=== PATIENT | male | born 1985 | race Caucasian/White ===

== ENCOUNTER 2019-09-28 15:25 | Emergency (ER) | payer OTHER ==
[~2019-09-28] VITALS: Ht 175.3 cm; Wt 70.4 kg
--- OUTSIDE RECORDS SUMMARY | ~2019-09-28 | XMS | Encounter Summary ---
Demographics + + + | Address | [address] | | | [place] [address] | + + + | Home Phone | | + + + | Preferred Language | Unknown | + + + | Marital Status | Single | + + + | Rastafari Affiliation | [id number] | + + + | Race | Unknown | + + + | Ethnic Group | Unknown | + + + Author + + + | Author | [facility] | | | and [place] | + + + | Organization | [facility] | | | and [place] | + + + | Address | Unknown | + + + | Phone | Unavailable | + + + Support + + +---------+ + | Name | Relationship | Address | Phone | + + +---------+ + | Mayelin Burden | ECON | Unknown | | + + +---------+ + Care Team Providers + +------+ + | Care Material Analyst Name | Role | Phone | + +------+ + PCP | Unavailable | + +------+ + Encounter Details +--------+ + + + + | Date | Type | Department | Care Team | Description | +--------+ + + + + | 06/24/ | Imaging | [facility] | Provider, | | | 2019 | Exam | [facility] | [facility] [address] | | | | | IMAG[facility] [address] | [address] | | | | | [place] | [place] [address] | | | | | [place] [address] | | | | | | [phone] | | | +--------+ + + + + Social History + +-------+ +--------+------+ | Tobacco Use | Types | Packs/Day | Years | Date | | | | | Used | | + +-------+ +--------+------+ | Never Assessed | | | | | + +-------+ +--------+------+ + + + | Sex Assigned at | Date Recorded | | | | + + + | Not on file | | + + + documented as of this encounter Plan of Treatment Not on filedocumented as of this encounter Procedures + +--------+ + + + | Procedure Name | Priori | Date/Time | Associated Diagnosis | Comments | | | ty | | | | + +--------+ + + + | ECHO COMPLETE | Routin | 04/11/2016 | | Results for this | | | e | 12:00 AM | | procedure are in the | | | | PST | | results section. | + +--------+ + + + documented in this encounter Results ECHO Complete (04/11/2016 12:00 AM PST) + + | Specimen | + + | | + + + + + | Narrative | Performed At | + + + | External films for comparison only | [facility] | | | | | No results will be in the chart. | | + + + + +---------+ + + | Performing | Address | City/State/Zipcode | Phone Number | | Organization | | | | + +---------+ + + | [facility] | | | | + +---------+ + + documented in this encounter Visit Diagnoses Not on filedocumented in this encounter"
--- OUTSIDE RECORDS SUMMARY | ~2019-09-28 | XMS | Encounter Summary ---
Demographics + + + | Address | [address] | | | [place] [address] | + + + | Home Phone | | + + + | Preferred Language | Unknown | + + + | Marital Status | Single | + + + | Anabaptism Affiliation | 1013 | + + + | Race | Unknown | + + + | Ethnic Group | Unknown | + + + Author + + + | Author | [facility] | | | and [place] | + + + | Organization | [facility] | | | and [...] Team Providers + +------+ + | Care Hide And Skin Processing Worker Name | Role | Phone | + +------+ + PCP | Unavailable | + +------+ + Encounter Details +--------+ + + + + | Date | Type | Department | Care Team | Description | +--------+ + + + + | 04/11/ | Orders Only | [facility] | Tomas White, | | | 2016 | | CONVERSION [address] | MD [address] | | | | | [place] | [place] | | | | | [place] | [address] | | | | | [id number] | | | | | | [phone] | | | +--------+ + + + [...] + +--------+ + + + | ECHO INTERPRETATION | Routin | 04/11/2016 | | Results for this | | OF OUTSIDE FILMS | e | 1:23 PM | | procedure are in the | | | | PST | | results section. | + +--------+ + + + documented in this encounter Results ECHO Interpretation of Outside Films (04/11/2016 1:23 PM PST) + + | Specimen | + + | | + + + + + | Impressions | Performed At | + + + | 1. The left ventricle is normal in size, wall thickness and systolic | | | function EF 60--65%. 2. The right ventricle is moderately enlarged | | | with normal systolic function. 3. Small highly mobile echodense | | | oscilating mass attached to the septal leaflet of the tricuspid valve | | | consistent with vegetation. Severe eccentric tricuspid regurgitation | | | with mild pulmonary hypertension. 4. There is a trivial pericardial | | | effusion present. Patient has history of Tricuspid vegetation on | | | October of 2015, this appears to be smaller however clinical | | | correlation with blood cultures and repeat echo after appropriate | | | course of treatment is recommended. | | + + + + + + | Narrative | Performed At | + + + | Patient Name: YANG BURDEN Date of : 1985 | | | Performing Physician: Wei Combs | | | | | | ------REPORT ADDENDED------ INDICATIONS Bacteremia, | | | murmur CONCLUSIONS 1. The left ventricle is normal | | | in size, wall thickness and systolic function EF 60--65%. 2. The | | | right ventricle is moderately enlarged with normal systolic function. | | | 3. Small highly mobile echodense oscilating mass attached to the | | | septal leaflet of the tricuspid valve consistent with vegetation. | | | Severe eccentric tricuspid regurgitation with mild pulmonary | | | hypertension. 4. There is a trivial pericardial effusion present. 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 FINDINGS -------- ECG rhythm: Sinus rhythm. Study: | | | A 2-dimensional transthoracic echocardiogram with m-mode, spectral | | | and color flow Doppler was perfomed. Study: This was a technically | | | adequate study. Left Ventricle: Overall left ventricular systolic | | | function is normal with, an EF between 60 - 65 %. Left Ventricle: The | | | left ventricle cavity size is normal. Left Ventricle: Left | | | ventricular wall thickness is normal. Left Ventricle: No regional | | | wall motion abnormalities. Right Ventricle: The right ventricle is | | | moderately enlarged. Right Ventricle: The right ventricular systolic | | | function is normal. Left Atrium: The left atrial size is normal. | | | Right Atrium: The right atrium is mildly enlarged. Aortic Valve: The | | | aortic valve is trileaflet and appears structurally normal. Aortic | | | Valve: There is no evidence of aortic regurgitation. Aortic Valve: | | | There is no evidence of aortic stenosis. Mitral Valve: The mitral | | | valve is normal. Mitral Valve: There is trace mitral regurgitation. | | | Tricuspid Valve: Severe tricuspid regurgitation present. Tricuspid | | | Valve: There is mild pulmonary hypertension. Tricuspid Valve: The | | | right ventricular systolic pressure (pulmonary artery systolic | | | pressure), as measured by Doppler, is 45.93mmHg. Tricuspid Valve: | | | Small highly mobile echodense oscilating mass attached to the septal | | | leaflet of the tricuspid valve consistent with vegetation. Pulmonic | | | Valve: The pulmonic valve is normal. Pulmonic Valve: Trace pulmonic | | | regurgitation. Pericardium: There is a trivial pericardial effusion | | | present. Pericardium: No pleural effusion seen. IVC/Hepatic Veins: | | | The IVC is normal size (1.5-2.5cm) and collapses >50% with sniff, | | | consistent with central venous pressures of 5-10mmHg. Aorta: The | | | aortic root and ascending aorta are within normal limits. | | | MEASUREMENTS Ao asc: 3.05 cm Ao Diam: 3.26 cm | | | Ao sinus: 3.[address] junct: 2.55 cm IVC: 2.13 cm LA | | | Diam: 3.30 cm LA Major: 4.50 cm EDV(Teich): 115.58 ml | | | IVSd: 0.54 cm LVIDd: 4.95 cm LVPWd: 0.72 cm LVOT Area: | | | 3.72 cm2 LVOT Diam: 2.17 cm %FS: 33.94 % EF(Teich): 62.64 | | | % ESV(Teich): 43.17 ml LVIDs: 3.27 cm SV(Teich): 72.40 ml | | | RA Major: 5.38 cm RV Major: 8.18 cm RV Minor: 4.34 cm | | | RVIDd: 3.92 cm LVEF MOD A2C: 66.27 % SV MOD A2C: 69.71 ml | | | LVEF MOD A4C: 58.01 % SV MOD A4C: 57.63 ml EF Biplane: | | | 62.53 % LVEDV MOD BP: 102.49 ml LVESV MOD BP: 38.39 ml LVEDV | | | MOD A2C: 105.18 ml LVLd A2C: 8.45 cm LVEDV MOD A4C: 99.35 | | | ml LVLd A4C: 8.39 cm LVESV MOD A2C: 35.47 ml LVLs A2C: | | | 6.90 cm LVESV MOD A4C: 41.71 ml LVLs A4C: 6.89 cm LAESV(A-L): | | | 33.72 ml LAESV Index (A-L): 18.73 ml/m2 LAAs A2C: 12.96 | | | cm2 LAESV A-L A2C: 33.43 ml LALs A2C: 4.26 cm LAAs A4C: | | | 13.07 cm2 LAESV A-L A4C: 30.72 ml LALs A4C: 4.72 cm RAAs: | | | 20.26 cm2 RAESV A-L: 64.77 ml RAESV MOD: 60.16 ml RALs: | | | 5.38 cm TAPSE: 2.60 cm AV maxP.44 mmHg AV meanP.97 | | | mmHg AV Vmax: 1.16 m/s AV Vmean: 0.81 m/s AV VTI: 20.70 | | | cm MAGUI Vmax: 3.17 cm2 MAGUI (VTI): 3.19 cm2 AVAI Vmax: 0.00 | | | cm2/m2 AVAI (VTI): 0.00 cm2/m2 LVOT maxP.93 mmHg LVOT | | | meanP.02 mmHg LVSI Dopp: 36.76 ml/m2 LVSV Dopp: 66.18 | | | ml LVOT Vmax: 0.99 m/s LVOT Vmean: 0.65 m/s LVOT VTI: | | | 17.74 cm MV A Reid: 0.48 m/s MV DecT: 177.04 ms MV E Reid: | | | 0.81 m/s MV E/A Ratio: 1.69 MV PHT: 51.34 ms MVA By PHT: | | | 4.28 cm2 Septal e': 0.12 m/s Septal E/e': 6.30 Lateral e': | | | 0.19 m/s Lateral E/e': 4.14 RAP: 5 mmHg RVSP: 45.92 mmHg | | | TR maxP.92 mmHg TR Vmax: 3.19 m/s Journeyman Pipefitter: JOLIE | | | Authenticated by: [facility] Report Date/Time: 04-11-2016 | | | 20:44:47 | | + + + + + | Procedure Note | + + | Elmer, Rad Conversion - 11/08/2018 7:43 PM PDT Patient Name: Kim BURDEN of | | : 1985 Performing Physician: Wei | | [place] ------REPORT | | ADDENDED------INDICATIONS Bacteremia, murmur CONCLUSIONS 1. The left | | ventricle is normal in size, wall thickness and systolic function EF 60--65%.2. The | | right ventricle is moderately enlarged with normal systolic function.3. Small highly | | mobile echodense oscilating mass attached to the septal leaflet of the tricuspid valve | | consistent with vegetation. Severe eccentric tricuspid regurgitation with mild pulmonary | | hypertension.4. There is a trivial pericardial effusion present. Patient has history | | of Tricuspid vegetation on October of 2015, this appears to be smaller however clinical | | correlation with blood cultures and repeat echo after appropriate course of treatment is | | recommended. FINDINGS--------ECG rhythm: Sinus rhythm.Study: A 2-dimensional | | transthoracic echocardiogram with m-mode, spectral and color flow Doppler was | | perfomed.Study: This was a technically adequate study.Left Ventricle: Overall left | | ventricular systolic function is normal with, an EF between 60 - 65 %.Left Ventricle: | | The left ventricle cavity size is normal.Left Ventricle: Left ventricular wall thickness | | is normal.Left Ventricle: No regional wall motion abnormalities.Right Ventricle: The | | right ventricle is moderately enlarged.Right Ventricle: The right ventricular systolic | | function is normal.Left Atrium: The left atrial size is normal.Right Atrium: The right | | atrium is mildly enlarged.Aortic Valve: The aortic valve is trileaflet and appears | | structurally normal.Aortic Valve: There is no evidence of aortic regurgitation.Aortic | | Valve: There is no evidence of aortic stenosis.Mitral Valve: The mitral valve is | | normal.Mitral Valve: There is trace mitral regurgitation.Tricuspid Valve: Severe | | tricuspid regurgitation present.Tricuspid Valve: There is mild pulmonary | | hypertension.Tricuspid Valve: The right ventricular systolic pressure (pulmonary artery | | systolic pressure), as measured by Doppler, is 45.93mmHg.Tricuspid Valve: Small highly | | mobile echodense oscilating mass attached to the septal leaflet of the tricuspid valve | | consistent with vegetation.Pulmonic Valve: The pulmonic valve is normal.Pulmonic Valve: | | Trace pulmonic regurgitation.Pericardium: There is a trivial pericardial effusion | | present.Pericardium: No pleural effusion seen.IVC/Hepatic Veins: The IVC is normal size | | (1.5-2.5cm) and collapses >50% with sniff, consistent with central venous pressures of | | 5-10mmHg.Aorta: The aortic root and ascending aorta are within normal limits. | | MEASUREMENTS Ao asc: 3.05 cmAo Diam: 3.26 cmAo sinus: 3.[address] | | junct: 2.55 cmIVC: 2.13 cmLA Diam: 3.30 cmLA Major: 4.50 cmEDV(Teich): 115.58 | | mlIVSd: 0.54 cmLVIDd: 4.95 cmLVPWd: 0.72 cmLVOT Area: 3.72 [id number] Diam: 2.17 | | cm%FS: 33.94 %EF(Teich): 62.64 %ESV(Teich): 43.17 mlLVIDs: 3.27 cmSV(Teich): | | 72.40 mlRA Major: 5.38 cmRV Major: 8.18 cmRV Minor: 4.34 cmRVIDd: 3.92 cmLVEF | | MOD A2C: 66.27 %SV MOD A2C: 69.71 mlLVEF MOD A4C: 58.01 %SV MOD A4C: 57.63 mlEF | | Biplane: 62.53 %LVEDV MOD BP: 102.49 mlLVESV MOD BP: 38.39 mlLVEDV MOD A2C: | | 105.18 mlLVLd A2C: 8.45 cmLVEDV MOD A4C: 99.35 mlLVLd A4C: 8.39 cmLVESV MOD A2C: | | 35.47 mlLVLs A2C: 6.90 cmLVESV MOD A4C: 41.71 mlLVLs A4C: 6.89 cmLAESV(A-L): | | 33.72 mlLAESV Index (A-L): 18.73 ml/m2LAAs A2C: 12.96 [id number] A-L A2C: 33.43 | | mlLALs A2C: 4.26 cmLAAs A4C: 13.07 [id number] A-L A4C: 30.72 mlLALs A4C: 4.72 | | cmRAAs: 20.26 [id number] A-L: 64.77 mlRAESV MOD: 60.16 mlRALs: 5.38 cmTAPSE: | | 2.60 cmAV maxP.44 mmHgAV meanP.97 mmHgAV Vmax: 1.16 m/Sofiya Vmean: 0.81 | | m/Sofiya VTI: 20.70 cmAVA Vmax: 3.17 cm2AVA (VTI): 3.19 [id number] Vmax: 0.00 | | cm2/m2AVAI (VTI): 0.00 cm2/m2LVOT maxP.93 mmHgLVOT meanP.02 mmHgLVSI Dopp: | | 36.76 ml/m2LVSV Dopp: 66.18 mlLVOT Vmax: 0.99 m/sLVOT Vmean: 0.65 m/sLVOT VTI: | | 17.74 cmMV A Reid: 0.48 m/sMV DecT: 177.04 msMV E Reid: 0.81 m/sMV E/A Ratio: | | 1.69MV PHT: 51.34 msMVA By PHT: 4.28 [id number] e': 0.12 m/sSeptal E/e': | | 6.30Lateral e': 0.19 m/sLateral E/e': 4.14RAP: 5 mmHgRVSP: 45.92 mmHgTR maxPG: | | 40.92 mmHgTR Vmax: 3.19 m/s Journeyman Pipefitter: Miloted by: Wei Graham | | Date/Time: 04-11-2016 20:44:47 IMPRESSION: 1. The left ventricle is normal in size, wall | | thickness and systolic function EF 60--65%.2. The right ventricle is moderately | | enlarged with normal systolic function.3. Small highly mobile echodense oscilating mass | | attached to the septal leaflet of the tricuspid valve consistent with vegetation. Severe | | eccentric tricuspid regurgitation with mild pulmonary hypertension.4. There is a | | trivial pericardial effusion present. Patient has history of Tricuspid vegetation on | | October of 2015, this appears to be smaller however clinical correlation with blood | | cultures and repeat echo after appropriate course of treatment is recommended. | |EDV(Teich): 115.58 ml | |IVSd: 0.54 cm | |LVIDd: 4.95 cm | |LVPWd: 0.72 cm | |LVOT Area: 3.72 cm2 | |LVOT Diam: 2.17 cm | |%FS: 33.94 % | |EF(Teich): 62.64 % | |ESV(Teich): 43.17 ml | |LVIDs: 3.27 cm | |SV(Teich): 72.40 ml | |RA Major: 5.38 cm | |RV Major: 8.18 cm | |RV Minor: 4.34 cm | |RVIDd: 3.92 cm | |LVEF MOD A2C: 66.27 % | |SV MOD A2C: 69.71 ml | |LVEF MOD A4C: 58.01 % | |SV MOD A4C: 57.63 ml | |EF Biplane: 62.53 % | |LVEDV MOD BP: 102.49 ml | |LVESV MOD BP: 38.39 ml | |LVEDV MOD A2C: 105.18 ml | |LVLd A2C: 8.45 cm | |LVEDV MOD A4C: 99.35 ml | |LVLd A4C: 8.39 cm | |LVESV MOD A2C: 35.47 ml | |LVLs A2C: 6.90 cm | |LVESV MOD A4C: 41.71 ml | |LVLs A4C: 6.89 cm | |LAESV(A-L): 33.72 ml | |LAESV Index (A-L): 18.73 ml/m2 | |LAAs A2C: 12.96 cm2 | |LAESV A-L A2C: 33.43 ml | |LALs A2C: 4.26 cm | |LAAs A4C: 13.07 cm2 | |LAESV A-L A4C: 30.72 ml | |LALs A4C: 4.72 cm | |RAAs: 20.26 cm2 | |RAESV A-L: 64.77 ml | |RAESV MOD: 60.16 ml | |RALs: 5.38 cm | |TAPSE: 2.60 cm | |AV maxP.44 mmHg | |AV meanP.97 mmHg | |AV Vmax: 1.16 m/s | |AV Vmean: 0.81 m/s | |AV VTI: 20.70 cm | |MAGUI Vmax: 3.17 cm2 | |MAGUI (VTI): 3.19 cm2 | |AVAI Vmax: 0.00 cm2/m2 | |AVAI (VTI): 0.00 cm2/m2 | |LVOT maxP.93 mmHg | |LVOT meanP.02 mmHg | |LVSI Dopp: 36.76 ml/m2 | |LVSV Dopp: 66.18 ml | |LVOT Vmax: 0.99 m/s | |LVOT Vmean: 0.65 m/s | |LVOT VTI: 17.74 cm | |MV A Reid: 0.48 m/s | |MV DecT: 177.04 ms | |MV E Erid: 0.81 m/s | |MV E/A Ratio: 1.69 | |MV PHT: 51.34 ms | |MVA By PHT: 4.28 cm2 | |Septal e': 0.12 m/s | |Septal E/e': 6.30 | |Lateral e': 0.19 m/s | |Lateral E/e': 4.14 | |RAP: 5 mmHg | |RVSP: 45.92 mmHg | |TR maxP.92 mmHg | |TR Vmax: 3.19 m/s | | | |Journeyman Pipefitter: JOLIE | |Authenticated by: Wei Combs | |Report Date/Time: 04-11-2016 20:44:47 | | | |IMPRESSION: | |1. The left ventricle is normal in size, wall thickness and systolic function EF 60--65%. | |2. The right ventricle is moderately enlarged with normal systolic function. | |3. Small highly mobile echodense oscilating mass attached to the septal leaflet of the tric uspid valve consistent with vegetation. Severe eccentric tricuspid regurgitation with mild p ulmonary hypertension. | |4. There is a trivial pericardial effusion present. Patient has history of Tricuspid veget ation on October of 2015, this appears to be smaller however clinical correlation with blood cultures and repeat echo after appropriate course of treatment is | |recommended. | + + documented in this encounter Visit Diagnoses Not on filedocumented in this encounter"
--- OUTSIDE RECORDS SUMMARY | ~2019-09-28 | XMS | Encounter Summary ---
Demographics + + + | Address | [address] | | | [place] [address] | + + + | Home Phone | | + + + | Preferred Language | Unknown | + + + | Marital Status | Single | + + + | Hindu Affiliation | 1013 | + + + | Race | Unknown | + + + | Ethnic Group | Unknown | + + + Author + + + | Author | [facility] | | | and [place] | + + + | Organization | [facility] | | | and [place] | + + + | Address | Unknown | + + + | Phone | Unavailable | + + + Support + + +---------+ + | Name | Relationship | Address | Phone | + + +---------+ + | Mayelin Ridley | ECON | Unknown | | + + +---------+ + Care Team Providers + +------+ + | Care Animal Bounty Hunter Name | Role | Phone | + +------+ + PCP | Unavailable | + +------+ + Encounter Details +--------+ + + + + | Date | Type | Department | Care Team | Description | +--------+ + + + + | 09/30/ | Hospital | [facility] | Ivan Munoz | Unknown cause of | | 2016 - | Encounter | [facility] | MD Laura [address] | injury; Acute septic | | | | CLINICAL DECISION | [address] [place], [place] | pulmonary embolism | | 11/12/ | | [address] [facility] | [id number] | without acute cor | | 2016 | | [place] | | pulmonale ([facility]); | | | | [phone] | | Heroin abuse; | | | | [phone] | | Hyposmolality and/or | | | | | | hyponatremia; | | | | | | Methamphetamine | | | | | | abuse; Moderate | | | | | | protein-calorie | | | | | | malnutrition ([facility]); | | | | | | Thrombocytopenia | | | | | | ([facility]); Tobacco | | | | | | abuse; Toxic | | | | | | metabolic | | | | | | encephalopathy; | | | | | | Acute septic | | | | | | pulmonary embolism | | | | | | with acute cor | | | | | | pulmonale ([facility]); | | | | | | Leukocytosis, | | | | | | unspecified type; | | | | | | Sepsis, due to | | | | | | unspecified organism | | | | | | ([facility]); | | | | | | Hallucination, | | | | | | visual; Pain; | | | | | | Pleural effusion, | | | | | | right; Sepsis due to | | | | | | Methicillin | | | | | | susceptible | | | | | | Staphylococcus | | | | | | aureus ([facility]); MARCEL | | | | | | (acute kidney | | | | | | injury) ([facility]); | | | | | | Pleural effusion on | | | | | | left; Acute | | | | | | respiratory failure | | | | | | with hypoxia ([facility]); | | | | | | Acute bacterial | | | | | | endocarditis | +--------+ + + + + Social [...] + + documented as of this encounter Last Filed Vital Signs + + + + + | Vital Sign | Reading | Time Taken | Comments | + + + + + | Blood Pressure | 142/98 | 11/13/2015 7:56 AM | | | | | PDT | | + + + + + | Pulse | 112 | 11/13/2015 7:56 AM | | | | | PDT | | + + + + + | Temperature | 36.4 C (97.5 F) | 11/13/2015 7:56 AM | | | | | PDT | | + + + + + | Respiratory Rate | 18 | 11/13/2015 7:56 AM | | | | | PDT | | + + + + + | Oxygen Saturation | - | - | | + + + + + | Inhaled Oxygen | - | - | | | Concentration | | | | + + + + + | Weight | 59 kg (130 lb 1.1 | 11/13/2015 7:56 AM | | | | oz) | PDT | | + + + + + | Height | 170.2 cm (5' 7") | 11/13/2015 7:56 AM | | | | | PDT | | + + + + + | Body Mass Index | 20.37 | 11/13/2015 7:56 AM | | | | | PDT | | + + + + + documented in this encounter Discharge Summaries Balta Li MD - 11/13/2015 9:10 AM PDTFormatting of this note might be different from th e yuriy. Discharge Summaries by Balta Li MD at 11/13/15909 Author: Balta Li MD Service: (none) Author Type: Physician Filed: 11/13/15947 Date of Service: 11/13/15909 Status: Signed Bisque Brusher: Balta Li MD (Physician) [facility] Service: Hospitalist Physician Discharge Summary Patient ID: Yang Ridley [id number] 30 y.o. 1985 Admit date: 10/01/2015 Discharge date and time: 11/13/2015 Admitting Physician: Carly Thomas DO Discharge Physician: Balta Li MD Consultants: Treatment Team: Consulting Physician: Gonzalez Bhardwaj MD Consulting Physician: Femi Vaughan MD Consulting Physician: Rodolfo Salguero MD Consulting Physician: Gill Way MD Admitting Provider: Carly Thomas DO Discharge Diagnoses: Principal Problem: Sepsis (HCC) Active Problems: Hyposmolality and/or hyponatremia MARCEL (acute kidney injury) (HCC) Leucocytosis Thrombocytopenia (HCC) Toxic metabolic encephalopathy Acute respiratory failure with hypoxia (HCC) Heroin abuse Methamphetamine abuse Tobacco abuse Acute septic pulmonary embolism (HCC) Acute infective endocarditis Moderate protein-calorie malnutrition (HCC) Hallucination, visual Severe protein-calorie malnutrition (HCC) Hoarseness The first problem in the assessment and plan below is a primary discharge diagnosis unless specifically stated otherwise. 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 Status post intubation. Initially needing pressors also had presentation with sev ere hyponatremia and worsening renal failure. Later on transferred to the medical floor but had more decompensation and had to be transferred back to ICU with need of dialysis and rein tubation. He finally stabilized and returned to hospitalists. He finished his course with IV methicillin for 42 days. Repeat echo shows stable vegetation mobile on the tricuspid valve. Patient was followed by ID throughout the hospital course. He also had significant agitation and suicidal ideation/hallucinations and was treated with IV Haldol, Seroquel, high doses. Also was treated with fentanyl and morphine for his withdr awal. He was seen by psychiatric. Patient improved in terms of his agitation. Denies any mor e suicidal thoughts. Psychiatry has cleared patient for discharge. Currently is on Seroquel and by mouth twice a day and will be so slowly tapering off in the next 2 weeks. He will be going to his sister's house and plans for outpatient physical therapy and drug rehabilitatio n. Does not need anymore clonazepam oral opiates. He has been counseled extensively about dr dread abrams and appears very motivated. Also , patient had hoarseness of voice after intubation, but he was everted by ENT that is negative for cord paralysis and patient improved significantly from that. He was seen by cardiothoracic surgery, Dr. Arias, the recommendation for medical manageme nt. Currently, patient will follow up with him in the clinic in a few weeks. I also discusse d the case with Dr. Darling from cardiology, who has graciously agreed to follow the patient in the clinic. Currently, patient is on metoprolol 200 mg by mouth twice a day with some tachy cardia of 100-105. Will continue with same and patient has been informed about returning theresa k to ER if any signs of congestive heart failure with shortness of breath, leg swelling, or fevers with cough. Patient will also follow with Dr. Way from [place]. Condition at discharge: stable as dictated above Primary discharge diagnosis: infective endocarditis of the tricuspid valve Disposition: * home Follow up: Gill Way MD [address] [facility] [id number] Schedule an appointment as soon as possible for a visit Quentin Darling MD [address] [facility] [address] Schedule an appointment as soon as possible for a visit Blanca Arias MD [address] [facility] [address] Schedule an appointment as soon as possible for a visit in 2 weeks Dictation and program proposals coordinator or software, Social Media Simplified, used which may contain error for similar s ounding words even after review. Personal communication requested for any clarification. Discharge Vitals: Filed Vitals: 11/12/15 1911 11/12/15 2349 11/13/15 0357 11/13/15 0754 BP: 127/82 113/74 130/92 142/98 Pulse: 119 103 93 112 Temp: 98.7 F (37.1 C) 98.2 F (36.8 C) 97.5 F (36.4 C) TempSrc: Oral Oral Oral Oral Resp: 18 18 Height: Weight: 59 kg (130 lb 1.1 oz) SpO2: 99% 99% 97% 100% Discharge Exam: GeneraPoorly nourishedhed. Psych: Alert and oriented x 3. Calm, cooperative. Cardiovascular: Regular rate and rhythm, systolic murmurs, no thrills. Normal PMI. Respiratory: Clear to auscultation, no wheezing or crackles, breathing non labored. Gastrointestinal: Soft, non-tender, non-distended, positive bowel sounds. No HSM. Musculoskeletal: left PICC line No edema in bilateral lower extremities. No joint swelling . Skin: Warm and dry, no rashes. Neck: No JVD, Trachea midline. Neurological: Non focal. Motor grossly intact. Secondary Discharge Diagnoses AND Other Medical History: Past Medical History Diagnosis Date Illicit drug use, continuous Past Surgical History Procedure Laterality Date Gum surgery A CHILD Significant Diagnostic Studies: Echo Cardiac Adult Limited 11/11/2015 Patient Name: YANG RIDLEY Date of : 1985 Performing Physician: Kitty Leger MD INDICATIONS f/u endocarditis CONCLUSIONS 1. Resti ng tachycardia (HR>100bpm). 2. A limited 2-dimensional transthoracic echocardiogram with mendez ited spectral and color flow Doppler was performed. 3. This was a technically adequate derrek dy. 4. Overall left ventricular systolic function is normal with, an EF between 65 - 70 %. 5 . The left ventricle cavity size is normal. 6. There is mild concentric left ventricular hyp ertrophy. 7. The right ventricle is normal in size. 8. The aortic valve is trileaflet, and a ppears anatomically normal. No aortic stenosis or regurgitation. 9. Normal appearing mitral valve. 10. There is trace mitral regurgitation. 11. Severe tricuspid regurgitation present. 12. Large, mobile vegetation attached to the septal tricuspid valve leaflet. 13. Pulmonic v alve appears structurally normal. 14. There is no pericardial effusion. 15. The IVC was not well visualized. FINDINGS -------- ECG rhythm: Resting tachycardia (HR>100bpm). Study: A li mited 2-dimensional transthoracic echocardiogram with limited spectral and color flow Dopple r was performed. Study: This was a technically adequate study. Left Ventricle: Overall le ft ventricular systolic function is normal with, an EF between 65 - 70 %. Left Ventricle: T he left ventricle cavity size is normal. Left Ventricle: There is mild concentric left vent ricular hypertrophy. Right Ventricle: The right ventricle is normal in size. Aortic Valve: T he aortic valve is trileaflet, and appears anatomically normal. No aortic stenosis or regurg itation. Mitral Valve: Normal appearing mitral valve. Mitral Valve: There is trace mitral regurgitation. Tricuspid Valve: Severe tricuspid regurgitation present. Tricuspid Valve: La rge, mobile vegetation attached to the septal tricuspid valve leaflet. Pulmonic Valve: Pulmo sherif valve appears structurally normal. Pericardium: There is no pericardial effusion. IVC/He patic Veins: The IVC was not well visualized. MEASUREMENTS EDV(Teich): 104. 70 ml IVSd: 1.10 cm LVIDd: 4.74 cm LVPWd: 1.11 cm %FS: 31.17 % EF(Teich): 58.88 % ESV(Teich): 43.05 ml IVSs: 1.27 cm LVIDs: 3.26 cm LVPWs: 1.64 cm SV(Teich): 61.65 ml TR maxP.68 mmHg TR Vmax: 3.22 m/s Under Trimmer: RAFAEL Authenticated by: Jarred carter MD Report Date/Time: 11-11-2015 17:42:18 11/11/2015 1. Resting tachycardia (HR>100bpm). 2. A limited 2-dimensional transthoracic ec hocardiogram with limited spectral and color flow Doppler was performed. 3. This was a alpa hnically adequate study. 4. Overall left ventricular systolic function is normal with, an EF between 65 - 70 %. 5. The left ventricle cavity size is normal. 6. There is mild concentric left ventricular hypertrophy. 7. The right ventricle is normal in size. 8. The aortic valve is trileaflet, and appears anatomically normal. No aortic stenosis or regurgitation. 9. Nor mal appearing mitral valve. 10. There is trace mitral regurgitation. 11. Severe tricuspid r egurgitation present. 12. Large, mobile vegetation attached to the septal tricuspid valve le aflet. 13. Pulmonic valve appears structurally normal. 14. There is no pericardial effusion. 15. The IVC was not well visualized. LABS: CBC: Lab Results Component Value Date WBC 13.43* 11/09/2015 RBC 2.63* 11/09/2015 HGB 7.5* 11/09/2015 HCT 23.4* 11/09/2015 MCV 89.0 11/09/2015 MCH 28.7 11/09/2015 MCHC 32.2 11/09/2015 RDW 55.6* 11/09/2015 PLT 460* 11/09/2015 MPV 7.0 11/09/2015 DIFFTYPE AUTOMATED 11/09/2015 CMP: Lab Results Component Value Date NA 140 11/09/2015 K 4.1 11/09/2015 CL 105 11/09/2015 CO2 27 11/09/2015 ANIONGAP 12 11/09/2015 GLUF 91 11/09/2015 BUN 7* 11/09/2015 CREATININE 0.7 11/09/2015 BCR 10 11/09/2015 CA 8.8 11/09/2015 PROT 6.7 10/31/2015 ALB 1.5* 10/31/2015 GLOB 5.2* 10/31/2015 BILITOT 0.9 10/31/2015 ALP 71 10/31/2015 AST 15 10/31/2015 ALT 20 10/31/2015 EGFR >60 11/09/2015 Albumin: Lab Results Component Value Date ALB 1.5* 10/31/2015 Magnesium: Lab Results Component Value Date MG 1.8 11/02/2015 Phosphorus: Lab Results Component Value Date PHOS 4.7 11/02/2015 PT/INR: Lab Results Component Value Date PROTIME DUPLICATE ORDER 10/19/2015 INR 1.1 10/19/2015 Troponin: Lab Results Component Value Date TROPONINI 0.064 10/19/2015 Last 3 Troponin: Lab Results Component Value Date TROPONINI 0.064 10/19/2015 TSH: Lab Results Component Value Date TSH 0.75 10/03/2015 Patient Instructions: Medication List START taking these medications clonazePAM 0.5 MG tablet QTY: 20 tablet Refills: 0 Commonly known as: KlonoPIN Take 1 tablet by mouth 2 (two) times daily as needed. metoprolol 100 MG tablet QTY: 120 tablet Refills: 0 Commonly known as: LOPRESSOR Take 2 tablets by mouth 2 (two) times daily. QUEtiapine 25 MG tablet QTY: 60 tablet Refills: 0 Commonly known as: SEROquel Take 4 tablets by mouth 2 (two) times daily. Take 100 mg twice a day for the next 4 days, t hen decrease to 50 mg twice a day for next 5 days, then decrease to 25 mg twice a day for ne xt 5 days and then can be stopped if doing well with agitation and anxiety. Where to Get Your Medications These are the prescriptions that you need to grape picker. You may get the following medications from any pharmacy - clonazePAM 0.5 MG tablet - metoprolol 100 MG tablet - QUEtiapine 25 MG tablet Activity: activity as tolerated Diet: Cardiac Diet Discharge took more than 35 minutes, to include final examination, discussion of admission, and preparation of prescriptions, instructions for ongoing care, follow up and dictation of summary. There are no Patient Instructions on file for this visit. Follow-up with PMD and other physicians as directed. Signed: Balta Li 11/13/2015 9:10 AM documented in this encou nter Progress Notes Conversion Transaction, Provider Unknown - 11/13/2015 9:57 AM PDTFormatting of this note m ight be different from the original. Nurse Progress Note by Mayelin Mendez RN at 11/13/15956 Author: Mayelin Mendez RN Service: (none) Author Type: Registered Nurse Filed: 11/13/1558 Date of Service: 11/13/15956 Status: Signed Bisque Brusher: Mayelin Mendez RN (Registered Nurse) Discharge instructions explained to patient and all questions answered. Pt prefers to take his own prescriptions to the pharmacy, originals sent with pt. Awaiting transportation with sister via personal vehicle. Mayelin Mendez RN onver patti Transaction, Provider Unknown - 11/13/2015 9:54 AM PDT Nurse Progress Note by Kaylee Holloway RN at 11/13/15953 Author: Kaylee Holloway RN Service: (none) Author Type: Registered Nurse Filed: 11/13/1555 Date of Service: 11/13/15953 Status: Signed Bisque Brusher: Kaylee Holloway RN (Registered Nurse) Pt discharged home with sister. Discharge instructions and prescriptions given. PICC line r emoved. Kaylee Holloway RN Gill Lowe MD - 11/13/2015 7:35 AM PDTFormatting of this note might be different from the or iginal. Progress Notes by Gill Way MD at 11/13/15734 Author: Gill Way MD Service: Infectious Disease Author Type: Physician Filed: 11/13/15817 Date of Service: 11/13/15734 Status: Signed Bisque Brusher: Gill Way MD (Physician) [facility] Service: Infectious Disease Progress Note Hospital Day: LOS: 43 days Post-Op Day: * No surgery found * SUBJECTIVE Reason for consult: Endocarditis Patient Summary: CC: Fever, chest pain and altered mental status From [facility] [employer] admission note on 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 male with significant history of tobacco and drug abuse using daily heroin and methamphetamine, also on Suboxone. He initially presented to [facility] for progressive weakness, lethargy, and ge neralized pain (mostly his chest, neck, back, knees, ankles and toes) for the past 7 days. H e noticed that his ankles and right knee were swollen but not warm or erythematous. Accordin g to his girlfriend, he has been feeling sick and febrile for the past week with poor PO int elisha. Yesterday, she noticed that he seemed like he was hallucinating and talking to himself. He was very weak today that she had to assist him to get into the car to go the the ED. Exam at OSH was significant for point tenderness at the area of the cervical spine and posi tive Kernig's sign. LP was performed to rule out meningitis. IV antibiotics started, ceftria xone 2 gm and vancomycin [address] head and C-spine x-ray performed, MRI attempted but patient decompensated and was intubated for respiratory failure and airway protection. Significant labs: Na 114 (1435 hrs), BUN 81, Crea 2.48, WBC 19.9, Hb 11.6, Plt 51, Tbili 3. 6, AST 188, ALT 155, LA 1.7. CSF: clear, colorless, WBC 0, RBC 3. Protein 31. Glucose 50. Culture no growth Blood cultures are reported to be growing GPCs at [facility] Transferred to [facility] for further care. MRI of brain and spine carried out with limited findi ngs due to non-contrast study. Evaluated by Nephrology, acute renal failure attributed to hemodynamics. Evaluated by Dr. Bhardwaj from orthopedics: Does not think patient has ankle septic joint and does not recomme nd surgical intervention. Echocardiogram showed moderate size mobile vegetation attached to the septal tricuspid valv e leaflet, moderate tricuspid regurgitation, moderate pulmonary hypertension with mildly enl arged right ventricle. Evaluated by CTS, surgery not recommended On 10/01, extubated On 10/02, he was transferred out of the ICU. On 10/04, patient had worsening mental status and also became tachypneic. He became more hy ponatremic with worsening renal function. Bilateral moderate sized pleural effusions were n oted on chest CT scan. Bedside ultrasound with bilateral pleural effusion, R>L. Left minimal and without echogenic ity suggestive of infectious pleural effusion. Left effusion is moderate with fibrin strands concerning for complicated/infectious pleural effusion. Right pig tail chest tube placed wi th purulent drainage. Head CT scan negative On 10/05, started on hemodialysis On October 08, left chest tube was placed. Reintubated on October 11. On 10/16-, patient was febrile to 101.4F. Blood cultures were sent. On 10/18, echocardiogram showed possible mobile vegetation at the posterior mitral valve leaf let along with known tricuspid valve vegetation. Right IJ hemodialysis catheter was placed. PICC was discontinued. He complained of abdominal pain and tenderness; CT scan was done salomon t showed mid to distal ileum and right colitis. On 10/19, transesophageal echocardiogram reported as showing no mitral vegetation with large, mobile vegetation at the tricuspid valve and severe tricuspid regurgitation. CT surgery ree valuated the patient; proceeding with medical management. Kidney biopsy done, c/w ATN, impro pina on continued nafcillin. Completed 6 weeks Nafcillin (11/11), baseline TTE shows persiste nt large tricuspid mobile echodensity and severe tricuspid regurge as last TTE. CTS aware, discussed with patient (Dr. Way) and need for f/u for future need of possible replacement. INTERVAL: Afebrile, VSS Finished IV nafcillin last night Slept well, excited to go home/sisters today Starting outpt drug rehab [place] Denies f/c/ns No soa, fong, orthopnea or edema No diarrhea No rash No issues with LUE PICC Scheduled Medications lidocaine Topical Daily metoprolol 200 mg Oral BID nafcillin 2 g Intravenous Q4H oxymetazoline 1 spray Each Nare Daily QUEtiapine 100 mg Oral BID sodium chloride 10 mL Intravenous 2 times per day Continuous Infusions PRN Medications acetaminophen, albuterol, aluminum-magnesium hydroxide-simethicone, benztropine mesylate, c lonazePAM, nvsnhqdoofDNAZU-ffetsr-rtlkausaj oral solution, haloperidol lactate, lip moisturi zer, LORazepam, morphine, morphine OR morphine OR morphine, ondansetron OR ondan setron, promethazine, simethicone, sodium chloride, sodium chloride, sodium chloride OBJECTIVE Vital Signs: BP 130/92 mmHg | Pulse 93 | Temp(Src) 98.2 F (36.8 C) (Oral) | Resp 18 | Ht 1.702 m (5' 7") | Wt 59 kg (130 lb 1.1 oz) | BMI 20.37 kg/m2 | SpO2 97% Temp: [97.5 F (36.4 C)-98.7 F (37.1 C)] 98.2 F (36.8 C) (11/12 356) BP: (113-134)/(74-94) 130/92 mmHg (11/12 356) Heart Rate: [93-119] 93 (11/12 356) Resp: [18-19] 18 (11/12 356) SpO2: [97 %-100 %] 97 % (11/12 356) Weight: [59 kg (130 lb 1.1 oz)] 59 kg (130 lb 1.1 oz) (11/12 356) Physical Exam Vitals reviewed. General: A&O, pleasant male, cooperative and in NAD H&N: no thrush ; conj not injected Lungs: CTAB CV: Normal rate, regular; apical systolic murmur present Abdomen: ND, NTTP Back: no spinous process pain cervical through lumbar Skin: No active rash; prior extensive rash at upper and lower extremities resolved/healing , livedo reticularis-type changes of both feet - no stigmata endocarditis MS: No synovitis/effusions of LE's or UE's Neurologic: Oriented x 3; generalized weakness noted Lines: LUE PICC - no adjacent erythema, induration, pain DATA CBC: Lab Results Component Value Date WBC 13.43* 11/09/2015 RBC 2.63* 11/09/2015 HGB 7.5* 11/09/2015 HCT 23.4* 11/09/2015 MCV 89.0 11/09/2015 MCH 28.7 11/09/2015 MCHC 32.2 11/09/2015 RDW 55.6* 11/09/2015 PLT 460* 11/09/2015 MPV 7.0 11/09/2015 DIFFTYPE AUTOMATED 11/09/2015 WBC: Lab Results Component Value Date WBC 13.43* 11/09/2015 NEUTABSMAN 8.12* 11/05/2015 NEUTROABS 10.89* 11/09/2015 NEUTROMAN 69 11/05/2015 LYMPHOABS 1.76 11/05/2015 LYMPHOMAN 15 11/05/2015 LYMPHSABS 1.19 11/09/2015 LYMPHOPCT 8.87 11/09/2015 MONOABSMAN 0.47 11/05/2015 MONOMAN 4 11/05/2015 MONOPCT 6.02 11/09/2015 EOSINOABS 1.06* 11/05/2015 EOSINOMAN 9 11/05/2015 EOSABS 0.41 11/09/2015 EOSPCT 3.06 11/09/2015 BASOSABS 0.13* 11/09/2015 BASOPCT 0.97 11/09/2015 PLTEST INCREASED 11/05/2015 BANDSPCT 3 11/05/2015 METAABS 0.26* 10/13/2015 METAPCT 1 10/13/2015 MYELOABS 0.17* 10/09/2015 MYELOPCT 1 10/09/2015 COMDIFF SLIDE SCANNED, AGREES WITH AUTOMATED RESULTS. 10/18/2015 CMP: Lab Results Component Value Date NA 140 11/09/2015 K 4.1 11/09/2015 CL 105 11/09/2015 CO2 27 11/09/2015 ANIONGAP 12 11/09/2015 GLUF 91 11/09/2015 BUN 7* 11/09/2015 CREATININE 0.7 11/09/2015 BCR 10 11/09/2015 CA 8.8 11/09/2015 PROT 6.7 10/31/2015 ALB 1.5* 10/31/2015 GLOB 5.2* 10/31/2015 BILITOT 0.9 10/31/2015 ALP 71 10/31/2015 AST 15 10/31/2015 ALT 20 10/31/2015 EGFR >60 11/09/2015 Lab Results Component Value Date CRP 1.9* 11/09/2015 Lab Results Component Value Date ESR 79* 11/09/2015 Microbiology data: 10/29 blood cultures with no growth 10/29 catheter tip culture with no growth 10/29 urine culture with less than 10,000 CFU per mL of gram-negative rods Radiology data: 10/01 TTE 1. LV size, wall thickness and systolic function are normal, with an EF of 60%. 2. The diastolic filling pattern indicates impaired relaxation consistent with mild dysfunc tion (Grade I). 3. The right ventricle is mildly enlarged, but right ventricular systolic function is dorothy l. 4. Moderate tricuspid regurgitation present. 5. There is moderate pulmonary hypertension. The right ventricular systolic pressure (p ulmonary artery systolic pressure), as measured by Doppler, is 50.27mmHg. 6. Moderate sized, mobile vegetation attached to the septal tricuspid valve leaflet. 11/10 TTE 1. Resting tachycardia (HR>100bpm). 2. A limited 2-dimensional transthoracic echocardiogram with limited spectral and color rayna w Doppler was performed. 3. This was a technically adequate study. 4. Overall left ventricular systolic function is normal with, an EF between 65 - 70 %. 5. The left ventricle cavity size is normal. 6. There is mild concentric left ventricular hypertrophy. 7. The right ventricle is normal in size. 8. The aortic valve is trileaflet, and appears anatomically normal. No aortic stenosis or r egurgitation. 9. Normal appearing mitral valve. 10. There is trace mitral regurgitation. 11. Severe tricuspid regurgitation present. 12. Large, mobile vegetation attached to the septal tricuspid valve leaflet. 13. Pulmonic valve appears structurally normal. 14. There is no pericardial effusion. 15. The IVC was not well visualized. 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 - 10/08 CT chest - continued pleural effusion on the left, chest tube placed and d/c'd. cx NG - 10/17, he was febrile so blood cultures repeated on 10/17 with no growth - 10/17 TTE - tricuspid valve vegetation, severe TR and a new mitral valve vegetation. ANITA showed no MV vegetation; Dr. Arias, CTS recommends to continue medical management. - 10/18 RUE PICC d/c'd on 10/18, catheter tip culture NG. Right IJ hemodialysis catheter remove d at this time. New PICC placed on 10/20 -When he became febrile, tachycardic and tachypneic on 10/29, antibiotics had been broadene d to IV vancomycin/Zosyn. No new blood culture growth. CXR shows stable findings. Mental st atus back to baseline. No new focus of infection. Transitioned back to IV nafcillin - 11/10 baseline TTE post-tx: persistent large mobile TV vegetation with severe TR, unchange d from last TTE 10/16 - CTS with recommendation for continued medical management - Make sure has f/u with CTS in few months given severe tricuspid regurge, instructed pt sh ould sx develop (FONG, PND, cough, edema) may be related to TR and also discussed need for ur gent reporting should systemic sx of infection arise, which he voiced understanding to -Finished 6 week course of IV nafcillin on 11/11 - Will see him back in ID clinic ~ 2 weeks - Provided contract information and instructed to call ID immediately should he develop any symptoms of recurrent IE or CHF - including fevers, chills, night sweats, dyspnea, orthopn ea, edema, back pain - which he voiced understanding to Acute hypoxemic respiratory failure - resolved Hallucinations - evaluated by psych, unrelated to nafcillin - resolved. MARCEL - / renal bx c/w ATN - resolved. Abnormal LFTs - resolved. Petechial/purpuric rash - probable ecthyma - resolved. IV drug use. Not candidate for outpatient IV abx. HIV, HCV and HBV serologies neg. Going to outpatient rehab following dc. Code Status: Full Code Gill Way MD 11/13/2015 onversio n Transaction, Provider Unknown - 11/13/2015 6:54 AM PDTFormatting of this note might be di fferent from the original. Nurse Progress Note by Apolonia Lamar RN at 11/13/15653 Author: Apolonia Lamar RN Service: (none) Author Type: Registered Nurse Filed: 11/13/15654 Date of Service: 11/13/15653 Status: Signed Bisque Brusher: Apolonia Lamar RN (Registered Nurse) Pt slept through the night. No barriers to discharge noticed. Continuing to monitor. Debo Lamar RN onver patti Transaction, Provider Unknown - 11/12/2015 6:42 PM PDT Nurse Progress Note by Kaylee Holloway RN at 11/12/151841 Author: Kaylee Holloway RN Service: (none) Author Type: Registered Nurse Filed: 11/12/151844 Date of Service: 11/12/151841 Status: Signed Bisque Brusher: Kaylee Holloway RN (Registered Nurse) Pt resting in bed quietly. Pt up walking around periodically throughout the day. No complai nts of pain. Pt hr is tachy but other VS stable. Pending dc tomorrow. Will continue to monit or. Kaylee Holloway RN Balta Mark MD - 11/12/2015 11:31 AM PDTFormatting of this note might be different from the origi nal. Progress Notes by Balta Li MD at 11/12/151130 Author: Balta Li MD Service: (none) Author Type: Physician Filed: 11/12/151133 Date of Service: 11/12/151130 Status: Signed Bisque Brusher: Balta Li MD (Physician) [facility] Service: Hospitalist Progress Note Hospital Day: LOS: 42 days Consultants: Treatment Team: Consulting Physician: Gonzalez Bhardwaj MD Consulting Physician: Femi Vaughan MD Consulting Physician: Rodolfo Salguero MD Consulting Physician: Gill Way MD Admitting Provider: Carly Thomas DO The first problem in assessment is the principal problem. Per Dr. Butterfield: 30-year-old male with past medical history of IV drug use including heroin, methamphetamine , who presented with weakness, was found to have infective endocarditis involving the tricus pid valve. Status post intubation. Initially needing pressors also had presentation with sev ere hyponatremia and worsening renal failure. Later on transferred to the medical floor but had more decompensation and had to be transferred back to ICU with need of dialysis and rein tubation. He finally stabilized and returned to hospitalists. He is continuing IV nafcillin for IE. He is not a candidate for PICC and couldn't be placed elsewhere. Now he is almost fi nished with abx, day 39 of . He has had sinus tachy, on metoprolol, otherwise hemodynamica lly stable. He has expressed suicidal ideation, hallucinations, anxiety. Psych has seen him. There is a plan to check into a rehab once he DC's home to sister's house. 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 CVT surgery eval'd and rec med management. Da . Dis cussed with ID about repeat echo. Will finish antibiotic course and monitor symptoms. From t hereon. Also will need CT surgery. Follow-up Sinus tachycardia Improved on metoprolol, 200 BID. Hallucinations, IVDA, anxiety, withdrawals Improved on Seroquel, Klonopin. Patient wants to try to taper medications as tolerated. On Klonopin to twice a day when necessary and Seroquel 100 twice a day. Currently patient denies any hallucinations, suicidal ideations or thoughts. Patient was se en by psychiatric. No more need of sitter or crisis evaluation. Toxic metabolic encephalopathy, sepsis, acute resp failure with hypoxia, ARF All sequelae of above and all improving at this point. Hoarseness & dysphagia Continue speech therapy. Was seen by ENT. No vocal cord paralysis Disposition: Home pending above. Code Status: Full Code Dictation and program proposals coordinator or software, Social Media Simplified, used which may contain error for similar s ounding words even after review. Personal communication requested for any clarification. SUBJECTIVE Events Overnight: *Overall stable He is very excited to go home. Denies any nausea, vomiti ng, shortness of breath. Did not need any Klonopin yesterday OBJECTIVE General: Well nourished. Psych: Alert and oriented x 3. Calm, cooperative. Cardiovascular: Regular rate and rhythm, no murmurs, no thrills. Normal PMI. Respiratory: Clear to auscultation, no wheezing or crackles, breathing non labored. Gastrointestinal: Soft, non-tender, non-distended, positive bowel sounds. No HSM. Musculoskeletal: No edema in bilateral lower extremities. No joint swelling. Neck: No JVD, Trachea midline. Neurological: Non focal. Motor grossly intact. PROBLEM LIST Principal Problem: Sepsis (HCC) Active Problems: Hyposmolality and/or hyponatremia MARCEL (acute kidney injury) (HCC) Leucocytosis Thrombocytopenia (HCC) Toxic metabolic encephalopathy Acute respiratory failure with hypoxia (HCC) Heroin abuse Methamphetamine abuse Tobacco abuse Acute septic pulmonary embolism (HCC) Acute infective endocarditis Moderate protein-calorie malnutrition (HCC) Hallucination, visual Severe protein-calorie malnutrition (HCC) Hoarseness PMH Past Medical History Diagnosis Date Illicit drug use, continuous HOME MEDICATIONS Prior to Admission medications Not on File DATA Vital Signs: BP 131/91 mmHg | Pulse 103 | Temp(Src) 97.5 F (36.4 C) (Oral) | Resp 18 | Ht 1.702 m (5 ' 7") | Wt 59.2 kg (130 lb 8.2 oz) | BMI 20.44 kg/m2 | SpO2 98% Filed Vitals: 11/11/15 2259 11/12/15 0321 11/12/15 0719 11/12/15 1121 BP: 115/77 137/95 134/93 131/91 Pulse: 98 97 109 103 Temp: 97.7 F (36.5 C) 97.8 F (36.6 C) 97.6 F (36.4 C) 97.5 F (36.4 C) TempSrc: Oral Oral Oral Oral Resp: 18 18 18 Height: Weight: 59.2 kg (130 lb 8.2 oz) SpO2: 99% 99% 99% 98% Intake/Output Summary (Last 24 hours) at 11/12/15 1131 Last data filed at 11/12/15 0719 Gross per 24 hour Intake 1080 ml Output 1250 ml Net -170 ml CBC: Lab Results Component Value Date WBC 13.43* 11/09/2015 RBC 2.63* 11/09/2015 HGB 7.5* 11/09/2015 HCT 23.4* 11/09/2015 MCV 89.0 11/09/2015 MCH 28.7 11/09/2015 MCHC 32.2 11/09/2015 RDW 55.6* 11/09/2015 PLT 460* 11/09/2015 MPV 7.0 11/09/2015 DIFFTYPE AUTOMATED 11/09/2015 CMP: Lab Results Component Value Date NA 140 11/09/2015 K 4.1 11/09/2015 CL 105 11/09/2015 CO2 27 11/09/2015 ANIONGAP 12 11/09/2015 GLUF 91 11/09/2015 BUN 7* 11/09/2015 CREATININE 0.7 11/09/2015 BCR 10 11/09/2015 CA 8.8 11/09/2015 PROT 6.7 10/31/2015 ALB 1.5* 10/31/2015 GLOB 5.2* 10/31/2015 BILITOT 0.9 10/31/2015 ALP 71 10/31/2015 AST 15 10/31/2015 ALT 20 10/31/2015 EGFR >60 11/09/2015 Magnesium: Lab Results Component Value Date MG 1.8 11/02/2015 Phosphorus: Lab Results Component Value Date PHOS 4.7 11/02/2015 PT/INR: Lab Results Component Value Date PROTIME DUPLICATE ORDER 10/19/2015 INR 1.1 10/19/2015 PTT: Lab Results Component Value Date APTT 27 10/19/2015 [APTT Imaging @IMAGES@ Scheduled Medications lidocaine Topical Daily metoprolol 200 mg Oral BID nafcillin 2 g Intravenous Q4H oxymetazoline 1 spray Each Nare Daily QUEtiapine 100 mg Oral BID sodium chloride 10 mL Intravenous 2 times per day Continuous Infusions PRN Medications acetaminophen, albuterol, aluminum-magnesium hydroxide-simethicone, benztropine mesylate, c lonazePAM, xciksmguzbFTYIR-dopxed-kohizquab oral solution, haloperidol lactate, lip moisturi zer, LORazepam, morphine, morphine OR morphine OR morphine, ondansetron OR ondan setron, promethazine, simethicone, sodium chloride, sodium chloride, sodium chloride Balta Li MD 11/12/201511:31 AM WarkGill MD - 7:44 AM PDT Progress Notes by Gill Way MD at 11/12/15 0744 Author: Gill Way MD Service: Infectious Disease Author Type: Physician Filed: 11/12/15 0953 Date of Service: 11/12/15 0744 Status: Signed Bisque Brusher: Gill Way MD (Physician) [facility] Service: Infectious Disease Progress Note Hospital Day: LOS: 42 days Post-Op Day: * No surgery found * SUBJECTIVE Reason for consult: Endocarditis Patient Summary: CC: Fever, chest pain and altered mental status From [facility] admission note on 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 male with significant history of tobacco and drug abuse using daily heroin and methamphetamine, also on Suboxone. He initially presented to [facility] for progressive weakness, lethargy, and ge neralized pain (mostly his chest, neck, back, knees, ankles and toes) for the past 7 days. H e noticed that his ankles and right knee were swollen but not warm or erythematous. Nessa g to his girlfriend, he has been feeling sick and febrile for the past week with poor PO int elisha. Yesterday, she noticed that he seemed like he was hallucinating and talking to himself. He was very weak today that she had to assist him to get into the car to go the the ED. Exam at OSH was significant for point tenderness at the area of the cervical spine and posi tive Kernig's sign. LP was performed to rule out meningitis. IV antibiotics started, ceftria xone 2 gm and vancomycin [address] head and C-spine x-ray performed, MRI attempted but patient decompensated and was intubated for respiratory failure and airway protection. Significant labs: Na 114 (1435 hrs), BUN 81, Crea 2.48, WBC 19.9, Hb 11.6, Plt 51, Tbili 3. 6, AST 188, ALT 155, LA 1.7. CSF: clear, colorless, WBC 0, RBC 3. Protein 31. Glucose 50. Culture no growth Blood cultures are reported to be growing GPCs at [facility] Transferred to [facility] for further care. MRI of brain and spine carried out with limited findi ngs due to non-contrast study. Evaluated by Nephrology, acute renal failure attributed to hemodynamics. Evaluated by Dr. Bhardwaj from orthopedics: Does not think patient has ankle septic joint and does not recomme nd surgical intervention. Echocardiogram showed moderate size mobile vegetation attached to the septal tricuspid valv e leaflet, moderate tricuspid regurgitation, moderate pulmonary hypertension with mildly enl arged right ventricle. Evaluated by CTS, surgery not recommended On 10/01, extubated On 10/02, he was transferred out of the ICU. On 10/04, patient had worsening mental status and also became tachypneic. He became more hy ponatremic with worsening renal function. Bilateral moderate sized pleural effusions were n oted on chest CT scan. Bedside ultrasound with bilateral pleural effusion, R>L. Left minimal and without echogenic ity suggestive of infectious pleural effusion. Left effusion is moderate with fibrin strands concerning for complicated/infectious pleural effusion. Right pig tail chest tube placed wi th purulent drainage. Head CT scan negative On 10/05, started on hemodialysis On October 08, left chest tube was placed. Reintubated on October 11. On 10/16-, patient was febrile to 101.4F. Blood cultures were sent. On 10/18, echocardiogram showed possible mobile vegetation at the posterior mitral valve leaf let along with known tricuspid valve vegetation. Right IJ hemodialysis catheter was placed. PICC was discontinued. He complained of abdominal pain and tenderness; CT scan was done salomon t showed mid to distal ileum and right colitis. On 10/19, transesophageal echocardiogram reported as showing no mitral vegetation with large, mobile vegetation at the tricuspid valve and severe tricuspid regurgitation. CT surgery ree valuated the patient; proceeding with medical management. Kidney biopsy done, c/w ATN, impro pina on continued nafcillin. Completed 6 weeks Nafcillin (11/11), baseline TTE shows persiste nt large tricuspid mobile echodensity and severe tricuspid regurge as last TTE. CTS aware, discussed with patient (Dr. Way) and need for f/u for future need of possible replacement. INTERVAL: Afebrile, VSS Completes IV abx today Plans are for rehab after dc No f/c/ns No SOA, FONG, orthopnea or PND No abd pain, no diarrhea No rash PICC line w/o pain or swelling Scheduled Medications lidocaine Topical Daily metoprolol 200 mg Oral BID nafcillin 2 g Intravenous Q4H oxymetazoline 1 spray Each Nare Daily QUEtiapine 100 mg Oral BID sodium chloride 10 mL Intravenous 2 times per day Continuous Infusions PRN Medications acetaminophen, albuterol, aluminum-magnesium hydroxide-simethicone, benztropine mesylate, c lonazePAM, uqpcteptamMUFCS-ldbyta-atyyzaprv oral solution, haloperidol lactate, lip moisturi zer, LORazepam, morphine, morphine OR morphine OR morphine, ondansetron OR ondan setron, promethazine, simethicone, sodium chloride, sodium chloride, sodium chloride OBJECTIVE Vital Signs: BP 134/93 mmHg | Pulse 109 | Temp(Src) 97.6 F (36.4 C) (Oral) | Resp 18 | Ht 1.702 m (5 ' 7") | Wt 59.2 kg (130 lb 8.2 oz) | BMI 20.44 kg/m2 | SpO2 99% Temp: [97.6 F (36.4 C)-98.2 F (36.8 C)] 97.6 F (36.4 C) (11/11 718) BP: (115-137)/(77-96) 134/93 mmHg (11/11 718) Heart Rate: [97-115] 109 (11/11 718) Resp: [18-20] 18 (11/11 718) SpO2: [99 %-100 %] 99 % (11/11 718) Weight: [59.2 kg (130 lb 8.2 oz)] 59.2 kg (130 lb 8.2 oz) (11/11 032) Physical Exam Vitals reviewed. General: A&O, pleasant male, cooperative and in NAD H&N: no thrush Lungs: CTAB CV: Normal rate, regular; apical systolic murmur present Abdomen: ND, NTTP Back: no spinous process pain cervical through lumbar Skin: No active rash; prior extensive rash at upper and lower extremities resolved/healing , livedo reticularis-type changes of both feet - no stigmata endocarditis MS: No synovitis/effusions of LE's or UE's Neurologic: Oriented x 3; generalized weakness noted Lines: LUE PICC - no adjacent erythema, induration, pain DATA CBC: Lab Results Component Value Date WBC 13.43* 11/09/2015 RBC 2.63* 11/09/2015 HGB 7.5* 11/09/2015 HCT 23.4* 11/09/2015 MCV 89.0 11/09/2015 MCH 28.7 11/09/2015 MCHC 32.2 11/09/2015 RDW 55.6* 11/09/2015 PLT 460* 11/09/2015 MPV 7.0 11/09/2015 DIFFTYPE AUTOMATED 11/09/2015 WBC: Lab Results Component Value Date WBC 13.43* 11/09/2015 NEUTABSMAN 8.12* 11/05/2015 NEUTROABS 10.89* 11/09/2015 NEUTROMAN 69 11/05/2015 LYMPHOABS 1.76 11/05/2015 LYMPHOMAN 15 11/05/2015 LYMPHSABS 1.19 11/09/2015 LYMPHOPCT 8.87 11/09/2015 MONOABSMAN 0.47 11/05/2015 MONOMAN 4 11/05/2015 MONOPCT 6.02 11/09/2015 EOSINOABS 1.06* 11/05/2015 EOSINOMAN 9 11/05/2015 EOSABS 0.41 11/09/2015 EOSPCT 3.06 11/09/2015 BASOSABS 0.13* 11/09/2015 BASOPCT 0.97 11/09/2015 PLTEST INCREASED 11/05/2015 BANDSPCT 3 11/05/2015 METAABS 0.26* 10/13/2015 METAPCT 1 10/13/2015 MYELOABS 0.17* 10/09/2015 MYELOPCT 1 10/09/2015 COMDIFF SLIDE SCANNED, AGREES WITH AUTOMATED RESULTS. 10/18/2015 CMP: Lab Results Component Value Date NA 140 11/09/2015 K 4.1 11/09/2015 CL 105 11/09/2015 CO2 27 11/09/2015 ANIONGAP 12 11/09/2015 GLUF 91 11/09/2015 BUN 7* 11/09/2015 CREATININE 0.7 11/09/2015 BCR 10 11/09/2015 CA 8.8 11/09/2015 PROT 6.7 10/31/2015 ALB 1.5* 10/31/2015 GLOB 5.2* 10/31/2015 BILITOT 0.9 10/31/2015 ALP 71 10/31/2015 AST 15 10/31/2015 ALT 20 10/31/2015 EGFR >60 11/09/2015 Lab Results Component Value Date CRP 1.9* 11/09/2015 Lab Results Component Value Date ESR 79* 11/09/2015 Microbiology data: 10/29 blood cultures with no growth 10/29 catheter tip culture with no growth 10/29 urine culture with less than 10,000 CFU per mL of gram-negative rods Radiology data: 10/01 TTE 1. LV size, wall thickness and systolic function are normal, with an EF of 60%. 2. The diastolic filling pattern indicates impaired relaxation consistent with mild dysfunc tion (Grade I). 3. The right ventricle is mildly enlarged, but right ventricular systolic function is dorothy l. 4. Moderate tricuspid regurgitation present. 5. There is moderate pulmonary hypertension. The right ventricular systolic pressure (p ulmonary artery systolic pressure), as measured by Doppler, is 50.27mmHg. 6. Moderate sized, mobile vegetation attached to the septal tricuspid valve leaflet. 11/10 TTE 1. Resting tachycardia (HR>100bpm). 2. A limited 2-dimensional transthoracic echocardiogram with limited spectral and color rayna w Doppler was performed. 3. This was a technically adequate study. 4. Overall left ventricular systolic function is normal with, an EF between 65 - 70 %. 5. The left ventricle cavity size is normal. 6. There is mild concentric left ventricular hypertrophy. 7. The right ventricle is normal in size. 8. The aortic valve is trileaflet, and appears anatomically normal. No aortic stenosis or r egurgitation. 9. Normal appearing mitral valve. 10. There is trace mitral regurgitation. 11. Severe tricuspid regurgitation present. 12. Large, mobile vegetation attached to the septal tricuspid valve leaflet. 13. Pulmonic valve appears structurally normal. 14. There is no pericardial effusion. 15. The IVC was not well visualized. PROBLEM LIST Principal Problem: Sepsis (HCC) Active Problems: Hyposmolality and/or hyponatremia MARCEL (acute kidney injury) (HCC) Leucocytosis Thrombocytopenia (HCC) Toxic metabolic encephalopathy Acute respiratory failure with hypoxia (HCC) Heroin abuse Methamphetamine abuse Tobacco abuse Acute septic pulmonary embolism (HCC) Acute infective endocarditis Moderate protein-calorie malnutrition ([facility]) Hallucination, visual Severe protein-calorie malnutrition ([facility]) Hoarseness ASSESSMENT & PLAN MSSA septicemia, tricuspid valve endocarditis - MSSA bacteremia ([facility]), tricuspid valve endocarditis with septic pulmonary embol i related to IV drug use - 10/01 MRI brain and cervical to lumbar spine: no evidence of infection -> neck/back pain resolved - No evidence of septic arthritis; evaluated by orthopedics - Blood cultures on admission here have no growth. - 10/08 CT chest - continued pleural effusion on the left, chest tube placed and d/c'd. cx NG - 10/17, he was febrile so blood cultures repeated on 10/17 with no growth - 10/17 TTE - tricuspid valve vegetation, severe TR and a new mitral valve vegetation. ANITA showed no MV vegetation; Dr. Arias, CTS recommends to continue medical management. - 10/18 RUE PICC d/c'd on 10/18, catheter tip culture NG. Right IJ hemodialysis catheter remove d at this time. New PICC placed on 10/20 -When he became febrile, tachycardic and tachypneic on 10/29, antibiotics had been broadene d to IV vancomycin/Zosyn. No new blood culture growth. CXR shows stable findings. Mental st atus back to baseline. No new focus of infection. Transitioned back to IV nafcillin - 11/10 baseline TTE post-tx: persistent large mobile TV vegetation with severe TR, unchange d from last TTE 10/16 - CTS with recommendation for continued medical management - Make sure has f/u with CTS in few months given severe tricuspid regurge, instructed pt sh ould sx develop (FONG, PND, cough, edema) may be related to TR and also discussed need for ur gent reporting should systemic sx of infection arise, which he voiced understanding to -Finishes IV nafcillin, day 42 of 42 (completes 11/11) - Will see him back in ID clinic ~ 2 weeks Acute hypoxemic respiratory failure - resolved Hallucinations - evaluated by psych, unrelated to nafcillin - resolved. MARCEL - 10/19 renal bx c/w ATN - resolved. Abnormal LFTs - resolved. Petechial/purpuric rash - probable ecthyma - resolved. IV drug use. Not candidate for outpatient IV abx. HIV, HCV and HBV serologies neg. Going to outpatient rehab following dc. Pt d/w Dr. Li Code Status: Full Code Gill Way MD 11/12/2015 onversio n Transaction, Provider Unknown - 11/11/2015 7:22 PM PDTFormatting of this note might be di fferent from the original. Progress Notes by Travis Santillan at 11/11/151921 Author: Travis Santillan Service: (none) Author Type: Filed: 11/11/151924 Date of Service: 11/11/151921 Status: Signed Bisque Brusher: Travis Santillan () Pt appears to be in good spirits and has shown improvement to the point that he will be goi ng to be discharged to his sisters home in the next two days. Pt says that he is going into rehab for his drug use when he gets home and that he has to make amends with people in his life. Prayed with pt. Microbiological Lab Technician was present at meeting with pt. Chaplain Kevin Balta Mark MD - 11/11/2015 2:14 PM PDTFormatting of this note might be different from the origi nal. Progress Notes by Balta Li MD at 11/11/15 4234 Author: Balta Li MD Service: (none) Author Type: Physician Filed: 11/11/15 1416 Date of Service: 11/11/151413 Status: Signed Bisque Brusher: Balta Li MD (Physician) [facility] Service: Hospitalist Progress Note Hospital Day: LOS: 41 days Consultants: Treatment Team: Consulting Physician: Gonzalez Bhardwaj MD Consulting Physician: Femi Vaughan MD Consulting Physician: Rodolfo Salguero MD Consulting Physician: Gill Way MD Admitting Provider: Carly Thomas DO The first problem in assessment is the principal problem. Per Dr. Butterfield: 30-year-old male with past medical history of IV drug use including heroin, methamphetamine , who presented with weakness, was found to have infective endocarditis involving the tricus pid valve. Status post intubation. Initially needing pressors also had presentation with sev ere hyponatremia and worsening renal failure. Later on transferred to the medical floor but had more decompensation and had to be transferred back to ICU with need of dialysis and rein tubation. He finally stabilized and returned to hospitalists. He is continuing IV nafcillin for IE. He is not a candidate for PICC and couldn't be placed elsewhere. Now he is almost fi nished with abx, day 39 of . He has had sinus tachy, on metoprolol, otherwise hemodynamica lly stable. He has expressed suicidal ideation, hallucinations, anxiety. Psych has seen him. There is a plan to check into a rehab once he DC's home to sister's house. 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 CVT surgery eval'd and rec med management. Da . Dis cussed with ID ordered for repeat echo. Sinus tachycardia Improved on metoprolol, 200 BID. Hallucinations, IVDA, anxiety, withdrawals Improved on Seroquel, Klonopin. Patient wants to try to taper medications as tolerated. We' ll decrease Klonopin to twice a day when necessary and Seroquel 100 twice a day. Currently patient denies any hallucinations, suicidal ideations or thoughts. Patient was se en by psychiatric. No more need of sitter or crisis evaluation. Toxic metabolic encephalopathy, sepsis, acute resp failure with hypoxia, ARF All sequelae of above and all improving at this point. Hoarseness & dysphagia Continue speech therapy. Was seen by ENT. No vocal cord paralysis Disposition: Home pending above. Code Status: Full Code Dictation and program proposals coordinator or software, Social Media Simplified, used which may contain error for similar s ounding words even after review. Personal communication requested for any clarification. SUBJECTIVE Events Overnight: *Overall stable needed 1 dose of lorazepam when necessary for anxiety. O therwise, no hallucinations or symptoms. OBJECTIVE General: Well nourished. Psych: Alert and oriented x 3. Calm, cooperative. Cardiovascular: Regular rate and rhythm, no murmurs, no thrills. Normal PMI. Respiratory: Clear to auscultation, no wheezing or crackles, breathing non labored. Gastrointestinal: Soft, non-tender, non-distended, positive bowel sounds. No HSM. Musculoskeletal: No edema in bilateral lower extremities. No joint swelling. Neck: No JVD, Trachea midline. Neurological: Non focal. Motor grossly intact. PROBLEM LIST Principal Problem: Sepsis (HCC) Active Problems: Hyposmolality and/or hyponatremia MARCEL (acute kidney injury) (HCC) Leucocytosis Thrombocytopenia (HCC) Toxic metabolic encephalopathy Acute respiratory failure with hypoxia (HCC) Heroin abuse Methamphetamine abuse Tobacco abuse Acute septic pulmonary embolism (HCC) Acute infective endocarditis Moderate protein-calorie malnutrition (HCC) Hallucination, visual Severe protein-calorie malnutrition (HCC) Hoarseness PMH Past Medical History Diagnosis Date Illicit drug use, continuous HOME MEDICATIONS Prior to Admission medications Not on File DATA Vital Signs: BP 124/89 mmHg | Pulse 111 | Temp(Src) 98.2 F (36.8 C) (Oral) | Resp 20 | Ht 1.702 m (5 ' 7") | Wt 59.775 kg (131 lb 12.5 oz) | BMI 20.63 kg/m2 | SpO2 99% Filed Vitals: 11/10/15 2331 11/11/15 0345 11/11/15 0735 11/11/15 1128 BP: 121/86 124/86 122/81 124/89 Pulse: 105 105 111 Temp: 98 F (36.7 C) 98.4 F (36.9 C) 98.4 F (36.9 C) 98.2 F (36.8 C) TempSrc: Oral Oral Oral Oral Resp: 18 20 20 20 Height: Weight: 59.775 kg (131 lb 12.5 oz) SpO2: 99% 99% 98% 99% Intake/Output Summary (Last 24 hours) at 11/11/15 1414 Last data filed at 11/11/15 0800 Gross per 24 hour Intake 2998 ml Output 1350 ml Net 1648 ml CBC: Lab Results Component Value Date WBC 13.43* 11/09/2015 RBC 2.63* 11/09/2015 HGB 7.5* 11/09/2015 HCT 23.4* 11/09/2015 MCV 89.0 11/09/2015 MCH 28.7 11/09/2015 MCHC 32.2 11/09/2015 RDW 55.6* 11/09/2015 PLT 460* 11/09/2015 MPV 7.0 11/09/2015 DIFFTYPE AUTOMATED 11/09/2015 CMP: Lab Results Component Value Date NA 140 11/09/2015 K 4.1 11/09/2015 CL 105 11/09/2015 CO2 27 11/09/2015 ANIONGAP 12 11/09/2015 GLUF 91 11/09/2015 BUN 7* 11/09/2015 CREATININE 0.7 11/09/2015 BCR 10 11/09/2015 CA 8.8 11/09/2015 PROT 6.7 10/31/2015 ALB 1.5* 10/31/2015 GLOB 5.2* 10/31/2015 BILITOT 0.9 10/31/2015 ALP 71 10/31/2015 AST 15 10/31/2015 ALT 20 10/31/2015 EGFR >60 11/09/2015 Magnesium: Lab Results Component Value Date MG 1.8 11/02/2015 Phosphorus: Lab Results Component Value Date PHOS 4.7 11/02/2015 PT/INR: Lab Results Component Value Date PROTIME DUPLICATE ORDER 10/19/2015 INR 1.1 10/19/2015 PTT: Lab Results Component Value Date APTT 27 10/19/2015 [APTT Imaging @IMAGES@ Scheduled Medications lidocaine Topical Daily metoprolol 200 mg Oral BID nafcillin 2 g Intravenous Q4H oxymetazoline 1 spray Each Nare Daily QUEtiapine 100 mg Oral BID sodium chloride 10 mL Intravenous 2 times per day Continuous Infusions PRN Medications acetaminophen, albuterol, aluminum-magnesium hydroxide-simethicone, benztropine mesylate, c lonazePAM, rljvojdkejJCSJG-njujqf-vpdlevovg oral solution, haloperidol lactate, lip moisturi zer, LORazepam, morphine, morphine OR morphine OR morphine, ondansetron OR ondan setron, promethazine, simethicone, sodium chloride, sodium chloride, sodium chloride Balta Li MD 11/11/20152:14 PM onversion Transaction, Provider Unknown - 11/11/2015 8:54 AM PDTFormatting of this note might be different from th e original. Therapy Progress Note by GISELA Lazaro at 11/11/15 0854 Author: GISELA Lazaro Service: (none) Author Type: Occupational Therapist Filed: 11/11/15 1011 Date of Service: 11/11/15 0854 Status: Addendum Bisque Brusher: GISELA Lazaro (Occupational Therapist) Related Notes: Original Note by GISELA Lazaro (Occupational Therapist) filed at 10/19 07/03 1006 11/11/15 0854 OT Last Visit OT Received On 11/11/15 Reason for Treatment Deconditioning Requires OT Follow Up Yes Assistance Required 1 person Skip Operator Needed No Family/Caregiver Present No Requires OT Follow Up Yes Precautions Other Precautions fall precautions Other Comments Comments Pt supine in bed upon OT arrival; pleasant and agreeable to OT tx. Performed cog a ssessment per request from intial evaluation. Pt scored 28/30 indicating cognition within no rmal limits. Grooming Grooming Comments performed prior to OT arrival standing at sink with no assistance or diff iculty. UE Bathing UE Bathing Comments Reported bathing just prior to OT arrival, standing with no assist othe r than supervision in step in shower. LE Bathing LE Bathing Comments Pt reported no difficulty UE Dressing UE Dressing Level of Assistance Independent UE Dressing Where Assessed (standing in room ) UE Dressing Comments Pt able to retrieve clothing from closet without loss of balance and d onn shirt independently LE Dressing LE Dressing Yes Pants Level of Assistance Independent Sock Level of Assistance Independent Shoe Level of Assistance Independent LE Dressing Where Assessed Other (Comment);Edge of bed (pants donned in shower room per report ) LE Dressing Comments donning/doffing shoes observed seated EOB Toileting Toileting Comments Pt indicates no assistance needed Tub Transfers Tub Transfer From (ambulating ) Tub Transfer Type To and From Tub Transfer to Standing Tub Transfer Technique Ambulating Tub Transfers Independent Tub Transfers Comments pt performed simulated tub/shower t/f with no assist or use of grab bars needed. Anticipate no difficulty with actual tub/shower t/f when bathing. Exercise Tools Exercise Tools Yes Theraputty Instructed on use of green theraputty for inc strength/manual dexterity. Pt repo rts his hands feel weaker than usual and were noted to be slightly shaky during pen/paper po rtion of cog assessment. Instructed pt to perform tputty exercises for 10 minutes 3x's throu ghout the day. Pt stated understanding and would benefit from handout of exercises for visua l reminder. Additional Activities Additional Activities Comments See Below for results of cognitve Assessment.Pt able to ambu late around hospital floor with no AD. Pt had minor LOB which he was able to self correct w ith distractions. Discussed observations and recommended limiting distractions while walking for dec fall risk. Pt stated understanding of education provided. Based on ADL and cognitiv e status OT anticipates pt to be safe to d/c from a functional performance standpoint to his sisters home with the plan of seeking substance abuse treatment in [place]. Pt requested continued OT during hospital stay to focus on UE strengthening and FMC. Activity Tolerance Activity Tolerance Patient tolerated treatment well Safety Devices Safety Devices in Place Yes Type of Devices 1:1 sitter Plan Treatment Interventions (Per OT POC ) Progress Progressing toward goals;Improving as expected Recommendation Recommendation (Sisters home; then substance abuse treatment program ) Equipment Recommended (none ) OT Ready for Discharge Yes BRENDEN COGNITIVE ASSESSMENT / [facility] - BLIND Version 7.1 Original Patient: Yang Ridley Date of Administration: 11/11/2015 Patient State: alert pleasant and cooperative Visuo-spatial/executive: Trailmakin/1 3D cube: 03/20 Clock: 05/20 Memory: No points are added to final score on memory subtest. First Trial: 07/22 Second Trial: 07/22 Attention: Digits: 04/21 Letters: 03/20 Serial 7: 03/22 Language: Repeat: 04/21 Fluency: 03/20 Abstraction: Similarity: 04/21 Delayed Recall: 4/ 5 Completed without ceing Orientation: 08/23 Total Score: 28/ 30 Classification: Normal Greater than or equal to 26/30 Assessment Comments: Formal assessment indicating cognition within normal limits appears co nsistent with observations throughout treatment session and during functional activities. Ex tra point given for less than [employer] level of education completed. The results of this assessment were reviewed with the patient Susannah Esquivel, OTR/L 11/11/2015 Focus of next session: UE strengthening/HEP and FMC/operator control room strength Gill Lowe MD - 11/11/2015 7:49 AM PDTFormatting of this note might be different from the or iginal. Progress Notes by Gill Way MD at 11/11/15 0749 Author: Gill Way MD Service: Infectious Disease Author Type: Physician Filed: 11/11/15 1002 Date of Service: 11/11/15 0749 Status: Signed Bisque Brusher: Gill Way MD (Physician) [facility] Service: Infectious Disease Progress Note Hospital Day: LOS: 41 days Post-Op Day: * No surgery found * SUBJECTIVE Reason for consult: Endocarditis Patient Summary: CC: Fever, chest pain and altered mental status From [employer] admission note on 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 male with significant history of tobacco and drug abuse using daily heroin and methamphetamine, also on Suboxone. He initially presented to [facility] for progressive weakness, lethargy, and ge neralized pain (mostly his chest, neck, back, knees, ankles and toes) for the past 7 days. H e noticed that his ankles and right knee were swollen but not warm or erythematous. Nessa g to his girlfriend, he has been feeling sick and febrile for the past week with poor PO int elisha. Yesterday, she noticed that he seemed like he was hallucinating and talking to himself. He was very weak today that she had to assist him to get into the car to go the the ED. Exam at OSH was significant for point tenderness at the area of the cervical spine and posi tive Kernig's sign. LP was performed to rule out meningitis. IV antibiotics started, ceftria xone 2 gm and vancomycin [address] head and C-spine x-ray performed, MRI attempted but patient decompensated and was intubated for respiratory failure and airway protection. Significant labs: Na 114 (1435 hrs), BUN 81, Crea 2.48, WBC 19.9, Hb 11.6, Plt 51, Tbili 3. 6, AST 188, ALT 155, LA 1.7. CSF: clear, colorless, WBC 0, RBC 3. Protein 31. Glucose 50. Culture no growth Blood cultures are reported to be growing GPCs at [facility] Transferred to [facility] for further care. MRI of brain and spine carried out with limited findi ngs due to non-contrast study. Evaluated by Nephrology, acute renal failure attributed to hemodynamics. Evaluated by Dr. Bhardwaj from orthopedics: Does not think patient has ankle septic joint and does not recomme nd surgical intervention. Echocardiogram showed moderate size mobile vegetation attached to the septal tricuspid valv e leaflet, moderate tricuspid regurgitation, moderate pulmonary hypertension with mildly enl arged right ventricle. Evaluated by CTS, surgery not recommended On 10/01, extubated On 10/02, he was transferred out of the ICU. On 10/04, patient had worsening mental status and also became tachypneic. He became more hy ponatremic with worsening renal function. Bilateral moderate sized pleural effusions were n oted on chest CT scan. Bedside ultrasound with bilateral pleural effusion, R>L. Left minimal and without echogenic ity suggestive of infectious pleural effusion. Left effusion is moderate with fibrin strands concerning for complicated/infectious pleural effusion. Right pig tail chest tube placed wi th purulent drainage. Head CT scan negative On 10/05, started on hemodialysis On October 08, left chest tube was placed. Reintubated on October 11. On 10/16-, patient was febrile to 101.4F. Blood cultures were sent. On 10/18, echocardiogram showed possible mobile vegetation at the posterior mitral valve leaf let along with known tricuspid valve vegetation. Right IJ hemodialysis catheter was placed. PICC was discontinued. He complained of abdominal pain and tenderness; CT scan was done salomon t showed mid to distal ileum and right colitis. On 10/19, transesophageal echocardiogram reported as showing no mitral vegetation with large, mobile vegetation at the tricuspid valve and severe tricuspid regurgitation. CT surgery ree valuated the patient; proceeding with medical management. Kidney biopsy done. INTERVAL: Afebrile, VSS Feeling well, no complaints No f/c/ns No back pain No soa, orthopnea or edema No abd pain or diarrhea No rash Scheduled Medications lidocaine Topical Daily metoprolol 200 mg Oral BID nafcillin 2 g Intravenous Q4H oxymetazoline 1 spray Each Nare Daily QUEtiapine 100 mg Oral BID sodium chloride 10 mL Intravenous 2 times per day Continuous Infusions PRN Medications acetaminophen, albuterol, aluminum-magnesium hydroxide-simethicone, benztropine mesylate, c lonazePAM, nlpqvrnpkvAVXFR-gqnbym-sryryufdb oral solution, haloperidol lactate, lip moisturi zer, LORazepam, morphine, morphine OR morphine OR morphine, ondansetron OR ondan setron, promethazine, simethicone, sodium chloride, sodium chloride, sodium chloride OBJECTIVE Vital Signs: BP 124/86 mmHg | Pulse 105 | Temp(Src) 98.4 F (36.9 C) (Oral) | Resp 20 | Ht 1.702 m (5 ' 7") | Wt 59.775 kg (131 lb 12.5 oz) | BMI 20.63 kg/m2 | SpO2 99% Temp: [97.5 F (36.4 C)-98.4 F (36.9 C)] 98.4 F (36.9 C) (11/10 344) BP: (121-126)/(82-93) 124/86 mmHg (11/10 344) Heart Rate: [101-120] 105 (11/10 344) Resp: [18-20] 20 (11/10 344) SpO2: [97 %-100 %] 99 % (11/10 344) Weight: [59.775 kg (131 lb 12.5 oz)] 59.775 kg (131 lb 12.5 oz) (11/10 344) Physical Exam Vitals reviewed. General: A&O, pleasant male, cooperative and in NAD H&N: no thrush Lungs: CTAB CV: Normal rate, regular; no murmur appreciated Abdomen: ND, NTTP Back: no spinous process pain cervical through lumbar Skin: No active rash; prior extensive rash at upper and lower extremities resolved/healing MS: No synovitis/effusions of LE's or UE's Neurologic: Oriented x 3; generalized weakness noted Lines: LUE PICC - no adjacent erythema, induration, pain DATA CBC: Lab Results Component Value Date WBC 13.43* 11/09/2015 RBC 2.63* 11/09/2015 HGB 7.5* 11/09/2015 HCT 23.4* 11/09/2015 MCV 89.0 11/09/2015 MCH 28.7 11/09/2015 MCHC 32.2 11/09/2015 RDW 55.6* 11/09/2015 PLT 460* 11/09/2015 MPV 7.0 11/09/2015 DIFFTYPE AUTOMATED 11/09/2015 WBC: Lab Results Component Value Date WBC 13.43* 11/09/2015 NEUTABSMAN 8.12* 11/05/2015 NEUTROABS 10.89* 11/09/2015 NEUTROMAN 69 11/05/2015 LYMPHOABS 1.76 11/05/2015 LYMPHOMAN 15 11/05/2015 LYMPHSABS 1.19 11/09/2015 LYMPHOPCT 8.87 11/09/2015 MONOABSMAN 0.47 11/05/2015 MONOMAN 4 11/05/2015 MONOPCT 6.02 11/09/2015 EOSINOABS 1.06* 11/05/2015 EOSINOMAN 9 11/05/2015 EOSABS 0.41 11/09/2015 EOSPCT 3.06 11/09/2015 BASOSABS 0.13* 11/09/2015 BASOPCT 0.97 11/09/2015 PLTEST INCREASED 11/05/2015 BANDSPCT 3 11/05/2015 METAABS 0.26* 10/13/2015 METAPCT 1 10/13/2015 MYELOABS 0.17* 10/09/2015 MYELOPCT 1 10/09/2015 COMDIFF SLIDE SCANNED, AGREES WITH AUTOMATED RESULTS. 10/18/2015 CMP: Lab Results Component Value Date NA 140 11/09/2015 K 4.1 11/09/2015 CL 105 11/09/2015 CO2 27 11/09/2015 ANIONGAP 12 11/09/2015 GLUF 91 11/09/2015 BUN 7* 11/09/2015 CREATININE 0.7 11/09/2015 BCR 10 11/09/2015 CA 8.8 11/09/2015 PROT 6.7 10/31/2015 ALB 1.5* 10/31/2015 GLOB 5.2* 10/31/2015 BILITOT 0.9 10/31/2015 ALP 71 10/31/2015 AST 15 10/31/2015 ALT 20 10/31/2015 EGFR >60 11/09/2015 Lab Results Component Value Date CRP 1.9* 11/09/2015 Lab Results Component Value Date ESR 79* 11/09/2015 Microbiology data: 10/29 blood cultures with no growth 10/29 catheter tip culture with no growth 10/29 urine culture with less than 10,000 CFU per mL of gram-negative rods Radiology data: Impression Left PICC tip in expected position. Bilateral nodularity consistent with septic emboli and multifocal infection. CHEST 1 VIEW [[id number]] PROBLEM LIST Principal Problem: Sepsis (HCC) Active Problems: Hyposmolality and/or hyponatremia MARCEL (acute kidney injury) (HCC) Leucocytosis Thrombocytopenia (HCC) Toxic metabolic encephalopathy Acute respiratory failure with hypoxia (HCC) Heroin abuse Methamphetamine abuse Tobacco abuse Acute septic pulmonary embolism (HCC) Acute infective endocarditis Moderate protein-calorie malnutrition (HCC) Hallucination, visual Severe protein-calorie malnutrition (HCC) Hoarseness ASSESSMENT & PLAN MSSA sepsis, tricuspid valve endocarditis -Patient has MSSA bacteremia, tricuspid valve endocarditis with septic pulmonary emboli re lated to IV drug use -Neck pain and back pain improved; noncontrast MRI of spine and brain on presentation show s no evidence of infection -No evidence of septic arthritis; evaluated by orthopedics -Blood cultures on admission here have no growth. -CT scan performed on October 08 confirmed continued pleural effusion on the left, chest tube placed and d/c'd. -On 10/17, he was febrile so blood cultures repeated on 10/17 with no growth. TTE showed tr icuspid valve vegetation and a new mitral valve vegetation. Transesophageal echocardiogram s howed no MV vegetation; Dr. Arias, CTS recommends to continue medical management. Right u pper extremity PICC d/c'd on 10/18, catheter tip culture with no growth. Right IJ hemodialysis catheter removed at this time. New PICC placed on 10/20 -When he became febrile, tachycardic and tachypneic on 10/29, antibiotics had been broadene d to IV vancomycin/Zosyn. No new blood culture growth. CXR shows stable findings. Mental st atus back to baseline. No new focus of infection. Transitioned back to IV nafcillin -continue IV nafcillin, day 41 of 42 - would repeat TTE so we have new baseline following tx Acute hypoxemic respiratory failure - resolved Hallucinations - resolved MARCEL - 8/2 renal bx c/w ATN - resolved. Abnormal LFTs - resolved Petechial/purpuric rash - probable ecthyma - resolved. IV drug use. Not candidate for outpatient IV abx. HIV negative. Code Status: Full Code Gill Way MD 11/11/2015 onversio n Transaction, Provider Unknown - 11/11/2015 4:49 AM PDTFormatting of this note might be di fferent from the original. Nurse Progress Note by Diana Maddox RN at 11/11/15448 Author: Diana Maddox RN Service: (none) Author Type: Registered Nurse Filed: 11/11/15 0451 Date of Service: 11/11/15448 Status: Signed Bisque Brusher: Diana Maddox RN (Registered Nurse) No c/o pain or discomfort during shift. HR still slightly tachy. Other VSS. Will continu e to monitor. DIANA MADDOX RN onver patti Transaction, Provider Unknown - 11/10/2015 2:06 PM PDT Case Management by Katharina Sparks RN at 11/10/15 9823 Author: Katharina Sparks RN Service: (none) Author Type: Registered Nurse Filed: 11/10/15 9075 Date of Service: 11/10/151405 Status: Signed Bisque Brusher: Katharina Sparks RN (Registered Nurse) RAFAEL العراقي with Susannah at [facility] [phone] regarding pt's d/c plan. Katharina Sparks RN Peri Eller, OTR/L - 11/10/2015 11:35 AM PDTFormatting of this note might be different from t he original. Therapy Progress Note by GISELA Tam at 11/10/15 3550 Author: GISELA Tam Service: (none) Author Type: Occupational Therapist Filed: 11/10/15 6866 Date of Service: 11/10/151134 Status: Signed Bisque Brusher: GISELA Tam (Occupational Therapist) 11/10/15 1138 OT Last Visit OT Received On 11/10/15 Reason for Treatment Deconditioning Requires OT Follow Up Yes Assistance Required 1 person Skip Operator Needed No Family/Caregiver Present No (sitter present for entire session) Requires OT Follow Up Yes Precautions Other Precautions fall precautions Other Comments Comments Pt supine in bed with sitter upon arrival and willing to participate in session th is AM. Pt moved to seated EOB with mod indep use of elevated HOB. Grooming Grooming Comments Pt. reported that he is able to complete grooming standing at the sink. Exercise Tools Exercise Tools Yes Theraband With orange tband pt. completed shoulder ab/adduction, elbow flexion/extension, s houlder er/ir for 10 reps and the 5 additional repts. Pt. completed finger squeezes with bal l. pt. tolerated exercises well however noted fatigue after first set. Pt. encouraged to com plete exercises thorughout the day 5-10 reps. Pt. noted understanding. Additional Activities Additional Activities Comments Pt transferred from seated EOB to seated in chair with super vision. Pt assisted to position table for lunch. Pt. left seated in chair with sitter presen t. Activity Tolerance Activity Tolerance Patient tolerated treatment well Safety Devices Safety Devices in Place Yes Type of Devices 1:1 sitter Plan Treatment Interventions (Per OT POC) Progress Progressing toward goals Recommendation Recommendation (Discharge to safe family home to complete IOP treatment) Equipment Recommended (defer at this time) OT Ready for Discharge Yes Education Completed: Education Topic: UE therapeutic exercise Completed with: Patient Completed by: Verbal Education, Demonstration Response to Education: Stated Understanding, Returned Demonstration, Reinforcement John butts for Education Understanding Occupational Therapy Plan: Continue OT treatment per POC The following recommendations are made for d/c planning at this time: (Discharge to safe family home to complete IOP treatment) Barriers to d/c at this time include: Home environment Equipment needs- continue to address pending progress Physical deficits impacting functional independence Balta Mark MD - 11/10/2015 10:42 AM PDT Progress Notes by Balta Li MD at 11/10/15 104 Author: Balta Li MD Service: (none) Author Type: Physician Filed: 11/10/15 1045 Date of Service: 11/10/151041 Status: Signed Bisque Brusher: Balta Li MD (Physician) [facility] Service: Hospitalist Progress Note Hospital Day: LOS: 40 days Consultants: Treatment Team: Consulting Physician: Gonzalez Bhardwaj MD Consulting Physician: Femi Vaughan MD Consulting Physician: Rodolfo Salguero MD Consulting Physician: Gill Way MD Admitting Provider: Carly Thomas DO The first problem in assessment is the principal problem. Per Dr. Butterfield: 30-year-old male with past medical history of IV drug use including heroin, methamphetamine , who presented with weakness, was found to have infective endocarditis involving the tricus pid valve. Status post intubation. Initially needing pressors also had presentation with sev ere hyponatremia and worsening renal failure. Later on transferred to the medical floor but had more decompensation and had to be transferred back to ICU with need of dialysis and rein tubation. He finally stabilized and returned to hospitalists. He is continuing IV nafcillin for IE. He is not a candidate for PICC and couldn't be placed elsewhere. Now he is almost fi nished with abx, day 39 . He has had sinus tachy, on metoprolol, otherwise hemodynamica lly stable. He has expressed suicidal ideation, hallucinations, anxiety. Psych has seen him. There is a plan to check into a rehab once he DC's home to sister's house. 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 CVT surgery eval'd and rec med management. Da . Sinus tachycardia Improved on metoprolol, monitor. Increase to 200 BID. Hallucinations, IVDA, anxiety, withdrawals Improved on Seroquel, Klonopin. Patient wants to try to taper medications as tolerated. We' ll decrease Klonopin to twice a day when necessary and Seroquel 200 twice a day. Currently patient denies any hallucinations, suicidal ideations or thoughts. Patient was se en by psychiatric the past with recommendation of possible consideration of rehabilitation v ersus inpatient psych. Currently, patient is undergoing home with his sister and following u p with detox facility. He also has a sitter at bedside. With order for repeat psychiatric evaluation for evaluation of need of sitter/suicidal thou ghts and other accommodations about discharge planning. Toxic metabolic encephalopathy, sepsis, acute resp failure with hypoxia, ARF All sequelae of above and all improving at this point. Hoarseness & dysphagia Continue speech therapy. Was seen by ENT. No vocal cord paralysis Disposition: Home pending above. Code Status: Full Code Dictation and program proposals coordinator or software, Social Media Simplified, used which may contain error for similar s ounding words even after review. Personal communication requested for any clarification. SUBJECTIVE Events Overnight: *Patient reports improves. Denies any nausea, vomiting, chest pain, shor tness of breath. No anxiety or hallucinations OBJECTIVE General: Well nourished. Psych: Alert and oriented x 3. Calm, cooperative. Cardiovascular: Regular rate and rhythm, no murmurs, no thrills. Normal PMI. Respiratory: Clear to auscultation, no wheezing or crackles, breathing non labored. Gastrointestinal: Soft, non-tender, non-distended, positive bowel sounds. No HSM. Musculoskeletal: No edema in bilateral lower extremities. No joint swelling. Neck: No JVD, Trachea midline. Neurological: Non focal. Motor grossly intact. PROBLEM LIST Principal Problem: Sepsis (HCC) Active Problems: Hyposmolality and/or hyponatremia MARCEL (acute kidney injury) (HCC) Leucocytosis Thrombocytopenia (HCC) Toxic metabolic encephalopathy Acute respiratory failure with hypoxia (HCC) Heroin abuse Methamphetamine abuse Tobacco abuse Acute septic pulmonary embolism (HCC) Acute infective endocarditis Moderate protein-calorie malnutrition (HCC) Hallucination, visual Severe protein-calorie malnutrition (HCC) Hoarseness PMH Past Medical History Diagnosis Date Illicit drug use, continuous HOME MEDICATIONS Prior to Admission medications Not on File DATA Vital Signs: BP 126/93 mmHg | Pulse 116 | Temp(Src) 97.5 F (36.4 C) (Oral) | Resp 20 | Ht 1.702 m (5 ' 7") | Wt 58.5 kg (128 lb 15.5 oz) | BMI 20.19 kg/m2 | SpO2 97% Filed Vitals: 11/09/15 2310 11/10/15 0251 11/10/15 0534 11/10/15 0806 BP: 127/94 122/87 126/93 Pulse: 104 101 116 Temp: 98 F (36.7 C) 97.8 F (36.6 C) 97.5 F (36.4 C) TempSrc: Oral Oral Oral Resp: 20 20 20 Height: Weight: 58.5 kg (128 lb 15.5 oz) SpO2: 99% 98% 97% Intake/Output Summary (Last 24 hours) at 11/10/15 1042 Last data filed at 11/10/15 0953 Gross per 24 hour Intake 1472 ml Output 1600 ml Net -128 ml CBC: Lab Results Component Value Date WBC 13.43* 11/09/2015 RBC 2.63* 11/09/2015 HGB 7.5* 11/09/2015 HCT 23.4* 11/09/2015 MCV 89.0 11/09/2015 MCH 28.7 11/09/2015 MCHC 32.2 11/09/2015 RDW 55.6* 11/09/2015 PLT 460* 11/09/2015 MPV 7.0 11/09/2015 DIFFTYPE AUTOMATED 11/09/2015 CMP: Lab Results Component Value Date NA 140 11/09/2015 K 4.1 11/09/2015 CL 105 11/09/2015 CO2 27 11/09/2015 ANIONGAP 12 11/09/2015 GLUF 91 11/09/2015 BUN 7* 11/09/2015 CREATININE 0.7 11/09/2015 BCR 10 11/09/2015 CA 8.8 11/09/2015 PROT 6.7 10/31/2015 ALB 1.5* 10/31/2015 GLOB 5.2* 10/31/2015 BILITOT 0.9 10/31/2015 ALP 71 10/31/2015 AST 15 10/31/2015 ALT 20 10/31/2015 EGFR >60 11/09/2015 Magnesium: Lab Results Component Value Date MG 1.8 11/02/2015 Phosphorus: Lab Results Component Value Date PHOS 4.7 11/02/2015 PT/INR: Lab Results Component Value Date PROTIME DUPLICATE ORDER 10/19/2015 INR 1.1 10/19/2015 PTT: Lab Results Component Value Date APTT 27 10/19/2015 [APTT Imaging @IMAGES@ Scheduled Medications lidocaine Topical Daily metoprolol 200 mg Oral BID nafcillin 2 g Intravenous Q4H oxymetazoline 1 spray Each Nare Daily QUEtiapine 100 mg Oral BID sodium chloride 10 mL Intravenous 2 times per day Continuous Infusions PRN Medications acetaminophen, albuterol, aluminum-magnesium hydroxide-simethicone, benztropine mesylate, c lonazePAM, asarvwkapfULMPO-rxtatx-ujooqiduy oral solution, haloperidol lactate, lip moisturi zer, LORazepam, morphine, morphine OR morphine OR morphine, ondansetron OR ondan setron, promethazine, simethicone, sodium chloride, sodium chloride, sodium chloride Balta Li MD 11/10/201510:42 AM onversion Transaction, Provider Unknown - 11/10/2015 4:45 AM PDTFormatting of this note might be different from th e original. Nurse Progress Note by Esteban Gotti RN at 11/10/15 7593 Author: Esteban Gotti RN Service: (none) Author Type: Registered Nurse Filed: 11/10/15 4206 Date of Service: 11/10/15444 Status: Addendum Bisque Brusher: Esteban Gotti RN (Registered Nurse) Related Notes: Original Note by Esteban Gotti RN (Registered Nurse) filed at 11/10/15 044 6 Patient is alert and oriented x4. Vital signs have been stable, no reports of pain or nause a. Patient has been cooperative and reports that he is anxious about going home. Sitter is a t bedside. No acute changes. Esteban Gotti RN onver patti Transaction, Provider Unknown - 11/09/2015 5:06 PM PDT Nurse Progress Note by Courtney Mosquera RN at [id number] Author: Courtney Mosquera RN Service: (none) Author Type: Registered Nurse Filed: 11/09/151707 Date of Service: 11/09/151705 Status: Signed Bisque Brusher: Courtney Mosquera RN (Registered Nurse) Pt alert and oriented. Sitter at bedside. Pt up with PT this shift. No complaints of pain. No acute changes from previous assessment. COURTNEY MOSQUERA RN rown, Prashanth Orozco DO - 11/09/2015 3:43 PM PDTFormatting of this note might be different from the [facility] ginal. Progress Notes by Prashanth Butterfield DO at 11/09/15 462 Author: Prashanth Butterfield DO Service: Hospitalist Author Type: Physician Filed: 11/09/151545 Date of Service: 11/09/151542 Status: Signed Bisque Brusher: Prashanth Butterfield DO (Physician) PROGRESS NOTE 11/09/2015 for Yang Ridley on the hospitalist service. 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 Status post intubation. Initially needing pressors also had presentation with sev ere hyponatremia and worsening renal failure. Later on transferred to the medical floor but had more decompensation and had to be transferred back to ICU with need of dialysis and rein tubation. He finally stabilized and returned to hospitalists. He is continuing IV nafcillin for IE. He is not a candidate for PICC and couldn't be placed elsewhere. Now he is almost fi nished with abx, day 39 of 42. He has had sinus tachy, on metoprolol, otherwise hemodynamica lly stable. He has expressed suicidal ideation, hallucinations, anxiety. Psych has seen him. There is a plan to check into a rehab once he DC's home to sister's house. 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 CVT surgery eval'd and rec med management. Sinus tachycardia Improved on metoprolol, monitor. Hallucinations, IVDA, anxiety, withdrawals Improved on Seroquel, Klonopin. Now patient c/o foggy mind and would like to decrease doses if possible. Will decrease Klonopin from tid to bid, and decrease Seroquel from 200 mg bid to 150 mg bid. Toxic metabolic encephalopathy, sepsis, acute resp failure with hypoxia, ARF All sequelae of above and all improving at this point. Hoarseness & dysphagia Continue speech therapy. Problem list: Principal Problem: Sepsis (HCC) Active Problems: Hyposmolality and/or hyponatremia MARCEL (acute kidney injury) (HCC) Leucocytosis Thrombocytopenia (HCC) Toxic metabolic encephalopathy Acute respiratory failure with hypoxia (HCC) Heroin abuse Methamphetamine abuse Tobacco abuse Acute septic pulmonary embolism (HCC) Acute infective endocarditis Moderate protein-calorie malnutrition (HCC) Hallucination, visual Severe protein-calorie malnutrition (HCC) Hoarseness Length of stay: 39 days DVT prophylaxis: SCD's Code status: full code Disposition: inpatient SUBJECTIVE Patient seen/examined sitting in bed, feeling better, went to gym, trying to get more activ e. OBJECTIVE Temp: [97.4 F (36.3 C)-98 F (36.7 C)] 97.9 F (36.6 C) (11/08 1153) BP: (125-139)/(85-99) 137/98 mmHg (11/08 115) Heart Rate: [107-121] 111 (11/08 115) Resp: [18-22] 20 (11/08 115) SpO2: [97 %-100 %] 97 % (11/08 1153) Physical exam: NAD AOx3 HENT - MMM, conjunctivae normal Heart - RRR no murmur, no JVD, normal radial / DP pulses B/L Lungs - CTAB/L no WRR, good effort Abd - SNTND +BSx4 Ext - no tenderness or edema Skin - normal no lesion CBC: Lab Results Component Value Date WBC 13.43* 11/09/2015 RBC 2.63* 11/09/2015 HGB 7.5* 11/09/2015 HCT 23.4* 11/09/2015 MCV 89.0 11/09/2015 MCH 28.7 11/09/2015 MCHC 32.2 11/09/2015 RDW 55.6* 11/09/2015 PLT 460* 11/09/2015 MPV 7.0 11/09/2015 DIFFTYPE AUTOMATED 11/09/2015 CMP: Lab Results Component Value Date NA 140 11/09/2015 K 4.1 11/09/2015 CL 105 11/09/2015 CO2 27 11/09/2015 ANIONGAP 12 11/09/2015 GLUF 91 11/09/2015 BUN 7* 11/09/2015 CREATININE 0.7 11/09/2015 BCR 10 11/09/2015 CA 8.8 11/09/2015 PROT 6.7 10/31/2015 ALB 1.5* 10/31/2015 GLOB 5.2* 10/31/2015 BILITOT 0.9 10/31/2015 ALP 71 10/31/2015 AST 15 10/31/2015 ALT 20 10/31/2015 EGFR >60 11/09/2015 MEDICATIONS clonazePAM 0.5 mg Oral BID lidocaine Topical Daily Magnesium 500 mg Oral BID metoprolol 150 mg Oral BID nafcillin 2 g Intravenous Q4H oxymetazoline 1 spray Each Nare Daily QUEtiapine 150 mg Oral BID sodium chloride 2 spray Each Nare 4x Daily sodium chloride 10 mL Intravenous 2 times per day PRN: acetaminophen, albuterol, aluminum-magnesium hydroxide-simethicone, benztropine mesylate, d ndtdrteinRRJBN-ovgtfg-cmdqxfmqa oral solution, haloperidol lactate, lip moisturizer, LORazep am, morphine, morphine OR morphine OR morphine, ondansetron OR ondansetron, prom ethazine, simethicone, sodium chloride, sodium chloride Signature: Prashanth Butterfield DO 11/09/2015 3:43 PM onversion Transaction , Provider Unknown - 11/09/2015 3:19 PM PDT Case Management by Katharina Sparks RN at 11/09/15 151 Author: Katharina Sparks RN Service: (none) Author Type: Registered Nurse Filed: 11/09/151518 Date of Service: 11/09/151518 Status: Signed Bisque Brusher: Katharina Sparks RN (Registered Nurse) No new CM needs per rounding. Katharina Sparks RN onver patti Transaction, Provider Unknown - 11/09/2015 10:12 AM PDT Therapy Progress Note by Elisa Morel PT at 11/09/15 1012 Author: Elisa Morel PT Service: (none) Author Type: Physical Therapist Filed: 11/09/15 1052 Date of Service: 11/09/15 1012 Status: Signed Bisque Brusher: Elisa Morel PT (Physical Therapist) 11/09/15 1012 PT Last Visit PT Received On 11/09/15 Reason for Treatment Deconditioning Requires PT Follow Up PT tech PT Eval/Reassessment Date 11/09/15 Precautions Other Precautions fall precautions Other Comments Comments Pt in bed, eager and agreeable to PT. Pt connected to IV and unable to complete s tair training. However independent in mobility, supervision only d/t precautions and IV man agement. Pt tolerated increase in resistance and increased time on Nustep. May continue mo bility w/RN/aide and may continue Nustep w/PT tech. May benefit from outpt PT for return to activity. Cognition Overall Cognitive Status WFL Orientation Level Oriented Bed Mobility Supine to Sit Independent Sit to Supine Independent Transfers Sit to/from Stand Independent Mobility Ambulation Assistance Independent;Supervision Maximal Ambulation Distance (feet) 400x2 Total Ambulation Distance (feet) 800 Distance limited by? Therapist/staff discretion Pattern WFL Assistive Device None Balance Balance Yes Dynamic Sitting Balance Dynamic Sitting-Balance Support No upper extremity support Dynamic Sitting-Balance Reaching for objects;Forward lean (able to don shoes independently) Sitting Dynamic Level of Assist Independent Equipment Use Equipment Used Nu Step Nu Step L3-4 BUE/LE x10min for global strength/conditioning to improve activity tolerance and promote functional mobility Modalities Modalities Other therapy Other Therapy ed on mobility techniques, activity pacing and progression, poc. Activity Tolerance Activity Tolerance Patient tolerated treatment without report of fatigue Nurse Made Aware ZOLTAN Valdez notified of pt mobility status and recommendations Safety Devices Safety Devices in Place Yes Type of Devices 1:1 sitter maintained Plan Treatment/Interventions Amb with mobility aide Recommendation Recommendations OP PT (substance abuse program) PT Ready for Discharge Yes Recommendation Comments Pt independent in mobility. May benefit from outpt PT to return to activity prn. onver patti Transaction, Provider Unknown - 11/09/2015 9:34 AM PDT Progress Notes by Milton Henderson RD at 11/09/15933 Author: Milton Henderson RD Service: (none) Author Type: Registered Dietitian Filed: 11/09/1534 Date of Service: 11/09/15933 Status: Signed Bisque Brusher: Milton Henderson RD (Registered Dietitian) 11/09/1528 Subjective Timepoint Follow up Pt c/o M risk follow up. Pt resting in bed, on room air, has sitter at bedside. Pt reports that his appetite continues to do well and he feels he is eating adequately, and tolerating po without any issues. Reported by Patient Fluid / Beverage Intake Oral Fluids Amount Pt drinking fluids ad radha. Liquid Meal Replacement or Supplement Pt reports that his is eating adequately and feels he does not need supplements, also states he isn't drinking the boost or eating boost pudding because he does not like the taste. Cancelled supplement orders per pt request. Food Intake Amount of Food Pt reports that he is eating 100% of his meals, is ordering 3 x a day, also ordering snacks at times. Charting confirms that pt has been eating 100% of his meals for at least the past 4 days. Today for breakfast pt reports eating 100%, had bagel with cream ch eese, fruit, 2 rasin bran cereal, and 2 milks. Type of Food / Meals General diet. Meal / Snack Pattern Pt ordering for himself. Anthropometrics Weight change No wt available to assess today. According to I/O's pt is + 9.8 L of fluid, r ecommend daily wt's. Biochemical data, medical tests, and procedures reviewed Biochemical data, medical tests, and procedures reviewed BUN 7 L. Recommendations Recommended energy needs Continue general diet as ordered. Encouraged continuation of 3 wel l balanced meals plus snacks daily. Will continue to monitor po intake for adequacy, further nutrition recs to follow as indicated. Nutritional Risk Nutritional risk Low Follow up date 11/16/[address] Gill Lowe MD - 11/09/2015 8:52 AM PDTFormatting of this note might be different from the or iginal. Progress Notes by Gill Way MD at 11/09/1552 Author: Gill Way MD Service: Infectious Disease Author Type: Physician Filed: 11/09/15 1248 Date of Service: 11/09/15851 Status: Signed Bisque Brusher: Gill Way MD (Physician) [facility] Service: Infectious Disease Progress Note Hospital Day: LOS: 39 days Post-Op Day: * No surgery found * SUBJECTIVE Reason for consult: Endocarditis Patient Summary: CC: Fever, chest pain and altered mental status From [employer] admission note on 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 male with significant history of tobacco and drug abuse using daily heroin and methamphetamine, also on Suboxone. He initially presented to [facility] for progressive weakness, lethargy, and ge neralized pain (mostly his chest, neck, back, knees, ankles and toes) for the past 7 days. H e noticed that his ankles and right knee were swollen but not warm or erythematous. Accordbetzy g to his girlfriend, he has been feeling sick and febrile for the past week with poor PO int elisha. Yesterday, she noticed that he seemed like he was hallucinating and talking to himself. He was very weak today that she had to assist him to get into the car to go the the ED. Exam at OSH was significant for point tenderness at the area of the cervical spine and posi tive Kernig's sign. LP was performed to rule out meningitis. IV antibiotics started, ceftria xone 2 gm and vancomycin [address] head and C-spine x-ray performed, MRI attempted but patient decompensated and was intubated for respiratory failure and airway protection. Significant labs: Na 114 (1435 hrs), BUN 81, Crea 2.48, WBC 19.9, Hb 11.6, Plt 51, Tbili 3. 6, AST 188, ALT 155, LA 1.7. CSF: clear, colorless, WBC 0, RBC 3. Protein 31. Glucose 50. Culture with no growth to d ate Blood cultures are reported to be growing GPCs at [facility] Transferred to [facility] for further care. MRI of brain and spine carried out with limited findi ngs due to non-contrast study. Evaluated by Nephrology, acute renal failure attributed to hemodynamics. Evaluated by Dr. Bhardwaj from orthopedics: Does not think patient has ankle septic joint and does not recomme nd surgical intervention. Echocardiogram showed moderate size mobile vegetation attached to the septal tricuspid valv e leaflet, moderate tricuspid regurgitation, moderate pulmonary hypertension with mildly enl arged right ventricle. Evaluated by CTS, surgery not recommended On 10/01, extubated On 10/02, he was transferred out of the ICU. On 10/04, patient had worsening mental status and also became tachypneic. He became more hy ponatremic with worsening renal function. Bilateral moderate sized pleural effusions were n oted on chest CT scan. Bedside ultrasound with bilateral pleural effusion, R>L. Left minimal and without echogenic ity suggestive of infectious pleural effusion. Left effusion is moderate with fibrin strands concerning for complicated/infectious pleural effusion. Right pig tail chest tube placed wi th purulent drainage. Head CT scan negative On 10/05, started on hemodialysis On October 08, left chest tube was placed. Reintubated on October 11. On 10/16-, patient was febrile to 101.4F. Blood cultures were sent. On 10/18, echocardiogram showed possible mobile vegetation at the posterior mitral valve leaf let along with known tricuspid valve vegetation. Right IJ hemodialysis catheter was placed. PICC was discontinued. He complained of abdominal pain and tenderness; CT scan was done salomon t showed mid to distal ileum and right colitis. On 10/19, transesophageal echocardiogram reported as showing no mitral vegetation with large, mobile vegetation at the tricuspid valve and severe tricuspid regurgitation. CT surgery ree valuated the patient; proceeding with medical management. Kidney biopsy done. INTERVAL: Afebrile, VSS, WBC up slightly (13.4) No events over weekend Feeling well Heart racing earlier today, denies anxiety or chest pain, palps No f/c/ns No soa or cough No diarrhea No rash Scheduled Medications clonazePAM 1 mg Oral BID lidocaine Topical Daily Magnesium 500 mg Oral BID metoprolol 150 mg Oral BID nafcillin 2 g Intravenous Q4H oxymetazoline 1 spray Each Nare Daily QUEtiapine 150 mg Oral BID sodium chloride 2 spray Each Nare 4x Daily sodium chloride 10 mL Intravenous 2 times per day Continuous Infusions PRN Medications acetaminophen, albuterol, aluminum-magnesium hydroxide-simethicone, benztropine mesylate, d zrdnybipfSPMEL-lriwzm-uqrjdnzwm oral solution, haloperidol lactate, lip moisturizer, LORazep am, morphine, morphine OR morphine OR morphine, ondansetron OR ondansetron, prom ethazine, simethicone, sodium chloride, sodium chloride OBJECTIVE Vital Signs: BP 125/85 mmHg | Pulse 121 | Temp(Src) 98 F (36.7 C) (Oral) | Resp 22 | Ht 1.702 m (5' 7") | Wt 60.601 kg (133 lb 9.6 oz) | BMI 20.92 kg/m2 | SpO2 98% Temp: [97.3 F (36.3 C)-98 F (36.7 C)] 98 F (36.7 C) (11/09 747) BP: (125-139)/(85-99) 125/85 mmHg (11/09 747) Heart Rate: [105-124] 121 (11/09 747) Resp: [18-22] 22 (11/09 747) SpO2: [98 %-100 %] 98 % (11/09 747) Physical Exam Vitals reviewed. General: A&O, pleasant male, cooperative and in NAD HEENT: Normocephalic, anicteric sclerae, conjunctival pallor. No oral thrush. Supple nec k. Lungs: No rales, wheezes or rhonchi CV: Normal rate, regular; systolic murmur Abdomen: ND, NTTP Skin: No active rash; prior extensive rash at upper and lower extremities improved with re sidual healing PICC site is unremarkable MS: No synovitis/effusions of LE's or UE's Neurologic: Oriented x 3; generalized weakness noted Lines: LUE PICC - no adjacent erythema, induration, pain DATA CBC: Lab Results Component Value Date WBC 13.43* 11/09/2015 RBC 2.63* 11/09/2015 HGB 7.5* 11/09/2015 HCT 23.4* 11/09/2015 MCV 89.0 11/09/2015 MCH 28.7 11/09/2015 MCHC 32.2 11/09/2015 RDW 55.6* 11/09/2015 PLT 460* 11/09/2015 MPV 7.0 11/09/2015 DIFFTYPE AUTOMATED 11/09/2015 WBC: Lab Results Component Value Date WBC 13.43* 11/09/2015 NEUTABSMAN 8.12* 11/05/2015 NEUTROABS 10.89* 11/09/2015 NEUTROMAN 69 11/05/2015 LYMPHOABS 1.76 11/05/2015 LYMPHOMAN 15 11/05/2015 LYMPHSABS 1.19 11/09/2015 LYMPHOPCT 8.87 11/09/2015 MONOABSMAN 0.47 11/05/2015 MONOMAN 4 11/05/2015 MONOPCT 6.02 11/09/2015 EOSINOABS 1.06* 11/05/2015 EOSINOMAN 9 11/05/2015 EOSABS 0.41 11/09/2015 EOSPCT 3.06 11/09/2015 BASOSABS 0.13* 11/09/2015 BASOPCT 0.97 11/09/2015 PLTEST INCREASED 11/05/2015 BANDSPCT 3 11/05/2015 METAABS 0.26* 10/13/2015 METAPCT 1 10/13/2015 MYELOABS 0.17* 10/09/2015 MYELOPCT 1 10/09/2015 COMDIFF SLIDE SCANNED, AGREES WITH AUTOMATED RESULTS. 10/18/2015 CMP: Lab Results Component Value Date NA 140 11/09/2015 K 4.1 11/09/2015 CL 105 11/09/2015 CO2 27 11/09/2015 ANIONGAP 12 11/09/2015 GLUF 91 11/09/2015 BUN 7* 11/09/2015 CREATININE 0.7 11/09/2015 BCR 10 11/09/2015 CA 8.8 11/09/2015 PROT 6.7 10/31/2015 ALB 1.5* 10/31/2015 GLOB 5.2* 10/31/2015 BILITOT 0.9 10/31/2015 ALP 71 10/31/2015 AST 15 10/31/2015 ALT 20 10/31/2015 EGFR >60 11/09/2015 Lab Results Component Value Date CRP 1.9* 11/09/2015 Lab Results Component Value Date ESR 79* 11/09/2015 Microbiology data: 10/29 blood cultures with no growth 10/29 catheter tip culture with no growth 10/29 urine culture with less than 10,000 CFU per mL of gram-negative rods Radiology data: Impression Left PICC tip in expected position. Bilateral nodularity consistent with septic emboli and multifocal infection. CHEST 1 VIEW [[id number]] PROBLEM LIST Principal Problem: Sepsis (HCC) Active Problems: Hyposmolality and/or hyponatremia MARCEL (acute kidney injury) (HCC) Leucocytosis Thrombocytopenia (HCC) Toxic metabolic encephalopathy Acute respiratory failure with hypoxia (HCC) Heroin abuse Methamphetamine abuse Tobacco abuse Acute septic pulmonary embolism (HCC) Acute infective endocarditis Moderate protein-calorie malnutrition (HCC) Hallucination, visual Severe protein-calorie malnutrition (HCC) Hoarseness ASSESSMENT & PLAN MSSA sepsis, tricuspid valve endocarditis -Patient has MSSA bacteremia, tricuspid valve endocarditis with septic pulmonary emboli re lated to IV drug use -Neck pain and back pain improved; noncontrast MRI of spine and brain on presentation show s no evidence of infection -No evidence of septic arthritis; evaluated by orthopedics -Blood cultures on admission here have no growth. -CT scan performed on October 08 confirmed continued pleural effusion on the left, chest tube placed and d/c'd. -On 10/17, he was febrile so blood cultures repeated on 10/17 with no growth. TTE showed tr icuspid valve vegetation and a new mitral valve vegetation. Transesophageal echocardiogram s howed no MV vegetation; Dr. Arias, CTS recommends to continue medical management. Right u pper extremity PICC d/c'd on 10/18, catheter tip culture with no growth. Right IJ hemodialysis catheter removed at this time. New PICC placed on 10/20 -When he became febrile, tachycardic and tachypneic on 10/29, antibiotics had been broadene d to IV vancomycin/Zosyn. No new blood culture growth. CXR shows stable findings. Mental st atus back to baseline. No new focus of infection. Transitioned back to IV nafcillin -continue IV nafcillin, day 39 of 42 Acute hypoxemic respiratory failure - resolved Hallucinations - Not likely to be secondary to nafcillin, despite maximal dosing. - Fluctuates, will continue to monitor. Psych evaluated previously MARCEL - resolved. - Renal biopsy done on 10/19, results show acute tubular injury. Abnormal LFTs - resolved Petechial/purpuric rash -Suspected ecthyma. Better. Skin care. IV drug use -Not a candidate for outpatient IV antibiotics. HIV negative. Will need drug rehab Code Status: Full Code Gill Way MD 11/09/2015 onversio n Transaction, Provider Unknown - 11/09/2015 5:34 AM PDTFormatting of this note might be di fferent from the original. Nurse Progress Note by Jewell Gerard RN at 11/09/1534 Author: Jewell Gerard RN Service: (none) Author Type: Registered Nurse Filed: 11/09/15 0539 Date of Service: 11/09/15533 Status: Signed Bisque Brusher: Jewell Gerard RN (Registered Nurse) A/Ox4, high diastolic bp, Afebrile. Reports head ache, PRN pain medication provide. Patient currently sleeping comfortably. Sitter at bedside. No acte changes noted. Call light within reach will continue to monitor. onver patti Transaction, Provider Unknown - 11/08/2015 6:43 PM PDT Nurse Progress Note by Kaylee Holloway RN at 11/08/151842 Author: Kaylee Holloway RN Service: (none) Author Type: Registered Nurse Filed: 11/08/15 217 Date of Service: 11/08/151842 Status: Addendum Bisque Brusher: Kaylee Holloway RN (Registered Nurse) Related Notes: Original Note by Kaylee Holloway RN (Registered Nurse) filed at 11/08/151845 Pt resting in bed watching tv. Walked around hallway with sitter. No changes in earlier ass essment, gave tylenol x1 for headache. Will continue to monitor. Kaylee Holloway RN onver patti Transaction, Provider Unknown - 11/08/2015 4:48 PM PDT Therapy Progress Note by Omid Menjivar PT at 11/08/15 7906 Author: Omid Menjivar PT Service: (none) Author Type: Physical Therapist Filed: 11/08/15 1732 Date of Service: 11/08/15 1648 Status: Signed Bisque Brusher: Omid Menjivar PT (Physical Therapist) 11/08/15 1648 PT Last Visit PT Received On 11/08/15 Reason for Treatment Deconditioning Requires PT Follow Up Yes Follow up PT Only? No Assistance Required 1 person Precautions Other Precautions fall risk Other Comments Comments pt. sitting in chair when therapist arrived and agreeable to Pt, pt ambulated 300' then completed the Nustep on lvl 2 x 10 minutes, pt then completed 2 flight of stairs with breaks approx every 10 stairs, pt. deconditioned but doing better then previously when this therapist saw him. pt. then ambulated back to his room 200' with no AD independently. pt. sitting on EOB when session was completed. Cognition Overall Cognitive Status WFL Orientation Level Oriented Transfers Sit to/from Stand Independent Mobility Ambulation Assistance Independent Maximal Ambulation Distance (feet) 300 Total Ambulation Distance (feet) 500 Distance limited by? Therapist/staff discretion Pattern WFL Assistive Device None Stairs Assistance Standby assist Number of Stairs 2 flights Number of stairs limited by? Therapist/staff discretion Stair Management Technique [id number] Equipment Use Equipment Used Nu Step Nu Step x 10 minutes on lvl 3 Activity Tolerance Activity Tolerance Patient tolerated treatment without report of fatigue Nurse Made Aware yes Safety Devices Safety Devices in Place Yes Type of Devices 1:1 sitter maintained Restraints Initially in Place No Plan Treatment/Interventions Continue per Primary PT POC Progress Progressing toward goals Recommendation Recommendations Other (comment) (IP/OP drug rehab program after finished IV antibiotics ) Prashanth Baltazar DO - 11/08/2015 11:13 AM PDTFormatting of this note might be different from the gregory mer. Progress Notes by Prashanth Butterfield DO at 11/08/15 1113 Author: Prashanth Butterfield DO Service: Hospitalist Author Type: Physician Filed: 11/08/15 1131 Date of Service: 11/08/15 1113 Status: Signed Bisque Brusher: Prashanth Butterfield DO (Physician) PROGRESS NOTE 11/08/2015 for Yang Ridley on the hospitalist service. 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 CVT surgery eval'd and rec med management. Sinus tachycardia Improved on metoprolol, monitor. Hallucinations, IVDA, anxiety, withdrawals Improved on Seroquel, Klonopin. Now patient c/o foggy mind and would like to decrease doses if possible. Will decrease Klonopin from tid to bid, and decrease Seroquel from 200 mg bid to 150 mg bid. Will need detox/rehab/inpt psych at [place], plan to discuss further with psych when close to [place] . Toxic metabolic encephalopathy, sepsis, acute resp failure with hypoxia, ARF All sequelae of above and all improving at this point. Hoarseness & dysphagia Continue speech therapy. Problem list: Principal Problem: Sepsis (HCC) Active Problems: Hyposmolality and/or hyponatremia MARCEL (acute kidney injury) (HCC) Leucocytosis Thrombocytopenia (HCC) Toxic metabolic encephalopathy Acute respiratory failure with hypoxia (HCC) Heroin abuse Methamphetamine abuse Tobacco abuse Acute septic pulmonary embolism (HCC) Acute infective endocarditis Moderate protein-calorie malnutrition (HCC) Hallucination, visual Severe protein-calorie malnutrition (HCC) Hoarseness Length of stay: 38 days DVT prophylaxis: SCD's Code status: full code Disposition: inpatient SUBJECTIVE Patient seen/examined sitting in bed, watching [place]hat Gump again, c/o foggy mind. OBJECTIVE Temp: [97.4 F (36.3 C)-98.6 F (37 C)] 97.4 F (36.3 C) (11/07 900) BP: (115-141)/(81-98) 133/93 mmHg (11/07 900) Heart Rate: [104-124] 124 (11/07 900) Resp: [18-20] 20 (11/07 900) SpO2: [98 %-100 %] 98 % (11/07 900) Weight: [60.601 kg (133 lb 9.6 oz)] 60.601 kg (133 lb 9.6 oz) (11/07 320) Physical exam: NAD Alert HENT - MMM, conjunctivae normal Heart - RRR no murmur, no JVD, normal radial / DP pulses B/L Lungs - CTAB/L no WRR, good effort Abd - SNTND +BSx4 Ext - no tenderness or edema Skin - normal no lesion CBC: Lab Results Component Value Date WBC 11.76* 11/05/2015 RBC 2.68* 11/05/2015 HGB 7.6* 11/05/2015 HCT 23.6* 11/05/2015 MCV 87.9 11/05/2015 MCH 28.5 11/05/2015 MCHC 32.4 11/05/2015 RDW 51.6 11/05/2015 PLT 521* 11/05/2015 MPV 6.8 11/05/2015 DIFFTYPE MANUAL 11/05/2015 CMP: Lab Results Component Value Date NA 141 11/05/2015 K 4.3 11/05/2015 CL 106 11/05/2015 CO2 29 11/05/2015 ANIONGAP 10 11/05/2015 GLUF 82 11/05/2015 BUN 11 11/05/2015 CREATININE 0.7 11/05/2015 BCR 16 11/05/2015 CA 8.7 11/05/2015 PROT 6.7 10/31/2015 ALB 1.5* 10/31/2015 GLOB 5.2* 10/31/2015 BILITOT 0.9 10/31/2015 ALP 71 10/31/2015 AST 15 10/31/2015 ALT 20 10/31/2015 EGFR >60 11/05/2015 MEDICATIONS clonazePAM 1 mg Oral BID lidocaine Topical Daily Magnesium 500 mg Oral BID metoprolol 150 mg Oral BID nafcillin 2 g Intravenous Q4H oxymetazoline 1 spray Each Nare Daily QUEtiapine 150 mg Oral BID sodium chloride 2 spray Each Nare 4x Daily sodium chloride 10 mL Intravenous 2 times per day PRN: acetaminophen, albuterol, aluminum-magnesium hydroxide-simethicone, benztropine mesylate, d kkkilsvkzKITLK-ktfehs-hpjmetsnn oral solution, haloperidol lactate, lip moisturizer, LORazep am, morphine, morphine OR morphine OR morphine, ondansetron OR ondansetron, prom ethazine, simethicone, sodium chloride, sodium chloride Signature: Prashanth Butterfield DO 11/08/2015 11:13 AM onversion Transaction , Provider Unknown - 11/07/2015 4:57 PM PDT Nurse Progress Note by Polina Schilling RN at 11/07/151656 Author: Polina Schilling RN Service: (none) Author Type: Registered Nurse Filed: 11/07/151657 Date of Service: 11/07/151656 Status: Signed Bisque Brusher: Polina Schilling RN (Registered Nurse) Pt sitting in chair, looking out window and resting comfortably. Sitter at bedside. No tilley ges since earlier assessment. POLINA SCHILLING Prashanth Baltazar DO - 11/07/2015 2:16 PM PDTFormatting of this note might be different from the gregory ginal. Progress Notes by Prashanth Butterfield DO at 11/07/151415 Author: Prashanth Butterfield DO Service: Hospitalist Author Type: Physician Filed: 11/07/151415 Date of Service: 11/07/151415 Status: Signed Bisque Brusher: Prashanth Butterfield DO (Physician) PROGRESS NOTE 11/07/2015 for Yang Ridley on the hospitalist service. 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 CVT surgery eval'd and rec med management. Sinus tachycardia Improved on metoprolol, monitor. Hallucinations, IVDA, anxiety, withdrawals Improved on Seroquel, Klonopin. Will need detox/rehab/inpt psych at [place], plan to discuss fur ther with psych when close to [place]. Toxic metabolic encephalopathy, sepsis, acute resp failure with hypoxia, ARF All sequelae of above and all improving at this point. Hoarseness & dysphagia Eval'd by ENT, continue speech therapy. Problem list: Principal Problem: Sepsis (HCC) Active Problems: Hyposmolality and/or hyponatremia MARECL (acute kidney injury) (HCC) Leucocytosis Thrombocytopenia (HCC) Toxic metabolic encephalopathy Acute respiratory failure with hypoxia (HCC) Heroin abuse Methamphetamine abuse Tobacco abuse Acute septic pulmonary embolism (HCC) Acute infective endocarditis Moderate protein-calorie malnutrition (HCC) Hallucination, visual Severe protein-calorie malnutrition (HCC) Hoarseness Length of stay: 37 days DVT prophylaxis: SCD's Code status: full code Disposition: inpatient SUBJECTIVE Patient seen/examined sitting in chair looking out window, it's a olga lidia day, sitter present , no complaints or concerns at this time. OBJECTIVE Temp: [97.3 F (36.3 C)-98.6 F (37 C)] 98.6 F (37 C) (11/06 1230) BP: (118-140)/(84-98) 118/84 mmHg (11/06 1230) Heart Rate: [98-121] 117 (11/06 1230) Resp: [18-22] 18 (11/06 1230) SpO2: [98 %-100 %] 98 % (11/06 1230) Weight: [58.968 kg (130 lb)] 58.968 kg (130 lb) (11/06 0356) Physical exam: NAD Alert HENT - MMM, conjunctivae normal Heart - RRR no murmur, no JVD, normal radial / DP pulses B/L Lungs - CTAB/L no WRR, good effort Abd - SNTND +BSx4 Ext - no tenderness or edema Skin - normal no lesion CBC: Lab Results Component Value Date WBC 11.76* 11/05/2015 RBC 2.68* 11/05/2015 HGB 7.6* 11/05/2015 HCT 23.6* 11/05/2015 MCV 87.9 11/05/2015 MCH 28.5 11/05/2015 MCHC 32.4 11/05/2015 RDW 51.6 11/05/2015 PLT 521* 11/05/2015 MPV 6.8 11/05/2015 DIFFTYPE MANUAL 11/05/2015 CMP: Lab Results Component Value Date NA 141 11/05/2015 K 4.3 11/05/2015 CL 106 11/05/2015 CO2 29 11/05/2015 ANIONGAP 10 11/05/2015 GLUF 82 11/05/2015 BUN 11 11/05/2015 CREATININE 0.7 11/05/2015 BCR 16 11/05/2015 CA 8.7 11/05/2015 PROT 6.7 10/31/2015 ALB 1.5* 10/31/2015 GLOB 5.2* 10/31/2015 BILITOT 0.9 10/31/2015 ALP 71 10/31/2015 AST 15 10/31/2015 ALT 20 10/31/2015 EGFR >60 11/05/2015 MEDICATIONS clonazePAM 1 mg Oral TID lidocaine Topical Daily Magnesium 500 mg Oral BID metoprolol 150 mg Oral BID nafcillin 2 g Intravenous Q4H oxymetazoline 1 spray Each Nare Daily QUEtiapine 200 mg Oral BID sodium chloride 2 spray Each Nare 4x Daily sodium chloride 10 mL Intravenous 2 times per day PRN: acetaminophen, albuterol, aluminum-magnesium hydroxide-simethicone, benztropine mesylate, d llwifaxfxVEKDR-eumgnd-clpwoolam oral solution, haloperidol lactate, lip moisturizer, LORazep am, morphine, morphine OR morphine OR morphine, ondansetron OR ondansetron, prom ethazine, simethicone, sodium chloride, sodium chloride Signature: Prashanth Butterfield DO 11/07/2015 2:16 PM onversion Transaction , Provider Unknown - 11/07/2015 5:12 AM PDT Nurse Progress Note by Baylee Dominguez RN at 11/07/15511 Author: Baylee Dominguez RN Service: (none) Author Type: Registered Nurse Filed: 11/07/15518 Date of Service: 11/07/15511 Status: Signed Bisque Brusher: Baylee Dominguez RN (Registered Nurse) No acute changes since previous assessment. Pt continues to have ST. Pt appeared to have sl ept well through the night. Sitter in the room. Will continue with IV abx, will continue to monitor. Baylee Dominguez RN onver patti Transaction, Provider Unknown - 11/06/2015 6:15 PM PDT Nurse Progress Note by Antonina Mueller RN at 11/06/151814 Author: Antonina Mueller RN Service: (none) Author Type: Registered Nurse Filed: 11/06/151815 Date of Service: 11/06/151814 Status: Signed Bisque Brusher: Antonina Mueller RN (Registered Nurse) No acute changes throughout shift, pt continues to have ST heart rate. Pt exhibited mild a nxiety with restless leg, expressed desire to get out of bed, pt ambulated halls with sitter this afternoon. Assessment complete, visualized hourly, call light within reach, sitter in room, needs addr essed, will continue to monitor. onver patti Transaction, Provider Unknown - 11/06/2015 3:40 PM PDT Therapy Progress Note by GISELA Serrano at 11/06/15 1549 Author: GISELA Serrano Service: (none) Author Type: Occupational Therapist Filed: 11/06/15 7497 Date of Service: 11/06/151539 Status: Signed Bisque Brusher: GISELA Serrano (Occupational Therapist) 11/06/15 142 Precautions Other Precautions Fall risk Home Environment Type of Home Home one story Home Exterior Layout 4-6 steps Home Interior Layout Lives on main level with bedroom/bathroom Bathroom Shower/Tub Tub/shower unit Bathroom Toilet Standard Bathroom Equipment Other (Comment) (none) Bathroom Accessibility Accessible via walker Home Equipment None Additional Comments previous reports differ from current, unsure how accurate home environe mtn information is at this time Prior Function Level of [place] Independent with functional mobility;Independent with ADLs;Independe nt with IADLs;Driving in community (Pt reports not driving ) Lives With Significant other Receives Help From Family;Friend(s) ADL Assistance Independent Home ADL's Independent Employment Unemployed Leisure Hobbies-yes (Comment) (skateboarding, playing the guitar) ADL Additional Comments Pt was sittin gup in bed watching movies with the sitter present when O T arrived for evaluation. Reviewed status with pt and plan for his discharge to his sister' s home to complete some intensive outpatient drug rehab. Pt is Mod I for ADL's at this time . He is requiring some assist to manage the IV pole. Completed UE exercises with pt as he has not been doing them up until this point. Vision-Basic Assessment Current Vision No visual deficits (Pt reports no current issues w/ vision) Cognition Overall Cognitive Status WFL Orientation Level Oriented Sensation Light Touch No apparent deficits RUE Assessment RUE Assessment (weakness) LUE Assessment LUE Assessment (weakness) Hand Function Gross Grasp Functional Assessment Assessment Decreased UE strength;Decreased cognition;Decreased endurance Prognosis Good Goal Formulation Patient Arm Goals Pt Will Complete Theraband Exer B UE;2 sets;5 reps;Level 1 Theraband;Handouts Plan Treatment Interventions UE strengthening;Therapeutic exercises;Endurance training Progress (Initiate OT POC) OT Frequency 2-4 x/wk Care Duration (Days) 7 Days Requires OT Follow Up Awaiting tx order Recommendation Recommendation (Discharge to safe family home to complete IOP treatment) Equipment Recommended Other (comment) (Defer at this time) OT Ready for Discharge Yes 11/06/15 1420 OT Last Visit OT Received On 11/06/15 Reason for Treatment Other (comment) (Sepsis) Requires OT Follow Up Awaiting tx order OT Eval/Reassessment Date 11/06/15 Assistance Required 1 person Skip Operator Needed No Family/Caregiver Present No Requires OT Follow Up Awaiting tx order Precautions Other Precautions Fall risk Other Comments Comments Pt is a 30 yo male who was admitted back in September for Sepsis and respiratory failur e. He continues to require IV abx at this time and has a discharge plan to return to his [facility] to stay while he completes an Intensive Outpatient Drug Abuse treatment program. Upon OT arrival to his room, pt demo'd a weakened cough, did not produce any secretions. H is chart was reviewed and the work he has been doing with PT up until this point. He states he is performing all of his ADL's with Mod Ind. for assist with the IV pole only. He repor ts he has received UE handouts along with therbanad but has not up until this point used the m at all. A new handout was provided and the exercises were reviewed with him along with ca s sitter to ensure they get reviewed with him again this day. Will keep on the caseload to check in regharding his follow through with UE exercises as PT noted Pt has just started to follow through with their exercises as well. Therapeutic Exercise - Strength Strength Yes (yellow theraband) Exercise Tools Exercise Tools Yes Theraband yellow Activity Tolerance Activity Tolerance Patient tolerated treatment well (Pt fatigues easily) Safety Devices Safety Devices in Place Yes Type of Devices Call lite in place;1:1 sitter Plan Treatment Interventions UE strengthening;Therapeutic exercises;Endurance training Progress (Initiate OT POC) OT Frequency 2-4 x/wk Care Duration (Days) 7 Days Recommendation Recommendation (Discharge to safe family home to complete IOP treatment) Equipment Recommended Other (comment) (Defer at this time) OT Ready for Discharge Yes Education Completed: Education Topic: OT role, UE exercises Completed with: Patient Completed by: Verbal Education, Written Material, Demonstration Response to Education: Stated Understanding, Returned Demonstration Occupational Therapy Plan: Initiate OT POC The following recommendations are made for d/c planning at this time: Return to home w/ family support Barriers to d/c at this time include: Home environment Physical deficits impacting functional independence AnawPrashanth cavanaugh DO - 11/06/2015 1:47 PM PDTFormatting of this note might be different from the [facility] ginal. Progress Notes by Prashanth Butterfield DO at 11/06/15 7132 Author: Prashanth Butterfield DO Service: Hospitalist Author Type: Physician Filed: 11/06/15 4086 Date of Service: 11/06/151346 Status: Signed Bisque Brusher: Prashanth Butterfield DO (Physician) PROGRESS NOTE 11/06/2015 for Yang Ridley on the hospitalist service. 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 CVT surgery eval'd and rec med management. Sinus tachycardia Improved on metoprolol, monitor. Hallucinations, IVDA, anxiety, withdrawals Improved on Seroquel, Klonopin. Will need detox/rehab/inpt psych at [place], plan to discuss fur ther with psych when close to [place]. Toxic metabolic encephalopathy, sepsis, acute resp failure with hypoxia, ARF All sequelae of above and all improving at this point. Hoarseness & dysphagia Eval'd by ENT, continue speech therapy. Problem list: Principal Problem: Sepsis (HCC) Active Problems: Hyposmolality and/or hyponatremia MARCEL (acute kidney injury) (HCC) Leucocytosis Thrombocytopenia (HCC) Toxic metabolic encephalopathy Acute respiratory failure with hypoxia (HCC) Heroin abuse Methamphetamine abuse Tobacco abuse Acute septic pulmonary embolism (HCC) Acute infective endocarditis Moderate protein-calorie malnutrition (HCC) Hallucination, visual Severe protein-calorie malnutrition (HCC) Hoarseness Length of stay: 36 days DVT prophylaxis: SCD's Code status: full code Disposition: inpatient SUBJECTIVE Patient seen/examined lying in bed, watching Batman vs Superman, sitter present, no complai nts or concerns at this time. OBJECTIVE Temp: [97.4 F (36.3 C)-98.4 F (36.9 C)] 97.8 F (36.6 C) (11/05 1142) BP: (121-127)/(85-92) 121/85 mmHg (11/05 1142) Heart Rate: [99-122] 101 (11/05 1142) Resp: [18-21] 18 (11/05 1142) SpO2: [98 %-99 %] 99 % (11/05 1142) Weight: [58.968 kg (130 lb)] 58.968 kg (130 lb) (11/05 0300) Physical exam: NAD Alert HENT - MMM, conjunctivae normal Heart - RRR no murmur, no JVD, normal radial / DP pulses B/L Lungs - CTAB/L no WRR, good effort Abd - SNTND +BSx4 Ext - no tenderness or edema Skin - normal no lesion CBC: Lab Results Component Value Date WBC 11.76* 11/05/2015 RBC 2.68* 11/05/2015 HGB 7.6* 11/05/2015 HCT 23.6* 11/05/2015 MCV 87.9 11/05/2015 MCH 28.5 11/05/2015 MCHC 32.4 11/05/2015 RDW 51.6 11/05/2015 PLT 521* 11/05/2015 MPV 6.8 11/05/2015 DIFFTYPE MANUAL 11/05/2015 CMP: Lab Results Component Value Date NA 141 11/05/2015 K 4.3 11/05/2015 CL 106 11/05/2015 CO2 29 11/05/2015 ANIONGAP 10 11/05/2015 GLUF 82 11/05/2015 BUN 11 11/05/2015 CREATININE 0.7 11/05/2015 BCR 16 11/05/2015 CA 8.7 11/05/2015 PROT 6.7 10/31/2015 ALB 1.5* 10/31/2015 GLOB 5.2* 10/31/2015 BILITOT 0.9 10/31/2015 ALP 71 10/31/2015 AST 15 10/31/2015 ALT 20 10/31/2015 EGFR >60 11/05/2015 MEDICATIONS clonazePAM 1 mg Oral TID lidocaine Topical Daily Magnesium 500 mg Oral BID metoprolol 150 mg Oral BID nafcillin 2 g Intravenous Q4H oxymetazoline 1 spray Each Nare Daily QUEtiapine 200 mg Oral BID sodium chloride 2 spray Each Nare 4x Daily sodium chloride 10 mL Intravenous 2 times per day PRN: acetaminophen, albuterol, aluminum-magnesium hydroxide-simethicone, benztropine mesylate, d iczgezahvRELVD-bgodgp-hpanzmqlr oral solution, haloperidol lactate, lip moisturizer, LORazep am, morphine, morphine OR morphine OR morphine, ondansetron OR ondansetron, prom ethazine, simethicone, sodium chloride, sodium chloride Signature: Prashanth Butterfield DO 11/06/2015 1:47 PM onversion Transaction , Provider Unknown - 11/06/2015 1:17 PM PDT Therapy Progress Note by CYNDI Victor at 11/06/151316 Author: CYNDI Victor Service: (none) Author Type: Massage Therapist Filed: 11/06/151316 Date of Service: 11/06/151316 Status: Signed Bisque Brusher: CYNDI Victor (Massage Therapist) 11/06/151316 Massage Therapy Interventions Locations Back;Neck;Shoulder Massage Therapy Technique Effleurage;Petrissage;[place]akut massage Response to treatment Decreased muscle tension onver patti Transaction, Provider Unknown - 11/06/2015 9:00 AM PDT Therapy Progress Note by Omid Menjivar, PT at 11/06/15899 Author: Omid Menjivar, FANNIE Service: (none) Author Type: Physical Therapist Filed: 11/06/15933 Date of Service: 11/06/15899 Status: Signed Bisque Brusher: Omid Menjivar, PT (Physical Therapist) 08/19/16 0900 PT Last Visit PT Received On 11/06/15 Reason for Treatment Deconditioning Requires PT Follow Up Yes Follow up PT Only? No Assistance Required 1 person Skip Operator Needed No Precautions Other Precautions fall risk Other Comments Comments pt. supine in bed and agreeable to PT, pt. ambulated 350' with no AD and SBA, pt. completed stairs x 10 with R handrail when ascedning with SBA (pt. looked more stable today with stairs then previous trial), pt Supervision for all transfers. pt. has some lateral sw ay when he starts to fatigue. pt. supine in bed at end of session with call light in reach, sitter in room. Cognition Overall Cognitive Status WFL Orientation Level Oriented Bed Mobility Supine to Sit Supervision Sit to Supine Supervision Transfers Sit to/from Stand Supervision Mobility Ambulation Assistance Standby assist Maximal Ambulation Distance (feet) 300 Total Ambulation Distance (feet) 300 Distance limited by? Therapist/staff discretion Pattern Alternating;Decreased jaylin Assistive Device None Stairs Assistance Standby assist Number of Stairs 10 Number of stairs limited by? Therapist/staff discretion Stair Management Technique [id number] Activity Tolerance Activity Tolerance Patient tolerated treatment without report of fatigue Nurse Made Aware yes Safety Devices Safety Devices in Place Yes Type of Devices 1:1 sitter maintained Restraints Initially in Place No Plan Treatment/Interventions Continue per Primary PT POC Progress Progressing toward goals Recommendation Recommendations Other (comment) (IP/OP drug rehab program after finished IV antibiotics ) onver patti Transaction, Provider Unknown - 11/06/2015 5:31 AM PDT Nurse Progress Note by Baylee Dominguez RN at 11/06/15530 Author: Baylee Dominguez RN Service: (none) Author Type: Registered Nurse Filed: 11/06/15 0534 Date of Service: 11/06/15530 Status: Signed Bisque Brusher: Baylee Dominguez RN (Registered Nurse) Pt slept well through the night. No acute change since previous assessment. Vitals stable t hrough the shift. Sitter at bedside. Will continue with IV abx. Baylee Dominguez RN onver patti Transaction, Provider Unknown - 11/05/2015 5:26 PM PDT Progress Notes by Katie Salvador RN at 11/05/15 172 Author: Katie Salvador RN Service: (none) Author Type: Registered Nurse Filed: 11/05/15 1729 Date of Service: 11/05/151725 Status: Signed Bisque Brusher: Katie Salvador RN (Registered Nurse) No acute change in Pt condition since shift assessment. Pt continues to do well with ambula tion and is eager to stay active. Vital signs remain stable. Call light within reach. Sitter at bedside. Will continue to monitor. Katie Salvador RN onver patti Transaction, Provider Unknown - 11/05/2015 2:25 PM PDT Therapy Progress Note by Omid Menjivar PT at 11/05/15 1425 Author: Omid Menjivar PT Service: (none) Author Type: Physical Therapist Filed: 11/05/15 1501 Date of Service: 11/05/151424 Status: Signed Bisque Brusher: Omid Menjivar PT (Physical Therapist) 11/05/15 1425 PT Last Visit PT Received On 11/05/15 Reason for Treatment Deconditioning Requires PT Follow Up Yes Follow up PT Only? No Assistance Required 1 person Skip Operator Needed No Precautions Other Precautions fall risk Other Comments Comments pt. supine in bed and agreeable to PT, pt ambulated 250' with no AD with SBA, pt. then completed the Nustep on lvl 2 for 8' and lvl 3 for 2 minutes for a total of 10 minutes, pt. then completed 3 stairs with R handrail ascending with SBA. pt. then ambulated 250' wi th SBA with no AD. pt. supine in bed with call light in reach, sitter in room. Cognition Overall Cognitive Status WFL Orientation Level Oriented Bed Mobility Supine to Sit Supervision Sit to Supine Supervision Transfers Sit to/from Stand Standby assist Mobility Ambulation Assistance Standby assist Maximal Ambulation Distance (feet) 250 Total Ambulation Distance (feet) 500 Distance limited by? Therapist/staff discretion Pattern Alternating;Decreased jaylin Assistive Device None Stairs Assistance Standby assist Number of Stairs 3 Number of stairs limited by? Therapist/staff discretion Stair Management Technique [id number];Rail on right ascending Equipment Use Equipment Used Nu Step Nu Step x 10 minutes 8 on lvl 2 2 on level 3 Activity Tolerance Activity Tolerance Patient limited by fatigue Nurse Made Aware yes Safety Devices Safety Devices in Place Yes Type of Devices 1:1 sitter maintained Restraints Initially in Place No Plan Treatment/Interventions Continue per Primary PT POC Progress Progressing toward goals Recommendation Recommendations Other (comment) (IP/OP drug rehab program after finished IV antibiotics ) onver ptati Transaction, Provider Unknown - 11/05/2015 1:37 PM PDT Therapy Progress Note by ZEINAB RiversSOFTWARE CONSULTANT at 11/05/15 1337 Author: HENRIETTA Rivers Service: (none) Author Type: Speech and Manager Medical Device ologist Filed: 11/05/15 1341 Date of Service: 11/05/15 1337 Status: Addendum Bisque Brusher: ZEINAB RiversSOFTWARE CONSULTANT (Speech and Language Pathologist) Related Notes: Original Note by ZEINAB RiversSOFTWARE CONSULTANT (Speech and Language Pathologis t) filed at 11/05/15 1338 11/05/15 1325 SOFTWARE CONSULTANT Last Visit SOFTWARE CONSULTANT Received On 11/05/15 Requires SOFTWARE CONSULTANT Follow Up No Swallowing Assessment Eval Swallowing Treatment Yes Initial Swallow Assessment Temperature Spikes Noted No Respiratory Status Room air Behavior/Cognition Alert;Cooperative Dentition Adequate Vision Functional for self-feeding Patient Positioning Upright in chair Baseline Vocal Quality Weak;Breathy Volitional Cough Weak Volitional Swallow WFL Thin Presentation Cup;Self Fed Oral Phase Thin WFL Pharyngeal Phase No overt signs or symptoms of aspiration;Delayed swallow initiated;Decreas ed laryngeal elevation upon palpation;Other (Comment) (x 1 across 7 ounces, reported too large of sip) Regular Presentation Self Fed Oral Phase WFL Pharyngeal Phase No overt signs or symptoms of aspiration Recommendations Liquids Consistency Recommendations Thin Diet Consistency Recommendation Regular Recommendations 1:1 supervision;Set up with meals Risk for Aspiration Mild Compensatory Swallowing Strategies Upright as possible for all oral intake;Remain upright f or 30 minutes after meals;Slow rate presentation;Small bites/sips;Eat/feed slowly;Alternate solids and liquids Recommended Form of Meds Meds with recommended liquid Summary Pt agreeable to dysphagia treatment, seen for diet tolerance. Pt demo'd cough x 1 a cross seven ounces. Pt reports he took "too large of sip." Rec pt remain on regular diet and thin liquids, with continued 1:1 supervision d/t anxiety. ST to d/c at this time d/t pt und erstnading re safe swallow strategies and diet tolerance. Staff Notified RN Plan of Care Treatment Plan Discharge from ST at this time AVS Documentation Yes Diet Regular: no restrictions Liquids Thin liquids: regular consistency SOFTWARE CONSULTANT Ready for Discharge Yes Dysphagia Goals Cotton Weigher Goals Safe/efficient oral intake Pt will have safe/efficient oral intake Thin liquids;Regular diet;Goal met;With min cues onver patti Barnes, Provider Unknown - 11/05/2015 10:38 AM PDT Therapy Progress Note by Omid Menjivar PT at 11/05/15 1038 Author: Omid Menjivar PT Service: (none) Author Type: Physical Therapist Filed: 11/05/15 1136 Date of Service: 11/05/15 1038 Status: Signed Bisque Brusher: Omid Menjivar PT (Physical Therapist) 11/05/15 1038 PT Last Visit PT Received On 11/05/15 Reason for Treatment Deconditioning Requires PT Follow Up Yes Follow up PT Only? No Assistance Required 1 person Skip Operator Needed No Precautions Other Precautions fall risk Other Comments Comments pt. standing up in room when PT entered and agreeable to PT. pt. ambulated 310' w ith no AD with no lateral sway and no LOB. pt. then completed 10 stairs with handrail on with SBA, pt. needed a couple of minutes of recovery before coming back down the stairs with SBA. pt. sitting EOB at the end of the therapy session with sitter in room, call light in reach Cognition Overall Cognitive Status WFL Orientation Level Oriented Transfers Sit to/from Stand Standby assist Mobility Ambulation Assistance Standby assist Maximal Ambulation Distance (feet) 300 Total Ambulation Distance (feet) 300 Distance limited by? Patient's ability Pattern Alternating;Decreased jaylin Assistive Device None Stairs Assistance Standby assist Number of Stairs 10 Number of stairs limited by? Patient's ability Stair Management Technique [id number] Modalities Modalities Other therapy Other Therapy ed. on safe mobility with stairs Activity Tolerance Activity Tolerance Patient limited by fatigue Nurse Made Aware yes Safety Devices Safety Devices in Place Yes Type of Devices 1:1 sitter maintained Restraints Initially in Place No Plan Treatment/Interventions Continue per Primary PT POC Progress Progressing toward goals Recommendation Recommendations Other (comment) (IP/OP drug rehab program after finished IV antibiotics ) Prashanth Baltazar DO - 11/05/2015 10:22 AM PDTFormatting of this note might be different from the gregory ginal. Progress Notes by Prashnath Butterfield DO at 11/05/15 1022 Author: Prashanth Butterfield DO Service: Hospitalist Author Type: Physician Filed: 11/05/15 1032 Date of Service: 11/05/15 1022 Status: Signed Bisque Brusher: Prashanth Butterfield DO (Physician) PROGRESS NOTE 11/05/2015 for Yang Ridley on the hospitalist service. 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 CVT surgery eval'd and rec med management. Sinus tachycardia Improved on metoprolol, monitor. Hallucinations, IVDA, anxiety, withdrawals Improved on Seroquel, Klonopin. Will need detox/rehab/inpt psych at [place], plan to discuss fur ther with psych when close to [place]. Toxic metabolic encephalopathy, sepsis, acute resp failure with hypoxia, ARF All sequelae of above and all improving at this point. Hoarseness & dysphagia Eval'd by ENT, continue speech therapy. Problem list: Principal Problem: Sepsis (HCC) Active Problems: Hyposmolality and/or hyponatremia MARCEL (acute kidney injury) (HCC) Leucocytosis Thrombocytopenia (HCC) Toxic metabolic encephalopathy Acute respiratory failure with hypoxia (HCC) Heroin abuse Methamphetamine abuse Tobacco abuse Acute septic pulmonary embolism (HCC) Acute infective endocarditis Moderate protein-calorie malnutrition (HCC) Hallucination, visual Severe protein-calorie malnutrition (HCC) Hoarseness Length of stay: 35 days DVT prophylaxis: SCD's Code status: full code Disposition: inpatient SUBJECTIVE Patient seen/examined lying in bed, watching [place] G[place], sitter present, no complaints or concerns at this time. OBJECTIVE Temp: [97.5 F (36.4 C)-97.8 F (36.6 C)] 97.8 F (36.6 C) (11/04 801) BP: (113-129)/(82-88) 120/84 mmHg (11/04 801) Heart Rate: [98-118] 118 (11/04 801) Resp: [16-22] 22 (11/04 801) SpO2: [98 %-99 %] 98 % (11/04 801) Weight: [61.19 kg (134 lb 14.4 oz)] 61.19 kg (134 lb 14.4 oz) (11/05 255) Physical exam: NAD Alert HENT - MMM, conjunctivae normal Heart - RRR no murmur, no JVD, normal radial / DP pulses B/L Lungs - CTAB/L no WRR, good effort Abd - SNTND +BSx4 Ext - no tenderness or edema Skin - normal no lesion CBC: Lab Results Component Value Date WBC 11.76* 11/05/2015 RBC 2.68* 11/05/2015 HGB 7.6* 11/05/2015 HCT 23.6* 11/05/2015 MCV 87.9 11/05/2015 MCH 28.5 11/05/2015 MCHC 32.4 11/05/2015 RDW 51.6 11/05/2015 PLT 521* 11/05/2015 MPV 6.8 11/05/2015 DIFFTYPE MANUAL 11/05/2015 CMP: Lab Results Component Value Date NA 141 11/05/2015 K 4.3 11/05/2015 CL 106 11/05/2015 CO2 29 11/05/2015 ANIONGAP 10 11/05/2015 GLUF 82 11/05/2015 BUN 11 11/05/2015 CREATININE 0.7 11/05/2015 BCR 16 11/05/2015 CA 8.7 11/05/2015 PROT 6.7 10/31/2015 ALB 1.5* 10/31/2015 GLOB 5.2* 10/31/2015 BILITOT 0.9 10/31/2015 ALP 71 10/31/2015 AST 15 10/31/2015 ALT 20 10/31/2015 EGFR >60 11/05/2015 MEDICATIONS clonazePAM 1 mg Oral TID lidocaine Topical Daily Magnesium 500 mg Oral BID metoprolol 150 mg Oral BID nafcillin 2 g Intravenous Q4H oxymetazoline 1 spray Each Nare Daily QUEtiapine 200 mg Oral BID sodium chloride 2 spray Each Nare 4x Daily sodium chloride 10 mL Intravenous 2 times per day PRN: acetaminophen, albuterol, aluminum-magnesium hydroxide-simethicone, benztropine mesylate, d tdqidevuaYCLUG-wvmsmu-ocvwssmgh oral solution, haloperidol lactate, lip moisturizer, LORazep am, morphine, morphine OR morphine OR morphine, ondansetron OR ondansetron, prom ethazine, simethicone, sodium chloride, sodium chloride Signature: Prashanth Butterfield DO 11/05/2015 10:22 AM onversion Transaction , Provider Unknown - 11/05/2015 10:21 AM PDT Case Management by Katharina Sparks RN at 11/05/15 1021 Author: Katharina Sparks RN Service: (none) Author Type: Registered Nurse Filed: 11/05/15 1023 Date of Service: 11/05/15 1021 Status: Signed Bisque Brusher: Katharina Sparks RN (Registered Nurse) CM spoke with pt,CM wanted to speak with pt's sister Mayelin regarding placement. Pt did n ot have her number, and it is not in pt's chart. CM will re-visit once sister arrives today to discuss d/c plan. Pt had mentioned yesterday 11/04/15 that sister said pt could live with there once medically stable for discharge. Katharina Sparks RN Usman Blount MD - 11/05/2015 7:29 AM PDT Progress Notes by Usman Villatoro MD at 11/05/15 1329 Author: Usman Villatoro MD Service: Infectious Disease Author Type: Physician Filed: 11/05/15 1101 Date of Service: 11/05/15 0729 Status: Signed Bisque Brusher: Usman Villatoro MD (Physician) [facility] Service: Infectious Disease Progress Note Hospital Day: LOS: 35 days Post-Op Day: * No surgery found * SUBJECTIVE Patient Summary: CC: Fever, chest pain and altered mental status From [employer]er's admission note on 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 male with significant history of tobacco and drug abuse using daily heroin and methamphetamine, also on Suboxone. He initially presented to [facility] for progressive weakness, lethargy, and ge neralized pain (mostly his chest, neck, back, knees, ankles and toes) for the past 7 days. Imer e noticed that his ankles and right knee were swollen but not warm or erythematous. Accordin g to his girlfriend, he has been feeling sick and febrile for the past week with poor PO int elisha. Yesterday, she noticed that he seemed like he was hallucinating and talking to himself. He was very weak today that she had to assist him to get into the car to go the the ED. Exam at OSH was significant for point tenderness at the area of the cervical spine and posi tive Kernig's sign. LP was performed to rule out meningitis. IV antibiotics started, ceftria xone 2 gm and vancomycin [address] head and C-spine x-ray performed, MRI attempted but patient decompensated and was intubated for respiratory failure and airway protection. Significant labs: Na 114 (1435 hrs), BUN 81, Crea 2.48, WBC 19.9, Hb 11.6, Plt 51, Tbili 3. 6, AST 188, ALT 155, LA 1.7. CSF: clear, colorless, WBC 0, RBC 3. Protein 31. Glucose 50. Culture with no growth to d ate Blood cultures are reported to be growing GPCs at [facility] Transferred to [facility] for further care. MRI of brain and spine carried out with limited findi ngs due to non-contrast study. Evaluated by Nephrology, acute renal failure attributed to hemodynamics. Evaluated by Dr. Bhardwaj from orthopedics: Does not think patient has ankle septic joint and does not recomme nd surgical intervention. Echocardiogram showed moderate size mobile vegetation attached to the septal tricuspid valv e leaflet, moderate tricuspid regurgitation, moderate pulmonary hypertension with mildly enl arged right ventricle. Evaluated by CTS, surgery not recommended On 10/01, extubated On 10/02, he was transferred out of the ICU. On 10/04, patient had worsening mental status and also became tachypneic. He became more hy ponatremic with worsening renal function. Bilateral moderate sized pleural effusions were n oted on chest CT scan. Bedside ultrasound with bilateral pleural effusion, R>L. Left minimal and without echogenic ity suggestive of infectious pleural effusion. Left effusion is moderate with fibrin strands concerning for complicated/infectious pleural effusion. Right pig tail chest tube placed wi th purulent drainage. Head CT scan negative On 10/05, started on hemodialysis On October 08, left chest tube was placed. Reintubated on October 11. On 10/16-, patient was febrile to 101.4F. Blood cultures were sent. On 10/18, echocardiogram showed possible mobile vegetation at the posterior mitral valve leaf let along with known tricuspid valve vegetation. Right IJ hemodialysis catheter was placed. PICC was discontinued. He complained of abdominal pain and tenderness; CT scan was done salomon t showed mid to distal ileum and right colitis. On 10/19, transesophageal echocardiogram reported as showing no mitral vegetation with large, mobile vegetation at the tricuspid valve and severe tricuspid regurgitation. CT surgery ree valuated the patient; proceeding with medical management. Kidney biopsy done. CC: Endocarditis Chart reviewed Events Overnight: Afebrile. No new issues. Scheduled Medications clonazePAM 1 mg Oral TID lidocaine Topical Daily Magnesium 500 mg Oral BID metoprolol 150 mg Oral BID nafcillin 2 g Intravenous Q4H oxymetazoline 1 spray Each Nare Daily QUEtiapine 200 mg Oral BID sodium chloride 2 spray Each Nare 4x Daily sodium chloride 10 mL Intravenous 2 times per day Continuous Infusions PRN Medications acetaminophen, albuterol, aluminum-magnesium hydroxide-simethicone, benztropine mesylate, d gmwhttqtuUNEGZ-ukzepf-qetydyeth oral solution, haloperidol lactate, lip moisturizer, LORazep am, morphine, morphine OR morphine OR morphine, ondansetron OR ondansetron, prom ethazine, simethicone, sodium chloride, sodium chloride OBJECTIVE Vital Signs: BP 120/85 mmHg | Pulse 101 | Temp(Src) 97.8 F (36.6 C) (Axillary) | Resp 18 | Ht 1.702 m (5' 7") | Wt 61.19 kg (134 lb 14.4 oz) | BMI 21.12 kg/m2 | SpO2 99% Temp: [97.5 F (36.4 C)-97.8 F (36.6 C)] 97.8 F (36.6 C) (11/05 255) BP: (113-129)/(82-88) 120/85 mmHg (11/05 255) Heart Rate: [98-117] 101 (11/05 255) Resp: [16-20] 18 (11/05 255) SpO2: [98 %-99 %] 99 % (11/05 255) Weight: [61.19 kg (134 lb 14.4 oz)] 61.19 kg (134 lb 14.4 oz) (11/05 255) Physical Exam Vitals reviewed. General: Cachectic, awake, conversant HEENT: Normocephalic, anicteric sclerae, conjunctival pallor. No oral thrush. Supple nec k. Lungs: No rales, wheezes or rhonchi CV: Normal rate, regular; systolic murmur Abdomen: NO distention, positive bowel sounds, soft, no tenderness or masses Skin: NO new rash; prior extensive rash at upper and lower extremities improved with resid ual crusting PICC site is unremarkable MS: NO inflamed looking joints Neurologic: Oriented x 3; generalized weakness noted DATA CBC: Lab Results Component Value Date WBC 11.76* 11/05/2015 RBC 2.68* 11/05/2015 HGB 7.6* 11/05/2015 HCT 23.6* 11/05/2015 MCV 87.9 11/05/2015 MCH 28.5 11/05/2015 MCHC 32.4 11/05/2015 RDW 51.6 11/05/2015 PLT 521* 11/05/2015 MPV 6.8 11/05/2015 DIFFTYPE PENDING 11/05/2015 WBC: Lab Results Component Value Date WBC 11.76* 11/05/2015 NEUTABSMAN 8.95* 10/29/2015 NEUTROABS 7.39 11/04/2015 NEUTROMAN 82 10/29/2015 LYMPHOABS 0.65* 10/29/2015 LYMPHOMAN 6 10/29/2015 LYMPHSABS 1.29 11/04/2015 LYMPHOPCT 12.03 11/04/2015 MONOABSMAN 0.76 10/29/2015 MONOMAN 7 10/29/2015 MONOPCT 8.87 11/04/2015 EOSINOABS 0.55* 10/29/2015 EOSINOMAN 5 10/29/2015 EOSABS 0.93* 11/04/2015 EOSPCT 8.63 11/04/2015 BASOSABS 0.17* 11/04/2015 BASOPCT 1.57 11/04/2015 PLTEST ADEQUATE 10/18/2015 BANDSPCT 2 10/17/2015 METAABS 0.26* 10/13/2015 METAPCT 1 10/13/2015 MYELOABS 0.17* 10/09/2015 MYELOPCT 1 10/09/2015 COMDIFF SLIDE SCANNED, AGREES WITH AUTOMATED RESULTS. 10/18/2015 CMP: Lab Results Component Value Date NA 141 11/05/2015 K 4.3 11/05/2015 CL 106 11/05/2015 CO2 29 11/05/2015 ANIONGAP 10 11/05/2015 GLUF 82 11/05/2015 BUN 11 11/05/2015 CREATININE 0.7 11/05/2015 BCR 16 11/05/2015 CA 8.7 11/05/2015 PROT 6.7 10/31/2015 ALB 1.5* 10/31/2015 GLOB 5.2* 10/31/2015 BILITOT 0.9 10/31/2015 ALP 71 10/31/2015 AST 15 10/31/2015 ALT 20 10/31/2015 EGFR >60 11/05/2015 Lab Results Component Value Date CRP 7.2* 11/02/2015 Lab Results Component Value Date ESR 38* 11/02/2015 Microbiology data: 10/29 blood cultures with no growth 10/29 catheter tip culture with no growth 10/29 urine culture with less than 10,000 CFU per mL of gram-negative rods Radiology data: Impression Left PICC tip in expected position. Bilateral nodularity consistent with septic emboli and multifocal infection. CHEST 1 VIEW [[id number]] PROBLEM LIST Principal Problem: Sepsis (HCC) Active Problems: Hyposmolality and/or hyponatremia MARCEL (acute kidney injury) (HCC) Leucocytosis Thrombocytopenia (HCC) Toxic metabolic encephalopathy Acute respiratory failure with hypoxia (HCC) Heroin abuse Methamphetamine abuse Tobacco abuse Acute septic pulmonary embolism (HCC) Acute infective endocarditis Moderate protein-calorie malnutrition (HCC) Hallucination, visual Severe protein-calorie malnutrition (HCC) Hoarseness ASSESSMENT & PLAN MSSA sepsis, tricuspid valve endocarditis -Patient has MSSA bacteremia, tricuspid valve endocarditis with septic pulmonary emboli re lated to IV drug use -Neck pain and back pain improved; noncontrast MRI of spine and brain on presentation show s no evidence of infection -No evidence of septic arthritis; evaluated by orthopedics -Blood cultures on admission here have no growth. -CT scan performed on October 08 confirmed continued pleural effusion on the left, chest tube placed and d/c'd. -On 10/17, he was febrile so blood cultures repeated on 10/17 with no growth. TTE showed tr icuspid valve vegetation and a new mitral valve vegetation. Transesophageal echocardiogram s howed no MV vegetation; Dr. Arias, [facility] recommends to continue medical management. Right u pper extremity PICC d/c'd on 10/18, catheter tip culture with no growth. Right IJ hemodialysis catheter removed at this time. New PICC placed on 10/20 -When he became febrile, tachycardic and tachypneic on 10/29, antibiotics had been broadene d to IV vancomycin/Zosyn. No new blood culture growth. CXR shows stable findings. Mental st atus better. No new focus of infection. Transitioned back to IV nafcillin -continue IV nafcillin, day 35 of 42 of overall antibiotic Rx -CBC, CMP, ESR, CRP requested for Monday Acute hypoxemic respiratory failure -improved Hallucinations Not likely to be secondary to nafcillin, despite maximal dosing. Appears to be better tod ay, will monitor. He had been seen by Psych. MARCEL -Better. No adjustment needed for nafcillin. Renal biopsy done on 10/19, results show acute tubular injury. Abnormal LFTs -Resolved. Petechial/purpuric rash -Suspected ecthyma. Better. Skin care. IV drug use -Not a candidate for outpatient IV antibiotics. HIV negative. Will need drug rehab Case discussed with Dr. Scout Way is on ID call on 11/05-; Dr. Swann is interventional radiology technologist on 11/08. Will plan to reevaluate salbador sanchez next week, on Monday or Monday. Please call for questions in the interim Code Status: Full Code USMAN VILLATORO MD 11/05/2015 onversion Moses saction, Provider Unknown - 11/04/2015 5:45 PM PDTFormatting of this note might be differen t from the original. Progress Notes by Fabián Sosa RN at 11/04/15 1745 Author: Fabián Sosa RN Service: (none) Author Type: Registered Nurse Filed: 11/04/15 182 Date of Service: 11/04/151744 Status: Addendum Bisque Brusher: Fabián Sosa RN (Registered Nurse) Related Notes: Original Note by Katie Salvador RN (Registered Nurse) filed at 11/03 1750 No acute change noted in Pt condition since shift assessment. Pt eager to get out of bed an d ambulate. Pt tolerating ambulation well. Pt vital signs remain stable. Pt visualized hourl y. Call light within reach. Will continue to monitor. ZOLTAN Hicks RN onver patti Transaction, Provider Unknown - 11/04/2015 3:06 PM PDT Progress Notes by Victorina Arroyo RD at 11/04/15 1506 Author: Victorina Arroyo RD Service: (none) Author Type: Registered Dietitian Filed: 11/04/15 1506 Date of Service: 11/04/15 1506 Status: Signed Bisque Brusher: Victorina Arroyo RD (Registered Dietitian) 11/04/15 6885 Subjective Timepoint Follow up Pt c/o In to f/u with pt who states appetite doing well. Sitter at bedside. Fluid / Beverage Intake Oral Fluids Amount Ad radha, SOFTWARE CONSULTANT cleared for thin liquids. Liquid Meal Replacement or Supplement Pt receiving Boost TID although states it's more than he can drink, would like only 1/day. Modified supplement order. Also added Boost pudding T ID with meals. Food Intake Amount of Food Breakfast: B90%, L 70% Type of Food / Meals General diet Meal / Snack Pattern Pt reports to be eating 3 meals daily. Per flowsheets pt eating 2-3 me als, on avg eating 75% of meals. Micronutrient Intake Mineral / Element Intake Sodium;Chloride Anthropometrics Weight change Wt is down 10.3 kg since admit (14.9%) and considered significant. Assume wade e wt loss r/t fluids as pt was previously edematous. Continue to monitor wt trend and avoid further wt loss. Biochemical data, medical tests, and procedures reviewed Biochemical data, medical tests, and procedures reviewed Labs reviewed Recommendations Recommended energy needs Continue general diet as ordered. Sending 1 Boost Plus daily and B oost pudding TID with meals. Encourage po intake of 3 meals daily. Monitor wt and avoid furt her weight loss. Will continue to follow. Nutritional Risk Nutritional risk Moderate Follow up date 11/09/[address] Prashanth Baltazar DO - 11/04/2015 10:50 AM PDTFormatting of this note might be different from the [facility] ginal. Progress Notes by Prashanth Butterfield DO at 11/04/15 1050 Author: Prashanth Butterfield DO Service: Hospitalist Author Type: Physician Filed: 11/04/15 1053 Date of Service: 11/04/15 1050 Status: Signed Bisque Brusher: Prashanth Butterfield DO (Physician) PROGRESS NOTE 11/04/2015 for Yang Ridley on the hospitalist service. 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 CVT surgery eval'd and rec med management. Sinus tachycardia Improved on metoprolol, monitor. Hallucinations, IVDA, anxiety, withdrawals Improved on Seroquel, Klonopin. Will need detox/rehab/inpt psych at [place], plan to discuss fur ther with psych when close to [place]. Toxic metabolic encephalopathy, sepsis, acute resp failure with hypoxia, ARF All sequelae of above and all improving at this point. Hoarseness & dysphagia Eval'd by ENT, continue speech therapy. Problem list: Principal Problem: Sepsis (HCC) Active Problems: Hyposmolality and/or hyponatremia MARCEL (acute kidney injury) (HCC) Leucocytosis Thrombocytopenia (HCC) Toxic metabolic encephalopathy Acute respiratory failure with hypoxia (HCC) Heroin abuse Methamphetamine abuse Tobacco abuse Acute septic pulmonary embolism (HCC) Acute infective endocarditis Moderate protein-calorie malnutrition (HCC) Hallucination, visual Severe protein-calorie malnutrition (HCC) Hoarseness Length of stay: 34 days DVT prophylaxis: SCD's Code status: full code Disposition: inpatient SUBJECTIVE Patient seen/examined sitting up in bed, denies any problems or questions at this time, sta ezio he's trying to ambulate more, denies cp/dysp, f/c, n/v/c/d. OBJECTIVE Temp: [97.4 F (36.3 C)-97.8 F (36.6 C)] 97.7 F (36.5 C) (11/03 726) BP: (112-125)/(73-86) 125/85 mmHg (11/03 726) Heart Rate: [93-117] 98 (11/03 726) Resp: [16-24] 20 (11/03 726) SpO2: [97 %-100 %] 97 % (11/03 726) Weight: [58.8 kg (129 lb 10.1 oz)] 58.8 kg (129 lb 10.1 oz) (11/03 434) Physical exam: NAD Alert HENT - MMM, conjunctivae normal Heart - RRR no murmur, no JVD, normal radial / DP pulses B/L Lungs - CTAB/L no WRR, good effort Abd - SNTND +BSx4 Ext - no tenderness or edema Skin - normal no lesion CBC: Lab Results Component Value Date WBC 10.73 11/04/2015 RBC 2.74* 11/04/2015 HGB 8.0* 11/04/2015 HCT 24.0* 11/04/2015 MCV 87.9 11/04/2015 MCH 29.4 11/04/2015 MCHC 33.4 11/04/2015 RDW 52.1 11/04/2015 PLT 532* 11/04/2015 MPV 6.8 11/04/2015 DIFFTYPE AUTOMATED 11/04/2015 CMP: Lab Results Component Value Date NA 142 11/04/2015 K 4.0 11/04/2015 CL 105 11/04/2015 CO2 30 11/04/2015 ANIONGAP 11 11/04/2015 GLUF 83 11/04/2015 BUN 13 11/04/2015 CREATININE 0.9 11/04/2015 BCR 14 11/04/2015 CA 8.1* 11/04/2015 PROT 6.7 10/31/2015 ALB 1.5* 10/31/2015 GLOB 5.2* 10/31/2015 BILITOT 0.9 10/31/2015 ALP 71 10/31/2015 AST 15 10/31/2015 ALT 20 10/31/2015 EGFR >60 11/04/2015 MEDICATIONS clonazePAM 1 mg Oral TID lidocaine Topical Daily Magnesium 500 mg Oral BID metoprolol 150 mg Oral BID nafcillin 2 g Intravenous Q4H oxymetazoline 1 spray Each Nare Daily QUEtiapine 200 mg Oral BID sodium chloride 2 spray Each Nare 4x Daily sodium chloride 10 mL Intravenous 2 times per day PRN: acetaminophen, albuterol, aluminum-magnesium hydroxide-simethicone, benztropine mesylate, d oqbnyhdzxOCQBU-ftvlin-dvodpfrzv oral solution, haloperidol lactate, lip moisturizer, LORazep am, morphine, morphine OR morphine OR morphine, ondansetron OR ondansetron, prom ethazine, simethicone, sodium chloride, sodium chloride Signature: Prashanth Butterfield DO 11/04/2015 10:50 AM onversion Transaction , Provider Unknown - 11/04/2015 10:20 AM PDT Case Management by Katharina Sparks RN at 11/04/15 1020 Author: Katharina Sparks RN Service: (none) Author Type: Registered Nurse Filed: 11/04/15 1203 Date of Service: 11/04/15 1020 Status: Addendum Bisque Brusher: Katharina Sparks RN (Registered Nurse) Related Notes: Original Note by Katharina Sparks RN (Registered Nurse) filed at 1021 CM attempted to meet with pt to discuss rehab, ST evaluating. CM will return. 11/04/15 1200 CM met with pt to discuss [facility]. CM provided pt with web sites information and explained process as told to CM by [facility] addictions rep. Pt would be able to walk in and have evaluation done by counselor, who would determine if pt meets either inpatient or outpatient tx criteria. Pt motivated to attend rehab, and tyson alcantara,"this is my only option." Pt advised CM that sister Mayelin would allow him to stay w ith her once pt medically stable. CM advised pt will need to speak to sister, as well as MD/ PT/crisis on pt's recovery and their recommendations. Katharina Sparks RN Emeli Gar CCC-SOFTWARE CONSULTANT - 11/04/2015 10:15 AM PDTFormatting of this note might be different fr om the original. Therapy Progress Note by ZEINAB FarahSOFTWARE CONSULTANT at 11/04/15 1015 Author: HENRIETTA Farah Service: (none) Author Type: Speech and Language Patho logist Filed: 11/04/15 1033 Date of Service: 11/04/15 1015 Status: Signed Bisque Brusher: ZEINAB FarahSOFTWARE CONSULTANT (Speech and Language Pathologist) 11/04/15 1015 SOFTWARE CONSULTANT Last Visit SOFTWARE CONSULTANT Received On 11/04/15 Requires SOFTWARE CONSULTANT Follow Up Yes Swallowing Assessment Eval Swallowing Treatment Yes Initial Swallow Assessment Temperature Spikes Noted No Respiratory Status Room air Behavior/Cognition Alert;Cooperative Dentition Adequate Vision Functional for self-feeding Patient Positioning Upright in bed Baseline Vocal Quality Weak;Breathy Volitional Cough Weak Volitional Swallow WFL Thin Presentation Cup;Self Fed;Straw Oral Phase Thin WFL Pharyngeal Phase Delayed swallow initiated;Decreased laryngeal elevation upon palpation;No overt signs or symptoms of aspiration;Cough - delayed;Other (Comment) (on 03/29 trials. ) Regular Presentation Self Fed Oral Phase WFL Pharyngeal Phase No overt signs or symptoms of aspiration Recommendations Liquids Consistency Recommendations Thin Diet Consistency Recommendation Regular Recommendations Dysphagia treatment;Feeding assist;Set up with meals;Check on patients freq uently throught out meals Risk for Aspiration Mild Compensatory Swallowing Strategies Upright as possible for all oral intake;Remain upright f or 30 minutes after meals;Slow rate presentation;Small bites/sips;Eat/feed slowly;Alternate solids and liquids Recommended Form of Meds Meds with recommended liquid Summary Pt initial refused ST until RN talked to pt. Pt trialed thin liquids with 1/10 coug hs after trial. Pt reported it was the carbonation that made him cough. Pt trialed water and boost with no overt s/s aspiration. Pt trialed soda with small sips with no overt s/s aspir ation. Pt educated on taking his time and taking small sips while drinking soda. Pt verbaliz ed understanding. St to follow up x 1 to ensure diet tolerance. Staff Notified RN Plan of Care Treatment Plan ST to follow;Dysphagia treatment Treatment Frequency Followup x 1 Follow up treatments Swallow strategies;Diet tolerance monitoring;Patient/Family education AVS Documentation Yes Diet Regular: no restrictions Liquids Thin liquids: regular consistency SOFTWARE CONSULTANT Ready for Discharge Yes Dysphagia Goals Cotton Weigher Goals Safe/efficient oral intake Pt will have safe/efficient oral intake Thin liquids;Regular diet;With min cues;Goal progr essing Pt will advanced diet in Goal met Short Term Goals Tolerate diet upgrade trials Pt will tolerate diet upgrade trials With 1:1 supervision;Goal progressing Peter Courtney CCC-SLP - 11/04/2015 10:14 AM PDT Therapy Progress Note by HENRIETTA Farah at 11/04/15 1014 Author: HENRIETTA Farah Service: (none) Author Type: Speech and Language Patho logist Filed: 11/04/15 1016 Date of Service: 11/04/15 1014 Status: Signed Bisque Brusher: ZEINAB FarahSOFTWARE CONSULTANT (Speech and Language Pathologist) 11/04/15 1011 SOFTWARE CONSULTANT Last Visit SOFTWARE CONSULTANT Received On 11/04/15 Requires SOFTWARE CONSULTANT Follow Up Refused ST attempted to complete swallow tx, pt refusing trials. Census permitting, ST to follow-up when pt agreeable to trials. onversion T avinash, Provider Unknown - 11/04/2015 9:03 AM PDTFormatting of this note might be diffe rent from the original. Therapy Progress Note by Jadyn Ivan PT at 11/04/15 0903 Author: Jadyn Ivan PT Service: (none) Author Type: Physical Therapist Filed: 11/04/15 1031 Date of Service: 11/04/15 09 Status: Signed Bisque Brusher: Jadyn Ivan PT (Physical Therapist) 11/04/15 09 PT Last Visit PT Received On 11/04/15 Reason for Treatment Deconditioning Requires PT Follow Up Yes Follow up PT Only? No Assistance Required 1 person Skip Operator Needed No Precautions Other Precautions fall risk Other Comments Comments Upon PT arrival pt. seated on toilet w/water all of the floor. Sitter verb that p t. just finished shower. Pt. trying to get his pants on while on the toilet, though was str uggling 2ndary to fatigue and feet getting stuck in pant leg. Pt. required assist w/bilater al pant legs and to pull up to knees. Pt. able to pull up in standing w/o assist. PT moppe d up water. Time required to obtain new gown and socks. Pt. amb to bed w/Anuj 20ft w/o SPC unsteady. Pt. demonstrating fatigue at EOB as he occasionally starts leaning/tipping over to the left. Pt. verb that he is too tired to amb. Pt.agreeable to [facility] mob w/Anuj using BL E's. Pt. supine in bed w/call light within reach to verb needs. (PT to try to f/u in PM for amb/nustep ) Cognition Overall Cognitive Status WFL Orientation Level Oriented Bed Mobility Supine to Sit Supervision Sit to Supine Supervision Transfers Sit to/from Stand Minimal assist (steadying/contact guard);Standby assist (unsteady 2ndary to fatigue from just showering upon PT arriv) Mobility Weight Bearing Status WBAT RLE;WBAT LLE Ambulation Assistance Minimal assist Maximal Ambulation Distance (feet) 20ft (amb from toilet to bed after shower ) Total Ambulation Distance (feet) 20ft Distance limited by? Patient's ability Pattern Alternating;Decreased jaylin (unsteady as he did not use his SPC ) Assistive Device None Wheelchair Minimal assist Maximal Wheelchair Distance (feet) 380ft Total Wheelchair Distance (feet) 380ft Distance limited by? Patient's ability Wheelchair Propulsion BLE Wheelchair Type Lightweight Wheelchair Surface Carpet Wheelchair Cushion Type (waffle ) Activity Tolerance Activity Tolerance Patient limited by fatigue Safety Devices Safety Devices in Place Yes Type of Devices 1:1 sitter maintained Restraints Initially in Place No Plan Treatment/Interventions Continue per Primary PT POC Progress Progressing toward goals Recommendation Recommendations Other (comment) (IP/OP drug rehab program after finished IV antibiotics ) onver patti Transaction, Provider Unknown - 11/04/2015 4:12 AM PDT Nurse Progress Note by Natalie Garcia RN at 11/04/15411 Author: Natalie Garcia RN Service: (none) Author Type: Registered Nurse Filed: 11/04/15416 Date of Service: 11/04/15411 Status: Signed Bisque Brusher: Natalie Garcia RN (Registered Nurse) Patient calm and cooperative, but with a flat affect and minimal interaction. Fatigued and resting comfortably throughout majority of shift. Awoke nauseous at one point, however, th is improved following a dose of Zofran. Initially elevated HR (since normalized) and one in stance of pain (medicated with PO morphine x1), VS o/w stable. No further concerns identifi ed. Will continue to monitor. Natalie Garcia RN onver patti Transaction, Provider Unknown - 11/03/2015 4:35 PM PDT Progress Notes by Fabián Sosa RN at 11/03/15 7631 Author: Fabián Sosa RN Service: (none) Author Type: Registered Nurse Filed: 11/04/15 0635 Date of Service: 11/03/15 6066 Status: Addendum Bisque Brusher: Fabián Sosa RN (Registered Nurse) Related Notes: Original Note by Katie Salvador RN (Registered Nurse) filed at 11/02 5822 No significant change noted in Pt condition since initial assessment. Pt ambulated with PT during shift. Pt has verbalized desire to ambulate more frequently. Pt has remained emotiona lly stable throughout the duration of the shift, and has not required any PRN anxiety medica tion. Pt remains tachycardic. Other vital signs remain stable. Pt visualized hourly. Call li t within reach. Will continue to monitor. Katie Salvador, RN FABIÁN SOSA RN Cyndi Soto CCC-SOFTWARE CONSULTANT - 11/03/2015 3:09 PM PDTFormatting of this note might be different f rom the original. Therapy Progress Note by Cyndi Dotson CCC-SOFTWARE CONSULTANT at 11/03/15 1509 Author: Cyndi Dotson MS CCC-SOFTWARE CONSULTANT Service: (none) Author Type: Speech and Language Pa thologist Filed: 11/03/15 1510 Date of Service: 11/03/15 1509 Status: Signed Bisque Brusher: Cyndi Dotson CCC-SOFTWARE CONSULTANT (Speech and Language Pathologist) 11/03/15 1509 SOFTWARE CONSULTANT Last Visit SOFTWARE CONSULTANT Received On 11/03/15 Requires SOFTWARE CONSULTANT Follow Up Unavailable (with PT) Josiah cavanaugh Transaction, Provider Unknown - 11/03/2015 2:45 PM PDTFormatting of this note might be di fferent from the original. Therapy Progress Note by Jadyn Ivan PT at 11/03/15 1445 Author: Jadyn Ivan PT Service: (none) Author Type: Physical Therapist Filed: 11/03/15 1611 Date of Service: 11/03/15 1445 Status: Signed Bisque Brusher: Jadyn Ivan PT (Physical Therapist) 11/03/15 1445 PT Last Visit PT Received On 11/03/15 Reason for Treatment Deconditioning Requires PT Follow Up Yes Follow up PT Only? No Focus for Next Treatment Stair Training PT Eval/Reassessment Date 11/03/15 Assistance Required 1 person Skip Operator Needed No Precautions Other Precautions fall risk Other Comments Comments Upon PT arrival pt. supine in bed. Pt. agreeable to PT. Pt. verb. that he only h as 8 more days before he goes to drug rehab. Pt. indicating that he has not received PT in a couple of day. PT verb. that she will try to make pt. a priority for tomorrow. Pt. parti cipated in Tinetti Balance Assessment and scored 23/28 w/SPC, indicating medium fall risk. Pt aware that he cannot amb w/o assist given fall risk. Pt. demonstrates increased path dev iation to the left, rather quickly, when he amb without assistive device. Pt. demonstrates sensory deficits w/eyes closed w/increased postural sway. Pt. demonstrates Lknee propriocep tion deficits during LLE SLS w/o BUE, causing minibuckling and quasi ataxic mvmt. Joy jacobs roved when pt. was able to use BUE support on linen cart. Pt. agreeable to performing rhomb erg stance w/eyes opened/closed and sharpened rhomberg, though could not perform w/eyes clos ed. Pt. amb. [id number] w/SPC w/SBA to/from IPR. Pt on nustep [id number] to promote functiona l strengh/enduranc w/daily mob. PT dispensed supine/seated/standing HEP at end of session. Sister to assist pt w/exercises as pt. aware he cannot perform standing exercises w/o zee blanco. RN Aware pt. back in room and sitter present in room. [employer] notified of pt. performance an d pt/sister wanting to more about drug rehab. Sister frusterated as they wanted to talk to MD and wanted to know more about drug rehab. Cognition Overall Cognitive Status WFL Orientation Level Oriented Bed Mobility Supine to Sit Supervision Transfers Sit to/from Stand Standby assist Mobility Weight Bearing Status WBAT RLE;WBAT LLE Ambulation Assistance Standby assist Maximal Ambulation Distance (feet) [id number] Total Ambulation Distance (feet) 540ft Distance limited by? Patient's ability Pattern Decreased jaylin (path deviation side to side L>R w/faster gait speeds ) Assistive Device Cane single point (pt. verb. occasional Lankle weakness ) Balance Balance ( Tinetti Balance Assessment medium fall risk w/SPC ) Supine Supine-Exercise Type (verbally reviewed supine/seated/standing HEP, TBAND dispensd) Activity Tolerance Activity Tolerance Patient tolerated treatment without report of fatigue Nurse Made Aware RN aware pt. w/PT and in IPR to use nustep for exercise Safety Devices Safety Devices in Place Yes Type of Devices 1:1 sitter maintained Restraints Initially in Place No Plan Treatment/Interventions Continue per Primary PT POC Progress Progressing toward goals PT Frequency 5-7x/wk;Once per day;Twice a day Care Duration (# of days) 7 # of days Recommendation Recommendations (IP/OP drug rehab program after finished IV antibiotics ) onver patti Transaction, Provider Unknown - 11/03/2015 2:34 PM PDT Case Management by Katharina Sparks RN at 11/03/15 143 Author: Katharina Sparks RN Service: (none) Author Type: Registered Nurse Filed: 11/03/158 Date of Service: 11/03/151433 Status: Signed Bisque Brusher: Katharina Sparks RN (Registered Nurse) CM called [facility] ([phone]) and spoke to personnel they adv ised that pt can walk in or schedule an appointment through their facility and they could do an evaluation and determine if pt qualifies for inpatient or outpatient rehab. CM went to meet with pt to advise of this resource and pt was in the shower, CM will return to discuss with pt. onver patti Transaction, Provider Unknown - 11/03/2015 11:07 AM PDT Therapy Progress Note by CYNDI Victor at 11/03/15 1107 Author: CYNDI Victor Service: (none) Author Type: Massage Therapist Filed: 11/03/15 110 Date of Service: 11/03/15 110 Status: Signed Bisque Brusher: CYNDI Victor (Massage Therapist) 11/03/15 1106 Massage Therapy Interventions Locations Back;Neck;Shoulder Massage Therapy Technique Effleurage;Petrissage;Yakut massage Response to treatment Decreased muscle tension Prashanth Baltazar DO - 11/03/2015 9:14 AM PDTFormatting of this note might be different from the gregory ginal. Progress Notes by Prashanth Butterfield DO at 11/03/1514 Author: Prashanth Butterfield DO Service: Hospitalist Author Type: Physician Filed: 11/03/15919 Date of Service: 08/16/16 0914 Status: Signed Bisque Brusher: Prashanth Butterfield DO (Physician) PROGRESS NOTE 11/03/2015 for Yang Ridley on the hospitalist service. 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 CVT surgery eval'd and rec med management. Sinus tachycardia Improved on metoprolol, monitor. Hallucinations, IVDA, anxiety, withdrawals Improved on Seroquel, Klonopin. Will need detox/rehab/inpt psych at [place], plan to discuss fur ther with psych when close to [place]. Toxic metabolic encephalopathy, sepsis, acute resp failure with hypoxia, ARF All sequelae of above and all improving at this point. Hoarseness & dysphagia Eval'd by ENT, continue speech therapy. Problem list: Principal Problem: Sepsis (HCC) Active Problems: Hyposmolality and/or hyponatremia MARCEL (acute kidney injury) (HCC) Leucocytosis Thrombocytopenia (HCC) Toxic metabolic encephalopathy Acute respiratory failure with hypoxia (HCC) Heroin abuse Methamphetamine abuse Tobacco abuse Acute septic pulmonary embolism (HCC) Acute infective endocarditis Moderate protein-calorie malnutrition (HCC) Hallucination, visual Severe protein-calorie malnutrition (HCC) Hoarseness Length of stay: 33 days DVT prophylaxis: SCD's Code status: full code Disposition: inpatient SUBJECTIVE Patient seen/examined sleeping in bed, woke up easily, denied having any problems, pain, is sues, complaints at this time. Just shook head yes/no and didn't actually speak. OBJECTIVE Temp: [97.8 F (36.6 C)-98.9 F (37.2 C)] 97.8 F (36.6 C) (11/02 754) BP: (112-124)/(77-95) 124/95 mmHg (11/02 754) Heart Rate: [107-122] 117 (11/02 754) Resp: [18-24] 18 (11/02 754) SpO2: [97 %-99 %] 99 % (11/02 754) Weight: [57.289 kg (126 lb 4.8 oz)] 57.289 kg (126 lb 4.8 oz) (11/02 424) Physical exam: NAD Alert HENT - MMM, conjunctivae normal Heart - RRR no murmur, no JVD, normal radial / DP pulses B/L Lungs - CTAB/L no WRR, good effort Abd - SNTND +BSx4 Ext - no tenderness or edema Skin - normal no lesion CBC: Lab Results Component Value Date WBC 12.90* 11/02/2015 RBC 2.57* 11/02/2015 HGB 7.2* 11/02/2015 HCT 22.7* 11/02/2015 MCV 88.5 11/02/2015 MCH 28.1 11/02/2015 MCHC 31.7* 11/02/2015 RDW 50.8 11/02/2015 PLT 519* 11/02/2015 MPV 6.6 11/02/2015 DIFFTYPE AUTOMATED 11/02/2015 CMP: Lab Results Component Value Date NA 140 11/02/2015 K 4.0 11/02/2015 CL 105 11/02/2015 CO2 27 11/02/2015 ANIONGAP 12 11/02/2015 GLUF 89 11/02/2015 BUN 10 11/02/2015 CREATININE 1.1 11/02/2015 BCR 9 11/02/2015 CA 8.3* 11/02/2015 PROT 6.7 10/31/2015 ALB 1.5* 10/31/2015 GLOB 5.2* 10/31/2015 BILITOT 0.9 10/31/2015 ALP 71 10/31/2015 AST 15 10/31/2015 ALT 20 10/31/2015 EGFR >60 11/02/2015 MEDICATIONS clonazePAM 1 mg Oral TID fentaNYL 1 patch Transdermal Q72H lidocaine Topical Daily lidocaine 1 mL Intradermal Once lidocaine-EPINEPHrine 1 mL Infiltration Once Magnesium 500 mg Oral BID metoprolol 150 mg Oral BID nafcillin 2 g Intravenous Q4H oxymetazoline 1 spray Each Nare Daily QUEtiapine 200 mg Oral BID sodium chloride 2 spray Each Nare 4x Daily sodium chloride 10 mL Intravenous 2 times per day PRN: acetaminophen, albuterol, aluminum-magnesium hydroxide-simethicone, benztropine mesylate, d ziatqxjruHILLH-spunpn-stphlbepb oral solution, haloperidol lactate, lip moisturizer, LORazep am, morphine, morphine OR morphine OR morphine, ondansetron OR ondansetron, prom ethazine, simethicone, sodium chloride, sodium chloride Signature: Prashanth Butterfield DO 11/03/2015 9:14 AM onversion Transaction , Provider Unknown - 11/03/2015 4:53 AM PDT Nurse Progress Note by Rayne Lee RN at 11/03/15 0453 Author: Rayne Lee RN Service: (none) Author Type: Registered Nurse Filed: 11/03/158 Date of Service: 11/03/15452 Status: Signed Bisque Brusher: Rayne Lee RN (Registered Nurse) Was unable to find pts fentanyl patch, when asked about it pt stated he did not know. Give 1 mg ativan to help with anxiety, pt responded well. Heart rates continue to be over 100. No further assessment changes noted, will continue to monitor hourly. RAYNE LEE RN 11/03/2015 4:57 AM onver patti Transaction, Provider Unknown - 11/02/2015 6:29 PM PDT Nurse Progress Note by Sharad Lara RN at 11/02/151828 Author: Sharad Lara RN Service: (none) Author Type: Registered Nurse Filed: 11/02/15 183 Date of Service: 11/02/151828 Status: Signed Bisque Brusher: Sharad Lara RN (Registered Nurse) Pt A&O, VSS except HR continues tachy 100's-120's. Pt resting in bed the majority of shift. Pt ambulated in the hallway tolerated well. Otherwise no acute changes since previous asses sment. Will continue to monitor. Sharad Lara RN Balta Mark MD - 11/02/2015 2:12 PM PDTFormatting of this note might be different from the origi nal. Progress Notes by Balta Li MD at 11/02/15 1412 Author: Balta Li MD Service: (none) Author Type: Physician Filed: 11/02/15 1417 Date of Service: 11/02/15 1412 Status: Signed Bisque Brusher: Balta Li MD (Physician) [facility] Service: Hospitalist Progress Note Hospital Day: LOS: 32 days Consultants: Treatment Team: Consulting Physician: Chris Swann DO Consulting Physician: Gonzalez Bhardwaj MD Consulting Physician: Femi Vaughan MD Consulting Physician: Rodolfo Salguero MD Consulting Physician: Alanna Nelson MD Admitting Provider: Carly Thomas DO The first problem in assessment is the principal problem. ASSESSMENT/ PLAN 30-year-old male with past medical history of IV drug use including heroin, methamphetamine , who presented with weakness, was found to have infective endocarditis involving the tricus pid valve. Status post intubation. Initially needing pressors also had presentation with sev ere hyponatremia and worsening renal failure. Later on transferred to the medical floor but had more decompensation and had to be transferred back to ICU with need of dialysis and rein tubation. Has had a long complicated hospital course. Please see ICU note from 10/26 for furth er details. He has needed a few units of blood transfusion, Precedex for anxiety and when ne cessary Haldol and on Seroquel for agitation and suicidal ideation. Has been seen by nephrology, ID, psychiatric, CT surgery, ENT and orthopedic surgery. 1. MSSA infective endocarditis and septic pulmonary emboli: Was on vancomycin and Zosyn for last 2 days. Blood culture so far negative. Resume Naficillin, will discuss with ID. day . ID following peripherally 2. Acute kidney injury, status post dialysis. Now resolved. Tunnel catheter has been remove d. Nephrology signed off 3. Tachycardia : Currently on metoprolol. Will increase to 200 BID. Tachycardia has improve d from 140s to 100 continue with same. DC telemetry 4. Agitation, anxiety, withdrawal, currently on Seroquel 200 mg twice a day. also the Klono pin 1 mg 3 times a day. Patient was seen by psychiatric recently. 5. Pain on fentanyl patch 50 mics and morphine oral when necessary 6. Dysphagia: Will f/u speech therapy. Patient seen by ENT, Dr. Nelson and indirect laryngosc opy with no vocal cord paralysis, hoarse voice, probably due to weakness. Continue with spee ch therapy Disposition: inpatient for now. Patient still having his episodes of agitation and anxiety , though much, much improved after increasing Seroquel. Discussed with family at bedside. Hai cameron plan to look for detox and rehabilitation versus inpatient psychiatric artery finish his IV antibiotics. Once patient close to being discharged, will need to be seen by gabriel camarillo again for further plan of care. Was seen by Dr. Salguero recently. Also, we need to get in touch with ID as her discharge. If overall stable. Code Status: Full Code Dictation and program proposals coordinator or software, Social Media Simplified, used which may contain error for similar s ounding words even after review. Personal communication requested for any clarification. SUBJECTIVE Events Overnight: *No more evidence of agitation or episodes of anxiety with new complaint tachycardia, slightly improving. Yesterday had indirect laryngoscopy OBJECTIVE General: poorlyrished. Psych: more awake and alert. Calm, cooperative. Cardiovascular: tachycardic Regular rate and rhythm, Systolic murmurs, no thrills. Normal PMI. Respiratory: mild wheezing in bilateral rhonchi, breathing slightly labored. Gastrointestinal: Soft, non-tender, non-distended, positive bowel sounds. No HSM. Musculoskeletal: Mild edema in bilateral lower extremities. No joint swelling. Neck: No JVD, Trachea midline. Neurological: Non focal. Motor grossly intact. PROBLEM LIST Principal Problem: Sepsis (HCC) Active Problems: Hyposmolality and/or hyponatremia MARCEL (acute kidney injury) (HCC) Leucocytosis Thrombocytopenia (HCC) Toxic metabolic encephalopathy Acute respiratory failure with hypoxia (HCC) Heroin abuse Methamphetamine abuse Tobacco abuse Acute septic pulmonary embolism (HCC) Acute infective endocarditis Moderate protein-calorie malnutrition (HCC) Hallucination, visual Severe protein-calorie malnutrition (HCC) Hoarseness PMH Past Medical History Diagnosis Date Illicit drug use, continuous HOME MEDICATIONS Prior to Admission medications Not on File DATA Vital Signs: BP 116/78 mmHg | Pulse 122 | Temp(Src) 97.8 F (36.6 C) (Axillary) | Resp 20 | Ht 1.702 m (5' 7") | Wt 59.557 kg (131 lb 4.8 oz) | BMI 20.56 kg/m2 | SpO2 97% Filed Vitals: 11/01/15 2330 11/02/15 0359 11/02/15 0709 11/02/15 1114 BP: 109/68 111/78 118/83 116/78 Pulse: 109 112 113 122 Temp: 98.9 F (37.2 C) 97.8 F (36.6 C) 97.6 F (36.4 C) 97.8 F (36.6 C) TempSrc: Axillary Axillary Axillary Axillary Resp: Height: Weight: 59.557 kg (131 lb 4.8 oz) SpO2: 95% 96% 96% 97% Intake/Output Summary (Last 24 hours) at 11/02/15 1412 Last data filed at 11/02/15 1254 Gross per 24 hour Intake 2586.26 ml Output 1675 ml Net 911.26 ml CBC: Lab Results Component Value Date WBC 12.90* 11/02/2015 RBC 2.57* 11/02/2015 HGB 7.2* 11/02/2015 HCT 22.7* 11/02/2015 MCV 88.5 11/02/2015 MCH 28.1 11/02/2015 MCHC 31.7* 11/02/2015 RDW 50.8 11/02/2015 PLT 519* 11/02/2015 MPV 6.6 11/02/2015 DIFFTYPE AUTOMATED 11/02/2015 CMP: Lab Results Component Value Date NA 140 11/02/2015 K 4.0 11/02/2015 CL 105 11/02/2015 CO2 27 11/02/2015 ANIONGAP 12 11/02/2015 GLUF 89 11/02/2015 BUN 10 11/02/2015 CREATININE 1.1 11/02/2015 BCR 9 11/02/2015 CA 8.3* 11/02/2015 PROT 6.7 10/31/2015 ALB 1.5* 10/31/2015 GLOB 5.2* 10/31/2015 BILITOT 0.9 10/31/2015 ALP 71 10/31/2015 AST 15 10/31/2015 ALT 20 10/31/2015 EGFR >60 11/02/2015 Magnesium: Lab Results Component Value Date MG 1.8 11/02/2015 Phosphorus: Lab Results Component Value Date PHOS 4.7 11/02/2015 PT/INR: Lab Results Component Value Date PROTIME DUPLICATE ORDER 10/19/2015 INR 1.1 10/19/2015 PTT: Lab Results Component Value Date APTT 27 10/19/2015 [APTT Imaging @IMAGES@ Scheduled Medications clonazePAM 1 mg Oral TID fentaNYL 1 patch Transdermal Q72H lidocaine Topical Daily lidocaine 1 mL Intradermal Once lidocaine-EPINEPHrine 1 mL Infiltration Once Magnesium 500 mg Oral BID metoprolol 150 mg Oral BID nafcillin 2 g Intravenous Q4H oxymetazoline 1 spray Each Nare Daily QUEtiapine 200 mg Oral BID sodium chloride 2 spray Each Nare 4x Daily sodium chloride 10 mL Intravenous 2 times per day Continuous Infusions PRN Medications acetaminophen, albuterol, aluminum-magnesium hydroxide-simethicone, benztropine mesylate, d oluhuyzrgGZNGM-qyynri-hufhvljco oral solution, haloperidol lactate, lip moisturizer, LORazep am, morphine, morphine OR morphine OR morphine, ondansetron OR ondansetron, prom ethazine, simethicone, sodium chloride, sodium chloride Balta Li MD 11/02/20152:12 PM onversion Transaction, Provider Unknown - 11/02/2015 1:28 PM PDTFormatting of this note might be different from e original. Case Management by SAMEERA Foster at 11/02/158 Author: SAMEERA Foster Service: (none) Author Type: Fuse Assembler Filed: 11/02/15 1329 Date of Service: 11/02/151327 Status: Signed Bisque Brusher: SAMEERA Foster (Fuse Assembler) Cm spoke with Yolanda at [facility] re referral. Yolanda stated they could not accept Pt due to his drug use history. CM will cont to look for placement. Usman Blount MD - 11/02/2015 12:54 PM PDT Progress Notes by Usman Villatoro MD at 11/02/15 9560 Author: Usman Villatoro MD Service: Infectious Disease Author Type: Physician Filed: 11/05/15 0728 Date of Service: 11/02/15 7260 Status: Signed Bisque Brusher: Usman Villatoro MD (Physician) [facility] Service: Infectious Disease Progress Note Hospital Day: LOS: 32 days Post-Op Day: * No surgery found * SUBJECTIVE Patient Summary: CC: Fever, chest pain and altered mental status From Auto Dealer's admission note on 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 male with significant history of tobacco and drug abuse using daily heroin and methamphetamine, also on Suboxone. He initially presented to [facility] for progressive weakness, lethargy, and ge neralized pain (mostly his chest, neck, back, knees, ankles and toes) for the past 7 days. H e noticed that his ankles and right knee were swollen but not warm or erythematous. Accordbetzy g to his girlfriend, he has been feeling sick and febrile for the past week with poor PO int elisha. Yesterday, she noticed that he seemed like he was hallucinating and talking to himself. He was very weak today that she had to assist him to get into the car to go the the ED. Exam at OSH was significant for point tenderness at the area of the cervical spine and posi tive Kernig's sign. LP was performed to rule out meningitis. IV antibiotics started, ceftria xone 2 gm and vancomycin [address] head and C-spine x-ray performed, MRI attempted but patient decompensated and was intubated for respiratory failure and airway protection. Significant labs: Na 114 (1435 hrs), BUN 81, Crea 2.48, WBC 19.9, Hb 11.6, Plt 51, Tbili 3. 6, AST 188, ALT 155, LA 1.7. CSF: clear, colorless, WBC 0, RBC 3. Protein 31. Glucose 50. Culture with no growth to d ate Blood cultures are reported to be growing GPCs at [facility] Transferred to [facility] for further care. MRI of brain and spine carried out with limited findi ngs due to non-contrast study. Evaluated by Nephrology, acute renal failure attributed to hemodynamics. Evaluated by Dr. Bhardwaj from orthopedics: Does not think patient has ankle septic joint and does not recomme nd surgical intervention. Echocardiogram showed moderate size mobile vegetation attached to the septal tricuspid valv e leaflet, moderate tricuspid regurgitation, moderate pulmonary hypertension with mildly enl arged right ventricle. Evaluated by CTS, surgery not recommended On 10/01, extubated On 10/02, he was transferred out of the ICU. On 10/04, patient had worsening mental status and also became tachypneic. He became more hy ponatremic with worsening renal function. Bilateral moderate sized pleural effusions were n oted on chest CT scan. Bedside ultrasound with bilateral pleural effusion, R>L. Left minimal and without echogenic ity suggestive of infectious pleural effusion. Left effusion is moderate with fibrin strands concerning for complicated/infectious pleural effusion. Right pig tail chest tube placed wi th purulent drainage. Head CT scan negative On 10/05, started on hemodialysis On October 08, left chest tube was placed. Reintubated on October 11. On 10/16-, patient was febrile to 101.4F. Blood cultures were sent. On 10/18, echocardiogram showed possible mobile vegetation at the posterior mitral valve leaf let along with known tricuspid valve vegetation. Right IJ hemodialysis catheter was placed. PICC was discontinued. He complained of abdominal pain and tenderness; CT scan was done salomon t showed mid to distal ileum and right colitis. On 10/19, transesophageal echocardiogram reported as showing no mitral vegetation with large, mobile vegetation at the tricuspid valve and severe tricuspid regurgitation. CT surgery ree valuated the patient; proceeding with medical management. Kidney biopsy done. CC: Endocarditis Chart reviewed Events Overnight: Patient had been agitated but per nursing staff doing better today. Indirect laryngoscopy was done by Dr. Nelson, ENT with no evidence of vocal cord paralysis; voice hoarseness had been attributed to patient's weakness. No further fever; nafcillin resumed yesterday. Feels tired. Denies chest pain, abdominal pain, headache. Scheduled Medications clonazePAM 1 mg Oral TID fentaNYL 1 patch Transdermal Q72H lidocaine Topical Daily lidocaine 1 mL Intradermal Once lidocaine-EPINEPHrine 1 mL Infiltration Once Magnesium 500 mg Oral BID metoprolol 150 mg Oral BID nafcillin 2 g Intravenous Q4H oxymetazoline 1 spray Each Nare Daily QUEtiapine 200 mg Oral BID sodium chloride 2 spray Each Nare 4x Daily sodium chloride 10 mL Intravenous 2 times per day Continuous Infusions PRN Medications acetaminophen, albuterol, aluminum-magnesium hydroxide-simethicone, benztropine mesylate, d naljdgafmTQTBE-qixthe-jlrvalxch oral solution, haloperidol lactate, lip moisturizer, LORazep am, morphine, morphine OR morphine OR morphine, ondansetron OR ondansetron, prom ethazine, simethicone, sodium chloride, sodium chloride OBJECTIVE Vital Signs: BP 116/78 mmHg | Pulse 122 | Temp(Src) 97.8 F (36.6 C) (Axillary) | Resp 20 | Ht 1.702 m (5' 7") | Wt 59.557 kg (131 lb 4.8 oz) | BMI 20.56 kg/m2 | SpO2 97% Temp: [97.5 F (36.4 C)-98.9 F (37.2 C)] 97.8 F (36.6 C) (11/01 1113) BP: (109-137)/(68-98) 116/78 mmHg (11/01 1113) Heart Rate: [109-127] 122 (11/01 1113) Resp: [18-24] 20 (11/01 1113) SpO2: [95 %-99 %] 97 % (11/01 1113) Weight: [59.557 kg (131 lb 4.8 oz)] 59.557 kg (131 lb 4.8 oz) (11/01 035) Physical Exam Vitals reviewed. General: Cachectic, awake, conversant with hoarse voice HEENT: Normocephalic, anicteric sclerae, conjunctival pallor. No oral thrush. Supple nec k. Lungs: No rales, wheezes or rhonchi CV: Tachycardic, regular; systolic murmur Abdomen: NO distention, positive bowel sounds, soft, no tenderness or masses Skin: NO new rash; prior extensive rash at upper and lower extremities improved with resid ual crusting PICC site is unremarkable MS: NO inflamed looking joints Neurologic: Oriented x 3; generalized weakness noted DATA CBC: Lab Results Component Value Date WBC 12.90* 11/02/2015 RBC 2.57* 11/02/2015 HGB 7.2* 11/02/2015 HCT 22.7* 11/02/2015 MCV 88.5 11/02/2015 MCH 28.1 11/02/2015 MCHC 31.7* 11/02/2015 RDW 50.8 11/02/2015 PLT 519* 11/02/2015 MPV 6.6 11/02/2015 DIFFTYPE AUTOMATED 11/02/2015 WBC: Lab Results Component Value Date WBC 12.90* 11/02/2015 NEUTABSMAN 8.95* 10/29/2015 NEUTROABS 9.28* 11/02/2015 NEUTROMAN 82 10/29/2015 LYMPHOABS 0.65* 10/29/2015 LYMPHOMAN 6 10/29/2015 LYMPHSABS 1.56 11/02/2015 LYMPHOPCT 12.10 11/02/2015 MONOABSMAN 0.76 10/29/2015 MONOMAN 7 10/29/2015 MONOPCT 8.20 11/02/2015 EOSINOABS 0.55* 10/29/2015 EOSINOMAN 5 10/29/2015 EOSABS 0.84* 11/02/2015 EOSPCT 6.51 11/02/2015 BASOSABS 0.17* 11/02/2015 BASOPCT 1.28 11/02/2015 PLTEST ADEQUATE 10/18/2015 BANDSPCT 2 10/17/2015 METAABS 0.26* 10/13/2015 METAPCT 1 10/13/2015 MYELOABS 0.17* 10/09/2015 MYELOPCT 1 10/09/2015 COMDIFF SLIDE SCANNED, AGREES WITH AUTOMATED RESULTS. 10/18/2015 CMP: Lab Results Component Value Date NA 140 11/02/2015 K 4.0 11/02/2015 CL 105 11/02/2015 CO2 27 11/02/2015 ANIONGAP 12 11/02/2015 GLUF 89 11/02/2015 BUN 10 11/02/2015 CREATININE 1.1 11/02/2015 BCR 9 11/02/2015 CA 8.3* 11/02/2015 PROT 6.7 10/31/2015 ALB 1.5* 10/31/2015 GLOB 5.2* 10/31/2015 BILITOT 0.9 10/31/2015 ALP 71 10/31/2015 AST 15 10/31/2015 ALT 20 10/31/2015 EGFR >60 11/02/201510/29 blood cultures were no growth to date 10/29 urine culture grew less than 10,000 CFU per mL of gram-negative rods only Radiology data: Impression Left PICC tip in expected position. Bilateral nodularity consistent with septic emboli and multifocal infection. CHEST 1 VIEW [[id number]] PROBLEM LIST Principal Problem: Sepsis (HCC) Active Problems: Hyposmolality and/or hyponatremia MARCEL (acute kidney injury) (HCC) Leucocytosis Thrombocytopenia (HCC) Toxic metabolic encephalopathy Acute respiratory failure with hypoxia (HCC) Heroin abuse Methamphetamine abuse Tobacco abuse Acute septic pulmonary embolism (HCC) Acute infective endocarditis Moderate protein-calorie malnutrition (HCC) Hallucination, visual Severe protein-calorie malnutrition (HCC) Hoarseness ASSESSMENT & PLAN MSSA sepsis, tricuspid valve endocarditis -Patient has MSSA bacteremia, tricuspid valve endocarditis with septic pulmonary emboli re lated to IV drug use -Neck pain and back pain improved; noncontrast MRI of spine and brain on presentation show s no evidence of infection -No evidence of septic arthritis; evaluated by orthopedics -Blood cultures on admission here have no growth. -CT scan performed on October 08 confirmed continued pleural effusion on the left, chest tube placed and d/c'd. -On 10/17, he was febrile so blood cultures repeated on 10/17 with no growth. TTE showed tr icuspid valve vegetation and a new mitral valve vegetation. Transesophageal echocardiogram s howed no MV vegetation; Dr. Arias, [facility] recommends to continue medical management. Right u pper extremity PICC d/c'd on 10/18, catheter tip culture with no growth. Right IJ hemodialysis catheter removed at this time. New PICC placed on 10/20 -When he became febrile, tachycardic and tachypneic on 10/29, antibiotics had been broadene d to IV vancomycin/Zosyn. No new blood culture growth. CXR shows stable findings. Mental st atus better today although he had been anxious (anxiety better today). No new focus of infe ction. -Transitioned to IV nafcillin, day 32 of 42 of overall antibiotic Rx Acute hypoxemic respiratory failure -improved Hallucinations Not likely to be secondary to nafcillin, despite maximal dosing. Appears to be better tod ay, will monitor. MARCEL -Better. No adjustment needed for nafcillin. Renal biopsy done on 10/19, results show acute tubular injury. Abnormal LFTs -Resolved. Petechial/purpuric rash -Suspected ecthyma. Better. Skin care. IV drug use -Not a candidate for outpatient IV antibiotics. HIV negative. Case discussed with Dr. Li Code Status: Full Code USMAN VILLATORO MD 11/02/2015 Johnnie Courtney, [facility]-SOFTWARE CONSULTANT - 11/02/2015 10:17 AM PDTFormatting of this note might be different from the or iginal. Therapy Progress Note by ZEINAB FarahSOFTWARE CONSULTANT at 11/02/15 1017 Author: ZEINAB FarahSOFTWARE CONSULTANT Service: (none) Author Type: Speech and Language Patho logist Filed: 11/02/15 1036 Date of Service: 11/02/15 1017 Status: Signed Bisque Brusher: ZEINAB FarahSOFTWARE CONSULTANT (Speech and Language Pathologist) 11/02/15 1017 SOFTWARE CONSULTANT Last Visit SOFTWARE CONSULTANT Received On 11/02/15 Requires SOFTWARE CONSULTANT Follow Up Yes Swallowing Assessment Eval Swallowing Treatment Yes Initial Swallow Assessment Temperature Spikes Noted No Respiratory Status Room air Behavior/Cognition Alert;Cooperative Dentition Adequate Vision Functional for self-feeding Patient Positioning Upright in bed Baseline Vocal Quality Weak;Breathy Volitional Cough Weak Volitional Swallow Delayed Thin Presentation Cup;Self Fed;Straw Oral Phase Thin WFL Pharyngeal Phase Decreased laryngeal elevation upon palpation;No overt signs or symptoms of aspiration Regular Presentation Self Fed Oral Phase WFL Pharyngeal Phase Delayed Swallow;Decreased Laryngeal Elevation;No overt signs or symptoms o f aspiration Recommendations Liquids Consistency Recommendations Thin Diet Consistency Recommendation Regular Recommendations Dysphagia treatment;Feeding assist;Set up with meals;Check on patients freq uently throught out meals;Speech/ Language Eval & Treat Risk for Aspiration Mild Compensatory Swallowing Strategies Upright as possible for all oral intake;Remain upright f or 30 minutes after meals;Swallow 2 times per bite/sip;Slow rate presentation;Eat/feed slowl y;Small bites/sips Recommended Form of Meds Meds with recommended liquid Summary Pt seen with care provider present. Care provider reported pt demonstrated difficul ty with nectar thick through straw earlier but otherwise hasn't had difficulty with foods to day. Pt continues to have weak and breathy vocal quality. Pt seen with thin liquids by cup a nd by straw with no overt s/s aspiration such as throat clear, coughing or wet vocal quality . Pt seen with regular textures with no overt s/s aspiration. ST recommends thin liquids wit h regular textures. ST to follow to ensure diet tolerance. Plan of Care Treatment Plan Continue with current plan Treatment Frequency 4-6 x/week Follow up treatments Swallow strategies AVS Documentation Yes Diet Regular: no restrictions Liquids Thin liquids: regular consistency SOFTWARE CONSULTANT Ready for Discharge Yes Dysphagia Goals Cotton Weigher Goals Advanced diet;Safe/efficient oral intake Pt will have safe/efficient oral intake Thin liquids;Regular diet;With min cues;New/revise d goal Pt will advanced diet in 3 days;Goal met Short Term Goals Tolerate diet upgrade trials Pt will tolerate diet upgrade trials With 1:1 supervision;Goal progressing onversion T avinash, Provider Unknown - 11/02/2015 9:30 AM PDTFormatting of this note might be diffe rent from the original. Therapy Progress Note by Elisa Morel PT at 11/02/15 0930 Author: Elisa Morel PT Service: (none) Author Type: Physical Therapist Filed: 11/02/1532 Date of Service: 11/02/15929 Status: Signed Bisque Brusher: Elisa Morel PT (Physical Therapist) 11/02/15929 PT Last Visit PT Received On 11/02/15 Requires PT Follow Up Unavailable Other Comments Comments RN brenda, f/u later today as census allows for ongoing mobility training. onver patti Transaction, Provider Unknown - 11/02/2015 7:01 AM PDT Progress Notes by Rubina Valle RPH at 11/02/15 07 Author: Rubina Valle RPH Service: (none) Author Type: Pharmacist Filed: 11/02/1502 Date of Service: 11/02/15 07 Status: Signed Bisque Brusher: Rubina Valle RPH (Pharmacist) Day 4 Vanco 1250mg IV q 12h. Todays Scr increased to 1.1 with estim CrCl= 81.3 ml/min. Vanco Tr at 0544 = 26.6 (15-20 mcg/ml) is elevated. Hold this AM Dose & restart Vanco 1250mg (19.5 mg/kg) IV q 24h with next dose At 1400 today. Vanco Random early at 1000 11/03/15 since he may Require daily adjustment of interval. Pharmacist; RUBINA VALLE 11/02/2015 7:01 AM onver patti Transaction, Provider Unknown - 11/02/2015 4:19 AM PDT Nurse Progress Note by Citlaly Adair RN at 11/02/15418 Author: Citlaly Adair RN Service: (none) Author Type: Registered Nurse Filed: 11/02/154 Date of Service: 11/02/15418 Status: Signed Bisque Brusher: Citlaly Adair RN (Registered Nurse) Pt currently asleep in bed. Has not been anxious or reported any pain this shift. Vanco hermilo [facility] drawn and awaiting results before next dose given. Pt to be typed and screened this morn ing. Pt requesting to work with PT and be seen by speech in order to have his diet advanced. Sitter continues to remain at bedside. No acute changes from shift assessment. Will continu e to monitor. Citlaly Adair RN onver patti Transaction, Provider Unknown - 11/01/2015 7:06 PM PDT Nurse Progress Note by Maria Del Carmen Hill RN at 11/01/151905 Author: Maria Del Carmen Hill RN Service: (none) Author Type: Registered Nurse Filed: 11/01/151906 Date of Service: 11/01/151905 Status: Signed Bisque Brusher: Maria Del Carmen Hill RN (Registered Nurse) Pt anxious on and off during this shift. Pt walked halls without any incidents. Pt requesti ng to have speech therapy come work with him so that his diet can be advanced. No other acut e changes from previous assessment. Maria Del Carmen Hill RN Usman Blount MD - 11/01/2015 2:40 PM PDT Progress Notes by Usman Villatoro MD at 11/01/15 9866 Author: Usman Villatoro MD Service: Infectious Disease Author Type: Physician Filed: 11/05/15 0722 Date of Service: 11/01/15 7369 Status: Signed Bisque Brusher: Usman Villatoro MD (Physician) [facility] Service: Infectious Disease Progress Note Hospital Day: LOS: 31 days Post-Op Day: * No surgery found * SUBJECTIVE Patient Summary: CC: Fever, chest pain and altered mental status From Auto Dealer's admission note on 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 male with significant history of tobacco and drug abuse using daily heroin and methamphetamine, also on Suboxone. He initially presented to [facility] for progressive weakness, lethargy, and ge neralized pain (mostly his chest, neck, back, knees, ankles and toes) for the past 7 days. H e noticed that his ankles and right knee were swollen but not warm or erythematous. Accordin g to his girlfriend, he has been feeling sick and febrile for the past week with poor PO int elisha. Yesterday, she noticed that he seemed like he was hallucinating and talking to himself. He was very weak today that she had to assist him to get into the car to go the the ED. Exam at OSH was significant for point tenderness at the area of the cervical spine and posi tive Kernig's sign. LP was performed to rule out meningitis. IV antibiotics started, ceftria xone 2 gm and vancomycin [address] head and C-spine x-ray performed, MRI attempted but patient decompensated and was intubated for respiratory failure and airway protection. Significant labs: Na 114 (1435 hrs), BUN 81, Crea 2.48, WBC 19.9, Hb 11.6, Plt 51, Tbili 3. 6, AST 188, ALT 155, LA 1.7. CSF: clear, colorless, WBC 0, RBC 3. Protein 31. Glucose 50. Culture with no growth to d ate Blood cultures are reported to be growing GPCs at [facility] Transferred to [facility] for further care. MRI of brain and spine carried out with limited findi ngs due to non-contrast study. Evaluated by Nephrology, acute renal failure attributed to hemodynamics. Evaluated by Dr. Bhardwaj from orthopedics: Does not think patient has ankle septic joint and does not recomme nd surgical intervention. Echocardiogram showed moderate size mobile vegetation attached to the septal tricuspid valv e leaflet, moderate tricuspid regurgitation, moderate pulmonary hypertension with mildly enl arged right ventricle. Evaluated by CTS, surgery not recommended On 10/01, extubated On 10/02, he was transferred out of the ICU. On 10/04, patient had worsening mental status and also became tachypneic. He became more hy ponatremic with worsening renal function. Bilateral moderate sized pleural effusions were n oted on chest CT scan. Bedside ultrasound with bilateral pleural effusion, R>L. Left minimal and without echogenic ity suggestive of infectious pleural effusion. Left effusion is moderate with fibrin strands concerning for complicated/infectious pleural effusion. Right pig tail chest tube placed wi th purulent drainage. Head CT scan negative On 10/05, started on hemodialysis On October 08, left chest tube was placed. Reintubated on October 11. On 10/16-, patient was febrile to 101.4F. Blood cultures were sent. On 10/18, echocardiogram showed possible mobile vegetation at the posterior mitral valve leaf let along with known tricuspid valve vegetation. Right IJ hemodialysis catheter was placed. PICC was discontinued. He complained of abdominal pain and tenderness; CT scan was done salomon t showed mid to distal ileum and right colitis. On 10/19, transesophageal echocardiogram reported as showing no mitral vegetation with large, mobile vegetation at the tricuspid valve and severe tricuspid regurgitation. CT surgery ree valuated the patient; proceeding with medical management. Kidney biopsy done. CC: Endocarditis Chart reviewed Events Overnight: Fever curve better today. Denies chills. Still tachycardic but den ies chest pain or palpitations. Reports mild cough but no shortness of breath, phlegm produc tion, hemoptysis, abdominal pain, nausea, vomiting or diarrhea. Scheduled Medications clonazePAM 1 mg Oral TID fentaNYL 1 patch Transdermal Q72H lidocaine Topical Daily lidocaine 1 mL Intradermal Once lidocaine-EPINEPHrine 1 mL Infiltration Once Magnesium 500 mg Oral BID metoprolol 100 mg Oral BID oxymetazoline 1 spray Each Nare Daily piperacillin-tazobactam 3.375 g Intravenous Q8H QUEtiapine 200 mg Oral BID sodium chloride 10 mL Intravenous 2 times per day vancomycin 19 mg/kg Intravenous Q12H Continuous Infusions PRN Medications acetaminophen, albuterol, aluminum-magnesium hydroxide-simethicone, benztropine mesylate, d dmqhcdfbnXCXVV-fwgkjr-fvovysrbo oral solution, haloperidol lactate, lip moisturizer, lip aimee sturizer, LORazepam, morphine, morphine OR morphine OR morphine, ondansetron OR ondansetron, promethazine, simethicone, sodium chloride, sodium chloride OBJECTIVE Vital Signs: BP 129/80 mmHg | Pulse 122 | Temp(Src) 99 F (37.2 C) (Oral) | Resp 20 | Ht 1.702 m (5' 7") | Wt 59.1 kg (130 lb 4.7 oz) | BMI 20.40 kg/m2 | SpO2 98% Temp: [97.4 F (36.3 C)-99 F (37.2 C)] 99 F (37.2 C) (10/31 120) BP: (125-132)/(80-96) 129/80 mmHg (10/31 1208) Heart Rate: [103-135] 122 (10/31 1208) Resp: [20-26] 20 (10/31 120) SpO2: [96 %-99 %] 98 % (10/31 1208) Weight: [59.1 kg (130 lb 4.7 oz)] 59.1 kg (130 lb 4.7 oz) (10/31 09) Physical Exam Vitals reviewed. General: Cachectic, awake, conversant with hoarse voice HEENT: Normocephalic, anicteric sclerae, conjunctival pallor. No oral thrush. Supple nec k. Lungs: No rales, wheezes or rhonchi CV: Tachycardic, regular; systolic murmur Abdomen: NO distention, positive bowel sounds, soft, no tenderness or masses Skin: NO new rash; prior extensive rash at upper and lower extremities improved with resid ual crusting PICC site is unremarkable MS: NO inflamed looking joints Neurologic: Oriented x 3; generalized weakness noted DATA CBC: Lab Results Component Value Date WBC 13.09* 11/01/2015 RBC 2.43* 11/01/2015 HGB 6.9* 11/01/2015 HCT 21.5* 11/01/2015 MCV 88.4 11/01/2015 MCH 28.2 11/01/2015 MCHC 31.9* 11/01/2015 RDW 51.2 11/01/2015 PLT 452* 11/01/2015 MPV 6.7 11/01/2015 DIFFTYPE AUTOMATED 11/01/2015 WBC: Lab Results Component Value Date WBC 13.09* 11/01/2015 NEUTABSMAN 8.95* 10/29/2015 NEUTROABS 9.74* 11/01/2015 NEUTROMAN 82 10/29/2015 LYMPHOABS 0.65* 10/29/2015 LYMPHOMAN 6 10/29/2015 LYMPHSABS 1.30 11/01/2015 LYMPHOPCT 9.93 11/01/2015 MONOABSMAN 0.76 10/29/2015 MONOMAN 7 10/29/2015 MONOPCT 7.87 11/01/2015 EOSINOABS 0.55* 10/29/2015 EOSINOMAN 5 10/29/2015 EOSABS 0.88* 11/01/2015 EOSPCT 6.71 11/01/2015 BASOSABS 0.15* 11/01/2015 BASOPCT 1.13 11/01/2015 PLTEST ADEQUATE 10/18/2015 BANDSPCT 2 10/17/2015 METAABS 0.26* 10/13/2015 METAPCT 1 10/13/2015 MYELOABS 0.17* 10/09/2015 MYELOPCT 1 10/09/2015 COMDIFF SLIDE SCANNED, AGREES WITH AUTOMATED RESULTS. 10/18/2015 CMP: Lab Results Component Value Date NA 141 11/01/2015 K 4.1 11/01/2015 CL 103 11/01/2015 CO2 28 11/01/2015 ANIONGAP 14 11/01/2015 GLUF 111* 11/01/2015 BUN 9 11/01/2015 CREATININE 0.96 11/01/2015 BCR 9 11/01/2015 CA 7.6* 11/01/2015 PROT 6.7 10/31/2015 ALB 1.5* 10/31/2015 GLOB 5.2* 10/31/2015 BILITOT 0.9 10/31/2015 ALP 71 10/31/2015 AST 15 10/31/2015 ALT 20 10/31/2015 EGFR >60 11/01/2015 Lab Results Component Value Date CRP 12.5* 10/22/2015 Lab Results Component Value Date ESR 35* 10/22/201510/29 blood cultures were no growth to date 10/29 urine culture grew less than 10,000 CFU per mL of gram-negative rods only Radiology data: Impression Left PICC tip in expected position. Bilateral nodularity consistent with septic emboli and multifocal infection. CHEST 1 VIEW [[id number]] PROBLEM LIST Principal Problem: Sepsis (HCC) Active Problems: Hyposmolality and/or hyponatremia MARCEL (acute kidney injury) (HCC) Leucocytosis Thrombocytopenia (HCC) Toxic metabolic encephalopathy Acute respiratory failure with hypoxia (HCC) Heroin abuse Methamphetamine abuse Tobacco abuse Acute septic pulmonary embolism (HCC) Acute infective endocarditis Moderate protein-calorie malnutrition (HCC) Hallucination, visual Severe protein-calorie malnutrition (HCC) ASSESSMENT & PLAN MSSA sepsis, tricuspid valve endocarditis -Patient has MSSA bacteremia, tricuspid valve endocarditis with septic pulmonary emboli re lated to IV drug use -Neck pain and back pain improved; noncontrast MRI of spine and brain on presentation show s no evidence of infection -No evidence of septic arthritis; evaluated by orthopedics -Blood cultures on admission here have no growth. -CT scan performed on October 08 confirmed continued pleural effusion on the left, chest tube placed and d/c'd. -On 10/17, he was febrile so blood cultures repeated on 10/17 with no growth. TTE showed tr icuspid valve vegetation and a new mitral valve vegetation. Transesophageal echocardiogram s howed no MV vegetation; Dr. Arias, CTS recommends to continue medical management. Right u pper extremity PICC d/c'd on 10/18, catheter tip culture with no growth. Right IJ hemodialysis catheter removed at this time. New PICC placed on 10/20 -Patient has been on IV anti-biotics, day 31 of 42 overall. When he became febrile, tachy cardic and tachypneic on 10/29, antibiotics had been broadened to IV vancomycin/Zosyn. No ne w blood culture growth. CXR shows stable findings. Mental status better today although he co ntinues to have anxiety. No new focus of infection. If he continues to do well, agree with transition to nafcillin in am Acute hypoxemic respiratory failure -improved Hallucinations Not likely to be secondary to nafcillin, despite maximal dosing. Appears to be better tod ay, will monitor. MARCEL -Better. No adjustment needed for nafcillin. Renal biopsy done on 10/19, results show acute tubular injury. Abnormal LFTs -Resolved. Petechial/purpuric rash -Suspected ecthyma. Better. Skin care. IV drug use -Not a candidate for outpatient IV antibiotics. HIV negative. Case discussed with Dr. Li Code Status: Full Code USMAN VILLATORO MD 11/01/2015 Balta Mark MD - 11/01/2015 12:08 PM PDT Progress Notes by Balta Li MD at 11/01/15 1208 Author: Balta Li MD Service: (none) Author Type: Physician Filed: 11/01/15 121 Date of Service: 11/01/15 1208 Status: Signed Bisque Brusher: Balta Li MD (Physician) [facility] Service: Hospitalist Progress Note Hospital Day: LOS: 31 days Consultants: Treatment Team: Consulting Physician: Chris Swann DO Consulting Physician: Gonzalez Bhardwaj MD Consulting Physician: Femi Vaughan MD Consulting Physician: Rodolfo Salguero MD Admitting Provider: Carly Thomas DO The first problem in assessment is the principal problem. ASSESSMENT/ PLAN 30-year-old male with past medical history of IV drug use including heroin, methamphetamine , who presented with weakness, was found to have infective endocarditis involving the tricus pid valve. Status post intubation. Initially needing pressors also had presentation with sev ere hyponatremia and worsening renal failure. Later on transferred to the medical floor but had more decompensation and had to be transferred back to ICU with need of dialysis and rein tubation. Has had a long complicated hospital course. Please see ICU note from 10/26 for furth er details. He has needed a few units of blood transfusion, Precedex for anxiety and when ne cessary Haldol and on Seroquel for agitation. Has been seen by nephrology, ID, psychiatric, CT surgery and orthopedic surgery. 1. MSSA infective endocarditis and septic pulmonary emboli: Continue with vancomycin and Zo syn for now. Blood culture so far negative. If patient shows improvement by tomorrow. Resume Naficillin, will discuss with ID. 2. Acute kidney injury, status post dialysis. Now resolved. Tunnel catheter has been remove d. 3. Tachycardia : Currently on metoprolol. Will increase to 100 BID. 4. Agitation, anxiety, withdrawal, currently on Seroquel 200 mg twice a day. also the Klono pin 1 mg 3 times a day. 5. Pain on fentanyl patch 50 mics and morphine oral when necessary 6. Dysphagia: Will f/u speech therapy. Consulted ENt for same, Dr. Nelson. Disposition: inpatient for now. Patient still having his episodes of agitation and anxiety . Discussed with family at bedside. Current plan to look for detox and rehabilitation versus inpatient psychiatric. Once patient close to being discharged, will need to be better by ps ychiatry again for further plan of care. Was seen by Dr. Salguero recently. Code Status: Full Code Dictation and program proposals coordinator or software, Social Media Simplified, used which may contain error for similar s ounding words even after review. Personal communication requested for any clarification. SUBJECTIVE Events Overnight: *Denies any new complaints, actually looks more awake hoarse voice, but still stable. No nausea, vomiting. Has some mild cough but no phlegm. Episode of fever, chills yesterday with tachypnea and tach cardia. Now this morning improve d. No nausea, vomiting. Still has hoarse voice OBJECTIVE General: poorlyrished. Psych: more awake and alert. Calm, cooperative. Cardiovascular: tachycardic Regular rate and rhythm, Systolic murmurs, no thrills. Normal PMI. Respiratory: mild wheezing in bilateral rhonchi, breathing slightly labored. Gastrointestinal: Soft, non-tender, non-distended, positive bowel sounds. No HSM. Musculoskeletal: Mild edema in bilateral lower extremities. No joint swelling. Neck: No JVD, Trachea midline. Neurological: Non focal. Motor grossly intact. PROBLEM LIST Principal Problem: Sepsis (HCC) Active Problems: Hyposmolality and/or hyponatremia MARCEL (acute kidney injury) (HCC) Leucocytosis Thrombocytopenia (HCC) Toxic metabolic encephalopathy Acute respiratory failure with hypoxia (HCC) Heroin abuse Methamphetamine abuse Tobacco abuse Acute septic pulmonary embolism (HCC) Acute infective endocarditis Moderate protein-calorie malnutrition (HCC) Hallucination, visual Severe protein-calorie malnutrition (HCC) PMH Past Medical History Diagnosis Date Illicit drug use, continuous HOME MEDICATIONS Prior to Admission medications Not on File DATA Vital Signs: BP 132/96 mmHg | Pulse 129 | Temp(Src) 98.8 F (37.1 C) (Oral) | Resp 22 | Ht 1.702 m (5 ' 7") | Wt 59.1 kg (130 lb 4.7 oz) | BMI 20.40 kg/m2 | SpO2 97% Filed Vitals: 11/01/15 0302 11/01/15 0426 11/01/15 0717 11/01/15 0949 BP: 125/88 132/96 Pulse: 103 128 129 Temp: 98.5 F (36.9 C) 98.8 F (37.1 C) TempSrc: Axillary Oral Resp: 22 Height: Weight: 59.1 kg (130 lb 4.7 oz) SpO2: 98% 97% Intake/Output Summary (Last 24 hours) at 11/01/15 1208 Last data filed at 11/01/15 1119 Gross per 24 hour Intake 1846 ml Output 1900 ml Net -54 ml CBC: Lab Results Component Value Date WBC 13.09* 11/01/2015 RBC 2.43* 11/01/2015 HGB 6.9* 11/01/2015 HCT 21.5* 11/01/2015 MCV 88.4 11/01/2015 MCH 28.2 11/01/2015 MCHC 31.9* 11/01/2015 RDW 51.2 11/01/2015 PLT 452* 11/01/2015 MPV 6.7 11/01/2015 DIFFTYPE AUTOMATED 11/01/2015 CMP: Lab Results Component Value Date NA 141 11/01/2015 K 4.1 11/01/2015 CL 103 11/01/2015 CO2 28 11/01/2015 ANIONGAP 14 11/01/2015 GLUF 111* 11/01/2015 BUN 9 11/01/2015 CREATININE 0.96 11/01/2015 BCR 9 11/01/2015 CA 7.6* 11/01/2015 PROT 6.7 10/31/2015 ALB 1.5* 10/31/2015 GLOB 5.2* 10/31/2015 BILITOT 0.9 10/31/2015 ALP 71 10/31/2015 AST 15 10/31/2015 ALT 20 10/31/2015 EGFR >60 11/01/2015 Magnesium: Lab Results Component Value Date MG 1.5* 11/01/2015 Phosphorus: Lab Results Component Value Date PHOS 3.5 11/01/2015 PT/INR: Lab Results Component Value Date PROTIME DUPLICATE ORDER 10/19/2015 INR 1.1 10/19/2015 PTT: Lab Results Component Value Date APTT 27 10/19/2015 [APTT Imaging @IMAGES@ Scheduled Medications clonazePAM 1 mg Oral TID fentaNYL 1 patch Transdermal Q72H lidocaine 1 mL Intradermal Once lidocaine-EPINEPHrine 1 mL Infiltration Once Magnesium 500 mg Oral BID metoprolol 100 mg Oral BID piperacillin-tazobactam 3.375 g Intravenous Q8H QUEtiapine 200 mg Oral BID sodium chloride 10 mL Intravenous 2 times per day vancomycin 19 mg/kg Intravenous Q12H Continuous Infusions PRN Medications acetaminophen, albuterol, aluminum-magnesium hydroxide-simethicone, benztropine mesylate, d xsekkppnaTVWGY-mvxwdc-lzlgkbhkm oral solution, haloperidol lactate, lip moisturizer, lip aimee sturizer, LORazepam, morphine, morphine OR morphine OR morphine, ondansetron OR ondansetron, promethazine, simethicone, sodium chloride, sodium chloride Balta Li MD 11/01/201512:08 PM onversion Transaction, Provider Unknown - 11/01/2015 6:22 AM PDTFormatting of this note might be different from th e original. Progress Notes by Charles Levi RPH at 11/01/15621 Author: Charles Levi RPH Service: (none) Author Type: Pharmacist Filed: 11/01/15621 Date of Service: 11/01/15621 Status: Signed Bisque Brusher: Charles Levi RPH (Pharmacist) Vanco AM random level is within goal at 17.9. Will continue vanco as 1250mg IV q12h with n ext dose due this AM at 0700. Trough ordered prior to 8/15 AM dose. Scr = 0.96 No new WB C labs. onver patti Transaction, Provider Unknown - 11/01/2015 4:44 AM PDT Nurse Progress Note by Citlaly Adair RN at 11/01/15 0444 Author: Citlaly Adair RN Service: (none) Author Type: Registered Nurse Filed: 11/01/15 0453 Date of Service: 11/01/15443 Status: Signed Bisque Brusher: Citlaly Adair RN (Registered Nurse) Pt VSS, currently asleep in bed. Complaints of pain x2 this shift medicated for pain x2 wit h adequate relief. Seemed to have some anxiety at the start of shift given pain medication a nd patient rested comfortably. Continues to have sitter at beside for suicide precautions. P t remains tachycardic.Vancomycin trough drawn and sent to lab awaiting results. Visualized h ourly. Will continue to monitor. Citlaly Adair RN onver patti Transaction, Provider Unknown - 10/31/2015 5:51 PM PDT Progress Notes by Fabián Sosa RN at 10/31/151750 Author: Fabián Sosa RN Service: (none) Author Type: Registered Nurse Filed: 10/31/151804 Date of Service: 10/31/151750 Status: Addendum Bisque Brusher: Fabián Sosa RN (Registered Nurse) Related Notes: Original Note by Katie Salvador RN (Registered Nurse) filed at 10/30 Pt continues to have periods of severe anxiety and agitation throughout the shift. Pt medic ated with PRN ativan and haldol. Vancomycin trough drawn at 1700, lab results 35.1. Pharmacy notified and next dose held. Random vanco level to be drawn at 0430. Next dose scheduled fo r 1000. Pt had several normal BM today, with one incontinent episode. Pt very unstable on hi s feet. Recommend contact guard assist. Pt has remained tachycardic with elevated RRs. Pt vi sualized hourly. Call light within reach. evening sitter at bedside. Will continue to monitor. ZOLTAN Hicks RN onver patti Transaction, Provider Unknown - 10/31/2015 5:50 PM PDT Progress Notes by Lolly Bajwa RPH at 10/31/151749 Author: Lolly Bajwa RPH Service: (none) Author Type: Pharmacist Filed: 10/31/151750 Date of Service: 10/31/151749 Status: Signed Bisque Brusher: Lolly Bajwa RPH (Pharmacist) Clinical Pharmacy Note: Pharmacy Dosing Vancomycin; Day 2 Yang Ridley 30 y.o. male Ht Readings from Last 1 Encounters: 10/20/15 1.702 m (5' 7") Wt Readings from Last 1 Encounters: 10/31/15 58.6 kg (129 lb 3 oz) CREATININE: 1 (10/31/15 0722) Estimated creatinine clearance - 87.9 mL/min WBC Date Value Ref Range Status 10/31/2015 18.77* 3.80 - 11.00 K/uL Final Comment: Testing performed at [facility], [address] [place] [address] INDICATION: sepsis Recent level drawn 10/30 at 1700: 35.1 mcg/ml; trough goal 15 to 20 mcg/ml. Will decrease to Vancomycin 1250 mg (19.6 mg/kg) IV Q12H with next dose ordered tomorrow @ 1000. Checking random level with AM labs to ensure patient is clearing the drug. Can retime med if level <20mcg/ml. Pharmacy will continue to monitor for changes in renal function and adjust accordingly. Lolly Bajwa RPh 10/31/2015 5:49 PM onver patti Transaction, Provider Unknown - 10/31/2015 1:44 PM PDT Therapy Progress Note by ZEINAB RiversSOFTWARE CONSULTANT at 10/31/15 5277 Author: HENRIETTA Rivers Service: (none) Author Type: Speech and Manager Medical Device ologist Filed: 10/31/15 9696 Date of Service: 10/31/151343 Status: Signed Bisque Brusher: ZEINAB RiversSOFTWARE CONSULTANT (Speech and Language Pathologist) 10/31/15 5057 SOFTWARE CONSULTANT Last Visit SOFTWARE CONSULTANT Received On 10/31/15 Requires SOFTWARE CONSULTANT Follow Up On hold ST attempted x 2, pt was recently given haldol and unable to wake for PO trials. Census per ST eran to follow-up when pt awake/available for trials. Balta Mark MD - 10/31/2015 12:07 PM PDTFormatting of this note might be different from the origi nal. Progress Notes by Balta Li MD at 10/31/15 1201 Author: Balta iL MD Service: (none) Author Type: Physician Filed: 10/31/15 0275 Date of Service: 10/31/151206 Status: Signed Bisque Brusher: Balta Li MD (Physician) [facility] Service: Hospitalist Progress Note Hospital Day: LOS: 30 days Consultants: Treatment Team: Consulting Physician: Chris Swann DO Consulting Physician: Gonzalez Bhardwaj MD Consulting Physician: Femi Vaughan MD Consulting Physician: Rodolfo Salguero MD Admitting Provider: Carly Thomas DO The first problem in assessment is the principal problem. ASSESSMENT/ PLAN 30-year-old male with past medical history of IV drug use including heroin, methamphetamine , who presented with weakness, was found to have infective endocarditis involving the tricus pid valve. Status post intubation. Initially needing pressors also had presentation with sev ere hyponatremia and worsening renal failure. Later on transferred to the medical floor but had more decompensation and had to be transferred back to ICU with need of dialysis and rein tubation. Has had a long complicated hospital course. Please see ICU note from 10/26 for furth er details. He has needed a few units of blood transfusion, Precedex for anxiety and when ne cessary Haldol and on Seroquel for agitation. Currently being followed by ID, nephrology of dialysis. Has been seen by CT surgery and ort hopedi surgery. 1. MSSA infective endocarditis and septic pulmonary emboli: Patient with new fever and leuk ocytosis yesterday. Antibiotics were broadened to vancomycin and Zosyn holding nafcillin. Di scussed with ID, will follow blood cultures, x-ray and UA. Oral negative. Today improved wade ewhat. Continue with IV fluids for today. 2. Acute kidney injury, status post dialysis. Now resolved. Tunnel catheter has been remove d. 3. Tachycardia : Currently on metoprolol. Will increase as tolerated. 4. Agitation, anxiety, withdrawal, currently on Seroquel 150 mg twice a day. also the Klono pin 1 mg 3 times a day. 5. Pain on fentanyl patch 50 mics and morphine IV when necessary continue with same. we'll order for morphine oral when necessary 6. Dysphagia: Will f/u speech therapy. Will f/u his voice and might have to consider ENT. Disposition: inpatient for now. Code Status: Full Code Dictation and program proposals coordinator or software, Social Media Simplified, used which may contain error for similar s ounding words even after review. Personal communication requested for any clarification. SUBJECTIVE Events Overnight: * Episode of fever, chills yesterday with tachypnea and tach cardia. Now this morning improve d. No nausea, vomiting. Still has hoarse voice OBJECTIVE General: poorlyrished. Psych: more awake and alert. Calm, cooperative. Cardiovascular: tachycardic Regular rate and rhythm, Systolic murmurs, no thrills. Normal PMI. Respiratory: mild wheezing in bilateral rhonchi, breathing slightly labored. Gastrointestinal: Soft, non-tender, non-distended, positive bowel sounds. No HSM. Musculoskeletal: Mild edema in bilateral lower extremities. No joint swelling. Neck: No JVD, Trachea midline. Neurological: Non focal. Motor grossly intact. PROBLEM LIST Principal Problem: Sepsis (HCC) Active Problems: Hyposmolality and/or hyponatremia MARCEL (acute kidney injury) (HCC) Leucocytosis Thrombocytopenia (HCC) Toxic metabolic encephalopathy Acute respiratory failure with hypoxia (HCC) Heroin abuse Methamphetamine abuse Tobacco abuse Acute septic pulmonary embolism (HCC) Acute infective endocarditis Moderate protein-calorie malnutrition (HCC) Hallucination, visual Severe protein-calorie malnutrition (HCC) PMH Past Medical History Diagnosis Date Illicit drug use, continuous HOME MEDICATIONS Prior to Admission medications Not on File DATA Vital Signs: BP 126/89 mmHg | Pulse 133 | Temp(Src) 97.9 F (36.6 C) (Oral) | Resp 20 | Ht 1.702 m (5 ' 7") | Wt 58.6 kg (129 lb 3 oz) | BMI 20.23 kg/m2 | SpO2 97% Filed Vitals: 10/30/15 2325 10/31/15 0334 10/31/15 0746 10/31/15 1151 BP: 131/83 122/84 138/97 126/89 Pulse: 112 124 141 133 Temp: 98.2 F (36.8 C) 98.2 F (36.8 C) 98 F (36.7 C) 97.9 F (36.6 C) TempSrc: Axillary Axillary Oral Oral Resp: 20 20 20 20 Height: Weight: 58.6 kg (129 lb 3 oz) SpO2: 96% 94% 98% 97% Intake/Output Summary (Last 24 hours) at 10/31/15 1207 Last data filed at 10/31/15 1153 Gross per 24 hour Intake 2938 ml Output 3000 ml Net -62 ml CBC: Lab Results Component Value Date WBC 18.77* 10/31/2015 RBC 2.71* 10/31/2015 HGB 7.6* 10/31/2015 HCT 24.0* 10/31/2015 MCV 88.6 10/31/2015 MCH 28.0 10/31/2015 MCHC 31.6* 10/31/2015 RDW 49.4 10/31/2015 PLT 498* 10/31/2015 MPV 6.8 10/31/2015 DIFFTYPE AUTOMATED 10/31/2015 CMP: Lab Results Component Value Date NA 143 10/31/2015 K 4.1 10/31/2015 CL 107 10/31/2015 CO2 29 10/31/2015 ANIONGAP 11 10/31/2015 GLUF 91 10/31/2015 BUN 11 10/31/2015 CREATININE 1.0 10/31/2015 BCR 11 10/31/2015 CA 8.2* 10/31/2015 PROT 6.7 10/31/2015 ALB 1.5* 10/31/2015 GLOB 5.2* 10/31/2015 BILITOT 0.9 10/31/2015 ALP 71 10/31/2015 AST 15 10/31/2015 ALT 20 10/31/2015 EGFR >60 10/31/2015 Magnesium: Lab Results Component Value Date MG 1.4* 10/31/2015 Phosphorus: Lab Results Component Value Date PHOS 3.3 10/31/2015 PT/INR: Lab Results Component Value Date PROTIME DUPLICATE ORDER 10/19/2015 INR 1.1 10/19/2015 PTT: Lab Results Component Value Date APTT 27 10/19/2015 [APTT Imaging @IMAGES@ Scheduled Medications clonazePAM 1 mg Oral TID fentaNYL 1 patch Transdermal Q72H lidocaine 1 mL Intradermal Once lidocaine-EPINEPHrine 1 mL Infiltration Once Magnesium 500 mg Oral BID metoprolol 50 mg Oral BID piperacillin-tazobactam 3.375 g Intravenous Q8H QUEtiapine 150 mg Oral QAM QUEtiapine 150 mg Oral QPM sodium chloride 10 mL Intravenous 2 times per day vancomycin 19 mg/kg Intravenous Q8H Continuous Infusions sodium chloride (IV) 110 mL/hr at 10/31/15 0837 PRN Medications acetaminophen, albuterol, aluminum-magnesium hydroxide-simethicone, benztropine mesylate, d [id number]-dnifbs-ljogphktb oral solution, haloperidol lactate, lip moisturizer, LORazep am, morphine, morphine OR morphine OR morphine, ondansetron OR ondansetron, prom ethazine, simethicone, sodium chloride, sodium chloride Balta Li MD 10/31/201512:07 PM onversion Transaction, Provider Unknown - 10/31/2015 10:52 AM PDTFormatting of this note might be different from th e original. Therapy Progress Note by Megan Maki CCC-SOFTWARE CONSULTANT at 10/31/15 1052 Author: ZEINAB RiversSOFTWARE CONSULTANT Service: (none) Author Type: Speech and Manager Medical Device ologist Filed: 10/31/15 1053 Date of Service: 10/31/15 105 Status: Signed Bisque Brusher: ZEINAB RiversSOFTWARE CONSULTANT (Speech and Language Pathologist) 10/31/15 1051 SOFTWARE CONSULTANT Last Visit SOFTWARE CONSULTANT Received On 10/31/15 Requires SOFTWARE CONSULTANT Follow Up Refusal ST attempted to follow-up for diet tolerance. Pt refused trials at this time, stating he wa s "too full." Sitter reports pt consumed six of the 4 ounce orange juices this morning witho ut demo'd difficulty. Census permitting, ST to follow when pt agreeable to trials. onver patti Transaction, Provider Unknown - 10/31/2015 6:22 AM PDT Nurse Progress Note by Leticia Godinez RN at 10/31/15 0622 Author: Leticia Godinez RN Service: (none) Author Type: Registered Nurse Filed: 10/31/15621 Date of Service: 10/31/15621 Status: Signed Bisque Brusher: Leticia Godinez RN (Registered Nurse) Pt afebrile this NOC shift. Leticia Godinez RN eanna grande, Usman Ragsdale MD - 10/30/2015 7:22 PM PDT Progress Notes by Usman Villatoro MD at 10/30/151921 Author: Usman Villatoro MD Service: Infectious Disease Author Type: Physician Filed: 11/05/15722 Date of Service: 10/30/151921 Status: Addendum Bisque Brusher: Usman Villatoro MD (Physician) Related Notes: Original Note by Usman Villatoro MD (Physician) filed at 11/02/151924 [facility] Service: Infectious Disease Progress Note Hospital Day: LOS: 29 days Post-Op Day: * No surgery found * SUBJECTIVE Patient Summary: CC: Fever, chest pain and altered mental status From [employer] admission note on 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 male with significant history of tobacco and drug abuse using daily heroin and methamphetamine, also on Suboxone. He initially presented to [facility] for progressive weakness, lethargy, and ge neralized pain (mostly his chest, neck, back, knees, ankles and toes) for the past 7 days. H e noticed that his ankles and right knee were swollen but not warm or erythematous. Nessa g to his girlfriend, he has been feeling sick and febrile for the past week with poor PO int elisha. Yesterday, she noticed that he seemed like he was hallucinating and talking to himself. He was very weak today that she had to assist him to get into the car to go the the ED. Exam at OSH was significant for point tenderness at the area of the cervical spine and posi tive Kernig's sign. LP was performed to rule out meningitis. IV antibiotics started, ceftria xone 2 gm and vancomycin [address] head and C-spine x-ray performed, MRI attempted but patient decompensated and was intubated for respiratory failure and airway protection. Significant labs: Na 114 (1435 hrs), BUN 81, Crea 2.48, WBC 19.9, Hb 11.6, Plt 51, Tbili 3. 6, AST 188, ALT 155, LA 1.7. CSF: clear, colorless, WBC 0, RBC 3. Protein 31. Glucose 50. Culture with no growth to d ate Blood cultures are reported to be growing GPCs at [place] Transferred to [facility] for further care. MRI of brain and spine carried out with limited findi ngs due to non-contrast study. Evaluated by Nephrology, acute renal failure attributed to hemodynamics. Evaluated by Dr. Bhardwaj from orthopedics: Does not think patient has ankle septic joint and does not recomme nd surgical intervention. Echocardiogram showed moderate size mobile vegetation attached to the septal tricuspid valv e leaflet, moderate tricuspid regurgitation, moderate pulmonary hypertension with mildly enl arged right ventricle. Evaluated by CTS, surgery not recommended On 10/01, extubated On 10/02, he was transferred out of the ICU. On 10/04, patient had worsening mental status and also became tachypneic. He became more hy ponatremic with worsening renal function. Bilateral moderate sized pleural effusions were n oted on chest CT scan. Bedside ultrasound with bilateral pleural effusion, R>L. Left minimal and without echogenic ity suggestive of infectious pleural effusion. Left effusion is moderate with fibrin strands concerning for complicated/infectious pleural effusion. Right pig tail chest tube placed wi th purulent drainage. Head CT scan negative On 10/05, started on hemodialysis On October 08, left chest tube was placed. Reintubated on October 11. On 10/16-, patient was febrile to 101.4F. Blood cultures were sent. On 10/18, echocardiogram showed possible mobile vegetation at the posterior mitral valve leaf let along with known tricuspid valve vegetation. Right IJ hemodialysis catheter was placed. PICC was discontinued. He complained of abdominal pain and tenderness; CT scan was done salomon t showed mid to distal ileum and right colitis. On 10/19, transesophageal echocardiogram reported as showing no mitral vegetation with large, mobile vegetation at the tricuspid valve and severe tricuspid regurgitation. CT surgery ree valuated the patient; proceeding with medical management. Kidney biopsy done. CC: Endocarditis Chart reviewed: No new events. Subjective Events Overnight: Patient was previously stable but spiked temp today to 101.9F, note d to be more tachypneic and tachycardic. Denies dyspnea, cough, chest pain, abdominal pain, vomiting, diarrhea, dysuria, headache, neck/back pain or new skin lesions. HD catheter d/c' d. Fever work up ongoing; antibiotics broadened from nafcillin to Zosyn/vancomycin Scheduled Medications clonazePAM 1 mg Oral TID fentaNYL 1 patch Transdermal Q72H lidocaine 1 mL Intradermal Once lidocaine-EPINEPHrine 1 mL Infiltration Once Magnesium 500 mg Oral BID metoprolol 50 mg Oral BID piperacillin-tazobactam 3.375 g Intravenous Q8H QUEtiapine 150 mg Oral QAM QUEtiapine 150 mg Oral QPM sodium chloride 10 mL Intravenous 2 times per day vancomycin 19 mg/kg Intravenous Q8H Continuous Infusions sodium chloride (IV) 110 mL/hr at 10/30/15 1630 PRN Medications acetaminophen, albuterol, aluminum-magnesium hydroxide-simethicone, benztropine mesylate, d saowrpemdCJOJX-uglsts-asgugrsks oral solution, haloperidol lactate, lip moisturizer, LORazep am, morphine, morphine OR morphine OR morphine, ondansetron OR ondansetron, prom ethazine, simethicone, sodium chloride, sodium chloride, sodium chloride, sodium chloride OBJECTIVE Vital Signs: BP 126/89 mmHg | Pulse 133 | Temp(Src) 97.3 F (36.3 C) (Oral) | Resp 20 | Ht 1.702 m (5 ' 7") | Wt 63.7 kg (140 lb 6.9 oz) | BMI 21.99 kg/m2 | SpO2 97% Temp: [97.3 F (36.3 C)-101.9 F (38.8 C)] 97.3 F (36.3 C) (10/29 1901) BP: (121-130)/(82-94) 126/89 mmHg (10/29 1901) Heart Rate: [116-133] 133 (10/29 1526) Resp: [18-32] 20 (10/29 1901) SpO2: [96 %-98 %] 97 % (10/29 1901) Physical Exam Vitals reviewed. General: Awake, anxious HEENT: Normocephalic, anicteric sclerae, conjunctival pallor. No oral thrush. Supple nec k. Lungs: No rales, wheezes or rhonchi CV: Tachycardic, regular; I do not appreciate heart murmur Abdomen: NO distention, positive bowel sounds, soft, no tenderness or masses Skin: NO new rash; prior extensive rash at upper and lower extremities improved with resid ual crusting PICC site is unremarkable MS: NO inflamed looking joints Neurologic: Oriented x 3; generalized weakness noted DATA CBC: Lab Results Component Value Date WBC 10.81 10/30/2015 RBC 2.73* 10/30/2015 HGB 7.8* 10/30/2015 HCT 23.9* 10/30/2015 MCV 87.6 10/30/2015 MCH 28.4 10/30/2015 MCHC 32.5 10/30/2015 RDW 49.0 10/30/2015 PLT 411* 10/30/2015 MPV 6.8 10/30/2015 DIFFTYPE AUTOMATED 10/30/2015 WBC: Lab Results Component Value Date WBC 10.81 10/30/2015 NEUTABSMAN 8.95* 10/29/2015 NEUTROABS 7.76* 10/30/2015 NEUTROMAN 82 10/29/2015 LYMPHOABS 0.65* 10/29/2015 LYMPHOMAN 6 10/29/2015 LYMPHSABS 1.52 10/30/2015 LYMPHOPCT 14.08 10/30/2015 MONOABSMAN 0.76 10/29/2015 MONOMAN 7 10/29/2015 MONOPCT 8.89 10/30/2015 EOSINOABS 0.55* 10/29/2015 EOSINOMAN 5 10/29/2015 EOSABS 0.50 10/30/2015 EOSPCT 4.62 10/30/2015 BASOSABS 0.07 10/30/2015 BASOPCT 0.64 10/30/2015 PLTEST ADEQUATE 10/18/2015 BANDSPCT 2 10/17/2015 METAABS 0.26* 10/13/2015 METAPCT 1 10/13/2015 MYELOABS 0.17* 10/09/2015 MYELOPCT 1 10/09/2015 COMDIFF SLIDE SCANNED, AGREES WITH AUTOMATED RESULTS. 10/18/2015 CMP: Lab Results Component Value Date NA 140 10/30/2015 K 3.9 10/30/2015 CL 104 10/30/2015 CO2 30 10/30/2015 ANIONGAP 10 10/30/2015 GLUF 92 10/30/2015 BUN 11 10/30/2015 CREATININE 1.0 10/30/2015 BCR 11 10/30/2015 CA 7.9* 10/30/2015 PROT 5.8* 10/22/2015 ALB 1.2* 10/22/2015 GLOB 4.6 10/19/2015 BILITOT 1.5 10/22/2015 ALP 67 10/22/2015 AST 22 10/22/2015 ALT 18 10/22/2015 EGFR >60 10/30/2015 Component Latest Ref Rng 10/19/2015 10/19/2015 10/19/2015 10/30/2015 4:54 AM 8:38 AM 1:02 PM 4:34 PM Lactate, Ceciilo 0.4 - 2.0 mmol/L 0.3 (L) 0.3 (L) 0.4 1.5 Blood cultures sent Impression Left PICC tip in expected position. Bilateral nodularity consistent with septic emboli and multifocal infection. CHEST 1 VIEW [[id number]] PROBLEM LIST Principal Problem: Sepsis (HCC) Active Problems: Hyposmolality and/or hyponatremia MARCEL (acute kidney injury) (HCC) Leucocytosis Thrombocytopenia (HCC) Toxic metabolic encephalopathy Acute respiratory failure with hypoxia (HCC) Heroin abuse Methamphetamine abuse Tobacco abuse Acute septic pulmonary embolism (HCC) Acute infective endocarditis Moderate protein-calorie malnutrition (HCC) Hallucination, visual Severe protein-calorie malnutrition (HCC) ASSESSMENT & PLAN MSSA sepsis, tricuspid valve endocarditis -Patient has MSSA bacteremia, tricuspid valve endocarditis with septic pulmonary emboli re lated to IV drug use -Neck pain and back pain improved; noncontrast MRI of spine and brain on presentation show s no evidence of infection -No evidence of septic arthritis; evaluated by orthopedics -Blood cultures on admission here have no growth. -CT scan performed on October 08 confirmed continued pleural effusion on the left, chest tube placed and d/c'd. -On 10/17, he was febrile so blood cultures repeated on 10/17 with no growth. TTE showed tr icuspid valve vegetation and a new mitral valve vegetation. Transesophageal echocardiogram s howed no MV vegetation; Dr. Arias, CTS recommends to continue medical management. Right u pper extremity PICC d/c'd on 10/18, catheter tip culture with no growth. Right IJ hemodialysis catheter removed at this time. New PICC placed on 10/20 -On IV antibiotics, day #29 of 42. -Febrile today; blood cultures sent. Antibiotics broadened to IV vanco and Zosyn. CXR sh ows extensive lung disease from pulmonary emboli with no significant pleural effusion. If f isabel persist, may need to repeat Echo Acute hypoxemic respiratory failure -improved Hallucinations Not likely to be secondary to nafcillin, despite maximal dosing. Appears to be better tod ay, will monitor. MARCEL -Better. No adjustment needed for nafcillin. Renal biopsy done on 10/19, results show acute tubular injury. Abnormal LFTs -Resolved. Petechial/purpuric rash -Suspected ecthyma. Better. Skin care. IV drug use -Not a candidate for outpatient IV antibiotics. HIV negative. Case discussed with Dr. Li Code Status: Full Code USMAN VILLATORO MD 10/30/2015 onversion Moses saction, Provider Unknown - 10/30/2015 7:04 PM PDTFormatting of this note might be differen t from the original. Progress Notes by Fabián Sosa RN at 10/30/151903 Author: Fabián Ssoa RN Service: (none) Author Type: Registered Nurse Filed: 10/30/151921 Date of Service: 10/30/151903 Status: Addendum Bisque Brusher: Fabián Sosa RN (Registered Nurse) Related Notes: Original Note by Katie Salvador RN (Registered Nurse) filed at 10/29 Early in the shift Pt displayed an increase in anxiety and agitation. Pt medicated with PRN Haldol, after which he slept for several hours. Soon after awaking, Pt had an increase in t emp, HR, and RR. Tylenol was given. Dr. Li notified and orders for BLC x2, lactic acid, ve nous pH, and urine culture were entered, drawn, and sent. Toward the end of the shift, Pt be came anxious again, and was given PRN ativan. Pt VSS. Pt visualized hourly. Call light withi n reach. Sitter at bedside. Katie Salvador RN FABIÁN SOSA RN onver patti Transaction, Provider Unknown - 10/30/2015 4:53 PM PDT Progress Notes by Boogie Sheridan RPH at 10/30/151652 Author: Boogie Sheridan RPH Service: (none) Author Type: Pharmacist Filed: 10/30/151652 Date of Service: 10/30/151652 Status: Signed Bisque Brusher: Boogie Sheridan RPH (Pharmacist) Initiation of Vancomycin Pharmacy Dosing Yang Ridley 30 y.o. male 1.702 m (5' 7") 63.7 kg (140 lb 6.9 oz) Body mass index is 21.99 kg/(m^2). CREATININE Date Value Ref Range Status 10/30/2015 1.0 0.70 - 1.30 mg/dL Final Comment: Testing performed at [facility], [address] [place] [id number] Estimated CrCl : CREATININE: 1 (10/30/15 0422) Estimated creatinine clearance - 95.6 mL/min Indications: Sepsis Dose per Protocol: Vancomycin 1250mg Q8 Hours. First Dose to be Given: 10/29 at 1800 Vancomycin Trough Due: 10/30 at 1700 Goal Trough for Vancomycin: 15-20 mcg/mL Pharmacist: Boogie Sheridan 10/30/2015 4:52 PM onver patti Transaction, Provider Unknown - 10/30/2015 4:34 PM PDT Progress Notes by Diana Vitale RPH at 10/30/151633 Author: Diana Vitale RPH Service: (none) Author Type: Pharmacist Filed: 10/30/151633 Date of Service: 10/30/151633 Status: Signed Bisque Brusher: Diana Vitale RPH (Pharmacist) Zosyn Extended Infusion Initial Consult Yang Ridley 30 y.o. male Estimated Creatinine Clearance: 95.6 mL/min (by C-G formula based on Cr of 1). NEUTROPHILS ABS Date Value Ref Range Status 10/30/2015 7.76* 1.90 - 7.40 K/uL Final Comment: Testing performed at [facility], [address] [place] [address] CREATININE Date Value Ref Range Status 10/30/2015 1.0 0.70 - 1.30 mg/dL Final Comment: Testing performed at [facility], [address] [place] [address] Zosyn extended Infusion loading and maintenance dose guidelines: Plan per pharmacy protocol: Loading Dose Re-load if maintenance dose is not given within > = 4 hours 4.5 g IV Over 30 minutes CrCl >20 ml/min 3.375 g IV Q 8 hours Over 4 hours CrCl 10-20 ml/min *Do Not re-load if CrCl ?20 ml/min regardless of time in between dosing 3.375 g IV Q 12 hector rs Over 4 hours CrCl <10, HD, PD Zosyn 4.5 g IVPB loading dose over 30 minutes starting @1700 followed by Zosyn 3.375 g IVPB extended infusion over 4 hours Q 8 hours starting @ 1930 Pharmacy will continue monitoring patient for appropriate dosing per renal function. 10/30/2015 4:33 PM Pharmacist: Diana Vitale Balta Mark MD - 10/30/2015 4:27 PM PDTFormatting of this note might be different from the origi nal. Significant Event by Balta Li MD at 10/30/15 4588 Author: Balta Li MD Service: (none) Author Type: Physician Filed: 10/30/15 7892 Date of Service: 10/30/151626 Status: Signed Bisque Brusher: Balta Li MD (Physician) Called by RN for patient to have fever up to 101.9. Patient also somewhat more tachypneic a nd tachycardic compared to before. Patient denies any respiratory distress, cough, sputum, c hest pain, nausea, vomiting, diarrhea. No new skin lesions or joint swelling. Patient had HD catheter taken out, but fever was before that. Discussed with ID. We'll start patient on vancomycin, Zosyn. Possible sources could be line sepsis versus aspiration. Have ordered for repeat blood culture 2, UA, urine culture, narendra st x-ray. We will also check for ABG with lactic acid. Currently, patient without any oxygen needs. No fluid overload. Will start IV fluids at 110 cc per hour. Decrease metoprolol to 5 0 by mouth twice a day as he was before. onversion Transaction, Provider Unknown - 10/30/2015 3:46 PM PDTFormatting of this note might be different from th e original. Progress Notes by Carly Tovar RD at 10/30/15 4280 Author: Carly Tovar RD Service: (none) Author Type: Registered Dietitian Filed: 10/30/15 4302 Date of Service: 10/30/151545 Status: Signed Bisque Brusher: Carly Tovar RD (Registered Dietitian) 10/30/15 6687 Subjective Timepoint Follow up (dysphagia) Fluid / Beverage Intake Oral Fluids Amount Clanton-thick liquids ad radha, had milk with lunch. Liquid Meal Replacement or Supplement Pt receiving Boost Plus and per pt's sitter, he is dr inking some of them. Food Intake Amount of Food Pt eating lunch as we spoke. He ate almost all of the turkey tetrazzini and carrots. Average recorded intake: 75% x 4 meals. Type of Food / Meals General, Dysphagia advanced diet Micronutrient Intake Vitamin Intake K Mineral / Element Intake Magnesium Nutrition-Focused Physical Findings Digestive System (Mouth to Rectum) Pt requiring dysphagia advanced diet and nectar-thick li quids. SOFTWARE CONSULTANT is following. Skin Per notes, pt's skin lesions are "crusting over." Pt now with dry, peeling skin. Anthropometrics Weight change Wt on 10/28/15: 63.7 kg, down 5.4 kg (7.8%) from admit (1 month) - severe loss . Further wt loss to be avoided. Biochemical data, medical tests, and procedures reviewed Biochemical data, medical tests, and procedures reviewed Mg 1.5 (L) - being replaced. Recommendations Recommended energy needs Continue General, dysphagia advanced diet with nectar-thick liquid s. Continue Henderson Boost Plus TID (nectar-thick). Will add magic cup with lunch and dinner to help prevent further wt loss. Encourage po intake. Nutritional Risk Nutritional risk Moderate Follow up date 11/04/15 onver patti Transaction, Provider Unknown - 10/30/2015 3:41 PM PDT Case Management by SAMEERA Foster at 10/30/15 1541 Author: SAMEERA Foster Service: (none) Author Type: Fuse Assembler Filed: 10/30/15 1541 Date of Service: 10/30/15 1541 Status: Signed Bisque Brusher: SAMEERA Foster (Fuse Assembler) CM faxed referrals to [facility] in [place], [facility], [facility] and [facility] in [facility]. Pt has [place] Medicaid and cannot be placed in [place]. Will await calls or will follow up if no response. Rhona Stevens MA, CCC-SOFTWARE CONSULTANT - 10/30/2015 1:27 PM PDTFormatting of this note might be differ ent from the original. Therapy Progress Note by Rhona Grey MA CCC-SOFTWARE CONSULTANT at 10/30/15 1327 Author: Rhona Grey MA CCC-SOFTWARE CONSULTANT Service: (none) Author Type: Speech and Language Pathologist Filed: 10/30/15 1338 Date of Service: 10/30/15 1327 Status: Signed Bisque Brusher: Rhona Grey MA CCC-SOFTWARE CONSULTANT (Speech and Language Pathologist) 10/30/15 1300 SOFTWARE CONSULTANT Last Visit SOFTWARE CONSULTANT Received On 10/30/15 Requires SOFTWARE CONSULTANT Follow Up Yes (Re-assessment following AM evaluation d/t meds. ) Swallowing Assessment Eval Swallowing Treatment Yes Initial Swallow Assessment Respiratory Status Room air Behavior/Cognition Alert;Cooperative Dentition Adequate Vision Functional for self-feeding Patient Positioning Upright in bed Baseline Vocal Quality Breathy;Weak Volitional Cough Weak Volitional Swallow Delayed Consistencies Consistencies Assessed Yes Thin Presentation Cup;Self Fed Oral Phase Thin Increased hold time Pharyngeal Phase Delayed swallow initiated;Decreased laryngeal elevation upon palpation;Cou gh - immediate;Cough - delayed Clanton Presentation Cup;Self Fed Oral Increased Anterior to Posterior Transit Pharyngeal Phase Delayed swallow initiated;Decreased laryngeal elevation upon palpation;Spo ntaneous multiple swallow;No overt signs or symptoms of aspiration Puree Presentation Self Fed Oral Phase WFL Pharyngeal Delayed Swallow;Decreased Laryngeal Elevation;Spontaneous multiple swallow Dysphagia Mechanically Altered Presentation Self Fed Oral Phase Increased holding time;Prolonged mastication Pharyngeal Phase Delayed Swallow;Decreased Laryngeal Elevation Regular Presentation Self Fed Oral Phase Increased Anterior to Posterior Transit;Prolonged mastication Pharyngeal Phase Delayed Swallow;Decreased Laryngeal Elevation Recommendations Liquids Consistency Recommendations Clanton thick Diet Consistency Recommendation Dysphagia Advanced Recommendations Dysphagia treatment;Speech/ Language Eval & Treat;Feeding assist;Set up wit h meals;Check on patients frequently throught out meals Risk for Aspiration Moderate Compensatory Swallowing Strategies Upright as possible for all oral intake;Remain upright f or 30 minutes after meals;Alternate solids and liquids;Swallow 2 times per bite/sip;Small bi ezio/sips;Eat/feed slowly;Effortful swallow Recommended Form of Meds Meds with recommended liquid (Observed 1 medication with thins, no difficulty. ) Summary Pt seen for follow up dysphagia tx. Per RN, pt was evaluated this AM but had been r ecently given anti-anxiety medication and was very lethargic. Asked to re-assess swallow fun ction PM. This PM, pt was alert, sitting up in bed, agreeable to tx session. Pt trialed thin liquids by cup with immediate and delayed cough (4/6 trials). Pt trialed nectar thick liqui ds (12 oz) alternating with puree, DMA and regular consistencies with no overt s/sx of aspir ation. Pt observed to demonstrate extremely weak, breathy vocal quality. He states it has re mained constant since intubation (10/01). Pt's vocal quality may be suggestive of vocal patho logy warranting further voice evaluation. Recommend ENT consult/further voice evaluation by SOFTWARE CONSULTANT; recommend NTL with dysphagia advanced diet; strict aspiration precautions. Pt is at hig h risk to aspirate and should be closely supervised during all PO intake. ST to follow to en sure diet tolerance, pt/family education, assessment for upgrade. Pt verbally educated re sw allow precautions and stated understanding. Staff Notified RN Plan of Care Treatment Plan ST to follow;Dysphagia treatment;Continue with current plan Treatment Frequency 4-6 x/week Follow up treatments Swallow strategies;Diet tolerance monitoring;Assessment for upgrade;Pa tient/Family education AVS Documentation Yes Diet Dysphagia advanced: soft bread and lightly toasted bread ok, food cut into pieces i nch or smaller, no crunchy fresh fruits/veggies, melons ok, shredded lettuce w/salad dressin g ok Liquids Clanton thick liquids: liquids that are thickened to tomato juice consistency SOFTWARE CONSULTANT Ready for Discharge Yes Dysphagia Goals Cotton Weigher Goals Advanced diet Pt will advanced diet in 3 days;Goal progressing Short Term Goals Tolerate diet upgrade trials Pt will tolerate diet upgrade trials With 1:1 supervision;Goal progressing Balta Mark MD - 10/30/2015 1:21 PM PDTFormatting of this note might be different from the origi nal. Progress Notes by Balta Li MD at 10/30/15 1321 Author: Balta Li MD Service: (none) Author Type: Physician Filed: 10/30/15 3104 Date of Service: 10/30/15 1321 Status: Signed Bisque Brusher: Balta Li MD (Physician) [facility] Service: Hospitalist Progress Note Hospital Day: LOS: 29 days Consultants: Treatment Team: Consulting Physician: Chris Swann DO Consulting Physician: Gonzalez Bhardwaj MD Consulting Physician: Femi Vaughan MD Consulting Physician: Rodolfo Salguero MD Admitting Provider: Carly Thomas DO The first problem in assessment is the principal problem. ASSESSMENT/ PLAN 30-year-old male with past medical history of IV drug use including heroin, methamphetamine , who presented with weakness, was found to have infective endocarditis involving the tricus pid valve. Status post intubation. Initially needing pressors also had presentation with sev ere hyponatremia and worsening renal failure. Later on transferred to the medical floor but had more decompensation and had to be transferred back to ICU with need of dialysis and rein tubation. Has had a long complicated hospital course. Please see ICU note from 10/26 for furth er details. He has needed a few units of blood transfusion, Precedex for anxiety and when ne cessary Haldol and on Seroquel for agitation. Currently being followed by ID, nephrology of dialysis. Has been seen by CT surgery and ort hopedic surgery. 1. MSSA infective endocarditis and septic pulmonary emboli: Appreciate help from ID, now elma howard with slow improving his petechial rash is improved. Continue with nafcillin IV for a t otal of 42 days will be inpatient to then and might need rehabilitation even after that. pat ient family interested in detox after hospital discharge. Sister at bedside 2. Acute kidney injury, status post needle dialysis currently has a tunnel catheter,. discu ss with nephrology. They have signed off. Recommended to DC HD catheter. Discussed with IR, Dr. Vaughan will most likely due tomorrow. 3. Tachycardia : Currently on metoprolol. Will increase as tolerated. will increase to 75 m g daily 4. Agitation, anxiety, withdrawal, currently on Seroquel 150 mg twice a day. also the Klono pin 1 mg 3 times a day. 5. Pain on fentanyl patch 50 mics and morphine IV when necessary continue with same. we'll order for morphine oral when necessary 6. Dysphagia: Will f/u speech therapy. Will f/u his voice and might have to consider ENT. Disposition: inpatient for now. Code Status: Full Code Dictation and program proposals coordinator or software, Social Media Simplified, used which may contain error for similar s ounding words even after review. Personal communication requested for any clarification. SUBJECTIVE Events Overnight: *had an episode of significant cough this morning. Otherwise, no episode s of agitation or anxiety yesterday but this morning was somewhat anxious. OBJECTIVE General: poorlyrished. Psych: more awake and alert. Calm, cooperative. Cardiovascular: tachycardic Regular rate and rhythm, Systolic murmurs, no thrills. Normal PMI. Respiratory: mild wheezing in bilateral rhonchi, breathing slightly labored. Gastrointestinal: Soft, non-tender, non-distended, positive bowel sounds. No HSM. Musculoskeletal: Mild edema in bilateral lower extremities. No joint swelling. Neck: No JVD, Trachea midline. Neurological: Non focal. Motor grossly intact. PROBLEM LIST Principal Problem: Sepsis (HCC) Active Problems: Hyposmolality and/or hyponatremia MARCEL (acute kidney injury) (HCC) Leucocytosis Thrombocytopenia (HCC) Toxic metabolic encephalopathy Acute respiratory failure with hypoxia (HCC) Heroin abuse Methamphetamine abuse Tobacco abuse Acute septic pulmonary embolism (HCC) Acute infective endocarditis Moderate protein-calorie malnutrition (HCC) Hallucination, visual Severe protein-calorie malnutrition (HCC) PMH Past Medical History Diagnosis Date Illicit drug use, continuous HOME MEDICATIONS Prior to Admission medications Not on File DATA Vital Signs: BP 121/86 mmHg | Pulse 125 | Temp(Src) 98.5 F (36.9 C) (Oral) | Resp 18 | Ht 1.702 m (5 ' 7") | Wt 63.7 kg (140 lb 6.9 oz) | BMI 21.99 kg/m2 | SpO2 97% Filed Vitals: 10/29/15 2300 10/30/15 0348 10/30/15 0730 10/30/15 1048 BP: 122/82 126/94 130/90 121/86 Pulse: 117 116 122 125 Temp: 98.4 F (36.9 C) 97.7 F (36.5 C) 98.3 F (36.8 C) 98.5 F (36.9 C) TempSrc: Oral Axillary Oral Oral Resp: Height: Weight: SpO2: 98% 97% 96% 97% Intake/Output Summary (Last 24 hours) at 10/30/15 1321 Last data filed at 10/30/15 0948 Gross per 24 hour Intake 2035 ml Output 1725 ml Net 310 ml CBC: Lab Results Component Value Date WBC 10.81 10/30/2015 RBC 2.73* 10/30/2015 HGB 7.8* 10/30/2015 HCT 23.9* 10/30/2015 MCV 87.6 10/30/2015 MCH 28.4 10/30/2015 MCHC 32.5 10/30/2015 RDW 49.0 10/30/2015 PLT 411* 10/30/2015 MPV 6.8 10/30/2015 DIFFTYPE AUTOMATED 10/30/2015 CMP: Lab Results Component Value Date NA 140 10/30/2015 K 3.9 10/30/2015 CL 104 10/30/2015 CO2 30 10/30/2015 ANIONGAP 10 10/30/2015 GLUF 92 10/30/2015 BUN 11 10/30/2015 CREATININE 1.0 10/30/2015 BCR 11 10/30/2015 CA 7.9* 10/30/2015 PROT 5.8* 10/22/2015 ALB 1.2* 10/22/2015 GLOB 4.6 10/19/2015 BILITOT 1.5 10/22/2015 ALP 67 10/22/2015 AST 22 10/22/2015 ALT 18 10/22/2015 EGFR >60 10/30/2015 Magnesium: Lab Results Component Value Date MG 1.5* 10/30/2015 Phosphorus: Lab Results Component Value Date PHOS 3.3 10/30/2015 PT/INR: Lab Results Component Value Date PROTIME DUPLICATE ORDER 10/19/2015 INR 1.1 10/19/2015 PTT: Lab Results Component Value Date APTT 27 10/19/2015 [APTT Imaging @IMAGES@ Scheduled Medications clonazePAM 1 mg Oral TID fentaNYL 1 patch Transdermal Q72H Magnesium 500 mg Oral BID metoprolol 50 mg Oral BID nafcillin 2 g Intravenous Q4H QUEtiapine 150 mg Oral QAM QUEtiapine 150 mg Oral QPM sodium chloride 10 mL Intravenous 2 times per day Continuous Infusions PRN Medications acetaminophen, albuterol, aluminum-magnesium hydroxide-simethicone, benztropine mesylate, d eseraikpmVLKSA-mmguuq-zdvdkxeqd oral solution, haloperidol lactate, lip moisturizer, LORazep am, morphine OR morphine OR morphine, ondansetron OR ondansetron, promethazine, simethicone, sodium chloride, sodium chloride, sodium chloride, sodium chloride Balta Li MD 10/30/20151:21 PM Rhona Adan PT - 10/30/2015 12:06 PM PDT Therapy Progress Note by Rhona Wray PT at 10/30/15 1206 Author: Rhona Wray PT Service: (none) Author Type: Physical Therapist Filed: 10/30/15 1214 Date of Service: 10/30/15 1206 Status: Signed Bisque Brusher: Rhona Wray PT (Physical Therapist) 10/30/15 1206 PT Last Visit PT Received On 10/30/15 Reason for Treatment Deconditioning Requires PT Follow Up Unavailable (with other service) onversion Transa ction, Provider Unknown - 10/30/2015 12:01 PM PDT Therapy Progress Note by CYNDI Victor at 10/30/15 1201 Author: CYNDI Victor Service: (none) Author Type: Massage Therapist Filed: 10/30/15 1202 Date of Service: 10/30/15 1201 Status: Signed Bisque Brusher: CYNDI Victor (Massage Therapist) 10/30/15 1201 MT Last Visit MT Received On 10/30/15 MT Therapy Visit Not available (resting) onver patti Transaction, Provider Unknown - 10/30/2015 10:04 AM PDT Therapy Progress Note by ZEINAB RiversSOFTWARE CONSULTANT at 10/30/15 1004 Author: HENRIETTA Rivers Service: (none) Author Type: Speech and Manager Medical Device ologist Filed: 10/30/15 1004 Date of Service: 10/30/15 1004 Status: Signed Bisque Brusher: ZEINAB RiversSOFTWARE CONSULTANT (Speech and Language Pathologist) 10/30/15 0945 SOFTWARE CONSULTANT Last Visit SOFTWARE CONSULTANT Received On 10/30/15 Requires SOFTWARE CONSULTANT Follow Up Yes Swallowing Assessment Eval Swallowing Evaluation Yes Initial Swallow Assessment Temperature Spikes Noted No Respiratory Status Room air Behavior/Cognition Lethargic;Requires cueing;Cooperative Dentition Adequate Vision Impaired for self-feeding Patient Positioning Upright in bed Baseline Vocal Quality Weak Volitional Cough Weak Consistencies Consistencies Assessed Yes Ice Chips Presentation Spoon Oral Phase Increased holding time Pharyngeal Phase Delayed swallow initiation;Cough - Delayed;Throat Clearing - Immediate Thin Presentation Spoon;Cup Oral Phase Thin Increased hold time Pharyngeal Phase Delayed swallow initiated;Throat clearing - delayed;Cough - delayed [place] Presentation Spoon Oral Increased Anterior to Posterior Transit Pharyngeal Phase No overt signs or symptoms of aspiration;Delayed swallow initiated Recommendations Liquids Consistency Recommendations NPO/No liquids Diet Consistency Recommendation NPO/No solids Recommendations Dysphagia treatment;NPO Risk for Aspiration Severe Recommended Form of Meds Other (comment) (non oral is safest) Summary Per RN pt with choking/coughing episode in a.m. on orange juice/ice. Pt lethargic r equired cueing throughout to maintain KENIA . Pt demo'd delayed/immediate weak cough across ic e and thin trials. Pt demo'd improved tolerance with ntl by spoon however limited trials ocm pleted. Following initiation of trials RN entered room to report pt received haldol and anti cipates fatigue/increased swallowing difficulty for duration of morning.RN to notify ST when pt awake/alert for re-evaluation. Until completion of swallow re-eval rec pt NPO no liquids /solids, no ice chips. ST to re-assess for upgrade when appropriate. Staff Notified RN Plan of Care Treatment Plan Dysphagia treatment;ST to follow Treatment Frequency 4-6 x/week Follow up treatments Assessment for upgrade Dysphagia Goals Cotton Weigher Goals Advanced diet Pt will advanced diet in 3 days;New/revised goal Short Term Goals Tolerate diet upgrade trials Pt will tolerate diet upgrade trials With 1:1 supervision;New/revised goal Balta Mark MD - 10/29/2015 1:30 PM PDTFormatting of this note might be different from the origi nal. Progress Notes by Balta Li MD at 10/29/15 1330 Author: Balta Li MD Service: (none) Author Type: Physician Filed: 10/30/15 1321 Date of Service: 10/29/150 Status: Signed Bisque Brusher: Balta Li MD (Physician) [facility] Service: Hospitalist Progress Note Hospital Day: LOS: 28 days Consultants: Treatment Team: Consulting Physician: Chris Swann DO Consulting Physician: Gonzalez Bhardwaj MD Consulting Physician: Femi Vaughan MD Consulting Physician: Rodolfo Salguero MD Admitting Provider: Carly Thomas DO The first problem in assessment is the principal problem. ASSESSMENT/ PLAN 30-year-old male with past medical history of IV drug use including heroin, methamphetamine , who presented with weakness, was found to have infective endocarditis involving the tricus pid valve. Status post intubation. Initially needing pressors also had presentation with sev ere hyponatremia and worsening renal failure. Later on transferred to the medical floor but had more decompensation and had to be transferred back to ICU with need of dialysis and rein tubation. Has had a long complicated hospital course. Please see ICU note from 10/26 for furth er details. He has needed a few units of blood transfusion, Precedex for anxiety and when ne cessary Haldol and on Seroquel for agitation. Currently being followed by ID, nephrology of dialysis. Has been seen by CT surgery and ort [facility] surgery. 1. MSSA infective endocarditis and septic pulmonary emboli: Appreciate help from ID, now ov anita with slow improving his petechial rash is improved. Continue with nafcillin IV for a t otal of 42 days will be inpatient to then and might need rehabilitation even after that. pat andreant family interested in detox after hospital discharge. Sister at bedside 2. Acute kidney injury, status post needle dialysis currently has a tunnel catheter,. discu ss with nephrology. They have signed off. Recommended to DC HD catheter. Discussed with IR, Dr. Vaughan will most likely due tomorrow. 3. Tachycardia : Currently on metoprolol. Will increase as tolerated. 4. Agitation, anxiety, withdrawal, currently on Seroquel 100 twice a day continue with same . Also on Haldol 5 every 6 and when necessary for agitation has a sitter.will increase Seroq uel to 150 mg twice a day. 5. Pain on fentanyl patch 50 mics and morphine IV when necessary continue with same Disposition: inpatient for now Code Status: Full Code Dictation and program proposals coordinator or software, Social Media Simplified, used which may contain error for similar s ounding words even after review. Personal communication requested for any clarification. SUBJECTIVE Events Overnight: *today morning, agitation, much improved. Upper increase in cervical. No nausea, vomiting, currently appears okay. OBJECTIVE General: poorlyrished. Psych: more awake and alert. Calm, cooperative. Cardiovascular: tachycardic Regular rate and rhythm, Systolic murmurs, no thrills. Normal PMI. Respiratory: mild wheezing in bilateral rhonchi, breathing slightly labored. Gastrointestinal: Soft, non-tender, non-distended, positive bowel sounds. No HSM. Musculoskeletal: Mild edema in bilateral lower extremities. No joint swelling. Neck: No JVD, Trachea midline. Neurological: Non focal. Motor grossly intact. PROBLEM LIST Principal Problem: Sepsis (HCC) Active Problems: Hyposmolality and/or hyponatremia MARCEL (acute kidney injury) (HCC) Leucocytosis Thrombocytopenia (HCC) Toxic metabolic encephalopathy Acute respiratory failure with hypoxia (HCC) Heroin abuse Methamphetamine abuse Tobacco abuse Acute septic pulmonary embolism (HCC) Acute infective endocarditis Moderate protein-calorie malnutrition (HCC) Hallucination, visual Severe protein-calorie malnutrition (HCC) PMH Past Medical History Diagnosis Date Illicit drug use, continuous HOME MEDICATIONS Prior to Admission medications Not on File DATA Vital Signs: BP 122/92 mmHg | Pulse 121 | Temp(Src) 97.7 F (36.5 C) (Oral) | Resp 24 | Ht 1.702 m (5 ' 7") | Wt 63.7 kg (140 lb 6.9 oz) | BMI 21.99 kg/m2 | SpO2 100% Filed Vitals: 10/28/15 2349 10/29/15 0257 10/29/15 0740 10/29/15 1131 BP: 124/89 138/93 128/91 122/92 Pulse: 116 128 127 121 Temp: 97.3 F (36.3 C) 99.2 F (37.3 C) 97.7 F (36.5 C) 97.7 F (36.5 C) TempSrc: Axillary Axillary Oral Oral Resp: Height: Weight: SpO2: 97% 96% 96% 100% Intake/Output Summary (Last 24 hours) at 10/29/15 1330 Last data filed at 10/29/15 1044 Gross per 24 hour Intake 902 ml Output 2375 ml Net -1473 ml CBC: Lab Results Component Value Date WBC 10.91 10/29/2015 RBC 2.93* 10/29/2015 HGB 8.6* 10/29/2015 HCT 25.6* 10/29/2015 MCV 87.4 10/29/2015 MCH 29.4 10/29/2015 MCHC 33.6 10/29/2015 RDW 48.1 10/29/2015 PLT 450* 10/29/2015 MPV 6.9 10/29/2015 DIFFTYPE MANUAL 10/29/2015 CMP: Lab Results Component Value Date NA 139 10/29/2015 K 3.4* 10/29/2015 CL 99 10/29/2015 CO2 31 10/29/2015 ANIONGAP 12 10/29/2015 GLUF 85 10/29/2015 BUN 15 10/29/2015 CREATININE 1.1 10/29/2015 BCR 14 10/29/2015 CA 8.2* 10/29/2015 PROT 5.8* 10/22/2015 ALB 1.2* 10/22/2015 GLOB 4.6 10/19/2015 BILITOT 1.5 10/22/2015 ALP 67 10/22/2015 AST 22 10/22/2015 ALT 18 10/22/2015 EGFR >60 10/29/2015 Magnesium: Lab Results Component Value Date MG 1.5* 10/29/2015 Phosphorus: Lab Results Component Value Date PHOS 3.8 10/29/2015 PT/INR: Lab Results Component Value Date PROTIME DUPLICATE ORDER 10/19/2015 INR 1.1 10/19/2015 PTT: Lab Results Component Value Date APTT 27 10/19/2015 [APTT Imaging @IMAGES@ Scheduled Medications clonazePAM 1 mg Oral TID fentaNYL 1 patch Transdermal Q72H Magnesium 500 mg Oral BID metoprolol 50 mg Oral BID nafcillin 2 g Intravenous Q4H potassium chloride 40 mEq Oral BID WC [START ON 10/30/2015] QUEtiapine 150 mg Oral QAM QUEtiapine 150 mg Oral QPM QUEtiapine 50 mg Oral Once sodium chloride 10 mL Intravenous 2 times per day Continuous Infusions PRN Medications acetaminophen, albuterol, aluminum-magnesium hydroxide-simethicone, benztropine mesylate, d nfkvsvgkwELBYQ-duxaek-mpxajbfzc oral solution, haloperidol lactate, lip moisturizer, LORazep am, morphine OR morphine OR morphine, ondansetron OR ondansetron, promethazine, simethicone, sodium chloride, sodium chloride, sodium chloride, sodium chloride Balta Li MD 10/29/20151:30 PM onversion Transaction, Provider Unknown - 10/29/2015 1:20 PM PDTFormatting of this note might be different from e original. Therapy Progress Note by Omid Menjivar PT at 10/29/15 1320 Author: Omid Menjivar, FANNIE Service: (none) Author Type: Physical Therapist Filed: 10/29/15 1341 Date of Service: 10/29/151319 Status: Signed Bisque Brusher: Omid Menjivar PT (Physical Therapist) 10/29/15 1320 PT Last Visit PT Received On 10/29/15 Reason for Treatment Deconditioning Requires PT Follow Up Yes Follow up PT Only? No Assistance Required 1 person Precautions Other Precautions fall risk Other Comments Comments pt. supine in bed and agreeable to PT. supine to sit SBA, sit to stand Min A, pt. ambulated 300' with SPC with Min A (CGA) pt. started to have slight lateral sway about the last 30' of ambulation and was getting fatigued. pt had guest in room so instead of going through the seated exercises discussed them with pt/sitter and they will go through them lat er this afternoon. pt. supine in bed at end of session with call light in reach, sitter in room and family in room. Cognition Overall Cognitive Status WFL Orientation Level Oriented Bed Mobility Supine to Sit Standby assist Sit to Supine Standby assist Scooting Standby assist Transfers Sit to/from Stand Minimal assist (steadying/contact guard) Mobility Ambulation Assistance Minimal assist Maximal Ambulation Distance (feet) 300 Total Ambulation Distance (feet) 300 Distance limited by? Patient's ability Pattern Decreased jaylin;Forward flexed;Right swing foot doesn't pass stance foot;Left swi ng foot doesn't pass stance foot Modalities Modalities Other therapy Other Therapy ed. on safety mobility Activity Tolerance Activity Tolerance Patient limited by fatigue Nurse Made Aware yes Safety Devices Safety Devices in Place Yes Type of Devices 1:1 sitter maintained Restraints Initially in Place No Plan Treatment/Interventions Continue per Primary PT POC Progress Progressing toward goals Recommendation Recommendations SNF Recommendation Comments pt. should benefit from a SNF to improve strength, functional mobil ity and endurance. onver patti Barnes Provider Unknown - 10/29/2015 11:05 AM PDT Therapy Progress Note by Omid Menjivar PT at 10/29/15 1105 Author: Omid Menjivar PT Service: (none) Author Type: Physical Therapist Filed: 10/29/15 1823 Date of Service: 10/29/15 1105 Status: Signed Bisque Brusher: Omid Menjivar PT (Physical Therapist) 10/29/15 1105 PT Last Visit PT Received On 10/29/15 Reason for Treatment Deconditioning Requires PT Follow Up Yes Follow up PT Only? Yes Assistance Required 1 person Precautions Other Precautions fall risk Other Comments Comments pt. supine in bed and agreeable to PT. pt. ambulated 150' with SPC, as pt. fatig ues he starts to have some lateral sway. pt. seated in room after ambulation. pt requestin g exercises to do when therapist not there, gave pt. supine, sitting and standing exercises and went over it by reading. This afternoon plan on doing exercises and cont. walking. Cognition Overall Cognitive Status WFL Orientation Level Oriented Bed Mobility Supine to Sit Min assist (1 LE OOB) Scooting Standby assist Transfers Sit to/from Stand Minimal assist (steadying/contact guard) Mobility Ambulation Assistance Minimal assist Maximal Ambulation Distance (feet) 150 Total Ambulation Distance (feet) 150 Distance limited by? Patient's ability Pattern Decreased jaylin;Right swing foot doesn't pass stance foot;Left swing foot doesn't pass stance foot Assistive Device Cane single point Modalities Modalities Other therapy Other Therapy gave pt. supine, sitting and standing exercises Activity Tolerance Activity Tolerance Patient limited by fatigue Nurse Made Aware yes Safety Devices Safety Devices in Place Yes Type of Devices 1:1 sitter maintained Restraints Initially in Place No Plan Treatment/Interventions Continue per Primary PT POC Progress Progressing toward goals PT Frequency 5-7x/wk;Twice a day;Once per day Recommendation Recommendations Defer Chris Dinh DO - 10/29/2015 9:42 AM PDTFormatting of this note might be different from the gregory del angel. Progress Notes by Chris Swann DO at 10/29/1542 Author: Chris Swann DO Service: (none) Author Type: Physician Filed: 10/29/15 1034 Date of Service: 10/29/1542 Status: Signed Bisque Brusher: Chris Swann DO (Physician) [facility] Service: Infectious Disease Progress Note Hospital Day: LOS: 28 days Post-Op Day: * No surgery found * SUBJECTIVE Patient Summary: CC: Fever, chest pain and altered mental status From [employer] admission note on 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 male with significant history of tobacco and drug abuse using daily heroin and methamphetamine, also on Suboxone. He initially presented to [facility] for progressive weakness, lethargy, and ge neralized pain (mostly his chest, neck, back, knees, ankles and toes) for the past 7 days. H e noticed that his ankles and right knee were swollen but not warm or erythematous. Accordin g to his girlfriend, he has been feeling sick and febrile for the past week with poor PO int elisha. Yesterday, she noticed that he seemed like he was hallucinating and talking to himself. He was very weak today that she had to assist him to get into the car to go the the ED. Exam at OSH was significant for point tenderness at the area of the cervical spine and posi tive Kernig's sign. LP was performed to rule out meningitis. IV antibiotics started, ceftria xone 2 gm and vancomycin [address] head and C-spine x-ray performed, MRI attempted but patient decompensated and was intubated for respiratory failure and airway protection. Significant labs: Na 114 (1435 hrs), BUN 81, Crea 2.48, WBC 19.9, Hb 11.6, Plt 51, Tbili 3. 6, AST 188, ALT 155, LA 1.7. CSF: clear, colorless, WBC 0, RBC 3. Protein 31. Glucose 50. Culture with no growth to d ate Blood cultures are reported to be growing GPCs at [facility] Transferred to [facility] for further care. MRI of brain and spine carried out with limited findi ngs due to non-contrast study. Evaluated by Nephrology, acute renal failure attributed to hemodynamics. Evaluated by Dr. Bhardwaj from orthopedics: Does not think patient has ankle septic joint and does not recomme nd surgical intervention. Echocardiogram showed moderate size mobile vegetation attached to the septal tricuspid valv e leaflet, moderate tricuspid regurgitation, moderate pulmonary hypertension with mildly enl arged right ventricle. Evaluated by CTS, surgery not recommended On 10/01, extubated On 10/02, he was transferred out of the ICU. On 10/04, patient had worsening mental status and also became tachypneic. He became more hy ponatremic with worsening renal function. Bilateral moderate sized pleural effusions were n oted on chest CT scan. Bedside ultrasound with bilateral pleural effusion, R>L. Left minimal and without echogenic ity suggestive of infectious pleural effusion. Left effusion is moderate with fibrin strands concerning for complicated/infectious pleural effusion. Right pig tail chest tube placed wi th purulent drainage. Head CT scan negative On 10/05, started on hemodialysis On October 08, left chest tube was placed. Reintubated on October 11. On 7/, patient was febrile to 101.4F. Blood cultures were sent. On 10/18, echocardiogram showed possible mobile vegetation at the posterior mitral valve leaf let along with known tricuspid valve vegetation. Right IJ hemodialysis catheter was placed. PICC was discontinued. He complained of abdominal pain and tenderness; CT scan was done salomon t showed mid to distal ileum and right colitis. On 10/19, transesophageal echocardiogram reported as showing no mitral vegetation with large, mobile vegetation at the tricuspid valve and severe tricuspid regurgitation. CT surgery ree valuated the patient; proceeding with medical management. Kidney biopsy done. CC: Endocarditis Chart reviewed: No new events. Subjective The patient reports that he feels better. He is breathing without difficulty, denies cough today. No nausea or headaches. ROS No fever, chills sweats. No nausea, vomiting or diarrhea. No rashes or pruritis. No oral pa in. Scheduled Medications clonazePAM 1 mg Oral TID fentaNYL 1 patch Transdermal Q72H Magnesium 500 mg Oral BID metoprolol 50 mg Oral BID nafcillin 2 g Intravenous Q4H potassium chloride 40 mEq Oral BID WC [START ON 10/30/2015] QUEtiapine 150 mg Oral QAM QUEtiapine 150 mg Oral QPM QUEtiapine 50 mg Oral Once sodium chloride 10 mL Intravenous 2 times per day Continuous Infusions PRN Medications acetaminophen, albuterol, aluminum-magnesium hydroxide-simethicone, benztropine mesylate, d eiqgmvwngAXMUZ-ltbtqj-vgtcjlqew oral solution, haloperidol lactate, lip moisturizer, LORazep am, morphine OR morphine OR morphine, ondansetron OR ondansetron, promethazine, simethicone, sodium chloride, sodium chloride, sodium chloride, sodium chloride OBJECTIVE Vital Signs: BP 128/91 mmHg | Pulse 127 | Temp(Src) 97.7 F (36.5 C) (Oral) | Resp 24 | Ht 1.702 m (5 ' 7") | Wt 63.7 kg (140 lb 6.9 oz) | BMI 21.99 kg/m2 | SpO2 96% Temp: [97.3 F (36.3 C)-99.2 F (37.3 C)] 97.7 F (36.5 C) (10/28 0740) BP: (120-138)/(88-93) 128/91 mmHg (10/29 739) Heart Rate: [107-128] 127 (10/29 739) Resp: [20-28] 24 (10/29 739) SpO2: [96 %-100 %] 96 % (10/29 739) Physical Exam Exam: Const: Vitals reviewed. No acute distress Skin: No edema. All previous skin lesions are crusting over, mostly ecchymoses and areas of dry peeling skin at this point. Right chest tunneled hemodialysis catheter site unremarkable ENT: No thrush. Lungs: CTAB, no rales or wheezes Heart: RRR, no murmur Abd: soft, NT, + bowel sounds DATA CBC: Lab Results Component Value Date WBC 10.91 10/29/2015 RBC 2.93* 10/29/2015 HGB 8.6* 10/29/2015 HCT 25.6* 10/29/2015 MCV 87.4 10/29/2015 MCH 29.4 10/29/2015 MCHC 33.6 10/29/2015 RDW 48.1 10/29/2015 PLT 450* 10/29/2015 MPV 6.9 10/29/2015 DIFFTYPE MANUAL 10/29/2015 WBC: Lab Results Component Value Date WBC 10.91 10/29/2015 NEUTABSMAN 8.95* 10/29/2015 NEUTROABS 9.55* 10/28/2015 NEUTROMAN 82 10/29/2015 LYMPHOABS 0.65* 10/29/2015 LYMPHOMAN 6 10/29/2015 LYMPHSABS 1.55 10/28/2015 LYMPHOPCT 12.39 10/28/2015 MONOABSMAN 0.76 10/29/2015 MONOMAN 7 10/29/2015 MONOPCT 7.33 10/28/2015 EOSINOABS 0.55* 10/29/2015 EOSINOMAN 5 10/29/2015 EOSABS 0.36 10/28/2015 EOSPCT 2.89 10/28/2015 BASOSABS 0.11* 10/28/2015 BASOPCT 0.89 10/28/2015 PLTEST ADEQUATE 10/18/2015 BANDSPCT 2 10/17/2015 METAABS 0.26* 10/13/2015 METAPCT 1 10/13/2015 MYELOABS 0.17* 10/09/2015 MYELOPCT 1 10/09/2015 COMDIFF SLIDE SCANNED, AGREES WITH AUTOMATED RESULTS. 10/18/2015 CMP: Lab Results Component Value Date NA 139 10/29/2015 K 3.4* 10/29/2015 CL 99 10/29/2015 CO2 31 10/29/2015 ANIONGAP 12 10/29/2015 GLUF 85 10/29/2015 BUN 15 10/29/2015 CREATININE 1.1 10/29/2015 BCR 14 10/29/2015 CA 8.2* 10/29/2015 PROT 5.8* 10/22/2015 ALB 1.2* 10/22/2015 GLOB 4.6 10/19/2015 BILITOT 1.5 10/22/2015 ALP 67 10/22/2015 AST 22 10/22/2015 ALT 18 10/22/2015 EGFR >60 10/29/2015 Microbiology data: 10/13 C. difficile PCR negative 10/09 C. difficile negative 10/11 HSV oral culture negative 10/05 pleural fluid culture negative 09/30 tracheal aspirate culture grew MSSA 10/17 blood cultures with no growth to date 09/30 blood cultures with no growth 10/18 catheter tip culture with no growth to date PROBLEM LIST Principal Problem: Sepsis (HCC) Active Problems: Hyposmolality and/or hyponatremia MARCEL (acute kidney injury) (HCC) Leucocytosis Thrombocytopenia (HCC) Toxic metabolic encephalopathy Acute respiratory failure with hypoxia (HCC) Heroin abuse Methamphetamine abuse Tobacco abuse Acute septic pulmonary embolism (HCC) Acute infective endocarditis Moderate protein-calorie malnutrition (HCC) Hallucination, visual Severe protein-calorie malnutrition (HCC) ASSESSMENT & PLAN MSSA sepsis, tricuspid valve endocarditis -Patient has MSSA bacteremia, tricuspid valve endocarditis with septic pulmonary emboli re lated to IV drug use -Neck pain and back pain improved; noncontrast MRI of spine and brain on presentation show s no evidence of infection -No evidence of septic arthritis; evaluated by orthopedics -Blood cultures on admission here have no growth. -CT scan performed on October 08 confirmed continued pleural effusion on the left, chest tube placed and d/c'd. CXR shows stable findings. -On 10/17, he was febrile so blood cultures repeated on 10/17 with no growth to date. TTE s howed tricuspid valve vegetation and a new mitral valve vegetation. Transesophageal echocard iogram showed no MV vegetation; Dr. Arias, CTS recommends to continue medical management. Right upper extremity PICC d/c'd on 10/18, catheter tip culture with no growth. Right IJ hemo dialysis catheter replaced; has tunneled HD cath placed on 10/20. New PICC placed on 10/20 -continue IV nafcillin, day #28 of 42. -Waxing and waning leukocytosis noted, but afebrile and clinically improving. Acute hypoxemic respiratory failure -improved Hallucinations Not likely to be secondary to nafcillin, despite maximal dosing. Appears to be better tod ay, will monitor. MARCEL -No adjustment needed for nafcillin. On dialysis. Renal biopsy done on 10/19, results pendi ng Abnormal LFTs -Resolved. Petechial/purpuric rash -Suspected ecthyma. Improving. Skin care. IV drug use -Not a candidate for outpatient IV antibiotics. HIV negative. Disposition: Anticipate remaining and Hospital for the final 2 weeks of therapy. ID service will follow at a distance, and we will check an once or twice per week. Please call sooner with any urgent questions. Dr. Villatoro will assume Infectious Diseases followup on Monday10/30/15. Code Status: Full Code CHRIS SWANN DO 10/29/2015 onversion Transaction , Provider Unknown - 10/28/2015 6:56 PM PDT Nurse Progress Note by Courtney Mosquera RN at 10/28/151855 Author: Courtney Mosquera RN Service: (none) Author Type: Registered Nurse Filed: 10/28/151858 Date of Service: 10/28/151855 Status: Addendum Bisque Brusher: Courtney Mosquera RN (Registered Nurse) Related Notes: Original Note by Courtney Mosquera RN (Registered Nurse) filed at 10/27 Pt had an episode of agitation and wanting to leave the hospital. Called [facility]. Provide r notified and ordered IV ativan and Haldol PRN. Pt returned to bed and given IM haldol and IV morphine. Pt is now calm and resting in bed. COURTNEY MOSQUERA RN onver patti Transaction, Provider Unknown - 10/28/2015 6:50 PM PDT Progress Notes by Travis Santillan at 10/28/151849 Author: Travis Santillan Service: (none) Author Type: Filed: 10/28/151857 Date of Service: 10/28/151849 Status: Signed Bisque Brusher: Travis Santillan () Responded to call from [facility] after a Code [facility] on pt. Pt agitated and walking in the chavez ou tside his room. Medical staff were trying to get pt to return to his room. After pt was in bed and medication given pt was able to talk to motorboat mechanic. Pt wants to go home. Pt said th at he has a bacterial infection of his heart and is taking antibiotics for the infection and has to do so for the next 4 weeks. Pt said his sister is coming to visit. When asked about his family, he said in a very low voice that he is the youngest and he has three older sist ers. Pt also said that he is from [facility]. Pt asked if [facility] about Mookie. We spent some ti me discussing Mookie and [employer]. Prayed with pt and he then said he wanted to sleep. Pt appeared to be much calmer when CHP left. Chaplain Kevin onver patti Transaction, Provider Unknown - 10/28/2015 5:30 PM PDT Nurse Progress Note by Courtney Mosquera RN at 10/28/151729 Author: Courtney Mosquera RN Service: (none) Author Type: Registered Nurse Filed: 10/28/151734 Date of Service: 10/28/151729 Status: Signed Bisque Brusher: Courtney Mosquera RN (Registered Nurse) Pt complained of back and leg pain. Pt given morphine. Pt remains afebrile. Pt given Haldol before being transferred, pt has been sleeping majority of the time. Ester LANGFORD onver patti Transaction, Provider Unknown - 10/28/2015 3:05 PM PDT Therapy Progress Note by Elisa Morel PT at 10/28/15 1505 Author: Elisa Morel PT Service: (none) Author Type: Physical Therapist Filed: 10/28/15 1513 Date of Service: 10/28/15 1505 Status: Signed Bisque Brusher: Elisa Morel PT (Physical Therapist) 10/28/15 1505 PT Last Visit PT Received On 10/28/15 Requires PT Follow Up Refused Other Comments Comments Pt given Haldol prior to transfer to acute floor. Pt sleeping upon entry, wakes e asily but delayed in responses. C/o burning pn throughout entire LLE and significant fatigu e. Politely declines therapy, agrees to sit up in chair w/RN for meals. Plan to f/u 10/28 f or ongoing mobility training. Balta Mark MD - 10/28/2015 2:05 PM PDTFormatting of this note might be different from the origi nal. Progress Notes by Balta Li MD at 10/28/15 1405 Author: Balta Li MD Service: (none) Author Type: Physician Filed: 10/28/15 1413 Date of Service: 10/28/15 1405 Status: Signed Bisque Brusher: Balta Li MD (Physician) [facility] Service: Hospitalist Progress Note Hospital Day: LOS: 27 days Consultants: Treatment Team: Consulting Physician: Chris Swann DO Consulting Physician: Gonzalez Bhardwaj MD Surgeon: Blanca Arias MD Consulting Physician: Femi Vaughan MD Consulting Physician: Rodolfo Salguero MD Admitting Provider: Carly Thomas DO The first problem in assessment is the principal problem. ASSESSMENT/ PLAN 30-year-old male with past medical history of IV drug use including heroin, methamphetamine , who presented with weakness, was found to have infective endocarditis involving the tricus pid valve. Status post intubation. Initially needing pressors also had presentation with sev ere hyponatremia and worsening renal failure. Later on transferred to the medical floor but had more decompensation and had to be transferred back to ICU with need of dialysis and rein tubation. Has had a long complicated hospital course. Please see ICU note from 10/26 for furth er details. He has needed a few units of blood transfusion, Precedex for anxiety and when ne cessary Haldol and on Seroquel for agitation. Currently being followed by ID, nephrology of dialysis. Has been seen by CT surgery and [facility] surgery. 1. MSSA infective endocarditis and septic pulmonary emboli: Appreciate help from ID, now elma howard with slow improving his petechial rash is improved. Continue with nafcillin IV for a t otal of 42 days will be inpatient to then and might need rehabilitation even after that. 2. Acute kidney injury, status post needle dialysis currently has a tunnel catheter, but on hold for dialysis, has reasonable urine output and kidney function. Follow-up with recommen dations from nephrology . 3. Tachycardia : Currently, metoprolol 25 twice a day blood pressure stable, will increase it to 50 twice a day . 4. Agitation, anxiety, withdrawal, currently on Seroquel 100 twice a day continue with same . Also on Haldol 5 every 6 and when necessary for agitation has a sitter. 5. Pain on fentanyl patch 50 mics and morphine IV when necessary continue with same Disposition: inpatient for now Code Status: Full Code Dictation and program proposals coordinator or software, Social Media Simplified, used which may contain error for similar s ounding words even after review. Personal communication requested for any clarification. SUBJECTIVE Events Overnight: *Had an episode of agitation this morning and received Haldol currently sleeping. OBJECTIVE General: poorlyrished. Psych: , currently somewhat sedated and sleepy . Calm, cooperative. Cardiovascular: tachycardic Regular rate and rhythm, Systolic murmurs, no thrills. Normal PMI. Respiratory: mild wheezing in bilateral rhonchi, breathing slightly labored. Gastrointestinal: Soft, non-tender, non-distended, positive bowel sounds. No HSM. Musculoskeletal: Mild edema in bilateral lower extremities. No joint swelling. Neck: No JVD, Trachea midline. Neurological: Non focal. Motor grossly intact. PROBLEM LIST Principal Problem: Sepsis (HCC) Active Problems: Hyposmolality and/or hyponatremia MARCEL (acute kidney injury) (HCC) Leucocytosis Thrombocytopenia (HCC) Toxic metabolic encephalopathy Acute respiratory failure with hypoxia (HCC) Heroin abuse Methamphetamine abuse Tobacco abuse Acute septic pulmonary embolism (HCC) Acute infective endocarditis Moderate protein-calorie malnutrition (HCC) Hallucination, visual Severe protein-calorie malnutrition (HCC) PMH Past Medical History Diagnosis Date Illicit drug use, continuous HOME MEDICATIONS Prior to Admission medications Not on File DATA Vital Signs: BP 124/90 mmHg | Pulse 123 | Temp(Src) 98.2 F (36.8 C) (Axillary) | Resp 24 | Ht 1.702 m (5' 7") | Wt 63.7 kg (140 lb 6.9 oz) | BMI 21.99 kg/m2 | SpO2 97% Filed Vitals: 10/28/15 0900 10/28/15 1000 10/28/15 1236 10/28/15 1317 BP: 124/90 Pulse: 124 107 128 123 Temp: 97.9 F (36.6 C) 98.2 F (36.8 C) TempSrc: Oral Axillary Resp: 22 24 Height: Weight: SpO2: 97% Intake/Output Summary (Last 24 hours) at 10/28/15 1405 Last data filed at 10/28/15 0636 Gross per 24 hour Intake 1349.9 ml Output 975 ml Net 374.9 ml CBC: Lab Results Component Value Date WBC 12.48* 10/28/2015 RBC 2.98* 10/28/2015 HGB 8.6* 10/28/2015 HCT 25.9* 10/28/2015 MCV 86.7 10/28/2015 MCH 28.9 10/28/2015 MCHC 33.3 10/28/2015 RDW 47.7 10/28/2015 PLT 508* 10/28/2015 MPV 6.4 10/28/2015 DIFFTYPE AUTOMATED 10/28/2015 CMP: Lab Results Component Value Date NA 137 10/28/2015 K 3.4* 10/28/2015 CL 98* 10/28/2015 CO2 32 10/28/2015 ANIONGAP 10 10/28/2015 GLUF 91 10/28/2015 BUN 21 10/28/2015 CREATININE 1.3 10/28/2015 BCR 16 10/28/2015 CA 7.8* 10/28/2015 PROT 5.8* 10/22/2015 ALB 1.2* 10/22/2015 GLOB 4.6 10/19/2015 BILITOT 1.5 10/22/2015 ALP 67 10/22/2015 AST 22 10/22/2015 ALT 18 10/22/2015 EGFR >60 10/28/2015 Magnesium: Lab Results Component Value Date MG 1.9 10/28/2015 Phosphorus: Lab Results Component Value Date PHOS 4.0 10/28/2015 PT/INR: Lab Results Component Value Date PROTIME DUPLICATE ORDER 10/19/2015 INR 1.1 10/19/2015 PTT: Lab Results Component Value Date APTT 27 10/19/2015 [APTT Imaging @IMAGES@ Scheduled Medications clonazePAM 1 mg Oral BID fentaNYL 1 patch Transdermal Q72H metoprolol 50 mg Oral BID nafcillin 2 g Intravenous Q4H QUEtiapine 100 mg Oral QAM QUEtiapine 100 mg Oral QPM sodium chloride 10 mL Intravenous 2 times per day Continuous Infusions PRN Medications acetaminophen, albuterol, aluminum-magnesium hydroxide-simethicone, benztropine mesylate, d sgruvzklfHTNOS-xydalf-szkzgkjlh oral solution, haloperidol lactate, lip moisturizer, morphin e OR morphine OR morphine, ondansetron OR ondansetron, promethazine, simethicone , sodium chloride, sodium chloride, sodium chloride, sodium chloride Balta Li MD 10/28/20152:05 PM onversion Transaction, Provider Unknown - 10/28/2015 10:36 AM PDTFormatting of this note might be different from e original. Nurse Progress Note by Fatou Sutherland RN at 10/28/15 1036 Author: Fatou Sutherland RN Service: (none) Author Type: Registered Nurse Filed: 10/28/15 1039 Date of Service: 10/28/15 1036 Status: Signed Bisque Brusher: Fatou Sutherland RN (Registered Nurse) Pt is uncooperative and wanting to leave AMA. Pt has been educated on the necessity of care , and advised against leaving. has been consulted and an order for haldol has been put in . Pt is now resting peacefully and I have held the medication until necessary Adarsh Mackey MD - 10/28/2015 8:31 AM PDT Progress Notes by Adarsh Crews MD at 10/28/15830 Author: Adarsh Crews MD Service: Nephrology Author Type: Physician Filed: 10/28/15840 Date of Service: 10/28/15830 Status: Signed Bisque Brusher: Adarsh Crews MD (Physician) [facility] Service: Nephrology Progress Note Hospital Day: LOS: 27 days Post-Op Day: * No surgery found * SUBJECTIVE Patient Summary: Reviewed medical records expensively. The patient is a 30 y.o. male with significant history of tobacco and drug abuse using daily heroin and methamphetamine, also on Suboxone. He initially presented to [facility] for progressive weaknes s, lethargy, and generalized pain for the past 7 days. He noticed that his ankles and right knee were swollen but not warm or erythematous. According to his girlfriend, he has been fee ling sick and febrile for the past week with poor oral intake. LP was performed to rule out meningitis. IV antibiotics started, ceftriaxone 2 gm and vancomycin [address] head and C-spine x-ray performed, patient decompensated and was intubated for respiratory failure and airway protection and admitted to the ICU. Significant labs on initial presentation : Na 114 (1435 hrs), BUN 81, Crea 2.48, Over next 12-24 hrs, his sodium abruptly improved to a peak of126 by 6 AM on 10/01, so c ounter measures were started to avoid over correction. Patient received DDAVP X2 X 2 MCG AT 4 AND 8 AM ON 10/01 and is on D5W AT 200 ML/HR. He has never been hospitalized because of low sodium. He has never been symptomatic because of low sodium. There are no herbal preparation intake; he does not have hx of liver cirrhos is. He does not have hx of CHF, hypothyroidism or adrenal insufficiency.There is no hx of ch ronic diarrhea and no N/V. Events Overnight: Doing fairly well. Breathing well. Stable O2 sat. Has been off dial ysis for a while now and has maintained good UO. Reviewed labs and medical records. Note imp roving azotemia. Off Furosemide. RN said much of his UO yesterday were not charted. Scheduled Medications clonazePAM 1 mg Oral BID fentaNYL 1 patch Transdermal Q72H metoprolol 25 mg Oral BID nafcillin 2 g Intravenous Q4H QUEtiapine 100 mg Oral QAM QUEtiapine 100 mg Oral QPM sodium chloride 10 mL Intravenous 2 times per day Continuous Infusions PRN Medications acetaminophen, albuterol, aluminum-magnesium hydroxide-simethicone, benztropine mesylate, d oqevqiqamHBCFD-xzmrcj-bxyxagohp oral solution, lip moisturizer, magnesium sulfate OR mag nesium sulfate OR magnesium sulfate, ondansetron OR ondansetron, phosphorus OR s odium phosphate IVPB 15 mmol OR sodium phosphate IVPB 30 mmol, potassium chloride OR potassium chloride OR potassium chloride, promethazine, simethicone, sodium chloride, s odium chloride, sodium chloride, sodium chloride OBJECTIVE Vital Signs: BP 132/94 mmHg | Pulse 126 | Temp(Src) 98.7 F (37.1 C) (Oral) | Resp 24 | Ht 1.702 m (5 ' 7") | Wt 63.7 kg (140 lb 6.9 oz) | BMI 21.99 kg/m2 | SpO2 98% Temp: [97.8 F (36.6 C)-99.3 F (37.4 C)] 98.7 F (37.1 C) (10/27 726) BP: (119-140)/(77-101) 132/94 mmHg (10/27 726) Heart Rate: [113-128] 126 (10/27 726) Resp: [22-26] 24 (10/27 726) SpO2: [94 %-98 %] 98 % (10/27 726) Weight: [63.7 kg (140 lb 6.9 oz)] 63.7 kg (140 lb 6.9 oz) (10/28 635) Intake/Output Summary (Last 24 hours) at 10/28/15830 Last data filed at 10/28/15635 Gross per 24 hour Intake 1349.9 ml Output 1126 ml Net 223.9 ml Physical Exam Constitutional: He appears well-developed and well-nourished. HENT: Head: Normocephalic and atraumatic. Neck: Neck supple. No JVD present. Right IJ tunned HD CVC in place. Cardiovascular: Regular rhythm, normal heart sounds and intact distal pulses. Exam reveals no gallop and no friction rub. No murmur heard. Tachycardic with rate in the 110-130 range. Pulmonary/Chest: He has no wheezes. Bilateral rhonchi. Diminished AE at the bases bilaterally. Abdomina/Gl: Soft. Bowel sounds are normal. He exhibits no mass. There is no guarding. Musculoskeletal: He exhibits no edema or tenderness. Lymphadenopathy: He has no cervical adenopathy. Neurological: Alert and oriented to person and place. Skin: Skin is warm and dry. No rash noted. Psychiatric: He has a normal mood and affect. Nursing note and vitals reviewed. DATA CBC: Lab Results Component Value Date WBC 12.48* 10/28/2015 RBC 2.98* 10/28/2015 HGB 8.6* 10/28/2015 HCT 25.9* 10/28/2015 MCV 86.7 10/28/2015 MCH 28.9 10/28/2015 MCHC 33.3 10/28/2015 RDW 47.7 10/28/2015 PLT 508* 10/28/2015 MPV 6.4 10/28/2015 DIFFTYPE AUTOMATED 10/28/2015 WBC: Lab Results Component Value Date WBC 12.48* 10/28/2015 NEUTABSMAN 10.38* 10/17/2015 NEUTROABS 9.55* 10/28/2015 NEUTROMAN 86 10/17/2015 LYMPHOABS 0.84* 10/17/2015 LYMPHOMAN 7 10/17/2015 LYMPHSABS 1.55 10/28/2015 LYMPHOPCT 12.39 10/28/2015 MONOABSMAN 0.48 10/17/2015 MONOMAN 4 10/17/2015 MONOPCT 7.33 10/28/2015 EOSINOABS 0.12 10/17/2015 EOSINOMAN 1 10/17/2015 EOSABS 0.36 10/28/2015 EOSPCT 2.89 10/28/2015 BASOSABS 0.11* 10/28/2015 BASOPCT 0.89 10/28/2015 PLTEST ADEQUATE 10/18/2015 BANDSPCT 2 10/17/2015 METAABS 0.26* 10/13/2015 METAPCT 1 10/13/2015 MYELOABS 0.17* 10/09/2015 MYELOPCT 1 10/09/2015 COMDIFF SLIDE SCANNED, AGREES WITH AUTOMATED RESULTS. 10/18/2015 CMP: Lab Results Component Value Date NA 137 10/28/2015 K 3.4* 10/28/2015 CL 98* 10/28/2015 CO2 32 10/28/2015 ANIONGAP 10 10/28/2015 GLUF 91 10/28/2015 BUN 21 10/28/2015 CREATININE 1.3 10/28/2015 BCR 16 10/28/2015 CA 7.8* 10/28/2015 PROT 5.8* 10/22/2015 ALB 1.2* 10/22/2015 GLOB 4.6 10/19/2015 BILITOT 1.5 10/22/2015 ALP 67 10/22/2015 AST 22 10/22/2015 ALT 18 10/22/2015 EGFR >60 10/28/2015 Magnesium: Lab Results Component Value Date MG 1.9 10/28/2015 Phosphorus: Lab Results Component Value Date PHOS 4.0 10/28/2015 Medical Record Review: Reviewed extensively for this encounter. RADIOLOGIC: CXR as of 10/25/2015: FINDINGS: Normal cardiac size. Right internal jugular approach double lumen vascular catheter in situ with tip projecting over expected location of superior cavoatrial junction. Left-sided PICC line in situ with tip projecting over expected location of right atrium. Improving diffuse interstitial opacities in both lungs. Bilateral patchy interstitial and airspace opacities i n both lungs, right greater than left. Small bilateral pleural effusions. No pneumothorax. IMPRESSION: 1. Small bilateral pleural effusions. Improving pulmonary edema. 2. Multifocal patchy interstitial and airspace opacities in both lungs consistent with kn own septic emboli and multifocal pneumonia. 3. PICC line in situ with tip projecting over expected location of right atrium. 4. Additional findings as detailed above. LEM LIST Principal Problem: Sepsis (HCC) Active Problems: Hyposmolality and/or hyponatremia MARCEL (acute kidney injury) (HCC) Leucocytosis Thrombocytopenia (HCC) Toxic metabolic encephalopathy Acute respiratory failure with hypoxia (HCC) Heroin abuse Methamphetamine abuse Tobacco abuse Acute septic pulmonary embolism (HCC) Acute infective endocarditis Moderate protein-calorie malnutrition (HCC) Hallucination, visual Severe protein-calorie malnutrition (HCC) @MALDXPLAN@ ASSESSMENT & PLAN 1. MARCEL/ ARF: note improving azotemia, now with serum creatinine 1.3. S/p kidney biopsy that showed ATN. - Off Furosemide since yesterday. Monitor UO closely. May restart low dose Furosemide 20-40 mg BID if needful. - Daily weights and strict I/O's. Okay with cautious IVF likely with NS. - Adjust dose of medications including antibiotics to estimated GFR. - Avoid NSAIDs (including FRASER 2 inhibitors) and iodine contrast agents. - Avoid use of Magnesium and aluminum containing antacids. - Avoid use of Magnesium or phosphorus containing laxatives. 2. Lytes/bone: - Na+: Improved and stable. Will maintain with appropriate dialysate Na+ bath to maintain s seth Na+ level WAL. - K+: Low normal. Will be replaced cautiously and rechecked. - PO4: Stable. Will monitor closely. - Bicarb: Stable. 3. BP control: BP controlisacceptable. Avoid further hypotension. 4. Anemia mangement: Hb is currently low but improving. HGB 8.6. - Monitor closely. May give Epogen 76914 units sq weekly to keep HGB between 10-12. 5. Hypoalbuminemia: Poor nutrition noted. Nutritional assessment needed. Case and care plan discussed with the intensive care team. Will sign off nephrology consult and f/u today. Please re-consult us if needed at a later date. Disposition: Possible to a care facility for continued antibiotic treatment. Code Status: Full Code ADARSH CREWS MD 10/28/2015 Chris Dinh DO - 10/28/2015 6:55 AM PDT Progress Notes by Chris Swann DO at 10/28/15654 Author: Chris Swann DO Service: (none) Author Type: Physician Filed: 10/28/15831 Date of Service: 10/28/15654 Status: Signed Bisque Brusher: Chris Swann DO (Physician) [facility] Service: Infectious Disease Progress Note Hospital Day: LOS: 27 days Post-Op Day: * No surgery found * SUBJECTIVE Patient Summary: CC: Fever, chest pain and altered mental status From [employer] admission note on 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 male with significant history of tobacco and drug abuse using daily heroin and methamphetamine, also on Suboxone. He initially presented to [facility] for progressive weakness, lethargy, and ge neralized pain (mostly his chest, neck, back, knees, ankles and toes) for the past 7 days. H e noticed that his ankles and right knee were swollen but not warm or erythematous. Nessa g to his girlfriend, he has been feeling sick and febrile for the past week with poor PO int elisha. Yesterday, she noticed that he seemed like he was hallucinating and talking to himself. He was very weak today that she had to assist him to get into the car to go the the ED. Exam at OSH was significant for point tenderness at the area of the cervical spine and posi tive Kernig's sign. LP was performed to rule out meningitis. IV antibiotics started, ceftria xone 2 gm and vancomycin [address] head and C-spine x-ray performed, MRI attempted but patient decompensated and was intubated for respiratory failure and airway protection. Significant labs: Na 114 (1435 hrs), BUN 81, Crea 2.48, WBC 19.9, Hb 11.6, Plt 51, Tbili 3. 6, AST 188, ALT 155, LA 1.7. CSF: clear, colorless, WBC 0, RBC 3. Protein 31. Glucose 50. Culture with no growth to d ate Blood cultures are reported to be growing GPCs at [facility] Transferred to [facility] for further care. MRI of brain and spine carried out with limited findi ngs due to non-contrast study. Evaluated by Nephrology, acute renal failure attributed to hemodynamics. Evaluated by Dr. Bhardwaj from orthopedics: Does not think patient has ankle septic joint and does not recomme nd surgical intervention. Echocardiogram showed moderate size mobile vegetation attached to the septal tricuspid valv e leaflet, moderate tricuspid regurgitation, moderate pulmonary hypertension with mildly enl arged right ventricle. Evaluated by CTS, surgery not recommended On 10/01, extubated On 10/02, he was transferred out of the ICU. On 10/04, patient had worsening mental status and also became tachypneic. He became more hy ponatremic with worsening renal function. Bilateral moderate sized pleural effusions were n oted on chest CT scan. Bedside ultrasound with bilateral pleural effusion, R>L. Left minimal and without echogenic ity suggestive of infectious pleural effusion. Left effusion is moderate with fibrin strands concerning for complicated/infectious pleural effusion. Right pig tail chest tube placed wi th purulent drainage. Head CT scan negative On 10/05, started on hemodialysis On October 08, left chest tube was placed. Reintubated on October 11. On 10/16-, patient was febrile to 101.4F. Blood cultures were sent. On 10/18, echocardiogram showed possible mobile vegetation at the posterior mitral valve leaf let along with known tricuspid valve vegetation. Right IJ hemodialysis catheter was placed. PICC was discontinued. He complained of abdominal pain and tenderness; CT scan was done salomon t showed mid to distal ileum and right colitis. On 10/19, transesophageal echocardiogram reported as showing no mitral vegetation with large, mobile vegetation at the tricuspid valve and severe tricuspid regurgitation. CT surgery ree valuated the patient; proceeding with medical management. Kidney biopsy done. CC: Endocarditis Chart reviewed: No new events. Subjective The patient reports that he feels better. He is breathing without difficulty, denies cough today. No nausea or headaches. ROS No fever, chills sweats. No nausea, vomiting or diarrhea. No rashes or pruritis. No oral pa in. Scheduled Medications clonazePAM 1 mg Oral BID fentaNYL 1 patch Transdermal Q72H metoprolol 25 mg Oral BID nafcillin 2 g Intravenous Q4H QUEtiapine 100 mg Oral QAM QUEtiapine 100 mg Oral QPM sodium chloride 10 mL Intravenous 2 times per day Continuous Infusions PRN Medications acetaminophen, albuterol, aluminum-magnesium hydroxide-simethicone, benztropine mesylate, d tottgwwjqKBIPA-ybelum-cjcbdvmac oral solution, lip moisturizer, magnesium sulfate OR mag nesium sulfate OR magnesium sulfate, ondansetron OR ondansetron, phosphorus OR s odium phosphate IVPB 15 mmol OR sodium phosphate IVPB 30 mmol, potassium chloride OR potassium chloride OR potassium chloride, promethazine, simethicone, sodium chloride, s odium chloride, sodium chloride, sodium chloride OBJECTIVE Vital Signs: BP 123/77 mmHg | Pulse 125 | Temp(Src) 99.3 F (37.4 C) (Oral) | Resp 26 | Ht 1.702 m (5 ' 7") | Wt 63.7 kg (140 lb 6.9 oz) | BMI 21.99 kg/m2 | SpO2 95% Temp: [97.8 F (36.6 C)-99.3 F (37.4 C)] 99.3 F (37.4 C) (10/28 399) BP: (102-140)/(68-101) 123/77 mmHg (10/28 399) Heart Rate: [113-128] 125 (10/28 399) Resp: [22-26] 26 (10/28 399) SpO2: [92 %-98 %] 95 % (10/28 399) Weight: [63.7 kg (140 lb 6.9 oz)] 63.7 kg (140 lb 6.9 oz) (10/28 635) Physical Exam Exam: Const: Vitals reviewed. No acute distress Skin: No edema. All previous skin lesions are crusting over. Right chest tunneled hemodialysis catheter site unremarkable ENT: No thrush. Lungs: CTAB, no rales or wheezes Heart: RRR, no murmur Abd: soft, NT, + bowel sounds DATA CBC: Lab Results Component Value Date WBC 12.48* 10/28/2015 RBC 2.98* 10/28/2015 HGB 8.6* 10/28/2015 HCT 25.9* 10/28/2015 MCV 86.7 10/28/2015 MCH 28.9 10/28/2015 MCHC 33.3 10/28/2015 RDW 47.7 10/28/2015 PLT 508* 10/28/2015 MPV 6.4 10/28/2015 DIFFTYPE AUTOMATED 10/28/2015 WBC: Lab Results Component Value Date WBC 12.48* 10/28/2015 NEUTABSMAN 10.38* 10/17/2015 NEUTROABS 9.55* 10/28/2015 NEUTROMAN 86 10/17/2015 LYMPHOABS 0.84* 10/17/2015 LYMPHOMAN 7 10/17/2015 LYMPHSABS 1.55 10/28/2015 LYMPHOPCT 12.39 10/28/2015 MONOABSMAN 0.48 10/17/2015 MONOMAN 4 10/17/2015 MONOPCT 7.33 10/28/2015 EOSINOABS 0.12 10/17/2015 EOSINOMAN 1 10/17/2015 EOSABS 0.36 10/28/2015 EOSPCT 2.89 10/28/2015 BASOSABS 0.11* 10/28/2015 BASOPCT 0.89 10/28/2015 PLTEST ADEQUATE 10/18/2015 BANDSPCT 2 10/17/2015 METAABS 0.26* 10/13/2015 METAPCT 1 10/13/2015 MYELOABS 0.17* 10/09/2015 MYELOPCT 1 10/09/2015 COMDIFF SLIDE SCANNED, AGREES WITH AUTOMATED RESULTS. 10/18/2015 CMP: Lab Results Component Value Date NA 137 10/28/2015 K 3.4* 10/28/2015 CL 98* 10/28/2015 CO2 32 10/28/2015 ANIONGAP 10 10/28/2015 GLUF 91 10/28/2015 BUN 21 10/28/2015 CREATININE 1.3 10/28/2015 BCR 16 10/28/2015 CA 7.8* 10/28/2015 PROT 5.8* 10/22/2015 ALB 1.2* 10/22/2015 GLOB 4.6 10/19/2015 BILITOT 1.5 10/22/2015 ALP 67 10/22/2015 AST 22 10/22/2015 ALT 18 10/22/2015 EGFR >60 10/28/2015 Microbiology data: 10/13 C. difficile PCR negative 10/09 C. difficile negative 10/11 HSV oral culture negative 10/05 pleural fluid culture negative 09/30 tracheal aspirate culture grew MSSA 10/17 blood cultures with no growth to date 09/30 blood cultures with no growth 10/18 catheter tip culture with no growth to date PROBLEM LIST Principal Problem: Sepsis (HCC) Active Problems: Hyposmolality and/or hyponatremia MARCEL (acute kidney injury) (HCC) Leucocytosis Thrombocytopenia (HCC) Toxic metabolic encephalopathy Acute respiratory failure with hypoxia (HCC) Heroin abuse Methamphetamine abuse Tobacco abuse Acute septic pulmonary embolism (HCC) Acute infective endocarditis Moderate protein-calorie malnutrition (HCC) Hallucination, visual Severe protein-calorie malnutrition (HCC) ASSESSMENT & PLAN MSSA sepsis, tricuspid valve endocarditis -Patient has MSSA bacteremia, tricuspid valve endocarditis with septic pulmonary emboli re lated to IV drug use -Neck pain and back pain improved; noncontrast MRI of spine and brain on presentation show s no evidence of infection -No evidence of septic arthritis; evaluated by orthopedics -Blood cultures on admission here have no growth. -CT scan performed on October 08 confirmed continued pleural effusion on the left, chest tube placed and d/c'd. CXR shows stable findings. -On 10/17, he was febrile so blood cultures repeated on 10/17 with no growth to date. TTE s howed tricuspid valve vegetation and a new mitral valve vegetation. Transesophageal echocard iogram showed no MV vegetation; Dr. Arias, CTS recommends to continue medical management. Right upper extremity PICC d/c'd on 10/18, catheter tip culture with no growth. Right IJ hemo dialysis catheter replaced; has tunneled HD cath placed on 10/20. New PICC placed on 10/20 -continue IV nafcillin, day #27 of 42. -Waxing and waning leukocytosis noted, but afebrile and clinically improving. Acute hypoxemic respiratory failure -improved Hallucinations Not likely to be secondary to nafcillin, despite maximal dosing. Appears to be better tod ay, will monitor. MARCEL -No adjustment needed for nafcillin. On dialysis. Renal biopsy done on 10/19, results pendi ng Abnormal LFTs -Resolved. Petechial/purpuric rash -Suspected ecthyma. Improving. Skin care. IV drug use -Not a candidate for outpatient IV antibiotics. HIV negative. Code Status: Full Code CHRIS SWANN DO 10/28/2015 onversion Transaction , Provider Unknown - 10/28/2015 6:29 AM PDT Nurse Progress Note by Maureen Sigala RN at 10/28/15628 Author: Maureen Sigala RN Service: (none) Author Type: Registered Nurse Filed: 10/28/15631 Date of Service: 10/28/15628 Status: Signed Bisque Brusher: Maureen Sigala RN (Registered Nurse) Pt called nurse to room and stated that he had done something bad. Pt went on to explain th at during the night he removed his fentanyl patch from his upper left shoulder and chewed on it so that he could get a high. Pt very tearful and apologetic at this time. Fentanyl patch cannot be found at this time. Pt states that he did not swallow it and it is no longer in h is mouth. It cannot be found in his bed or on the floor. Sitter remains at bedside and state s that she did not see him doing this. MD notified. Maureen Espana RN Adarsh Mackey MD - 10/27/2015 8:21 AM PDT Progress Notes by Adarsh Crews MD at 10/27/15820 Author: Adarsh Crews MD Service: Nephrology Author Type: Physician Filed: 10/27/1549 Date of Service: 10/27/15820 Status: Signed Bisque Brusher: Adarsh Crews MD (Physician) [facility] Service: Nephrology Progress Note Hospital Day: LOS: 26 days Post-Op Day: * No surgery found * SUBJECTIVE Patient Summary: Reviewed medical records expensively. The patient is a 30 y.o. male with significant history of tobacco and drug abuse using daily heroin and methamphetamine, also on Suboxone. He initially presented to [facility] for progressive weaknes s, lethargy, and generalized pain for the past 7 days. He noticed that his ankles and right knee were swollen but not warm or erythematous. According to his girlfriend, he has been fee ling sick and febrile for the past week with poor oral intake. LP was performed to rule out meningitis. IV antibiotics started, ceftriaxone 2 gm and vancomycin [address] head and C-spine x-ray performed, patient decompensated and was intubated for respiratory failure and airway protection and admitted to the ICU. Significant labs on initial presentation : Na 114 (1435 hrs), BUN 81, Crea 2.48, Over next 12-24 hrs, his sodium abruptly improved to a peak of126 by 6 AM on 10/01, so c ounter measures were started to avoid over correction. Patient received DDAVP X2 X 2 MCG AT 4 AND 8 AM ON 10/01 and is on D5W AT 200 ML/HR. He has never been hospitalized because of low sodium. He has never been symptomatic because of low sodium. There are no herbal preparation intake; he does not have hx of liver cirrhos is. He does not have hx of CHF, hypothyroidism or adrenal insufficiency.There is no hx of ch ronic diarrhea and no N/V. Events Overnight: Has been having occasional manic/psychotic episodes lately, current ly responding well to Haldol. Seen by Dr. Salguero (psychiatry) yesterday. Has been off dialys is for a while now and has maintained good UO. Still on Furosemide 80mg TID. Reviewed labs a nd medical records. Note improving azotemia. Scheduled Medications clonazePAM 1 mg Oral BID fentaNYL 1 patch Transdermal Q72H furosemide 80 mg Intravenous BID heparin (porcine) 5000 unit/0.5mL 5,000 Units Subcutaneous 3 times per day metoprolol 25 mg Oral BID nafcillin 2 g Intravenous Q4H QUEtiapine 100 mg Oral QAM QUEtiapine 100 mg Oral QPM sodium chloride 10 mL Intravenous 2 times per day Continuous Infusions sodium chloride (IV) 15 mL/hr at 10/14/15 1547 PRN Medications acetaminophen, albumin human, albuterol, aluminum-magnesium hydroxide-simethicone, benztrop ine mesylate, fpkxiieeduQUXAC-ptjfzs-qbawsbwdq oral solution, haloperidol lactate, lip moist urizer, LORazepam, magnesium sulfate OR magnesium sulfate OR magnesium sulfate OR* * magnesium sulfate, ondansetron OR ondansetron, pancrelipase (Wna-Otol-Llcz)12,000 unit s, phosphorus OR sodium phosphate IVPB 10 mmol OR sodium phosphate IVPB 20 mmol, pot assium OR potassium OR potassium OR potassium chloride OR potassium chloride OR potassium chloride, promethazine, simethicone, sodium chloride, sodium chloride, sod ium chloride, sodium chloride, white petrolatum OBJECTIVE Vital Signs: BP 132/90 mmHg | Pulse 126 | Temp(Src) 98.7 F (37.1 C) (Oral) | Resp 24 | Ht 1.702 m (5 ' 7") | Wt 65.2 kg (143 lb 11.8 oz) | BMI 22.51 kg/m2 | SpO2 94% Temp: [97.9 F (36.6 C)-99.7 F (37.6 C)] 98.7 F (37.1 C) (10/27 799) BP: (102-151)/(68-112) 132/90 mmHg (10/27 799) Heart Rate: [110-146] 126 (10/27 799) Resp: [24-38] 24 (10/27 799) SpO2: [90 %-100 %] 94 % (10/27 799) Intake/Output Summary (Last 24 hours) at 10/27/15 08 Last data filed at 10/27/15 0534 Gross per 24 hour Intake 1718 ml Output 4000 ml Net -2282 ml Physical Exam Constitutional: He appears well-developed and well-nourished. HENT: Head: Normocephalic and atraumatic. Neck: Neck supple. No JVD present. Right IJ tunned HD CVC in place. Cardiovascular: Regular rhythm, normal heart sounds and intact distal pulses. Exam reveals no gallop and no friction rub. No murmur heard. Tachycardic with rate in the 120-130 range. Pulmonary/Chest: He has no wheezes. Bilateral rhonchi. Diminished AE at the bases bilaterally. Abdomina/Gl: Soft. Bowel sounds are normal. He exhibits no mass. There is no guarding. Musculoskeletal: He exhibits no edema or tenderness. Lymphadenopathy: He has no cervical adenopathy. Neurological: Alert and oriented to person only. Skin: Skin is warm and dry. No rash noted. Psychiatric: He has a normal mood and affect. Nursing note and vitals reviewed. DATA CBC: Lab Results Component Value Date WBC 10.91 10/27/2015 RBC 2.87* 10/27/2015 HGB 8.4* 10/27/2015 HCT 25.0* 10/27/2015 MCV 86.9 10/27/2015 MCH 29.1 10/27/2015 MCHC 33.5 10/27/2015 RDW 49.0 10/27/2015 PLT 487* 10/27/2015 MPV 6.6 10/27/2015 DIFFTYPE AUTOMATED 10/27/2015 WBC: Lab Results Component Value Date WBC 10.91 10/27/2015 NEUTABSMAN 10.38* 10/17/2015 NEUTROABS 8.42* 10/27/2015 NEUTROMAN 86 10/17/2015 LYMPHOABS 0.84* 10/17/2015 LYMPHOMAN 7 10/17/2015 LYMPHSABS 1.36 10/27/2015 LYMPHOPCT 12.50 10/27/2015 MONOABSMAN 0.48 10/17/2015 MONOMAN 4 10/17/2015 MONOPCT 6.53 10/27/2015 EOSINOABS 0.12 10/17/2015 EOSINOMAN 1 10/17/2015 EOSABS 0.28 10/27/2015 EOSPCT 2.57 10/27/2015 BASOSABS 0.13* 10/27/2015 BASOPCT 1.19 10/27/2015 PLTEST ADEQUATE 10/18/2015 BANDSPCT 2 10/17/2015 METAABS 0.26* 10/13/2015 METAPCT 1 10/13/2015 MYELOABS 0.17* 10/09/2015 MYELOPCT 1 10/09/2015 COMDIFF SLIDE SCANNED, AGREES WITH AUTOMATED RESULTS. 10/18/2015 CMP: Lab Results Component Value Date NA 136 10/27/2015 K 3.5 10/27/2015 CL 96* 10/27/2015 CO2 32 10/27/2015 ANIONGAP 11 10/27/2015 GLUF 93 10/27/2015 BUN 23 10/27/2015 CREATININE 1.5* 10/27/2015 BCR 15 10/27/2015 CA 7.7* 10/27/2015 PROT 5.8* 10/22/2015 ALB 1.2* 10/22/2015 GLOB 4.6 10/19/2015 BILITOT 1.5 10/22/2015 ALP 67 10/22/2015 AST 22 10/22/2015 ALT 18 10/22/2015 EGFR 58* 10/27/2015 Magnesium: Lab Results Component Value Date MG 1.5* 10/27/2015 Phosphorus: Lab Results Component Value Date PHOS 4.7 10/27/2015 Medical Record Review: Reviewed extensively for this encounter. RADIOLOGIC: CXR as of 10/25/2015: FINDINGS: Normal cardiac size. Right internal jugular approach double lumen vascular catheter in situ with tip projecting over expected location of superior cavoatrial junction. Left-sided PICC line in situ with tip projecting over expected location of right atrium. Improving diffuse interstitial opacities in both lungs. Bilateral patchy interstitial and airspace opacities i n both lungs, right greater than left. Small bilateral pleural effusions. No pneumothorax. IMPRESSION: 1. Small bilateral pleural effusions. Improving pulmonary edema. 2. Multifocal patchy interstitial and airspace opacities in both lungs consistent with kn own septic emboli and multifocal pneumonia. 3. PICC line in situ with tip projecting over expected location of right atrium. 4. Additional findings as detailed above. LEM LIST Principal Problem: Sepsis (HCC) Active Problems: Hyposmolality and/or hyponatremia MARCEL (acute kidney injury) (HCC) Leucocytosis Thrombocytopenia (HCC) Toxic metabolic encephalopathy Acute respiratory failure with hypoxia (HCC) Heroin abuse Methamphetamine abuse Tobacco abuse Acute septic pulmonary embolism (HCC) Acute infective endocarditis Moderate protein-calorie malnutrition (HCC) Hallucination, visual Severe protein-calorie malnutrition (HCC) @MALDXPLAN@ ASSESSMENT & PLAN 1. MARCEL/ ARF: note improving azotemia, now with serum creatinine 1.5. S/p kidney biopsy that showed ATN. - Will d/c Furosemide. Monitor UO closely. May restart low dose Furosemide 20-40 mg BID if needful. - Renal diet with 2gm Na+, 2gm K+, 1gm Phos, 1.2g protein/Kg body weight per day; total ramiro ories 5633-5599 Kcal/day. - Daily weights and strict I/O's. Okay with cautious IVF likely with NS. - Adjust dose of medications including antibiotics to estimated GFR. - Avoid NSAIDs (including FRASER 2 inhibitors) and iodine contrast agents. - Avoid use of Magnesium and aluminum containing antacids. - Avoid use of Magnesium or phosphorus containing laxatives. 2. Lytes/bone: - Na+: Improved and stable. Will maintain with appropriate dialysate Na+ bath to maintain s seth Na+ level WAL. - K+: Low normal. Will be replaced cautiously and rechecked. - PO4: Stable. Will monitor closely. - Bicarb: Stable. 3. BP control: BP controlisacceptable. Avoid further hypotension. 4. Anemia mangement: Hb is currently low at 8.4. - Will continue Epogen as needed to maintain HGB between 10-12g/dL. Will give Epogen 15686 units sq weekly. 5. Hypoalbuminemia: Poor nutrition noted. Nutritional assessment needed. Case and care plan discussed with the piercing artist and intensive care team. Disposition: Possible to a care facility for continued antibiotic treatment. Code Status: Full Code ADARSH CREWS MD 10/27/2015 hris Swann DO - 10/27/2015 6:55 AM PDT Progress Notes by Chris Swann DO at 10/27/15 0655 Author: Chris Swann DO Service: (none) Author Type: Physician Filed: 10/27/15 0758 Date of Service: 10/27/1555 Status: Signed Bisque Brusher: Chris Swann DO (Physician) [facility] Service: Infectious Disease Progress Note Hospital Day: LOS: 26 days Post-Op Day: * No surgery found * SUBJECTIVE Patient Summary: CC: Fever, chest pain and altered mental status From [employer] admission note on 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 male with significant history of tobacco and drug abuse using daily heroin and methamphetamine, also on Suboxone. He initially presented to [facility] for progressive weakness, lethargy, and ge neralized pain (mostly his chest, neck, back, knees, ankles and toes) for the past 7 days. H e noticed that his ankles and right knee were swollen but not warm or erythematous. Accordin g to his girlfriend, he has been feeling sick and febrile for the past week with poor PO int elisha. Yesterday, she noticed that he seemed like he was hallucinating and talking to himself. He was very weak today that she had to assist him to get into the car to go the the ED. Exam at OSH was significant for point tenderness at the area of the cervical spine and posi tive Kernig's sign. LP was performed to rule out meningitis. IV antibiotics started, ceftria xone 2 gm and vancomycin [address] head and C-spine x-ray performed, MRI attempted but patient decompensated and was intubated for respiratory failure and airway protection. Significant labs: Na 114 (1435 hrs), BUN 81, Crea 2.48, WBC 19.9, Hb 11.6, Plt 51, Tbili 3. 6, AST 188, ALT 155, LA 1.7. CSF: clear, colorless, WBC 0, RBC 3. Protein 31. Glucose 50. Culture with no growth to d ate Blood cultures are reported to be growing GPCs at [facility] Transferred to [facility] for further care. MRI of brain and spine carried out with limited findi ngs due to non-contrast study. Evaluated by Nephrology, acute renal failure attributed to hemodynamics. Evaluated by Dr. Bhardwaj from orthopedics: Does not think patient has ankle septic joint and does not recomme nd surgical intervention. Echocardiogram showed moderate size mobile vegetation attached to the septal tricuspid valv e leaflet, moderate tricuspid regurgitation, moderate pulmonary hypertension with mildly enl arged right ventricle. Evaluated by CTS, surgery not recommended On 10/01, extubated On 10/02, he was transferred out of the ICU. On 10/04, patient had worsening mental status and also became tachypneic. He became more hy ponatremic with worsening renal function. Bilateral moderate sized pleural effusions were n oted on chest CT scan. Bedside ultrasound with bilateral pleural effusion, R>L. Left minimal and without echogenic ity suggestive of infectious pleural effusion. Left effusion is moderate with fibrin strands concerning for complicated/infectious pleural effusion. Right pig tail chest tube placed wi th purulent drainage. Head CT scan negative On 10/05, started on hemodialysis On October 08, left chest tube was placed. Reintubated on October 11. On 10/16-, patient was febrile to 101.4F. Blood cultures were sent. On 10/18, echocardiogram showed possible mobile vegetation at the posterior mitral valve leaf let along with known tricuspid valve vegetation. Right IJ hemodialysis catheter was placed. PICC was discontinued. He complained of abdominal pain and tenderness; CT scan was done salomon t showed mid to distal ileum and right colitis. On 10/19, transesophageal echocardiogram reported as showing no mitral vegetation with large, mobile vegetation at the tricuspid valve and severe tricuspid regurgitation. CT surgery ree valuated the patient; proceeding with medical management. Kidney biopsy done. CC: Endocarditis Chart reviewed: No new events. Subjective The patient reports that he feels better. He is breathing without difficulty, occasionally has dry cough. No nausea, vomiting or abdominal pain. ROS No fever, chills sweats. No nausea, vomiting or diarrhea. No rashes or pruritis. No oral pa in. Scheduled Medications clonazePAM 1 mg Oral BID fentaNYL 1 patch Transdermal Q72H furosemide 80 mg Intravenous BID heparin (porcine) 5000 unit/0.5mL 5,000 Units Subcutaneous 3 times per day metoprolol 25 mg Oral BID nafcillin 2 g Intravenous Q4H QUEtiapine 100 mg Oral QAM QUEtiapine 100 mg Oral QPM sodium chloride 10 mL Intravenous 2 times per day Continuous Infusions sodium chloride (IV) 15 mL/hr at 10/14/15 1547 PRN Medications acetaminophen, albumin human, albuterol, aluminum-magnesium hydroxide-simethicone, benztrop ine mesylate, rpuokqtcfxQAVFW-gzcckn-hyyleriex oral solution, haloperidol lactate, lip moist urizer, LORazepam, magnesium sulfate OR magnesium sulfate OR magnesium sulfate OR* * magnesium sulfate, ondansetron OR ondansetron, pancrelipase (Vsl-Edgl-Oehh)12,000 unit s, phosphorus OR sodium phosphate IVPB 10 mmol OR sodium phosphate IVPB 20 mmol, pot assium OR potassium OR potassium OR potassium chloride OR potassium chloride OR potassium chloride, promethazine, simethicone, sodium chloride, sodium chloride, sod ium chloride, sodium chloride, white petrolatum OBJECTIVE Vital Signs: BP 131/87 mmHg | Pulse 114 | Temp(Src) 99.7 F (37.6 C) (Axillary) | Resp 26 | Ht 1.702 m (5' 7") | Wt 65.2 kg (143 lb 11.8 oz) | BMI 22.51 kg/m2 | SpO2 95% Temp: [97.9 F (36.6 C)-99.7 F (37.6 C)] 99.7 F (37.6 C) (10/27 399) BP: (116-151)/(85-112) 131/87 mmHg (10/26 599) Heart Rate: [110-146] 114 (10/26 599) Resp: [26-38] 26 (10/27 399) SpO2: [90 %-100 %] 95 % (10/26 06) Physical Exam Exam: Const: Vitals reviewed. No acute distress Skin: No edema. All previous skin lesions are crusting over. Right chest tunneled hemodialysis catheter site unremarkable ENT: No thrush. Lungs: CTAB, no rales or wheezes Heart: RRR, no murmur Abd: soft, NT, + bowel sounds DATA CBC: Lab Results Component Value Date WBC 10.91 10/27/2015 RBC 2.87* 10/27/2015 HGB 8.4* 10/27/2015 HCT 25.0* 10/27/2015 MCV 86.9 10/27/2015 MCH 29.1 10/27/2015 MCHC 33.5 10/27/2015 RDW 49.0 10/27/2015 PLT 487* 10/27/2015 MPV 6.6 10/27/2015 DIFFTYPE AUTOMATED 10/27/2015 WBC: Lab Results Component Value Date WBC 10.91 10/27/2015 NEUTABSMAN 10.38* 10/17/2015 NEUTROABS 8.42* 10/27/2015 NEUTROMAN 86 10/17/2015 LYMPHOABS 0.84* 10/17/2015 LYMPHOMAN 7 10/17/2015 LYMPHSABS 1.36 10/27/2015 LYMPHOPCT 12.50 10/27/2015 MONOABSMAN 0.48 10/17/2015 MONOMAN 4 10/17/2015 MONOPCT 6.53 10/27/2015 EOSINOABS 0.12 10/17/2015 EOSINOMAN 1 10/17/2015 EOSABS 0.28 10/27/2015 EOSPCT 2.57 10/27/2015 BASOSABS 0.13* 10/27/2015 BASOPCT 1.19 10/27/2015 PLTEST ADEQUATE 10/18/2015 BANDSPCT 2 10/17/2015 METAABS 0.26* 10/13/2015 METAPCT 1 10/13/2015 MYELOABS 0.17* 10/09/2015 MYELOPCT 1 10/09/2015 COMDIFF SLIDE SCANNED, AGREES WITH AUTOMATED RESULTS. 10/18/2015 CMP: Lab Results Component Value Date NA 136 10/27/2015 K 3.5 10/27/2015 CL 96* 10/27/2015 CO2 32 10/27/2015 ANIONGAP 11 10/27/2015 GLUF 93 10/27/2015 BUN 23 10/27/2015 CREATININE 1.5* 10/27/2015 BCR 15 10/27/2015 CA 7.7* 10/27/2015 PROT 5.8* 10/22/2015 ALB 1.2* 10/22/2015 GLOB 4.6 10/19/2015 BILITOT 1.5 10/22/2015 ALP 67 10/22/2015 AST 22 10/22/2015 ALT 18 10/22/2015 EGFR 58* 10/27/2015 Microbiology data: 10/13 C. difficile PCR negative 10/09 C. difficile negative 10/11 HSV oral culture negative 10/05 pleural fluid culture negative 09/30 tracheal aspirate culture grew MSSA 10/17 blood cultures with no growth to date 09/30 blood cultures with no growth 10/18 catheter tip culture with no growth to date Medical imaging: Yesterday's CXR was viewed in PACS and shoed stable multifocal consolidati on, small bilateral pleural effusions, right greater than left. Radiology report as follows: IMPRESSION: 1. Small bilateral pleural effusions. Improving pulmonary edema. 2. Multifocal patchy interstitial and airspace opacities in both lungs consistent with kn own septic emboli and multifocal pneumonia. 3. PICC line in situ with tip projecting over expected location of right atrium. 4. Additional findings as detailed above. LEM LIST Principal Problem: Sepsis (HCC) Active Problems: Hyposmolality and/or hyponatremia MARCEL (acute kidney injury) (HCC) Leucocytosis Thrombocytopenia (HCC) Toxic metabolic encephalopathy Acute respiratory failure with hypoxia (HCC) Heroin abuse Methamphetamine abuse Tobacco abuse Acute septic pulmonary embolism (HCC) Acute infective endocarditis Moderate protein-calorie malnutrition (HCC) Hallucination, visual Severe protein-calorie malnutrition (HCC) ASSESSMENT & PLAN MSSA sepsis, tricuspid valve endocarditis -Patient has MSSA bacteremia, tricuspid valve endocarditis with septic pulmonary emboli re lated to IV drug use -Neck pain and back pain improved; noncontrast MRI of spine and brain on presentation show s no evidence of infection -No evidence of septic arthritis; evaluated by orthopedics -Blood cultures on admission here have no growth. -CT scan performed on October 08 confirmed continued pleural effusion on the left, chest tube placed and d/c'd. CXR shows stable findings. -On 10/17, he was febrile so blood cultures repeated on 10/17 with no growth to date. TTE s howed tricuspid valve vegetation and a new mitral valve vegetation. Transesophageal echocard iogram showed no MV vegetation; Dr. Arias, [facility] recommends to continue medical management. Right upper extremity PICC d/c'd on 10/18, catheter tip culture with no growth. Right IJ hemo dialysis catheter replaced; has tunneled HD cath placed on 10/20. New PICC placed on 10/20 -continue IV nafcillin, day #26 of 42 Acute hypoxemic respiratory failure -improved Hallucinations Not likely to be secondary to nafcillin, despite maximal dosing. Appears to be better tod ay, will monitor. MARCEL -No adjustment needed for nafcillin. On dialysis. Renal biopsy done on 10/19, results pendi ng Abnormal LFTs -Resolved. Petechial/purpuric rash -Suspected ecthyma. Improving. Skin care. IV drug use -Not a candidate for outpatient IV antibiotics. HIV negative. Code Status: Full Code CHRIS SWANN DO 10/27/2015 Marylou Fermin ARNP - 10/27/2015 6:41 AM PDT Progress Notes by YAIR Gambino at 10/27/15640 Author: YAIR Gambino Service: Auto Dealer Author Type: Advanced Registere d Nurse Practitioner Filed: 10/27/15 0727 Date of Service: 10/27/15640 Status: Signed Bisque Brusher: YAIR Gambino (Advanced Registered Nurse Practitioner) [facility] Service: Auto Dealer Progress Note Yang Ridley 30 y.o. Hospital Day: LOS: 26 days Post-Op Day: * No surgery found * Consulting Physicians Treatment Team: Consulting Physician: Chris Swann DO Consulting Physician: Renetta Buck MD Consulting Physician: Gonzalez Bhardwaj MD Surgeon: Blanca Arias MD Consulting Physician: Blanca Arias MD Consulting Physician: Femi Vaughan MD Consulting Physician: Rodolfo Salguero MD Admitting Provider: Carly Thomas DO SUBJECTIVE Patient Summary: The patient is a 30 y.o. male with significant history of tobacco an d drug abuse using daily heroin and methamphetamine, also on Suboxone. He initially presen latasha to [facility] for progressive weakness, lethargy, and generalized pain (most ly his chest, neck, back, knees, ankles and toes) for 7 days. According to his girlfriend, he was feeling sick and febrile for a week with poor PO intake; she also noticed that his an kles and right knee were swollen but not warm or erythematous, and he seemed to be "halluinc ating and talking to himself". Exam at OSH was significant for point tenderness at the area of the cervical spine and posi tive Kernig's sign. LP was performed to rule out meningitis. IV antibiotics started, ceftria xone 2 gm and vancomycin [address] head and C-spine x-ray performed, MRI attempted but patient decompensated and was intubated for respiratory failure and airway protection. Significant labs: Na 114 (1435 hrs), BUN 81, Crea 2.48, WBC 19.9, Hb 11.6, Plt 51, Tbili 3. 6, AST 188, ALT 155, LA 1.7. CSF: clear, colorless, WBC 0, RBC 3. Transferred to [facility] for further care. Timeline: Evaluated by Nephrology, acute renal failure attributed to hemodynamics. Evaluated by Dr. Bhardwaj from orthopedics: Does not think patient has ankle septic joint and does not re commend surgical intervention. Echocardiogram showed moderate size mobile vegetation attached to the septal tricuspid v alve leaflet, moderate tricuspid regurgitation, moderate pulmonary hypertension with mildly enlarged right ventricle. Evaluated by CTS, surgery not recommended On 10/01, extubated. MRI spine w/o evidence abscess On 10/02, he was transferred out of the ICU. 10/04-Transferred to ICU for worsening mental status, drop of Na from 122 to 117 and wors ening renal function 10/05-HD line placed, started on dialysis. Right pigtail chest tube with drainage of 1400 ml serosanguineous exudate 10/06-Dialysis session. Improved encephalopathy. Anxiety requiring high dose precedex. 10/07-Right pigtail chest catheter removed 10/08-dialysis again today, 3L removed; Cxr with bilateral effusions which appear to be a bout the same as yesterday; will repeat CT chest to evaluate further; continues to be anxiou s, c/o pain 10/09-dialysis again today, 3.5L removed, now with left pleural chest catheter placed ove rnight, immediately drained 850cc, only 50cc during the day today; intermittent fevers, tach ycardia persists; add seroquel BID 10/10--dialysis again today with anticipated 2.5L removal; L pleural chest catheter remov ed, f/u Cxr in 1 hour; if no issues post dialysis and f/u cxr will transfer to acute care be d 10/11--worsening hypoxia, tachypnea, and associated tachycardia so electively re-intubate d 10/12--restarted Levophed during dialysis today; fio2 weaned to 30%; HSV oral swab negati ve 10/13-- rested comfortably overnight, temps better, restarted tube feeds 10/14-- No acute events. HD today then attempt SBT 10/15- Hodling extubation 10/16-Holding extubation, transfused 2 units PRBC 10/17-Febrile, BC sent. Echo with new vegetation on anterior leaflet of mitral valve 10/18--ANITA (per Dr Kimble) did NOT show vegetation of the mitral valve; will proceed with kidney biopsy today and tunneled catheter placement tomorrow; repeat cx's w/o growth so far 10/19--Kidney biopsy today; Ketamine added for sedation. Evaluated by CT surgery; no plans for surgery at this time 10/20--Tunneled cath placed; extubated to nasal canula will attempt, picc line placed, freddie neled cath placed. 8-4: HD held, given 100 mg iv lasix trial as he started to void, failed swallow eval 8-6: trying to wean off dex and increase benzo, still hallucinating, on room air, but ta chypneic 10/24: new PICC line placement today; continuing diuresis; repeat H&H this afternoon; cons ult psychiatry for evaluation hopefully tomorrow 10/25: Ok to remove tunneled cath today per renal; psych eval pending; continue pt/ot 10/26: IR notified of need for tunneled cath removal 10/25, will hopefully happen today; cre atinine still trending downward, vitals remain stable-normotensive and ST 110's to 130's; pt remains calm and cooperative with sitter at bedside Overnight events: sitter at bedside, intermittent hallucinations resolved with haldol x one dose again last night OBJECTIVE VITAL SIGNS Temp: [97.9 F (36.6 C)-99.7 F (37.6 C)] 99.7 F (37.6 C) Heart Rate: [110-146] 114 Resp: [26-38] 26 BP: (116-151)/(85-112) 131/87 mmHg Intake/Output Summary (Last 24 hours) at 10/27/15 0641 Last data filed at 10/27/15 0534 Gross per 24 hour Intake 3164.3 ml Output 4375 ml Net -1210.7 ml EXAM GEN: on room air, , hoarse voice, calm, cooperative, following commands NEURO: PERRLA, no facial asymmetry, moves all extremities well, non focal, still with gene ralized weakness HEENT: sclerae clear, nonicteric, oral mmm, NECK: supple, trachea midline HEART: Sinus tachycardia, S1/S2, 2/6 systolic murmur LUNGS:fine bibasilar crackles, no wheezes or rhonchi, symmetric chest expansion, slightly t achypneic ABD: soft, non-tender, BS hypoactive, EXTR: 1- 2+ edema all extremities, no clubbing or cyanosis SKIN: diffuse purpuric palpable rash bilateral anterior lower extremities, also hand and fe et. Blisters noted within rash. Dressings to bilat elbows CDI. No e/o nec fasc or myonecr osis at the elbows anteriorly. Those lesions are improving LINES/TUBES: Right tunneled cath 8-3--IR to remove; picc LUE placed 10/24 DATA Recent Labs Lab 10/27/15 0430 10/26/15 0422 10/25/15 1415 10/25/15 0303 WBC 10.91 9.21 -- 7.48 RBC 2.87* 2.80* -- 2.62* HGB 8.4* 8.0* 8.3* 7.4* HCT 25.0* 24.4* 25.6* 22.8* MCV 86.9 87.2 -- 87.1 MCH 29.1 28.6 -- 28.0 MCHC 33.5 32.8 -- 32.2 RDW 49.0 50.3 -- 51.2 PLT 487* 508* -- 501* MPV 6.6 6.7 -- 7.0 NEUTROABS 8.42* 6.65 -- 5.72 LYMPHSABS 1.36 1.51 -- 0.86* MONOSABS 0.71 0.82* -- 0.62 BASOSABS 0.13* 0.13* -- 0.11* EOSABS 0.28 0.10 -- 0.18 Recent Labs Lab 10/27/15 0430 10/26/15 1258 10/26/15 0422 10/25/15 2312 10/25/15 0303 10/22/15 0404 10/21/15 0358 NA 136 -- 138 -- -- 141 < > 140 137 K 3.5 3.7 3.4* 3.6 < > 3.3* < > 3.5 3.6 CL 96* -- 101 -- -- 105 < > 106 102 CO2 32 -- 30 -- -- 26 < > 20* 20* ANIONGAP 11 -- 11 -- -- 13 < > 18 19 GLUF 93 -- 88 -- -- 106* < > 91 104* BUN 23 -- 21 -- -- 25 < > 24 38* CREATININE 1.5* -- 1.7* -- -- 2.0* < > 2.1* 3.0* BCR 15 -- 12 -- -- 13 < > 11 13 CA 7.7* -- 7.5* -- -- 7.1* < > 7.7* 7.6* ALB -- -- -- -- -- -- -- 1.2* 1.2* PROT -- -- -- -- -- -- -- 5.8* 5.7* BILITOT -- -- -- -- -- -- -- 1.5 1.7* ALT -- -- -- -- -- -- -- 18 20 AST -- -- -- -- -- -- -- 22 20 EGFR 58* -- 50* -- -- 41* < > 39* 26* PHOS 4.7 -- 4.4 3.6 < > 4.4 < > 4.2 7.7* MG 1.5* -- 1.7 2.0 < > 1.7 < > 1.7 1.8 < > = values in this interval not displayed. No results for input(s): INR in the last [address] ABDOMEN AND PELVIS EXAM DATE: 10/19/2015 03:42 AM. CLINICAL HISTORY: Septic emboli, abdominal distention and pain COMPARISONS: 10/05/2015. TECHNIQUE: Routine axial helical CT imaging was performed through the abdomen and pelvis wi th oral but without IV contrast. Reconstructions: Coronal and sagittal. In accordance with CT protocol optimization, one or more of the following dose reduction te chniques were utilized for this exam: automated exposure control, adjustment of mA and/or KV based on patient size, or use of iterative reconstructive technique. FINDINGS: Lung Bases: Decreasing loculated pleural effusions and multifocal airspace opacities again noted, consistent with septic emboli. Noncontrast abdominal organs: Grossly stable and unremarkable noncontrast appearance to the liver, gallbladder, pancreas, adrenals, kidneys, and spleen. Peritoneal Cavity: Long segment of wall thickening involving the mid to distal ileum and ri ght colon. Mild diffuse mesenteric edema and free fluid. No gross free air. No obstruction. Pelvic Organs: No bladder stones or wall thickening. Noncontrast images of the visualized p elvic organs are unremarkable. Vasculature: Unremarkable. Other: Severe generalized anasarca. IMPRESSION: 1. Long segment of wall thickening involving the mid to distal ileum and right colon. Thi s can be seen with infectious, inflammatory, or ischemic enteritis. 2. Mild diffuse mesenteric edema and free fluid. This is likely mostly secondary to patient 's underlying severe anasarca. 3. Decreasing pleural effusions and evidence of septic pulmonary emboli and at the lung bas es. Ct Chest Without Contrast 10/09/2015 1. Significant interval decrease in size of right pleural effusion, now small. Moderate to large left pleural effusion appears slightly decreased in size. Associated cons olidative opacity seen involving the lower lobes, likely representing pneumonia or atelectas is. 2. Essentially unchanged appearance of numerous bilateral cavitary lesions or airspace opacities 3. Wedge-shaped hypodensity in the anterior spleen, suspicious for an infarct. E lectronically signed by Ramone Abarca MD on 10/09/2015 4:42 PM Xr Chest 1 View 10/14/2015 1. Unchanged appearance of bilateral airspace and nodular/cavity opacities. 2. Unchanged at least small bilateral pleural effusions. LEM LIST Principal Problem: Sepsis (HCC) Active Problems: Hyposmolality and/or hyponatremia MARCEL (acute kidney injury) (HCC) Leucocytosis Thrombocytopenia (HCC) Toxic metabolic encephalopathy Acute respiratory failure with hypoxia (HCC) Heroin abuse Methamphetamine abuse Tobacco abuse Acute septic pulmonary embolism (HCC) Acute infective endocarditis Moderate protein-calorie malnutrition (HCC) Hallucination, visual Severe protein-calorie malnutrition (HCC) ASSESSMENT & PLAN NEURO: Septic encephalopathy-Resolved. Continue seroquel and klonopin for anxiety/insomnia, fent patch Visual/auditory hallucinations--intermittent, mostly occurs at night--Pt has been off De x since 10/24., he has been appropriate, calm; ? Schizophrenia or illicit drug effects; juve triana dc'd several days ago--Psych evaluated and agrees with current treatment plan--seroquel, klonopin scheduled--haldol/ativan as needed for episodic hallucinations---pt has been receiv ing haldol 5mg IM for the past two nights and this alone has resolved episodes Denies any previous treatment/evaluation for Depression, anxiety, mental d/o etc; denies any SI/HI; denies any known family hx of mental illness CV: Septic shock resolved. Tricuspid IE on septal leaflet : no indication for surgery, see ID PULM: Tachypnea: abg with primary resp alkalosis, does not seem to be caused by a new physica l disease based on normal and improved bicarbonate, cxr stable, on room air, improved with a tivan Pulmonary septic embolic from MSSA tricuspid valve: S/p pigtails removal right and left for pleural effusions---Cxr stable with small bilate ral effusions, pt on room air with sats in the mid 's GI/NUTRITION: Severe malnutrition secondary to infectious process. Mild Transaminitis (resolved) likely sepsis related . Hepatitis serologies and HIV nega tive. Tolerating PO. RENAL/LYTES: MARCEL.---Resolving---creatinine 1.5 today, producing urine; Discussed with Renal---will re moved tunneled cath, decreased lasix to 80mg BID 10/25 s/p renal biopsy 10/19 (ordered by Dr. Vora)---Acute tubular injury, less than 5% in terstitial fibrosis New PICC line placement (10/24) ID: MSSA Tricuspid Infective Endocarditis---ANITA 10/18 r/o any mitral valve involvement Followed by ID. Currently on Nafcillin--will receive 42 days of treatment (currently on day #26) HEME: Anemia-Multifactorial. Required blood transfusion 10/06 (2 units PRBC); 1 unit given 10/09 , 1u 10/13. Hb 6.1 10/16. Transfused 2 units PRBCs with appropriate response. Haptoglobin 201 (10/16); Continue to monitor, no e/o active bleeding ENDO: Monitor BS. Goal 80-180. MUSC/SKIN: Vasculitis from IE/sepsis. Pt with purpura rash with blistering and bullae, improving Interphalangeal creases bilaterally with black wound bed Recs per cinder pit worker PT/OT, ambulates with walker PROPHYLAXIS: Stress ulcer prophylaxis: n/a DVT prophylaxis: Heparin SC, foot pumps. (no scd's d/t skin integrity of legs) VAP bundle: chlorhexadine oral care, HOB >30 degrees Disposition: Psych will continue to follow. IR to remove tunneled cath, hopefully today; afshan shaw communication note sent to RN to f/u upon transfer this a.m. Spoke with Dr Li and he kindly accepted transfer of patient. Code Status: Full Code *Please bill 30 minutes of critical care time spent evaluating the patient, reviewing the d michael and formulating a plan exclusive of all other procedures. YAIR GAMBINO 10/27/2015 6:41 AM onversio n Transaction, Provider Unknown - 10/27/2015 2:28 AM PDTFormatting of this note might be di fferent from the original. Nurse Progress Note by Maureen Sigala RN at 10/27/15227 Author: Maureen Sigala RN Service: (none) Author Type: Registered Nurse Filed: 10/27/153 Date of Service: 10/27/15227 Status: Signed Bisque Brusher: Maureen Sigala RN (Registered Nurse) Pt very tearful and began hallucinating again this AM. Stated that he was on a boat, that h e just wanted to hit himself in the head, and appeared very frustrated and agitated. RN and sitter attempted to redirect and calm pt with therapeutic communication, pt stated that he j ust wanted out of here and that he couldn't breathe. Haldol administered at this time as pt at risk for being a harm to himself as he started biting at styrofoam cup and threatening to hit his head. Pt calm after medicated but was still anxious and felt that he needed out of the room. Pt transferred to wheelchair and taken around the unit. Pt stated that he was julee thing more easily and appeared more calm and somnolent. Pt is now resting comfortably in bed , sitter at bedside. MD notified. Will continue to monitor. Maureen Espana RN onver patti Transaction, Provider Unknown - 10/26/2015 1:00 PM PDT Progress Notes by Ana Garnett RD, CD at 10/26/15 1300 Author: Ana Garnett RD, CD Service: (none) Author Type: Registered Dietitian Filed: 10/26/15 1300 Date of Service: 10/26/15 1300 Status: Signed Bisque Brusher: Ana Garnett RD, CD (Registered Dietitian) 10/26/15 1244 Subjective Timepoint Follow up (high-risk) Pt c/o Pt continues to hallucinate but was able to answer questions appropriately this AM. Sitter in room. Pt reports that his appetite has improved and he is tolerating meals well. Fluid / Beverage Intake Oral Fluids Amount Drinking liquids ad radha. Liquid Meal Replacement or Supplement Pt reports that he is interested in Boost Plus supple ments but would like it mixed with milk for dilution as they are too thick for him. Prefers strawberry flavor only. Also likes milkshakes but c/o feeling too cold at this time to drink one. Food Intake Amount of Food PO intake is improving. Pt had 2 bowls of corn flakes for breakfast this AM. Type of Food / Meals General diet. Meal / Snack Pattern Nursing staff is helping pt order preferred foods at meal times. Parenteral Nutrition Intake Rate/Solution On IV fluids of NS at 15 mL/hr. Micronutrient Intake Mineral / Element Intake Chloride;Potassium Anthropometrics Weight change Wt is down 3.9 kg from admit wt. Suspect significant loss of LBM with prolong ed hospitalization and suboptimal nutrition. I/Os indicate that pt is approximately 8 L flui d positive. Does not include some insensible losses, but pt continues to be diuresed with La six. Will continue to monitor trends and adjust nutrition goals as needed. Biochemical data, medical tests, and procedures reviewed Biochemical data, medical tests, and procedures reviewed BUN 21 (WNL), Cr 1.7 (H) - improvi ng. K+ 3.4 (L) - replacement ordered. BG has been controlled in the 80s-100s. Recommendations Recommended energy needs Continue general diet as ordered. Encourage PO intake and consiste nt meals. Will arrange for strawberry Boost Plus with skim milk to be sent TID (at snack sheree es) to help provide additional kcal/protein. Will continue to monitor clinical course and f/ u with further nutrition recs as indicated. Nutritional Risk Nutritional risk Moderate Follow up date 10/31/[address], CD, CNSC 10/26/2015 onver patti Transaction, Provider Unknown - 10/26/2015 9:35 AM PDT Case Management by SAMEERA Huggins at 10/26/15 5942 Author: SAMEERA Huggins Service: (none) Author Type: Fuse Assembler Filed: 10/26/15 1410 Date of Service: 10/26/1519 Status: Addendum Bisque Brusher: SAMEERA Huggins (Fuse Assembler) Related Notes: Original Note by SAMEERA Huggins (Fuse Assembler) filed at 10/26/15 2787 Attended morning rounds. Pt is hallucinating. Psych eval ordered for today. Auto Dealer wa nts to transfer pt to an In Pt Psych facility. Await psych eval and assistance with transfer ring pt to In Pt Psych. Addendum: Dr. Jose M evaluated pt. While he is delusional he does not have a psych dx. I ntensivist understands that pt needs to be free from IV abx and be ambulatory before a psych facility will accept pt. CM on acute carre floor will need to eventually pursue an In Pt Re hab facility for drug and etoh if pt is willing to voluntarily go there. Pt is delusional a t this time and I cannot have this kind of communication with him at present. onver patti Transaction, Provider Unknown - 10/26/2015 9:30 AM PDT Therapy Progress Note by Abran Parrish PT at 10/26/15929 Author: Abran Parrish PT Service: (none) Author Type: Physical Therapist Filed: 10/26/15 1814 Date of Service: 10/26/15929 Status: Signed Bisque Brusher: Abran Parrish PT (Physical Therapist) 10/26/15929 PT Last Visit PT Received On 10/26/15 Reason for Treatment Deconditioning Requires PT Follow Up Yes Follow up PT Only? Yes PT Eval/Reassessment Date 10/26/15 Assistance Required 1 person;2 person Precautions Other Precautions (fall risk) Other Comments Comments Pt. being reassessed since being extubated and having extensive medical course. H allucinations have resolved. The pt. is cooperative and follows commands well. He voice is raspy, but easy to understand. He exhibits general weakness, but is able to stand w/ Anuj. He ambulated approx. 70 ft. + 90 ft. after seated rest breaks. A FWW was used for stabili ty. Will try to wean to a SPC tomorrow if tolerable. Will perform formal balance testing t omorrow. Pt. was left up in the chair. Call light in reach. Sitter present. Pt. apprecia tive of being able to "move around" Cognition Overall Cognitive Status WFL Orientation Level Oriented Bed Mobility Supine to Sit Min assist (1 LE OOB) Transfers Sit to/from Stand Minimal assist (steadying/contact guard) Mobility Ambulation Assistance Minimal assist;Standby assist Maximal Ambulation Distance (feet) 90 Total Ambulation Distance (feet) 160 Distance limited by? Patient's ability Pattern Decreased jaylin;Right swing foot doesn't pass stance foot;Left swing foot doesn't pass stance foot;Forward flexed;Shuffling Assistive Device Walker front wheeled Modalities Other Therapy Ed on LE and UE bed exercises to increase strength and ongoing progression of mobility with improvement in medical status. Activity Tolerance Activity Tolerance Patient limited by fatigue Nurse Made Aware yes Safety Devices Safety Devices in Place Yes Type of Devices 1:1 sitter maintained Plan Treatment/Interventions Balance training;Gait training PT Frequency 5-7x/wk Care Duration (# of days) 7 # of days Recommendation Recommendations Defer (pending psych needs) Equipment Recommended (TBD) Marylou Fermin ARNP - 10/26/2015 8:53 AM PDTFormatting of this note might be different fr om the original. Progress Notes by YAIR Gambino at 10/26/15 0853 Author: YAIR Gambino Service: Auto Dealer Author Type: Advanced Registere d Nurse Practitioner Filed: 10/26/15 1223 Date of Service: 10/26/15852 Status: Addendum Bisque Brusher: YAIR Gambino (Advanced Registered Nurse Practitioner) Related Notes: Original Note by YAIR Gambino (Advanced Registered Nurse Pra ctitioner) filed at 10/26/15 1107 [facility] Service: Auto Dealer Progress Note Yang Ridley 30 y.o. Hospital Day: LOS: 25 days Post-Op Day: * No surgery found * Consulting Physicians Treatment Team: Consulting Physician: Chris Swann DO Consulting Physician: Renetta Buck MD Consulting Physician: Gonzalez Bhardwaj MD Surgeon: Blanca Arias MD Consulting Physician: Blanca Arias MD Consulting Physician: Femi Vaughan MD Admitting Provider: Carly Thomas DO SUBJECTIVE Patient Summary: The patient is a 30 y.o. male with significant history of tobacco an d drug abuse using daily heroin and methamphetamine, also on Suboxone. He initially presen latasha to [facility] for progressive weakness, lethargy, and generalized pain (most ly his chest, neck, back, knees, ankles and toes) for 7 days. According to his girlfriend, he was feeling sick and febrile for a week with poor PO intake; she also noticed that his an kles and right knee were swollen but not warm or erythematous, and he seemed to be "halluinc ating and talking to himself". Exam at OSH was significant for point tenderness at the area of the cervical spine and posi tive Kernig's sign. LP was performed to rule out meningitis. IV antibiotics started, ceftria xone 2 gm and vancomycin [address] head and C-spine x-ray performed, MRI attempted but patient decompensated and was intubated for respiratory failure and airway protection. Significant labs: Na 114 (1435 hrs), BUN 81, Crea 2.48, WBC 19.9, Hb 11.6, Plt 51, Tbili 3. 6, AST 188, ALT 155, LA 1.7. CSF: clear, colorless, WBC 0, RBC 3. Transferred to [facility] for further care. Timeline: Evaluated by Nephrology, acute renal failure attributed to hemodynamics. Evaluated by Dr. Bhardwaj from orthopedics: Does not think patient has ankle septic joint and does not re commend surgical intervention. Echocardiogram showed moderate size mobile vegetation attached to the septal tricuspid v alve leaflet, moderate tricuspid regurgitation, moderate pulmonary hypertension with mildly enlarged right ventricle. Evaluated by CTS, surgery not recommended On 10/01, extubated. MRI spine w/o evidence abscess On 10/02, he was transferred out of the ICU. 10/04-Transferred to ICU for worsening mental status, drop of Na from 122 to 117 and wors ening renal function 10/05-HD line placed, started on dialysis. Right pigtail chest tube with drainage of 1400 ml serosanguineous exudate 10/06-Dialysis session. Improved encephalopathy. Anxiety requiring high dose precedex. 10/07-Right pigtail chest catheter removed 10/08-dialysis again today, 3L removed; Cxr with bilateral effusions which appear to be a bout the same as yesterday; will repeat CT chest to evaluate further; continues to be anxiou s, c/o pain 10/09-dialysis again today, 3.5L removed, now with left pleural chest catheter placed ove rnight, immediately drained 850cc, only 50cc during the day today; intermittent fevers, tach ycardia persists; add seroquel BID 10/10--dialysis again today with anticipated 2.5L removal; L pleural chest catheter remov ed, f/u Cxr in 1 hour; if no issues post dialysis and f/u cxr will transfer to acute care be d 10/11--worsening hypoxia, tachypnea, and associated tachycardia so electively re-intubate d 10/12--restarted Levophed during dialysis today; fio2 weaned to 30%; HSV oral swab negati ve 10/13-- rested comfortably overnight, temps better, restarted tube feeds 10/14-- No acute events. HD today then attempt SBT 10/15- Hodling extubation 10/16-Holding extubation, transfused 2 units PRBC 10/17-Febrile, BC sent. Echo with new vegetation on anterior leaflet of mitral valve 10/18--ANITA (per Dr Kimble) did NOT show vegetation of the mitral valve; will proceed with kidney biopsy today and tunneled catheter placement tomorrow; repeat cx's w/o growth so far 10/19--Kidney biopsy today; Ketamine added for sedation. Evaluated by CT surgery; no plans for surgery at this time 10/20--Tunneled cath placed; extubated to nasal canula will attempt, picc line placed, freddie neled cath placed. 8-: HD held, given 100 mg iv lasix trial as he started to void, failed swallow eval 8-6: trying to wean off dex and increase benzo, still hallucinating, on room air, but ta chypneic 10/24: new PICC line placement today; continuing diuresis; repeat H&H this afternoon; cons ult psychiatry for evaluation hopefully tomorrow 10/25: Ok to remove tunneled cath today per renal; psych eval pending; continue pt/ot Overnight events: sitter at bedside, intermittent hallucinations resolved with haldol x one dose OBJECTIVE VITAL SIGNS Temp: [97.7 F (36.5 C)-99.3 F (37.4 C)] 98.9 F (37.2 C) Heart Rate: [115-145] 123 Resp: [11-42] 34 BP: (111-168)/(71-117) 138/102 mmHg Intake/Output Summary (Last 24 hours) at 10/26/15 0853 Last data filed at 10/26/15 0843 Gross per 24 hour Intake 2095.3 ml Output 6240 ml Net -4144.7 ml EXAM GEN: on room air, , hoarse voice, calm, following commands NEURO: PERRLA, no facial asymmetry, moves all extremities well, non focal, still with gene ralized weakness HEENT: sclerae clear, nonicteric, oral mmm, NECK: supple, trachea midline HEART: Sinus tachycardia 100's to 110's, S1/S2, 2/6 systolic murmur LUNGS:fine bibasilar crackles, no wheezes or rhonchi, symmetric chest expansion, slightly t achypneic ABD: soft, non-tender, BS hypoactive, EXTR: 1- 2+ edema all extremities, no clubbing or cyanosis SKIN: diffuse purpuric palpable rash bilateral anterior lower extremities, also hand and fe et. Blisters noted within rash. Dressings to bilat elbows CDI. No e/o nec fasc or myonecr osis at the elbows anteriorly. Those lesions are improving LINES/TUBES: Right tunneled cath 8-3---will remove today; picc LUE placed 10/24 DATA Recent Labs Lab 10/26/15 0422 10/25/15 1415 10/25/15 0303 10/24/15 0312 WBC 9.21 -- 7.48 7.80 RBC 2.80* -- 2.62* 2.70* HGB 8.0* 8.3* 7.4* 7.7* HCT 24.4* 25.6* 22.8* 23.5* MCV 87.2 -- 87.1 87.0 MCH 28.6 -- 28.0 28.6 MCHC 32.8 -- 32.2 32.9 RDW 50.3 -- 51.2 49.4 PLT 508* -- 501* 517* MPV 6.7 -- 7.0 6.9 NEUTROABS 6.65 -- 5.72 5.71 LYMPHSABS 1.51 -- 0.86* 0.91* MONOSABS 0.82* -- 0.62 0.68 BASOSABS 0.13* -- 0.11* 0.08 EOSABS 0.10 -- 0.18 0.42 Recent Labs Lab 10/26/15 0422 10/25/15 2312 10/25/15 1415 10/25/15 0303 10/24/15 0312 10/22/15 0404 10/21/15 0358 10/20/15 0458 NA 138 -- -- 141 -- 139 < > 140 137 137 K 3.4* 3.6 3.3* 3.3* < > 2.7* < > 3.5 3.6 3.5 CL 101 -- -- 105 -- 103 < > 106 102 102 CO2 30 -- -- 26 -- 25 < > 20* 20* 19* ANIONGAP 11 -- -- 13 -- 14 < > 18 19 20 GLUF 88 -- -- 106* -- 100* < > 91 104* 85 BUN 21 -- -- 25 -- 30* < > 24 38* 25 CREATININE 1.7* -- -- 2.0* -- 2.4* < > 2.1* 3.0* 2.5* BCR 12 -- -- 13 -- 13 < > 11 13 10 CA 7.5* -- -- 7.1* -- 7.5* < > 7.7* 7.6* 7.5* ALB -- -- -- -- -- -- -- 1.2* 1.2* 1.3* PROT -- -- -- -- -- -- -- 5.8* 5.7* 5.8* BILITOT -- -- -- -- -- -- -- 1.5 1.7* 1.3 ALT -- -- -- -- -- -- -- 18 20 20 AST -- -- -- -- -- -- -- 22 20 24 EGFR 50* -- -- 41* -- 34* < > 39* 26* 32* PHOS 4.4 3.6 4.1 4.4 -- 4.9* < > 4.2 7.7* 5.1* MG 1.7 2.0 1.8 1.7 < > 1.2* < > 1.7 1.8 2.0 < > = values in this interval not displayed. No results for input(s): INR in the last [address] ABDOMEN AND PELVIS EXAM DATE: 10/19/2015 03:42 AM. CLINICAL HISTORY: Septic emboli, abdominal distention and pain COMPARISONS: 10/05/2015. TECHNIQUE: Routine axial helical CT imaging was performed through the abdomen and pelvis wi th oral but without IV contrast. Reconstructions: Coronal and sagittal. In accordance with CT protocol optimization, one or more of the following dose reduction te chniques were utilized for this exam: automated exposure control, adjustment of mA and/or KV based on patient size, or use of iterative reconstructive technique. FINDINGS: Lung Bases: Decreasing loculated pleural effusions and multifocal airspace opacities again noted, consistent with septic emboli. Noncontrast abdominal organs: Grossly stable and unremarkable noncontrast appearance to the liver, gallbladder, pancreas, adrenals, kidneys, and spleen. Peritoneal Cavity: Long segment of wall thickening involving the mid to distal ileum and ri ght colon. Mild diffuse mesenteric edema and free fluid. No gross free air. No obstruction. Pelvic Organs: No bladder stones or wall thickening. Noncontrast images of the visualized p elvic organs are unremarkable. Vasculature: Unremarkable. Other: Severe generalized anasarca. IMPRESSION: 1. Long segment of wall thickening involving the mid to distal ileum and right colon. Thi s can be seen with infectious, inflammatory, or ischemic enteritis. 2. Mild diffuse mesenteric edema and free fluid. This is likely mostly secondary to patient 's underlying severe anasarca. 3. Decreasing pleural effusions and evidence of septic pulmonary emboli and at the lung bas es. Ct Chest Without Contrast 10/09/2015 1. Significant interval decrease in size of right pleural effusion, now small. Moderate to large left pleural effusion appears slightly decreased in size. Associated cons olidative opacity seen involving the lower lobes, likely representing pneumonia or atelectas is. 2. Essentially unchanged appearance of numerous bilateral cavitary lesions or airspace opacities 3. Wedge-shaped hypodensity in the anterior spleen, suspicious for an infarct. E lectronically signed by Ramone Abarca MD on 10/09/2015 4:42 PM Xr Chest 1 View 10/14/2015 1. Unchanged appearance of bilateral airspace and nodular/cavity opacities. 2. Unchanged at least small bilateral pleural effusions. LEM LIST Principal Problem: Sepsis (HCC) Active Problems: Hyposmolality and/or hyponatremia MARCEL (acute kidney injury) (HCC) Leucocytosis Thrombocytopenia (HCC) Toxic metabolic encephalopathy Acute respiratory failure with hypoxia (HCC) Heroin abuse Methamphetamine abuse Tobacco abuse Acute septic pulmonary embolism (HCC) Acute infective endocarditis Moderate protein-calorie malnutrition (HCC) Hallucination, visual Severe protein-calorie malnutrition (HCC) ASSESSMENT & PLAN NEURO: Septic encephalopathy-Resolved. Continue seroquel and klonopin for anxiety/insomnia, fent patch Visual/auditory hallucinations--intermittent--Pt has been off Dex since 10 a.m. 10/24., he has been appropriate, calm; ? Schizophrenia or illicit drug effects; ketamine dc'd several days ago--Psych consult pending Denies any previous treatment/evaluation for Depression, anxiety, mental d/o etc; denies any SI/HI; denies any known family hx of mental illness CV: Septic shock resolved. Tricuspid IE on septal leaflet : no ind for surgery, see ID PULM: Tachypnea: abg with primary resp alkalosis, does not seem to be caused by a new physica l disease based on normal and improved bicarbonate, cxr stable, on room air, improved with a tivan Pulmonary septic embolic from MSSA tricuspid valve: S/p pigtails removal right and left for pleural effusions GI/NUTRITION: Severe malnutrition secondary to infectious process. Mild Transaminitis (resolved) likely sepsis related . Hepatitis serologies and HIV nega tive. Tolerating PO. RENAL/LYTES: MARCEL.---Resolving---producing urine; Discussed with Renal---will removed tunneled cath, d ecrease lasix to 80mg BID s/p renal biopsy 10/19 (ordered by Dr. Vora)---Acute tubular injury, less than 5% in terstitial fibrosis New PICC line placement (10/24) ID: MSSA Tricuspid Infective Endocarditis---ANITA 10/18 r/o any mitral valve involvement Followed by ID. Currently on Nafcillin HEME: Anemia-Multifactorial. Required blood transfusion 10/06 (2 units PRBC); 1 unit given 10/09 , 1u 10/13. Hb 6.1 10/16. Transfused 2 units PRBCs with appropriate response. Haptoglobin 201 (10/16); Continue to monitor, no e/o active bleeding ENDO: Monitor BS. Goal 80-180. MUSC/SKIN: Vasculitis from IE/sepsis. 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 (no scd's d/t skin integrity of legs) VAP bundle: chlorhexadine oral care, HOB >30 degrees Disposition: Psych evaluation and hopefully tx out next day or two. Lengthy discussion wit h patient regarding psychiatric evaluation and he is agreeable. Code Status: Full Code *Please bill 30 minutes of critical care time spent evaluating the patient, reviewing the d michael and formulating a plan exclusive of all other procedures. YAIR GAMBINO 10/26/2015 8:53 AM Adarsh Wylie MD - 10/26/2015 8:28 AM PDTFormatting of this note might be different from the or iginal. Progress Notes by Adarsh Crews MD at 10/26/15827 Author: Adarsh Crews MD Service: Nephrology Author Type: Physician Filed: 10/27/15 0019 Date of Service: 10/26/15827 Status: Signed Bisque Brusher: Adarsh Crews MD (Physician) [facility] Service: Nephrology Progress Note Hospital Day: LOS: 25 days Post-Op Day: * No surgery found * SUBJECTIVE Patient Summary: Reviewed medical records expensively. The patient is a 30 y.o. male with significant history of tobacco and drug abuse using daily heroin and methamphetamine, also on Suboxone. He initially presented to [facility] for progressive weaknes s, lethargy, and generalized pain for the past 7 days. He noticed that his ankles and right knee were swollen but not warm or erythematous. According to his girlfriend, he has been fee ling sick and febrile for the past week with poor oral intake. LP was performed to rule out meningitis. IV antibiotics started, ceftriaxone 2 gm and vancomycin [address] head and C-spine x-ray performed, patient decompensated and was intubated for respiratory failure and airway protection and admitted to the ICU. Significant labs on initial presentation : Na 114 (1435 hrs), BUN 81, Crea 2.48, Over next 12-24 hrs, his sodium abruptly improved to a peak of126 by 6 AM on 10/01, so c ounter measures were started to avoid over correction. Patient received DDAVP X2 X 2 MCG AT 4 AND 8 AM ON 10/01 and is on D5W AT 200 ML/HR. He has never been hospitalized because of low sodium. He has never been symptomatic because of low sodium. There are no herbal preparation intake; he does not have hx of liver cirrhos is. He does not have hx of CHF, hypothyroidism or adrenal insufficiency.There is no hx of ch ronic diarrhea and no N/V. Events Overnight: Has been having occasional manic/psychotic episodes lately, current ly responding well to Haldol. Has been off dialysis for a while now and has improving UO. St ill on Furosemide 80mg TID. Reviewed labs and medical records. Note improving azotemia. Scheduled Medications clonazePAM 1 mg Oral BID fentaNYL 1 patch Transdermal Q72H fentaNYL 50 mcg Intravenous Once furosemide 80 mg Intravenous 3 times daily gentamicin Topical Daily heparin (porcine) 5000 unit/0.5mL 5,000 Units Subcutaneous 3 times per day lidocaine buffered 1% 0.5 mL Intradermal Once metoprolol 25 mg Oral BID nafcillin 2 g Intravenous Q4H QUEtiapine 100 mg Oral QAM QUEtiapine 100 mg Oral QPM sodium chloride 10 mL Intravenous 2 times per day sodium citrate anticoagulant 4 % 6 mL Intracatheter Daily Continuous Infusions sodium chloride (IV) 15 mL/hr at 10/14/15 1547 PRN Medications acetaminophen, albumin human, albuterol, aluminum-magnesium hydroxide-simethicone, benztrop ine mesylate, hdrlmsetrmAJTTH-mabzvh-kumufgpqc oral solution, haloperidol lactate, lip moist urizer, LORazepam, magnesium sulfate OR magnesium sulfate OR magnesium sulfate OR* * magnesium sulfate, metoclopramide, ondansetron OR ondansetron, pancrelipase (Lip-Prot- Amyl)12,000 units, phosphorus OR sodium phosphate IVPB 10 mmol OR sodium phosphate I VPB 20 mmol, potassium chloride OR potassium chloride OR potassium chloride, prometh azine, simethicone, sodium chloride, sodium chloride, sodium chloride, sodium chloride, whit e petrolatum OBJECTIVE Vital Signs: BP 138/102 mmHg | Pulse 123 | Temp(Src) 98.9 F (37.2 C) (Oral) | Resp 34 | Ht 1.702 m ( 5' 7") | Wt 65.2 kg (143 lb 11.8 oz) | BMI 22.51 kg/m2 | SpO2 96% Temp: [97.7 F (36.5 C)-99.3 F (37.4 C)] 98.9 F (37.2 C) (10/25 699) BP: (111-168)/(71-117) 138/102 mmHg (10/26 799) Heart Rate: [115-145] 123 (10/26 799) Resp: [11-42] 34 (10/26 799) SpO2: [85 %-98 %] 96 % (10/25 699) Weight: [65.2 kg (143 lb 11.8 oz)] 65.2 kg (143 lb 11.8 oz) (10/25 0430) Intake/Output Summary (Last 24 hours) at 10/26/15 0828 Last data filed at 10/26/15 0645 Gross per 24 hour Intake 2095.3 ml Output 5765 ml Net -3669.7 ml Physical Exam Constitutional: He appears well-developed and well-nourished. HENT: Head: Normocephalic and atraumatic. Neck: Neck supple. No JVD present. Cardiovascular: Regular rhythm, normal heart sounds and intact distal pulses. Exam reveals no gallop and no friction rub. No murmur heard. Tachycardic with rate in the 110-120 range. Pulmonary/Chest: He has no wheezes. Bilateral rhonchi. Diminished AE at the bases bilaterally. Abdomina/Gl: Soft. Bowel sounds are normal. He exhibits no mass. There is no guarding. Musculoskeletal: He exhibits edema (1-2+ in the lower extremities bilaterally). He exhibits no tenderness. Lymphadenopathy: He has no cervical adenopathy. Neurological: Alert and oriented to person only. Skin: Skin is warm and dry. No rash noted. Psychiatric: He has a normal mood and affect. Nursing note and vitals reviewed. DATA CBC: Lab Results Component Value Date WBC 9.21 10/26/2015 RBC 2.80* 10/26/2015 HGB 8.0* 10/26/2015 HCT 24.4* 10/26/2015 MCV 87.2 10/26/2015 MCH 28.6 10/26/2015 MCHC 32.8 10/26/2015 RDW 50.3 10/26/2015 PLT 508* 10/26/2015 MPV 6.7 10/26/2015 DIFFTYPE AUTOMATED 10/26/2015 WBC: Lab Results Component Value Date WBC 9.21 10/26/2015 NEUTABSMAN 10.38* 10/17/2015 NEUTROABS 6.65 10/26/2015 NEUTROMAN 86 10/17/2015 LYMPHOABS 0.84* 10/17/2015 LYMPHOMAN 7 10/17/2015 LYMPHSABS 1.51 10/26/2015 LYMPHOPCT 16.43 10/26/2015 MONOABSMAN 0.48 10/17/2015 MONOMAN 4 10/17/2015 MONOPCT 8.86 10/26/2015 EOSINOABS 0.12 10/17/2015 EOSINOMAN 1 10/17/2015 EOSABS 0.10 10/26/2015 EOSPCT 1.13 10/26/2015 BASOSABS 0.13* 10/26/2015 BASOPCT 1.37 10/26/2015 PLTEST ADEQUATE 10/18/2015 BANDSPCT 2 10/17/2015 METAABS 0.26* 10/13/2015 METAPCT 1 10/13/2015 MYELOABS 0.17* 10/09/2015 MYELOPCT 1 10/09/2015 COMDIFF SLIDE SCANNED, AGREES WITH AUTOMATED RESULTS. 10/18/2015 CMP: Lab Results Component Value Date NA 138 10/26/2015 K 3.4* 10/26/2015 CL 101 10/26/2015 CO2 30 10/26/2015 ANIONGAP 11 10/26/2015 GLUF 88 10/26/2015 BUN 21 10/26/2015 CREATININE 1.7* 10/26/2015 BCR 12 10/26/2015 CA 7.5* 10/26/2015 PROT 5.8* 10/22/2015 ALB 1.2* 10/22/2015 GLOB 4.6 10/19/2015 BILITOT 1.5 10/22/2015 ALP 67 10/22/2015 AST 22 10/22/2015 ALT 18 10/22/2015 EGFR 50* 10/26/2015 Magnesium: Lab Results Component Value Date MG 1.7 10/26/2015 Phosphorus: Lab Results Component Value Date PHOS 4.4 10/26/2015 Medical Record Review: Reviewed extensively for this encounter. RADIOLOGIC: CXR as of 10/25/2015: FINDINGS: Normal cardiac size. Right internal jugular approach double lumen vascular catheter in situ with tip projecting over expected location of superior cavoatrial junction. Left-sided PICC line in situ with tip projecting over expected location of right atrium. Improving diffuse interstitial opacities in both lungs. Bilateral patchy interstitial and airspace opacities i n both lungs, right greater than left. Small bilateral pleural effusions. No pneumothorax. IMPRESSION: 1. Small bilateral pleural effusions. Improving pulmonary edema. 2. Multifocal patchy interstitial and airspace opacities in both lungs consistent with kn own septic emboli and multifocal pneumonia. 3. PICC line in situ with tip projecting over expected location of right atrium. 4. Additional findings as detailed above. LEM LIST Principal Problem: Sepsis (HCC) Active Problems: Hyposmolality and/or hyponatremia MARCEL (acute kidney injury) (HCC) Leucocytosis Thrombocytopenia (HCC) Toxic metabolic encephalopathy Acute respiratory failure with hypoxia (HCC) Heroin abuse Methamphetamine abuse Tobacco abuse Acute septic pulmonary embolism (HCC) Acute infective endocarditis Moderate protein-calorie malnutrition (HCC) Hallucination, visual Severe protein-calorie malnutrition (HCC) @MALDXPLAN@ ASSESSMENT & PLAN 1. MARCEL/ ARF: note improving azotemia, now with serum creatinine 1.7. S/p kidney biopsy that showed ATN. - Renal diet with 2gm Na+, 2gm K+, 1gm Phos, 1.2g protein/Kg body weight per day; total ramiro ories [id number] Kcal/day. - Daily weights and strict I/O's. Okay with cautious IVF likely with NS. - Adjust dose of medications including antibiotics to estimated GFR. - Avoid NSAIDs (including FRASER 2 inhibitors) and iodine contrast agents. - Avoid use of Magnesium and aluminum containing antacids. - Avoid use of Magnesium or phosphorus containing laxatives. - Get uric acid, phos, mag, CMP and CBC today and as needed. 2. Lytes/bone: - Na+: Improved and stable. Will maintain with appropriate dialysate Na+ bath to maintain s seth Na+ level WAL. - K+: Low. Will be replaced and rechecked. - PO4: Stable. Not having any meaningful intake lately. Will monitor closely. - Bicarb: Stable. Will maintain with appropriated dialysate bicarbonate bath. 3. BP control: BP control isacceptable. Avoid further hypotension. Continue pressor sup port with UF on HD.Will decrease dialysate temp to 35.7C and may give up to 4 amps of iv a lbumin early during dialysis to enhance UF. 4. Anemia mangement: Hb is currently low at 8. - Will continue Epogen as needed to maintain HGB between 10-12g/dL. Will give Epogen 38935 units sq weekly. 5. Hypoalbuminemia: Poor nutrition noted. Nutritional assessment needed. Case and care plan discussed with the piercing artist and intensive care team. Disposition: Possible to a care facility for continued antibiotic treatment. 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 male with significant history of tobacco and drug abuse using daily heroin and methamphetamine, also on Suboxone. He initially presented to [facility] for progressive weakness, lethargy, and ge neralized pain (mostly his chest, neck, back, knees, ankles and toes) for the past 7 days. H e noticed that his ankles and right knee were swollen but not warm or erythematous. Nessa barnett to his girlfriend, he has been feeling sick and febrile for the past week with poor PO int elisha. Yesterday, she noticed that he seemed like he was hallucinating and talking to himself. He was very weak today that she had to assist him to get into the car to go the the ED. Exam at OSH was significant for point tenderness at the area of the cervical spine and posi tive Kernig's sign. LP was performed to rule out meningitis. IV antibiotics started, ceftria xone 2 gm and vancomycin [address] head and C-spine x-ray performed, MRI attempted but patient decompensated and was intubated for respiratory failure and airway protection. Significant labs: Na 114 (1435 hrs), BUN 81, Crea 2.48, WBC 19.9, Hb 11.6, Plt 51, Tbili 3. 6, AST 188, ALT 155, LA 1.7. CSF: clear, colorless, WBC 0, RBC 3. Protein 31. Glucose 50. Culture with no growth to d ate Blood cultures are reported to be growing GPCs at [place]' Transferred to [facility] for further care. MRI of brain and spine carried out with limited findi ngs due to non-contrast study. Evaluated by Nephrology, acute renal failure attributed to hemodynamics. Evaluated by Dr. Bhardwaj from orthopedics: Does not think patient has ankle septic joint and does not recomme nd surgical intervention. Echocardiogram showed moderate size mobile vegetation attached to the septal tricuspid valv e leaflet, moderate tricuspid regurgitation, moderate pulmonary hypertension with mildly enl arged right ventricle. Evaluated by CTS, surgery not recommended On 10/01, extubated On 10/02, he was transferred out of the ICU. On 10/04, patient had worsening mental status and also became tachypneic. He became more hy ponatremic with worsening renal function. Bilateral moderate sized pleural effusions were n oted on chest CT scan. Bedside ultrasound with bilateral pleural effusion, R>L. Left minimal and without echogenic ity suggestive of infectious pleural effusion. Left effusion is moderate with fibrin strands concerning for complicated/infectious pleural effusion. Right pig tail chest tube placed wi th purulent drainage. Head CT scan negative On 10/05, started on hemodialysis On October 08, left chest tube was placed. Reintubated on October 11. On 10/16-, patient was febrile to 101.4F. Blood cultures were sent. On 10/18, echocardiogram showed possible mobile vegetation at the posterior mitral valve leaf let along with known tricuspid valve vegetation. Right IJ hemodialysis catheter was placed. PICC was discontinued. He complained of abdominal pain and tenderness; CT scan was done salomon t showed mid to distal ileum and right colitis. On 10/19, transesophageal echocardiogram reported as showing no mitral vegetation with large, mobile vegetation at the tricuspid valve and severe tricuspid regurgitation. CT surgery ree valuated the patient; proceeding with medical management. Kidney biopsy done. CC: Endocarditis Chart reviewed: No new events. Subjective The patient reports that he feels better. He is breathing without difficulty, denies any co ugh. No nausea, vomiting or abdominal pain. ROS No fever, chills sweats. No nausea, vomiting or diarrhea. No rashes or pruritis. No oral pa in. Scheduled Medications clonazePAM 1 mg Oral BID fentaNYL 1 patch Transdermal Q72H fentaNYL 50 mcg Intravenous Once furosemide 80 mg Intravenous 3 times daily gentamicin Topical Daily heparin (porcine) 5000 unit/0.5mL 5,000 Units Subcutaneous 3 times per day lidocaine buffered 1% 0.5 mL Intradermal Once metoprolol 25 mg Oral BID nafcillin 2 g Intravenous Q4H QUEtiapine 100 mg Oral QAM QUEtiapine 100 mg Oral QPM sodium chloride 10 mL Intravenous 2 times per day sodium citrate anticoagulant 4 % 6 mL Intracatheter Daily Continuous Infusions sodium chloride (IV) 15 mL/hr at 10/14/15 1547 PRN Medications acetaminophen, albumin human, albuterol, aluminum-magnesium hydroxide-simethicone, benztrop ine mesylate, ffnlrukguwOCIRW-kcxgql-pmjxcskmu oral solution, haloperidol lactate, lip moist urizer, LORazepam, magnesium sulfate OR magnesium sulfate OR magnesium sulfate OR* * magnesium sulfate, metoclopramide, ondansetron OR ondansetron, pancrelipase (Lip-Prot- Amyl)12,000 units, phosphorus OR sodium phosphate IVPB 10 mmol OR sodium phosphate I VPB 20 mmol, potassium chloride OR potassium chloride OR potassium chloride, prometh azine, simethicone, sodium chloride, sodium chloride, sodium chloride, sodium chloride, whit e petrolatum OBJECTIVE Vital Signs: BP 127/85 mmHg | Pulse 128 | Temp(Src) 99 F (37.2 C) (Oral) | Resp 37 | Ht 1.702 m (5' 7") | Wt 65.2 kg (143 lb 11.8 oz) | BMI 22.51 kg/m2 | SpO2 95% Temp: [97.7 F (36.5 C)-100.2 F (37.9 C)] 99 F (37.2 C) (10/25 0400) BP: (111-168)/(71-117) 127/85 mmHg (10/25 599) Heart Rate: [115-145] 128 (10/25 599) Resp: [11-42] 37 (10/25 599) SpO2: [85 %-100 %] 95 % (10/25 599) Weight: [65.2 kg (143 lb 11.8 oz)] 65.2 kg (143 lb 11.8 oz) (10/25 429) Physical Exam Exam: Const: Vitals reviewed. No acute distress Skin: No edema. All previous skin lesions are crusting over. Right chest tunneled hemodialysis catheter site unremarkable ENT: No thrush. Lungs: CTAB, no rales or wheezes Heart: RRR, no murmur Abd: soft, NT, + bowel sounds Musculoskeletal: No gross deformity or active arthritis DATA CBC: Lab Results Component Value Date WBC 9.21 10/26/2015 RBC 2.80* 10/26/2015 HGB 8.0* 10/26/2015 HCT 24.4* 10/26/2015 MCV 87.2 10/26/2015 MCH 28.6 10/26/2015 MCHC 32.8 10/26/2015 RDW 50.3 10/26/2015 PLT 508* 10/26/2015 MPV 6.7 10/26/2015 DIFFTYPE AUTOMATED 10/26/2015 WBC: Lab Results Component Value Date WBC 9.21 10/26/2015 NEUTABSMAN 10.38* 10/17/2015 NEUTROABS 6.65 10/26/2015 NEUTROMAN 86 10/17/2015 LYMPHOABS 0.84* 10/17/2015 LYMPHOMAN 7 10/17/2015 LYMPHSABS 1.51 10/26/2015 LYMPHOPCT 16.43 10/26/2015 MONOABSMAN 0.48 10/17/2015 MONOMAN 4 10/17/2015 MONOPCT 8.86 10/26/2015 EOSINOABS 0.12 10/17/2015 EOSINOMAN 1 10/17/2015 EOSABS 0.10 10/26/2015 EOSPCT 1.13 10/26/2015 BASOSABS 0.13* 10/26/2015 BASOPCT 1.37 10/26/2015 PLTEST ADEQUATE 10/18/2015 BANDSPCT 2 10/17/2015 METAABS 0.26* 10/13/2015 METAPCT 1 10/13/2015 MYELOABS 0.17* 10/09/2015 MYELOPCT 1 10/09/2015 COMDIFF SLIDE SCANNED, AGREES WITH AUTOMATED RESULTS. 10/18/2015 CMP: Lab Results Component Value Date NA 138 10/26/2015 K 3.4* 10/26/2015 CL 101 10/26/2015 CO2 30 10/26/2015 ANIONGAP 11 10/26/2015 GLUF 88 10/26/2015 BUN 21 10/26/2015 CREATININE 1.7* 10/26/2015 BCR 12 10/26/2015 CA 7.5* 10/26/2015 PROT 5.8* 10/22/2015 ALB 1.2* 10/22/2015 GLOB 4.6 10/19/2015 BILITOT 1.5 10/22/2015 ALP 67 10/22/2015 AST 22 10/22/2015 ALT 18 10/22/2015 EGFR 50* 10/26/2015 Microbiology data: 10/13 C. difficile PCR negative 10/09 C. difficile negative 10/11 HSV oral culture negative 10/05 pleural fluid culture negative 09/30 tracheal aspirate culture grew MSSA 10/17 blood cultures with no growth to date 09/30 blood cultures with no growth 10/18 catheter tip culture with no growth to date Medical imaging: Yesterday's CXR was viewed in PACS and shoed stable multifocal consolidati on, small bilateral pleural effusions, right greater than left. Radiology report as follows: IMPRESSION: 1. Small bilateral pleural effusions. Improving pulmonary edema. 2. Multifocal patchy interstitial and airspace opacities in both lungs consistent with kn own septic emboli and multifocal pneumonia. 3. PICC line in situ with tip projecting over expected location of right atrium. 4. Additional findings as detailed above. LEM LIST Principal Problem: Sepsis (HCC) Active Problems: Hyposmolality and/or hyponatremia MARCEL (acute kidney injury) (HCC) Leucocytosis Thrombocytopenia (HCC) Toxic metabolic encephalopathy Acute respiratory failure with hypoxia (HCC) Heroin abuse Methamphetamine abuse Tobacco abuse Acute septic pulmonary embolism (HCC) Acute infective endocarditis Moderate protein-calorie malnutrition (HCC) Hallucination, visual Severe protein-calorie malnutrition (HCC) ASSESSMENT & PLAN MSSA sepsis, tricuspid valve endocarditis -Patient has MSSA bacteremia, tricuspid valve endocarditis with septic pulmonary emboli re lated to IV drug use -Neck pain and back pain improved; noncontrast MRI of spine and brain on presentation show s no evidence of infection -No evidence of septic arthritis; evaluated by orthopedics -Blood cultures on admission here have no growth. -CT scan performed on October 08 confirmed continued pleural effusion on the left, chest tube placed and d/c'd. CXR shows stable findings. -On 10/17, he was febrile so blood cultures repeated on 10/17 with no growth to date. TTE s howed tricuspid valve vegetation and a new mitral valve vegetation. Transesophageal echocard iogram showed no MV vegetation; Dr. Arias, CTS recommends to continue medical management. Right upper extremity PICC d/c'd on 10/18, catheter tip culture with no growth. Right IJ hemo dialysis catheter replaced; has tunneled HD cath placed on 10/20. New PICC placed on 10/20 -continue IV nafcillin, day #25 of 42 Acute hypoxemic respiratory failure -Reintubated on 10/11 and extubated on October 21. Will monitor. Hallucinations Not likely to be secondary to nafcillin, despite maximal dosing. Appears to be better tod ay, will monitor. MARCEL -No adjustment needed for nafcillin. On dialysis. Renal biopsy done on 10/19, results pendi ng Abnormal LFTs -Resolved. Petechial/purpuric rash -Suspected ecthyma. Improving. Skin care. IV drug use -Not a candidate for outpatient IV antibiotics. HIV negative. Code Status: Full Code CHRIS SWANN DO 10/26/2015 onversion Transaction , Provider Unknown - 10/26/2015 1:30 AM PDT Nurse Progress Note by Maureen Sigala RN at 10/26/15 013 Author: Maureen Sigala RN Service: (none) Author Type: Registered Nurse Filed: 10/26/155 Date of Service: 10/26/15129 Status: Signed Bisque Brusher: Maureen Sigala RN (Registered Nurse) Pt noted to be in a somewhat manic state. When assessing orientation, pt stated that he was on a boat, was stuttering, was unable to focus, and was moving hands in repeated movements. IM haldol administered, MD notified. After dose of haldol, pt is back to baseline, able to communicate appropriately. Will continue to monitor. Maureen Espana RN Melinda rajan, Delfino Franco MD - 10/25/2015 4:52 PM PDT Progress Notes by Delfino Vora MD at 10/25/151651 Author: Delfino Vora MD Service: Nephrology Author Type: Physician Filed: 10/25/15 165 Date of Service: 10/25/151651 Status: Signed Bisque Brusher: Delfino Vora MD (Physician) [facility] Service: Nephrology Renal Consult Progress Note Yang Ridley [id number] Hospital Day: LOS: 24 days SUBJECTIVE Patient Summary: Patient seen and examined. Feels well today. Has no complaints. Events Overnight: New picc line placed Scheduled Medications clonazePAM 1 mg Oral BID fentaNYL 1 patch Transdermal Q72H fentaNYL 50 mcg Intravenous Once furosemide 80 mg Intravenous 3 times daily gentamicin Topical Daily heparin (porcine) 5000 unit/0.5mL 5,000 Units Subcutaneous 3 times per day lidocaine buffered 1% 0.5 mL Intradermal Once metoprolol 12.5 mg Oral BID nafcillin 2 g Intravenous Q4H QUEtiapine 100 mg Oral QAM QUEtiapine 100 mg Oral QPM sodium chloride 10 mL Intravenous 2 times per day sodium citrate anticoagulant 4 % 6 mL Intracatheter Daily Continuous Infusions dexmedetomidine in NS 0.2 mcg/kg/hr (10/25/15 0911) sodium chloride (IV) 15 mL/hr at 10/14/15 1547 PRN Medications acetaminophen, albumin human, albuterol, aluminum-magnesium hydroxide-simethicone, benztrop ine mesylate, ybwdcczgurRXHUE-ppsaqx-mnrcybcvt oral solution, haloperidol lactate, lip moist urizer, LORazepam, magnesium sulfate OR magnesium sulfate OR magnesium sulfate OR* * magnesium sulfate, metoclopramide, ondansetron OR ondansetron, pancrelipase (Lip-Prot- Amyl)12,000 units, phosphorus OR sodium phosphate IVPB 10 mmol OR sodium phosphate I VPB 20 mmol, potassium chloride OR potassium chloride OR potassium chloride, prometh azine, simethicone, sodium chloride, sodium chloride, sodium chloride, sodium chloride, whit e petrolatum OBJECTIVE Vital Signs: BP 139/95 mmHg | Pulse 137 | Temp(Src) 97.8 F (36.6 C) (Axillary) | Resp 37 | Ht 1.702 m (5' 7") | Wt 67.9 kg (149 lb 11.1 oz) | BMI 23.44 kg/m2 | SpO2 97% Intake/Output Summary (Last 24 hours) at 10/25/15 1652 Last data filed at 10/25/15 1500 Gross per 24 hour Intake 1170 ml Output 3200 ml Net -2030 ml Gen: NAD, A&Ox3 Neck: rt ij pc present Pulm: CTA b/l, good air movement, no w/r/r CV: RRR, nl S1S2, no rub Abd: Soft, NT/ND, NABS Ext: no c/c/e Access: rt ij pc DATA Recent Labs Lab 10/25/15 0303 10/24/15 0312 10/23/15 0324 10/22/15 0404 CREATININE 2.0* 2.4* 2.6* 2.1* Recent Labs Lab 10/25/15 0303 10/24/15 2100 10/24/15 1152 10/24/15 0312 10/23/15 0324 10/22/15 0404 NA 141 -- -- 139 141 140 K 3.3* 2.7* 3.0* 2.7* 3.1* 3.5 CL 105 -- -- 103 107 106 CO2 26 -- -- 25 22* 20* BUN 25 -- -- 30* 30* 24 CA 7.1* -- -- 7.5* 7.7* 7.7* PHOS 4.4 -- -- 4.9* 4.8 4.2 MG 1.7 1.5* 1.7 1.2* 1.5* 1.7 Recent Labs Lab 10/22/15 0404 10/21/15 0358 10/20/15 0458 10/19/15 0517 10/19/15 0452 ALB 1.2* 1.2* 1.3* -- 1.3* ALP 67 66 72 -- 73 AST 22 20 24 -- 29 ALT 18 20 20 -- 22 INR -- -- -- 1.1 DUPLICATE ORDER Recent Labs Lab 10/25/15 0303 10/24/15 0312 10/23/15 0324 10/22/15 0404 WBC 7.48 7.80 7.93 9.29 RBC 2.62* 2.70* 2.66* 2.85* HGB 7.4* 7.7* 7.8* 8.3* HCT 22.8* 23.5* 23.4* 25.4* PLT 501* 517* 457* 407* MCV 87.1 87.0 87.9 88.9 RDW 51.2 49.4 50.8 51.6 Recent Labs Lab 10/19/15 0517 10/19/15 0452 INR 1.1 DUPLICATE ORDER PROBLEM LIST Principal Problem: Sepsis (HCC) Active Problems: Hyposmolality and/or hyponatremia MARCEL (acute kidney injury) (HCC) Leucocytosis Thrombocytopenia (HCC) Toxic metabolic encephalopathy Acute respiratory failure with hypoxia (HCC) Heroin abuse Methamphetamine abuse Tobacco abuse Acute septic pulmonary embolism (HCC) Acute infective endocarditis Moderate protein-calorie malnutrition (HCC) Hallucination, visual Severe protein-calorie malnutrition (HCC) ASSESSMENT & PLAN The patient is a 30 y.o. male with significant history of tobacco and drug abuse using jennifer y heroin and methamphetamine, also on Suboxone. He initially presented to [facility] for progressive weakness, lethargy, and generalized pain for the past 7 days. He noti edy that his ankles and right knee were swollen but not warm or erythematous. According to imer valverde girlfriend, he has been feeling sick and febrile for the past week with poor oral intake. LP was performed to rule out meningitis. IV antibiotics started, ceftriaxone 2 gm and vanco mycin [address] head and C-spine x-ray performed, patient decompensated and was intubat ed for respiratory failure and airway protection and admitted to the ICU. Significant labs on initial presentation : Na 114 (1435 hrs), BUN 81, Crea 2.48, Over next 12-24 hrs, his sodium abruptly improved to a peak of126 by 6 AM on 10/01, so c ounter measures were started to avoid over correction. Patient received DDAVP X2 X 2 MCG AT 4 AND 8 AM ON 10/01 and is on D5W AT 200 ML/HR. He has never been hospitalized because of low sodium. He has never been symptomatic because of low sodium. There are no herbal preparation intake; he does not have hx of liver cirrhos is. He does not have hx of CHF, hypothyroidism or adrenal insufficiency.There is no hx of ch ronic diarrhea and no N/V. ARF kidney biopsy showing atn, his renal function is recovering Hold of dialysis, will continue him on lasix 80 mg iv tid, pul edema is improving, replac e potassium, can remove pc in am daily weights and strict I/O's Diet should be 0.8 gm/kg protein, 1 gm PO4, 2 gm Na, and 2 gm K restricted diet. medications to be dosed for estimated eGFR Of 15 NSAIDs (including FRASER 2 inhibitors) should not be used. Magnesium and aluminum containing antacids should be avoided. Magnesium or phosphorus containing laxatives should be avoided. Dr Crews to cover for me from 10/26/2015 @ 8 am Code Status: Full Code Delfino Vora MD 10/25/2015 4:52 PM Jeny, YAIR Hernandez - 10/25/2015 8:59 AM PDTFormatting of this note might be different from t he original. Progress Notes by YAIR Gambino at 10/25/15 0859 Author: YAIR Gambino Service: Auto Dealer Author Type: Advanced Registere d Nurse Practitioner Filed: 10/25/15 1831 Date of Service: 10/25/15 0859 Status: Addendum Bisque Brusher: YAIR Gambino (Advanced Registered Nurse Practitioner) Related Notes: Original Note by YAIR Gambino (Advanced Registered Nurse Pra ctitioner) filed at 10/25/15 1603 [facility] Service: Auto Dealer Progress Note Yang Ridley 30 y.o. Hospital Day: LOS: 24 days Post-Op Day: * No surgery found * Consulting Physicians Treatment Team: Consulting Physician: Chris Swann DO Consulting Physician: Renetta Buck MD Consulting Physician: Gonzalez Bhardwaj MD Surgeon: Blanca Arias MD Consulting Physician: Blanca Arias MD Consulting Physician: Femi Vaughan MD Admitting Provider: Carly Thomas DO SUBJECTIVE Patient Summary: The patient is a 30 y.o. male with significant history of tobacco an d drug abuse using daily heroin and methamphetamine, also on Suboxone. He initially presen latasha to [facility] for progressive weakness, lethargy, and generalized pain (most ly his chest, neck, back, knees, ankles and toes) for 7 days. According to his girlfriend, he was feeling sick and febrile for a week with poor PO intake; she also noticed that his an kles and right knee were swollen but not warm or erythematous, and he seemed to be "halluinc ating and talking to himself". Exam at OSH was significant for point tenderness at the area of the cervical spine and posi tive Kernig's sign. LP was performed to rule out meningitis. IV antibiotics started, ceftria xone 2 gm and vancomycin [address] head and C-spine x-ray performed, MRI attempted but patient decompensated and was intubated for respiratory failure and airway protection. Significant labs: Na 114 (1435 hrs), BUN 81, Crea 2.48, WBC 19.9, Hb 11.6, Plt 51, Tbili 3. 6, AST 188, ALT 155, LA 1.7. CSF: clear, colorless, WBC 0, RBC 3. Transferred to [facility] for further care. Timeline: Evaluated by Nephrology, acute renal failure attributed to hemodynamics. Evaluated by Dr. Bhardwaj from orthopedics: Does not think patient has ankle septic joint and does not re commend surgical intervention. Echocardiogram showed moderate size mobile vegetation attached to the septal tricuspid v alve leaflet, moderate tricuspid regurgitation, moderate pulmonary hypertension with mildly enlarged right ventricle. Evaluated by CTS, surgery not recommended On 10/01, extubated. MRI spine w/o evidence abscess On 10/02, he was transferred out of the ICU. 10/04-Transferred to ICU for worsening mental status, drop of Na from 122 to 117 and wors ening renal function 10/05-HD line placed, started on dialysis. Right pigtail chest tube with drainage of 1400 ml serosanguineous exudate 10/06-Dialysis session. Improved encephalopathy. Anxiety requiring high dose precedex. 10/07-Right pigtail chest catheter removed 10/08-dialysis again today, 3L removed; Cxr with bilateral effusions which appear to be a bout the same as yesterday; will repeat CT chest to evaluate further; continues to be anxiou s, c/o pain 10/09-dialysis again today, 3.5L removed, now with left pleural chest catheter placed ove rnight, immediately drained 850cc, only 50cc during the day today; intermittent fevers, tach ycardia persists; add seroquel BID 10/10--dialysis again today with anticipated 2.5L removal; L pleural chest catheter remov ed, f/u Cxr in 1 hour; if no issues post dialysis and f/u cxr will transfer to acute care be d 10/11--worsening hypoxia, tachypnea, and associated tachycardia so electively re-intubate d 10/12--restarted Levophed during dialysis today; fio2 weaned to 30%; HSV oral swab negati ve 10/13-- rested comfortably overnight, temps better, restarted tube feeds 10/14-- No acute events. HD today then attempt SBT 10/15- Hodling extubation 10/16-Holding extubation, transfused 2 units PRBC 10/17-Febrile, BC sent. Echo with new vegetation on anterior leaflet of mitral valve 10/18--ANITA (per Dr Kimble) did NOT show vegetation of the mitral valve; will proceed with kidney biopsy today and tunneled catheter placement tomorrow; repeat cx's w/o growth so far 10/19--Kidney biopsy today; Ketamine added for sedation. Evaluated by CT surgery; no plans for surgery at this time 10/20--Tunneled cath placed; extubated to nasal canula will attempt, picc line placed, freddie neled cath placed. 8-: HD held, given 100 mg iv lasix trial as he started to void, failed swallow eval 10-23: trying to wean off dex and increase benzo, still hallucinating, on room air, but ta chypneic 10/24: new PICC line placement today; continuing diuresis; repeat H&H this afternoon; cons ult psychiatry for evaluation hopefully tomorrow Overnight events: sitter at bedside, apparently pulled picc line out with his teeth OBJECTIVE VITAL SIGNS Temp: [97.4 F (36.3 C)-100.4 F (38 C)] 100.4 F (38 C) Heart Rate: [99-132] 130 Resp: [7-55] 7 BP: (121-153)/(83-103) 147/92 mmHg Intake/Output Summary (Last 24 hours) at 10/25/15 0859 Last data filed at 10/25/15 0400 Gross per 24 hour Intake 1180 ml Output 1325 ml Net -145 ml EXAM GEN: on room air, , hoarse voice, calm, following commands NEURO: PERRLA, no facial asymmetry, moves all extremities well, non focal, still with gene ralized weakness HEENT: sclerae clear, nonicteric, oral mmm, NECK: supple, trachea midline HEART: Sinus tachycardia 100's to 110's, S1/S2, 2/6 systolic murmur LUNGS:coarse bilat, no w, symmetric chest expansion, slightly tachypneic ABD: soft, non-tender, BS hypoactive, EXTR: 1- 2+ edema all extremities, no clubbing or cyanosis SKIN: diffuse purpuric palpable rash bilateral anterior lower extremities, also hand and fe et. Blisters noted within rash. Dressings to bilat elbows CDI. No e/o nec fasc or myonecr osis at the elbows anteriorly. Those lesions are improving LINES/TUBES: Right tunneled cath 10-20; picc LUE 10/24 DATA Recent Labs Lab 10/25/15 0303 10/24/15 0312 10/23/15 0324 WBC 7.48 7.80 7.93 RBC 2.62* 2.70* 2.66* HGB 7.4* 7.7* 7.8* HCT 22.8* 23.5* 23.4* MCV 87.1 87.0 87.9 MCH 28.0 28.6 29.2 MCHC 32.2 32.9 33.2 RDW 51.2 49.4 50.8 PLT 501* 517* 457* MPV 7.0 6.9 7.3 NEUTROABS 5.72 5.71 5.99 LYMPHSABS 0.86* 0.91* 0.82* MONOSABS 0.62 0.68 0.67 BASOSABS 0.11* 0.08 0.12* EOSABS 0.18 0.42 0.34 Recent Labs Lab 10/25/15 0303 10/24/15 2100 10/24/15 1152 10/24/15 0312 10/23/15 0324 10/22/15 0404 10/21/15 0358 10/20/15 0458 10/19/15 0452 NA 141 -- -- 139 141 140 137 137 131* K 3.3* 2.7* 3.0* 2.7* 3.1* 3.5 3.6 3.5 3.3* CL 105 -- -- 103 107 106 102 102 98* CO2 26 -- -- 25 22* 20* 20* 19* 18* ANIONGAP 13 -- -- 14 15 18 19 20 19 GLUF 106* -- -- 100* 110* 91 104* 85 92 BUN 25 -- -- 30* 30* 24 38* 25 58* CREATININE 2.0* -- -- 2.4* 2.6* 2.1* 3.0* 2.5* 4.1* BCR 13 -- -- 13 12 11 13 10 14 CA 7.1* -- -- 7.5* 7.7* 7.7* 7.6* 7.5* 7.4* ALB -- -- -- -- -- 1.2* 1.2* 1.3* 1.3* GLOB -- -- -- -- -- -- -- -- 4.6 AG -- -- -- -- -- -- -- -- 0.3* PROT -- -- -- -- -- 5.8* 5.7* 5.8* 5.9* BILITOT -- -- -- -- -- 1.5 1.7* 1.3 1.7* ALT -- -- -- -- -- 18 20 20 22 AST -- -- -- -- -- 22 20 24 29 EGFR 41* -- -- 34* 31* 39* 26* 32* 18* PHOS 4.4 -- -- 4.9* 4.8 4.2 7.7* 5.1* 7.1* MG 1.7 1.5* 1.7 1.2* 1.5* 1.7 1.8 2.0 2.0 Recent Labs Lab 10/19/15 0517 10/19/15 0452 INR 1.[address] ABDOMEN AND PELVIS EXAM DATE: 10/19/2015 03:42 AM. CLINICAL HISTORY: Septic emboli, abdominal distention and pain COMPARISONS: 10/05/2015. TECHNIQUE: Routine axial helical CT imaging was performed through the abdomen and pelvis wi th oral but without IV contrast. Reconstructions: Coronal and sagittal. In accordance with CT protocol optimization, one or more of the following dose reduction te chniques were utilized for this exam: automated exposure control, adjustment of mA and/or KV based on patient size, or use of iterative reconstructive technique. FINDINGS: Lung Bases: Decreasing loculated pleural effusions and multifocal airspace opacities again noted, consistent with septic emboli. Noncontrast abdominal organs: Grossly stable and unremarkable noncontrast appearance to the liver, gallbladder, pancreas, adrenals, kidneys, and spleen. Peritoneal Cavity: Long segment of wall thickening involving the mid to distal ileum and ri ght colon. Mild diffuse mesenteric edema and free fluid. No gross free air. No obstruction. Pelvic Organs: No bladder stones or wall thickening. Noncontrast images of the visualized p elvic organs are unremarkable. Vasculature: Unremarkable. Other: Severe generalized anasarca. IMPRESSION: 1. Long segment of wall thickening involving the mid to distal ileum and right colon. Thi s can be seen with infectious, inflammatory, or ischemic enteritis. 2. Mild diffuse mesenteric edema and free fluid. This is likely mostly secondary to patient 's underlying severe anasarca. 3. Decreasing pleural effusions and evidence of septic pulmonary emboli and at the lung bas es. Ct Chest Without Contrast 10/09/2015 1. Significant interval decrease in size of right pleural effusion, now small. Moderate to large left pleural effusion appears slightly decreased in size. Associated cons olidative opacity seen involving the lower lobes, likely representing pneumonia or atelectas is. 2. Essentially unchanged appearance of numerous bilateral cavitary lesions or airspace opacities 3. Wedge-shaped hypodensity in the anterior spleen, suspicious for an infarct. E lectronically signed by Ramone Abarca MD on 10/09/2015 4:42 PM Xr Chest 1 View 10/14/2015 1. Unchanged appearance of bilateral airspace and nodular/cavity opacities. 2. Unchanged at least small bilateral pleural effusions. LEM LIST Principal Problem: Sepsis (HCC) Active Problems: Hyposmolality and/or hyponatremia MARCEL (acute kidney injury) (HCC) Leucocytosis Thrombocytopenia (HCC) Toxic metabolic encephalopathy Acute respiratory failure with hypoxia (HCC) Heroin abuse Methamphetamine abuse Tobacco abuse Acute septic pulmonary embolism (HCC) Acute infective endocarditis Moderate protein-calorie malnutrition (HCC) Hallucination, visual Severe protein-calorie malnutrition (HCC) ASSESSMENT & PLAN NEURO: Septic encephalopathy-Resolved. Continue seroquel and klonopin for anxiety/insomnia, fent patch Visual hallucinations--RESOLVED--Pt has been off Dex since 10 a.m., he has been appropri ate, calm, and apologetic to staff for his behavior over the past couple days; claims that h e had other hallucinations prior to this illness, ? Schizophrenia or illicit drug effects--P sych eval next day or two CV: Septic shock resolved. Tricuspid IE on septal leaflet : no ind for surgery, see ID PULM: Tachypnea: abg with primary resp alkalosis, does not seem to be caused by a new physica l disease based on normal and improved bicarbonate, cxr "stabilization", being on room air, improved tachyonea with ativan Pulmonary septic embolic from MSSA tricuspid valve: S/p pigtails removal right and left GI/NUTRITION: Severe malnutrition secondary to infectious process. Mild Transaminitis (resolved) likely sepsis related . Hepatitis serologies and HIV nega tive. SWALLOW EVAL improving, appreciate speech help. RENAL/LYTES: MARCEL. Anuric. Transitioned to conventional HD which is on hold since his kidneys seem to be recovering, will d/w nephrology.s/p renal biopsy 10/19 (ordered by Dr. Vora) UA with hematuria. C3 low. C4 wnl. Low C3 l Tunneled catheter placement and new PICC line placement (10/20) ID: MSSA Tricuspid Infective Endocarditis---ANITA 10/18 r/o any mitral valve involvement Followed by ID. Currently on Nafcillin HEME: Anemia-Multifactorial. Required blood transfusion 10/06 (2 units PRBC); 1 unit given 10/09 , 1u 10/13. Hb 6.1 10/16. Transfused 2 units PRBCs with appropriate response. Haptoglobin 201 (10/16); Continue to monitor, no e/o active bleeding--- hgb/hct 7.4/22.8 today, will repeat H &H at 1800 ENDO: Monitor BS. Goal 80-180. MUSC/SKIN: Vasculitis from IE/sepsis. 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 (no scd's d/t skin integrity of legs) VAP bundle: chlorhexadine oral care, HOB >30 degrees Disposition: May tx out in the next day or so Code Status: Full Code *Please bill 25 minutes of critical care time spent evaluating the patient, reviewing the d micahel and formulating a plan exclusive of all other procedures. YAIR GAMBINO 10/25/2015 8:59 AM Mini Dinh DO - 10/25/2015 7:11 AM PDTFormatting of this note might be different from the origin al. 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 male with significant history of tobacco and drug abuse using daily heroin and methamphetamine, also on Suboxone. He initially presented to [facility] for progressive weakness, lethargy, and ge neralized pain (mostly his chest, neck, back, knees, ankles and toes) for the past 7 days. Imer corbett noticed that his ankles and right knee were swollen but not warm or erythematous. Accordin g to his girlfriend, he has been feeling sick and febrile for the past week with poor PO int elisha. Yesterday, she noticed that he seemed like he was hallucinating and talking to himself. He was very weak today that she had to assist him to get into the car to go the the ED. Exam at OSH was significant for point tenderness at the area of the cervical spine and posi tive Kernig's sign. LP was performed to rule out meningitis. IV antibiotics started, ceftria xone 2 gm and vancomycin [address] head and C-spine x-ray performed, MRI attempted but patient decompensated and was intubated for respiratory failure and airway protection. Significant labs: Na 114 (1435 hrs), BUN 81, Crea 2.48, WBC 19.9, Hb 11.6, Plt 51, Tbili 3. 6, AST 188, ALT 155, LA 1.7. CSF: clear, colorless, WBC 0, RBC 3. Protein 31. Glucose 50. Culture with no growth to d ate Blood cultures are reported to be growing GPCs at [facility] Transferred to [facility] for further care. MRI of brain and spine carried out with limited findi ngs due to non-contrast study. Evaluated by Nephrology, acute renal failure attributed to hemodynamics. Evaluated by Dr. Bhardwaj from orthopedics: Does not think patient has ankle septic joint and does not recomme nd surgical intervention. Echocardiogram showed moderate size mobile vegetation attached to the septal tricuspid valv e leaflet, moderate tricuspid regurgitation, moderate pulmonary hypertension with mildly enl arged right ventricle. Evaluated by CTS, surgery not recommended On 10/01, extubated On 10/02, he was transferred out of the ICU. On 10/04, patient had worsening mental status and also became tachypneic. He became more hy ponatremic with worsening renal function. Bilateral moderate sized pleural effusions were n oted on chest CT scan. Bedside ultrasound with bilateral pleural effusion, R>L. Left minimal and without echogenic ity suggestive of infectious pleural effusion. Left effusion is moderate with fibrin strands concerning for complicated/infectious pleural effusion. Right pig tail chest tube placed wi th purulent drainage. Head CT scan negative On 10/05, started on hemodialysis On October 08, left chest tube was placed. Reintubated on October 11. On 10/16-, patient was febrile to 101.4F. Blood cultures were sent. On 10/18, echocardiogram showed possible mobile vegetation at the posterior mitral valve leaf let along with known tricuspid valve vegetation. Right IJ hemodialysis catheter was placed. PICC was discontinued. He complained of abdominal pain and tenderness; CT scan was done salomon t showed mid to distal ileum and right colitis. On 10/19, transesophageal echocardiogram reported as showing no mitral vegetation with large, mobile vegetation at the tricuspid valve and severe tricuspid regurgitation. CT surgery ree valuated the patient; proceeding with medical management. Kidney biopsy done. CC: Endocarditis Chart reviewed: No new events. Subjective The patient reports that he feels better. He is breathing without difficulty, denies any co ugh. No nausea, vomiting or abdominal pain. ROS No fever, chills sweats. No nausea, vomiting or diarrhea. No rashes or pruritis. No oral pa in. Scheduled Medications clonazePAM 1 mg Oral BID fentaNYL 1 patch Transdermal Q72H fentaNYL 50 mcg Intravenous Once furosemide 80 mg Intravenous 3 times daily gentamicin Topical Daily heparin (porcine) 5000 unit/0.5mL 5,000 Units Subcutaneous 3 times per day magnesium sulfate 2 g Intravenous Once metoprolol 12.5 mg Oral BID nafcillin 2 g Intravenous Q4H QUEtiapine 100 mg Oral QAM QUEtiapine 100 mg Oral QPM sodium chloride 10 mL Intravenous 2 times per day sodium chloride 10 mL Intravenous 2 times per day sodium citrate anticoagulant 4 % 6 mL Intracatheter Daily Continuous Infusions dexmedetomidine in NS 1.5 mcg/kg/hr (10/25/15 0342) sodium chloride (IV) 15 mL/hr at 10/14/15 1547 PRN Medications acetaminophen, albumin human, albuterol, aluminum-magnesium hydroxide-simethicone, benztrop ine mesylate, boygjzjyqjXPLWQ-flnxye-kamtdfyxz oral solution, haloperidol lactate, lip moist urizer, LORazepam, metoclopramide, ondansetron OR ondansetron, pancrelipase (Lip-Prot-Am yl)12,000 units, promethazine, simethicone, sodium chloride, white petrolatum OBJECTIVE Vital Signs: BP 122/83 mmHg | Pulse 101 | Temp(Src) 100.4 F (38 C) (Oral) | Resp 30 | Ht 1.702 m (5' 7") | Wt 67.9 kg (149 lb 11.1 oz) | BMI 23.44 kg/m2 | SpO2 95% Temp: [97.4 F (36.3 C)-100.4 F (38 C)] 100.4 F (38 C) (10/24 050) BP: (121-153)/(83-103) 122/83 mmHg (10/24 050) Heart Rate: [99-132] 101 (10/24 499) Resp: [24-55] 30 (10/24 499) SpO2: [83 %-100 %] 95 % (10/24 499) Weight: [67.9 kg (149 lb 11.1 oz)] 67.9 kg (149 lb 11.1 oz) (10/24 0430) Physical Exam Exam: Const: Vitals reviewed. No acute distress Skin: No rashes, no edema Right chest tunneled hemodialysis catheter site unremarkable ENT: No thrush. Lungs: CTAB, no rales or wheezes Heart: RRR, no murmur Abd: soft, NT, + bowel sounds DATA CBC: Lab Results Component Value Date WBC 7.48 10/25/2015 RBC 2.62* 10/25/2015 HGB 7.4* 10/25/2015 HCT 22.8* 10/25/2015 MCV 87.1 10/25/2015 MCH 28.0 10/25/2015 MCHC 32.2 10/25/2015 RDW 51.2 10/25/2015 PLT 501* 10/25/2015 MPV 7.0 10/25/2015 DIFFTYPE AUTOMATED 10/25/2015 WBC: Lab Results Component Value Date WBC 7.48 10/25/2015 NEUTABSMAN 10.38* 10/17/2015 NEUTROABS 5.72 10/25/2015 NEUTROMAN 86 10/17/2015 LYMPHOABS 0.84* 10/17/2015 LYMPHOMAN 7 10/17/2015 LYMPHSABS 0.86* 10/25/2015 LYMPHOPCT 11.49 10/25/2015 MONOABSMAN 0.48 10/17/2015 MONOMAN 4 10/17/2015 MONOPCT 8.30 10/25/2015 EOSINOABS 0.12 10/17/2015 EOSINOMAN 1 10/17/2015 EOSABS 0.18 10/25/2015 EOSPCT 2.35 10/25/2015 BASOSABS 0.11* 10/25/2015 BASOPCT 1.41 10/25/2015 PLTEST ADEQUATE 10/18/2015 BANDSPCT 2 10/17/2015 METAABS 0.26* 10/13/2015 METAPCT 1 10/13/2015 MYELOABS 0.17* 10/09/2015 MYELOPCT 1 10/09/2015 COMDIFF SLIDE SCANNED, AGREES WITH AUTOMATED RESULTS. 10/18/2015 CMP: Lab Results Component Value Date NA 141 10/25/2015 K 3.3* 10/25/2015 CL 105 10/25/2015 CO2 26 10/25/2015 ANIONGAP 13 10/25/2015 GLUF 106* 10/25/2015 BUN 25 10/25/2015 CREATININE 2.0* 10/25/2015 BCR 13 10/25/2015 CA 7.1* 10/25/2015 PROT 5.8* 10/22/2015 ALB 1.2* 10/22/2015 GLOB 4.6 10/19/2015 BILITOT 1.5 10/22/2015 ALP 67 10/22/2015 AST 22 10/22/2015 ALT 18 10/22/2015 EGFR 41* 10/25/2015 Microbiology data: 10/13 C. difficile PCR negative 10/09 C. difficile negative 10/11 HSV oral culture negative 10/05 pleural fluid culture negative 09/30 tracheal aspirate culture grew MSSA 10/17 blood cultures with no growth to date 09/30 blood cultures with no growth 10/18 catheter tip culture with no growth to date Medical imaging: This morning's CXR was viewed in PACS and shows decreasing multifocal cons olidation, small bilateral pleural effusions, right greater than left. Radiology report pend ing. 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 -CT scan performed on October 08 confirmed continued pleural effusion on the left, chest tube placed and d/c'd. CXR shows stable findings. -On 10/17, he was febrile so blood cultures repeated on 10/17 with no growth to date. TTE s howed tricuspid valve vegetation and a new mitral valve vegetation. Transesophageal echocard iogram showed no MV vegetation; Dr. Arias, [facility] recommends to continue medical management. Right upper extremity PICC d/c'd on 10/18, catheter tip culture with no growth. Right IJ hemo dialysis catheter replaced; has tunneled HD cath placed on 10/20. New PICC placed on 10/20 -continue IV nafcillin, day #24 of 42 Acute hypoxemic respiratory failure -Reintubated on 10/11 and extubated on October 21. Will monitor. Hallucinations Not likely to be secondary to nafcillin, despite maximal dosing. Will monitor and if ment al status remains an issue, we could consider giving a single dose of daptomycin and holding nafcillin for 24 hours to see whether that helps. MARCEL -No adjustment needed for nafcillin. On dialysis. Renal biopsy done on 10/19, results pendi ng Abnormal LFTs -Resolved. Petechial/purpuric rash -Suspected ecthyma. Improving. Skin care. IV drug use -Not a candidate for outpatient IV antibiotics. HIV negative. Addendum: Informed by PICC line nurse that the patient pulled his PICC line with his teeth overnight. He has reportedly also been biting at other dressings, with the assumption that they contai n fentanyl. He has been approved by nephrology to use his dialysis catheter for his IV antib iotics, but it does need to be removed by tomorrow. Okay to place the PICC line. Code Status: Full Code CHRIS SWANN DO 10/25/2015 onversion Transaction , Provider Unknown - 10/24/2015 10:55 PM PDT Nurse Progress Note by Lulú Salas RN at 10/24/152254 Author: Lulú Salas RN Service: (none) Author Type: Registered Nurse Filed: 10/24/152254 Date of Service: 10/24/152254 Status: Signed Bisque Brusher: Lulú Salas RN (Registered Nurse) aware of critical lab values, see MAR for replacements. onver patti Transaction, Provider Unknown - 10/24/2015 8:09 PM PDT Nurse Progress Note by Mayelin Milton RN at 10/24/152008 Author: Mayelin Milton RN Service: (none) Author Type: Registered Nurse Filed: 10/24/152013 Date of Service: 10/24/152008 Status: Signed Bisque Brusher: Mayelin Milton RN (Registered Nurse) 0800 Patient alert and oriented denies pain. 899 Patient began to be agitated with hallucination. The patient ripped off gown and woun d dressing attempting to eat them because he stated "I need drugs these are drugs I want bushra tyler". At this time the patient was not following commands but would answer LOC questions. H e was no longer oriented to time and place. Still denies pain. 1214 Patient had another episode with similar symptoms from above. Patient was also attem pting to get at the fentanyl patch on his back and "eat it for drugs". Patient denies havin g pain and states "I am an addict and I just need drugs". 1400 Restraints ordered for similar episode and patient harming himself by scratching and t rying to hit himself with the railing. Padded bed rails, head and foot boards. 1715 Came into room to find sitter helping patient while in restraints pulled out PICC line in upper arm. Notified lead RN and physician. Delfino Urban MD - 10/24/2015 2:38 PM PDT Progress Notes by Delfino Vora MD at 10/24/15 1438 Author: Delfino Vora MD Service: Nephrology Author Type: Physician Filed: 10/24/15 1439 Date of Service: 10/24/158 Status: Signed Bisque Brusher: Delfino Vora MD (Physician) [facility] Service: Nephrology Renal Consult Progress Note Yang Ridley [id number] Hospital Day: LOS: 23 days SUBJECTIVE Patient Summary: Patient seen and examined. Scheduled Medications clonazePAM 1 mg Oral BID fentaNYL 1 patch Transdermal Q72H fentaNYL 50 mcg Intravenous Once furosemide 80 mg Intravenous 3 times daily gentamicin Topical Daily heparin (porcine) 5000 unit/0.5mL 5,000 Units Subcutaneous 3 times per day nafcillin 2 g Intravenous Q4H QUEtiapine 100 mg Oral QAM QUEtiapine 100 mg Oral QPM sodium chloride 10 mL Intravenous 2 times per day sodium chloride 10 mL Intravenous 2 times per day sodium citrate anticoagulant 4 % 6 mL Intracatheter Daily Continuous Infusions dexmedetomidine in NS 1.5 mcg/kg/hr (10/24/15 1415) sodium chloride (IV) 15 mL/hr at 10/14/15 1547 PRN Medications acetaminophen, albumin human, albuterol, aluminum-magnesium hydroxide-simethicone, diphenhy qdUXCHL-otldac-escbgcfnc oral solution, lip moisturizer, LORazepam, metoclopramide, ondanset eliana OR ondansetron, pancrelipase (Jyt-Veis-Dkna)12,000 units, promethazine, simethicone, sodium chloride, white petrolatum OBJECTIVE Vital Signs: BP 145/103 mmHg | Pulse 110 | Temp(Src) 98.4 F (36.9 C) (Axillary) | Resp 45 | Ht 1.702 m (5' 7") | Wt 67.1 kg (147 lb 14.9 oz) | BMI 23.16 kg/m2 | SpO2 95% Intake/Output Summary (Last 24 hours) at 10/24/15 1438 Last data filed at 10/24/15 1150 Gross per 24 hour Intake 1405 ml Output 2855 ml Net -1450 ml Gen: NAD, A&Ox3 Neck: No JVD Pulm: CTA b/l, good air movement, no w/r/r CV: RRR, nl S1S2, no rub Abd: Soft, NT/ND, NABS Ext: no c/c/e Access: rt ij pc DATA Recent Labs Lab 10/24/1531110/23/1532310/22/1540310/21/15 035 CREATININE 2.4* 2.6* 2.1* 3.0* Recent Labs Lab 10/24/15 1152 10/24/1531110/23/1532310/22/15 0404 10/21/15 035 NA -- 139 141 140 137 K 3.0* 2.7* 3.1* 3.5 3.6 CL -- 103 107 106 102 CO2 -- 25 22* 20* 20* BUN -- 30* 30* 24 38* CA -- 7.5* 7.7* 7.7* 7.6* PHOS -- 4.9* 4.8 4.2 7.7* MG 1.7 1.2* 1.5* 1.7 1.8 Recent Labs Lab 10/22/1540310/21/15 0358 10/20/15 0458 10/19/15 0517 10/19/15 045 ALB 1.2* 1.2* 1.3* -- 1.3* ALP 67 66 72 -- 73 AST 22 20 24 -- 29 ALT 18 20 20 -- 22 INR -- -- -- 1.1 DUPLICATE ORDER Recent Labs Lab 10/24/15 03110/23/15 03210/22/15 04010/21/15 035 WBC 7.80 7.93 9.29 7.96 RBC 2.70* 2.66* 2.85* 2.40* HGB 7.7* 7.8* 8.3* 6.9* HCT 23.5* 23.4* 25.4* 21.3* PLT 517* 457* 407* 323 MCV 87.0 87.9 88.9 89.1 RDW 49.4 50.8 51.6 53.4* Recent Labs Lab 10/19/15 0517 10/19/15 0452 INR 1.1 DUPLICATE ORDER PROBLEM LIST Principal Problem: Sepsis (HCC) Active Problems: Hyposmolality and/or hyponatremia MARCEL (acute kidney injury) (HCC) Leucocytosis Thrombocytopenia (HCC) Toxic metabolic encephalopathy Acute respiratory failure with hypoxia (HCC) Heroin abuse Methamphetamine abuse Tobacco abuse Acute septic pulmonary embolism (HCC) Acute infective endocarditis Moderate protein-calorie malnutrition (HCC) Hallucination, visual Severe protein-calorie malnutrition (HCC) ASSESSMENT & PLAN The patient is a 30 y.o. male with significant history of tobacco and drug abuse using jennifer y heroin and methamphetamine, also on Suboxone. He initially presented to [facility] for progressive weakness, lethargy, and generalized pain for the past 7 days. He noti edy that his ankles and right knee were swollen but not warm or erythematous. According to h is girlfriend, he has been feeling sick and febrile for the past week with poor oral intake. LP was performed to rule out meningitis. IV antibiotics started, ceftriaxone 2 gm and vanco mycin [address] head and C-spine x-ray performed, patient decompensated and was intubat ed for respiratory failure and airway protection and admitted to the ICU. Significant labs on initial presentation : Na 114 (1435 hrs), BUN 81, Crea 2.48, Over next 12-24 hrs, his sodium abruptly improved to a peak of126 by 6 AM on 10/01, so c ounter measures were started to avoid over correction. Patient received DDAVP X2 X 2 MCG AT 4 AND 8 AM ON 10/01 and is on D5W AT 200 ML/HR. He has never been hospitalized because of low sodium. He has never been symptomatic because of low sodium. There are no herbal preparation intake; he does not have hx of liver cirrhos is. He does not have hx of CHF, hypothyroidism or adrenal insufficiency.There is no hx of ch ronic diarrhea and no N/V. ARF Differential includes, post infectious vs atn from sepsis, made 1000ml of urine, kidney bi opsy showing atn Hold of dialysis today, will continue him on lasix 80 mg iv tid, replace potassium, can r emove pc daily weights and strict I/O's Diet should be 0.8 gm/kg protein, 1 gm PO4, 2 gm Na, and 2 gm K restricted diet. medications to be dosed for estimated eGFR Of 15 NSAIDs (including FRASER 2 inhibitors) should not be used. Magnesium and aluminum containing antacids should be avoided. Magnesium or phosphorus containing laxatives should be avoided. Code Status: Full Code Delfino Vora MD 10/24/2015 2:38 PM Mercy Dinh DO - 10/24/2015 6:54 AM PDTFormatting of this note might be different from the meir lLi Progress Notes by Chris Swann DO at 10/24/15 0654 Author: Chris Swann DO Service: (none) Author Type: Physician Filed: 10/24/1508 Date of Service: 10/24/15653 Status: Signed Bisque Brusher: Chris Swann DO (Physician) [facility] Service: Infectious Disease Progress Note Hospital Day: LOS: 23 days Post-Op Day: * No surgery found * SUBJECTIVE Patient Summary: CC: Fever, chest pain and altered mental status From [employer]'s admission note on 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 male with significant history of tobacco and drug abuse using daily heroin and methamphetamine, also on Suboxone. He initially presented to [facility] for progressive weakness, lethargy, and ge neralized pain (mostly his chest, neck, back, knees, ankles and toes) for the past 7 days. H e noticed that his ankles and right knee were swollen but not warm or erythematous. Nessa barnett to his girlfriend, he has been feeling sick and febrile for the past week with poor PO int elisha. Yesterday, she noticed that he seemed like he was hallucinating and talking to himself. He was very weak today that she had to assist him to get into the car to go the the ED. Exam at OSH was significant for point tenderness at the area of the cervical spine and posi tive Kernig's sign. LP was performed to rule out meningitis. IV antibiotics started, ceftria xone 2 gm and vancomycin [address] head and C-spine x-ray performed, MRI attempted but patient decompensated and was intubated for respiratory failure and airway protection. Significant labs: Na 114 (1435 hrs), BUN 81, Crea 2.48, WBC 19.9, Hb 11.6, Plt 51, Tbili 3. 6, AST 188, ALT 155, LA 1.7. CSF: clear, colorless, WBC 0, RBC 3. Protein 31. Glucose 50. Culture with no growth to d ate Blood cultures are reported to be growing GPCs at [place] Transferred to [facility] for further care. MRI of brain and spine carried out with limited findi ngs due to non-contrast study. Evaluated by Nephrology, acute renal failure attributed to hemodynamics. Evaluated by Dr. Bhardwaj from orthopedics: Does not think patient has ankle septic joint and does not recomme nd surgical intervention. Echocardiogram showed moderate size mobile vegetation attached to the septal tricuspid valv e leaflet, moderate tricuspid regurgitation, moderate pulmonary hypertension with mildly enl arged right ventricle. Evaluated by CTS, surgery not recommended On 10/01, extubated On 10/02, he was transferred out of the ICU. On 10/04, patient had worsening mental status and also became tachypneic. He became more hy ponatremic with worsening renal function. Bilateral moderate sized pleural effusions were n oted on chest CT scan. Bedside ultrasound with bilateral pleural effusion, R>L. Left minimal and without echogenic ity suggestive of infectious pleural effusion. Left effusion is moderate with fibrin strands concerning for complicated/infectious pleural effusion. Right pig tail chest tube placed wi th purulent drainage. Head CT scan negative On 10/05, started on hemodialysis On October 08, left chest tube was placed. Reintubated on October 11. On 10/16-, patient was febrile to 101.4F. Blood cultures were sent. On 10/18, echocardiogram showed possible mobile vegetation at the posterior mitral valve leaf let along with known tricuspid valve vegetation. Right IJ hemodialysis catheter was placed. PICC was discontinued. He complained of abdominal pain and tenderness; CT scan was done salomon t showed mid to distal ileum and right colitis. On 10/19, transesophageal echocardiogram reported as showing no mitral vegetation with large, mobile vegetation at the tricuspid valve and severe tricuspid regurgitation. CT surgery ree valuated the patient; proceeding with medical management. Kidney biopsy done. CC: Endocarditis Chart reviewed: No new events. Subjective The patient reports that he feels better. He is breathing without difficulty, denies any co ugh. Nursing staff indicates that he has had some hallucinations. ROS No fever, chills sweats. No nausea, vomiting or diarrhea. No rashes or pruritis. No oral pa in. Scheduled Medications clonazePAM 1 mg Oral BID fentaNYL 1 patch Transdermal Q72H furosemide 80 mg Intravenous 3 times daily gentamicin Topical Daily heparin (porcine) 5000 unit/0.5mL 5,000 Units Subcutaneous 3 times per day magnesium sulfate 2 g Intravenous Once nafcillin 2 g Intravenous Q4H potassium chloride 60 mEq Intravenous Once QUEtiapine 100 mg Oral QAM QUEtiapine 100 mg Oral QPM sodium chloride 10 mL Intravenous 2 times per day sodium chloride 10 mL Intravenous 2 times per day sodium citrate anticoagulant 4 % 6 mL Intracatheter Daily Continuous Infusions dexmedetomidine in NS 1.3 mcg/kg/hr (10/24/15 0410) sodium chloride (IV) 15 mL/hr at 10/14/15 1547 PRN Medications acetaminophen, albumin human, albuterol, aluminum-magnesium hydroxide-simethicone, diphenhy thQMKXI-tdpfbp-kayhzymgj oral solution, lip moisturizer, LORazepam, metoclopramide, ondanset eliana OR ondansetron, pancrelipase (Plx-Grjh-Ngov)12,000 units, promethazine, simethicone, sodium chloride, white petrolatum OBJECTIVE Vital Signs: BP 129/85 mmHg | Pulse 100 | Temp(Src) 98.6 F (37 C) (Oral) | Resp 39 | Ht 1.702 m (5' 7") | Wt 67.1 kg (147 lb 14.9 oz) | BMI 23.16 kg/m2 | SpO2 98% Temp: [97 F (36.1 C)-98.6 F (37 C)] 98.6 F (37 C) (10/23 0400) BP: (108-156)/(79-109) 129/85 mmHg (10/23 599) Heart Rate: [91-118] 100 (10/23 599) Resp: [7-44] 39 (10/23 599) SpO2: [95 %-100 %] 98 % (10/23 599) Weight: [67.1 kg (147 lb 14.9 oz)] 67.1 kg (147 lb 14.9 oz) (10/23 0355) Physical Exam Exam: Const: Vitals reviewed. No acute distress Skin: No rashes, no edema Left arm PICC line site unremarkable. Right chest tunneled hemodialysis catheter site unrem arkable ENT: No thrush. Lungs: CTAB, no rales or wheezes Heart: RRR, no murmur Abd: soft, NT, + bowel sounds Musculoskeletal: No gross deformity or active arthritis DATA CBC: Lab Results Component Value Date WBC 7.80 10/24/2015 RBC 2.70* 10/24/2015 HGB 7.7* 10/24/2015 HCT 23.5* 10/24/2015 MCV 87.0 10/24/2015 MCH 28.6 10/24/2015 MCHC 32.9 10/24/2015 RDW 49.4 10/24/2015 PLT 517* 10/24/2015 MPV 6.9 10/24/2015 DIFFTYPE AUTOMATED 10/24/2015 WBC: Lab Results Component Value Date WBC 7.80 10/24/2015 NEUTABSMAN 10.38* 10/17/2015 NEUTROABS 5.71 10/24/2015 NEUTROMAN 86 10/17/2015 LYMPHOABS 0.84* 10/17/2015 LYMPHOMAN 7 10/17/2015 LYMPHSABS 0.91* 10/24/2015 LYMPHOPCT 11.60 10/24/2015 MONOABSMAN 0.48 10/17/2015 MONOMAN 4 10/17/2015 MONOPCT 8.77 10/24/2015 EOSINOABS 0.12 10/17/2015 EOSINOMAN 1 10/17/2015 EOSABS 0.42 10/24/2015 EOSPCT 5.44 10/24/2015 BASOSABS 0.08 10/24/2015 BASOPCT 1.00 10/24/2015 PLTEST ADEQUATE 10/18/2015 BANDSPCT 2 10/17/2015 METAABS 0.26* 10/13/2015 METAPCT 1 10/13/2015 MYELOABS 0.17* 10/09/2015 MYELOPCT 1 10/09/2015 COMDIFF SLIDE SCANNED, AGREES WITH AUTOMATED RESULTS. 10/18/2015 CMP: Lab Results Component Value Date NA 139 10/24/2015 K 2.7* 10/24/2015 CL 103 10/24/2015 CO2 25 10/24/2015 ANIONGAP 14 10/24/2015 GLUF 100* 10/24/2015 BUN 30* 10/24/2015 CREATININE 2.4* 10/24/2015 BCR 13 10/24/2015 CA 7.5* 10/24/2015 PROT 5.8* 10/22/2015 ALB 1.2* 10/22/2015 GLOB 4.6 10/19/2015 BILITOT 1.5 10/22/2015 ALP 67 10/22/2015 AST 22 10/22/2015 ALT 18 10/22/2015 EGFR 34* 10/24/2015 Microbiology data: 10/13 C. difficile PCR negative 10/09 C. difficile negative 10/11 HSV oral culture negative 10/05 pleural fluid culture negative 09/30 tracheal aspirate culture grew MSSA 10/17 blood cultures with no growth to date 09/30 blood cultures with no growth 10/18 catheter tip culture with no growth to date Medical imaging: This morning's CXR was viewed in PACS and shows decreasing multifocal cons olidation, small bilateral pleural effusions, right greater than left. Radiology report pend ing. 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 -CT scan performed on October 08 confirmed continued pleural effusion on the left, chest tube placed and d/c'd. CXR shows stable findings. -On 10/17, he was febrile so blood cultures repeated on 10/17 with no growth to date. TTE s howed tricuspid valve vegetation and a new mitral valve vegetation. Transesophageal echocard iogram showed no MV vegetation; Dr. Arias, [facility] recommends to continue medical management. Right upper extremity PICC d/c'd on 10/18, catheter tip culture with no growth. Right IJ hemo dialysis catheter replaced; has tunneled HD cath placed on 10/20. New PICC placed on 10/20 -continue IV nafcillin, day #23 of 42, fever curve and leukocytosis finally improving. Acute hypoxemic respiratory failure -Reintubated on 10/11 and extubated on October 21. Will monitor. Hallucinations Not likely to be secondary to nafcillin, despite maximal dosing. This is much more common with standard penicillin and carpapenems. Will monitor and if mental status remains an issu e, we could consider holding nafcillin for 12 hours to see whether that makes a difference, otherwise I would rather continue nafcillin due to the difficulty we have had getting his en docarditis under control. MARCEL -No adjustment needed for nafcillin. On dialysis. Renal biopsy done on 10/19, results pendi ng Abnormal LFTs -Resolved. Petechial/purpuric rash -Suspected ecthyma. Improving. Skin care. IV drug use -Not a candidate for outpatient IV antibiotics. HIV negative. Code Status: Full Code CHRIS SWANN DO 10/24/2015 Melchor Mckeon MD - 10/24/2015 12:26 AM PDT Progress Notes by Melchor Joseph MD at 10/24/15 0026 Author: Melchor Joseph MD Service: Auto Dealer Author Type: Physician Filed: 10/24/15 0642 Date of Service: 10/24/1525 Status: Signed Bisque Brusher: Melchor Joseph MD (Physician) [facility] Service: Auto Dealer Progress Note Yang Keyana 30 y.o. Hospital Day: LOS: 23 days Post-Op Day: * No surgery found * Consulting Physicians Treatment Team: Consulting Physician: Chris Swann DO Consulting Physician: Renetta Buck MD Consulting Physician: Gonzalez Bhardwaj MD Surgeon: Blanca Arias MD Consulting Physician: Blanca Arias MD Consulting Physician: Femi Vaughan MD Admitting Provider: Carly Thomas DO SUBJECTIVE Patient Summary: The patient is a 30 y.o. male with significant history of tobacco an d drug abuse using daily heroin and methamphetamine, also on Suboxone. He initially presen latasha to [facility] for progressive weakness, lethargy, and generalized pain (most ly his chest, neck, back, knees, ankles and toes) for 7 days. According to his girlfriend, he was feeling sick and febrile for a week with poor PO intake; she also noticed that his an kles and right knee were swollen but not warm or erythematous, and he seemed to be "halluinc ating and talking to himself". Exam at OSH was significant for point tenderness at the area of the cervical spine and posi tive Kernig's sign. LP was performed to rule out meningitis. IV antibiotics started, ceftria xone 2 gm and vancomycin [address] head and C-spine x-ray performed, MRI attempted but patient decompensated and was intubated for respiratory failure and airway protection. Significant labs: Na 114 (1435 hrs), BUN 81, Crea 2.48, WBC 19.9, Hb 11.6, Plt 51, Tbili 3. 6, AST 188, ALT 155, LA 1.7. CSF: clear, colorless, WBC 0, RBC 3. Transferred to [facility] for further care. Timeline: Evaluated by Nephrology, acute renal failure attributed to hemodynamics. Evaluated by Dr. Bhardwaj from orthopedics: Does not think patient has ankle septic joint and does not re commend surgical intervention. Echocardiogram showed moderate size mobile vegetation attached to the septal tricuspid v alve leaflet, moderate tricuspid regurgitation, moderate pulmonary hypertension with mildly enlarged right ventricle. Evaluated by CTS, surgery not recommended On 10/01, extubated. MRI spine w/o evidence abscess On 10/02, he was transferred out of the ICU. 10/04-Transferred to ICU for worsening mental status, drop of Na from 122 to 117 and wors ening renal function 10/05-HD line placed, started on dialysis. Right pigtail chest tube with drainage of 1400 ml serosanguineous exudate 10/06-Dialysis session. Improved encephalopathy. Anxiety requiring high dose precedex. 10/07-Right pigtail chest catheter removed 10/08-dialysis again today, 3L removed; Cxr with bilateral effusions which appear to be a bout the same as yesterday; will repeat CT chest to evaluate further; continues to be anxiou s, c/o pain 10/09-dialysis again today, 3.5L removed, now with left pleural chest catheter placed ove rnight, immediately drained 850cc, only 50cc during the day today; intermittent fevers, tach ycardia persists; add seroquel BID 10/10--dialysis again today with anticipated 2.5L removal; L pleural chest catheter remov ed, f/u Cxr in 1 hour; if no issues post dialysis and f/u cxr will transfer to acute care be d 10/11--worsening hypoxia, tachypnea, and associated tachycardia so electively re-intubate d 10/12--restarted Levophed during dialysis today; fio2 weaned to 30%; HSV oral swab negati ve 10/13-- rested comfortably overnight, temps better, restarted tube feeds 10/14-- No acute events. HD today then attempt SBT 10/15- Hodling extubation 10/16-Holding extubation, transfused 2 units PRBC 10/17-Febrile, BC sent. Echo with new vegetation on anterior leaflet of mitral valve 10/18--ANITA (per Dr Kimble) did NOT show vegetation of the mitral valve; will proceed with kidney biopsy today and tunneled catheter placement tomorrow; repeat cx's w/o growth so far 10/19--Kidney biopsy today; Ketamine added for sedation. Evaluated by CT surgery; no plans for surgery at this time 10/20--Tunneled cath placed; extubated to nasal canula will attempt, picc line placed, freddie neled cath placed. 8-4: HD held, given 100 mg iv lasix trial as he started to void, failed swallow eval Overnight events: trying to wean off dex and use more bzd , still hallucinating, sitter at bedside, room air but tachypneic OBJECTIVE VITAL SIGNS Temp: [97 F (36.1 C)-98.5 F (36.9 C)] 97 F (36.1 C) Heart Rate: [77-118] 109 Resp: [7-36] 31 BP: (108-160)/(75-109) 156/95 mmHg Intake/Output Summary (Last 24 hours) at 10/24/15 0026 Last data filed at 10/24/15 0025 Gross per 24 hour Intake 1409 ml Output 2450 ml Net -1041 ml EXAM GEN: on room air, , hoarse voice, tachypneic NEURO: PERRLA, no facial asymmetry, moves all extremities well, non focal, still with gene ralized weakness HEENT: sclerae clear, nonicteric, oral mmm, NECK: supple, trachea midline HEART: Sinus tachycardia 100's to 110's, S1/S2, 2/6 systolic murmur LUNGS:coarse bilat, no w, symmetric chest expansion, slightly tachypneic ABD: soft, non-tender, BS hypoactive, EXTR: 2+ edema all extremities, no clubbing or cyanosis SKIN: diffuse purpuric palpable rash bilateral anterior lower extremities, also hand and fe et. Blisters noted within rash. Dressings to bilat elbows CDI. No e/o nec fasc or myonecr osis at the elbows anteriorly. Those lesions are improving LINES/TUBES: picc line 8-3 Right tunneled cath 8-3 DATA Recent Labs Lab 10/23/15 0324 10/22/15 0404 10/21/15 0358 10/18/15 0511 10/17/15 1002 10/17/15 0335 WBC 7.93 9.29 7.96 < > 11.38* 12.06* 10.13 RBC 2.66* 2.85* 2.40* < > 2.91* 3.12* 2.10* HGB 7.8* 8.3* 6.9* < > 8.3* 8.9* 6.1* HCT 23.4* 25.4* 21.3* < > 25.7* 27.7* 19.0* MCV 87.9 88.9 89.1 < > 88.3 88.8 90.3 MCH 29.2 29.2 28.8 < > 28.7 28.6 29.1 MCHC 33.2 32.8 32.3 < > 32.5 32.2 32.3 RDW 50.8 51.6 53.4* < > 52.5 48.6 55.1* PLT 457* 407* 323 < > 204 203 186 MPV 7.3 7.4 7.5 < > 7.8 8.4 8.3 BANDSABS -- -- -- -- -- 0.24* -- NEUTROABS 5.99 7.42* 5.97 < > 9.90* -- 8.54* LYMPHSABS 0.82* 0.74* 0.77* < > 0.51* -- 0.68* MONOSABS 0.67 0.71 0.74 < > 0.64 -- 0.63 BASOSABS 0.12* 0.08 0.06 < > 0.11* -- 0.05 EOSABS 0.34 0.35 0.41 < > 0.22 -- 0.22 MORPH -- -- -- -- NORMAL PLT MORPH 1+ NORMAL PLT MORPH < > = values in this interval not displayed. Recent Labs Lab 10/23/15 0324 10/22/15 0404 10/21/15 0358 10/20/15 0458 10/19/15 0452 NA 141 140 137 137 131* K 3.1* 3.5 3.6 3.5 3.3* CL 107 106 102 102 98* CO2 22* 20* 20* 19* 18* ANIONGAP 15 18 19 20 19 GLUF 110* 91 104* 85 92 BUN 30* 24 38* 25 58* CREATININE 2.6* 2.1* 3.0* 2.5* 4.1* BCR 12 11 13 10 14 CA 7.7* 7.7* 7.6* 7.5* 7.4* ALB -- 1.2* 1.2* 1.3* 1.3* GLOB -- -- -- -- 4.6 AG -- -- -- -- 0.3* PROT -- 5.8* 5.7* 5.8* 5.9* BILITOT -- 1.5 1.7* 1.3 1.7* ALT -- 18 20 20 22 AST -- 22 20 24 29 EGFR 31* 39* 26* 32* 18* PHOS 4.8 4.2 7.7* 5.1* 7.1* MG 1.5* 1.7 1.8 2.0 2.0 Recent Labs Lab 10/19/15 0517 10/19/15 0452 INR 1.[address] ABDOMEN AND PELVIS EXAM DATE: 10/19/2015 03:42 AM. CLINICAL HISTORY: Septic emboli, abdominal distention and pain COMPARISONS: 10/05/2015. TECHNIQUE: Routine axial helical CT imaging was performed through the abdomen and pelvis wi th oral but without IV contrast. Reconstructions: Coronal and sagittal. In accordance with CT protocol optimization, one or more of the following dose reduction te chniques were utilized for this exam: automated exposure control, adjustment of mA and/or KV based on patient size, or use of iterative reconstructive technique. FINDINGS: Lung Bases: Decreasing loculated pleural effusions and multifocal airspace opacities again noted, consistent with septic emboli. Noncontrast abdominal organs: Grossly stable and unremarkable noncontrast appearance to the liver, gallbladder, pancreas, adrenals, kidneys, and spleen. Peritoneal Cavity: Long segment of wall thickening involving the mid to distal ileum and ri ght colon. Mild diffuse mesenteric edema and free fluid. No gross free air. No obstruction. Pelvic Organs: No bladder stones or wall thickening. Noncontrast images of the visualized p elvic organs are unremarkable. Vasculature: Unremarkable. Other: Severe generalized anasarca. IMPRESSION: 1. Long segment of wall thickening involving the mid to distal ileum and right colon. Thi s can be seen with infectious, inflammatory, or ischemic enteritis. 2. Mild diffuse mesenteric edema and free fluid. This is likely mostly secondary to patient 's underlying severe anasarca. 3. Decreasing pleural effusions and evidence of septic pulmonary emboli and at the lung bas es. Ct Chest Without Contrast 10/09/2015 1. Significant interval decrease in size of right pleural effusion, now small. Moderate to large left pleural effusion appears slightly decreased in size. Associated cons olidative opacity seen involving the lower lobes, likely representing pneumonia or atelectas is. 2. Essentially unchanged appearance of numerous bilateral cavitary lesions or airspace opacities 3. Wedge-shaped hypodensity in the anterior spleen, suspicious for an infarct. E lectronically signed by Ramone Abarca MD on 10/09/2015 4:42 PM Xr Chest 1 View 10/14/2015 1. Unchanged appearance of bilateral airspace and nodular/cavity opacities. 2. Unchanged at least small bilateral pleural effusions. LEM LIST Principal Problem: Sepsis (HCC) Active Problems: Hyposmolality and/or hyponatremia MARCEL (acute kidney injury) (HCC) Leucocytosis Thrombocytopenia (HCC) Toxic metabolic encephalopathy Acute respiratory failure with hypoxia (HCC) Heroin abuse Methamphetamine abuse Tobacco abuse Acute septic pulmonary embolism (HCC) Acute infective endocarditis Moderate protein-calorie malnutrition (HCC) Hallucination, visual Severe protein-calorie malnutrition (HCC) ASSESSMENT & PLAN NEURO: Septic encephalopathy-Resolved. Continue seroquel and klonopin for anxiety/insomnia, fent patch Visual hallucinations : ketamine off, everett likely other drugs, no tactile or auditory wills llucinations; claims that he had sometimes other hallucinations prior to this illness, ? Maurice izophrenia or illicit drug effects; if persist will c/s psychiatry; try to wean off dex, use more ativan if needed CV: Septic shock resolved. Tricuspid IE on septal leaflet : no ind for surgery, see ID PULM: Tachypnea: abg with primary resp alkalosis, does not seem to be caused by a new physica l disease based on normal and improved bicarbonate, cxr "stabilization", being on room air, improved tachyonea with ativan Pulmonary septic embolic from MSSA tricuspid valve: S/p pigtails removal right and left GI/NUTRITION: Severe malnutrition secondary to infectious process. Mild Transaminitis (resolved) likely sepsis related . Hepatitis serologies and HIV nega tive. SWALLOW EVAL improving, appreciate speech help. RENAL/LYTES: MARCEL. Anuric. Transitioned to conventional HD which is on hold since his kidneys seem to be recovering, will d/w nephrology.s/p renal biopsy 10/19 (ordered by Dr. Vora) UA with hematuria. C3 low. C4 wnl. Low C3 l Tunneled catheter placement and new PICC line placement (10/20) ID: MSSA Tricuspid Infective Endocarditis---ANITA 10/18 r/o any mitral valve involvement Followed by ID. Currently on Nafcillin HEME: Anemia-Multifactorial. Required blood transfusion 10/06 (2 units PRBC); 1 unit given 10/09 , 1u 10/13. Hb 6.1 10/16. Transfused 2 units PRBCs with appropriate response. Haptoglobin 201 (10/16); w Continue to monitor, no e/o active bleeding, haptoglobin wnl ENDO: Monitor BS. Goal 80-180. MUSC/SKIN: Vasculitis from IE/sepsis. Pt with purpura rash with blistering and bullae. Interphalangeal creases bilaterally with black wound bed Recs per cinder pit worker Early mobility protocol PROPHYLAXIS: Stress ulcer prophylaxis: n/a DVT prophylaxis: Heparin SC, foot pumps. (no scd's d/t skin integrity of legs) VAP bundle: chlorhexadine oral care, HOB >30 degrees Disposition: May tx out in the next day or so Code Status: Full Code *Please bill 25 minutes of critical care time spent evaluating the patient, reviewing the d michael and formulating a plan exclusive of all other procedures. MELCHOR JOSEPH MD 10/24/2015 12:26 AM onversion Moses saction, Provider Unknown - 10/23/2015 4:34 PM PDTFormatting of this note might be differen t from the original. Progress Notes by Dorota Hawthorne RN at 10/23/15 1634 Author: Dorota Hawthorne RN Service: (none) Author Type: Registered Nurse Filed: 10/23/15 1640 Date of Service: 10/23/154 Status: Signed Bisque Brusher: Dorota Hawthorne RN (Registered Nurse) Pt anxious, experiencing visual and auditory hallucinations. Pt believes he is on a boat, s urrounded by a force or some kind. More confused at this time that he was earlier in the [facility] ft, unable to tell where he is or why he is here. Reoriented pt to both. Talked with pt for a while in an effort to calm him, pt began hitting himself in the face, explained to pt not to do that, we want to keep him safe, bolus of 0.3 dex given. Sitter remains at bedside. onver patti Transaction, Provider Unknown - 10/23/2015 4:26 PM PDT Nurse Progress Note by Frida Mott RN at 10/23/15 1626 Author: Frida Mott RN Service: Wound/Ostomy Care Author Type: Registered Nurse Filed: 10/23/15 1627 Date of Service: 10/23/15 1626 Status: Signed Bisque Brusher: Frida Mott RN (Registered Nurse) Wound care came to see pt today to follow up on the pus filled bullae that were on his bila teral lower legs. All wounds are dry and scabbed now with no s/s of infection. Ok to leave o pen to air. Frida Mott RN 10/23/2015 4:27 PM onver patti Transaction, Provider Unknown - 10/23/2015 1:03 PM PDT Nurse Progress Note by Dorota Hawthorne RN at 10/23/15 1303 Author: Dorota Hawthorne RN Service: (none) Author Type: Registered Nurse Filed: 10/23/15 1312 Date of Service: 10/23/15 1303 Status: Signed Bisque Brusher: Dorota Hawthorne RN (Registered Nurse) In to check on pt's tele alarm at 1235. Found pt on floor laying on his right side next to his bed, incontinent of stool. Pt unable to verbalize why he got up or what his need was. Ca ll light was still on bed. Cleaned up pt, changed sheets and assisted pt back into bed. Pt d enied pain when back on bed. Small reddened area noted on pt's right hip, picture taken and placed on chart. Sitter requested for pt. Intenstivist notified of fall and in to assess pt. elfino Zhu MD - 10/23/2015 10:37 AM PDT Progress Notes by Delfino Vora MD at 10/23/15 1037 Author: Delfino Vora MD Service: Nephrology Author Type: Physician Filed: 10/23/15 1038 Date of Service: 10/23/15 1037 Status: Signed Bisque Brusher: Delfino Vora MD (Physician) [facility] Service: Nephrology Renal Consult Progress Note Yang Ridley [id number] Hospital Day: LOS: 22 days SUBJECTIVE Patient Summary: Patient seen and examined. Feels well today. Scheduled Medications clonazePAM 1 mg Oral BID fentaNYL 1 patch Transdermal Q72H furosemide 80 mg Intravenous 3 times daily gentamicin Topical Daily heparin (porcine) 5000 unit/0.5mL 5,000 Units Subcutaneous 3 times per day nafcillin 2 g Intravenous Q4H QUEtiapine 100 mg Oral QAM QUEtiapine 100 mg Oral QPM sodium chloride 10 mL Intravenous 2 times per day sodium chloride 10 mL Intravenous 2 times per day sodium citrate anticoagulant 4 % 6 mL Intracatheter Daily Continuous Infusions dexmedetomidine in NS 1.5 mcg/kg/hr (10/23/15 0950) sodium chloride (IV) 15 mL/hr at 10/14/15 1547 PRN Medications acetaminophen, albumin human, albuterol, aluminum-magnesium hydroxide-simethicone, diphenhy zmIXNAI-aevicv-hyobdohhs oral solution, lip moisturizer, LORazepam, metoclopramide, ondanset eliana OR ondansetron, pancrelipase (Vde-Glbq-Vmwa)12,000 units, promethazine, simethicone, sodium chloride, white petrolatum OBJECTIVE Vital Signs: BP 154/109 mmHg | Pulse 93 | Temp(Src) 98.5 F (36.9 C) (Oral) | Resp 9 | Ht 1.702 m (5' 7") | Wt 69 kg (152 lb 1.9 oz) | BMI 23.82 kg/m2 | SpO2 97% Intake/Output Summary (Last 24 hours) at 10/23/15 1037 Last data filed at 10/23/15 0559 Gross per 24 hour Intake 1435.9 ml Output 1375 ml Net 60.9 ml Gen: NAD, A&Ox3 Neck: No JVD Pulm: CTA b/l, good air movement, no w/r/r CV: RRR, nl S1S2, no rub Abd: Soft, NT/ND, NABS Ext: no c/c/e Access: rt ij pc DATA Recent Labs Lab 10/23/1532310/22/154 10/21/158 10/20/15 0458 CREATININE 2.6* 2.1* 3.0* 2.5* Recent Labs Lab 10/23/1532310/22/154 10/21/1535710/20/15 0458 NA 141 140 137 137 K 3.1* 3.5 3.6 3.5 CL 107 106 102 102 CO2 22* 20* 20* 19* BUN 30* 24 38* 25 CA 7.7* 7.7* 7.6* 7.5* PHOS 4.8 4.2 7.7* 5.1* MG 1.5* 1.7 1.8 2.0 Recent Labs Lab 10/22/1540310/21/1535710/20/1545710/19/1551610/19/15 0452 ALB 1.2* 1.2* 1.3* -- 1.3* ALP 67 66 72 -- 73 AST 22 20 24 -- 29 ALT 18 20 20 -- 22 INR -- -- -- 1.1 DUPLICATE ORDER Recent Labs Lab 10/23/1532310/22/1540310/21/1535710/20/15 0458 WBC 7.93 9.29 7.96 10.26 RBC 2.66* 2.85* 2.40* 2.68* HGB 7.8* 8.3* 6.9* 7.8* HCT 23.4* 25.4* 21.3* 23.7* PLT 457* 407* 323 291 MCV 87.9 88.9 89.1 88.4 RDW 50.8 51.6 53.4* 54.3* Recent Labs Lab 10/19/1551610/19/15 0452 INR 1.1 DUPLICATE ORDER PROBLEM LIST Principal Problem: Sepsis (HCC) Active Problems: Hyposmolality and/or hyponatremia MARCEL (acute kidney injury) (HCC) Leucocytosis Thrombocytopenia (HCC) Toxic metabolic encephalopathy Acute respiratory failure with hypoxia (HCC) Heroin abuse Methamphetamine abuse Tobacco abuse Acute septic pulmonary embolism (HCC) Acute infective endocarditis Moderate protein-calorie malnutrition (HCC) Hallucination, visual Severe protein-calorie malnutrition (HCC) ASSESSMENT & PLAN The patient is a 30 y.o. male with significant history of tobacco and drug abuse using jennifer y heroin and methamphetamine, also on Suboxone. He initially presented to [facility] for progressive weakness, lethargy, and generalized pain for the past 7 days. He noti edy that his ankles and right knee were swollen but not warm or erythematous. According to imer valverde girlfriend, he has been feeling sick and febrile for the past week with poor oral intake. LP was performed to rule out meningitis. IV antibiotics started, ceftriaxone 2 gm and vanco mycin [address] head and C-spine x-ray performed, patient decompensated and was intubat ed for respiratory failure and airway protection and admitted to the ICU. Significant labs on initial presentation : Na 114 (1435 hrs), BUN 81, Crea 2.48, Over next 12-24 hrs, his sodium abruptly improved to a peak of126 by 6 AM on 10/01, so c ounter measures were started to avoid over correction. Patient received DDAVP X2 X 2 MCG AT 4 AND 8 AM ON 10/01 and is on D5W AT 200 ML/HR. He has never been hospitalized because of low sodium. He has never been symptomatic because of low sodium. There are no herbal preparation intake; he does not have hx of liver cirrhos is. He does not have hx of CHF, hypothyroidism or adrenal insufficiency.There is no hx of ch ronic diarrhea and no N/V. ARF Differential includes, post infectious vs atn from sepsis, made 1000ml of urine, s/p kidney biopsy , results pending Hold of dialysis today, will start him on lasix 80 mg iv tid, replace potassium daily weights and strict I/O's Diet should be 0.8 gm/kg protein, 1 gm PO4, 2 gm Na, and 2 gm K restricted diet. medications to be dosed for estimated eGFR Of 15 NSAIDs (including FRASER 2 inhibitors) should not be used. Magnesium and aluminum containing antacids should be avoided. Magnesium or phosphorus containing laxatives should be avoided. Code Status: Full Code Delfino Vora MD 10/23/2015 10:37 AM onversion Transaction, Provider Unknown - 10/23/2015 10:32 AM PDTFormatting of this note might be dif ferent from the original. Progress Notes by Ana Garnett RD, ELMO at 10/23/15 1032 Author: Ana Garnett RD, ELMO Service: (none) Author Type: Registered Dietitian Filed: 10/23/15 1032 Date of Service: 10/23/15 103 Status: Signed Bisque Brusher: Ana Garnett RD, CD (Registered Dietitian) 10/23/15 2448 Subjective Timepoint Follow up (high-risk) Pt c/o Pt was extubated on 10/20 to nasal cannula. PICC and tunneled cath placed yesterday. H D has been held until nephrology follow up as pt now starting to void with Lasix given. Per RN, pt has been A/O x 4, but has had hallucinations. Pt passed swallow evaluation per SOFTWARE CONSULTANT no te this AM. Had been eating the ends of green lemon oral care swabs. Fluid / Beverage Intake Oral Fluids Amount NPO - just advanced this AM and may have liquids ad radha. Food Intake Amount of Food Pt has been NPO or had very minimal TF for the past 7 days. Intake so far to day has consisted only of trials with SOFTWARE CONSULTANT but meals can be ordered at this time. Type of Food / Meals Diet advanced this AM to general diet. Parenteral Nutrition Intake Rate/Solution On IV fluids of NS at 15 mL/hr. Pt remains on Precedex. Not requiring any pre ssors. Nutrition-Focused Physical Findings Overall Appearance Appears very thin and weak, but alert. Body Language 1+ edema in the upper extremities and 3+ edema in the lower extremities. Digestive System (Mouth to Rectum) SOFTWARE CONSULTANT following. No dysphagia noted. Skin Pt had multiple scabs on his hands and arms which he picked off this AM per report in rounds. Anthropometrics Weight change Current wt is unchanged from admit wt. I/Os indicate that pt is approximately 15 L fluid positive. Does not include insensible losses, however suspect fluid retention co ntinues to mask onngoing loss of LBM as pt has persistent edema. Lasix ordered. Will continu e to monitor trends. Biochemical data, medical tests, and procedures reviewed Biochemical data, medical tests, and procedures reviewed BUN 30 (H), Cr 2.6 (H), acute juan carlos l failure but improved - nephrology following. K+ 3.1 (L) - IV replacement given. Mg 1.5 (L) . Na and Phos are WNL. BG has been controlled in the 80s-100s. Recommendations Recommended energy needs General diet as ordered. SOFTWARE CONSULTANT to modify liquids/textures as needed to ensure safety. PO intake to be encouraged. Recommend house diet to ensure pt receives mihir ls on a consistent basis. Will arrange for Boost Plus supplements to be sent TID to help opt imize kcal/protein intake. Can switch to Novasource Renal if needed based on labs. Will cont inue to monitor clinical course and will f/u with further nutrition recs as needed. Nutritional Risk Nutritional risk High Follow up date 10/26/15 Malnutrition Evaluation Estimated energy intake time frame 7 Days Estimated % energy intake last 7 days (!) 25 % Malnutrition in the Context Of Acute Illness Clinical Characteristics indicative of severe malnutrition 50% or less of EER within 5 days ;Moderate to severe fluid accumulation Protein-Calorie Malnutrition Type (!) Severe Ana Garnett RD, CD, CNSC 10/23/2015 onver patti Transaction, Provider Unknown - 10/23/2015 9:30 AM PDT Therapy Progress Note by Stefany Chang MA CCC-SOFTWARE CONSULTANT at 10/23/15 0930 Author: Stefany Chang MA CCC-SOFTWARE CONSULTANT Service: (none) Author Type: Speech and Language Patholo [facility] Filed: 10/23/1532 Date of Service: 10/23/15929 Status: Signed Bisque Brusher: Stefany Chang MA CCC-SOFTWARE CONSULTANT (Speech and Language Pathologist) 10/23/15 0907 SOFTWARE CONSULTANT Last Visit SOFTWARE CONSULTANT Received On 10/23/15 Requires SOFTWARE CONSULTANT Follow Up No Swallowing Assessment Eval Swallowing Treatment Yes Initial Swallow Assessment Temperature Spikes Noted No Respiratory Status Room air Behavior/Cognition Alert;Cooperative Dentition Adequate Vision Functional for self-feeding Patient Positioning Upright in bed Baseline Vocal Quality Weak Oral Motor Exam Labial ROM WFL Labial Symmetry WFL Labial Strength WFL Lingual ROM WFL Lingual Symmetry WFL Lingual Strength WFL Facial Symmetry WFL Vocal Quality Breathy;Weak Ice Chips Presentation Spoon Oral Phase WFL Pharyngeal Phase No overt signs or symptoms of aspirations Thin Presentation Cup;Straw Oral Phase Thin WFL Pharyngeal Phase No overt signs or symptoms of aspiration Puree Presentation Self Fed;Spoon Oral Phase WFL Pharyngeal No overt signs or symptoms of aspiration Dysphagia Mechanically Altered Presentation Self Fed;Spoon Oral Phase WFL Pharyngeal Phase No overt signs or symptoms of aspiration Regular Presentation Self Fed Oral Phase WFL Pharyngeal Phase No overt signs or symptoms of aspiration Recommendations Liquids Consistency Recommendations Thin Diet Consistency Recommendation Regular Recommendations Set up with meals;Check on patients frequently throught out meals Risk for Aspiration Mild Compensatory Swallowing Strategies Upright as possible for all oral intake;Remain upright f or 30 minutes after meals;Alternate solids and liquids;Slow rate presentation;Small bites/si ps;Eat/feed slowly Recommended Form of Meds Meds with recommended liquid Summary Pt alert and cooperative for swallow evaluation. Upon entering the pt's room, pt pi cked off scabs and left them on the floor. Per RN pt had been eating off the ends of green a nd lemon oral care swabs and swallowing swabs whole yesterday, without difficulty. Pt tolera latasha trials of thin liquids and regular textures with no overt s.sx of aspiration. Recommend regular textures and thin liquids. Pt oriented to place and year and reports no concerns wit h cognitive skills and "feels like my normal self". ST to discharge at this time. Please con tact ST if concerns or questions arise. Staff Notified RN;MD Plan of Care Treatment Plan Discharge from at this time AVS Documentation Yes Diet Regular: no restrictions Liquids Thin liquids: regular consistency SOFTWARE CONSULTANT Ready for Discharge Yes Dysphagia Goals Usp Goals Advanced diet Pt will advanced diet in 3 days;Goal met Short Term Goals Tolerate diet upgrade trials Pt will tolerate diet upgrade trials With 1:1 supervision;Goal met I have read and reviewed this annotation of the therapy session completed on 10/23/2015 as do cumented by the ST/S. I am in agreement with this annotation and the billing of this patient for the date of services provided on 10/23/2015. I was present and involved in the care of th is patient throughout the entirety of the session. Stefany Chang MA CCC-SOFTWARE CONSULTANT 10/23/2015 onver patti Transaction, Provider Unknown - 10/23/2015 9:11 AM PDT Case Management by SAMEERA Huggins at 10/23/15910 Author: SAMEERA Huggins Service: (none) Author Type: Fuse Assembler Filed: 10/23/15916 Date of Service: 10/23/15910 Status: Signed Bisque Brusher: SAMEERA Huggins (Fuse Assembler) Pt was extubated to nasal cannula. ID note states: On 10/19, transesophageal echocardiogram reported as showing no mitral vegetation with large, mobile vegetation at the tricuspid valve and severe tricuspid regurgitation. CT surgery ree valuated the patient; proceeding with medical management. Kidney biopsy done. Pt is having issues with hallucinations. CM to follow. Chris Dinh DO - 10/23/2015 6:19 AM PDTFormatting of this note might be different from the gregory mer. Progress Notes by Chris Swann DO at 10/23/15618 Author: Chris Swann DO Service: (none) Author Type: Physician Filed: 10/23/15817 Date of Service: 10/23/15618 Status: Signed Bisque Brusher: Chris Swann DO (Physician) [facility] Service: Infectious Disease Progress Note Hospital Day: LOS: 22 days Post-Op Day: * No surgery found * SUBJECTIVE Patient Summary: CC: Fever, chest pain and altered mental status From Auto Dealer's admission note on 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 male with significant history of tobacco and drug abuse using daily heroin and methamphetamine, also on Suboxone. He initially presented to [facility] for progressive weakness, lethargy, and ge neralized pain (mostly his chest, neck, back, knees, ankles and toes) for the past 7 days. H e noticed that his ankles and right knee were swollen but not warm or erythematous. Accordin g to his girlfriend, he has been feeling sick and febrile for the past week with poor PO int elisha. Yesterday, she noticed that he seemed like he was hallucinating and talking to himself. He was very weak today that she had to assist him to get into the car to go the the ED. Exam at OSH was significant for point tenderness at the area of the cervical spine and posi tive Kernig's sign. LP was performed to rule out meningitis. IV antibiotics started, ceftria xone 2 gm and vancomycin [address] head and C-spine x-ray performed, MRI attempted but patient decompensated and was intubated for respiratory failure and airway protection. Significant labs: Na 114 (1435 hrs), BUN 81, Crea 2.48, WBC 19.9, Hb 11.6, Plt 51, Tbili 3. 6, AST 188, ALT 155, LA 1.7. CSF: clear, colorless, WBC 0, RBC 3. Protein 31. Glucose 50. Culture with no growth to d ate Blood cultures are reported to be growing GPCs at [place]' Transferred to [facility] for further care. MRI of brain and spine carried out with limited findi ngs due to non-contrast study. Evaluated by Nephrology, acute renal failure attributed to hemodynamics. Evaluated by Dr. Bhardwaj from orthopedics: Does not think patient has ankle septic joint and does not recomme nd surgical intervention. Echocardiogram showed moderate size mobile vegetation attached to the septal tricuspid valv e leaflet, moderate tricuspid regurgitation, moderate pulmonary hypertension with mildly enl arged right ventricle. Evaluated by CTS, surgery not recommended On 10/01, extubated On 10/02, he was transferred out of the ICU. On 10/04, patient had worsening mental status and also became tachypneic. He became more hy ponatremic with worsening renal function. Bilateral moderate sized pleural effusions were n oted on chest CT scan. Bedside ultrasound with bilateral pleural effusion, R>L. Left minimal and without echogenic ity suggestive of infectious pleural effusion. Left effusion is moderate with fibrin strands concerning for complicated/infectious pleural effusion. Right pig tail chest tube placed wi th purulent drainage. Head CT scan negative On 10/05, started on hemodialysis On October 08, left chest tube was placed. Reintubated on October 11. On 10/16-, patient was febrile to 101.4F. Blood cultures were sent. On 10/18, echocardiogram showed possible mobile vegetation at the posterior mitral valve leaf let along with known tricuspid valve vegetation. Right IJ hemodialysis catheter was placed. PICC was discontinued. He complained of abdominal pain and tenderness; CT scan was done salomon t showed mid to distal ileum and right colitis. On 10/19, transesophageal echocardiogram reported as showing no mitral vegetation with large, mobile vegetation at the tricuspid valve and severe tricuspid regurgitation. CT surgery ree valuated the patient; proceeding with medical management. Kidney biopsy done. CC: Endocarditis Chart reviewed: No new events. Subjective The patient reports that he feels better. He is breathing without difficulty, denies any co ugh. He denies any nausea, vomiting or diarrhea. ROS No fever, chills sweats. No nausea, vomiting or diarrhea. No rashes or pruritis. No oral pa in. Scheduled Medications clonazePAM 1 mg Oral BID fentaNYL 1 patch Transdermal Q72H gentamicin Topical Daily heparin (porcine) 5000 unit/0.5mL 5,000 Units Subcutaneous 3 times per day nafcillin 2 g Intravenous Q4H potassium chloride 20 mEq Intravenous Once QUEtiapine 100 mg Oral QAM QUEtiapine 100 mg Oral QPM sodium chloride 10 mL Intravenous 2 times per day sodium chloride 10 mL Intravenous 2 times per day sodium citrate anticoagulant 4 % 6 mL Intracatheter Daily Continuous Infusions dexmedetomidine in NS 1.5 mcg/kg/hr (10/23/15 0553) sodium chloride (IV) 15 mL/hr at 10/14/15 1547 PRN Medications acetaminophen, albumin human, albuterol, aluminum-magnesium hydroxide-simethicone, diphenhy pvHGIPS-ztuehc-cotdwqozm oral solution, lip moisturizer, LORazepam, metoclopramide, ondanset eliana OR ondansetron, pancrelipase (Wzc-Xwho-Qndx)12,000 units, promethazine, simethicone, sodium chloride, white petrolatum OBJECTIVE Vital Signs: BP 160/104 mmHg | Pulse 77 | Temp(Src) 98.4 F (36.9 C) (Oral) | Resp 29 | Ht 1.702 m (5 ' 7") | Wt 65.2 kg (143 lb 11.8 oz) | BMI 22.51 kg/m2 | SpO2 97% Temp: [98.3 F (36.8 C)-98.7 F (37.1 C)] 98.4 F (36.9 C) (10/22 0000) BP: (119-165)/(74-109) 160/104 mmHg (10/22 030) Heart Rate: [77-114] 77 (10/22 0300) Resp: [9-40] 29 (10/22 299) SpO2: [88 %-99 %] 97 % (10/22 299) Physical Exam Exam: Const: Vitals reviewed. No acute distress Skin: No rashes, no edema Left arm PICC line site unremarkable. ENT: No thrush. Lungs: CTAB, no rales or wheezes Heart: RRR, no murmur Abd: soft, NT, + bowel sounds DATA CBC: Lab Results Component Value Date WBC 7.93 10/23/2015 RBC 2.66* 10/23/2015 HGB 7.8* 10/23/2015 HCT 23.4* 10/23/2015 MCV 87.9 10/23/2015 MCH 29.2 10/23/2015 MCHC 33.2 10/23/2015 RDW 50.8 10/23/2015 PLT 457* 10/23/2015 MPV 7.3 10/23/2015 DIFFTYPE AUTOMATED 10/23/2015 WBC: Lab Results Component Value Date WBC 7.93 10/23/2015 NEUTABSMAN 10.38* 10/17/2015 NEUTROABS 5.99 10/23/2015 NEUTROMAN 86 10/17/2015 LYMPHOABS 0.84* 10/17/2015 LYMPHOMAN 7 10/17/2015 LYMPHSABS 0.82* 10/23/2015 LYMPHOPCT 10.36 10/23/2015 MONOABSMAN 0.48 10/17/2015 MONOMAN 4 10/17/2015 MONOPCT 8.45 10/23/2015 EOSINOABS 0.12 10/17/2015 EOSINOMAN 1 10/17/2015 EOSABS 0.34 10/23/2015 EOSPCT 4.27 10/23/2015 BASOSABS 0.12* 10/23/2015 BASOPCT 1.44 10/23/2015 PLTEST ADEQUATE 10/18/2015 BANDSPCT 2 10/17/2015 METAABS 0.26* 10/13/2015 METAPCT 1 10/13/2015 MYELOABS 0.17* 10/09/2015 MYELOPCT 1 10/09/2015 COMDIFF SLIDE SCANNED, AGREES WITH AUTOMATED RESULTS. 10/18/2015 CMP: Lab Results Component Value Date NA 141 10/23/2015 K 3.1* 10/23/2015 CL 107 10/23/2015 CO2 22* 10/23/2015 ANIONGAP 15 10/23/2015 GLUF 110* 10/23/2015 BUN 30* 10/23/2015 CREATININE 2.6* 10/23/2015 BCR 12 10/23/2015 CA 7.7* 10/23/2015 PROT 5.8* 10/22/2015 ALB 1.2* 10/22/2015 GLOB 4.6 10/19/2015 BILITOT 1.5 10/22/2015 ALP 67 10/22/2015 AST 22 10/22/2015 ALT 18 10/22/2015 EGFR 31* 10/23/2015 Microbiology data: 10/13 C. difficile PCR negative 10/09 C. difficile negative 10/11 HSV oral culture negative 10/05 pleural fluid culture negative 09/30 tracheal aspirate culture grew MSSA 10/17 blood cultures with no growth to date 09/30 blood cultures with no growth 10/18 catheter tip culture with no growth to date Radiology Data: Chest X-ray on 10/21 as follows: IMPRESSION: 1. Changes to the tubes and lines, as above. No evidence of a pneumothorax. 2. Patchy bilateral infiltrates, mildly progressive on the right. 3. Unchanged small bilateral pleural effusions. LEM LIST Principal Problem: Sepsis (HCC) Active Problems: Hyposmolality and/or hyponatremia MARCEL (acute kidney injury) (HCC) Leucocytosis Thrombocytopenia (HCC) Toxic metabolic encephalopathy Acute respiratory failure with hypoxia (HCC) Heroin abuse Methamphetamine abuse Tobacco abuse Acute septic pulmonary embolism (HCC) Acute infective endocarditis Moderate protein-calorie malnutrition (HCC) Hallucination, visual ASSESSMENT & PLAN MSSA sepsis, tricuspid valve endocarditis -Patient has MSSA bacteremia, tricuspid valve endocarditis with septic pulmonary emboli re lated to IV drug use -Neck pain and back pain improved; noncontrast MRI of spine and brain on presentation show s no evidence of infection -No evidence of septic arthritis; evaluated by orthopedics -Blood cultures on admission here have no growth. -CT scan performed on October 08 confirmed continued pleural effusion on the left, chest tube placed and d/c'd. CXR shows stable findings. -On 10/17, he was febrile so blood cultures repeated on 10/17 with no growth to date. TTE s howed tricuspid valve vegetation and a new mitral valve vegetation. Transesophageal echocard iogram showed no MV vegetation; Dr. Arias, [facility] recommends to continue medical management. Right upper extremity PICC d/c'd on 10/18, catheter tip culture with no growth. Right IJ hemo dialysis catheter replaced; has tunneled HD cath placed on 10/20. New PICC placed on 10/20 -continue IV nafcillin, day 22 of 42, fever curve and leukocytosis finally improving. Acute hypoxemic respiratory failure -Reintubated on 10/11 and extubated on October 21. We will monitor. MARCEL -No adjustment needed for nafcillin. On dialysis. Renal biopsy done on 10/19, results pendi ng Abnormal LFTs -Resolved. Petechial/purpuric rash -Suspected ecthyma. Improving. Skin care. IV drug use -Not a candidate for outpatient IV antibiotics. HIV negative. Anemia -most likely multifactorial: S/p blood transfusion Code Status: Full Code CHRIS SWANN DO 10/23/2015 Melchor Mckeon MD - 10/23/2015 1:30 AM PDT Progress Notes by Melchor Joseph MD at 10/23/15129 Author: Melchor Joseph MD Service: Auto Dealer Author Type: Physician Filed: 10/23/15607 Date of Service: 10/23/15129 Status: Signed Bisque Brusher: Melchor Joseph MD (Physician) [facility] Service: Auto Dealer Progress Note Yang Ridley 30 y.o. Hospital Day: LOS: 22 days Post-Op Day: * No surgery found * Consulting Physicians Treatment Team: Consulting Physician: Chris Swann DO Consulting Physician: Renetta Buck MD Consulting Physician: Gonzalez Bhardwaj MD Surgeon: Blanca Arias MD Consulting Physician: Blanca Arias MD Consulting Physician: Femi Vaughan MD Admitting Provider: Carly Thomas DO SUBJECTIVE Patient Summary: The patient is a 30 y.o. male with significant history of tobacco an d drug abuse using daily heroin and methamphetamine, also on Suboxone. He initially presen latasha to [facility] for progressive weakness, lethargy, and generalized pain (most ly his chest, neck, back, knees, ankles and toes) for 7 days. According to his girlfriend, he was feeling sick and febrile for a week with poor PO intake; she also noticed that his an kles and right knee were swollen but not warm or erythematous, and he seemed to be "halluinc ating and talking to himself". Exam at OSH was significant for point tenderness at the area of the cervical spine and posi tive Kernig's sign. LP was performed to rule out meningitis. IV antibiotics started, ceftria xone 2 gm and vancomycin [address] head and C-spine x-ray performed, MRI attempted but patient decompensated and was intubated for respiratory failure and airway protection. Significant labs: Na 114 (1435 hrs), BUN 81, Crea 2.48, WBC 19.9, Hb 11.6, Plt 51, Tbili 3. 6, AST 188, ALT 155, LA 1.7. CSF: clear, colorless, WBC 0, RBC 3. Transferred to [facility] for further care. Timeline: Evaluated by Nephrology, acute renal failure attributed to hemodynamics. Evaluated by Dr. Bhardwaj from orthopedics: Does not think patient has ankle septic joint and does not re commend surgical intervention. Echocardiogram showed moderate size mobile vegetation attached to the septal tricuspid v alve leaflet, moderate tricuspid regurgitation, moderate pulmonary hypertension with mildly enlarged right ventricle. Evaluated by CTS, surgery not recommended On 10/01, extubated. MRI spine w/o evidence abscess On 10/02, he was transferred out of the ICU. 10/04-Transferred to ICU for worsening mental status, drop of Na from 122 to 117 and wors ening renal function 10/05-HD line placed, started on dialysis. Right pigtail chest tube with drainage of 1400 ml serosanguineous exudate 10/06-Dialysis session. Improved encephalopathy. Anxiety requiring high dose precedex. 10/07-Right pigtail chest catheter removed 10/08-dialysis again today, 3L removed; Cxr with bilateral effusions which appear to be a bout the same as yesterday; will repeat CT chest to evaluate further; continues to be anxiou s, c/o pain 10/09-dialysis again today, 3.5L removed, now with left pleural chest catheter placed ove jayson, immediately drained 850cc, only 50cc during the day today; intermittent fevers, tach ycardia persists; add seroquel BID 10/10--dialysis again today with anticipated 2.5L removal; L pleural chest catheter remov ed, f/u Cxr in 1 hour; if no issues post dialysis and f/u cxr will transfer to acute care be d 10/11--worsening hypoxia, tachypnea, and associated tachycardia so electively re-intubate d 10/12--restarted Levophed during dialysis today; fio2 weaned to 30%; HSV oral swab negati ve 10/13-- rested comfortably overnight, temps better, restarted tube feeds 10/14-- No acute events. HD today then attempt SBT 10/15- Hodling extubation 10/16-Holding extubation, transfused 2 units PRBC 10/17-Febrile, BC sent. Echo with new vegetation on anterior leaflet of mitral valve 10/18--ANITA (per Dr Kimble) did NOT show vegetation of the mitral valve; will proceed with kidney biopsy today and tunneled catheter placement tomorrow; repeat cx's w/o growth so far 10/19--Kidney biopsy today; Ketamine added for sedation. Evaluated by CT surgery; no plans for surgery at this time 10/20--Tunneled cath placed; extubated to nasal canula will attempt, picc line placed, freddie neled cath placed. 8-4: HD held, given 100 mg iv lasix trial as he started to void, failed swallow eval Overnight events: HD held, given 100 mg iv lasix trial as he started to void, failed swallo w eval, visual hallucinations at night OBJECTIVE VITAL SIGNS Temp: [98.3 F (36.8 C)-98.7 F (37.1 C)] 98.4 F (36.9 C) Heart Rate: [77-114] 77 Resp: [9-40] 29 BP: (119-165)/(74-109) 160/104 mmHg Intake/Output Summary (Last 24 hours) at 10/23/15 0606 Last data filed at 10/22/15 2235 Gross per 24 hour Intake 1739.9 ml Output 1175 ml Net 564.9 ml EXAM GEN: on room air, , hoarse voice. NEURO: PERRLA, no facial asymmetry, moves all extremities well, non focal HEENT: sclerae clear, nonicteric, oral mmm, NECK: supple, trachea midline HEART: Sinus tachycardia 100's to 110's, S1/S2, 2/6 systolic murmur LUNGS:coars ebilat, no w, symmetric chest expansion, slightly tachypneic ABD: soft, non-tender, BS hypoactive, EXTR: 2+ edema all extremities, no clubbing or cyanosis SKIN: diffuse purpuric palpable rash bilateral anterior lower extremities, also hand and fe et. Blisters noted within rash. Dressings to bilat elbows CDI. No e/o nec fasc or myonecr osis at the elbows anteriorly. LINES/TUBES: picc line 8-3 Right tunneled cath 8-3 DATA Recent Labs Lab 10/23/15 0324 10/22/15 0404 10/21/15 0358 10/18/15 0511 10/17/15 1002 10/17/15 0335 WBC 7.93 9.29 7.96 < > 11.38* 12.06* 10.13 RBC 2.66* 2.85* 2.40* < > 2.91* 3.12* 2.10* HGB 7.8* 8.3* 6.9* < > 8.3* 8.9* 6.1* HCT 23.4* 25.4* 21.3* < > 25.7* 27.7* 19.0* MCV 87.9 88.9 89.1 < > 88.3 88.8 90.3 MCH 29.2 29.2 28.8 < > 28.7 28.6 29.1 MCHC 33.2 32.8 32.3 < > 32.5 32.2 32.3 RDW 50.8 51.6 53.4* < > 52.5 48.6 55.1* PLT 457* 407* 323 < > 204 203 186 MPV 7.3 7.4 7.5 < > 7.8 8.4 8.3 BANDSABS -- -- -- -- -- 0.24* -- NEUTROABS 5.99 7.42* 5.97 < > 9.90* -- 8.54* LYMPHSABS 0.82* 0.74* 0.77* < > 0.51* -- 0.68* MONOSABS 0.67 0.71 0.74 < > 0.64 -- 0.63 BASOSABS 0.12* 0.08 0.06 < > 0.11* -- 0.05 EOSABS 0.34 0.35 0.41 < > 0.22 -- 0.22 MORPH -- -- -- -- NORMAL PLT MORPH 1+ NORMAL PLT MORPH < > = values in this interval not displayed. Recent Labs Lab 10/23/15 0324 10/22/15 0404 10/21/15 0358 10/20/15 0458 10/19/15 0452 NA 141 140 137 137 131* K 3.1* 3.5 3.6 3.5 3.3* CL 107 106 102 102 98* CO2 22* 20* 20* 19* 18* ANIONGAP 15 18 19 20 19 GLUF 110* 91 104* 85 92 BUN 30* 24 38* 25 58* CREATININE 2.6* 2.1* 3.0* 2.5* 4.1* BCR 12 11 13 10 14 CA 7.7* 7.7* 7.6* 7.5* 7.4* ALB -- 1.2* 1.2* 1.3* 1.3* GLOB -- -- -- -- 4.6 AG -- -- -- -- 0.3* PROT -- 5.8* 5.7* 5.8* 5.9* BILITOT -- 1.5 1.7* 1.3 1.7* ALT -- 18 20 20 22 AST -- 22 20 24 29 EGFR 31* 39* 26* 32* 18* PHOS 4.8 4.2 7.7* 5.1* 7.1* MG 1.5* 1.7 1.8 2.0 2.0 Recent Labs Lab 10/19/15 0517 10/19/15451 INR 1.[address] ABDOMEN AND PELVIS EXAM DATE: 10/19/2015 03:42 AM. CLINICAL HISTORY: Septic emboli, abdominal distention and pain COMPARISONS: 10/05/2015. TECHNIQUE: Routine axial helical CT imaging was performed through the abdomen and pelvis wi th oral but without IV contrast. Reconstructions: Coronal and sagittal. In accordance with CT protocol optimization, one or more of the following dose reduction te chniques were utilized for this exam: automated exposure control, adjustment of mA and/or KV based on patient size, or use of iterative reconstructive technique. FINDINGS: Lung Bases: Decreasing loculated pleural effusions and multifocal airspace opacities again noted, consistent with septic emboli. Noncontrast abdominal organs: Grossly stable and unremarkable noncontrast appearance to the liver, gallbladder, pancreas, adrenals, kidneys, and spleen. Peritoneal Cavity: Long segment of wall thickening involving the mid to distal ileum and ri ght colon. Mild diffuse mesenteric edema and free fluid. No gross free air. No obstruction. Pelvic Organs: No bladder stones or wall thickening. Noncontrast images of the visualized p elvic organs are unremarkable. Vasculature: Unremarkable. Other: Severe generalized anasarca. IMPRESSION: 1. Long segment of wall thickening involving the mid to distal ileum and right colon. Thi s can be seen with infectious, inflammatory, or ischemic enteritis. 2. Mild diffuse mesenteric edema and free fluid. This is likely mostly secondary to patient 's underlying severe anasarca. 3. Decreasing pleural effusions and evidence of septic pulmonary emboli and at the lung bas es. Ct Chest Without Contrast 10/09/2015 1. Significant interval decrease in size of right pleural effusion, now small. Moderate to large left pleural effusion appears slightly decreased in size. Associated cons olidative opacity seen involving the lower lobes, likely representing pneumonia or atelectas is. 2. Essentially unchanged appearance of numerous bilateral cavitary lesions or airspace opacities 3. Wedge-shaped hypodensity in the anterior spleen, suspicious for an infarct. E lectronically signed by Ramone Abarca MD on 10/09/2015 4:42 PM Xr Chest 1 View 10/14/2015 1. Unchanged appearance of bilateral airspace and nodular/cavity opacities. 2. Unchanged at least small bilateral pleural effusions. LEM LIST Principal Problem: Sepsis (HCC) Active Problems: Hyposmolality and/or hyponatremia MARCEL (acute kidney injury) (HCC) Leucocytosis Thrombocytopenia (HCC) Toxic metabolic encephalopathy Acute respiratory failure with hypoxia (HCC) Heroin abuse Methamphetamine abuse Tobacco abuse Acute septic pulmonary embolism (HCC) Acute infective endocarditis Moderate protein-calorie malnutrition (HCC) Hallucination, visual ASSESSMENT & PLAN NEURO: Septic encephalopathy-Resolved. Continue seroquel for anxiety/insomnia, fent patch added; pills on hold until passes swa llow eval Visual hallucinations only at night,ketamine off, everett likely other drugs, no tactile or auditory hallucinations; claims that he had sometimes other hallucinations prior to this il lness, ? Schizophrenia or illicit drug effects; if persist will c/s psychiatry CV: Septic shock resolved. Tricuspid IE on septal leaflet : no ind for surgery, see ID PULM: extubated to [place] on 8- Pulmonary septic embolic from MSSA tricuspid valve: CT chest repeated 10/08--Right pleural effusion less s/p pigtail chest tube 10/05. Exudati ve by Lights criteria. PH, glucose not consistent with complicated infected effusion. remove d Left pleural effusion, much improved s/p pigtail catheter 10/08, immediately drained 850 cc---removed (10/10). GI/NUTRITION: Severe malnutrition secondary to infectious process. Mild Transaminitis (resolved) likely sepsis related . Hepatitis serologies and HIV nega tive. Abdominal distension and abdominal pain. CT abdomen with oral contrast with thickening o f terminal ileum and right colon. Clinically w/o GIB. No abd pain and mild loose stools with out blood; Serial lactates.10/18-0.3/0.3/0.4 Concern for congested venous small bowel insuffic iency. FAILED SWALLOW EVAL, REVEALUATE, IF FAILS AGAIN NEEDS DHT RENAL/LYTES: MARCEL. Anuric. Transitioned to conventional HD. 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 Vora) UA with hematuria. C3 low. C4 wnl. Low C3 l Tunneled catheter placement and new PICC line placement (10/20) Cortisol and TSH wnl Started to make urine, KIDNEY BIOPSY DONE RESULT PENDING, challenged with 100 mg iv lasi x, very good response ID: MSSA Tricuspid Infective Endocarditis---ANITA 10/18 r/o any mitral valve involvement Followed by ID. Currently on Nafcillin HEME: Anemia-Multifactorial. Required blood transfusion 10/06 (2 units PRBC); 1 unit given 10/09 , 1u 10/13. Hb 6.1 10/16. Transfused 2 units PRBCs with appropriate response. Haptoglobin 201 (10/16); w Continue to monitor, no e/o active bleeidng, haptoglobin wnl ENDO: Monitor BS. Goal 80-180. MUSC/SKIN: Vasculitis from IE/sepsis. Pt with purpura rash with blistering and bullae. 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 (no scd's d/t skin integrity of legs) VAP bundle: chlorhexadine oral care, HOB >30 degrees Disposition: Critical care Code Status: Full Code *Please bill 25 minutes of critical care time spent evaluating the patient, reviewing the d michael and formulating a plan exclusive of all other procedures. MELCHOR JOSEPH MD 10/23/2015 6:06 AM Naga Melendez si, MD - 10/22/2015 3:37 PM PDT Progress Notes by Delfino Vora MD at 10/22/15 1537 Author: Delfino Vora MD Service: Nephrology Author Type: Physician Filed: 10/22/15 1539 Date of Service: 10/22/151536 Status: Signed Bisque Brusher: Delfino Vora MD (Physician) [facility] Service: Nephrology Renal Consult Progress Note Yang Ridley [id number] Hospital Day: LOS: 21 days SUBJECTIVE Patient Summary: Patient seen and examined. Feels well today. Extubated. Scheduled Medications clonazePAM 1 mg Oral BID fentaNYL 1 patch Transdermal Q72H gentamicin Topical Daily heparin (porcine) 5000 unit/0.5mL 5,000 Units Subcutaneous 3 times per day nafcillin 2 g Intravenous Q4H QUEtiapine 100 mg Oral QAM QUEtiapine 100 mg Oral QPM sodium bicarbonate buffer 5 mL Infiltration Once sodium bicarbonate buffer 5 mL Infiltration Once sodium chloride 10 mL Intravenous 2 times per day sodium chloride 10 mL Intravenous 2 times per day sodium citrate anticoagulant 4 % 6 mL Intracatheter Daily Continuous Infusions dexmedetomidine in NS 1.5 mcg/kg/hr (10/22/15 1201) fentaNYL in NS 5 mcg/mL 50 mcg/hr (10/22/15 0640) sodium chloride (IV) 15 mL/hr at 10/14/15 1547 PRN Medications acetaminophen, albumin human, albuterol, aluminum-magnesium hydroxide-simethicone, diphenhy hwHDUER-qooeil-cgvqznhlv oral solution, lip moisturizer, LORazepam, metoclopramide, ondanset eliana OR ondansetron, pancrelipase (Smo-Nvbz-Imzy)12,000 units, promethazine, simethicone, sodium chloride, white petrolatum OBJECTIVE Vital Signs: BP 139/91 mmHg | Pulse 100 | Temp(Src) 98.6 F (37 C) (Oral) | Resp 28 | Ht 1.702 m (5' 7") | Wt 65.2 kg (143 lb 11.8 oz) | BMI 22.51 kg/m2 | SpO2 97% Intake/Output Summary (Last 24 hours) at 10/22/15 1537 Last data filed at 10/22/15 1400 Gross per 24 hour Intake 1120.35 ml Output 1125 ml Net -4.65 ml Gen: NAD, A&Ox3 Neck: No JVD Pulm: CTA b/l, good air movement, no w/r/r CV: RRR, nl S1S2, no rub Abd: Soft, NT/ND, NABS Ext: trace edema Access: rt ij PC present DATA Recent Labs Lab 10/22/1540310/21/1535710/20/1545710/19/15 045 CREATININE 2.1* 3.0* 2.5* 4.1* Recent Labs Lab 10/22/15 04010/21/1535710/20/158 10/19/15 0452 NA 140 137 137 131* K 3.5 3.6 3.5 3.3* CL 106 102 102 98* CO2 20* 20* 19* 18* BUN 24 38* 25 58* CA 7.7* 7.6* 7.5* 7.4* PHOS 4.2 7.7* 5.1* 7.1* MG 1.7 1.8 2.0 2.0 Recent Labs Lab 10/22/15 04010/21/15 0358 10/20/158 10/19/15 0517 10/19/15 0452 ALB 1.2* 1.2* 1.3* -- 1.3* ALP 67 66 72 -- 73 AST 22 20 24 -- 29 ALT 18 20 20 -- 22 INR -- -- -- 1.1 DUPLICATE ORDER Recent Labs Lab 10/22/15 0404 10/21/15 0358 10/20/15 0458 10/19/15 0452 WBC 9.29 7.96 10.26 9.56 RBC 2.85* 2.40* 2.68* 2.73* HGB 8.3* 6.9* 7.8* 8.0* HCT 25.4* 21.3* 23.7* 24.3* PLT 407* 323 291 224 MCV 88.9 89.1 88.4 88.9 RDW 51.6 53.4* 54.3* 55.1* Recent Labs Lab 10/19/15 0517 10/19/15 0452 INR 1.1 DUPLICATE ORDER PROBLEM LIST Principal Problem: Sepsis (HCC) Active Problems: Hyposmolality and/or hyponatremia MARCEL (acute kidney injury) (HCC) Leucocytosis Thrombocytopenia (HCC) Toxic metabolic encephalopathy Acute respiratory failure with hypoxia (HCC) Heroin abuse Methamphetamine abuse Tobacco abuse Acute septic pulmonary embolism (HCC) Acute infective endocarditis Moderate protein-calorie malnutrition (HCC) ASSESSMENT & PLAN The patient is a 30 y.o. male with significant history of tobacco and drug abuse using jennifer y heroin and methamphetamine, also on Suboxone. He initially presented to [facility] for progressive weakness, lethargy, and generalized pain for the past 7 days. He noti edy that his ankles and right knee were swollen but not warm or erythematous. According to h is girlfriend, he has been feeling sick and febrile for the past week with poor oral intake. LP was performed to rule out meningitis. IV antibiotics started, ceftriaxone 2 gm and vanco mycin [address] head and C-spine x-ray performed, patient decompensated and was intubat ed for respiratory failure and airway protection and admitted to the ICU. Significant labs on initial presentation : Na 114 (1435 hrs), BUN 81, Crea 2.48, Over next 12-24 hrs, his sodium abruptly improved to a peak of126 by 6 AM on 10/01, so c ounter measures were started to avoid over correction. Patient received DDAVP X2 X 2 MCG AT 4 AND 8 AM ON 10/01 and is on D5W AT 200 ML/HR. He has never been hospitalized because of low sodium. He has never been symptomatic because of low sodium. There are no herbal preparation intake; he does not have hx of liver cirrhos is. He does not have hx of CHF, hypothyroidism or adrenal insufficiency.There is no hx of ch ronic diarrhea and no N/V. ARF Differential includes, post infectious vs atn from sepsis, made 1000ml of urine, s/p kidney biopsy , results pending Hold of dialysis today, will give him a trial of 100 mg iv lasix daily weights and strict I/O's Diet should be 0.8 gm/kg protein, 1 gm PO4, 2 gm Na, and 2 gm K restricted diet. medications to be dosed for estimated eGFR Of 15 NSAIDs (including FRASER 2 inhibitors) should not be used. Magnesium and aluminum containing antacids should be avoided. Magnesium or phosphorus containing laxatives should be avoided. Code Status: Full Code Delfino Vora MD 10/22/2015 3:37 PM onversion Transaction, Provider Unknown - 10/22/2015 8:14 AM PDTFormatting of this note might be dif ferent from the original. Therapy Progress Note by MS AMADOU Rivers-SOFTWARE CONSULTANT at 10/22/15813 Author: MS AMADOU Rivers-SOFTWARE CONSULTANT Service: (none) Author Type: Speech and Language P athologist Filed: 10/22/15813 Date of Service: 10/22/15813 Status: Signed Bisque Brusher: MS AMADOU Rivers-SOFTWARE CONSULTANT (Speech and Language Pathologist) 10/22/15 08 SOFTWARE CONSULTANT Last Visit SOFTWARE CONSULTANT Received On 10/22/15 Requires SOFTWARE CONSULTANT Follow Up Yes Swallowing Assessment Eval Swallowing Evaluation Yes Initial Swallow Assessment Temperature Spikes Noted No Respiratory Status Room air History of Intubation Yes Date extubated 10/21/15 Behavior/Cognition Alert;Cooperative;Lethargic Dentition Adequate Vision Functional for self-feeding Patient Positioning Upright in chair Baseline Vocal Quality Weak;Aphonic Volitional Cough Weak Volitional Swallow Delayed Oral Motor Exam Labial ROM WFL Labial Symmetry WFL Labial Strength WFL Lingual ROM WFL Lingual Symmetry WFL Lingual Strength WFL Facial Symmetry WFL Vocal Quality Breathy;Weak Consistencies Consistencies Assessed Yes Ice Chips Presentation Spoon Oral Phase Increased holding time Pharyngeal Phase Delayed swallow initiation;Spontaneous double swallow;Cough - Immediate;Co ugh - Delayed Recommendations Liquids Consistency Recommendations NPO/No liquids Diet Consistency Recommendation NPO/No solids Recommendations NPO;Dysphagia treatment;1:1 supervision Risk for Aspiration Severe Recommended Form of Meds Other (comment) (non oral is safest) Summary Per RN pt with several intubations/extubations. RN reprots pt extubated p.m. of . Pt alert, cooperative and tired. Prior to PO trials pt demo'd weak cough and delayed swa llow. Pt reports throat feels sore. Pt demo'd immediate and delayed coughing across all ice trials. Rec pt NPO no solids/liquids at this time, meds non oral is safest. Reviewed s/sx of aspiration with pt. Pt stated understanding. ST to follow to assess for upgrade. Staff Notified RN Plan of Care Treatment Plan ST to follow;Dysphagia treatment Treatment Frequency 4-6 x/week Follow up treatments Assessment for upgrade;Patient/Family education;Swallow strategies SOFTWARE CONSULTANT Ready for Discharge Not Applicable Dysphagia Goals Usp Goals Advanced diet Pt will advanced diet in 3 days;New/revised goal Short Term Goals Tolerate diet upgrade trials Pt will tolerate diet upgrade trials With 1:1 supervision;New/revised goal Usman Blount MD - 10/22/2015 7:52 AM PDT Progress Notes by Usman Villatoro MD at 10/22/15751 Author: Usman Villatoro MD Service: Infectious Disease Author Type: Physician Filed: 10/22/15 0934 Date of Service: 10/22/15751 Status: Signed Bisque Brusher: Usman Villatoro MD (Physician) [facility] Service: Infectious Disease Progress Note Hospital Day: LOS: 21 days Post-Op Day: * No surgery found * SUBJECTIVE Patient Summary: CC: Fever, chest pain and altered mental status From [employer] Dealer's admission note on 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 male with significant history of tobacco and drug abuse using daily heroin and methamphetamine, also on Suboxone. He initially presented to [facility] for progressive weakness, lethargy, and ge neralized pain (mostly his chest, neck, back, knees, ankles and toes) for the past 7 days. H e noticed that his ankles and right knee were swollen but not warm or erythematous. Accordbetzy g to his girlfriend, he has been feeling sick and febrile for the past week with poor PO int elisha. Yesterday, she noticed that he seemed like he was hallucinating and talking to himself. He was very weak today that she had to assist him to get into the car to go the the ED. Exam at OSH was significant for point tenderness at the area of the cervical spine and posi tive Kernig's sign. LP was performed to rule out meningitis. IV antibiotics started, ceftria xone 2 gm and vancomycin [address] head and C-spine x-ray performed, MRI attempted but patient decompensated and was intubated for respiratory failure and airway protection. Significant labs: Na 114 (1435 hrs), BUN 81, Crea 2.48, WBC 19.9, Hb 11.6, Plt 51, Tbili 3. 6, AST 188, ALT 155, LA 1.7. CSF: clear, colorless, WBC 0, RBC 3. Protein 31. Glucose 50. Culture with no growth to d ate Blood cultures are reported to be growing GPCs at [facility] Transferred to [facility] for further care. MRI of brain and spine carried out with limited findi ngs due to non-contrast study. Evaluated by Nephrology, acute renal failure attributed to hemodynamics. Evaluated by Dr. Bhardwaj from orthopedics: Does not think patient has ankle septic joint and does not recomme nd surgical intervention. Echocardiogram showed moderate size mobile vegetation attached to the septal tricuspid valv e leaflet, moderate tricuspid regurgitation, moderate pulmonary hypertension with mildly enl arged right ventricle. Evaluated by CTS, surgery not recommended On 10/01, extubated On 10/02, he was transferred out of the ICU. On 10/04, patient had worsening mental status and also became tachypneic. He became more hy ponatremic with worsening renal function. Bilateral moderate sized pleural effusions were n oted on chest CT scan. Bedside ultrasound with bilateral pleural effusion, R>L. Left minimal and without echogenic ity suggestive of infectious pleural effusion. Left effusion is moderate with fibrin strands concerning for complicated/infectious pleural effusion. Right pig tail chest tube placed wi th purulent drainage. Head CT scan negative On 10/05, started on hemodialysis On October 08, left chest tube was placed. Reintubated on October 11. On 10/16-, patient was febrile to 101.4F. Blood cultures were sent. On 10/18, echocardiogram showed possible mobile vegetation at the posterior mitral valve leaf let along with known tricuspid valve vegetation. Right IJ hemodialysis catheter was placed. PICC was discontinued. He complained of abdominal pain and tenderness; CT scan was done salomon t showed mid to distal ileum and right colitis. On 10/19, transesophageal echocardiogram reported as showing no mitral vegetation with large, mobile vegetation at the tricuspid valve and severe tricuspid regurgitation. CT surgery ree valuated the patient; proceeding with medical management. Kidney biopsy done. CC: Staphylococcal sepsis, right-sided endocarditis Chart reviewed Events Overnight: Low grade temperature. PICC placed. Tunneled hemodialysis catheter placed. Transfused 2 units of packed RBCs. Extubated. Indicates mild chest and abdominal pain. Able to suction oral secretions. Denies pain at wills nds and feet. Scheduled Medications clonazePAM 1 mg Oral BID famotidine 20 mg Oral Daily fentaNYL 1 patch Transdermal Q72H gentamicin Topical Daily heparin (porcine) 5000 unit/0.5mL 5,000 Units Subcutaneous 3 times per day lidocaine 10 mL Intradermal Once nafcillin 2 g Intravenous Q4H nystatin 5 mL Mouth/Throat 4x Daily QUEtiapine 100 mg Oral QAM QUEtiapine 100 mg Oral QPM sodium bicarbonate buffer 5 mL Infiltration Once sodium bicarbonate buffer 5 mL Infiltration Once sodium chloride 10 mL Intravenous 2 times per day sodium chloride 10 mL Intravenous 2 times per day sodium citrate anticoagulant 4 % 6 mL Intracatheter Daily Continuous Infusions dexmedetomidine in NS 1.5 mcg/kg/hr (10/22/15 2652) fentaNYL in NS 5 mcg/mL 50 mcg/hr (10/22/15 6540) sodium chloride (IV) 15 mL/hr at 10/14/15 7247 PRN Medications acetaminophen, albumin human, albuterol, aluminum-magnesium hydroxide-simethicone, diphenhy qqIXXRU-alqbsn-lfwkewwoa oral solution, HYDROmorphone OR HYDROmorphone, ipratropium, lip moisturizer, LORazepam, metoclopramide, ondansetron OR ondansetron, pancrelipase (Lip-P rot-Amyl)12,000 units, promethazine, simethicone, sodium bicarbonate, sodium chloride, white petrolatum OBJECTIVE Vital Signs: BP 134/79 mmHg | Pulse 114 | Temp(Src) 98.1 F (36.7 C) (Oral) | Resp 41 | Ht 1.702 m (5 ' 7") | Wt 65.2 kg (143 lb 11.8 oz) | BMI 22.51 kg/m2 | SpO2 96% Temp: [97.2 F (36.2 C)-100.3 F (37.9 C)] 98.1 F (36.7 C) (10/22 399) BP: (98-154)/(55-94) 134/79 mmHg (10/21 599) Heart Rate: [80-118] 114 (10/21 599) Resp: [14-41] 41 (10/21 599) SpO2: [94 %-100 %] 96 % (10/21 599) Weight: [65.2 kg (143 lb 11.8 oz)] 65.2 kg (143 lb 11.8 oz) (10/21 429) FiO2 : [30 %] 30 % (10/20 1954) Physical Exam Vital signs have been reviewed Gen.: Awake and alert. Communicates by mouthing words and signaling with his hands. Not in distress. HEENT: Normocephalic. Anicteric sclerae. No conjunctival petechiae. Dry lips. Improved nasa l mucosa. Neck is supple with no cervical lymphadenopathy. Right IJ tunneled hemodialysis ca theter site is unremarkable - placed 10/20 Cardiovascular: Slightly tachycardic. Regular. Systolic murmur noted Lungs: Decreased breath sounds to bases but no rales, wheezes or rhonchi noted Abdomen: No distention. Soft. No tenderness or palpable masses Skin: Much improved lesions at upper and lower extremities; scabs noted Musculoskeletal: No inflamed looking joints. Good range of motion at hands and feet Neurologic: Awake and alert. Cooperative for the clinical evaluation. Generalized weakness is noted but able to move upper and lower extremities and command Psychiatric: No agitation currently Left upper extremity PICC site in place - placed 10/20 DATA CBC: Lab Results Component Value Date WBC 9.29 10/22/2015 RBC 2.85* 10/22/2015 HGB 8.3* 10/22/2015 HCT 25.4* 10/22/2015 MCV 88.9 10/22/2015 MCH 29.2 10/22/2015 MCHC 32.8 10/22/2015 RDW 51.6 10/22/2015 PLT 407* 10/22/2015 MPV 7.4 10/22/2015 DIFFTYPE AUTOMATED 10/22/2015 WBC: Lab Results Component Value Date WBC 9.29 10/22/2015 NEUTABSMAN 10.38* 10/17/2015 NEUTROABS 7.42* 10/22/2015 NEUTROMAN 86 10/17/2015 LYMPHOABS 0.84* 10/17/2015 LYMPHOMAN 7 10/17/2015 LYMPHSABS 0.74* 10/22/2015 LYMPHOPCT 7.96 10/22/2015 MONOABSMAN 0.48 10/17/2015 MONOMAN 4 10/17/2015 MONOPCT 7.61 10/22/2015 EOSINOABS 0.12 10/17/2015 EOSINOMAN 1 10/17/2015 EOSABS 0.35 10/22/2015 EOSPCT 3.76 10/22/2015 BASOSABS 0.08 10/22/2015 BASOPCT 0.85 10/22/2015 PLTEST ADEQUATE 10/18/2015 BANDSPCT 2 10/17/2015 METAABS 0.26* 10/13/2015 METAPCT 1 10/13/2015 MYELOABS 0.17* 10/09/2015 MYELOPCT 1 10/09/2015 COMDIFF SLIDE SCANNED, AGREES WITH AUTOMATED RESULTS. 10/18/2015 CMP: Lab Results Component Value Date NA 140 10/22/2015 K 3.5 10/22/2015 CL 106 10/22/2015 CO2 20* 10/22/2015 ANIONGAP 18 10/22/2015 GLUF 91 10/22/2015 BUN 24 10/22/2015 CREATININE 2.1* 10/22/2015 BCR 11 10/22/2015 CA 7.7* 10/22/2015 PROT 5.8* 10/22/2015 ALB 1.2* 10/22/2015 GLOB 4.6 10/19/2015 BILITOT 1.5 10/22/2015 ALP 67 10/22/2015 AST 22 10/22/2015 ALT 18 10/22/2015 EGFR 39* 10/22/2015 Lab Results Component Value Date CRP 12.5* 10/22/2015 Lab Results Component Value Date ESR 35* 10/22/2015 Microbiology data: 10/13 C. difficile PCR negative 10/09 C. difficile negative 10/11 HSV oral culture negative 10/05 pleural fluid culture negative 09/30 tracheal aspirate culture grew MSSA 10/17 blood cultures with no growth to date 09/30 blood cultures with no growth 10/18 catheter tip culture with no growth to date Radiology Data: Impression 1. Changes to the tubes and lines, as above. No evidence of a pneumothorax. 2. Patchy bilateral infiltrates, mildly progressive on the right. 3. Unchanged small bilateral pleural effusions. chest 1 view [[id number]] Impression 1. Long segment of wall thickening involving the mid to distal ileum and right colon. This can be seen with infectious, inflammatory, or ischemic enteritis. 2. Mild diffuse mesenteric edema and free fluid. This is likely mostly secondary to patient 's underlying severe anasarca. 3. Decreasing pleural effusions and evidence of septic pulmonary emboli and at the lung bas es. RADIA Electronically signed by Abran Calderon MD on Oct 19 2015 4:13AM Referring Provider Sushma e: [phone] ID: [id number] CT abdomen pelvis without contrast [[id number]] Impression 1. Slight increase in size of the small right pleural effusion with fluid tracking in the fissure. Otherwise stable chest. X-ray chest 1 view [[id number]] Possible mobile vegetation attached to the posterior mitral valve leaflet. This is a new fi nding vs prior Echo. Discussed with ICU physician. 2. Moderate, mobile vegetation attached to the septal tricuspid valve leaflet. Echo cardiac adult complete [[id number]] Impression 1. Overall left ventricular systolic function is normal with, an EF between 65 - 70 %. 2. Severe tricuspid regurgitation present. 3. Large, mobile vegetation attached to the septal tricuspid valve leaflet. ECHO ANITA [ECHO01] PROBLEM LIST Principal Problem: Sepsis (HCC) Active Problems: Hyposmolality and/or hyponatremia MARCEL (acute kidney injury) (HCC) Leucocytosis Thrombocytopenia (HCC) Toxic metabolic encephalopathy Acute respiratory failure with hypoxia (HCC) Heroin abuse Methamphetamine abuse Tobacco abuse Acute septic pulmonary embolism (HCC) Acute infective endocarditis Moderate protein-calorie malnutrition (HCC) ASSESSMENT & PLAN MSSA sepsis, tricuspid valve endocarditis -Patient has MSSA bacteremia, tricuspid valve endocarditis with septic pulmonary emboli re lated to IV drug use -Neck pain and back pain improved; noncontrast MRI of spine and brain on presentation show s no evidence of infection -No evidence of septic arthritis; evaluated by orthopedics -Blood cultures on admission here have no growth. -CT scan performed on October 08 confirmed continued pleural effusion on the left, chest tube placed and d/c'd. CXR shows stable findings. -On 10/17, he was febrile so blood cultures repeated on 10/17 with no growth to date. TTE s howed tricuspid valve vegetation and a new mitral valve vegetation. Transesophageal echocard iogram showed no MV vegetation; Dr. Arias, [facility] recommends to continue medical management. Right upper extremity PICC d/c'd on 10/18, catheter tip culture with no growth. Right IJ hemo dialysis catheter replaced; has tunneled HD cath placed on 10/20. New PICC placed on 10/20 -continue IV nafcillin, day 21 of Abdominal pain -Improving. CT scan shows ileum and right colon wall thickening. He had loose stools but C. difficile on 10/13 was negative. ?embolic/ischemic etiology Encephalopathy, metabolic -improved Acute hypoxemic respiratory failure -Reintubated on 10/11 and extubated today. No significant change in pulmonary appearance on chest x-ray. Noted findings on bedside US MARCEL -No adjustment needed for nafcillin. On dialysis. Renal biopsy done on 10/19, results pendi ng Abnormal LFTs -Mild Total bilirubin elevation, overall better Petechial/purpuric rash -Suspected ecthyma. Improving. Skin care. IV drug use -Not a candidate for outpatient IV antibiotics. HIV negative. Anemia -most likely multifactorial: S/p blood transfusion Case discussed with Dr. Mahamed Swann to assume ID care on 10/22 Code Status: Full Code USMAN VILLATORO MD 10/22/2015 phyllis, Melchor warner MD - 10/22/2015 1:06 AM PDTFormatting of this note might be different from the origi nal. Progress Notes by Melchor Joseph MD at 10/22/15105 Author: Melchor Joseph MD Service: Auto Dealer Author Type: Physician Filed: 10/22/15 0554 Date of Service: 10/22/15105 Status: Signed Bisque Brusher: Melchor Joseph MD (Physician) [facility] Service: Auto Dealer Progress Note Yang Ridley 30 y.o. Hospital Day: LOS: 21 days Post-Op Day: * No surgery found * Consulting Physicians Treatment Team: Consulting Physician: Chris Swann DO Consulting Physician: Renetta Buck MD Consulting Physician: Gonzalez Bhardwaj MD Surgeon: Blanca Arias MD Consulting Physician: Blanca Arias MD Consulting Physician: Femi Vaughan MD Admitting Provider: Carly Thomas DO SUBJECTIVE Patient Summary: The patient is a 30 y.o. male with significant history of tobacco an d drug abuse using daily heroin and methamphetamine, also on Suboxone. He initially presen latasha to [facility] for progressive weakness, lethargy, and generalized pain (most ly his chest, neck, back, knees, ankles and toes) for 7 days. According to his girlfriend, he was feeling sick and febrile for a week with poor PO intake; she also noticed that his an kles and right knee were swollen but not warm or erythematous, and he seemed to be "halluinc ating and talking to himself". Exam at OSH was significant for point tenderness at the area of the cervical spine and posi tive Kernig's sign. LP was performed to rule out meningitis. IV antibiotics started, ceftria xone 2 gm and vancomycin [address] head and C-spine x-ray performed, MRI attempted but patient decompensated and was intubated for respiratory failure and airway protection. Significant labs: Na 114 (1435 hrs), BUN 81, Crea 2.48, WBC 19.9, Hb 11.6, Plt 51, Tbili 3. 6, AST 188, ALT 155, LA 1.7. CSF: clear, colorless, WBC 0, RBC 3. Transferred to [facility] for further care. Timeline: Evaluated by Nephrology, acute renal failure attributed to hemodynamics. Evaluated by Dr. Bhardwaj from orthopedics: Does not think patient has ankle septic joint and does not re commend surgical intervention. Echocardiogram showed moderate size mobile vegetation attached to the septal tricuspid v alve leaflet, moderate tricuspid regurgitation, moderate pulmonary hypertension with mildly enlarged right ventricle. Evaluated by CTS, surgery not recommended On 10/01, extubated. MRI spine w/o evidence abscess On 10/02, he was transferred out of the ICU. 10/04-Transferred to ICU for worsening mental status, drop of Na from 122 to 117 and wors ening renal function 10/05-HD line placed, started on dialysis. Right pigtail chest tube with drainage of 1400 ml serosanguineous exudate 10/06-Dialysis session. Improved encephalopathy. Anxiety requiring high dose precedex. 10/07-Right pigtail chest catheter removed 10/08-dialysis again today, 3L removed; Cxr with bilateral effusions which appear to be a bout the same as yesterday; will repeat CT chest to evaluate further; continues to be anxiou s, c/o pain 10/09-dialysis again today, 3.5L removed, now with left pleural chest catheter placed ove rnight, immediately drained 850cc, only 50cc during the day today; intermittent fevers, tach ycardia persists; add seroquel BID 10/10--dialysis again today with anticipated 2.5L removal; L pleural chest catheter remov ed, f/u Cxr in 1 hour; if no issues post dialysis and f/u cxr will transfer to acute care be d 10/11--worsening hypoxia, tachypnea, and associated tachycardia so electively re-intubate d 10/12--restarted Levophed during dialysis today; fio2 weaned to 30%; HSV oral swab negati ve 10/13-- rested comfortably overnight, temps better, restarted tube feeds 10/14-- No acute events. HD today then attempt SBT 10/15- Hodling extubation 10/16-Holding extubation, transfused 2 units PRBC 10/17-Febrile, BC sent. Echo with new vegetation on anterior leaflet of mitral valve 10/18--ANITA (per Dr Kimble) did NOT show vegetation of the mitral valve; will proceed with kidney biopsy today and tunneled catheter placement tomorrow; repeat cx's w/o growth so far 10/19--Kidney biopsy today; Ketamine added for sedation. Evaluated by CT surgery; no plans for surgery at this time 10/20--Tunneled cath placed; extubated to nasal canula will attempt, picc line placed, freddie neled cath placed. Overnight events: Extubated to canula OBJECTIVE VITAL SIGNS Temp: [98.2 F (36.8 C)-100.3 F (37.9 C)] 100.3 F (37.9 C) Heart Rate: [80-109] 100 Resp: [14-28] 28 BP: (98-154)/(55-84) 147/75 mmHg FiO2 : [30 %] 30 % Intake/Output Summary (Last 24 hours) at 10/22/15 0106 Last data filed at 10/21/15 1838 Gross per 24 hour Intake 4801.27 ml Output 4950 ml Net -148.73 ml EXAM GEN: on nasal canula, slightly tachypneic, strong cough of productive phlegm. NEURO: PERRLA, no facial asymmetry, moves all extremities well, non focal HEENT: sclerae clear, nonicteric, oral mmm, NECK: supple, trachea midline HEART: Sinus tachycardia 100's to 110's, S1/S2, 2/6 systolic murmur LUNGS: bibasilar crackles, no wheezing, or rales, symmetric chest expansion, even/unlabored respirations ABD: soft, non-tender, BS hypoactive, EXTR: Trace 1+ edema all extremities, no clubbing or cyanosis SKIN: diffuse purpuric palpable rash bilateral anterior lower extremities, also hand and fe et. Blisters noted within rash. Dressings to bilat elbows CDI. No e/o nec fasc or myonecr osis at the elbows anteriorly. LINES/TUBES: picc line 8-3 Right tunneled cath 10-20 DATA Recent Labs Lab 10/21/15 0358 10/20/15 0458 10/19/15 0452 10/18/15 0511 10/17/15 1002 10/17/15 0335 10/16/15 0328 10/15/15 0547 WBC 7.96 10.26 9.56 11.38* 12.06* 10.13 -- 13.71* 17.10* RBC 2.40* 2.68* 2.73* 2.91* 3.12* 2.10* -- 2.39* 2.38* HGB 6.9* 7.8* 8.0* 8.3* 8.9* 6.1* -- 6.9* 6.9* HCT 21.3* 23.7* 24.3* 25.7* 27.7* 19.0* -- 21.5* 20.8* MCV 89.1 88.4 88.9 88.3 88.8 90.3 -- 89.7 87.5 MCH 28.8 29.1 29.2 28.7 28.6 29.1 -- 28.9 29.0 MCHC 32.3 32.9 32.8 32.5 32.2 32.3 -- 32.2 33.2 RDW 53.4* 54.3* 55.1* 52.5 48.6 55.1* -- 51.6 50.3 PLT 323 291 224 204 203 186 -- 164 156 MPV 7.5 7.9 7.7 7.8 8.4 8.3 -- 8.8 7.9 BANDSABS -- -- -- -- 0.24* -- -- 0.55* 0.17 NEUTROABS 5.97 8.45* 7.82* 9.90* -- 8.54* < > -- -- LYMPHSABS 0.77* 0.64* 0.63* 0.51* -- 0.68* < > -- -- MONOSABS 0.74 0.78 0.62 0.64 -- 0.63 < > -- -- BASOSABS 0.06 0.07 0.07 0.11* -- 0.05 < > -- -- EOSABS 0.41 0.32 0.42 0.22 -- 0.22 < > -- -- MORPH -- -- -- NORMAL PLT MORPH 1+ NORMAL PLT MORPH -- 1+ RBC AND PLT MORPHOLOGY AP PEAR NORMAL < > = values in this interval not displayed. Recent Labs Lab 10/21/15 0358 10/20/15 0458 10/19/15 0452 NA 137 137 131* K 3.6 3.5 3.3* CL 102 102 98* CO2 20* 19* 18* ANIONGAP 19 20 19 GLUF 104* 85 92 BUN 38* 25 58* CREATININE 3.0* 2.5* 4.1* BCR 13 10 14 CA 7.6* 7.5* 7.4* ALB 1.2* 1.3* 1.3* GLOB -- -- 4.6 AG -- -- 0.3* PROT 5.7* 5.8* 5.9* BILITOT 1.7* 1.3 1.7* ALT 20 20 22 AST 20 24 29 EGFR 26* 32* 18* PHOS 7.7* 5.1* 7.1* MG 1.8 2.0 2.0 Recent Labs Lab 10/19/15 0517 10/19/15 0452 10/15/15 0357 INR 1.1 DUPLICATE ORDER 1.[address] ABDOMEN AND PELVIS EXAM DATE: 10/19/2015 03:42 AM. CLINICAL HISTORY: Septic emboli, abdominal distention and pain COMPARISONS: 10/05/2015. TECHNIQUE: Routine axial helical CT imaging was performed through the abdomen and pelvis wi th oral but without IV contrast. Reconstructions: Coronal and sagittal. In accordance with CT protocol optimization, one or more of the following dose reduction te chniques were utilized for this exam: automated exposure control, adjustment of mA and/or KV based on patient size, or use of iterative reconstructive technique. FINDINGS: Lung Bases: Decreasing loculated pleural effusions and multifocal airspace opacities again noted, consistent with septic emboli. Noncontrast abdominal organs: Grossly stable and unremarkable noncontrast appearance to the liver, gallbladder, pancreas, adrenals, kidneys, and spleen. Peritoneal Cavity: Long segment of wall thickening involving the mid to distal ileum and ri ght colon. Mild diffuse mesenteric edema and free fluid. No gross free air. No obstruction. Pelvic Organs: No bladder stones or wall thickening. Noncontrast images of the visualized p elvic organs are unremarkable. Vasculature: Unremarkable. Other: Severe generalized anasarca. IMPRESSION: 1. Long segment of wall thickening involving the mid to distal ileum and right colon. Thi s can be seen with infectious, inflammatory, or ischemic enteritis. 2. Mild diffuse mesenteric edema and free fluid. This is likely mostly secondary to patient 's underlying severe anasarca. 3. Decreasing pleural effusions and evidence of septic pulmonary emboli and at the lung bas es. Ct Chest Without Contrast 10/09/2015 1. Significant interval decrease in size of right pleural effusion, now small. Moderate to large left pleural effusion appears slightly decreased in size. Associated cons olidative opacity seen involving the lower lobes, likely representing pneumonia or atelectas is. 2. Essentially unchanged appearance of numerous bilateral cavitary lesions or airspace opacities 3. Wedge-shaped hypodensity in the anterior spleen, suspicious for an infarct. E lectronically signed by Ramone Abarca MD on 10/09/2015 4:42 PM Xr Chest 1 View 10/14/2015 1. Unchanged appearance of bilateral airspace and nodular/cavity opacities. 2. Unchanged at least small bilateral pleural effusions. LEM LIST Principal Problem: Sepsis (HCC) Active Problems: Hyposmolality and/or hyponatremia MARCEL (acute kidney injury) (HCC) Leucocytosis Thrombocytopenia (HCC) Toxic metabolic encephalopathy Acute respiratory failure with hypoxia (HCC) Heroin abuse Methamphetamine abuse Tobacco abuse Acute septic pulmonary embolism (HCC) Acute infective endocarditis Moderate protein-calorie malnutrition (HCC) ASSESSMENT & PLAN NEURO: Septic encephalopathy-Resolved. Continue seroquel for anxiety/insomnia On dex, fentanyl, klonopin, will try to switch to fentanyl patch CV: Septic shock resolved. Tricuspid IE on septal leaflet : no ind for surgery PULM: extubated to ny on 8-3 Pulmonary septic embolic from MSSA tricuspid valve: coughing out vigorously CT chest repeated 10/08--Right pleural effusion less s/p pigtail chest tube 10/05. Exudati ve by Lights criteria. PH, glucose not consistent with complicated infected effusion. remove d Left pleural effusion, much improved s/p pigtail catheter placed 10/08, immediately drain ed 850cc---removed (10/10). GI/NUTRITION: Severe malnutrition secondary to infectious process. Mild Transaminitis (resolved) likely sepsis related . Hepatitis serologies and HIV nega tive. Abdominal distension and abdominal pain. CT abdomen with oral contrast with thickening o f terminal ileum and right colon. Clinically w/o GIB. No abd pain and mild loose stools with out blood; Serial lactates.10/18-0.3/0.3/0.4 Concern for congested venous small bowel insuffic iency. 10/13Hypertriglyceridemia--trending downward, 251 (10/20) from 438 , avoid propofol RENAL/LYTES: MARCEL. Anuric. Transitioned to conventional HD. 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 Vora) UA with hematuria. C3 low. C4 wnl. Low C3 l Tunneled catheter placement and new PICC line placement (10/20) Cortisol and TSH wnl Started to make urine ID: MSSA Tricuspid Infective Endocarditis---ANITA 10/18 r/o any mitral valve involvement Followed by ID. Currently on Nafcillin BC from 10/17 in progress--no growth so far HEME: Anemia-Multifactorial. Required blood transfusion 10/06 (2 units PRBC); 1 unit given 10/09 , 1u 10/13. Hb 6.1 10/16. Transfused 2 units PRBCs with appropriate response. Haptoglobin 201 (10/16); w Continue to monitor, no e/o active bleeidng, haptoglobin wnl ENDO: Monitor BS. Goal 80-180. MUSC/SKIN: Vasculitis from IE/sepsis. Pt with purpura rash with blistering and bullae. 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 (no scd's d/t skin integrity of legs) VAP bundle: chlorhexadine oral care, HOB >30 degrees Disposition: Critical care Code Status: Full Code *Please bill 40 minutes of critical care time spent evaluating the patient, reviewing the d michael and formulating a plan exclusive of all other procedures. MELCHOR JOSEPH MD 10/22/2015 1:06 AM onversion Moses saction, Provider Unknown - 10/21/2015 9:28 PM PDTFormatting of this note might be differen t from the original. Progress Notes by Selina Maurer RRT at 10/21/15 0906 Author: Selina L Erasto, RAILCAR SWITCHMAN Service: (none) Author Type: Certified Respiratory Therapis t Filed: 10/21/152146 Date of Service: 10/21/152127 Status: Signed Bisque Brusher: Selina Maurer RRT (Registered Respiratory Therapist) Patient alert and able to follow commands prior to extubation. Patient extubated at 2100 to 2LNC and tolerated well. RN Katt present at time of extubation. Delfino Urban MD - 10/21/2015 11:11 AM PDT Progress Notes by Delfino Vora MD at 10/21/15 1111 Author: Delfino Vora MD Service: Nephrology Author Type: Physician Filed: 10/21/15 1548 Date of Service: 10/21/151110 Status: Signed Bisque Brusher: Delfino Vora MD (Physician) [facility] Service: Nephrology Renal Consult Progress Note Yang Ridley [id number] Hospital Day: LOS: 20 days SUBJECTIVE Patient Summary: Patient seen and examined. Intubated and sedated Scheduled Medications clonazePAM 1 mg Oral BID famotidine 20 mg Oral Daily gentamicin Topical Daily heparin (porcine) 5000 unit/0.5mL 5,000 Units Subcutaneous 3 times per day lidocaine 10 mL Intradermal Once nafcillin 2 g Intravenous Q4H nystatin 5 mL Mouth/Throat 4x Daily QUEtiapine 100 mg Oral QAM QUEtiapine 100 mg Oral QPM sodium bicarbonate buffer 5 mL Infiltration Once sodium chloride 10 mL Intravenous 2 times per day sodium chloride 10 mL Intravenous 2 times per day sodium citrate anticoagulant 4 % 6 mL Intracatheter Daily Continuous Infusions dexmedetomidine in NS 1.5 mcg/kg/hr (10/21/15 0920) fentaNYL in NS 5 mcg/mL 200 mcg/hr (10/21/15 0530) sodium chloride (IV) 15 mL/hr at 10/14/15 1547 PRN Medications acetaminophen, albumin human, albuterol, aluminum-magnesium hydroxide-simethicone, diphenhy lbECZWF-myytrz-bkhfhjwyy oral solution, HYDROmorphone OR HYDROmorphone, ipratropium, lip moisturizer, LORazepam, metoclopramide, ondansetron OR ondansetron, pancrelipase (Lip-P rot-Amyl)12,000 units, promethazine, simethicone, sodium bicarbonate, sodium chloride, white petrolatum OBJECTIVE Vital Signs: BP 100/59 mmHg | Pulse 85 | Temp(Src) 98.5 F (36.9 C) (Oral) | Resp 16 | Ht 1.702 m (5' 7") | Wt 68.3 kg (150 lb 9.2 oz) | BMI 23.58 kg/m2 | SpO2 99% Intake/Output Summary (Last 24 hours) at 10/21/15 1111 Last data filed at 10/21/15 0925 Gross per 24 hour Intake 2778.1 ml Output 650 ml Net 2128.1 ml Gen: NAD, intubated Neck: rt ij temp catheter Pulm: CTA b/l, good air movement, no w/r/r CV: RRR, nl S1S2, no rub Abd: Soft, NT/ND, NABS Ext: no c/c/e Access:rt ij temp catheter present DATA Recent Labs Lab 10/21/1535710/20/1545710/19/1545110/18/15 0511 CREATININE 3.0* 2.5* 4.1* 3.6* Recent Labs Lab 10/21/1535710/20/1545710/19/15 04510/18/15 0511 NA 137 137 131* 133* K 3.6 3.5 3.3* 3.6 CL 102 102 98* 100 CO2 20* 19* 18* 20* BUN 38* 25 58* 47* CA 7.6* 7.5* 7.4* 7.6* PHOS 7.7* 5.1* 7.1* 5.5* MG 1.8 2.0 2.0 2.0 Recent Labs Lab 10/21/1535710/20/1545710/19/15 0517 10/19/152 10/18/15 0511 10/15/15 0357 ALB 1.2* 1.3* -- 1.3* 1.4* < > -- ALP 66 72 -- 73 80 < > -- AST 20 24 -- 29 26 < > -- ALT 20 20 -- 22 17 < > -- INR -- -- 1.1 DUPLICATE ORDER -- -- 1.1 < > = values in this interval not displayed. Recent Labs Lab 10/21/15 0358 10/20/158 10/19/15 0452 10/18/15 0511 WBC 7.96 10.26 9.56 11.38* RBC 2.40* 2.68* 2.73* 2.91* HGB 6.9* 7.8* 8.0* 8.3* HCT 21.3* 23.7* 24.3* 25.7* PLT 323 291 224 204 MCV 89.1 88.4 88.9 88.3 RDW 53.4* 54.3* 55.1* 52.5 Recent Labs Lab 10/19/15 0517 10/19/15 0452 10/15/15 0357 INR 1.1 DUPLICATE ORDER 1.1 PROBLEM LIST Principal Problem: Sepsis (HCC) Active Problems: Hyposmolality and/or hyponatremia MARCEL (acute kidney injury) (HCC) Leucocytosis Thrombocytopenia (HCC) Toxic metabolic encephalopathy Acute respiratory failure with hypoxia (HCC) Heroin abuse Methamphetamine abuse Tobacco abuse Acute septic pulmonary embolism (HCC) Acute infective endocarditis Moderate protein-calorie malnutrition (HCC) ASSESSMENT & PLAN The patient is a 30 y.o. male with significant history of tobacco and drug abuse using jennifer y heroin and methamphetamine, also on Suboxone. He initially presented to [facility] for progressive weakness, lethargy, and generalized pain for the past 7 days. He noti eyd that his ankles and right knee were swollen but not warm or erythematous. According to h is girlfriend, he has been feeling sick and febrile for the past week with poor oral intake. LP was performed to rule out meningitis. IV antibiotics started, ceftriaxone 2 gm and vanco mycin [address] head and C-spine x-ray performed, patient decompensated and was intubat ed for respiratory failure and airway protection and admitted to the ICU. Significant labs on initial presentation : Na 114 (1435 hrs), BUN 81, Crea 2.48, Over next 12-24 hrs, his sodium abruptly improved to a peak of126 by 6 AM on 10/01, so c ounter measures were started to avoid over correction. Patient received DDAVP X2 X 2 MCG AT 4 AND 8 AM ON 10/01 and is on D5W AT 200 ML/HR. He has never been hospitalized because of low sodium. He has never been symptomatic because of low sodium. There are no herbal preparation intake; he does not have hx of liver cirrhos is. He does not have hx of CHF, hypothyroidism or adrenal insufficiency.There is no hx of ch ronic diarrhea and no N/V. ARF Differential includes, post infectious vs atn from sepsis, made 650ml of urine, s/p kidney biopsy yesterday, results pending Dialyss today, will aim for 2l uf Willconvert his temp catheter to PC, we are aware of his h/o iv drug abuse but considerin g that dialysis is a life saving treatment, will go ahead and place a PC.(IR has been consul latasha) daily weights and strict I/O's Diet should be 0.8 gm/kg protein, 1 gm PO4, 2 gm Na, and 2 gm K restricted diet. medications to be dosed for estimated eGFR Of 15 NSAIDs (including FRASER 2 inhibitors) should not be used. Magnesium and aluminum containing antacids should be avoided. Magnesium or phosphorus containing laxatives should be avoided. Code Status: Full Code Delfino Vora MD 10/21/2015 11:11 AM onversion Transaction, Provider Unknown - 10/21/2015 8:22 AM PDTFormatting of this note might be dif ferent from the original. Case Management by SAMEERA Huggins at 10/21/15821 Author: SAMEERA Huggins Service: (none) Author Type: Fuse Assembler Filed: 10/21/15 0956 Date of Service: 10/21/15821 Status: Addendum Bisque Brusher: SAMEERA Huggins (Fuse Assembler) Related Notes: Original Note by SAMEERA Huggins (Fuse Assembler) filed at 10/21/15823 Email to Sonyn Noriega who is covering for Erica Kohli as dialysis coordinator. Inf ormed of pt's eventual need for out pt dialysis for at least 6 months. Informed Sonny of s ocial concerns and referral to Risk Management regarding IV access via tunneled catheter whe n pt is eventually discharged. Addendum: Attended morning rounds. Pt has tricuspid valve vegetation complicated by MARCEL an d encephalopathy. Pt was hallucinating last night (seeing giant rotating apples). Pt this m orning is oriented and follows commands. Knows he was hallucinating last night. Pt is being dialyzed. PICC line to be placed. Usman Blount MD - 10/21/2015 7:40 AM PDT Progress Notes by Usman Villatoro MD at 10/21/15739 Author: Usman Villatoro MD Service: Infectious Disease Author Type: Physician Filed: 10/21/15837 Date of Service: 10/21/15739 Status: Signed Bisque Brusher: Usman Villatoro MD (Physician) [facility] Service: Infectious Disease Progress Note Hospital Day: LOS: 20 days Post-Op Day: * No surgery found * SUBJECTIVE Patient Summary: CC: Fever, chest pain and altered mental status From Auto Dealer's admission note on 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 male with significant history of tobacco and drug abuse using daily heroin and methamphetamine, also on Suboxone. He initially presented to [facility] for progressive weakness, lethargy, and ge neralized pain (mostly his chest, neck, back, knees, ankles and toes) for the past 7 days. H e noticed that his ankles and right knee were swollen but not warm or erythematous. Nessa g to his girlfriend, he has been feeling sick and febrile for the past week with poor PO int elisha. Yesterday, she noticed that he seemed like he was hallucinating and talking to himself. He was very weak today that she had to assist him to get into the car to go the the ED. Exam at OSH was significant for point tenderness at the area of the cervical spine and posi tive Kernig's sign. LP was performed to rule out meningitis. IV antibiotics started, ceftria xone 2 gm and vancomycin [address] head and C-spine x-ray performed, MRI attempted but patient decompensated and was intubated for respiratory failure and airway protection. Significant labs: Na 114 (1435 hrs), BUN 81, Crea 2.48, WBC 19.9, Hb 11.6, Plt 51, Tbili 3. 6, AST 188, ALT 155, LA 1.7. CSF: clear, colorless, WBC 0, RBC 3. Protein 31. Glucose 50. Culture with no growth to d ate Blood cultures are reported to be growing GPCs at [facility] Transferred to [facility] for further care. MRI of brain and spine carried out with limited findi ngs due to non-contrast study. Evaluated by Nephrology, acute renal failure attributed to hemodynamics. Evaluated by Dr. Bhardwaj from orthopedics: Does not think patient has ankle septic joint and does not recomme nd surgical intervention. Echocardiogram showed moderate size mobile vegetation attached to the septal tricuspid valv e leaflet, moderate tricuspid regurgitation, moderate pulmonary hypertension with mildly enl arged right ventricle. Evaluated by CTS, surgery not recommended On 10/01, extubated On 10/02, he was transferred out of the ICU. On 10/04, patient had worsening mental status and also became tachypneic. He became more hy ponatremic with worsening renal function. Bilateral moderate sized pleural effusions were n oted on chest CT scan. Bedside ultrasound with bilateral pleural effusion, R>L. Left minimal and without echogenic ity suggestive of infectious pleural effusion. Left effusion is moderate with fibrin strands concerning for complicated/infectious pleural effusion. Right pig tail chest tube placed wi th purulent drainage. Head CT scan negative On 10/05, started on hemodialysis On October 08, left chest tube was placed. Reintubated on October 11. On 10/16-, patient was febrile to 101.4F. Blood cultures were sent. On 10/18, echocardiogram showed possible mobile vegetation at the posterior mitral valve leaf let along with known tricuspid valve vegetation. Right IJ hemodialysis catheter was placed. PICC was discontinued. He complained of abdominal pain and tenderness; CT scan was done salomon t showed mid to distal ileum and right colitis. On 10/19, transesophageal echocardiogram reported as showing no mitral vegetation with large, mobile vegetation at the tricuspid valve and severe tricuspid regurgitation. CT surgery ree valuated the patient; proceeding with medical management. CC: Staphylococcal sepsis, right-sided endocarditis Chart reviewed Events Overnight: Kidney biopsy done yesterday. Noted anxiety/confusion with sedation holiday. T-max of 100.5F. Currently sedated. Intubated and on ventilatory support. Scheduled Medications clonazePAM 1 mg Oral BID famotidine 20 mg Oral Daily gentamicin Topical Daily heparin (porcine) 5000 unit/0.5mL 5,000 Units Subcutaneous 3 times per day midazolam 5 mg Intravenous Once nafcillin 2 g Intravenous Q4H nystatin 5 mL Mouth/Throat 4x Daily QUEtiapine 100 mg Oral QAM QUEtiapine 100 mg Oral QPM sodium chloride 10 mL Intravenous 2 times per day sodium citrate anticoagulant 4 % 6 mL Intracatheter Daily Continuous Infusions dexmedetomidine in NS 1.5 mcg/kg/hr (10/21/15529) fentaNYL in NS 5 mcg/mL 200 mcg/hr (10/21/15 05) ketamine (KETALAR) infusion Stopped (10/21/15 0500) sodium chloride (IV) 15 mL/hr at 10/14/15 1547 PRN Medications acetaminophen, albumin human, albuterol, aluminum-magnesium hydroxide-simethicone, diphenhy mwXCWXF-arbosu-ogbwyizit oral solution, HYDROmorphone OR HYDROmorphone, ipratropium, lid ocaine, lip moisturizer, LORazepam, metoclopramide, ondansetron OR ondansetron, pancreli pase (Ygm-Lxyi-Neqn)12,000 units, promethazine, simethicone, sodium bicarbonate buffer, sodi um bicarbonate, sodium chloride, white petrolatum OBJECTIVE Vital Signs: BP 118/71 mmHg | Pulse 85 | Temp(Src) 100 F (37.8 C) (Axillary) | Resp 15 | Ht 1.702 m (5' 7") | Wt 68.3 kg (150 lb 9.2 oz) | BMI 23.58 kg/m2 | SpO2 100% Temp: [99 F (37.2 C)-100.5 F (38.1 C)] 100 F (37.8 C) (10/200) BP: (99-146)/(56-95) 118/71 mmHg (10/20 599) Heart Rate: [82-119] 85 (10/20 599) Resp: [14-40] 15 (10/20 599) SpO2: [97 %-100 %] 100 % (08/03 0600) FiO2 : [30 %-97 %] 30 % (10/20 0400) Physical Exam Vital signs have been reviewed Gen.: Intubated, on ventilatory support. Sedated. Undergoing hemodialysis. HEENT: Anicteric sclerae. Pupils are reactive to light. Improved appearance of nasal, oral labial mucosa. Right IJ HD catheter Lungs: Mechanical breath sounds Cardiovascular: RRR. No murmur Abdomen: No distention. Soft. No tenderness or palpable masses Skin: Petechial/purpuric lesions at upper and lower extremities improving - protective dres sings in place; sites of prior vesicles noted at legs - scabbed Musculoskeletal: No inflamed looking joints DATA CBC: Lab Results Component Value Date WBC 7.96 10/21/2015 RBC 2.40* 10/21/2015 HGB 6.9* 10/21/2015 HCT 21.3* 10/21/2015 MCV 89.1 10/21/2015 MCH 28.8 10/21/2015 MCHC 32.3 10/21/2015 RDW 53.4* 10/21/2015 PLT 323 10/21/2015 MPV 7.5 10/21/2015 DIFFTYPE AUTOMATED 10/21/2015 WBC: Lab Results Component Value Date WBC 7.96 10/21/2015 NEUTABSMAN 10.38* 10/17/2015 NEUTROABS 5.97 10/21/2015 NEUTROMAN 86 10/17/2015 LYMPHOABS 0.84* 10/17/2015 LYMPHOMAN 7 10/17/2015 LYMPHSABS 0.77* 10/21/2015 LYMPHOPCT 9.68 10/21/2015 MONOABSMAN 0.48 10/17/2015 MONOMAN 4 10/17/2015 MONOPCT 9.34 10/21/2015 EOSINOABS 0.12 10/17/2015 EOSINOMAN 1 10/17/2015 EOSABS 0.41 10/21/2015 EOSPCT 5.10 10/21/2015 BASOSABS 0.06 10/21/2015 BASOPCT 0.80 10/21/2015 PLTEST ADEQUATE 10/18/2015 BANDSPCT 2 10/17/2015 METAABS 0.26* 10/13/2015 METAPCT 1 10/13/2015 MYELOABS 0.17* 10/09/2015 MYELOPCT 1 10/09/2015 COMDIFF SLIDE SCANNED, AGREES WITH AUTOMATED RESULTS. 10/18/2015 CMP: Lab Results Component Value Date NA 137 10/21/2015 K 3.6 10/21/2015 CL 102 10/21/2015 CO2 20* 10/21/2015 ANIONGAP 19 10/21/2015 GLUF 104* 10/21/2015 BUN 38* 10/21/2015 CREATININE 3.0* 10/21/2015 BCR 13 10/21/2015 CA 7.6* 10/21/2015 PROT 5.7* 10/21/2015 ALB 1.2* 10/21/2015 GLOB 4.6 10/19/2015 BILITOT 1.7* 10/21/2015 ALP 66 10/21/2015 AST 20 10/21/2015 ALT 20 10/21/2015 EGFR 26* 10/21/2015 No results found for: CRP No results found for: ESR Microbiology data: 10/13 C. difficile PCR negative 10/09 C. difficile negative 10/11 HSV oral culture negative 10/05 pleural fluid culture negative 09/30 tracheal aspirate culture grew MSSA 10/17 blood cultures with no growth to date 09/30 blood cultures with no growth 10/18 catheter tip culture with no growth to date Impression 1. Long segment of wall thickening involving the mid to distal ileum and right colon. This can be seen with infectious, inflammatory, or ischemic enteritis. 2. Mild diffuse mesenteric edema and free fluid. This is likely mostly secondary to patient 's underlying severe anasarca. 3. Decreasing pleural effusions and evidence of septic pulmonary emboli and at the lung bas es. RADIA Electronically signed by Abran Calderon MD on Oct 19 2015 4:13AM Referring Provider Sushma e: [phone] ID: [id number] CT abdomen pelvis without contrast [[id number]] Impression 1. Slight increase in size of the small right pleural effusion with fluid tracking in the fissure. Otherwise stable chest. X-ray chest 1 view [[id number]] Possible mobile vegetation attached to the posterior mitral valve leaflet. This is a new fi nding vs prior Echo. Discussed with ICU physician. 2. Moderate, mobile vegetation attached to the septal tricuspid valve leaflet. Echo cardiac adult complete [[id number]] PROBLEM LIST Principal Problem: Sepsis (HCC) Active Problems: Hyposmolality and/or hyponatremia MARCEL (acute kidney injury) (HCC) Leucocytosis Thrombocytopenia (HCC) Toxic metabolic encephalopathy Acute respiratory failure with hypoxia (HCC) Heroin abuse Methamphetamine abuse Tobacco abuse Acute septic pulmonary embolism (HCC) Acute infective endocarditis Moderate protein-calorie malnutrition (HCC) ASSESSMENT & PLAN Gram-positive sepsis, MSSA tricuspid valve endocarditis -Patient has MSSA bacteremia, tricuspid valve endocarditis with septic pulmonary emboli re lated to IV drug use -Neck pain and back pain improved; noncontrast MRI of spine and brain on presentation show s no evidence of infection -No evidence of septic arthritis; evaluated by orthopedics -Blood cultures on admission here have no growth. -CT scan performed on October 08 confirmed continued pleural effusion on the left, chest tube placed and d/c'd. CXR shows stable findings. -On 10/17, he was febrile so blood cultures repeated on 10/17 with no growth to date. TTE s howed tricuspid valve vegetation and a new mitral valve vegetation. Transesophageal echocard iogram showed no MV vegetation; Dr. Arias, [facility] recommends to continue medical management. Right upper extremity PICC d/c'd on 10/18, catheter tip culture with no growth. Right IJ hemo dialysis catheter has been replaced. -continue IV nafcillin, day 20 of -may replace PICC and place tunneled HD catheter today Abdominal pain -CT scan shows ileum and right colon wall thickening. He had loose stools but C. difficile on 10/13 was negative. ?embolic/ischemic etiology Encephalopathy, metabolic -currently sedated; was anxious and hallucinating during sedation holiday. Off ketamine Acute hypoxemic respiratory failure -Reintubated on 10/11. No significant change in pulmonary appearance on chest x-ray. Noted findings on bedside US MARCEL -No adjustment needed for nafcillin. On dialysis. Renal biopsy done on 07/19 Abnormal LFTs -Mild TB elevation, overall better Petechial/purpuric rash -Suspected ecthyma. Improving. Skin care. IV drug use -Not a candidate for outpatient IV antibiotics. HIV negative. Anemia -most likely multifactorial: Inflammation, hemolysis, blood draws Case discussed with Dr. Munoz Code Status: Full Code USMAN VILLATORO MD 10/21/2015 Marylou Fermin ARNP - 10/21/2015 7:24 AM PDTFormatting of this note might be different from the or iginal. Progress Notes by YAIR Gambino at 10/21/15723 Author: YAIR Gambino Service: Auto Dealer Author Type: Advanced Registere d Nurse Practitioner Filed: 10/21/15 1001 Date of Service: 10/21/15723 Status: Signed Bisque Brusher: YAIR Gambino (Advanced Registered Nurse Practitioner) [facility] Service: Auto Dealer Progress Note Yang Ridley 30 y.o. Hospital Day: LOS: 20 days Post-Op Day: * No surgery found * Consulting Physicians Treatment Team: Consulting Physician: Chris Swann DO Consulting Physician: Renetta Buck MD Consulting Physician: Gonzalez Bhardwaj MD Surgeon: Blanca Arias MD Consulting Physician: Blanca Arias MD Admitting Provider: Carly Thomas DO SUBJECTIVE Patient Summary: The patient is a 30 y.o. male with significant history of tobacco an d drug abuse using daily heroin and methamphetamine, also on Suboxone. He initially presen latasha to [facility] for progressive weakness, lethargy, and generalized pain (most ly his chest, neck, back, knees, ankles and toes) for 7 days. According to his girlfriend, he was feeling sick and febrile for a week with poor PO intake; she also noticed that his an kles and right knee were swollen but not warm or erythematous, and he seemed to be "halluinc ating and talking to himself". Exam at OSH was significant for point tenderness at the area of the cervical spine and posi tive Kernig's sign. LP was performed to rule out meningitis. IV antibiotics started, ceftria xone 2 gm and vancomycin [address] head and C-spine x-ray performed, MRI attempted but patient decompensated and was intubated for respiratory failure and airway protection. Significant labs: Na 114 (1435 hrs), BUN 81, Crea 2.48, WBC 19.9, Hb 11.6, Plt 51, Tbili 3. 6, AST 188, ALT 155, LA 1.7. CSF: clear, colorless, WBC 0, RBC 3. Transferred to [facility] for further care. Timeline: Evaluated by Nephrology, acute renal failure attributed to hemodynamics. Evaluated by Dr. Bhardwaj from orthopedics: Does not think patient has ankle septic joint and does not re commend surgical intervention. Echocardiogram showed moderate size mobile vegetation attached to the septal tricuspid v alve leaflet, moderate tricuspid regurgitation, moderate pulmonary hypertension with mildly enlarged right ventricle. Evaluated by CTS, surgery not recommended On 10/01, extubated. MRI spine w/o evidence abscess On 10/02, he was transferred out of the ICU. 10/04-Transferred to ICU for worsening mental status, drop of Na from 122 to 117 and wors ening renal function 10/05-HD line placed, started on dialysis. Right pigtail chest tube with drainage of 1400 ml serosanguineous exudate 10/06-Dialysis session. Improved encephalopathy. Anxiety requiring high dose precedex. 10/07-Right pigtail chest catheter removed 10/08-dialysis again today, 3L removed; Cxr with bilateral effusions which appear to be a bout the same as yesterday; will repeat CT chest to evaluate further; continues to be anxiou s, c/o pain 10/09-dialysis again today, 3.5L removed, now with left pleural chest catheter placed ove rnight, immediately drained 850cc, only 50cc during the day today; intermittent fevers, tach ycardia persists; add seroquel BID 10/10--dialysis again today with anticipated 2.5L removal; L pleural chest catheter remov ed, f/u Cxr in 1 hour; if no issues post dialysis and f/u cxr will transfer to acute care be d 10/11--worsening hypoxia, tachypnea, and associated tachycardia so electively re-intubate d 10/12--restarted Levophed during dialysis today; fio2 weaned to 30%; HSV oral swab negati ve 10/13-- rested comfortably overnight, temps better, restarted tube feeds 10/14-- No acute events. HD today then attempt SBT 10/15- Hodling extubation 10/16-Holding extubation, transfused 2 units PRBC 10/17-Febrile, BC sent. Echo with new vegetation on anterior leaflet of mitral valve 10/18--ANITA (per Dr Kimble) did NOT show vegetation of the mitral valve; will proceed with kidney biopsy today and tunneled catheter placement tomorrow; repeat cx's w/o growth so far 10/19--Kidney biopsy today; Ketamine added for sedation. Evaluated by CT surgery; no plans for surgery at this time 10/20--Tunneled cath placement today; will attempt wean to extubate post procedure. Juve ne dc'd due to hallucinations. Will also place new PICC line Overnight events: Hallucinations--ketamine dc'd OBJECTIVE VITAL SIGNS Temp: [99 F (37.2 C)-100.5 F (38.1 C)] 100 F (37.8 C) Heart Rate: [82-119] 85 Resp: [14-40] 15 BP: (99-146)/(56-95) 118/71 mmHg FiO2 : [25 %-97 %] 30 % Intake/Output Summary (Last 24 hours) at 10/21/15 0724 Last data filed at 10/21/15 0600 Gross per 24 hour Intake 3071.05 ml Output 0 ml Net 3071.05 ml EXAM GEN: intubated-lightly sedated, awakens and follows simple commands NEURO: PERRLA, no facial asymmetry, moves all extremities well GCS: 11T HEENT: sclerae clear, nonicteric, oral mmm, NECK: supple, trachea midline HEART: Sinus tachycardia 100's to 110's, S1/S2, 2/6 systolicmurmur LUNGS: bibasilar crackles, no wheezing, or rales, symmetric chest expansion, even/unlabored respirations ABD: soft, non-tender, BS hypoactive, no clear rebound sign EXTR: Trace 1+ edema all extremities, no clubbing or cyanosis SKIN: diffuse purpuric palpable rash bilateral anterior lower extremities, also hand and fe et. Blisters noted within rash. Dressings to bilat elbows CDI. LINES/TUBES: RIJ HD catheter, ETT DATA Recent Labs Lab 10/21/15 0358 10/20/15 0458 10/19/15 0452 10/18/15 0511 10/17/15 1002 10/17/15 0335 10/16/15 0328 10/15/15 0547 WBC 7.96 10.26 9.56 11.38* 12.06* 10.13 -- 13.71* 17.10* RBC 2.40* 2.68* 2.73* 2.91* 3.12* 2.10* -- 2.39* 2.38* HGB 6.9* 7.8* 8.0* 8.3* 8.9* 6.1* -- 6.9* 6.9* HCT 21.3* 23.7* 24.3* 25.7* 27.7* 19.0* -- 21.5* 20.8* MCV 89.1 88.4 88.9 88.3 88.8 90.3 -- 89.7 87.5 MCH 28.8 29.1 29.2 28.7 28.6 29.1 -- 28.9 29.0 MCHC 32.3 32.9 32.8 32.5 32.2 32.3 -- 32.2 33.2 RDW 53.4* 54.3* 55.1* 52.5 48.6 55.1* -- 51.6 50.3 PLT 323 291 224 204 203 186 -- 164 156 MPV 7.5 7.9 7.7 7.8 8.4 8.3 -- 8.8 7.9 BANDSABS -- -- -- -- 0.24* -- -- 0.55* 0.17 NEUTROABS 5.97 8.45* 7.82* 9.90* -- 8.54* < > -- -- LYMPHSABS 0.77* 0.64* 0.63* 0.51* -- 0.68* < > -- -- MONOSABS 0.74 0.78 0.62 0.64 -- 0.63 < > -- -- BASOSABS 0.06 0.07 0.07 0.11* -- 0.05 < > -- -- EOSABS 0.41 0.32 0.42 0.22 -- 0.22 < > -- -- MORPH -- -- -- NORMAL PLT MORPH 1+ NORMAL PLT MORPH -- 1+ RBC AND PLT MORPHOLOGY AP PEAR NORMAL < > = values in this interval not displayed. Recent Labs Lab 10/21/15 0358 10/20/15 0458 10/19/15 045 NA 137 137 131* K 3.6 3.5 3.3* CL 102 102 98* CO2 20* 19* 18* ANIONGAP 19 20 19 GLUF 104* 85 92 BUN 38* 25 58* CREATININE 3.0* 2.5* 4.1* BCR 13 10 14 CA 7.6* 7.5* 7.4* ALB 1.2* 1.3* 1.3* GLOB -- -- 4.6 AG -- -- 0.3* PROT 5.7* 5.8* 5.9* BILITOT 1.7* 1.3 1.7* ALT 20 20 22 AST 20 24 29 EGFR 26* 32* 18* PHOS 7.7* 5.1* 7.1* MG 1.8 2.0 2.0 Recent Labs Lab 10/19/15 0517 10/19/15 0452 10/15/15 0357 INR 1.1 DUPLICATE ORDER 1.[address] ABDOMEN AND PELVIS EXAM DATE: 10/19/2015 03:42 AM. CLINICAL HISTORY: Septic emboli, abdominal distention and pain COMPARISONS: 10/05/2015. TECHNIQUE: Routine axial helical CT imaging was performed through the abdomen and pelvis wi th oral but without IV contrast. Reconstructions: Coronal and sagittal. In accordance with CT protocol optimization, one or more of the following dose reduction te chniques were utilized for this exam: automated exposure control, adjustment of mA and/or KV based on patient size, or use of iterative reconstructive technique. FINDINGS: Lung Bases: Decreasing loculated pleural effusions and multifocal airspace opacities again noted, consistent with septic emboli. Noncontrast abdominal organs: Grossly stable and unremarkable noncontrast appearance to the liver, gallbladder, pancreas, adrenals, kidneys, and spleen. Peritoneal Cavity: Long segment of wall thickening involving the mid to distal ileum and ri ght colon. Mild diffuse mesenteric edema and free fluid. No gross free air. No obstruction. Pelvic Organs: No bladder stones or wall thickening. Noncontrast images of the visualized p elvic organs are unremarkable. Vasculature: Unremarkable. Other: Severe generalized anasarca. IMPRESSION: 1. Long segment of wall thickening involving the mid to distal ileum and right colon. Thi s can be seen with infectious, inflammatory, or ischemic enteritis. 2. Mild diffuse mesenteric edema and free fluid. This is likely mostly secondary to patient 's underlying severe anasarca. 3. Decreasing pleural effusions and evidence of septic pulmonary emboli and at the lung bas es. Ct Chest Without Contrast 10/09/2015 1. Significant interval decrease in size of right pleural effusion, now small. Moderate to large left pleural effusion appears slightly decreased in size. Associated cons olidative opacity seen involving the lower lobes, likely representing pneumonia or atelectas is. 2. Essentially unchanged appearance of numerous bilateral cavitary lesions or airspace opacities 3. Wedge-shaped hypodensity in the anterior spleen, suspicious for an infarct. E lectronically signed by Ramone Abarca MD on 10/09/2015 4:42 PM Xr Chest 1 View 10/14/2015 1. Unchanged appearance of bilateral airspace and nodular/cavity opacities. 2. Unchanged at least small bilateral pleural effusions. LEM LIST Principal Problem: Sepsis (HCC) Active Problems: Hyposmolality and/or hyponatremia MARCEL (acute kidney injury) (HCC) Leucocytosis Thrombocytopenia (HCC) Toxic metabolic encephalopathy Acute respiratory failure with hypoxia (HCC) Heroin abuse Methamphetamine abuse Tobacco abuse Acute septic pulmonary embolism (HCC) Acute infective endocarditis Moderate protein-calorie malnutrition (HCC) ASSESSMENT & PLAN NEURO: Septic encephalopathy-Resolved. CSF w/o growth from [facility] Continue seroquel for anxiety/insomnia On dex, fentanyl, klonopin, Seroquel dc'd due to hallucinations CV: Septic shock resolved. Hemodynamically stable on no vasoactive medication. Tricuspid IE on septal leaflet PULM: Recurrent Hypoxemic respiratory failure---Re-intubated 10/11. Daily SBT. Will hopefully extubate today (10/20) after procedures completed Pulmonary septic embolic from MSSA tricuspid valve CT chest repeated 10/08--Right pleural effusion less s/p pigtail chest tube 10/05. Exudati ve by Lights criteria. PH, glucose not consistent with complicated infected effusion. DC'd Left pleural effusion, much improved s/p pigtail catheter placed 10/08, immediately drain ed 850cc---removed (10/10). F/U CT chest in the near future to ensure resolution of loculated effusion. US with trace bilateral pleural effusion 10/17 Cxr in a.m. (10/21) GI/NUTRITION: Severe malnutrition secondary to infectious process. Mild Transaminitis (resolved) likely sepsis related . Hepatitis serologies and HIV nega tive. Continue to monitor. T bili slightly elevated today at 1.7 (10/20) 1.3 (10/19)--repeat in a.m. Abdominal distension and abdominal pain. CT abdomen with oral contrast with thickening o f terminal ileum and right colon. Clinically w/o GIB. Serial lactates.10/18-0.3/0.3/0.4 Concer n for ischemic embolic phenomena. C diff negative 10/13--trophic TF's on HOLD for procedure Hypertriglyceridemia--trending downward, 251 (10/20) from 438 (10/18)--Avoid Propofol--patsy nue to monitor RENAL/LYTES: MARCEL. Anuric. Transitioned to conventional HD. 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 Vora) UA with hematuria. C3 low. C4 wnl. Low C3 likely from MSSA infectious process. Tunneled catheter placement and new PICC line placement today (10/20) Cortisol and TSH wnl ID: [id number] Tricuspid Infective Endocarditis---ANITA 10/18 r/o any mitral valve involvement Followe by ID. Currently on Nafcillin BC from 10/17 in progress--no growth so far Removed PICC line, tip sent for cx--no growth so far RIJ HD temporary catheter---d/c today for tunneled cath placment HEME: Anemia-Multifactorial. Required blood transfusion 10/06 (2 units PRBC); 1 unit given 10/09 , 1u 10/13. Hb 6.1 10/16. Transfused 2 units PRBCs with appropriate response. Haptoglobin 201 (10/16); w Will give one unit PRBC today (10/20) with dialysis for Hgb 6.9 Continue to monitor ENDO: Monitor BS. Goal 80-180. MUSC/SKIN: Vasculitis from IE/sepsis. Pt with purpura rash with blistering and bullae. 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 (no scd's d/t skin integrity of legs) VAP bundle: chlorhexadine oral care, HOB >30 degrees Disposition: Critical care Code Status: Full Code *Please bill 40 minutes of critical care time spent evaluating the patient, reviewing the d michael and formulating a plan exclusive of all other procedures. YAIR GAMBINO 10/21/2015 7:24 AM onversio n Transaction, Provider Unknown - 10/20/2015 8:00 PM PDTFormatting of this note might be di fferent from the original. Nurse Progress Note by Kaci Bolivar RN at 10/20/151999 Author: Kaci Bolivar RN Service: (none) Author Type: Registered Nurse Filed: 10/21/15 0735 Date of Service: 10/20/151999 Status: Signed Bisque Brusher: Kaci Bolivar RN (Registered Nurse) Report from day RN, POC discussed. Armband verified with MAR, allergies and code status noted. Pt alert and awake on sedation. Initially he appears to be gesturing and noddi ng appropriately through assessment and medication administration, but then he asks to write . He writes, " Am I a treat for the anguiano?" When asked, " Who is the anguiano? What is he refe rring too?" He is unable to answer. Then about 10 minutes later he gets very anxious and ups ets. He gestures as though he is going to start crying and he uses his index finger around h is ear in a circular motion to symbolize he is crazy. Pt confirms that is what he is communi cating. He is reassured that he has been through a lot and is getting better, but it is hard and just to keep doing the hard work he is doing to get better. Pt nods that he is in pain so medication given and patient relaxes. He was repositioned. There is no other changes on a ssessment. Will continue to monitor. 2051 Dr. Joseph rounded and updated. Aware of patient confusion. No new orders at this sheree e. 2100 Pt resting, will continue to monitor. 2200 Pt repositioned. 2300 Pt resting, no changes, but rounds were done and no new orders at this time. MD update d and aware of status and POC. 0000 Pt assessment complete. Pt is more sleepy at this time, but will wake, nod appropriate ly and follow simple commands. 0100 No changes, patient resting. 0200 Pt was repositioned, no changes at this time, will continue to monitor. 0300 No changes, patient resting. 0400 Pt assessment complete, labs drawn, he was bathed and fresh linens provided. Pt became extremely tearful and wrote, " What are you doing?" It was explained to him that he was sirisha ng cleaned up and provided fresh linens. Tears welled up in his eyes. RN attempted to comfo rt patient and reassure him of his positive progress. Will continue to monitor. 0500 No changes, patient is resting at this time. 0545 made aware of patient H&H 6.9/21.3 at this time, will continue to monitor. 0615 Dialysis here setting up. Pt is resting comfortably. 0700 Report given to Chepe CHARLTON at bedside and POC discussed. Pt neuro assessment complete. onver patti Transaction, Provider Unknown - 10/20/2015 4:14 PM PDT Progress Notes by Ana Garnett RD, ELMO at 10/20/15 1610 Author: Ana Garnett RD, CD Service: (none) Author Type: Registered Dietitian Filed: 10/20/155 Date of Service: 10/20/151613 Status: Signed Bisque Brusher: Ana Garnett RD, CD (Registered Dietitian) 10/20/15 152 Subjective Timepoint Follow up (high-risk, TF) Pt c/o Pt remains intubated, on Precedex. Has been on trickle feeds only due to ongoing GI issues and concern for ischemic emboli phenomena. Will be NPO at midnight for tunneled HD ca theter placement tomorrow. Fluid / Beverage Intake Oral Fluids Amount NPO Food Intake Amount of Food NPO Enteral Nutrition Intake Access OG tube. Rate/Solution Trickle feeds of Peptamen 1.5 with Prebio at 10 mL/hr. Feeding tube flush Free water flushes 30 mL q 4 hours. Parenteral Nutrition Intake Rate/Solution On IV fluids of NS at 15 mL/hr. Nutrition-Focused Physical Findings Body Language 1+ edema in the extremities. Digestive System (Mouth to Rectum) Had been stooling via rectal tube but this was pulled ou t by pt. Skin Bullae on arms, hands, legs. cinder pit worker following. Anthropometrics Weight change Wt is down 0.8 kg from admit wt. I/Os indicate that pt is approximately 13 L fluid positive. May not include some insensible losses, however suspect fluid retention is m asking ongoing loss of LBM. Will continue to monitor trend and adjust nutrition goals as nee ded. Biochemical data, medical tests, and procedures reviewed Biochemical data, medical tests, and procedures reviewed Cr 2.5 (H), Phos 5.1 (H) - acute r enal failure, on HD per nephrology. BG has been controlled in the 80s-100s. Recommendations Recommended energy needs Recommend continuing TF of Peptamen 1.5 with Prebio and advancing as tolerated to goal rate of 70 mL/hr. Assuming 20-hour/day continuous delivery, this will p rovide 2100 kcal, 95 g protein, 1400 mL total volume, and 1078 mL free water which supplies 30 kcal/kg and 1.4 g protein/kg. Will continue to monitor clinical course and f/u with [facility] nutrition recs as indicated. If pt remains unable to tolerate EN, TPN should be considere d. Nutritional Risk Nutritional risk High Follow up date 10/23/[address], CD, [facility] 10/20/2015 Delfino Urban MD - 10/20/2015 11:53 AM PDT Progress Notes by Delfino Vora MD at 10/20/15 4823 Author: Delfino Vora MD Service: Nephrology Author Type: Physician Filed: 10/20/15 1151 Date of Service: 10/20/15 6536 Status: Signed Bisque Brusher: Delfino Vora MD (Physician) [facility] Service: Nephrology Renal Consult Progress Note Yang Ridley [id number] Hospital Day: LOS: 19 days SUBJECTIVE Patient Summary: Patient seen and examined. Intubated and sedated. Scheduled Medications clonazePAM 1 mg Oral BID famotidine 20 mg Oral Daily gentamicin Topical Daily heparin (porcine) 5000 unit/0.5mL 5,000 Units Subcutaneous 3 times per day midazolam 5 mg Intravenous Once nafcillin 2 g Intravenous Q4H nystatin 5 mL Mouth/Throat 4x Daily [START ON 10/21/2015] QUEtiapine 100 mg Oral QAM QUEtiapine 100 mg Oral QPM sodium chloride 10 mL Intravenous 2 times per day sodium citrate anticoagulant 4 % 6 mL Intracatheter Daily Continuous Infusions dexmedetomidine in NS 1.5 mcg/kg/hr (10/20/15 1028) fentaNYL in NS 5 mcg/mL 200 mcg/hr (10/20/15 1105) ketamine (KETALAR) infusion 0.5 mg/kg/hr (10/20/15 1040) propofol sodium chloride (IV) 15 mL/hr at 10/14/15 1547 PRN Medications acetaminophen, albumin human, albuterol, aluminum-magnesium hydroxide-simethicone, diphenhy [id number] oral solution, HYDROmorphone OR HYDROmorphone, ipratropium, lip moisturizer, LORazepam, metoclopramide, ondansetron OR ondansetron, pancrelipase (Lip-P rot-Amyl)12,000 units, promethazine, simethicone, sodium bicarbonate, sodium chloride, white petrolatum OBJECTIVE Vital Signs: BP 124/75 mmHg | Pulse 91 | Temp(Src) 99.1 F (37.3 C) (Oral) | Resp 14 | Ht 1.702 m (5' 7") | Wt 68.3 kg (150 lb 9.2 oz) | BMI 23.58 kg/m2 | SpO2 99% Intake/Output Summary (Last 24 hours) at 10/20/15 1153 Last data filed at 10/20/15 1049 Gross per 24 hour Intake 5606.95 ml Output 5950 ml Net -343.05 ml Gen: NAD, A&Ox3 Neck: rt ij temp catheter Pulm: intubated CV: RRR, nl S1S2, no rub Abd: Soft, NT/ND, NABS Ext: trace edema Access: rt ij temp catheter DATA Recent Labs Lab 10/20/15 0458 10/19/15 0452 10/18/15 0511 10/17/15 0335 CREATININE 2.5* 4.1* 3.6* 4.7* Recent Labs Lab 10/20/158 10/19/152 10/18/15 0511 10/17/15 0335 NA 137 131* 133* 135 K 3.5 3.3* 3.6 3.8 CL 102 98* 100 101 CO2 19* 18* 20* 19* BUN 25 58* 47* 73* CA 7.5* 7.4* 7.6* 7.6* PHOS 5.1* 7.1* 5.5* 5.7* MG 2.0 2.0 2.0 2.1 Recent Labs Lab 10/20/1545710/19/1551610/19/1545110/18/15 0511 10/17/15 0335 10/15/15 0357 ALB 1.3* -- 1.3* 1.4* 1.4* < > -- ALP 72 -- 73 80 69 < > -- AST 24 -- 29 26 21 < > -- ALT 20 -- 22 17 16 < > -- INR -- 1.1 DUPLICATE ORDER -- -- -- 1.1 < > = values in this interval not displayed. Recent Labs Lab 10/20/1545710/19/1545110/18/15 0511 10/17/15 1002 WBC 10.26 9.56 11.38* 12.06* RBC 2.68* 2.73* 2.91* 3.12* HGB 7.8* 8.0* 8.3* 8.9* HCT 23.7* 24.3* 25.7* 27.7* PLT 291 224 204 203 MCV 88.4 88.9 88.3 88.8 RDW 54.3* 55.1* 52.5 48.6 Recent Labs Lab 10/19/1551610/19/152 10/15/15 0357 INR 1.1 DUPLICATE ORDER 1.1 PROBLEM LIST Principal Problem: Sepsis (HCC) Active Problems: Hyposmolality and/or hyponatremia MARCEL (acute kidney injury) (HCC) Leucocytosis Thrombocytopenia (HCC) Toxic metabolic encephalopathy Acute respiratory failure with hypoxia (HCC) Heroin abuse Methamphetamine abuse Tobacco abuse Acute septic pulmonary embolism (HCC) Acute infective endocarditis Moderate protein-calorie malnutrition (HCC) ASSESSMENT & PLAN The patient is a 30 y.o. male with significant history of tobacco and drug abuse using jennifer y heroin and methamphetamine, also on Suboxone. He initially presented to [facility] for progressive weakness, lethargy, and generalized pain for the past 7 days. He noti edy that his ankles and right knee were swollen but not warm or erythematous. According to imer valverde girlfriend, he has been feeling sick and febrile for the past week with poor oral intake. LP was performed to rule out meningitis. IV antibiotics started, ceftriaxone 2 gm and vanco mycin [address] head and C-spine x-ray performed, patient decompensated and was intubat ed for respiratory failure and airway protection and admitted to the ICU. Significant labs on initial presentation : Na 114 (1435 hrs), BUN 81, Crea 2.48, Over next 12-24 hrs, his sodium abruptly improved to a peak of126 by 6 AM on 10/01, so c ounter measures were started to avoid over correction. Patient received DDAVP X2 X 2 MCG AT 4 AND 8 AM ON 10/01 and is on D5W AT 200 ML/HR. He has never been hospitalized because of low sodium. He has never been symptomatic because of low sodium. There are no herbal preparation intake; he does not have hx of liver cirrhos is. He does not have hx of CHF, hypothyroidism or adrenal insufficiency.There is no hx of ch ronic diarrhea and no N/V. ARF Differential includes, post infectious vs atn from sepsis, still no signs of renal recovery , will do a kidney biopsy (order placed) Dialysis tomorrow Willconvert his temp catheter to PC, we are aware of his h/o iv drug abuse but considerin g that dialysis is a life saving treatment, will go ahead and place a PC tomorrow if c/x are neg from 10/17.(IR has been consulted) daily weights and strict I/O's Diet should be 0.8 gm/kg protein, 1 gm PO4, 2 gm Na, and 2 gm K restricted diet. medications to be dosed for estimated eGFR Of 15 NSAIDs (including FRASER 2 inhibitors) should not be used. Magnesium and aluminum containing antacids should be avoided. Magnesium or phosphorus containing laxatives should be avoided. Code Status: Full Code Delfino Vora MD 10/20/2015 11:53 AM Jeny, YAIR Hernandez - 10/20/2015 10:03 AM PDTFormatting of this note might be different from t he original. Progress Notes by YAIR Gambino at 10/20/15 1003 Author: YAIR Gambino Service: Auto Dealer Author Type: Advanced Registere d Nurse Practitioner Filed: 10/20/15 1116 Date of Service: 10/20/15 1003 Status: Signed Bisque Brusher: YAIR Gambino (Advanced Registered Nurse Practitioner) [facility] Service: Auto Dealer Progress Note Yang Ridley 30 y.o. Hospital Day: LOS: 19 days Post-Op Day: * No surgery found * Consulting Physicians Treatment Team: Consulting Physician: Chris Swann DO Consulting Physician: Renetta Buck MD Consulting Physician: Gonzalez Bhardwaj MD Surgeon: Blanca Arias MD Consulting Physician: Blanca Arias MD Admitting Provider: Carly Thomas DO SUBJECTIVE Patient Summary: The patient is a 30 y.o. male with significant history of tobacco an d drug abuse using daily heroin and methamphetamine, also on Suboxone. He initially presen latasha to [facility] for progressive weakness, lethargy, and generalized pain (most ly his chest, neck, back, knees, ankles and toes) for 7 days. According to his girlfriend, he was feeling sick and febrile for a week with poor PO intake; she also noticed that his an kles and right knee were swollen but not warm or erythematous, and he seemed to be "halluinc ating and talking to himself". Exam at OSH was significant for point tenderness at the area of the cervical spine and posi tive Kernig's sign. LP was performed to rule out meningitis. IV antibiotics started, ceftria xone 2 gm and vancomycin [address] head and C-spine x-ray performed, MRI attempted but patient decompensated and was intubated for respiratory failure and airway protection. Significant labs: Na 114 (1435 hrs), BUN 81, Crea 2.48, WBC 19.9, Hb 11.6, Plt 51, Tbili 3. 6, AST 188, ALT 155, LA 1.7. CSF: clear, colorless, WBC 0, RBC 3. Transferred to [facility] for further care. Timeline: Evaluated by Nephrology, acute renal failure attributed to hemodynamics. Evaluated by Dr. Bhardwaj from orthopedics: Does not think patient has ankle septic joint and does not re commend surgical intervention. Echocardiogram showed moderate size mobile vegetation attached to the septal tricuspid v alve leaflet, moderate tricuspid regurgitation, moderate pulmonary hypertension with mildly enlarged right ventricle. Evaluated by CTS, surgery not recommended On 10/01, extubated. MRI spine w/o evidence abscess On 10/02, he was transferred out of the ICU. 10/04-Transferred to ICU for worsening mental status, drop of Na from 122 to 117 and wors ening renal function 10/05-HD line placed, started on dialysis. Right pigtail chest tube with drainage of 1400 ml serosanguineous exudate 10/06-Dialysis session. Improved encephalopathy. Anxiety requiring high dose precedex. 10/07-Right pigtail chest catheter removed 10/08-dialysis again today, 3L removed; Cxr with bilateral effusions which appear to be a bout the same as yesterday; will repeat CT chest to evaluate further; continues to be anxiou s, c/o pain 10/09-dialysis again today, 3.5L removed, now with left pleural chest catheter placed ove rnight, immediately drained 850cc, only 50cc during the day today; intermittent fevers, tach ycardia persists; add seroquel BID 10/10--dialysis again today with anticipated 2.5L removal; L pleural chest catheter remov ed, f/u Cxr in 1 hour; if no issues post dialysis and f/u cxr will transfer to acute care be d 10/11--worsening hypoxia, tachypnea, and associated tachycardia so electively re-intubate d 10/12--restarted Levophed during dialysis today; fio2 weaned to 30%; HSV oral swab negati ve 10/13-- rested comfortably overnight, temps better, restarted tube feeds 10/14-- No acute events. HD today then attempt SBT 10/15- Hodling extubation 10/16-Holding extubation, transfused 2 units PRBC 10/17-Febrile, BC sent. Echo with new vegetation on anterior leaflet of mitral valve 10/18--ANITA (per Dr Kimble) did NOT show vegetation of the mitral valve; will proceed with kidney biopsy today and tunneled catheter placement tomorrow; repeat cx's w/o growth so far Overnight events: Self removal of rectal tube; ketamine added for sedation/analgesia OBJECTIVE VITAL SIGNS Temp: [97.3 F (36.3 C)-99.8 F (37.7 C)] 99.8 F (37.7 C) Heart Rate: [101-118] 104 Resp: [14-29] 15 BP: (114-156)/(58-98) 133/81 mmHg FiO2 : [30 %] 30 % Intake/Output Summary (Last 24 hours) at 10/20/15 1003 Last data filed at 10/20/15 0620 Gross per 24 hour Intake 5414 ml Output 5950 ml Net -536 ml EXAM GEN: intubated-lightly sedated NEURO: PERRLA, no facial asymmetry, moves all extremities well GCS: 11T HEENT: sclerae clear, nonicteric, oral mmm, NECK: supple, trachea midline HEART: Sinus tachycardia 100's to 110's, S1/S2, 2/6 systolicmurmur LUNGS: scattered rhonchi bilaterally , no wheezing, or rales, symmetric chest expansion, e cecilio/unlabored respirations ABD: distended, tender to examination RLQ, no clear rebound sign EXTR: Trace 1+ edema all extremities, no clubbing or cyanosis SKIN: diffuse purpuric palpable rash bilateral anterior lower extremities, also hand and fe et. Blisters noted within rash. Dressings to bilat elbows CDI. LINES/TUBES: RIJ HD catheter, ETT DATA Recent Labs Lab 10/20/15 0458 10/19/15 0452 10/18/15 0511 10/17/15 1002 10/17/15 0335 10/16/15 0328 10/15/15 0547 WBC 10.26 9.56 11.38* 12.06* 10.13 13.71* 17.10* RBC 2.68* 2.73* 2.91* 3.12* 2.10* 2.39* 2.38* HGB 7.8* 8.0* 8.3* 8.9* 6.1* 6.9* 6.9* HCT 23.7* 24.3* 25.7* 27.7* 19.0* 21.5* 20.8* MCV 88.4 88.9 88.3 88.8 90.3 89.7 87.5 MCH 29.1 29.2 28.7 28.6 29.1 28.9 29.0 MCHC 32.9 32.8 32.5 32.2 32.3 32.2 33.2 RDW 54.3* 55.1* 52.5 48.6 55.1* 51.6 50.3 PLT 291 224 204 203 186 164 156 MPV 7.9 7.7 7.8 8.4 8.3 8.8 7.9 BANDSABS -- -- -- 0.24* -- 0.55* 0.17 NEUTROABS 8.45* 7.82* 9.90* -- 8.54* -- -- LYMPHSABS 0.64* 0.63* 0.51* -- 0.68* -- -- MONOSABS 0.78 0.62 0.64 -- 0.63 -- -- BASOSABS 0.07 0.07 0.11* -- 0.05 -- -- EOSABS 0.32 0.42 0.22 -- 0.22 -- -- MORPH -- -- NORMAL PLT MORPH 1+ NORMAL PLT MORPH 1+ RBC AND PLT MORPHOLOGY APPEAR DOROTHY L Recent Labs Lab 10/20/15 0458 10/19/15 0452 10/18/15 0511 NA 137 131* 133* K 3.5 3.3* 3.6 CL 102 98* 100 CO2 19* 18* 20* ANIONGAP 20 19 16 GLUF 85 92 111* BUN 25 58* 47* CREATININE 2.5* 4.1* 3.6* BCR 10 14 13 CA 7.5* 7.4* 7.6* ALB 1.3* 1.3* 1.4* GLOB -- 4.6 -- AG -- 0.3* -- PROT 5.8* 5.9* 5.9* BILITOT 1.3 1.7* 2.1* ALT 20 22 17 AST 24 29 26 EGFR 32* 18* 21* PHOS 5.1* 7.1* 5.5* MG 2.0 2.0 2.0 Recent Labs Lab 10/19/15 0517 10/19/15 0452 10/15/15 0357 INR 1.1 DUPLICATE ORDER 1.[address] ABDOMEN AND PELVIS EXAM DATE: 10/19/2015 03:42 AM. CLINICAL HISTORY: Septic emboli, abdominal distention and pain COMPARISONS: 10/05/2015. TECHNIQUE: Routine axial helical CT imaging was performed through the abdomen and pelvis wi th oral but without IV contrast. Reconstructions: Coronal and sagittal. In accordance with CT protocol optimization, one or more of the following dose reduction te chniques were utilized for this exam: automated exposure control, adjustment of mA and/or KV based on patient size, or use of iterative reconstructive technique. FINDINGS: Lung Bases: Decreasing loculated pleural effusions and multifocal airspace opacities again noted, consistent with septic emboli. Noncontrast abdominal organs: Grossly stable and unremarkable noncontrast appearance to the liver, gallbladder, pancreas, adrenals, kidneys, and spleen. Peritoneal Cavity: Long segment of wall thickening involving the mid to distal ileum and ri ght colon. Mild diffuse mesenteric edema and free fluid. No gross free air. No obstruction. Pelvic Organs: No bladder stones or wall thickening. Noncontrast images of the visualized p elvic organs are unremarkable. Vasculature: Unremarkable. Other: Severe generalized anasarca. IMPRESSION: 1. Long segment of wall thickening involving the mid to distal ileum and right colon. Thi s can be seen with infectious, inflammatory, or ischemic enteritis. 2. Mild diffuse mesenteric edema and free fluid. This is likely mostly secondary to patient 's underlying severe anasarca. 3. Decreasing pleural effusions and evidence of septic pulmonary emboli and at the lung bas es. Ct Chest Without Contrast 10/09/2015 1. Significant interval decrease in size of right pleural effusion, now small. Moderate to large left pleural effusion appears slightly decreased in size. Associated cons olidative opacity seen involving the lower lobes, likely representing pneumonia or atelectas is. 2. Essentially unchanged appearance of numerous bilateral cavitary lesions or airspace opacities 3. Wedge-shaped hypodensity in the anterior spleen, suspicious for an infarct. E lectronically signed by Ramone Abarca MD on 10/09/2015 4:42 PM Xr Chest 1 View 10/14/2015 1. Unchanged appearance of bilateral airspace and nodular/cavity opacities. 2. Unchanged at least small bilateral pleural effusions. LEM LIST Principal Problem: Sepsis (HCC) Active Problems: Hyposmolality and/or hyponatremia MARCEL (acute kidney injury) (HCC) Leucocytosis Thrombocytopenia (HCC) Toxic metabolic encephalopathy Acute respiratory failure with hypoxia (HCC) Heroin abuse Methamphetamine abuse Tobacco abuse Acute septic pulmonary embolism (HCC) Acute infective endocarditis Moderate protein-calorie malnutrition (HCC) ASSESSMENT & PLAN NEURO: Septic encephalopathy-Resolved. CSF w/o growth from [facility] Continue seroquel for anxiety/insomnia On dex, fentanyl for sedation, ketamine added, and seroquel increased; will hopefully we an fentanyl/dex CV: Septic shock resolved. Hemodynamically stable on no vasoactive medication. Tricuspid IE on septal leaflet PULM: Recurrent Hypoxemic respiratory failure---Re-intubated 10/11. Daily SBT. Holding extubation for now Pulmonary septic embolic from MSSA tricuspid valve CT chest repeated 10/08--Right pleural effusion less s/p pigtail chest tube 10/05. Exudati ve by Lights criteria. PH, glucose not consistent with complicated infected effusion. DC'd Left pleural effusion, much improved s/p pigtail catheter placed 10/08, immediately drain ed 850cc---removed (10/10). F/U CT chest in the near future to ensure resolution of loculated effusion. US with trace bilateral pleural effusion 10/17 GI/NUTRITION: Severe malnutrition secondary to infectious process. Mild Transaminitis (resolved) with elevated bilirubin- Trending down, likely sepsis rela latasha . Hepatitis serologies and HIV negative. Continue to monitor. Abdominal distension and abdominal pain. CT abdomen with oral contrast with thickening o f terminal ileum and right colon. Clinically w/o GIB. Serial lactates.8/1-0.3/0.3/0.4 Concer n for ischemic embolic phenomena. C diff negative 10/13--trophic TF's for now RENAL/LYTES: MARCEL. Anuric. Transitioned to conventional HD. ATN vs C3 staph induced glomerulonephrit is---Will obtain renal biopsy today (ordered by Dr. Vora) UA with hematuria. C3 low. C4 wnl. Low C3 likely from MSSA infectious process. Tunneled catheter placement tomorrow Cortisol and TSH wnl ID: [id number] Tricuspid Infective Endocarditis---ANITA 10/18 r/o any mitral valve involvement Followe by ID. Currently on Nafcillin BC from 10/17 in process--no growth so far Removed PICC line, tip sent for cx--no growth so far RIJ HD temporary catheter HEME: Anemia-Multifactorial. Required blood transfusion 10/06 (2 units PRBC); 1 unit given 10/09 , 1u 10/13. Hb 6.1 10/16. Transfused 2 units PRBCs with appropriate response. Haptoglobin wnl Continue to monitor ENDO: Monitor BS. Goal 80-180. MUSC/SKIN: Vasculitis from IE/sepsis. Pt with purpura rash with blistering and bullae. Interphalangeal creases bilaterally with black wound bed--Wound care to evaluate Early mobility protocol PROPHYLAXIS: Stress ulcer prophylaxis: on PPI DVT prophylaxis: Heparin SC, foot pumps. (no scd's d/t skin integrity of legs) VAP bundle: chlorhexadine oral care, HOB >30 degrees Disposition: Critical care Code Status: Full Code *Please bill 40 minutes of critical care time spent evaluating the patient, reviewing the d michael and formulating a plan exclusive of all other procedures. YAIR GAMBINO 10/20/2015 10:03 AM Usman Case MD - 10/20/2015 8:08 AM PDT Progress Notes by Usman Villatoro MD at 10/20/15 0811 Author: Usman Villatoro MD Service: Infectious Disease Author Type: Physician Filed: 10/20/15 0932 Date of Service: 10/20/15 0858 Status: Addendum Bisque Brusher: Usman Villatoro MD (Physician) Related Notes: Original Note by Usman Villatoro MD (Physician) filed at 10/20/15 3010 [facility] Service: Infectious Disease Progress Note Hospital Day: LOS: 19 days Post-Op Day: * No surgery found * SUBJECTIVE Patient Summary: CC: Fever, chest pain and altered mental status From Auto Dealer's admission note on 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 male with significant history of tobacco and drug abuse using daily heroin and methamphetamine, also on Suboxone. He initially presented to [facility] for progressive weakness, lethargy, and ge neralized pain (mostly his chest, neck, back, knees, ankles and toes) for the past 7 days. H e noticed that his ankles and right knee were swollen but not warm or erythematous. Accordin g to his girlfriend, he has been feeling sick and febrile for the past week with poor PO int elisha. Yesterday, she noticed that he seemed like he was hallucinating and talking to himself. He was very weak today that she had to assist him to get into the car to go the the ED. Exam at OSH was significant for point tenderness at the area of the cervical spine and posi tive Kernig's sign. LP was performed to rule out meningitis. IV antibiotics started, ceftria xone 2 gm and vancomycin [address] head and C-spine x-ray performed, MRI attempted but patient decompensated and was intubated for respiratory failure and airway protection. Significant labs: Na 114 (1435 hrs), BUN 81, Crea 2.48, WBC 19.9, Hb 11.6, Plt 51, Tbili 3. 6, AST 188, ALT 155, LA 1.7. CSF: clear, colorless, WBC 0, RBC 3. Protein 31. Glucose 50. Culture with no growth to d ate Blood cultures are reported to be growing GPCs at [facility] Transferred to [facility] for further care. MRI of brain and spine carried out with limited findi ngs due to non-contrast study. Evaluated by Nephrology, acute renal failure attributed to hemodynamics. Evaluated by Dr. Bhardwaj from orthopedics: Does not think patient has ankle septic joint and does not recomme nd surgical intervention. Echocardiogram showed moderate size mobile vegetation attached to the septal tricuspid valv e leaflet, moderate tricuspid regurgitation, moderate pulmonary hypertension with mildly enl arged right ventricle. Evaluated by CTS, surgery not recommended On 10/01, extubated On 10/02, he was transferred out of the ICU. On 10/04, patient had worsening mental status and also became tachypneic. He became more hy ponatremic with worsening renal function. Bilateral moderate sized pleural effusions were n oted on chest CT scan. Bedside ultrasound with bilateral pleural effusion, R>L. Left minimal and without echogenic ity suggestive of infectious pleural effusion. Left effusion is moderate with fibrin strands concerning for complicated/infectious pleural effusion. Right pig tail chest tube placed wi th purulent drainage. Head CT scan negative On 10/05, started on hemodialysis On October 08, left chest tube was placed. Reintubated on October 11. On 10/16-, patient was febrile to 101.4F. Blood cultures were sent. On 10/18, echocardiogram showed possible mobile vegetation at the posterior mitral valve leaf let along with known tricuspid valve vegetation. Right IJ hemodialysis catheter was placed. PICC was discontinued. He complained of abdominal pain and tenderness; CT scan was done salomon t showed mid to distal ileum and right colitis. CC: Staphylococcal sepsis, right-sided endocarditis Chart reviewed Events Overnight: Verbal report of ANITA findings: No mitral valve vegetation; positiv e tricuspid valve vegetation. Patient has been afebrile overnight. Rectal tube removed. During sedation holiday, patient was oriented 3. He complained of abdominal pain last night. Noted patient started on tri ckle feeds. Scheduled Medications clonazePAM 1 mg Oral BID famotidine 20 mg Oral Daily gentamicin Topical Daily heparin (porcine) 5000 unit/0.5mL 5,000 Units Subcutaneous 3 times per day nafcillin 2 g Intravenous Q4H nystatin 5 mL Mouth/Throat 4x Daily QUEtiapine 25 mg Oral QAM QUEtiapine 50 mg Oral QPM sodium chloride 10 mL Intravenous 2 times per day sodium citrate anticoagulant 4 % 6 mL Intracatheter Daily Continuous Infusions fentaNYL in NS 5 mcg/mL 200 mcg/hr (10/20/15 6184) ketamine (KETALAR) infusion 0.1 mg/kg/hr (10/19/15 7953) propofol 80 mcg/kg/min (10/20/15 5351) sodium chloride (IV) 15 mL/hr at 10/14/15 1547 PRN Medications acetaminophen, albumin human, albuterol, aluminum-magnesium hydroxide-simethicone, diphenhy ztDKFTJ-mvktxq-twdhytbfb oral solution, HYDROmorphone OR HYDROmorphone, ipratropium, lip moisturizer, metoclopramide, ondansetron OR ondansetron, pancrelipase (Elx-Kssb-Cgpp)12 ,000 units, promethazine, simethicone, sodium bicarbonate, sodium chloride, white petrolatum OBJECTIVE Vital Signs: BP 146/89 mmHg | Pulse 109 | Temp(Src) 99 F (37.2 C) (Axillary) | Resp 19 | Ht 1.702 m (5' 7") | Wt 68.3 kg (150 lb 9.2 oz) | BMI 23.58 kg/m2 | SpO2 99% Temp: [97.3 F (36.3 C)-99.5 F (37.5 C)] 99 F (37.2 C) (10/20 399) BP: (114-156)/(58-98) 146/89 mmHg (10/19 699) Heart Rate: [97-118] 109 (10/19 699) Resp: [14-29] 19 (10/19 699) SpO2: [79 %-100 %] 99 % (10/19 699) Weight: [68.3 kg (150 lb 9.2 oz)] 68.3 kg (150 lb 9.2 oz) (10/19 429) FiO2 : [30 %] 30 % (10/19 309) Physical Exam Vital signs have been reviewed Gen.: Intubated, on ventilatory support. Sedated HEENT: Anicteric sclerae. Pupils are reactive to light. Improved appearance of nasal, oral labial mucosa. Right IJ HD catheter is unremarkable except for blood underneath the dressing Lungs: Mechanical breath sounds Cardiovascular: RRR. No murmur Abdomen: No distention. Soft. No tenderness or palpable masses Skin: Petechial/purpuric lesions at upper and lower extremities improving; sites of prior v esicles noted at legs - scabs noted Musculoskeletal: No inflamed looking joints DATA CBC: Lab Results Component Value Date WBC 10.26 10/20/2015 RBC 2.68* 10/20/2015 HGB 7.8* 10/20/2015 HCT 23.7* 10/20/2015 MCV 88.4 10/20/2015 MCH 29.1 10/20/2015 MCHC 32.9 10/20/2015 RDW 54.3* 10/20/2015 PLT 291 10/20/2015 MPV 7.9 10/20/2015 DIFFTYPE AUTOMATED 10/20/2015 WBC: Lab Results Component Value Date WBC 10.26 10/20/2015 NEUTABSMAN 10.38* 10/17/2015 NEUTROABS 8.45* 10/20/2015 NEUTROMAN 86 10/17/2015 LYMPHOABS 0.84* 10/17/2015 LYMPHOMAN 7 10/17/2015 LYMPHSABS 0.64* 10/20/2015 LYMPHOPCT 6.24 10/20/2015 MONOABSMAN 0.48 10/17/2015 MONOMAN 4 10/17/2015 MONOPCT 7.58 10/20/2015 EOSINOABS 0.12 10/17/2015 EOSINOMAN 1 10/17/2015 EOSABS 0.32 10/20/2015 EOSPCT 3.13 10/20/2015 BASOSABS 0.07 10/20/2015 BASOPCT 0.69 10/20/2015 PLTEST ADEQUATE 10/18/2015 BANDSPCT 2 10/17/2015 METAABS 0.26* 10/13/2015 METAPCT 1 10/13/2015 MYELOABS 0.17* 10/09/2015 MYELOPCT 1 10/09/2015 COMDIFF SLIDE SCANNED, AGREES WITH AUTOMATED RESULTS. 10/18/2015 CMP: Lab Results Component Value Date NA 137 10/20/2015 K 3.5 10/20/2015 CL 102 10/20/2015 CO2 19* 10/20/2015 ANIONGAP 20 10/20/2015 GLUF 85 10/20/2015 BUN 25 10/20/2015 CREATININE 2.5* 10/20/2015 BCR 10 10/20/2015 CA 7.5* 10/20/2015 PROT 5.8* 10/20/2015 ALB 1.3* 10/20/2015 GLOB 4.6 10/19/2015 BILITOT 1.3 10/20/2015 ALP 72 10/20/2015 AST 24 10/20/2015 ALT 20 10/20/2015 EGFR 32* 10/20/2015 PT/INR: Lab Results Component Value Date PROTIME DUPLICATE ORDER 10/19/2015 INR 1.1 10/19/2015 Component Latest Ref Rng 10/19/2015 1:02 PM Lactate, Cecilio 0.4 - 2.0 mmol/L 0.4 Microbiology data: 10/13 C. difficile PCR negative 10/09 C. difficile negative 10/11 HSV oral culture negative 10/05 pleural fluid culture negative 09/30 tracheal aspirate culture grew MSSA 10/17 blood cultures With no growth to date 09/30 blood cultures with no growth 10/18 catheter tip culture in process Impression 1. Long segment of wall thickening involving the mid to distal ileum and right colon. This can be seen with infectious, inflammatory, or ischemic enteritis. 2. Mild diffuse mesenteric edema and free fluid. This is likely mostly secondary to patient 's underlying severe anasarca. 3. Decreasing pleural effusions and evidence of septic pulmonary emboli and at the lung bas es. RADIA Electronically signed by Abran Calderon MD on Oct 19 2015 4:13AM Referring Provider Sushma e: [phone] ID: [id number] CT abdomen pelvis without contrast [[id number]] Impression 1. Slight increase in size of the small right pleural effusion with fluid tracking in the fissure. Otherwise stable chest. X-ray chest 1 view [[id number]] Possible mobile vegetation attached to the posterior mitral valve leaflet. This is a new fi nding vs prior Echo. Discussed with ICU physician. 2. Moderate, mobile vegetation attached to the septal tricuspid valve leaflet. Echo cardiac adult complete [[id number]] ANITA report pending PROBLEM LIST Principal Problem: Sepsis (HCC) Active Problems: Hyposmolality and/or hyponatremia MARCEL (acute kidney injury) (HCC) Leucocytosis Thrombocytopenia (HCC) Toxic metabolic encephalopathy Acute respiratory failure with hypoxia (HCC) Heroin abuse Methamphetamine abuse Tobacco abuse Acute septic pulmonary embolism (HCC) Acute infective endocarditis Moderate protein-calorie malnutrition (HCC) ASSESSMENT & PLAN Gram-positive sepsis, MSSA tricuspid valve endocarditis -Patient has MSSA bacteremia, tricuspid valve endocarditis with septic pulmonary emboli re lated to IV drug use -Neck pain and back pain improved; noncontrast MRI of spine and brain on presentation show s no evidence of infection -No evidence of septic arthritis; evaluated by orthopedics -Blood cultures on admission here have no growth. -CT scan performed on October 08 confirmed continued pleural effusion on the left, chest tube placed and d/c'd. CXR shows stable findings. -On 10/17, he was febrile so blood cultures repeated on 10/17 with no growth to date. TTE s howed tricuspid valve vegetation and a new mitral valve vegetation. Transesophageal echocard iogram verbal report showed no MV vegetation; piercing artist updated Dr. Blue CTS with plan to continue medical management. Right upper extremity PICC d/c'd on 10/18, catheter tip cult ure in process. Right IJ hemodialysis catheter has been replaced. -continue IV nafcillin, day of -If 10/17 blood cultures continue to show no growth, may replace PICC and place tunneled HD catheter tomorrow Abdominal pain -CT scan shows ileum and right colon wall thickening. He had loose stools but C. difficile on 10/13 was negative. ?embolic/ischemic etiology Encephalopathy, metabolic -currently sedated; oriented during sedation holiday Acute hypoxemic respiratory failure -Reintubated on 10/11. No significant change in pulmonary appearance on chest x-ray. Noted findings on bedside US MARCEL -No adjustment needed for nafcillin. Abnormal LFTs -Better Petechial/purpuric rash -Suspect ecthyma. Improving. IV drug use -Not a candidate for outpatient IV antibiotics. HIV negative. Case discussed with Dr. Munoz Code Status: Full Code USMAN VILLATORO MD 10/20/2015 Ronaldo Aviles ARNP - 10/20/2015 6:32 AM PDT Nurse Progress Note by Ronaldo Clement RN at 10/20/15631 Author: Ronaldo Clement RN Service: (none) Author Type: Registered Nurse Filed: 10/20/15 0634 Date of Service: 10/20/15631 Status: Signed Bisque Brusher: Ronaldo Clement RN (Registered Nurse) While attempting to lower sedation patient became restless and removed rectal tube. Ronaldo Clement RN 6:34 AM Ronaldo Aviles ARN P - 10/20/2015 4:39 AM PDT Nurse Progress Note by Ronaldo Clement RN at 10/20/15 0439 Author: Ronaldo Clement RN Service: (none) Author Type: Registered Nurse Filed: 10/20/159 Date of Service: 10/20/159 Status: Signed Bisque Brusher: Ronaldo Clement RN (Registered Nurse) Trickle feedings started, per Dr. Rod. Ronaldo Clement RN 4:39 AM Ronaldo Aviles ARN P - 10/19/2015 11:06 PM PDT Nurse Progress Note by Ronaldo Clement RN at 10/19/152305 Author: Ronaldo Clement RN Service: (none) Author Type: Registered Nurse Filed: 10/20/15439 Date of Service: 10/19/152305 Status: Addendum Bisque Brusher: Ronaldo Clement RN (Registered Nurse) Related Notes: Original Note by Ronaldo Clement RN (Registered Nurse) filed at 10/19/152308 Propofol, fentanyl, and ketamine drips currently running, patient wakes up easily and able to follow commands and communicates witting on a board, patient is oriented X3, per intensiv ist due to patient condition and high tolerance to sedation and opioids no full sedation hol iday is appropriate at this time. Ronaldo Clmeent RN 11:09 PM Ronaldo Aviles ARN P - 10/19/2015 7:27 PM PDT Nurse Progress Note by Ronaldo Clement RN at 10/19/151926 Author: Ronaldo Clement RN Service: (none) Author Type: Registered Nurse Filed: 10/19/151939 Date of Service: 10/19/151926 Status: Addendum Bisque Brusher: Ronaldo Clement RN (Registered Nurse) Related Notes: Original Note by Ronaldo Clement RN (Registered Nurse) filed at 10/19/151930 Patient complaining of severe abdominal pain, currently on 80mcg/kg/min of propofol, 150mcg /hr of fentanyl, and 1mg IVP hydromorphone given, awake and rating pain 10/10. Ronaldo Clement RN 7:31 PM Delfino Melendez MD - 10/19/2015 10:38 AM PDTFormatting of this note might be different from the orig inal. Progress Notes by Delfino Vora MD at 10/19/15 1038 Author: Delfino Vora MD Service: Nephrology Author Type: Physician Filed: 10/19/15 1039 Date of Service: 10/19/15 1038 Status: Signed Bisque Brusher: Delfino Vora MD (Physician) [facility] Service: Nephrology Renal Consult Progress Note Yang Ridley [id number] Hospital Day: LOS: 18 days SUBJECTIVE Patient Summary: Patient seen and examined. intubated Scheduled Medications clonazePAM 1 mg Oral BID famotidine 20 mg Oral Daily gentamicin Topical Daily heparin (porcine) 5000 unit/0.5mL 5,000 Units Subcutaneous 3 times per day nafcillin 2 g Intravenous Q4H nystatin 5 mL Mouth/Throat 4x Daily QUEtiapine 25 mg Oral QAM QUEtiapine 50 mg Oral QPM sodium chloride 0.9 % sodium chloride 10 mL Intravenous 2 times per day sodium citrate anticoagulant 4 % 6 mL Intracatheter Daily Continuous Infusions fentaNYL in NS 5 mcg/mL 150 mcg/hr (10/18/15 1957) propofol 80 mcg/kg/min (10/19/15 1009) sodium chloride (IV) 15 mL/hr at 10/14/15 1547 PRN Medications acetaminophen, albumin human, albuterol, albuterol, aluminum-magnesium hydroxide-simethicon e, szcpbisrjmZSAZF-nrmmca-cerhswgim oral solution, ipratropium, lip moisturizer, metoclopram blake, ondansetron OR ondansetron, pancrelipase (Nnp-Bmgy-Mapa)12,000 units, promethazine, simethicone, sodium bicarbonate, sodium chloride, white petrolatum OBJECTIVE Vital Signs: BP 131/81 mmHg | Pulse 96 | Temp(Src) 98.4 F (36.9 C) (Oral) | Resp 19 | Ht 1.702 m (5' 7") | Wt 73.2 kg (161 lb 6 oz) | BMI 25.27 kg/m2 | SpO2 99% Intake/Output Summary (Last 24 hours) at 10/19/15 1038 Last data filed at 10/19/15 0657 Gross per 24 hour Intake 2652.5 ml Output 0 ml Net 2652.5 ml Gen: NAD, A&Ox3 Neck: rt ij temp catheter Pulm: CTA b/l, good air movement, no w/r/r CV: RRR, nl S1S2, no rub Abd: Soft, NT/ND, NABS Ext: no c/c/e Access: rt ij temp catheter DATA Recent Labs Lab 10/19/15 04510/18/15 0511 10/17/15 0335 10/16/15 0328 CREATININE 4.1* 3.6* 4.7* 3.9* Recent Labs Lab 10/19/15 04510/18/15 0511 10/17/15 0335 10/16/15 0328 NA 131* 133* 135 136 K 3.3* 3.6 3.8 4.0 CL 98* 100 101 101 CO2 18* 20* 19* 23 BUN 58* 47* 73* 54* CA 7.4* 7.6* 7.6* 7.6* PHOS 7.1* 5.5* 5.7* 3.6 MG 2.0 2.0 2.1 2.1 Recent Labs Lab 10/19/15 0517 10/19/15 04510/18/15 0511 10/17/15 0335 10/16/15 0328 10/15/15 0357 10/13/15 0402 ALB -- 1.3* 1.4* 1.4* 1.5* -- < > 1.6* ALP -- 73 80 69 72 -- < > 83 AST -- 29 26 21 25 -- < > 37 ALT -- 22 17 16 18 -- < > 21 INR 1.1 DUPLICATE ORDER -- -- -- 1.1 -- 1.1 < > = values in this interval not displayed. Recent Labs Lab 10/19/15 0452 10/18/15 0511 10/17/15 1002 10/17/15 0335 WBC 9.56 11.38* 12.06* 10.13 RBC 2.73* 2.91* 3.12* 2.10* HGB 8.0* 8.3* 8.9* 6.1* HCT 24.3* 25.7* 27.7* 19.0* PLT 224 204 203 186 MCV 88.9 88.3 88.8 90.3 RDW 55.1* 52.5 48.6 55.1* Recent Labs Lab 10/19/15 0517 10/19/15 0452 10/15/15 0357 10/13/15 0402 INR 1.1 DUPLICATE ORDER 1.1 1.1 PROBLEM LIST Principal Problem: Sepsis (HCC) Active Problems: Hyposmolality and/or hyponatremia MARCEL (acute kidney injury) (HCC) Leucocytosis Thrombocytopenia (HCC) Toxic metabolic encephalopathy Acute respiratory failure with hypoxia (HCC) Heroin abuse Methamphetamine abuse Tobacco abuse Acute septic pulmonary embolism (HCC) Acute infective endocarditis Moderate protein-calorie malnutrition (HCC) ASSESSMENT & PLAN The patient is a 30 y.o. male with significant history of tobacco and drug abuse using jennifer y heroin and methamphetamine, also on Suboxone. He initially presented to [facility] for progressive weakness, lethargy, and generalized pain for the past 7 days. He noti edy that his ankles and right knee were swollen but not warm or erythematous. According to h is girlfriend, he has been feeling sick and febrile for the past week with poor oral intake. LP was performed to rule out meningitis. IV antibiotics started, ceftriaxone 2 gm and vanco mycin [address] head and C-spine x-ray performed, patient decompensated and was intubat ed for respiratory failure and airway protection and admitted to the ICU. Significant labs on initial presentation : Na 114 (1435 hrs), BUN 81, Crea 2.48, Over next 12-24 hrs, his sodium abruptly improved to a peak of126 by 6 AM on 10/01, so c ounter measures were started to avoid over correction. Patient received DDAVP X2 X 2 MCG AT 4 AND 8 AM ON 10/01 and is on D5W AT 200 ML/HR. He has never been hospitalized because of low sodium. He has never been symptomatic because of low sodium. There are no herbal preparation intake; he does not have hx of liver cirrhos is. He does not have hx of CHF, hypothyroidism or adrenal insufficiency.There is no hx of ch ronic diarrhea and no N/V. ARF Differential includes, post infectious vs atn from sepsis, still no signs of renal recovery , will do a kidney biopsy (order placed) Dialysis tpday Will convert his temp catheter to PC, we are aware of his h/o iv drug abuse but consideri ng that dialysis is a life saving treatment, will go ahead and place a PC.(IR has been consu lted) daily weights and strict I/O's Diet should be 0.8 gm/kg protein, 1 gm PO4, 2 gm Na, and 2 gm K restricted diet. medications to be dosed for estimated eGFR Of 15 NSAIDs (including FRASER 2 inhibitors) should not be used. Magnesium and aluminum containing antacids should be avoided. Magnesium or phosphorus containing laxatives should be avoided. Code Status: Full Code Delfino Vora MD 10/19/2015 10:38 AM onversion Transaction, Provider Unknown - 10/19/2015 10:12 AM PDTFormatting of this note might be dif ferent from the original. Case Management by SAMEERA Huggins at 10/19/15 1012 Author: SAMEERA Huggins Service: (none) Author Type: Fuse Assembler Filed: 10/19/15 1015 Date of Service: 10/19/15 1012 Status: Signed Bisque Brusher: SAMEERA Huggins (Fuse Assembler) Attended morning rounds. Pt remains vented. HD catheter placed this morning. Phone call francis Kohli to notify of acute status for dialysis. 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 male with significant history of tobacco and drug abuse using daily heroin and methamphetamine, also on Suboxone. He initially presented to [facility] for progressive weakness, lethargy, and ge neralized pain (mostly his chest, neck, back, knees, ankles and toes) for the past 7 days. Imer e noticed that his ankles and right knee were swollen but not warm or erythematous. Accordin g to his girlfriend, he has been feeling sick and febrile for the past week with poor PO int elisha. Yesterday, she noticed that he seemed like he was hallucinating and talking to himself. He was very weak today that she had to assist him to get into the car to go the the ED. Exam at OSH was significant for point tenderness at the area of the cervical spine and posi tive Kernig's sign. LP was performed to rule out meningitis. IV antibiotics started, ceftria xone 2 gm and vancomycin [address] head and C-spine x-ray performed, MRI attempted but patient decompensated and was intubated for respiratory failure and airway protection. Significant labs: Na 114 (1435 hrs), BUN 81, Crea 2.48, WBC 19.9, Hb 11.6, Plt 51, Tbili 3. 6, AST 188, ALT 155, LA 1.7. CSF: clear, colorless, WBC 0, RBC 3. Protein 31. Glucose 50. Culture with no growth to d ate Blood cultures are reported to be growing GPCs at [facility] Transferred to [facility] for further care. MRI of brain and spine carried out with limited findi ngs due to non-contrast study. Evaluated by Nephrology, acute renal failure attributed to hemodynamics. Evaluated by Dr. Bhardwaj from orthopedics: Does not think patient has ankle septic joint and does not recomme nd surgical intervention. Echocardiogram showed moderate size mobile vegetation attached to the septal tricuspid valv e leaflet, moderate tricuspid regurgitation, moderate pulmonary hypertension with mildly enl arged right ventricle. Evaluated by CTS, surgery not recommended On 10/01, extubated On 10/02, he was transferred out of the ICU. On 10/04, patient had worsening mental status and also became tachypneic. He became more hy ponatremic with worsening renal function. Bilateral moderate sized pleural effusions were n oted on chest CT scan. Bedside ultrasound with bilateral pleural effusion, R>L. Left minimal and without echogenic ity suggestive of infectious pleural effusion. Left effusion is moderate with fibrin strands concerning for complicated/infectious pleural effusion. Right pig tail chest tube placed wi th purulent drainage. Head CT scan negative On 10/05, started on hemodialysis On October 08, left chest tube was placed. Reintubated on October 11. On 10/16-, patient was febrile to 101.4F. Blood cultures were sent. CC: Staphylococcal sepsis, right-sided endocarditis Chart reviewed Events Overnight: T-max of 99.9F. Echocardiogram shows possible mobile vegetation at the posterior mitral valve leaflet, this is new. Moderate, mobile vegetation a tricuspid valve leaflet. Patient has a new right IJ HD catheter. With complaint of abdominal pain and tenderness, CT scan done and shows mid to distal ileum and right colitis. He has had a rec dee dee tube. Scheduled Medications clonazePAM 1 mg Oral BID famotidine 20 mg Oral Daily gentamicin Topical Daily heparin (porcine) 5000 unit/0.5mL 5,000 Units Subcutaneous 3 times per day nafcillin 2 g Intravenous Q4H nystatin 5 mL Mouth/Throat 4x Daily QUEtiapine 25 mg Oral QAM QUEtiapine 50 mg Oral QPM sodium chloride 0.9 % sodium chloride 10 mL Intravenous 2 times per day sodium citrate anticoagulant 4 % 6 mL Intracatheter Daily Continuous Infusions fentaNYL in NS 5 mcg/mL 150 mcg/hr (10/18/15 1957) propofol 60 mcg/kg/min (10/19/15 0732) sodium chloride (IV) 15 mL/hr at 10/14/15 1547 PRN Medications acetaminophen, albumin human, albuterol, albuterol, aluminum-magnesium hydroxide-simethicon e, qgpkbmmubvITAEW-fuuwwd-hqmniuyyi oral solution, ipratropium, lip moisturizer, metoclopram blake, ondansetron OR ondansetron, pancrelipase (Tyu-Csrj-Xsqn)12,000 units, pancrelipase (Vlv-Isls-Fnjq)12,000 units, promethazine, simethicone, sodium bicarbonate, sodium bicarbona te, sodium chloride, white petrolatum OBJECTIVE Vital Signs: BP 132/76 mmHg | Pulse 96 | Temp(Src) 98.4 F (36.9 C) (Oral) | Resp 17 | Ht 1.702 m (5' 7") | Wt 68.8 kg (151 lb 10.8 oz) | BMI 23.75 kg/m2 | SpO2 99% Temp: [98.4 F (36.9 C)-99.9 F (37.7 C)] 98.4 F (36.9 C) (10/19 399) BP: (127-151)/(73-103) 131/81 mmHg (10/18 699) Heart Rate: [96-110] 96 (10/18 699) Resp: [15-24] 17 (10/18 699) SpO2: [88 %-100 %] 100 % (10/18 699) Height: [170.2 cm (5' 7")] 170.2 cm (5' 7") (10/17 1948) FiO2 : [30 %] 30 % (10/19 399) Physical Exam Vital signs have been reviewed Gen.: Intubated, on ventilatory support. Sedated HEENT: Anicteric sclerae. Pupils are reactive to light. Improved appearance of nasal, oral labial mucosa. Right IJ HD catheter is unremarkable except for blood underneath the dressing Lungs: Mechanical breath sounds Cardiovascular: RRR. No murmur Abdomen: No distention. Soft. No tenderness or palpable masses Skin: Petechial/purpuric lesions at upper and lower extremities improving; sites of prior v esicles noted at legs - scabs noted RUE PICC site is unremarkable Musculoskeletal: No inflamed looking joints DATA CBC: Lab Results Component Value Date WBC 9.56 10/19/2015 RBC 2.73* 10/19/2015 HGB 8.0* 10/19/2015 HCT 24.3* 10/19/2015 MCV 88.9 10/19/2015 MCH 29.2 10/19/2015 MCHC 32.8 10/19/2015 RDW 55.1* 10/19/2015 PLT 224 10/19/2015 MPV 7.7 10/19/2015 DIFFTYPE AUTOMATED 10/19/2015 WBC: Lab Results Component Value Date WBC 9.56 10/19/2015 NEUTABSMAN 10.38* 10/17/2015 NEUTROABS 7.82* 10/19/2015 NEUTROMAN 86 10/17/2015 LYMPHOABS 0.84* 10/17/2015 LYMPHOMAN 7 10/17/2015 LYMPHSABS 0.63* 10/19/2015 LYMPHOPCT 6.61 10/19/2015 MONOABSMAN 0.48 10/17/2015 MONOMAN 4 10/17/2015 MONOPCT 6.45 10/19/2015 EOSINOABS 0.12 10/17/2015 EOSINOMAN 1 10/17/2015 EOSABS 0.42 10/19/2015 EOSPCT 4.41 10/19/2015 BASOSABS 0.07 10/19/2015 BASOPCT 0.73 10/19/2015 PLTEST ADEQUATE 10/18/2015 BANDSPCT 2 10/17/2015 METAABS 0.26* 10/13/2015 METAPCT 1 10/13/2015 MYELOABS 0.17* 10/09/2015 MYELOPCT 1 10/09/2015 COMDIFF SLIDE SCANNED, AGREES WITH AUTOMATED RESULTS. 10/18/2015 CMP: Lab Results Component Value Date NA 131* 10/19/2015 K 3.3* 10/19/2015 CL 98* 10/19/2015 CO2 18* 10/19/2015 ANIONGAP 19 10/19/2015 GLUF 92 10/19/2015 BUN 58* 10/19/2015 CREATININE 4.1* 10/19/2015 BCR 14 10/19/2015 CA 7.4* 10/19/2015 PROT 5.9* 10/19/2015 ALB 1.3* 10/19/2015 GLOB 4.6 10/19/2015 BILITOT 1.7* 10/19/2015 ALP 73 10/19/2015 AST 29 10/19/2015 ALT 22 10/19/2015 EGFR 18* 10/19/2015 PT/INR: Lab Results Component Value Date PROTIME DUPLICATE ORDER 10/19/2015 INR 1.1 10/19/2015 PTT: Lab Results Component Value Date APTT 27 10/19/2015 [APTT} Microbiology data: 10/13 C. difficile PCR negative 10/09 C. difficile negative 10/11 HSV oral culture negative 10/05 pleural fluid culture negative 09/30 tracheal aspirate culture grew MSSA 10/17 blood cultures are in process 09/30 blood cultures with no growth Impression 1. Long segment of wall thickening involving the mid to distal ileum and right colon. This can be seen with infectious, inflammatory, or ischemic enteritis. 2. Mild diffuse mesenteric edema and free fluid. This is likely mostly secondary to patient 's underlying severe anasarca. 3. Decreasing pleural effusions and evidence of septic pulmonary emboli and at the lung bas es. RADIA Electronically signed by Abran Calderon MD on Oct 19 2015 4:13AM Referring Provider Sushma e: [phone] ID: [id number] CT abdomen pelvis without contrast [[id number]] Impression 1. Stable support equipment 2. Stable patchy and nodular inflammatory infiltrates throughout all lung barry, with stab le bibasilar pleural effusions chest 1 view [[id number]] Possible mobile vegetation attached to the posterior mitral valve leaflet. This is a new fi nding vs prior Echo. Discussed with ICU physician. 2. Moderate, mobile vegetation attached to the septal tricuspid valve leaflet. Echo cardiac adult complete [[id number]] PROBLEM LIST Principal Problem: Sepsis (HCC) Active Problems: Hyposmolality and/or hyponatremia MARCEL (acute kidney injury) (HCC) Leucocytosis Thrombocytopenia (HCC) Toxic metabolic encephalopathy Acute respiratory failure with hypoxia (HCC) Heroin abuse Methamphetamine abuse Tobacco abuse Acute septic pulmonary embolism (HCC) Acute infective endocarditis Moderate protein-calorie malnutrition (HCC) ASSESSMENT & PLAN Gram-positive sepsis, MSSA tricuspid valve endocarditis -Patient has MSSA bacteremia, tricuspid valve endocarditis with septic pulmonary emboli re lated to IV drug use -Neck pain and back pain improved; noncontrast MRI of spine and brain on presentation show s no evidence of infection -No evidence of septic arthritis; evaluated by orthopedics -Blood cultures on admission here have no growth so PICC placed. -CT scan performed on October 08 confirmed continued pleural effusion on the left, chest tube placed and d/c'd. CXR shows stable findings. -On 10/17, he was febrile so blood cultures repeated. TTE shows tricuspid valve vegetation and a new mitral valve vegetation. Transesophageal echocardiogram planned for today. Right upper extremity PICC to be removed with catheter tip for culture. Right IJ hemodialysis cath eter has been replaced. Abdominal pain -CT scan shows ileum and right colon wall thickening. He has loose stools but C. difficile on 10/13 was negative. ?embolic/ischemic Encephalopathy, metabolic -currently sedated Acute hypoxemic respiratory failure -Reintubated on 10/11. No significant change in pulmonary appearance on chest x-ray. Noted findings on bedside US MARCEL -No adjustment needed for nafcillin. Abnormal LFTs -Better Petechial/purpuric rash -Suspect ecthyma. Improving. IV drug use -Not a candidate for outpatient IV antibiotics. HIV negative. Case discussed with Dr. Munoz and Dr. Rod Code Status: Full Code USMAN VILLATORO MD 10/19/2015 onversion Moses saction, Provider Unknown - 10/19/2015 7:01 AM PDTFormatting of this note might be differen t from the original. Nurse Progress Note by Maureen Sigala RN at 10/19/15 07 Author: Maureen Sigala RN Service: (none) Author Type: Registered Nurse Filed: 10/19/15702 Date of Service: 10/19/15700 Status: Signed Bisque Brusher: Maureen Sigala RN (Registered Nurse) Pt brought down for CT at approximately 0330. Pt tolerated transfer well, however after set tling pt back in the room, pt began complaining of sharp central chest pain that awoke pt fr om rest. MD notified, cardiac enzymes and stat EKG performed. Pt no longer complaining of ch est pain but rather is motioning to abdomen and continues to communicate that he is having g eneralized pain there. HD catheter placed by Dr. Rod at bedside 0630. Pt tolerated procedure well with multipl e boluses of sedation from propofol and fentanyl already infusing. Will transfer infusing li dominique to HD catheter pigtail and RN to remove R arm PICC. Will continue to monitor pt. Maureen Espana RN Maegan Patten MD - 10/19/2015 4:57 AM PDT Progress Notes by Maegan Rod MD at 10/19/15456 Author: Maegan Rod MD Service: Auto Dealer Author Type: Physician Filed: 10/19/15520 Date of Service: 10/19/15456 Status: Signed Bisque Brusher: Maegan Rod MD (Physician) [facility] Service: Auto Dealer Progress Note Yang Ridley 30 y.o. Hospital Day: LOS: 18 days Post-Op Day: * No surgery found * Consulting Physicians Treatment Team: Consulting Physician: Chris Swann DO Consulting Physician: Renetta Buck MD Consulting Physician: Gonzalez Bhardwaj MD Surgeon: Blanca Arias MD Consulting Physician: Blanca Arias MD Admitting Provider: Carly Thomas DO SUBJECTIVE Patient Summary: The patient is a 30 y.o. male with significant history of tobacco an d drug abuse using daily heroin and methamphetamine, also on Suboxone. He initially presen latasha to [facility] for progressive weakness, lethargy, and generalized pain (most ly his chest, neck, back, knees, ankles and toes) for 7 days. According to his girlfriend, he was feeling sick and febrile for a week with poor PO intake; she also noticed that his an kles and right knee were swollen but not warm or erythematous, and he seemed to be "halluinc ating and talking to himself". Exam at OSH was significant for point tenderness at the area of the cervical spine and posi tive Kernig's sign. LP was performed to rule out meningitis. IV antibiotics started, ceftria xone 2 gm and vancomycin [address] head and C-spine x-ray performed, MRI attempted but patient decompensated and was intubated for respiratory failure and airway protection. Significant labs: Na 114 (1435 hrs), BUN 81, Crea 2.48, WBC 19.9, Hb 11.6, Plt 51, Tbili 3. 6, AST 188, ALT 155, LA 1.7. CSF: clear, colorless, WBC 0, RBC 3. Transferred to [facility] for further care. Timeline: Evaluated by Nephrology, acute renal failure attributed to hemodynamics. Evaluated by Dr. Bhardwaj from orthopedics: Does not think patient has ankle septic joint and does not re commend surgical intervention. Echocardiogram showed moderate size mobile vegetation attached to the septal tricuspid v alve leaflet, moderate tricuspid regurgitation, moderate pulmonary hypertension with mildly enlarged right ventricle. Evaluated by CTS, surgery not recommended On 10/01, extubated. MRI spine w/o evidence abscess On 10/02, he was transferred out of the ICU. 10/04-Transferred to ICU for worsening mental status, drop of Na from 122 to 117 and wors ening renal function 10/05-HD line placed, started on dialysis. Right pigtail chest tube with drainage of 1400 ml serosanguineous exudate 10/06-Dialysis session. Improved encephalopathy. Anxiety requiring high dose precedex. 10/07-Right pigtail chest catheter removed 10/08-dialysis again today, 3L removed; Cxr with bilateral effusions which appear to be a bout the same as yesterday; will repeat CT chest to evaluate further; continues to be anxiou s, c/o pain 10/09-dialysis again today, 3.5L removed, now with left pleural chest catheter placed ove rnight, immediately drained 850cc, only 50cc during the day today; intermittent fevers, tach ycardia persists; add seroquel BID 10/10--dialysis again today with anticipated 2.5L removal; L pleural chest catheter remov ed, f/u Cxr in 1 hour; if no issues post dialysis and f/u cxr will transfer to acute care be d 10/11--worsening hypoxia, tachypnea, and associated tachycardia so electively re-intubate d 10/12--restarted Levophed during dialysis today; fio2 weaned to 30%; HSV oral swab negati ve 10/13-- rested comfortably overnight, temps better, restarted tube feeds 10/14-- No acute events. HD today then attempt SBT 10/15- Hodling extubation 10/16-Holding extubation, transfused 2 units PRBC 10/17-Febrile, BC sent. Echo with new vegetation on anterior leaflet of mitral valve Overnight events: C/o 8/10 abdominal pain. Tender on examination. CT with evidence of term inal ileum and right colon colitis. OBJECTIVE VITAL SIGNS Temp: [98.6 F (37 C)-99.9 F (37.7 C)] 98.6 F (37 C) Heart Rate: [97-110] 101 Resp: [15-24] 17 BP: (127-151)/(73-97) 133/89 mmHg FiO2 : [30 %] 30 % Intake/Output Summary (Last 24 hours) at 10/19/15 0457 Last data filed at 10/18/15 1826 Gross per 24 hour Intake 2791.4 ml Output 2 ml Net 2789.4 ml EXAM GEN: intubated-lightly sedated Guillermo 3 NEURO: PERRLA, no facial asymmetry, moves all extremities well GCS: 11T HEENT: sclerae clear, nonicteric, oral mmm, NECK: supple, trachea midline HEART: Sinus tachycardia, S1/S2, 2/6 systolicmurmur LUNGS: scattered rhonchi bilaterally , no wheezing, or rales, symmetric chest expansion, ev en/unlabored respirations ABD: distended, tender to examination RLQ, no clear rebound sign EXTR: trace edema all extremities, no clubbing or cyanosis SKIN: diffuse purpuric palpable rash bilateral anterior lower extremities, also hand and fe et. Blisters noted within rash. Dressings to bilat elbows CDI. LInes: RUE PICC 10/03, ETT, Rectal tube. OGT LINES/TUBES: DATA Recent Labs Lab 10/18/15 0511 10/17/15 1002 10/17/15 0335 10/16/15 0328 10/15/15 0547 10/14/15 0542 WBC 11.38* 12.06* 10.13 13.71* 17.10* < > 19.40* RBC 2.91* 3.12* 2.10* 2.39* 2.38* < > 2.04* HGB 8.3* 8.9* 6.1* 6.9* 6.9* < > 5.8* HCT 25.7* 27.7* 19.0* 21.5* 20.8* < > 17.9* MCV 88.3 88.8 90.3 89.7 87.5 < > 87.6 MCH 28.7 28.6 29.1 28.9 29.0 < > 28.2 MCHC 32.5 32.2 32.3 32.2 33.2 < > 32.2 RDW 52.5 48.6 55.1* 51.6 50.3 < > 53.8* PLT 204 203 186 164 156 < > 157 MPV 7.8 8.4 8.3 8.8 7.9 < > 8.6 BANDSABS -- 0.24* -- 0.55* 0.17 -- -- NEUTROABS 9.90* -- 8.54* -- -- -- 16.89* LYMPHSABS 0.51* -- 0.68* -- -- -- 1.26 MONOSABS 0.64 -- 0.63 -- -- -- 0.94* BASOSABS 0.11* -- 0.05 -- -- -- 0.08 EOSABS 0.22 -- 0.22 -- -- -- 0.22 MORPH NORMAL PLT MORPH 1+ NORMAL PLT MORPH 1+ RBC AND PLT MORPHOLOGY APPEAR NORMAL -- NOR MAL PLT MORPH < > = values in this interval not displayed. Recent Labs Lab 10/18/15 0511 10/17/15 1013 10/17/15 0335 10/16/15 0328 NA 133* -- 135 136 K 3.6 -- 3.8 4.0 CL 100 -- 101 101 CO2 20* -- 19* 23 ANIONGAP 16 -- 19 16 GLUF 111* -- 104* 100* BUN 47* -- 73* 54* CREATININE 3.6* -- 4.7* 3.9* BCR 13 -- 16 14 CA 7.6* -- 7.6* 7.6* ALB 1.4* -- 1.4* 1.5* PROT 5.9* -- 5.7* 5.9* BILITOT 2.1* 1.7* 2.0* 1.9* ALT 17 -- 16 18 AST 26 -- 21 25 EGFR 21* -- 15* 19* PHOS 5.5* -- 5.7* 3.6 MG 2.0 -- 2.1 2.1 Recent Labs Lab 10/15/15 0357 10/13/15 [address] Chest Without Contrast 10/09/2015 1. Significant interval decrease in size of right pleural effusion, now small. Moderate to large left pleural effusion appears slightly decreased in size. Associated cons olidative opacity seen involving the lower lobes, likely representing pneumonia or atelectas is. 2. Essentially unchanged appearance of numerous bilateral cavitary lesions or airspace opacities 3. Wedge-shaped hypodensity in the anterior spleen, suspicious for an infarct. E lectronically signed by Ramone Abarca MD on 10/09/2015 4:42 PM Xr Chest 1 View 10/14/2015 1. Unchanged appearance of bilateral airspace and nodular/cavity opacities. 2. Unchanged at least small bilateral pleural effusions. LEM LIST Principal Problem: Sepsis (HCC) Active Problems: Hyposmolality and/or hyponatremia MARCEL (acute kidney injury) (HCC) Leucocytosis Thrombocytopenia (HCC) Toxic metabolic encephalopathy Acute respiratory failure with hypoxia (HCC) Heroin abuse Methamphetamine abuse Tobacco abuse Acute septic pulmonary embolism (HCC) Acute infective endocarditis Moderate protein-calorie malnutrition (HCC) ASSESSMENT & PLAN NEURO: Septic encephalopathy-Resolved. Will keep pt intubated for ANITA CSF w/o growth from [facility] Continue seroquel for anxiety/insomnia On propofol and fentanyl for sedation CV: Septic shock resolved. Hemodynamically stable on no vasoactive medication. 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 Will obt ain ANITA and r/o paravalvular abscess PULM: Recurrent Hypoxemic respiratory failure---Re-intubated 10/11. Daily SBT. Holding extubation for now Pulmonary septic embolic from MSSA tricuspid valve CT chest repeated 10/08--Right pleural effusion less s/p pigtail chest tube 10/05. Exudati ve by Lights criteria. PH, glucose not consistent with complicated infected effusion. DC'd Left pleural effusion, much improved s/p pigtail catheter placed 10/08, immediately drain ed 850cc---removed (10/10). F/U CT chest in the near future to ensure resolution of loculated effusion. US with trace bilateral pleural effusion 10/17 GI/NUTRITION: Severe malnutrition secondary to infectious process. Mild Transaminitis (resolved) with elevated bilirubin- Trending down, likely sepsis rela latasha . Hepatitis serologies and HIV negative. Continue to monitor. Abdominal distension and abdominal pain. CT abdomen with oral contrast with thickening o f terminal ileum and right colon. Clinically w/o GIB. Check serial lactates. Concern for isc hemic embolic phenomena. C diff negative 10/13 RENAL/LYTES: MARCEL. Anuric. Transitioned to conventional HD. ATN vs C3 staph induced glomeurlonephrit is. UA with hematuria. C3 low. C4 wnl. Low C3 likely from MSSA infectious process. Urine s ent at request of community resource consultant. Will obtain renal biopsy (ordered by Dr. Vora) Hyponatremia-resolved (na 136). Cortisol and TSH wnl Currenly w/o HD catheter access. Will hold on tunneled HD cath as there is evidence of p rogression of infectious endocarditis with now involvement of mitral valve. 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 Will obt ain ANITA and r/o paravalvular abscess Followe by ID. Currently on Nafcillin BC from 10/17 in process Remove PICC line HD temporary catheter placement HEME: Anemia-Multifactorial. Required blood transfusion 10/06 (2 units PRBC); 1 unit given 10/09 , 1u 10/13. Hb 6.1 10/16. Transfused 2 units PRBCs with appropriate response to 8.9. Haptoglob in wnl Continue to monitor ENDO: Monitor BS. Goal 80-180. Last 100 MUSC/SKIN: Vasculitis from IE/sepsis. Pt with purpura rash with blistering and bullae. Wound care consult ordered. Early mobility protocol PROPHYLAXIS: Stress ulcer prophylaxis: on PPI DVT prophylaxis: Heparin SC, foot pumps. (no scd's d/t skin integrity of legs) VAP bundle: chlorhexadine oral care, HOB >30 degrees Disposition: Critical care Code Status: Full Code *Please bill 30 minutes of critical care time spent evaluating the patient, reviewing the d michael and formulating a plan exclusive of all other procedures. Maegan Rod MD 10/19/2015 4:57 AM Delfino Melendez MD - 10/18/2015 5:07 PM PDTFormatting of this note might be different from the orig inal. Progress Notes by Delfino Vora MD at 10/18/15 5624 Author: Delfino Vora MD Service: Nephrology Author Type: Physician Filed: 10/18/15 1707 Date of Service: 10/18/151706 Status: Signed Bisque Brusher: Delfino Vora MD (Physician) [facility] Service: Nephrology Renal Consult Progress Note Yang Ridley [id number] Hospital Day: LOS: 17 days SUBJECTIVE Patient Summary: Patient seen and examined. Intubated and sedated Scheduled Medications clonazePAM 1 mg Oral BID famotidine 20 mg Oral Daily gentamicin Topical Daily heparin (porcine) 5000 unit/0.5mL 5,000 Units Subcutaneous 3 times per day nafcillin 2 g Intravenous Q4H nystatin 5 mL Mouth/Throat 4x Daily QUEtiapine 25 mg Oral QAM QUEtiapine 50 mg Oral QPM sodium chloride 10 mL Intravenous 2 times per day sodium citrate anticoagulant 4 % 6 mL Intracatheter Daily Continuous Infusions fentaNYL in NS 5 mcg/mL 150 mcg/hr (10/18/15 0100) propofol 60 mcg/kg/min (10/18/15 0608) sodium chloride (IV) 15 mL/hr at 10/14/15 1547 PRN Medications acetaminophen, albumin human, albuterol, albuterol, aluminum-magnesium hydroxide-simethicon e, wapsgzqvugFIXMJ-ymikkc-jzsepoynp oral solution, HYDROmorphone, ipratropium, lip moisturiz er, metoclopramide, ondansetron OR ondansetron, pancrelipase (Cfe-Nobr-Hjst)12,000 units , pancrelipase (Pel-Opgu-Ueri)12,000 units, promethazine, simethicone, sodium bicarbonate, s odium bicarbonate, sodium chloride, white petrolatum OBJECTIVE Vital Signs: BP 131/81 mmHg | Pulse 109 | Temp(Src) 99.9 F (37.7 C) (Oral) | Resp 19 | Ht 1.702 m (5 ' 7") | Wt 68.8 kg (151 lb 10.8 oz) | BMI 23.75 kg/m2 | SpO2 98% Intake/Output Summary (Last 24 hours) at 10/18/151706 Last data filed at 10/18/15 0800 Gross per 24 hour Intake 2800.3 ml Output 5 ml Net 2795.3 ml Gen: NAD, A&Ox3 Neck: No JVD Pulm: CTA b/l, good air movement, no w/r/r CV: RRR, nl S1S2, no rub Abd: Soft, NT/ND, NABS Ext: 1+ edema DATA Recent Labs Lab 10/18/15 0511 10/17/15 0335 10/16/1532710/15/15 035 CREATININE 3.6* 4.7* 3.9* 5.7* Recent Labs Lab 10/18/15 0511 10/17/15 0335 10/16/1532710/15/15356 NA 133* 135 136 135 K 3.6 3.8 4.0 3.5 CL 100 101 101 99 CO2 20* 19* 23 20* BUN 47* 73* 54* 87* CA 7.6* 7.6* 7.6* 6.8* PHOS 5.5* 5.7* 3.6 3.5 MG 2.0 2.1 2.1 2.3 Recent Labs Lab 10/18/15 0510/17/15 0335 10/16/158 10/15/1535610/14/15 04010/13/15 04010/12/15 032 ALB 1.4* 1.4* 1.5* -- 2.0* 1.6* 2.0* ALP 80 69 72 -- 82 83 73 AST 26 21 25 -- 33 37 33 ALT 17 16 18 -- 21 21 18 INR -- -- -- 1.1 -- 1.1 1.2 Recent Labs Lab 10/18/15 0510/17/15 1002 10/17/1533410/16/15 032 WBC 11.38* 12.06* 10.13 13.71* RBC 2.91* 3.12* 2.10* 2.39* HGB 8.3* 8.9* 6.1* 6.9* HCT 25.7* 27.7* 19.0* 21.5* PLT 204 203 186 164 MCV 88.3 88.8 90.3 89.7 RDW 52.5 48.6 55.1* 51.6 Recent Labs Lab 10/15/15 03510/13/15 04010/12/15 0321 INR 1.1 1.1 1.2 PROBLEM LIST Principal Problem: Sepsis (HCC) Active Problems: Hyposmolality and/or hyponatremia MARCEL (acute kidney injury) (HCC) Leucocytosis Thrombocytopenia (HCC) Toxic metabolic encephalopathy Acute respiratory failure with hypoxia (HCC) Heroin abuse Methamphetamine abuse Tobacco abuse Acute septic pulmonary embolism (HCC) Acute infective endocarditis Moderate protein-calorie malnutrition (HCC) ASSESSMENT & PLAN The patient is a 30 y.o. male with significant history of tobacco and drug abuse using jennifer y heroin and methamphetamine, also on Suboxone. He initially presented to [facility] for progressive weakness, lethargy, and generalized pain for the past 7 days. He noti edy that his ankles and right knee were swollen but not warm or erythematous. According to imer valverde girlfriend, he has been feeling sick and febrile for the past week with poor oral intake. LP was performed to rule out meningitis. IV antibiotics started, ceftriaxone 2 gm and vanco mycin [address] head and C-spine x-ray performed, patient decompensated and was intubat ed for respiratory failure and airway protection and admitted to the ICU. Significant labs on initial presentation : Na 114 (1435 hrs), BUN 81, Crea 2.48, Over next 12-24 hrs, his sodium abruptly improved to a peak of126 by 6 AM on 10/01, so c ounter measures were started to avoid over correction. Patient received DDAVP X2 X 2 MCG AT 4 AND 8 AM ON 10/01 and is on D5W AT 200 ML/HR. He has never been hospitalized because of low sodium. He has never been symptomatic because of low sodium. There are no herbal preparation intake; he does not have hx of liver cirrhos is. He does not have hx of CHF, hypothyroidism or adrenal insufficiency.There is no hx of ch ronic diarrhea and no N/V. ARF Differential includes, post infectious vs atn from sepsis, still no signs of renal recovery , will do a kidney biopsy (order placed) Dialysis again after PC placement Will convert his temp catheter to PC, we are aware of his h/o iv drug abuse but consideri ng that dialysis is a life saving treatment, will go ahead and place a PC.(IR has been consu lted) daily weights and strict I/O's Diet should be 0.8 gm/kg protein, 1 gm PO4, 2 gm Na, and 2 gm K restricted diet. medications to be dosed for estimated eGFR Of 15 NSAIDs (including FRASER 2 inhibitors) should not be used. Magnesium and aluminum containing antacids should be avoided. Magnesium or phosphorus containing laxatives should be avoided. Code Status: Full Code Delfino Vora MD 10/18/2015 5:07 PM onversion Transaction, Provider Unknown - 10/18/2015 1:27 PM PDTFormatting of this note might be dif ferent from the original. Progress Notes by Milton Henderson RD at 10/18/151326 Author: Milton Henderson RD Service: (none) Author Type: Registered Dietitian Filed: 10/18/151326 Date of Service: 10/18/151326 Status: Signed Bisque Brusher: Milton Henderson RD (Registered Dietitian) 10/18/15 1310 Subjective Timepoint Follow up Pt c/o H risk follow. Pt remains intubated, sedated, is recieving Trickle feeds of Novasour ce Renal at 10 ml/hr. Pt now having BM's, per rounds plan is to advance TF as tolerated to g oal rate. Reported by Fluid / Beverage Intake Oral Fluids Amount NPO Food Intake Amount of Food NPO Enteral Nutrition Intake Access OG tube. Rate/Solution Trickle feeds Novasource Renal at 10 ml/hr. Feeding tube flush Free water flushes 30 ml q 4 hours. Parenteral Nutrition Intake Rate/Solution Propofol running at 24.5 ml/hr provides approx 647 kcal/day. NS running at 15 ml/hr. Nutrition-Focused Physical Findings Digestive System (Mouth to Rectum) Pt is having stools, reglan ordered prn to help with GI motility. Skin Pt has bullae on bilateral arms and legs wound care following. Anthropometrics Weight change Pt's wt is down 0.3 kg since admit, according to I/O's pt is + 10.8 L of flui d, concerned that fluid accumulation is masking loss of LBM. Will continue to monitor. Biochemical data, medical tests, and procedures reviewed Biochemical data, medical tests, and procedures reviewed Na 133 L, BUN 47 H, Cr 3.6 H, phos 5.5 H, pt has been getting daily HD. BG controlled 100's. Recommendations Recommended energy needs Recommend switching TF formula to enhance tolerance and better belkis t pt's estimated nutrition needs to Peptamen 1.5 with goal rate of 50 ml/hr (x 20hr) to prov blake 1500 kcal, 68 g protein, 1000 ml TV, 771 ml free water. In addition add 2 scoops of bene protein TID in water flushes for an extra 150 kcal, 36 g protein. Overall TF, beneprotein, a nd propofol will provide 2297 kcal, 104 g protein which supplies 33 kcal/kg, 1.5 g pro/kg ba sed on admit wt. Further nutrition recs to follow based on pt's status, plan of care, meds, and labs. Nutritional Risk Nutritional risk High Follow up date 10/21/[address] onver patti Transaction, Provider Unknown - 10/18/2015 10:04 AM PDT Case Management by SAMEERA Huggins at 10/18/15 1004 Author: SAMEERA Huggins Service: (none) Author Type: Fuse Assembler Filed: 10/18/15 1009 Date of Service: 10/18/15 1004 Status: Signed Bisque Brusher: SAMEERA Huggins (Fuse Assembler) Attended morning rounds. Pt remains vented. He is getting daily dialysis. Kidney biopsy to be done on 10/18. Will remain vented until then. Follows commands. onver patti Transaction, Provider Unknown - 10/18/2015 8:33 AM PDT Therapy Progress Note by Abran Parrish PT at 10/18/15 0814 Author: Abran Parrish PT Service: (none) Author Type: Physical Therapist Filed: 10/18/15 4263 Date of Service: 10/18/15 1578 Status: Signed Bisque Brusher: Abran Parrish PT (Physical Therapist) 10/18/15 1115 PT Last Visit PT Received On 10/18/15 Requires PT Follow Up Unavailable;On hold Other Comments Comments Pt. is receiving daily HD and remains intubated/sedated. Will remove from caseloa d and await new orders when ready for PT reassessment. Usman Blount MD - 10/18/2015 6:38 AM PDT Progress Notes by Usman Villatoro MD at 10/18/15 0638 Author: Usman Villatoro MD Service: Infectious Disease Author Type: Physician Filed: 10/18/15 1142 Date of Service: 10/18/1538 Status: Signed Bisque Brusher: Usman Villatoro MD (Physician) [facility] Service: Infectious Disease Progress Note Hospital Day: LOS: 17 days Post-Op Day: * No surgery found * SUBJECTIVE Patient Summary: CC: Fever, chest pain and altered mental status From [employer] admission note on 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 male with significant history of tobacco and drug abuse using daily heroin and methamphetamine, also on Suboxone. He initially presented to [facility] for progressive weakness, lethargy, and ge neralized pain (mostly his chest, neck, back, knees, ankles and toes) for the past 7 days. H e noticed that his ankles and right knee were swollen but not warm or erythematous. Accordin g to his girlfriend, he has been feeling sick and febrile for the past week with poor PO int elisha. Yesterday, she noticed that he seemed like he was hallucinating and talking to himself. He was very weak today that she had to assist him to get into the car to go the the ED. Exam at OSH was significant for point tenderness at the area of the cervical spine and posi tive Kernig's sign. LP was performed to rule out meningitis. IV antibiotics started, ceftria xone 2 gm and vancomycin [address] head and C-spine x-ray performed, MRI attempted but patient decompensated and was intubated for respiratory failure and airway protection. Significant labs: Na 114 (1435 hrs), BUN 81, Crea 2.48, WBC 19.9, Hb 11.6, Plt 51, Tbili 3. 6, AST 188, ALT 155, LA 1.7. CSF: clear, colorless, WBC 0, RBC 3. Protein 31. Glucose 50. Culture with no growth to d ate Blood cultures are reported to be growing GPCs at [facility] Transferred to [facility] for further care. MRI of brain and spine carried out with limited findi ngs due to non-contrast study. Evaluated by Nephrology, acute renal failure attributed to hemodynamics. Evaluated by Dr. Bhardwaj from orthopedics: Does not think patient has ankle septic joint and does not recomme nd surgical intervention. Echocardiogram showed moderate size mobile vegetation attached to the septal tricuspid valv e leaflet, moderate tricuspid regurgitation, moderate pulmonary hypertension with mildly enl arged right ventricle. Evaluated by CTS, surgery not recommended On 10/01, extubated On 10/02, he was transferred out of the ICU. On 10/04, patient had worsening mental status and also became tachypneic. He became more hy ponatremic with worsening renal function. Bilateral moderate sized pleural effusions were n oted on chest CT scan. Bedside ultrasound with bilateral pleural effusion, R>L. Left minimal and without echogenic ity suggestive of infectious pleural effusion. Left effusion is moderate with fibrin strands concerning for complicated/infectious pleural effusion. Right pig tail chest tube placed wi th purulent drainage. Head CT scan negative On 10/05, started on hemodialysis On October 08, left chest tube was placed. Reintubated on October 11. CC: Staphylococcal sepsis, right-sided endocarditis Chart reviewed Events Overnight: Fever spike overnight on 101.4F. Noted bedside ultrasound findin g of trace bilateral pleural effusion with small loculated right pocket. Large mobile vegeta tion is noted at the tricuspid valve with areas of echolucency at the leaflet insertion.Foll ow-up echocardiogram has been requested. Scheduled Medications albuterol 6 puff Inhalation Q4H clonazePAM 1 mg Oral BID famotidine 20 mg Oral Daily gentamicin Topical Daily heparin (porcine) 5000 unit/0.5mL 5,000 Units Subcutaneous 3 times per day ipratropium 6 puff Inhalation Q4H nafcillin 2 g Intravenous Q4H nystatin 5 mL Mouth/Throat 4x Daily QUEtiapine 25 mg Oral QAM QUEtiapine 50 mg Oral QPM sodium chloride 10 mL Intravenous 2 times per day sodium citrate anticoagulant 4 % 6 mL Intracatheter Daily Continuous Infusions fentaNYL in NS 5 mcg/mL 150 mcg/hr (10/18/15 0100) propofol 60 mcg/kg/min (10/18/15 0608) sodium chloride (IV) 15 mL/hr at 10/14/15 1547 PRN Medications acetaminophen, acetaminophen OR acetaminophen, albumin human, albuterol, aluminum-magne sium hydroxide-simethicone, fzcmlzqegyFHPBK-xwyabd-rrdkkoegi oral solution, HYDROmorphone, l ip moisturizer, ondansetron OR ondansetron, pancrelipase (Vwr-Htzo-Icme)12,000 units, pr omethazine, simethicone, sodium bicarbonate, sodium chloride, white petrolatum OBJECTIVE Vital Signs: BP 134/83 mmHg | Pulse 104 | Temp(Src) 99.3 F (37.4 C) (Oral) | Resp 20 | Ht 1.702 m (5 ' 7") | Wt 68.8 kg (151 lb 10.8 oz) | BMI 23.75 kg/m2 | SpO2 100% Temp: [98.6 F (37 C)-101.4 F (38.6 C)] 99.3 F (37.4 C) (10/17 629) BP: (121-147)/(77-97) 134/83 mmHg (10/17 599) Heart Rate: [99-116] 104 (10/17 599) Resp: [16-36] 20 (10/17 599) SpO2: [97 %-100 %] 100 % (10/17 599) Weight: [68.1 kg (150 lb 2.1 oz)-68.8 kg (151 lb 10.8 oz)] 68.8 kg (151 lb 10.8 oz) (10/17 429) FiO2 : [30 %] 30 % (10/17 330) Physical Exam Vital signs have been reviewed Gen.: Intubated, on ventilatory support. Lightly sedated, responsive and follows simple com mands HEENT: Anicteric sclerae. Pupils are reactive to light. Improved appearance of nasal, oral labial mucosa. Right IJ HD catheter is unremarkable Lungs: Mechanical breath sounds Cardiovascular: RRR. No murmur Abdomen: No distention. Soft. No tenderness or palpable masses Skin: Petechial/purpuric lesions at upper and lower extremities improving; sites of prior v esicles noted at legs - scabs noted RUE PICC site is unremarkable Musculoskeletal: No inflamed looking joints DATA CBC: Lab Results Component Value Date WBC 11.38* 10/18/2015 RBC 2.91* 10/18/2015 HGB 8.3* 10/18/2015 HCT 25.7* 10/18/2015 MCV 88.3 10/18/2015 MCH 28.7 10/18/2015 MCHC 32.5 10/18/2015 RDW 52.5 10/18/2015 PLT 204 10/18/2015 MPV 7.8 10/18/2015 DIFFTYPE AUTOMATED 10/18/2015 WBC: Lab Results Component Value Date WBC 11.38* 10/18/2015 NEUTABSMAN 10.38* 10/17/2015 NEUTROABS 9.90* 10/18/2015 NEUTROMAN 86 10/17/2015 LYMPHOABS 0.84* 10/17/2015 LYMPHOMAN 7 10/17/2015 LYMPHSABS 0.51* 10/18/2015 LYMPHOPCT 4.44 10/18/2015 MONOABSMAN 0.48 10/17/2015 MONOMAN 4 10/17/2015 MONOPCT 5.61 10/18/2015 EOSINOABS 0.12 10/17/2015 EOSINOMAN 1 10/17/2015 EOSABS 0.22 10/18/2015 EOSPCT 1.97 10/18/2015 BASOSABS 0.11* 10/18/2015 BASOPCT 0.96 10/18/2015 PLTEST ADEQUATE 10/18/2015 BANDSPCT 2 10/17/2015 METAABS 0.26* 10/13/2015 METAPCT 1 10/13/2015 MYELOABS 0.17* 10/09/2015 MYELOPCT 1 10/09/2015 COMDIFF SLIDE SCANNED, AGREES WITH AUTOMATED RESULTS. 10/18/2015 CMP: Lab Results Component Value Date NA 133* 10/18/2015 K 3.6 10/18/2015 CL 100 10/18/2015 CO2 20* 10/18/2015 ANIONGAP 16 10/18/2015 GLUF 111* 10/18/2015 BUN 47* 10/18/2015 CREATININE 3.6* 10/18/2015 BCR 13 10/18/2015 CA 7.6* 10/18/2015 PROT 5.9* 10/18/2015 ALB 1.4* 10/18/2015 GLOB 3.6 10/01/2015 BILITOT 2.1* 10/18/2015 ALP 80 10/18/2015 AST 26 10/18/2015 ALT 17 10/18/2015 EGFR 21* 10/18/2015 PT/INR: Lab Results Component Value Date PROTIME 10/07/2015 POOR QUALITY SPECIMEN FROM THE LINE DRAW, CHARGES CREDITED, PATIENT REDRAWN. INR 1.1 10/15/2015 Microbiology data reviewed. 10/13 C. difficile PCR negative 10/09 C. difficile negative 10/11 HSV oral culture negative 10/05 pleural fluid culture negative 09/30 tracheal aspirate culture grew MSSA 09/30 blood cultures with no growth Radiology data: Impression 1. Stable support equipment 2. Stable patchy and nodular inflammatory infiltrates throughout all lung barry, with stab le bibasilar pleural effusions chest 1 view [[id number]] PROBLEM LIST Principal Problem: Sepsis (HCC) Active Problems: Hyposmolality and/or hyponatremia MARCEL (acute kidney injury) (HCC) Leucocytosis Thrombocytopenia (HCC) Toxic metabolic encephalopathy Acute respiratory failure with hypoxia (HCC) Heroin abuse Methamphetamine abuse Tobacco abuse Acute septic pulmonary embolism (HCC) Acute infective endocarditis Moderate protein-calorie malnutrition (HCC) ASSESSMENT & PLAN Gram-positive sepsis, MSSA tricuspid valve endocarditis -Patient has MSSA bacteremia, tricuspid valve endocarditis with septic pulmonary emboli re lated to IV drug use -Neck pain and back pain improved; noncontrast MRI of spine and brain on presentation show s no evidence of infection -No evidence of septic arthritis; evaluated by orthopedics -Blood cultures on admission here have no growth to date. PICC placed. -CT scan performed on October 08 confirmed continued pleural effusion on the left, chest tube placed and d/c'd. CXR shows stable findings. Continue nafcillin 2 g IV q4 hours. Day 17 of 42 of antibiotics -he is febrile today. Repeat blood cultures and echocardiogram requested Antibiotic associated diarrhea -Negative for C. difficile. Encephalopathy, metabolic -Appears to have improved Acute hypoxemic respiratory failure -Reintubated on 10/11. No significant change in pulmonary appearance on chest x-ray. Noted findings on bedside US MARCEL -No adjustment needed for nafcillin. Abnormal LFTs -Better Petechial/purpuric rash -Suspect ecthyma. Improving. IV drug use -Not a candidate for outpatient IV antibiotics. HIV negative. Case discussed with Dr. 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 Hospital Day: LOS: 17 days Post-Op Day: * No surgery found * Consulting Physicians Treatment Team: Consulting Physician: Chris Swann DO Consulting Physician: Renetta Buck MD Consulting Physician: Gonzalez Bhardwaj MD Surgeon: Blanca Arias MD Consulting Physician: Blanca Arias MD Admitting Provider: Carly Thomas DO SUBJECTIVE Patient Summary: The patient is a 30 y.o. male with significant history of tobacco an d drug abuse using daily heroin and methamphetamine, also on Suboxone. He initially presen latasha to [facility] for progressive weakness, lethargy, and generalized pain (most ly his chest, neck, back, knees, ankles and toes) for 7 days. According to his girlfriend, he was feeling sick and febrile for a week with poor PO intake; she also noticed that his an kles and right knee were swollen but not warm or erythematous, and he seemed to be "halluinc ating and talking to himself". Exam at OSH was significant for point tenderness at the area of the cervical spine and posi tive Kernig's sign. LP was performed to rule out meningitis. IV antibiotics started, ceftria xone 2 gm and vancomycin [address] head and C-spine x-ray performed, MRI attempted but patient decompensated and was intubated for respiratory failure and airway protection. Significant labs: Na 114 (1435 hrs), BUN 81, Crea 2.48, WBC 19.9, Hb 11.6, Plt 51, Tbili 3. 6, AST 188, ALT 155, LA 1.7. CSF: clear, colorless, WBC 0, RBC 3. Transferred to [facility] for further care. Timeline: Evaluated by Nephrology, acute renal failure attributed to hemodynamics. Evaluated by Dr. Bhardwaj from orthopedics: Does not think patient has ankle septic joint and does not re commend surgical intervention. Echocardiogram showed moderate size mobile vegetation attached to the septal tricuspid v alve leaflet, moderate tricuspid regurgitation, moderate pulmonary hypertension with mildly enlarged right ventricle. Evaluated by CTS, surgery not recommended On 10/01, extubated. MRI spine w/o evidence abscess On 10/02, he was transferred out of the ICU. 10/04-Transferred to ICU for worsening mental status, drop of Na from 122 to 117 and wors ening renal function 10/05-HD line placed, started on dialysis. Right pigtail chest tube with drainage of 1400 ml serosanguineous exudate 10/06-Dialysis session. Improved encephalopathy. Anxiety requiring high dose precedex. 10/07-Right pigtail chest catheter removed 10/08-dialysis again today, 3L removed; Cxr with bilateral effusions which appear to be a bout the same as yesterday; will repeat CT chest to evaluate further; continues to be anxiou s, c/o pain 10/09-dialysis again today, 3.5L removed, now with left pleural chest catheter placed ove rnight, immediately drained 850cc, only 50cc during the day today; intermittent fevers, tach ycardia persists; add seroquel BID 10/10--dialysis again today with anticipated 2.5L removal; L pleural chest catheter remov ed, f/u Cxr in 1 hour; if no issues post dialysis and f/u cxr will transfer to acute care be d 10/11--worsening hypoxia, tachypnea, and associated tachycardia so electively re-intubate d 10/12--restarted Levophed during dialysis today; fio2 weaned to 30%; HSV oral swab negati ve 10/13-- rested comfortably overnight, temps better, restarted tube feeds 10/14-- No acute events. HD today then attempt SBT 10/15- Hodling extubation 10/16-Holding extubation, transfused 2 units PRBC Overnight events: Lio fever to 101.4 OBJECTIVE VITAL SIGNS Temp: [98.6 F (37 C)-101.4 F (38.6 C)] 100 F (37.8 C) Heart Rate: [99-116] 109 Resp: [11-36] 19 BP: (121-147)/(77-97) 121/77 mmHg FiO2 : [30 %] 30 % Intake/Output Summary (Last 24 hours) at 10/18/15 0449 Last data filed at 10/17/15 1829 Gross per 24 hour Intake 5726.9 ml Output 3696 ml Net 2030.9 ml EXAM GEN: intubated-sedated NEURO: PERRLA, no facial asymmetry, moves all extremities well GCS: 11T HEENT: sclerae clear, nonicteric, oral mmm, dried blood noted, NECK: supple, trachea midline HEART: Sinus tachycardia, S1/S2, 2/6 systolicmurmur LUNGS: scattered rhonchi bilaterally , no wheezing, or rales, symmetric chest expansion, ev en/unlabored respirations ABD: soft, rounded, nondistended, nontender to palpation, no masses, EXTR: trace edema all extremities, no clubbing or cyanosis SKIN: diffuse purpuric palpable rash bilateral anterior lower extremities, also hand and fe et. Blisters noted within rash. Dressings to bilat elbows CDI. Bedside US: Trace bilateral pleural effusion, small loculated pocket right. Large mobile ve getation in the septal leaflet of tricuspid valve. Areas of echolucency adjacent to leaflet insertion LINES/TUBES: Right UE PICC, right IJ CVC 10/05 DATA Recent Labs Lab 10/17/15 1002 10/17/15 0335 10/16/15 0328 10/15/15 0547 10/14/15 0542 WBC 12.06* 10.13 13.71* 17.10* < > 19.40* RBC 3.12* 2.10* 2.39* 2.38* < > 2.04* HGB 8.9* 6.1* 6.9* 6.9* < > 5.8* HCT 27.7* 19.0* 21.5* 20.8* < > 17.9* MCV 88.8 90.3 89.7 87.5 < > 87.6 MCH 28.6 29.1 28.9 29.0 < > 28.2 MCHC 32.2 32.3 32.2 33.2 < > 32.2 RDW 48.6 55.1* 51.6 50.3 < > 53.8* PLT 203 186 164 156 < > 157 MPV 8.4 8.3 8.8 7.9 < > 8.6 BANDSABS 0.24* -- 0.55* 0.17 -- -- NEUTROABS -- 8.54* -- -- -- 16.89* LYMPHSABS -- 0.68* -- -- -- 1.26 MONOSABS -- 0.63 -- -- -- 0.94* BASOSABS -- 0.05 -- -- -- 0.08 EOSABS -- 0.22 -- -- -- 0.22 MORPH 1+ NORMAL PLT MORPH 1+ RBC AND PLT MORPHOLOGY APPEAR NORMAL -- NORMAL PLT MORPH < > = values in this interval not displayed. Recent Labs Lab 10/17/15 1013 10/17/15 0335 10/16/1532710/15/1535610/14/15 0409 NA -- 135 136 135 134* K -- 3.8 4.0 3.5 4.0 CL -- 101 101 99 97* CO2 -- 19* 23 20* 25 ANIONGAP -- 19 16 20 16 GLUF -- 104* 100* 149* 127* BUN -- 73* 54* 87* 67* CREATININE -- 4.7* 3.9* 5.7* 4.4* BCR -- 16 14 15 15 CA -- 7.6* 7.6* 6.8* 7.1* ALB -- 1.4* 1.5* -- 2.0* PROT -- 5.7* 5.9* -- 5.9* BILITOT 1.7* 2.0* 1.9* -- 2.7* ALT -- 16 18 -- 21 AST -- 21 25 -- 33 EGFR -- 15* 19* 12* 17* PHOS -- 5.7* 3.6 3.5 3.4 MG -- 2.1 2.1 2.3 2.4 Recent Labs Lab 10/15/15 03510/13/15 0402 10/12/15 0321 [address] 1[address] Chest Without Contrast 10/09/2015 1. Significant interval decrease in size of right pleural effusion, now small. Moderate to large left pleural effusion appears slightly decreased in size. Associated cons olidative opacity seen involving the lower lobes, likely representing pneumonia or atelectas is. 2. Essentially unchanged appearance of numerous bilateral cavitary lesions or airspace opacities 3. Wedge-shaped hypodensity in the anterior spleen, suspicious for an infarct. E lectronically signed by Ramone Abarca MD on 10/09/2015 4:42 PM Xr Chest 1 View 10/14/2015 1. Unchanged appearance of bilateral airspace and nodular/cavity opacities. 2. Unchanged at least small bilateral pleural effusions. LEM LIST Principal Problem: Sepsis (HCC) Active Problems: Hyposmolality and/or hyponatremia MARCEL (acute kidney injury) (HCC) Leucocytosis Thrombocytopenia (HCC) Toxic metabolic encephalopathy Acute respiratory failure with hypoxia (HCC) Heroin abuse Methamphetamine abuse Tobacco abuse Acute septic pulmonary embolism (HCC) Acute infective endocarditis Moderate protein-calorie malnutrition (HCC) ASSESSMENT & PLAN NEURO: Septic encephalopathy-Resolved. Will keep pt intubated until tunneled cath and renal biopsy complete CSF w/o growth from [facility] Continue seroquel for anxiety/insomnia On propofol and fentanyl for sedation CV: Hypotension with HD. Resolved. PULM: Recurrent Hypoxemic respiratory failure---Re-intubated 10/11. Daily SBT. Holding extubation Pulmonary septic embolic from MSSA tricuspid valve CT chest repeated 10/08--Right pleural effusion less s/p pigtail chest tube 10/05. Exudati ve by Lights criteria. PH, glucose not consistent with complicated infected effusion. DC'd Left pleural effusion, much improved s/p pigtail catheter placed 10/08, immediately drain ed 850cc---removed (10/10). F/U CT chest in the near future to ensure resolution of loculated effusion. US with trace bilateral pleural effusion 10/17 GI/NUTRITION: Severe malnutrition secondary to infectious process/. Pt with high residuals overnight. Reglan ordered. On trickle feeds. 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 Mild Transaminitis (resolved) with elevated bilirubin- Trending down, likely sepsis rela latasha . Hepatitis serologies and HIV negative. Continue to monitor. C/o abdominal distension/pain. Abdomen distended and tympanic. Check abdominal xray. RENAL/LYTES: MARCEL. Anuric. Transitioned to conventional HD. ATN vs C3 staph induced glomeurlonephrit is. UA with hematuria. C3 low. C4 wnl. Low C3 likely from MSSA infectious process. Urine s ent at request of community resource consultant. Will obtain renal biopsy (ordered by Dr. Vora) Hyponatremia-resolved (na 136). Cortisol and TSH wnl HD cath (temporary) placed, started on dialysis 10/05. Tunneled HD catheter placement pen alyson. ID: MSSA tricuspid valve endocarditis/Leukocytosis/febrile---. Bedside ultrasound shows tric uspic posterior leaflet involvement on RV inflow view and septal leaflet involvement seen on 4C view---Followed by ID, on nafcillin (started 10/03 plan from ID is 42 days total). Oral lesions, ? Herpetic---HSV swab NEGATIVE Repeat BC if febrile. Repeat echo, r/o valvular ring abscess HEME: Platelets stable (164K) Anemia-Multifactorial, cannot exclude hemolysis. Required blood transfusion 10/06 (2 unit s PRBC); 1 unit given 10/09, 1u 10/13. Continue to monitor. Hb 6.1 10/16. Transfused 2 units PRBCs with appropriate response to 8.9 ENDO: Monitor BS. Goal 80-180. Last 100 MUSC/SKIN: Vasculitis from IE/sepsis. Pt with purpura rash with blistering and bullae. Wound care consult ordered. Early mobility protocol PROPHYLAXIS: Stress ulcer prophylaxis: on PPI DVT prophylaxis: Heparin SC, foot pumps. (no scd's d/t skin integrity of legs) VAP bundle: chlorhexadine oral care, HOB >30 degrees Disposition: Critical care Code Status: Full Code *Please bill 30 minutes of critical care time spent evaluating the patient, reviewing the d michael and formulating a plan exclusive of all other procedures. Maegan Rod MD 10/18/2015 4:49 AM Delfino Melendez MD - 10/17/2015 5:21 PM PDTFormatting of this note might be different from the orig inal. Progress Notes by Delfino Vora MD at 10/17/151720 Author: Delfino Vora MD Service: Nephrology Author Type: Physician Filed: 10/17/151725 Date of Service: 10/17/151720 Status: Signed Bisque Brusher: Delfino Vora MD (Physician) [facility] Service: Nephrology Renal Consult Progress Note Yang Ridley [id number] Hospital Day: LOS: 16 days SUBJECTIVE Patient Summary: Patient seen and examined. Scheduled Medications albuterol 6 puff Inhalation Q4H clonazePAM 1 mg Oral BID famotidine 20 mg Oral Daily gentamicin Topical Daily heparin (porcine) 5000 unit/0.5mL 5,000 Units Subcutaneous 3 times per day ipratropium 6 puff Inhalation Q4H nafcillin 2 g Intravenous Q4H nystatin 5 mL Mouth/Throat 4x Daily QUEtiapine 25 mg Oral QAM QUEtiapine 50 mg Oral QPM sodium chloride 10 mL Intravenous 2 times per day sodium citrate anticoagulant 4 % 6 mL Intracatheter Daily Continuous Infusions fentaNYL in NS 5 mcg/mL 150 mcg/hr (10/17/15 1658) propofol 60 mcg/kg/min (10/17/15 1457) sodium chloride (IV) 15 mL/hr at 10/14/15 1547 PRN Medications acetaminophen, acetaminophen OR acetaminophen, albumin human, albuterol, aluminum-magne sium hydroxide-simethicone, dmbufrtexfXOQSK-yabeki-tjdorlsmw oral solution, HYDROmorphone, l ip moisturizer, ondansetron OR ondansetron, pancrelipase (Rih-Jtox-Zqgz)12,000 units, pr omethazine, simethicone, sodium bicarbonate, sodium chloride, white petrolatum OBJECTIVE Vital Signs: BP 130/81 mmHg | Pulse 108 | Temp(Src) 100 F (37.8 C) (Oral) | Resp 36 | Ht 1.702 m (5' 7") | Wt 68.1 kg (150 lb 2.1 oz) | BMI 23.51 kg/m2 | SpO2 99% Intake/Output Summary (Last 24 hours) at 10/17/151720 Last data filed at 10/17/15 1115 Gross per 24 hour Intake 4217 ml Output 3696 ml Net 521 ml Gen: NAD, intubated and sedated. Neck: rt ij temp catheter Pulm: CTA b/l, good air movement, no w/r/r CV: RRR, nl S1S2, no rub Abd: Soft, NT/ND, NABS Ext: 1+ edema Access: rt ij temp cath DATA Recent Labs Lab 10/17/15 0335 10/16/15 03210/15/15 03510/14/15 040 CREATININE 4.7* 3.9* 5.7* 4.4* Recent Labs Lab 10/17/15 03310/16/15 03210/15/15 03510/14/15 0409 NA 135 136 135 134* K 3.8 4.0 3.5 4.0 CL 101 101 99 97* CO2 19* 23 20* 25 BUN 73* 54* 87* 67* CA 7.6* 7.6* 6.8* 7.1* PHOS 5.7* 3.6 3.5 3.4 MG 2.1 2.1 2.3 2.4 Recent Labs Lab 10/17/15 03310/16/1532710/15/15 0357 10/14/15 0409 10/13/15 0402 10/12/15 03210/11/15 1641 ALB 1.4* 1.5* -- 2.0* 1.6* 2.0* -- ALP 69 72 -- 82 83 73 -- AST 21 25 -- 33 37 33 -- ALT 16 18 -- 21 21 18 -- INR -- -- 1.1 -- 1.1 1.2 2.4 Recent Labs Lab 10/17/15 1002 10/17/15 0335 10/16/15 0328 10/15/15 0547 WBC 12.06* 10.13 13.71* 17.10* RBC 3.12* 2.10* 2.39* 2.38* HGB 8.9* 6.1* 6.9* 6.9* HCT 27.7* 19.0* 21.5* 20.8* PLT 203 186 164 156 MCV 88.8 90.3 89.7 87.5 RDW 48.6 55.1* 51.6 50.3 Recent Labs Lab 10/15/15 0357 10/13/15 0402 10/12/15 0321 10/11/15 1641 INR 1.1 1.1 1.2 2.4 PROBLEM LIST Principal Problem: Sepsis (HCC) Active Problems: Hyposmolality and/or hyponatremia MARCEL (acute kidney injury) (HCC) Leucocytosis Thrombocytopenia (HCC) Toxic metabolic encephalopathy Acute respiratory failure with hypoxia (HCC) Heroin abuse Methamphetamine abuse Tobacco abuse Acute septic pulmonary embolism (HCC) Acute infective endocarditis Moderate protein-calorie malnutrition (HCC) ASSESSMENT & PLAN The patient is a 30 y.o. male with significant history of tobacco and drug abuse using jennifer y heroin and methamphetamine, also on Suboxone. He initially presented to [facility] for progressive weakness, lethargy, and generalized pain for the past 7 days. He noti edy that his ankles and right knee were swollen but not warm or erythematous. According to imer valverde girlfriend, he has been feeling sick and febrile for the past week with poor oral intake. LP was performed to rule out meningitis. IV antibiotics started, ceftriaxone 2 gm and vanco mycin [address] head and C-spine x-ray performed, patient decompensated and was intubat ed for respiratory failure and airway protection and admitted to the ICU. Significant labs on initial presentation : Na 114 (1435 hrs), BUN 81, Crea 2.48, Over next 12-24 hrs, his sodium abruptly improved to a peak of126 by 6 AM on 10/01, so c ounter measures were started to avoid over correction. Patient received DDAVP X2 X 2 MCG AT 4 AND 8 AM ON 10/01 and is on D5W AT 200 ML/HR. He has never been hospitalized because of low sodium. He has never been symptomatic because of low sodium. There are no herbal preparation intake; he does not have hx of liver cirrhos is. He does not have hx of CHF, hypothyroidism or adrenal insufficiency.There is no hx of ch ronic diarrhea and no N/V. ARF Differential includes, post infectious vs atn from sepsis, still no signs of renal recovery , will do a kidney biopsy (order placed) Dialyzed today with 1L uf, will aim for more uf on monday Will convert his temp catheter to PC, we are aware of his h/o iv drug abuse but desmondi rolan that dialysis is a life saving treatment, will go ahead and place a PC.(IR has been consu lted) daily weights and strict I/O's Diet should be 0.8 gm/kg protein, 1 gm PO4, 2 gm Na, and 2 gm K restricted diet. medications to be dosed for estimated eGFR Of 15 NSAIDs (including FRASER 2 inhibitors) should not be used. Magnesium and aluminum containing antacids should be avoided. Magnesium or phosphorus containing laxatives should be avoided. Code Status: Full Code Delfino Vora MD 10/17/2015 5:21 PM Usman Case MD - 10/17/2015 1:33 PM PDT Progress Notes by Usman Villatoro MD at 10/17/15 0094 Author: Usman Villatoro MD Service: Infectious Disease Author Type: Physician Filed: 10/17/15 1783 Date of Service: 10/17/150 Status: Signed Bisque Brusher: Usman Villatoro MD (Physician) [facility] Service: Infectious Disease Progress Note Hospital Day: LOS: 16 days Post-Op Day: * No surgery found * SUBJECTIVE Patient Summary: CC: Fever, chest pain and altered mental status From [employer] admission note on 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 male with significant history of tobacco and drug abuse using daily heroin and methamphetamine, also on Suboxone. He initially presented to [facility] for progressive weakness, lethargy, and ge neralized pain (mostly his chest, neck, back, knees, ankles and toes) for the past 7 days. H e noticed that his ankles and right knee were swollen but not warm or erythematous. Nessa barnett to his girlfriend, he has been feeling sick and febrile for the past week with poor PO int elisha. Yesterday, she noticed that he seemed like he was hallucinating and talking to himself. He was very weak today that she had to assist him to get into the car to go the the ED. Exam at OSH was significant for point tenderness at the area of the cervical spine and posi tive Kernig's sign. LP was performed to rule out meningitis. IV antibiotics started, ceftria xone 2 gm and vancomycin [address] head and C-spine x-ray performed, MRI attempted but patient decompensated and was intubated for respiratory failure and airway protection. Significant labs: Na 114 (1435 hrs), BUN 81, Crea 2.48, WBC 19.9, Hb 11.6, Plt 51, Tbili 3. 6, AST 188, ALT 155, LA 1.7. CSF: clear, colorless, WBC 0, RBC 3. Protein 31. Glucose 50. Culture with no growth to d ate Blood cultures are reported to be growing GPCs at [place] Transferred to [facility] for further care. MRI of brain and spine carried out with limited findi ngs due to non-contrast study. Evaluated by Nephrology, acute renal failure attributed to hemodynamics. Evaluated by Dr. Bhardwaj from orthopedics: Does not think patient has ankle septic joint and does not recomme nd surgical intervention. Echocardiogram showed moderate size mobile vegetation attached to the septal tricuspid valv e leaflet, moderate tricuspid regurgitation, moderate pulmonary hypertension with mildly enl arged right ventricle. Evaluated by CTS, surgery not recommended On 10/01, extubated On 10/02, he was transferred out of the ICU. On 10/04, patient had worsening mental status and also became tachypneic. He became more hy ponatremic with worsening renal function. Bilateral moderate sized pleural effusions were n oted on chest CT scan. Bedside ultrasound with bilateral pleural effusion, R>L. Left minimal and without echogenic ity suggestive of infectious pleural effusion. Left effusion is moderate with fibrin strands concerning for complicated/infectious pleural effusion. Right pig tail chest tube placed wi th purulent drainage. Head CT scan negative On 10/05, started on hemodialysis On October 08, left chest tube was placed. Reintubated on October 11. CC: Staphylococcal sepsis, right-sided endocarditis Chart reviewed Events Overnight: No new issues. Tmax 100.2F. Remains intubated on vent. Scheduled Medications albuterol 6 puff Inhalation Q4H clonazePAM 1 mg Oral BID famotidine 20 mg Oral Daily gentamicin Topical Daily heparin (porcine) 5000 unit/0.5mL 5,000 Units Subcutaneous 3 times per day ipratropium 6 puff Inhalation Q4H nafcillin 2 g Intravenous Q4H nystatin 5 mL Mouth/Throat 4x Daily QUEtiapine 25 mg Oral QAM QUEtiapine 50 mg Oral QPM sodium chloride 10 mL Intravenous 2 times per day sodium citrate anticoagulant 4 % 6 mL Intracatheter Daily Continuous Infusions fentaNYL in NS 5 mcg/mL 150 mcg/hr (10/17/15 0908) propofol 50 mcg/kg/min (10/17/15 1234) sodium chloride (IV) 15 mL/hr at 10/14/15 1547 PRN Medications acetaminophen, acetaminophen OR acetaminophen, albumin human, albuterol, aluminum-magne sium hydroxide-simethicone, bxgjjgjbqvTVETM-hxfuzs-jpbhlkkhz oral solution, HYDROmorphone, l ip moisturizer, ondansetron OR ondansetron, pancrelipase (Xzb-Yfyz-Nipa)12,000 units, pr omethazine, simethicone, sodium bicarbonate, sodium chloride, white petrolatum OBJECTIVE Vital Signs: BP 131/86 mmHg | Pulse 101 | Temp(Src) 98.6 F (37 C) (Oral) | Resp 20 | Ht 1.702 m (5' 7") | Wt 68.1 kg (150 lb 2.1 oz) | BMI 23.51 kg/m2 | SpO2 100% Temp: [98.6 F (37 C)-100.2 F (37.9 C)] 98.6 F (37 C) (10/16 0945) BP: (121-147)/(59-95) 131/86 mmHg (10/16 1115) Heart Rate: [99-115] 101 (10/16 1000) Resp: [11-31] 20 (10/16 1000) SpO2: [98 %-100 %] 100 % (10/16 1000) Weight: [68.1 kg (150 lb 2.1 oz)] 68.1 kg (150 lb 2.1 oz) (10/16 1115) FiO2 : [30 %] 30 % (10/16 0800) Physical Exam Vital signs have been reviewed Gen.: Intubated, on ventilatory support. Sedated HEENT: Anicteric sclerae. Pupils are reactive to light. Improved appearance of nasal, oral labial mucosa. Right IJ catheter is unremarkable Lungs: Coarse breath sounds anterolaterally Cardiovascular: RRR. No murmur Abdomen: No distention. Soft. No tenderness or palpable masses Skin: Petechial/purpuric lesions at upper and lower extremities improving along with clear vesicles noted at the legs Musculoskeletal: No inflamed looking joints DATA CBC: Lab Results Component Value Date WBC 12.06* 10/17/2015 RBC 3.12* 10/17/2015 HGB 8.9* 10/17/2015 HCT 27.7* 10/17/2015 MCV 88.8 10/17/2015 MCH 28.6 10/17/2015 MCHC 32.2 10/17/2015 RDW 48.6 10/17/2015 PLT 203 10/17/2015 MPV 8.4 10/17/2015 DIFFTYPE MANUAL 10/17/2015 WBC: Lab Results Component Value Date WBC 12.06* 10/17/2015 NEUTABSMAN 10.38* 10/17/2015 NEUTROABS 8.54* 10/17/2015 NEUTROMAN 86 10/17/2015 LYMPHOABS 0.84* 10/17/2015 LYMPHOMAN 7 10/17/2015 LYMPHSABS 0.68* 10/17/2015 LYMPHOPCT 6.71 10/17/2015 MONOABSMAN 0.48 10/17/2015 MONOMAN 4 10/17/2015 MONOPCT 6.21 10/17/2015 EOSINOABS 0.12 10/17/2015 EOSINOMAN 1 10/17/2015 EOSABS 0.22 10/17/2015 EOSPCT 2.22 10/17/2015 BASOSABS 0.05 10/17/2015 BASOPCT 0.53 10/17/2015 PLTEST ADEQUATE 10/15/2015 BANDSPCT 2 10/17/2015 METAABS 0.26* 10/13/2015 METAPCT 1 10/13/2015 MYELOABS 0.17* 10/09/2015 MYELOPCT 1 10/09/2015 COMDIFF SLIDE SCANNED, AGREES WITH AUTOMATED RESULTS. 10/14/2015 CMP: Lab Results Component Value Date NA 135 10/17/2015 K 3.8 10/17/2015 CL 101 10/17/2015 CO2 19* 10/17/2015 ANIONGAP 19 10/17/2015 GLUF 104* 10/17/2015 BUN 73* 10/17/2015 CREATININE 4.7* 10/17/2015 BCR 16 10/17/2015 CA 7.6* 10/17/2015 PROT 5.7* 10/17/2015 ALB 1.4* 10/17/2015 GLOB 3.6 10/01/2015 BILITOT 1.7* 10/17/2015 ALP 69 10/17/2015 AST 21 10/17/2015 ALT 16 10/17/2015 EGFR 15* 10/17/2015 Microbiology data reviewed. 10/13 C. difficile PCR negative 10/09 C. difficile negative 10/11 HSV oral culture negative 10/05 pleural fluid culture negative 09/30 tracheal aspirate culture grew MSSA 09/30 blood cultures with no growth Radiology data: Impression 1. Stable support equipment 2. Stable patchy and nodular inflammatory infiltrates throughout all lung barry, with stab le bibasilar pleural effusions chest 1 view [[id number]] Impression 1. Stable support equipment 2. Stable patchy and nodular inflammatory infiltrates throughout all lung barry, with stab le bibasilar pleural effusions chest 1 view [[id number]] PROBLEM LIST Principal Problem: Sepsis (HCC) Active Problems: Hyposmolality and/or hyponatremia MARCEL (acute kidney injury) (HCC) Leucocytosis Thrombocytopenia (HCC) Toxic metabolic encephalopathy Acute respiratory failure with hypoxia (HCC) Heroin abuse Methamphetamine abuse Tobacco abuse Acute septic pulmonary embolism (HCC) Acute infective endocarditis Moderate protein-calorie malnutrition (HCC) ASSESSMENT & PLAN Gram-positive sepsis, MSSA tricuspid valve endocarditis -Patient has MSSA bacteremia, tricuspid valve endocarditis with septic pulmonary emboli re lated to IV drug use -Neck pain and back pain improved; noncontrast MRI of spine and brain on presentation show s no evidence of infection -No evidence of septic arthritis; evaluated by orthopedics -Blood cultures on admission here have no growth to date. PICC placed. -CT scan performed on October 08 confirmed continued pleural effusion on the left, chest tube placed and d/c'd. CXR shows stable findings. Fevers low grade. Continue nafcillin 2 g IV q 4 hours. Day 16 of 42 of antibiotics Antibiotic associated diarrhea -Negative for C. difficile. Encephalopathy, metabolic -Appears to have improved; currently sedated Acute hypoxemic respiratory failure -Reintubated on 10/11. No significant change in pulmonary appearance on chest x-ray. MARCEL -No adjustment needed for nafcillin. Abnormal LFTs -Better Petechial/purpuric rash -Suspect ecthyma. Improving. IV drug use -Not a candidate for outpatient IV antibiotics. HIV negative. Case discussed with YAIR Jansen Code Status: Full Code USMAN VILLATORO MD 10/17/2015 onversion Moses saction, Provider Unknown - 10/17/2015 10:54 AM PDTFormatting of this note might be differen t from the original. Therapy Progress Note by Abran Parrish PT at 10/17/15 1054 Author: Abran Parrish PT Service: (none) Author Type: Physical Therapist Filed: 10/17/15 1540 Date of Service: 10/17/151053 Status: Signed Bisque Brusher: Abran Parrish PT (Physical Therapist) 10/17/15 1054 PT Last Visit PT Received On 10/17/15 (Receiving HD at this time) Requires PT Follow Up Unavailable Maegan Patten MD - 10/17/2015 6:13 AM PDT Progress Notes by Maegan Rod MD at 10/17/15612 Author: Maegan Rod MD Service: Auto Dealer Author Type: Physician Filed: 10/17/15 0622 Date of Service: 10/17/15612 Status: Signed Bisque Brusher: Maegan Rod MD (Physician) [facility] Service: Auto Dealer Progress Note Yang Ridley 30 y.o. Hospital Day: LOS: 16 days Post-Op Day: * No surgery found * Consulting Physicians Treatment Team: Consulting Physician: Chris Swann DO Consulting Physician: Renetta Buck MD Consulting Physician: Gonzalez Bhardwaj MD Surgeon: Blanca Arias MD Consulting Physician: Blanca Arias MD Admitting Provider: Carly Thomas DO SUBJECTIVE Patient Summary: The patient is a 30 y.o. male with significant history of tobacco an d drug abuse using daily heroin and methamphetamine, also on Suboxone. He initially presen latasha to [facility] for progressive weakness, lethargy, and generalized pain (most ly his chest, neck, back, knees, ankles and toes) for 7 days. According to his girlfriend, he was feeling sick and febrile for a week with poor PO intake; she also noticed that his an kles and right knee were swollen but not warm or erythematous, and he seemed to be "halluinc ating and talking to himself". Exam at OSH was significant for point tenderness at the area of the cervical spine and posi tive Kernig's sign. LP was performed to rule out meningitis. IV antibiotics started, ceftria xone 2 gm and vancomycin [address] head and C-spine x-ray performed, MRI attempted but patient decompensated and was intubated for respiratory failure and airway protection. Significant labs: Na 114 (1435 hrs), BUN 81, Crea 2.48, WBC 19.9, Hb 11.6, Plt 51, Tbili 3. 6, AST 188, ALT 155, LA 1.7. CSF: clear, colorless, WBC 0, RBC 3. Transferred to [facility] for further care. Timeline: Evaluated by Nephrology, acute renal failure attributed to hemodynamics. Evaluated by Dr. Bhardwaj from orthopedics: Does not think patient has ankle septic joint and does not re commend surgical intervention. Echocardiogram showed moderate size mobile vegetation attached to the septal tricuspid v alve leaflet, moderate tricuspid regurgitation, moderate pulmonary hypertension with mildly enlarged right ventricle. Evaluated by CTS, surgery not recommended On 10/01, extubated. MRI spine w/o evidence abscess On 10/02, he was transferred out of the ICU. 10/04-Transferred to ICU for worsening mental status, drop of Na from 122 to 117 and wors ening renal function 10/05-HD line placed, started on dialysis. Right pigtail chest tube with drainage of 1400 ml serosanguineous exudate 10/06-Dialysis session. Improved encephalopathy. Anxiety requiring high dose precedex. 10/07-Right pigtail chest catheter removed 10/08-dialysis again today, 3L removed; Cxr with bilateral effusions which appear to be a bout the same as yesterday; will repeat CT chest to evaluate further; continues to be anxiou s, c/o pain 10/09-dialysis again today, 3.5L removed, now with left pleural chest catheter placed ove rnight, immediately drained 850cc, only 50cc during the day today; intermittent fevers, tach ycardia persists; add seroquel BID 10/10--dialysis again today with anticipated 2.5L removal; L pleural chest catheter remov ed, f/u Cxr in 1 hour; if no issues post dialysis and f/u cxr will transfer to acute care be d 10/11--worsening hypoxia, tachypnea, and associated tachycardia so electively re-intubate d 10/12--restarted Levophed during dialysis today; fio2 weaned to 30%; HSV oral swab negati ve 10/13-- rested comfortably overnight, temps better, restarted tube feeds 10/14-- No acute events. HD today then attempt SBT Overnight events: No acute overnight events OBJECTIVE VITAL SIGNS Temp: [99.1 F (37.3 C)-100.3 F (37.9 C)] 99.8 F (37.7 C) Heart Rate: [104-115] 104 Resp: [11-31] 11 BP: (116-144)/(59-91) 138/90 mmHg FiO2 : [30 %] 30 % Intake/Output Summary (Last 24 hours) at 10/17/15 0613 Last data filed at 10/16/15 1700 Gross per 24 hour Intake 1356 ml Output 0 ml Net 1356 ml EXAM GEN: intubated-sedated NEURO: PERRLA, no facial asymmetry, moves all extremities well GCS: 11T HEENT: sclerae clear, nonicteric, oral mmm, dried blood noted, NECK: supple, trachea midline HEART: Sinus tachycardia, S1/S2, 2/6 systolicmurmur LUNGS: scattered rhonchi bilaterally , no wheezing, or rales, symmetric chest expansion, ev en/unlabored respirations ABD: soft, rounded, nondistended, nontender to palpation, no masses, EXTR: trace edema all extremities, no clubbing or cyanosis SKIN: diffuse purpuric palpable rash bilateral anterior lower extremities, also hand and fe et. Blisters noted within rash. Dressings to bilat elbows CDI. LINES/TUBES: Right UE PICC, right IJ CVC 10/05 DATA Recent Labs Lab 10/17/15 0335 10/16/15 0328 10/15/15 0547 10/14/15 0542 10/14/15 0409 WBC 10.13 13.71* 17.10* < > 19.40* 17.44* RBC 2.10* 2.39* 2.38* < > 2.04* 2.01* HGB 6.1* 6.9* 6.9* < > 5.8* 5.8* HCT 19.0* 21.5* 20.8* < > 17.9* 17.7* MCV 90.3 89.7 87.5 < > 87.6 88.3 MCH 29.1 28.9 29.0 < > 28.2 28.9 MCHC 32.3 32.2 33.2 < > 32.2 32.7 RDW 55.1* 51.6 50.3 < > 53.8* 53.8* PLT 186 164 156 < > 157 158 MPV 8.3 8.8 7.9 < > 8.6 8.6 BANDSABS -- 0.55* 0.17 -- -- 0.35* NEUTROABS 8.54* -- -- -- 16.89* -- LYMPHSABS 0.68* -- -- -- 1.26 -- MONOSABS 0.63 -- -- -- 0.94* -- BASOSABS 0.05 -- -- -- 0.08 -- EOSABS 0.22 -- -- -- 0.22 -- MORPH NORMAL PLT MORPH 1+ RBC AND PLT MORPHOLOGY APPEAR NORMAL -- NORMAL PLT MORPH RBC AN D PLT MORPHOLOGY APPEAR NORMAL < > = values in this interval not displayed. Recent Labs Lab 10/17/15 0335 10/16/15 0328 10/15/15 0357 10/14/15 0409 NA 135 136 135 134* K 3.8 4.0 3.5 4.0 CL 101 101 99 97* CO2 19* 23 20* 25 ANIONGAP 19 16 20 16 GLUF 104* 100* 149* 127* BUN 73* 54* 87* 67* CREATININE 4.7* 3.9* 5.7* 4.4* BCR 16 14 15 15 CA 7.6* 7.6* 6.8* 7.1* ALB 1.4* 1.5* -- 2.0* PROT 5.7* 5.9* -- 5.9* BILITOT 2.0* 1.9* -- 2.7* ALT 16 18 -- 21 AST 21 25 -- 33 EGFR 15* 19* 12* 17* PHOS 5.7* 3.6 3.5 3.4 MG 2.1 2.1 2.3 2.4 Recent Labs Lab 10/15/15 0357 10/13/15 0402 10/12/15 0[address] 1[address] Chest Without Contrast 10/09/2015 1. Significant interval decrease in size of right pleural effusion, now small. Moderate to large left pleural effusion appears slightly decreased in size. Associated cons olidative opacity seen involving the lower lobes, likely representing pneumonia or atelectas is. 2. Essentially unchanged appearance of numerous bilateral cavitary lesions or airspace opacities 3. Wedge-shaped hypodensity in the anterior spleen, suspicious for an infarct. E lectronically signed by Ramone Abarca MD on 10/09/2015 4:42 PM Xr Chest 1 View 10/14/2015 1. Unchanged appearance of bilateral airspace and nodular/cavity opacities. 2. Unchanged at least small bilateral pleural effusions. LEM LIST Principal Problem: Sepsis (HCC) Active Problems: Hyposmolality and/or hyponatremia MARCEL (acute kidney injury) (HCC) Leucocytosis Thrombocytopenia (HCC) Toxic metabolic encephalopathy Acute respiratory failure with hypoxia (HCC) Heroin abuse Methamphetamine abuse Tobacco abuse Acute septic pulmonary embolism (HCC) Acute infective endocarditis Moderate protein-calorie malnutrition (HCC) ASSESSMENT & PLAN NEURO: Septic encephalopathy-Resolving. Failed SBT (tachypnea/agitation). Re sedated. Will k eep pt intubated until tunneled cath and renal biopsy complete CSF w/o growth from [facility] Continue seroquel for anxiety/insomnia CV: Hypotension with HD. Resolved. PULM: Recurrent Hypoxemic respiratory failure---Re-intubated 10/11. Daily SBT Pulmonary septic embolic from MSSA tricuspid valve CT chest repeated 10/08--Right pleural effusion less s/p pigtail chest tube 10/05. Exudati ve by Lights criteria. PH, glucose not consistent with complicated infected effusion. DC'd Left pleural effusion, much improved s/p pigtail catheter placed 10/08, immediately drain ed 850cc---removed (10/10) GI/NUTRITION: Severe malnutrition secondary to infectious process/. Pt with high residuals overnight. Reglan ordered. Will give trickle feeds overnight and reasses tomorrow. 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 Mild Transaminitis (resolved) with elevated bilirubin- Trending down, likely sepsis rela latasha . Hepatitis serologies and HIV negative. Continue to monitor. RENAL/LYTES: MARCEL. Anuric. Transitioned to conventional HD. ATN vs C3 staph induced glomeurlonephrit is. UA with hematuria. C3 low. C4 wnl. Low C3 likely from MSSA infectious process. Urine s ent at request of community resource consultant. Will obtain renal biopsy (ordered by Dr. Vora) Hyponatremia-resolved (na 136). Cortisol and TSH wnl HD cath (temporary) placed, started on dialysis 10/05. Tunneled HD catheter placement pen alyson. ID: MSSA tricuspid valve endocarditis/Leukocytosis/febrile---. Bedside ultrasound shows tric uspic posterior leaflet involvement on RV inflow view and septal leaflet involvement seen on 4C view---Followed by ID, on nafcillin (started 10/03 plan from ID is 42 days total). Oral lesions, ? Herpetic---HSV swab NEGATIVE HEME: Platelets stable (164K) Anemia-Multifactorial, cannot exclude hemolysis. Required blood transfusion 10/06 (2 unit s PRBC); 1 unit given 10/09, 1u 10/13. Continue to monitor. Hb 6.1 today. Check LDH, haptoglobin, bilirubin. Transfuse 2 units PRBCs ENDO: Monitor BS. Goal 80-180. Last 100 MUSC/SKIN: Vasculitis from IE/sepsis. Pt with purpura rash with blistering and bullae. Wound care consult ordered. Early mobility protocol PROPHYLAXIS: Stress ulcer prophylaxis: on PPI DVT prophylaxis: Heparin SC, foot pumps. (no scd's d/t skin integrity of legs) VAP bundle: chlorhexadine oral care, HOB >30 degrees Disposition: Critical care Code Status: Full Code *Please bill 30 minutes of critical care time spent evaluating the patient, reviewing the d michael and formulating a plan exclusive of all other procedures. Maegan oRd MD 10/17/2015 6:13 AM Yoly Jones ARNP - 10/16/2015 4:01 PM PDT . Progress Notes by YAIR Eduardo at 10/16/15 1601 Author: YAIR Eduardo Service: Auto Dealer Author Type: Advanced Registered Nu rse Practitioner Filed: 10/16/15 1602 Date of Service: 10/16/15 160 Status: Signed Bisque Brusher: YAIR Eduardo (Nurse Practitioner) [facility] Service: Auto Dealer Progress Note Yang Ridley 30 y.o. Hospital Day: LOS: 15 days Post-Op Day: * No surgery found * Consulting Physicians Treatment Team: Consulting Physician: Chris Swann DO Consulting Physician: Renetta Buck MD Consulting Physician: Gonzalez Bhardwaj MD Surgeon: Blanca Arias MD Consulting Physician: Blanca Arias MD Admitting Provider: Carly Thomas DO SUBJECTIVE Patient Summary: The patient is a 30 y.o. male with significant history of tobacco an d drug abuse using daily heroin and methamphetamine, also on Suboxone. He initially presen latasha to [facility] for progressive weakness, lethargy, and generalized pain (most ly his chest, neck, back, knees, ankles and toes) for 7 days. According to his girlfriend, he was feeling sick and febrile for a week with poor PO intake; she also noticed that his an kles and right knee were swollen but not warm or erythematous, and he seemed to be "halluinc ating and talking to himself". Exam at OSH was significant for point tenderness at the area of the cervical spine and posi tive Kernig's sign. LP was performed to rule out meningitis. IV antibiotics started, ceftria xone 2 gm and vancomycin [address] head and C-spine x-ray performed, MRI attempted but patient decompensated and was intubated for respiratory failure and airway protection. Significant labs: Na 114 (1435 hrs), BUN 81, Crea 2.48, WBC 19.9, Hb 11.6, Plt 51, Tbili 3. 6, AST 188, ALT 155, LA 1.7. CSF: clear, colorless, WBC 0, RBC 3. Transferred to [facility] for further care. Timeline: Evaluated by Nephrology, acute renal failure attributed to hemodynamics. Evaluated by Dr. Bhardwaj from orthopedics: Does not think patient has ankle septic joint and does not re commend surgical intervention. Echocardiogram showed moderate size mobile vegetation attached to the septal tricuspid v alve leaflet, moderate tricuspid regurgitation, moderate pulmonary hypertension with mildly enlarged right ventricle. Evaluated by CTS, surgery not recommended On 10/01, extubated. MRI spine w/o evidence abscess On 10/02, he was transferred out of the ICU. 10/04-Transferred to ICU for worsening mental status, drop of Na from 122 to 117 and wors ening renal function 10/05-HD line placed, started on dialysis. Right pigtail chest tube with drainage of 1400 ml serosanguineous exudate 10/06-Dialysis session. Improved encephalopathy. Anxiety requiring high dose precedex. 10/07-Right pigtail chest catheter removed 10/08-dialysis again today, 3L removed; Cxr with bilateral effusions which appear to be a bout the same as yesterday; will repeat CT chest to evaluate further; continues to be anxiou s, c/o pain 10/09-dialysis again today, 3.5L removed, now with left pleural chest catheter placed ove rnight, immediately drained 850cc, only 50cc during the day today; intermittent fevers, tach ycardia persists; add seroquel BID 10/10--dialysis again today with anticipated 2.5L removal; L pleural chest catheter remov ed, f/u Cxr in 1 hour; if no issues post dialysis and f/u cxr will transfer to acute care be d 10/11--worsening hypoxia, tachypnea, and associated tachycardia so electively re-intubate d 10/12--restarted Levophed during dialysis today; fio2 weaned to 30%; HSV oral swab negati ve 10/13-- rested comfortably overnight, temps better, restarted tube feeds 10/14-- No acute events. HD today then attempt SBT Overnight events: Not tolerating tube feeds. High residuals. OBJECTIVE VITAL SIGNS Temp: [98.5 F (36.9 C)-100.4 F (38 C)] 100.3 F (37.9 C) Heart Rate: [104-121] 106 Resp: [11-22] 20 BP: (107-144)/(66-87) 135/78 mmHg FiO2 : [30 %] 30 % Intake/Output Summary (Last 24 hours) at 10/16/15 1601 Last data filed at 10/16/15 1200 Gross per 24 hour Intake 3950 ml Output 2400 ml Net 1550 ml EXAM GEN: resting comfortably, awakens and follows commands NEURO: PERRLA, no facial asymmetry, moves all extremities well GCS: 11T HEENT: sclerae clear, nonicteric, oral mmm, dried blood noted, NECK: supple, trachea midline HEART: Sinus tachycardia, S1/S2, +murmur LUNGS: scattered rhonchi bilaterally , no wheezing, or rales, symmetric chest expansion, ev en/unlabored respirations ABD: soft, rounded, nondistended, nontender to palpation, no masses, EXTR: trace edema all extremities, no clubbing or cyanosis SKIN: diffuse purpuric palpable rash bilateral anterior lower extremities, also hand and fe et. Blisters noted within rash. Dressings to bilat elbows CDI. LINES/TUBES: Right UE PICC, right IJ CVC 10/05 DATA Recent Labs Lab 10/16/15 0328 10/15/15 0547 10/14/15 1511 10/14/15 0542 10/14/15 0409 WBC 13.71* 17.10* 18.25* 19.40* 17.44* RBC 2.39* 2.38* 2.40* 2.04* 2.01* HGB 6.9* 6.9* 6.8* 5.8* 5.8* HCT 21.5* 20.8* 21.1* 17.9* 17.7* MCV 89.7 87.5 87.8 87.6 88.3 MCH 28.9 29.0 28.2 28.2 28.9 MCHC 32.2 33.2 32.2 32.2 32.7 RDW 51.6 50.3 47.7 53.8* 53.8* PLT 164 156 158 157 158 MPV 8.8 7.9 7.9 8.6 8.6 BANDSABS 0.55* 0.17 -- -- 0.35* NEUTROABS -- -- -- 16.89* -- LYMPHSABS -- -- -- 1.26 -- MONOSABS -- -- -- 0.94* -- BASOSABS -- -- -- 0.08 -- EOSABS -- -- -- 0.22 -- MORPH 1+ RBC AND PLT MORPHOLOGY APPEAR NORMAL -- NORMAL PLT MORPH RBC AND PLT MORPHOLOGY APPEAR NORMAL Recent Labs Lab 10/16/15 0328 10/15/15 0357 10/14/15 04010/13/15 040 NA 136 135 134* -- 132* K 4.0 3.5 4.0 < > 5.7* CL 101 99 97* -- 96* CO2 23 20* 25 -- 22* ANIONGAP 16 20 16 -- 20 GLUF 100* 149* 127* -- 134* BUN 54* 87* 67* -- 72* CREATININE 3.9* 5.7* 4.4* -- 5.6* BCR 14 15 15 -- 13 CA 7.6* 6.8* 7.1* -- 7.5* ALB 1.5* -- 2.0* -- 1.6* PROT 5.9* -- 5.9* -- 6.0* BILITOT 1.9* -- 2.7* -- 3.2* ALT 18 -- 21 -- 21 AST 25 -- 33 -- 37 EGFR 19* 12* 17* -- 13* PHOS 3.6 3.5 3.4 -- 6.2* MG 2.1 2.3 2.4 -- 2.4 < > = values in this interval not displayed. Recent Labs Lab 10/15/15 0357 10/13/15 04010/12/15 0321 [address] 1[address] Chest Without Contrast 10/09/2015 1. Significant interval decrease in size of right pleural effusion, now small. Moderate to large left pleural effusion appears slightly decreased in size. Associated cons olidative opacity seen involving the lower lobes, likely representing pneumonia or atelectas is. 2. Essentially unchanged appearance of numerous bilateral cavitary lesions or airspace opacities 3. Wedge-shaped hypodensity in the anterior spleen, suspicious for an infarct. E lectronically signed by Ramone Abarca MD on 10/09/2015 4:42 PM Xr Chest 1 View 10/14/2015 1. Unchanged appearance of bilateral airspace and nodular/cavity opacities. 2. Unchanged at least small bilateral pleural effusions. LEM LIST Principal Problem: Sepsis (HCC) Active Problems: Hyposmolality and/or hyponatremia MARCEL (acute kidney injury) (HCC) Leucocytosis Thrombocytopenia (HCC) Toxic metabolic encephalopathy Acute respiratory failure with hypoxia (HCC) Heroin abuse Methamphetamine abuse Tobacco abuse Acute septic pulmonary embolism (HCC) Acute infective endocarditis Moderate protein-calorie malnutrition (HCC) ASSESSMENT & PLAN NEURO: Septic encephalopathy-Resolving. Failed SBT (tachypnea/agitation). Re sedated. Will k eep pt intubated until tunneled cath and renal biopsy complete CSF w/o growth from [facility] Continue seroquel for anxiety/insomnia CV: Hypotension with HD. Resolved. PULM: Recurrent Hypoxemic respiratory failure---Re-intubated 10/11. Pt will have tunneled cath placed and renal biopsy. Will hold off on extubating until then. Pulmonary septic embolic from MSSA tricuspid valve CT chest repeated 10/08--Right pleural effusion less s/p pigtail chest tube 10/05. Exudati ve by Lights criteria. PH, glucose not consistent with complicated infected effusion. DC'd Left pleural effusion, much improved s/p pigtail catheter placed 10/08, immediately drain ed 850cc---removed (10/10) GI/NUTRITION: Severe malnutrition secondary to infectious process/. Pt with high residuals overnight. Reglan ordered. Will give trickle feeds overnight and reasses tomorrow. 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 Mild Transaminitis (resolved) with elevated bilirubin- Trending down, likely sepsis rela latasha . Hepatitis serologies and HIV negative. Continue to monitor. RENAL/LYTES: MARCEL. Anuric. Transitioned to conventional HD. ATN vs C3 staph induced glomeurlonephrit is. UA with hematuria. C3 low. C4 wnl. Low C3 likely from MSSA infectious process. Urine s ent at request of community resource consultant. Will obtain renal biopsy (ordered by Dr. Vora) Hyponatremia-resolved (na 136). Cortisol and TSH wnl HD cath (temporary) placed, started on dialysis 10/05 ID: MSSA tricuspid valve endocarditis/Leukocytosis/febrile---. Bedside ultrasound shows tric uspic posterior leaflet involvement on RV inflow view and septal leaflet involvement seen on 4C view---Followed by ID, on nafcillin (started 10/03 plan from ID is 42 days total). Oral lesions, ? Herpetic---HSV swab NEGATIVE HEME: Platelets stable (164K) Anemia-Multifactorial, cannot exclude hemolysis. Required blood transfusion 10/06 (2 unit s PRBC); 1 unit given 10/09, 1u 10/13. Continue to monitor. ENDO: Monitor BS. Goal 80-180. Last 100 MUSC/SKIN: Vasculitis from IE/sepsis. Pt with purpura rash with blistering and bullae. Wound care consult ordered. Early mobility protocol PROPHYLAXIS: Stress ulcer prophylaxis: on PPI DVT prophylaxis: Heparin SC, foot pumps. (no scd's d/t skin integrity of legs) VAP bundle: chlorhexadine oral care, HOB >30 degrees Disposition: Critical care Code Status: Full Code *Please bill 30 minutes of critical care time spent evaluating the patient, reviewing the d michael and formulating a plan exclusive of all other procedures. YAIR Eduardo 10/16/2015 4:01 PM onversion Tra nsaction, Provider Unknown - 10/16/2015 3:12 PM PDTFormatting of this note might be differe nt from the original. Nurse Progress Note by Rosamaria Hall RN at 10/16/15 151 Author: Rosamaria Hall RN Service: (none) Author Type: Registered Nurse Filed: 10/16/15 151 Date of Service: 10/16/151511 Status: Signed Bisque Brusher: Rosamaria Hall RN (Registered Nurse) Took over care of pt at 1430, Rosamaria Hall RN onver patti Transaction, Provider Unknown - 10/16/2015 11:30 AM PDT Case Management by SAMEERA Huggins at 10/16/15 1130 Author: SAMEERA Huggins Service: (none) Author Type: Fuse Assembler Filed: 10/16/15 1134 Date of Service: 10/16/151129 Status: Signed Bisque Brusher: SAMEERA Huggins (Fuse Assembler) Per request of Dr. Joseph I called Risk Management and spoke with Shelly, pt Advocate. Info rmed her of pt's need for a tunneled catheter for dialysis for at least 6 months. Informed of of concern that pt is an IV drug user. Informed that pt will be here for several weeks du e to need for IV abx. Shelly will confer with the Risk Management group and get back to us wit h their decision on how to approach family with discussion of pt's personal responsibility n ot to use drugs via tunneled catheter after d/c. Delfino Urban MD - 10/16/2015 10:50 AM PDT Progress Notes by Delfino Vora MD at 10/16/15 1050 Author: Delfino Vora MD Service: Nephrology Author Type: Physician Filed: 10/16/15 1054 Date of Service: 10/16/15 1050 Status: Signed Bisque Brusher: Delfino Vora MD (Physician) [facility] Service: Nephrology Renal Consult Progress Note Yang Keyana [id number] Hospital Day: LOS: 15 days SUBJECTIVE Patient Summary: Patient seen and examined. Intubated but awake Scheduled Medications albuterol 6 puff Inhalation Q4H clonazePAM 1 mg Oral BID famotidine 20 mg Oral Daily gentamicin Topical Daily heparin (porcine) 5000 unit/0.5mL 5,000 Units Subcutaneous 3 times per day ipratropium 6 puff Inhalation Q4H metoclopramide 10 mg Intravenous Q6H nafcillin 2 g Intravenous Q4H nystatin 5 mL Mouth/Throat 4x Daily QUEtiapine 25 mg Oral QAM QUEtiapine 50 mg Oral QPM sodium chloride 10 mL Intravenous 2 times per day sodium citrate anticoagulant 4 % 6 mL Intracatheter Daily Continuous Infusions fentaNYL in NS 5 mcg/mL 150 mcg/hr (10/16/15 0907) propofol 50 mcg/kg/min (10/16/15 1019) sodium chloride (IV) 15 mL/hr at 10/14/15 1547 PRN Medications acetaminophen, acetaminophen OR acetaminophen, albumin human, albuterol, aluminum-magne sium hydroxide-simethicone, iehhtmhelmJZZFJ-ymqkdc-atsqvhypt oral solution, HYDROmorphone, l ip moisturizer, ondansetron OR ondansetron, pancrelipase (Jze-Cgel-Vnwy)12,000 units, pr omethazine, simethicone, sodium bicarbonate, sodium chloride, white petrolatum OBJECTIVE Vital Signs: BP 122/81 mmHg | Pulse 111 | Temp(Src) 99.4 F (37.4 C) (Oral) | Resp 13 | Ht 1.702 m (5 ' 7") | Wt 67.4 kg (148 lb 9.4 oz) | BMI 23.27 kg/m2 | SpO2 100% Intake/Output Summary (Last 24 hours) at 10/16/15 1050 Last data filed at 10/16/15 0800 Gross per 24 hour Intake 3865 ml Output 2400 ml Net 1465 ml Gen: NAD, intubated Neck: Rt ij temp catheter Pulm: CTA b/l, good air movement, no w/r/r CV: RRR, nl S1S2, no rub Abd: Soft, NT/ND, NABS Ext: no c/c/e Access: rt ij Temp catheter DATA Recent Labs Lab 10/16/1532710/15/157 10/14/15 0409 10/13/15 0402 CREATININE 3.9* 5.7* 4.4* 5.6* Recent Labs Lab 10/16/15 03210/15/15 0357 10/14/15 0409 10/13/15 1813 10/13/15 0402 NA 136 135 134* -- 132* K 4.0 3.5 4.0 4.1 5.7* CL 101 99 97* -- 96* CO2 23 20* 25 -- 22* BUN 54* 87* 67* -- 72* CA 7.6* 6.8* 7.1* -- 7.5* PHOS 3.6 3.5 3.4 -- 6.2* MG 2.1 2.3 2.4 -- 2.4 Recent Labs Lab 10/16/15 0328 10/15/15 0357 10/14/15 0409 10/13/15 0402 10/12/15 0321 10/11/15 1641 ALB 1.5* -- 2.0* 1.6* 2.0* -- ALP 72 -- 82 83 73 -- AST 25 -- 33 37 33 -- ALT 18 -- 21 21 18 -- INR -- 1.1 -- 1.1 1.2 2.4 Recent Labs Lab 10/16/15 0328 10/15/15 0547 10/14/15 1511 10/14/15 0542 WBC 13.71* 17.10* 18.25* 19.40* RBC 2.39* 2.38* 2.40* 2.04* HGB 6.9* 6.9* 6.8* 5.8* HCT 21.5* 20.8* 21.1* 17.9* PLT 164 156 158 157 MCV 89.7 87.5 87.8 87.6 RDW 51.6 50.3 47.7 53.8* Recent Labs Lab 10/15/15 0357 10/13/15 0402 10/12/15 0321 10/11/15 1641 INR 1.1 1.1 1.2 2.4 PROBLEM LIST Principal Problem: Sepsis (HCC) Active Problems: Hyposmolality and/or hyponatremia MARCEL (acute kidney injury) (HCC) Leucocytosis Thrombocytopenia (HCC) Toxic metabolic encephalopathy Acute respiratory failure with hypoxia (HCC) Heroin abuse Methamphetamine abuse Tobacco abuse Acute septic pulmonary embolism (HCC) Acute infective endocarditis Moderate protein-calorie malnutrition (HCC) ASSESSMENT & PLAN The patient is a 30 y.o. male with significant history of tobacco and drug abuse using jennifer y heroin and methamphetamine, also on Suboxone. He initially presented to [facility] for progressive weakness, lethargy, and generalized pain for the past 7 days. He noti edy that his ankles and right knee were swollen but not warm or erythematous. According to h is girlfriend, he has been feeling sick and febrile for the past week with poor oral intake. LP was performed to rule out meningitis. IV antibiotics started, ceftriaxone 2 gm and vanco mycin [address] head and C-spine x-ray performed, patient decompensated and was intubat ed for respiratory failure and airway protection and admitted to the ICU. Significant labs on initial presentation : Na 114 (1435 hrs), BUN 81, Crea 2.48, Over next 12-24 hrs, his sodium abruptly improved to a peak of126 by 6 AM on 10/01, so c ounter measures were started to avoid over correction. Patient received DDAVP X2 X 2 MCG AT 4 AND 8 AM ON 10/01 and is on D5W AT 200 ML/HR. He has never been hospitalized because of low sodium. He has never been symptomatic because of low sodium. There are no herbal preparation intake; he does not have hx of liver cirrhos is. He does not have hx of CHF, hypothyroidism or adrenal insufficiency.There is no hx of ch ronic diarrhea and no N/V. ARF Differential includes, post infectious vs atn from sepsis, still no signs of renal recovery , will do a kidney biopsy (order placed) Will hold off dialysis today Will convert his temp catheter to PC, we are aware of his h/o iv drug abuse but considerin g that dialysis is a life saving treatment, will go ahead and place a PC.(IR has been consul latasha) daily weights and strict I/O's Diet should be 0.8 gm/kg protein, 1 gm PO4, 2 gm Na, and 2 gm K restricted diet. medications to be dosed for estimated eGFR Of 15 NSAIDs (including FRASER 2 inhibitors) should not be used. Magnesium and aluminum containing antacids should be avoided. Magnesium or phosphorus containing laxatives should be avoided. Code Status: Full Code Delfino Vora MD 10/16/2015 10:50 AM Usman Case MD - 10/16/2015 7:40 AM PDT Progress Notes by Usman Villatoro MD at 10/16/15 7704 Author: Usman Villatoro MD Service: Infectious Disease Author Type: Physician Filed: 10/16/15 0956 Date of Service: 10/16/15 0740 Status: Signed Bisque Brusher: Usman Villatoro MD (Physician) [facility] Service: Infectious Disease Progress Note Hospital Day: LOS: 15 days Post-Op Day: * No surgery found * SUBJECTIVE Patient Summary: CC: Fever, chest pain and altered mental status From [employer] admission note on 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 male with significant history of tobacco and drug abuse using daily heroin and methamphetamine, also on Suboxone. He initially presented to [facility] for progressive weakness, lethargy, and ge neralized pain (mostly his chest, neck, back, knees, ankles and toes) for the past 7 days. H e noticed that his ankles and right knee were swollen but not warm or erythematous. Accordin g to his girlfriend, he has been feeling sick and febrile for the past week with poor PO int elisha. Yesterday, she noticed that he seemed like he was hallucinating and talking to himself. He was very weak today that she had to assist him to get into the car to go the the ED. Exam at OSH was significant for point tenderness at the area of the cervical spine and posi tive Kernig's sign. LP was performed to rule out meningitis. IV antibiotics started, ceftria xone 2 gm and vancomycin [address] head and C-spine x-ray performed, MRI attempted but patient decompensated and was intubated for respiratory failure and airway protection. Significant labs: Na 114 (1435 hrs), BUN 81, Crea 2.48, WBC 19.9, Hb 11.6, Plt 51, Tbili 3. 6, AST 188, ALT 155, LA 1.7. CSF: clear, colorless, WBC 0, RBC 3. Protein 31. Glucose 50. Culture with no growth to d ate Blood cultures are reported to be growing GPCs at [facility] Transferred to [facility] for further care. MRI of brain and spine carried out with limited findi ngs due to non-contrast study. Evaluated by Nephrology, acute renal failure attributed to hemodynamics. Evaluated by Dr. Bhardwaj from orthopedics: Does not think patient has ankle septic joint and does not recomme nd surgical intervention. Echocardiogram showed moderate size mobile vegetation attached to the septal tricuspid valv e leaflet, moderate tricuspid regurgitation, moderate pulmonary hypertension with mildly enl arged right ventricle. Evaluated by CTS, surgery not recommended On 10/01, extubated On 10/02, he was transferred out of the ICU. On 10/04, patient had worsening mental status and also became tachypneic. He became more hy ponatremic with worsening renal function. Bilateral moderate sized pleural effusions were n oted on chest CT scan. Bedside ultrasound with bilateral pleural effusion, R>L. Left minimal and without echogenic ity suggestive of infectious pleural effusion. Left effusion is moderate with fibrin strands concerning for complicated/infectious pleural effusion. Right pig tail chest tube placed wi th purulent drainage. Head CT scan negative On 10/05, started on hemodialysis On October 08, left chest tube was placed. Reintubated on October 11. CC: Staphylococcal sepsis, right-sided endocarditis Chart reviewed Events Overnight: Low grade temps, Tmax 100.4F. Intubated, sedated. No ROS from pat ient. Scheduled Medications albuterol 6 puff Inhalation Q4H clonazePAM 1 mg Oral BID famotidine 20 mg Oral Daily gentamicin Topical Daily heparin (porcine) 5000 unit/0.5mL 5,000 Units Subcutaneous 3 times per day ipratropium 6 puff Inhalation Q4H nafcillin 2 g Intravenous Q4H nystatin 5 mL Mouth/Throat 4x Daily QUEtiapine 25 mg Oral QAM QUEtiapine 50 mg Oral QPM sodium chloride 10 mL Intravenous 2 times per day sodium citrate anticoagulant 4 % 6 mL Intracatheter Daily Continuous Infusions fentaNYL in NS 5 mcg/mL 150 mcg/hr (10/16/15 0012) propofol 50 mcg/kg/min (10/16/15 0330) sodium chloride (IV) 15 mL/hr at 10/14/15 1547 PRN Medications acetaminophen, acetaminophen OR acetaminophen, albumin human, albuterol, aluminum-magne sium hydroxide-simethicone, kzgeqhfskeARQAV-bxiofl-wocyqfzek oral solution, HYDROmorphone, l ip moisturizer, metoclopramide OR metoclopramide, ondansetron OR ondansetron, pancre lipase (Rga-Siyg-Hlyc)12,000 units, promethazine, simethicone, sodium bicarbonate, sodium ch loride, white petrolatum OBJECTIVE Vital Signs: BP 125/77 mmHg | Pulse 105 | Temp(Src) 100 F (37.8 C) (Oral) | Resp 19 | Ht 1.702 m (5' 7") | Wt 67.4 kg (148 lb 9.4 oz) | BMI 23.27 kg/m2 | SpO2 100% Temp: [98.1 F (36.7 C)-100.4 F (38 C)] 100 F (37.8 C) (10/15 0000) BP: (105-132)/(64-87) 125/77 mmHg (10/15 0500) Heart Rate: [105-122] 105 (10/15 0500) Resp: [14-35] 19 (10/15 0500) SpO2: [91 %-100 %] 100 % (10/15 0500) Weight: [67.3 kg (148 lb 5.9 oz)-68.2 kg (150 lb 5.7 oz)] 67.4 kg (148 lb 9.4 oz) (10/14 1 702) FiO2 : [30 %] 30 % (10/15 0400) Physical Exam Vital signs have been reviewed Gen.: Intubated, on ventilatory support. Sedated HEENT: Anicteric sclerae. Pupils are reactive to light. Improved appearance of nasal, oral labial mucosa. Right IJ catheter is unremarkable Lungs: Coarse breath sounds anterolaterally Cardiovascular: Slightly tachycardic, regular. No murmur Abdomen: No distention. Soft. No tenderness or palpable masses Skin: Petechial/purpuric lesions at upper and lower extremities improving. Clear vesicles n oted at the legs Musculoskeletal: No inflamed looking joints DATA CBC: Lab Results Component Value Date WBC 13.71* 10/16/2015 RBC 2.39* 10/16/2015 HGB 6.9* 10/16/2015 HCT 21.5* 10/16/2015 MCV 89.7 10/16/2015 MCH 28.9 10/16/2015 MCHC 32.2 10/16/2015 RDW 51.6 10/16/2015 PLT 164 10/16/2015 MPV 8.8 10/16/2015 DIFFTYPE MANUAL 10/16/2015 WBC: Lab Results Component Value Date WBC 13.71* 10/16/2015 NEUTABSMAN 11.79* 10/16/2015 NEUTROABS 16.89* 10/14/2015 NEUTROMAN 86 10/16/2015 LYMPHOABS 0.27* 10/16/2015 LYMPHOMAN 2 10/16/2015 LYMPHSABS 1.26 10/14/2015 LYMPHOPCT 6.48 10/14/2015 MONOABSMAN 0.96* 10/16/2015 MONOMAN 7 10/16/2015 MONOPCT 4.86 10/14/2015 EOSINOABS 0.14 10/16/2015 EOSINOMAN 1 10/16/2015 EOSABS 0.22 10/14/2015 EOSPCT 1.15 10/14/2015 BASOSABS 0.08 10/14/2015 BASOPCT 0.42 10/14/2015 PLTEST ADEQUATE 10/15/2015 BANDSPCT 4 10/16/2015 METAABS 0.26* 10/13/2015 METAPCT 1 10/13/2015 MYELOABS 0.17* 10/09/2015 MYELOPCT 1 10/09/2015 COMDIFF SLIDE SCANNED, AGREES WITH AUTOMATED RESULTS. 10/14/2015 CMP: Lab Results Component Value Date NA 136 10/16/2015 K 4.0 10/16/2015 CL 101 10/16/2015 CO2 23 10/16/2015 ANIONGAP 16 10/16/2015 GLUF 100* 10/16/2015 BUN 54* 10/16/2015 CREATININE 3.9* 10/16/2015 BCR 14 10/16/2015 CA 7.6* 10/16/2015 PROT 5.9* 10/16/2015 ALB 1.5* 10/16/2015 GLOB 3.6 10/01/2015 BILITOT 1.9* 10/16/2015 ALP 72 10/16/2015 AST 25 10/16/2015 ALT 18 10/16/2015 EGFR 19* 10/16/2015 U/A: Lab Results Component Value Date CLARITYU TURBID 10/14/2015 LEUKOCYTESUR MODERATE* 10/14/2015 NITRITE NEGATIVE 10/14/2015 UROBILINOGEN NORMAL 10/14/2015 UPRO 100* 10/14/2015 PHUR 5.0 10/14/2015 BLOODU MODERATE* 10/14/2015 KETONES TRACE* 10/14/2015 BILIRUBINUR NEGATIVE 10/14/2015 GLUCOSEU 50* 10/14/2015 ABG: Lab Results Component Value Date POCPH 7.450 10/12/2015 POCPCO 33* 10/12/2015 POCPO2 137* 10/12/2015 POCHCO 23 10/12/2015 POCTCO2 24 10/12/2015 POCBD 1 10/12/2015 POCSO2 99* 10/12/2015 POCCMT Tidal Volume = 530 10/12/2015 Microbiology data reviewed. 10/13 C. difficile PCR negative 10/09 C. difficile negative 10/11 HSV oral culture negative 10/05 pleural fluid culture negative 09/30 tracheal aspirate culture grew MSSA 09/30 blood cultures with no growth Radiology data: Unchanged appearance of bilateral airspace and nodular/cavity opacities. 2. Unchanged at least small bilateral pleural effusions. chest 1 view [[id number]] PROBLEM LIST Principal Problem: Sepsis (HCC) Active Problems: Hyposmolality and/or hyponatremia MARCEL (acute kidney injury) (HCC) Leucocytosis Thrombocytopenia (HCC) Toxic metabolic encephalopathy Acute respiratory failure with hypoxia (HCC) Heroin abuse Methamphetamine abuse Tobacco abuse Acute septic pulmonary embolism (HCC) Acute infective endocarditis Moderate protein-calorie malnutrition (HCC) ASSESSMENT & PLAN Gram-positive sepsis, MSSA tricuspid valve endocarditis -Patient has MSSA bacteremia, tricuspid valve endocarditis with septic pulmonary emboli re lated to IV drug use -Neck pain and back pain improved; noncontrast MRI of spine and brain on presentation show s no evidence of infection -No evidence of septic arthritis; evaluated by orthopedics -Blood cultures on admission here have no growth to date. PICC placed. -CT scan performed on October 08 confirmed continued pleural effusion on the left, appreciate chest tube placement. Fevers have improved. Continue nafcillin 2 g IV q4 hours. Day 15 of 4 2 of antibiotics Antibiotic associated diarrhea -Negative for C. difficile. Encephalopathy, metabolic -Appears to have improved; currently sedated Acute hypoxemic respiratory failure -Reintubated on 10/11. No significant change in pulmonary appearance on chest x-ray. MARCEL -No adjustment needed for nafcillin. Abnormal LFTs -Better Petechial/purpuric rash -Suspect ecthyma. Slightly better today. IV drug use -Not a candidate for outpatient IV antibiotics. HIV negative. Case discussed with Yoly Houchin, EGG TRAYER Code Status: Full Code USMAN VILLATORO MD 10/16/2015 Naga Melendez si, MD - 10/15/2015 3:27 PM PDT Progress Notes by Delfino Vora MD at 10/15/15 1527 Author: Delfino Vora MD Service: Nephrology Author Type: Physician Filed: 10/15/15 1535 Date of Service: 10/15/15 1527 Status: Signed Bisque Brusher: Delfino Vora MD (Physician) [facility] Service: Nephrology Renal Consult Progress Note Yang Ridley [id number] Hospital Day: LOS: 14 days SUBJECTIVE Patient Summary: Patient seen and examined. Still intubated, but awake and responds to com mands. Scheduled Medications albuterol 6 puff Inhalation Q4H clonazePAM 1 mg Oral BID famotidine 20 mg Oral Daily gentamicin Topical Daily heparin (porcine) 5000 unit/0.5mL 5,000 Units Subcutaneous 3 times per day ipratropium 6 puff Inhalation Q4H nafcillin 2 g Intravenous Q4H nystatin 5 mL Mouth/Throat 4x Daily QUEtiapine 25 mg Oral QAM QUEtiapine 50 mg Oral QPM sodium chloride 10 mL Intravenous 2 times per day sodium citrate anticoagulant 4 % 6 mL Intracatheter Daily Continuous Infusions fentaNYL in NS 5 mcg/mL 150 mcg/hr (10/15/15 0815) propofol 40 mcg/kg/min (10/15/15 1236) sodium chloride (IV) 15 mL/hr at 10/14/15 1547 PRN Medications acetaminophen, acetaminophen OR acetaminophen, albumin human, albuterol, aluminum-magne sium hydroxide-simethicone, ioeudokrgkMPKWZ-eayleq-mtwkggvys oral solution, HYDROmorphone, l ip moisturizer, ondansetron OR ondansetron, pancrelipase (Ltd-Broz-Pxdt)12,000 units, pr omethazine, simethicone, sodium bicarbonate, sodium chloride, white petrolatum OBJECTIVE Vital Signs: BP 108/73 mmHg | Pulse 117 | Temp(Src) 98.1 F (36.7 C) (Oral) | Resp 20 | Ht 1.702 m (5 ' 7") | Wt 68.2 kg (150 lb 5.7 oz) | BMI 23.54 kg/m2 | SpO2 99% Intake/Output Summary (Last 24 hours) at 10/15/15 1527 Last data filed at 10/15/15 0800 Gross per 24 hour Intake 3012 ml Output 500 ml Net 2512 ml Gen: NAD,intubated Neck: ij temp catheter present Pulm: CTA b/l, good air movement, no w/r/r CV: RRR, nl S1S2, no rub Abd: Soft, NT/ND, NABS Ext: trace edema Access: rt ij temp catheter present DATA Recent Labs Lab 10/15/1535610/14/15 0409 10/13/15 0402 10/12/15 0321 CREATININE 5.7* 4.4* 5.6* 4.0* Recent Labs Lab 10/15/15 03510/14/15 0409 10/13/15 1813 10/13/15 0402 10/12/15 0321 NA 135 134* -- 132* 134* K 3.5 4.0 4.1 5.7* 4.1 CL 99 97* -- 96* 98* CO2 20* 25 -- 22* 26 BUN 87* 67* -- 72* 43* CA 6.8* 7.1* -- 7.5* 7.1* PHOS 3.5 3.4 -- 6.2* 3.6 MG 2.3 2.4 -- 2.4 2.4 Recent Labs Lab 10/15/1535610/14/15 0409 10/13/15 0402 10/12/15 0321 10/11/15 1641 10/11/15 0454 ALB -- 2.0* 1.6* 2.0* -- -- 1.6* ALP -- 82 83 73 -- -- 72 AST -- 33 37 33 -- -- 26 ALT -- 21 21 18 -- -- 19 INR 1.1 -- 1.1 1.2 2.4 < > -- < > = values in this interval not displayed. Recent Labs Lab 10/15/15 0547 10/14/15 1511 10/14/15 0542 10/14/15 0409 WBC 17.10* 18.25* 19.40* 17.44* RBC 2.38* 2.40* 2.04* 2.01* HGB 6.9* 6.8* 5.8* 5.8* HCT 20.8* 21.1* 17.9* 17.7* PLT 156 158 157 158 MCV 87.5 87.8 87.6 88.3 RDW 50.3 47.7 53.8* 53.8* Recent Labs Lab 10/15/15 0357 10/13/15 0402 10/12/15 0321 10/11/15 1641 INR 1.1 1.1 1.2 2.4 PROBLEM LIST Principal Problem: Sepsis (HCC) Active Problems: Hyposmolality and/or hyponatremia MARCEL (acute kidney injury) (HCC) Leucocytosis Thrombocytopenia (HCC) Toxic metabolic encephalopathy Acute respiratory failure with hypoxia (HCC) Heroin abuse Methamphetamine abuse Tobacco abuse Acute septic pulmonary embolism (HCC) Acute infective endocarditis Moderate protein-calorie malnutrition (HCC) ASSESSMENT & PLAN The patient is a 30 y.o. male with significant history of tobacco and drug abuse using jennifer y heroin and methamphetamine, also on Suboxone. He initially presented to [facility] for progressive weakness, lethargy, and generalized pain for the past 7 days. He noti edy that his ankles and right knee were swollen but not warm or erythematous. According to h is girlfriend, he has been feeling sick and febrile for the past week with poor oral intake. LP was performed to rule out meningitis. IV antibiotics started, ceftriaxone 2 gm and vanco mycin [address] head and C-spine x-ray performed, patient decompensated and was intubat ed for respiratory failure and airway protection and admitted to the ICU. Significant labs on initial presentation : Na 114 (1435 hrs), BUN 81, Crea 2.48, Over next 12-24 hrs, his sodium abruptly improved to a peak of126 by 6 AM on 10/01, so c ounter measures were started to avoid over correction. Patient received DDAVP X2 X 2 MCG AT 4 AND 8 AM ON 10/01 and is on D5W AT 200 ML/HR. He has never been hospitalized because of low sodium. He has never been symptomatic because of low sodium. There are no herbal preparation intake; he does not have hx of liver cirrhos is. He does not have hx of CHF, hypothyroidism or adrenal insufficiency.There is no hx of ch ronic diarrhea and no N/V. ARF Differential includes, post infectious vs atn from sepsis, still no signs of renal recovery , will hold of on biopsy for now Will do regular dialysis today, urine lytes reviewed. Might need to convert his temp catheter to PC once he is more stable if his renal function does not improve. daily weights and strict I/O's Diet should be 0.8 gm/kg protein, 1 gm PO4, 2 gm Na, and 2 gm K restricted diet. medications to be dosed for estimated eGFR Of 15 NSAIDs (including FRASER 2 inhibitors) should not be used. Magnesium and aluminum containing antacids should be avoided. Magnesium or phosphorus containing laxatives should be avoided. Code Status: Full Code Delfino Vora MD 10/15/2015 3:27 PM onversion Transaction, Provider Unknown - 10/15/2015 3:14 PM PDTFormatting of this note might be dif ferent from the original. Progress Notes by Ana Garnett RD, CD at 10/15/15 7773 Author: Ana Garnett RD, CD Service: (none) Author Type: Registered Dietitian Filed: 10/15/15 3450 Date of Service: 10/15/151513 Status: Signed Bisque Brusher: Ana Garnett RD, CD (Registered Dietitian) 10/15/15 4593 Subjective Timepoint Follow up (high-risk) Pt c/o Pt remains intubated and sedated. May attempt to extubate after HD today. Pt has not been tolerating TF at goal rate. Per RN, pt had gastric residuals in the 400-450 mL range o vernight. Fluid / Beverage Intake Oral Fluids Amount NPO Food Intake Amount of Food NPO Enteral Nutrition Intake Access OG tube. Rate/Solution Currently receiving trickle feeds only of Novasource Renal at 10 mL/hr. Previ ously had a goal rate of 50 mL/hr. Feeding tube flush Free water flushes 30 mL q 4 hours. Parenteral Nutrition Intake Rate/Solution Propofol is running at 15.4 mL/hr which provides approximately 407 kcal/day. On IV fluids of NS at 15 mL/hr. Nutrition-Focused Physical Findings Body Language 2+ bilateral lower extremity edema and dependent edema in the upper extremiti es reported - improving. Digestive System (Mouth to Rectum) Pt has been stooling regularly. Per RN, gastric residual this AM was bile in appearance and was only about 50 mL. Anthropometrics Weight change Wt is down 0.9 kg from admit wt. Fluid retention likely continues to mask los s of LBM as I/Os indicate that pt is approximately 4.7 L fluid positive. WIll continue to mo nitor trends. Biochemical data, medical tests, and procedures reviewed Biochemical data, medical tests, and procedures reviewed BG has been controlled in the 100s . BUN 87 (H), Cr 5.7 (H) - on HD per nephrology. Electrolytes are WNL. Recommendations Recommended energy needs Continue trickle feeds of Novasource Renal at 10 mL/hr. If pt sneha ins intubated and TF advancement is indicated, recommend changing TF to Peptamen AF with goa l rate of 70 mL/hr to optimize tolerance and to better meet pt's estimated kcal/protein requ irements with propofol running. Assuming 20-hour/day continuous delivery, this will provide 1680 kcal, 106 g protein, 1400 mL total volume, and 1131 mL free water. Overall, TF plus Pro pofol will provide 2087 kcal and 106 g protein which supplies 30 kcal/kg and 1.5 g protein/k g based on admit wt. If pt is able to be extubated, placement of a small bore NG tube for EN support would be ideal as pt's intake has been chronically very inadequate since admit. If placed, will f/u to provide further TF goals. Nutritional Risk Nutritional risk High Follow up date 10/18/[address], CD, CNSC 10/15/2015 Yoly Segura ARNP - 10/15/2015 2:53 PM PDT Progress Notes by YAIR Eduardo at 10/15/15 1867 Author: YAIR Eduardo Service: Auto Dealer Author Type: Advanced Registered Nu rse Practitioner Filed: 10/15/15 5942 Date of Service: 10/15/151452 Status: Signed Bisque Brusher: YAIR Eduardo (Nurse Practitioner) [facility] Service: Auto Dealer Progress Note Yang Ridley 30 y.o. Hospital Day: LOS: 14 days Post-Op Day: * No surgery found * Consulting Physicians Treatment Team: Consulting Physician: Chris Swann DO Consulting Physician: Renetta Buck MD Consulting Physician: Gonzalez Bhardwaj MD Surgeon: Blanca Arias MD Consulting Physician: Blanca Arias MD Admitting Provider: Carly Thomas DO SUBJECTIVE Patient Summary: The patient is a 30 y.o. male with significant history of tobacco an d drug abuse using daily heroin and methamphetamine, also on Suboxone. He initially presen latasha to [facility] for progressive weakness, lethargy, and generalized pain (most ly his chest, neck, back, knees, ankles and toes) for 7 days. According to his girlfriend, he was feeling sick and febrile for a week with poor PO intake; she also noticed that his an kles and right knee were swollen but not warm or erythematous, and he seemed to be "halluinc ating and talking to himself". Exam at OSH was significant for point tenderness at the area of the cervical spine and posi tive Kernig's sign. LP was performed to rule out meningitis. IV antibiotics started, ceftria xone 2 gm and vancomycin [address] head and C-spine x-ray performed, MRI attempted but patient decompensated and was intubated for respiratory failure and airway protection. Significant labs: Na 114 (1435 hrs), BUN 81, Crea 2.48, WBC 19.9, Hb 11.6, Plt 51, Tbili 3. 6, AST 188, ALT 155, LA 1.7. CSF: clear, colorless, WBC 0, RBC 3. Transferred to [facility] for further care. Timeline: Evaluated by Nephrology, acute renal failure attributed to hemodynamics. Evaluated by Dr. Bhardwaj from orthopedics: Does not think patient has ankle septic joint and does not re commend surgical intervention. Echocardiogram showed moderate size mobile vegetation attached to the septal tricuspid v alve leaflet, moderate tricuspid regurgitation, moderate pulmonary hypertension with mildly enlarged right ventricle. Evaluated by CTS, surgery not recommended On 10/01, extubated. MRI spine w/o evidence abscess On 10/02, he was transferred out of the ICU. 10/04-Transferred to ICU for worsening mental status, drop of Na from 122 to 117 and wors ening renal function 10/05-HD line placed, started on dialysis. Right pigtail chest tube with drainage of 1400 ml serosanguineous exudate 10/06-Dialysis session. Improved encephalopathy. Anxiety requiring high dose precedex. 10/07-Right pigtail chest catheter removed 10/08-dialysis again today, 3L removed; Cxr with bilateral effusions which appear to be a bout the same as yesterday; will repeat CT chest to evaluate further; continues to be anxiou s, c/o pain 10/09-dialysis again today, 3.5L removed, now with left pleural chest catheter placed ove rnight, immediately drained 850cc, only 50cc during the day today; intermittent fevers, tach ycardia persists; add seroquel BID 10/10--dialysis again today with anticipated 2.5L removal; L pleural chest catheter remov ed, f/u Cxr in 1 hour; if no issues post dialysis and f/u cxr will transfer to acute care be d 10/11--worsening hypoxia, tachypnea, and associated tachycardia so electively re-intubate d 10/12--restarted Levophed during dialysis today; fio2 weaned to 30%; HSV oral swab negati ve 10/13-- rested comfortably overnight, temps better, restarted tube feeds Overnight events: No acute events. HD today then attempt SBT OBJECTIVE VITAL SIGNS Temp: [98.1 F (36.7 C)-100.4 F (38 C)] 98.1 F (36.7 C) Heart Rate: [108-121] 115 Resp: [14-26] 21 BP: (105-127)/(59-77) 114/69 mmHg FiO2 : [30 %] 30 % Intake/Output Summary (Last 24 hours) at 10/15/15 1453 Last data filed at 10/15/15 0800 Gross per 24 hour Intake 3012 ml Output 500 ml Net 2512 ml EXAM GEN: resting comfortably, awakens and follows commands NEURO: PERRLA, no facial asymmetry, moves all extremities well GCS: 11T HEENT: sclerae clear, nonicteric, oral mmm, dried blood noted, ? Herpetic type lesions (HSV swab neg) NECK: supple, trachea midline HEART: Sinus tachycardia, S1/S2, +murmur LUNGS: scattered rhonchi bilaterally , no wheezing, or rales, symmetric chest expansion, ev en/unlabored respirations ABD: soft, nondistended, nontender to palpation, no masses, EXTR: trace edema all extremities, no clubbing or cyanosis SKIN: diffuse purpuric palpable rash bilateral anterior lower extremities, also hand and fe et. Blisters noted within rash. LINES/TUBES: Right UE PICC, right IJ CVC 10/05 DATA Recent Labs Lab 10/15/15 0547 10/14/15 1511 10/14/15 0542 10/14/15 0409 10/13/15 0402 WBC 17.10* 18.25* 19.40* 17.44* 26.11* RBC 2.38* 2.40* 2.04* 2.01* 2.62* HGB 6.9* 6.8* 5.8* 5.8* 7.3* HCT 20.8* 21.1* 17.9* 17.7* 22.7* MCV 87.5 87.8 87.6 88.3 86.5 MCH 29.0 28.2 28.2 28.9 28.0 MCHC 33.2 32.2 32.2 32.7 32.4 RDW 50.3 47.7 53.8* 53.8* 51.2 PLT 156 158 157 158 163 MPV 7.9 7.9 8.6 8.6 9.4 BANDSABS 0.17 -- -- 0.35* 0.78* NEUTROABS -- -- 16.89* -- -- LYMPHSABS -- -- 1.26 -- -- MONOSABS -- -- 0.94* -- -- BASOSABS -- -- 0.08 -- -- EOSABS -- -- 0.22 -- -- MORPH RBC AND PLT MORPHOLOGY APPEAR NORMAL -- NORMAL PLT MORPH RBC AND PLT MORPHOLOGY AMIRAH EAR NORMAL 2+ Recent Labs Lab 10/15/15 0357 10/14/15 0409 10/13/15 1813 10/13/15 0402 10/12/15 0321 NA 135 134* -- 132* 134* K 3.5 4.0 4.1 5.7* 4.1 CL 99 97* -- 96* 98* CO2 20* 25 -- 22* 26 ANIONGAP 20 16 -- 20 14 GLUF 149* 127* -- 134* 175* BUN 87* 67* -- 72* 43* CREATININE 5.7* 4.4* -- 5.6* 4.0* BCR 15 15 -- 13 11 CA 6.8* 7.1* -- 7.5* 7.1* ALB -- 2.0* -- 1.6* 2.0* PROT -- 5.9* -- 6.0* 5.8* BILITOT -- 2.7* -- 3.2* 4.4* ALT -- 21 -- 21 18 AST -- 33 -- 37 33 EGFR 12* 17* -- 13* 19* PHOS 3.5 3.4 -- 6.2* 3.6 MG 2.3 2.4 -- 2.4 2.4 Recent Labs Lab 10/15/15 0357 10/13/15 0402 10/12/15 0321 [address] 1[address] Chest Without Contrast 10/09/2015 1. Significant interval decrease in size of right pleural effusion, now small. Moderate to large left pleural effusion appears slightly decreased in size. Associated cons olidative opacity seen involving the lower lobes, likely representing pneumonia or atelectas is. 2. Essentially unchanged appearance of numerous bilateral cavitary lesions or airspace opacities 3. Wedge-shaped hypodensity in the anterior spleen, suspicious for an infarct. E lectronically signed by Ramone Abarca MD on 10/09/2015 4:42 PM Xr Chest 1 View 10/14/2015 1. Unchanged appearance of bilateral airspace and nodular/cavity opacities. 2. Unchanged at least small bilateral pleural effusions. LEM LIST Principal Problem: Sepsis (HCC) Active Problems: Hyposmolality and/or hyponatremia MARCEL (acute kidney injury) (HCC) Leucocytosis Thrombocytopenia (HCC) Toxic metabolic encephalopathy Acute respiratory failure with hypoxia (HCC) Heroin abuse Methamphetamine abuse Tobacco abuse Acute septic pulmonary embolism (HCC) Acute infective endocarditis Moderate protein-calorie malnutrition (HCC) ASSESSMENT & PLAN NEURO: Septic encephalopathy-Resolving. Failed SBT (tachypnea/agitation). Re sedated. Cont w ith daily attempts CSF w/o growth from [facility] Continue seroquel for anxiety/insomnia CV: Hypotension with HD. Resolved. PULM: Recurrent Hypoxemic respiratory failure---Re-intubated 10/11. Plan for HD 10/14 and possib le SBT/trial of extubation following. Pulmonary septic embolic from MSSA tricuspid valve CT chest repeated 10/08--Right pleural effusion less s/p pigtail chest tube 10/05. Exudati ve by Lights criteria. PH, glucose not consistent with complicated infected effusion. DC'd Left pleural effusion, much improved s/p pigtail catheter placed 10/08, immediately drain ed 850cc---removed (10/10) GI/NUTRITION: Severe malnutrition secondary to infectious process/ Appreciate tube feed rec's from di etician Mild Transaminitis (resolved) with elevated bilirubin- Trending down, likely sepsis rela latasha . Hepatitis serologies and HIV negative. Continue to monitor. RENAL/LYTES: MARCEL. Anuric. Transitioned to conventional HD. ATN vs C3 staph induced glomeurlonephrit is. UA with hematuria. C3 low. C4 wnl. Low C3 likely from MSSA infectious process, but juan carlos l biopsy unlikely to alter management. Urine sent at request of community resource consultant Hyponatremia-resolving (na 135). Cortisol and TSH wnl HD placed, started on dialysis 10/05 ID: MSSA tricuspid valve endocarditis/Leukocytosis/febrile---. Bedside ultrasound shows tric uspic posterior leaflet involvement on RV inflow view and septal leaflet involvement seen on 4C view---Followed by ID, on nafcillin (started 10/03) Oral lesions, ? Herpetic---HSV swab NEGATIVE HEME: Platelets stable (156K) Anemia-Multifactorial, cannot exclude hemolysis. Required blood transfusion 10/06 (2 unit s PRBC); 1 unit given 10/09, 1u 10/13. Continue to monitor. ENDO: Monitor BS. Goal 80-180. Last 149 MUSC/SKIN: Vasculitis from IE/sepsis. Pt with purpura rash with blistering and bullae. Wound care consult ordered. Early mobility protocol PROPHYLAXIS: Stress ulcer prophylaxis: on PPI DVT prophylaxis: Heparin SC, foot pumps. (no scd's d/t skin integrity of legs) VAP bundle: chlorhexadine oral care, HOB >30 degrees Disposition: Critical care Code Status: Full Code *Please bill 35 minutes of critical care time spent evaluating the patient, reviewing the d michael and formulating a plan exclusive of all other procedures. YAIR Eduardo 10/15/2015 2:53 PM onversion Tra nsaction, Provider Unknown - 10/15/2015 10:43 AM PDTFormatting of this note might be differe nt from the original. Nurse Progress Note by Jensen Schneider RN at 10/15/15 1043 Author: Jensen Schneider RN Service: (none) Author Type: Registered Nurse Filed: 10/15/15 1045 Date of Service: 10/15/15 1043 Status: Signed Bisque Brusher: Jensen Schneider RN (Registered Nurse) C-diff results are negative. Contact Enteric Isolation discontinued per Dr. Jake SCHNEIDER RN onver patti Transaction, Provider Unknown - 10/15/2015 10:26 AM PDT Case Management by SAMEERA Huggins at 10/15/15 1026 Author: SAMEERA Huggins Service: (none) Author Type: Fuse Assembler Filed: 10/15/15 1032 Date of Service: 10/15/15 1026 Status: Signed Bisque Brusher: SAMEERA Huggins (Fuse Assembler) Attended morning rounds. Pt re-intubated 2 days ago. On dialysis. Pt refused PT today. Pt has endocarditis. Possible extubation today. Placement will be difficult. onver patti Transaction, Provider Unknown - 10/15/2015 9:17 AM PDT Therapy Progress Note by Omid Menjivar PT at 10/15/15916 Author: Omid Menjivar PT Service: (none) Author Type: Physical Therapist Filed: 10/15/15 1003 Date of Service: 10/15/15916 Status: Signed Bisque Brusher: Omid Menjivar PT (Physical Therapist) 10/15/15916 PT Last Visit PT Received On 10/15/15 Reason for Treatment Deconditioning Requires PT Follow Up Yes Follow up PT Only? Yes Assistance Required 2 person Precautions Other Precautions high fall risk Other Comments Comments pt. remains intubated at this time, but pt. awake. RN reports pt. will have dialy sis this morning so this would be a good time to work with the pt. Attempted to get pt. up and sit EOB but pt. wouldn't. Then attempted to have pt. complete bed exercises and pt. wo uld just look at therapist for a minute or two and then close his eyes. PROM performed for BLEs, pt attempted to help on RLE hip flexoin for approx 2 reps, but other then that wouldn' t assist. pt. supine in bed with call light in reach at end of session. Cognition Overall Cognitive Status JEANETTE Orientation Level JEANETTE Comments wouldn't follow simple command such as bend hip Therapeutic Exercises Therapeutic Exercises PROM Right;PROM Left PROM Right Entire LE PROM Left Entire LE PROM Comments x 10 each, pt. did assist on RLE hip flexoin for 2 reps Modalities Modalities Other therapy Other Therapy ed. on importance of movements Activity Tolerance Activity Tolerance Treatment limited secondary to medical complications Nurse Made Aware yes Safety Devices Safety Devices in Place (call light in reach) Restraints Initially in Place No Plan Treatment/Interventions Continue per Primary PT POC Progress Slow progress, medical status limitations Recommendation Recommendations Defer Recommendation Comments Will be able to make more accurate recommendations when pt is extub ated. Chris Dinh DO - 10/15/2015 6:24 AM PDTFormatting of this note might be different from the gregory del angel. Progress Notes by Chris Swann DO at 10/15/1524 Author: Chris Swann DO Service: (none) Author Type: Physician Filed: 10/15/15 0807 Date of Service: 10/15/15623 Status: Signed Bisque Brusher: Chris Swann DO (Physician) [facility] Service: Infectious Disease Progress Note Hospital Day: LOS: 14 days Post-Op Day: * No surgery found * SUBJECTIVE Patient Summary: CC: Fever, chest pain and altered mental status From Auto Dealer's admission note on 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 male with significant history of tobacco and drug abuse using daily heroin and methamphetamine, also on Suboxone. He initially presented to [facility] for progressive weakness, lethargy, and ge neralized pain (mostly his chest, neck, back, knees, ankles and toes) for the past 7 days. H e noticed that his ankles and right knee were swollen but not warm or erythematous. Accordin g to his girlfriend, he has been feeling sick and febrile for the past week with poor PO int elisha. Yesterday, she noticed that he seemed like he was hallucinating and talking to himself. He was very weak today that she had to assist him to get into the car to go the the ED. Exam at OSH was significant for point tenderness at the area of the cervical spine and posi tive Kernig's sign. LP was performed to rule out meningitis. IV antibiotics started, ceftria xone 2 gm and vancomycin [address] head and C-spine x-ray performed, MRI attempted but patient decompensated and was intubated for respiratory failure and airway protection. Significant labs: Na 114 (1435 hrs), BUN 81, Crea 2.48, WBC 19.9, Hb 11.6, Plt 51, Tbili 3. 6, AST 188, ALT 155, LA 1.7. CSF: clear, colorless, WBC 0, RBC 3. Protein 31. Glucose 50. Culture with no growth to d ate Blood cultures are reported to be growing GPCs at [facility] Transferred to [facility] for further care. MRI of brain and spine carried out with limited findi ngs due to non-contrast study. Evaluated by Nephrology, acute renal failure attributed to hemodynamics. Evaluated by Dr. Bhardwaj from orthopedics: Does not think patient has ankle septic joint and does not recomme nd surgical intervention. Echocardiogram showed moderate size mobile vegetation attached to the septal tricuspid valv e leaflet, moderate tricuspid regurgitation, moderate pulmonary hypertension with mildly enl arged right ventricle. Evaluated by CTS, surgery not recommended On 10/01, extubated On 10/02, he was transferred out of the ICU. On 10/04, patient had worsening mental status and also became tachypneic. He became more hy ponatremic with worsening renal function. Bilateral moderate sized pleural effusions were n oted on chest CT scan. Bedside ultrasound with bilateral pleural effusion, R>L. Left minimal and without echogenic ity suggestive of infectious pleural effusion. Left effusion is moderate with fibrin strands concerning for complicated/infectious pleural effusion. Right pig tail chest tube placed wi th purulent drainage. Head CT scan negative On 10/05, started on hemodialysis On October 08, left chest tube was placed. Reintubated on October 11. CC: Staphylococcal sepsis, right-sided endocarditis Chart reviewed: No new events. Subjective The patient is currently on sedation holiday. He was awake, and was able to deny any pain o r shortness of breath. He is having some abdominal cramps. He had about 15 episodes of diarr hea yesterday, only about 4 overnight. ROS No fevers, chills or sweats. No nausea, vomiting or diarrhea. No rashes or pruritis. Scheduled Medications albuterol 6 puff Inhalation Q4H clonazePAM 1 mg Oral BID famotidine 20 mg Oral Daily gentamicin Topical Daily ipratropium 6 puff Inhalation Q4H mirtazapine 15 mg Oral Nightly nafcillin 2 g Intravenous Q4H nystatin 5 mL Mouth/Throat 4x Daily QUEtiapine 25 mg Oral QAM QUEtiapine 50 mg Oral QPM sodium chloride 10 mL Intravenous 2 times per day sodium citrate anticoagulant 4 % 6 mL Intracatheter Daily Continuous Infusions fentaNYL in NS 5 mcg/mL 150 mcg/hr (10/15/15 0134) propofol 40 mcg/kg/min (10/15/15 0218) sodium chloride (IV) 15 mL/hr at 10/14/15 1547 PRN Medications acetaminophen, acetaminophen OR acetaminophen, albumin human, albuterol, aluminum-magne sium hydroxide-simethicone, mjsobfohiaOUZKE-hdxtar-vsnensilf oral solution, HYDROmorphone, l ip moisturizer, ondansetron OR ondansetron, pancrelipase (Uuz-Kupf-Zkve)12,000 units, pr omethazine, simethicone, sodium bicarbonate, sodium chloride, white petrolatum OBJECTIVE Vital Signs: BP 118/77 mmHg | Pulse 111 | Temp(Src) 99.6 F (37.6 C) (Axillary) | Resp 21 | Ht 1.702 m (5' 7") | Wt 64.3 kg (141 lb 12.1 oz) | BMI 22.20 kg/m2 | SpO2 99% Temp: [99.6 F (37.6 C)-101.3 F (38.5 C)] 99.6 F (37.6 C) (10/14 0400) BP: (106-130)/(57-77) 118/77 mmHg (10/14 050) Heart Rate: [108-123] 111 (10/14 050) Resp: [17-39] 21 (10/14 050) SpO2: [98 %-100 %] 99 % (10/14 050) Height: [170.2 cm (5' 7")] 170.2 cm (5' 7") (10/13 1201) FiO2 : [30 %] 30 % (10/14 0349) Physical Exam Exam: Const: Vitals reviewed. Intubated, but awake and alert Skin: Numerous hyperemic skin lesions with central ecchymosis consistent with ecthyma, grad ually improving. Much less confluent on the feet. ENT: Endotracheal tube is in place Lungs: CTAB, no rales or wheezes Heart: RRR, no murmur Abd: soft, mild diffuse tenderness, + bowel sounds Musculoskeletal: No gross deformity or active arthritis DATA CBC: Lab Results Component Value Date WBC 17.10* 10/15/2015 RBC 2.38* 10/15/2015 HGB 6.9* 10/15/2015 HCT 20.8* 10/15/2015 MCV 87.5 10/15/2015 MCH 29.0 10/15/2015 MCHC 33.2 10/15/2015 RDW 50.3 10/15/2015 PLT 156 10/15/2015 MPV 7.9 10/15/2015 DIFFTYPE PENDING 10/15/2015 WBC: Lab Results Component Value Date WBC 17.10* 10/15/2015 NEUTABSMAN 14.30* 10/14/2015 NEUTROABS 16.89* 10/14/2015 NEUTROMAN 82 10/14/2015 LYMPHOABS 1.05 10/14/2015 LYMPHOMAN 6 10/14/2015 LYMPHSABS 1.26 10/14/2015 LYMPHOPCT 6.48 10/14/2015 MONOABSMAN 1.57* 10/14/2015 MONOMAN 9 10/14/2015 MONOPCT 4.86 10/14/2015 EOSINOABS 0.17 10/14/2015 EOSINOMAN 1 10/14/2015 EOSABS 0.22 10/14/2015 EOSPCT 1.15 10/14/2015 BASOSABS 0.08 10/14/2015 BASOPCT 0.42 10/14/2015 PLTEST ADEQUATE 10/14/2015 BANDSPCT 2 10/14/2015 METAABS 0.26* 10/13/2015 METAPCT 1 10/13/2015 MYELOABS 0.17* 10/09/2015 MYELOPCT 1 10/09/2015 COMDIFF SLIDE SCANNED, AGREES WITH AUTOMATED RESULTS. 10/14/2015 CMP: Lab Results Component Value Date NA 135 10/15/2015 K 3.5 10/15/2015 CL 99 10/15/2015 CO2 20* 10/15/2015 ANIONGAP 20 10/15/2015 GLUF 149* 10/15/2015 BUN 87* 10/15/2015 CREATININE 5.7* 10/15/2015 BCR 15 10/15/2015 CA 6.8* 10/15/2015 PROT 5.9* 10/14/2015 ALB 2.0* 10/14/2015 GLOB 3.6 10/01/2015 BILITOT 2.7* 10/14/2015 ALP 82 10/14/2015 AST 33 10/14/2015 ALT 21 10/14/2015 EGFR 12* 10/15/2015 Micro: No new culture data. Stool negative for C. difficile. PROBLEM LIST Principal Problem: Sepsis (HCC) Active Problems: Hyposmolality and/or hyponatremia MARCEL (acute kidney injury) (HCC) Leucocytosis Thrombocytopenia (HCC) Toxic metabolic encephalopathy Acute respiratory failure with hypoxia (HCC) Heroin abuse Methamphetamine abuse Tobacco abuse Acute septic pulmonary embolism (HCC) Acute infective endocarditis Moderate protein-calorie malnutrition (HCC) ASSESSMENT & PLAN Gram-positive sepsis, MSSA tricuspid valve endocarditis -Patient has MSSA bacteremia, tricuspid valve endocarditis with septic pulmonary emboli re lated to IV drug use -Neck pain and back pain improved; noncontrast MRI of spine and brain on presentation show s no evidence of infection -No evidence of septic arthritis; evaluated by orthopedics -Blood cultures on admission here have no growth to date. PICC placed. Central line sedrick pina -CT scan performed on October 08 confirmed continued pleural effusion on the left, appreciate chest tube placement. Fevers have improved. Continue nafcillin 2 g IV q4 hours. Antibiotic associated diarrhea -Negative for C. difficile. This appears to be slowing down but he continues to have abdom inal tenderness. Maintain contact enteric isolation for now. Encephalopathy, metabolic -Appears to be improving, we will continue to monitor. Acute hypoxemic respiratory failure -Reintubated on 10/11. No significant change in pulmonary appearance on chest x-ray. Appear s to be doing better. MARCEL -No adjustment needed for nafcillin. Abnormal LFTs -Resolved. Petechial/purpuric rash -Suspect ecthyma. Slightly better today. IV drug use -Not a candidate for outpatient IV antibiotics. HIV negative. Dr. Villatoro will assume Infectious Diseases followup on Monday10/16/15. Code Status: Full Code CHRIS SWANN DO 10/15/2015 Yoly Jones A RNP - 10/14/2015 12:48 PM PDT Progress Notes by YAIR Eduardo at 10/14/15 1243 Author: YAIR Eduardo Service: Auto Dealer Author Type: Advanced Registered Nu rse Practitioner Filed: 10/14/15 1559 Date of Service: 10/14/15 3890 Status: Signed Bisque Brusher: YAIR Eduardo (Nurse Practitioner) [facility] Service: Auto Dealer Progress Note Yang Keyana 30 y.o. Hospital Day: LOS: 13 days Post-Op Day: * No surgery found * Consulting Physicians Treatment Team: Consulting Physician: Chris Swann DO Consulting Physician: Renetta Buck MD Consulting Physician: Gonzalez Bhardwaj MD Surgeon: Blanca Arias MD Consulting Physician: Blanca Arias MD Admitting Provider: Carly Thomas DO SUBJECTIVE Patient Summary: The patient is a 30 y.o. male with significant history of tobacco an d drug abuse using daily heroin and methamphetamine, also on Suboxone. He initially presen latasha to [facility] for progressive weakness, lethargy, and generalized pain (most ly his chest, neck, back, knees, ankles and toes) for 7 days. According to his girlfriend, he was feeling sick and febrile for a week with poor PO intake; she also noticed that his an kles and right knee were swollen but not warm or erythematous, and he seemed to be "halluinc ating and talking to himself". Exam at OSH was significant for point tenderness at the area of the cervical spine and posi tive Kernig's sign. LP was performed to rule out meningitis. IV antibiotics started, ceftria xone 2 gm and vancomycin [address] head and C-spine x-ray performed, MRI attempted but patient decompensated and was intubated for respiratory failure and airway protection. Significant labs: Na 114 (1435 hrs), BUN 81, Crea 2.48, WBC 19.9, Hb 11.6, Plt 51, Tbili 3. 6, AST 188, ALT 155, LA 1.7. CSF: clear, colorless, WBC 0, RBC 3. Transferred to [facility] for further care. Timeline: Evaluated by Nephrology, acute renal failure attributed to hemodynamics. Evaluated by Dr. Bhardwaj from orthopedics: Does not think patient has ankle septic joint and does not recom mend surgical intervention. Echocardiogram showed moderate size mobile vegetation attached to the septal tricuspid valv e leaflet, moderate tricuspid regurgitation, moderate pulmonary hypertension with mildly enl arged right ventricle. Evaluated by CTS, surgery not recommended On 10/01, extubated. MRI spine w/o evidence abscess On 10/02, he was transferred out of the ICU. 10/04-Transferred to ICU for worsening mental status, drop of Na from 122 to 117 and worseni ng renal function 10/05-HD line placed, started on dialysis. Right pigtail chest tube with drainage of 1400 ml serosanguineous exudate 10/06-Dialysis session. Improved encephalopathy. Anxiety requiring high dose precedex. 10/07-Right pigtail chest catheter removed 10/08-dialysis again today, 3L removed; Cxr with bilateral effusions which appear to be abou t the same as yesterday; will repeat CT chest to evaluate further; continues to be anxious, c/o pain 10/09-dialysis again today, 3.5L removed, now with left pleural chest catheter placed overni ght, immediately drained 850cc, only 50cc during the day today; intermittent fevers, tachyca rdia persists; add seroquel BID 10/10--dialysis again today with anticipated 2.5L removal; L pleural chest catheter removed, f/u Cxr in 1 hour; if no issues post dialysis and f/u cxr will transfer to acute care bed 10/11--worsening hypoxia, tachypnea, and associated tachycardia so electively re-intubated 10/12--restarted Levophed during dialysis today; fio2 weaned to 30%; HSV oral swab negative Overnight events: rested comfortably overnight, temps better, restarted tube feeds OBJECTIVE VITAL SIGNS Temp: [99.2 F (37.3 C)-101.3 F (38.5 C)] 100.7 F (38.2 C) Heart Rate: [113-124] 122 Resp: [13-39] 24 BP: (106-132)/(57-84) 115/67 mmHg FiO2 : [30 %-35 %] 35 % Intake/Output Summary (Last 24 hours) at 10/14/15 1248 Last data filed at 10/14/15 1000 Gross per 24 hour Intake 4992 ml Output 4815 ml Net 177 ml EXAM GEN: resting comfortably, awakens and follows commands NEURO: PERRLA, no facial asymmetry, moves all extremities well GCS: 11T HEENT: sclerae clear, nonicteric, oral mmm, dried blood noted, ? Herpetic lesions NECK: supple, trachea midline HEART: Sinus tachycardia, S1/S2, +murmur LUNGS: scattered rhonchi bilaterally , no wheezing, or rales, symmetric chest expansion, L abored and shallow respirations ABD: soft, nondistended, nontender to palpation, no masses, no hepatosplenomegaly EXTR: edema all extremities, no clubbing or cyanosis SKIN: diffuse purpuric palpable rash bilateral anterior lower extremities, also hand and fe et. LINES/TUBES: Right UE PICC, right IJ CVC 10/05 DATA Recent Labs Lab 10/14/15 0542 10/14/15 04010/13/1540110/12/15 0321 WBC 19.40* 17.44* 26.11* 22.95* RBC 2.04* 2.01* 2.62* 2.63* HGB 5.8* 5.8* 7.3* 7.3* HCT 17.9* 17.7* 22.7* 22.6* MCV 87.6 88.3 86.5 85.8 MCH 28.2 28.9 28.0 27.7 MCHC 32.2 32.7 32.4 32.3 RDW 53.8* 53.8* 51.2 50.3 PLT 157 158 163 127* MPV 8.6 8.6 9.4 8.8 BANDSABS -- 0.35* 0.78* 0.46* NEUTROABS 16.89* -- -- -- LYMPHSABS 1.26 -- -- -- MONOSABS 0.94* -- -- -- BASOSABS 0.08 -- -- -- EOSABS 0.22 -- -- -- MORPH NORMAL PLT MORPH RBC AND PLT MORPHOLOGY APPEAR NORMAL 2+ RBC AND PLT MORPHOLOGY APPEA R NORMAL Recent Labs Lab 10/14/15 0409 10/13/15 1813 10/13/1540110/12/15 0321 NA 134* -- 132* 134* K 4.0 4.1 5.7* 4.1 CL 97* -- 96* 98* CO2 25 -- 22* 26 ANIONGAP 16 -- 20 14 GLUF 127* -- 134* 175* BUN 67* -- 72* 43* CREATININE 4.4* -- 5.6* 4.0* BCR 15 -- 13 11 CA 7.1* -- 7.5* 7.1* ALB 2.0* -- 1.6* 2.0* PROT 5.9* -- 6.0* 5.8* BILITOT 2.7* -- 3.2* 4.4* ALT 21 -- 21 18 AST 33 -- 37 33 EGFR 17* -- 13* 19* PHOS 3.4 -- 6.2* 3.6 MG 2.4 -- 2.4 2.4 Recent Labs Lab 10/13/15 0402 10/12/15 0321 10/11/15 1641 INR 1.1 1.2 2.4 IMAGING Xr Abdomen 1 View 10/11/2015 Nonspecific, nonobstructive bowel gas pattern. No acute osseous abnormality. N o pneumatosis. No portal venous gas. No evidence of pneumoperitoneum. Ct Chest Without Contrast 10/09/2015 1. Significant interval decrease in size of right pleural effusion, now small. Moderate to large left pleural effusion appears slightly decreased in size. Associated cons olidative opacity seen involving the lower lobes, likely representing pneumonia or atelectas is. 2. Essentially unchanged appearance of numerous bilateral cavitary lesions or airspace opacities 3. Wedge-shaped hypodensity in the anterior spleen, suspicious for an infarct. E lectronically signed by Ramone Abarca MD on 10/09/2015 4:42 PM PROBLEM LIST Principal Problem: Sepsis (HCC) Active Problems: Hyposmolality and/or hyponatremia MARCEL (acute kidney injury) (HCC) Leucocytosis Thrombocytopenia (HCC) Toxic metabolic encephalopathy Acute respiratory failure with hypoxia (HCC) Heroin abuse Methamphetamine abuse Tobacco abuse Acute septic pulmonary embolism (HCC) Acute infective endocarditis Moderate protein-calorie malnutrition (HCC) ASSESSMENT & PLAN NEURO: Septic encephalopathy-Resolving. Failed SBT (tachypnea/agitation). Re sedated. Cont w ith daily attempts CSF w/o growth from [facility] Continue remeron for anxiety/insomnia CV: Hypotension with HD. No plan for HD today. No need for levo at this time. PULM: Recurrent Hypoxemic respiratory failure---Re-intubated 10/11; ventilator mgmt and wean, a bg and cxr in a.m reviewed. Plan for HD 10/14 and possible SBT/trial of extubation at that t estelita. . Pulmonary septic embolic from MSSA tricuspid valve CT chest repeated 10/08--Right pleural effusion less s/p pigtail chest tube 10/05. Exudati ve by Lights criteria. PH, glucose not consistent with complicated infected effusion. DC'd Left pleural effusion, much improved s/p pigtail catheter placed 10/08, immediately drain ed 850cc---removed (10/10) GI/NUTRITION: Severe malnutrition secondary to infectious process/ Appreciate tube feed rec's from di etician Mild Transaminitis (resolved) with elevated bilirubin- Trending down, likely sepsis rela latasha . Hepatitis serologies and HIV negative. Continue to monitor. RENAL/LYTES: MARCEL. Anuric. Transitioned to conventional HD. ATN vs C3 staph induced glomeurlonephrit is. UA with hematuria. C3 low. C4 wnl. Low C3 likely from MSSA infectious process, but juan carlos l biopsy unlikely to alter management. Urine sent at request of community resource consultant Hyponatremia-resolving (na 134). Cortisol and TSH wnl HD placed, started on dialysis 10/05 ID: MSSA tricuspid valve endocarditis/Leukocytosis/febrile---. Bedside ultrasound shows tric uspic posterior leaflet involvement on RV inflow view and septal leaflet involvement seen on 4C view---Followed by ID, on nafcillin Oral lesions, ? Herpetic---HSV swab NEGATIVE HEME: Platelets stable (157K) Anemia-Multifactorial, cannot exclude hemolysis. Required blood transfusion 10/06 (2 unit s PRBC); 1 unit given 10/09, 1u 10/13. Continue to monitor ENDO: Monitor BS. Goal 80-180. Last 127 MUSC/SKIN: Vasculitis from IE/sepsis early PROPHYLAXIS: Stress ulcer prophylaxis: on PPI DVT prophylaxis: Heparin SC VAP bundle: N/A Disposition: Critical care plan as above Code Status: Full Code *Please bill 35 minutes of critical care time spent evaluating the patient, reviewing the d michael and formulating a plan exclusive of all other procedures. YAIR Eduardo 10/14/2015 12:48 PM onversion Tra nsaction, Provider Unknown - 10/14/2015 12:38 PM PDTFormatting of this note might be differe nt from the original. Case Management by SAMEERA Bower at 10/14/15 1621 Author: SAMEERA Bower Service: (none) Author Type: Fuse Assembler Filed: 10/14/15 0540 Date of Service: 10/14/15 1234 Status: Signed Bisque Brusher: SAMEERA Bower (Fuse Assembler) CM attended morning rounds. Pt is 30 years old and was admitted for Sepsis. No family was p resent. Pt remains intubated. CM will monitor Physical Therapy's recommendations and assist in establishing a safe discharge plan. CM will begin discussions with family about rehab opt ions once it becomes evident what type of rehab pt can tolerate. Eder VERDESW Delfino Urban MD - 10/14/2015 11:29 AM PDT Progress Notes by Delfino Vora MD at 10/14/15 1129 Author: Delfino Vora MD Service: Nephrology Author Type: Physician Filed: 10/14/15 1141 Date of Service: 10/14/15 1129 Status: Signed Bisque Brusher: Delfino Vora MD (Physician) [facility] Service: Nephrology Renal Consult Progress Note Yang Ridley [id number] Hospital Day: LOS: 13 days SUBJECTIVE Patient Summary: Patient seen and examined. Intubated, but responding to commands. Scheduled Medications clonazePAM 1 mg Oral BID famotidine 20 mg Oral Daily gentamicin Topical Daily mirtazapine 15 mg Oral Nightly nafcillin 2 g Intravenous Q4H nystatin 5 mL Mouth/Throat 4x Daily QUEtiapine 25 mg Oral QAM QUEtiapine 50 mg Oral QPM sodium chloride 10 mL Intravenous 2 times per day sodium citrate anticoagulant 4 % 6 mL Intracatheter Daily Continuous Infusions fentaNYL in NS 5 mcg/mL 100 mcg/hr (10/14/15 0337) propofol 20 mcg/kg/min (10/14/15 0642) sodium chloride (IV) PRN Medications acetaminophen, acetaminophen OR acetaminophen, albumin human, albuterol, aluminum-magne sium hydroxide-simethicone, eqftrwkqcbZQYPR-ztyanr-vqkibgajv oral solution, HYDROmorphone, l ip moisturizer, ondansetron OR ondansetron, pancrelipase (Qvf-Jfqd-Dzup)12,000 units, pr omethazine, simethicone, sodium bicarbonate, sodium chloride, white petrolatum OBJECTIVE Vital Signs: BP 116/64 mmHg | Pulse 121 | Temp(Src) 101.3 F (38.5 C) (Oral) | Resp 30 | Ht 1.702 m ( 5' 7") | Wt 64.3 kg (141 lb 12.1 oz) | BMI 22.20 kg/m2 | SpO2 100% Intake/Output Summary (Last 24 hours) at 10/14/15 1129 Last data filed at 10/14/15 1000 Gross per 24 hour Intake 5012 ml Output 4815 ml Net 197 ml Gen: NAD, A&Ox3, intubated Neck: rt ij temp catheter present Pulm: CTA b/l, good air movement, no w/r/r CV: RRR, nl S1S2, no rub Abd: Soft, NT/ND, NABS Ext: 1+ edema Access: rt ij torres catheter DATA Recent Labs Lab 10/14/15 04010/13/15 0402 10/12/15 0321 10/11/15 0454 CREATININE 4.4* 5.6* 4.0* 4.8* Recent Labs Lab 10/14/15 0409 10/13/15 1813 10/13/15 0402 10/12/15 0321 10/11/15 0454 NA 134* -- 132* 134* 130* K 4.0 4.1 5.7* 4.1 4.4 CL 97* -- 96* 98* 95* CO2 25 -- 22* 26 27 BUN 67* -- 72* 43* 46* CA 7.1* -- 7.5* 7.1* 7.1* PHOS 3.4 -- 6.2* 3.6 5.3* MG 2.4 -- 2.4 2.4 2.6* Recent Labs Lab 10/14/15 0409 10/13/15 0402 10/12/15 0321 10/11/15 1641 10/11/15 0853 10/11/15 0454 ALB 2.0* 1.6* 2.0* -- -- 1.6* ALP 82 83 73 -- -- 72 AST 33 37 33 -- -- 26 ALT 21 21 18 -- -- 19 INR -- 1.1 1.2 2.4 2.1 -- Recent Labs Lab 10/14/15 0542 10/14/15 0409 10/13/15 0402 10/12/15 0321 WBC 19.40* 17.44* 26.11* 22.95* RBC 2.04* 2.01* 2.62* 2.63* HGB 5.8* 5.8* 7.3* 7.3* HCT 17.9* 17.7* 22.7* 22.6* PLT 157 158 163 127* MCV 87.6 88.3 86.5 85.8 RDW 53.8* 53.8* 51.2 50.3 Recent Labs Lab 10/13/15 0402 10/12/15 0321 10/11/15 1641 10/11/15 0853 INR 1.1 1.2 2.4 2.1 PROBLEM LIST Principal Problem: Sepsis (HCC) Active Problems: Hyposmolality and/or hyponatremia MARCEL (acute kidney injury) (HCC) Leucocytosis Thrombocytopenia (HCC) Toxic metabolic encephalopathy Acute respiratory failure with hypoxia (HCC) Heroin abuse Methamphetamine abuse Tobacco abuse Acute septic pulmonary embolism (HCC) Acute infective endocarditis Moderate protein-calorie malnutrition (HCC) ASSESSMENT & PLAN The patient is a 30 y.o. male with significant history of tobacco and drug abuse using jennifer y heroin and methamphetamine, also on Suboxone. He initially presented to [facility] for progressive weakness, lethargy, and generalized pain for the past 7 days. He noti dey that his ankles and right knee were swollen but not warm or erythematous. According to h is girlfriend, he has been feeling sick and febrile for the past week with poor oral intake. LP was performed to rule out meningitis. IV antibiotics started, ceftriaxone 2 gm and vanco mycin [address] head and C-spine x-ray performed, patient decompensated and was intubat ed for respiratory failure and airway protection and admitted to the ICU. Significant labs on initial presentation : Na 114 (1435 hrs), BUN 81, Crea 2.48, Over next 12-24 hrs, his sodium abruptly improved to a peak of126 by 6 AM on 10/01, so c ounter measures were started to avoid over correction. Patient received DDAVP X2 X 2 MCG AT 4 AND 8 AM ON 10/01 and is on D5W AT 200 ML/HR. He has never been hospitalized because of low sodium. He has never been symptomatic because of low sodium. There are no herbal preparation intake; he does not have hx of liver cirrhos is. He does not have hx of CHF, hypothyroidism or adrenal insufficiency.There is no hx of ch ronic diarrhea and no N/V. ARF Differential includes, post infectious vs atn from sepsis, still no signs of renal recovery , will hold of on biopsy for now Will hold off HD today, check urine lytes again today Might need to convert his temp catheter to PC once he is more stable if his renal function does not improve. daily weights and strict I/O's Diet should be 0.8 gm/kg protein, 1 gm PO4, 2 gm Na, and 2 gm K restricted diet. medications to be dosed for estimated eGFR Of 15 NSAIDs (including FRASER 2 inhibitors) should not be used. Magnesium and aluminum containing antacids should be avoided. Magnesium or phosphorus containing laxatives should be avoided. Code Status: Full Code Delfino Vora MD 10/14/2015 11:29 AM onversion Transaction, Provider Unknown - 10/14/2015 11:00 AM PDTFormatting of this note might be dif ferent from the original. Therapy Progress Note by Velvet Vincent PT at 10/14/15 1100 Author: Velvet Vincent PT Service: (none) Author Type: Physical Therapist Filed: 10/14/15 1456 Date of Service: 10/14/15 1100 Status: Signed Bisque Brusher: Velvet Vincent PT (Physical Therapist) 10/14/15 1100 PT Last Visit PT Received On 10/14/15 Reason for Treatment Deconditioning Requires PT Follow Up Yes Follow up PT Only? Yes PT Eval/Reassessment Date 10/14/15 Assistance Required 2 person Precautions Other Precautions high fall risk; monitor H&H Other Comments Comments Pt re-intubated yesterday. New orders received. Pt in supine upon arrival and on a sedation holiday. Initially pt's RR was alarming in high 30s so RN administered small amoun t of sedation and RR decreased to mid-20s. BP 130/71, HR 121 bpm, SpO2 98%, PEEP 5, FiO2 30% . Per RN, pt will not be extubated today. Most recent labs show decline in H&H to 5.8 and 17 .9 with plans for pt to receive blood transfusion. Due to these values, no OOB mobility perf ormed but session focused on BUE/BLE bed exercises and also seated exercises. Pt tolerated s itting EOB quite well, but became visibly fatigued after about 10 minutes. Pt able to mainta in seated balance with SBA and gave obvious effort to fully participate in exercises. HR in low 120s both at rest and during activity. SpO2 95% and above throughout session. Pt did no t report pain during session aside from when he flexed his R elbow and irritated scab. Pt re questing oral moisture which RN planned to address. Pt left in supine at end of session. VS stable. Cognition Overall Cognitive Status JEANETTE Orientation Level JEANETTE Comments followed commands appropriately during therapy Bed Mobility Supine to Sit Mod assist (BLEs OOB or trunk to upright);x 1 person Sit to Supine Mod assist (BLEs into bed or trunk to lower);x 1 person;x 2 person Transfers Sit to/from Stand JENAETTE (not assessed d/t critical H&H) Mobility Ambulation Assistance Safety concerns (not assessed d/t critical H&H) Static Sitting Balance Static Sitting-Balance Support Feet supported;Right upper extremity support;Left upper extr emity support Static Sitting-Level of Assistance Standby assist Static Sitting-Comment/Duration x 10 minutes EOB Therapeutic Exercises Therapeutic Exercises AROM Right;AROM Left;Theraband Right;Theraband Left AROM Right (alternating UE flex when sitting EOB; x 5 ea bilat) Theraband Right Other (comment) (shldr flex and IR) Theraband Left Other (comment) (shldr flex and IR) Theraband Comments x 5 ea bilat Supine Supine-Exercise Type Ankle pumps;Heel slides Supine-Exercise Comments 2 x 5 ea bilat Seated Seated-Exercise Type Long arc quads Seated-Exercise Comments x 5 ea bilat Modalities Other Therapy Ed on LE and UE bed exercises to increase strength and ongoing progression of mobility with improvement in medical status. Activity Tolerance Activity Tolerance Treatment limited secondary to medical complications (critical H&H) Nurse Made Aware ZOLTAN Medrano Safety Devices Safety Devices in Place (needs met; RN present) Plan Treatment/Interventions Continue per Primary PT POC Progress Slow progress, medical status limitations PT Frequency 5-7x/wk;Once per day Care Duration (# of days) 7 # of days Recommendation Recommendations Defer Recommendation Comments Will be able to make more accurate recommendations when pt is extub ated. Chris Dinh DO - 10/14/2015 6:31 AM PDTFormatting of this note might be different from the gregory del angel. 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 male with significant history of tobacco and drug abuse using daily heroin and methamphetamine, also on Suboxone. He initially presented to [facility] for progressive weakness, lethargy, and ge neralized pain (mostly his chest, neck, back, knees, ankles and toes) for the past 7 days. H e noticed that his ankles and right knee were swollen but not warm or erythematous. Accordin g to his girlfriend, he has been feeling sick and febrile for the past week with poor PO int elisha. Yesterday, she noticed that he seemed like he was hallucinating and talking to himself. He was very weak today that she had to assist him to get into the car to go the the ED. Exam at OSH was significant for point tenderness at the area of the cervical spine and posi tive Kernig's sign. LP was performed to rule out meningitis. IV antibiotics started, ceftria xone 2 gm and vancomycin [address] head and C-spine x-ray performed, MRI attempted but patient decompensated and was intubated for respiratory failure and airway protection. Significant labs: Na 114 (1435 hrs), BUN 81, Crea 2.48, WBC 19.9, Hb 11.6, Plt 51, Tbili 3. 6, AST 188, ALT 155, LA 1.7. CSF: clear, colorless, WBC 0, RBC 3. Protein 31. Glucose 50. Culture with no growth to d ate Blood cultures are reported to be growing GPCs at [place] Transferred to [facility] for further care. MRI of brain and spine carried out with limited findi ngs due to non-contrast study. Evaluated by Nephrology, acute renal failure attributed to hemodynamics. Evaluated by Dr. Bhardwaj from orthopedics: Does not think patient has ankle septic joint and does not recomme nd surgical intervention. Echocardiogram showed moderate size mobile vegetation attached to the septal tricuspid valv e leaflet, moderate tricuspid regurgitation, moderate pulmonary hypertension with mildly enl arged right ventricle. Evaluated by CTS, surgery not recommended On 10/01, extubated On 10/02, he was transferred out of the ICU. On 10/04, patient had worsening mental status and also became tachypneic. He became more hy ponatremic with worsening renal function. Bilateral moderate sized pleural effusions were n oted on chest CT scan. Bedside ultrasound with bilateral pleural effusion, R>L. Left minimal and without echogenic ity suggestive of infectious pleural effusion. Left effusion is moderate with fibrin strands concerning for complicated/infectious pleural effusion. Right pig tail chest tube placed wi th purulent drainage. Head CT scan negative On 10/05, started on hemodialysis On October 08, left chest tube was placed. Reintubated on October 11. CC: Staphylococcal sepsis, right-sided endocarditis Chart reviewed: No new events. Subjective The patient is currently on sedation holiday. He was awake, and was able to deny any pain o r shortness of breath. He is uncomfortable from the tube. Anticipate spontaneous breathing t rial, hopefully extubation this morning. ROS Not possible, intubated and sedated. Scheduled Medications clonazePAM 1 mg Oral BID famotidine 20 mg Oral Daily gentamicin Topical Daily mirtazapine 15 mg Oral Nightly nafcillin 2 g Intravenous Q4H nystatin 5 mL Mouth/Throat 4x Daily QUEtiapine 25 mg Oral QAM QUEtiapine 50 mg Oral QPM sodium chloride 10 mL Intravenous 2 times per day sodium citrate anticoagulant 4 % 6 mL Intracatheter Daily Continuous Infusions fentaNYL in NS 5 mcg/mL 100 mcg/hr (10/14/15 0337) norepinephrine in D5W 64 mcg/mL Stopped (10/13/15 1700) propofol 20 mcg/kg/min (10/13/152029) PRN Medications acetaminophen OR acetaminophen, albumin human, albuterol, aluminum-magnesium hydroxide- simethicone, zejborvgtsJSNSO-aavkuo-fqdhcoowk oral solution, HYDROmorphone, lip moisturizer, ondansetron OR ondansetron, pancrelipase (Ghp-Xheq-Tqun)12,000 units, promethazine, sim ethicone, sodium bicarbonate, sodium chloride, white petrolatum OBJECTIVE Vital Signs: BP 116/69 mmHg | Pulse 115 | Temp(Src) 100.4 F (38 C) (Axillary) | Resp 19 | Ht 1.702 m (5' 7") | Wt 64.3 kg (141 lb 12.1 oz) | BMI 22.20 kg/m2 | SpO2 100% Temp: [98 F (36.7 C)-100.5 F (38.1 C)] 100.4 F (38 C) (10/13 0400) BP: (75-132)/(46-84) 116/69 mmHg (10/13 599) Heart Rate: [113-132] 115 (10/13 599) Resp: [13-27] 19 (10/13 599) SpO2: [92 %-100 %] 100 % (10/13 06) Weight: [64.3 kg (141 lb 12.1 oz)] 64.3 kg (141 lb 12.1 oz) (10/12 1257) FiO2 : [30 %-35 %] 35 % (10/13 040) Physical Exam Exam: Const: Vitals reviewed. Intubated and sedated Skin: Numerous hyperemic skin lesions with central ecchymosis consistent with ecthyma, grad ually improving. Much less confluent on the feet. ENT: Endotracheal tube is in place Lungs: CTAB, no rales or wheezes Heart: RRR, no murmur Abd: soft, NT, + bowel sounds Musculoskeletal: No gross deformity or active arthritis DATA CBC: Lab Results Component Value Date WBC 19.40* 10/14/2015 RBC 2.04* 10/14/2015 HGB 5.8* 10/14/2015 HCT 17.9* 10/14/2015 MCV 87.6 10/14/2015 MCH 28.2 10/14/2015 MCHC 32.2 10/14/2015 RDW 53.8* 10/14/2015 PLT 157 10/14/2015 MPV 8.6 10/14/2015 DIFFTYPE AUTOMATED 10/14/2015 WBC: Lab Results Component Value Date WBC 19.40* 10/14/2015 NEUTABSMAN 14.30* 10/14/2015 NEUTROABS 16.89* 10/14/2015 NEUTROMAN 82 10/14/2015 LYMPHOABS 1.05 10/14/2015 LYMPHOMAN 6 10/14/2015 LYMPHSABS 1.26 10/14/2015 LYMPHOPCT 6.48 10/14/2015 MONOABSMAN 1.57* 10/14/2015 MONOMAN 9 10/14/2015 MONOPCT 4.86 10/14/2015 EOSINOABS 0.17 10/14/2015 EOSINOMAN 1 10/14/2015 EOSABS 0.22 10/14/2015 EOSPCT 1.15 10/14/2015 BASOSABS 0.08 10/14/2015 BASOPCT 0.42 10/14/2015 PLTEST ADEQUATE 10/14/2015 BANDSPCT 2 10/14/2015 METAABS 0.26* 10/13/2015 METAPCT 1 10/13/2015 MYELOABS 0.17* 10/09/2015 MYELOPCT 1 10/09/2015 COMDIFF SLIDE SCANNED, AGREES WITH AUTOMATED RESULTS. 10/14/2015 CMP: Lab Results Component Value Date NA 134* 10/14/2015 K 4.0 10/14/2015 CL 97* 10/14/2015 CO2 25 10/14/2015 ANIONGAP 16 10/14/2015 GLUF 127* 10/14/2015 BUN 67* 10/14/2015 CREATININE 4.4* 10/14/2015 BCR 15 10/14/2015 CA 7.1* 10/14/2015 PROT 5.9* 10/14/2015 ALB 2.0* 10/14/2015 GLOB 3.6 10/01/2015 BILITOT 2.7* 10/14/2015 ALP 82 10/14/2015 AST 33 10/14/2015 ALT 21 10/14/2015 EGFR 17* 10/14/2015 Micro: No new culture data. Medical Imaging: This morning's CXR was viewed in PACS and shows scattered patchy infiltrat es, no significant change. Radiology report pending. PROBLEM LIST Principal Problem: Sepsis (HCC) Active Problems: Hyposmolality and/or hyponatremia MARCEL (acute kidney injury) (HCC) Leucocytosis Thrombocytopenia (HCC) Toxic metabolic encephalopathy Acute respiratory failure with hypoxia (HCC) Heroin abuse Methamphetamine abuse Tobacco abuse Acute septic pulmonary embolism (HCC) Acute infective endocarditis Moderate protein-calorie malnutrition (HCC) ASSESSMENT & PLAN Gram-positive sepsis, MSSA tricuspid valve endocarditis -Patient has MSSA bacteremia, tricuspid valve endocarditis with septic pulmonary emboli re lated to IV drug use -Neck pain and back pain improved; noncontrast MRI of spine and brain on presentation show s no evidence of infection -No evidence of septic arthritis; evaluated by orthopedics -Blood cultures on admission here have no growth to date. PICC placed. Central line sedrick pina -CT scan performed on October 08 confirmed continued pleural effusion on the left, appreciate chest tube placement. Fevers have improved. Continue nafcillin 2 g IV q4 hours. Encephalopathy, metabolic -Appears to be improving, we will continue to monitor. Acute hypoxemic respiratory failure -Reintubated on 10/11. No significant change in pulmonary appearance on chest x-ray. Appear s to be doing better. MARCEL -No adjustment needed for nafcillin. Abnormal LFTs -Resolved. Petechial/purpuric rash -Suspect ecthyma. Slightly better today. IV drug use -Not a candidate for outpatient IV antibiotics. HIV negative. Code Status: Full Code CHRIS SWANN DO 10/14/2015 onversion Transaction , Provider Unknown - 10/13/2015 8:00 PM PDT Nurse Progress Note by Kaci Bolivar RN at 10/13/151999 Author: Kaci Bolivar RN Service: (none) Author Type: Registered Nurse Filed: 10/14/15 0730 Date of Service: 10/13/151999 Status: Signed Bisque Brusher: Kaci Bolivar RN (Registered Nurse) Report taken from day RN, POC discussed. Armband verified with MAR, allergies and code stat us noted. Pt vented, sedated, but responds appropriately. He is increasingly alert and cough ing a lot more secretions up.There are no acute changes. Will continue to monitor. 2100 Pt medications given and he tolerated well. He wakes easily and is able to communicate pain and needs using gestures and mouthing words. Pt was assisted and additional pain medic ation given. Will continue to monitor. 2200 Pt repositioned. Will continue to monitor. 2300 Pt triggering the vent a lot. He was having discomfort and was repositioned. He was ab le to settle down and rest. 0000 Assessment complete and no acute changes. Rounds were done and orders received and imp lemented. Will continue to monitor. 0100 Pt is resting. 0200 No changes, patient was repositioned and cleaned up. Frequent oral care is provided an d patient tolerates well. Pt was found with his hand up by his ET tube, so he was reminded h e needed that at this time. [id number] Pt assessment complete and able to communicate need to use bedpan. His hand was f ound by his ET tube again so orders for restraints was placed. He was assisted onto bedpan a nd had a large stool. After being cleaned up he was resting. 0500 X ray came by. Pt became restless, but after repositioning he settled down. Pt continu es to have very thick secretions. 0520 Dr. Parkinson notified of critical H&H and a redraw was done and sent. Will await result . 0610 Pt H&H was accurate, so orders obtained. Pt continues to have very thick secretions. Will continue to monitor. 0636 Lab here to get labs to reband patient. 0700 Report to day RN, POC discussed. Pt was assisted onto bedpan. Marylou Fermin ARNP - 10/13/2015 3:36 PM PDTFormatting of this note might be different fr om the original. Progress Notes by YAIR Gambino at 10/13/15 1539 Author: YAIR Gambino Service: Auto Dealer Author Type: Advanced Registere d Nurse Practitioner Filed: 10/13/15 0684 Date of Service: 10/13/15 153 Status: Signed Bisque Brusher: YAIR Gambino (Advanced Registered Nurse Practitioner) [facility] Service: Auto Dealer Progress Note Yang Keyana 30 y.o. Hospital Day: LOS: 12 days Post-Op Day: * No surgery found * Consulting Physicians Treatment Team: Consulting Physician: Chris Swann DO Consulting Physician: Renetta Buck MD Consulting Physician: Gonzalez Bhardwaj MD Surgeon: Blanca Arias MD Consulting Physician: Blanac Arias MD Admitting Provider: Carly Thomas DO SUBJECTIVE Patient Summary: The patient is a 30 y.o. male with significant history of tobacco an d drug abuse using daily heroin and methamphetamine, also on Suboxone. He initially presen latasha to [facility] for progressive weakness, lethargy, and generalized pain (most ly his chest, neck, back, knees, ankles and toes) for 7 days. According to his girlfriend, he was feeling sick and febrile for a week with poor PO intake; she also noticed that his an kles and right knee were swollen but not warm or erythematous, and he seemed to be "halluinc ating and talking to himself". Exam at OSH was significant for point tenderness at the area of the cervical spine and posi tive Kernig's sign. LP was performed to rule out meningitis. IV antibiotics started, ceftria xone 2 gm and vancomycin [address] head and C-spine x-ray performed, MRI attempted but patient decompensated and was intubated for respiratory failure and airway protection. Significant labs: Na 114 (1435 hrs), BUN 81, Crea 2.48, WBC 19.9, Hb 11.6, Plt 51, Tbili 3. 6, AST 188, ALT 155, LA 1.7. CSF: clear, colorless, WBC 0, RBC 3. Transferred to [facility] for further care. Timeline: Evaluated by Nephrology, acute renal failure attributed to hemodynamics. Evaluated by Dr. Bhardwaj from orthopedics: Does not think patient has ankle septic joint and does not recom mend surgical intervention. Echocardiogram showed moderate size mobile vegetation attached to the septal tricuspid valv e leaflet, moderate tricuspid regurgitation, moderate pulmonary hypertension with mildly enl arged right ventricle. Evaluated by CTS, surgery not recommended On 10/01, extubated. MRI spine w/o evidence abscess On 10/02, he was transferred out of the ICU. 10/04-Transferred to ICU for worsening mental status, drop of Na from 122 to 117 and worseni ng renal function 10/05-HD line placed, started on dialysis. Right pigtail chest tube with drainage of 1400 ml serosanguineous exudate 10/06-Dialysis session. Improved encephalopathy. Anxiety requiring high dose precedex. 10/07-Right pigtail chest catheter removed 10/08-dialysis again today, 3L removed; Cxr with bilateral effusions which appear to be abou t the same as yesterday; will repeat CT chest to evaluate further; continues to be anxious, c/o pain 10/09-dialysis again today, 3.5L removed, now with left pleural chest catheter placed overni ght, immediately drained 850cc, only 50cc during the day today; intermittent fevers, tachyca rdia persists; add seroquel BID 10/10--dialysis again today with anticipated 2.5L removal; L pleural chest catheter removed, f/u Cxr in 1 hour; if no issues post dialysis and f/u cxr will transfer to acute care bed 10/11--worsening hypoxia, tachypnea, and associated tachycardia so electively re-intubated 10/12--restarted Levophed during dialysis today; fio2 weaned to 30%; HSV oral swab negative Overnight events: rested comfortably overnight, temps better, restarted tube feeds OBJECTIVE VITAL SIGNS Temp: [98 F (36.7 C)-99.2 F (37.3 C)] 99.2 F (37.3 C) Heart Rate: [116-134] 117 Resp: [10-27] 19 BP: (75-132)/(46-84) 123/81 mmHg FiO2 : [30 %-35 %] 30 % Intake/Output Summary (Last 24 hours) at 10/13/15 1536 Last data filed at 10/13/15 1257 Gross per 24 hour Intake 2546.9 ml Output 4000 ml Net -1453.1 ml EXAM GEN: resting comfortably, awakens and follows commands NEURO: PERRLA, no facial asymmetry, moves all extremities well GCS: 11T HEENT: sclerae clear, nonicteric, oral mmm, dried blood noted, ? Herpetic lesions NECK: supple, trachea midline HEART: Sinus tachycardia, S1/S2, +murmur LUNGS: scattered rhonchi bilaterally , no wheezing, or rales, symmetric chest expansion, L abored and shallow respirations ABD: soft, nondistended, nontender to palpation, no masses, no hepatosplenomegaly EXTR: edema all extremities, no clubbing or cyanosis SKIN: diffuse purpuric palpable rash bilateral anterior lower extremities, also hand and fe et. LINES/TUBES: Right UE PICC, right IJ CVC 10/05 DATA Recent Labs Lab 10/13/15 0402 10/12/15 0321 10/11/15 1641 WBC 26.11* 22.95* 28.11* RBC 2.62* 2.63* 2.92* HGB 7.3* 7.3* 7.9* HCT 22.7* 22.6* 24.7* MCV 86.5 85.8 84.4 MCH 28.0 27.7 27.1 MCHC 32.4 32.3 32.1 RDW 51.2 50.3 48.6 PLT 163 127* 149* MPV 9.4 8.8 7.9 BANDSABS 0.78* 0.46* 0.84* MORPH 2+ RBC AND PLT MORPHOLOGY APPEAR NORMAL 1+ Recent Labs Lab 10/13/15 0402 10/12/15 03210/11/15 0454 NA 132* 134* 130* K 5.7* 4.1 4.4 CL 96* 98* 95* CO2 22* 26 27 ANIONGAP 20 14 12 GLUF 134* 175* 171* BUN 72* 43* 46* CREATININE 5.6* 4.0* 4.8* BCR 13 11 10 CA 7.5* 7.1* 7.1* ALB 1.6* 2.0* 1.6* PROT 6.0* 5.8* 6.0* BILITOT 3.2* 4.4* 4.1* ALT 21 18 19 AST 37 33 26 EGFR 13* 19* 15* PHOS 6.2* 3.6 5.3* MG 2.4 2.4 2.6* Recent Labs Lab 10/13/15 0402 10/12/15 0321 10/11/15 1641 INR 1.1 1.2 2.4 IMAGING 1983 30 years XR CHEST 1 VIEW 10/13/2015 5:29 AM INDICATION: Tube/line position. TECHNIQUE: Frontal view COMPARISON: Chest x-ray 10/12/2015 FINDINGS: Stable position of endotracheal tube, NG tube, right-sided PICC line and right- sided central line. Essentially unchanged bilateral airspace and nodular/cavitary opacities. At least small bilateral pleural effusions appear unchanged. Cardiomediastinal silhouette a nd osseous structures appear unremarkable. IMPRESSION: 1. Essentially unchanged bilateral airspace and nodular/cavitary opacities. 2. Unchanged at least small bilateral pleural effusions. XR CHEST 1 VIEW 10/11/2015 11:53 AM INDICATION: Removal of chest tube. COMPARISON: October 11, 2015 TECHNIQUE: Chest 1 view, AP view of the chest FINDINGS: Interval removal of left chest tube. No pneumothorax. Bilateral patchy consolidation and cavitary lesions consistent with septic emboli/infection . Upper mediastinal contours are normal. Heart size is unchanged. Right internal jugular cent ral venous catheter tip within the right atrium. No acute osseous abnormality. IMPRESSION: Interval removal of left chest tube. No pneumothorax. Other findings as above XR CHEST 1 VIEW 10/09/2015 7:56 AM History: 30 years. Male. Numerous septic pulmonary emboli identified on chest CT 09/17 07/03. Bilateral pleural effusions. Follow-up exam. Technique: AP portable upright technique was performed at 0755 hours. Comparison: 10/08/15 Findings: A moderate LEFT pleural effusion is again visualized with pleural density measu ring approximately 16 mm in thickness at the lateral midportion of the LEFT chest, unchanged . Partial atelectasis of the LEFT lower lobe is due to pleural effusion. A smaller RIGHT pleural effusion still present with obscuration of the RIGHT hemidiaphragm. Mild atelectasis of the RIGHT lower lobe is also present. Nodular densities with central lucencies are again visualized throughout both lung barry, consistent with numerous small pulmonary septic emboli. Mild groundglass infiltrate is aga in visualized throughout the aerated portion of the LEFT lung. The cardiac volume is normal. The pulmonary vasculature is obscured. A persistent RIGHT internal jugular dialysis catheter is visualized with its tip at the theresa ction of the superior vena cava and RIGHT atrium. A RIGHT brachial central venous PICC sushma e is present with the tip at the junction of the superior vena cava and right atrium, in goo d position. IMPRESSION: 1. No significant change as compared with 10/08/15. 2. Moderate LEFT and mild RIGHT pleural effusions. 3. Numerous nodular densities throughout both lung barry representing normal pulmonary s eptic emboli. 4. Persistent mild alveolar infiltrate of the LEFT lung, unchanged. 5. Satisfactory position of life-support catheters. Echo Impression 1. LV size, wall thickness and systolic function are normal, with an EF of 60%. 2. The diastolic filling pattern indicates impaired relaxation consistent with mild dysfunc tion (Grade I). 3. The right ventricle is mildly enlarged, but right ventricular systolic function is dorothy l. 4. Moderate tricuspid regurgitation present. 5. There is moderate pulmonary hypertension. The right ventricular systolic pressure (pu lmonary artery systolic pressure), as measured by Doppler, is 50.27mmHg. 6. Moderate sized, mobile vegetation attached to the septal tricuspid valve leaflet. Microbiology data: 09/27 blood cultures obtained from [facility] are growing MSSA from 3 out of 3 bottles CSF culture result has not yet been faxed but per personnel from [place] microbiology, no growth 09/30 blood cultures with no growth to date 09/30 MRSA nasal PCR negative 09/30 tracheal aspirate culture grew 3+ MSSA 10/03 urine culture with no growth PROBLEM LIST Principal Problem: Sepsis (HCC) Active Problems: Hyposmolality and/or hyponatremia MARCEL (acute kidney injury) ([facility]) Leucocytosis Thrombocytopenia (HCC) Toxic metabolic encephalopathy Acute respiratory failure with hypoxia (HCC) Heroin abuse Methamphetamine abuse Tobacco abuse Acute septic pulmonary embolism (HCC) Acute infective endocarditis Moderate protein-calorie malnutrition ([facility]) ASSESSMENT & PLAN NEURO: Septic encephalopathy-Resolving CSF w/o growth from [facility] Continue remeron for anxiety/insomnia CV: Hypotension with dialysis today--restarted Levophed Tachycardia secondary to IE as well as anxiety, fluctuates from 110's to low 1120's---mo nitor; continue abx per ID, tylenol as needed, anti-anxiolytics PULM: Recurrent Hypoxemic respiratory failure---Re-intubated 10/11; ventilator mgmt and wean, a bg and cxr in a.m. Pulmonary septic embolic from MSSA tricuspid valve IE CT chest repeated 10/08--Right pleural effusion less s/p pigtail chest tube 10/05. Exudati ve by Lights criteria. PH, glucose not consistent with complicated infected effusion. Right pleural effusion s/p pigtail chest tube 10/05. Exudative by Lights criteria. PH, gl ucose not consistent with complicated infected effusion Left pleural effusion, much improved s/p pigtail catheter placed 10/08, immediately drain ed 850cc---removed (10/10) GI/NUTRITION: Severe malnutrition secondary to infectious process Tube feeds per dietary rec's Mild Transaminitis (resolved) with elevated bilirubin- Trending down, likely sepsis rela latasha . Hepatitis serologies and HIV negative. Continue to monitor. RENAL/LYTES: MARCEL. Anuric requiring SLED. ATN vs C3 staph induced glomeurlonephritis. UA with hematuria. C3 low. C4 wnl. Low C3 likely from MSSA infectious process, but juan carlos l biopsy unlikely to alter management Unlikely AIN. Urine eosinophils negative Hepatitis serologies and HIV negative. Consider HCV RNA Hyponatremia-resolving. Cortisol and TSH wnl HD placed, started on dialysis 10/05 ID: MSSA tricuspid valve endocarditis/Leukocytosis/febrile---. Bedside ultrasound shows tric uspic posterior leaflet involvement on RV inflow view and septal leaflet involvement seen on 4C view---Followed by ID, on nafcillin Oral lesions, ? Herpetic---HSV swab NEGATIVE HEME: Platelets stable Anemia-Multifactorial, cannot exclude hemolysis. Required blood transfusion 10/06 (2 unit s PRBC); 1 unit given 10/09. Continue to monitor ENDO: Monitor BS MUSC/SKIN: Vasculitis from IE/sepsis PROPHYLAXIS: Stress ulcer prophylaxis: on PPI DVT prophylaxis: Heparin SC VAP bundle: N/A Disposition: Critical care plan as above Code Status: Full Code *Please bill 45 minutes of critical care time spent evaluating the patient, reviewing the d michael and formulating a plan exclusive of all other procedures. YAIR GAMBINO 10/13/2015 3:36 PM Delfino Sanders i, MD - 10/13/2015 10:18 AM PDTFormatting of this note might be different fro m the original. Progress Notes by Delfino Vora MD at 10/13/15 1018 Author: Delfino Vora MD Service: Nephrology Author Type: Physician Filed: 10/13/15 1023 Date of Service: 10/13/15 1018 Status: Signed Bisque Brusher: Delfino Vora MD (Physician) [facility] Service: Nephrology Renal Consult Progress Note Yang Ridley [id number] Hospital Day: LOS: 12 days SUBJECTIVE Patient Summary: Patient seen and examined. D/w his sister who was at bedside, seen on HD Scheduled Medications clonazePAM 1 mg Oral BID famotidine 20 mg Oral Daily gentamicin Topical Daily mirtazapine 15 mg Oral Nightly nafcillin 2 g Intravenous Q4H nystatin 5 mL Mouth/Throat 4x Daily polyethylene glycol 8.5 g Oral Daily QUEtiapine 25 mg Oral QAM QUEtiapine 50 mg Oral QPM sodium chloride 10 mL Intravenous 2 times per day sodium citrate anticoagulant 4 % 6 mL Intracatheter Daily succinylcholine 100 mg Intravenous Once Continuous Infusions fentaNYL in NS 5 mcg/mL 100 mcg/hr (10/13/15 0539) norepinephrine in D5W 64 mcg/mL 8 mcg/min (10/13/1558) propofol 10 mcg/kg/min (10/13/1559) PRN Medications acetaminophen OR acetaminophen, albumin human, albuterol, aluminum-magnesium hydroxide- simethicone, zczdrwdndkHSDHY-xcelnf-esdozyjgm oral solution, HYDROmorphone, lip moisturizer, ondansetron OR ondansetron, pancrelipase (Ivu-Pwtq-Fkjc)12,000 units, promethazine, sim ethicone, sodium bicarbonate, sodium chloride, white petrolatum OBJECTIVE Vital Signs: BP 128/74 mmHg | Pulse 119 | Temp(Src) 99 F (37.2 C) (Axillary) | Resp 24 | Ht 1.702 m (5' 7") | Wt 66.7 kg (147 lb 0.8 oz) | BMI 23.03 kg/m2 | SpO2 100% Intake/Output Summary (Last 24 hours) at 10/13/15 1018 Last data filed at 10/13/15 0400 Gross per 24 hour Intake 506.9 ml Output 0 ml Net 506.9 ml Gen: NAD, intubated and awake Neck: No JVD Pulm: CTA b/l, good air movement, no w/r/r CV: RRR, nl S1S2, no rub Abd: Soft, NT/ND, NABS Ext: 1+ edema Access: rt ij [place] DATA Recent Labs Lab 10/13/15 0402 10/12/15 0321 10/11/15 0454 10/10/15 0443 CREATININE 5.6* 4.0* 4.8* 4.6* Recent Labs Lab 10/13/1540110/12/1532010/11/15 0454 10/10/15 1846 10/10/15 0443 NA 132* 134* 130* -- 133* K 5.7* 4.1 4.4 4.4 4.4 CL 96* 98* 95* -- 94* CO2 22* 26 27 -- 30 BUN 72* 43* 46* -- 43* CA 7.5* 7.1* 7.1* -- 6.7* PHOS 6.2* 3.6 5.3* 4.4 6.2* MG 2.4 2.4 2.6* 2.7* 2.6* Recent Labs Lab 10/13/1540110/12/1532010/11/15164010/11/15 0853 10/11/15 0454 10/10/15 0443 ALB 1.6* 2.0* -- -- 1.6* 1.7* ALP 83 73 -- -- 72 74 AST 37 33 -- -- 26 27 ALT 21 18 -- -- 19 19 INR 1.1 1.2 2.4 2.1 -- -- Recent Labs Lab 10/13/1540110/12/1532010/11/15164010/11/15 0853 WBC 26.11* 22.95* 28.11* 30.41* RBC 2.62* 2.63* 2.92* 3.16* HGB 7.3* 7.3* 7.9* 8.8* HCT 22.7* 22.6* 24.7* 26.5* PLT 163 127* 149* 169 MCV 86.5 85.8 84.4 83.9 RDW 51.2 50.3 48.6 47.3 Recent Labs Lab 10/13/1540110/12/1532010/11/15164010/11/15 0853 INR 1.1 1.2 2.4 2.1 PROBLEM LIST Principal Problem: Sepsis (HCC) Active Problems: Hyposmolality and/or hyponatremia MARCEL (acute kidney injury) (HCC) Leucocytosis Thrombocytopenia (HCC) Toxic metabolic encephalopathy Acute respiratory failure with hypoxia (HCC) Heroin abuse Methamphetamine abuse Tobacco abuse Acute septic pulmonary embolism (HCC) Acute infective endocarditis Moderate protein-calorie malnutrition (HCC) ASSESSMENT & PLAN The patient is a 30 y.o. male with significant history of tobacco and drug abuse using jennifer y heroin and methamphetamine, also on Suboxone. He initially presented to [facility] for progressive weakness, lethargy, and generalized pain for the past 7 days. He noti edy that his ankles and right knee were swollen but not warm or erythematous. According to imer valverde girlfriend, he has been feeling sick and febrile for the past week with poor oral intake. LP was performed to rule out meningitis. IV antibiotics started, ceftriaxone 2 gm and vanco mycin [address] head and C-spine x-ray performed, patient decompensated and was intubat ed for respiratory failure and airway protection and admitted to the ICU. Significant labs on initial presentation : Na 114 (1435 hrs), BUN 81, Crea 2.48, Over next 12-24 hrs, his sodium abruptly improved to a peak of126 by 6 AM on 10/01, so c ounter measures were started to avoid over correction. Patient received DDAVP X2 X 2 MCG AT 4 AND 8 AM ON 10/01 and is on D5W AT 200 ML/HR. He has never been hospitalized because of low sodium. He has never been symptomatic because of low sodium. There are no herbal preparation intake; he does not have hx of liver cirrhos is. He does not have hx of CHF, hypothyroidism or adrenal insufficiency.There is no hx of ch ronic diarrhea and no N/V. ARF Differential includes, post infectious vs atn from sepsis,still no signs of renal recovery, will hold of on biopsy for now and also check a bladder scan. Hyperkalemia should be corrected by SLED Will do 6 hrs of SLED and aim for 2 l of UF as tolerated daily weights and strict I/O's Diet should be 0.8 gm/kg protein, 1 gm PO4, 2 gm Na, and 2 gm K restricted diet. medications to be dosed for estimated eGFR Of 15 NSAIDs (including FRASER 2 inhibitors) should not be used. Magnesium and aluminum containing antacids should be avoided. Magnesium or phosphorus containing laxatives should be avoided. Code Status: Full Code Delfino Vora MD 10/13/2015 10:18 AM onversion Transaction, Provider Unknown - 10/13/2015 8:43 AM PDTFormatting of this note might be dif ferent from the original. Therapy Progress Note by Abran Parrish, PT at 10/13/15 0843 Author: Abran Parrish PT Service: (none) Author Type: Physical Therapist Filed: 10/13/15 1437 Date of Service: 10/13/15 0843 Status: Signed Bisque Brusher: Abran Parrish PT (Physical Therapist) 10/13/15 0843 PT Last Visit PT Received On 10/13/15 (intubated yeter afternoon. Hold PT) Requires PT Follow Up On hold Chris Dinh DO - 10/13/2015 6:26 AM PDTFormatting of this note might be different from the gregory ginal. Progress Notes by Chris Swann DO at 10/13/15 0626 Author: Chris Swann DO Service: (none) Author Type: Physician Filed: 10/13/15 0750 Date of Service: 10/13/15625 Status: Signed Bisque Brusher: Chris Swann DO (Physician) [facility] Service: Infectious Disease Progress Note Hospital Day: LOS: 12 days Post-Op Day: * No surgery found * SUBJECTIVE Patient Summary: CC: Fever, chest pain and altered mental status From [employer] admission note on 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 male with significant history of tobacco and drug abuse using daily heroin and methamphetamine, also on Suboxone. He initially presented to [facility] for progressive weakness, lethargy, and ge neralized pain (mostly his chest, neck, back, knees, ankles and toes) for the past 7 days. H e noticed that his ankles and right knee were swollen but not warm or erythematous. Nessa g to his girlfriend, he has been feeling sick and febrile for the past week with poor PO int elisha. Yesterday, she noticed that he seemed like he was hallucinating and talking to himself. He was very weak today that she had to assist him to get into the car to go the the ED. Exam at OSH was significant for point tenderness at the area of the cervical spine and posi tive Kernig's sign. LP was performed to rule out meningitis. IV antibiotics started, ceftria xone 2 gm and vancomycin [address] head and C-spine x-ray performed, MRI attempted but patient decompensated and was intubated for respiratory failure and airway protection. Significant labs: Na 114 (1435 hrs), BUN 81, Crea 2.48, WBC 19.9, Hb 11.6, Plt 51, Tbili 3. 6, AST 188, ALT 155, LA 1.7. CSF: clear, colorless, WBC 0, RBC 3. Protein 31. Glucose 50. Culture with no growth to d ate Blood cultures are reported to be growing GPCs at [facility] Transferred to [facility] for further care. MRI of brain and spine carried out with limited findi ngs due to non-contrast study. Evaluated by Nephrology, acute renal failure attributed to hemodynamics. Evaluated by Dr. Bhardwaj from orthopedics: Does not think patient has ankle septic joint and does not recomme nd surgical intervention. Echocardiogram showed moderate size mobile vegetation attached to the septal tricuspid valv e leaflet, moderate tricuspid regurgitation, moderate pulmonary hypertension with mildly enl arged right ventricle. Evaluated by CTS, surgery not recommended On 10/01, extubated On 10/02, he was transferred out of the ICU. On 10/04, patient had worsening mental status and also became tachypneic. He became more hy ponatremic with worsening renal function. Bilateral moderate sized pleural effusions were n oted on chest CT scan. Bedside ultrasound with bilateral pleural effusion, R>L. Left minimal and without echogenic ity suggestive of infectious pleural effusion. Left effusion is moderate with fibrin strands concerning for complicated/infectious pleural effusion. Right pig tail chest tube placed wi th purulent drainage. Head CT scan negative On 10/05, started on hemodialysis On October 08, left chest tube was placed. Reintubated on October 11. CC: Staphylococcal sepsis, right-sided endocarditis Chart reviewed: No new events. Subjective Intubated in the setting of increased work of breathing overnight. ROS Not possible, intubated and sedated. Scheduled Medications clonazePAM 1 mg Oral BID epoetin juliet 20,000 Units Intravenous Once in dialysis famotidine 20 mg Oral Daily gentamicin Topical Daily mirtazapine 15 mg Oral Nightly nafcillin 2 g Intravenous Q4H nystatin 5 mL Mouth/Throat 4x Daily polyethylene glycol 8.5 g Oral Daily QUEtiapine 25 mg Oral QAM QUEtiapine 50 mg Oral QPM sodium chloride 10 mL Intravenous 2 times per day sodium citrate anticoagulant 4 % 6 mL Intracatheter Daily succinylcholine 100 mg Intravenous Once Continuous Infusions fentaNYL in NS 5 mcg/mL 100 mcg/hr (10/13/15 0539) propofol 20 mcg/kg/min (10/13/15 0540) PRN Medications acetaminophen OR acetaminophen, albumin human, albuterol, aluminum-magnesium hydroxide- simethicone, fnrwiltvauLGEOL-aehydd-mrbbgwcgt oral solution, HYDROmorphone, lip moisturizer, ondansetron OR ondansetron, pancrelipase (Kgi-Ruwc-Hhoe)12,000 units, promethazine, sim ethicone, sodium bicarbonate, sodium chloride, white petrolatum OBJECTIVE Vital Signs: BP 112/67 mmHg | Pulse 125 | Temp(Src) 98.4 F (36.9 C) (Axillary) | Resp 22 | Ht 1.702 m (5' 7") | Wt 64.2 kg (141 lb 8.6 oz) | BMI 22.16 kg/m2 | SpO2 99% Temp: [97.5 F (36.4 C)-99.3 F (37.4 C)] 98.4 F (36.9 C) (10/13 399) BP: (89-131)/(54-97) 112/67 mmHg (10/12 599) Heart Rate: [122-144] 125 (10/12 599) Resp: [10-63] 22 (10/12 599) SpO2: [94 %-100 %] 99 % (10/12 599) Height: [170.2 cm (5' 7")] 170.2 cm (5' 7") (10/12 0015) FiO2 : [25 %-40 %] 35 % (10/13 399) Physical Exam Exam: Const: Vitals reviewed. Intubated and sedated Skin: Numerous hyperemic skin lesions with central ecchymosis consistent with ecthyma gangr enosum, gradually improving. ENT: Endotracheal tube is in place Lungs: CTAB, no rales or wheezes Heart: RRR, no murmur Abd: soft, NT, + bowel sounds Musculoskeletal: No gross deformity or active arthritis DATA CBC: Lab Results Component Value Date WBC 26.11* 10/13/2015 RBC 2.62* 10/13/2015 HGB 7.3* 10/13/2015 HCT 22.7* 10/13/2015 MCV 86.5 10/13/2015 MCH 28.0 10/13/2015 MCHC 32.4 10/13/2015 RDW 51.2 10/13/2015 PLT 163 10/13/2015 MPV 9.4 10/13/2015 DIFFTYPE MANUAL 10/13/2015 WBC: Lab Results Component Value Date WBC 26.11* 10/13/2015 NEUTABSMAN 21.41* 10/13/2015 NEUTROMAN 82 10/13/2015 LYMPHOABS 2.09 10/13/2015 LYMPHOMAN 8 10/13/2015 MONOABSMAN 1.57* 10/13/2015 MONOMAN 6 10/13/2015 EOSINOABS 0.17 10/09/2015 EOSINOMAN 1 10/09/2015 PLTEST ADEQUATE 10/10/2015 BANDSPCT 3 10/13/2015 METAABS 0.26* 10/13/2015 METAPCT 1 10/13/2015 MYELOABS 0.17* 10/09/2015 MYELOPCT 1 10/09/2015 CMP: Lab Results Component Value Date NA 132* 10/13/2015 K 5.7* 10/13/2015 CL 96* 10/13/2015 CO2 22* 10/13/2015 ANIONGAP 20 10/13/2015 GLUF 134* 10/13/2015 BUN 72* 10/13/2015 CREATININE 5.6* 10/13/2015 BCR 13 10/13/2015 CA 7.5* 10/13/2015 PROT 6.0* 10/13/2015 ALB 1.6* 10/13/2015 GLOB 3.6 10/01/2015 BILITOT 3.2* 10/13/2015 ALP 83 10/13/2015 AST 37 10/13/2015 ALT 21 10/13/2015 EGFR 13* 10/13/2015 Micro: No new culture data. Medical Imaging: This morning's CXR was viewed in PACS, compared to yesterday afternoon, sh ows scattered patchy infiltrates, now intubated. Radiology report pending. PROBLEM LIST Principal Problem: Sepsis (HCC) Active Problems: Hyposmolality and/or hyponatremia MARCEL (acute kidney injury) (HCC) Leucocytosis Thrombocytopenia (HCC) Toxic metabolic encephalopathy Acute respiratory failure with hypoxia (HCC) Heroin abuse Methamphetamine abuse Tobacco abuse Acute septic pulmonary embolism (HCC) Acute infective endocarditis Moderate protein-calorie malnutrition (HCC) ASSESSMENT & PLAN Gram-positive sepsis, MSSA tricuspid valve endocarditis -Patient has MSSA bacteremia, tricuspid valve endocarditis with septic pulmonary emboli re lated to IV drug use -Neck pain and back pain improved; noncontrast MRI of spine and brain on presentation show s no evidence of infection -No evidence of septic arthritis; evaluated by orthopedics -Blood cultures on admission here have no growth to date. PICC placed. Central line sedrick pina -CT scan performed on October 08 confirmed continued pleural effusion on the left, appreciate chest tube placement. Fevers have improved. Continue nafcillin 2 g IV q4 hours. Encephalopathy, metabolic -Appears to be improving, we will continue to monitor. Acute hypoxemic respiratory failure -Reintubated on 10/11. No significant change in pulmonary appearance on chest x-ray, will m onitor with no change in antibiotics. MARCEL -No adjustment needed for nafcillin. Abnormal LFTs -Resolved. Petechial/purpuric rash -Suspect ecthyma. Slightly better today. IV drug use -Not a candidate for outpatient IV antibiotics. HIV negative. Code Status: Full Code CHRIS SWANN DO 10/13/2015 Adarsh Wylie MD - 10/12/2015 5:55 PM PDT Progress Notes by Adarsh Crews MD at 10/12/151754 Author: Adarsh Crews MD Service: Nephrology Author Type: Physician Filed: 10/12/151900 Date of Service: 10/12/151754 Status: Signed Bisque Brusher: Adarsh Crews MD (Physician) [facility] Service: Nephrology Progress Note Hospital Day: LOS: 11 days Post-Op Day: * No surgery found * SUBJECTIVE Patient Summary: Reviewed medical records expensively. The patient is a 30 y.o. male with significant history of tobacco and drug abuse using daily heroin and methamphetamine, also on Suboxone. He initially presented to [facility] for progressive weaknes s, lethargy, and generalized pain for the past 7 days. He noticed that his ankles and right knee were swollen but not warm or erythematous. According to his girlfriend, he has been fee ling sick and febrile for the past week with poor oral intake. LP was performed to rule out meningitis. IV antibiotics started, ceftriaxone 2 gm and vancomycin [address] head and C-spine x-ray performed, patient decompensated and was intubated for respiratory failure and airway protection and admitted to the ICU. Significant labs on initial presentation : Na 114 (1435 hrs), BUN 81, Crea 2.48, Over next 12-24 hrs, his sodium abruptly improved to a peak of126 by 6 AM on 10/01, so c ounter measures were started to avoid over correction. Patient received DDAVP X2 X 2 MCG AT 4 AND 8 AM ON 10/01 and is on D5W AT 200 ML/HR. He has never been hospitalized because of low sodium. He has never been symptomatic because of low sodium. There are no herbal preparation intake; he does not have hx of liver cirrhos is. He does not have hx of CHF, hypothyroidism or adrenal insufficiency.There is no hx of ch ronic diarrhea and no N/V. Events Overnight: Had worsening respiratory distress with increased RR up to the 60s, not tolerating BiPAP and was intubated early this afternoon. Currently sedated. Continues t o have tachyarrhythmia with rate in the 160s before intubation but now much improved to the baseline 130s. Had and fairly tolerated HD via the SLEDD protocol daily for 5 treatments; la st treatment was yesterday. Serum Na+ improved and stable. Still severely oligo-anuric. Revi ewed labs and medical records. Note persisting azotemia. Has had a total of three units bloo d transfusion in the past 1 week. Still has significantly low H/H. Scheduled Medications clonazePAM 1 mg Oral BID famotidine 20 mg Oral Daily gentamicin Topical Daily mirtazapine 15 mg Oral Nightly nafcillin 2 g Intravenous Q4H nystatin 5 mL Mouth/Throat 4x Daily phenylephrine polyethylene glycol 8.5 g Oral Daily QUEtiapine 25 mg Oral QAM QUEtiapine 50 mg Oral QPM sodium chloride 10 mL Intravenous 2 times per day sodium citrate anticoagulant 4 % 6 mL Intracatheter Daily succinylcholine 100 mg Intravenous Once Continuous Infusions fentaNYL in NS 5 mcg/mL 50 mcg/hr (10/12/15 1410) propofol 20 mcg/kg/min (10/12/15 1411) PRN Medications acetaminophen OR acetaminophen, albumin human, albuterol, aluminum-magnesium hydroxide- simethicone, mfobvnqafaPTBJX-fcdgsx-bsipxuyeb oral solution, HYDROmorphone, lip moisturizer, ondansetron OR ondansetron, promethazine, simethicone, sodium chloride, white petrolatu m OBJECTIVE Vital Signs: BP 113/69 mmHg | Pulse 132 | Temp(Src) 99.3 F (37.4 C) (Axillary) | Resp 22 | Ht 1.702 m (5' 7") | Wt 64.2 kg (141 lb 8.6 oz) | BMI 22.16 kg/m2 | SpO2 99% Temp: [97.5 F (36.4 C)-100.4 F (38 C)] 99.3 F (37.4 C) (10/11 1200) BP: (99-130)/(64-97) 113/69 mmHg (10/11 1714) Heart Rate: [127-144] 132 (10/11 1714) Resp: [20-63] 22 (10/11 1714) SpO2: [93 %-100 %] 99 % (10/11 1714) FiO2 : [25 %-40 %] 35 % (10/11 1600) Intake/Output Summary (Last 24 hours) at 10/12/15 1755 Last data filed at 10/12/15 1717 Gross per 24 hour Intake 3129.9 ml Output 5 ml Net 3124.9 ml Physical Exam Constitutional: He appears well-developed and well-nourished. HENT: Head: Normocephalic and atraumatic. Mouth/Throat: No oropharyngeal exudate. Orally intubated. Neck: Neck supple. No JVD present. Cardiovascular: Regular rhythm, normal heart sounds and intact distal pulses. Exam reveals no gallop and no friction rub. No murmur heard. Tachycardic with rate in the 115-122 range. Pulmonary/Chest: He has no wheezes. Intubated and on mechanical ventilator support. Bilateral rhonchi. Diminished AE at the bas es bilaterally. Abdomina/Gl: He exhibits no mass. There is no guarding. Diminished bowel tone. Musculoskeletal: He exhibits edema (edema involving all the extremities and torso, 1+ in th e upper extremities and 2+ in the lower extremities bilaterally). He exhibits no tenderness. Neurological: Sedated. Skin: Skin is warm and dry. Rash noted. Scattered areas of ecchymosis and improving petechiae with few areas of violaceous rash on the right foot. Nursing note and vitals reviewed. DATA CBC: Lab Results Component Value Date WBC 22.95* 10/12/2015 RBC 2.63* 10/12/2015 HGB 7.3* 10/12/2015 HCT 22.6* 10/12/2015 MCV 85.8 10/12/2015 MCH 27.7 10/12/2015 MCHC 32.3 10/12/2015 RDW 50.3 10/12/2015 PLT 127* 10/12/2015 MPV 8.8 10/12/2015 DIFFTYPE MANUAL 10/12/2015 WBC: Lab Results Component Value Date WBC 22.95* 10/12/2015 NEUTABSMAN 19.96* 10/12/2015 NEUTROMAN 87 10/12/2015 LYMPHOABS 2.07 10/12/2015 LYMPHOMAN 9 10/12/2015 MONOABSMAN 0.46 10/12/2015 MONOMAN 2 10/12/2015 EOSINOABS 0.17 10/09/2015 EOSINOMAN 1 10/09/2015 PLTEST ADEQUATE 10/10/2015 BANDSPCT 2 10/12/2015 METAABS 0.28* 10/11/2015 METAPCT 1 10/11/2015 MYELOABS 0.17* 10/09/2015 MYELOPCT 1 10/09/2015 CMP: Lab Results Component Value Date NA 134* 10/12/2015 K 4.1 10/12/2015 CL 98* 10/12/2015 CO2 26 10/12/2015 ANIONGAP 14 10/12/2015 GLUF 175* 10/12/2015 BUN 43* 10/12/2015 CREATININE 4.0* 10/12/2015 BCR 11 10/12/2015 CA 7.1* 10/12/2015 PROT 5.8* 10/12/2015 ALB 2.0* 10/12/2015 GLOB 3.6 10/01/2015 BILITOT 4.4* 10/12/2015 ALP 73 10/12/2015 AST 33 10/12/2015 ALT 18 10/12/2015 EGFR 19* 10/12/2015 Magnesium: Lab Results Component Value Date MG 2.4 10/12/2015 Phosphorus: Lab Results Component Value Date PHOS 3.6 10/12/2015 PT/INR: Lab Results Component Value Date PROTIME 10/07/2015 POOR QUALITY SPECIMEN FROM THE LINE DRAW, CHARGES CREDITED, PATIENT REDRAWN. INR 1.2 10/12/2015 PTT: Lab Results Component Value Date APTT 32 10/12/2015 TSH: Lab Results Component Value Date TSH 0.75 10/03/2015 URIC ACID: 11.4 as of 10/05/2015 ARTERIAL BLOOD GAS as of 10/12/2015: Results for YANG RIDLEY ( ) as of 10/12/2015 17:52 Ref. Range 10/12/2015 12:36 POC FIO2 Latest Units: % 40 POC TCO2 Latest Ref Range: 23-27 mEq/L 24 pH, Arterial Latest Ref Range: 7.350-7.450 7.450 pCO2 Latest Ref Range: 35-45 mmHg 33 (L) pO2 Latest Ref Range: 80-105 mmHg 137 (H) O2 Sat, Arterial Latest Ref Range: 95-98 % 99 (H) HCO3, Arterial Latest Ref Range: 22-26 mmol/L 23 POC BASE DEFICIT Latest Ref Range: 0.0-2.0 mmol/L 1 Medical Record Review: Reviewed extensively for this encounter. RADIOLOGIC: CXR as of 10/10/2015: FINDINGS: Interval placement of a percutaneous pigtail catheter over the left base repres enting insignificant decrease in size of left pleural effusion, now small. Unchanged small r ight pleural effusion seen. No pneumothorax seen. Unchanged bilateral patchy airspace opacit ies mixed with interstitial opacities, likely representing edema and/or pneumonia. Right-carlita ed central line and PICC line appears stable. Cardiomediastinal silhouette and osseous struc tures appear unremarkable. IMPRESSION: 1. Placement of a left-sided percutaneous pigtail catheter with significant decrease in s ize of left pleural effusion, now small. Chest w/o contrast as of 10/09/2015: FINDINGS: Significant interval decrease in size of right pleural effusion, now small. Moderate to lar ge left pleural effusion seen, slightly decreased in size. Moderate amount of consolidative dependent airspace opacities noted involving the lower lobes. In addition, predominantly cav itary with few airspace opacities noted, with a predominantly peripheral distribution. These appear essentially unchanged. No pneumothorax. Interval placement of a dialysis catheter the tip of which is located at the SVC/right atri al junction. Right-sided PICC line tip is located in the lower SVC. No cardiomegaly. Trace p ericardial effusion. No definite enlarged mediastinal or hilar lymph nodes by CT size criter ia seen within limits of unenhanced technique. Visualized thyroid appears unremarkable. No a cute or destructive osseous process seen. Visualized unenhanced liver appears grossly unrema rkable. Anterior spleen demonstrates a wedge-shaped hypodensity seen on series 3, image 48 m easuring 4.4 cm x 1.7 cm in size, suspected to represent a splenic infarct. This was not def initively seen on the prior examination. IMPRESSION: 1. Significant interval decrease in size of right pleural effusion, now small. Moderate t o large left pleural effusion appears slightly decreased in size. Associated consolidative o pacity seen involving the lower lobes, likely representing pneumonia or atelectasis. 2. Essentially unchanged appearance of numerous bilateral cavitary lesions or airspace op acities 3. Wedge-shaped hypodensity in the anterior spleen, suspicious for an infarct. CARDIOGRAM as of 10/07/2015: INDICATIONS: Infective Endocarditis. FINDINGS: ECG rhythm: Sinus rhythm. Study: A 2-dimensional transthoracic echocardiogram with m-mode, spectral and color flow Do ppler was perfomed. Study: This was a technically adequate study. Left Ventricle: Overall left ventricular systolic function is normal with, an EF between 60 - 65 %. Left Ventricle: Left Ventricle ejection fraction by m-mode measures 82%. Left Ventricle: The left ventricle cavity size is normal. Left Ventricle: Left ventricular wall thickness is normal. Right Ventricle: The right ventricle is normal in size. Right Ventricle: The right ventricular systolic function is normal. Left Atrium: The left atrial size is normal Left Atrium: , and the LA measures 3.4cm. Right Atrium: The right atrial size is normal Right Atrium: , and the RA measures 3.0cm. IMPRESSION: 1. There is mild pulmonary hypertension. 2. Moderate sized, mobile vegetation attached to the septal tricuspid valve leaflet. PROBLEM LIST Principal Problem: Sepsis (HCC) Active Problems: Hyposmolality and/or hyponatremia MARCEL (acute kidney injury) (HCC) Leucocytosis Thrombocytopenia (HCC) Toxic metabolic encephalopathy Acute respiratory failure with hypoxia (HCC) Heroin abuse Methamphetamine abuse Tobacco abuse Acute septic pulmonary embolism (HCC) Acute infective endocarditis Moderate protein-calorie malnutrition (HCC) @[email or web address]@ ASSESSMENT & PLAN 1. MARCEL/ ARF: note continued worsening azotemia. Initial MARCEL probably hemodynamic in nature. However, now that Cr worsened,consideration of other etiologies and/or second hit injury including post infectious GN, AIN and or Vancomycin associated nephrotoxicity. Note low C3; C4 and ASO are normal; no urine eosinophils report available and UA reveals marked hematuri a without RBC casts. Possibility of post infectious (Staph) GN also entertained, though the actual management would still be treatment of the infection. The need for kidney biopsy is s till high as it may contrast the possible 3 DDx as noted above. Note significant hypoalbumin emia and third space volume loss. Patient on Vancomycin with elevated levels as of 6. Now off Vancomycin but kidney function continues to decline even with the dialysis. Results for YANG RIDLEY ( ) as of 10/12/2015 17:52 Ref. Range 10/01/2015 19:35 10/02/2015 03:30 10/03/2015 03:45 10/04/2015 04:40 10/05/2015 04:19 10/06/2015 04:03 10/06/2015 18:46 10/07/2015 05:34 10/08/2015 04:16 10/09/2015 03:26 10/10/2015 0 4:43 10/11/2015 04:54 10/12/2015 03:21 BUN Latest Ref Range: 8-25 mg/dL 75 (H) 70 (H) 65 (H) 78 (H) 97 (H) 115 (H) 68 (H) 77 (H) 5 8 (H) 51 (H) 43 (H) 46 (H) 43 (H) CREATININE Latest Ref Range: 0.70-1.30 mg/dL 1.9 (H) 1.5 (H) 1.2 1.6 (H) 2.9 (H) 3.9 (H) 2. 9 (H) 3.8 (H) 3.9 (H) 4.3 (H) 4.6 (H) 4.8 (H) 4.0 (H) BUN/CREAT Unknown 39 47 54 49 33 29 24 20 15 12 9 10 11 - Had dialysis holiday today. Will dialyze patient tomorrow morning with the SLEDD protocol . Will use dialysate bath 3K+, 2.5Ca, 35Bicarb and 138Na+. Goal UF today ~3Kg as tolerated. See detailed orders. - Renal diet with 2gm Na+, 2gm K+, 1gm Phos, 1.2g protein/Kg body weight per day; total ramiro ories 4517-6841 Kcal/day. Dietary consult may assist to identify caloric needs. May need to commence feeding now as TPN or by NGT as tolerated. - Daily weights and strict I/O's. Okay with cautious IVF likely with NS. - Adjust dose of medications including antibiotics to estimated GFR ~10ml/min or ESRD dose regimen. - Avoid NSAIDs (including FRASER 2 inhibitors) and iodine contrast agents. - Avoid use of Magnesium and aluminum containing antacids. - Avoid use of Magnesium or phosphorus containing laxatives. - Get uric acid, phos, mag, CMP and CBC today and as needed. 2. Acute respiratory failure requiring intubation and mechanical ventilator support. Todd cedeno critically ill and in guarded state. - Car per the piercing artist. 3. Lytes/bone: - Na+: Improved and stable. Will maintain with appropriate dialysate Na+ bath to maintain s seth Na+ level WAL. - K+: Stable. Maintain with dialysate 3K+ bath. Monitor closely. - PO4: Stable. Not having any meaningful intake lately. Will monitor closely. - Bicarb: Stable. Will maintain with appropriated dialysate bicarbonate bath. 4. BP control: BP control is acceptable. Avoid further hypotension. Continue pressor jones pport with UF on HD.Will decrease dialysate temp to 35.7C and may give up to 4 amps of iv albumin early during dialysis to enhance UF. 5. Anemia mangement: Hb is <8. Recent TSat 42%. - Will continue Epogen as needed with dialysis TIW to maintain HGB between 10-12g/dL. No Ep ogen today. Will give Epogen 90120 units iv tomorrow with dialysis. 6. Thrombocytopenia likely due to sepsis and or AIN. Patient also with ?nose bleed or bleed ing in the mouth. Auto Dealer to f/u. 7. 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 ID following. Case and care plan discussed with the piercing artist and intensive care team. Will continue HD /SLEDD as ordered. Time spent on this encounter: 45 minutes of CCT of which about 50% was dedicated to discuss ion of case and care plan with the piercing artist and intensive care team and coordination of a cute dialysis treatment. Dr. Vora to cover me from 08:00Hrs on 10/13/2015. Disposition: Possible to a care facility for continued antibiotic treatment. Code Status: Full Code ADARSH CREWS MD 10/12/2015 onversion Transac tion, Provider Unknown - 10/12/2015 5:39 PM PDTFormatting of this note might be different f rom the original. Progress Notes by Jer Lewis at 10/12/15 173 Author: Jer Lewis Service: (none) Author Type: Manager Hair Filed: 10/12/15 1745 Date of Service: 10/12/151738 Status: Signed Bisque Brusher: Jer Lewis (Manager Hair) Pt sleeping. Per nurse, family was here earlier. Per nurse, pt highly sedated for now. Chp Jer Lewis, p Microbiological Lab Technician Raciel Cunha onver patti Transaction, Provider Unknown - 10/12/2015 5:31 PM PDT Progress Notes by Ana Garnett RD, CD at 10/12/15 1739 Author: Ana Garnett RD, ELMO Service: (none) Author Type: Registered Dietitian Filed: 10/12/15 1731 Date of Service: 10/12/15 173 Status: Signed Bisque Brusher: Ana Garnett RD, ELMO (Registered Dietitian) 10/12/15 4987 Subjective Timepoint Follow up (moderate-high risk) Pt c/o Pt required intubation this afternoon. Received HD yesterday. Appetite has been very poor. Fluid / Beverage Intake Oral Fluids Amount NPO. Was taking sips of liquids ad radha. Liquid Meal Replacement or Supplement Had been receiving Novasource Renal TID but was not d rinking any per RN report. Food Intake Amount of Food Intake has been very minimal. Ate only about 5% of breakfast this AM. Type of Food / Meals Currently NPO. Was on a renal diet. Parenteral Nutrition Intake Rate/Solution Propofol is running at 6.5 mL/hr which provides approximately 172 kcal/day. Nutrition-Focused Physical Findings Body Language 1+ left upper extremity edema and 2+ bilateral lower extremity edema noted. Digestive System (Mouth to Rectum) Pt has sore on his lips and mouth. Cultures being sent. Anthropometrics Weight change Based on wt taken yesterday, wt is down about 4.9 kg from admit wt. I/Os josh khanh that pt is approximately 0.8 L fluid positive. Suspect pt has lost a significant amount of LBM with catabolic illness and poor nutrition. Will continue to monitor trend and adjust nutrition goals accordingly. Biochemical data, medical tests, and procedures reviewed Biochemical data, medical tests, and procedures reviewed Na 134 (L), BUN 43 (H), Cr 4 (H) - on HD per nephrology. BG has been variable in the 100s. Recommendations Recommended energy needs Initiate TF of Novasource Renal with goal rate of 50 mL/hr. Assumi ng 20-hour/day continuous delivery, this will provide 2000 kcal, 91 g protein, 1000 mL total volume, and 717 mL free water. Overall, TF plus Propofol will provide 2172 kcal and 91 g pr otein which supplies 31 kcal/kg and 1.3 g protein/kg. Will continue to monitor clinical cour se and f/u with further nutrition recs as indicated. Recommended mineral needs Pt may be at risk for refeeding syndrome given very poor nutritio n for at least the past week. Closely monitor electrolytes (K+, Mg, Phos) and replace to WNL as needed if levels drop. TF should be cautiously advanced if refeeding syndrome is evident . Nutritional Risk Nutritional risk High Follow up date 10/15/[address], CD, [facility] 10/12/2015 onver patti Transaction, Provider Unknown - 10/12/2015 10:43 AM PDT Case Management by SAMEERA Huggins at 10/12/15 1043 Author: SAMEERA Huggins Service: (none) Author Type: Fuse Assembler Filed: 10/12/15 1047 Date of Service: 10/12/15 104 Status: Signed Bisque Brusher: SAMEERA Huggins (Fuse Assembler) Attended morning rounds. Alert and oriented. Room air. Chest tubes removed over the weekend . Very weak. On dialysis. Poor appetite and sores all over his mouth and body. Pt is not a c andidate for out pt IV abx. Placement will be difficult. Marylou Fermin ARNP - 10/12/2015 10:42 AM PDTFormatting of this note might be different fr om the original. Progress Notes by YAIR Gambino at 10/12/15 1042 Author: YAIR Gambino Service: Auto Dealer Author Type: Advanced Registere d Nurse Practitioner Filed: 10/12/15 1845 Date of Service: 10/12/15 104 Status: Signed Bisque Brusher: YAIR Gambino (Advanced Registered Nurse Practitioner) [facility] Service: Auto Dealer Progress Note Yang Ridley 30 y.o. Hospital Day: LOS: 11 days Post-Op Day: * No surgery found * Consulting Physicians Treatment Team: Consulting Physician: Chris Swann DO Consulting Physician: Renetta Buck MD Consulting Physician: Gonzalez Bhardwaj MD Surgeon: Blanca Arias MD Consulting Physician: Blanca Arias MD Admitting Provider: Carly Thomas DO SUBJECTIVE Patient Summary: The patient is a 30 y.o. male with significant history of tobacco an d drug abuse using daily heroin and methamphetamine, also on Suboxone. He initially presen latasha to [facility] for progressive weakness, lethargy, and generalized pain (most ly his chest, neck, back, knees, ankles and toes) for 7 days. According to his girlfriend, he was feeling sick and febrile for a week with poor PO intake; she also noticed that his an kles and right knee were swollen but not warm or erythematous, and he seemed to be "halluinc ating and talking to himself". Exam at OSH was significant for point tenderness at the area of the cervical spine and posi tive Kernig's sign. LP was performed to rule out meningitis. IV antibiotics started, ceftria xone 2 gm and vancomycin [address] head and C-spine x-ray performed, MRI attempted but patient decompensated and was intubated for respiratory failure and airway protection. Significant labs: Na 114 (1435 hrs), BUN 81, Crea 2.48, WBC 19.9, Hb 11.6, Plt 51, Tbili 3. 6, AST 188, ALT 155, LA 1.7. CSF: clear, colorless, WBC 0, RBC 3. Transferred to [facility] for further care. Timeline: Evaluated by Nephrology, acute renal failure attributed to hemodynamics. Evaluated by Dr. Bhardwaj from orthopedics: Does not think patient has ankle septic joint and does not recom mend surgical intervention. Echocardiogram showed moderate size mobile vegetation attached to the septal tricuspid valv e leaflet, moderate tricuspid regurgitation, moderate pulmonary hypertension with mildly enl arged right ventricle. Evaluated by CTS, surgery not recommended On 10/01, extubated. MRI spine w/o evidence abscess On 10/02, he was transferred out of the ICU. 10/04-Transferred to ICU for worsening mental status, drop of Na from 122 to 117 and worseni ng renal function 10/05-HD line placed, started on dialysis. Right pigtail chest tube with drainage of 1400 ml serosanguineous exudate 10/06-Dialysis session. Improved encephalopathy. Anxiety requiring high dose precedex. 10/07-Right pigtail chest catheter removed 10/08-dialysis again today, 3L removed; Cxr with bilateral effusions which appear to be abou t the same as yesterday; will repeat CT chest to evaluate further; continues to be anxious, c/o pain 10/09-dialysis again today, 3.5L removed, now with left pleural chest catheter placed overni ght, immediately drained 850cc, only 50cc during the day today; intermittent fevers, tachyca rdia persists; add seroquel BID 10/10--dialysis again today with anticipated 2.5L removal; L pleural chest catheter removed, f/u Cxr in 1 hour; if no issues post dialysis and f/u cxr will transfer to acute care bed 10/11--worsening hypoxia, tachypnea, and associated tachycardia so electively re-intubated Overnight events: anxiety and pain less, still spiking temps, tachycardic OBJECTIVE VITAL SIGNS Temp: [97.5 F (36.4 C)-101.1 F (38.4 C)] 97.5 F (36.4 C) Heart Rate: [127-152] 141 Resp: [32-54] 42 BP: (107-132)/(64-97) 124/97 mmHg Intake/Output Summary (Last 24 hours) at 10/12/15 1042 Last data filed at 10/12/15 0812 Gross per 24 hour Intake 5963 ml Output 3505 ml Net 2458 ml EXAM GEN: awake, oriented to person, place and time NEURO: PERRLA, no facial asymmetry, moves all extremities well GCS: 15 HEENT: sclerae clear, nonicteric, oral mmm, dried blood noted, ? Herpetic lesions NECK: supple, trachea midline HEART: Sinus tachycardia 140's, S1/S2, +murmur LUNGS: tachypneic, scattered rhonchi bilaterally , no wheezing, or rales, symmetric chest e xpansion, Labored and shallow respirations ABD: soft, nondistended, nontender to palpation, no masses, no hepatosplenomegaly EXTR: edema all extremities, no clubbing or cyanosis SKIN: diffuse purpuric palpable rash bilateral anterior lower extremities, also hand and fe et. LINES/TUBES: Right UE PICC, right IJ CVC 10/05 DATA Recent Labs Lab 10/12/15 0321 10/11/15 1641 10/11/15 0853 WBC 22.95* 28.11* 30.41* RBC 2.63* 2.92* 3.16* HGB 7.3* 7.9* 8.8* HCT 22.6* 24.7* 26.5* MCV 85.8 84.4 83.9 MCH 27.7 27.1 27.7 MCHC 32.3 32.1 33.0 RDW 50.3 48.6 47.3 PLT 127* 149* 169 MPV 8.8 7.9 8.0 BANDSABS 0.46* 0.84* 1.52* MORPH RBC AND PLT MORPHOLOGY APPEAR NORMAL 1+ RBC AND PLT MORPHOLOGY APPEAR NORMAL Recent Labs Lab 10/12/15 0321 10/11/15 0454 10/10/15 1846 10/10/15 0530 10/10/15 0443 NA 134* 130* -- -- 133* K 4.1 4.4 4.4 -- 4.4 CL 98* 95* -- -- 94* CO2 26 27 -- -- 30 ANIONGAP 14 12 -- -- 14 GLUF 175* 171* -- -- 172* BUN 43* 46* -- -- 43* CREATININE 4.0* 4.8* -- -- 4.6* BCR 11 10 -- -- 9 CA 7.1* 7.1* -- -- 6.7* ALB 2.0* 1.6* -- -- 1.7* PROT 5.8* 6.0* -- -- 6.1* BILITOT 4.4* 4.1* -- 5.8* 5.9* ALT 18 19 -- -- 19 AST 33 26 -- -- 27 EGFR 19* 15* -- -- 16* PHOS 3.6 5.3* 4.4 -- 6.2* MG 2.4 2.6* 2.7* -- 2.6* Recent Labs Lab 10/12/15 0321 10/11/15 1641 10/11/15 0853 INR 1.2 2.4 2.1 IMAGING XR CHEST 1 VIEW 10/11/2015 11:53 AM INDICATION: Removal of chest tube. COMPARISON: October 11, 2015 TECHNIQUE: Chest 1 view, AP view of the chest FINDINGS: Interval removal of left chest tube. No pneumothorax. Bilateral patchy consolidation and cavitary lesions consistent with septic emboli/infection . Upper mediastinal contours are normal. Heart size is unchanged. Right internal jugular cent ral venous catheter tip within the right atrium. No acute osseous abnormality. IMPRESSION: Interval removal of left chest tube. No pneumothorax. Other findings as above XR CHEST 1 VIEW 10/09/2015 7:56 AM History: 30 years. Male. Numerous septic pulmonary emboli identified on chest CT 09/17 07/03. Bilateral pleural effusions. Follow-up exam. Technique: AP portable upright technique was performed at 0755 hours. Comparison: 10/08/15 Findings: A moderate LEFT pleural effusion is again visualized with pleural density measu ring approximately 16 mm in thickness at the lateral midportion of the LEFT chest, unchanged . Partial atelectasis of the LEFT lower lobe is due to pleural effusion. A smaller RIGHT pleural effusion still present with obscuration of the RIGHT hemidiaphragm. Mild atelectasis of the RIGHT lower lobe is also present. Nodular densities with central lucencies are again visualized throughout both lung barry, consistent with numerous small pulmonary septic emboli. Mild groundglass infiltrate is aga in visualized throughout the aerated portion of the LEFT lung. The cardiac volume is normal. The pulmonary vasculature is obscured. A persistent RIGHT internal jugular dialysis catheter is visualized with its tip at the theresa ction of the superior vena cava and RIGHT atrium. A RIGHT brachial central venous PICC sushma e is present with the tip at the junction of the superior vena cava and right atrium, in goo d position. IMPRESSION: 1. No significant change as compared with 10/08/15. 2. Moderate LEFT and mild RIGHT pleural effusions. 3. Numerous nodular densities throughout both lung barry representing normal pulmonary s eptic emboli. 4. Persistent mild alveolar infiltrate of the LEFT lung, unchanged. 5. Satisfactory position of life-support catheters. Echo Impression 1. LV size, wall thickness and systolic function are normal, with an EF of 60%. 2. The diastolic filling pattern indicates impaired relaxation consistent with mild dysfunc tion (Grade I). 3. The right ventricle is mildly enlarged, but right ventricular systolic function is dorothy l. 4. Moderate tricuspid regurgitation present. 5. There is moderate pulmonary hypertension. The right ventricular systolic pressure (pu lmonary artery systolic pressure), as measured by Doppler, is 50.27mmHg. 6. Moderate sized, mobile vegetation attached to the septal tricuspid valve leaflet. Microbiology data: 09/27 blood cultures obtained from [facility] are growing MSSA from 3 out of 3 bottles CSF culture result has not yet been faxed but per personnel from [place] microbiology, no growth 09/30 blood cultures with no growth to date 09/30 MRSA nasal PCR negative 09/30 tracheal aspirate culture grew 3+ MSSA 10/03 urine culture with no growth PROBLEM LIST Principal Problem: Sepsis (HCC) Active Problems: Hyposmolality and/or hyponatremia MARCEL (acute kidney injury) (HCC) Leucocytosis Thrombocytopenia (HCC) Toxic metabolic encephalopathy Acute respiratory failure with hypoxia (HCC) Heroin abuse Methamphetamine abuse Tobacco abuse Acute septic pulmonary embolism (HCC) Acute infective endocarditis Moderate protein-calorie malnutrition (HCC) ASSESSMENT & PLAN NEURO: Septic encephalopathy-Resolving CSF w/o growth from [facility] Continue remeron for anxiety/insomnia CV: Normotensive---d/c'd midodrine Tachycardia secondary to IE as well as anxiety, fluctuates from 110's to low 140's---mon itor; continue abx per ID, tylenol as needed, anti-anxiolytics PULM: Hypoxemic respiratory failure, worse today---Re-intubated today; ventilator mgmt and wea n, abg and cxr in a.m. Pulmonary septic embolic from MSSA tricuspid valve IE CT chest repeated 10/08--Right pleural effusion less s/p pigtail chest tube 10/05. Exudati ve by Lights criteria. PH, glucose not consistent with complicated infected effusion. Right pleural effusion s/p pigtail chest tube 10/05. Exudative by Lights criteria. PH, gl ucose not consistent with complicated infected effusion. Left pleural effusion minimal on be dside ultrasound (not amenable for thoracentesis) Left pleural effusion, much improved s/p pigtail catheter placed 10/08, immediately drain ed 850cc---removed (10/10) GI/NUTRITION: Severe malnutrition secondary to infectious process Renal diet Mild Transaminitis (resolved) with elevated bilirubin- Trending down, likely sepsis rela latasha . Hepatitis serologies and HIV negative. Continue to monitor. RENAL/LYTES: MARCEL. Anuric requiring HD. ATN vs C3 staph induced glomeurlonephritis. UA with hematuria. C3 low. C4 wnl. Low C3 likely from MSSA infectious process, but juan carlos l biopsy unlikely to alter management Unlikely AIN. Urine eosinophils negative Hepatitis serologies and HIV negative. Consider HCV RNA Hyponatremia-resolving. Cortisol and TSH wnl HD placed, started on dialysis 10/05 ID: MSSA tricuspid valve endocarditis/Leukocytosis/febrile---. Bedside ultrasound shows tric uspic posterior leaflet involvement on RV inflow view and septal leaflet involvement seen on 4C view---Followed by ID, on nafcillin Oral lesions, ? Herpetic---send HSV swab HEME: Platelets stable Anemia-Multifactorial, cannot exclude hemolysis. Required blood transfusion 10/06 (2 unit s PRBC); 1 unit given 10/09. Continue to monitor ENDO: Monitor BS MUSC/SKIN: Vasculitis from IE/sepsis PROPHYLAXIS: Stress ulcer prophylaxis: on PPI DVT prophylaxis: Heparin SC VAP bundle: N/A Disposition: Critical care plan as above Code Status: Full Code *Please bill 45 minutes of critical care time spent evaluating the patient, reviewing the d michael and formulating a plan exclusive of all other procedures. YAIR GAMBINO 10/12/2015 10:42 AM onversio n Transaction, Provider Unknown - 10/12/2015 8:16 AM PDTFormatting of this note might be di fferent from the original. Therapy Progress Note by Abran Parrish PT at 10/12/15 0816 Author: Abran Parrish PT Service: (none) Author Type: Physical Therapist Filed: 10/12/151928 Date of Service: 10/12/15815 Status: Signed Bisque Brusher: Abran Parrish PT (Physical Therapist) 10/12/15 08 PT Last Visit PT Received On 10/12/15 Reason for Treatment Deconditioning Requires PT Follow Up Yes Follow up PT Only? Yes Assistance Required 2 person Precautions Other Precautions high fall risk Other Comments Comments Pt. is in bed. Not interested in mobilizing OOB however agreeable with encouragem ent. Pt.'s HR is in sinus tach 120-130s. He is able to stand w/ modA. Upon standing, LE s jolly-buckle however he is able to bear weight and take a few steps to the chair. He did not want to attempt any futher activity. He was left in the chair. Call light in reach. Pt. r eporting 12/27 pain. RN aware. Will continue to increase activity level as tolerated...pt. willing to participate Cognition Overall Cognitive Status Impaired Orientation Level Oriented Bed Mobility Supine to Sit Mod assist (BLEs OOB or trunk to upright) Scooting Moderate assist Transfers Sit to/from Stand Moderate assist (to arise OR lower);Maximal assist (to arise AND lower);S afety concerns Mobility Ambulation Assistance Moderate assist;Maximal assist Maximal Ambulation Distance (feet) 4 Total Ambulation Distance (feet) 4 Distance limited by? Patient's ability Pattern Decreased jaylin;Right swing foot doesn't pass stance foot;Left swing foot doesn't pass stance foot Assistive Device None Modalities Other Therapy ed & encouragement for importance of mobiltiy Activity Tolerance Activity Tolerance Patient limited by fatigue;Patient limited by pain Nurse Made Aware yes Plan Treatment/Interventions Continue per Primary PT POC Progress Slow progress, decreased activity tolerance Recommendation Recommendations Defer Chris Dinh DO - 10/12/2015 6:35 AM PDTFormatting of this note might be different from the gregory del angel. Progress Notes by Chris Swann DO at 10/12/1535 Author: Chris Swann DO Service: (none) Author Type: Physician Filed: 10/12/15807 Date of Service: 10/12/15634 Status: Signed Bisque Brusher: Chris Swann DO (Physician) [facility] Service: Infectious Disease Progress Note Hospital Day: LOS: 11 days Post-Op Day: * No surgery found * SUBJECTIVE Patient Summary: CC: Fever, chest pain and altered mental status From Auto Dealer's admission note on 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 male with significant history of tobacco and drug abuse using daily heroin and methamphetamine, also on Suboxone. He initially presented to [facility] for progressive weakness, lethargy, and ge neralized pain (mostly his chest, neck, back, knees, ankles and toes) for the past 7 days. H e noticed that his ankles and right knee were swollen but not warm or erythematous. Nessa g to his girlfriend, he has been feeling sick and febrile for the past week with poor PO int elisha. Yesterday, she noticed that he seemed like he was hallucinating and talking to himself. He was very weak today that she had to assist him to get into the car to go the the ED. Exam at OSH was significant for point tenderness at the area of the cervical spine and posi tive Kernig's sign. LP was performed to rule out meningitis. IV antibiotics started, ceftria xone 2 gm and vancomycin [address] head and C-spine x-ray performed, MRI attempted but patient decompensated and was intubated for respiratory failure and airway protection. Significant labs: Na 114 (1435 hrs), BUN 81, Crea 2.48, WBC 19.9, Hb 11.6, Plt 51, Tbili 3. 6, AST 188, ALT 155, LA 1.7. CSF: clear, colorless, WBC 0, RBC 3. Protein 31. Glucose 50. Culture with no growth to d ate Blood cultures are reported to be growing GPCs at [facility] Transferred to [facility] for further care. MRI of brain and spine carried out with limited findi ngs due to non-contrast study. Evaluated by Nephrology, acute renal failure attributed to hemodynamics. Evaluated by Dr. Bhardwaj from orthopedics: Does not think patient has ankle septic joint and does not recomme nd surgical intervention. Echocardiogram showed moderate size mobile vegetation attached to the septal tricuspid valv e leaflet, moderate tricuspid regurgitation, moderate pulmonary hypertension with mildly enl arged right ventricle. Evaluated by CTS, surgery not recommended On 10/01, extubated On 10/02, he was transferred out of the ICU. On 10/04, patient had worsening mental status and also became tachypneic. He became more hy ponatremic with worsening renal function. Bilateral moderate sized pleural effusions were n oted on chest CT scan. Bedside ultrasound with bilateral pleural effusion, R>L. Left minimal and without echogenic ity suggestive of infectious pleural effusion. Left effusion is moderate with fibrin strands concerning for complicated/infectious pleural effusion. Right pig tail chest tube placed wi th purulent drainage. Head CT scan negative On 10/05, started on hemodialysis On October 08, left chest tube was placed. CC: Staphylococcal sepsis, right-sided endocarditis Chart reviewed: No new events. Subjective The patient denies any pruritus or pain in his skin. Abdomen feels better today, able to ea t without difficulty. No fevers or chills. No cough, pleuritic chest pain or shortness of br eath. ROS No fever, chills sweats. No nausea, vomiting or diarrhea. No rashes or pruritis. No oral pa in. Scheduled Medications clonazePAM 1 mg Oral BID famotidine 20 mg Oral Daily gentamicin Topical Daily mirtazapine 15 mg Oral Nightly nafcillin 2 g Intravenous Q4H nystatin 5 mL Mouth/Throat 4x Daily polyethylene glycol 8.5 g Oral Daily QUEtiapine 25 mg Oral QAM QUEtiapine 50 mg Oral QPM sodium bicarbonate buffer 5 mL Infiltration Once sodium chloride 10 mL Intravenous 2 times per day sodium citrate anticoagulant 4 % 6 mL Intracatheter Daily Continuous Infusions PRN Medications acetaminophen OR acetaminophen, albumin human, albuterol, aluminum-magnesium hydroxide- simethicone, veosrubqmyBCUYN-iewbxb-odfqqzivq oral solution, HYDROmorphone, lip moisturizer, ondansetron OR ondansetron, promethazine, simethicone, sodium chloride, white petrolatu m OBJECTIVE Vital Signs: BP 116/78 mmHg | Pulse 127 | Temp(Src) 99 F (37.2 C) (Axillary) | Resp 43 | Ht 1.702 m (5' 7") | Wt 64.2 kg (141 lb 8.6 oz) | BMI 22.16 kg/m2 | SpO2 100% Temp: [97.5 F (36.4 C)-101.1 F (38.4 C)] 99 F (37.2 C) (10/11 0500) BP: (107-132)/(64-91) 116/78 mmHg (10/11 599) Heart Rate: [127-152] 127 (10/11 599) Resp: [30-54] 43 (10/11 599) SpO2: [93 %-100 %] 100 % (10/11 599) Weight: [64.2 kg (141 lb 8.6 oz)-65.3 kg (143 lb 15.4 oz)] 64.2 kg (141 lb 8.6 oz) (10/10 1407) Physical Exam Exam: Const: Vitals reviewed. No acute distress Skin: Numerous hyperemic skin lesions with central ecchymosis consistent with ecthyma gangr enosum ENT: No thrush. Lungs: CTAB, no rales or wheezes Heart: RRR, no murmur Abd: soft, NT, + bowel sounds Musculoskeletal: No gross deformity or active arthritis DATA CBC: Lab Results Component Value Date WBC 22.95* 10/12/2015 RBC 2.63* 10/12/2015 HGB 7.3* 10/12/2015 HCT 22.6* 10/12/2015 MCV 85.8 10/12/2015 MCH 27.7 10/12/2015 MCHC 32.3 10/12/2015 RDW 50.3 10/12/2015 PLT 127* 10/12/2015 MPV 8.8 10/12/2015 DIFFTYPE MANUAL 10/12/2015 WBC: Lab Results Component Value Date WBC 22.95* 10/12/2015 NEUTABSMAN 19.96* 10/12/2015 NEUTROMAN 87 10/12/2015 LYMPHOABS 2.07 10/12/2015 LYMPHOMAN 9 10/12/2015 MONOABSMAN 0.46 10/12/2015 MONOMAN 2 10/12/2015 EOSINOABS 0.17 10/09/2015 EOSINOMAN 1 10/09/2015 PLTEST ADEQUATE 10/10/2015 BANDSPCT 2 10/12/2015 METAABS 0.28* 10/11/2015 METAPCT 1 10/11/2015 MYELOABS 0.17* 10/09/2015 MYELOPCT 1 10/09/2015 CMP: Lab Results Component Value Date NA 134* 10/12/2015 K 4.1 10/12/2015 CL 98* 10/12/2015 CO2 26 10/12/2015 ANIONGAP 14 10/12/2015 GLUF 175* 10/12/2015 BUN 43* 10/12/2015 CREATININE 4.0* 10/12/2015 BCR 11 10/12/2015 CA 7.1* 10/12/2015 PROT 5.8* 10/12/2015 ALB 2.0* 10/12/2015 GLOB 3.6 10/01/2015 BILITOT 4.4* 10/12/2015 ALP 73 10/12/2015 AST 33 10/12/2015 ALT 18 10/12/2015 EGFR 19* 10/12/2015 Micro: No new culture data. Medical Imaging: This morning's CXR was viewed in PACS, shows scattered patchy infiltrates, no new findings. Radiology report pending. PROBLEM LIST Principal Problem: Sepsis (HCC) Active Problems: Hyposmolality and/or hyponatremia MARCEL (acute kidney injury) (HCC) Leucocytosis Thrombocytopenia (HCC) Toxic metabolic encephalopathy Acute respiratory failure with hypoxia (HCC) Heroin abuse Methamphetamine abuse Tobacco abuse Acute septic pulmonary embolism (HCC) Acute infective endocarditis Moderate protein-calorie malnutrition (HCC) ASSESSMENT & PLAN Gram-positive sepsis, MSSA tricuspid valve endocarditis -Patient has MSSA bacteremia, tricuspid valve endocarditis with septic pulmonary emboli re lated to IV drug use -Neck pain and back pain improved; noncontrast MRI of spine and brain on presentation show s no evidence of infection -No evidence of septic arthritis; evaluated by orthopedics -Blood cultures on admission here have no growth to date. PICC placed. Central line sedrick pina -CT scan performed on October 08 confirmed continued pleural effusion on the left, appreciate chest tube placement. Fevers have improved. Continue nafcillin 2 g IV q4 hours. Encephalopathy, metabolic -Appears to be improving, we will continue to monitor. Acute hypoxemic respiratory failure -Extubated, appears stable, will monitor. MARCEL -No adjustment needed for nafcillin. Hope to avoid synergistic gentamicin. Abnormal LFTs -Resolved. Petechial/purpuric rash -Suspect ecthyma. Slightly better today. IV drug use -Not a candidate for outpatient IV antibiotics. HIV negative. Code Status: Full Code CHRIS SWANN DO 10/12/2015 onversion Transaction , Provider Unknown - 10/11/2015 3:21 PM PDT Therapy Progress Note by Omid Menjivar PT at 10/11/15 1521 Author: Omid Menjivar PT Service: (none) Author Type: Physical Therapist Filed: 10/11/15 1616 Date of Service: 10/11/15 1521 Status: Signed Bisque Brusher: Omid Menjivar PT (Physical Therapist) 10/11/15 1521 PT Last Visit PT Received On 10/11/15 Reason for Treatment Deconditioning Requires PT Follow Up Yes Follow up PT Only? Yes Assistance Required 2 person Precautions Other Precautions high fall risk Other Comments Comments pt. supine in bed when PT arrived and agreeable to PT, pt needed to use the restro om so rolled pt. his R with Min A, bed park placed and pt. given urnial. pt. rolled agian wi th Min A for erasto care and removal of bed park. supine to sit Mod A, pt. sat EOB for couple of minutes and HR was tachy (nurse in room during complete session) and nurse reports this i s where he has been with movement all day. sit to stand first attempt was max A but knees b uckled and pt. sat back down on bed. Second attempt PT blocked pt's knees bilaterally and pt. stood with Max A, pt then took 4 side steps and then turned to sit in recliner chair. pt. at end of session was tachy cardiac at 157 BPM, but did go down to 120's after a minute sitting in the chair. pt. sitting in recliner at end of session with call light in reach. Cognition Overall Cognitive Status JEANETTE Orientation Level JEANETTE Comments pt. followed directions Bed Mobility Supine to Sit Mod assist (BLEs OOB or trunk to upright) Scooting Moderate assist Transfers Sit to/from Stand Maximal assist (to arise AND lower) (x 2 attempts, 2nd attempt block knees B) Bed to/from Chair Maximal assist (to arise AND lower) Mobility Weight Bearing Status WBAT RLE;WBAT LLE Ambulation Assistance Maximal assist Maximal Ambulation Distance (feet) 4' Total Ambulation Distance (feet) 4' Distance limited by? Patient's ability Pattern Decreased jaylin;Right swing foot doesn't pass stance foot;Left swing foot doesn't pass stance foot Assistive Device (therapist in front) Static Sitting Balance Static Sitting-Balance Support No upper extremity support Static Sitting-Level of Assistance Minimal assist Modalities Other Therapy ed. on safe mobility Activity Tolerance Activity Tolerance Patient limited by fatigue Nurse Made Aware yes Plan Treatment/Interventions Continue per Primary PT POC Progress Progressing toward goals Recommendation Recommendations Defer Recommendation Comments needs formal gait assessment Adarsh Mackey MD - 10/11/2015 1:18 PM PDT Progress Notes by Adarsh Crews MD at 10/11/15 5023 Author: Adarsh Crews MD Service: Nephrology Author Type: Physician Filed: 10/11/15 9284 Date of Service: 10/11/15 3450 Status: Signed Bisque Brusher: Adarsh Crews MD (Physician) [facility] Service: Nephrology Progress Note Hospital Day: LOS: 10 days Post-Op Day: * No surgery found * SUBJECTIVE Patient Summary: Reviewed medical records expensively. The patient is a 30 y.o. male with significant history of tobacco and drug abuse using daily heroin and methamphetamine, also on Suboxone. He initially presented to [facility] for progressive weaknes s, lethargy, and generalized pain for the past 7 days. He noticed that his ankles and right knee were swollen but not warm or erythematous. According to his girlfriend, he has been fee ling sick and febrile for the past week with poor oral intake. LP was performed to rule out meningitis. IV antibiotics started, ceftriaxone 2 gm and vancomycin [address] head and C-spine x-ray performed, patient decompensated and was intubated for respiratory failure and airway protection and admitted to the ICU. Significant labs on initial presentation : Na 114 (1435 hrs), BUN 81, Crea 2.48, Over next 12-24 hrs, his sodium abruptly improved to a peak of126 by 6 AM on 10/01, so c ounter measures were started to avoid over correction. Patient received DDAVP X2 X 2 MCG AT 4 AND 8 AM ON 10/01 and is on D5W AT 200 ML/HR. He has never been hospitalized because of low sodium. He has never been symptomatic because of low sodium. There are no herbal preparation intake; he does not have hx of liver cirrhos is. He does not have hx of CHF, hypothyroidism or adrenal insufficiency.There is no hx of ch ronic diarrhea and no N/V. Events Overnight: Remains stable except for tachyarrhythmia with rate in the 130s-140 s. Reports chest pain. Had CT chest that showed worsening left pleural effusion and improved right pleural effusion after right chest tube placement and draining of ~2L of serosanguine ous fluid. Left chest tube placed and drained bloody effusion. Both tubes are now removed. Afshan shaw reported that he had ~20mg of bloody urine this morning. Denies pain, nausea, vomiting. Attending and fairly tolerating HD via the SLEDD protocol now. BP stable. HR in the 130s-14 0s. Serum Na+ improved and stable. Still severely oligo-anuric. CXR this morning showed impr dorothy right and minimal left pleural effusion. Reviewed labs and medical records. Note worsen ing azotemia. Had one unit blood transfusion yesterday. Had 2 units PRBC last Monday. Scheduled Medications albuterol 1.25 mg Nebulization Q6H clonazePAM 1 mg Oral BID famotidine 20 mg Oral Daily gentamicin Topical Daily heparin (porcine) 5000 unit/0.5mL 5,000 Units Subcutaneous 3 times per day mirtazapine 15 mg Oral Nightly nafcillin 2 g Intravenous Q4H polyethylene glycol 8.5 g Oral Daily QUEtiapine 25 mg Oral QAM QUEtiapine 50 mg Oral QPM sodium bicarbonate buffer 5 mL Infiltration Once sodium chloride 0.9 % sodium chloride 10 mL Intravenous 2 times per day sodium citrate anticoagulant 4 % 6 mL Intracatheter Daily Continuous Infusions PRN Medications acetaminophen OR acetaminophen, albumin human, aluminum-magnesium hydroxide-simethicone , oikudadgslFDSKW-aqfhxz-jctrbmjip oral solution, HYDROmorphone, lip moisturizer, ondansetro n OR ondansetron, promethazine, simethicone, sodium chloride, white petrolatum OBJECTIVE Vital Signs: BP 126/77 mmHg | Pulse 138 | Temp(Src) 100 F (37.8 C) (Axillary) | Resp 30 | Ht 1.702 m (5' 7") | Wt 65.3 kg (143 lb 15.4 oz) | BMI 22.54 kg/m2 | SpO2 99% Temp: [97.5 F (36.4 C)-101.1 F (38.4 C)] 100 F (37.8 C) (10/10 1245) BP: (97-130)/(66-92) 126/77 mmHg (10/10 1300) Heart Rate: [123-152] 138 (10/10 1300) Resp: [29-49] 30 (10/11 647) SpO2: [94 %-99 %] 99 % (10/11 647) Weight: [65.3 kg (143 lb 15.4 oz)] 65.3 kg (143 lb 15.4 oz) (10/11 647) Intake/Output Summary (Last 24 hours) at 10/11/15 1318 Last data filed at 10/11/15 0935 Gross per 24 hour Intake 1053 ml Output 230 ml Net 823 ml Physical Exam Constitutional: He is oriented to person, place, and time. He appears well-developed and we ll-nourished. HENT: Head: Normocephalic and atraumatic. Mouth/Throat: No oropharyngeal exudate. Blood crusts in the nostrils and mouth. Eyes: Conjunctivae are normal. No scleral icterus. Neck: Neck supple. No JVD present. Cardiovascular: Regular rhythm, normal heart sounds and intact distal pulses. Exam reveals no gallop and no friction rub. No murmur heard. Tachycardic with rate in the 115-122 range. Pulmonary/Chest: He is in respiratory distress (mild, improved from yesterday). He has no w heezes. He has rales. Abdomina/Gl: Bowel sounds are normal. He exhibits no mass. There is no guarding. Firm, non tender. Musculoskeletal: He exhibits edema (edema involving all the extremities and torso, 1-2+ in the upper extremities and 1+ in the lower extremities). He exhibits no tenderness. Neurological: He is alert and oriented to person, place, and time. More awake this morning. Moves all extremities bilaterally. Skin: Skin is warm and dry. Rash noted. Scattered areas of ecchymosis and improving petechiae with few areas of violaceous rash on the right foot. Psychiatric: He has a normal mood and affect. Nursing note and vitals reviewed. DATA CBC: Lab Results Component Value Date WBC 30.41* 10/11/2015 RBC 3.16* 10/11/2015 HGB 8.8* 10/11/2015 HCT 26.5* 10/11/2015 MCV 83.9 10/11/2015 MCH 27.7 10/11/2015 MCHC 33.0 10/11/2015 RDW 47.3 10/11/2015 PLT 169 10/11/2015 MPV 8.0 10/11/2015 DIFFTYPE MANUAL 10/11/2015 WBC: Lab Results Component Value Date WBC 30.41* 10/11/2015 NEUTABSMAN 24.94* 10/11/2015 NEUTROMAN 82 10/11/2015 LYMPHOABS 3.04 10/11/2015 LYMPHOMAN 10 10/11/2015 MONOABSMAN 0.61 10/11/2015 MONOMAN 2 10/11/2015 EOSINOABS 0.17 10/09/2015 EOSINOMAN 1 10/09/2015 PLTEST ADEQUATE 10/10/2015 BANDSPCT 5 10/11/2015 METAABS 0.30* 10/11/2015 METAPCT 1 10/11/2015 MYELOABS 0.17* 10/09/2015 MYELOPCT 1 10/09/2015 CMP: Lab Results Component Value Date NA 130* 10/11/2015 K 4.4 10/11/2015 CL 95* 10/11/2015 CO2 27 10/11/2015 ANIONGAP 12 10/11/2015 GLUF 171* 10/11/2015 BUN 46* 10/11/2015 CREATININE 4.8* 10/11/2015 BCR 10 10/11/2015 CA 7.1* 10/11/2015 PROT 6.0* 10/11/2015 ALB 1.6* 10/11/2015 GLOB 3.6 10/01/2015 BILITOT 4.1* 10/11/2015 ALP 72 10/11/2015 AST 26 10/11/2015 ALT 19 10/11/2015 EGFR 15* 10/11/2015 Magnesium: Lab Results Component Value Date MG 2.6* 10/11/2015 Phosphorus: Lab Results Component Value Date PHOS 5.3* 10/11/2015 PT/INR: Lab Results Component Value Date PROTIME 10/07/2015 POOR QUALITY SPECIMEN FROM THE LINE DRAW, CHARGES CREDITED, PATIENT REDRAWN. INR 2.1 10/11/2015 PTT: Lab Results Component Value Date APTT 39* 10/01/2015 TSH: Lab Results Component Value Date TSH 0.75 10/03/2015 URIC ACID: 11.4 as of 10/05/2015 Medical Record Review: Reviewed extensively for this encounter. RADIOLOGIC: CXR as of 10/10/2015: FINDINGS: Interval placement of a percutaneous pigtail catheter over the left base repres enting insignificant decrease in size of left pleural effusion, now small. Unchanged small r ight pleural effusion seen. No pneumothorax seen. Unchanged bilateral patchy airspace opacit ies mixed with interstitial opacities, likely representing edema and/or pneumonia. Right-carlita ed central line and PICC line appears stable. Cardiomediastinal silhouette and osseous struc tures appear unremarkable. IMPRESSION: 1. Placement of a left-sided percutaneous pigtail catheter with significant decrease in s ize of left pleural effusion, now small. Chest w/o contrast as of 10/09/2015: FINDINGS: Significant interval decrease in size of right pleural effusion, now small. Moderate to lar ge left pleural effusion seen, slightly decreased in size. Moderate amount of consolidative dependent airspace opacities noted involving the lower lobes. In addition, predominantly cav itary with few airspace opacities noted, with a predominantly peripheral distribution. These appear essentially unchanged. No pneumothorax. Interval placement of a dialysis catheter the tip of which is located at the SVC/right atri al junction. Right-sided PICC line tip is located in the lower SVC. No cardiomegaly. Trace p ericardial effusion. No definite enlarged mediastinal or hilar lymph nodes by CT size criter ia seen within limits of unenhanced technique. Visualized thyroid appears unremarkable. No a cute or destructive osseous process seen. Visualized unenhanced liver appears grossly unrema rkable. Anterior spleen demonstrates a wedge-shaped hypodensity seen on series 3, image 48 m easuring 4.4 cm x 1.7 cm in size, suspected to represent a splenic infarct. This was not def initively seen on the prior examination. IMPRESSION: 1. Significant interval decrease in size of right pleural effusion, now small. Moderate t o large left pleural effusion appears slightly decreased in size. Associated consolidative o pacity seen involving the lower lobes, likely representing pneumonia or atelectasis. 2. Essentially unchanged appearance of numerous bilateral cavitary lesions or airspace op acities 3. Wedge-shaped hypodensity in the anterior spleen, suspicious for an infarct. CARDIOGRAM as of INDICATIONS: Infective Endocarditis. CONCLUSIONS 1. There is mild pulmonary hypertension. 2. Moderate sized, mobile vegetation attached to the septal tricuspid valve leaflet. FINDINGS: ECG rhythm: Sinus rhythm. Study: A 2-dimensional transthoracic echocardiogram with m-mode, spectral and color flow Do ppler was perfomed. Study: This was a technically adequate study. Left Ventricle: Overall left ventricular systolic function is normal with, an EF between 60 - 65 %. Left Ventricle: Left Ventricle ejection fraction by m-mode measures 82%. Left Ventricle: The left ventricle cavity size is normal. Left Ventricle: Left ventricular wall thickness is normal. Right Ventricle: The right ventricle is normal in size. Right Ventricle: The right ventricular systolic function is normal. Left Atrium: The left atrial size is normal Left Atrium: , and the LA measures 3.4cm. Right Atrium: The right atrial size is normal Right Atrium: , and the RA measures 3.0cm. IMPRESSION: 1. There is mild pulmonary hypertension. 2. Moderate sized, mobile vegetation attached to the septal tricuspid valve leaflet. PROBLEM LIST Principal Problem: Sepsis (HCC) Active Problems: Hyposmolality and/or hyponatremia MARCEL (acute kidney injury) (HCC) Leucocytosis Thrombocytopenia (HCC) Toxic metabolic encephalopathy Acute respiratory failure with hypoxia (HCC) Heroin abuse Methamphetamine abuse Tobacco abuse Acute septic pulmonary embolism (HCC) Acute infective endocarditis Moderate protein-calorie malnutrition (HCC) @MALDXPLAN@ ASSESSMENT & PLAN 1. MARCEL/ ARF: note continued worsening azotemia. Initial MARCEL probably hemodynamic in nature. However, now that Cr worsened,consideration of other etiologies and/or second hit injury including post infectious GN, AIN and or Vancomycin associated nephrotoxicity. Note low C3; C4 and ASO are normal; no urine eosinophils report available and UA reveals marked hematuri a without RBC casts. Possibility of post infectious (Staph) GN also entertained, though the actual management would still be treatment of the infection. The need for kidney biopsy is s till high as it may contrast the possible 3 DDx as noted above. Note significant hypoalbumin emia and third space volume loss. Patient on Vancomycin with elevated levels as of 6. Now off Vancomycin but kidney function continues to decline even with the dialysis. Results for YANG RIDLEY ( ) as of 10/11/2015 13:14 Ref. Range 10/01/2015 19:35 10/02/2015 03:30 10/03/2015 03:45 10/04/2015 04:40 10/05/2015 04:19 10/06/2015 04:03 10/06/2015 18:46 10/07/2015 05:34 10/08/2015 04:16 10/09/2015 03:26 10/10/2015 0 4:43 10/11/2015 04:54 BUN Latest Ref Range: 8-25 mg/dL 75 (H) 70 (H) 65 (H) 78 (H) 97 (H) 115 (H) 68 (H) 77 (H) 5 8 (H) 51 (H) 43 (H) 46 (H) CREATININE Latest Ref Range: 0.70-1.30 mg/dL 1.9 (H) 1.5 (H) 1.2 1.6 (H) 2.9 (H) 3.9 (H) 2. 9 (H) 3.8 (H) 3.9 (H) 4.3 (H) 4.6 (H) 4.8 (H) BUN/CREAT Unknown 39 47 54 49 33 29 24 20 15 12 9 10 - Will dialyze patient daily with the SLEDD protocol. Will use dialysate bath 3K+, 2.5Ca, 3 0Bicarb and 138Na+. Goal UF today 3-3.5Kg as tolerated. See detailed orders. - Renal diet with 2gm Na+, 2gm K+, 1gm Phos, 1.2g protein/Kg body weight per day; total ramiro ories 4341-5038 Kcal/day. Dietary consult may assist to identify caloric needs. May need to commence feeding now as TPN or by NGT as tolerated. - Daily weights and strict I/O's. Okay with cautious IVF likely with NS. - Adjust dose of medications including antibiotics to estimated GFR ~10ml/min or ESRD dose regimen. - Avoid NSAIDs (including FRASER 2 inhibitors) and iodine contrast agents. - Avoid use of Magnesium and aluminum containing antacids. - Avoid use of Magnesium or phosphorus containing laxatives. - Get uric acid, phos, mag, CMP and CBC today and as needed. 2. Lytes/bone: - Na+: Improved and stable. Will maintain with appropriate dialysate Na+ bath to maintain s seth Na+ level WAL. - K+: Stable. Maintain with dialysate 3K+ bath. Monitor closely. - PO4: Elevated. Will correct with dialysis clearance as much as dialysis adequacy can asad mane Will monitor closely. - Bicarb: Acidosis. Will maintain with appropriated dialysate bicarbonate bath. 3. BP control: BP control is acceptable. Avoid further hypotension. Continue pressor jones pport with UF on HD. 4. Anemia mangement: Hb is >8. TSat 42%. - Will continue Epogen as needed with dialysis TIW to maintain HGB between 10-12g/dL. No Ep ogen today. Received Epogen 14511 units iv yesterday with dialysis. 5. Thrombocytopenia likely due to sepsis and or AIN. Patient also with ?nose bleed or bleed ing in the mouth. Auto Dealer to f/u. 6. 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 ID following. Case and care plan discussed with the piercing artist and intensive care team. Will continue HD /SLEDD as ordered. Time spent on this encounter: 35 minutes of CCT of which about 50% was dedicated to discuss ion of case and care plan with the piercing artist and intensive care team and coordination of a cute dialysis treatment. Dr. Vora to cover me from 08:00Hrs on 10/12/2015. Disposition: Possible to a care facility for continued antibiotic treatment. Code Status: Full Code ADARSH CREWS MD 10/11/2015 Jeny, YAIR Toussaint - 10/11/2015 10:19 AM PDTFormatting of this note might be different from the origi nal. Progress Notes by YAIR Gambino at 10/11/15 1019 Author: YAIR Gambino Service: Auto Dealer Author Type: Advanced Registere d Nurse Practitioner Filed: 10/11/15 1313 Date of Service: 10/11/15 1019 Status: Signed Bisque Brusher: YAIR Gambino (Advanced Registered Nurse Practitioner) [facility] Service: Auto Dealer Progress Note Yang Ridley 30 y.o. Hospital Day: LOS: 10 days Post-Op Day: * No surgery found * Consulting Physicians Treatment Team: Consulting Physician: Chris Swann DO Consulting Physician: Renetta Buck MD Consulting Physician: Gonzalez Bhardwaj MD Surgeon: Blanca Arias MD Consulting Physician: Blanca Arias MD Admitting Provider: Carly Thomas DO SUBJECTIVE Patient Summary: The patient is a 30 y.o. male with significant history of tobacco an d drug abuse using daily heroin and methamphetamine, also on Suboxone. He initially presen latasha to [facility] for progressive weakness, lethargy, and generalized pain (most ly his chest, neck, back, knees, ankles and toes) for 7 days. According to his girlfriend, he was feeling sick and febrile for a week with poor PO intake; she also noticed that his an kles and right knee were swollen but not warm or erythematous, and he seemed to be "halluinc ating and talking to himself". Exam at OSH was significant for point tenderness at the area of the cervical spine and posi tive Kernig's sign. LP was performed to rule out meningitis. IV antibiotics started, ceftria xone 2 gm and vancomycin [address] head and C-spine x-ray performed, MRI attempted but patient decompensated and was intubated for respiratory failure and airway protection. Significant labs: Na 114 (1435 hrs), BUN 81, Crea 2.48, WBC 19.9, Hb 11.6, Plt 51, Tbili 3. 6, AST 188, ALT 155, LA 1.7. CSF: clear, colorless, WBC 0, RBC 3. Transferred to [facility] for further care. Timeline: Evaluated by Nephrology, acute renal failure attributed to hemodynamics. Evaluated by Dr. Bhardwaj from orthopedics: Does not think patient has ankle septic joint and does not recom mend surgical intervention. Echocardiogram showed moderate size mobile vegetation attached to the septal tricuspid valv e leaflet, moderate tricuspid regurgitation, moderate pulmonary hypertension with mildly enl arged right ventricle. Evaluated by CTS, surgery not recommended On 10/01, extubated. MRI spine w/o evidence abscess On 10/02, he was transferred out of the ICU. 10/04-Transferred to ICU for worsening mental status, drop of Na from 122 to 117 and worseni ng renal function 10/05-HD line placed, started on dialysis. Right pigtail chest tube with drainage of 1400 ml serosanguineous exudate 10/06-Dialysis session. Improved encephalopathy. Anxiety requiring high dose precedex. 10/07-Right pigtail chest catheter removed 10/08-HD again today, 3L removed; Cxr with bilateral effusions which appear to be about the same as yesterday; will repeat CT chest to evaluate further; continues to be anxious, c/o pa in 10/09-HD again today, 3.5L removed, now with left pleural chest catheter placed overnight, i mmediately drained 850cc, only 50cc during the day today; intermittent fevers, tachycardia p ersists; add seroquel BID 10/10--HD again today with anticipated 2.5L removal; L pleural chest catheter removed, f/u C xr in 1 hour; if no issues post dialysis and f/u cxr will transfer to acute care bed Overnight events: anxiety and pain less, still spiking temps, tachycardic OBJECTIVE VITAL SIGNS Temp: [97.5 F (36.4 C)-101.6 F (38.7 C)] 100.9 F (38.3 C) Heart Rate: [120-145] 143 Resp: [29-57] 30 BP: (97-137)/(62-92) 117/79 mmHg Intake/Output Summary (Last 24 hours) at 10/11/15 1020 Last data filed at 10/11/15 0605 Gross per 24 hour Intake 3743 ml Output 6460 ml Net -2717 ml EXAM GEN: awake, oriented to person, place and time NEURO: PERRLA, no facial asymmetry, moves all extremities well GCS: 15 HEENT: sclerae clear, nonicteric, oral mmm, pink, no exudates NECK: supple, trachea midline HEART: Sinus tachycardia, S1/S2, +murmur LUNGS: tachypneic, scattered rhonchi on right , no wheezing, or rales, symmetric chest expa nsion, ABD: soft, nondistended, nontender to palpation, no masses, no hepatosplenomegaly EXTR: edema all extremities, no clubbing or cyanosis SKIN: diffuse purpuric palpable rash bilateral anterior lower extremities, also hand and fe et. LINES/TUBES: Right UE PICC, right IJ CVC 10/05 DATA Recent Labs Lab 10/11/15 0853 10/11/15 0454 10/10/15 0443 WBC 30.41* 26.55* 19.96* RBC 3.16* 3.20* 2.45* HGB 8.8* 8.8* 6.8* HCT 26.5* 27.0* 20.8* MCV 83.9 84.4 84.7 MCH 27.7 27.3 27.5 MCHC 33.0 32.4 32.5 RDW 47.3 48.1 45.9 PLT 169 170 136* MPV 8.0 8.3 7.9 BANDSABS 1.52* 1.86* 0.40* MORPH RBC AND PLT MORPHOLOGY APPEAR NORMAL RBC AND PLT MORPHOLOGY APPEAR NORMAL RBC AND PLT MORPHOLOGY APPEAR NORMAL Recent Labs Lab 10/11/15 0454 10/10/15 1846 10/10/15 0530 10/10/15 0443 10/09/15 0326 NA 130* -- -- 133* 132* K 4.4 4.4 -- 4.4 4.4 CL 95* -- -- 94* 94* CO2 27 -- -- 30 27 ANIONGAP 12 -- -- 14 15 GLUF 171* -- -- 172* 142* BUN 46* -- -- 43* 51* CREATININE 4.8* -- -- 4.6* 4.3* BCR 10 -- -- 9 12 CA 7.1* -- -- 6.7* 6.7* ALB 1.6* -- -- 1.7* 1.9* PROT 6.0* -- -- 6.1* 5.8* BILITOT 4.1* -- 5.8* 5.9* 5.4* ALT 19 -- -- 19 24 AST 26 -- -- 27 25 EGFR 15* -- -- 16* 17* PHOS 5.3* 4.4 -- 6.2* 6.5* MG 2.6* 2.7* -- 2.6* 2.6* Recent Labs Lab 10/11/15 0853 10/08/15 0416 10/07/15 0534 INR 2.1 1.4 1.5 IMAGING XR CHEST 1 VIEW 10/11/2015 11:53 AM INDICATION: Removal of chest tube. COMPARISON: October 11, 2015 TECHNIQUE: Chest 1 view, AP view of the chest FINDINGS: Interval removal of left chest tube. No pneumothorax. Bilateral patchy consolidation and cavitary lesions consistent with septic emboli/infection . Upper mediastinal contours are normal. Heart size is unchanged. Right internal jugular cent ral venous catheter tip within the right atrium. No acute osseous abnormality. IMPRESSION: Interval removal of left chest tube. No pneumothorax. Other findings as above XR CHEST 1 VIEW 10/09/2015 7:56 AM History: 30 years. Male. Numerous septic pulmonary emboli identified on chest CT 09/17 07/03. Bilateral pleural effusions. Follow-up exam. Technique: AP portable upright technique was performed at 0755 hours. Comparison: 10/08/15 Findings: A moderate LEFT pleural effusion is again visualized with pleural density measu ring approximately 16 mm in thickness at the lateral midportion of the LEFT chest, unchanged . Partial atelectasis of the LEFT lower lobe is due to pleural effusion. A smaller RIGHT pleural effusion still present with obscuration of the RIGHT hemidiaphragm. Mild atelectasis of the RIGHT lower lobe is also present. Nodular densities with central lucencies are again visualized throughout both lung barry, consistent with numerous small pulmonary septic emboli. Mild groundglass infiltrate is aga in visualized throughout the aerated portion of the LEFT lung. The cardiac volume is normal. The pulmonary vasculature is obscured. A persistent RIGHT internal jugular dialysis catheter is visualized with its tip at the theresa ction of the superior vena cava and RIGHT atrium. A RIGHT brachial central venous PICC sushma e is present with the tip at the junction of the superior vena cava and right atrium, in goo d position. IMPRESSION: 1. No significant change as compared with 10/08/15. 2. Moderate LEFT and mild RIGHT pleural effusions. 3. Numerous nodular densities throughout both lung barry representing normal pulmonary s eptic emboli. 4. Persistent mild alveolar infiltrate of the LEFT lung, unchanged. 5. Satisfactory position of life-support catheters. Echo Impression 1. LV size, wall thickness and systolic function are normal, with an EF of 60%. 2. The diastolic filling pattern indicates impaired relaxation consistent with mild dysfunc tion (Grade I). 3. The right ventricle is mildly enlarged, but right ventricular systolic function is dorothy l. 4. Moderate tricuspid regurgitation present. 5. There is moderate pulmonary hypertension. The right ventricular systolic pressure (pu lmonary artery systolic pressure), as measured by Doppler, is 50.27mmHg. 6. Moderate sized, mobile vegetation attached to the septal tricuspid valve leaflet. Microbiology data: 09/27 blood cultures obtained from [facility] are growing MSSA from 3 out of 3 bottles CSF culture result has not yet been faxed but per personnel from [place] microbiology, no growth 09/30 blood cultures with no growth to date 09/30 MRSA nasal PCR negative 09/30 tracheal aspirate culture grew 3+ MSSA 10/03 urine culture with no growth PROBLEM LIST Principal Problem: Sepsis (HCC) Active Problems: Hyposmolality and/or hyponatremia MARCEL (acute kidney injury) (HCC) Leucocytosis Thrombocytopenia (HCC) Toxic metabolic encephalopathy Acute respiratory failure with hypoxia (HCC) Heroin abuse Methamphetamine abuse Tobacco abuse Acute septic pulmonary embolism (HCC) Acute infective endocarditis Moderate protein-calorie malnutrition (HCC) ASSESSMENT & PLAN NEURO: Septic encephalopathy-Resolving CSF w/o growth from [facility] Continue remeron for anxiety/insomnia CV: Normotensive---d/c'd midodrine Tachycardia secondary to IE as well as anxiety, fluctuates from 110's to low 140's---mon itor; continue abx per ID, tylenol as needed, anti-anxiolytics PULM: Hypoxemic respiratory failure-stable on minimal O2 via NC Pulmonary septic embolic from MSSA tricuspid valve IE CT chest repeated 10/08--Right pleural effusion less s/p pigtail chest tube 10/05. Exudati ve by Lights criteria. PH, glucose not consistent with complicated infected effusion. Right pleural effusion s/p pigtail chest tube 10/05. Exudative by Lights criteria. PH, gl ucose not consistent with complicated infected effusion. Left pleural effusion minimal on be dside ultrasound (not amenable for thoracentesis) Left pleural effusion, much improved s/p pigtail catheter placed 10/08, immediately drain ed 850cc---Flushed today, minimal output overnight---REMOVED today (10/10), repeat cxr in 1 h r and again in a.m. GI/NUTRITION: Severe malnutrition secondary to infectious process Renal diet Mild Transaminitis (resolved) with elevated bilirubin- Trending down, likely sepsis rela latasha . Hepatitis serologies and HIV negative. Continue to monitor. RENAL/LYTES: MARCEL. Anuric requiring HD. ATN vs C3 staph induced glomeurlonephritis. UA with hematuria. C3 low. C4 wnl. Low C3 likely from MSSA infectious process, but juan carlos l biopsy unlikely to alter management Unlikely AIN. Urine eosinophils negative Hepatitis serologies and HIV negative. Consider HCV RNA Hyponatremia-resolving. Cortisol and TSH wnl HD placed, started on dialysis 10/05 ID: MSSA tricuspid valve endocarditis/Leukocytosis/febrile---. Bedside ultrasound shows tric uspic posterior leaflet involvement on RV inflow view and septal leaflet involvement seen on 4C view---Followed by ID, on nafcillin HEME: Platelets stable Anemia-Multifactorial, cannot exclude hemolysis. Required blood transfusion 10/06 (2 unit s PRBC); 1 unit given 10/09. Continue to monitor ENDO: Monitor BS MUSC/SKIN: Vasculitis from IE/sepsis PROPHYLAXIS: Stress ulcer prophylaxis: on PPI DVT prophylaxis: Heparin SC VAP bundle: N/A Disposition: Critical care plan as above Code Status: Full Code *Please bill 45 minutes of critical care time spent evaluating the patient, reviewing the d michael and formulating a plan exclusive of all other procedures. YAIR GAMBINO 10/11/2015 10:20 AM Mini Dinh DO - 10/11/2015 6:32 AM PDTFormatting of this note might be different from the origin al. Progress Notes by Chris Swann DO at 10/11/15 0632 Author: Chris Swann DO Service: (none) Author Type: Physician Filed: 10/11/15 0835 Date of Service: 10/11/15631 Status: Signed Bisque Brusher: Chris Swann DO (Physician) [facility] Service: Infectious Disease Progress Note Hospital Day: LOS: 10 days Post-Op Day: * No surgery found * SUBJECTIVE Patient Summary: CC: Fever, chest pain and altered mental status From [employer] admission note on 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 male with significant history of tobacco and drug abuse using daily heroin and methamphetamine, also on Suboxone. He initially presented to [facility] for progressive weakness, lethargy, and ge neralized pain (mostly his chest, neck, back, knees, ankles and toes) for the past 7 days. H e noticed that his ankles and right knee were swollen but not warm or erythematous. Nessa barnett to his girlfriend, he has been feeling sick and febrile for the past week with poor PO int elisha. Yesterday, she noticed that he seemed like he was hallucinating and talking to himself. He was very weak today that she had to assist him to get into the car to go the the ED. Exam at OSH was significant for point tenderness at the area of the cervical spine and posi tive Kernig's sign. LP was performed to rule out meningitis. IV antibiotics started, ceftria xone 2 gm and vancomycin [address] head and C-spine x-ray performed, MRI attempted but patient decompensated and was intubated for respiratory failure and airway protection. Significant labs: Na 114 (1435 hrs), BUN 81, Crea 2.48, WBC 19.9, Hb 11.6, Plt 51, Tbili 3. 6, AST 188, ALT 155, LA 1.7. CSF: clear, colorless, WBC 0, RBC 3. Protein 31. Glucose 50. Culture with no growth to d ate Blood cultures are reported to be growing GPCs at [place] Transferred to [facility] for further care. MRI of brain and spine carried out with limited findi ngs due to non-contrast study. Evaluated by Nephrology, acute renal failure attributed to hemodynamics. Evaluated by Dr. Bhardwaj from orthopedics: Does not think patient has ankle septic joint and does not recomme nd surgical intervention. Echocardiogram showed moderate size mobile vegetation attached to the septal tricuspid valv e leaflet, moderate tricuspid regurgitation, moderate pulmonary hypertension with mildly enl arged right ventricle. Evaluated by CTS, surgery not recommended On 10/01, extubated On 10/02, he was transferred out of the ICU. On 10/04, patient had worsening mental status and also became tachypneic. He became more hy ponatremic with worsening renal function. Bilateral moderate sized pleural effusions were n oted on chest CT scan. Bedside ultrasound with bilateral pleural effusion, R>L. Left minimal and without echogenic ity suggestive of infectious pleural effusion. Left effusion is moderate with fibrin strands concerning for complicated/infectious pleural effusion. Right pig tail chest tube placed wi th purulent drainage. Head CT scan negative On 10/05, started on hemodialysis On October 08, left chest tube was placed. CC: Staphylococcal sepsis, right-sided endocarditis Chart reviewed: No new events. Subjective The patient denies any pruritus or pain in his skin. He does feel general achiness. He does have some pain at the site of his left chest tube. He has had some abdominal discomfort, a lot of gas seen on x-ray. He has been given simethicone. He has been having bowel movements regularly and is eating small quantities. ROS No fever, chills sweats. No nausea, vomiting or diarrhea. No rashes or pruritis. No oral pa in. Scheduled Medications clonazePAM 1 mg Oral BID gentamicin Topical Daily heparin (porcine) 5000 unit/0.5mL 5,000 Units Subcutaneous 3 times per day mirtazapine 15 mg Oral Nightly nafcillin 2 g Intravenous Q4H polyethylene glycol 8.5 g Oral Daily QUEtiapine 25 mg Oral QAM QUEtiapine 50 mg Oral QPM sodium bicarbonate buffer 5 mL Infiltration Once sodium chloride 10 mL Intravenous 2 times per day Continuous Infusions PRN Medications acetaminophen OR acetaminophen, albumin human, aluminum-magnesium hydroxide-simethicone , ngiyudfpyzAHVGY-yiobiy-mqtoxcrjl oral solution, HYDROmorphone, lip moisturizer, ondansetro n OR ondansetron, promethazine, simethicone, sodium chloride, white petrolatum OBJECTIVE Vital Signs: BP 124/82 mmHg | Pulse 123 | Temp(Src) 100.2 F (37.9 C) (Oral) | Resp 29 | Ht 1.702 m ( 5' 7") | Wt 67.7 kg (149 lb 4 oz) | BMI 23.37 kg/m2 | SpO2 94% Temp: [99.3 F (37.4 C)-100.8 F (38.2 C)] 100.2 F (37.9 C) (10/10 0000) BP: (101-139)/(58-82) 124/82 mmHg (10/10 199) Heart Rate: [111-137] 123 (10/10 199) Resp: [0-57] 29 (10/10 199) SpO2: [93 %-100 %] 94 % (10/10 199) Weight: [67.7 kg (149 lb 4 oz)] 67.7 kg (149 lb 4 oz) (10/09 1301) Physical Exam Exam: Const: Vitals reviewed. No acute distress Skin: Numerous hyperemic skin lesions with central ecchymosis consistent with ecthyma gangr enosum ENT: No thrush. Lungs: CTAB, no rales or wheezes Heart: RRR, no murmur Abd: soft, NT, + bowel sounds Musculoskeletal: No gross deformity or active arthritis DATA CBC: Lab Results Component Value Date WBC 26.55* 10/11/2015 RBC 3.20* 10/11/2015 HGB 8.8* 10/11/2015 HCT 27.0* 10/11/2015 MCV 84.4 10/11/2015 MCH 27.3 10/11/2015 MCHC 32.4 10/11/2015 RDW 48.1 10/11/2015 PLT 170 10/11/2015 MPV 8.3 10/11/2015 DIFFTYPE PENDING 10/11/2015 WBC: Lab Results Component Value Date WBC 26.55* 10/11/2015 NEUTABSMAN 18.36* 10/10/2015 NEUTROMAN 92 10/10/2015 LYMPHOABS 0.80* 10/10/2015 LYMPHOMAN 4 10/10/2015 MONOABSMAN 0.40 10/10/2015 MONOMAN 2 10/10/2015 EOSINOABS 0.17 10/09/2015 EOSINOMAN 1 10/09/2015 PLTEST ADEQUATE 10/10/2015 BANDSPCT 2 10/10/2015 METAABS 0.17* 10/09/2015 METAPCT 1 10/09/2015 MYELOABS 0.17* 10/09/2015 MYELOPCT 1 10/09/2015 CMP: Lab Results Component Value Date NA 130* 10/11/2015 K 4.4 10/11/2015 CL 95* 10/11/2015 CO2 27 10/11/2015 ANIONGAP 12 10/11/2015 GLUF 171* 10/11/2015 BUN 46* 10/11/2015 CREATININE 4.8* 10/11/2015 BCR 10 10/11/2015 CA 7.1* 10/11/2015 PROT 6.0* 10/11/2015 ALB 1.6* 10/11/2015 GLOB 3.6 10/01/2015 BILITOT 4.1* 10/11/2015 ALP 72 10/11/2015 AST 26 10/11/2015 ALT 19 10/11/2015 EGFR 15* 10/11/2015 Micro: No new culture data. Medical Imaging: This morning's CXR was viewed in PACS, shows improving aeration of left yordan ng base, pigtail drain in place. Patchy interstitial infiltrates remain, no dense consolidat ion. PROBLEM LIST Principal Problem: Sepsis (HCC) Active Problems: Hyposmolality and/or hyponatremia MARCEL (acute kidney injury) (HCC) Leucocytosis Thrombocytopenia (HCC) Toxic metabolic encephalopathy Acute respiratory failure with hypoxia (HCC) Heroin abuse Methamphetamine abuse Tobacco abuse Acute septic pulmonary embolism (HCC) Acute infective endocarditis Moderate protein-calorie malnutrition (HCC) ASSESSMENT & PLAN Gram-positive sepsis, MSSA tricuspid valve endocarditis -Patient has MSSA bacteremia, tricuspid valve endocarditis with septic pulmonary emboli re lated to IV drug use -Neck pain and back pain improved; noncontrast MRI of spine and brain on presentation show s no evidence of infection -No evidence of septic arthritis; evaluated by orthopedics -Blood cultures on admission here have no growth to date. PICC placed. Central line sedrick pina -CT scan performed on October 08 confirmed continued pleural effusion on the left, appreciate chest tube placement. Fevers have improved. Continue nafcillin 2 g IV q4 hours. Encephalopathy, metabolic -Appears to be improving, we will continue to monitor. Acute hypoxemic respiratory failure -Extubated, appears stable, will monitor. MARCEL -No adjustment needed for nafcillin. Hope to avoid synergistic gentamicin. Abnormal LFTs -Resolved. Petechial/purpuric rash -Suspect ecthyma. We are slightly better today. IV drug use -Not a candidate for outpatient IV antibiotics. HIV negative. Code Status: Full Code CHRIS SWANN DO 10/11/2015 Marylou Fermin ARNP - 10/10/2015 4:31 PM PDT Progress Notes by YAIR Gambino at 10/10/15 1631 Author: YAIR Gambino Service: [employer] Author Type: Advanced Registere d Nurse Practitioner Filed: 10/10/15 1839 Date of Service: 10/10/15 1631 Status: Signed Bisque Brusher: YAIR Gambino (Advanced Registered Nurse Practitioner) [facility] Service: [employer] Progress Note Yang Keyana 30 y.o. Hospital Day: LOS: 9 days Post-Op Day: * No surgery found * Consulting Physicians Treatment Team: Consulting Physician: Chris Swann DO Consulting Physician: Renetta Buck MD Consulting Physician: Gonzalez Bhardwaj MD Surgeon: Blanca Arias MD Consulting Physician: Blanca Arias MD Admitting Provider: DO MATEUSZ Washburn Patient Summary: The patient is a 30 y.o. male with significant history of tobacco an d drug abuse using daily heroin and methamphetamine, also on Suboxone. He initially presen latasha to [facility] for progressive weakness, lethargy, and generalized pain (most ly his chest, neck, back, knees, ankles and toes) for 7 days. According to his girlfriend, he was feeling sick and febrile for a week with poor PO intake; she also noticed that his an kles and right knee were swollen but not warm or erythematous, and he seemed to be "halluinc ating and talking to himself". Exam at OSH was significant for point tenderness at the area of the cervical spine and posi tive Kernig's sign. LP was performed to rule out meningitis. IV antibiotics started, ceftria xone 2 gm and vancomycin [address] head and C-spine x-ray performed, MRI attempted but patient decompensated and was intubated for respiratory failure and airway protection. Significant labs: Na 114 (1435 hrs), BUN 81, Crea 2.48, WBC 19.9, Hb 11.6, Plt 51, Tbili 3. 6, AST 188, ALT 155, LA 1.7. CSF: clear, colorless, WBC 0, RBC 3. Transferred to [facility] for further care. Timeline: Evaluated by Nephrology, acute renal failure attributed to hemodynamics. Evaluated by Dr. Bhardwaj from orthopedics: Does not think patient has ankle septic joint and does not recom mend surgical intervention. Echocardiogram showed moderate size mobile vegetation attached to the septal tricuspid valv e leaflet, moderate tricuspid regurgitation, moderate pulmonary hypertension with mildly enl arged right ventricle. Evaluated by CTS, surgery not recommended On 10/01, extubated. MRI spine w/o evidence abscess On 10/02, he was transferred out of the ICU. 10/04-Transferred to ICU for worsening mental status, drop of Na from 122 to 117 and worseni ng renal function 10/05-HD line placed, started on dialysis. Right pigtail chest tube with drainage of 1400 ml serosanguineous exudate 10/06-Dialysis session. Improved encephalopathy. Anxiety requiring high dose precedex. 10/07-Right pigtail chest catheter removed 10/08-HD again today, 3L removed; Cxr with bilateral effusions which appear to be about the same as yesterday; will repeat CT chest to evaluate further; continues to be anxious, c/o pa in 10/09-HD again today, 3.5L removed, now with left pleural chest catheter placed overnight, i mmediately drained 850cc, only 50cc during the day today; intermittent fevers, tachycardia p ersists; add seroquel BID Overnight events: anxiety and pain OBJECTIVE VITAL SIGNS Temp: [98.9 F (37.2 C)-100.8 F (38.2 C)] 100.8 F (38.2 C) Heart Rate: [111-137] 134 Resp: [0-57] 36 BP: (101-139)/(57-81) 121/62 mmHg Intake/Output Summary (Last 24 hours) at 10/10/15 1631 Last data filed at 10/10/15 1301 Gross per 24 hour Intake 3210 ml Output 7060 ml Net -3850 ml EXAM GEN: awake, oriented to person, place and time NEURO: PERRLA, no facial asymmetry, moves all extremities well GCS: 15 HEENT: sclerae clear, nonicteric, oral mmm, pink, no exudates NECK: supple, trachea midline HEART: Sinus tachycardia, S1/S2, +murmur LUNGS: tachypneic, bibasilar crackles, fine , no wheezing, rales or rhonchi, symmetric ches t expansion, ABD: soft, nondistended, nontender to palpation, no masses, no hepatosplenomegaly EXTR: edema all extremities, no clubbing or cyanosis SKIN: diffuse purpuric palpable rash bilateral anterior lower extremities, also hand and fe et. LINES/TUBES: Right UE PICC, right IJ CVC 10/05, L pigtail Chest catheter 10/08 DATA Recent Labs Lab 10/10/15 0443 10/09/15 0326 10/08/15 0416 WBC 19.96* 16.82* 14.06* RBC 2.45* 2.70* 2.73* HGB 6.8* 7.4* 7.5* HCT 20.8* 22.4* 22.3* MCV 84.7 82.9 81.9 MCH 27.5 27.5 27.7 MCHC 32.5 33.2 33.7 RDW 45.9 43.8 44.2 PLT 136* 207 191 MPV 7.9 7.9 7.8 BANDSABS 0.40* 0.84* 1.41* MORPH RBC AND PLT MORPHOLOGY APPEAR NORMAL 1+ RBC AND PLT MORPHOLOGY APPEAR NORMAL Recent Labs Lab 10/10/15 0530 10/10/15 0443 10/09/15 0326 10/08/15 0416 NA -- 133* 132* 131* K -- 4.4 4.4 4.2 CL -- 94* 94* 93* CO2 -- 30 27 24 ANIONGAP -- 14 15 18 GLUF -- 172* 142* 129* BUN -- 43* 51* 58* CREATININE -- 4.6* 4.3* 3.9* BCR -- 9 12 15 CA -- 6.7* 6.7* 6.6* ALB -- 1.7* 1.9* 2.1* PROT -- 6.1* 5.8* 5.4* BILITOT 5.8* 5.9* 5.4* 5.8* ALT -- 19 24 28 AST -- 27 25 27 EGFR -- 16* 17* 19* PHOS -- 6.2* 6.5* 6.5* MG -- 2.6* 2.6* 2.7* Recent Labs Lab 10/08/15 0416 10/07/15 0534 10/07/15 0357 INR 1.4 1.5 POOR QUALITY SPECIMEN FROM THE LINE DRAW, CHARGES CREDITED, PATIENT REDRAWN. IMAGING XR CHEST 1 VIEW 10/09/2015 7:56 AM History: 30 years. Male. Numerous septic pulmonary emboli identified on chest CT 09/17 07/03. Bilateral pleural effusions. Follow-up exam. Technique: AP portable upright technique was performed at 0755 hours. Comparison: 10/08/15 Findings: A moderate LEFT pleural effusion is again visualized with pleural density measu ring approximately 16 mm in thickness at the lateral midportion of the LEFT chest, unchanged . Partial atelectasis of the LEFT lower lobe is due to pleural effusion. A smaller RIGHT pleural effusion still present with obscuration of the RIGHT hemidiaphragm. Mild atelectasis of the RIGHT lower lobe is also present. Nodular densities with central lucencies are again visualized throughout both lung barry, consistent with numerous small pulmonary septic emboli. Mild groundglass infiltrate is aga in visualized throughout the aerated portion of the LEFT lung. The cardiac volume is normal. The pulmonary vasculature is obscured. A persistent RIGHT internal jugular dialysis catheter is visualized with its tip at the theresa ction of the superior vena cava and RIGHT atrium. A RIGHT brachial central venous PICC sushma e is present with the tip at the junction of the superior vena cava and right atrium, in goo d position. IMPRESSION: 1. No significant change as compared with 10/08/15. 2. Moderate LEFT and mild RIGHT pleural effusions. 3. Numerous nodular densities throughout both lung barry representing normal pulmonary s eptic emboli. 4. Persistent mild alveolar infiltrate of the LEFT lung, unchanged. 5. Satisfactory position of life-support catheters. Echo Impression 1. LV size, wall thickness and systolic function are normal, with an EF of 60%. 2. The diastolic filling pattern indicates impaired relaxation consistent with mild dysfunc tion (Grade I). 3. The right ventricle is mildly enlarged, but right ventricular systolic function is dorothy l. 4. Moderate tricuspid regurgitation present. 5. There is moderate pulmonary hypertension. The right ventricular systolic pressure (pu lmonary artery systolic pressure), as measured by Doppler, is 50.27mmHg. 6. Moderate sized, mobile vegetation attached to the septal tricuspid valve leaflet. Microbiology data: 09/27 blood cultures obtained from [facility] are growing MSSA from 3 out of 3 bottles CSF culture result has not yet been faxed but per personnel from [place] microbiology, no growth 09/30 blood cultures with no growth to date 09/30 MRSA nasal PCR negative 09/30 tracheal aspirate culture grew 3+ MSSA 10/03 urine culture with no growth PROBLEM LIST Principal Problem: Sepsis (HCC) Active Problems: Hyposmolality and/or hyponatremia MARCEL (acute kidney injury) (HCC) Leucocytosis Thrombocytopenia (HCC) Toxic metabolic encephalopathy Acute respiratory failure with hypoxia (HCC) Heroin abuse Methamphetamine abuse Tobacco abuse Acute septic pulmonary embolism (HCC) Acute infective endocarditis Moderate protein-calorie malnutrition (HCC) ASSESSMENT & PLAN NEURO: Septic encephalopathy-Resolving CSF w/o growth from [facility] Continue remeron for anxiety/insomnia CV: Normotensive---d/c midodrine Tachycardia secondary to IE and anxiety PULM: Hypoxemic respiratory failure-stable on minimal O2 via NC Pulmonary septic embolic from MSSA tricuspid valve IE CT chest repeated 10/08--Right pleural effusion less s/p pigtail chest tube 10/05. Exudati ve by Lights criteria. PH, glucose not consistent with complicated infected effusion. Right pleural effusion s/p pigtail chest tube 10/05. Exudative by Lights criteria. PH, gl ucose not consistent with complicated infected effusion. Left pleural effusion minimal on be dside ultrasound (not amenable for thoracentesis) Left pleural effusion, now with pigtail catheter placed 10/08, immediately drained 850cc, fluid pendng, continue CT to LWS, flush daily, repeat Cxr in a.m.and possibly remove GI/NUTRITION: Severe malnutrition secondary to infectious process Renal diet Mild Transaminitis (resolved) with elevated bilirubin- Trending down, likely sepsis rela latasha . Hepatitis serologies and HIV negative. Continue to monitor. RENAL/LYTES: MARCEL. Anuric requiring HD. ATN vs C3 staph induced glomeurlonephritis. UA with hematuria. C3 low. C4 wnl. Low C3 likely from MSSA infectious process, but juan carlos l biopsy unlikely to alter management Unlikely AIN. Urine eosinophils negative Hepatitis serologies and HIV negative. Consider HCV RNA Hyponatremia-resolving. Cortisol and TSH wnl HD placed, started on dialysis 10/05 ID: MSSA tricuspid valve endocarditis. Bedside ultrasound shows tricuspic posterior leaflet involvement on RV inflow view and septal leaflet involvement seen on 4C view---Followed by I D, on nafcillin HEME: Platelets stable Anemia-Multifactorial, cannot exclude hemolysis. Required blood transfusion 10/06 (2 unit s PRBC); 1 unit given today (10/09). Continue to monitor ENDO: Monitor BS MUSC/SKIN: Vasculitis from IE/sepsis PROPHYLAXIS: Stress ulcer prophylaxis: on PPI DVT prophylaxis: Heparin SC VAP bundle: N/A Disposition: Critical care plan as above Code Status: Full Code *Please bill 45 minutes of critical care time spent evaluating the patient, reviewing the d michael and formulating a plan exclusive of all other procedures. YAIR GAMBINO 10/10/2015 4:31 PM Carolyn Byrne, PT - 10/10/2015 2:05 PM PDTFormatting of this note might be different from the o riginal. Therapy Progress Note by Jovanna Franco PT at 10/10/15 1407 Author: Jovanna Franco PT Service: (none) Author Type: Physical Therapist Filed: 10/10/15 1526 Date of Service: 10/10/151404 Status: Signed Bisque Brusher: Jovanna Franco PT (Physical Therapist) 10/10/15 1406 PT Last Visit PT Received On 10/10/15 Reason for Treatment Deconditioning (due to sepsis/drug abuse) Requires PT Follow Up Yes Follow up PT Only? Yes PT Eval/Reassessment Date 10/10/15 Assistance Required 2 person Precautions Other Precautions high fall risk Other Comments Comments Pt admitted with sepsis and respiratory failure, re-admitted to ICU for worsening mental status, pt now on dialysis and has pigtail chest tube. Pt with improved cognition, st ill not feeling well, appeared somewhat fearful and in pain. RN present throughout. Pt agree able to sit EOB with encouragement. MaxA x2 supine-sit, initial assist for sitting balance. HR raised to 150bpm. Pt had no c/o dizziness or lightheadedness. Able to maintain sitting ba latoya with SBA. Pt appeared to gain confidence, still somewhat apprehensive about mobilty. M aintained sitting balance for 5 minutes, then agreeable and desireing to trial stand. Pt sto od with Anuj x2 for safety. No c/o dizziness or lightheadedness. Pt said he felt okay, fatig ued at one minute. Able to take one small shuffle step with modA to head of bed. Returned to bed maxA x2. Pt rubbed R elbow along bed sheet with transfer and opened wound. RN aware and will treat. HR returned to 133 upon supine. Pt felt good about what he was able to accompli sh. Finished session with pt félix in bed and RN present addressing needs. Cognition Overall Cognitive Status Impaired Comments slow effortful speaking Bed Mobility Supine to Sit Max assist (BLEs OOB & trunk to upright);x 2 person Sit to Supine Max assist (BLEs into bed & trunk to lower);x 2 person Transfers Sit to/from Stand Minimal assist (steadying/contact guard);x 2 person Static Sitting Balance Static Sitting-Balance Support No upper extremity support;Right upper extremity support;Lef t upper extremity support Static Sitting-Level of Assistance Minimal assist;Standby assist;Maintains midline Static Standing Balance Static Standing-Balance Support Right upper extremity support;Left upper extremity support Static Standing-Level of Assistance Minimal assist Static Standing-Comment/Duration 1 minutes to fatigue Seated Seated-Exercise Type Long arc quads;Seated marching (x5 each) Modalities Other Therapy ed & encouragement for importance of mobiltiy Activity Tolerance Activity Tolerance Patient limited by fatigue;Patient limited by pain Nurse Made Aware yes Plan Treatment/Interventions Assist d/c plannning;Balance training;Bed mobility training;Family training;Gait training;Therapeutic exercise;Stair training;Transfer training PT Frequency 5-7x/wk;Once per day Care Duration (# of days) 7 # of days Recommendation Recommendations Defer onversion Transa ction, Provider Unknown - 10/10/2015 2:01 PM PDT Progress Notes by Jer Lewis at 10/10/15 1401 Author: Jer Lewis Service: (none) Author Type: Manager Hair Filed: 10/10/15 1403 Date of Service: 10/10/15 140 Status: Signed Bisque Brusher: Jer Lewis () Visit per restaurant inspector. Pt sitting up in bed. Chp offered visit. Pt declined. Chp offered to keep pt in prayers today. Pt perked up at that saying, "Yes, please!" Chaplain Jer Lewis & Manager Hair Microbiological Lab Technician Raciel Cunha onver patti Transaction, Provider Unknown - 10/10/2015 1:30 PM PDT Nurse Progress Note by Mayelin Milton RN at 10/10/15 3765 Author: Mayelin Milton RN Service: (none) Author Type: Registered Nurse Filed: 10/10/15 1742 Date of Service: 10/10/15 951 Status: Signed Bisque Brusher: Mayelin Milton RN (Registered Nurse) Came into patient's room when I saw aunt at the bedside with a wet wash cloth scrubbing pat delbert's lips and tongue. I asked the aunt what she was doing and she stated "rubbing off all that dry skin off his tongue and lips". I asked her to stop. I talked to the patient and the aunt that that those are not dry skin and they are a side of effect of the infection. I said informed the patient and the aunt not to pick on the ones on his lips and tongue and a s well as the areas on his skin as well. Informed the patient and the aunt that not picking the scabs can help prevent skin infections. I assess the patient's mouth and it was bleeding slightly and pink fragile skin was exposed on his lips and tongue. Cleaned mouth with oral care as I have been doing the day before a nd today until now on average Q4HR. Patient states that it is now very painful. Spoke with piercing artist and they ordered magic mouth wash. After initially use patient is still stating how painful it is. Adarsh Mackey MD - 10/10/2015 7:54 AM PDT Progress Notes by Adarsh Crews MD at 10/10/15 0754 Author: Adarsh Crews MD Service: Nephrology Author Type: Physician Filed: 10/10/15 0926 Date of Service: 10/10/15 0754 Status: Signed Bisque Brusher: Adarsh Crews MD (Physician) [facility] Service: Nephrology Progress Note Hospital Day: LOS: 9 days Post-Op Day: * No surgery found * SUBJECTIVE Patient Summary: Reviewed medical records expensively. The patient is a 30 y.o. male with significant history of tobacco and drug abuse using daily heroin and methamphetamine, also on Suboxone. He initially presented to [facility] for progressive weaknes s, lethargy, and generalized pain for the past 7 days. He noticed that his ankles and right knee were swollen but not warm or erythematous. According to his girlfriend, he has been fee ling sick and febrile for the past week with poor oral intake. LP was performed to rule out meningitis. IV antibiotics started, ceftriaxone 2 gm and vancomycin [address] head and C-spine x-ray performed, patient decompensated and was intubated for respiratory failure and airway protection and admitted to the ICU. Significant labs on initial presentation : Na 114 (1435 hrs), BUN 81, Crea 2.48, Over next 12-24 hrs, his sodium abruptly improved to a peak of126 by 6 AM on 10/01, so c ounter measures were started to avoid over correction. Patient received DDAVP X2 X 2 MCG AT 4 AND 8 AM ON 10/01 and is on D5W AT 200 ML/HR. He has never been hospitalized because of low sodium. He has never been symptomatic because of low sodium. There are no herbal preparation intake; he does not have hx of liver cirrhos is. He does not have hx of CHF, hypothyroidism or adrenal insufficiency.There is no hx of ch ronic diarrhea and no N/V. Events Overnight: Reports chest pain. Had CT chest that showed worsening left pleural effusion and improved right pleural effusion after right chest tube placement and draining of ~2L of serosanguineous fluid. Had left chest tube placed and draining bloody effusion. De nies pain, nausea, vomiting. Attending and fairly tolerating HD via the SLEDD protocol now. BP stable. HR in the 120s. Serum Na+ improved and stable. Still severely oligo-anuric. CXR t his morning showed improved right and worsening left pleural effusion. Reviewed labs and med ical records. Note persisting, though improving anasarca. Had multiple unit blood transfusio n last Monday. Schedule for one unit PRBC transfusion today. Scheduled Medications clonazePAM 1 mg Oral BID famotidine 20 mg Oral Daily Or famotidine 20 mg Intravenous Daily gentamicin Topical Daily heparin (porcine) 5000 unit/0.5mL 5,000 Units Subcutaneous 3 times per day midodrine 10 mg Oral TID mirtazapine 15 mg Oral Nightly nafcillin 2 g Intravenous Q4H polyethylene glycol 8.5 g Oral Daily sodium bicarbonate buffer 5 mL Infiltration Once sodium chloride 10 mL Intravenous 2 times per day Continuous Infusions dexmedetomidine in NS 0.7 mcg/kg/hr (10/10/15 0550) PRN Medications acetaminophen OR acetaminophen, albumin human, HYDROmorphone, lip moisturizer, ondanset eliana OR ondansetron, promethazine, sodium chloride, white petrolatum OBJECTIVE Vital Signs: BP 110/61 mmHg | Pulse 113 | Temp(Src) 99.3 F (37.4 C) (Oral) | Resp 26 | Ht 1.702 m (5 ' 7") | Wt 69.6 kg (153 lb 7 oz) | BMI 24.03 kg/m2 | SpO2 97% Temp: [98.2 F (36.8 C)-101.4 F (38.6 C)] 99.3 F (37.4 C) (10/09 644) BP: (101-141)/(57-77) 110/61 mmHg (10/09 729) Heart Rate: [111-136] 113 (10/09 729) Resp: [26-41] 26 (10/09 729) SpO2: [91 %-100 %] 97 % (10/09 729) Weight: [69.6 kg (153 lb 7 oz)-72 kg (158 lb 11.7 oz)] 69.6 kg (153 lb 7 oz) (10/08 1418) Intake/Output Summary (Last 24 hours) at 10/10/15 0754 Last data filed at 10/10/15 0618 Gross per 24 hour Intake 3310 ml Output 7450 ml Net -4140 ml Physical Exam Constitutional: He is oriented to person, place, and time. He appears well-developed and we ll-nourished. HENT: Head: Normocephalic and atraumatic. Mouth/Throat: No oropharyngeal exudate. Blood crusts in the nostrils and mouth. Eyes: Conjunctivae are normal. No scleral icterus. Neck: Neck supple. No JVD present. Cardiovascular: Regular rhythm, normal heart sounds and intact distal pulses. Exam reveals no gallop and no friction rub. No murmur heard. Tachycardic with rate in the 115-122 range. Pulmonary/Chest: He is in respiratory distress (mild, improved from yesterday). He has no w heezes. He has rales. Abdomina/Gl: Bowel sounds are normal. He exhibits no mass. There is no guarding. Firm, non tender. Musculoskeletal: He exhibits edema (edema involving all the extremities and torso, 1-2+ in the upper extremities and 1+ in the lower extremities). He exhibits no tenderness. Neurological: He is alert and oriented to person, place, and time. More awake this morning. Moves all extremities bilaterally. Skin: Skin is warm and dry. Rash noted. Scattered areas of ecchymosis and improving petechiae with few areas of violaceous rash on the right foot. Psychiatric: He has a normal mood and affect. Nursing note and vitals reviewed. DATA CBC: Lab Results Component Value Date WBC 19.96* 10/10/2015 RBC 2.45* 10/10/2015 HGB 6.8* 10/10/2015 HCT 20.8* 10/10/2015 MCV 84.7 10/10/2015 MCH 27.5 10/10/2015 MCHC 32.5 10/10/2015 RDW 45.9 10/10/2015 PLT 136* 10/10/2015 MPV 7.9 10/10/2015 DIFFTYPE MANUAL 10/10/2015 WBC: Lab Results Component Value Date WBC 19.96* 10/10/2015 NEUTABSMAN 18.36* 10/10/2015 NEUTROMAN 92 10/10/2015 LYMPHOABS 0.80* 10/10/2015 LYMPHOMAN 4 10/10/2015 MONOABSMAN 0.40 10/10/2015 MONOMAN 2 10/10/2015 EOSINOABS 0.17 10/09/2015 EOSINOMAN 1 10/09/2015 PLTEST ADEQUATE 10/10/2015 BANDSPCT 2 10/10/2015 METAABS 0.17* 10/09/2015 METAPCT 1 10/09/2015 MYELOABS 0.17* 10/09/2015 MYELOPCT 1 10/09/2015 CMP: Lab Results Component Value Date NA 133* 10/10/2015 K 4.4 10/10/2015 CL 94* 10/10/2015 CO2 30 10/10/2015 ANIONGAP 14 10/10/2015 GLUF 172* 10/10/2015 BUN 43* 10/10/2015 CREATININE 4.6* 10/10/2015 BCR 9 10/10/2015 CA 6.7* 10/10/2015 PROT 6.1* 10/10/2015 ALB 1.7* 10/10/2015 GLOB 3.6 10/01/2015 BILITOT 5.8* 10/10/2015 ALP 74 10/10/2015 AST 27 10/10/2015 ALT 19 10/10/2015 EGFR 16* 10/10/2015 Magnesium: Lab Results Component Value Date MG 2.6* 10/10/2015 Phosphorus: Lab Results Component Value Date PHOS 6.2* 10/10/2015 PT/INR: Lab Results Component Value Date PROTIME 10/07/2015 POOR QUALITY SPECIMEN FROM THE LINE DRAW, CHARGES CREDITED, PATIENT REDRAWN. INR 1.4 10/08/2015 PTT: Lab Results Component Value Date APTT 39* 10/01/2015 TSH: Lab Results Component Value Date TSH 0.75 10/03/2015 URIC ACID: 11.4 as of 10/05/2015 Medical Record Review: Reviewed extensively for this encounter. RADIOLOGIC: CXR as of 10/10/2015: FINDINGS: Interval placement of a percutaneous pigtail catheter over the left base repres enting insignificant decrease in size of left pleural effusion, now small. Unchanged small r ight pleural effusion seen. No pneumothorax seen. Unchanged bilateral patchy airspace opacit ies mixed with interstitial opacities, likely representing edema and/or pneumonia. Right-carlita ed central line and PICC line appears stable. Cardiomediastinal silhouette and osseous struc tures appear unremarkable. IMPRESSION: 1. Placement of a left-sided percutaneous pigtail catheter with significant decrease in s ize of left pleural effusion, now small. Chest w/o contrast as of 10/09/2015: FINDINGS: Significant interval decrease in size of right pleural effusion, now small. Moderate to lar ge left pleural effusion seen, slightly decreased in size. Moderate amount of consolidative dependent airspace opacities noted involving the lower lobes. In addition, predominantly cav itary with few airspace opacities noted, with a predominantly peripheral distribution. These appear essentially unchanged. No pneumothorax. Interval placement of a dialysis catheter the tip of which is located at the SVC/right atri al junction. Right-sided PICC line tip is located in the lower SVC. No cardiomegaly. Trace p ericardial effusion. No definite enlarged mediastinal or hilar lymph nodes by CT size criter ia seen within limits of unenhanced technique. Visualized thyroid appears unremarkable. No a cute or destructive osseous process seen. Visualized unenhanced liver appears grossly unrema rkable. Anterior spleen demonstrates a wedge-shaped hypodensity seen on series 3, image 48 m easuring 4.4 cm x 1.7 cm in size, suspected to represent a splenic infarct. This was not def initively seen on the prior examination. IMPRESSION: 1. Significant interval decrease in size of right pleural effusion, now small. Moderate t o large left pleural effusion appears slightly decreased in size. Associated consolidative o pacity seen involving the lower lobes, likely representing pneumonia or atelectasis. 2. Essentially unchanged appearance of numerous bilateral cavitary lesions or airspace op acities 3. Wedge-shaped hypodensity in the anterior spleen, suspicious for an infarct. CARDIOGRAM as of INDICATIONS: Infective Endocarditis. CONCLUSIONS 1. There is mild pulmonary hypertension. 2. Moderate sized, mobile vegetation attached to the septal tricuspid valve leaflet. FINDINGS: ECG rhythm: Sinus rhythm. Study: A 2-dimensional transthoracic echocardiogram with m-mode, spectral and color flow Do ppler was perfomed. Study: This was a technically adequate study. Left Ventricle: Overall left ventricular systolic function is normal with, an EF between 60 - 65 %. Left Ventricle: Left Ventricle ejection fraction by m-mode measures 82%. Left Ventricle: The left ventricle cavity size is normal. Left Ventricle: Left ventricular wall thickness is normal. Right Ventricle: The right ventricle is normal in size. Right Ventricle: The right ventricular systolic function is normal. Left Atrium: The left atrial size is normal Left Atrium: , and the LA measures 3.4cm. Right Atrium: The right atrial size is normal Right Atrium: , and the RA measures 3.0cm. IMPRESSION: 1. There is mild pulmonary hypertension. 2. Moderate sized, mobile vegetation attached to the septal tricuspid valve leaflet. PROBLEM LIST Principal Problem: Sepsis (HCC) Active Problems: Hyposmolality and/or hyponatremia MARCEL (acute kidney injury) (HCC) Leucocytosis Thrombocytopenia (HCC) Toxic metabolic encephalopathy Acute respiratory failure with hypoxia (HCC) Heroin abuse Methamphetamine abuse Tobacco abuse Acute septic pulmonary embolism (HCC) Acute infective endocarditis Moderate protein-calorie malnutrition (HCC) @MALDXPLAN@ ASSESSMENT & PLAN 1. MARCEL/ ARF: note continued worsening azotemia. Initial MARCEL probably hemodynamic in nature. However, now that Cr worsened,consideration of other etiologies and/or second hit injury including post infectious GN, AIN and or Vancomycin associated nephrotoxicity. Note low C3; C4 and ASO are normal; no urine eosinophils report available and UA reveals marked hematuri a without RBC casts. Possibility of post infectious (Staph) GN also entertained, though the actual management would still be treatment of the infection. The need for kidney biopsy is s till high as it may contrast the possible 3 DDx as noted above. Note significant hypoalbumin emia and third space volume loss. Patient on Vancomycin with elevated levels as of 6. Now off Vancomycin but kidney function continues to decline even with the dialysis. Results for YANG RIDLEY ( ) as of 10/10/2015 07:50 Ref. Range 10/01/2015 19:35 10/02/2015 03:30 10/03/2015 03:45 10/04/2015 04:40 10/05/2015 04:19 10/06/2015 04:03 10/06/2015 18:46 10/07/2015 05:34 10/08/2015 04:16 10/09/2015 03:26 10/10/2015 0 4:43 BUN Latest Ref Range: 8-25 mg/dL 75 (H) 70 (H) 65 (H) 78 (H) 97 (H) 115 (H) 68 (H) 77 (H) 5 8 (H) 51 (H) 43 (H) CREATININE Latest Ref Range: 0.70-1.30 mg/dL 1.9 (H) 1.5 (H) 1.2 1.6 (H) 2.9 (H) 3.9 (H) 2. 9 (H) 3.8 (H) 3.9 (H) 4.3 (H) 4.6 (H) BUN/CREAT Unknown 39 47 54 49 33 29 24 20 15 12 9 - Will dialyze patient daily with the SLEDD protocol. Will use dialysate bath 3K+, 2.5Ca, 3 0Bicarb and 138Na+. Goal UF today 3-3.5Kg as tolerated. See detailed orders. - Renal diet with 2gm Na+, 2gm K+, 1gm Phos, 1.2g protein/Kg body weight per day; total ramiro ories 9965-7175 Kcal/day. Dietary consult may assist to identify caloric needs. May need to commence feeding now as TPN or by NGT as tolerated. - Daily weights and strict I/O's. Okay with cautious IVF likely with NS. - Adjust dose of medications including antibiotics to estimated GFR ~10ml/min or ESRD dose regimen. - Avoid NSAIDs (including FRASER 2 inhibitors) and iodine contrast agents. - Avoid use of Magnesium and aluminum containing antacids. - Avoid use of Magnesium or phosphorus containing laxatives. - Get uric acid, phos, mag, CMP and CBC today and as needed. 2. Lytes/bone: - Na+: Improved and stable. Will maintain with appropriate dialysate Na+ bath to maintain s seth Na+ level WAL. - K+: Stable. Maintain with dialysate 3K+ bath. Monitor closely. - PO4: Elevated. Will correct with dialysis clearance as much as dialysis adequacy can yiel d. Will monitor closely. - Bicarb: Acidosis. Will maintain with appropriated dialysate bicarbonate bath. 3. BP control: BP control is acceptable. Avoid further hypotension. Continue pressor jones pport with UF on HD. 4. Anemia mangement: Hb is < 8. TSat 42%. - Will continue Epogen as needed with dialysis TIW to maintain HGB between 10-12g/dL. Will get Epogen 99003 units iv with dialysis today. 5. Thrombocytopenia likely due to sepsis and or AIN. Patient also with ?nose bleed or bleed ing in the mouth. Auto Dealer to f/u. 6. 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 ID following. Case and care plan discussed with the piercing artist and intensive care team. Will continue HD /SLEDD as ordered. Time spent on this encounter: 45 minutes of CCT of which about 50% was dedicated to discuss ion of case and care plan with the piercing artist and intensive care team and coordination of a cute dialysis treatment. Disposition: Possible to a care facility for continued antibiotic treatment. Code Status: Full Code ADARSH CREWS MD 10/10/2015 Chris Dinh DO - 10/10/2015 6:15 AM PDT Progress Notes by Chris Swann DO at 10/10/15614 Author: Chris Swann DO Service: (none) Author Type: Physician Filed: 10/10/15 0824 Date of Service: 10/10/15614 Status: Signed Bisque Brusher: Chris Swann DO (Physician) [facility] Service: Infectious Disease Progress Note Hospital Day: LOS: 9 days Post-Op Day: * No surgery found * SUBJECTIVE Patient Summary: CC: Fever, chest pain and altered mental status From Auto Dealer's admission note on 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 male with significant history of tobacco and drug abuse using daily heroin and methamphetamine, also on Suboxone. He initially presented to [facility] for progressive weakness, lethargy, and ge neralized pain (mostly his chest, neck, back, knees, ankles and toes) for the past 7 days. H e noticed that his ankles and right knee were swollen but not warm or erythematous. Accordin g to his girlfriend, he has been feeling sick and febrile for the past week with poor PO int elisha. Yesterday, she noticed that he seemed like he was hallucinating and talking to himself. He was very weak today that she had to assist him to get into the car to go the the ED. Exam at OSH was significant for point tenderness at the area of the cervical spine and posi tive Kernig's sign. LP was performed to rule out meningitis. IV antibiotics started, ceftria xone 2 gm and vancomycin [address] head and C-spine x-ray performed, MRI attempted but patient decompensated and was intubated for respiratory failure and airway protection. Significant labs: Na 114 (1435 hrs), BUN 81, Crea 2.48, WBC 19.9, Hb 11.6, Plt 51, Tbili 3. 6, AST 188, ALT 155, LA 1.7. CSF: clear, colorless, WBC 0, RBC 3. Protein 31. Glucose 50. Culture with no growth to d ate Blood cultures are reported to be growing GPCs at [facility] Transferred to [facility] for further care. MRI of brain and spine carried out with limited findi ngs due to non-contrast study. Evaluated by Nephrology, acute renal failure attributed to hemodynamics. Evaluated by Dr. Bhardwaj from orthopedics: Does not think patient has ankle septic joint and does not recomme nd surgical intervention. Echocardiogram showed moderate size mobile vegetation attached to the septal tricuspid valv e leaflet, moderate tricuspid regurgitation, moderate pulmonary hypertension with mildly enl arged right ventricle. Evaluated by CTS, surgery not recommended On 10/01, extubated On 10/02, he was transferred out of the ICU. On 10/04, patient had worsening mental status and also became tachypneic. He became more hy ponatremic with worsening renal function. Bilateral moderate sized pleural effusions were n oted on chest CT scan. Bedside ultrasound with bilateral pleural effusion, R>L. Left minimal and without echogenic ity suggestive of infectious pleural effusion. Left effusion is moderate with fibrin strands concerning for complicated/infectious pleural effusion. Right pig tail chest tube placed wi th purulent drainage. Head CT scan negative On 10/05, started on hemodialysis On October 08, left chest tube was placed. CC: Staphylococcal sepsis, right-sided endocarditis Chart reviewed: No new events. Subjective The patient denies any pruritus or pain in his skin. He does feel general achiness. No pleu ritic chest pain. Denies shortness of breath at this time. No nausea, vomiting or diarrhea. ROS No fever, chills sweats. No nausea, vomiting or diarrhea. No rashes or pruritis. No oral pa in. Scheduled Medications clonazePAM 1 mg Oral BID famotidine 20 mg Oral Daily Or famotidine 20 mg Intravenous Daily gentamicin Topical Daily heparin (porcine) 5000 unit/0.5mL 5,000 Units Subcutaneous 3 times per day midodrine 10 mg Oral TID mirtazapine 15 mg Oral Nightly nafcillin 2 g Intravenous Q4H polyethylene glycol 8.5 g Oral Daily sodium bicarbonate buffer 5 mL Infiltration Once sodium chloride 10 mL Intravenous 2 times per day Continuous Infusions dexmedetomidine in NS 0.2 mcg/kg/hr (10/09/15 1732) PRN Medications acetaminophen OR acetaminophen, albumin human, HYDROmorphone, lip moisturizer, ondanset eliana OR ondansetron, promethazine, sodium chloride, white petrolatum OBJECTIVE Vital Signs: BP 123/70 mmHg | Pulse 125 | Temp(Src) 99.1 F (37.3 C) (Oral) | Resp 37 | Ht 1.702 m (5 ' 7") | Wt 69.6 kg (153 lb 7 oz) | BMI 24.03 kg/m2 | SpO2 100% Temp: [98.2 F (36.8 C)-101.4 F (38.6 C)] 99.1 F (37.3 C) (10/09 0500) BP: (105-138)/(58-77) 123/70 mmHg (10/09 0500) Heart Rate: [111-136] 125 (10/09 0500) Resp: [27-41] 37 (10/09 050) SpO2: [91 %-100 %] 100 % (10/09 050) Weight: [69.6 kg (153 lb 7 oz)-72 kg (158 lb 11.7 oz)] 69.6 kg (153 lb 7 oz) (10/08 1418) Physical Exam Exam: Const: Vitals reviewed. No acute distress Skin: Numerous hyperemic skin lesions with central ecchymosis consistent with ecthyma gangr enosum ENT: No thrush. Lungs: CTAB, no rales or wheezes Heart: RRR, no murmur Abd: soft, NT, + bowel sounds Musculoskeletal: No gross deformity or active arthritis DATA CBC: Lab Results Component Value Date WBC 19.96* 10/10/2015 RBC 2.45* 10/10/2015 HGB 6.8* 10/10/2015 HCT 20.8* 10/10/2015 MCV 84.7 10/10/2015 MCH 27.5 10/10/2015 MCHC 32.5 10/10/2015 RDW 45.9 10/10/2015 PLT 136* 10/10/2015 MPV 7.9 10/10/2015 DIFFTYPE MANUAL 10/10/2015 WBC: Lab Results Component Value Date WBC 19.96* 10/10/2015 NEUTABSMAN 18.36* 10/10/2015 NEUTROMAN 92 10/10/2015 LYMPHOABS 0.80* 10/10/2015 LYMPHOMAN 4 10/10/2015 MONOABSMAN 0.40 10/10/2015 MONOMAN 2 10/10/2015 EOSINOABS 0.17 10/09/2015 EOSINOMAN 1 10/09/2015 PLTEST ADEQUATE 10/10/2015 BANDSPCT 2 10/10/2015 METAABS 0.17* 10/09/2015 METAPCT 1 10/09/2015 MYELOABS 0.17* 10/09/2015 MYELOPCT 1 10/09/2015 CMP: Lab Results Component Value Date NA 133* 10/10/2015 K 4.4 10/10/2015 CL 94* 10/10/2015 CO2 30 10/10/2015 ANIONGAP 14 10/10/2015 GLUF 172* 10/10/2015 BUN 43* 10/10/2015 CREATININE 4.6* 10/10/2015 BCR 9 10/10/2015 CA 6.7* 10/10/2015 PROT 6.1* 10/10/2015 ALB 1.7* 10/10/2015 GLOB 3.6 10/01/2015 BILITOT 5.9* 10/10/2015 ALP 74 10/10/2015 AST 27 10/10/2015 ALT 19 10/10/2015 EGFR 16* 10/10/2015 Micro: No new culture data. Medical Imaging: Yesterday's CT chest was viewd in PACS. Right pleural effusion is small, h as adjacent consolidation. Left pleural effusion minimally decreased in size. No significant change in numerous scattered cavitary lesions. Radiology report as follows: IMPRESSION: 1. Significant interval decrease in size of right pleural effusion, now small. Moderate t o large left pleural effusion appears slightly decreased in size. Associated consolidative o pacity seen involving the lower lobes, likely representing pneumonia or atelectasis. 2. Essentially unchanged appearance of numerous bilateral cavitary lesions or airspace op acities 3. Wedge-shaped hypodensity in the anterior spleen, suspicious for an infarct. LEM LIST Principal Problem: Sepsis (HCC) Active Problems: Hyposmolality and/or hyponatremia MARCEL (acute kidney injury) (HCC) Leucocytosis Thrombocytopenia (HCC) Toxic metabolic encephalopathy Acute respiratory failure with hypoxia (HCC) Heroin abuse Methamphetamine abuse Tobacco abuse Acute septic pulmonary embolism (HCC) Acute infective endocarditis Moderate protein-calorie malnutrition (HCC) ASSESSMENT & PLAN Gram-positive sepsis, MSSA tricuspid valve endocarditis -Patient has MSSA bacteremia, tricuspid valve endocarditis with septic pulmonary emboli re lated to IV drug use -Neck pain and back pain improved; noncontrast MRI of spine and brain on presentation show s no evidence of infection -No evidence of septic arthritis; evaluated by orthopedics -No surgical intervention warranted at this time; evaluated by CT surgery -Blood cultures on admission here have no growth to date. PICC placed. Central line sedrick pina -CT scan performed on October 08 confirmed continued pleural effusion on the left, appreciate chest tube placement. Fevers have improved. Continue nafcillin 2 g IV q4 hours. Encephalopathy, metabolic -Appears to be improving, we will continue to monitor. Acute hypoxemic respiratory failure -Extubated, appears stable, will monitor. MARCEL -No adjustment needed for nafcillin. Hope to avoid synergistic gentamicin. Abnormal LFTs -Resolved. Petechial/purpuric rash -Suspect ecthyma. We are slightly better today. IV drug use -Not a candidate for outpatient IV antibiotics. HIV negative. Code Status: Full Code CHRIS SWANN DO 10/10/2015 Jeny, YAIR Wilson - 10/09/2015 5:00 PM PDT Progress Notes by YAIR Gambino at 10/09/151699 Author: YAIR Gambino Service: Auto Dealer Author Type: Advanced Registere d Nurse Practitioner Filed: 10/09/15 1741 Date of Service: 10/09/151699 Status: Signed Bisque Brusher: YAIR Gambino (Advanced Registered Nurse Practitioner) [facility] Service: Auto Dealer Progress Note Yang Ridley 30 y.o. Hospital Day: LOS: 8 days Post-Op Day: * No surgery found * Consulting Physicians Treatment Team: Consulting Physician: Chris Swann DO Consulting Physician: Renetta Buck MD Consulting Physician: Gonzalez Bhardwaj MD Surgeon: Blanca Arias MD Consulting Physician: Blanca Arias MD Admitting Provider: Carly Thomas DO SUBJECTIVE Patient Summary: The patient is a 30 y.o. male with significant history of tobacco an d drug abuse using daily heroin and methamphetamine, also on Suboxone. He initially presen latasha to [facility] for progressive weakness, lethargy, and generalized pain (most ly his chest, neck, back, knees, ankles and toes) for 7 days. According to his girlfriend, he was feeling sick and febrile for a week with poor PO intake; she also noticed that his an kles and right knee were swollen but not warm or erythematous, and he seemed to be "halluinc ating and talking to himself". Exam at OSH was significant for point tenderness at the area of the cervical spine and posi tive Kernig's sign. LP was performed to rule out meningitis. IV antibiotics started, ceftria xone 2 gm and vancomycin [address] head and C-spine x-ray performed, MRI attempted but patient decompensated and was intubated for respiratory failure and airway protection. Significant labs: Na 114 (1435 hrs), BUN 81, Crea 2.48, WBC 19.9, Hb 11.6, Plt 51, Tbili 3. 6, AST 188, ALT 155, LA 1.7. CSF: clear, colorless, WBC 0, RBC 3. Transferred to [facility] for further care. Timeline: Evaluated by Nephrology, acute renal failure attributed to hemodynamics. Evaluated by Dr. Bhardwaj from orthopedics: Does not think patient has ankle septic joint and does not recom mend surgical intervention. Echocardiogram showed moderate size mobile vegetation attached to the septal tricuspid valv e leaflet, moderate tricuspid regurgitation, moderate pulmonary hypertension with mildly enl arged right ventricle. Evaluated by CTS, surgery not recommended On 10/01, extubated. MRI spine w/o evidence abscess On 10/02, he was transferred out of the ICU. 10/04-Transferred to ICU for worsening mental status, drop of Na from 122 to 117 and worseni ng renal function 10/05-HD line placed, started on dialysis. Right pigtail chest tube with drainage of 1400 ml serosanguineous exudate 10/06-Dialysis session. Improved encephalopathy. Anxiety requiring high dose precedex. 10/07-Right pigtail chest catheter removed 10/08-HD again today, 3L removed; Cxr with bilateral effusions which appear to be about the same as yesterday; will repeat CT chest to evaluate further; continues to be anxious, c/o pa in Overnight events: anxiety and pain control continue to be an issue OBJECTIVE VITAL SIGNS Temp: [98.2 F (36.8 C)-101.4 F (38.6 C)] 98.5 F (36.9 C) Heart Rate: [85-125] 121 Resp: [24-43] 28 BP: (85-138)/(49-76) 126/67 mmHg Intake/Output Summary (Last 24 hours) at 10/09/15 1700 Last data filed at 10/09/15 1418 Gross per 24 hour Intake 4052.9 ml Output 6600 ml Net -2547.1 ml EXAM GEN: awake, oriented to person, place and time NEURO: PERRLA, no facial asymmetry, moves all extremities well GCS: 15 HEENT: sclerae clear, nonicteric, oral mmm, pink, no exudates NECK: supple, trachea midline HEART: RRR, S1/S2, +murmur LUNGS: tachypneic, bibasilar crackles , no wheezing, rales or rhonchi, symmetric chest expa nsion, ABD: soft, nondistended, nontender to palpation, no masses, no hepatosplenomegaly EXTR: edema all extremities, no clubbing or cyanosis SKIN: diffuse purpuric palpable rash bilateral anterior lower extremities, also hand and fe et. LINES/TUBES: Right UE PICC, right IJ CVC 10/05 DATA Recent Labs Lab 10/09/15 0326 10/08/15 0416 10/07/15 1446 10/07/15 0534 WBC 16.82* 14.06* -- 12.88* RBC 2.70* 2.73* -- 1.93* HGB 7.4* 7.5* 7.6* 5.3* HCT 22.4* 22.3* 22.2* 15.1* MCV 82.9 81.9 -- 78.4* MCH 27.5 27.7 -- 27.4 MCHC 33.2 33.7 -- 34.9 RDW 43.8 44.2 -- 41.6 PLT 207 191 -- 165 MPV 7.9 7.8 -- 8.1 BANDSABS 0.84* 1.41* -- 0.52* MORPH 1+ RBC AND PLT MORPHOLOGY APPEAR NORMAL -- RBC AND PLT MORPHOLOGY APPEAR NORMAL Recent Labs Lab 10/09/15 0326 10/08/15 0416 10/07/15 1825 10/07/15 0534 10/06/15 0403 NA 132* 131* 131* < > 126* < > 122* K 4.4 4.2 -- -- 4.8 < > 5.5* CL 94* 93* -- -- 89* < > 89* CO2 27 24 -- -- 22* < > 18* ANIONGAP 15 18 -- -- 18 < > 21* GLUF 142* 129* -- -- 113* < > 102* BUN 51* 58* -- -- 77* < > 115* CREATININE 4.3* 3.9* -- -- 3.8* < > 3.9* BCR 12 15 -- -- 20 < > 29 CA 6.7* 6.6* -- -- 6.4* < > 6.4* ALB 1.9* 2.1* -- -- 1.9* -- 1.6* PROT 5.8* 5.4* -- -- 5.0* -- 4.5* BILITOT 5.4* 5.8* -- -- 6.0* -- 9.0* ALT 24 28 -- -- 29 -- 47 AST 25 27 -- -- 32 -- 58* EGFR 17* 19* -- -- 20* < > 19* PHOS 6.5* 6.5* -- -- 7.6* -- 8.1* MG 2.6* 2.7* -- -- -- -- 3.1* < > = values in this interval not displayed. Recent Labs Lab 10/08/15 0416 10/07/15 0534 10/07/15 0357 INR 1.4 1.5 POOR QUALITY SPECIMEN FROM THE LINE DRAW, CHARGES CREDITED, PATIENT REDRAWN. IMAGING XR CHEST 1 VIEW 10/09/2015 7:56 AM History: 30 years. Male. Numerous septic pulmonary emboli identified on chest CT 09/17 07/03. Bilateral pleural effusions. Follow-up exam. Technique: AP portable upright technique was performed at 0755 hours. Comparison: 10/08/15 Findings: A moderate LEFT pleural effusion is again visualized with pleural density measu ring approximately 16 mm in thickness at the lateral midportion of the LEFT chest, unchanged . Partial atelectasis of the LEFT lower lobe is due to pleural effusion. A smaller RIGHT pleural effusion still present with obscuration of the RIGHT hemidiaphragm. Mild atelectasis of the RIGHT lower lobe is also present. Nodular densities with central lucencies are again visualized throughout both lung barry, consistent with numerous small pulmonary septic emboli. Mild groundglass infiltrate is aga in visualized throughout the aerated portion of the LEFT lung. The cardiac volume is normal. The pulmonary vasculature is obscured. A persistent RIGHT internal jugular dialysis catheter is visualized with its tip at the theresa ction of the superior vena cava and RIGHT atrium. A RIGHT brachial central venous PICC sushma e is present with the tip at the junction of the superior vena cava and right atrium, in goo d position. IMPRESSION: 1. No significant change as compared with 10/08/15. 2. Moderate LEFT and mild RIGHT pleural effusions. 3. Numerous nodular densities throughout both lung barry representing normal pulmonary s eptic emboli. 4. Persistent mild alveolar infiltrate of the LEFT lung, unchanged. 5. Satisfactory position of life-support catheters. Echo Impression 1. LV size, wall thickness and systolic function are normal, with an EF of 60%. 2. The diastolic filling pattern indicates impaired relaxation consistent with mild dysfunc tion (Grade I). 3. The right ventricle is mildly enlarged, but right ventricular systolic function is dorothy l. 4. Moderate tricuspid regurgitation present. 5. There is moderate pulmonary hypertension. The right ventricular systolic pressure (pu lmonary artery systolic pressure), as measured by Doppler, is 50.27mmHg. 6. Moderate sized, mobile vegetation attached to the septal tricuspid valve leaflet. Microbiology data: 09/27 blood cultures obtained from [facility] are growing MSSA from 3 out of 3 bottles CSF culture result has not yet been faxed but per personnel from [place] microbiology, no growth 09/30 blood cultures with no growth to date 09/30 MRSA nasal PCR negative 09/30 tracheal aspirate culture grew 3+ MSSA 10/03 urine culture with no growth PROBLEM LIST Principal Problem: Sepsis (HCC) Active Problems: Hyposmolality and/or hyponatremia MARCEL (acute kidney injury) (HCC) Leucocytosis Thrombocytopenia (HCC) Toxic metabolic encephalopathy Acute respiratory failure with hypoxia (HCC) Heroin abuse Methamphetamine abuse Tobacco abuse Acute septic pulmonary embolism (HCC) Acute infective endocarditis Moderate protein-calorie malnutrition (HCC) ASSESSMENT & PLAN NEURO: Septic encephalopathy-Resolving CSF w/o growth from [facility] Continue remeron for anxiety/insomnia CV: Normotensive on midodrine, levophed still off Tachycardia secondary to IE and anxiety PULM: Hypoxemic respiratory failure-stable on minimal O2 via NC Pulmonary septic embolic from MSSA tricuspid valve IE CT chest repeated 10/08--Right pleural effusion less s/p pigtail chest tube 10/05. Exudati ve by Lights criteria. PH, glucose not consistent with complicated infected effusion. Left p leural effusion stable. GI/NUTRITION: Severe malnutrition secondary to infectious process Renal diet Mild Transaminitis with elevated bilirubin- Trending down, likely sepsis related . Hepat itis serologies and HIV negative. Continue to monitor. RENAL/LYTES: MARCEL. Anuric requiring HD. ATN vs C3 staph induced glomeurlonephritis. UA with hematuria. C3 low. C4 wnl. Low C3 likely from MSSA infectious process, but juan carlos l biopsy unlikely to alter management Unlikely AIN. Urine eosinophils negative Hepatitis serologies and HIV negative. Consider HCV RNA Hyponatremia-resolving. Cortisol and TSH wnl HD placed, started on dialysis 10/05 ID: MSSA tricuspid valve endocarditis. Bedside ultrasound shows tricuspic posterior leaflet involvement on RV inflow view and septal leaflet involvement seen on 4C view. Followed by ID. On nafcillin q6h adjusted for cholestatic picture (likely sepsis) Right pleural effusion s/p pigtail chest tube 10/05. Exudative by Lights criteria. PH, gl ucose not consistent with complicated infected effusion. Left pleural effusion minimal on be dside ultrasound (not amenable for thoracentesis) HEME: Platelets stable Anemia-Multifactorial, cannot exclude hemolysis. Required blood transfusion 10/06 (2 unit s PRBC). Continue to monitor ENDO: Monitor BS MUSC/SKIN: Vasculitis from IE/sepsis PROPHYLAXIS: Stress ulcer prophylaxis: on PPI DVT prophylaxis: Heparin SC VAP bundle: N/A Disposition: Critical care plan as above Code Status: Full Code *Please bill 45 minutes of critical care time spent evaluating the patient, reviewing the d michael and formulating a plan exclusive of all other procedures. YAIR GAMBINO 10/09/2015 5:00 PM Adarsh Wylie MD - 10/09/2015 3:26 PM PDTFormatting of this note might be different from the or iginal. Progress Notes by Adarsh Crews MD at 10/09/151525 Author: Adarsh Crews MD Service: Nephrology Author Type: Physician Filed: 10/09/15 1537 Date of Service: 10/09/151525 Status: Signed Bisque Brusher: Adarsh Crews MD (Physician) [facility] Service: Nephrology Progress Note Hospital Day: LOS: 8 days Post-Op Day: * No surgery found * SUBJECTIVE Patient Summary: Reviewed medical records expensively. The patient is a 30 y.o. male with significant history of tobacco and drug abuse using daily heroin and methamphetamine, also on Suboxone. He initially presented to [facility] for progressive weaknes s, lethargy, and generalized pain for the past 7 days. He noticed that his ankles and right knee were swollen but not warm or erythematous. According to his girlfriend, he has been fee ling sick and febrile for the past week with poor oral intake. LP was performed to rule out meningitis. IV antibiotics started, ceftriaxone 2 gm and vancomycin [address] head and C-spine x-ray performed, patient decompensated and was intubated for respiratory failure and airway protection and admitted to the ICU. Significant labs on initial presentation : Na 114 (1435 hrs), BUN 81, Crea 2.48, Over next 12-24 hrs, his sodium abruptly improved to a peak of126 by 6 AM on 10/01, so c ounter measures were started to avoid over correction. Patient received DDAVP X2 X 2 MCG AT 4 AND 8 AM ON 10/01 and is on D5W AT 200 ML/HR. He has never been hospitalized because of low sodium. He has never been symptomatic because of low sodium. There are no herbal preparation intake; he does not have hx of liver cirrhos is. He does not have hx of CHF, hypothyroidism or adrenal insufficiency.There is no hx of ch ronic diarrhea and no N/V. Events Overnight: Reports chest pain. Denies pain, nausea, vomiting. Had and tolerate d HD via the SLEDD protocol earlier today. Serum Na+ improved and stable. Still severely leonel guric. Pig tail catheter to right chest removed yesterday evening. CXR this morning showed w orsening pleural effusion, bilaterally. Reviewed labs and medical records. Note persisting, though improving anasarca. Had multiple unit blood transfusion yesterday. Scheduled Medications clonazePAM 1 mg Oral BID famotidine 20 mg Oral Daily Or famotidine 20 mg Intravenous Daily gentamicin Topical Daily heparin (porcine) 5000 unit/0.5mL 5,000 Units Subcutaneous 3 times per day midodrine 10 mg Oral TID mirtazapine 15 mg Oral Nightly nafcillin 2 g Intravenous Q4H polyethylene glycol 8.5 g Oral Daily sodium chloride 10 mL Intravenous 2 times per day Continuous Infusions dexmedetomidine in NS 0.5 mcg/kg/hr (10/09/15 0501) PRN Medications acetaminophen OR acetaminophen, albumin human, HYDROmorphone, lip moisturizer, ondanset eliana OR ondansetron, promethazine, sodium chloride, white petrolatum OBJECTIVE Vital Signs: BP 126/67 mmHg | Pulse 121 | Temp(Src) 98.5 F (36.9 C) (Oral) | Resp 28 | Ht 1.702 m (5 ' 7") | Wt 69.6 kg (153 lb 7 oz) | BMI 24.03 kg/m2 | SpO2 100% Temp: [98.2 F (36.8 C)-101.4 F (38.6 C)] 98.5 F (36.9 C) (10/08 143) BP: (85-138)/(49-76) 126/67 mmHg (10/08 143) Heart Rate: [85-125] 121 (10/08 143) Resp: [24-43] 28 (10/08 1429) SpO2: [91 %-100 %] 100 % (10/08 1429) Weight: [69.6 kg (153 lb 7 oz)-72 kg (158 lb 11.7 oz)] 69.6 kg (153 lb 7 oz) (10/08 141) Intake/Output Summary (Last 24 hours) at 10/09/15 1526 Last data filed at 10/09/15 1418 Gross per 24 hour Intake 4052.9 ml Output 6600 ml Net -2547.1 ml Physical Exam Constitutional: He is oriented to person, place, and time. He appears well-developed and we ll-nourished. HENT: Head: Normocephalic and atraumatic. Mouth/Throat: No oropharyngeal exudate. Blood crusts in the nostrils and mouth. Eyes: Conjunctivae are normal. No scleral icterus. Neck: Neck supple. No JVD present. Cardiovascular: Normal rate, regular rhythm, normal heart sounds and intact distal pulses. Exam reveals no gallop and no friction rub. No murmur heard. Pulmonary/Chest: Breath sounds normal. No respiratory distress. He has no wheezes. He has n o rales. Abdomina/Gl: Bowel sounds are normal. He exhibits no mass. There is no guarding. Firm, non tender. Musculoskeletal: He exhibits edema (edema involving all the extremities and torso, 1-2+ in the upper extremities and 1+ in the lower extremities). He exhibits no tenderness. Neurological: He is alert and oriented to person, place, and time. More awake this morning. Moves all extremities bilaterally. Skin: Skin is warm and dry. No rash noted. Scattered areas of ecchymosis and improving petechial rash. Psychiatric: He has a normal mood and affect. Nursing note and vitals reviewed. DATA CBC: Lab Results Component Value Date WBC 16.82* 10/09/2015 RBC 2.70* 10/09/2015 HGB 7.4* 10/09/2015 HCT 22.4* 10/09/2015 MCV 82.9 10/09/2015 MCH 27.5 10/09/2015 MCHC 33.2 10/09/2015 RDW 43.8 10/09/2015 PLT 207 10/09/2015 MPV 7.9 10/09/2015 DIFFTYPE MANUAL 10/09/2015 WBC: Lab Results Component Value Date WBC 16.82* 10/09/2015 NEUTABSMAN 13.95* 10/09/2015 NEUTROMAN 83 10/09/2015 LYMPHOABS 1.18 10/09/2015 LYMPHOMAN 7 10/09/2015 MONOABSMAN 0.34 10/09/2015 MONOMAN 2 10/09/2015 EOSINOABS 0.17 10/09/2015 EOSINOMAN 1 10/09/2015 PLTEST DECREASED 10/03/2015 BANDSPCT 5 10/09/2015 METAABS 0.17* 10/09/2015 METAPCT 1 10/09/2015 MYELOABS 0.17* 10/09/2015 MYELOPCT 1 10/09/2015 CMP: Lab Results Component Value Date NA 132* 10/09/2015 K 4.4 10/09/2015 CL 94* 10/09/2015 CO2 27 10/09/2015 ANIONGAP 15 10/09/2015 GLUF 142* 10/09/2015 BUN 51* 10/09/2015 CREATININE 4.3* 10/09/2015 BCR 12 10/09/2015 CA 6.7* 10/09/2015 PROT 5.8* 10/09/2015 ALB 1.9* 10/09/2015 GLOB 3.6 10/01/2015 BILITOT 5.4* 10/09/2015 ALP 61 10/09/2015 AST 25 10/09/2015 ALT 24 10/09/2015 EGFR 17* 10/09/2015 Magnesium: Lab Results Component Value Date MG 2.6* 10/09/2015 Phosphorus: Lab Results Component Value Date PHOS 6.5* 10/09/2015 PT/INR: Lab Results Component Value Date PROTIME 10/07/2015 POOR QUALITY SPECIMEN FROM THE LINE DRAW, CHARGES CREDITED, PATIENT REDRAWN. INR 1.4 10/08/2015 PTT: Lab Results Component Value Date APTT 39* 10/01/2015 TSH: Lab Results Component Value Date TSH 0.75 10/03/2015 URIC ACID: 11.4 as of 10/05/2015 Medical Record Review: Reviewed extensively for this encounter. RADIOLOGIC: CXR as of 10/09/2015: Findings: A moderate LEFT pleural effusion is again visualized with pleural density measu ring approximately 16 mm in thickness at the lateral midportion of the LEFT chest, unchanged . Partial atelectasis of the LEFT lower lobe is due to pleural effusion. A smaller RIGHT pleural effusion still present with obscuration of the RIGHT hemidiaphragm. Mild atelectasis of the RIGHT lower lobe is also present. Nodular densities with central lucencies are again visualized throughout both lung barry, consistent with numerous small pulmonary septic emboli. Mild groundglass infiltrate is aga in visualized throughout the aerated portion of the LEFT lung. The cardiac volume is normal. The pulmonary vasculature is obscured. A persistent RIGHT internal jugular dialysis catheter is visualized with its tip at the theresa ction of the superior vena cava and RIGHT atrium. A RIGHT brachial central venous PICC sushma e is present with the tip at the junction of the superior vena cava and right atrium, in goo d position. IMPRESSION: 1. No significant change as compared with 07/21/16. 2. Moderate LEFT and mild RIGHT pleural effusions. 3. Numerous nodular densities throughout both lung barry representing normal pulmonary s eptic emboli. 4. Persistent mild alveolar infiltrate of the LEFT lung, unchanged. 5. Satisfactory position of life-support catheters. LEM LIST Principal Problem: Sepsis (HCC) Active Problems: Hyposmolality and/or hyponatremia MARCEL (acute kidney injury) (HCC) Leucocytosis Thrombocytopenia (HCC) Toxic metabolic encephalopathy Acute respiratory failure with hypoxia (HCC) Heroin abuse Methamphetamine abuse Tobacco abuse Acute septic pulmonary embolism (HCC) Acute infective endocarditis Moderate protein-calorie malnutrition (HCC) @MALDXPLAN@ ASSESSMENT & PLAN 1. MARCEL/ ARF: note continued worsening azotemia. Initial MARCEL probably hemodynamic in nature. However, now that Cr worsened,consideration of other etiologies and/or second hit injury including post infectious GN, AIN and or Vancomycin associated nephrotoxicity. Note low C3; C4 and ASO are normal; no urine eosinophils report available and UA reveals marked hematuri a without RBC casts. Possibility of post infectious (Staph) GN also entertained, though the actual management would still be treatment of the infection. The need for kidney biopsy is s till high as it may contrast the possible 3 DDx as noted above. Note significant hypoalbumin emia and third space volume loss. Patient on Vancomycin with elevated levels as of 6. - Will dialyze patient daily with the SLEDD protocol. See orders. - Renal diet with 2gm Na+, 2gm K+, 1gm Phos, 1.2g protein/Kg body weight per day; total ramiro ories 4562-3226 Kcal/day. Dietary consult may assist to identify caloric needs. Feeding now as TPN or by NGT as tolerated. - Daily weights and strict I/O's. Okay with cautious IVF likely with NS. - Adjust dose of medications including antibiotics to estimated GFR ~10ml/min or ESRD dose regimen. - Avoid NSAIDs (including FRASER 2 inhibitors) and iodine contrast agents. - Avoid use of Magnesium and aluminum containing antacids. - Avoid use of Magnesium or phosphorus containing laxatives. - Get uric acid, phos, mag, CMP and CBC today and as needed. 2. Lytes/bone: - Na+: Improved and stable. Will maintain with appropriate dialysate Na+ bath to maintain s seth Na+ level WAL. - K+: Stable. Maintain with dialysate 3K+ bath. Monitor closely. - PO4: Elevated. Will correct with dialysis clearance as much as dialysis adequacy can asad mane Will monitor closely. - Bicarb: Acidosis. Will maintain with appropriated dialysate bicarbonate bath. 3. BP control: BP control is acceptable. Avoid further hypotension. Continue pressor jones pport with UF on HD. 4. Anemia mangement: Hb is < 8. TSat 42%. - Will continue Epogen as needed with dialysis TIW to maintain HGB between 10-12g/dL. 5. Thrombocytopenia likely due to sepsis and or AIN. Patient also with ?nose bleed or bleed ing in the mouth. Auto Dealer to f/u. 6. 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 ID following. Case and care plan discussed with the piercing artist and intensive care team. Need to continue RAILCAR SWITCHMAN with SLEDD protocol discussed. Agreeable. Will continue HD/SLEDD as ordered. Time spent on this encounter: 45 minutes of CCT of which about 50% was dedicated to discuss ion of case and care plan with the piercing artist and intensive care team and coordination of a cute dialysis treatment. Disposition: Possible to a care facility for continued antibiotic treatment. Code Status: Full Code ADARSH CREWS MD 10/09/2015 onversion Transac tion, Provider Unknown - 10/09/2015 12:07 PM PDTFormatting of this note might be different f rom the original. Progress Notes by Lolly Bajwa RPH at 10/09/151206 Author: Lolly Bajwa RPH Service: (none) Author Type: Pharmacist Filed: 10/09/152 Date of Service: 10/09/151206 Status: Signed Bisque Brusher: Lolly Bajwa RPH (Pharmacist) Clinical Pharmacy Note: Renal Monitoring Yang Ridley 30 y.o. male Ht Readings from Last 1 Encounters: 10/01/15 1.702 m (5' 7") Wt Readings from Last 1 Encounters: 10/09/15 72 kg (158 lb 11.7 oz) Patient is on hemodialysis. Pharmacy dosing for renal function. Will order the following dosage adjustments: Pepcid 20 mg IV/PO Q24H Pharmacy will continue to monitor for changes in medication orders and adjust accordingly. Lolly Bajwa [facility] 10/09/2015 12:07 PM onver patti Championaction, Provider Unknown - 10/09/2015 11:59 AM PDT Case Management by SAMEERA Huggins at 10/09/15 7706 Author: SAMEERA Huggins Service: (none) Author Type: Fuse Assembler Filed: 10/09/15 1203 Date of Service: 10/09/151158 Status: Signed Bisque Brusher: SAMEERA Huggins (Fuse Assembler) Attended morning rounds. Pt is on dialysis. Pt's SO came to my office to ask for a hotel vo ucher. I explained that the vouchers are for immediate family and that I could not provide a voucher to her. Explained that the local hotels have hospital rates. SO states that she has been "clean" for 8 days (length of pt's hospital stay). Her 7yo was present with her. She states that pt "accepted Mookie into his heart" a few days ago and SO i s encouraged by this as she states that pt is motivated to stop using. Pt will need rat exterminator IV abx. His length of hospitalization is going to be lengthy as it will be very difficult to find a place for him after d/c where he can receive IV abx. Chris Dinh DO - 10/09/2015 6:19 AM PDTFormatting of this note might be different from the gregory mer. Progress Notes by Chris Swann DO at 10/09/15618 Author: Chris Swann DO Service: (none) Author Type: Physician Filed: 10/09/15 0852 Date of Service: 10/09/15618 Status: Signed Bisque Brusher: Chris Swann DO (Physician) [facility] Service: Infectious Disease Progress Note Hospital Day: LOS: 8 days Post-Op Day: * No surgery found * SUBJECTIVE Patient Summary: CC: Fever, chest pain and altered mental status From Auto Dealer's admission note on 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 male with significant history of tobacco and drug abuse using daily heroin and methamphetamine, also on Suboxone. He initially presented to [facility] for progressive weakness, lethargy, and ge neralized pain (mostly his chest, neck, back, knees, ankles and toes) for the past 7 days. H e noticed that his ankles and right knee were swollen but not warm or erythematous. Accordbetzy g to his girlfriend, he has been feeling sick and febrile for the past week with poor PO int elisha. Yesterday, she noticed that he seemed like he was hallucinating and talking to himself. He was very weak today that she had to assist him to get into the car to go the the ED. Exam at OSH was significant for point tenderness at the area of the cervical spine and posi tive Kernig's sign. LP was performed to rule out meningitis. IV antibiotics started, ceftria xone 2 gm and vancomycin [address] head and C-spine x-ray performed, MRI attempted but patient decompensated and was intubated for respiratory failure and airway protection. Significant labs: Na 114 (1435 hrs), BUN 81, Crea 2.48, WBC 19.9, Hb 11.6, Plt 51, Tbili 3. 6, AST 188, ALT 155, LA 1.7. CSF: clear, colorless, WBC 0, RBC 3. Protein 31. Glucose 50. Culture with no growth to d ate Blood cultures are reported to be growing GPCs at [facility] Transferred to [facility] for further care. MRI of brain and spine carried out with limited findi ngs due to non-contrast study. Evaluated by Nephrology, acute renal failure attributed to hemodynamics. Evaluated by Dr. Bhardwaj from orthopedics: Does not think patient has ankle septic joint and does not recomme nd surgical intervention. Echocardiogram showed moderate size mobile vegetation attached to the septal tricuspid valv e leaflet, moderate tricuspid regurgitation, moderate pulmonary hypertension with mildly enl arged right ventricle. Evaluated by CTS, surgery not recommended On 10/01, extubated On 10/02, he was transferred out of the ICU. On 10/04, patient had worsening mental status and also became tachypneic. He became more hy ponatremic with worsening renal function. Bilateral moderate sized pleural effusions were n oted on chest CT scan. Bedside ultrasound with bilateral pleural effusion, R>L. Left minimal and without echogenic ity suggestive of infectious pleural effusion. Left effusion is moderate with fibrin strands concerning for complicated/infectious pleural effusion. Right pig tail chest tube placed wi th purulent drainage. Head CT scan negative On 10/05, started on hemodialysis CC: Staphylococcal sepsis, right-sided endocarditis Chart reviewed: No new events. Subjective The patient denies any pruritus or pain in his skin. He does feel general achiness. No pleu ritic chest pain. Denies shortness of breath at this time. No nausea, vomiting or diarrhea. ROS No fever, chills sweats. No nausea, vomiting or diarrhea. No rashes or pruritis. No oral pa in. Scheduled Medications clonazePAM 1 mg Oral BID gentamicin Topical Daily heparin (porcine) 5000 unit/0.5mL 5,000 Units Subcutaneous 3 times per day midodrine 10 mg Oral TID mirtazapine 15 mg Oral Nightly nafcillin 2 g Intravenous Q6H pantoprazole 40 mg Intravenous BID polyethylene glycol 8.5 g Oral Daily sodium chloride 10 mL Intravenous 2 times per day Continuous Infusions dexmedetomidine in NS 0.5 mcg/kg/hr (10/09/15 0501) norepinephrine in D5W 64 mcg/mL Stopped (10/07/152219) PRN Medications acetaminophen OR acetaminophen, albumin human, HYDROmorphone, lip moisturizer, ondanset eliana OR ondansetron, promethazine, sodium chloride OBJECTIVE Vital Signs: BP 109/64 mmHg | Pulse 105 | Temp(Src) 99.2 F (37.3 C) (Oral) | Resp 43 | Ht 1.702 m (5 ' 7") | Wt 70.6 kg (155 lb 10.3 oz) | BMI 24.37 kg/m2 | SpO2 94% Temp: [97.2 F (36.2 C)-99.2 F (37.3 C)] 99.2 F (37.3 C) (10/08 1999) BP: (85-122)/(49-71) 109/64 mmHg (10/08 0400) Heart Rate: [85-116] 105 (10/08 040) Resp: [13-43] 43 (10/08 040) SpO2: [91 %-100 %] 94 % (10/08 040) Weight: [70.6 kg (155 lb 10.3 oz)-72.4 kg (159 lb 9.8 oz)] 70.6 kg (155 lb 10.3 oz) (10/07 1330) Physical Exam Exam: Const: Vitals reviewed. No acute distress Skin: Numerous hyperemic skin lesions with central ecchymosis consistent with ecthyma gangr enosum ENT: No thrush. Lungs: CTAB, no rales or wheezes Heart: RRR, no murmur Abd: soft, NT, + bowel sounds Musculoskeletal: No gross deformity or active arthritis DATA CBC: Lab Results Component Value Date WBC 16.82* 10/09/2015 RBC 2.70* 10/09/2015 HGB 7.4* 10/09/2015 HCT 22.4* 10/09/2015 MCV 82.9 10/09/2015 MCH 27.5 10/09/2015 MCHC 33.2 10/09/2015 RDW 43.8 10/09/2015 PLT 207 10/09/2015 MPV 7.9 10/09/2015 DIFFTYPE MANUAL 10/09/2015 WBC: Lab Results Component Value Date WBC 16.82* 10/09/2015 NEUTABSMAN 13.95* 10/09/2015 NEUTROMAN 83 10/09/2015 LYMPHOABS 1.18 10/09/2015 LYMPHOMAN 7 10/09/2015 MONOABSMAN 0.34 10/09/2015 MONOMAN 2 10/09/2015 EOSINOABS 0.17 10/09/2015 EOSINOMAN 1 10/09/2015 PLTEST DECREASED 10/03/2015 BANDSPCT 5 10/09/2015 METAABS 0.17* 10/09/2015 METAPCT 1 10/09/2015 MYELOABS 0.17* 10/09/2015 MYELOPCT 1 10/09/2015 CMP: Lab Results Component Value Date NA 132* 10/09/2015 K 4.4 10/09/2015 CL 94* 10/09/2015 CO2 27 10/09/2015 ANIONGAP 15 10/09/2015 GLUF 142* 10/09/2015 BUN 51* 10/09/2015 CREATININE 4.3* 10/09/2015 BCR 12 10/09/2015 CA 6.7* 10/09/2015 PROT 5.8* 10/09/2015 ALB 1.9* 10/09/2015 GLOB 3.6 10/01/2015 BILITOT 5.4* 10/09/2015 ALP 61 10/09/2015 AST 25 10/09/2015 ALT 24 10/09/2015 EGFR 17* 10/09/2015 Micro: No new culture data. Medical Imaging: This mornings chest x-ray was viewed in PACS and shows increasing layterin g pleural effusion on the left, no change in right pleural effusion with pigtail catheter in place. Official report as follows: IMPRESSION: 1. Progressive, moderate LEFT pleural effusion. 2. Stable, small RIGHT pleural effusion. 3. Mildly progressive and moderate alveolar infiltrates suggesting mild alveolar pulmonar y edema. 4. Persistent nodular densities throughout both lungs, representing previously identified septic emboli. 5. Satisfactory position of life-support catheters. . PROBLEM LIST Principal Problem: Sepsis (HCC) Active Problems: Hyposmolality and/or hyponatremia MARCEL (acute kidney injury) (HCC) Leucocytosis Thrombocytopenia (HCC) Toxic metabolic encephalopathy Acute respiratory failure with hypoxia (HCC) Heroin abuse Methamphetamine abuse Tobacco abuse Acute septic pulmonary embolism (HCC) Acute infective endocarditis Moderate protein-calorie malnutrition (HCC) ASSESSMENT & PLAN Gram-positive sepsis, MSSA tricuspid valve endocarditis -Patient has MSSA bacteremia, tricuspid valve endocarditis with septic pulmonary emboli re lated to IV drug use -Neck pain and back pain improved; noncontrast MRI of spine and brain on presentation show s no evidence of infection -No evidence of septic arthritis; evaluated by orthopedics -No surgical intervention warranted at this time; evaluated by CT surgery -Blood cultures on admission here have no growth to date. PICC placed. Central line sedrick pina -The patient continues to have fever, worsening leukocytosis. Exam is consistent with ecth yma suggesting ongoing sepsis. I have maximized his dose of nafcillin, 2 g IV q4 hours. Cons ider CT of the chest to reassess pleural effusions, may need chest tubes or decortication as this is the only likely remaining undrained source of ongoing sepsis. Encephalopathy, metabolic -Appears to be improving, we will continue to monitor. Acute hypoxemic respiratory failure -Extubated, appears stable, will monitor. MARCEL -No adjustment needed for nafcillin. Hopefully to avoid synergistic gentamicin. Abnormal LFTs -Resolved. Petechial/purpuric rash -Suspect ecthyma. IV drug use -Not a candidate for outpatient IV antibiotics. HIV negative. Code Status: Full Code CHRIS SWANN DO 10/09/2015 onversion Transaction , Provider Unknown - 10/08/2015 11:44 AM PDT Progress Notes by Ana Garnett RD, CD at 10/08/15 1141 Author: Ana Garnett RD, CD Service: (none) Author Type: Registered Dietitian Filed: 10/08/15 1144 Date of Service: 10/08/15 1144 Status: Signed Bisque Brusher: Ana Garnett RD, CD (Registered Dietitian) 10/08/15 1044 Subjective Timepoint Follow up (high-risk) Pt c/o Pt has been on SLEDD. Lethargic when seen this AM, reportedly slept poorly last nigh t. Pt reports that he had a good appetite this AM. C/o dry mouth but is otherwise tolerating a PO diet. Fluid / Beverage Intake Oral Fluids Amount Drinking sips of liquids ad radha. Liquid Meal Replacement or Supplement Novasource Renal ordered TID. Pt states that he has n ot been receiving these. Would prefer chocolate flavor but ok with other flavors if chocolat e is not available. Food Intake Amount of Food Ate about 50% of breakfast this AM per RN. Pt is on Remeron which may help t o stimulate appetite. Type of Food / Meals Renal, cardiac diet. Nutrition-Focused Physical Findings Overall Appearance Appears thin and weak. Lethargic this AM. Noted to have anasarca but imp roving Body Language 3+ upper extremity and 2+ lower extremity edema. Skin Pt has a petechial rash. Anthropometrics Weight change Wt is up 3.3 kg from admit wt. Suspect fluid retention is masking ongoing los s of LBM with catabolic illness. I/Os indicate that pt is approximately 6.3 L fluid positive . Fluid being removed during dialysis sessions as tolerated. Biochemical data, medical tests, and procedures reviewed Biochemical data, medical tests, and procedures reviewed Na 131 (L), BUN 58 (H), Cr 3.9 (H) - on HD per nephrology. Phos also elevated at 6.5. May benefit from a phosphate binder. BG has been controlled in the 90s-100s. Estimated Energy Needs Total Energy Estimated Needs 3219-8227 kcal/day Method for Estimating Needs 30-35 kcal/kg admit wt( 69.1 kg) Estimated Protein Needs Total Protein Estimated Needs 83-103 g protein/day Method for Estimating Needs 1.2-1.5 g protein/kg admit wt (69.1 kg) Recommendations Recommended energy needs Continue renal diet as ordered. House diet is appropriate to ensur e pt receives meals on a consistent basis. Additional preferred foods can be provided as tiny ired. Contacted kitchen to ensure that Novasource Renal supplements are sent TID to help pro vide additional kcal/protein. Emphasized the importance of adequate nutrition for recovery a nd nutrition repletion. Pt expressed understanding. Will continue to monitor clinical course and f/u with further nutrition recs as needed. 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 male with significant history of tobacco and drug abuse using daily heroin and methamphetamine, also on Suboxone. He initially presented to [facility] for progressive weakness, lethargy, and ge neralized pain (mostly his chest, neck, back, knees, ankles and toes) for the past 7 days. Imer corbett noticed that his ankles and right knee were swollen but not warm or erythematous. Nessa barnett to his girlfriend, he has been feeling sick and febrile for the past week with poor PO int elisha. Yesterday, she noticed that he seemed like he was hallucinating and talking to himself. He was very weak today that she had to assist him to get into the car to go the the ED. Exam at OSH was significant for point tenderness at the area of the cervical spine and posi tive Kernig's sign. LP was performed to rule out meningitis. IV antibiotics started, ceftria xone 2 gm and vancomycin [address] head and C-spine x-ray performed, MRI attempted but patient decompensated and was intubated for respiratory failure and airway protection. Significant labs: Na 114 (1435 hrs), BUN 81, Crea 2.48, WBC 19.9, Hb 11.6, Plt 51, Tbili 3. 6, AST 188, ALT 155, LA 1.7. CSF: clear, colorless, WBC 0, RBC 3. Protein 31. Glucose 50. Culture with no growth to d ate Blood cultures are reported to be growing GPCs at [facility] Transferred to [facility] for further care. MRI of brain and spine carried out with limited findi ngs due to non-contrast study. Evaluated by Nephrology, acute renal failure attributed to hemodynamics. Evaluated by Dr. Bhardwaj from orthopedics: Does not think patient has ankle septic joint and does not recomme nd surgical intervention. Echocardiogram showed moderate size mobile vegetation attached to the septal tricuspid valv e leaflet, moderate tricuspid regurgitation, moderate pulmonary hypertension with mildly enl arged right ventricle. Evaluated by CTS, surgery not recommended On 10/01, extubated On 10/02, he was transferred out of the ICU. On 10/04, patient had worsening mental status and also became tachypneic. He became more hy ponatremic with worsening renal function. Bilateral moderate sized pleural effusions were n oted on chest CT scan. Bedside ultrasound with bilateral pleural effusion, R>L. Left minimal and without echogenic ity suggestive of infectious pleural effusion. Left effusion is moderate with fibrin strands concerning for complicated/infectious pleural effusion. Right pig tail chest tube placed wi th purulent drainage. Head CT scan negative On 10/05, started on hemodialysis Events Overnight: Remains afebrile and hemodynamically stable. Awake and conversant today. States he hurts everywhere. Has not been noted to have epistaxis or bleeding. Remain s on oxygen supplementation. Continues to be oliguric. Received blood transfusion yesterday. Scheduled Medications gentamicin Topical Daily heparin (porcine) 5000 unit/0.5mL 5,000 Units Subcutaneous 3 times per day midodrine 10 mg Oral TID mirtazapine 15 mg Oral Nightly nafcillin 2 g Intravenous Q6H pantoprazole 40 mg Intravenous BID polyethylene glycol 17 g Oral Daily sodium chloride 10 mL Intravenous 2 times per day sodium citrate anticoagulant 4 % 6 mL Intracatheter Once in dialysis Continuous Infusions dexmedetomidine in NS 0.7 mcg/kg/hr (10/08/15 0600) norepinephrine in D5W 64 mcg/mL Stopped (10/07/15 2220) PRN Medications acetaminophen OR acetaminophen, albumin human, HYDROmorphone, lip moisturizer, ondanset eliana OR ondansetron, promethazine, sodium chloride OBJECTIVE Vital Signs: BP 106/61 mmHg | Pulse 101 | Temp(Src) 97.2 F (36.2 C) (Oral) | Resp 33 | Ht 1.702 m (5 ' 7") | Wt 72.4 kg (159 lb 9.8 oz) | BMI 24.99 kg/m2 | SpO2 96% Temp: [97.2 F (36.2 C)-98.9 F (37.2 C)] 97.2 F (36.2 C) (10/07 06) BP: (81-126)/(47-63) 106/61 mmHg (10/07 699) Heart Rate: [76-108] 101 (10/07 699) Resp: [7-44] 33 (10/07 699) SpO2: [90 %-99 %] 96 % (10/07 699) Weight: [70.4 kg (155 lb 3.3 oz)-72.4 kg (159 lb 9.8 oz)] 72.4 kg (159 lb 9.8 oz) (10/07 0 728) Physical Exam Vital signs have been reviewed Gen.: Awake and alert. Oriented x 2. Undergoing SLEDD HEENT: Normocephalic. Icteric sclerae. Conjunctival pallor is noted. Petechial lesions at n paola and oral mucosae. Dry crusted blood at nares. Dry oral mucosa. Neck is supple with no cervical lymphadenopathy. Some petechiae are noted at the left neck where he had a central l ine that had been removed R IJ hemodialysis catheter unremarkable Lungs: Decreased at the bases. Right chest tube in place. No rales, wheezes or rhonchi not ed Cardiovascular: Normal rate, regular rhythm. Systolic murmur is noted Abdomen: No distention. Soft. No tenderness or palpable masses Skin: Petechial lesions at antecubital area and forearms worse since 10/04 with petechiae at both hands with dark/black discoloration at the area of the MCPs and PIPs of both hands but no clear-cut joint effusion. Some of the lesions are purpuric. No palpable nodes at palms/ feet. He is able to move his hands without difficulty; skin lesions are less tender Petechial lesions at his legs appear better but he has worsening petechiae/purpura at both feet. PICC site at right upper extremity is unremarkable Musculoskeletal: No inflamed looking joints Neurologic: Appears to be able to move all extremities. DATA CBC: Lab Results Component Value Date WBC 14.06* 10/08/2015 RBC 2.73* 10/08/2015 HGB 7.5* 10/08/2015 HCT 22.3* 10/08/2015 MCV 81.9 10/08/2015 MCH 27.7 10/08/2015 MCHC 33.7 10/08/2015 RDW 44.2 10/08/2015 PLT 191 10/08/2015 MPV 7.8 10/08/2015 DIFFTYPE MANUAL 10/08/2015 WBC: Lab Results Component Value Date WBC 14.06* 10/08/2015 NEUTABSMAN 10.97* 10/08/2015 NEUTROMAN 78 10/08/2015 LYMPHOABS 1.12 10/08/2015 LYMPHOMAN 8 10/08/2015 MONOABSMAN 0.28 10/08/2015 MONOMAN 2 10/08/2015 PLTEST DECREASED 10/03/2015 BANDSPCT 10 10/08/2015 METAABS 0.28* 10/08/2015 METAPCT 2 10/08/2015 CMP: Lab Results Component Value Date NA 131* 10/08/2015 K 4.2 10/08/2015 CL 93* 10/08/2015 CO2 24 10/08/2015 ANIONGAP 18 10/08/2015 GLUF 129* 10/08/2015 BUN 58* 10/08/2015 CREATININE 3.9* 10/08/2015 BCR 15 10/08/2015 CA 6.6* 10/08/2015 PROT 5.4* 10/08/2015 ALB 2.1* 10/08/2015 GLOB 3.6 10/01/2015 BILITOT 5.8* 10/08/2015 ALP 49 10/08/2015 AST 27 10/08/2015 ALT 28 10/08/2015 EGFR 19* 10/08/2015 PT/INR: Lab Results Component Value Date PROTIME 10/07/2015 POOR QUALITY SPECIMEN FROM THE LINE DRAW, CHARGES CREDITED, PATIENT REDRAWN. INR 1.4 10/08/2015 PTT: Lab Results Component Value Date APTT 39* 10/01/2015 [APTT} Component Latest Ref [facility] 10/04/2015 3:32 PM URINE EOSINOPHILS <1 % NO EOSINOPHILS SEEN Component Latest Ref [facility] 10/04/2015 3:32 PM ASO 0 - 250 IU/mL <[address] Lat[address] [facility] 10/04/2015 3:32 PM COMPLEMENT C3 90 - 180 mg/dL 65 (L) COMPLEMENT C4 10 - 40 mg/dL 10.8 Microbiology data: 09/27 blood cultures obtained from [facility] are growing MSSA from 3 out of 3 bottles CSF culture reportedly with no growth 09/30 blood cultures with no growth 09/30 MRSA nasal PCR negative 09/30 tracheal aspirate culture grew 3+ MSSA 10/03 urine culture with no growth 10/05 pleural fluid Gram stain 2+ WBCs, no organisms; culture with no growth to date TP 3.4, LDH 788, pH 7.57. 239694 RBCs/mL, 3154 WBCs with 77% neutrophils Radiology data: Impression 1. Progressive, moderate LEFT pleural effusion. 2. Stable, small RIGHT pleural effusion. 3. Mildly progressive and moderate alveolar infiltrates suggesting mild alveolar pulmonary edema. 4. Persistent nodular densities throughout both lungs, representing previously identified septic emboli. 5. Satisfactory position of life-support catheters. chest 1 view [[id number]] Impression 1. No acute intracranial hemorrhage, mass or infarct. head without contrast [[id number]] Impression 1. Bilateral cavitary lesions of the lungs consistent with septic emboli. 2. Bilateral moderate sized pleural effusions with adjacent basilar atelectasis. 3. Diffuse ascites. 4. Dilated and thickened small bowel loops of the central abdomen, may represent obstructi on. Nonspecific enteritis is also possible including inflammatory, infectious or ischemic et iologies. chest abdomen pelvis without contrast [[id number]] Impression No acute or focal intracranial abnormality . No evidence of infarct or hemorrhage. RADIA Electronically signed by Maegan Maddox MD on Oct 02 2015 4:49AM Referring Provider Line: [phone] ID: [id number] MRI brain without contrast [[id number]] Impression No cord impingement or cord signal abnormality identified. No findings suggesting diskitis or osteomyelitis. Prominence to the epidural space in the upper cervical spine , potentially a prominent epidural venous plexus. Evaluation for abscess is limited without IV contrast. Followup suggested. RADIA Electronically signed by Maegan Maddox MD on Oct 02 2015 5:45AM Referring Provider Line: [phone] ID: [id number] MRI cervical spine without contrast [[id number]] No significant abnormality identified in the thoracic spine . Evaluation for epidural absce ss is limited without IV contrast. Right-sided pleural effusion . Multiple cavitating lung nodules. This is suboptimally image d with this technique. Consider correlation with CT. RADIA Electronically signed by Maegan Maddox MD on Oct 02 2015 5:00AM Referring Provider Line: [phone] ID: [id number] MRI thoracic spine without contrast [[id number]] Impression Degenerative disk disease at L5-S1. No significant central canal stenosis. Other disk space s are unremarkable . Evaluation for epidural abscess is limited without IV contrast. Bilateral posterior paraspinal muscular edema , nonspecific. No fluid collection amenable t o drainage is identified. RADIA Electronically signed by Maegan Maddox MD on Oct 02 2015 5:03AM Referring Provider Line: [phone] ID: [id number] MRI lumbar spine without contrast [[id number]] Impression 1. LV size, wall thickness and systolic function are normal, with an EF of 60%. 2. The diastolic filling pattern indicates impaired relaxation consistent with mild dysfunc tion (Grade I). 3. The right ventricle is mildly enlarged, but right ventricular systolic function is dorothy l. 4. Moderate tricuspid regurgitation present. 5. There is moderate pulmonary hypertension. The right ventricular systolic pressure (pul monary artery systolic pressure), as measured by Doppler, is 50.27mmHg. 6. Moderate sized, mobile vegetation attached to the septal tricuspid valve leaflet. Echo cardiac adult complete [[id number]] PROBLEM LIST Principal Problem: Sepsis (HCC) Active Problems: Hyposmolality and/or hyponatremia MARCEL (acute kidney injury) (HCC) Leucocytosis Thrombocytopenia (HCC) Toxic metabolic encephalopathy Acute respiratory failure with hypoxia (HCC) Heroin abuse Methamphetamine abuse Tobacco abuse Acute septic pulmonary embolism (HCC) Acute infective endocarditis Moderate protein-calorie malnutrition (HCC) ASSESSMENT & PLAN Gram-positive sepsis -Patient has MSSA bacteremia, tricuspid valve endocarditis with septic pulmonary emboli re lated to IV drug use -Neck pain and back pain improved; noncontrast MRI of spine and brain on presentation show s no evidence of infection -No evidence of septic arthritis; evaluated by orthopedics -No surgical intervention warranted at this time; evaluated by CT surgery -Blood cultures on admission here have no growth to date. PICC placed. Central line sedrick pina -MRSA nasal PCR negative. Blood cultures from [facility] and tracheal aspirate culture at [facility] have been confirmed to be MSSA. He had been initially on IV vancomycin and ceftria xone and on 10/03 transitioned to IV nafcillin with plan for 6 weeks of IV antibiotic therapy in a supervised setting -Leukocytosis is trending downwards and patient is afebrile. Has complications of endocar ditis, see below Encephalopathy, metabolic -Mental status improved previously then deteriorated on 10/04 with return to ICU -Initial CSF analysis at [facility] had been reassuring; no reported growth on CSF cult ure. -He has no meningeal signs on exam; head CT with no acute findings. Prior non-contrast MR I negative. -hyponatremia was considered to possibly be contributory; Na now 131 -encephalopathy is improving Acute hypoxemic respiratory failure -Initially improved and the patient had been successfully extubated; currently on O2/NC -Known septic pulmonary emboli -On 10/04, found to have bilateral pleural effusions. Status post pigtail chest tube place ment, right; 1 L of purulent drainage had been removed. Pleural fluid analysis consistent wi th exudate. Culture with no growth to date AK I -Followed by nephrology; renal failure attributed to hemodynamics initially - GFR improved on 10/02 with increasing creatinine trend since 10/03; possibilities that we re considered: acute interstitial nephritis from antibiotics (urine eosinophils were negativ e), postinfectious glomerulonephritis -He is off IV vancomycin -nafcillin does not require antibiotic dose adjustment for GFR; will continue cautious gillian atment with nafcillin, recognizing that it can cause AIN -Hemodialysis started on 10/05 Abnormal LFTs -Most likely from sepsis and trended down previously -Acute hepatitis profile negative. Transaminases are now normal -noted trend up of bilirubin on 10/04; IV nafcillin dose decreased to 2 g q6. Total bilir ubin slight trend down today. ?Hemolysis contributory Petechial/purpuric rash -worse at the hands and feet on 10/04; noted to have nasal/oral lesions as well -platelet count is now normal -of note, CSF analysis not suggestive of meningococcemia IV drug use -Last use had been the day prior to admission -Patient had been counseled about the adverse effects of IV drugs to his health; advised s topping IV drug use -Not a candidate for home IV antibiotic therapy -HIV rapid screen negative; acute retroviral syndrome ruled out: HIV RNA PCR undetectable Microcytic anemia -s/p blood transfusion on 10/06 -may have component of hemolysis Case discussed with Dr. Millie Swann to assume ID care on 10/08 Code Status: Full Code USMAN VILLATORO MD 10/08/2015 Adarsh Wylie MD - 10/08/2015 7:50 AM PDT . Progress Notes by Adarsh Crews MD at 10/08/15 4717 Author: Adarsh Crews MD Service: Nephrology Author Type: Physician Filed: 10/08/15 5048 Date of Service: 10/08/15 0750 Status: Signed Bisque Brusher: Adarsh Crews MD (Physician) [facility] Service: Nephrology Progress Note Hospital Day: LOS: 7 days Post-Op Day: * No surgery found * SUBJECTIVE Patient Summary: Reviewed medical records expensively. The patient is a 30 y.o. male with significant history of tobacco and drug abuse using daily heroin and methamphetamine, also on Suboxone. He initially presented to [facility] for progressive weaknes s, lethargy, and generalized pain for the past 7 days. He noticed that his ankles and right knee were swollen but not warm or erythematous. According to his girlfriend, he has been fee ling sick and febrile for the past week with poor oral intake. LP was performed to rule out meningitis. IV antibiotics started, ceftriaxone 2 gm and vancomycin [address] head and C-spine x-ray performed, patient decompensated and was intubated for respiratory failure and airway protection and admitted to the ICU. Significant labs on initial presentation : Na 114 (1435 hrs), BUN 81, Crea 2.48, Over next 12-24 hrs, his sodium abruptly improved to a peak of126 by 6 AM on 10/01, so c ounter measures were started to avoid over correction. Patient received DDAVP X2 X 2 MCG AT 4 AND 8 AM ON 10/01 and is on D5W AT 200 ML/HR. He has never been hospitalized because of low sodium. He has never been symptomatic because of low sodium. There are no herbal preparation intake; he does not have hx of liver cirrhos is. He does not have hx of CHF, hypothyroidism or adrenal insufficiency.There is no hx of ch ronic diarrhea and no N/V. Events Overnight: Reports lack of sleep through the night. C/o sharp pain or rigidity of muscles of the neck and upper torso area posteriorly, lasting short periods but quit dis turbing to him. Cannot explain more. Denies pain, nausea, vomiting. Reports dry mouth. Had a nd tolerated HD via the SLEDD protocol yesterday with some pressor support with iv Levophed. Note improving serum Na+. Still severely oliguric. Had pig tail catheter to right chest and draining serosanguinous fluid up to 1400ml yesterday. Reviewed labs and medical records. No te persisting, though improving anasarca. Had multiple unit blood transfusion yesterday. Scheduled Medications gentamicin Topical Daily heparin (porcine) 5000 unit/0.5mL 5,000 Units Subcutaneous 3 times per day midodrine 10 mg Oral TID mirtazapine 15 mg Oral Nightly nafcillin 2 g Intravenous Q6H pantoprazole 40 mg Intravenous BID polyethylene glycol 17 g Oral Daily sodium chloride 10 mL Intravenous 2 times per day sodium citrate anticoagulant 4 % 6 mL Intracatheter Once in dialysis Continuous Infusions dexmedetomidine in NS 0.7 mcg/kg/hr (10/08/15 0600) norepinephrine in D5W 64 mcg/mL Stopped (10/07/15 2220) PRN Medications acetaminophen OR acetaminophen, albumin human, HYDROmorphone, lip moisturizer, ondanset eliana OR ondansetron, promethazine, sodium chloride OBJECTIVE Vital Signs: BP 106/61 mmHg | Pulse 101 | Temp(Src) 98.7 F (37.1 C) (Axillary) | Resp 33 | Ht 1.702 m (5' 7") | Wt 70.4 kg (155 lb 3.3 oz) | BMI 24.30 kg/m2 | SpO2 96% Temp: [98 F (36.7 C)-98.9 F (37.2 C)] 98.7 F (37.1 C) (10/07 0400) BP: (81-126)/(47-63) 106/61 mmHg (10/07 699) Heart Rate: [76-108] 101 (10/07 699) Resp: [7-44] 33 (10/07 699) SpO2: [90 %-99 %] 96 % (10/07 699) Weight: [70.4 kg (155 lb 3.3 oz)-71.4 kg (157 lb 6.5 oz)] 70.4 kg (155 lb 3.3 oz) (10/07 0 600) Intake/Output Summary (Last 24 hours) at 10/08/15 0750 Last data filed at 10/08/15 0500 Gross per 24 hour Intake 5663.51 ml Output 7044 ml Net -1380.49 ml Physical Exam Constitutional: He is oriented to person, place, and time. He appears well-developed and we ll-nourished. HENT: Head: Normocephalic and atraumatic. Mouth/Throat: No oropharyngeal exudate. Blood crusts in the nostrils and mouth. Eyes: Conjunctivae are normal. No scleral icterus. Neck: Neck supple. No JVD present. Cardiovascular: Normal rate, regular rhythm, normal heart sounds and intact distal pulses. Exam reveals no gallop and no friction rub. No murmur heard. Pulmonary/Chest: Breath sounds normal. No respiratory distress. He has no wheezes. He has n o rales. Abdomina/Gl: Bowel sounds are normal. He exhibits no mass. There is no guarding. Firm, non tender. Musculoskeletal: He exhibits edema (edema involving all the extremities and torso, 1-2+ in the upper extremities and 1+ in the lower extremities). He exhibits no tenderness. Neurological: He is alert and oriented to person, place, and time. More awake this morning. Moves all extremities bilaterally. Skin: Skin is warm and dry. No rash noted. Scattered areas of ecchymosis and improving petechial rash. Psychiatric: He has a normal mood and affect. Nursing note and vitals reviewed. DATA CBC: Lab Results Component Value Date WBC 14.06* 10/08/2015 RBC 2.73* 10/08/2015 HGB 7.5* 10/08/2015 HCT 22.3* 10/08/2015 MCV 81.9 10/08/2015 MCH 27.7 10/08/2015 MCHC 33.7 10/08/2015 RDW 44.2 10/08/2015 PLT 191 10/08/2015 MPV 7.8 10/08/2015 DIFFTYPE MANUAL 10/08/2015 WBC: Lab Results Component Value Date WBC 14.06* 10/08/2015 NEUTABSMAN 10.97* 10/08/2015 NEUTROMAN 78 10/08/2015 LYMPHOABS 1.12 10/08/2015 LYMPHOMAN 8 10/08/2015 MONOABSMAN 0.28 10/08/2015 MONOMAN 2 10/08/2015 PLTEST DECREASED 10/03/2015 BANDSPCT 10 10/08/2015 METAABS 0.28* 10/08/2015 METAPCT 2 10/08/2015 CMP: Lab Results Component Value Date NA 131* 10/08/2015 K 4.2 10/08/2015 CL 93* 10/08/2015 CO2 24 10/08/2015 ANIONGAP 18 10/08/2015 GLUF 129* 10/08/2015 BUN 58* 10/08/2015 CREATININE 3.9* 10/08/2015 BCR 15 10/08/2015 CA 6.6* 10/08/2015 PROT 5.4* 10/08/2015 ALB 2.1* 10/08/2015 GLOB 3.6 10/01/2015 BILITOT 5.8* 10/08/2015 ALP 49 10/08/2015 AST 27 10/08/2015 ALT 28 10/08/2015 EGFR 19* 10/08/2015 Magnesium: Lab Results Component Value Date MG 2.7* 10/08/2015 Phosphorus: Lab Results Component Value Date PHOS 6.5* 10/08/2015 PT/INR: Lab Results Component Value Date PROTIME 10/07/2015 POOR QUALITY SPECIMEN FROM THE LINE DRAW, CHARGES CREDITED, PATIENT REDRAWN. INR 1.4 10/08/2015 PTT: Lab Results Component Value Date APTT 39* 10/01/2015 TSH: Lab Results Component Value Date TSH 0.75 10/03/2015 URIC ACID: 11.4 as of 10/05/2015 Medical Record Review: Reviewed extensively for this encounter. RADIOLOGIC: CXR as of 10/06/2015: Findings: A new RIGHT internal jugular central venous dialysis catheter is visualized wit h its tip at the junction of superior vena cava and RIGHT atrium. Persistent RIGHT brachia l PICC line is noted with its tip in the proximal RIGHT atrium. No visible RIGHT pneumotho rax. Irregular pulmonary nodules are again visualized throughout both lung barry, representing known pulmonary septic emboli. The hemidiaphragms are obscured, due to small bilateral ple ural effusions. The cardiac volume is normal. Generalized alveolar infiltrate visualized in the LEFT lung at 0537 hours today has partial ly cleared. IMPRESSION: 1.Satisfactory RIGHT internal jugular dialysis catheter placement. 2. Improving alveolar infiltrate in the LEFT lung. 3. Persistent multiple bilateral septic emboli. 4. Persistent bilateral small pleural effusions. LEM LIST Principal Problem: Sepsis (HCC) Active Problems: Hyposmolality and/or hyponatremia MARCEL (acute kidney injury) (HCC) Leucocytosis Thrombocytopenia (HCC) Toxic metabolic encephalopathy Acute respiratory failure with hypoxia (HCC) Heroin abuse Methamphetamine abuse Tobacco abuse Acute septic pulmonary embolism (HCC) Acute infective endocarditis Moderate protein-calorie malnutrition (HCC) @MALDXPLAN@ ASSESSMENT & PLAN HYPONATREMIA; the etiology is likely due to methamphetamine use and worsened by nausea and poor po intake lately. He over-corrected as he was fluid rescucitated. Received ddAVP to pre vent worsening over correction. Now in the ICU with worsening AMS/obtundation and edema with continued fluid/electrolyte replacement. Note slow and progressive improvement in serum Na+ , now 131. - Will continue RAILCAR SWITCHMAN with the SLEDD protocol to correct electrolyte and acid-base balance. S ee orders. HD RN notified. - Continue to monitor sodium q 4 - The plan is not to over correct more than 8 -10 meq/ 24 hrs. 1. MARCEL/ ARF: note continued worsening azotemia. Initial MARCEL probably hemodynamic in nature. However, now that Cr worsened,consideration of other etiologies and/or second hit injury including post infectious GN, AIN and or Vancomycin associated nephrotoxicity. Note low C3; C4 and ASO are normal; no urine eosinophils report available and UA reveals marked hematuri a without RBC casts. Possibility of post infectious (Staph) GN also entertained, though the actual management would still be treatment of the infection. The need for kidney biopsy is s till high as it may contrast the possible 3 DDx as noted above. Note significant hypoalbumin emia and third space volume loss. Patient on Vancomycin with elevated levels as of 6. - Will dialyze patient daily with the SLEDD protocol. See orders. - Renal diet with 2gm Na+, 2gm K+, 1gm Phos, 1.2g protein/Kg body weight per day; total ramiro ories 9965-2515 Kcal/day. Dietary consult may assist to identify caloric needs. Feeding now as TPN or by NGT as tolerated. - Daily weights and strict I/O's. Okay with cautious IVF likely with NS. - Adjust dose of medications including antibiotics to estimated GFR ~10ml/min or ESRD dose regimen. - Avoid NSAIDs (including FRASER 2 inhibitors) and iodine contrast agents. - Avoid use of Magnesium and aluminum containing antacids. - Avoid use of Magnesium or phosphorus containing laxatives. - Get uric acid, phos, mag, CMP and CBC today and as needed. 2. Lytes/bone: - Na+: Low and improving. Will maintain with appropriate dialysate Na+ bath to avoid overco rrection by 8-10 points within a given 24hr period.. - K+: Stable. Maintain with dialysate 3K+ bath. Monitor closely. - PO4: Elevated. Will correct with dialysis clearance as much as dialysis adequacy can asad phelps. Will monitor closely. - Bicarb: Acidosis. Will maintain with appropriated dialysate bicarbonate bath. 3. BP control: BP control is acceptable. Avoid further hypotension. Continue pressor jones pport with UF on HD. 4. Anemia mangement: Hb is < 8. - Clearly will need up to 3 units or more of PRBC transfusion. Monitor serum K+ with blood transfusion. - Will start patient on Epogen 14146 units given with dialysis TIW. 5. Thrombocytopenia likely due to sepsis and or AIN. Patient also with ?nose bleed or bleed ing in the mouth. Auto Dealer to f/u. 6. 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 Case and care plan discussed with the piercing artist and intensive care team. Need to continue RAILCAR SWITCHMAN with SLEDD protocol discussed. Agreeable. Will continue HD/SLEDD as ordered. Time spent on this encounter: 50 minutes of CCT of which about 50% was dedicated to discuss ion of case and care plan with the piercing artist and intensive care team and coordination of a cute dialysis treatment. Disposition: Possible to a care facility for continued antibiotic treatment. Code Status: Full Code ADARSH CREWS MD 10/08/2015 Maegan Cobb MD - 10/08/2015 5:03 AM PDT Progress Notes by Maegan Rod MD at 10/08/15 5589 Author: Maegan Rod MD Service: Auto Dealer Author Type: Physician Filed: 10/08/15 0575 Date of Service: 10/08/15 5962 Status: Addendum Bisque Brusher: Maegan Rod MD (Physician) Related Notes: Original Note by Maegan Rod MD (Physician) filed at 10/08/15 4631 [facility] Service: Auto Dealer Progress Note Yang Ridley 30 y.o. Hospital Day: LOS: 7 days Post-Op Day: * No surgery found * Consulting Physicians Treatment Team: Consulting Physician: Chris Swann DO Consulting Physician: Renetta Buck MD Consulting Physician: Gonzalez Bhardwaj MD Surgeon: Blanca Arias MD Consulting Physician: Blanca Arias MD Admitting Provider: Carly Thomas DO SUBJECTIVE Patient Summary: The patient is a 30 y.o. male with significant history of tobacco an d drug abuse using daily heroin and methamphetamine, also on Suboxone. He initially presen latasha to [facility] for progressive weakness, lethargy, and generalized pain (most ly his chest, neck, back, knees, ankles and toes) for the past 7 days. She noticed that his ankles and right knee were swollen but not warm or erythematous. According to his girlfriend , he has been feeling sick and febrile for the past week with poor PO intake. Yesterday, she noticed that he seemed like he was hallucinating and talking to himself. He was very weak t natalie that she had to assist him to get into the car to go the the ED. Exam at OSH was significant for point tenderness at the area of the cervical spine and posi tive Kernig's sign. LP was performed to rule out meningitis. IV antibiotics started, ceftria xone 2 gm and vancomycin [address] head and C-spine x-ray performed, MRI attempted but patient decompensated and was intubated for respiratory failure and airway protection. Significant labs: Na 114 (1435 hrs), BUN 81, Crea 2.48, WBC 19.9, Hb 11.6, Plt 51, Tbili 3. 6, AST 188, ALT 155, LA 1.7. CSF: clear, colorless, WBC 0, RBC 3. Transferred to [facility] for further care. Timeline: Evaluated by Nephrology, acute renal failure attributed to hemodynamics. Evaluated by Dr. Bhardwaj from orthopedics: Does not think patient has ankle septic joint and does not recom mend surgical intervention. Echocardiogram showed moderate size mobile vegetation attached to the septal tricuspid valv e leaflet, moderate tricuspid regurgitation, moderate pulmonary hypertension with mildly enl arged right ventricle. Evaluated by CTS, surgery not recommended On 7/15, extubated. MRI spine w/o evidence abscess On 10/02, he was transferred out of the ICU. 10/04-Transferred to ICU for worsening mental status, drop of Na from 122 to 117 and worseni ng renal function 10/05-HD line placed, started on dialysis. Right pigtail chest tube with drainage of 1400 ml serosanguineous exudate 10/06-Dialysis session. Improved encephalopathy. Anxiety requiring high dose precedex. Overnight events: Insomnia, anxiety. OBJECTIVE VITAL SIGNS Temp: [98 F (36.7 C)-98.9 F (37.2 C)] 98.7 F (37.1 C) Heart Rate: [76-108] 88 Resp: [7-44] 37 BP: (81-126)/(45-63) 91/51 mmHg Intake/Output Summary (Last 24 hours) at 10/08/15 0503 Last data filed at 10/08/15 0100 Gross per 24 hour Intake 5015.11 ml Output 7043 ml Net -2027.89 ml EXAM GEN: awake, oriented to person, place and time NEURO: PERRLA, no facial asymmetry, moves all extremities well HEENT: sclerae clear, nonicteric, oral mmm, pink, no exudates NECK: supple, trachea midline HEART: RRR, S1/S2, 2/6 systolic murmur RLSB LUNGS: tachypneic, , no wheezing, rales or rhonchi, symmetric chest expansion, ABD: soft, nondistended, nontender to palpation, no masses, no hepatosplenomegaly EXTR: edema all extremities, clubbing or cyanosis SKIN: diffuse purpuric palpable rash bilateral anterior lower extremities, also hand and fe et. LINES/TUBES: Right UE PICC, right IJ CVC 10/05 DATA Recent Labs Lab 10/07/15 1446 10/07/15 0534 10/06/15 0403 10/05/15 0419 10/04/15 0440 WBC -- 12.88* 20.97* 31.87* 14.41* RBC -- 1.93* 2.98* 3.99* 3.39* HGB 7.6* 5.3* 7.8* 10.6* 9.0* HCT 22.2* 15.1* 23.8* 32.3* 27.3* MCV -- 78.4* 79.9* 80.9 80.5 MCH -- 27.4 26.2* 26.7* 26.6* MCHC -- 34.9 32.7 33.0 33.1 RDW -- 41.6 41.1 41.6 40.3 PLT -- 165 118* 119* 69* MPV -- 8.1 8.9 9.7 9.9 BANDSABS -- 0.52* 0.84* -- 1.01* MORPH -- RBC AND PLT MORPHOLOGY APPEAR NORMAL 1+ RBC AND PLT MORPHOLOGY APPEAR NORMAL RBC AND PLT MORPHOLOGY APPEAR NORMAL Recent Labs Lab 10/07/15 1825 10/07/15 1446 10/07/15 1142 10/07/15 0534 10/06/15 1846 10/06/15 0403 10/05/15 0419 10/04/15 0440 10/01/15 1935 NA 131* 129* 130* < > 126* < > 128* < > 122* < > 122* < > 123* < > 120* K -- -- -- -- 4.8 -- 4.7 -- 5.5* -- 4.6 -- 3.9 < > 4.5 CL -- -- -- -- 89* -- 91* -- 89* -- 89* -- 89* < > 87* CO2 -- -- -- -- 22* -- 23 -- 18* -- 20* -- 23 < > 22* ANIONGAP -- -- -- -- 18 -- 18 -- 21* -- 17 -- 15 < > 15 GLUF -- -- -- -- 113* -- 92 -- 102* -- 140* -- 115* < > 112* BUN -- -- -- -- 77* -- 68* -- 115* -- 97* -- 78* < > 75* CREATININE -- -- -- -- 3.8* -- 2.9* -- 3.9* -- 2.9* -- 1.6* < > 1.9* BCR -- -- -- -- 20 -- 24 -- 29 -- 33 -- 49 < > 39 CA -- -- -- -- 6.4* -- 6.4* -- 6.4* -- 6.3* -- 6.7* < > 5.9* ALB -- -- -- -- 1.9* -- -- -- 1.6* -- 1.4* -- 1.4* < > 1.5* GLOB -- -- -- -- -- -- -- -- -- -- -- -- -- -- 3.6 AG -- -- -- -- -- -- -- -- -- -- -- -- -- -- 0.4* PROT -- -- -- -- 5.0* -- -- -- 4.5* -- 5.1* -- 5.2* < > 5.1* BILITOT -- -- -- -- 6.0* -- -- -- 9.0* -- 7.5* -- 2.0* < > 3.4* ALT -- -- -- -- 29 -- -- -- 47 -- 56 -- 63 < > 129* AST -- -- -- -- 32 -- -- -- 58* -- 63* -- 61* < > 192* EGFR -- -- -- -- 20* -- 27* -- 19* -- 27* -- 54* < > 44* PHOS -- -- -- -- 7.6* -- -- -- 8.1* -- 5.1* -- 3.6 < > -- MG -- -- -- -- -- -- -- -- 3.1* -- 3.1* -- 3.0* < > -- < > = values in this interval not displayed. Recent Labs Lab 10/08/15 0416 10/07/15 0534 10/07/15 0357 INR 1.4 1.5 POOR QUALITY SPECIMEN FROM THE LINE DRAW, CHARGES CREDITED, PATIENT REDRAWN. IMAGING Echo Impression 1. LV size, wall thickness and systolic function are normal, with an EF of 60%. 2. The diastolic filling pattern indicates impaired relaxation consistent with mild dysfunc tion (Grade I). 3. The right ventricle is mildly enlarged, but right ventricular systolic function is dorothy l. 4. Moderate tricuspid regurgitation present. 5. There is moderate pulmonary hypertension. The right ventricular systolic pressure (pu lmonary artery systolic pressure), as measured by Doppler, is 50.27mmHg. 6. Moderate sized, mobile vegetation attached to the septal tricuspid valve leaflet. Microbiology data: 09/27 blood cultures obtained from [facility] are growing MSSA from 3 out of 3 bottles CSF culture result has not yet been faxed but per personnel from [place] [facility]ology, no growth 09/30 blood cultures with no growth to date 09/30 MRSA nasal PCR negative 09/30 tracheal aspirate culture grew 3+ MSSA 10/03 urine culture with no growth PROBLEM LIST Principal Problem: Sepsis (HCC) Active Problems: Hyposmolality and/or hyponatremia MARCEL (acute kidney injury) (HCC) Leucocytosis Thrombocytopenia (HCC) Toxic metabolic encephalopathy Acute respiratory failure with hypoxia (HCC) Heroin abuse Methamphetamine abuse Tobacco abuse Acute septic pulmonary embolism (HCC) Acute infective endocarditis Moderate protein-calorie malnutrition ([facility]) ASSESSMENT & PLAN NEURO: Septic encephalopathy-Resolving CSF w/o growth from [facility] Start remeron for anxiety/insomnia Switch from IV to PO opiods for pain control CV: Hemodynamically stable on midodrine Currently euvolemia PULM: Hypoxemic respiratory failure-stable on minimal O2 via NC Pulmonary septic embolic from MSSA tricuspic valve IE Right pleural effusion s/p pigtail chest tube 10/05. Exudative by Lights criteria. PH, gl ucose not consistent with complicated infected effusion. Left pleural effusion minimal on be dside ultrasound (not amenable for thoracentesis) CXR and remove pigtail chest tube GI/NUTRITION: Severe malnutrition secondary to infectious process Renal diet Mild Transaminitis with elevated bilirubin- Trending down, likely sepsis related . Hepat itis serologies and HIV negative. Continue to monitor. RENAL/LYTES: MARCEL. Anuric requiring HD. ATN vs C3 staph induced glomeurlonephritis. UA with hematuria. C3 low. C4 wnl. Low C3 likely from MSSA infectious process, but juan carlos l biopsy unlikely to alter management Unlikely AIN. Urine eosinophils negative Hepatitis serologies and HIV negative. Consider HCV RNA Hyponatremia-resolving. Cortisol and TSH wnl HD placed, started on dialysis 10/05 ID: MSSA tricuspid valve endocarditis. Bedside ultrasound shows tricuspic posterior leaflet involvement on RV inflow view and septal leaflet involvement seen on 4C view. Followed by ID. On nafcillin q6h adjusted for cholestatic picture (likely sepsis) Right pleural effusion s/p pigtail chest tube 10/05. Exudative by Lights criteria. PH, g lucose not consistent with complicated infected effusion. Left pleural effusion minimal on b edside ultrasound (not amenable for thoracentesis) HEME: Platelets stable Anemia-Multifactorial, cant exclude hemolysis. Required blood transfusion 10/06 (2 units PRBC). Continue to monitor ENDO: Monitor BS MUSC/SKIN: Vasculitis from IE/sepsis PROPHYLAXIS: Stress ulcer prophylaxis: on PPI DVT prophylaxis: Heparin SC VAP bundle: N/A Disposition: ICU Code Status: Full Code *Please bill 45 minutes of critical care time spent evaluating the patient, reviewing the d micahel and formulating a plan exclusive of all other procedures. Maegan Rod MD 10/08/2015 5:03 AM onversion Transact ion, Provider Unknown - 10/07/2015 10:28 AM PDTFormatting of this note might be different fr om the original. Therapy Progress Note by Velvet Vincent PT at 10/07/15 1028 Author: Velvet Vincent PT Service: (none) Author Type: Physical Therapist Filed: 10/07/15 1112 Date of Service: 10/07/15 1028 Status: Signed Bisque Brusher: Velvet Vincent PT (Physical Therapist) 10/07/15 1028 PT Last Visit PT Received On 10/07/15 Requires PT Follow Up On hold Other Comments Comments Pt remains intubated and is receiving HD. Still awaiting new orders since ICU moses sfer when pt becomes appropriate. Plan to d/c at this time and await new orders. onver patti Transaction, Provider Unknown - 10/07/2015 10:20 AM PDT Case Management by SAMEERA Huggins at 10/07/15 1020 Author: SAMEERA Huggins Service: (none) Author Type: Fuse Assembler Filed: 10/07/15 1021 Date of Service: 10/07/15 1020 Status: Signed Bisque Brusher: SAMEERA Huggins (Fuse Assembler) Attended morning rounds. Per previous CM note from [employer], there were concerns expressed a bout pt's SO regarding resourcing for hotel, food, etc. Per bedside RN today, she has not se en pt's SO or heard that she has been around. Will continue to follow. Possibly SO has taken a break for a while. She does have a 7yo at home. Adarsh Mackey MD - 10/07/2015 8:00 AM PDT Progress Notes by Adarsh Crews MD at 10/07/15 08 Author: Adarsh Crews MD Service: Nephrology Author Type: Physician Filed: 10/07/15816 Date of Service: 10/07/15799 Status: Signed Bisque Brusher: Adarsh Crews MD (Physician) [facility] Service: Nephrology Progress Note Hospital Day: LOS: 6 days Post-Op Day: * No surgery found * SUBJECTIVE Patient Summary: Reviewed medical records expensively. The patient is a 30 y.o. male with significant history of tobacco and drug abuse using daily heroin and methamphetamine, also on Suboxone. He initially presented to [facility] for progressive weaknes s, lethargy, and generalized pain for the past 7 days. He noticed that his ankles and right knee were swollen but not warm or erythematous. According to his girlfriend, he has been fee ling sick and febrile for the past week with poor oral intake. LP was performed to rule out meningitis. IV antibiotics started, ceftriaxone 2 gm and vancomycin [address] head and C-spine x-ray performed, patient decompensated and was intubated for respiratory failure and airway protection and admitted to the ICU. Significant labs on initial presentation : Na 114 (1435 hrs), BUN 81, Crea 2.48, Over next 12-24 hrs, his sodium abruptly improved to a peak of126 by 6 AM on 10/01, so c ounter measures were started to avoid over correction. Patient received DDAVP X2 X 2 MCG AT 4 AND 8 AM ON 10/01 and is on D5W AT 200 ML/HR. He has never been hospitalized because of low sodium. He has never been symptomatic because of low sodium. There are no herbal preparation intake; he does not have hx of liver cirrhos is. He does not have hx of CHF, hypothyroidism or adrenal insufficiency.There is no hx of ch ronic diarrhea and no N/V. Events Overnight: More awake today. Answering questions again rather slowly. Denies p ain, nausea, vomiting. Reports dry mouth. Had and tolerated HD via the SLEDD protocol yester day with some pressor support with iv Levophed. Note improving serum Na+. Still severely lenoel guric. Reviewed labs and medical records. Note persisting anasarca. Scheduled Medications gentamicin Topical Daily heparin (porcine) 5000 unit/0.5mL 5,000 Units Subcutaneous 3 times per day nafcillin 2 g Intravenous Q6H pantoprazole 40 mg Intravenous BID polyethylene glycol 17 g Oral Daily sennosides 10 mL Oral Nightly sodium chloride 10 mL Intravenous 2 times per day sodium citrate anticoagulant 4 % 6 mL Intracatheter Once in dialysis Continuous Infusions dexmedetomidine in NS 1 mcg/kg/hr (10/07/15 0552) norepinephrine in D5W 64 mcg/mL 6 mcg/min (10/07/15 0750) PRN Medications acetaminophen OR acetaminophen, albumin human, fentaNYL, lip moisturizer, morphine, ond ansetron OR ondansetron, promethazine, sodium chloride OBJECTIVE Vital Signs: BP 90/45 mmHg | Pulse 85 | Temp(Src) 98.4 F (36.9 C) (Oral) | Resp 30 | Ht 1.702 m (5' 7") | Wt 71.7 kg (158 lb 1.1 oz) | BMI 24.75 kg/m2 | SpO2 96% Temp: [97.3 F (36.3 C)-98.4 F (36.9 C)] 98.4 F (36.9 C) (10/06 629) BP: (81-129)/(45-72) 90/45 mmHg (10/06 699) Heart Rate: [79-114] 85 (10/06 699) Resp: [17-38] 30 (10/06 699) SpO2: [90 %-100 %] 96 % (10/06 699) Weight: [71.7 kg (158 lb 1.1 oz)-76.9 kg (169 lb 8.5 oz)] 71.7 kg (158 lb 1.1 oz) (10/06 0 541) Intake/Output Summary (Last 24 hours) at 10/07/15 0800 Last data filed at 10/07/15 0541 Gross per 24 hour Intake 5491.32 ml Output 6223 ml Net -731.68 ml Physical Exam Constitutional: He is oriented to person, place, and time. He appears well-developed and we ll-nourished. HENT: Head: Normocephalic and atraumatic. Mouth/Throat: No oropharyngeal exudate. Blood crusts in the nostrils and mouth. Eyes: Conjunctivae are normal. No scleral icterus. Neck: Neck supple. No JVD present. No thyromegaly present. Cardiovascular: Normal rate, regular rhythm, normal heart sounds and intact distal pulses. Exam reveals no gallop and no friction rub. No murmur heard. Pulmonary/Chest: Breath sounds normal. He is in respiratory distress (tachypneic). He has n o wheezes. He has no rales. Abdomina/Gl: Bowel sounds are normal. He exhibits no mass. There is no guarding. Firm, non tender. Musculoskeletal: He exhibits edema (worsening peripheral edema involving all the extremitie s and torso, 2+ in the upper extremities and 1-2+ in the lower extremities). He exhibits no tenderness. Lymphadenopathy: He has no cervical adenopathy. Neurological: He is alert and oriented to person, place, and time. More awake this morning. Moves all extremities bilaterally. Skin: Skin is warm and dry. No rash noted. Psychiatric: He has a normal mood and affect. Nursing note and vitals reviewed. DATA CBC: Lab Results Component Value Date WBC 12.88* 10/07/2015 RBC 1.93* 10/07/2015 HGB 5.3* 10/07/2015 HCT 15.1* 10/07/2015 MCV 78.4* 10/07/2015 MCH 27.4 10/07/2015 MCHC 34.9 10/07/2015 RDW 41.6 10/07/2015 PLT 165 10/07/2015 MPV 8.1 10/07/2015 DIFFTYPE MANUAL 10/07/2015 WBC: Lab Results Component Value Date WBC 12.88* 10/07/2015 NEUTABSMAN 10.43* 10/07/2015 NEUTROMAN 81 10/07/2015 LYMPHOABS 1.29 10/07/2015 LYMPHOMAN 10 10/07/2015 MONOABSMAN 0.64 10/07/2015 MONOMAN 5 10/07/2015 PLTEST DECREASED 10/03/2015 BANDSPCT 4 10/07/2015 CMP: Lab Results Component Value Date NA 127* 10/07/2015 K 4.8 10/07/2015 CL 89* 10/07/2015 CO2 22* 10/07/2015 ANIONGAP 18 10/07/2015 GLUF 113* 10/07/2015 BUN 77* 10/07/2015 CREATININE 3.8* 10/07/2015 BCR 20 10/07/2015 CA 6.4* 10/07/2015 PROT 5.0* 10/07/2015 ALB 1.9* 10/07/2015 GLOB 3.6 10/01/2015 BILITOT 6.0* 10/07/2015 ALP 49 10/07/2015 AST 32 10/07/2015 ALT 29 10/07/2015 EGFR 20* 10/07/2015 Magnesium: Lab Results Component Value Date MG 3.1* 10/06/2015 Phosphorus: Lab Results Component Value Date PHOS 7.6* 10/07/2015 PT/INR: Lab Results Component Value Date PROTIME 10/07/2015 POOR QUALITY SPECIMEN FROM THE LINE DRAW, CHARGES CREDITED, PATIENT REDRAWN. INR 10/07/2015 POOR QUALITY SPECIMEN FROM THE LINE DRAW, CHARGES CREDITED, PATIENT REDRAWN. PTT: Lab Results Component Value Date APTT 39* 10/01/2015 TSH: Lab Results Component Value Date TSH 0.75 10/03/2015 URIC ACID: 11.4 as of 10/05/2015 Medical Record Review: Reviewed extensively for this encounter. RADIOLOGIC: CXR as of 10/06/2015: Findings: A new RIGHT internal jugular central venous dialysis catheter is visualized wit h its tip at the junction of superior vena cava and RIGHT atrium. Persistent RIGHT brachia l PICC line is noted with its tip in the proximal RIGHT atrium. No visible RIGHT pneumotho rax. Irregular pulmonary nodules are again visualized throughout both lung barry, representing known pulmonary septic emboli. The hemidiaphragms are obscured, due to small bilateral ple ural effusions. The cardiac volume is normal. Generalized alveolar infiltrate visualized in the LEFT lung at 0537 hours today has partial ly cleared. IMPRESSION: 1.Satisfactory RIGHT internal jugular dialysis catheter placement. 2. Improving alveolar infiltrate in the LEFT lung. 3. Persistent multiple bilateral septic emboli. 4. Persistent bilateral small pleural effusions. LEM LIST Principal Problem: Sepsis (HCC) Active Problems: Hyposmolality and/or hyponatremia MARCEL (acute kidney injury) (HCC) Leucocytosis Thrombocytopenia (HCC) Toxic metabolic encephalopathy Acute respiratory failure with hypoxia (HCC) Heroin abuse Methamphetamine abuse Tobacco abuse Acute septic pulmonary embolism (HCC) Acute infective endocarditis Moderate protein-calorie malnutrition (HCC) @MALDXPLAN@ ASSESSMENT & PLAN HYPONATREMIA; the etiology is likely due to methamphetamine use and worsened by nausea and poor po intake lately. He over-corrected as he was fluid rescucitated. Received ddAVP to pre vent worsening over correction. Now in the ICU with worsening AMS/obtundation and edema with continued fluid/electrolyte replacement. Note slow and progressive improvement in serum Na+ , now 127. - Will continue RAILCAR SWITCHMAN with the SLEDD protocol to correct electrolyte and acid-base balance. S ee orders. HD RN notified. - Continue to monitor sodium q 4 - The plan is not to over correct more than 8 -10 meq/ 24 hrs. 1. MARCEL/ ARF: note continued worsening azotemia. Initial MARCEL probably hemodynamic in nature. However, now that Cr worsened,consideration of other etiologies and/or second hit injury including post infectious GN, AIN and or Vancomycin associated nephrotoxicity. Note low C3; C4 and ASO are normal; no urine eosinophils report available and UA reveals marked hematuri a without RBC casts. Possibility of post infectious (Staph) GN also entertained, though the actual management would still be treatment of the infection. The need for kidney biopsy is s till high as it may contrast the possible 3 DDx as noted above. Note significant hypoalbumin emia and third space volume loss. Patient on Vancomycin with elevated levels as of 6. - Will dialyze patient daily with the SLEDD protocol. See orders. - Renal diet with 2gm Na+, 2gm K+, 1gm Phos, 1.2g protein/Kg body weight per day; total ramiro ories 9988-1036 Kcal/day. Dietary consult may assist to identify caloric needs. Feeding now as TPN or by NGT as tolerated. - Daily weights and strict I/O's. Okay with cautious IVF likely with NS. - Adjust dose of medications including antibiotics to estimated GFR ~10ml/min or ESRD dose regimen. - Avoid NSAIDs (including FRASER 2 inhibitors) and iodine contrast agents. - Avoid use of Magnesium and aluminum containing antacids. - Avoid use of Magnesium or phosphorus containing laxatives. - Get uric acid, phos, mag, CMP and CBC today and as needed. 2. Lytes/bone: - Na+: Low and improving. Will maintain with appropriate dialysate Na+ bath to avoid overco rrection by 8-10 points within a given 24hr period.. - K+: Stable. Maintain with dialysate 3K+ bath. Monitor closely. - PO4: Elevated. Will correct with dialysis clearance as much as dialysis adequacy can asad mane Will monitor closely. - Bicarb: Acidosis. Will correct with appropriated dialysate bicarbonate bath. 3. BP control: BP control is acceptable. Avoid further hypotension. Continue pressor jones pport with UF on HD. 4. Anemia mangement: Hb is < 8. - Clearly will need up to 3 units or more of PRBC transfusion. Monitor serum K+ with blood transfusion. - Will start patient on Epogen 30800 units given with dialysis TIW. 5. Thrombocytopenia likely due to sepsis and or AIN. Patient also with ?nose bleed or bleed ing in the mouth. Auto Dealer to f/u. 6. 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 Case and care plan discussed with the piercing artist and intensive care team. Need to continue RAILCAR SWITCHMAN with SLEDD protocol discussed. Agreeable. Will continue HD/SLEDD as ordered. Time spent on this encounter: 50 minutes of CCT of which about 50% was dedicated to discuss ion of case and care plan with the piercing artist and intensive care team and coordination of a cute dialysis treatment. Disposition: Possible to a care facility for continued antibiotic treatment. Code Status: Full Code ADARSH CREWS MD 10/07/2015 [email or web address], Usman Ragsdale MD - 10/07/2015 7:08 AM PDT . Progress Notes by Usman Villatoro MD at 10/07/15707 Author: Usman Villatoro MD Service: Infectious Disease Author Type: Physician Filed: 10/07/15 0819 Date of Service: 10/07/15707 Status: Signed Bisque Brusher: Usman Villatoro MD (Physician) [facility] Service: Infectious Disease Progress Note Hospital Day: LOS: 6 days Post-Op Day: * No surgery found * SUBJECTIVE Patient Summary: CC: Fever, chest pain and altered mental status From Auto Dealer's admission note on 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 male with significant history of tobacco and drug abuse using daily heroin and methamphetamine, also on Suboxone. He initially presented to [facility] for progressive weakness, lethargy, and ge neralized pain (mostly his chest, neck, back, knees, ankles and toes) for the past 7 days. H e noticed that his ankles and right knee were swollen but not warm or erythematous. Savbetzy g to his girlfriend, he has been feeling sick and febrile for the past week with poor PO int elisha. Yesterday, she noticed that he seemed like he was hallucinating and talking to himself. He was very weak today that she had to assist him to get into the car to go the the ED. Exam at OSH was significant for point tenderness at the area of the cervical spine and posi tive Kernig's sign. LP was performed to rule out meningitis. IV antibiotics started, ceftria xone 2 gm and vancomycin [address] head and C-spine x-ray performed, MRI attempted but patient decompensated and was intubated for respiratory failure and airway protection. Significant labs: Na 114 (1435 hrs), BUN 81, Crea 2.48, WBC 19.9, Hb 11.6, Plt 51, Tbili 3. 6, AST 188, ALT 155, LA 1.7. CSF: clear, colorless, WBC 0, RBC 3. Protein 31. Glucose 50. Culture with no growth to d ate Blood cultures are reported to be growing GPCs at [facility] Transferred to [facility] for further care. MRI of brain and spine carried out with limited findi ngs due to non-contrast study. Evaluated by Nephrology, acute renal failure attributed to hemodynamics. Evaluated by Dr. Bhardwaj from orthopedics: Does not think patient has ankle septic joint and does not recomme nd surgical intervention. Echocardiogram showed moderate size mobile vegetation attached to the septal tricuspid valv e leaflet, moderate tricuspid regurgitation, moderate pulmonary hypertension with mildly enl arged right ventricle. Evaluated by CTS, surgery not recommended On 10/01, extubated On 10/02, he was transferred out of the ICU. On 10/04, patient had worsening mental status and also became tachypneic. He became more hy ponatremic with worsening renal function. Bilateral moderate sized pleural effusions were n oted on chest CT scan. Bedside ultrasound with bilateral pleural effusion, R>L. Left minimal and without echogenic ity suggestive of infectious pleural effusion. Left effusion is moderate with fibrin strands concerning for complicated/infectious pleural effusion. Right pig tail chest tube placed wi th purulent drainage. Head CT scan negative Events Overnight: Started on hemodialysis yesterday. Remains confused. Afebrile; s oft BPs but not tachycardic. WBC trending down. Indicates chest pain at site of chest tube and pain at his hands and feet. Scheduled Medications gentamicin Topical Daily heparin (porcine) 5000 unit/0.5mL 5,000 Units Subcutaneous 3 times per day nafcillin 2 g Intravenous Q6H pantoprazole 40 mg Intravenous BID polyethylene glycol 17 g Oral Daily sennosides 10 mL Oral Nightly sodium chloride 10 mL Intravenous 2 times per day sodium citrate anticoagulant 4 % 6 mL Intracatheter Once in dialysis Continuous Infusions dexmedetomidine in NS 1 mcg/kg/hr (10/07/15 0552) norepinephrine in D5W 64 mcg/mL 3 mcg/min (10/07/15 0604) PRN Medications acetaminophen OR acetaminophen, albumin human, fentaNYL, lip moisturizer, morphine, ond ansetron OR ondansetron, promethazine, sodium chloride OBJECTIVE Vital Signs: BP 90/45 mmHg | Pulse 85 | Temp(Src) 97.9 F (36.6 C) (Oral) | Resp 30 | Ht 1.702 m (5' 7") | Wt 71.7 kg (158 lb 1.1 oz) | BMI 24.75 kg/m2 | SpO2 96% Temp: [97.3 F (36.3 C)-98.6 F (37 C)] 97.9 F (36.6 C) (10/06 0000) BP: (81-129)/(45-72) 90/45 mmHg (10/06 07) Heart Rate: [79-114] 85 (10/06 07) Resp: [17-38] 30 (10/06 07) SpO2: [90 %-100 %] 96 % (10/06 07) Weight: [71.7 kg (158 lb 1.1 oz)-76.9 kg (169 lb 8.5 oz)] 71.7 kg (158 lb 1.1 oz) (10/06 0 541) Physical Exam Vital signs have been reviewed Gen.: Drowsy. Wakes up with verbal and tactile stimuli. Oriented to person only. Undergo ing dialysis HEENT: Normocephalic. Icteric sclerae. Conjunctival pallor is noted. Petechial lesions at n paola and oral mucosae. Dry oral mucosa. Neck is supple with no cervical lymphadenopathy. So me petechiae are noted at the left neck where he had a central line that had been removed R IJ hemodialysis catheter unremarkable Lungs: Decreased at the bases. Right chest tube in place. No rales, wheezes or rhonchi not ed Cardiovascular: Normal rate, regular rhythm. Systolic murmur is noted Abdomen: No distention. Soft. No tenderness or palpable masses Skin: Petechial lesions at antecubital area and forearms worse since 10/04 with petechiae at both hands with dark/black discoloration at the area of the MCPs and PIPs of both hands but no clear-cut joint effusion. Some of the lesions are looking purpuric. No palpable nodes a t palms/feet. He is able to move his hands without difficulty but areas of skin lesions are tender Petechial lesions at his legs appear better but he has worsening petechiae/purpura at both feet. PICC site at right upper extremity is unremarkable Musculoskeletal: No inflamed looking joints Neurologic: Appears to be able to move all extremities. DATA CBC: Lab Results Component Value Date WBC 12.88* 10/07/2015 RBC 1.93* 10/07/2015 HGB 5.3* 10/07/2015 HCT 15.1* 10/07/2015 MCV 78.4* 10/07/2015 MCH 27.4 10/07/2015 MCHC 34.9 10/07/2015 RDW 41.6 10/07/2015 PLT 165 10/07/2015 MPV 8.1 10/07/2015 DIFFTYPE PENDING 10/07/2015 WBC: Lab Results Component Value Date WBC 12.88* 10/07/2015 NEUTABSMAN 19.08* 10/06/2015 NEUTROMAN 91 10/06/2015 LYMPHOABS 0.21* 10/06/2015 LYMPHOMAN 1 10/06/2015 MONOABSMAN 0.84* 10/06/2015 MONOMAN 4 10/06/2015 PLTEST DECREASED 10/03/2015 BANDSPCT 4 10/06/2015 CMP: Lab Results Component Value Date NA 126* 10/07/2015 K 4.8 10/07/2015 CL 89* 10/07/2015 CO2 22* 10/07/2015 ANIONGAP 18 10/07/2015 GLUF 113* 10/07/2015 BUN 77* 10/07/2015 CREATININE 3.8* 10/07/2015 BCR 20 10/07/2015 CA 6.4* 10/07/2015 PROT 5.0* 10/07/2015 ALB 1.9* 10/07/2015 GLOB 3.6 10/01/2015 BILITOT 6.0* 10/07/2015 ALP 49 10/07/2015 AST 32 10/07/2015 ALT 29 10/07/2015 EGFR 20* 10/07/2015 PT/INR: Lab Results Component Value Date PROTIME 10/07/2015 POOR QUALITY SPECIMEN FROM THE LINE DRAW, CHARGES CREDITED, PATIENT REDRAWN. INR 10/07/2015 POOR QUALITY SPECIMEN FROM THE LINE DRAW, CHARGES CREDITED, PATIENT REDRAWN. PTT: Lab Results Component Value Date APTT 39* 10/01/2015 [APTT} Lab Results Component Value Date INR 10/07/2015 POOR QUALITY SPECIMEN FROM THE LINE DRAW, CHARGES CREDITED, PATIENT REDRAWN. INR 1.6 10/06/2015 INR 1.5 10/05/2015 PROTIME 10/07/2015 POOR QUALITY SPECIMEN FROM THE LINE DRAW, CHARGES CREDITED, PATIENT REDRAWN. ABG: Lab Results Component Value Date POCPH 7.443 10/05/2015 POCPCO 25* 10/05/2015 POCPO2 68* 10/05/2015 POCHCO 17* 10/05/2015 POCTCO2 18* 10/05/2015 POCBD 7* 10/05/2015 POCSO2 94* 10/05/2015 POCCMT Tidal Volume = 450 10/01/2015 TSH: Lab Results Component Value Date TSH 0.75 10/03/2015 Component Latest Ref Rng 10/04/2015 3:32 PM URINE EOSINOPHILS <1 % NO EOSINOPHILS SEEN Component Latest Ref Rng 10/04/2015 3:32 PM ASO 0 - 250 IU/mL <50 Component Latest Ref Rng 10/04/2015 3:32 PM COMPLEMENT C3 90 - 180 mg/dL 65 (L) COMPLEMENT C4 10 - 40 mg/dL 10.8 Microbiology data: 09/27 blood cultures obtained from [facility] are growing MSSA from 3 out of 3 bottles CSF culture reportedly with no growth 09/30 blood cultures with no growth to date 09/30 MRSA nasal PCR negative 09/30 tracheal aspirate culture grew 3+ MSSA 10/03 urine culture with no growth 10/05 pleural fluid Gram stain 2+ WBCs, no organisms; culutre in process TP 3.4, LDH 788, pH 7.57. 614250 RBCs/mL, 3154 WBCs with 77% neutrophils Radiology data: Impression 1. No acute intracranial hemorrhage, mass or infarct. head without contrast [[id number]] Impression 1. Bilateral cavitary lesions of the lungs consistent with septic emboli. 2. Bilateral moderate sized pleural effusions with adjacent basilar atelectasis. 3. Diffuse ascites. 4. Dilated and thickened small bowel loops of the central abdomen, may represent obstructi on. Nonspecific enteritis is also possible including inflammatory, infectious or ischemic et iologies. chest abdomen pelvis without contrast [[id number]] Impression 1. Satisfactory RIGHT internal jugular dialysis catheter placement. 2. Improving alveolar infiltrate in the LEFT lung. 3. Persistent multiple bilateral septic emboli. 4. Persistent bilateral small pleural effusions. chest 1 view [[id number]] Impression No acute or focal intracranial abnormality . No evidence of infarct or hemorrhage. RADIA Electronically signed by Maegan Maddox MD on Oct 02 2015 4:49AM Referring Provider Line: [phone] ID: [id number] MRI brain without contrast [[id number]] Impression No cord impingement or cord signal abnormality identified. No findings suggesting diskitis or osteomyelitis. Prominence to the epidural space in the upper cervical spine , potentially a prominent epidural venous plexus. Evaluation for abscess is limited without IV contrast. Followup suggested. RADIA Electronically signed by Maegan Maddox MD on Oct 02 2015 5:45AM Referring Provider Line: [phone] ID: [id number] MRI cervical spine without contrast [[id number]] No significant abnormality identified in the thoracic spine . Evaluation for epidural absce ss is limited without IV contrast. Right-sided pleural effusion . Multiple cavitating lung nodules. This is suboptimally image d with this technique. Consider correlation with CT. RADIA Electronically signed by Maegan Maddox MD on Oct 02 2015 5:00AM Referring Provider Line: [phone] ID: [id number] MRI thoracic spine without contrast [[id number]] Impression Degenerative disk disease at L5-S1. No significant central canal stenosis. Other disk space s are unremarkable . Evaluation for epidural abscess is limited without IV contrast. Bilateral posterior paraspinal muscular edema , nonspecific. No fluid collection amenable t o drainage is identified. RADIA Electronically signed by Maegan Maddox MD on Oct 02 2015 5:03AM Referring Provider Line: [phone] ID: [id number] MRI lumbar spine without contrast [[id number]] Impression 1. LV size, wall thickness and systolic function are normal, with an EF of 60%. 2. The diastolic filling pattern indicates impaired relaxation consistent with mild dysfunc tion (Grade I). 3. The right ventricle is mildly enlarged, but right ventricular systolic function is dorothy l. 4. Moderate tricuspid regurgitation present. 5. There is moderate pulmonary hypertension. The right ventricular systolic pressure (pul monary artery systolic pressure), as measured by Doppler, is 50.27mmHg. 6. Moderate sized, mobile vegetation attached to the septal tricuspid valve leaflet. Echo cardiac adult complete [[id number]] PROBLEM LIST Principal Problem: Sepsis (HCC) Active Problems: Hyposmolality and/or hyponatremia MARCEL (acute kidney injury) (HCC) Leucocytosis Thrombocytopenia (HCC) Toxic metabolic encephalopathy Acute respiratory failure with hypoxia (HCC) Heroin abuse Methamphetamine abuse Tobacco abuse Acute septic pulmonary embolism (HCC) Acute infective endocarditis Moderate protein-calorie malnutrition (HCC) ASSESSMENT & PLAN Gram-positive sepsis -Patient has MSSA bacteremia, tricuspid valve endocarditis with septic pulmonary emboli re lated to IV drug use -Neck pain and back pain improved; noncontrast MRI of spine and brain on presentation show s no evidence of infection -No evidence of septic arthritis; evaluated by orthopedics -No surgical intervention warranted at this time; evaluated by CT surgery -Blood cultures on admission here have no growth to date. PICC placed. Central line sedrick pina -MRSA nasal PCR negative. Blood cultures from [facility] and tracheal aspirate culture at [facility] have been confirmed to be MSSA. He had been initially on IV vancomycin and ceftria xone and on 10/03 transitioned to IV nafcillin with plan for 6 weeks of IV antibiotic therapy in a supervised setting -Leukocytosis is trending downwards and patient is afebrile. Has complications of endocar ditis, see below Encephalopathy, metabolic -Mental status improved previously then deteriorated on 10/04 with return to ICU -Initial CSF analysis at [facility] had been reassuring; no reported growth on CSF cult ure. -He has no meningeal signs on exam; head CT with no acute findings. Prior non-contrast MR I negative. -hyponatremia was considered to possibly be contributory; Na 126 -may need to repeat brain MRI if encephalopathy persistent to r/o emboli/abscess Acute hypoxemic respiratory failure -Initially improved and the patient had been successfully extubated; currently on O2/NC -Known septic pulmonary emboli -On 10/04, found to have bilateral pleural effusions. Status post pigtail chest tube place ment, right; 1 L of purulent drainage had been removed. Pleural fluid analysis consistent wi th exudate. Culture in process AK I -Followed by nephrology; renal failure attributed to hemodynamics initially - GFR improved on 10/02 with increasing creatinine trend since 10/03; possibilities that we re considered: acute interstitial nephritis from antibiotics (urine eosinophils were negativ e), postinfectious glomerulonephritis -He is off IV vancomycin -nafcillin does not require antibiotic dose adjustment for GFR; will continue cautious gillian atment with nafcillin, recognizing that it can cause AIN -Hemodialysis started on 10/05 Abnormal LFTs -Most likely from sepsis and trended down previously -Acute hepatitis profile negative. Transaminases are now normal -noted trend up of bilirubin on 10/04; IV nafcillin dose decreased to 2 g q6. Total bilir ubin slight trend down today. ?Hemolysis contributory Petechial/purpuric rash -worse at the hands and feet on 10/04; noted to have nasal/oral lesions as well -platelet count is actually showing improvement; will continue to monitor -of note, CSF analysis not suggestive of meningococcemia IV drug use -Last use had been the day prior to admission -Patient had been counseled about the adverse effects of IV drugs to his health; advised s topping IV drug use -Not a candidate for home IV antibiotic therapy -HIV rapid screen came back negative; acute retroviral syndrome ruled out, HIV RNA PCR und etectable Microcytic anemia -acute drop in Hgb, ?hemolytic -plan for blood transfusion Code Status: Full Code USMAN VILLATORO MD 10/07/2015 onversion Moses saction, Provider Unknown - 10/07/2015 6:56 AM PDTFormatting of this note might be differen t from the original. Therapy Progress Note by GISELA Boyd at 10/07/15 0656 Author: GISELA Boyd Service: (none) Author Type: Occupational Therapist Filed: 10/07/15 0657 Date of Service: 10/07/15655 Status: Signed Bisque Brusher: GISELA Boyd (Occupational Therapist) 10/07/15 0656 OT Last Visit OT Received On 10/07/15 Requires OT Follow Up On hold;No Other Comments Comments Pt transferred back into ICU--will await new OT eval orders if/when appropriate. P t discharged from acute skilled OT services at this time. 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 Hospital Day: LOS: 6 days Post-Op Day: * No surgery found * Consulting Physicians Treatment Team: Consulting Physician: Chris Swann DO Consulting Physician: Renetta Buck MD Consulting Physician: Gonzalez Bhardwaj MD Surgeon: Blanca Arias MD Consulting Physician: Blanca Arias MD Admitting Provider: Carly Thomas DO SUBJECTIVE Patient Summary: The patient is a 30 y.o. male with significant history of tobacco an d drug abuse using daily heroin and methamphetamine, also on Suboxone. He initially presen latasha to [facility] for progressive weakness, lethargy, and generalized pain (most ly his chest, neck, back, knees, ankles and toes) for the past 7 days. She noticed that his ankles and right knee were swollen but not warm or erythematous. According to his girlfriend , he has been feeling sick and febrile for the past week with poor PO intake. Yesterday, she noticed that he seemed like he was hallucinating and talking to himself. He was very weak t natalie that she had to assist him to get into the car to go the the ED. Exam at OSH was significant for point tenderness at the area of the cervical spine and posi tive Kernig's sign. LP was performed to rule out meningitis. IV antibiotics started, ceftria xone 2 gm and vancomycin [address] head and C-spine x-ray performed, MRI attempted but patient decompensated and was intubated for respiratory failure and airway protection. Significant labs: Na 114 (1435 hrs), BUN 81, Crea 2.48, WBC 19.9, Hb 11.6, Plt 51, Tbili 3. 6, AST 188, ALT 155, LA 1.7. CSF: clear, colorless, WBC 0, RBC 3. Transferred to [facility] for further care. Timeline: Evaluated by Nephrology, acute renal failure attributed to hemodynamics. Evaluated by Dr. Bhardwaj from orthopedics: Does not think patient has ankle septic joint and does not recom mend surgical intervention. Echocardiogram showed moderate size mobile vegetation attached to the septal tricuspid valv e leaflet, moderate tricuspid regurgitation, moderate pulmonary hypertension with mildly enl arged right ventricle. Evaluated by CTS, surgery not recommended On 10/01, extubated. MRI spine w/o evidence abscess On 10/02, he was transferred out of the ICU. 10/04-Transferred to ICU for worsening mental status, drop of Na from 122 to 117 and worseni ng renal function 10/05-HD line placed, started on dialysis. Right pigtail chest tube with drainage of 1400 ml serosanguineous exudate SCHEDULED MEDICATIONS heparin (porcine) 5000 unit/0.5mL 5,000 Units Subcutaneous 3 times per day nafcillin 2 g Intravenous Q6H pantoprazole 40 mg Intravenous BID polyethylene glycol 17 g Oral Daily sennosides 10 mL Oral Nightly sodium chloride 10 mL Intravenous 2 times per day CONTINUOUS INFUSIONS dexmedetomidine in NS 0.9 mcg/kg/hr (10/07/15 0247) norepinephrine in D5W 64 mcg/mL 2 mcg/min (10/07/15 0030) OBJECTIVE VITAL SIGNS Temp: [97.3 F (36.3 C)-98.6 F (37 C)] 97.9 F (36.6 C) Heart Rate: [79-114] 100 Resp: [17-38] 32 BP: (81-129)/(45-72) 98/54 mmHg Intake/Output Summary (Last 24 hours) at 10/07/15 0459 Last data filed at 10/07/15 0019 Gross per 24 hour Intake 6039.86 ml Output 7476 ml Net -1436.14 ml EXAM GEN: awake, oriented to person and place NEURO: PERRLA, no facial asymmetry, moves all extremities well HEENT: sclerae clear, nonicteric, oral mmm, pink, no exudates NECK: supple, trachea midline HEART: RRR, S1/S2, 2/6 systolic murmur RLSB LUNGS: tachypneic, , no wheezing, rales or rhonchi, symmetric chest expansion, ABD: soft, nondistended, nontender to palpation, no masses, no hepatosplenomegaly EXTR: edema all extremities, clubbing or cyanosis SKIN: diffuse purpuric palpable rash bilateral anterior lower extremities, also hand and fe et. LINES/TUBES: Right UE PICC, right IJ CVC 10/05 DATA Recent Labs Lab 10/06/15 0403 10/05/15 0419 10/04/15 0440 10/03/15 0345 WBC 20.97* 31.87* 14.41* 14.88* RBC 2.98* 3.99* 3.39* 3.36* HGB 7.8* 10.6* 9.0* 8.9* HCT 23.8* 32.3* 27.3* 27.0* MCV 79.9* 80.9 80.5 80.6 MCH 26.2* 26.7* 26.6* 26.6* MCHC 32.7 33.0 33.1 33.0 RDW 41.1 41.6 40.3 38.1 PLT 118* 119* 69* 58* MPV 8.9 9.7 9.9 10.9 BANDSABS 0.84* -- 1.01* 1.04* MORPH 1+ RBC AND PLT MORPHOLOGY APPEAR NORMAL RBC AND PLT MORPHOLOGY APPEAR NORMAL RBC AND PLT MORPHOLOGY APPEAR NORMAL Recent Labs Lab 10/06/15 2215 10/06/15 1846 10/06/15 1520 10/06/15 0403 10/05/15 0419 10/04/15 0440 10/01/15 1935 NA 126* 128* 125* < > 122* < > 122* < > 123* < > 120* K -- 4.7 -- -- 5.5* -- 4.6 -- 3.9 < > 4.5 CL -- 91* -- -- 89* -- 89* -- 89* < > 87* CO2 -- 23 -- -- 18* -- 20* -- 23 < > 22* ANIONGAP -- 18 -- -- 21* -- 17 -- 15 < > 15 GLUF -- 92 -- -- 102* -- 140* -- 115* < > 112* BUN -- 68* -- -- 115* -- 97* -- 78* < > 75* CREATININE -- 2.9* -- -- 3.9* -- 2.9* -- 1.6* < > 1.9* BCR -- 24 -- -- 29 -- 33 -- 49 < > 39 CA -- 6.4* -- -- 6.4* -- 6.3* -- 6.7* < > 5.9* ALB -- -- -- -- 1.6* -- 1.4* -- 1.4* < > 1.5* GLOB -- -- -- -- -- -- -- -- -- -- 3.6 AG -- -- -- -- -- -- -- -- -- -- 0.4* PROT -- -- -- -- 4.5* -- 5.1* -- 5.2* < > 5.1* BILITOT -- -- -- -- 9.0* -- 7.5* -- 2.0* < > 3.4* ALT -- -- -- -- 47 -- 56 -- 63 < > 129* AST -- -- -- -- 58* -- 63* -- 61* < > 192* EGFR -- 27* -- -- 19* -- 27* -- 54* < > 44* PHOS -- -- -- -- 8.1* -- 5.1* -- 3.6 < > -- MG -- -- -- -- 3.1* -- 3.1* -- 3.0* < > -- < > = values in this interval not displayed. Recent Labs Lab 10/07/15 0357 10/06/15 0403 10/05/15 1238 INR 1.5 1.6 1.5 IMAGING Echo Impression 1. LV size, wall thickness and systolic function are normal, with an EF of 60%. 2. The diastolic filling pattern indicates impaired relaxation consistent with mild dysfunc tion (Grade I). 3. The right ventricle is mildly enlarged, but right ventricular systolic function is dorothy l. 4. Moderate tricuspid regurgitation present. 5. There is moderate pulmonary hypertension. The right ventricular systolic pressure (pu lmonary artery systolic pressure), as measured by Doppler, is 50.27mmHg. 6. Moderate sized, mobile vegetation attached to the septal tricuspid valve leaflet. Microbiology data: 09/27 blood cultures obtained from [facility] are growing MSSA from 3 out of 3 bottles CSF culture result has not yet been faxed but per personnel from [place] microbiology, no growth 09/30 blood cultures with no growth to date 09/30 MRSA nasal PCR negative 09/30 tracheal aspirate culture grew 3+ MSSA 10/03 urine culture with no growth PROBLEM LIST Principal Problem: Sepsis (HCC) Active Problems: Hyposmolality and/or hyponatremia MARCEL (acute kidney injury) (HCC) Leucocytosis Thrombocytopenia (HCC) Toxic metabolic encephalopathy Acute respiratory failure with hypoxia (HCC) Heroin abuse Methamphetamine abuse Tobacco abuse Acute septic pulmonary embolism (HCC) Acute infective endocarditis Moderate protein-calorie malnutrition (HCC) ASSESSMENT & PLAN NEURO: Septic encephalopathy Avoid rapid correction of hyponatremia. No more than 8-10 mEq/d Consider MRI brain r/o brain abscess, however contrast cant be given with current renal function. CSF w/o growth from [facility] CV: Hemodynamically stable on no vasoactive medication Currently euvolemia PULM: Hypoxemic respiratory failure-stable on minimal O2 via NC Pulmonary septic embolic from MSSA tricuspic valve IE Right pleural effusion s/p pigtail chest tube 10/05. Exudative by Lights criteria. PH, gl ucose not consistent with complicated infected effusion. Left pleural effusion minimal on be dside ultrasound (not amenable for thoracentesis) GI/NUTRITION: Severe malnutrition secondary to infectious process Renal diet Mild Transaminitis with elevated bilirubin- worsening hyperbilirubinemia. From sepsis or medication induced. Hepatitis serologies and HIV negative. Continue to monitor. RENAL/LYTES: MARCEL. Anuric with worsening renal function. ATN vs C3 staph induced glomeurlonephritis. UA with hematuria. C3 low. C4 wnl. Low C3 likely from MSSA infectious process, but juan carlos l biopsy unlikely to alter management Unlikely AIN. Urine eosinophils negative Hepatitis serologies and HIV negative. Consider HCV RNA Hyponatremia. Currently euvolemic. Likely mixed, initially hypovolemic. Cortisol and TSH wnl HD placed, started on dialysis 10/05 ID: MSSA tricuspid valve endocarditis. Bedside ultrasound shows tricuspic posterior leaflet involvement on RV inflow view and septal leaflet involvement seen on 4C view. Followed by ID. On nafcillin q6h adjusted for cholestatic picture (likely sepsis) Right pleural effusion s/p pigtail chest tube 7/19. Exudative by Lights criteria. PH, g lucose not consistent with complicated infected effusion. Left pleural effusion minimal on b edside ultrasound (not amenable for thoracentesis) HEME: Platelets stable Anemia-Multifactorial (infection, blood draws) but stable ENDO: Monitor BS MUSC/SKIN: Vasculitis from IE/sepsis PROPHYLAXIS: Stress ulcer prophylaxis: on PPI DVT prophylaxis: Heparin SC VAP bundle: N/A Disposition: ICU Code Status: Full Code *Please bill 45 minutes of critical care time spent evaluating the patient, reviewing the d michael and formulating a plan exclusive of all other procedures. Maegan Rod MD 10/07/2015 4:59 AM onversion Transact ion, Provider Unknown - 10/06/2015 11:18 AM PDTFormatting of this note might be different fr om the original. Case Management by Kylee Amanda RN at 10/06/15 1118 Author: Kylee Aamnda RN Service: (none) Author Type: Registered Nurse Filed: 10/06/15 1123 Date of Service: 10/06/15 1118 Status: Signed Bisque Brusher: Kylee Amanda RN (Registered Nurse) Per víctor linares from floor 18, CT x1, CAM(+), RA, NPO, HD today. Usman Blount MD - 10/06/2015 11:02 AM PDT Progress Notes by Usman Villatoro MD at 10/06/15 1102 Author: Usman Villatoro MD Service: Infectious Disease Author Type: Physician Filed: 10/06/152018 Date of Service: 10/06/15 110 Status: Signed Bisque Brusher: Usman Villatoro MD (Physician) [facility] Service: Infectious Disease Progress Note Hospital Day: LOS: 5 days Post-Op Day: * No surgery found * SUBJECTIVE Patient Summary: CC: Fever, chest pain and altered mental status From Auto Dealer's admission note on 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 male with significant history of tobacco and drug abuse using daily heroin and methamphetamine, also on Suboxone. He initially presented to [facility] for progressive weakness, lethargy, and ge neralized pain (mostly his chest, neck, back, knees, ankles and toes) for the past 7 days. H e noticed that his ankles and right knee were swollen but not warm or erythematous. Nessa barnett to his girlfriend, he has been feeling sick and febrile for the past week with poor PO int elisha. Yesterday, she noticed that he seemed like he was hallucinating and talking to himself. He was very weak today that she had to assist him to get into the car to go the the ED. Exam at OSH was significant for point tenderness at the area of the cervical spine and posi tive Kernig's sign. LP was performed to rule out meningitis. IV antibiotics started, ceftria xone 2 gm and vancomycin [address] head and C-spine x-ray performed, MRI attempted but patient decompensated and was intubated for respiratory failure and airway protection. Significant labs: Na 114 (1435 hrs), BUN 81, Crea 2.48, WBC 19.9, Hb 11.6, Plt 51, Tbili 3. 6, AST 188, ALT 155, LA 1.7. CSF: clear, colorless, WBC 0, RBC 3. Protein 31. Glucose 50. Culture with no growth to d ate Blood cultures are reported to be growing GPCs at [facility] Transferred to [facility] for further care. MRI of brain and spine carried out with limited findi ngs due to non-contrast study. Evaluated by Nephrology, acute renal failure attributed to hemodynamics. Evaluated by Dr. Bhardwaj from orthopedics: Does not think patient has ankle septic joint and does not recomme nd surgical intervention. Echocardiogram showed moderate size mobile vegetation attached to the septal tricuspid valv e leaflet, moderate tricuspid regurgitation, moderate pulmonary hypertension with mildly enl arged right ventricle. Evaluated by CTS, surgery not recommended On 10/01, extubated On 10/02, he was transferred out of the ICU. Events Overnight: Patient had worsening mental status and also became tachypneic. H e became more hyponatremic with worsening renal function. Bilateral moderate sized pleural effusions were noted on chest CT scan. Bedside ultrasound with bilateral pleural effusion, R>L. Left minimal and without echogenic ity suggestive of infectious pleural effusion. Left effusion is moderate with fibrin strands concerning for complicated/infectious pleural effusion. Right pig tail chest tube placed wi th purulent drainage. Lethargic and oriented to self only. Scheduled Medications epoetin juliet 20,000 Units Intravenous Once in dialysis fentaNYL lidocaine buffered 1% 0.5 mL Intradermal Once nafcillin 2 g Intravenous Q6H pantoprazole 40 mg Intravenous BID polyethylene glycol 17 g Oral Daily sennosides 10 mL Oral Nightly sodium bicarbonate buffer 5 mL Infiltration Once sodium bicarbonate buffer 5 mL Infiltration Once sodium chloride 10 mL Intravenous 2 times per day sodium citrate anticoagulant 4 % 6 mL Intracatheter Once in dialysis Continuous Infusions dexmedetomidine in NS 0.3 mcg/kg/hr (10/06/15 1037) PRN Medications acetaminophen OR acetaminophen, lip moisturizer, morphine, ondansetron OR ondansetr on, promethazine, sodium chloride OBJECTIVE Vital Signs: BP 93/50 mmHg | Pulse 93 | Temp(Src) 98.6 F (37 C) (Oral) | Resp 22 | Ht 1.702 m (5' 7" ) | Wt 74.2 kg (163 lb 9.3 oz) | BMI 25.61 kg/m2 | SpO2 98% Temp: [97.3 F (36.3 C)-98.6 F (37 C)] 98.6 F (37 C) (10/05 0745) BP: (90-133)/(50-90) 93/50 mmHg (10/05 1055) Heart Rate: [83-118] 93 (10/05 1055) Resp: [22-45] 22 (10/05 1055) SpO2: [89 %-100 %] 98 % (10/05 1055) Weight: [74.2 kg (163 lb 9.3 oz)] 74.2 kg (163 lb 9.3 oz) (10/04 2029) Physical Exam Vital signs have been reviewed Gen.: Somnolent. Wakes up with verbal and tactile stimuli. Oriented to person only HEENT: Normocephalic. Icteric sclerae. Conjunctival pallor is noted. No nasal mucosal lesio ns. Dry oral mucosa. Neck is supple with no cervical lymphadenopathy. Some petechiae are not ed at the left neck where he had a central line that had been removed R IJ hemodialysis catheter Lungs: Decreased at the bases. Coarse breath sounds. Right chest tube in place Cardiovascular: Tachycardic, regular rhythm. Systolic murmur is noted Abdomen: No distention. Soft. No tenderness or palpable masses Skin: Petechial lesions at antecubital area and forearms worse since 10/04 with petechiae at both hands with dark/black discoloration at the area of the MCPs and PIPs of both hands but no clear-cut joint effusion. He is able to move his hands without difficulty but does have tenderness. Petechial lesions at his legs appear better but he has worsening petechiae at both feet. PICC site at right upper extremity is unremarkable Musculoskeletal: No inflamed looking joints Neurologic: Appears to be able to move all extremities. DATA CBC: Lab Results Component Value Date WBC 20.97* 10/06/2015 RBC 2.98* 10/06/2015 HGB 7.8* 10/06/2015 HCT 23.8* 10/06/2015 MCV 79.9* 10/06/2015 MCH 26.2* 10/06/2015 MCHC 32.7 10/06/2015 RDW 41.1 10/06/2015 PLT 118* 10/06/2015 MPV 8.9 10/06/2015 DIFFTYPE MANUAL 10/06/2015 WBC: Lab Results Component Value Date WBC 20.97* 10/06/2015 NEUTABSMAN 19.08* 10/06/2015 NEUTROMAN 91 10/06/2015 LYMPHOABS 0.21* 10/06/2015 LYMPHOMAN 1 10/06/2015 MONOABSMAN 0.84* 10/06/2015 MONOMAN 4 10/06/2015 PLTEST DECREASED 10/03/2015 BANDSPCT 4 10/06/2015 CMP: Lab Results Component Value Date NA 121* 10/06/2015 K 5.5* 10/06/2015 CL 89* 10/06/2015 CO2 18* 10/06/2015 ANIONGAP 21* 10/06/2015 GLUF 102* 10/06/2015 BUN 115* 10/06/2015 CREATININE 3.9* 10/06/2015 BCR 29 10/06/2015 CA 6.4* 10/06/2015 PROT 4.5* 10/06/2015 ALB 1.6* 10/06/2015 GLOB 3.6 10/01/2015 BILITOT 9.0* 10/06/2015 ALP 55 10/06/2015 AST 58* 10/06/2015 ALT 47 10/06/2015 EGFR 19* 10/06/2015 LDH: Lab Results Component Value Date LDH 286* 10/05/2015 PT/INR: Lab Results Component Value Date INR 1.6 10/06/2015 PTT: Lab Results Component Value Date APTT 39* 10/01/2015 [APTT} Last 3 Troponin: No results found for: TROPONINI CPK: No results found for: CKTOTAL CKMB: No results found for: CKMB U/A: No results found for: COLORU, CLARITYU, MEROPENEM, LEUKOCYTESUR, NITRITE, UROBILINOGE N, UPRO, PHUR, BLOODU, KETONES, BILIRUBINUR, GLUCOSEU HgBA1c: Lab Results Component Value Date HGBA1C 5.8 10/03/2015 LABGLYC 120 10/03/2015 TSH: Lab Results Component Value Date TSH 0.75 10/03/[address] [facility] 10/04/2015 3:32 PM URINE EOSINOPHILS <1 % NO EOSINOPHILS SEEN Component Latest Ref [facility] 10/04/2015 3:32 PM ASO 0 - 250 IU/mL <[address] Lat[address] [facility] 10/04/2015 3:32 PM COMPLEMENT C3 90 - 180 mg/dL 65 (L) COMPLEMENT C4 10 - 40 mg/dL 10.8 Microbiology data: 09/27 blood cultures obtained from [facility] are growing MSSA from 3 out of 3 bottles CSF culture reportedly with no growth 09/30 blood cultures with no growth to date 09/30 MRSA nasal PCR negative 09/30 tracheal aspirate culture grew 3+ MSSA 10/03 urine culture with no growth 10/05 pleural fluid Gram stain 2+ WBCs, no organisms; culutre in process TP 3.4, LDH 788, pH 7.57. 656758 RBCs/mL, 3154 WBCs with 77% neutrophils Radiology data: Impression 1. No acute intracranial hemorrhage, mass or infarct. head without contrast [[id number]] Impression 1. Bilateral cavitary lesions of the lungs consistent with septic emboli. 2. Bilateral moderate sized pleural effusions with adjacent basilar atelectasis. 3. Diffuse ascites. 4. Dilated and thickened small bowel loops of the central abdomen, may represent obstructi on. Nonspecific enteritis is also possible including inflammatory, infectious or ischemic et iologies. chest abdomen pelvis without contrast [[id number]] Impression 1. Satisfactory RIGHT internal jugular dialysis catheter placement. 2. Improving alveolar infiltrate in the LEFT lung. 3. Persistent multiple bilateral septic emboli. 4. Persistent bilateral small pleural effusions. chest 1 view [[id number]] Impression No acute or focal intracranial abnormality . No evidence of infarct or hemorrhage. RADIA Electronically signed by Maegan Maddox MD on Oct 02 2015 4:49AM Referring Provider Line: [phone] ID: [id number] MRI brain without contrast [[id number]] Impression No cord impingement or cord signal abnormality identified. No findings suggesting diskitis or osteomyelitis. Prominence to the epidural space in the upper cervical spine , potentially a prominent epidural venous plexus. Evaluation for abscess is limited without IV contrast. Followup suggested. RADIA Electronically signed by Maegan Maddox MD on Oct 02 2015 5:45AM Referring Provider Line: [phone] ID: [id number] MRI cervical spine without contrast [[id number]] No significant abnormality identified in the thoracic spine . Evaluation for epidural absce ss is limited without IV contrast. Right-sided pleural effusion . Multiple cavitating lung nodules. This is suboptimally image d with this technique. Consider correlation with CT. RADIA Electronically signed by Maegan Maddox MD on Oct 02 2015 5:00AM Referring Provider Line: [phone] ID: [id number] MRI thoracic spine without contrast [[id number]] Impression Degenerative disk disease at L5-S1. No significant central canal stenosis. Other disk space s are unremarkable . Evaluation for epidural abscess is limited without IV contrast. Bilateral posterior paraspinal muscular edema , nonspecific. No fluid collection amenable t o drainage is identified. RADIA Electronically signed by Maegan Maddox MD on Oct 02 2015 5:03AM Referring Provider Line: [phone] ID: [id number] MRI lumbar spine without contrast [[id number]] Impression 1. LV size, wall thickness and systolic function are normal, with an EF of 60%. 2. The diastolic filling pattern indicates impaired relaxation consistent with mild dysfunc tion (Grade I). 3. The right ventricle is mildly enlarged, but right ventricular systolic function is dorothy l. 4. Moderate tricuspid regurgitation present. 5. There is moderate pulmonary hypertension. The right ventricular systolic pressure (pul monary artery systolic pressure), as measured by Doppler, is 50.27mmHg. 6. Moderate sized, mobile vegetation attached to the septal tricuspid valve leaflet. Echo cardiac adult complete [[id number]] PROBLEM LIST Principal Problem: Sepsis (HCC) Active Problems: Hyposmolality and/or hyponatremia MARCEL (acute kidney injury) (HCC) Leucocytosis Thrombocytopenia (HCC) Toxic metabolic encephalopathy Acute respiratory failure with hypoxia (HCC) Heroin abuse Methamphetamine abuse Tobacco abuse Acute septic pulmonary embolism (HCC) Acute infective endocarditis Moderate protein-calorie malnutrition (HCC) ASSESSMENT & PLAN Gram-positive sepsis -Patient has MSSA bacteremia, tricuspid valve endocarditis with septic pulmonary emboli re lated to IV drug use -Neck pain and back pain improved; noncontrast MRI of spine and brain shows no evidence of infection -No evidence of septic arthritis; evaluated by orthopedics -No surgical intervention warranted at this time; evaluated by CT surgery -Blood cultures on admission here have no growth to date. PICC placed. Central line sedrick pina -MRSA nasal PCR negative. Blood cultures from [facility] and tracheal aspirate culture at [facility] have been confirmed to be MSSA. He had been initially on IV vancomycin and ceftria xone and on 10/03 transitioned to IV nafcillin with plan for 6 weeks of IV antibiotic therapy and a supervised setting -Leukocytosis is trending downwards and patient is afebrile Encephalopathy, metabolic -Mental status improved previously then deteriorated on 10/04 with return to ICU -Initial CSF analysis at [facility] had been reassuring; no reported growth on CSF cult ure. -He has no meningeal signs on exam; head CT with no acute findings. Prior non-contrast MR I negative. -?secondary to hyponatremia Acute hypoxemic respiratory failure -Initially improved and the patient had been successfully extubated; currently on O2/NC -Known septic pulmonary emboli -On 10/04, found to have bilateral pleural effusions. Status post pigtail chest tube place ment, right; 1 L of purulent drainage had been removed. Pleural fluid analysis consistent wi th exudate. AK I -Followed by nephrology; renal failure attributed to hemodynamics initially - GFR improved on 10/02 with increasing creatinine trend since 10/03; possibilities that ar e being considered are acute interstitial nephritis from antibiotics (urine eosinophils were negative), postinfectious glomerulonephritis -He is off IV vancomycin -nafcillin does not require antibiotic dose adjustment for GFR; will continue cautious gillian atment with nafcillin, recognizing that it can cause AIN -Plan for hemodialysis today; axis has been placed abnormal LFTs -Most likely from sepsis and trended down previously -Acute hepatitis profile negative -noted trend up of bilirubin; IV nafcillin dose decreased to 2 g q6. Will monitor LFTs Petechial rash -worse at the hands and feeton 10/04 -platelet count is actuallyshowing improvement; will continue to monitor -of note, CSF analysis not suggestive of meningococcemia IV drug use -Last use had been the day prior to admission -Patient had been counseled about the adverse effects of IV drugs to his health; advised s topping IV drug use -Not a candidate for home IV antibiotic therapy -HIV rapid screen came back negative; acute retroviral syndrome ruled out, HIV RNA PCR und etectable Case had been discussed with Dr. Villa Code Status: Full Code USMAN VILLATORO MD 10/06/2015 onversion Moses saction, Provider Unknown - 10/06/2015 9:21 AM PDTFormatting of this note might be differen t from the original. Therapy Progress Note by Abran Parrish, PT at 10/06/15 0921 Author: Abran Parrish PT Service: (none) Author Type: Physical Therapist Filed: 10/06/152014 Date of Service: 10/06/15920 Status: Signed Bisque Brusher: Abran Parrish PT (Physical Therapist) 10/06/15 09 PT Last Visit PT Received On 10/06/15 (spoke to ZOLTAN Chau, recommends to hold PT...will need) Requires PT Follow Up On hold (new orders since transfer down to ICU) Adarsh Mackey MD - 10/06/2015 7:44 AM PDT Progress Notes by Adarsh Crews MD at 10/06/15743 Author: Adarsh Crews MD Service: Nephrology Author Type: Physician Filed: 10/06/1502 Date of Service: 10/06/15743 Status: Signed Bisque Brusher: Adarsh Crews MD (Physician) [facility] Service: Nephrology Progress Note Hospital Day: LOS: 5 days Post-Op Day: * No surgery found * SUBJECTIVE Patient Summary: Reviewed medical records expensively. The patient is a 30 y.o. male with significant history of tobacco and drug abuse using daily heroin and methamphetamine, also on Suboxone. He initially presented to [facility] for progressive weaknes s, lethargy, and generalized pain for the past 7 days. He noticed that his ankles and right knee were swollen but not warm or erythematous. According to his girlfriend, he has been fee ling sick and febrile for the past week with poor oral intake. LP was performed to rule out meningitis. IV antibiotics started, ceftriaxone 2 gm and vancomycin [address] head and C-spine x-ray performed, patient decompensated and was intubated for respiratory failure and airway protection and admitted to the ICU. Significant labs on initial presentation : Na 114 (1435 hrs), BUN 81, Crea 2.48, Over next 12-24 hrs, his sodium abruptly improved to a peak of126 by 6 AM on 10/01, so c ounter measures were started to avoid over correction. Patient received DDAVP X2 X 2 MCG AT 4 AND 8 AM ON 10/01 and is on D5W AT 200 ML/HR. He has never been hospitalized because of low sodium. He has never been symptomatic because of low sodium. There are no herbal preparation intake; he does not have hx of liver cirrhos is. He does not have hx of CHF, hypothyroidism or adrenal insufficiency.There is no hx of ch ronic diarrhea and no N/V. Events Overnight: Note worsening serum Na+ and oligo-anuria with volume restriction. Albarran catheter placed and no urine in the bladder. Attempts to give fluid (NS) worsened the hyponatremia. Need for 3% saline and more intense monitoring required ICU transfer, hence th e patient was transferred. His mental status worsened. Currently not responding much. He is also tachypneic. Reviewed labs and medical records. Note worsening azotemia and anasarca. Scheduled Medications fentaNYL lidocaine buffered 1% 0.5 mL Intradermal Once nafcillin 2 g Intravenous Q6H pantoprazole 40 mg Intravenous BID polyethylene glycol 17 g Oral Daily sennosides 10 mL Oral Nightly sodium bicarbonate buffer 5 mL Infiltration Once sodium bicarbonate buffer 5 mL Infiltration Once sodium chloride 10 mL Intravenous 2 times per day sodium chloride 1 g Oral TID WC Continuous Infusions dexmedetomidine in NS 0.3 mcg/kg/hr (10/06/15399) PRN Medications acetaminophen OR acetaminophen, lip moisturizer, morphine, ondansetron OR ondansetr on, promethazine, sodium chloride OBJECTIVE Vital Signs: BP 98/54 mmHg | Pulse 90 | Temp(Src) 98.2 F (36.8 C) (Oral) | Resp 29 | Ht 1.702 m (5' 7") | Wt 74.2 kg (163 lb 9.3 oz) | BMI 25.61 kg/m2 | SpO2 97% Temp: [97.3 F (36.3 C)-98.2 F (36.8 C)] 98.2 F (36.8 C) (10/06 399) BP: (90-133)/(50-92) 98/54 mmHg (10/05 699) Heart Rate: [87-118] 90 (10/05 699) Resp: [28-45] 29 (10/05 699) SpO2: [89 %-99 %] 97 % (10/05 699) Weight: [74.2 kg (163 lb 9.3 oz)] 74.2 kg (163 lb 9.3 oz) (10/04 2030) Intake/Output Summary (Last 24 hours) at 10/06/15 0744 Last data filed at 10/06/15 0555 Gross per 24 hour Intake 1614.14 ml Output 1294 ml Net 320.14 ml Physical Exam Constitutional: He appears well-developed and well-nourished. HENT: Head: Normocephalic and atraumatic. Mouth/Throat: No oropharyngeal exudate. Blood crusts in the nostrils and mouth. Eyes: Conjunctivae are normal. No scleral icterus. Neck: Neck supple. No JVD present. No thyromegaly present. Cardiovascular: Normal rate, regular rhythm, normal heart sounds and intact distal pulses. Exam reveals no gallop and no friction rub. No murmur heard. Pulmonary/Chest: Breath sounds normal. He is in respiratory distress (tachypneic, breathing at almost 28/min). He has no wheezes. He has no rales. Abdomina/Gl: Bowel sounds are normal. He exhibits no mass. There is no guarding. Firm, non tender. Musculoskeletal: He exhibits edema (worsening peripheral edema involving all the extremitie s and torso). He exhibits no tenderness. Lymphadenopathy: He has no cervical adenopathy. Neurological: Obtunded. Skin: Skin is warm and dry. No rash noted. Nursing note and vitals reviewed. DATA CBC: Lab Results Component Value Date WBC 20.97* 10/06/2015 RBC 2.98* 10/06/2015 HGB 7.8* 10/06/2015 HCT 23.8* 10/06/2015 MCV 79.9* 10/06/2015 MCH 26.2* 10/06/2015 MCHC 32.7 10/06/2015 RDW 41.1 10/06/2015 PLT 118* 10/06/2015 MPV 8.9 10/06/2015 DIFFTYPE MANUAL 10/06/2015 WBC: Lab Results Component Value Date WBC 20.97* 10/06/2015 NEUTABSMAN 19.08* 10/06/2015 NEUTROMAN 91 10/06/2015 LYMPHOABS 0.21* 10/06/2015 LYMPHOMAN 1 10/06/2015 MONOABSMAN 0.84* 10/06/2015 MONOMAN 4 10/06/2015 PLTEST DECREASED 10/03/2015 BANDSPCT 4 10/06/2015 CMP: Lab Results Component Value Date NA 122* 10/06/2015 K 5.5* 10/06/2015 CL 89* 10/06/2015 CO2 18* 10/06/2015 ANIONGAP 21* 10/06/2015 GLUF 102* 10/06/2015 BUN 115* 10/06/2015 CREATININE 3.9* 10/06/2015 BCR 29 10/06/2015 CA 6.4* 10/06/2015 PROT 4.5* 10/06/2015 ALB 1.6* 10/06/2015 GLOB 3.6 10/01/2015 BILITOT 9.0* 10/06/2015 ALP 55 10/06/2015 AST 58* 10/06/2015 ALT 47 10/06/2015 EGFR 19* 10/06/2015 Magnesium: Lab Results Component Value Date MG 3.1* 10/06/2015 Phosphorus: Lab Results Component Value Date PHOS 8.1* 10/06/2015 PT/INR: Lab Results Component Value Date INR 1.6 10/06/2015 PTT: Lab Results Component Value Date APTT 39* 10/01/2015 TSH: Lab Results Component Value Date TSH 0.75 10/03/2015 URIC ACID: 11.4 as of 10/05/2015 Medical Record Review: Reviewed extensively for this encounter. PROBLEM LIST Principal Problem: Sepsis (HCC) Active Problems: Hyposmolality and/or hyponatremia MARCEL (acute kidney injury) (HCC) Leucocytosis Thrombocytopenia (HCC) Toxic metabolic encephalopathy Acute respiratory failure with hypoxia (HCC) Heroin abuse Methamphetamine abuse Tobacco abuse Acute septic pulmonary embolism (HCC) Acute infective endocarditis Moderate protein-calorie malnutrition (HCC) @MALDXPLAN@ ASSESSMENT & PLAN HYPONATREMIA; the etiology is likely due to methamphetamine use and worsened by nausea and poor po intake lately. He expectedly over-corrected as he was fluid rescucitated. Received d dAVP to prevent worsening over correction. Was on fluid restriction to self correct slowly. However, note stalling and drop in serum Na without correction. Now in the ICU with worsenin g AMS/obtundation and edema with continued fluid/electrolyte replacement. Case and care plan discussed with piercing artist. - Will start RAILCAR SWITCHMAN with the SLEDD protocol to correct electrolyte and acid-base balance. See orders. HD RN notified. - Continue to monitor sodium q 4 - The plan is not to over correct more than 8 -10 meq/ 24 hrs. 1. MARCEL/ ARF: note continued worsening azotemia. Initial MARCEL probably hemodynamic in nature. However, now that Cr worsened,consideration of other etiologies and/or second hit injury including post infectious GN, AIN and or Vancomycin associated nephrotoxicity. Note low C3; C4 and ASO are normal; no urine eosinophils report available and UA reveals marked hematuri a without RBC casts. Possibility of post infectious (Staph) GN also entertained, though the actual management would still be treatment of the infection. The need for kidney biopsy is s till high as it may contrast the possible 3 DDx as noted above. Note significant hypoalbumin emia and possible third space volume loss. Patient also on Vancomycin with elevated levels a s of 10/04/2015. - Will dialyze patient today and again tomorrow with the SLEDD protocol. See orders. - Renal diet with 2gm Na+, 2gm K+, 1gm Phos, 1.2g protein/Kg body weight per day; total ramiro ories 9776-4004 Kcal/day. Dietary consult may assist to identify caloric needs. Feeding now as TPN or by NGT as tolerated. - Daily weights and strict I/O's. Okay with cautious IVF likely with NS. - Adjust dose of medications including antibiotics to estimated GFR ~10ml/min or ESRD dose regimen. - Avoid NSAIDs (including FRASER 2 inhibitors) and iodine contrast agents. - Avoid use of Magnesium and aluminum containing antacids. - Avoid use of Magnesium or phosphorus containing laxatives. - Get uric acid, phos, mag, CMP and CBC today and as needed. 2. Lytes/bone: - Na+: Low. Will maintain with appropriate dialysate Na+ bath to avoid overcorrection by 8- 10 points within a given 24hr period.. - K+: Elevated. Maintain with dialysate 3K+ bath. Monitor closely. - PO4: Elevated. Will correct with dialysis clearance as much as dialysis adequacy can asad mane Will monitor closely. - Bicarb: Acidosis. Will correct with appropriated dialysate bicarbonate bath. 3. BP control: BP control is acceptable. Avoid further hypotension. May need pressor jones pport with UF on HD. 4. Anemia mangement: Hb is < 8. - Will start patient on Epogen 94743 units given with dialysis today. - Will get iron panel. 5. Thrombocytopenia likely due to sepsis and or AIN. Patient also with ?nose bleed or bleed ing in the mouth. Auto Dealer to f/u. 6. 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 Case and care plan discussed with the piercing artist and intensive care team. Need for RAILCAR SWITCHMAN wit h SLEDD protocol discussed. Agreeable. Will place access for dialysis and notify me. Time spent on this encounter: 55 minutes of CCT of which about 50% was dedicated to discuss ion of case and care plan with the piercing artist and intensive care team and coordination of a cute dialysis treatment. Disposition: Possible to a care facility for continued antibiotic treatment. Code Status: Full Code ADARSH CREWS MD 10/06/2015 alsachi, Maegan Phelps MD - 10/06/2015 5:00 AM PDT Progress Notes by Maegan Rod MD at 10/06/15 050 Author: Maegan Rod MD Service: Auto Dealer Author Type: Physician Filed: 10/06/15 0511 Date of Service: 10/06/15499 Status: Signed Bisque Brusher: Maegan Rod MD (Physician) [facility] Service: Auto Dealer Progress Note Yang Ridley 30 y.o. Hospital Day: LOS: 5 days Post-Op Day: * No surgery found * Consulting Physicians Treatment Team: Consulting Physician: Chris Swann DO Consulting Physician: Renetta Buck MD Consulting Physician: Gonzalez Bhardwaj MD Surgeon: Blanca Arias MD Consulting Physician: Blanca Arias MD Admitting Provider: Carly Thomas DO SUBJECTIVE Patient Summary: The patient is a 30 y.o. male with significant history of tobacco an d drug abuse using daily heroin and methamphetamine, also on Suboxone. He initially presen latasha to [facility] for progressive weakness, lethargy, and generalized pain (most ly his chest, neck, back, knees, ankles and toes) for the past 7 days. She noticed that his ankles and right knee were swollen but not warm or erythematous. According to his girlfriend , he has been feeling sick and febrile for the past week with poor PO intake. Yesterday, she noticed that he seemed like he was hallucinating and talking to himself. He was very weak t natalie that she had to assist him to get into the car to go the the ED. Exam at OSH was significant for point tenderness at the area of the cervical spine and posi tive Kernig's sign. LP was performed to rule out meningitis. IV antibiotics started, ceftria xone 2 gm and vancomycin [address] head and C-spine x-ray performed, MRI attempted but patient decompensated and was intubated for respiratory failure and airway protection. Significant labs: Na 114 (1435 hrs), BUN 81, Crea 2.48, WBC 19.9, Hb 11.6, Plt 51, Tbili 3. 6, AST 188, ALT 155, LA 1.7. CSF: clear, colorless, WBC 0, RBC 3. Transferred to [facility] for further care. Timeline: Evaluated by Nephrology, acute renal failure attributed to hemodynamics. Evaluated by Dr. Bhardwaj from orthopedics: Does not think patient has ankle septic joint and does not recom mend surgical intervention. Echocardiogram showed moderate size mobile vegetation attached to the septal tricuspid valv e leaflet, moderate tricuspid regurgitation, moderate pulmonary hypertension with mildly enl arged right ventricle. Evaluated by CTS, surgery not recommended On 10/01, extubated. MRI spine w/o evidence abscess On 10/02, he was transferred out of the ICU. 10/04-Transferred to ICU for worsening mental status, drop of Na from 122 to 117 and worseni ng renal function SCHEDULED MEDICATIONS fentaNYL lidocaine buffered 1% 0.5 mL Intradermal Once nafcillin 2 g Intravenous Q6H pantoprazole 40 mg Intravenous BID polyethylene glycol 17 g Oral Daily sennosides 10 mL Oral Nightly sodium bicarbonate buffer 5 mL Infiltration Once sodium bicarbonate buffer 5 mL Infiltration Once sodium chloride 10 mL Intravenous 2 times per day sodium chloride 1 g Oral TID WC CONTINUOUS INFUSIONS dexmedetomidine in NS 0.3 mcg/kg/hr (10/06/15 0400) OBJECTIVE VITAL SIGNS Temp: [97.3 F (36.3 C)-98.2 F (36.8 C)] 98.2 F (36.8 C) Heart Rate: [100-118] 105 Resp: [28-45] 40 BP: (116-133)/(70-92) 118/71 mmHg Intake/Output Summary (Last 24 hours) at 10/06/15 0500 Last data filed at 10/06/15 0400 Gross per 24 hour Intake 240 ml Output 71 ml Net 169 ml EXAM GEN: somnolent but easily arrousable, oriented to person only NEURO: PERRLA, no facial asymmetry, moves all extremities well GCS: 14 HEENT: sclerae clear, nonicteric, oral mmm, pink, no exudates NECK: supple, trachea midline HEART: RRR, S1/S2, 2/6 systolic murmur RLSB LUNGS: clear b/l, no wheezing, rales or rhonchi, symmetric chest expansion, even/unlabored respirations ABD: soft, nondistended, nontender to palpation, no masses, no hepatosplenomegaly EXTR: trace edema all extremities, clubbing or cyanosis SKIN: diffuse purpuric palpable rash bilateral anterior lower extremities, also hand and fe et. LINES/TUBES: Right UE PICC DATA Recent Labs Lab 10/06/15 0403 10/05/15 0419 10/04/15 0440 10/03/15 0345 10/01/151934 WBC 20.97* 31.87* 14.41* 14.88* < > 16.63* RBC 2.98* 3.99* 3.39* 3.36* < > 3.59* HGB 7.8* 10.6* 9.0* 8.9* < > 9.4* HCT 23.8* 32.3* 27.3* 27.0* < > 29.1* MCV 79.9* 80.9 80.5 80.6 < > 81.1 MCH 26.2* 26.7* 26.6* 26.6* < > 26.2* MCHC 32.7 33.0 33.1 33.0 < > 32.3 RDW 41.1 41.6 40.3 38.1 < > 39.4 PLT 118* 119* 69* 58* < > 43* MPV 8.9 9.7 9.9 10.9 < > 10.1 BANDSABS -- -- 1.01* 1.04* -- 0.67* MORPH -- RBC AND PLT MORPHOLOGY APPEAR NORMAL RBC AND PLT MORPHOLOGY APPEAR NORMAL RBC AN D PLT MORPHOLOGY APPEAR NORMAL < > 1+ < > = values in this interval not displayed. Recent Labs Lab 10/05/15 2259 10/05/15 1720 10/05/15 1238 10/05/15 0419 10/04/15 0440 10/03/15 0345 10/01/151934 NA 119* 118* 117* 122* < > 123* < > 120* < > 120* K -- -- -- 4.6 -- 3.9 -- 4.0 < > 4.5 CL -- -- -- 89* -- 89* -- 85* < > 87* CO2 -- -- -- 20* -- 23 -- 24 < > 22* ANIONGAP -- -- -- 17 -- 15 -- 15 < > 15 GLUF -- -- -- 140* -- 115* -- 91 < > 112* BUN -- -- -- 97* -- 78* -- 65* < > 75* CREATININE -- -- -- 2.9* -- 1.6* -- 1.2 < > 1.9* BCR -- -- -- 33 -- 49 -- 54 < > 39 CA -- -- -- 6.3* -- 6.7* -- 6.5* < > 5.9* ALB -- -- -- 1.4* -- 1.4* -- 1.5* < > 1.5* GLOB -- -- -- -- -- -- -- -- -- 3.6 AG -- -- -- -- -- -- -- -- -- 0.4* PROT -- -- -- 5.1* -- 5.2* -- 5.3* < > 5.1* BILITOT -- -- -- 7.5* -- 2.0* -- 1.8* < > 3.4* ALT -- -- -- 56 -- 63 -- 76* < > 129* AST -- -- -- 63* -- 61* -- 64* < > 192* EGFR -- -- -- 27* -- 54* -- >60 < > 44* PHOS -- -- -- 5.1* -- 3.6 -- 2.9 < > -- MG -- -- -- 3.1* -- 3.0* -- 2.9* < > -- < > = values in this interval not displayed. Recent Labs Lab 10/06/15 0403 10/05/15 1238 10/05/15 0419 INR 1.6 1.5 NO CLOT DETECTED IMAGING Echo Impression 1. LV size, wall thickness and systolic function are normal, with an EF of 60%. 2. The diastolic filling pattern indicates impaired relaxation consistent with mild dysfunc tion (Grade I). 3. The right ventricle is mildly enlarged, but right ventricular systolic function is dorothy l. 4. Moderate tricuspid regurgitation present. 5. There is moderate pulmonary hypertension. The right ventricular systolic pressure (pu lmonary artery systolic pressure), as measured by Doppler, is 50.27mmHg. 6. Moderate sized, mobile vegetation attached to the septal tricuspid valve leaflet. Microbiology data: 09/27 blood cultures obtained from [facility] are growing MSSA from 3 out of 3 bottles CSF culture result has not yet been faxed but per personnel from [place] microbiology, no growth 09/30 blood cultures with no growth to date 09/30 MRSA nasal PCR negative 09/30 tracheal aspirate culture grew 3+ MSSA 10/03 urine culture with no growth PROBLEM LIST Principal Problem: Sepsis (HCC) Active Problems: Hyposmolality and/or hyponatremia MARCEL (acute kidney injury) (HCC) Leucocytosis Thrombocytopenia (HCC) Toxic metabolic encephalopathy Acute respiratory failure with hypoxia (HCC) Heroin abuse Methamphetamine abuse Tobacco abuse Acute septic pulmonary embolism (HCC) Acute infective endocarditis Moderate protein-calorie malnutrition ([facility]) ASSESSMENT & PLAN NEURO: Septic encephalopathy vs hyponatremic encephalopathy Only one lumen PICC, unable to provide 3% saline, however doubt is hyponatremic encephal opathy as patient was admitted with Na 120, currently 119. No further increase in sodium is necessary emergently. No more than 8-10 mEq/d Consider MRI brain r/o brain abscess. Prior MRI on admission negative, but without contr ast CSF w/o growth from [facility] CV: Hemodynamically stable on no vasoactive medication IVC < 2 cm >50% change with sniff, consistent with low CVP (3 mm Hg) Normal saline fluid bolus with minimal increase in Na consistent with some component of hypovolemia PULM: Hypoxemic respiratory failure-stable on minimal O2 via NC Pulmonary septic embolic from MSSA tricuspic valve IE Bedside ultrasound with bilateral pleural effusion, R>L. Left minimal and without echogenic ity suggestive of infectious pleural effusion. Right pleural effusion is moderate with fibri n strands concerning for complicated/infectious pleural effusion. -Pigtail chest tube with purulent drainage. Initial 1 liter fluid. Awaiting pH, glucose and cultures. GI/NUTRITION: Severe malnutrition secondary to infectious process Swallow evaluation Mild Transaminitis with elevated bilirubin- worsening hyperbilirubinemia. From sepsis or medication induced. Hepatitis serologies and HIV negative. Continue to monitor. RENAL/LYTES: MARCEL. Oliguric with worsening renal function. ATN vs C3 staph induced glomeurlonephritis . UA with hematuria. C3 low. C4 wnl. Low C3 likely from MSSA infectious process, but juan carlos l biopsy unlikely to alter management Unlikely AIN. Urine eosinophils negative Hepatitis serologies and HIV negative. Consider HCV RNA Hyponatremia. Not euvolemic. Bedside ultrasound suggestive of hypovolemic hyponatremia. Pending urine Na and urine Osm. High uric acid not consistent with SIAD. Mild improvemen t with IVF consistent with some component of hypovolemia, however the minimal correction als o suggest superimposed SIAD from lung infectious process Cortisol and TSH wnl ID: MSSA tricuspid valve endocarditis. Bedside ultrasound shows tricuspic posterior leaflet involvement on RV inflow view and septal leaflet involvement seen on 4C view. Followed by ID. On nafcillin q6h adjusted for cholestatic picture (likely sepsis) Right pleural effusion on ultrasound highly suggestive of transudative/complicated effus ion (fibrin strands on US). Awaiting pH, glucose, cultures and protein/LDH HEME: Worsening leukocytosis. Platelets stable Anemia-Multifactorial (infection, blood draws) but stable ENDO: Monitor BS MUSC/SKIN: Vasculitis from IE/sepsis PROPHYLAXIS: Stress ulcer prophylaxis: on PPI DVT prophylaxis: Heparin SC VAP bundle: N/A Disposition: ICU Code Status: Full Code *Please bill 45 minutes of critical care time spent evaluating the patient, reviewing the d michael and formulating a plan exclusive of all other procedures. Maegan Rod MD 10/06/2015 5:00 AM Maegan Cobb M D - 10/05/2015 8:27 PM PDT Progress Notes by Maegan Rod MD at 10/05/152026 Author: Maegan Rod MD Service: Auto Dealer Author Type: Physician Filed: 10/05/152220 Date of Service: 10/05/152026 Status: Signed Bisque Brusher: Maegan Rod MD (Physician) [facility] Service: Auto Dealer Progress Note Yang Keyana 30 y.o. Hospital Day: LOS: 4 days Post-Op Day: * No surgery found * Consulting Physicians Treatment Team: Consulting Physician: Chris Swann DO Consulting Physician: Renetta Buck MD Consulting Physician: Gonzalez Bhardwaj MD Surgeon: Blanca Arias MD Consulting Physician: Blanca Arias MD Admitting Provider: Carly Thomas DO SUBJECTIVE Patient Summary: The patient is a 30 y.o. male with significant history of tobacco an d drug abuse using daily heroin and methamphetamine, also on Suboxone. He initially presen latasha to [facility] for progressive weakness, lethargy, and generalized pain (most ly his chest, neck, back, knees, ankles and toes) for the past 7 days. She noticed that his ankles and right knee were swollen but not warm or erythematous. According to his girlfriend , he has been feeling sick and febrile for the past week with poor PO intake. Yesterday, she noticed that he seemed like he was hallucinating and talking to himself. He was very weak t natalie that she had to assist him to get into the car to go the the ED. Exam at OSH was significant for point tenderness at the area of the cervical spine and posi tive Kernig's sign. LP was performed to rule out meningitis. IV antibiotics started, ceftria xone 2 gm and vancomycin [address] head and C-spine x-ray performed, MRI attempted but patient decompensated and was intubated for respiratory failure and airway protection. Significant labs: Na 114 (1435 hrs), BUN 81, Crea 2.48, WBC 19.9, Hb 11.6, Plt 51, Tbili 3. 6, AST 188, ALT 155, LA 1.7. CSF: clear, colorless, WBC 0, RBC 3. Transferred to [facility] for further care. Timeline: Evaluated by Nephrology, acute renal failure attributed to hemodynamics. Evaluated by Dr. Bhardwaj from orthopedics: Does not think patient has ankle septic joint and does not recom mend surgical intervention. Echocardiogram showed moderate size mobile vegetation attached to the septal tricuspid valv e leaflet, moderate tricuspid regurgitation, moderate pulmonary hypertension with mildly enl arged right ventricle. Evaluated by CTS, surgery not recommended On 10/01, extubated. MRI spine w/o evidence abscess On 10/02, he was transferred out of the ICU. 10/04-Transferred to ICU for worsening mental status, drop of Na from 122 to 117 and worseni ng renal function SCHEDULED MEDICATIONS lidocaine buffered 1% 0.5 mL Intradermal Once nafcillin 2 g Intravenous Q6H pantoprazole 40 mg Intravenous BID polyethylene glycol 17 g Oral Daily sennosides 10 mL Oral Nightly sodium bicarbonate buffer 5 mL Infiltration Once sodium chloride 10 mL Intravenous 2 times per day sodium chloride 1 g Oral TID WC CONTINUOUS INFUSIONS OBJECTIVE VITAL SIGNS Temp: [97.3 F (36.3 C)-97.9 F (36.6 C)] 97.3 F (36.3 C) Heart Rate: [103-125] 103 Resp: [22-40] 36 BP: (117-139)/(79-92) 130/79 mmHg Intake/Output Summary (Last 24 hours) at 10/05/152026 Last data filed at 10/05/15 1245 Gross per 24 hour Intake 1109 ml Output 1 ml Net 1108 ml EXAM GEN: asleep but wakes up to voice, oriented to person only NEURO: PERRLA, , no facial asymmetry, moves all extremities well GCS: 14 HEENT: sclerae clear, nonicteric, oral mmm, pink, no exudates NECK: supple, trachea midline HEART: RRR, S1/S2, 2/6 systolic murmur RLSB LUNGS: clear b/l, no wheezing, rales or rhonchi, symmetric chest expansion, even/unlabored respirations ABD: soft, nondistended, nontender to palpation, no masses, no hepatosplenomegaly EXTR: trace edema all extremities, clubbing or cyanosis SKIN: diffuse purpuric palpable rash bilateral anterior lower extremities, also hand and fe et. LINES/TUBES: Right UE PICC DATA Recent Labs Lab 10/05/15 0419 10/04/15 0440 10/03/15 0345 10/01/15 1935 WBC 31.87* 14.41* 14.88* < > 16.63* RBC 3.99* 3.39* 3.36* < > 3.59* HGB 10.6* 9.0* 8.9* < > 9.4* HCT 32.3* 27.3* 27.0* < > 29.1* MCV 80.9 80.5 80.6 < > 81.1 MCH 26.7* 26.6* 26.6* < > 26.2* MCHC 33.0 33.1 33.0 < > 32.3 RDW 41.6 40.3 38.1 < > 39.4 PLT 119* 69* 58* < > 43* MPV 9.7 9.9 10.9 < > 10.1 BANDSABS -- 1.01* 1.04* -- 0.67* MORPH RBC AND PLT MORPHOLOGY APPEAR NORMAL RBC AND PLT MORPHOLOGY APPEAR NORMAL RBC AND PLT MORPHOLOGY APPEAR NORMAL < > 1+ < > = values in this interval not displayed. Recent Labs Lab 10/05/15 1720 10/05/15 1238 10/05/15 0419 10/04/15 0440 10/03/15 0345 10/01/15 1935 NA 118* 117* 122* < > 123* < > 120* < > 120* K -- -- 4.6 -- 3.9 -- 4.0 < > 4.5 CL -- -- 89* -- 89* -- 85* < > 87* CO2 -- -- 20* -- 23 -- 24 < > 22* ANIONGAP -- -- 17 -- 15 -- 15 < > 15 GLUF -- -- 140* -- 115* -- 91 < > 112* BUN -- -- 97* -- 78* -- 65* < > 75* CREATININE -- -- 2.9* -- 1.6* -- 1.2 < > 1.9* BCR -- -- 33 -- 49 -- 54 < > 39 CA -- -- 6.3* -- 6.7* -- 6.5* < > 5.9* ALB -- -- 1.4* -- 1.4* -- 1.5* < > 1.5* GLOB -- -- -- -- -- -- -- -- 3.6 AG -- -- -- -- -- -- -- -- 0.4* PROT -- -- 5.1* -- 5.2* -- 5.3* < > 5.1* BILITOT -- -- 7.5* -- 2.0* -- 1.8* < > 3.4* ALT -- -- 56 -- 63 -- 76* < > 129* AST -- -- 63* -- 61* -- 64* < > 192* EGFR -- -- 27* -- 54* -- >60 < > 44* PHOS -- -- 5.1* -- 3.6 -- 2.9 < > -- MG -- -- 3.1* -- 3.0* -- 2.9* < > -- < > = values in this interval not displayed. Recent Labs Lab 10/05/15 1238 10/05/15 0419 10/04/15 0440 INR 1.5 NO CLOT DETECTED NO CLOT DETECTED IMAGING Echo Impression 1. LV size, wall thickness and systolic function are normal, with an EF of 60%. 2. The diastolic filling pattern indicates impaired relaxation consistent with mild dysfunc tion (Grade I). 3. The right ventricle is mildly enlarged, but right ventricular systolic function is dorothy l. 4. Moderate tricuspid regurgitation present. 5. There is moderate pulmonary hypertension. The right ventricular systolic pressure (pu lmonary artery systolic pressure), as measured by Doppler, is 50.27mmHg. 6. Moderate sized, mobile vegetation attached to the septal tricuspid valve leaflet. Microbiology data: 09/27 blood cultures obtained from [facility] are growing MSSA from 3 out of 3 bottles CSF culture result has not yet been faxed but per personnel from [place] microbiology, no growth 09/30 blood cultures with no growth to date 09/30 MRSA nasal PCR negative 09/30 tracheal aspirate culture grew 3+ MSSA 10/03 urine culture with no growth PROBLEM LIST Principal Problem: Sepsis (HCC) Active Problems: Hyposmolality and/or hyponatremia MARCEL (acute kidney injury) (HCC) Leucocytosis Thrombocytopenia (HCC) Toxic metabolic encephalopathy Acute respiratory failure with hypoxia (HCC) Heroin abuse Methamphetamine abuse Tobacco abuse Acute septic pulmonary embolism (HCC) Acute infective endocarditis Moderate protein-calorie malnutrition (HCC) ASSESSMENT & PLAN NEURO: Septic encephalopathy vs hyponatremic encephalopathy. Increase Na by 5 mEq to r/o hyponatremic encephalopathy as etiology. No further increase in sodium is necessary emergently. No more than 8-10 mEq/d Consider MRI brain r/o brain abscess. Prior MRI on admission negative, but without contr ast CSF w/o growth from [facility] CV: Hemodynamically stable on no vasoactive medication IVC < 2 cm >50% change with sniff, consistent with low CVP (3 mm Hg) Normal saline fluid bolus PULM: Hypoxemic respiratory failure-stable on minimal O2 via NC Septic embolic from MSSA tricuspic valve IE Bedside ultrasound with bilateral pleural effusion, R>L. Left minimal and without echoge nicity suggestive of infectious pleural effusion. Left effusion is moderate with fibrin stra nds concerning for complicated/infectious pleural effusion. Will plan for diagnostic/therape utic pig tail chest tube. GI/NUTRITION: Severe malnutrition secondary to infectious process Mild Transaminitis with elevated bilirubin- worsening hyperbilirubinemia. From sepsis or medication induced. Hepatitis serologies and HIV negative. Continue to monitor. RENAL/LYTES: MARCEL. Oliguric with worsening renal function. ATN vs C3 staph induced glomeurlonephritis . UA with hematuria. C3 low. C4 wnl. Low C3 likely from MSSA infectious process, but juan carlos l biopsy unlikely to alter management Unlikely AIN. Urine eosinophils negative Hepatitis serologies and HIV negative. Consider HCV RNA Hyponatremia. Not euvolemic. Bedside ultrasound suggestive of hypovolemic hyponatremia. Will check Na after liter of NS. If appropriate increase of Na that will suggest correction of hypovolemia. Will monitor q4 hrs. Goal 5 mEq after fluid bolus, no more than 8-10 mEq/24 hrs. Its also possible that he has a mixed picture of hypovolemic hyponatremic that will hollie teau if pt has superimposed SIAD after correction of volume status. ID: MSSA tricuspid valve endocarditis. Bedside ultrasound shows tricuspic posterior leaflet involvement on RV inflow view and septal leaflet involvement seen on 4C view. Followed by ID. On nafcillin q6h adjusted for cholestatic picture (likely sepsis) HEME: Worsening leukocytosis. Platelets stable Anemia-Multifactorial (infection, blood draws) but stable ENDO: Monitor BS MUSC/SKIN: Vasculitis from IE/sepsis PROPHYLAXIS: Stress ulcer prophylaxis: on PPI DVT prophylaxis: Start heparin VAP bundle: N/A Disposition: ICU Code Status: Full Code *Please bill 45 minutes of critical care time spent evaluating the patient, reviewing the d michael and formulating a plan exclusive of all other procedures. Maegan Rod MD 10/05/2015 8:27 PM onversion Transact ion, Provider Unknown - 10/05/2015 8:15 PM PDTFormatting of this note might be different fr om the original. Nurse Progress Note by Kylee Urias RN at 10/05/152014 Author: Kylee Urias RN Service: (none) Author Type: Registered Nurse Filed: 10/05/152033 Date of Service: 10/05/152014 Status: Signed Bisque Brusher: Kylee Urias RN (Registered Nurse) Report given to HAND THERAPIST. No further questions at this time. All belongings sent with patient . Kylee Urias 10/05/2015 onver patti Transaction, Provider Unknown - 10/05/2015 7:40 PM PDT Nurse Progress Note by Kylee Urias RN at 10/05/151939 Author: Kylee Urias RN Service: (none) Author Type: Registered Nurse Filed: 10/05/152029 Date of Service: 10/05/151939 Status: Signed Bisque Brusher: Kylee Urias RN (Registered Nurse) Pt remains lethargic and tachypneic, alert to self and place and sometimes situation. Patsy nues to remain anuric with albarran catheter empty at end of shift. Continues to have occasiona l green thin and thick sputum without nausea. Reported pain at 10/10 for most of shift with minimal relief with IV morphine. No more epistaxis noted since NG tube insertion attempt was done. Vital signs remained stable, with O2 sats at 95-96 % on room air. Kylee Urias 09/17 oWilliam eaton ARNP - 10/05/2015 4:28 PM PDT Progress Notes by YAIR Serrano at 10/05/15 1628 Author: YAIR Serrano Service: (none) Author Type: Advanced Registered Nurse Prac titioner Filed: 10/05/15 1631 Date of Service: 10/05/15 1628 Status: Signed Bisque Brusher: YAIR Serrano (Advanced Registered Nurse Practitioner) [facility] Service: Radiology Progress Note After meeting this patient and using ultrasound to evaluate for pleural effusion pre thorac entesis, the patient is unable to tolerate positioning at this time and is intermittently co nfused. I will reevaluate tomorrow morning to see if he is better able to tolerate position ing for the duration of the procedure. YAIR Serrano 10/05/2015 onversion Transact ion, Provider Unknown - 10/05/2015 3:41 PM PDTFormatting of this note might be different fr om the original. Case Management by SAMEERA Foster at 10/05/15 9580 Author: SAMEERA Foster Service: (none) Author Type: Fuse Assembler Filed: 10/05/15 1544 Date of Service: 10/05/151540 Status: Signed Bisque Brusher: SAMEERA Foster (Fuse Assembler) Cm attended rounds and discussed care plan and dc needs with multidisciplinary team. Pt wills s a history of heroine and methamphetamine abuse and will likely require several weeks of IV AB. CM received a referral from RN to speak with Pt's Significant Other regarding substance abuse treatment for Significant Other so that she can be clean when Pt is ready to discharg e. RAFAEL stated that I could not arrange treatment for SO, but that I could provide some resou rces for her. 1400 CM received a call from Courtney Otero stating that she received a Facebook post fr om Pt's Significant Other, Adriana, requesting help with resources. Per Courtney, SO's pos t stated that she was "going crazy at the hospital and needed to get out". Courtney stated t hat she took this to mean that Pt needed a place to stay "for a good night's sleep" and aske d if the hospital could provide hotel vouchers for her. RAFAEL explained that families usually roomed in with the Pt if they were out of town and that the hospital could not provide housi ng for Pt's SO. RAFAEL asked Courtney who SO was getting meals and other necessities while in [facility], but Courtney did not know. RAFAEL stated I would speak with SO about resources in the area and options for returning home if Pt did not have the resources to stay in the [facility]. CM attempted to meet with SO but was told by the RN that she had left for awhile an d would be back later. CM will try to follow up with SO in AM. Usman Blount MD - 10/05/2015 1:41 PM PDT Progress Notes by Usman Villatoro MD at 10/05/15 1341 Author: Usman Villatoro MD Service: Infectious Disease Author Type: Physician Filed: 10/05/15 1917 Date of Service: 10/05/151340 Status: Signed Bisque Brusher: Usman Villatoro MD (Physician) [facility] Service: Infectious Disease Progress Note Hospital Day: LOS: 4 days Post-Op Day: * No surgery found * SUBJECTIVE Patient Summary: CC: Fever, chest pain and altered mental status From [employer]'s admission note on 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 male with significant history of tobacco and drug abuse using daily heroin and methamphetamine, also on Suboxone. He initially presented to [facility] for progressive weakness, lethargy, and ge neralized pain (mostly his chest, neck, back, knees, ankles and toes) for the past 7 days. H e noticed that his ankles and right knee were swollen but not warm or erythematous. Accordin g to his girlfriend, he has been feeling sick and febrile for the past week with poor PO int elisha. Yesterday, she noticed that he seemed like he was hallucinating and talking to himself. He was very weak today that she had to assist him to get into the car to go the the ED. Exam at OSH was significant for point tenderness at the area of the cervical spine and posi tive Kernig's sign. LP was performed to rule out meningitis. IV antibiotics started, ceftria xone 2 gm and vancomycin [address] head and C-spine x-ray performed, MRI attempted but patient decompensated and was intubated for respiratory failure and airway protection. Significant labs: Na 114 (1435 hrs), BUN 81, Crea 2.48, WBC 19.9, Hb 11.6, Plt 51, Tbili 3. 6, AST 188, ALT 155, LA 1.7. CSF: clear, colorless, WBC 0, RBC 3. Protein 31. Glucose 50. Culture with no growth to d ate Blood cultures are reported to be growing GPCs at [facility] Transferred to [facility] for further care. MRI of brain and spine carried out with limited findi ngs due to non-contrast study. Evaluated by Nephrology, acute renal failure attributed to hemodynamics. Evaluated by Dr. Bhardwaj from orthopedics: Does not think patient has ankle septic joint and does not recomme nd surgical intervention. Echocardiogram showed moderate size mobile vegetation attached to the septal tricuspid valv e leaflet, moderate tricuspid regurgitation, moderate pulmonary hypertension with mildly enl arged right ventricle. Evaluated by CTS, surgery not recommended On 10/01, extubated On 10/02, he was transferred out of the ICU. Events Overnight: Off methadone. He complained of chest pain earlier and has receive d morphine. Less somnolent and more interactive today. Denies cough. No abdominal pain, [place] and vomiting. Denies headache or neck stiffness. No reports of diarrhea. WBC has trended up. GFR has decreased. He is afebrile, has been tachycardic and tachypneic. Chest x-ray showed bilateral pleural effusions with plan for thoracentesis. Scheduled Medications lidocaine buffered 1% 0.5 mL Intradermal Once nafcillin 2 g Intravenous Q4H polyethylene glycol 17 g Oral Daily sennosides 10 mL Oral Nightly sodium bicarbonate buffer 5 mL Infiltration Once sodium chloride 10 mL Intravenous 2 times per day Continuous Infusions sodium chloride (IV) 75 mL/hr at 10/05/15 0942 PRN Medications acetaminophen OR acetaminophen, lip moisturizer, morphine, ondansetron OR ondansetr on, promethazine, sodium chloride OBJECTIVE Vital Signs: BP 133/90 mmHg | Pulse 118 | Temp(Src) 97.3 F (36.3 C) (Oral) | Resp 38 | Ht 1.702 m (5 ' 7") | Wt 70.308 kg (155 lb) | BMI 24.27 kg/m2 | SpO2 99% Temp: [97.3 F (36.3 C)-98.2 F (36.8 C)] 97.3 F (36.3 C) (10/04 1200) BP: (117-139)/(76-92) 133/90 mmHg (10/04 1200) Heart Rate: [111-125] 118 (10/04 1200) Resp: [20-40] 38 (10/04 1200) SpO2: [95 %-99 %] 99 % (10/04 1200) Physical Exam Vital signs have been reviewed Gen.: Drowsy but easily arousable and answers questions. HEENT: Normocephalic. Slightly icteric sclerae. Conjunctival pallor is noted. No nasal muco slime lesions. Dry oral mucosa. Neck is supple with no cervical lymphadenopathy. Some petechia e are noted at the left neck where he had a central line that had been removed Lungs: Decreased at the bases. Coarse breath sounds Cardiovascular: Tachycardic, regular rhythm. Systolic murmur is noted Abdomen: No distention. Soft. No tenderness or palpable masses Skin: Petechial lesions at antecubital area and forearms are worse. He has new petechiae at both hands with dark discoloration at the area of the MCPs and PIPs of both hands but no cl ear-cut joint effusion. He is able to move his hands without difficulty. Petechial lesions at his legs appear better but he has worsening petechiae at both feet. PICC site at right upper extremity is unremarkable Musculoskeletal: No inflamed looking joints Neurologic: Oriented to person and place. Appears to be able to move all extremities. Psychiatric: Cooperative for the clinical evaluation DATA CBC: Lab Results Component Value Date WBC 31.87* 10/05/2015 RBC 3.99* 10/05/2015 HGB 10.6* 10/05/2015 HCT 32.3* 10/05/2015 MCV 80.9 10/05/2015 MCH 26.7* 10/05/2015 MCHC 33.0 10/05/2015 RDW 41.6 10/05/2015 PLT 119* 10/05/2015 MPV 9.7 10/05/2015 DIFFTYPE MANUAL 10/05/2015 WBC: Lab Results Component Value Date WBC 31.87* 10/05/2015 NEUTABSMAN 29.32* 10/05/2015 NEUTROMAN 92 10/05/2015 LYMPHOABS 1.91 10/05/2015 LYMPHOMAN 6 10/05/2015 MONOABSMAN 0.64 10/05/2015 MONOMAN 2 10/05/2015 PLTEST DECREASED 10/03/2015 BANDSPCT 7 10/04/2015 CMP: Lab Results Component Value Date NA 117* 10/05/2015 K 4.6 10/05/2015 CL 89* 10/05/2015 CO2 20* 10/05/2015 ANIONGAP 17 10/05/2015 GLUF 140* 10/05/2015 BUN 97* 10/05/2015 CREATININE 2.9* 10/05/2015 BCR 33 10/05/2015 CA 6.3* 10/05/2015 PROT 5.1* 10/05/2015 ALB 1.4* 10/05/2015 GLOB 3.6 10/01/2015 BILITOT 7.5* 10/05/2015 ALP 95 10/05/2015 AST 63* 10/05/2015 ALT 56 10/05/2015 EGFR 27* 10/05/2015 Urine eosinophils in process Component Latest Ref Rng 10/04/2015 3:32 PM WBC 0 - 5 /hpf 6-10 Blood, UA 0 - 2 /hpf >100 Epithelial Cells 1-5 BACTERIA NONE SEEN NONE SEEN Casts 1-5 CRYSTALS 1+ Urinalysis Comments CULTURE TO FOLLOW 10/03 vancomycin trough 23.9 Microbiology data: 09/27 blood cultures obtained from [facility] are growing MSSA from 3 out of 3 bottles CSF culture result has not yet been faxed but per personnel from [place] microbiology, no growth 09/30 blood cultures with no growth to date 09/30 MRSA nasal PCR negative 09/30 tracheal aspirate culture grew 3+ MSSA 10/03 urine culture with no growth Radiology data: Chest x-ray today shows evolving multiple pulmonary septic emboli with cleaning hernandez and g aseous content. Progressive bilateral pleural effusions are noted Impression 1. Stable positioning of support tubes and lines. 2. Unchanged multifocal opacities with bilateral effusions. Imaging findings may reflect s tigmata of septic pulmonary embolus. X-ray chest 1 view [[id number]] Impression No acute or focal intracranial abnormality . No evidence of infarct or hemorrhage. RADIA Electronically signed by Maegan Maddox MD on Oct 02 2015 4:49AM Referring Provider Line: [phone] ID: [id number] MRI brain without contrast [[id number]] Impression No cord impingement or cord signal abnormality identified. No findings suggesting diskitis or osteomyelitis. Prominence to the epidural space in the upper cervical spine , potentially a prominent epidural venous plexus. Evaluation for abscess is limited without IV contrast. Followup suggested. RADIA Electronically signed by Maegan Maddox MD on Oct 02 2015 5:45AM Referring Provider Line: [phone] ID: [id number] MRI cervical spine without contrast [[id number]] No significant abnormality identified in the thoracic spine . Evaluation for epidural absce ss is limited without IV contrast. Right-sided pleural effusion . Multiple cavitating lung nodules. This is suboptimally image d with this technique. Consider correlation with CT. RADIA Electronically signed by Maegan Maddox MD on Oct 02 2015 5:00AM Referring Provider Line: [phone] ID: [id number] MRI thoracic spine without contrast [[id number]] Impression Degenerative disk disease at L5-S1. No significant central canal stenosis. Other disk space s are unremarkable . Evaluation for epidural abscess is limited without IV contrast. Bilateral posterior paraspinal muscular edema , nonspecific. No fluid collection amenable t o drainage is identified. RADIA Electronically signed by Maegan Maddox MD on Oct 02 2015 5:03AM Referring Provider Line: [phone] ID: [id number] MRI lumbar spine without contrast [[id number]] Impression 1. LV size, wall thickness and systolic function are normal, with an EF of 60%. 2. The diastolic filling pattern indicates impaired relaxation consistent with mild dysfunc tion (Grade I). 3. The right ventricle is mildly enlarged, but right ventricular systolic function is dorothy l. 4. Moderate tricuspid regurgitation present. 5. There is moderate pulmonary hypertension. The right ventricular systolic pressure (pul monary artery systolic pressure), as measured by Doppler, is 50.27mmHg. 6. Moderate sized, mobile vegetation attached to the septal tricuspid valve leaflet. Echo cardiac adult complete [[id number]] PROBLEM LIST Principal Problem: Sepsis (HCC) Active Problems: Hyposmolality and/or hyponatremia MARCEL (acute kidney injury) (HCC) Leucocytosis Thrombocytopenia (HCC) Toxic metabolic encephalopathy Acute respiratory failure with hypoxia (HCC) Heroin abuse Methamphetamine abuse Tobacco abuse Acute septic pulmonary embolism (HCC) Acute infective endocarditis Moderate protein-calorie malnutrition (HCC) ASSESSMENT & PLAN Gram-positive sepsis -Patient has MSSA bacteremia, tricuspid valve endocarditis with septic pulmonary emboli re lated to IV drug use -Neck pain and back pain improved; noncontrast MRI shows no evidence of infection -No evidence of septic arthritis; evaluated by orthopedics -No surgical intervention warranted at this time; evaluated by CT surgery -Blood cultures on admission here have no growth to date. PICC placed. Central line sedrick pina -MRSA nasal PCR negative. Blood cultures from [facility] in tracheal aspirate culture a francis Ugarte have been confirmed to be MSSA. He had been initially on IV vancomycin and ceftriax one and on 10/03 transitioned to IV nafcillin with plan for 6 weeks of IV antibiotic therapy and a supervised setting Encephalopathy, metabolic -Mental status was better prior to transfer from the ICU -Initial CSF analysis at [facility] had been reassuring; no reported growth on CSF cult ure. Request has been made for [facility] to fax the final report -He has no meningeal signs on exam; recommend head CT with ongoing somnolence/lethargy Acute hypoxemic respiratory failure -Initially improved and the patient had been successfully extubated -Known septic pulmonary emboli -He is currently tachypneic with finding of bilateral pleural effusions. Chest CT scan wills s been requested. Plan for thoracentesis. Clinical status is being carefully monitored, with regards to transfer back to ICU AK I -evaluated by nephrology; renal failure attributed to hemodynamics initially - GFR improved on 10/02 with increasing creatinine trend since 10/03; AIN is being evaluate d -He is off IV vancomycin -nafcillin does not require antibiotic dose adjustment abnormal LFTs -Most likely from sepsis and trended down -Acute hepatitis profile negative -noted trend up of bilirubin; will decrease IV nafcillin dose to 2 g q6. Will monitor LFT s Petechial rash -worse at the hands and feet today -platelet count is actually trending up; will continue to monitor -of note, CSF analysis not suggestive of meningococcemia IV drug use -Last use had been the day prior to admission -Patient had been counseled about the adverse effects of IV drugs to his health; advised s topping IV drug use -Not a candidate for home IV antibiotic therapy -HIV rapid screen came back negative; acute retroviral syndrome ruled out, HIV RNA PCR und etectable Case had been discussed with Dr. Li and nursing staff Code Status: Full Code USMAN VILLATORO MD 10/05/2015 uillermo, MD Balta - 10/05/2015 11:59 AM PDT Progress Notes by Balta Li MD at 10/05/15 1159 Author: Balta Li MD Service: (none) Author Type: Physician Filed: 10/05/15 1208 Date of Service: 10/05/15 1159 Status: Signed Bisque Brusher: Balta Li MD (Physician) [facility] Service: Hospitalist Progress Note Hospital Day: LOS: 4 days Consultants: Treatment Team: Consulting Physician: Chris Swann DO Consulting Physician: Renetta Buck MD Consulting Physician: Gonzalez Bhardwaj MD Surgeon: Blanca Arias MD Consulting Physician: Blanca Arias MD Admitting Provider: Carly Thomas DO The first problem in assessment is the principal problem. ICU pt summary: 30 y.o. male with significant history of tobacco and drug abuse using daily heroin and meth amphetamine, also on Suboxone. He initially presented to [facility] for progres sive weakness, lethargy, and generalized pain (mostly his chest, neck, back, knees, ankles a nd toes) for the past 7 days. She noticed that his ankles and right knee were swollen but no t warm or erythematous. According to his girlfriend, he has been feeling sick and febrile fo r the past week with poor PO intake. Yesterday, she noticed that he seemed like he was hallu cinating and talking to himself. He was very weak today that she had to assist him to get in to the car to go the the ED. Exam at OSH was significant for point tenderness at the area of the cervical spine and posi tive Kernig's sign. LP was performed to rule out meningitis. IV antibiotics started, ceftria xone 2 gm and vancomycin [address] head and C-spine x-ray performed, MRI attempted but patient decompensated and was intubated for respiratory failure and airway protection. Significant labs: Na 114 (1435 hrs), BUN 81, Crea 2.48, WBC 19.9, Hb 11.6, Plt 51, Tbili 3. 6, AST 188, ALT 155, LA 1.7. CSF: clear, colorless, WBC 0, RBC 3. Transferred to [facility] for further care. ICU Timeline: 09/30 - Transferred to ICU. LIJ TLC placed for IV access. 10/01 - MRI brain and CTL spine done, NS consulted. No acute indication for interventio n. Extubated. Transferred to medical floor. Patient an echo found to have infective endocarditis of tricuspid valve seen by CT surgery and recommended medical management. Transfer to medical floor. Currently on antibiotics, but has worsening of WBC and kidney function today. ID and nephrology on board also has signifi cant hyponatremia and withdrawal. Was also seen by orthopedic surgery for bilateral ankle in volvement. With low suspicion for septic arthritis. ASSESSMENT/ PLAN 1. Sepsis, infective endocarditis of tricuspid valve, septic pulmonary emboli: MSSA bactere eleni. Discuss with ID. Appreciate help. Today, patient has worsening WBC and bandemia. X-ray chest shows worsening bilateral effusion, right more than left. We'll proceed with right-carlita ed thoracocentesis. On nafcillin for now. Continue with same. No septic arthritis. Seen by orthopedic surgery. 2. Acute renal failure: Initially was thought to be hemodynamic, and had significant improv ement but again started worsening since yesterday. Possible approaches including AIN/antibod y induced or due to global nephritis from infective endocarditis. Discuss with nephrology,. Will start on an as 75 cc per hour. Follow-up urine eosinophils Hyponatremia, possibly hypovolemic. Appreciate help from nephrology. Recommended and is at 75 cc per hour and follow-up sodium every 6. Goal not to let it increased more than 8-10 per day. 3. Heroin and methamphetamine abuse: Patient has some withdrawal but also is having acute p ain in the chest, back, and bilateral knee and ankle joints, most likely due to involvement from endocarditis and inflammation. Was started on methadone 10 3 times a day and hydroxyzin e but had significant sedation, so we'll stop same and only continue with morphine 4 mg IV w hen necessary for now. Patient has generalized anasarca and edema. We'll monitor respiratory status. If needed, wi ll have to consider for IV Lasix along with fluid monitor, sodium. We'll proceed with Albarran catheter for monitoring of I's and O's with worsening renal status. Also patient having some urinary retention. Disposition: Most likely SNF for IV antibiotics Code Status: Full Code Dictation and program proposals coordinator or software, Social Media Simplified, used which may contain error for similar s ounding words even after review. Personal communication requested for any clarification. SUBJECTIVE Events Overnight: *Patient more awake today but having some tachypnea. No major cough, com plaining of pain in chest. Somewhat of the back and both ankles. Denies nausea, vomiting. Ur ine output has been quite low. OBJECTIVE General: Well nourished. Psych: Somewhat lethargic and sleepy. Calm, cooperative. Cardiovascular: Regular rate and rhythm, systolic murmurs, no thrills. Normal PMI. Respiratory: Bilateral rhonchi, breathing mildly labored. Gastrointestinal: Soft, non-tender, non-distended, positive bowel sounds. No HSM. Musculoskeletal: Bilateral diffuse macular rash on both lower and upper extremities mild sw elling of knee and ankle joint with tenderness also swelling of bilateral upper extremities 2 + edema in bilateral lower extremities. No joint swelling. Neck: No JVD, Trachea midline. Neurological: Non focal. Motor grossly intact. PROBLEM LIST Principal Problem: Sepsis (HCC) Active Problems: Hyposmolality and/or hyponatremia MARCEL (acute kidney injury) (HCC) Leucocytosis Thrombocytopenia (HCC) Toxic metabolic encephalopathy Acute respiratory failure with hypoxia (HCC) Heroin abuse Methamphetamine abuse Tobacco abuse Acute septic pulmonary embolism (HCC) Acute infective endocarditis Moderate protein-calorie malnutrition (HCC) [facility] Past Medical History Diagnosis Date Illicit drug use, continuous HOME MEDICATIONS Prior to Admission medications Not on File DATA Vital Signs: BP 117/80 mmHg | Pulse 117 | Temp(Src) 97.4 F (36.3 C) (Oral) | Resp 40 | Ht 1.702 m (5 ' 7") | Wt 70.308 kg (155 lb) | BMI 24.27 kg/m2 | SpO2 97% Filed Vitals: 10/05/15 0814 10/05/15 0938 10/05/15 1020 10/05/15 1025 BP: 125/92 127/80 117/80 Pulse: 117 Temp: 97.4 F (36.3 C) TempSrc: Oral Resp: 28 40 Height: Weight: SpO2: 96% 96% 97% 97% Intake/Output Summary (Last 24 hours) at 10/05/15 1159 Last data filed at 10/05/15 0500 Gross per 24 hour Intake 2117 ml Output 151 ml Net 1966 ml CBC: Lab Results Component Value Date WBC 31.87* 10/05/2015 RBC 3.99* 10/05/2015 HGB 10.6* 10/05/2015 HCT 32.3* 10/05/2015 MCV 80.9 10/05/2015 MCH 26.7* 10/05/2015 MCHC 33.0 10/05/2015 RDW 41.6 10/05/2015 PLT 119* 10/05/2015 MPV 9.7 10/05/2015 DIFFTYPE MANUAL 10/05/2015 CMP: Lab Results Component Value Date NA 122* 10/05/2015 K 4.6 10/05/2015 CL 89* 10/05/2015 CO2 20* 10/05/2015 ANIONGAP 17 10/05/2015 GLUF 140* 10/05/2015 BUN 97* 10/05/2015 CREATININE 2.9* 10/05/2015 BCR 33 10/05/2015 CA 6.3* 10/05/2015 PROT 5.1* 10/05/2015 ALB 1.4* 10/05/2015 GLOB 3.6 10/01/2015 BILITOT 7.5* 10/05/2015 ALP 95 10/05/2015 AST 63* 10/05/2015 ALT 56 10/05/2015 EGFR 27* 10/05/2015 Magnesium: Lab Results Component Value Date MG 3.1* 10/05/2015 Phosphorus: Lab Results Component Value Date PHOS 5.1* 10/05/2015 PT/INR: Lab Results Component Value Date INR NO CLOT DETECTED 10/05/2015 PTT: Lab Results Component Value Date APTT 39* 10/01/2015 [APTT Imaging @IMAGES@ Scheduled Medications lidocaine buffered 1% 0.5 mL Intradermal Once nafcillin 2 g Intravenous Q4H polyethylene glycol 17 g Oral Daily sennosides 10 mL Oral Nightly sodium bicarbonate buffer 5 mL Infiltration Once sodium chloride 10 mL Intravenous 2 times per day Continuous Infusions sodium chloride (IV) 75 mL/hr at 10/05/15 0942 PRN Medications acetaminophen OR acetaminophen, lip moisturizer, morphine, ondansetron OR ondansetr on, promethazine, sodium chloride Balta Li MD 10/05/201511:59 AM onversion Transaction, Provider Unknown - 10/05/2015 11:07 AM PDTFormatting of this note might be different from th e original. Progress Notes by Victorina Arroyo RD at 10/05/15 1107 Author: Victorina Arroyo RD Service: (none) Author Type: Registered Dietitian Filed: 10/05/15 1103 Date of Service: 10/05/151106 Status: Signed Bisque Brusher: Victorina Arroyo RD (Registered Dietitian) 10/05/15 1042 Subjective Timepoint Follow up Pt c/o In to f/u with pt admitted for sepsis, infective endocarditis. Pt with hx of tobacco and drug abuse. Eating minimal amounts per family at bedside. Reported by Patient (and family) Fluid / Beverage Intake Oral Fluids Amount Ad radha Liquid Meal Replacement or Supplement Will send [facility] Renal TID to help optimize kcal/ pro intake. Food Intake Amount of Food Breakfast: pt reports he had fruit, juice, milk. Type of Food / Meals General diet Meal / Snack Pattern On house meals, per flowsheets pt eating 70-75% of meals although only 1 meal per day recorded. Parenteral Nutrition Intake Rate/Solution NS at 75 ml/hr Micronutrient Intake Mineral / Element Intake Chloride;Sodium Food and Nutrition Knowledge Area(s) and Level of Knowledge Encouraged po intake of at least 3 meals daily with >50% int elisha consistently. Social Network Social Support Family at bedside Nutrition-Focused Physical Findings Digestive System (Mouth to Rectum) Pt complained about indigestion. Anthropometrics Weight change No new wt to assess, based on yesterday's wt pt is up 1.2 kg from admit. Per I/O's pt is fluid positive 8.1 L, concerned fluids may be masking loss of LBM. Recommend margot ly wts and and continue to monitor wt trend. Biochemical data, medical tests, and procedures reviewed Biochemical data, medical tests, and procedures reviewed Na (L) 122, BG (H) 140, BUN (H) 97 , Cr (H) 2.9, Phos (H) 5.1, Mg (H) 3.1. Pt on ERP, has renal panel elevated and consistent w ith MARCEL. Recommendations Recommended energy needs Recommend Renal diet. Encourage small freq meals daily. Sending No vasource Renal TID. If po intake fails to improve consider small bore NG tube for feeds to m eet 100% EER. Will continue to follow for further recs as indicated. Nutritional Risk Nutritional risk High Follow up date 10/08/[address] onver patti Transaction, Provider Unknown - 10/05/2015 9:55 AM PDT Therapy Progress Note by Jadyn Ivan PT at 10/05/15 0955 Author: Jadyn Ivan PT Service: (none) Author Type: Physical Therapist Filed: 10/05/15 1119 Date of Service: 10/05/1555 Status: Signed Bisque Brusher: Jadyn Ivan PT (Physical Therapist) 10/05/15 0955 PT Last Visit PT Received On 10/05/15 Reason for Treatment Deconditioning (due to sepsis/drug abuse) Requires PT Follow Up Yes Follow up PT Only? No Assistance Required 1 person Skip Operator Needed No Precautions Other Precautions high fall risk Other Comments Comments Upon PT arrival pt. supine in bed. RN indicating that pt. has been premedicated f or pain and nausea. Pt. agreeable to PT. Pt. very slow moving annd slow to respond/cog pro cessing, though is very agreeable. Pt. is limited by RUE/Rknee pain w/mvmt. Pt. able to per form bed mobility with min-modA w/verbal insruction for technique and extended time for pt. to process instruction. Pt.'s SBP at EOB 117. Time required for PT to obtain FWW. Pt. sat at EOB ~15-20 minutes. PT attempted to obtain standing BP x2 occasions on LUE as pt. verb. dizziness in standing and felt like he was going to pass out. PT unable to obtain reading [id number] as machine indicated indeterminate reaching. Pt. min-SBA for back to bed. Time required ffor pt to vomit what appeared to be bile like substance. Pt. supine in bed w/RUE elevated on pillow for pain relief. Call light within reach. Bed alarm activated. PT edu cating pt. that he is unsafe to amb without assist 2ndary to possible orthostatic hypotensio n. PT urging pt. to sit up more to assist w/BP mgmt. Pt. verb understanding. Cognition Overall Cognitive Status Impaired Bed Mobility Rolling Minimal assist (set up for Rknee bending, instruction for technique, bed rl) Supine to Sit (rolling difficult 2ndary to RUE/Rknee pain ) Sit to Supine (L and R sidelying to sit to rest ) Sidelying to Sit Minimal assist (1 LE OOB);Mod assist (BLEs OOB or trunk to upright) (guiding assist for BLE"s off of EOB, v.i. for technique ) Sit to Sidelying Minimal assist (1 LE into bed);Standby assist (pt. able to follow verbal instruction well, slow to respond) Transfers Sit to/from Stand Minimal assist (steadying/contact guard);Moderate assist (to arise OR low er) (elevated bed height) Mobility Weight Bearing Status WBAT RLE;WBAT LLE Balance Balance Yes Static Sitting Balance Static Sitting-Balance Support Right upper extremity support;Left upper extremity support;F eet supported Static Sitting-Level of Assistance Minimal assist;Standby assist (initial trunkal sway all directions, able to stabilize w/v.i) Static Sitting-Comment/Duration time required for pt. to stabilize given nausea Static Standing Balance Static Standing-Balance Support Right upper extremity support;Left upper extremity support Static Standing-Level of Assistance Minimal assist;Moderate assist (occasional leaning forward, trunkal sway) Static Standing-Comment/Duration 2-3bouts of 2-3minutes of standing to allow for BP testing (sympt. of orthostatic hypot., dizzy, indeterminate readingx2) Plan Treatment/Interventions Continue per Primary PT POC Progress Slow progress, medical status limitations;Slow progress, decreased activity tolera nce;Slow progress, cognitive deficits Recommendation Recommendations (patient might benefit from substance abuse rehab program) Barriers to Discharge Cognitive Deficits Impacting Functional [place];Physical Deficit s Impacting Functional [place];Self-care Deficits Impacting Functional [place];Equ ipment Needs (see comment) (substance abuse history-requested placement in rehab drugabu) Recommendation Comments patient requested placement in substance abuse program/rehab onver patti Transaction, Provider Unknown - 10/05/2015 8:02 AM PDT Therapy Progress Note by GISELA Boyd at 10/05/15 0802 Author: GISELA Boyd Service: (none) Author Type: Occupational Therapist Filed: 10/05/15 1136 Date of Service: 10/05/15801 Status: Signed Bisque Brusher: GISELA Boyd (Occupational Therapist) 10/05/15 08 Precautions Other Precautions fall risk Home Environment Type of Home Home one story Home Exterior Layout 4-6 steps (5 steps per pt report) Home Interior Layout Lives on main level with bedroom/bathroom Bathroom Shower/Tub Tub/shower unit Bathroom Toilet Standard Bathroom Equipment Other (Comment) (none) Bathroom Accessibility Accessible via walker Home Equipment None Additional Comments Pt not consistent with giving home setup unsure of accuracy Prior Function Level of [place] Independent with functional mobility;Independent with ADLs;Independe nt with IADLs;Driving in community (Pt reports not driving ) Lives With Significant other Receives Help From Family;Friend(s) ADL Assistance Independent Home ADL's Independent Employment Unemployed Leisure Hobbies-yes (Comment) (skateboarding, playing the guitar) Comments Per Pt report ADL Grooming Assistance Minimal assist Additional Comments Pt willing to participate in am OT session with OT and OTS. Pt aware of OTS role in session. Pt in bed with head elevated. Initial eval was conducted. During eval pt became nauseous and vomited. RN was notified. Pt then proceeded to get a bloody nose. Pt stating the he is in pain. Pt willing to answer questions but when asked limited participati on and needing max redirection to questions. Pt would further benefit from skilled OT servic es to address functional transfers, ADL's, fall prevention, pt/caregiver education. Pt was s itting up in bed at end of session with call light within reach at end of session. Vision-Basic Assessment Current Vision No visual deficits (Pt reports no current issues w/ vision) Cognition Overall Cognitive Status Impaired Orientation Level Oriented (to month, ) Comments pt needing to be redirected to questions Sensation Light Touch No apparent deficits RUE Assessment RUE Assessment X (NT due to pt's pain at this time) LUE Assessment LUE Assessment X (NT due to pt's pain at this time) Hand Function Gross Grasp Impaired Impaired Gross Grasp Maintain hold with non-dominant hand;Maintain hold with dominant hand Coordination Impaired Assessment Assessment Decreased ADL status;Decreased UE ROM;Decreased UE strength;Decreased cognition; Decreased endurance;Decreased fine motor control;Decreased self-care trans;Decreased high-le jazlyn ADLs Prognosis Good Goal Formulation Patient;Family ADL Goals Pt Will Perform Grooming With max assist;In chair;At edge of bed Pt Will Perform LE Dressing With max assist;With mod assist;In chair;At edge of bed Functional Transfer Goals Pt Will Perform All Functional Transfers With mod assist Plan Treatment Interventions ADL retraining;IADL retraining;Functional transfer training;Functio nal dynamic activities;AROM;UE strengthening;PROM;Therapeutic exercises;Endurance training;C ognitive reorientation;Patient/Family training;Equipment eval/education;Fine motor coordinat ion activities;Compensatory technique education OT Frequency QD;5x/wk Requires OT Follow Up Awaiting tx order Recommendation Recommendation (may benefit from the substance abuse program) Equipment Recommended Other (comment) (defer at this time) OT Ready for Discharge Yes Education Completed: Education Topic: OT role, ADLs at bed level Completed with: Patient Completed by: Verbal Education, Demonstration Response to Education: Stated Understanding, Returned Demonstration, Reinforcement John butts for Education Understanding Occupational Therapy Plan: Initiate OT POC Continue OT treatment per POC Further address ADLs The following recommendations are made for d/c planning at this time: May benefit from substance abuse program Barriers to d/c at this time include: Cognitive deficits impacting functional independence Physical deficits impacting functional independence Self-care deficits impacting functional independence OT/S, SAUL CROWLEY present and participating as directed per OTR this date in care of the pa laura. The patient and patient's caregiver was aware and in agreement with the student's par ticipation in the care provided on this date. I have read and reviewed this annotation of the therapy session completed on 10/05/2015 as documented by the OT(A)/S. I am in agreement with this annotation and the billing of this p atient for the date of services provided on 10/05/2015 . I was present and involved in the ca re of this patient throughout the entirety of the session. SUZY MOONEY, MOTR/L, CSRS 10/05/2015 Adarsh Mackey MD - 10/05/2015 7:34 AM PDT Progress Notes by Adarsh Crews MD at 10/05/1534 Author: Adarsh Crews MD Service: Nephrology Author Type: Physician Filed: 10/05/15 0855 Date of Service: 10/05/1534 Status: Signed Bisque Brusher: Adarsh Crews MD (Physician) [facility] Service: Nephrology Progress Note Hospital Day: LOS: 4 days Post-Op Day: * No surgery found * SUBJECTIVE Patient Summary: Reviewed medical records expensively. The patient is a 30 y.o. male with significant history of tobacco and drug abuse using daily heroin and methamphetamine, also on Suboxone. He initially presented to [facility] for progressive weaknes s, lethargy, and generalized pain for the past 7 days. He noticed that his ankles and right knee were swollen but not warm or erythematous. According to his girlfriend, he has been fee ling sick and febrile for the past week with poor oral intake. LP was performed to rule out meningitis. IV antibiotics started, ceftriaxone 2 gm and vancomycin [address] head and C-spine x-ray performed, patient decompensated and was intubated for respiratory failure and airway protection and admitted to the ICU. Significant labs on initial presentation : Na 114 (1435 hrs), BUN 81, Crea 2.48, Over next 12-24 hrs, his sodium abruptly improved to a peak of126 by 6 AM on 10/01, so c ounter measures were started to avoid over correction. Patient received DDAVP X2 X 2 MCG AT 4 AND 8 AM ON 10/01 and is on D5W AT 200 ML/HR. He has never been hospitalized because of low sodium. He has never been symptomatic because of low sodium. There are no herbal preparation intake; he does not have hx of liver cirrhos is. He does not have hx of CHF, hypothyroidism or adrenal insufficiency.There is no hx of ch ronic diarrhea and no N/V. Events Overnight: His mental status did improve per the nurse. However, he has slurre d speech and very slow to react. He is also tachypneic. Localizes pain. Answers questions ap propriately. Reports cough and epigastric pain with cough. Also reports dyspepsia over the n ight. Reviewed labs and medical records. Scheduled Medications lidocaine buffered 1% 0.5 mL Intradermal Once nafcillin 2 g Intravenous Q4H polyethylene glycol 17 g Oral Daily sennosides 10 mL Oral Nightly sodium chloride 10 mL Intravenous 2 times per day Continuous Infusions PRN Medications acetaminophen OR acetaminophen, lip moisturizer, magnesium sulfate OR magnesium sul fate OR magnesium sulfate, morphine, ondansetron OR ondansetron, phosphorus OR s odium phosphate IVPB 15 mmol OR sodium phosphate IVPB 30 mmol, potassium OR potassiu m OR potassium OR potassium chloride OR potassium chloride OR potassium chlo ride, sodium chloride OBJECTIVE Vital Signs: BP 120/79 mmHg | Pulse 125 | Temp(Src) 97.6 F (36.4 C) (Oral) | Resp 22 | Ht 1.702 m (5 ' 7") | Wt 70.308 kg (155 lb) | BMI 24.27 kg/m2 | SpO2 96% Temp: [97.6 F (36.4 C)-98.2 F (36.8 C)] 97.6 F (36.4 C) (10/04 301) BP: (120-139)/(76-87) 120/79 mmHg (10/04 301) Heart Rate: [84-125] 125 (10/04 301) Resp: [20-22] 22 (10/04 301) SpO2: [95 %-99 %] 96 % (10/04 301) Intake/Output Summary (Last 24 hours) at 10/05/15 0734 Last data filed at 10/05/15 0500 Gross per 24 hour Intake 2117 ml Output 151 ml Net 1966 ml Physical Exam Constitutional: He is oriented to person, place, and time. He appears well-developed and we ll-nourished. HENT: Head: Normocephalic and atraumatic. Mouth/Throat: Oropharynx is clear and moist. No oropharyngeal exudate. Eyes: Conjunctivae are normal. No scleral icterus. Neck: Neck supple. No JVD present. No thyromegaly present. Cardiovascular: Normal rate, regular rhythm, normal heart sounds and intact distal pulses. Exam reveals no gallop and no friction rub. No murmur heard. Pulmonary/Chest: Breath sounds normal. He is in respiratory distress (tachypneic, breathing at almost 36/min). He has no wheezes. He has no rales. Abdomina/Gl: Bowel sounds are normal. He exhibits no mass. There is no guarding. Firm, non tender. Musculoskeletal: He exhibits edema (mild). He exhibits no tenderness. Lymphadenopathy: He has no cervical adenopathy. Neurological: He is alert and oriented to person, place, and time. Slurred speech. Slow to react. Skin: Skin is warm and dry. No rash noted. Nursing note and vitals reviewed. DATA CBC: Lab Results Component Value Date WBC 31.87* 10/05/2015 RBC 3.99* 10/05/2015 HGB 10.6* 10/05/2015 HCT 32.3* 10/05/2015 MCV 80.9 10/05/2015 MCH 26.7* 10/05/2015 MCHC 33.0 10/05/2015 RDW 41.6 10/05/2015 PLT 119* 10/05/2015 MPV 9.7 10/05/2015 DIFFTYPE MANUAL 10/05/2015 WBC: Lab Results Component Value Date WBC 31.87* 10/05/2015 NEUTABSMAN 29.32* 10/05/2015 NEUTROMAN 92 10/05/2015 LYMPHOABS 1.91 10/05/2015 LYMPHOMAN 6 10/05/2015 MONOABSMAN 0.64 10/05/2015 MONOMAN 2 10/05/2015 PLTEST DECREASED 10/03/2015 BANDSPCT 7 10/04/2015 CMP: Lab Results Component Value Date NA 122* 10/05/2015 K 4.6 10/05/2015 CL 89* 10/05/2015 CO2 20* 10/05/2015 ANIONGAP 17 10/05/2015 GLUF 140* 10/05/2015 BUN 97* 10/05/2015 CREATININE 2.9* 10/05/2015 BCR 33 10/05/2015 CA 6.3* 10/05/2015 PROT 5.1* 10/05/2015 ALB 1.4* 10/05/2015 GLOB 3.6 10/01/2015 BILITOT 7.5* 10/05/2015 ALP 95 10/05/2015 AST 63* 10/05/2015 ALT 56 10/05/2015 EGFR 27* 10/05/2015 Magnesium: Lab Results Component Value Date MG 3.1* 10/05/2015 Phosphorus: Lab Results Component Value Date PHOS 5.1* 10/05/2015 PT/INR: Lab Results Component Value Date INR NO CLOT DETECTED 10/05/2015 PTT: Lab Results Component Value Date APTT 39* 10/01/2015 TSH: Lab Results Component Value Date TSH 0.75 10/03/2015 Medical Record Review: Reviewed extensively for this encounter. PROBLEM LIST Principal Problem: Sepsis (HCC) Active Problems: Hyposmolality and/or hyponatremia MARCEL (acute kidney injury) (HCC) Leucocytosis Thrombocytopenia (HCC) Toxic metabolic encephalopathy Acute respiratory failure with hypoxia (HCC) Heroin abuse Methamphetamine abuse Tobacco abuse Acute septic pulmonary embolism (HCC) Acute infective endocarditis Moderate protein-calorie malnutrition (HCC) Patient diagnosed with: Protein-Calorie Malnutrition Type: (!) Moderate, and I agree with t he following nutritional recommendations: Recommendations Recommended energy needs: Initiate trickle feeds of Peptamen AF at 15 mL/hr. Once tolerance is established and advancement is indicated, will f/u to provide further TF goals to ensure kcal/protein requirements are met. ASSESSMENT & PLAN HYPONATREMIA; the etiology is likely due to methamphetamine use and worsened by nausea and poor po intake lately. He expectedly over-corrected as he was fluid rescucitated. Note stall ing and drop in serum Na without correction. Will suggest caution saline replacement with some volume. Mild tissue edema noted is likely resulting from significant hypoalbuminemia and possible third space volume loss. Continue to monitor sodium q 4 The plan is not to over correct more than 8 -10 meq/ 24 hrs. MARCEL/ ARF: note continued worsening azotemia. Initial MARCEL probably hemodynamic in nature.H owever, now that Cr worsened,consideration of other etiologies including post infectious G N, AIN and or Vancomycin associated nephrotoxicity. Note low C3; C4 and ASO are normal; no u rine eosinophils report available and UA reveals marked hematuria without RBC casts. Note si gnificant hypoalbuminemia and possible third space volume loss. Patient also on Vancomycin w ith elevated levels as of yesterday. Get urine chloride, Na+ and urine eosinophils. Start NS at 75ml/hr. Continue to monitor Na+ q4hrly. BP control: BP control Is acceptable Anemia mangement: Hb is above 8; there is no indication for epogen or transfusion. Thrombocytopenia MSSA bacteremia, tricuspid valve endocarditis with septic pulmonary emboli related to IV dr ug use-switched to nafcillin today. Disposition: Possible to a care facility for continued antibiotic treatment. Code Status: Full Code ADARSH CREWS MD 10/05/2015 onversion Transac tion, Provider Unknown - 10/05/2015 6:56 AM PDTFormatting of this note might be different f rom the original. Nurse Progress Note by Kylee Ndiaye RN at 10/05/1556 Author: Kylee Ndiaye RN Service: (none) Author Type: Registered Nurse Filed: 10/05/15 0723 Date of Service: 10/05/1556 Status: Addendum Bisque Brusher: Kylee Ndiaye RN (Registered Nurse) Related Notes: Original Note by Kylee Ndiaye RN (Registered Nurse) filed at 6 0703 Pt resting in bed, significant other at bedside about half the night. Slept a few hrs off a nd on. VSS, pt oxygenating well on RA, pt does present with SOB with exertion and at rest. Pt c/o pain 9-10/10, with little relief reported from MS- given X3. All medications taken w ithout difficulty. Pt's WBC this morning is 31.87, sodium 122. Pt's PICC line dressing scott ed by lead nurse d/t some bleeding noted to area. Pt is more agitated now that methadone is DC, Kylee Ndiaye RN onver patti Transaction, Provider Unknown - 10/04/2015 8:01 PM PDT Nurse Progress Note by Carly Shannon RN at 10/04/152000 Author: Carly Shannon RN Service: (none) Author Type: Registered Nurse Filed: 10/04/152008 Date of Service: 10/04/152000 Status: Signed Bisque Brusher: Carly Shannon RN (Registered Nurse) Pt less lethargic than yesterday. No pain medication was given during shift. IJ was remov ed and pt tolerated well. Na level at end of shift was 124. Pt still tachycardic, and occa sionally tachypneic. Otherwise, no acute changes from previous assessment. Carly hussein RN Renetta Alford MD - 10/04/2015 11:30 AM PDTFormatting of this note might be different from th e original. Progress Notes by Renetta Buck MD at 10/04/15 1130 Author: Renetta Buck MD Service: Nephrology Author Type: Physician Filed: 10/04/151136 Date of Service: 10/04/151129 Status: Signed Bisque Brusher: Renetta Buck MD (Physician) [facility] Followup -Nephrology I saw Mr. Yang Ridley today for follow-up. he is interviewed, examined and meds/ labs/ im aging have been reviewed. The patient is a 30 y.o. male with significant history of tobacco and drug abuse using jennifer y heroin and methamphetamine, also on Suboxone. He initially presented to [facility] for progressive weakness, lethargy, and generalized pain for the past 7 days. He no ticed that his ankles and right knee were swollen but not warm or erythematous. According to his girlfriend, he has been feeling sick and febrile for the past week with poor PO intake. LP was performed to rule out meningitis. IV antibiotics started, ceftriaxone 2 gm and van comycin [address] head and C-spine x-ray performed, patient decompensated and was intub ated for respiratory failure and airway protection. Significant labs ON initial presentation : Na 114 (1435 hrs), BUN 81, Crea 2.48, Over next 12-24 hrs, his sodium abruptly improved to a peak of 126 by 6 AM on 10/01 , so counter measures were started to avoid over correction. Patient received DDAVP X2 X 2 MCG AT 4 AND 8 AM ON 10/01 and is on D5W AT 200 ML/HR . he has never been hospitalized because of low sodium. HE has never been symptomatic because of low sodium. there are no herbal preparation intake; he does not have hx of liver cirrhos is. he does not have hx of CHF, hypothyroidism or adrenal insufficiency.There is no hx of ch ronic diarrhea and no N/V. Review of Systems: The patient reports THROAT/ NECK PAIN. . He has EXERTIONAL dyspnea. REPORTS FATIGUE Physical Exam Blood pressure 131/82, pulse 110, temperature 98 F (36.7 C), temperature source Oral, r ramón. rate 20, height 1.702 m (5' 7"), weight 70.308 kg (155 lb), SpO2 99 %. Intake/Output Summary (Last 24 hours) at 10/04/15 1130 Last data filed at 10/04/15 0443 Gross per 24 hour Intake 2175 ml Output 960 ml Net 1215 ml Constitutional: pt appears without distress. HENT: Normocephalic and atraumatic. Oropharynx is clear and moist. Neck: No JVD present. No tracheal deviation present. No rigidity Cardiovascular: Normal rate. Exam reveals no gallop and no friction rub. Pulmonary/Chest: No stridor. No respiratory distress. Pt has no wheezes, no rales. Abdominal: There is no tenderness and no rebound or guarding. Musculoskeletal: pt exhibits Trace to _+1 edema in lower extremities Neurological: pt has mental slowing but is alert. He is oriented to person, place, and ti me ( month, year). There is no asterixis. No facial asymmetry. Skin: Skin is warm and dry. petechial lesions noted on his legs , slightly better. Laboratory data Labs have been reviewed since admission. Most recent pertinent labs from 10/04/2015 Lab Results Component Value Date BUN 78* 10/04/2015 CREATININE 1.6* 10/04/2015 EGFR 54* 10/04/2015 NA 123* 10/04/2015 K 3.9 10/04/2015 CL 89* 10/04/2015 CO2 23 10/04/2015 CA 6.7* 10/04/2015 PHOS 3.6 10/04/2015 MG 3.0* 10/04/2015 ALB 1.4* 10/04/2015 WBC 14.41* 10/04/2015 HGB 9.0* 10/04/2015 No results found for: COLORU, CLARITYU, MEROPENEM, LEUKOCYTESUR, NITRITE, UROBILINOGEN, FRED R, BLOODU, KETONES, BILIRUBINUR, GLUCOSEU, WBCU, RBCU, BACTERIA, UCASTS Component Value Date/Time CREATININE 1.6* 10/04/2015 0440 CREATININE 1.2 10/03/2015 0345 CREATININE 1.5* 10/02/2015 0330 CREATININE 1.9* 10/01/2015 1935 TSH NORMAL ACTH stim test is normal Urine osm/ serum osm pending Assessment/Plan: HYPONATREMIA; the etiology is likely due to methamphetamine use and worsened by nausea and poor po intake lately. He expectedly over-corrected as he was fluid rescucitated. due to edema, will d/c IVF .Continue to monitor sodium q 4 The plan is not to over correct more than 8 -10 meq/ 24 hrs . MARCEL/ ARF :interstingly worsened today vs yesterday . Initially this was probably hemod ynamic in nature However, now that Cr worsened, consideration of other etiologies need to be kept in mind including post infectious GN and AIN. CHECK C3, C4, ASO, urin eos, and ua BP control: BP control Is acceptable Anemia mangement: Hb is above 8; there is no indication for epogen or transfusion. 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 Dr Crews will assume care at 8 am on 10/04 RENETTA BUCK MD FACP, FASN 10/04/2015 Oliva Case MD - 10/04/2015 9:23 AM PDTFormatting of this note might be different from the kriana l. Progress Notes by Usman Villatoro MD at 10/04/15 0970 Author: Usman Villatoro MD Service: Infectious Disease Author Type: Physician Filed: 10/04/15 1501 Date of Service: 10/04/15922 Status: Signed Bisque Brusher: Usman Villatoro MD (Physician) [facility] Service: Infectious Disease Progress Note Hospital Day: LOS: 3 days Post-Op Day: * No surgery found * SUBJECTIVE Patient Summary: CC: Fever, chest pain and altered mental status From [facility] admission note on 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 male with significant history of tobacco and drug abuse using daily heroin and methamphetamine, also on Suboxone. He initially presented to [facility] for progressive weakness, lethargy, and ge neralized pain (mostly his chest, neck, back, knees, ankles and toes) for the past 7 days. H e noticed that his ankles and right knee were swollen but not warm or erythematous. Accordin g to his girlfriend, he has been feeling sick and febrile for the past week with poor PO int elisha. Yesterday, she noticed that he seemed like he was hallucinating and talking to himself. He was very weak today that she had to assist him to get into the car to go the the ED. Exam at OSH was significant for point tenderness at the area of the cervical spine and posi tive Kernig's sign. LP was performed to rule out meningitis. IV antibiotics started, ceftria xone 2 gm and vancomycin [address] head and C-spine x-ray performed, MRI attempted but patient decompensated and was intubated for respiratory failure and airway protection. Significant labs: Na 114 (1435 hrs), BUN 81, Crea 2.48, WBC 19.9, Hb 11.6, Plt 51, Tbili 3. 6, AST 188, ALT 155, LA 1.7. CSF: clear, colorless, WBC 0, RBC 3. Protein 31. Glucose 50. Culture with no growth to d ate Blood cultures are reported to be growing GPCs at [facility] Transferred to [facility] for further care. MRI of brain and spine carried out with limited findi ngs due to non-contrast study. Evaluated by Nephrology, acute renal failure attributed to hemodynamics. Evaluated by Dr. Bhardwaj from orthopedics: Does not think patient has ankle septic joint and does not recomme nd surgical intervention. Echocardiogram showed moderate size mobile vegetation attached to the septal tricuspid valv e leaflet, moderate tricuspid regurgitation, moderate pulmonary hypertension with mildly enl arged right ventricle. Evaluated by CTS, surgery not recommended On 10/01, extubated Events Overnight: He was transferred out of the ICU yesterday. He has remained afebri le. He has been intermittently tachycardic. He is currently somnolent; patient was placed on methadone. Scheduled Medications cefTRIAXone 2 g Intravenous Q12H hydrOXYzine 10 mg Oral TID methadone 10 mg Oral 3 times per day polyethylene glycol 17 g Oral Daily sennosides 10 mL Oral Nightly vancomycin 17 mg/kg Intravenous Q24H Continuous Infusions sodium chloride (IV) 125 mL/hr at 10/04/15 0907 PRN Medications acetaminophen OR acetaminophen, lip moisturizer, magnesium sulfate OR magnesium sul fate OR magnesium sulfate, morphine, ondansetron OR ondansetron, phosphorus OR s odium phosphate IVPB 15 mmol OR sodium phosphate IVPB 30 mmol, potassium OR potassiu m OR potassium OR potassium chloride OR potassium chloride OR potassium chlo ride OBJECTIVE Vital Signs: BP 123/78 mmHg | Pulse 84 | Temp(Src) 97.7 F (36.5 C) (Oral) | Resp 20 | Ht 1.702 m (5' 7") | Wt 70.308 kg (155 lb) | BMI 24.27 kg/m2 | SpO2 97% Temp: [97.4 F (36.3 C)-98 F (36.7 C)] 98 F (36.7 C) (10/03 1056) BP: (119-134)/(69-82) 131/82 mmHg (10/03 1056) Heart Rate: [84-110] 110 (10/03 1056) Resp: [20-30] 20 (10/03 1056) SpO2: [95 %-99 %] 99 % (10/03 1056) Weight: [70.308 kg (155 lb)] 70.308 kg (155 lb) (10/03 358) Physical Exam Vital signs have been reviewed Gen.: Not in distress. Somnolent. Briefly opens eyes to verbal and tactile stimuli. HEENT: Normocephalic. Anicteric sclerae. No conjunctival lesions. No nasal mucosal lesions. No oral thrush. Neck is supple with no cervical lymphadenopathy. Left IJ central line is un remarkable Lungs: No adventitious breath sounds; decreased at the bases Cardiovascular: Normal rate. Regular rhythm. Positive murmur Abdomen:No distention. Soft. No tenderness or palpable masses Petechial rash at antecubital area. Petechial rash at both legs/proximal feet improving. No drug rash Musculoskeletal: No inflamed looking joints Neurologic: Somnolent. Appears to be able to move all extremities DATA CBC: Lab Results Component Value Date WBC 14.41* 10/04/2015 RBC 3.39* 10/04/2015 HGB 9.0* 10/04/2015 HCT 27.3* 10/04/2015 MCV 80.5 10/04/2015 MCH 26.6* 10/04/2015 MCHC 33.1 10/04/2015 RDW 40.3 10/04/2015 PLT 69* 10/04/2015 MPV 9.9 10/04/2015 DIFFTYPE MANUAL 10/04/2015 WBC: Lab Results Component Value Date WBC 14.41* 10/04/2015 NEUTABSMAN 12.97* 10/04/2015 NEUTROMAN 90 10/04/2015 LYMPHOABS 0.43* 10/04/2015 LYMPHOMAN 3 10/04/2015 MONOABSMAN 0.30 10/03/2015 MONOMAN 2 10/03/2015 PLTEST DECREASED 10/03/2015 BANDSPCT 7 10/04/2015 CMP: Lab Results Component Value Date NA 123* 10/04/2015 K 3.9 10/04/2015 CL 89* 10/04/2015 CO2 23 10/04/2015 ANIONGAP 15 10/04/2015 GLUF 115* 10/04/2015 BUN 78* 10/04/2015 CREATININE 1.6* 10/04/2015 BCR 49 10/04/2015 CA 6.7* 10/04/2015 PROT 5.2* 10/04/2015 ALB 1.4* 10/04/2015 GLOB 3.6 10/01/2015 BILITOT 2.0* 10/04/2015 ALP 105 10/04/2015 AST 61* 10/04/2015 ALT 63 10/04/2015 EGFR 54* 10/04/2015 No results found for: CRP No results found for: ESR Microbiology data: 09/27 load [address] obtained from [facility] are growing MSSA from 3 out of 3 bottles 09/30 blood cultures with no growth to date 09/30 MRSA nasal PCR negative Radiology data: Impression 1. Stable positioning of support tubes and lines. 2. Unchanged multifocal opacities with bilateral effusions. Imaging findings may reflect s tigmata of septic pulmonary embolus. X-ray chest 1 view [[id number]] Impression No acute or focal intracranial abnormality . No evidence of infarct or hemorrhage. RADIA Electronically signed by Maegan Maddox MD on Oct 02 2015 4:49AM Referring Provider Line: [phone] ID: [id number] MRI brain without contrast [[id number]] Impression No cord impingement or cord signal abnormality identified. No findings suggesting diskitis or osteomyelitis. Prominence to the epidural space in the upper cervical spine , potentially a prominent epidural venous plexus. Evaluation for abscess is limited without IV contrast. Followup suggested. RADIErnesto Electronically signed by Maegan Maddox MD on Oct 02 2015 5:45AM Referring Provider Line: [phone] ID: [id number] MRI cervical spine without contrast [[id number]] No significant abnormality identified in the thoracic spine . Evaluation for epidural absce ss is limited without IV contrast. Right-sided pleural effusion . Multiple cavitating lung nodules. This is suboptimally image d with this technique. Consider correlation with CT. RADIErnesto Electronically signed by Maegan Maddox MD on Oct 02 2015 5:00AM Referring Provider Line: [phone] ID: [id number] MRI thoracic spine without contrast [[id number]] Impression Degenerative disk disease at L5-S1. No significant central canal stenosis. Other disk space s are unremarkable . Evaluation for epidural abscess is limited without IV contrast. Bilateral posterior paraspinal muscular edema , nonspecific. No fluid collection amenable t o drainage is identified. RADIErnesto Electronically signed by Maegan Maddox MD on Oct 02 2015 5:03AM Referring Provider Line: [phone] ID: [id number] MRI lumbar spine without contrast [[id number]] Impression 1. LV size, wall thickness and systolic function are normal, with an EF of 60%. 2. The diastolic filling pattern indicates impaired relaxation consistent with mild dysfunc tion (Grade I). 3. The right ventricle is mildly enlarged, but right ventricular systolic function is dorothy l. 4. Moderate tricuspid regurgitation present. 5. There is moderate pulmonary hypertension. The right ventricular systolic pressure (pul monary artery systolic pressure), as measured by Doppler, is 50.27mmHg. 6. Moderate sized, mobile vegetation attached to the septal tricuspid valve leaflet. 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 PICC placement requested with re moval of central line afterwards -Currently on IV vancomycin/ceftriaxone; MRSA nasal PCR negative. Blood cultures from [facility] and tracheal aspirate culture here are confirmed to be MSSA, d/c IV vanco and ceft riaxone. Will put patient on IV nafcillin, with plan for 6 weeks of IV antibiotic treatment in a supervised setting Encephalopathy, metabolic -Mental status was better yesterday; see above -Initial CSF analysis at [facility] had been reassuring; no reported growth on CSF cult ure to date Acute hypoxemic respiratory failure -resolved; Stable status post extubation -Known septic pulmonary emboli AK I -evaluated by nephrology; renal failure attributed to hemodynamics - GFR 62 -nafcillin does not require antibiotic dose adjustment -vancomycin dosing per GFR based on pharmacy protocol abnormal LFTs -Most likely from sepsis and trended down -Acute hepatitis profile negative -monitor while on IV nafcillin IV drug use -Last use had been the day prior to admission -Patient had been counseled about the adverse effects of IV drugs to his health; advised s topping IV drug use -Not a candidate for home IV antibiotic therapy -HIV rapid screen came back negative; ruling out for acute retroviral syndrome with HIV RN A PCR in process Case had been discussed with Dr. Li and PICC nurse Code Status: Full Code USMAN VILLATORO MD 10/04/2015 Balta Mark MD - 10/04/2015 8:24 AM PDT Progress Notes by Balta Li MD at 10/04/15823 Author: Balta Li MD Service: (none) Author Type: Physician Filed: 10/04/15911 Date of Service: 10/04/15823 Status: Signed Bisque Brusher: Balta Li MD (Physician) [facility] Service: Hospitalist Progress Note Hospital Day: LOS: 3 days Consultants: Treatment Team: Consulting Physician: Chris Swann DO Consulting Physician: Renetta Buck MD Consulting Physician: Gonzalez Bhardwaj MD Surgeon: Blanca Arias MD Consulting Physician: Blanca Arias MD Admitting Provider: Carly Thomas DO The first problem in assessment is the principal problem. ICU pt summary: 30 y.o. male with significant history of tobacco and drug abuse using daily heroin and meth amphetamine, also on Suboxone. He initially presented to [facility] for progres sive weakness, lethargy, and generalized pain (mostly his chest, neck, back, knees, ankles a nd toes) for the past 7 days. She noticed that his ankles and right knee were swollen but no t warm or erythematous. According to his girlfriend, he has been feeling sick and febrile fo r the past week with poor PO intake. Yesterday, she noticed that he seemed like he was hallu cinating and talking to himself. He was very weak today that she had to assist him to get in to the car to go the the ED. Exam at OSH was significant for point tenderness at the area of the cervical spine and posi tive Kernig's sign. LP was performed to rule out meningitis. IV antibiotics started, ceftria xone 2 gm and vancomycin [address] head and C-spine x-ray performed, MRI attempted but patient decompensated and was intubated for respiratory failure and airway protection. Significant labs: Na 114 (1435 hrs), BUN 81, Crea 2.48, WBC 19.9, Hb 11.6, Plt 51, Tbili 3. 6, AST 188, ALT 155, LA 1.7. CSF: clear, colorless, WBC 0, RBC 3. Transferred to [facility] for further care. ICU Timeline: 09/30 - Transferred to ICU. LIJ TLC placed for IV access. 10/01 - MRI brain and CTL spine done, NS consulted. No acute indication for interventio n. Extubated. ASSESSMENT/ PLAN 1. Sepsis, infective endocarditis of tricuspid valve, septic pulmonary emboli. CT surgery c onsulted. Conservative management. Continue with antibiotics per ID with follow-up cultures from previous hospital. Most likely MSSA bacteremia based on sputum cultures but will follow up final blood cultures on vancomycin and ceftriaxone for now No septic arthritis. Seen by orthopedic surgery. 2. Hyponatremia, possibly hypovolemic. Appreciate help from nephrology will continue with I V fluids. Sodium has stayed stable at 122. Initial presentation was 114, now almost 48 hours back. Currently on an as and 125 cc per hour. We'll recheck again at 4 p.m. and follow-up r esponse. 3. Heroin and methamphetamine abuse, currently on methadone 10 mg 3 times a day and Vistari l 10 g 3 times a day. Also, on 2 mg IV morphine when necessary. The patient appears quite sleepy, but after discussion with RN apparently more awake since yesterday. Possible suspicion of self-medication with opiates. Will monitor for these 24 hector rs, but holding methadone and follow-up response. 4. Acute kidney injury: Creatinine is improved from presentation still high, most likely du e to sepsis and infective endocarditis also has petechial rash Disposition: Most likely SNF for IV antibiotics Code Status: Full Code Dictation and program proposals coordinator or software, Social Media Simplified, used which may contain error for similar s ounding words even after review. Personal communication requested for any clarification. SUBJECTIVE Events Overnight: *Patient appears to be quite sleepy and sedated hardly able to be awake, but responded, as and involves an colonization. Denies any nausea, vomiting, shortness of b reath. Has no exudative pain in knees and ankles. OBJECTIVE General: Well nourished. Psych: Somewhat lethargic and sleepy. Calm, cooperative. Cardiovascular: Regular rate and rhythm, systolic murmurs, no thrills. Normal PMI. Respiratory: Bilateral rhonchi, breathing non labored. Gastrointestinal: Soft, non-tender, non-distended, positive bowel sounds. No HSM. Musculoskeletal: Bilateral diffuse particular rash on both lower and upper extremities mild swelling of knee and ankle joint with tenderness also swelling of bilateral upper extremiti es No edema in bilateral lower extremities. No joint swelling. Neck: No JVD, Trachea midline. Neurological: Non focal. Motor grossly intact. PROBLEM LIST Principal Problem: Sepsis (HCC) Active Problems: Hyposmolality and/or hyponatremia MARCEL (acute kidney injury) (HCC) Leucocytosis Thrombocytopenia (HCC) Toxic metabolic encephalopathy Acute respiratory failure with hypoxia (HCC) Heroin abuse Methamphetamine abuse Tobacco abuse Acute septic pulmonary embolism (HCC) Acute infective endocarditis Moderate protein-calorie malnutrition (HCC) PMH Past Medical History Diagnosis Date Illicit drug use, continuous HOME MEDICATIONS Prior to Admission medications Not on File DATA Vital Signs: BP 123/78 mmHg | Pulse 84 | Temp(Src) 97.7 F (36.5 C) (Oral) | Resp 20 | Ht 1.702 m (5' 7") | Wt 70.308 kg (155 lb) | BMI 24.27 kg/m2 | SpO2 97% Filed Vitals: 10/03/15 2129 10/03/15 2355 10/04/15 0359 10/04/15 0738 BP: 119/69 134/72 123/78 Pulse: 104 84 84 Temp: 97.4 F (36.3 C) 97.6 F (36.4 C) 97.5 F (36.4 C) 97.7 F (36.5 C) TempSrc: Oral Oral Oral Oral Resp: 20 30 20 Height: Weight: 70.308 kg (155 lb) SpO2: 95% 95% 97% Intake/Output Summary (Last 24 hours) at 10/04/15 0824 Last data filed at 10/04/15 0443 Gross per 24 hour Intake 2175 ml Output 960 ml Net 1215 ml CBC: Lab Results Component Value Date WBC 14.41* 10/04/2015 RBC 3.39* 10/04/2015 HGB 9.0* 10/04/2015 HCT 27.3* 10/04/2015 MCV 80.5 10/04/2015 MCH 26.6* 10/04/2015 MCHC 33.1 10/04/2015 RDW 40.3 10/04/2015 PLT 69* 10/04/2015 MPV 9.9 10/04/2015 DIFFTYPE MANUAL 10/04/2015 CMP: Lab Results Component Value Date NA 123* 10/04/2015 K 3.9 10/04/2015 CL 89* 10/04/2015 CO2 23 10/04/2015 ANIONGAP 15 10/04/2015 GLUF 115* 10/04/2015 BUN 78* 10/04/2015 CREATININE 1.6* 10/04/2015 BCR 49 10/04/2015 CA 6.7* 10/04/2015 PROT 5.2* 10/04/2015 ALB 1.4* 10/04/2015 GLOB 3.6 10/01/2015 BILITOT 2.0* 10/04/2015 ALP 105 10/04/2015 AST 61* 10/04/2015 ALT 63 10/04/2015 EGFR 54* 10/04/2015 Magnesium: Lab Results Component Value Date MG 3.0* 10/04/2015 Phosphorus: Lab Results Component Value Date PHOS 3.6 10/04/2015 PT/INR: Lab Results Component Value Date INR NO CLOT DETECTED 10/04/2015 PTT: Lab Results Component Value Date APTT 39* 10/01/2015 [APTT Imaging @IMAGES@ Scheduled Medications cefTRIAXone 2 g Intravenous Q12H hydrOXYzine 10 mg Oral TID methadone 10 mg Oral 3 times per day polyethylene glycol 17 g Oral Daily sennosides 10 mL Oral Nightly vancomycin 17 mg/kg Intravenous Q24H Continuous Infusions sodium chloride (IV) 125 mL/hr at 10/03/15 1540 PRN Medications acetaminophen OR acetaminophen, lip moisturizer, magnesium sulfate OR magnesium sul fate OR magnesium sulfate, morphine, ondansetron OR ondansetron, phosphorus OR s odium phosphate IVPB 15 mmol OR sodium phosphate IVPB 30 mmol, potassium OR potassiu m OR potassium OR potassium chloride OR potassium chloride OR potassium chlo brenda Li MD 10/04/20158:24 AM onversion Transaction, Provider Unknown - 10/04/2015 5:38 AM PDTFormatting of this note might be different from th e original. Progress Notes by Charles Levi RPH at 10/04/1538 Author: Charles Levi RPH Service: (none) Author Type: Pharmacist Filed: 10/04/1539 Date of Service: 10/04/15537 Status: Signed Bisque Brusher: Charles Levi RPH (Pharmacist) 12 hr random vanco level high at 23.9. Cont vanco 1250mg IV q24h. Scr inc to 1.6. No new WBC. onver patti Transaction, Provider Unknown - 10/04/2015 4:44 AM PDT Nurse Progress Note by Kylee Ndiaye RN at 10/04/154 Author: Kylee Ndiaye RN Service: (none) Author Type: Registered Nurse Filed: 10/04/15 0458 Date of Service: 10/04/15443 Status: Signed Bisque Brusher: Kylee Ndiaye RN (Registered Nurse) Pt resting in bed, slept most of shift, had periods of wakefulness during urge to urinate. Pt had difficulty with urination takes about 5-10 minutes for pt to start urine stream. Urin e is dark, diminished urine output. Significant other at bedside all night except for ones w hen she left the floor, At beginning of shift significant other volunteered she is withdrawi ng herself. Would like CM to help her look for re-hab, states she wants to be clean for when pt is ready for D/C. Will place CM consult. Pt is lethargic, weak present with SOB with exe rtion. All medications taken without difficulty, fluids infusing as ordered NA+ stayed at 12 2 so far. C/o neck and "spine" pain MS given X2, good relief reported. VSS, ST noted with an y exertion. pt oxygenating well on RA. No other acute changes to shift assessment. Will cont to monitor. Kylee Ndiaye RN onver patti Transaction, Provider Unknown - 10/03/2015 8:00 PM PDT Nurse Progress Note by Carly Shannon RN at 10/03/151999 Author: Carly Shnanon RN Service: (none) Author Type: Registered Nurse Filed: 10/03/152005 Date of Service: 10/03/151999 Status: Signed Bisque Brusher: Carly Shannon RN (Registered Nurse) Pt Na level this shift was 120-122. Pt medicated for pain x1 with IV morphine 2 mg. Pt le thargic upon transfer to 3OP, but became more alert as shift progressed. Pt had liquid BM a nd was placed in contact enteric precautions per protocol, no c/o abdominal pain. Otherwis e, afebrile, VSS, no acute changes from previous assessment. Carly Shannon RN enteta Young MD - 10/03/2015 2:09 PM PDTFormatting of this note might be different from th e original. Progress Notes by Renetta Buck MD at 10/03/15 1404 Author: Renetta Buck MD Service: Nephrology Author Type: Physician Filed: 10/03/15 1422 Date of Service: 10/03/15 1409 Status: Signed Bisque Brusher: Renetta Buck MD (Physician) [facility] Followup -Nephrology I saw Mr. Yang Ridley today for follow-up. he is interviewed, examined and meds/ labs/ im aging have been reviewed. The patient is a 30 y.o. male with significant history of tobacco and drug abuse using jennifer y heroin and methamphetamine, also on Suboxone. He initially presented to [facility] for progressive weakness, lethargy, and generalized pain for the past 7 days. He no ticed that his ankles and right knee were swollen but not warm or erythematous. According to his girlfriend, he has been feeling sick and febrile for the past week with poor PO intake. LP was performed to rule out meningitis. IV antibiotics started, ceftriaxone 2 gm and van comycin [address] head and C-spine x-ray performed, patient decompensated and was intub ated for respiratory failure and airway protection. Significant labs ON initial presentation : Na 114 (1435 hrs), BUN 81, Crea 2.48, Over next 12-24 hrs, his sodium abruptly improved to a peak of 126 by 6 AM on 10/01 , so counter measures were started to avoid over correction. Patient received DDAVP X2 X 2 MCG AT 4 AND 8 AM ON 10/01 and is on D5W AT 200 ML/HR . he has never been hospitalized because of low sodium. HE has never been symptomatic because of low sodium. there are no herbal preparation intake; he does not have hx of liver cirrhos is. he does not have hx of CHF, hypothyroidism or adrenal insufficiency.There is no hx of ch ronic diarrhea and no N/V. Review of Systems: Patient is on the floor and extubated The patient reports cognitive impairment, headache, fatigue and weakness. He has chest tigh tness and dyspnea. Evaluated by Dr. Bhardwaj from orthopedics: Does not think patient has an kle septic joint and does not recommend surgical intervention. Echocardiogram : finding of moderate size mobile vegetation attached to the septal tricuspi d valve leaflet, moderate tricuspid regurgitation, moderate pulmonary hypertension with mild ly enlarged right ventricle. T-max in 24 hours is 100.6F. He has been extubated yesterday afternoon. Physical Exam Blood pressure 118/73, pulse 77, temperature 97.3 F (36.3 C), temperature source Oral, resp. rate 20, height 1.702 m (5' 7"), weight 76.8 kg (169 lb 5 oz), SpO2 98 %. Intake/Output Summary (Last 24 hours) at 10/03/15 1409 Last data filed at 10/03/15 0557 Gross per 24 hour Intake 6290.4 ml Output 1435 ml Net 4855.4 ml Constitutional: pt appears without distress. pale HENT: Normocephalic and atraumatic. Oropharynx is clear and moist. No oropharyngeal exudat e. Neck: No JVD present. No tracheal deviation present. Cardiovascular: Normal rate. Exam reveals no gallop and no friction rub. Pulmonary/Chest: No stridor. No respiratory distress. Pt has no wheezes, no rales. Abdominal: There is no distension and no masses or hepatosplenomegaly. There is no tendern ess and no rebound or guarding. Musculoskeletal: pt exhibits No edema in lower extremities Neurological: pt has mental slowing but is alert. He is oriented to person, place, and ti me ( month, year). There is no asterixis. No facial asymmetry. Skin: Skin is warm and dry. petechial lesions noted on his legs , slightly better. Laboratory data Labs have been reviewed since admission. Most recent pertinent labs from 10/03/2015 Lab Results Component Value Date BUN 65* 10/03/2015 CREATININE 1.2 10/03/2015 EGFR >60 10/03/2015 NA 120* 10/03/2015 K 4.0 10/03/2015 CL 85* 10/03/2015 CO2 24 10/03/2015 CA 6.5* 10/03/2015 PHOS 2.9 10/03/2015 MG 2.9* 10/03/2015 ALB 1.5* 10/03/2015 WBC 14.88* 10/03/2015 HGB 8.9* 10/03/2015 No results found for: COLORU, CLARITYU, MEROPENEM, LEUKOCYTESUR, NITRITE, UROBILINOGEN, FRED R, BLOODU, KETONES, BILIRUBINUR, GLUCOSEU, WBCU, RBCU, BACTERIA, UCASTS Component Value Date/Time CREATININE 1.2 10/03/2015 0345 CREATININE 1.5* 10/02/2015 0330 CREATININE 1.9* 10/01/2015 1935 TSH NORMAL CORTISOL 4.6 , LOW Urine osm/ serum osm pending Assessment/Plan: HYPONATREMIA; the etiology is likely due to methamphetamine use and worsened by nausea and poor po intake lately. He expectedly over-corrected as he was fluid rescucitated. Interestingly the cortisol was slow and hence will do ACTH stim test . Will check urine osm and start IVF NS at 125/hr. Continue to monitor sodium q 4 The plan is not to over correct more than 8 -10 meq/ 24 hrs . THE LOW SODIUM today IS A RES ULT OF ddavp and d5w administration yesterday. MARCEL/ ARF : resolved. This is probably hemodynamic in nature . Cr improved with hydration. BP control: BP control Is acceptable Anemia mangement: Hb is above 8; there is no indication for epogen or transfusion. 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 Not yet at steady state. Goal trough is 15-20. C ont vanco 1250mg IV q24h. Pt Scr improving now at 1.2. Will order a random level in 12 hector rs to verify pt does not need q12h vanco dosing. onver patti Transaction, Provider Unknown - 10/03/2015 12:50 PM PDT Nurse Progress Note by Mayelin Mendez RN at 10/03/15 1250 Author: Mayelin Mendez RN Service: (none) Author Type: Registered Nurse Filed: 10/03/15 1251 Date of Service: 10/03/15 125 Status: Signed Bisque Brusher: Mayelin Mendez RN (Registered Nurse) Pt had a nosebleed, pressure held for 3-4 minutes, bleeding stopped. Pt medicated with IV m orphine for 10/10 neck and back pain. Pt has family at bedside. 02 sats 99% on RA. Mayelin Mendez RN onver patti Transaction, Provider Unknown - 10/03/2015 10:51 AM PDT Nurse Progress Note by Yashira Roberts RN at 10/03/15 1051 Author: Yashira Roberts RN Service: (none) Author Type: Registered Nurse Filed: 10/03/15 1054 Date of Service: 10/03/15 105 Status: Signed Bisque Brusher: Yashira Roberts RN (Registered Nurse) Report given to ZOLTAN Carroll. Questions asked and answered. Transferred pt at 1045 to 308 via WC with belongings and significant other at bedside. onver patti Transaction, Provider Unknown - 10/03/2015 9:34 AM PDT Therapy Progress Note by GISELA Serrano at 10/03/15 0934 Author: GISELA Serrano Service: (none) Author Type: Occupational Therapist Filed: 10/03/15 0935 Date of Service: 10/03/15 0934 Status: Signed Bisque Brusher: GISELA Serrano (Occupational Therapist) 10/03/15 0933 OT Last Visit OT Received On 10/03/15 Requires OT Follow Up On hold Other Comments Comments Pr PT, pt fatigued after session. Pt moving to acute floor, will follow up tomorr ow on acute floor. Plan Requires OT Follow Up On hold Yoly Segura ARNP - 10/03/2015 9:07 AM PDT Progress Notes by YAIR Eduardo at 10/03/15 0907 Author: YAIR Eduardo Service: Auto Dealer Author Type: Advanced Registered Nu rse Practitioner Filed: 10/03/15916 Date of Service: 10/03/15906 Status: Signed Bisque Brusher: YAIR Eduardo (Nurse Practitioner) [facility] Service: Auto Dealer Progress Note Yang Ridley 30 y.o. Hospital Day: LOS: 2 days Post-Op Day: * No surgery found * Consulting Physicians Treatment Team: Consulting Physician: Chris Swann DO Consulting Physician: Renetta Buck MD Consulting Physician: Gonzalez Bhardwaj MD Surgeon: Blanca Arias MD Consulting Physician: Blanca Arias MD Admitting Provider: DO MATEUSZ Washburn Patient Summary: The patient is a 30 y.o. male with significant history of tobacco and drug abuse using jennifer y heroin and methamphetamine, also on Suboxone. He initially presented to [facility] for progressive weakness, lethargy, and generalized pain (mostly his chest, neck, theresa k, knees, ankles and toes) for the past 7 days. She noticed that his ankles and right knee w ere swollen but not warm or erythematous. According to his girlfriend, he has been feeling s ick and febrile for the past week with poor PO intake. Yesterday, she noticed that he seemed like he was hallucinating and talking to himself. He was very weak today that she had to as sist him to get into the car to go the the ED. Exam at OSH was significant for point tenderness at the area of the cervical spine and posi tive Kernig's sign. LP was performed to rule out meningitis. IV antibiotics started, ceftria xone 2 gm and vancomycin [address] head and C-spine x-ray performed, MRI attempted but patient decompensated and was intubated for respiratory failure and airway protection. Significant labs: Na 114 (1435 hrs), BUN 81, Crea 2.48, WBC 19.9, Hb 11.6, Plt 51, Tbili 3. 6, AST 188, ALT 155, LA 1.7. CSF: clear, colorless, WBC 0, RBC 3. Transferred to [facility] for further care. ICU Timeline: 09/30 - Transferred to ICU. J TLC placed for IV access. 10/01 - MRI brain and CTL spine done, NS consulted. No acute indication for interventio n. Extubated. Events Overnight: On minimal FiO2. C/o drug w/d. Plan discussed[facility] SCHEDULED MEDICATIONS cefTRIAXone 2 g Intravenous Q12H hydrOXYzine 10 mg Oral TID methadone 10 mg Oral 3 times per day pneumococcal 23-valent vaccine 0.5 mL Intramuscular Once Immunization polyethylene glycol 17 g Oral Daily sennosides 10 mL Oral Nightly vancomycin 17 mg/kg Intravenous Q24H CONTINUOUS INFUSIONS dextrose OBJECTIVE VITAL SIGNS Temp: [93.7 F (34.3 C)-100.6 F (38.1 C)] 100.2 F (37.9 C) Heart Rate: [89-115] 109 Resp: [12-37] 35 BP: (100-122)/(58-82) 119/60 mmHg FiO2 : [30 %-35 %] 30 % Intake/Output Summary (Last 24 hours) at 10/03/15 0907 Last data filed at 10/03/15 0557 Gross per 24 hour Intake 6290.4 ml Output 1525 ml Net 4765.4 ml EXAM GEN: awake, flat affect. Intact. Follows commands NEURO: PERRLA, no facial asymmetry GCS: 15 HEENT: sclerae clear, slightly icteric, oral mmm, pink, no exudates NECK: trachea midline, supple CV: RRR, distant heart sounds, peripheral pulses palpable, cap refill brisk LUNGS: decreased air entry both bases, scattered rales, no wheezing, symmetric chest expans ion, even/unlabored respirations ABD: soft, nondistended, nontender to palpation, no masses EXTR: 1+ ankle edema bilaterally, no clubbing or cyanosis SKIN: pale, warm, petechial rash bilateral lower extremities - improving; no e/o skin break down over the occiput, scapulae, elbows, sacrum or heels LINES/TUBES: LIJ TLC (09/30) DATA Recent Labs Lab 10/03/15 0345 10/02/15 0330 10/01/15 193 WBC 14.88* 12.62* 16.63* RBC 3.36* 3.76* 3.59* HGB 8.9* 10.1* 9.4* HCT 27.0* 31.0* 29.1* MCV 80.6 82.5 81.1 MCH 26.6* 26.8* 26.2* MCHC 33.0 32.4 32.3 RDW 38.1 39.8 39.4 PLT 58* 35* 43* MPV 10.9 10.6 10.1 BANDSABS 1.04* -- 0.67* MORPH RBC AND PLT MORPHOLOGY APPEAR NORMAL RBC AND PLT MORPHOLOGY APPEAR NORMAL 1+ Recent Labs Lab 10/03/15 0758 10/03/15 0345 10/03/15 0039 [id number]/1532910/01/15 193 NA 122* 120* 121* < > 124* < > 120* K -- 4.0 -- -- 4.0 -- 4.5 CL -- 85* -- -- 88* -- 87* CO2 -- 24 -- -- 24 -- 22* ANIONGAP -- 15 -- -- 15 -- 15 GLUF -- 91 -- -- 143* -- 112* BUN -- 65* -- -- 70* -- 75* CREATININE -- 1.2 -- -- 1.5* -- 1.9* BCR -- 54 -- -- 47 -- 39 CA -- 6.5* -- -- 7.1* -- 5.9* ALB -- 1.5* -- -- 1.7* -- 1.5* GLOB -- -- -- -- -- -- 3.6 AG -- -- -- -- -- -- 0.4* PROT -- 5.3* -- -- 5.9* -- 5.1* BILITOT -- 1.8* -- -- 3.4* -- 3.4* ALT -- 76* -- -- 133* -- 129* AST -- 64* -- -- 176* -- 192* EGFR -- >60 -- -- 58* -- 44* PHOS -- 2.9 -- -- 5.9* -- -- MG -- 2.9* -- -- 3.1* -- -- < > = values in this interval not displayed. Recent Labs Lab 10/03/15 03410/02/1532910/01/155 INR 1.5 1.7 1.6 IMAGING Mri Brain Without Contrast 10/02/2015 No acute or focal intracranial abnormality . No evidence of infarct or hemorrha ge. RADIA Electronically signed by Maegan Maddox MD on Oct 02 2015 4:49AM Referring Prov ider Line: [phone] ID: [id number] Mri Cervical Spine Without Contrast 10/02/2015 No cord impingement or cord signal abnormality identified. No findings suggesti ng diskitis or osteomyelitis. Prominence to the epidural space in the upper cervical spine , potentially a prominent epidural venous plexus. Evaluation for abscess is limited without I V contrast. Followup suggested. RADIA Electronically signed by Maegan Maddox MD on Oct 02 2015 5:45AM Referring Provider Line: [phone] ID: [id number] Mri Thoracic Spine Without Contrast 10/02/2015 No significant abnormality identified in the thoracic spine . Evaluation for ep idural abscess is limited without IV contrast. Right-sided pleural effusion . Multiple cavi tating lung nodules. This is suboptimally imaged with this technique. Consider correlation w ith CT. RADIA Electronically signed by Maegan Maddox MD on Oct 02 2015 5:00AM Referring P shawn Line: [phone] ID: [id number] Mri Lumbar Spine Without Contrast 10/02/2015 Degenerative disk disease at L5-S1. No significant central canal stenosis. Oth er disk spaces are unremarkable . Evaluation for epidural abscess is limited without IV co ntrast. Bilateral posterior paraspinal muscular edema , nonspecific. No fluid collection a menable to drainage is identified. RADIA Electronically signed by Maegan Maddox MD on Oct 02 2015 5:03AM Referring Provider Line: [phone] ID: [id number] X-ray Chest 1 View 10/02/2015 1. Stable positioning of support tubes and lines. 2. Unchanged multifocal opa cities with bilateral effusions. Imaging findings may reflect stigmata of septic pulmonary e mbolus. Echo Cardiac Adult Complete 10/02/2015 1. LV size, wall thickness and systolic function are normal, with an EF of 60%. 2. The diastolic filling pattern indicates impaired relaxation consistent with mild dysfunc tion (Grade I). 3. The right ventricle is mildly enlarged, but right ventricular systolic fu nction is normal. 4. Moderate tricuspid regurgitation present. 5. There is moderate pulmonar y hypertension. The right ventricular systolic pressure (pulmonary artery systolic pressur e), as measured by Doppler, is 50.27mmHg. 6. Moderate sized, mobile vegetation attached to t he septal tricuspid valve leaflet. PROBLEM LIST Principal Problem: Sepsis (HCC) Active Problems: Hyposmolality and/or hyponatremia MARCEL (acute kidney injury) (HCC) Leucocytosis Thrombocytopenia (HCC) Toxic metabolic encephalopathy Acute respiratory failure with hypoxia (HCC) Heroin abuse Methamphetamine abuse Tobacco abuse Acute septic pulmonary embolism (HCC) Acute infective endocarditis Moderate protein-calorie malnutrition (HCC) Resolved Problems: * No resolved hospital problems. * ASSESSMENT & PLAN NEURO: Toxic metabolic and septic encephalopathy - supportive, treat with antibiotics. Cleared. Following. Possible meningitis - LP performed at OSH (09/30). CSF cell count: WBC 0, RBC 3. Started on CTX and Vancomycin -continue for now. Brain and CTL-spine MRI to rule out septic emboli o r abscess/collection given the history of neck & back pain and weakness. ? Area on T spine. NS consulted. No indication for intervention. No nuchal s/s today Heroin and methamphetamine abuse - will need counseling and rehabiltation once medically stable. Methadone 10mg TID/Vistaril 10mg TID for w/d. CV: Sepsis, infective endocarditis - Vegetation on tricuspid valve. CTS consulted. No acut e surgical indication. Cont abx Not in shock PULM: Acute hypoxemic respiratory failure, RESOLVED. Extubated. On minimal O2 Septic pulmonary emboli - See ID plan GI/NUTRITION: General diet. . Elevated bilirubin - likely from sepsis. Recheck--trending down. RENAL/LYTES: MARCEL (acute kidney injury) - Avoid nephrotoxins and renally dose medications -- Cr 1.5--> 1.2. Neph following. Adam for strict I&Os Hyponatremia - initial Na of 114 (09/30 at 14:35), increase by no more than 4-6 in the fi rst 24 hours (10/01 at 14:35 goal of 120 day 1, 126-128 day 2) to prevent ODS. Serial Na narendra cks q4h. Most recent Na of 122 -Free water dc'd. Discussed with Hospitalist who will cont t o follow closely ID: Sepsis, infective endocarditis, leucocytosis - Blood and sputum cultures obtained. Curre ntly on ceftriaxone and vancomycin (ENDOSCOPE TECHNICIAN dosing). ID following. Leave CVC in place until Cx n eg for 72hrs. ID will manage and f/u on ordering PICC line HEME: Thrombocytopenia - likely from sepsis. Hold heparin, transfused with 1 u platelet 10/01 ( 35K-->58K) Coagulopathy - INR 1.5, likely from sepsis. Monitor. Monitor CBCs and coags. Transfusion goal <7 g/dL. Hgb 8.9 ENDO: Blood glucose goal 100-180 mg/dL, transitioned from Endotool to SSI (had been on D5, now off--sepsis improved) MUSC/SKIN: Reviewed skin cares with nursing. Mobilize when able PT/OT PROPHYLAXIS: Stress ulcer prophylaxis: NA DVT prophylaxis: SCDs, no heparin due to thrombocytopenia Disposition: Report to Dr Li. Out to Hospitalist service. Code Status: Full Code *Please bill 30 minutes of critical care time spent evaluating the patient, reviewing the d michael and formulating a plan exclusive of all other procedures. YAIR Eduardo 10/03/2015 ells, Mohamud Ward PT - 10/03/2015 8:35 AM PDTFormatting of this note might be different from the origin al. Therapy Progress Note by Rhona Wray, PT at 10/03/15 0835 Author: Rhona Wray, PT Service: (none) Author Type: Physical Therapist Filed: 10/03/15 1108 Date of Service: 10/03/1535 Status: Signed Bisque Brusher: Rhona Wray, PT (Physical Therapist) 10/03/15 0835 PT Last Visit PT Received On 10/03/15 Reason for Treatment Deconditioning (due to sepsis/drug abuse) Requires PT Follow Up Awaiting tx order Follow up PT Only? No PT Eval/Reassessment Date 10/03/15 Assistance Required 1 person;2 person Skip Operator Needed No Precautions Other Precautions fall risk Cognition Overall Cognitive Status Impaired Orientation Level Oriented Comments reported depression/down "I'm just a beat" Bed Mobility Supine to Sit Dependent (used supine to sit option on bed) Scooting Anterior/posterior (at EOB and reclilner) Transfers Sit to/from Stand Maximal assist (to arise AND lower);Moderate assist (to arise OR lower);x 1 person;Verbal instruction;Safety concerns;x 2 person Bed to/from Chair Maximal assist (to arise AND lower);Moderate assist (to arise OR lower);V erbal instruction;x 1 person;Patient appears safe;x 2 person (to [facility]) Mobility Weight Bearing Status WBAT LLE;WBAT RLE Ambulation Assistance Moderate assist;Verbal instruction;X1;X2;Safety concerns Maximal Ambulation Distance (feet) requested step in place for a minute- tolerated 40 secon ds- intermittant rests- then sat down quickly- reporting fatigue Total Ambulation Distance (feet) 40 seconds Distance limited by? Patient's ability Pattern Alternating Assistive Device Walker front wheeled Stairs Assistance Safety concerns;JEANETTE Supine Supine-Exercise Type Ankle pumps;Quad sets;Glut sets (every commercial- do these) Supine-Exercise Comments 5 reps x3 sets Modalities Modalities Other therapy Other Therapy Initial instructions for strengthening- balance- safety- need for mobility Activity Tolerance Activity Tolerance Patient limited by fatigue;Patient limited by pain Nurse Made Aware yes- she assisted several times and was with patient when PT completed Safety Devices Safety Devices in Place Not applicable Restraints Initially in Place No (SO in room and call rodríguez in reach; left with RN) Plan Treatment/Interventions Continue with skilled PT services;Assist d/c plannning;Balance griselda nafisa;Bed mobility training;Family training;Gait training;Transfer training;Therapeutic exerc ise;Stair training;Set goals;Review precautions;Provide HEP Progress Slow progress, decreased activity tolerance;Slow progress, medical status limitati ons PT Frequency 5-7x/wk;Twice a day;Once per day Care Duration (# of days) 7 # of days Recommendation Recommendations Other (comment) (patient might benefit from substance abuse rehab program) Equipment Recommended Other (Comment) (do not expect him to need any DME) Barriers to Discharge Physical Deficits Impacting Functional [place];Self-care Deficit s Impacting Functional [place];Other (see comment) (substance abuse history-requested placement in rehab drugabu) Recommendation Comments patient requested placement in substance abuse program/rehab Frequent reports of dizziness: Pre/peak/post Position BP Pulse rate O2 sats L/min Pre PT Supine 113/74 86 97%w/out oxygen " 30' HOB-elev 115/75 90 stayed " 60' " 118/77 87 Above 95% " 90' "/Sitting 107/67 93 Throughout Standing 129/87 93 session Post-PT Sitting 131/74 86 Oliva Case MD - 10/03/2015 7:43 AM PDTFormatting of this note might be different from the meir lima Progress Notes by Usman Villatoro MD at 10/03/15742 Author: Usman Villatoro MD Service: Infectious Disease Author Type: Physician Filed: 10/03/1517 Date of Service: 10/03/15742 Status: Signed Bisque Brusher: Usman Villatoro MD (Physician) [facility] Service: Infectious Disease Progress Note Hospital Day: LOS: 2 days Post-Op Day: * No surgery found * SUBJECTIVE Patient Summary: CC: Fever, chest pain and altered mental status From Auto Dealer's admission note on 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 male with significant history of tobacco and drug abuse using daily heroin and methamphetamine, also on Suboxone. He initially presented to [facility] for progressive weakness, lethargy, and ge neralized pain (mostly his chest, neck, back, knees, ankles and toes) for the past 7 days. H e noticed that his ankles and right knee were swollen but not warm or erythematous. Accordin g to his girlfriend, he has been feeling sick and febrile for the past week with poor PO int elisha. Yesterday, she noticed that he seemed like he was hallucinating and talking to himself. He was very weak today that she had to assist him to get into the car to go the the ED. Exam at OSH was significant for point tenderness at the area of the cervical spine and posi tive Kernig's sign. LP was performed to rule out meningitis. IV antibiotics started, ceftria xone 2 gm and vancomycin [address] head and C-spine x-ray performed, MRI attempted but patient decompensated and was intubated for respiratory failure and airway protection. Significant labs: Na 114 (1435 hrs), BUN 81, Crea 2.48, WBC 19.9, Hb 11.6, Plt 51, Tbili 3. 6, AST 188, ALT 155, LA 1.7. CSF: clear, colorless, WBC 0, RBC 3. Protein 31. Glucose 50. Culture with no growth to d ate Blood cultures are reported to be growing GPCs at [facility] Transferred to [facility] for further care. MRI of brain and spine carried out with limited findi ngs due to non-contrast study. Events Overnight: Evaluated by Nephrology, acute renal failure attributed to hemodyn amics. Evaluated by Dr. Bhardwaj from orthopedics: Does not think patient has ankle septic j oint and does not recommend surgical intervention. Echocardiogram has been carried out with finding of moderate size mobile vegetation program management manager d to the septal tricuspid valve leaflet, moderate tricuspid regurgitation, moderate pulmonar y hypertension with mildly enlarged right ventricle. T-max in 24 hours is 100.6F. He has been extubated yesterday afternoon. He feels slightl y short of breath with pleurisy. Has mild cough; denies phlegm production/hemoptysis. Denies headache, neck pain, back pain, arthralgias. No pruritus. No abdominal pain, nausea, vomiti ng or diarrhea. Last IV drug use was the day prior to admission. Scheduled Medications cefTRIAXone 2 g Intravenous Q12H pneumococcal 23-valent vaccine 0.5 mL Intramuscular Once Immunization polyethylene glycol 17 g Oral Daily sennosides 10 mL Oral Nightly vancomycin 17 mg/kg Intravenous Q24H Continuous Infusions dexmedetomidine in NS 0.2 mcg/kg/hr (10/02/15 1554) dextrose insulin regular 1 unit/mL 2.8 Units/hr (10/02/152041) sodium chloride (IV) 30 mL/hr at 10/02/151999 PRN Medications acetaminophen OR acetaminophen, dextrose, dextrose, dextrose, dextrose, dextrose, fenta NYL, glucagon, glucagon, insulin regular 1 unit/mL, lip moisturizer, nystatin, nystatin, ond ansetron OR ondansetron, petrolatum OBJECTIVE Vital Signs: BP 119/60 mmHg | Pulse 109 | Temp(Src) 100.2 F (37.9 C) (Bladder) | Resp 35 | Ht 1.702 m (5' 7") | Wt 76.8 kg (169 lb 5 oz) | BMI 26.51 kg/m2 | SpO2 94% Temp: [93.7 F (34.3 C)-100.6 F (38.1 C)] 100.2 F (37.9 C) (10/02 599) BP: (100-122)/(58-82) 119/60 mmHg (10/02 599) Heart Rate: [86-115] 109 (10/02 06) Resp: [12-37] 35 (10/02 0552) SpO2: [88 %-100 %] 94 % (10/02 0600) Weight: [76.8 kg (169 lb 5 oz)] 76.8 kg (169 lb 5 oz) (10/02 0430) FiO2 : [30 %-35 %] 30 % (10/01 1600) Physical Exam Vital signs have been reviewed Gen.: Awake and alert. Not in acute distress HEENT: Normocephalic. Anicteric sclerae. No conjunctival lesions. No nasal mucosal lesions. Grossly normal hearing. No oral thrush or ulcers. Neck is supple with no palpable neck mass es. Left IJ central line site is unremarkable Lungs: Decreased respiratory effort with decreased breath sounds. No rales, wheezes or rhon chi noted Cardiovascular: Normal rate. Tachycardic. Abdomen: No distention. Soft. No tenderness or palpable masses Albarran catheter in place Petechial rash at antecubital area. Petechial rash at both legs/proximal feet. No drug rash Musculoskeletal: No inflamed looking joints Neurologic: Oriented 3, no focal weakness or numbness Psychiatric: Appropriate affect DATA CBC: Lab Results Component Value Date WBC 14.88* 10/03/2015 RBC 3.36* 10/03/2015 HGB 8.9* 10/03/2015 HCT 27.0* 10/03/2015 MCV 80.6 10/03/2015 MCH 26.6* 10/03/2015 MCHC 33.0 10/03/2015 RDW 38.1 10/03/2015 PLT 58* 10/03/2015 MPV 10.9 10/03/2015 DIFFTYPE MANUAL 10/03/2015 WBC: Lab Results Component Value Date WBC 14.88* 10/03/2015 NEUTABSMAN 13.24* 10/03/2015 NEUTROMAN 89 10/03/2015 LYMPHOABS 0.30* 10/03/2015 LYMPHOMAN 2 10/03/2015 MONOABSMAN 0.30 10/03/2015 MONOMAN 2 10/03/2015 PLTEST DECREASED 10/03/2015 BANDSPCT 7 10/03/2015 Hemoglobin/Hematocrit: Lab Results Component Value Date HGB 8.9* 10/03/2015 HCT 27.0* 10/03/2015 PT/INR: Lab Results Component Value Date INR 1.5 10/03/2015 U/A: No results found for: COLORU, CLARITYU, MEROPENEM, LEUKOCYTESUR, NITRITE, UROBILINOGE N, UPRO, PHUR, BLOODU, KETONES, BILIRUBINUR, GLUCOSEU ABG: Lab Results Component Value Date POCPH 7.429 10/01/2015 POCPCO 34* 10/01/2015 POCPO2 230* 10/01/2015 POCHCO 22 10/01/2015 POCTCO2 23 10/01/2015 POCBD 2 10/01/2015 POCSO2 100* 10/01/2015 POCCMT Tidal Volume = 450 10/01/2015 HgBA1c: Lab Results Component Value Date HGBA1C 5.8 10/03/2015 LABGLYC 120 10/03/2015 TSH: Lab Results Component Value Date TSH 0.75 10/03/201510/01 pro-calcitonin 24.77 Acute hepatitis profile nonreactive Rapid HIV negative; HIV RNA PCR in process Component Latest Ref Rng 10/03/2015 3:45 AM ELIE, PM 3.0 - 16.0 ug/dL 4.6 Microbiology data: 09/30 blood cultures with no growth to date 09/30 sputum culture is growing 3+ Staphylococcus aureus with susceptibility to follow; Gram stain showed 3+ gram-positive cocci and 1+ gram-positive rods 09/30 MRSA nasal PCR negative Radiology data: Impression 1. Stable positioning of support tubes and lines. 2. Unchanged multifocal opacities with bilateral effusions. Imaging findings may reflect s tigmata of septic pulmonary embolus. X-ray chest 1 view [[id number]] Impression No acute or focal intracranial abnormality . No evidence of infarct or hemorrhage. RADIA Electronically signed by Maegan Maddox MD on Oct 02 2015 4:49AM Referring Provider Line: [phone] ID: [id number] MRI brain without contrast [[id number]] Impression No cord impingement or cord signal abnormality identified. No findings suggesting diskitis or osteomyelitis. Prominence to the epidural space in the upper cervical spine , potentially a prominent epidural venous plexus. Evaluation for abscess is limited without IV contrast. Followup suggested. RADIA Electronically signed by Maegan Maddox MD on Oct 02 2015 5:45AM Referring Provider Line: [phone] ID: [id number] MRI cervical spine without contrast [[id number]] No significant abnormality identified in the thoracic spine . Evaluation for epidural absce ss is limited without IV contrast. Right-sided pleural effusion . Multiple cavitating lung nodules. This is suboptimally image d with this technique. Consider correlation with CT. RADIA Electronically signed by Maegan Maddox MD on Oct 02 2015 5:00AM Referring Provider Line: [phone] ID: [id number] MRI thoracic spine without contrast [[id number]] Impression Degenerative disk disease at L5-S1. No significant central canal stenosis. Other disk space s are unremarkable . Evaluation for epidural abscess is limited without IV contrast. Bilateral posterior paraspinal muscular edema , nonspecific. No fluid collection amenable t o drainage is identified. RADIA Electronically signed by Maegan Maddox MD on Oct 02 2015 5:03AM Referring Provider Line: [phone] ID: [id number] MRI lumbar spine without contrast [[id number]] Impression 1. LV size, wall thickness and systolic function are normal, with an EF of 60%. 2. The diastolic filling pattern indicates impaired relaxation consistent with mild dysfunc tion (Grade I). 3. The right ventricle is mildly enlarged, but right ventricular systolic function is dorothy l. 4. Moderate tricuspid regurgitation present. 5. There is moderate pulmonary hypertension. The right ventricular systolic pressure (pul monary artery systolic pressure), as measured by Doppler, is 50.27mmHg. 6. Moderate sized, mobile vegetation attached to the septal tricuspid valve leaflet. 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 If no blood culture growth by kelley su, we will plan on PICC placement with removal of central line -Currently on IV vancomycin/ceftriaxone; appreciate pharmacy dosing, vancomycin part of . MRSA nasal PCR negative. If blood cultures from [facility] in tracheal aspirate cult ure here are confirmed to be MSSA, we will plan on transitioning antibiotics to nafcillin, w ith plan for 6 weeks of IV antibiotic treatment in a supervised setting Encephalopathy, metabolic -resolved -Initial CSF analysis at [place] had been reassuring; will follow up on final CSF cu lture report Acute hypoxemic respiratory failure. -Known septic pulmonary emboli -Stable status post extubation AK I -evaluated by nephrology; renal failure attributed to hemodynamics - GFR is now at 83 -vancomycin dosing per GFR based on pharmacy protocol abnormal LFTs -Most likely from sepsis, improving -Acute hepatitis profile negative IV drug use -Last use had been the day prior to admission -Patient has been counseled about the adverse effects of IV drugs to his health; advised s topping IV drug use -Not a candidate for home IV antibiotic therapy -HIV rapid screen came back negative; ruling out for acute retroviral syndrome with HIV RN A PCR in process Case had been discussed with Dr. Villa and Yoly Wang EGG TRAYER Plan on transfer to the hospitalist service today Code Status: Full Code USMAN VILLATORO MD 10/03/2015 onversion Moses saction, Provider Unknown - 10/02/2015 5:29 PM PDTFormatting of this note might be differen t from the original. Nurse Progress Note by Yashira Roberts RN at 10/02/15 6540 Author: Yashira Roberts RN Service: (none) Author Type: Registered Nurse Filed: 10/02/15 1733 Date of Service: 10/02/151728 Status: Signed Bisque Brusher: Yashira Roberts RN (Registered Nurse) at bedside assessing pt, pt lethargic but following commands. Extubated pt to room air a t 1708, tolerated well. oBlanca millan Jr., MD - 10/02/2015 4:08 PM PDTFormatting of this note might be different from t he original. Progress Notes by Blanca Arias MD at 10/02/15 1608 Author: Blanca Arias MD Service: (none) Author Type: Physician Filed: 10/02/15 1609 Date of Service: 10/02/15 1608 Status: Signed Bisque Brusher: Blanca Arias MD (Physician) D/W Dr. Thomas Full consult to follow after review of echocardiogram Further recommendations to follow onversion Trans action, Provider Unknown - 10/02/2015 12:11 PM PDT Progress Notes by Ana Garnett RD, CD at 10/02/15 1211 Author: Ana Garnett RD, CD Service: (none) Author Type: Registered Dietitian Filed: 10/02/15 1211 Date of Service: 10/02/15 1211 Status: Signed Bisque Brusher: Ana Garnett RD, CD (Registered Dietitian) 10/02/15 1119 Subjective Timepoint Admit (routine ICU admit consult, start trickle feeds) Pt c/o Pt was admitted with sepsis, infective endocarditis. Has a hx of tobacco and drug ab use. Currently intubated, not on any sedation. Plan is to start trickle feeds today. Diet Experience Self-selected diet(s) followed Pt's sister and girlfriend were at the bedside. Girlfriend r eports that pt has been feeling sick for the past week with poor PO intake. Intake has consi sted of only very small amounts of food such as a 1/2 cup of cereal, 1/4 of a sandwich, or a few bites of soup. Prior to this, girlfriend reports that pt had been eating well, selectin g a variety of foods without any issues. However, sister indicates that pt's intact can be s poradic ("like that of an addict"), gorging on food at times, but skipping meals at others. Pt has no known food allergies. Fluid / Beverage Intake Oral Fluids Amount NPO Food Intake Amount of Food NPO Enteral Nutrition Intake Access OG tube. Feeding tube flush Free water flushes 200 mL q 4 hours. Parenteral Nutrition Intake Rate/Solution On IV fluids of D5W at 200 mL/hr which provides approximately 816 kcal/day. D DAVP also ordered. Nutrition-Focused Physical Findings Overall Appearance Appears thin. Skin Intact. Anthropometrics Weight change Sister states that pt has "always been thin" and reports that pt's UBW varies between 155-170#, although more recently, pt has weighed closer to 155# (70.5 kg). Based on this, wt is down about 1.4 kg (2%) over the past week which is considered severe. BMI 23.85 - WNL. Biochemical data, medical tests, and procedures reviewed Biochemical data, medical tests, and procedures reviewed Na 125 (L) - being slowly correcte d. Auto Dealer managing fluids. BG has been elevated in the 100s-200s, EndoTool insulin drip to be started. BUN 70 (H), Cr 1.5 (H), phos 5.9 (H) - consistent with MARCEL. LFTs also elevat ed. Estimated Energy Needs Total Energy Estimated Needs 0974-4034 kcal/day Method for Estimating Needs 25-30 kcal/kg admit wt (69.1 kg) Estimated Protein Needs Total Protein Estimated Needs 83-103 g protein/day Method for Estimating Needs 1.2-1.5 g protein/kg admit wt (69.1 kg) Recommendations Recommended energy needs Initiate trickle feeds of Peptamen AF at 15 mL/hr. Once tolerance is established and advancement is indicated, will f/u to provide further TF goals to ensure kcal/protein requirements are met. Nutritional Risk Nutritional risk High Follow up date 10/05/15 Malnutrition Evaluation Estimated energy intake time frame 7 Days Estimated % energy intake last 7 days (!) 65 % RD Assessed Weight 69.1 kg (152 lb 5.4 oz) Weight Loss time frame 1 Week Weight 1 week ago 70.5 kg (155 lb 6.8 oz) % weight loss from 1 week ago (!) -1.99 % Malnutrition in the Context Of Acute Illness Clinical Characteristics indicative of moderate malnutrition less than 75% of EER for >7day s;1-2% weight loss over 1 week Protein-Calorie Malnutrition Type (!) Moderate Ana Garnett RD, CD, CNSC 10/02/2015 onver patti Transaction, Provider Unknown - 10/02/2015 12:08 PM PDT Case Management by SAMEERA Huggins at 10/02/15 1208 Author: SAMEERA Huggins Service: (none) Author Type: Fuse Assembler Filed: 10/02/15 1218 Date of Service: 10/02/15 1208 Status: Signed Bisque Brusher: SAMEERA Huggins (Fuse Assembler) 10/02/15 1104 Discharge Planning Evaluation Admitting Diagnosis endocarditis, septic PE's Readmission No (Transfer from [facility]) Living Arrangements Spouse/significant other Support Systems Spouse/significant other Type of Residence Private residence House type House-1 story Independent with ADL's Yes Independent with Mobility Yes Home Care Services No Caregiver after Discharge No Mental Status Unable to answer questions (Vented) Prior functional status Independent. Power of Carpenter Helper Maintenance No Anticipated Discharge Plan Plan communicated to patient/family Yes Resources Financial concerns Yes (Unemployed) Transportation issues No Patient/Family concerns Yes (Family [facility]) Prescription Plan No Anticipated Disposition Facility Type (TBD: pt will likely need rat exterminator IV abx. Disposition will be difficult.) Met with: pt's sister Mayelin and pt's KORIN Wright and discussed discharge planning, Pt is a 30 y.o., male admitted with endocarditis and seti c PE's. GF states that pt lives with her and her 7yo son in her parents home. They live in a daylight basement area that has no bathroom or kitchen. Pt is unemployed. 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 Pt has never been ma rried and has no children. His mother and younger sister live in [place]. Pt is a meth and heroine user. Per GF pt states he has been using for approx 7 years. He wills s not been in rehab in the past. He did not graduate from highAppistryool but has his GED. Mother - Magalie [phone] (father is ) Sister- Carly -[phone] KORIN Wright - [phone] Sistr- Mayelin- [phone] Patient's PCP is: PER PT NONE Pt did not go to the doctor. Patient's insurance:[facility] [employer] Coverage concerns: Medication coverage/concerns: Lucy's Bedside Delivery: Community resources utilized / needed: Assistance in transportation: TBD. GF and/or sister can transport. Identification of any specific education / training: Barriers to Discharge / Alternative housing needed: Anticipated DCP: TBD: Likely will need IV abx. AV SORTO onver patti Transaction, Provider Unknown - 10/02/2015 9:57 AM PDT Therapy Progress Note by OKSANA Serrano/Ed at 10/02/15956 Author: GISELA Serrano Service: (none) Author Type: Occupational Therapist Filed: 10/02/15956 Date of Service: 10/02/15956 Status: Signed Bisque Brusher: GISELA Serrano (Occupational Therapist) 10/02/15956 OT Last Visit OT Received On 10/02/15 Requires OT Follow Up On hold Other Comments Comments Per RN, pt no appropriate for therapy this day. Will continue to follow. Plan Requires OT Follow Up On hold onver patti Transaction, Provider Unknown - 10/02/2015 9:30 AM PDT Case Management by SAMEERA Huggins at 10/02/15929 Author: SAMEERA Huggins Service: (none) Author Type: Fuse Assembler Filed: 10/02/15956 Date of Service: 10/02/15929 Status: Signed Bisque Brusher: SAMEERA Huggins (Fuse Assembler) Attended morning rounds. Pt is vented for decrease in LOC. MRI of spine and brain. Pt has + blood cultures. Will likely need correction IV abx. Cm to follow. Assessment to follow. onver patti Transaction, Provider Unknown - 10/02/2015 9:11 AM PDT Therapy Progress Note by Abran Parrish PT at 10/02/15910 Author: Abran Parrish PT Service: (none) Author Type: Physical Therapist Filed: 10/02/151923 Date of Service: 10/02/15910 Status: Signed Bisque Brusher: Abran Parrish, PT (Physical Therapist) 10/02/15910 PT Last Visit PT Received On 10/02/15 Requires PT Follow Up On hold (Hold PT due to present medical status. WIll f/u 10/02) onver patti Transaction, Provider Unknown - 10/02/2015 8:17 AM PDT Progress Notes by Brenda Suarez RPH at 10/02/15816 Author: Brenda Suarez RPH Service: (none) Author Type: Pharmacist Filed: 10/02/15816 Date of Service: 10/02/15816 Status: Signed Bisque Brusher: Brenda Suarez RPH (Pharmacist) Vancomycin day 2 Scr 1.5 mg/dL Est CrCl 66.1 ml/min WBC 12.62 Await Trough at 1300 16 arreIvan gonsalez MD - 10/02/2015 3:14 AM PDTFormatting of this note might be different from t he original. Progress Notes by Ivan Munoz MD at 10/02/15313 Author: Ivan Munoz MD Service: Auto Dealer Author Type: Physician Filed: 10/02/15 0415 Date of Service: 10/02/15313 Status: Signed Bisque Brusher: Ivan Munoz MD (Physician) [facility] Service: Auto Dealer Progress Note Yang Ridley 30 y.o. Hospital Day: LOS: 1 day Post-Op Day: * No surgery found * Consulting Physicians Treatment Team: Consulting Physician: Chris Swann DO Admitting Provider: Carly Thomas DO SUBJECTIVE Patient Summary: The patient is a 30 y.o. male with significant history of tobacco and drug abuse using jennifer y heroin and methamphetamine, also on Suboxone. He initially presented to [facility] for progressive weakness, lethargy, and generalized pain (mostly his chest, neck, theresa k, knees, ankles and toes) for the past 7 days. She noticed that his ankles and right knee w ere swollen but not warm or erythematous. According to his girlfriend, he has been feeling s ick and febrile for the past week with poor PO intake. Yesterday, she noticed that he seemed like he was hallucinating and talking to himself. He was very weak today that she had to as sist him to get into the car to go the the ED. Exam at OSH was significant for point tenderness at the area of the cervical spine and posi tive Kernig's sign. LP was performed to rule out meningitis. IV antibiotics started, ceftria xone 2 gm and vancomycin [address] head and C-spine x-ray performed, MRI attempted but patient decompensated and was intubated for respiratory failure and airway protection. Significant labs: Na 114 (1435 hrs), BUN 81, Crea 2.48, WBC 19.9, Hb 11.6, Plt 51, Tbili 3. 6, AST 188, ALT 155, LA 1.7. CSF: clear, colorless, WBC 0, RBC 3. Transferred to [facility] for further care. ICU Timeline: 09/30 - Transferred to ICU. LIJ TLC placed for IV access. Events Overnight: MRI brain and CTL spine done, results pending. SCHEDULED MEDICATIONS cefTRIAXone 2 g Intravenous Q12H chlorhexidine gluconate 15 mL Mouth/Throat Q12H desmopressin (DDAVP) IVPB 2 mcg Intravenous Once docusate sodium 100 mg Oral BID famotidine 20 mg Oral BID Or famotidine 20 mg Intravenous BID insulin lispro (human) 0-6 Units Subcutaneous 4 times per day lactated ringers 1,000 mL Intravenous Once midazolam pneumococcal 23-valent vaccine 0.5 mL Intramuscular Once Immunization sodium chloride 0.9 % sodium chloride 0.9 % vancomycin 17 mg/kg Intravenous Q12H Followed by [START ON 10/03/2015] vancomycin 17 mg/kg Intravenous Q24H CONTINUOUS INFUSIONS dextrose dextrose 150 mL/hr at 10/01/157 OBJECTIVE VITAL SIGNS Temp: [94.8 F (34.9 C)-102 F (38.9 C)] 94.8 F (34.9 C) Heart Rate: [71-115] 71 Resp: [17-29] 24 BP: (85-107)/(50-65) 100/65 mmHg FiO2 : [35 %] 35 % Intake/Output Summary (Last 24 hours) at 10/02/15 0415 Last data filed at 10/01/152044 Gross per 24 hour Intake 292 ml Output 600 ml Net -308 ml EXAM GEN: intubated, somnolent without sedation on board NEURO: PERRLA, no facial asymmetry, withdraws extremities to painful stimuli, not following commands GCS: E3, VT, M5 =9T HEENT: sclerae clear, slightly icteric, oral mmm, pink, no exudates, ETT and OGT in place NECK: trachea midline, grimaces on palpation of C-spine CV: RRR, distant heart sounds, peripheral pulses palpable, cap refill brisk LUNGS: decreased air entry both bases, scattered rales, no wheezing, symmetric chest expans ion, even/unlabored respirations ABD: soft, nondistended, nontender to palpation, no masses EXTR: 1+ ankle edema bilaterally, no clubbing or cyanosis SKIN: cool, clammy, petechial rash bilateral lower extremities - improving; no e/o skin tamara akdown over the occiput, scapulae, elbows, sacrum or heels LINES/TUBES: LIJ TLC (09/30), Albarran (09/30), ETT (09/30), PIV DATA Recent Labs Lab 10/01/151934 WBC 16.63* RBC 3.59* HGB 9.4* HCT 29.1* MCV 81.1 MCH 26.2* MCHC 32.3 RDW 39.4 PLT 43* MPV 10.1 BANDSABS 0.67* MORPH 1+ Recent Labs Lab 10/02/15 0330 10/01/15 2254 10/01/15 2105 10/01/151934 NA 124* 122* 122* 120* K 4.0 -- -- 4.5 CL 88* -- -- 87* CO2 24 -- -- 22* ANIONGAP 15 -- -- 15 GLUF 143* -- -- 112* BUN 70* -- -- 75* CREATININE 1.5* -- -- 1.9* BCR 47 -- -- 39 CA 7.1* -- -- 5.9* ALB 1.7* -- -- 1.5* GLOB -- -- -- 3.6 AG -- -- -- 0.4* PROT 5.9* -- -- 5.1* BILITOT 3.4* -- -- 3.4* ALT 133* -- -- 129* AST 176* -- -- 192* EGFR 58* -- -- 44* PHOS 5.9* -- -- -- MG 3.1* -- -- -- Recent Labs Lab 10/01/15 1935 INR 1.6 IMAGING Xr Chest 1 View 10/01/2015 1. Interval placement of a central venous catheter from the left IJ route in g ood position with no pneumothorax to suggest complication of the procedure. 2. Remainder th e study is otherwise unchanged compared to the prior examination. X-ray Chest Ap Only 10/01/2015 1. Tubes and lines, as above. No pneumothorax. 2. Multifocal bilateral nodula r infiltrates, suggesting septic emboli. 3. Small bilateral pleural effusions. Electronica lly signed by Delgado Pickett MD on 10/01/2015 7:49 PM PROBLEM LIST Principal Problem: Sepsis (HCC) Active Problems: Hyposmolality and/or hyponatremia MARCEL (acute kidney injury) (HCC) Leucocytosis Thrombocytopenia (HCC) Toxic metabolic encephalopathy Acute respiratory failure with hypoxia (HCC) Heroin abuse Methamphetamine abuse Tobacco abuse Acute septic pulmonary embolism (HCC) Acute infective endocarditis Resolved Problems: * No resolved hospital problems. * ASSESSMENT & PLAN NEURO: Toxic metabolic and septic encephalopathy - supportive, treat with antibiotics. See ID p ngoc. Possible meningitis - LP performed at OSH (09/30). CSF cell count: WBC 0, RBC 3. Started on CTX and Vancomycin -continue for now. Brain and CTL-spine MRI to rule out septic emboli o r abscess/collection given the history of neck & back pain and weakness. Follow up results. Heroin and methamphetamine abuse - will need counseling and rehabiltation once medically stable CV: Sepsis, infective endocarditis - Echo ordered to evaluate for vegetations. IV drug use p uts him at high risk for right-sided endocarditis Keep MAP >65, start pressors for hypotension. PULM: Acute hypoxemic respiratory failure, intubated for airway protection - Continue with vikram g protective ventilatory strategy, TV 6-8 cc/kg/IBW. Continue ventilator bundle Septic pulmonary emboli - See ID plan GI/NUTRITION: NPO for now. Elevated bilirubin - likely from sepsis. Recheck in AM. RENAL/LYTES: MARCEL (acute kidney injury) - Avoid nephrotoxins and renally dose medications Albarran for strict I&Os Hyponatremia - initial Na of 114 (09/30 at 14:35), increase by no more than 4-6 in the fi rst 24 hours (10/01 at 14:35 goal of 120) to prevent ODS. Serial Na checks q2h. Most recent Na of 124 -increased D5W to 200 mL/hr, free water flushes 200 q2h and DDAVP given. ID: Sepsis, infective endocarditis, leucocytosis - Blood and sputum cultures obtained. Curre ntly on ceftriaxone and vancomycin (ENDOSCOPE TECHNICIAN dosing). ID following. Check procalcitonin in AM. Fo llow up [facility] HEME: Thrombocytopenia - likely from sepsis. Hold heparin, transfused with 1 u platelet Coagulopathy - INR 1.6, likely from sepsis. Monitor. Monitor CBCs and coags. Transfusion goal <7 g/dL. ENDO: Blood glucose goal 100-180 mg/dL, start SSI if BG >180 x 2 MUSC/SKIN: Reviewed skin cares with nursing. Mobilize when able PT/OT PROPHYLAXIS: Stress ulcer prophylaxis: H2 dipak DVT prophylaxis: SCDs, avoid heparin due to thrombocytopenia VAP bundle: chlorhexadine oral care, HOB >30 degrees. Disposition: ICU cares. Updated girlfriend and sister both present at bedside. Follow up MRI and culture results. Code Status: Full Code *Please bill 40 minutes of critical care time spent evaluating the patient, reviewing the d michael and formulating a plan exclusive of all other procedures. Ivan Munoz MD 10/02/2015 onversion Trans action, Provider Unknown - 10/01/2015 10:41 PM PDT Progress Notes by Abran Tovar RPH at 10/01/152240 Author: Abran Tovar RPH Service: (none) Author Type: Pharmacist Filed: 10/01/152240 Date of Service: 10/01/152240 Status: Signed Bisque Brusher: Abran Tovar RPH (Pharmacist) Clinical Pharmacy Note: Renal Monitoring Yang Ridley, 30 y.o. male Ht Readings from Last 1 Encounters: 10/01/15 1.702 m (5' 7") Wt Readings from Last 1 Encounters: 10/01/15 69.5 kg (153 lb 3.5 oz) CREATININE: 1.9 mg/dL ABNORMAL (10/01/151934) Estimated creatinine clearance - 52.2 mL/min Pharmacy dosing for renal function per Dr. Thomas Reviewed current medication orders. Vancomycin protocol was initiated with appropriate leonor al dosing guidelines for CrCl 52ml/min. No other regimen adjustments are required at this time. Pharmacy will continue to follow patient for renal dose adjustment needs. Michael Tovar RPh 10/01/2015 10:39 PM onver patti Transaction, Provider Unknown - 10/01/2015 10:30 PM PDT Progress Notes by Abran Tovar RPH at 10/01/152229 Author: Abran Tovar RPH Service: (none) Author Type: Pharmacist Filed: 10/01/152229 Date of Service: 10/01/152229 Status: Signed Bisque Brusher: Abran Tovar RPH (Pharmacist) Initiation of Vancomycin Pharmacy Dosing Yang Ridley 30 y.o. male 1.702 m (5' 7") 69.5 kg (153 lb 3.5 oz) Body mass index is 23.99 kg/(m^2). [place] Body Weight: Adjusted Body Weight: CREATININE Date Value Ref Range Status 10/01/2015 1.9* 0.70 - 1.30 mg/dL Final Comment: Testing performed at [facility];[address] [place] [address];[place] [address] Estimated CrCl : CREATININE: 1.9 mg/dL ABNORMAL (10/01/151934) Estimated creatinine clearance - 52.2 mL/min Indications: Cellulitis, Sepsis Dose per Protocol: Loading Dose: Vancomycin 1250 mg (17mg/kg TBW) IV Q12H, for 2 doses, then Q 24 Hours. First Dose to be Given: 0200 on 10/02/2015 Vancomycin Trough Due: 1300 on 10/03/2015 Patient received a single 1000mg dose at [facility] on 10/01/2015. Goal Trough for Vancomycin: 15-20 mcg/mL Pharmacist: Michael Tovar 10/01/2015 10:24 PM docume nted in this encounter H&P Notes Ivan Munoz MD - 10/01/2015 8:06 PM PDT H&P by Ivan Munoz MD at 10/01/152005 Author: Ivan Munoz MD Service: Auto Dealer Author Type: Physician Filed: 10/02/15 0107 Date of Service: 10/01/152005 Status: Signed Bisque Brusher: Ivan Munoz MD (Physician) [facility] Service: Auto Dealer Admission History & Physical Yang Ridley 30 y.o. Date of Admission: 10/01/2015 Requesting Physician: Dr. Walters ([facility]), Emergency Department Indication for ICU Admission: Sepsis and respiratory failure History Obtained From: domestic partner, family member - sister, chart review CHIEF COMPLAINT: Fever, chest pain and altered mental status HISTORY OF PRESENT ILLNESS The patient is a 30 y.o. male with significant history of tobacco and drug abuse using jennifer y heroin and methamphetamine, also on Suboxone. He initially presented to [facility] for progressive weakness, lethargy, and generalized pain (mostly his chest, neck, back , knees, ankles and toes) for the past 7 days. She noticed that his ankles and right knee we re swollen but not warm or erythematous. According to his girlfriend, he has been feeling si ck and febrile for the past week with poor PO intake. Yesterday, she noticed that he seemed like he was hallucinating and talking to himself. He was very weak today that she had to ass ist him to get into the car to go the the ED. Exam at OSH was significant for point tenderness at the area of the cervical spine and posi tive Kernig's sign. LP was performed to rule out meningitis. IV antibiotics started, ceftria xone 2 gm and vancomycin [address] head and C-spine x-ray performed, MRI attempted but patient decompensated and was intubated for respiratory failure and airway protection. Significant labs: Na 114 (1435 hrs), BUN 81, Crea 2.48, WBC 19.9, Hb 11.6, Plt 51, Tbili 3. 6, AST 188, ALT 155, LA 1.7. CSF: clear, colorless, WBC 0, RBC 3. Transferred to [facility] for further care. REVIEW OF SYSTEMS Review of systems not obtained due to intubated. PAST MEDICAL HISTORY No past medical history on file. PAST SURGICAL HISTORY No past surgical history on file. ALLERGIES No Known Allergies MEDICATIONS PRIOR TO ADMISSION Prior to Admission medications Not on File FAMILY HISTORY OF SIGNIFICANCE No family history on file. SOCIAL HISTORY History Social History Marital Status: Single Spouse Name: N/A Number of Children: N/A Years of Education: N/A Occupational History Not on file. Social History Main Topics Smoking status: Not on file Smokeless tobacco: Not on file Alcohol Use: Not on file Drug Use: Not on file Sexual Activity: Not on file Other Topics Concern Not on file Social History Narrative No narrative on file PHYSICAL EXAM VITAL SIGNS Temp: [94.8 F (34.9 C)-102 F (38.9 C)] 94.8 F (34.9 C) Heart Rate: [80-115] 80 Resp: [17-29] 24 BP: (85-107)/(50-65) 100/65 mmHg FiO2 : [35 %] 35 % EXAM GEN: intubated, somnolent without sedation on board NEURO: PERRLA, no facial asymmetry, withdraws extremities to painful stimuli, not following commands GCS: E3, VT, M5 =9T HEENT: sclerae clear, slightly icteric, oral mmm, pink, no exudates, ETT and OGT in place NECK: trachea midline, grimaces on palpation of C-spine CV: tachycardic, distant heart sounds, peripheral pulses palpable, cap refill brisk LUNGS: coarse anteriorly, no wheezing, rales or rhonchi, symmetric chest expansion, even/un labored respirations ABD: soft, nondistended, nontender to palpation, no masses EXTR: 1+ ankle edema bilaterally, no clubbing or cyanosis SKIN: cool, clammy, petechial rash bilateral lower extremities; no e/o skin breakdown over the occiput, scapulae, elbows, sacrum or heels LINES/TUBES: LIJ TLC (09/30), Albarran (09/30), ETT (09/30), PIV, IO left LE DATA Recent Labs Lab 10/01/151934 WBC 16.63* RBC 3.59* HGB 9.4* HCT 29.1* MCV 81.1 MCH 26.2* MCHC 32.3 RDW 39.4 PLT 43* MPV 10.1 BANDSABS 0.67* MORPH 1+ Recent Labs Lab 10/01/15 2254 10/01/151934 NA 122* < > 120* K -- -- 4.5 CL -- -- 87* CO2 -- -- 22* ANIONGAP -- -- 15 GLUF -- -- 112* BUN -- -- 75* CREATININE -- -- 1.9* BCR -- -- 39 CA -- -- 5.9* ALB -- -- 1.5* GLOB -- -- 3.6 AG -- -- 0.4* PROT -- -- 5.1* BILITOT -- -- 3.4* ALT -- -- 129* AST -- -- 192* EGFR -- -- 44* < > = values in this interval not displayed. Recent Labs Lab 10/01/151934 INR 1.6 IMAGING X-ray Chest Ap Only 10/01/2015 1. Tubes and lines, as above. No pneumothorax. 2. Multifocal bilateral nodula r infiltrates, suggesting septic emboli. 3. Small bilateral pleural effusions. Electronica lly signed by Delgado Pickett MD on 10/01/2015 7:49 PM PROBLEM LIST Principal Problem: Sepsis (HCC) Active Problems: Hyposmolality and/or hyponatremia MARCEL (acute kidney injury) (HCC) Leucocytosis Thrombocytopenia (HCC) Toxic metabolic encephalopathy Acute respiratory failure with hypoxia (HCC) Heroin abuse Methamphetamine abuse Tobacco abuse Acute septic pulmonary embolism (HCC) Acute infective endocarditis ASSESSMENT & PLAN NEURO: Toxic metabolic and septic encephalopathy - supportive, treat with antibiotics. See ID p ngoc. Possible meningitis - LP performed at OSH. CSF cell count: WBC 0, RBC 3. Started on CTX and Vancomycin -continue for now. Brain and CTL-spine MRI to rule out septic emboli or absce ss/collection given the history of neck & back pain and weakness. Heroin and methamphetamine abuse - will need counseling and rehabiltation once medically stable CV: Sepsis, infective endocarditis - Echo ordered to evaluate for vegetations. IV drug use p uts him at high risk for right-sided endocarditis Keep MAP >65, start pressors for hypotension. PULM: Acute hypoxemic respiratory failure, intubated for airway protection - Continue with vikram g protective ventilatory strategy, TV 6-8 cc/kg/IBW. Continue ventilator bundle Septic pulmonary emboli - See ID plan GI/NUTRITION: NPO for now. Elevated bilirubin - likely from sepsis. Recheck in AM. RENAL/LYTES: MARCEL (acute kidney injury) - Avoid nephrotoxins and renally dose medications Albarran for strict I&Os Hyponatremia - initial Na of 114 (09/30 at 14:35), increase by no more than 6-8 in the fi rst 24 hours (10/01 at 14:35) to prevent ODS. Serial Na checks q2h. Repeat Na on arrival 120 - started on hypotonic solution. ID: Sepsis, infective endocarditis, leucocytosis - Blood and sputum cultures obtained. Curre ntly on ceftriaxone and vancomycin (ENDOSCOPE TECHNICIAN dosing). ID following. Check procalcitonin in AM. Fo llow up CSF results from [facility]. HEME: Thrombocytopenia - likely from sepsis. Hold heparin, transfused with 1 u platelet Coagulopathy - INR 1.6, likely from sepsis. Monitor. Monitor CBCs and coags. Transfusion goal <7 g/dL. ENDO: Blood glucose goal 100-180 mg/dL, start SSI if BG >180 x 2 MUSC/SKIN: Reviewed skin cares with nursing. Mobilize when able PT/OT PROPHYLAXIS: Stress ulcer prophylaxis: H2 dipak DVT prophylaxis: SCDs, avoid heparin due to thrombocytopenia VAP bundle: chlorhexadine oral care, HOB >30 degrees. Disposition: ICU cares. Updated his girlfriend and sister both present at bedside. Follow up MRI abd culture results. Code Status: Full Code Primary Care Physician: PER PT NONE *Please bill 90 minutes of critical care time spent evaluating the patient, reviewing the d michael and formulating a plan exclusive of all other procedures. Ivan Munoz MD 10/02/2015 documented in th is encounter Procedure Notes Alanna Nelson MD - 11/01/2015 6:45 PM PDT Procedures by Alanna Nelson MD at 11/01/151844 Author: Alanna Nelson MD Service: Otolaryngology Author Type: Physician Filed: 11/01/151848 Date of Service: 11/01/151844 Status: Signed Bisque Brusher: Alanna Nelson MD (Physician) [facility] Service: Otolaryngology-Head and Neck Surgery Procedure Note Pre-procedure diagnosis: voice weakness, evaluate larynx Post-procedure diagnosis:same with normal larynx other than true vocal cord weakness bilate rally with glottic gap on adduction. Procedure: fiberoptic nasopharyngoscopy and laryngoscopy Type of anesthesia: topical local anesthesia Findings: Nasal cavity: pale dry crusting bilat, unable to completely clear when he blew h is nose. Nasopharynx: Unremarkable, smooth and clear. Oropharynx: unremarkable. Larynx: Unremarkable with normal supraglottis and epiglottis, but true vocal cords normal and mobil e but incomplete glottic closure resulting in a moderate glottic gap on adduction. Appears to abduct bilat without problems and no unilateral paresis appreciated. Upper tracheal airw ay clear. Hypopharynx: unremarkable. Description of the procedure: After proper identification, both sides of the nose were sprayed with oxymetazalone and l ess than 1 ml total of 4% topical lidocaine solution. Each side of the nose was examined. The scope was then advanced further into the right side of the nose, whereupon the nasophary nx was viewed. The scope was advance into the oropharynx and this along with the larynx and hypopharynx were visualized from above. The scope was then withdrawn. The patient tolerated this well. Estimated blood loss: no ne. Specimens: none. ALANNA NELSON MD 11/01/2015 6:45 PM Maegan Cobb MD - 10/19/2015 6:48 AM PDT Procedures by Maegan Rod MD at 10/19/1548 Author: Maegan Rod MD Service: Auto Dealer Author Type: Physician Filed: 10/19/15 0651 Date of Service: 10/19/15647 Status: Signed Bisque Brusher: Maegan Rod MD (Physician) Procedure Orders: 1. Central line [[id number]] ordered by Maegan Rod MD at 10/19/1549 Post-procedure Diagnoses: 1. MARCEL (acute kidney injury) ([facility]) [N17.9] [facility] Service: Auto Dealer BEDSIDE PROCEDURE NOTE Central Line Date/Time: 10/19/2015 6:49 AM Performed by: MAEGAN ROD Authorized by: MAEGAN ROD Consent: Written consent obtained. Relevant documents: relevant documents present and verified Test results: test results available and properly labeled Site marked: the operative site was marked Imaging studies: imaging studies available Patient identity confirmed: hospital-assigned identification number Time out: Immediately prior to procedure a "time out" was called to verify the correct phillip ent, procedure, equipment, lab support service tech and site/side marked as required. Indications: vascular access Patient sedated: yes Sedatives: fentanyl and propofol Skin prep agent dried: skin prep agent completely dried prior to procedure Sterile barriers: all five maximum sterile barriers used - cap, mask, sterile gown, sterile gloves, and large sterile sheet Hand hygiene: hand hygiene performed prior to central venous catheter insertion Location details: right internal jugular Patient position: Trendelenburg Catheter type: triple lumen Catheter size: 12 Fr Ultrasound guidance: yes Sterile ultrasound techniques: sterile gel and sterile probe covers were used Number of attempts: 1 Successful placement: yes Post-procedure: line sutured Assessment: blood return through all ports Patient tolerance: Patient tolerated the procedure well with no immediate complications Maegan Rod MD 10/19/2015 Marylou Fermin ARNP - 10/12/2015 6:45 PM PDTFormatting of this note might be different from the origin al. Procedures by YAIR Gambino at 10/12/15 5267 Author: YAIR Gambino Service: Auto Dealer Author Type: Advanced Registere d Nurse Practitioner Filed: 10/12/15 1850 Date of Service: 10/12/151844 Status: Signed Bisque Brusher: YAIR Gambino (Advanced Registered Nurse Practitioner) Procedure Orders: 1. Intubation [[id number]] ordered by YAIR Gambino at 10/12/151845 Post-procedure Diagnoses: 1. Sepsis due to methicillin susceptible Staphylococcus aureus (HCC) [A41.01] 2. Acute respiratory failure with hypoxia (HCC) [J96.01] [facility] Service: Auto Dealer BEDSIDE PROCEDURE NOTE Intubation Date/Time: 10/12/2015 1:45 PM Performed by: MARYLOU HERNANDEZ Authorized by: MARYLOU HERNANDEZ Consent: Verbal consent obtained. Risks and benefits: risks, benefits and alternatives were discussed Consent given by: parent and patient Patient understanding: patient states understanding of the procedure being performed Patient consent: the patient's understanding of the procedure matches consent given Procedure consent: procedure consent matches procedure scheduled Relevant documents: relevant documents present and verified Imaging studies: imaging studies available Required items: required blood products, implants, devices, and special equipment available Patient identity confirmed: verbally with patient and arm band Time out: Immediately prior to procedure a "time out" was called to verify the correct phillip ent, procedure, equipment, lab support service tech and site/side marked as required. Indications: respiratory distress, hypoxemia and respiratory failure Intubation method: direct Preoxygenation: BVM Sedatives: etomidate Laryngoscope size: Bhardwaj 3 Tube size: 8.0 mm Tube type: cuffed Number of attempts: 1 Ventilation between attempts: BVM Cricoid pressure: no Cords visualized: yes Post-procedure assessment: chest rise and CO2 detector Breath sounds: equal Cuff inflated: yes ETT to lip: 22 cm Tube secured with: ETT raygoza Chest x-ray interpreted by me. Chest x-ray findings: endotracheal tube in appropriate position Patient tolerance: Patient tolerated the procedure well with no immediate complications YAIR GAMBINO 10/12/2015 Maegan Cobb MD - 10/10/2015 6:22 AM PDTFormatting of this note might be different from the gregory ginal. Procedures by Maegan Rod MD at 10/10/15621 Author: Maegan Rod MD Service: Auto Dealer Author Type: Physician Filed: 10/10/15622 Date of Service: 10/10/15621 Status: Signed Bisque Brusher: Maegan Rod MD (Physician) Procedure Orders: 1. Chest tube insertion [[id number]] ordered by Maegan Rod MD at 10/10/15621 Post-procedure Diagnoses: 1. Pleural effusion on left [J90] [facility] Service: Auto Dealer BEDSIDE PROCEDURE NOTE Chest Tube Insertion Date/Time: 10/10/2015 6:22 AM Performed by: MAEGAN ROD Authorized by: MAEGAN ROD Consent: Verbal consent obtained. Written consent obtained. Consent given by: patient Patient understanding: patient states understanding of the procedure being performed Patient consent: the patient's understanding of the procedure matches consent given Procedure consent: procedure consent matches procedure scheduled Relevant documents: relevant documents present and verified Test results: test results available and properly labeled Site marked: the operative site was marked Imaging studies: imaging studies available Required items: required blood products, implants, devices, and special equipment available Patient identity confirmed: hospital-assigned identification number Time out: Immediately prior to procedure a "time out" was called to verify the correct phillip ent, procedure, equipment, lab support service tech and site/side marked as required. Indications: pleural effusion Patient sedated: yes Sedation type: anxiolysis Sedatives: fentanyl Preparation: skin prepped with ChloraPrep Placement location: left lateral Scalpel size: 11 Tube size (Luxembourger): 14. Ultrasound guidance: yes Tube connected to: suction Drainage characteristics: bloody Suture material: 0 silk Dressinx4 sterile gauze Patient tolerance: Patient tolerated the procedure well with no immediate complications Maegan Rod MD 10/10/2015 Sumit Anand MD - 10/06/2015 9:40 AM PDT Procedures by Sumit Villa MD at 10/06/15 0986 Author: Sumit Villa MD Service: Auto Dealer Author Type: Physician Filed: 10/06/15 1736 Date of Service: 10/06/15 0940 Status: Signed Bisque Brusher: Sumit Villa MD (Physician) Procedure Orders: 1. Central line [[id number]] ordered by Sumit Villa MD at 10/06/15 0941 Post-procedure Diagnoses: 1. Sepsis due to methicillin susceptible Staphylococcus aureus (HCC) [A41.01] [facility] Service: Auto Dealer BEDSIDE PROCEDURE NOTE Central Line Date/Time: 10/06/2015 9:41 AM Performed by: SUMIT VILLA Authorized by: SUMIT VILLA Consent: Verbal consent obtained. Written consent obtained. Risks and benefits: risks, benefits and alternatives were discussed Consent given by: sister, June. Patient understanding: patient states understanding of the procedure being performed Patient consent: the patient's understanding of the procedure matches consent given Procedure consent: procedure consent matches procedure scheduled Relevant documents: relevant documents present and verified Test results: test results available and properly labeled Required items: required blood products, implants, devices, and special equipment available Patient identity confirmed: arm band Time out: Immediately prior to procedure a "time out" was called to verify the correct phillip ent, procedure, equipment, lab support service tech and site/side marked as required. Indications: dialysis. Anesthesia: local infiltration Local anesthetic: lidocaine 1% without epinephrine Anesthetic total: 5 ml Patient sedated: yes Sedatives: midazolam and fentanyl Vitals: Vital signs were monitored during sedation. Preparation: skin prepped with ChloraPrep Skin prep agent dried: skin prep agent completely dried prior to procedure Sterile barriers: all five maximum sterile barriers used - cap, mask, sterile gown, sterile gloves, and large sterile sheet Hand hygiene: hand hygiene performed prior to central venous catheter insertion Location details: right internal jugular Patient position: Trendelenburg Catheter type: triple lumen (3 lumen 12Fr, 20 cm dialysis catheter) Catheter size: 12 Fr Pre-procedure: landmarks identified Ultrasound guidance: yes Sterile ultrasound techniques: sterile gel and sterile probe covers were used Number of attempts: 1 Successful placement: yes Post-procedure: line sutured and dressing applied Assessment: blood return through all ports, placement verified by x-ray, free fluid flow and no pneumothorax on x-ray Patient tolerance: Patient tolerated the procedure well with no immediate complications Sumit Villa MD 10/06/2015 Maegan Patten MD - 10/06/2015 4:53 AM PDT Procedures by Maegan Rod MD at 10/06/153 Author: Maegan Rod MD Service: Auto Dealer Author Type: Physician Filed: 10/06/15 0457 Date of Service: 10/06/15452 Status: Signed Bisque Brusher: Maegan Rod MD (Physician) Procedure Orders: 1. Chest tube insertion [[id number]] ordered by Maegan Rod MD at 10/06/154 Post-procedure Diagnoses: 1. Pleural effusion, right [J90] [facility] Service: Auto Dealer BEDSIDE PROCEDURE NOTE Chest Tube Insertion Date/Time: 10/06/2015 4:54 AM Performed by: MAEGAN ROD Authorized by: MAEGAN ROD Patient identity confirmed: hospital-assigned identification number Time out: Immediately prior to procedure a "time out" was called to verify the correct phillip ent, procedure, equipment, lab support service tech and site/side marked as required. Indications: pleural effusion Indications comments: r/o empyema Patient sedated: yes Sedation type: anxiolysis Sedatives: fentanyl Anesthesia: local infiltration Local anesthetic: lidocaine 1% without epinephrine Placement location: right lateral Scalpel size: 11 Tube size (Luxembourger): 14 Fr. Ultrasound guidance: yes Tension pneumothorax heard: no Tube connected to: suction Drainage characteristics: purulent Suture material: 2-0 silk Dressinx4 sterile gauze Patient tolerance: Patient tolerated the procedure well with no immediate complications Maegan Rod MD 10/06/2015 Ivan Camargo MD - 10/01/2015 10:44 PM PDT Procedures by Ivan Munoz MD at 10/01/154 Author: Ivan Munoz MD Service: Auto Dealer Author Type: Physician Filed: 10/01/15 2245 Date of Service: 10/01/152243 Status: Signed Bisque Brusher: Ivan Munoz MD (Physician) Procedure Orders: 1. Central line [[id number]] ordered by Ivan Munoz MD at 10/01/15 6474 Post-procedure Diagnoses: 1. Sepsis, due to unspecified organism (HCC) [A41.9] [facility] Service: Auto Dealer BEDSIDE PROCEDURE NOTE Central Line Date/Time: 10/01/2015 10:44 PM Performed by: IVAN MUNOZ Authorized by: IVAN MUNOZ Consent: The procedure was performed in an emergent situation. Verbal consent obtained. Wri tten consent not obtained. Risks and benefits: risks, benefits and alternatives were discussed Consent given by: power of deputy county attorney Patient identity confirmed: arm band Time out: Immediately prior to procedure a "time out" was called to verify the correct phillip ent, procedure, equipment, lab support service tech and site/side marked as required. Indications: vascular access and central pressure monitoring Anesthesia: local infiltration Local anesthetic: lidocaine 1% without epinephrine Anesthetic total: 2 ml Preparation: skin prepped with 2% chlorhexidine Skin prep agent dried: skin prep agent completely dried prior to procedure Sterile barriers: all five maximum sterile barriers used - cap, mask, sterile gown, sterile gloves, and large sterile sheet Hand hygiene: hand hygiene performed prior to central venous catheter insertion Location details: left internal jugular Patient position: flat Catheter type: triple lumen Catheter size: 7.5 Fr Ultrasound guidance: yes Sterile ultrasound techniques: sterile gel and sterile probe covers were used Number of attempts: 2 Successful placement: yes Post-procedure: line sutured and dressing applied Assessment: blood return through all ports, free fluid flow, placement verified by x-ray and no pneumothorax on x-ray Patient tolerance: Patient tolerated the procedure well with no immediate complications Comments: Biopatch placed. Ivan uMnoz MD 10/01/2015 documented in th is encounter Consult Notes Morgan Guillen MD - 11/10/2015 3:15 PM PDT Consults by Morgan Guillen MD at 11/10/15 7078 Author: Morgan Guillen MD Service: (none) Author Type: Physician Filed: 11/10/15 1528 Date of Service: 11/10/15 1515 Status: Signed Bisque Brusher: Morgan Guillen MD (Physician) Consult Orders: 1. Inpatient consult to Psychiatry [[id number]] ordered by Balta Li MD at 11/10/15 1042 PSYCHIATRY CONSULT REFERRING PHYSICIAN: DR. LI REASON FOR REFERRAL: "EVALKUATE SUICIDE IDEATION AND NEED OF SITTER" HPI: Patient is a 30 yo white male who has a diagnosis of opiate use disorder with acute ps ychosis. He was seen and evaluated in his room. Patient states he hasn't had psychotic sympt oms since being transferred to the regular room for days now. He admits struggling with subs tance use. He plans to get treatment at [place]. He denies having mood disorder or psychot ic disorder in the past. He plans to live with his older sister. With his consent, called hi s sister, Mayelin, who collaborated with his story. Patient feels he does not need the sitt er. He is not reporting suicidal or homicidal thoughts. MENTAL STATUS EXAM: Patient is a 30 yo white male who is dressed on hospital gown. He is not in acute distress. There is no apparent abnormal involuntary movement. Speech has normal rate and regular rhyt hm. Language has no disarticulation. Thought process is logical. He describes his mood as "b mehnaz." Affect is appropriate. He is not reporting suicidal or homicidal thoughts. He is no longer endorsing hallucination or delusion for several days now. Insight and judgment appear good. Orientation is intact. ASSESSMENT: Substance induced mood disorder Opiate use disorder RECOMMENDATION: Safety evaluation done. Patient is not reporting suicidal or homicidal thoughts. No longer endorsing hallucination. Feeling much better and having positive outlook in life. Willing to go into substance treatment. He will be living with his older sister, Mayelin, who is comf ortable and aware of this plan. Trial of tapering himself off Seroquel by 50mg decrements every 3-5 days. Encourage to purse substance treatment Patient feels safe and is comfortable to take away his sitter. Discussed with Dr. Li Thank you for this referral. Rick Manjarrez MD - 11/01/2015 6:23 PM PDTFormatting of this note might be different from the origin al. Consults by Alanna Nelson MD at 11/01/151822 Author: Alanna Nelson MD Service: Otolaryngology Author Type: Physician Filed: 11/01/15 1845 Date of Service: 11/01/151822 Status: Signed Bisque Brusher: Alanna Nelson MD (Physician) [facility] Service: Otolaryngology-Head and Neck Surgery Consult Chief Complaint/reason for consultation: Hoarseness, weak voice Requesting physician: Dr. Li, hospitalist Yang Ridley is a 30 y.o. male who I am asked to see in consultation for the above problem s, with a history of meth and heroine abuse who was transferred from [facility] o n 10/01/2015. Eventual diagnosis was endocarditis and septic shock. He was intubated on 09/17 and subsequently extubated on 10/01 and transferred to the floor. However he was plac ed back in the ICU on 10/04 and reintubated on 10/11 for tachypnea, hypoxia and tachycardia. He required hemodialysis, had a renal bx on 10/19 under anesthesia. He was extubated on 10/20 a nd was eventually transferred to the floor on 10/26. He requires supervision and has a sitter at bedside and has been seen by a psychiatrist. In discussion with Dr. Li, he is to be here for about 12-14 days for iv antibiotics and then may be transferred to a detox center. He has been hoarse with a weak voice since his extubation, and he states he had a normal vo ice prior to admission. He states he is on nectar consistency and is able to swallow this w ithout coughing, and is able to ear more solid food; he had a quesadilla earlier today. He d enies throat pain or odynophagia, no dyspnea or hemoptysis. Sitter and nurse are present during history, exam and procedure. Review of Systems REVIEW OF SYSTEMS: General: no fever ENT: Ears-no otalgia Nose- + dryness and nasal congestion Oral/throat: no sore throat or dysphagia Neck: no neck pain Respiratory: no shortness of breath, no hemoptysis Cardiac: no chest pain GI: no abdominal pain, no GE reflux or dyspepsia. Hematology/lymphatic: no bleeding problems Endocrine: no weight change Allergies Allergen Reactions Ketamine Hallucinations No current facility-administered medications on file prior to encounter. No current outpatient prescriptions on file prior to encounter. Past Medical History Diagnosis Date Illicit drug use, continuous Past Surgical History Procedure Laterality Date Gum surgery A CHILD History Social History Marital Status: Single Spouse Name: N/A Number of Children: N/A Years of Education: N/A Occupational History Not on file. Social History Main Topics Smoking status: Current Every Day Smoker Smokeless tobacco: Not on file Alcohol Use: Not on file Drug Use: Yes Special: Heroin, Methamphetamines Sexual Activity: Not on file Other Topics Concern Not on file Social History Narrative Family History Problem Relation Age of Onset Kidney disease Neg Hx Objective: Vital Signs: BP 133/98 mmHg | Pulse 120 | Temp(Src) 97.5 F (36.4 C) (Oral) | Resp 20 | Ht 1.702 m (5' 7") | Wt 59.1 kg (130 lb 4.7 oz) | BMI 20.40 kg/m2 | SpO2 99% EXAM: General: WD WN in no acute distress. Communication ability: communicates well, very weak, breathy voice with some degree of hoar seness, but mostly decreased vocal projection. HEENT: normal cephalic, atraumatic Eyes: EOMI, no nystagmus, PERRLA Nose-external: midline and unremarkable Nose-intranasal: unremarkable other than dried pale crusting which he tried to blow out. Oral cavity: clear, other than some dried food particles on hard palate. No trismus, no drooling. Oropharynx: clear Tonsils: 1+ smooth bilat, barely visible. Neck nodes: no adenopathy Neck structures: full range of motion, normal laryngeal crepitus with side to side motion. Salivary glands: soft and symmetric Thyroid: no mass or nodule Respiratory: normal respiratory effort, no retractions, no stridor Neurologic: Cranial nerves II-XII intact and symmetric Psych/mood: Alert and responds to questions appropriately; seems to have a normal affect. Assessment: Patient Active Problem List Diagnosis Sepsis (HCC) Hyposmolality and/or hyponatremia MARCEL (acute kidney injury) (HCC) Leucocytosis Thrombocytopenia (HCC) Toxic metabolic encephalopathy Acute respiratory failure with hypoxia (HCC) Heroin abuse Methamphetamine abuse Tobacco abuse Acute septic pulmonary embolism (HCC) Acute infective endocarditis Moderate protein-calorie malnutrition (HCC) Hallucination, visual Severe protein-calorie malnutrition (HCC) Hoarseness Plan: ENT ASSESSMENT AND DISCUSSION: Hoarseness, vocal weakness, possibly due to bilateral vocal cord weakness but positive move ment noted bilaterally, and may be related to a nonspecific generalized laryngeal weakness f rom recent illnesses. Does not appear to have intubation induced trauma or recurrent laryng eal nerve weakness, since he has good vocal cord abduction and is able to adduct his cords, but there is a significant glottic gap on adduction leading to the weak/breathy quality to h is voice. No lesion or mass noted, and upper airway is patent and clear. Fiberoptic laryngo logy done (see separate procedure note). Recommend he been seen by a speech therapist to help strengthen his voice improve vocal pro jection. This may take time to further improve and along with inpatient speech therapy, he w ill likely need outpatient therapy once discharged. Also has considerable nasal dryness, possibly related to prior nasal cannula O2 and dry wea ther currently and recommend saline nasal qid or more to the nose. No other recommendations from an ENT perspective and will follow prn. ALANNA NELSON MD 11/01/2015 6:23 PM henFemi MD - 3:51 PM PDT Consult* by Femi Vaughan MD at 10/30/15 1590 Author: Femi Vaughan MD Service: Interventional Radiology Author Type: Physician Filed: 10/30/15 7729 Date of Service: 10/30/15 1551 Status: Signed Bisque Brusher: Femi Vaughan MD (Physician) Interventional Radiology Consult Note Patient Name: Yang Ridley Date of : 1985 Requesting Provider: Apolonia Walters Reason for Consultation: Removal of hemodialysis catheter History of Present Illness: Patient is a 30 y.o. male with history of renal insufficiency who presents with improved re nal function and no longer needs hemodialysis catheter. Also, patient noted to have fever an d tachycardia. Hospital Problem List: Patient Active Problem List Diagnosis Sepsis (HCC) Hyposmolality and/or hyponatremia MARCEL (acute kidney injury) (HCC) Leucocytosis Thrombocytopenia (HCC) Toxic metabolic encephalopathy Acute respiratory failure with hypoxia (HCC) Heroin abuse Methamphetamine abuse Tobacco abuse Acute septic pulmonary embolism (HCC) Acute infective endocarditis Moderate protein-calorie malnutrition (HCC) Hallucination, visual Severe protein-calorie malnutrition (HCC) Review of Systems: Negative except HPI Code Status: Full Code Past Medical History: Past Medical History Diagnosis Date Illicit drug use, continuous Past Surgical History: Past Surgical History Procedure Laterality Date Gum surgery A CHILD Family History: Family History Problem Relation Age of Onset Kidney disease Neg Hx Social History: History Social History Marital Status: Single Spouse Name: N/A Number of Children: N/A Years of Education: N/A Social History Main Topics Smoking status: Current Every Day Smoker Smokeless tobacco: Not on file Alcohol Use: Not on file Drug Use: Yes Special: Heroin, Methamphetamines Sexual Activity: Not on file Other Topics Concern None Social History Narrative None Medications and Allergies: Current Medications: clonazePAM 1 mg Oral TID fentaNYL 1 patch Transdermal Q72H lidocaine 1 mL Intradermal Once lidocaine-EPINEPHrine 1 mL Infiltration Once Magnesium 500 mg Oral BID metoprolol 75 mg Oral BID nafcillin 2 g Intravenous Q4H QUEtiapine 150 mg Oral QAM QUEtiapine 150 mg Oral QPM sodium chloride 10 mL Intravenous 2 times per day sodium chloride (IV) 50 mL/hr at 10/30/15 1540 No prescriptions prior to admission Allergies: Allergies Allergen Reactions Ketamine Hallucinations Labs: Admission on 10/01/2015 No results displayed because visit has over 200 results. ] Imaging/Procedures: Xr Chest 1 View 10/24/2015 YANG KEYANA 1985 30 years XR CHEST 1 VIEW 10/24/2015 5:36 AM INDICATION: Sh ortness of breath COMPARISON: 10/22/2015 and prior exams dating back to 10/17/2015. TECHNIQUE : Chest 1 view, AP view of the chest FINDINGS: Cardiomediastinal silhouette is unchanged i n appearance. Lines are unchanged in position. Slight worsening of right lower and midlung a irspace opacification. Bilateral patchy airspace opacities are demonstrated again, right gre ater than left. Small bilateral pleural effusions, unchanged. No pneumothorax is evident. 10/24/2015 1. Lines are unchanged in position. 2. Slight interval worsening of right lowe r and mid lung airspace disease. X-ray Chest Picc Line 10/25/2015 YANG RIDLEY XR CHEST PICC LINE 10/25/2015 2:15 PM HISTORY: 30 years. Male. Tu bes/line position TECHNIQUE: XR CHEST PICC LINE. 1 view(s) obtained. COMPARISON: 10/23/2014 FINDINGS: Normal cardiac size. Right internal jugular approach double lumen vascular jamia ter in situ with tip projecting over expected location of superior cavoatrial junction. Left -sided PICC line in situ with tip projecting over expected location of right atrium. Improvi ng diffuse interstitial opacities in both lungs. Bilateral patchy interstitial and airspace opacities in both lungs, right greater than left. Small bilateral pleural effusions. No pneu mothorax. 10/25/2015 1. Small bilateral pleural effusions. Improving pulmonary edema. 2. Multifocal patchy interstitial and airspace opacities in both lungs consistent with known septic embol i and multifocal pneumonia. 3. PICC line in situ with tip projecting over expected location of right atrium. 4. Additional findings as detailed above. Physical Examination: Filed Vitals: 10/30/15 1529 BP: Pulse: Temp: 101.9 F (38.8 C) Resp: SpO2: APPEARANCE: AAO X 3 HEENT: Normal LUNGS: Clear to auscultation and percussion; CV: Heart sounds are normal. Regular rate and rhythm without murmur, gallop or rub. ABD: soft, non-tender, without masses or organomegaly EXT: normal strength, tone, and muscle mass NEURO: normal without focal findings, mental status, speech normal, alert and oriented x3, STEVIE and reflexes normal and symmetric Assessment and Plan: 30 yo man with right-sided tunneled HD catheter and improvement of renal function no longer needing HD. - Skin surrounding catheter site prepped and draped in sterile fashion. Catheter removed in its entirety. Tip cut and sent for culture in sterile container. Thank you for this consultation. 40 minutes of clinical time spent, majority of which included education, counseling and cook short order rdinating care. Dr. Femi Vaughan MD Vascular and Interventional Radiology Jose Bueno MD - 10/26/2015 6:15 PM PDTFormatting of this note might be different from the or iginal. Consults by Rodolfo Salguero MD at 10/26/151814 Author: Rodolfo Salguero MD Service: (none) Author Type: Physician Filed: 03/28/16 1239 Date of Service: 10/26/151814 Status: Signed Bisque Brusher: Rodolfo Salguero MD (Physician) Related Notes: Original Note by Rodolfo Salguero MD (Physician) filed at 10/26/151818 Consult Orders: 1. Inpatient consult to Psychiatry [[id number]] ordered by YAIR Gambino at 11/02 0850 REASON FOR CONSULTATION Hallucinations. HISTORY OF PRESENT ILLNESS The patient is a 30-year-old male. He was lying in bed. The patient reported that for the last few days he has been seeing things. Sometimes he feels he is in a boat and it is sailing and that scares him and he gets agitated. The patient also stated that he was doi ng fine before the last few days since he started having hallucinations, but other than that denies any other previous history of psychiatric problems. The patient's sister was also pr esent in the room. She also agreed that her brother was doing okay as far as psychiatric iss ues are concerned. He has a longstanding history of drug use and has been using IV methamphe tamine, heroin, and had multiple medical problems secondary to that and had been admitted in the hospital. He is in the ICU. But she also denied that he had any psychiatric problems or was treated for any reason. But currently they are concerned about his hallucinations. I sp eda with the patient's piercing artist and he also reported that the patient was doing better as far as medical issues are concerned but gradually is becoming more confused, agitated at ti mes. He received ketamine injection for his severe agitation and he has been currently takin ericka Serozital. The patient's hallucinations are decreased but they are concerned about it from the long-term point of view. MENTAL STATUS EXAMINATION The patient is a 30-year-old male lying comfortably in bed. Speech was slow, very low volume. Mood described as "fine." Affect was restricted. Flow of thought was coherent, goal directed. Thought content: Denies any suicidal or homicidal ideas. Denies auditory or v isual hallucinations at the time of interview but had hallucination before and no delusional thoughts. His insight and judgment are fair towards illness the treatment. Fund of christina corbett was okay. Language skills are okay. Gait was not observed as the patient was lying in bed but has been in the ICU for the last 23+ days. DIAGNOSES Psychosis, not otherwise specified. Rule out delirium. ASSESSMENT, PLAN, AND RECOMMENDATIONS The patient has a longstanding history of polysubstance abuse and also IV drug use and has had multiple medical problems secondary to that, and he is gradually improving from a medica l standpoint but started developing hallucinations a few days ago. He is currently taking Se roquel 100 mg twice a day. I discussed with the hospitalist about continuation of Seroquel a nd increase the dose to 200 at night if agitation and hallucinations increased. The patient was also encouraged to put more effort in his physical rehabilitation; and if the patient fu rther needs psychiatric consult, they will call us. Otherwise will continue the current medi cines and use Haldol as needed; and once the patient is transferred to the medical floor and if he is still having psychiatric issues, consider inpatient hospitalization. But the patie nt with benefit from drug rehabilitation program as he himself voiced that and also his sist er said that he has said that he wants to go inpatient drug rehabilitation program. That in my opinion is a good idea and it will benefit him. Thanks of the consult. Mandeep Heard MD - 10/21/2015 3:47 PM PDTFormatting of this note might be different from the origin al. Consult* by Femi Vaughan MD at 10/21/15 6861 Author: Femi Vaughan MD Service: Interventional Radiology Author Type: Physician Filed: 10/21/15 1600 Date of Service: 10/21/151546 Status: Signed Bisque Brusher: Femi Vaughan MD (Physician) Interventional Radiology Consult Note Patient Name: Yang Ridley Date of : 1985 Requesting Provider: Dr. Delfino Vora M.D. Reason for Consultation: Need for hemodialysis catheter History of Present Illness: Patient is a 30 y.o. male with history of substance abuse, endocarditis who presents with w orsening renal function necessitating hemodialysis. Etiology not entirely clear and s/p juna carlos l biopsy. Currently receiving hemodialysis via right-sided temporary hemodialysis catheter. Hospital Problem List: Patient Active Problem List Diagnosis Sepsis (HCC) Hyposmolality and/or hyponatremia MARCEL (acute kidney injury) (HCC) Leucocytosis Thrombocytopenia (HCC) Toxic metabolic encephalopathy Acute respiratory failure with hypoxia (HCC) Heroin abuse Methamphetamine abuse Tobacco abuse Acute septic pulmonary embolism (HCC) Acute infective endocarditis Moderate protein-calorie malnutrition (HCC) Review of Systems: Negative except HPI Code Status: Full Code Past Medical History: Past Medical History Diagnosis Date Illicit drug use, continuous Past Surgical History: Past Surgical History Procedure Laterality Date Gum surgery A CHILD Family History: Family History Problem Relation Age of Onset Kidney disease Neg Hx Social History: History Social History Marital Status: Single Spouse Name: N/A Number of Children: N/A Years of Education: N/A Social History Main Topics Smoking status: Current Every Day Smoker Smokeless tobacco: Not on file Alcohol Use: Not on file Drug Use: Yes Special: Heroin, Methamphetamines Sexual Activity: Not on file Other Topics Concern None Social History Narrative None Medications and Allergies: Current Medications: clonazePAM 1 mg Oral BID famotidine 20 mg Oral Daily gentamicin Topical Daily heparin (porcine) 5000 unit/0.5mL 5,000 Units Subcutaneous 3 times per day lidocaine 10 mL Intradermal Once nafcillin 2 g Intravenous Q4H nystatin 5 mL Mouth/Throat 4x Daily QUEtiapine 100 mg Oral QAM QUEtiapine 100 mg Oral QPM sodium bicarbonate buffer 5 mL Infiltration Once sodium chloride 10 mL Intravenous 2 times per day sodium chloride 10 mL Intravenous 2 times per day sodium citrate anticoagulant 4 % 6 mL Intracatheter Daily dexmedetomidine in NS 1.5 mcg/kg/hr (10/21/15 1216) fentaNYL in NS 5 mcg/mL 200 mcg/hr (10/21/15 1242) sodium chloride (IV) 15 mL/hr at 10/14/15 1547 No prescriptions prior to admission Allergies: Allergies Allergen Reactions Ketamine Hallucinations Labs: Admission on 10/01/2015 No results displayed because visit has over 200 results. ] Imaging/Procedures: Ct Abdomen Pelvis Without Contrast 10/19/2015 EXAM: CT ABDOMEN AND PELVIS EXAM DATE: 10/19/2015 03:42 AM. CLINICAL HISTORY: S eptic emboli, abdominal distention and pain COMPARISONS: 10/05/2015. TECHNIQUE: Routine ax ial helical CT imaging was performed through the abdomen and pelvis with oral but without IV contrast. Reconstructions: Coronal and sagittal. In accordance with CT protocol optimizati on, one or more of the following dose reduction techniques were utilized for this exam: auto mated exposure control, adjustment of mA and/or KV based on patient size, or use of iterativ e reconstructive technique. FINDINGS: Lung Bases: Decreasing loculated pleural effusions a nd multifocal airspace opacities again noted, consistent with septic emboli. Noncontrast ab dominal organs: Grossly stable and unremarkable noncontrast appearance to the liver, gallbla dder, pancreas, adrenals, kidneys, and spleen. Peritoneal Cavity: Long segment of wall thic kening involving the mid to distal ileum and right colon. Mild diffuse mesenteric edema and free fluid. No gross free air. No obstruction. Pelvic Organs: No bladder stones or wall thi ckening. Noncontrast images of the visualized pelvic organs are unremarkable. Vasculature: Unremarkable. Other: Severe generalized anasarca. 10/19/2015 1. Long segment of wall thickening involving the mid to distal ileum and right colon. This can be seen with infectious, inflammatory, or ischemic enteritis. 2. Mild diff use mesenteric edema and free fluid. This is likely mostly secondary to patient's underlying severe anasarca. 3. Decreasing pleural effusions and evidence of septic pulmonary emboli an d at the lung bases. RADIA Electronically signed by Abran Calderon MD on Oct 19 2015 4 :13AM Referring Provider Line: [phone] ID: [id number] X-ray Abdomen Ap 10/19/2015 YANG RIDLEY 1985 XR ABDOMEN 1 VIEW 10/19/2015 6:17 PM INDICATION: Orogastri c tube placement COMPARISON: CT, 10/19/2015 TECHNIQUE: Abdominal series, 1 view, single AP v iew of the abdomen FINDINGS: The tip of an orogastric tube terminates in the stomach. Demetri nting of the right lateral costophrenic angle is consistent with pleural fluid. Nodular opac ities are seen in the lower lung bilaterally. 10/19/2015 1. Orogastric tube terminates in the stomach. X-ray Abdomen 1 View 10/18/2015 YANG RIDLEY XR ABDOMEN 1 VIEW 10/18/2015 6:04 AM HISTORY: Abdominal pain. TE CHNIQUE: Supine views of the abdomen, numbering two. COMPARISON: Abdominal radiograph October 11, 2015. FINDINGS: No free intraperitoneal air seen. A nasogastric tube is identified, the tip overlying the gastric body. Some gas is seen within a nondistended bowel loop in the mi d lower abdomen. A small amount of gas seen within nondistended small bowel in the mid lower abdomen. No pathologic calcifications are observed. 10/18/2015 1. Nonspecific nonobstructed bowel gas pattern. 2. Nasogastric tube, as abov e. X-ray Chest 1 View 10/19/2015 YANG RIDLEY XR CHEST 1 VIEW 10/19/2015 6:59 AM HISTORY: Line placement. TECHNI QUE: One view of the chest FINDINGS: Compared with 10/17/2015. Endotracheal tube tip is 7 cm above the heidi. Nasogastric tube tip in the stomach. Central lines are unchanged in posit ions. There are persistent small bilateral pleural effusions, slightly increased on the righ t was fluid in the fissure. Heart size is normal. There are persistent mild to moderate patc hy bilateral infiltrates or edema with little significant change. 10/19/2015 1. Slight increase in size of the small right pleural effusion with fluid track ing in the fissure. Otherwise stable chest. Xr Chest 1 View 10/17/2015 History: 30 years old Male with respiratory failure, pain. Sepsis. Technique: Portable AP upright radiographic examination of the chest, obtained at 5:02 on 17 October 2015. Prior study for comparison -- 5:07. 14 October 2015. Findings: Cardiomediastinum stable medi astinum without cardiomegaly. Support equipment endotracheal tube, right IJ catheter, enter ic tube-stable and in radiographically appropriate distributions. EKG leads and support tubi ng noted also. PICC line, unchanged Lungs are stably hypoinflated with bilateral small ple ural effusions. Patchy and nodular infiltrative disease throughout all lung distributions, n ot convincingly changed. Bones and soft tissues stable. 10/17/2015 1. Stable support equipment 2. Stable patchy and nodular inflammatory infiltr ates throughout all lung barry, with stable bibasilar pleural effusions Electronically sig guille by Boogie Emery MD on 10/17/2015 7:[address] Needle Biopsy Kidney 10/20/2015 HISTORY: Multidrug abuse, with septic cardiac valve, septicemia, multiorgan fail ure, now improving, but with persistent anuria. COMPARISON: CT abdomen and pelvis 10/19/15. TECHNIQUE: Consent was obtained over the phone from the patient's sister Carly Carter. Inte nded biopsy of the inferior pole of the LEFT kidney with possible complications of postbiops y bleeding, infection, with rare incidence of arteriovenous fistula were described over the phone. Informed consent was obtained, verified over the phone by the attending nurse. The ar ea was marked prior to initiation of procedure. FINDINGS: Patient was placed [id number] on the CT table. Sedation was provided by anesthesia. Skin over the inferior pole of the l eft kidney was marked, prepped, draped in usual sterile fashion. Skin, subcutaneous, and maite p tissues were anesthetized using 1% lidocaine buffered with bicarbonate. Under sterile CT guidance, a 17-gauge introducer was advanced into the inferior pole of the left kidney. 4 co res measuring 2.2 cm in length, 18-gauge were obtained, and reviewed real-time by Dr. Smith , and deemed adequate. Initial minimal oozing from the hub of the needle ceased. Surgicel sl urry was injected through the hub of the needle as a precaution. Needle was removed. Postbio psy images are unremarkable. 10/20/2015 1. Successful biopsy of the inferior pole of the left kidney. No complications. Echo Cardiac Adult Complete 10/18/2015 Patient Name: YANG RIDLEY Date of : 1985 Performing Physician: Alan Villanueva MD ------REPORT ADDENDED------ INDICATIONS F/U Tricuspid Endoca rditis CONCLUSIONS 1. Possible mobile vegetation attached to the posterior mitr al valve leaflet. This is a new finding vs prior Echo. Discussed with ICU physician. 2. Mode rate, mobile vegetation attached to the septal tricuspid valve leaflet. FINDINGS -------- E CG rhythm: Resting tachycardia (HR>100bpm). Study: A 2-dimensional transthoracic echocardiog darius with m-mode, spectral and color flow Doppler was perfomed. Study: This was a technicall y adequate study. Left Ventricle: Overall left ventricular systolic function is normal with, an EF between 60 - 65 %. Left Ventricle: The left ventricle cavity size is normal. Left V entricle: Left ventricular wall thickness is normal. Left Ventricle: No regional wall motio n abnormalities. Left Ventricle: The diastolic filling pattern is normal for the age of the patient. Right Ventricle: The right ventricle is mildly enlarged measuring between 3.4 - 3. 7 cm. Right Ventricle: The right ventricular systolic function is normal. Left Atrium: The left atrium is normal in size. Right Atrium: The right atrium is normal in size. Aortic Teresa ve: The aortic valve is trileaflet, and appears anatomically normal. No aortic stenosis or r egurgitation. Mitral Valve: The mitral valve is normal. Mitral Valve: There is trace mitral regurgitation. Mitral Valve: Large, mobile vegetation attached to the posterior mitral teresa ve leaflet. Tricuspid Valve: The tricuspid valve appears structurally normal. Tricuspid Teresa ve: Mild tricuspid regurgitation present. Tricuspid Valve: The right ventricular systolic p ressure (pulmonary artery systolic pressure), as measured by Doppler, is 52.24mmHg. Moderate , mobile vegetation is visualized on the septal leaflet of the tricuspid valve. Tricuspid V alve: Moderate, mobile vegetation attached to the septal tricuspid valve leaflet. Pulmonic V alve: The pulmonic valve is normal. Pulmonic Valve: Trace pulmonic regurgitation. Pericard ium: There is no pericardial effusion. IVC/Hepatic Veins: The IVC is normal size (1.5-2.5cm) and collapses <50% with sniff, consistent with central venous pressures of 10-15mmHg. Aorta : The aortic root, ascending aorta and aortic arch are normal. MEASUREMENTS A o asc: 2.90 cm Ao Diam: 3.13 cm IVC: 1.68 cm LA Diam: 2.82 cm LA Major: 3.88 cm ED V(Teich): 86.49 ml IVSd: 1.06 cm LVIDd: 4.37 cm LVPWd: 1.07 cm LVOT Diam: 2.28 cm %FS: 40.18 % EF(Teich): 71.10 % ESV(Teich): 24.99 ml IVSs: 1.42 cm LVIDs: 2.61 cm LVPWs: 1.69 cm SV(Teich): 61.49 ml RA Major: 3.61 cm RVIDd: 3.49 cm LAESV(A-L): 40 .93 ml LAESV Index (A-L): 22.74 ml/m2 LAAs A2C: 9.60 cm2 LAESV MOD A2C: 19.81 ml LALs A2C: 3.33 cm LAAs A4C: 16.73 cm2 LAESV MOD A4C: 52.07 ml LALs A4C: 4.18 cm HR: 105 .73 BPM AV maxP.75 mmHg AV meanP.76 mmHg AV Vmax: 1.19 m/s AV Vmean: 0.93 m/ s AV VTI: 20.05 cm MAGUI Vmax: 2.13 cm2 MAGUI (VTI): 2.13 cm2 AVAI Vmax: 0.00 cm2/m2 MAGUI I (VTI): 0.00 cm2/m2 LVCI Dopp: 2.40 l/minm2 LVCO Dopp: 4.32 l/min HR: 100.81 BPM LV OT maxP.56 mmHg LVOT meanP.04 mmHg LVSI Dopp: 23.84 ml/m2 LVSV Dopp: 42.91 m l LVOT Vmax: 0.62 m/s LVOT Vmean: 0.47 m/s LVOT VTI: 10.45 cm MV A Jazlyn: 0.76 m/s MV DecT: 195.04 ms MV E Jazlyn: 0.93 m/s MV E/A Ratio: 1.21 E/E' Av.53 E' Av.2 0 m/s E/E' Lat: 4.07 E/E' Sept: 5.10 E' Lat: 0.22 m/s E' Sept: 0.18 m/s P Vein D: 0.24 m/s P Vein S/D Ratio: 2.65 P Vein S: 0.64 m/s HR: 102 BPM PV maxP.57 mmH g PV meanP.30 mmHg PV Vmax: 0.80 m/s PV Vmean: 0.53 m/s PV VTI: 13.82 cm PV maxP .32 mmHg PV Vmax: 1.03 m/s RAP: 10 mmHg RVSP: 52.24 mmHg TR maxP.24 mmHg TR Vmax: 3.24 m/s Under Trimmer: Authenticated by: Alan Villanueva MD Report Date/Sheree e: 10-18-2015 11:41:53 10/18/2015 1. Possible mobile vegetation attached to the posterior mitral valve leaflet. T his is a new finding vs prior Echo. Discussed with ICU physician. 2. Moderate, mobile vegeta tion attached to the septal tricuspid valve leaflet. Echo Anita 10/20/2015 Patient Name: YANG RIDLEY Date of : 1985 Performing Physician: Danyel Kimble MD INDICATIONS R/O PARAVALVULAR ABCESS CONCLUSIONS 1. Over all left ventricular systolic function is normal with, an EF between 65 - 70 %. 2. Severe tr icuspid regurgitation present. 3. Large, mobile vegetation attached to the septal tricuspid valve leaflet. FINDINGS -------- Procedure: Transesophageal echocardiogram with spectral an d color flow Doppler was performed. Procedure: ANITA was done atthe bedside in the fasting st ate. Informed consent was obtained from family (patient was intubated and sedated) after be nefits and risks of the procedure were discussed including but not limited to the potential for esophageal puncture and . After conscious sedation, the transesophageal probe was advanced and placed in the esophagus and multiple projections of the cardiovascular structur es were acquired and recorded. This was followed by advancement of the probe into the stom ach for transgastric imaging. Finally, interrogation of the descending aorta and arch was p erformed. The probe was removed. The patient tolerated the procedure well. There were n o immediate complications. 2 D, pulsed and continuous wave form and color images were inte rpreted in real time. Medications: 3 mg of Versed and Medications: 100 mcg of Fentanyl was given intraveonously for conscious sedation. Study quality: This was a technically adequate study. Left Ventricle: The left ventricle size is normal. Left Ventricle: Left Ventricle: Overall left ventricular systolic function is normal with, an EF between 65 - 70 %. Left Atr ium: The left atrial size is normal. Left Atrium: Normal left atrial appendage without evid ence for thrombi. Right Ventricle: The right ventricle is normal in size measuring < 33 mm. Right Atrium: The right atrial size is normal. Interatrial Septum: No shunt seen with color Doppler. Interatrial Septum: No shunt seen with bubble study. Aortic Valve: The aortic teresa ve is trileaflet, and appears structurally normal. No aortic stenosis or regurgitation. Aor tic Valve: No vegetation visualized. Mitral Valve: The mitral valve is normal. Mitral Valve : Mild mitral regurgitation is present. Mitral Valve: No vegetation visualized. Tricuspid V alve: Severe tricuspid regurgitation present. Tricuspid Valve: The right ventricular systol ic pressure, as measured by Doppler, is 38.97mmHg. Tricuspid Valve: Large, mobile vegetatio n attached to the septal tricuspid valve leaflet. Pulmonic Valve: The pulmonic valve is norm al. Aorta: Ascending aorta, aortic arch and descending thoracic aorta are of normal caliber with no significant atherosclerotic disease. Pulmonary Artery: The pulmonic artery is normal . Pulmonary Veins: All pulmonary veins appear normal. Pulmonary Veins: The flow patterns, m easured by Doppler, appear normal. Pericardium: There is no pericardial effusion. MEASUREME NTS RAP: 10 mmHg RVSP: 38.96 mmHg TR maxP.96 mmHg TR Vmax: 2.69 m /s Under Trimmer: ANGIE Authenticated by: Danyel Kimble MD Report Date/Time: 10-20-2015 13:07:1 9 10/20/2015 1. Overall left ventricular systolic function is normal with, an EF between 65 - 70 %. 2. Severe tricuspid regurgitation present. 3. Large, mobile vegetation attached to th e septal tricuspid valve leaflet. Physical Examination: Filed Vitals: 10/21/15 1300 BP: 116/65 Pulse: 85 Temp: 98.2 F (36.8 C) Resp: 16 SpO2: 100% APPEARANCE: Intubated and sedated HEENT: Normal LUNGS: Clear to auscultation and percussion; CV: Heart sounds are normal. Regular rate and rhythm without murmur, gallop or rub. ABD: soft, non-tender, without masses or organomegaly EXT: normal strength, tone, and muscle mass Consent: Risks, alternatives, and benefits of the procedure were discussed with the patient's sister . All questions were answered and addressed. Signed and verbal consent were given as witness ed by staff. Assessment and Plan: 30 yo man with worsening renal function requiring hemodialysis. - Plan for tunneled HD catheter placement. Thank you for this consultation. 40 minutes of clinical time spent, majority of which included education, counseling and cook short order rdinating care. Dr. Femi Vaughan MD Vascular and Interventional Radiology onversio n Transaction, Provider Unknown - 10/20/2015 3:26 PM PDTFormatting of this note might be di fferent from the original. Consults by Frida Mott RN at 10/20/15 1526 Author: Frida Mott RN Service: Wound/Ostomy Care Author Type: Registered Nurse Filed: 10/20/15 1529 Date of Service: 10/20/15 1526 Status: Signed Bisque Brusher: Frida Mott RN (Registered Nurse) Consult Orders: 1. Wound Care Evaluation and Treat [[id number]] ordered by Ivan Munoz MD at 6 1150 Consulted for bullae to the creases of the anterior hands. These are dry and intact at this time and seem to be firm enough that rupturing is unlikely. No wound care is needed at this time. Frida Mott RN 10/20/2015 3:28 PM CoBlanca millan Jr., MD - 10/20/2015 2:30 PM PDTFormatting of this note might be different from t he original. Consult* by Blanca Arias MD at 10/20/15 1430 Author: Blanca Arias MD Service: (none) Author Type: Physician Filed: 10/20/15 1438 Date of Service: 10/20/15 143 Status: Signed Bisque Brusher: Blanca Arias MD (Physician) [facility] Service: Cardiothoracic Surgery Initial Consult Note Date of Admission: 10/01/2015 Reason for Consultation: Evaluation of tricuspid valve endocarditis Requesting Physician: Dr. Thomas, [employer] Deal[employer] History Obtained From: patient CHIEF COMPLAINT: Respiratory failure/weakness/malaise HISTORY OF PRESENT ILLNESS The patient is a 30 y.o. male with significant past medical history of IVDA transferred her e after presenting at an outside institution with weakness, malaise and respiratory distress which progressed to respiratory failure requiring intubation. He has been diagnosed with ba cteremia and tricuspid valve endocarditis. 10/09/15: Restless on HD this AM. CT scan of chest 10/08/15 reviewed. S/P left pigtail cathet er with 850 cc of drainage. CXR this AM shows good drainage of left pleural space with resid ual small bilateral effusions 10/20/15: Events of last 72 hours reviewed. Remains intubated. Renal failure requiring dialys is. Afebrile. WBC normal. ANITA 10/18 reviewed:Severe TR/Vegetation on septal leaflet. REVIEW OF SYSTEMS Review of Systems Unable to perform ROS Constitutional: Positive for fatigue. Respiratory: Positive for shortness of breath. Cardiovascular: Positive for chest pain and leg swelling. Musculoskeletal: Positive for joint swelling. Neurological: Positive for weakness. Past Medical History Diagnosis Date Illicit drug use, continuous Past Surgical History Procedure Laterality Date Gum surgery A CHILD No Known Allergies No prescriptions prior to admission Scheduled Medications clonazePAM 1 mg Oral BID famotidine 20 mg Oral Daily gentamicin Topical Daily heparin (porcine) 5000 unit/0.5mL 5,000 Units Subcutaneous 3 times per day midazolam 5 mg Intravenous Once nafcillin 2 g Intravenous Q4H nystatin 5 mL Mouth/Throat 4x Daily [START ON 10/21/2015] QUEtiapine 100 mg Oral QAM QUEtiapine 100 mg Oral QPM sodium chloride 10 mL Intravenous 2 times per day sodium citrate anticoagulant 4 % 6 mL Intracatheter Daily Continuous Infusions dexmedetomidine in NS 1.5 mcg/kg/hr (10/20/15 1028) fentaNYL in NS 5 mcg/mL 200 mcg/hr (10/20/15 1105) ketamine (KETALAR) infusion 0.5 mg/kg/hr (10/20/15 1040) propofol sodium chloride (IV) 15 mL/hr at 10/14/15 1547 PRN Medications acetaminophen, albumin human, albuterol, aluminum-magnesium hydroxide-simethicone, diphenhy [id number] oral solution, HYDROmorphone OR HYDROmorphone, ipratropium, lid ocaine, lip moisturizer, LORazepam, metoclopramide, ondansetron OR ondansetron, pancreli pase (Zyw-[id number]-Trpr)12,000 units, promethazine, simethicone, sodium bicarbonate buffer, sodi um bicarbonate, sodium chloride, white petrolatum Family History Problem Relation Age of Onset Kidney disease Neg Hx History Smoking status Current Every Day Smoker Smokeless tobacco Not on file PHYSICAL EXAM Vital Signs: BP 124/75 mmHg | Pulse 91 | Temp(Src) 99.1 F (37.3 C) (Oral) | Resp 14 | Ht 1.702 m (5' 7") | Wt 68.3 kg (150 lb 9.2 oz) | BMI 23.58 kg/m2 | SpO2 99% Temp: [97.3 F (36.3 C)-99.8 F (37.7 C)] 99.1 F (37.3 C) (10/19 1125) BP: (114-156)/(58-98) 124/75 mmHg (10/19 1125) Heart Rate: [91-119] 91 (10/19 1125) Resp: [14-40] 14 (10/19 1125) SpO2: [79 %-100 %] 99 % (10/19 1125) Height: [170.2 cm (5' 7")] 170.2 cm (5' 7") (08/02 0733) Weight: [68.3 kg (150 lb 9.2 oz)] 68.3 kg (150 lb 9.2 oz) (10/19 0430) FiO2 : [25 %-97 %] 97 % (10/19 1409) Physical Exam Constitutional: Vital signs are normal. HENT: Head: Normocephalic and atraumatic. Eyes: Conjunctivae and lids are normal. Neck: Trachea normal and normal range of motion. Neck supple. No JVD present. Cardiovascular: Normal rate and regular rhythm. tachycardic Pulmonary/Chest: Effort normal and breath sounds normal. Abdomina/Gl: Soft. Musculoskeletal: He exhibits edema. Neurological: He is alert. No cranial nerve deficit. Skin: Skin is warm. No cyanosis. 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 ANITA reviewed. No indication for surgical therapy at this time. Medical management. Code Status: Full Code Primary Care Physician: PER PT NONE Thank you for allowing me to participate in the care of this patient. BLANCA ARIAS MD 10/20/2015 onversion Trans action, Provider Unknown - 10/16/2015 1:20 PM PDT Consults by Frida Mott RN at 10/16/15 1320 Author: Frida Mott RN Service: Wound/Ostomy Care Author Type: Registered Nurse Filed: 10/16/15 1326 Date of Service: 10/16/151319 Status: Signed Bisque Brusher: Frida Mott RN (Registered Nurse) Consult Orders: 1. Wound Care Evaluation and Treat [[id number]] ordered by YAIR Eduardo at 6 [phone] [facility] Service: Wound Care Consult Note Hospital Day: LOS: 15 days Post-Op Day: * No surgery found * SUBJECTIVE Patient Summary: Wound care consulted for bullae OBJECTIVE Wound #1: Classification: bullae Location:bilateral arms and legs. Drainage Amount:None Drainage Type: n/a Wound Odor After Wound is Cleaned:None Periwound Skin:moist with perspiration Wound Size:1.5 (cm) Length, 1.5 (cm) Width and 0.1 (cm) Depth largest of bullae Tunneling: none Undermining: none Wound Bed:about half are dry and scabbed, others are fluid filled Wound Exam:dry Wound Infection: purulence filled bullae is suggestive of infection PROBLEM LIST Principal Problem: Sepsis (HCC) Active Problems: Hyposmolality and/or hyponatremia MARCEL (acute kidney injury) (HCC) Leucocytosis Thrombocytopenia (HCC) Toxic metabolic encephalopathy Acute respiratory failure with hypoxia (HCC) Heroin abuse Methamphetamine abuse Tobacco abuse Acute septic pulmonary embolism (HCC) Acute infective endocarditis Moderate protein-calorie malnutrition (HCC) ASSESSMENT & PLAN visual inspection cleansing with NS solution Covered scabbed wound beds with saline moistened Aquacel Ag and secured with roll gauze. Thank you for this consult. Please call if there are any additional questions. Frida Mott RN 1:20 PM 10/16/2015 CoBlanca millan Jr., MD - 10/10/2015 8:43 AM PDTFormatting of this note might be different from t madiha original. Consult* by Blanca Arias MD at 10/10/1543 Author: Blanca Arias MD Service: (none) Author Type: Physician Filed: 10/10/15 0847 Date of Service: 10/10/15842 Status: Signed Bisque Brusher: Blanca Arias MD (Physician) [facility] Service: Cardiothoracic Surgery Initial Consult Note Date of Admission: 10/01/2015 Reason for Consultation: Evaluation of tricuspid valve endocarditis Requesting Physician: Dr. Thomas, Auto Dealer History Obtained From: patient CHIEF COMPLAINT: Respiratory failure/weakness/malaise HISTORY OF PRESENT ILLNESS The patient is a 30 y.o. male with significant past medical history of IVDA transferred her e after presenting at an outside institution with weakness, malaise and respiratory distress which progressed to respiratory failure requiring intubation. He has been diagnosed with ba cteremia and tricuspid valve endocarditis. 10/09/15: Restless on HD this AM. CT scan of chest 10/08/15 reviewed. S/P left pigtail cathet er with 850 cc of drainage. CXR this AM shows good drainage of left pleural space with resid ual small bilateral effusions. REVIEW OF SYSTEMS Review of Systems Constitutional: Positive for fatigue. Respiratory: Positive for shortness of breath. Cardiovascular: Positive for chest pain and leg swelling. Musculoskeletal: Positive for joint swelling. Neurological: Positive for weakness. All other systems reviewed and are negative. Past Medical History Diagnosis Date Illicit drug use, continuous Past Surgical History Procedure Laterality Date Gum surgery A CHILD No Known Allergies No prescriptions prior to admission Scheduled Medications clonazePAM 1 mg Oral BID famotidine 20 mg Oral Daily Or famotidine 20 mg Intravenous Daily gentamicin Topical Daily heparin (porcine) 5000 unit/0.5mL 5,000 Units Subcutaneous 3 times per day midodrine 10 mg Oral TID mirtazapine 15 mg Oral Nightly nafcillin 2 g Intravenous Q4H polyethylene glycol 8.5 g Oral Daily sodium bicarbonate buffer 5 mL Infiltration Once sodium chloride 10 mL Intravenous 2 times per day Continuous Infusions dexmedetomidine in NS 0.7 mcg/kg/hr (10/10/15 0550) PRN Medications acetaminophen OR acetaminophen, albumin human, HYDROmorphone, lip moisturizer, ondanset eliana OR ondansetron, promethazine, sodium chloride, white petrolatum Family History Problem Relation Age of Onset Kidney disease Neg Hx History Smoking status Current Every Day Smoker Smokeless tobacco Not on file PHYSICAL EXAM Vital Signs: BP 124/64 mmHg | Pulse 124 | Temp(Src) 100.2 F (37.9 C) (Oral) | Resp 37 | Ht 1.702 m ( 5' 7") | Wt 69.6 kg (153 lb 7 oz) | BMI 24.03 kg/m2 | SpO2 99% Temp: [98.2 F (36.8 C)-100.2 F (37.9 C)] 100.2 F (37.9 C) (10/09 0815) BP: (101-141)/(57-77) 124/64 mmHg (10/09 829) Heart Rate: [111-136] 124 (10/09 829) Resp: [26-41] 37 (10/09 829) SpO2: [95 %-100 %] 99 % (10/09 829) Weight: [69.6 kg (153 lb 7 oz)] 69.6 kg (153 lb 7 oz) (10/08 141) Physical Exam Constitutional: Vital signs are normal. HENT: Head: Normocephalic and atraumatic. Eyes: Conjunctivae and lids are normal. Neck: Trachea normal and normal range of motion. Neck supple. No JVD present. Cardiovascular: Normal rate and regular rhythm. tachycardic Pulmonary/Chest: Effort normal and breath sounds normal. Abdomina/Gl: Soft. Musculoskeletal: He exhibits edema. Neurological: He is alert. No cranial nerve deficit. Skin: Skin is warm. No cyanosis. 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 Encephalopathy improved after hemodialysis. Left pleural space well drained after pigtail catheter. Continue medical management. Code Status: Full Code Primary Care Physician: PER PT NONE Thank you for allowing me to participate in the care of this patient. BLANCA ARIAS MD 10/10/2015 odionicio, Blanca Orozco Jr., MD - 10/09/2015 9:29 AM PDTFormatting of this note might be different from the origina l. Consult* by Blanca Arias MD at 10/09/15928 Author: Blanca Arias MD Service: (none) Author Type: Physician Filed: 10/09/15 0934 Date of Service: 10/09/15928 Status: Signed Bisque Brusher: Blanca Arias MD (Physician) [facility] Service: Cardiothoracic Surgery Initial Consult Note Date of Admission: 10/01/2015 Reason for Consultation: Evaluation of tricuspid valve endocarditis Requesting Physician: Dr. Thomas, Auto Dealer History Obtained From: patient CHIEF COMPLAINT: Respiratory failure/weakness/malaise HISTORY OF PRESENT ILLNESS The patient is a 30 y.o. male with significant past medical history of IVDA transferred her e after presenting at an outside institution with weakness, malaise and respiratory distress which progressed to respiratory failure requiring intubation. He has been diagnosed with ba cteremia and tricuspid valve endocarditis. Events of last 72 hours reviewed. More alert over the last 48 hours. Increasing respiratory distress. CXR reviewed.Bilateral effusions remain with bilateral densities. REVIEW OF SYSTEMS Review of Systems Constitutional: Positive for fatigue. Respiratory: Positive for shortness of breath. Cardiovascular: Positive for chest pain and leg swelling. Musculoskeletal: Positive for joint swelling. Neurological: Positive for weakness. All other systems reviewed and are negative. Past Medical History Diagnosis Date Illicit drug use, continuous Past Surgical History Procedure Laterality Date Gum surgery A CHILD No Known Allergies No prescriptions prior to admission Scheduled Medications clonazePAM 1 mg Oral BID gentamicin Topical Daily heparin (porcine) 5000 unit/0.5mL 5,000 Units Subcutaneous 3 times per day midodrine 10 mg Oral TID mirtazapine 15 mg Oral Nightly nafcillin 2 g Intravenous Q4H pantoprazole 40 mg Intravenous BID polyethylene glycol 8.5 g Oral Daily sodium chloride 10 mL Intravenous 2 times per day sodium citrate anticoagulant 4 % 6 mL Intracatheter Once in dialysis Continuous Infusions dexmedetomidine in NS 0.5 mcg/kg/hr (10/09/15 1841) PRN Medications acetaminophen OR acetaminophen, albumin human, HYDROmorphone, lip moisturizer, ondanset eliana OR ondansetron, promethazine, sodium chloride Family History Problem Relation Age of Onset Kidney disease Neg Hx History Smoking status Current Every Day Smoker Smokeless tobacco Not on file PHYSICAL EXAM Vital Signs: BP 106/60 mmHg | Pulse 115 | Temp(Src) 100.7 F (38.2 C) (Oral) | Resp 36 | Ht 1.702 m ( 5' 7") | Wt 72 kg (158 lb 11.7 oz) | BMI 24.85 kg/m2 | SpO2 99% Temp: [98.3 F (36.8 C)-100.7 F (38.2 C)] 100.7 F (38.2 C) (10/09 747) BP: (85-138)/(49-76) 106/60 mmHg (10/08 914) Heart Rate: [85-125] 115 (10/08 914) Resp: [24-43] 36 (10/09 747) SpO2: [91 %-100 %] 99 % (10/08 914) Weight: [70.6 kg (155 lb 10.3 oz)-72 kg (158 lb 11.7 oz)] 72 kg (158 lb 11.7 oz) (10/08) Physical Exam Constitutional: Vital signs are normal. HENT: Head: Normocephalic and atraumatic. Eyes: Conjunctivae and lids are normal. Neck: Trachea normal and normal range of motion. Neck supple. No JVD present. Cardiovascular: Normal rate and regular rhythm. tachycardic Pulmonary/Chest: Effort normal and breath sounds normal. Abdomina/Gl: Soft. Musculoskeletal: He exhibits edema. Neurological: He is alert. No cranial nerve deficit. Skin: Skin is warm. No cyanosis. 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 Encephalopathy improved after hemodialysis. I would recommend consideration of repeat CT scan of chest. Code Status: Full Code Primary Care Physician: PER PT NONE Thank you for allowing me to participate in the care of this patient. BLANCA ARIAS MD 10/09/2015 Blanca Garcia Jr., MD - 10/06/2015 8:21 AM PDTFormatting of this note might be different from the origina l. Consult* by Blanca Arias MD at 10/06/15 0821 Author: Blanca Arias MD Service: (none) Author Type: Physician Filed: 10/06/15 0831 Date of Service: 10/06/15 0821 Status: Addendum Bisque Brusher: Blanca Arias MD (Physician) Related Notes: Original Note by Blanca Arias MD (Physician) filed at 10/06/15 0823 [facility] Service: Cardiothoracic Surgery Initial Consult Note Date of Admission: 10/01/2015 Reason for Consultation: Evaluation of tricuspid valve endocarditis Requesting Physician: Dr. Thomas, Auto Dealer History Obtained From: patient CHIEF COMPLAINT: Respiratory failure/weakness/malaise HISTORY OF PRESENT ILLNESS The patient is a 30 y.o. male with significant past medical history of IVDA transferred her e after presenting at an outside institution with weakness, malaise and respiratory distress which progressed to respiratory failure requiring intubation. He has been diagnosed with ba cteremia and tricuspid valve endocarditis. Events of last 72 hours reviewed. Patient develop ed hyponatremia and renal failure. Now back in the ICU. Remains afebrile. REVIEW OF SYSTEMS Review of Systems Constitutional: Positive for fatigue. Respiratory: Positive for shortness of breath. Cardiovascular: Positive for chest pain and leg swelling. Musculoskeletal: Positive for joint swelling. Neurological: Positive for weakness. All other systems reviewed and are negative. Past Medical History Diagnosis Date Illicit drug use, continuous Past Surgical History Procedure Laterality Date Gum surgery A CHILD No Known Allergies No prescriptions prior to admission Scheduled Medications fentaNYL lidocaine buffered 1% 0.5 mL Intradermal Once nafcillin 2 g Intravenous Q6H pantoprazole 40 mg Intravenous BID polyethylene glycol 17 g Oral Daily sennosides 10 mL Oral Nightly sodium bicarbonate buffer 5 mL Infiltration Once sodium bicarbonate buffer 5 mL Infiltration Once sodium chloride 10 mL Intravenous 2 times per day Continuous Infusions dexmedetomidine in NS Stopped (10/06/15 7813) PRN Medications acetaminophen OR acetaminophen, lip moisturizer, morphine, ondansetron OR ondansetr on, promethazine, sodium chloride Family History Problem Relation Age of Onset Kidney disease Neg Hx History Smoking status Current Every Day Smoker Smokeless tobacco Not on file PHYSICAL EXAM Vital Signs: BP 98/54 mmHg | Pulse 90 | Temp(Src) 98.2 F (36.8 C) (Oral) | Resp 29 | Ht 1.702 m (5' 7") | Wt 74.2 kg (163 lb 9.3 oz) | BMI 25.61 kg/m2 | SpO2 97% Temp: [97.3 F (36.3 C)-98.2 F (36.8 C)] 98.2 F (36.8 C) (10/05 0400) BP: (90-133)/(50-90) 98/54 mmHg (10/05 699) Heart Rate: [87-118] 90 (10/05 699) Resp: [28-45] 29 (10/05 699) SpO2: [89 %-99 %] 97 % (10/05 699) Weight: [74.2 kg (163 lb 9.3 oz)] 74.2 kg (163 lb 9.3 oz) (10/04 2029) Physical Exam Constitutional: Vital signs are normal. HENT: Head: Normocephalic and atraumatic. Eyes: Conjunctivae and lids are normal. Neck: Trachea normal and normal range of motion. Neck supple. No JVD present. Cardiovascular: Normal rate and regular rhythm. tachycardic Pulmonary/Chest: Effort normal and breath sounds normal. Abdomina/Gl: Soft. Musculoskeletal: He exhibits edema. Neurological: He is alert. No cranial nerve deficit. Skin: Skin is warm. No cyanosis. 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 I would recom mend repeat echocardiogram and CT chest. Code Status: Full Code Primary Care Physician: PER PT NONE Thank you for allowing me to participate in the care of this patient. BLANCA ARIAS MD 10/06/2015 ordchaz, Blanca Orozco Jr., MD - 10/03/2015 8:04 AM PDTFormatting of this note might be different from the origina l. Consult* by Blanca Arias MD at 10/03/15 0804 Author: Blanca Arias MD Service: (none) Author Type: Physician Filed: 10/03/15 0813 Date of Service: 10/03/15803 Status: Signed Bisque Brusher: Blanca Arias MD (Physician) [facility] Service: Cardiothoracic Surgery Initial Consult Note Date of Admission: 10/01/2015 Reason for Consultation: Evaluation of tricuspid valve endocarditis Requesting Physician: Dr. Thomas, Auto Dealer History Obtained From: patient CHIEF COMPLAINT: Respiratory failure/weakness/malaise HISTORY OF PRESENT ILLNESS The patient is a 30 y.o. male with significant past medical history of IVDA transferred her e after presenting at an outside institution with weakness, malaise and respiratory distress which progressed to respiratory failure requiring intubation. He has been diagnosed with ba cteremia and tricuspid valve endocarditis. He is now extubated in the ICU. He is awake and c omplains of generalized weakness. REVIEW OF SYSTEMS Review of Systems Constitutional: Positive for fatigue. Respiratory: Positive for shortness of breath. Cardiovascular: Positive for chest pain and leg swelling. Musculoskeletal: Positive for joint swelling. Neurological: Positive for weakness. All other systems reviewed and are negative. Past Medical History Diagnosis Date Illicit drug use, continuous Past Surgical History Procedure Laterality Date Gum surgery A CHILD No Known Allergies No prescriptions prior to admission Scheduled Medications cefTRIAXone 2 g Intravenous Q12H pneumococcal 23-valent vaccine 0.5 mL Intramuscular Once Immunization polyethylene glycol 17 g Oral Daily sennosides 10 mL Oral Nightly vancomycin 17 mg/kg Intravenous Q24H Continuous Infusions dexmedetomidine in NS 0.2 mcg/kg/hr (10/02/15 1554) dextrose insulin regular 1 unit/mL 2.8 Units/hr (10/02/152041) sodium chloride (IV) 30 mL/hr at 10/02/151999 PRN Medications acetaminophen OR acetaminophen, dextrose, dextrose, dextrose, dextrose, dextrose, fenta NYL, glucagon, glucagon, insulin regular 1 unit/mL, lip moisturizer, nystatin, nystatin, ond ansetron OR ondansetron, petrolatum Family History Problem Relation Age of Onset Kidney disease Neg Hx History Smoking status Current Every Day Smoker Smokeless tobacco Not on file PHYSICAL EXAM Vital Signs: BP 119/60 mmHg | Pulse 109 | Temp(Src) 100.2 F (37.9 C) (Bladder) | Resp 35 | Ht 1.702 m (5' 7") | Wt 76.8 kg (169 lb 5 oz) | BMI 26.51 kg/m2 | SpO2 94% Temp: [93.7 F (34.3 C)-100.6 F (38.1 C)] 100.2 F (37.9 C) (10/02 599) BP: (100-122)/(58-82) 119/60 mmHg (10/02 599) Heart Rate: [88-115] 109 (10/02 599) Resp: [12-37] 35 (10/02 0552) SpO2: [88 %-100 %] 94 % (10/02 599) Weight: [76.8 kg (169 lb 5 oz)] 76.8 kg (169 lb 5 oz) (10/02 0430) FiO2 : [30 %-35 %] 30 % (10/01 1600) Physical Exam Constitutional: Vital signs are normal. HENT: Head: Normocephalic and atraumatic. Eyes: Conjunctivae and lids are normal. Neck: Trachea normal and normal range of motion. Neck supple. No JVD present. Cardiovascular: Normal rate and regular rhythm. tachycardic Pulmonary/Chest: Effort normal and breath sounds normal. Abdomina/Gl: Soft. Musculoskeletal: He exhibits edema. Neurological: He is alert. No cranial nerve deficit. Skin: Skin is warm. No cyanosis. DATA Echo 10/02/15:Moderate TR/Tricuspid vegetation PROBLEM LIST Principal Problem: Sepsis (HCC) Active Problems: Hyposmolality and/or hyponatremia MARCEL (acute kidney injury) (HCC) Leucocytosis Thrombocytopenia (HCC) Toxic metabolic encephalopathy Acute respiratory failure with hypoxia (HCC) Heroin abuse Methamphetamine abuse Tobacco abuse Acute septic pulmonary embolism (HCC) Acute infective endocarditis Moderate protein-calorie malnutrition (HCC) ASSESSMENT & PLAN Tricuspid valve endocarditis. IV antibiotics per ID service. Mo indication for surgical the rapy at this time. I will follow with you. Code Status: Full Code Primary Care Physician: PER PT NONE Thank you for allowing me to participate in the care of this patient. BLANCA ARIAS MD 10/03/2015 Gonzalez Dsouza MD - 10/02/2015 5:58 PM PDTFormatting of this note might be different from the origin al. Consults by Gonzalez Bhardwaj MD at 10/02/151757 Author: Gonzalez Bhardwaj MD Service: Orthopedic Surgery Author Type: Physician Filed: 10/02/15 1828 Date of Service: 10/02/151757 Status: Signed Bisque Brusher: Gonzalez Bhardwaj MD (Physician) Consult Orders: 1. Inpatient consult to Orthopedics [[id number]] ordered by Carly Thomas DO at 10/02/15 3239 [facility] Service: Orthopedic Surgery Initial Consult Note Date of Admission: 10/01/2015 Reason for Consultation: Bilateral lower extremity swelling/ r/o septic ankle Requesting Physician: Dr. Carly Thomas, Auto Dealer History Obtained From: domestic partner CHIEF COMPLAINT: Bilateral lower extremity swelling HISTORY OF PRESENT ILLNESS The patient is a 30 y.o. male with significant past medical history of IV drug abuse with d aily heroin and methamphetamine, also on Suboxone use, who was transferred from [facility] in [place] for further care due to concerns of sepsis. His girlfriend noted t hat madiha mix feeling sick and febrile over the past week. He first noticed swelling in his feet and ankles 4 days ago, along with red spots forming on his legs 2 days ago. REVIEW OF SYSTEMS Review of systems not obtained due to altered mental status. Past Medical History Diagnosis Date Illicit drug use, continuous Past Surgical History Procedure Laterality Date Gum surgery A CHILD No Known Allergies No prescriptions prior to admission Scheduled Medications cefTRIAXone 2 g Intravenous Q12H chlorhexidine gluconate 15 mL Mouth/Throat Q12H famotidine 20 mg Oral BID Or famotidine 20 mg Intravenous BID lactated ringers 1,000 mL Intravenous Once midazolam 2 mg Intravenous Once pneumococcal 23-valent vaccine 0.5 mL Intramuscular Once Immunization sennosides 10 mL Oral Nightly [START ON 10/03/2015] vancomycin 17 mg/kg Intravenous Q24H Continuous Infusions dexmedetomidine in NS 0.2 mcg/kg/hr (10/02/15 4464) dextrose dextrose 200 mL/hr at 10/02/15 1308 insulin regular 1 unit/mL 3.2 Units/hr (10/02/15 1059) sodium chloride (IV) 30 mL/hr at 10/02/15 1131 PRN Medications acetaminophen OR acetaminophen, dextrose, dextrose, dextrose, dextrose, dextrose, fenta NYL, glucagon, glucagon, insulin regular 1 unit/mL, lip moisturizer, nystatin, nystatin, ond ansetron OR ondansetron, petrolatum Family History Problem Relation Age of Onset Kidney disease Neg Hx History Social History Marital Status: Single Spouse Name: N/A Number of Children: N/A Years of Education: N/A Occupational History Not on file. Social History Main Topics Smoking status: Current Every Day Smoker Smokeless tobacco: Not on file Alcohol Use: Not on file Drug Use: Yes Special: Heroin, Methamphetamines Sexual Activity: Not on file Other Topics Concern Not on file Social History Narrative No narrative on file PHYSICAL EXAM Vital Signs: BP 100/62 mmHg | Pulse 89 | Temp(Src) 97.5 F (36.4 C) (Bladder) | Resp 26 | Ht 1.702 m (5' 7") | Wt 69.1 kg (152 lb 5.4 oz) | BMI 23.85 kg/m2 | SpO2 98% 1.702 m (5' 7") 69.1 kg (152 lb 5.4 oz) Body mass index is 23.85 kg/(m^2). General: WDWN male in NAD. He is lethargic and difficult to arouse, although will follow co mmands. He is sleeping comfortably in bed. Right lower extremity: skin is intact without erythema or ecchymosis. He does have widely d ispersed petechiae, located primarily over the ankle and forefoot. There is +1 edema about t he ankle without any clubbing or cyanosis. He has no ttp about the knee, leg, ankle or foot , except for where an IO catheter was previously placed in his anterior proximal tibia. He has flex/ext in his toes and his sensation is intact to light touch. Left lower extremity: skin is intact without erythema or ecchymosis. He does have widely di spersed petechiae, located primarily over the ankle and forefoot. There is +1 edema about th e ankle without any clubbing or cyanosis. He has no ttp about the knee, leg, ankle or foot. He has flex/ext in his toes and his sensation is intact to light touch. LABORATORY DATA Lab Results Component Value Date WBC 12.62* 10/02/2015 HGB 10.1* 10/02/2015 HCT 31.0* 10/02/2015 PLT 35* 10/02/2015 Lab Results Component Value Date NA 125* 10/02/2015 K 4.0 10/02/2015 CL 88* 10/02/2015 CO2 24 10/02/2015 BUN 70* 10/02/2015 Lab Results Component Value Date INR 1.7 10/02/2015 No results found for: ESR No results found for: CRP PROBLEM LIST Principal Problem: Sepsis (HCC) Active Problems: Hyposmolality and/or hyponatremia MARCEL (acute kidney injury) (HCC) Leucocytosis Thrombocytopenia (HCC) Toxic metabolic encephalopathy Acute respiratory failure with hypoxia (HCC) Heroin abuse Methamphetamine abuse Tobacco abuse Acute septic pulmonary embolism (HCC) Acute infective endocarditis Moderate protein-calorie malnutrition (HCC) ASSESSMENT & PLAN Bilateral foot and ankle swelling While the patient is at risk for potential septic joint at this time the patient does not a ppear to have signs/symptoms consistent with an ankle sepsis. He has no erythema, and has m inimal pain in the ankle and no pain with both passive and active motion. At this time no i ntervention is recommended for his ankle swelling. Please feel free to contact us with ques tions or concerns. We will follow from a distance Code Status: Full Code Primary Care Physician: PER PT NONE Thank you for allowing me to participate in the care of this patient. Gonzalez Bhardwaj MD 10/02/2015 5:58 PM Jeanie Spangler MD - 10/02/2015 2:28 PM PDTFormatting of this note might be different from the origina l. Consult* by Renetta Buck MD at 10/02/15 1420 Author: Renetta Buck MD Service: Nephrology Author Type: Physician Filed: 10/02/15 1506 Date of Service: 10/02/151427 Status: Signed Bisque Brusher: Renetta Buck MD (Physician) [facility] Service: Nephrology Consult Note Date of Admission: 10/01/2015 Requesting Physician: Dr THOMAS, Auto Dealer History Obtained From: chart review, Reason patient could not give history: intubated ; a lso obtained history from sister and girlfriend. I had the privilege to see your patient Mr. Yang Ridley Re: Hyponatremia, MARCEL HISTORY OF PRESENT ILLNESS The patient is a 30 y.o. male with significant history of tobacco and drug abuse using jennifer y heroin and methamphetamine, also on Suboxone. He initially presented to [facility] for progressive weakness, lethargy, and generalized pain for the past 7 days. He not iced that his ankles and right knee were swollen but not warm or erythematous. According to his girlfriend, he has been feeling sick and febrile for the past week with poor PO intake. Yesterday, she noticed that he seemed like he was hallucinating and talking to himself. LP was performed to rule out meningitis. IV antibiotics started, ceftriaxone 2 gm and vanc omycin [address] head and C-spine x-ray performed, patient decompensated and was intuba latasha for respiratory failure and airway protection. Significant labs ON initial presentation : Na 114 (1435 hrs), BUN 81, Crea 2.48, WBC 19.9, Hb 11.6, Plt 51, Tbili 3.6, AST 188, ALT 155, LA 1.7. CSF: clear, colorless, WBC 0, RBC 3. Protein 31. Glucose 50. Culture with no growth t o date Blood cultures are reported to be growing GPCs at [facility] Transferred to [facility] for further care. MRI of brain and spine carried out with limited findi ngs due to non-contrast study. Over next 12-24 hrs, his sodium abruptly improved to a peak of 126 by 6 ma on 10/01 , so co unter measures were started to avoid over correction. Patient received DDAVP X2 X 2 MCG AT 4 AND 8 AM ON 10/01 and is on D5W AT 200 ML/HR . he has never been hospitalized because of low sodium. HE has never been symptomatic because of low sodium. there are no herbal preparation intake; he does not have hx of liver cirrhos is. he does not have hx of CHF, hypothyroidism or adrenal insufficiency.There is no hx of ch ronic diarrhea and no N/V. Review of Systems:He remains intubated. He is off sedation and has been noted to move all extremities. Cannot obtain any other ROS due to intubation. The following portions of the patient's history were reviewed and updated at the time of is dictation as appropriate: allergies, current medications, past family history, past medic al history, past social history, past surgical history and problem list. Physical Exam Blood pressure 108/58, pulse 105, temperature 97.7 F (36.5 C), temperature source Bladd er, resp. rate 27, height 1.702 m (5' 7"), weight 69.1 kg (152 lb 5.4 oz), SpO2 97 %. Intake/Output Summary (Last 24 hours) at 10/02/15 1435 Last data filed at 10/02/15 1200 Gross per 24 hour Intake 2184 ml Output 2090 ml Net 94 ml Constitutional: pt is on mechanical ventilation but is awake. HENT: Normocephalic and atraumatic. No oropharyngeal exudate. Eyes: Mild scleral icterus. Neck: No JVD present. No tracheal deviation present. No thyromegaly present. Cardiovascular: tachycardic, regular rhythm. Exam reveals no gallop and no friction rub. Pulmonary/Chest: No stridor. No respiratory distress. Pt has mild inspiratory wheezes, no rales. Abdominal: Soft. no masses or hepatosplenomegaly. There is no tenderness and no rebound or guarding. Musculoskeletal: pt exhibits Trace edema in lower extremities Lymphadenopathy: there is no cervical adenopathy. Neurological: pt is alert and oriented to person, place, and time. There is no asterixis. N o focal deficits were noted. No facial asymmetry. Skin: Skin is warm and dry. Petechiae noted on lower extremities and he has a " 138" tattoo on left chest wall. Psychiatric: could not be examined. Laboratory Findings Labs have been reviewed since admission. Lab Results Component Value Date BUN 70* 10/02/2015 CREATININE 1.5* 10/02/2015 EGFR 58* 10/02/2015 NA 125* 10/02/2015 K 4.0 10/02/2015 CL 88* 10/02/2015 CO2 24 10/02/2015 CA 7.1* 10/02/2015 PHOS 5.9* 10/02/2015 MG 3.1* 10/02/2015 ALB 1.7* 10/02/2015 WBC 12.62* 10/02/2015 HGB 10.1* 10/02/2015 CXR Stable positioning of support tubes and lines. 2. Unchanged multifocal opacities with bilateral effusions. Imaging findings may reflect stigmata of septic pulmonary embolus. ASSESSMENT & PLAN HYPONATREMIA; the etiology is likely due to methamphetamine use and worsened by nausea and poor po intake lately. He expectedly over-corrected as he was fluid rescucitated. The patien t presents with hypo-osmolar hyponatremia in the setting of intravascular volume depletion d ue to poor po intake.The preliminary response to NS challenge is consistent with hypovolemic hypo-osmolar hyponatremia. The plan is not to over correct more than 8 -10 meq/ 24 hrs and hence he is on d5w and rece ived DDAVP, both measures which i agree with. Plan; Serial sodium measurements q 4 hrs continue d5w Will check TSH and am cortisol level Check urine osm and serum osm MARCEL/ ARF : This is probably hemodynamic in nature . Cr improved with hydration. Plan; No indication for RAILCAR SWITCHMAN at this time. Continue IV D5w. We will reassess volume closely. Avoid all kinds of nephrotoxins such as iodinated contrast and NSAIDS (including FRASER 2 inhi bitors) Hold CONCHIS I and ARBS Target a MAP>70 mmHg . Daily weights and strict I/O's Medications to be dosed for estimated eGFR Magnesium and aluminum containing antacids should be avoided. Magnesium or phosphorus containing laxatives should be avoided. BP control: BP control Is acceptable Anemia mangement: Hb is above 8; there is no indication for epogen or transfusion. Sepsis r/o Infective endocarditis with septic pulmonary emboli -GPCs growing on blood cultures from [facility]; -TTE official report is pending -on vancomycin IV/ceftriaxone Acute hypoxemic respiratory failure : intubated, on vent support Thrombocytopenia metabolic Encephalopathy Abnormal LFTs: -Suspected to be from sepsis. Hepatitis profile requested Thank you for asking me to participate in the care of your patient. I will be happy to cont inue to follow up on Mr. Yang Ridley during hospitalization. RENETTA BUCK MD 10/02/2015 Oliva Case MD - 10/02/2015 7:47 AM PDTFormatting of this note might be different from the origina l. Consult* by Usman Villatoro MD at 10/02/1547 Author: Usman Villatoro MD Service: Infectious Disease Author Type: Physician Filed: 10/02/15 1412 Date of Service: 10/02/15746 Status: Signed Bisque Brusher: Usman Villatoro MD (Physician) [facility] Service: Infectious Disease Initial Consult Note Date of Admission: 10/01/2015 Reason for Consultation: Sepsis, infective endocarditis with septic pulmonary emboli Requesting Physician: Dr. Ivan Munoz, Auto Dealer History Obtained From: chart review, Reason patient could not give history: intubated CHIEF COMPLAINT: Fever, chest pain and altered mental status HISTORY OF PRESENT ILLNESS From Auto Dealer's admission note on 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 male with significant history of tobacco and drug abuse using daily heroin and methamphetamine, also on Suboxone. He initially presented to [facility] for progressive weakness, lethargy, and ge neralized pain (mostly his chest, neck, back, knees, ankles and toes) for the past 7 days. H e noticed that his ankles and right knee were swollen but not warm or erythematous. Accordin g to his girlfriend, he has been feeling sick and febrile for the past week with poor PO int elisha. Yesterday, she noticed that he seemed like he was hallucinating and talking to himself. He was very weak today that she had to assist him to get into the car to go the the ED. Exam at OSH was significant for point tenderness at the area of the cervical spine and posi tive Kernig's sign. LP was performed to rule out meningitis. IV antibiotics started, ceftria xone 2 gm and vancomycin [address] head and C-spine x-ray performed, MRI attempted but patient decompensated and was intubated for respiratory failure and airway protection. Significant labs: Na 114 (1435 hrs), BUN 81, Crea 2.48, WBC 19.9, Hb 11.6, Plt 51, Tbili 3. 6, AST 188, ALT 155, LA 1.7. CSF: clear, colorless, WBC 0, RBC 3. Protein 31. Glucose 50. Culture with no growth to d ate Blood cultures are reported to be growing GPCs at [facility] Transferred to [facility] for further care. MRI of brain and spine carried out with limited findi ngs due to non-contrast study. He remains intubated. He is off sedation and has been noted to move all extremities. REVIEW OF SYSTEMS Review of Systems Unable to perform ROS: Intubated No past medical history on file. No past surgical history on file. No Known Allergies No prescriptions prior to admission Scheduled Medications cefTRIAXone 2 g Intravenous Q12H chlorhexidine gluconate 15 mL Mouth/Throat Q12H desmopressin (DDAVP) IVPB 2 mcg Intravenous Once docusate sodium 100 mg Oral BID famotidine 20 mg Oral BID Or famotidine 20 mg Intravenous BID insulin lispro (human) 0-6 Units Subcutaneous 4 times per day lactated ringers 1,000 mL Intravenous Once midazolam midazolam 2 mg Intravenous Once pneumococcal 23-valent vaccine 0.5 mL Intramuscular Once Immunization sodium chloride 0.9 % sodium chloride 0.9 % vancomycin 17 mg/kg Intravenous Q12H Followed by [START ON 10/03/2015] vancomycin 17 mg/kg Intravenous Q24H Continuous Infusions dextrose dextrose 200 mL/hr at 10/02/15 0425 PRN Medications acetaminophen OR acetaminophen, dextrose, dextrose, dextrose, fentaNYL, glucagon, gluca dmitry, lip moisturizer, nystatin, nystatin, ondansetron OR ondansetron, petrolatum No family history on file. History Social History Marital Status: Single Spouse Name: N/A Number of Children: N/A Years of Education: N/A Occupational History Not on file. Social History Main Topics Smoking status: Not on file Smokeless tobacco: Not on file Alcohol Use: Not on file Drug Use: Not on file Sexual Activity: Not on file Other Topics Concern Not on file Social History Narrative No narrative on file PHYSICAL EXAM Vital Signs: BP 94/66 mmHg | Pulse 84 | Temp(Src) 93 F (33.9 C) (Bladder) | Resp 24 | Ht 1.702 m (5' 7") | Wt 69.1 kg (152 lb 5.4 oz) | BMI 23.85 kg/m2 | SpO2 98% Temp: [92.3 F (33.5 C)-102 F (38.9 C)] 93 F (33.9 C) (10/01 650) BP: (85-107)/(50-70) 94/66 mmHg (10/01 650) Heart Rate: [71-115] 84 (10/01 650) Resp: [17-29] 24 (10/01 650) SpO2: [97 %-100 %] 98 % (10/01 650) Height: [170.2 cm (5' 7")] 170.2 cm (5' 7") (09/30 1914) Weight: [69.1 kg (152 lb 5.4 oz)-69.5 kg (153 lb 3.5 oz)] 69.1 kg (152 lb 5.4 oz) (10/01 430) FiO2 : [35 %] 35 % (10/01 318) Physical Exam Vital signs reviewed General: Intubated. Ok-hugger on. Somnolent, flutters eyes with verbal and tactile sti muli HEENT: Slightly icteric sclerae, pupils reactive to light. No visible nasal/orolabial les ions. L IJ central line. No palpable neck masses CV: Normal rate, regular rhythm, no murmur or rubs Lungs: No rales, wheezes or rhonchi noted Abdomen: No distention. Postive bowel sounds. Soft. No tenderness. No palpable masses Albarran catheter in place Skin: Tattoo at chest wall. Petechial rash at both legs MS: No inflamed looking joints Neurologic: Somnolent. Difficult to evaluate motor strength Psych: Not evaluated DATA CBC: Lab Results Component Value Date WBC 12.62* 10/02/2015 RBC 3.76* 10/02/2015 HGB 10.1* 10/02/2015 HCT 31.0* 10/02/2015 MCV 82.5 10/02/2015 MCH 26.8* 10/02/2015 MCHC 32.4 10/02/2015 RDW 39.8 10/02/2015 PLT 35* 10/02/2015 MPV 10.6 10/02/2015 DIFFTYPE MANUAL 10/02/2015 WBC: Lab Results Component Value Date WBC 12.62* 10/02/2015 NEUTABSMAN 11.23* 10/02/2015 NEUTROMAN 89 10/02/2015 LYMPHOABS 0.76* 10/02/2015 LYMPHOMAN 6 10/02/2015 MONOABSMAN 0.63 10/02/2015 MONOMAN 5 10/02/2015 PLTEST DECREASED 10/01/2015 BANDSPCT 4 10/01/2015 CMP: Lab Results Component Value Date NA 126* 10/02/2015 K 4.0 10/02/2015 CL 88* 10/02/2015 CO2 24 10/02/2015 ANIONGAP 15 10/02/2015 GLUF 143* 10/02/2015 BUN 70* 10/02/2015 CREATININE 1.5* 10/02/2015 BCR 47 10/02/2015 CA 7.1* 10/02/2015 PROT 5.9* 10/02/2015 ALB 1.7* 10/02/2015 GLOB 3.6 10/01/2015 BILITOT 3.4* 10/02/2015 ALP 142* 10/02/2015 AST 176* 10/02/2015 ALT 133* 10/02/2015 EGFR 58* 10/02/2015 U/A: No results found for: COLORU, CLARITYU, MEROPENEM, LEUKOCYTESUR, NITRITE, UROBILINOGE N, UPRO, PHUR, BLOODU, KETONES, BILIRUBINUR, GLUCOSEU No results found for: CRP No results found for: ESR Microbiology Data: 09/30 blood cultures in process 09/30 sputum culture in process 09/30 MRSA nasal PCR negative Impression 1. Stable positioning of support tubes and lines. 2. Unchanged multifocal opacities with bilateral effusions. Imaging findings may reflect s tigmata of septic pulmonary embolus. X-ray chest 1 view [[id number]] Impression No acute or focal intracranial abnormality . No evidence of infarct or hemorrhage. RADIA Electronically signed by Maegan Maddox MD on Oct 02 2015 4:49AM Referring Provider Line: [phone] ID: [id number] MRI brain without contrast [[id number]] Impression No cord impingement or cord signal abnormality identified. No findings suggesting diskitis or osteomyelitis. Prominence to the epidural space in the upper cervical spine , potentially a prominent epidural venous plexus. Evaluation for abscess is limited without IV contrast. Followup suggested. RADIA Electronically signed by Maegan Maddox MD on Oct 02 2015 5:45AM Referring Provider Line: [phone] ID: [id number] MRI cervical spine without contrast [[id number]] Impression No significant abnormality identified in the thoracic spine . Evaluation for epidural absce ss is limited without IV contrast. Right-sided pleural effusion . Multiple cavitating lung nodules. This is suboptimally image d with this technique. Consider correlation with CT. RADIA Electronically signed by Maegan Maddox MD on Oct 02 2015 5:00AM Referring Provider Line: [phone] ID: [id number] MRI thoracic spine without contrast [[id number]] Impression Degenerative disk disease at L5-S1. No significant central canal stenosis. Other disk space s are unremarkable . Evaluation for epidural abscess is limited without IV contrast. Bilateral posterior paraspinal muscular edema , nonspecific. No fluid collection amenable t o drainage is identified. RADIA Electronically signed by Maegan Maddox MD on Oct 02 2015 5:03AM Referring Provider Line: [phone] ID: [id number] MRI lumbar spine without contrast [[id number]] PROBLEM LIST Principal Problem: Sepsis (HCC) Active Problems: Hyposmolality and/or hyponatremia MARCEL (acute kidney injury) (HCC) Leucocytosis Thrombocytopenia (HCC) Toxic metabolic encephalopathy Acute respiratory failure with hypoxia (HCC) Heroin abuse Methamphetamine abuse Tobacco abuse Acute septic pulmonary embolism (HCC) Acute infective endocarditis ASSESSMENT & PLAN Sepsis -Working diagnosis: Infective endocarditis with septic pulmonary emboli -GPCs growing on blood cultures from [facility]; ff up blood cultures here with no grow th to date -TTE official report is pending -continue vancomycin IV/ceftriaxone for now; appreciate Pharmacy dosing of IV vancomycin -infection parameters are improving -patient has history of drug use; HIV 1 and 2 antibodies, HIV RNA PCR and acute hepatitis profile have been requested Encephalopathy, most likely metabolic -initial CSF analysis reassuring in terms of meningitis -he had history of neck, back pain and weakness; will monitor neurologic exam and dependin g on progress, may need follow up MRI of cervical spine, possibly with contrast if renal fun ction improves Acute hypoxemic respiratory failure -intubated, on vent support Thrombocytopenia -has petechiae at both lower extremities; s/p platelet transfusion MARCEL -IV vancomycin dosed to GFR Abnormal LFTs -Suspected to be from sepsis; will monitor. Hepatitis profile requested Case had been discussed with Dr. Thomas Code Status: Full Code Primary Care Physician: PER PT NONE Thank you for allowing me to participate in the care of this patient. USMAN VILLATORO MD 10/02/2015 documented in t his encounter Miscellaneous Notes Plan of Care - Conversion Transaction, Provider Unknown - 11/11/2015 8:44 AM PDT Plan of Care by Jackie Finch RN at 11/11/15843 Author: Jackie Finch RN Service: (none) Author Type: Registered Nurse Filed: 11/11/15843 Date of Service: 11/11/15843 Status: Signed Bisque Brusher: Jackie Finch RN (Registered Nurse) Daily care needs are met Progressing Patient's discharge needs are met Progressing STG: Patient will participate in education Progressing STG: Patient will increase endurance for ADLs/IADLs and functional mobility Progressing STG: Patient will participate in Home Exercise Program education for increased independence in ADLs/IADLs and functional mobility Progressing Patient will remain free from falls: High Risk (Beck 51+) Progressing Patient's pain/discomfort is manageable Progressing Demonstrates ability to cope with hospitalization/illness Progressing Collaborate with patient/family/caregiver to identify patient specific goals for this hospi talization Progressing Patient will be injury free during hospitalization Progressing lan o f Care - Rigoberto Joy MD - 10/24/2015 4:58 PM PDTFormatting of this note might be d ifferent from the original. Plan of Care by Rigoberto Joy MD at 10/24/15 801 Author: Rigoberto Joy MD Service: Auto Dealer Author Type: Physician Filed: 10/24/15 1708 Date of Service: 10/24/151657 Status: Signed Bisque Brusher: Rigoberto Joy MD (Physician) Throughout the course of the day Mr Kasper periodically exhibited episodes of psychosis an d reported varying degree of visual and auditory hallucinations. He also exhibited self harm ing behavior including biting his toungue and attempting to bite his fingers. Mitts were added to the care in addition to the sitter and prn haldol+benztropine with sascha zesalbadorm was also added in addition to the dexmedetomidine. Multiple attempts by me and Eder (lead nurse) to contact an in patient sychiatric facility failed to get Mr. Kasper a bed at a hospital that can cater to his needs at this point. Mr. Kasper pulled his left PICC line out and was without access. He does have a tunelled d ialysis catheter in place, and the decision to NOT dialyze him was made earlier in the day b y Dr. Vora (as the pt is responding to lasix). The decision to access the TDC was made for ongoing IV medication needs. This was also disc ussed with Dr. Vora, who agrees, given this situation and as the catheter is going to be removed on Monday. Rigoberto Joy 5:08 PM 10/24/15 lan of Care - C onversion Transaction, Provider Unknown - 10/22/2015 10:56 AM PDTFormatting of this note claduia ht be different from the original. Plan of Care by Daniel Gonzalez RN at 10/22/15 105 Author: Daniel Gonzalez RN Service: (none) Author Type: Registered Nurse Filed: 10/22/15 105 Date of Service: 10/22/151055 Status: Signed Bisque Brusher: Daniel Gonzalez RN (Registered Nurse) Daily Care Daily care needs are met Progressing Discharge Barriers Patient's discharge needs are met Progressing Pain Patient's pain/discomfort is manageable Progressing Psychosocial Needs Demonstrates ability to cope with hospitalization/illness Progressing Collaborate with patient/family/caregiver to identify patient specific goals for this h ospitalization Progressing Safety Patient will be injury free during hospitalization Progressing p Not chelle - Femi Vaughan MD - 10/21/2015 6:03 PM PDTFormatting of this note might be different fr om the original. Brief Op Note by Femi Vaughan MD at 10/21/151802 Author: Femi Vaughan MD Service: Interventional Radiology Author Type: Physician Filed: 10/21/15 180 Date of Service: 10/21/151802 Status: Signed Bisque Brusher: Femi Vaughan MD (Physician) Interventional Radiology Post Procedure Note Patient Name: Yang Ridley Date of : 1985 Pre OP Diagnosis: Renal failure Post OP Diagnosis: Same Procedure: Right-sided tunneled hemodialysis catheter placement Interventional Radiologist: Femi Vaughan MD Cash Posting Clerk: None Anesthesia Type: Moderate sedation Findings: 14.5 F, 23 cm tip-to-cuff length, right-sided tunneled HD catheter place via R IJ vein. EBL: Minimal Complications: None PLAN: Catheter okay to use. Dr. Femi Vaughan MD Vascular and Interventional Radiology lan of C are - Conversion Transaction, Provider Unknown - 10/07/2015 10:29 PM PDTFormatting of this n ote might be different from the original. Plan of Care by Eze Ta RN at 10/07/152228 Author: Eze Ta RN Service: Auto Dealer Author Type: Registered Nurse Filed: 10/07/152241 Date of Service: 10/07/152228 Status: Addendum Bisque Brusher: Eze Ta RN (Registered Nurse) Related Notes: Original Note by Eze Ta RN (Registered Nurse) filed at 10/07/152231 Will encourage pt and family that pt needs to increase activity and adls himself lan o f Care - Balta Li MD - 10/05/2015 6:31 PM PDT Plan of Care by Balta Li MD at 10/05/151830 Author: Balta Li MD Service: (none) Author Type: Physician Filed: 10/05/151830 Date of Service: 10/05/151830 Status: Signed Bisque Brusher: Balta Li MD (Physician) discussed with piercing artist , and patient will be transferred to ICU. iscellaneous Renan East MD - 10/05/2015 6:18 PM PDTFormatting of this note might be different from the origina l. Treatment Plan by Balta Li MD at 10/05/151817 Author: Balta Li MD Service: (none) Author Type: Physician Filed: 10/05/151822 Date of Service: 10/05/151817 Status: Signed Bisque Brusher: Balta Li MD (Physician) Repeaty sodium from 5:30 still 117, called lab. Also d/w nephrology. Informed about anuria. Pending CT scan head neck chest and abdomen pelvis. Nephrology recommended normal saline to 250 cc bolus and 3 percent saline at 60 cc per hour for 360 mL and again 250 cc bolus after that. Further bolus as needed. And sodium every 2 h ours during this time. Patient will need ICU level care for same. Left message for piercing artist. Was discussed with them will consider further protocol from thereon. Only start with NS 250 cc bolus for now. iscellaneous - Renan Li MD - 10/05/2015 5:56 PM PDTFormatting of this note might be different from the origina l. Treatment Plan by Balta Li MD at 10/05/151755 Author: Balta Li MD Service: (none) Author Type: Physician Filed: 10/05/151817 Date of Service: 10/05/151755 Status: Signed Bisque Brusher: Balta Li MD (Physician) The patient overall had an eventful day. After. We will catheter attempt patient did not have much urine output so was removed and r eplaced by coud. Still no urine output . Also patient had one episode of bilious vomiting but withhold it was okay . He has not had a bowel movement for last 2-3 days passing gas no previous nausea or vomiting . We tried NG tube insertion but had epistaxis and being from both nostrils but stopped . So currently we will proceed for CT scan of abdomen and pelvis to evaluate for bladder with Albarran catheter and also bone to rule out obstruction . The could not get thoracocentesis done today as patient was not able to reposition well. So discussed with ID and due to poor outpatient presentation will proceed with CT scan chest a nd also CT head noncontrast . We will follow repeat sodium. iscellaneous - Renan Li MD - 10/05/2015 1:49 PM PDTFormatting of this note might be different from the origina l. Treatment Plan by Balta Li MD at 10/05/15 5665 Author: Balta Li MD Service: (none) Author Type: Physician Filed: 10/05/15 3107 Date of Service: 10/05/15 3530 Status: Signed Bisque Brusher: Balta Li MD (Physician) Repeat sodium at 1 p.m., down 117 after normal saline at 75. Discussed the nephrology. Will give patient albumin 50 g 1, Lasix 40 mg 1. Start sodium tabs 1 tab 3 times a day and follow-up sodium every 4 hours. After Albarran catheter. Patient had no urine output flushing well, but bladder scan shows mor e volume. Possible that could be from ascites, so we'll proceed with the ultrasound. Urinary bladder to confirm and follow-up with same. lan of Care - Conversio n Transaction, Provider Unknown - 10/03/2015 5:30 AM PDTFormatting of this note might be di fferent from the original. Plan of Care by Luiza Haq RN at 10/03/15 03 Author: Luiza Haq RN Service: (none) Author Type: Registered Nurse Filed: 10/03/15529 Date of Service: 10/03/15529 Status: Signed Bisque Brusher: Luiza Haq RN (Registered Nurse) Problem: Pain Goal: Patient s pain/discomfort is manageable Assess and monitor patient s pain using appropriate pain scale. Collaborate with interdis ciplinary team and initiate plan and interventions as ordered. Re-assess patient s pain le jazlyn approximately 1-2 hours after pain management intervention. Premedicate as needed. Intervention: Assess characteristics of pain Pt given prn fentanyl for comfort. Pt complains of chest pain/throat pain post extubation. Problem: Daily Care Goal: Daily care needs are met Assess and monitor ability to perform self care and identify potential discharge needs. Outcome: Progressing Pt given a bath this am, continue to turn every two hours, albarran care and erasto care as need ed. Problem: Psychosocial Needs Goal: Demonstrates ability to cope with hospitalization/illness Assess and monitor patients ability to cope with his/her illness. Outcome: Progressing Pt becomes anxious at times, emotional support given. Encouraging pt to perform breathing e xercises and relaxation technique. docume nted in this encounter Plan of Treatment Not on filedocumented as of this encounter Procedures + +--------+ + + + | Procedure Name | Priori | Date/Time | Associated Diagnosis | Comments | | | ty | | | | + +--------+ + + + | ECHO LIMITED | Routin | 11/11/2015 | | Results for this | | | e | 1:17 PM | | procedure are in the | | | | PDT | | results section. | + +--------+ + + + | EXTERNAL LAB: CBC | Routin | 11/09/2015 | | Results for this | | | e | 5:16 AM | | procedure are in the | | | | PDT | | results section. | + +--------+ + + + | SEDIMENTATION RATE, | Routin | 11/09/2015 | | Results for this | | AUTOMATED | e | 5:16 AM | | procedure are in the | | | | PDT | | results section. | + +--------+ + + + | C-REACTIVE PROTEIN | Routin | 11/09/2015 | | Results for this | | | e | 5:16 AM | | procedure are in the | | | | PDT | | results section. | + +--------+ + + + | BASIC METABOLIC | Routin | 11/09/2015 | | Results for this | | PANEL | e | 5:16 AM | | procedure are in the | | | | PDT | | results section. | + +--------+ + + + | EXTERNAL LAB: CBC | Routin | 11/05/2015 | | Results for this | | | e | 6:05 AM | | procedure are in the | | | | PDT | | results section. | + +--------+ + + + | BASIC METABOLIC | Routin | 11/05/2015 | | Results for this | | PANEL | e | 6:05 AM | | procedure are in the | | | | PDT | | results section. | + +--------+ + + + | EXTERNAL LAB: DEON | Routin | 11/04/2015 | | Results for this | | | e | 4:51 AM | | procedure are in the | | | | PDT | | results section. | + +--------+ + + + | BASIC METABOLIC | Routin | 11/04/2015 | | Results for this | | PANEL | e | 4:51 AM | | procedure are in the | | | | PDT | | results section. | + +--------+ + + + | VANCOMYCINPATRICK | Routin | 11/03/2015 | | Results for this | | | e | 10:11 AM | | procedure are in the | | | | PDT | | results section. | + +--------+ + + + | TYPE AND SCREEN | Routin | 11/02/2015 | | Results for this | | | e | 5:46 AM | | procedure are in the | | | | PDT | | results section. | + +--------+ + + + | EXTERNAL LAB: CBC | Routin | 11/02/2015 | | Results for this | | | e | 5:44 AM | | procedure are in the | | | | PDT | | results section. | + +--------+ + + + | SEDIMENTATION RATE, | Routin | 11/02/2015 | | Results for this | | AUTOMATED | e | 5:44 AM | | procedure are in the | | | | PDT | | results section. | + +--------+ + + + | C-REACTIVE PROTEIN | Routin | 11/02/2015 | | Results for this | | | e | 5:44 AM | | procedure are in the | | | | PDT | | results section. | + +--------+ + + + | PHOSPHORUS | Routin | 11/02/2015 | | Results for this | | | e | 5:44 AM | | procedure are in the | | | | PDT | | results section. | + +--------+ + + + | MAGNESIUM | Routin | 11/02/2015 | | Results for this | | | e | 5:44 AM | | procedure are in the | | | | PDT | | results section. | + +--------+ + + + | VANCOMYCIN, TROUGH | Routin | 11/02/2015 | | Results for this | | | e | 5:44 AM | | procedure are in the | | | | PDT | | results section. | + +--------+ + + + | BASIC METABOLIC | Routin | 11/02/2015 | | Results for this | | PANEL | e | 5:44 AM | | procedure are in the | | | | PDT | | results section. | + +--------+ + + + | EXTERNAL LAB: CBC | Routin | 11/01/2015 | | Results for this | | | e | 5:16 AM | | procedure are in the | | | | PDT | | results section. | + +--------+ + + + | PHOSPHORUS | Routin | 11/01/2015 | | Results for this | | | e | 5:16 AM | | procedure are in the | | | | PDT | | results section. | + +--------+ + + + | MAGNESIUM | Routin | 11/01/2015 | | Results for this | | | e | 5:16 AM | | procedure are in the | | | | PDT | | results section. | + +--------+ + + + | VANCOMYCIN LEVEL | Routin | 11/01/2015 | | Results for this | | | e | 5:16 AM | | procedure are in the | | | | PDT | | results section. | + +--------+ + + + | BASIC METABOLIC | Routin | 11/01/2015 | | Results for this | | PANEL | e | 5:16 AM | | procedure are in the | | | | PDT | | results section. | + +--------+ + + + | VANCOMYCIN, TROUGH | Routin | 10/31/2015 | | Results for this | | | e | 5:09 PM | | procedure are in the | | | | PDT | | results section. | + +--------+ + + + | EXTERNAL LAB: CBC | Routin | 10/31/2015 | | Results for this | | | e | 7:22 AM | | procedure are in the | | | | PDT | | results section. | + +--------+ + + + | PHOSPHORUS | Routin | 10/31/2015 | | Results for this | | | e | 7:22 AM | | procedure are in the | | | | PDT | | results section. | + +--------+ + + + | MAGNESIUM | Routin | 10/31/2015 | | Results for this | | | e | 7:22 AM | | procedure are in the | | | | PDT | | results section. | + +--------+ + + + | COMPREHENSIVE | Routin | 10/31/2015 | | Results for this | | METABOLIC PANEL | e | 7:22 AM | | procedure are in the | | | | PDT | | results section. | + +--------+ + + + | CULTURE, URINE | Routin | 10/30/2015 | | Results for this | | | e | 4:53 PM | | procedure are in the | | | | PDT | | results section. | + +--------+ + + + | HISTORICAL | Timed | 10/30/2015 | | Results for this | | MICROBIOLOGY RESULT | | 4:43 PM | | procedure are in the | | | | PDT | | results section. | + +--------+ + + + | CULTURE, BLOOD, 2ND | Timed | 10/30/2015 | | Results for this | | SPECIMEN (NON-ORD) | | 4:34 PM | | procedure are in the | | | | PDT | | results section. | + +--------+ + + + | LACTIC ACID | Routin | 10/30/2015 | | Results for this | | | e | 4:34 PM | | procedure are in the | | | | PDT | | results section. | + +--------+ + + + | PH, VENOUS | Routin | 10/30/2015 | | Results for this | | | e | 4:34 PM | | procedure are in the | | | | PDT | | results section. | + +--------+ + + + | CULTURE, BLOOD | Timed | 10/30/2015 | | Results for this | | | | 4:21 PM | | procedure are in the | | | | PDT | | results section. | + +--------+ + + + | XR CHEST 1 VIEW | Routin | 10/30/2015 | | Results for this | | | e | 4:16 PM | | procedure are in the | | | | PDT | | results section. | + +--------+ + + + | URINALYSIS, REFLEX | Routin | 10/30/2015 | | Results for this | | MICROSCOPIC AND/OR | e | 3:55 PM | | procedure are in the | | CULTURE | | PDT | | results section. | + +--------+ + + + | EXTERNAL LAB: CBC | Routin | 10/30/2015 | | Results for this | | | e | 4:22 AM | | procedure are in the | | | | PDT | | results section. | + +--------+ + + + | PHOSPHORUS | Routin | 10/30/2015 | | Results for this | | | e | 4:22 AM | | procedure are in the | | | | PDT | | results section. | + +--------+ + + + | MAGNESIUM | Routin | 10/30/2015 | | Results for this | | | e | 4:22 AM | | procedure are in the | | | | PDT | | results section. | + +--------+ + + + | BASIC METABOLIC | Routin | 10/30/2015 | | Results for this | | PANEL | e | 4:22 AM | | procedure are in the | | | | PDT | | results section. | + +--------+ + + + | EXTERNAL LAB: CBC | Routin | 10/29/2015 | | Results for this | | | e | 5:34 AM | | procedure are in the | | | | PDT | | results section. | + +--------+ + + + | PHOSPHORUS | Routin | 10/29/2015 | | Results for this | | | e | 5:34 AM | | procedure are in the | | | | PDT | | results section. | + +--------+ + + + | MAGNESIUM | Routin | 10/29/2015 | | Results for this | | | e | 5:34 AM | | procedure are in the | | | | PDT | | results section. | + +--------+ + + + | BASIC METABOLIC | Routin | 10/29/2015 | | Results for this | | PANEL | e | 5:34 AM | | procedure are in the | | | | PDT | | results section. | + +--------+ + + + | EXTERNAL LAB: CBC | Routin | 10/28/2015 | | Results for this | | | e | 4:36 AM | | procedure are in the | | | | PDT | | results section. | + +--------+ + + + | PHOSPHORUS | Routin | 10/28/2015 | | Results for this | | | e | 4:36 AM | | procedure are in the | | | | PDT | | results section. | + +--------+ + + + | MAGNESIUM | Routin | 10/28/2015 | | Results for this | | | e | 4:36 AM | | procedure are in the | | | | PDT | | results section. | + +--------+ + + + | BASIC METABOLIC | Routin | 10/28/2015 | | Results for this | | PANEL | e | 4:36 AM | | procedure are in the | | | | PDT | | results section. | + +--------+ + + + | EXTERNAL LAB: CBC | Routin | 10/27/2015 | | Results for this | | | e | 4:30 AM | | procedure are in the | | | | PDT | | results section. | + +--------+ + + + | PHOSPHORUS | Routin | 10/27/2015 | | Results for this | | | e | 4:30 AM | | procedure are in the | | | | PDT | | results section. | + +--------+ + + + | MAGNESIUM | Routin | 10/27/2015 | | Results for this | | | e | 4:30 AM | | procedure are in the | | | | PDT | | results section. | + +--------+ + + + | BASIC METABOLIC | Routin | 10/27/2015 | | Results for this | | PANEL | e | 4:30 AM | | procedure are in the | | | | PDT | | results section. | + +--------+ + + + | POTASSIUM | Routin | 10/26/2015 | | Results for this | | | e | 12:58 PM | | procedure are in the | | | | PDT | | results section. | + +--------+ + + + | EXTERNAL LAB: CBC | Routin | 10/26/2015 | | Results for this | | | e | 4:22 AM | | procedure are in the | | | | PDT | | results section. | + +--------+ + + + | PHOSPHORUS | Routin | 10/26/2015 | | Results for this | | | e | 4:22 AM | | procedure are in the | | | | PDT | | results section. | + +--------+ + + + | MAGNESIUM | Routin | 10/26/2015 | | Results for this | | | e | 4:22 AM | | procedure are in the | | | | PDT | | results section. | + +--------+ + + + | BASIC METABOLIC | Routin | 10/26/2015 | | Results for this | | PANEL | e | 4:22 AM | | procedure are in the | | | | PDT | | results section. | + +--------+ + + + | POTASSIUM | Routin | 10/25/2015 | | Results for this | | | e | 11:12 PM | | procedure are in the | | | | PDT | | results section. | + +--------+ + + + | PHOSPHORUS | Routin | 10/25/2015 | | Results for this | | | e | 11:12 PM | | procedure are in the | | | | PDT | | results section. | + +--------+ + + + | MAGNESIUM | Routin | 10/25/2015 | | Results for this | | | e | 11:12 PM | | procedure are in the | | | | PDT | | results section. | + +--------+ + + + | HEMOGLOBIN AND | Routin | 10/25/2015 | | Results for this | | HEMATOCRIT | e | 2:15 PM | | procedure are in the | | | | PDT | | results section. | + +--------+ + + + | POTASSIUM | Routin | 10/25/2015 | | Results for this | | | e | 2:15 PM | | procedure are in the | | | | PDT | | results section. | + +--------+ + + + | PHOSPHORUS | Routin | 10/25/2015 | | Results for this | | | e | 2:15 PM | | procedure are in the | | | | PDT | | results section. | + +--------+ + + + | MAGNESIUM | Routin | 10/25/2015 | | Results for this | | | e | 2:15 PM | | procedure are in the | | | | PDT | | results section. | + +--------+ + + + | EXTERNAL LAB: CBC | Routin | 10/25/2015 | | Results for this | | | e | 3:03 AM | | procedure are in the | | | | PDT | | results section. | + +--------+ + + + | PHOSPHORUS | Routin | 10/25/2015 | | Results for this | | | e | 3:03 AM | | procedure are in the | | | | PDT | | results section. | + +--------+ + + + | MAGNESIUM | Routin | 10/25/2015 | | Results for this | | | e | 3:03 AM | | procedure are in the | | | | PDT | | results section. | + +--------+ + + + | BASIC METABOLIC | Routin | 10/25/2015 | | Results for this | | PANEL | e | 3:03 AM | | procedure are in the | | | | PDT | | results section. | + +--------+ + + + | POTASSIUM | Routin | 10/24/2015 | | Results for this | | | e | 9:00 PM | | procedure are in the | | | | PDT | | results section. | + +--------+ + + + | MAGNESIUM | Routin | 10/24/2015 | | Results for this | | | e | 9:00 PM | | procedure are in the | | | | PDT | | results section. | + +--------+ + + + | POTASSIUM | Routin | 10/24/2015 | | Results for this | | | e | 11:52 AM | | procedure are in the | | | | PDT | | results section. | + +--------+ + + + | MAGNESIUM | Routin | 10/24/2015 | | Results for this | | | e | 11:52 AM | | procedure are in the | | | | PDT | | results section. | + +--------+ + + + | XR CHEST 1 VIEW | Routin | 10/24/2015 | | Results for this | | | e | 5:36 AM | | procedure are in the | | | | PDT | | results section. | + +--------+ + + + | EXTERNAL LAB: CBC | Routin | 10/24/2015 | | Results for this | | | e | 3:12 AM | | procedure are in the | | | | PDT | | results section. | + +--------+ + + + | PHOSPHORUS | Routin | 10/24/2015 | | Results for this | | | e | 3:12 AM | | procedure are in the | | | | PDT | | results section. | + +--------+ + + + | MAGNESIUM | Routin | 10/24/2015 | | Results for this | | | e | 3:12 AM | | procedure are in the | | | | PDT | | results section. | + +--------+ + + + | BASIC METABOLIC | Routin | 10/24/2015 | | Results for this | | PANEL | e | 3:12 AM | | procedure are in the | | | | PDT | | results section. | + +--------+ + + + | EXTERNAL LAB: CBC | Routin | 10/23/2015 | | Results for this | | | e | 3:24 AM | | procedure are in the | | | | PDT | | results section. | + +--------+ + + + | PHOSPHORUS | Routin | 10/23/2015 | | Results for this | | | e | 3:24 AM | | procedure are in the | | | | PDT | | results section. | + +--------+ + + + | MAGNESIUM | Routin | 10/23/2015 | | Results for this | | | e | 3:24 AM | | procedure are in the | | | | PDT | | results section. | + +--------+ + + + | BASIC METABOLIC | Routin | 10/23/2015 | | Results for this | | PANEL | e | 3:24 AM | | procedure are in the | | | | PDT | | results section. | + +--------+ + + + | XR CHEST 1 VIEW | Routin | 10/22/2015 | | Results for this | | | e | 5:26 AM | | procedure are in the | | | | PDT | | results section. | + +--------+ + + + | EXTERNAL LAB: CBC | Routin | 10/22/2015 | | Results for this | | | e | 4:04 AM | | procedure are in the | | | | PDT | | results section. | + +--------+ + + + | SEDIMENTATION RATE, | Routin | 10/22/2015 | | Results for this | | AUTOMATED | e | 4:04 AM | | procedure are in the | | | | PDT | | results section. | + +--------+ + + + | C-REACTIVE PROTEIN | Routin | 10/22/2015 | | Results for this | | | e | 4:04 AM | | procedure are in the | | | | PDT | | results section. | + +--------+ + + + | PHOSPHORUS | Routin | 10/22/2015 | | Results for this | | | e | 4:04 AM | | procedure are in the | | | | PDT | | results section. | + +--------+ + + + | MAGNESIUM | Routin | 10/22/2015 | | Results for this | | | e | 4:04 AM | | procedure are in the | | | | PDT | | results section. | + +--------+ + + + | HEPATIC FUNCTION | Routin | 10/22/2015 | | Results for this | | PANEL | e | 4:04 AM | | procedure are in the | | | | PDT | | results section. | + +--------+ + + + | BASIC METABOLIC | Routin | 10/22/2015 | | Results for this | | PANEL | e | 4:04 AM | | procedure are in the | | | | PDT | | results section. | + +--------+ + + + | IR PLACEMENT | Routin | 10/21/2015 | | Results for this | | TUNNELED CENTRAL | e | 5:48 PM | | procedure are in the | | VENOUS CATHETER > 5 | | PDT | | results section. | | YEARS | | | | | + +--------+ + + + | TYPE AND SCREEN | Routin | 10/21/2015 | | Results for this | | | e | 8:09 AM | | procedure are in the | | | | PDT | | results section. | + +--------+ + + + | EXTERNAL LAB: CBC | Routin | 10/21/2015 | | Results for this | | | e | 3:58 AM | | procedure are in the | | | | PDT | | results section. | + +--------+ + + + | TRIGLYCERIDES | Routin | 10/21/2015 | | Results for this | | | e | 3:58 AM | | procedure are in the | | | | PDT | | results section. | + +--------+ + + + | PHOSPHORUS | Routin | 10/21/2015 | | Results for this | | | e | 3:58 AM | | procedure are in the | | | | PDT | | results section. | + +--------+ + + + | MAGNESIUM | Routin | 10/21/2015 | | Results for this | | | e | 3:58 AM | | procedure are in the | | | | PDT | | results section. | + +--------+ + + + | HEPATIC FUNCTION | Routin | 10/21/2015 | | Results for this | | PANEL | e | 3:58 AM | | procedure are in the | | | | PDT | | results section. | + +--------+ + + + | BASIC METABOLIC | Routin | 10/21/2015 | | Results for this | | PANEL | e | 3:58 AM | | procedure are in the | | | | PDT | | results section. | + +--------+ + + + | CT GUIDED BIOPSY | Routin | 10/20/2015 | | Results for this | | RENAL | e | 2:23 PM | | procedure are in the | | | | PDT | | results section. | + +--------+ + + + | EXTERNAL LAB: CBC | Routin | 10/20/2015 | | Results for this | | | e | 4:58 AM | | procedure are in the | | | | PDT | | results section. | + +--------+ + + + | PHOSPHORUS | Routin | 10/20/2015 | | Results for this | | | e | 4:58 AM | | procedure are in the | | | | PDT | | results section. | + +--------+ + + + | MAGNESIUM | Routin | 10/20/2015 | | Results for this | | | e | 4:58 AM | | procedure are in the | | | | PDT | | results section. | + +--------+ + + + | HEPATIC FUNCTION | Routin | 10/20/2015 | | Results for this | | PANEL | e | 4:58 AM | | procedure are in the | | | | PDT | | results section. | + +--------+ + + + | BASIC METABOLIC | Routin | 10/20/2015 | | Results for this | | PANEL | e | 4:58 AM | | procedure are in the | | | | PDT | | results section. | + +--------+ + + + | POC GLUCOSE | Routin | 10/20/2015 | | Results for this | | | e | 4:51 AM | | procedure are in the | | | | PDT | | results section. | + +--------+ + + + | TISSUE REQUEST FOR | Routin | 10/20/2015 | | Results for this | | PATHOLOGY (NON-ORD) | e | 12:00 AM | | procedure are in the | | | | PDT | | results section. | + +--------+ + + + | TRIGLYCERIDES | Routin | 10/19/2015 | | Results for this | | | e | 8:34 PM | | procedure are in the | | | | PDT | | results section. | + +--------+ + + + | LIPASE | Routin | 10/19/2015 | | Results for this | | | e | 8:34 PM | | procedure are in the | | | | PDT | | results section. | + +--------+ + + + | AMYLASE | Routin | 10/19/2015 | | Results for this | | | e | 8:34 PM | | procedure are in the | | | | PDT | | results section. | + +--------+ + + + | XR ABDOMEN AP | Routin | 10/19/2015 | | Results for this | | | e | 6:17 PM | | procedure are in the | | | | PDT | | results section. | + +--------+ + + + | ECHO TRANSESOPHAGEAL | Routin | 10/19/2015 | | Results for this | | (ANITA) | e | 1:55 PM | | procedure are in the | | | | PDT | | results section. | + +--------+ + + + | LACTIC ACID | Routin | 10/19/2015 | | Results for this | | | e | 1:02 PM | | procedure are in the | | | | PDT | | results section. | + +--------+ + + + | HISTORICAL | Timed | 10/19/2015 | | Results for this | | MICROBIOLOGY RESULT | | 9:30 AM | | procedure are in the | | | | PDT | | results section. | + +--------+ + + + | LACTIC ACID | Routin | 10/19/2015 | | Results for this | | | e | 8:38 AM | | procedure are in the | | | | PDT | | results section. | + +--------+ + + + | XR CHEST 1 VIEW | Routin | 10/19/2015 | | Results for this | | | e | 6:59 AM | | procedure are in the | | | | PDT | | results section. | + +--------+ + + + | PTT | Routin | 10/19/2015 | | Results for this | | | e | 5:17 AM | | procedure are in the | | | | PDT | | results section. | + +--------+ + + + | PROTIME INR | Routin | 10/19/2015 | | Results for this | | | e | 5:17 AM | | procedure are in the | | | | PDT | | results section. | + +--------+ + + + | LACTIC ACID | Routin | 10/19/2015 | | Results for this | | | e | 4:54 AM | | procedure are in the | | | | PDT | | results section. | + +--------+ + + + | HISTORICAL LAB PANEL | Routin | 10/19/2015 | | Results for this | | RESULT | e | 4:52 AM | | procedure are in the | | | | PDT | | results section. | + +--------+ + + + | PHOSPHORUS | Routin | 10/19/2015 | | Results for this | | | e | 4:52 AM | | procedure are in the | | | | PDT | | results section. | + +--------+ + + + | MAGNESIUM | Routin | 10/19/2015 | | Results for this | | | e | 4:52 AM | | procedure are in the | | | | PDT | | results section. | + +--------+ + + + | ECG 12 LEAD | Routin | 10/19/2015 | | Results for this | | | e | 4:38 AM | | procedure are in the | | | | PDT | | results section. | + +--------+ + + + | CT ABDOMEN PELVIS WO | Routin | 10/19/2015 | | Results for this | | CONTRAST | e | 3:41 AM | | procedure are in the | | | | PDT | | results section. | + +--------+ + + + | CULTURE, BLOOD, 2ND | Timed | 10/18/2015 | | Results for this | | SPECIMEN (NON-ORD) | | 10:21 AM | | procedure are in the | | | | PDT | | results section. | + +--------+ + + + | ECHO COMPLETE | Routin | 10/18/2015 | | Results for this | | | e | 9:07 AM | | procedure are in the | | | | PDT | | results section. | + +--------+ + + + | CULTURE, BLOOD | Timed | 10/18/2015 | | Results for this | | | | 8:00 AM | | procedure are in the | | | | PDT | | results section. | + +--------+ + + + | XR ABDOMEN AP | Routin | 10/18/2015 | | Results for this | | | e | 6:04 AM | | procedure are in the | | | | PDT | | results section. | + +--------+ + + + | EXTERNAL LAB: CBC | Routin | 10/18/2015 | | Results for this | | | e | 5:11 AM | | procedure are in the | | | | PDT | | results section. | + +--------+ + + + | PHOSPHORUS | Routin | 10/18/2015 | | Results for this | | | e | 5:11 AM | | procedure are in the | | | | PDT | | results section. | + +--------+ + + + | MAGNESIUM | Routin | 10/18/2015 | | Results for this | | | e | 5:11 AM | | procedure are in the | | | | PDT | | results section. | + +--------+ + + + | HEPATIC FUNCTION | Routin | 10/18/2015 | | Results for this | | PANEL | e | 5:11 AM | | procedure are in the | | | | PDT | | results section. | + +--------+ + + + | BASIC METABOLIC | Routin | 10/18/2015 | | Results for this | | PANEL | e | 5:11 AM | | procedure are in the | | | | PDT | | results section. | + +--------+ + + + | LACTATE | Routin | 10/17/2015 | | Results for this | | DEHYDROGENASE | e | 10:13 AM | | procedure are in the | | | | PDT | | results section. | + +--------+ + + + | HAPTOGLOBIN | Routin | 10/17/2015 | | Results for this | | | e | 10:13 AM | | procedure are in the | | | | PDT | | results section. | + +--------+ + + + | BILIRUBIN, DIRECT | Routin | 10/17/2015 | | Results for this | | | e | 10:13 AM | | procedure are in the | | | | PDT | | results section. | + +--------+ + + + | BILIRUBIN, TOTAL | Routin | 10/17/2015 | | Results for this | | | e | 10:13 AM | | procedure are in the | | | | PDT | | results section. | + +--------+ + + + | EXTERNAL LAB: CBC | Routin | 10/17/2015 | | Results for this | | | e | 10:02 AM | | procedure are in the | | | | PDT | | results section. | + +--------+ + + + | RETIC COUNT | Routin | 10/17/2015 | | Results for this | | | e | 10:02 AM | | procedure are in the | | | | PDT | | results section. | + +--------+ + + + | XR CHEST 1 VIEW | Routin | 10/17/2015 | | Results for this | | | e | 5:29 AM | | procedure are in the | | | | PDT | | results section. | + +--------+ + + + | EXTERNAL LAB: CBC | Routin | 10/17/2015 | | Results for this | | | e | 3:35 AM | | procedure are in the | | | | PDT | | results section. | + +--------+ + + + | PHOSPHORUS | Routin | 10/17/2015 | | Results for this | | | e | 3:35 AM | | procedure are in the | | | | PDT | | results section. | + +--------+ + + + | MAGNESIUM | Routin | 10/17/2015 | | Results for this | | | e | 3:35 AM | | procedure are in the | | | | PDT | | results section. | + +--------+ + + + | HEPATIC FUNCTION | Routin | 10/17/2015 | | Results for this | | PANEL | e | 3:35 AM | | procedure are in the | | | | PDT | | results section. | + +--------+ + + + | BASIC METABOLIC | Routin | 10/17/2015 | | Results for this | | PANEL | e | 3:35 AM | | procedure are in the | | | | PDT | | results section. | + +--------+ + + + | EXTERNAL LAB: CBC | Routin | 10/16/2015 | | Results for this | | | e | 3:28 AM | | procedure are in the | | | | PDT | | results section. | + +--------+ + + + | PHOSPHORUS | Routin | 10/16/2015 | | Results for this | | | e | 3:28 AM | | procedure are in the | | | | PDT | | results section. | + +--------+ + + + | MAGNESIUM | Routin | 10/16/2015 | | Results for this | | | e | 3:28 AM | | procedure are in the | | | | PDT | | results section. | + +--------+ + + + | HEPATIC FUNCTION | Routin | 10/16/2015 | | Results for this | | PANEL | e | 3:28 AM | | procedure are in the | | | | PDT | | results section. | + +--------+ + + + | BASIC METABOLIC | Routin | 10/16/2015 | | Results for this | | PANEL | e | 3:28 AM | | procedure are in the | | | | PDT | | results section. | + +--------+ + + + | EXTERNAL LAB: CBC | Routin | 10/15/2015 | | Results for this | | | e | 5:47 AM | | procedure are in the | | | | PDT | | results section. | + +--------+ + + + | PROCALCITONIN, SERUM | Routin | 10/15/2015 | | Results for this | | | e | 3:57 AM | | procedure are in the | | | | PDT | | results section. | + +--------+ + + + | PROTIME INR | Routin | 10/15/2015 | | Results for this | | | e | 3:57 AM | | procedure are in the | | | | PDT | | results section. | + +--------+ + + + | PHOSPHORUS | Routin | 10/15/2015 | | Results for this | | | e | 3:57 AM | | procedure are in the | | | | PDT | | results section. | + +--------+ + + + | MAGNESIUM | Routin | 10/15/2015 | | Results for this | | | e | 3:57 AM | | procedure are in the | | | | PDT | | results section. | + +--------+ + + + | BASIC METABOLIC | Routin | 10/15/2015 | | Results for this | | PANEL | e | 3:57 AM | | procedure are in the | | | | PDT | | results section. | + +--------+ + + + | HISTORICAL | Timed | 10/14/2015 | | Results for this | | MICROBIOLOGY RESULT | | 5:37 PM | | procedure are in the | | | | PDT | | results section. | + +--------+ + + + | CBC NO DIFFERENTIAL | Routin | 10/14/2015 | | Results for this | | | e | 3:11 PM | | procedure are in the | | | | PDT | | results section. | + +--------+ + + + | URINALYSIS WITH | Routin | 10/14/2015 | | Results for this | | MICROSCOPIC IF | e | 10:27 AM | | procedure are in the | | INDICATED | | PDT | | results section. | + +--------+ + + + | EOSINOPHIL SMEAR, | Routin | 10/14/2015 | | Results for this | | URINE | e | 10:27 AM | | procedure are in the | | | | PDT | | results section. | + +--------+ + + + | SODIUM, URINE, | Routin | 10/14/2015 | | Results for this | | RANDOM | e | 10:27 AM | | procedure are in the | | | | PDT | | results section. | + +--------+ + + + | PROTEIN, URINE, | Routin | 10/14/2015 | | Results for this | | RANDOM | e | 10:27 AM | | procedure are in the | | | | PDT | | results section. | + +--------+ + + + | CREATININE, URINE, | Routin | 10/14/2015 | | Results for this | | RANDOM | e | 10:27 AM | | procedure are in the | | | | PDT | | results section. | + +--------+ + + + | TYPE AND SCREEN | Routin | 10/14/2015 | | Results for this | | | e | 6:42 AM | | procedure are in the | | | | PDT | | results section. | + +--------+ + + + | EXTERNAL LAB: CBC | Routin | 10/14/2015 | | Results for this | | | e | 5:42 AM | | procedure are in the | | | | PDT | | results section. | + +--------+ + + + | XR CHEST 1 VIEW | Routin | 10/14/2015 | | Results for this | | | e | 5:20 AM | | procedure are in the | | | | PDT | | results section. | + +--------+ + + + | EXTERNAL LAB: CBC | Routin | 10/14/2015 | | Results for this | | | e | 4:09 AM | | procedure are in the | | | | PDT | | results section. | + +--------+ + + + | PHOSPHORUS | Routin | 10/14/2015 | | Results for this | | | e | 4:09 AM | | procedure are in the | | | | PDT | | results section. | + +--------+ + + + | MAGNESIUM | Routin | 10/14/2015 | | Results for this | | | e | 4:09 AM | | procedure are in the | | | | PDT | | results section. | + +--------+ + + + | HEPATIC FUNCTION | Routin | 10/14/2015 | | Results for this | | PANEL | e | 4:09 AM | | procedure are in the | | | | PDT | | results section. | + +--------+ + + + | BASIC METABOLIC | Routin | 10/14/2015 | | Results for this | | PANEL | e | 4:09 AM | | procedure are in the | | | | PDT | | results section. | + +--------+ + + + | POTASSIUM | Routin | 10/13/2015 | | Results for this | | | e | 6:13 PM | | procedure are in the | | | | PDT | | results section. | + +--------+ + + + | XR CHEST 1 VIEW | Routin | 10/13/2015 | | Results for this | | | e | 5:29 AM | | procedure are in the | | | | PDT | | results section. | + +--------+ + + + | EXTERNAL LAB: CBC | Routin | 10/13/2015 | | Results for this | | | e | 4:02 AM | | procedure are in the | | | | PDT | | results section. | + +--------+ + + + | PROTIME INR | Routin | 10/13/2015 | | Results for this | | | e | 4:02 AM | | procedure are in the | | | | PDT | | results section. | + +--------+ + + + | PHOSPHORUS | Routin | 10/13/2015 | | Results for this | | | e | 4:02 AM | | procedure are in the | | | | PDT | | results section. | + +--------+ + + + | MAGNESIUM | Routin | 10/13/2015 | | Results for this | | | e | 4:02 AM | | procedure are in the | | | | PDT | | results section. | + +--------+ + + + | HEPATIC FUNCTION | Routin | 10/13/2015 | | Results for this | | PANEL | e | 4:02 AM | | procedure are in the | | | | PDT | | results section. | + +--------+ + + + | BASIC METABOLIC | Routin | 10/13/2015 | | Results for this | | PANEL | e | 4:02 AM | | procedure are in the | | | | PDT | | results section. | + +--------+ + + + | XR CHEST 1 VIEW | Routin | 10/12/2015 | | Results for this | | | e | 2:01 PM | | procedure are in the | | | | PDT | | results section. | + +--------+ + + + | ALLERGEN CHICK PEA | Timed | 10/12/2015 | | Results for this | | IGE | | 11:41 AM | | procedure are in the | | | | PDT | | results section. | + +--------+ + + + | XR CHEST 1 VIEW | Routin | 10/12/2015 | | Results for this | | | e | 5:25 AM | | procedure are in the | | | | PDT | | results section. | + +--------+ + + + | EXTERNAL LAB: CBC | Routin | 10/12/2015 | | Results for this | | | e | 3:21 AM | | procedure are in the | | | | PDT | | results section. | + +--------+ + + + | PTT | Routin | 10/12/2015 | | Results for this | | | e | 3:21 AM | | procedure are in the | | | | PDT | | results section. | + +--------+ + + + | PROTIME INR | Routin | 10/12/2015 | | Results for this | | | e | 3:21 AM | | procedure are in the | | | | PDT | | results section. | + +--------+ + + + | PHOSPHORUS | Routin | 10/12/2015 | | Results for this | | | e | 3:21 AM | | procedure are in the | | | | PDT | | results section. | + +--------+ + + + | MAGNESIUM | Routin | 10/12/2015 | | Results for this | | | e | 3:21 AM | | procedure are in the | | | | PDT | | results section. | + +--------+ + + + | HEPATIC FUNCTION | Routin | 10/12/2015 | | Results for this | | PANEL | e | 3:21 AM | | procedure are in the | | | | PDT | | results section. | + +--------+ + + + | BASIC METABOLIC | Routin | 10/12/2015 | | Results for this | | PANEL | e | 3:21 AM | | procedure are in the | | | | PDT | | results section. | + +--------+ + + + | EXTERNAL LAB: CBC | Routin | 10/11/2015 | | Results for this | | | e | 4:41 PM | | procedure are in the | | | | PDT | | results section. | + +--------+ + + + | PTT | Routin | 10/11/2015 | | Results for this | | | e | 4:41 PM | | procedure are in the | | | | PDT | | results section. | + +--------+ + + + | PROTIME INR | Routin | 10/11/2015 | | Results for this | | | e | 4:41 PM | | procedure are in the | | | | PDT | | results section. | + +--------+ + + + | FIBRINOGEN | Routin | 10/11/2015 | | Results for this | | | e | 4:41 PM | | procedure are in the | | | | PDT | | results section. | + +--------+ + + + | XR CHEST 1 VIEW | Routin | 10/11/2015 | | Results for this | | | e | 11:53 AM | | procedure are in the | | | | PDT | | results section. | + +--------+ + + + | EXTERNAL LAB: CBC | Routin | 10/11/2015 | | Results for this | | | e | 8:53 AM | | procedure are in the | | | | PDT | | results section. | + +--------+ + + + | PROTIME INR | Routin | 10/11/2015 | | Results for this | | | e | 8:53 AM | | procedure are in the | | | | PDT | | results section. | + +--------+ + + + | ECG 12 LEAD | Routin | 10/11/2015 | | Results for this | | | e | 6:38 AM | | procedure are in the | | | | PDT | | results section. | + +--------+ + + + | XR ABDOMEN AP | Routin | 10/11/2015 | | Results for this | | | e | 5:58 AM | | procedure are in the | | | | PDT | | results section. | + +--------+ + + + | XR CHEST 1 VIEW | Routin | 10/11/2015 | | Results for this | | | e | 5:57 AM | | procedure are in the | | | | PDT | | results section. | + +--------+ + + + | EXTERNAL LAB: CBC | Routin | 10/11/2015 | | Results for this | | | e | 4:54 AM | | procedure are in the | | | | PDT | | results section. | + +--------+ + + + | PHOSPHORUS | Routin | 10/11/2015 | | Results for this | | | e | 4:54 AM | | procedure are in the | | | | PDT | | results section. | + +--------+ + + + | MAGNESIUM | Routin | 10/11/2015 | | Results for this | | | e | 4:54 AM | | procedure are in the | | | | PDT | | results section. | + +--------+ + + + | HEPATIC FUNCTION | Routin | 10/11/2015 | | Results for this | | PANEL | e | 4:54 AM | | procedure are in the | | | | PDT | | results section. | + +--------+ + + + | BASIC METABOLIC | Routin | 10/11/2015 | | Results for this | | PANEL | e | 4:54 AM | | procedure are in the | | | | PDT | | results section. | + +--------+ + + + | POTASSIUM | Routin | 10/10/2015 | | Results for this | | | e | 6:46 PM | | procedure are in the | | | | PDT | | results section. | + +--------+ + + + | PHOSPHORUS | Routin | 10/10/2015 | | Results for this | | | e | 6:46 PM | | procedure are in the | | | | PDT | | results section. | + +--------+ + + + | MAGNESIUM | Routin | 10/10/2015 | | Results for this | | | e | 6:46 PM | | procedure are in the | | | | PDT | | results section. | + +--------+ + + + | XR CHEST 1 VIEW | Routin | 10/10/2015 | | Results for this | | | e | 7:12 AM | | procedure are in the | | | | PDT | | results section. | + +--------+ + + + | EXTERNAL LAB: | Timed | 10/10/2015 | | Results for this | | PROTEIN, TOTAL | | 6:18 AM | | procedure are in the | | | | PDT | | results section. | + +--------+ + + + | LACTATE | Timed | 10/10/2015 | | Results for this | | DEHYDROGENASE, BODY | | 6:18 AM | | procedure are in the | | FLUID | | PDT | | results section. | + +--------+ + + + | CELL COUNT, BODY | Timed | 10/10/2015 | | Results for this | | FLUID | | 6:18 AM | | procedure are in the | | | | PDT | | results section. | + +--------+ + + + | CULTURE, BODY FLUID, | Timed | 10/10/2015 | | Results for this | | STERILE, SMEAR, | | 6:18 AM | | procedure are in the | | WITH ANAEROBES | | PDT | | results section. | + +--------+ + + + | GLUCOSE, BODY FLUID | Timed | 10/10/2015 | | Results for this | | | | 6:18 AM | | procedure are in the | | | | PDT | | results section. | + +--------+ + + + | PH, BODY FLUID | Timed | 10/10/2015 | | Results for this | | | | 6:18 AM | | procedure are in the | | | | PDT | | results section. | + +--------+ + + + | RETIC COUNT | Routin | 10/10/2015 | | Results for this | | | e | 5:30 AM | | procedure are in the | | | | PDT | | results section. | + +--------+ + + + | BILIRUBIN, TOTAL AND | Routin | 10/10/2015 | | Results for this | | DIRECT | e | 5:30 AM | | procedure are in the | | | | PDT | | results section. | + +--------+ + + + | LACTATE | Routin | 10/10/2015 | | Results for this | | DEHYDROGENASE | e | 5:30 AM | | procedure are in the | | | | PDT | | results section. | + +--------+ + + + | HAPTOGLOBIN | Routin | 10/10/2015 | | Results for this | | | e | 5:30 AM | | procedure are in the | | | | PDT | | results section. | + +--------+ + + + | EXTERNAL LAB: CBC | Routin | 10/10/2015 | | Results for this | | | e | 4:43 AM | | procedure are in the | | | | PDT | | results section. | + +--------+ + + + | PHOSPHORUS | Routin | 10/10/2015 | | Results for this | | | e | 4:43 AM | | procedure are in the | | | | PDT | | results section. | + +--------+ + + + | MAGNESIUM | Routin | 10/10/2015 | | Results for this | | | e | 4:43 AM | | procedure are in the | | | | PDT | | results section. | + +--------+ + + + | HEPATIC FUNCTION | Routin | 10/10/2015 | | Results for this | | PANEL | e | 4:43 AM | | procedure are in the | | | | PDT | | results section. | + +--------+ + + + | BASIC METABOLIC | Routin | 10/10/2015 | | Results for this | | PANEL | e | 4:43 AM | | procedure are in the | | | | PDT | | results section. | + +--------+ + + + | CT CHEST WO CONTRAST | Routin | 10/09/2015 | | Results for this | | | e | 3:58 PM | | procedure are in the | | | | PDT | | results section. | + +--------+ + + + | CALCIUM, IONIZED | Routin | 10/09/2015 | | Results for this | | | e | 9:59 AM | | procedure are in the | | | | PDT | | results section. | + +--------+ + + + | XR CHEST 1 VIEW | Routin | 10/09/2015 | | Results for this | | | e | 7:56 AM | | procedure are in the | | | | PDT | | results section. | + +--------+ + + + | EXTERNAL LAB: CBC | Routin | 10/09/2015 | | Results for this | | | e | 3:26 AM | | procedure are in the | | | | PDT | | results section. | + +--------+ + + + | PHOSPHORUS | Routin | 10/09/2015 | | Results for this | | | e | 3:26 AM | | procedure are in the | | | | PDT | | results section. | + +--------+ + + + | MAGNESIUM | Routin | 10/09/2015 | | Results for this | | | e | 3:26 AM | | procedure are in the | | | | PDT | | results section. | + +--------+ + + + | HEPATIC FUNCTION | Routin | 10/09/2015 | | Results for this | | PANEL | e | 3:26 AM | | procedure are in the | | | | PDT | | results section. | + +--------+ + + + | BASIC METABOLIC | Routin | 10/09/2015 | | Results for this | | PANEL | e | 3:26 AM | | procedure are in the | | | | PDT | | results section. | + +--------+ + + + | XR CHEST 1 VIEW | Routin | 10/08/2015 | | Results for this | | | e | 5:03 AM | | procedure are in the | | | | PDT | | results section. | + +--------+ + + + | EXTERNAL LAB: CBC | Routin | 10/08/2015 | | Results for this | | | e | 4:16 AM | | procedure are in the | | | | PDT | | results section. | + +--------+ + + + | PROTIME INR | Routin | 10/08/2015 | | Results for this | | | e | 4:16 AM | | procedure are in the | | | | PDT | | results section. | + +--------+ + + + | PHOSPHORUS | Routin | 10/08/2015 | | Results for this | | | e | 4:16 AM | | procedure are in the | | | | PDT | | results section. | + +--------+ + + + | MAGNESIUM | Routin | 10/08/2015 | | Results for this | | | e | 4:16 AM | | procedure are in the | | | | PDT | | results section. | + +--------+ + + + | HEPATIC FUNCTION | Routin | 10/08/2015 | | Results for this | | PANEL | e | 4:16 AM | | procedure are in the | | | | PDT | | results section. | + +--------+ + + + | BASIC METABOLIC | Routin | 10/08/2015 | | Results for this | | PANEL | e | 4:16 AM | | procedure are in the | | | | PDT | | results section. | + +--------+ + + + | SODIUM | Routin | 10/07/2015 | | Results for this | | | e | 6:25 PM | | procedure are in the | | | | PDT | | results section. | + +--------+ + + + | HEMOGLOBIN AND | Routin | 10/07/2015 | | Results for this | | HEMATOCRIT | e | 2:46 PM | | procedure are in the | | | | PDT | | results section. | + +--------+ + + + | SODIUM | Routin | 10/07/2015 | | Results for this | | | e | 2:46 PM | | procedure are in the | | | | PDT | | results section. | + +--------+ + + + | ECHO COMPLETE | Routin | 10/07/2015 | | Results for this | | | e | 2:20 PM | | procedure are in the | | | | PDT | | results section. | + +--------+ + + + | SODIUM | Routin | 10/07/2015 | | Results for this | | | e | 11:42 AM | | procedure are in the | | | | PDT | | results section. | + +--------+ + + + | SODIUM | Routin | 10/07/2015 | | Results for this | | | e | 6:49 AM | | procedure are in the | | | | PDT | | results section. | + +--------+ + + + | EXTERNAL LAB: CBC | Routin | 10/07/2015 | | Results for this | | | e | 5:34 AM | | procedure are in the | | | | PDT | | results section. | + +--------+ + + + | PROTIME INR | Routin | 10/07/2015 | | Results for this | | | e | 5:34 AM | | procedure are in the | | | | PDT | | results section. | + +--------+ + + + | URIC ACID | Routin | 10/07/2015 | | Results for this | | | e | 5:34 AM | | procedure are in the | | | | PDT | | results section. | + +--------+ + + + | PHOSPHORUS | Routin | 10/07/2015 | | Results for this | | | e | 5:34 AM | | procedure are in the | | | | PDT | | results section. | + +--------+ + + + | HEPATIC FUNCTION | Routin | 10/07/2015 | | Results for this | | PANEL | e | 5:34 AM | | procedure are in the | | | | PDT | | results section. | + +--------+ + + + | BASIC METABOLIC | Routin | 10/07/2015 | | Results for this | | PANEL | e | 5:34 AM | | procedure are in the | | | | PDT | | results section. | + +--------+ + + + | PROTIME INR | Routin | 10/07/2015 | | Results for this | | | e | 3:57 AM | | procedure are in the | | | | PDT | | results section. | + +--------+ + + + | SODIUM | Routin | 10/06/2015 | | Results for this | | | e | 10:15 PM | | procedure are in the | | | | PDT | | results section. | + +--------+ + + + | BASIC METABOLIC | Routin | 10/06/2015 | | Results for this | | PANEL | e | 6:46 PM | | procedure are in the | | | | PDT | | results section. | + +--------+ + + + | SODIUM | Routin | 10/06/2015 | | Results for this | | | e | 3:20 PM | | procedure are in the | | | | PDT | | results section. | + +--------+ + + + | SODIUM | Routin | 10/06/2015 | | Results for this | | | e | 11:09 AM | | procedure are in the | | | | PDT | | results section. | + +--------+ + + + | IRON AND IRON | Routin | 10/06/2015 | | Results for this | | BINDING CAPACITY | e | 10:18 AM | | procedure are in the | | | | PDT | | results section. | + +--------+ + + + | FERRITIN | Routin | 10/06/2015 | | Results for this | | | e | 10:18 AM | | procedure are in the | | | | PDT | | results section. | + +--------+ + + + | XR CHEST 1 VIEW | Routin | 10/06/2015 | | Results for this | | | e | 9:46 AM | | procedure are in the | | | | PDT | | results section. | + +--------+ + + + | SODIUM | Routin | 10/06/2015 | | Results for this | | | e | 8:19 AM | | procedure are in the | | | | PDT | | results section. | + +--------+ + + + | XR CHEST 1 VIEW | Routin | 10/06/2015 | | Results for this | | | e | 5:54 AM | | procedure are in the | | | | PDT | | results section. | + +--------+ + + + | CULTURE, BODY FLUID, | Timed | 10/06/2015 | | Results for this | | STERILE, SMEAR, | | 4:56 AM | | procedure are in the | | WITH ANAEROBES | | PDT | | results section. | + +--------+ + + + | EXTERNAL LAB: | Timed | 10/06/2015 | | Results for this | | PROTEIN, TOTAL | | 4:48 AM | | procedure are in the | | | | PDT | | results section. | + +--------+ + + + | LACTATE | Timed | 10/06/2015 | | Results for this | | DEHYDROGENASE, BODY | | 4:48 AM | | procedure are in the | | FLUID | | PDT | | results section. | + +--------+ + + + | CELL COUNT, BODY | Timed | 10/06/2015 | | Results for this | | FLUID | | 4:48 AM | | procedure are in the | | | | PDT | | results section. | + +--------+ + + + | CHOLESTEROL, BODY | Timed | 10/06/2015 | | Results for this | | FLUID | | 4:48 AM | | procedure are in the | | | | PDT | | results section. | + +--------+ + + + | GLUCOSE, BODY FLUID | Timed | 10/06/2015 | | Results for this | | | | 4:48 AM | | procedure are in the | | | | PDT | | results section. | + +--------+ + + + | PH, BODY FLUID | Timed | 10/06/2015 | | Results for this | | | | 4:48 AM | | procedure are in the | | | | PDT | | results section. | + +--------+ + + + | EXTERNAL LAB: CBC | Routin | 10/06/2015 | | Results for this | | | e | 4:03 AM | | procedure are in the | | | | PDT | | results section. | + +--------+ + + + | PROTIME INR | Routin | 10/06/2015 | | Results for this | | | e | 4:03 AM | | procedure are in the | | | | PDT | | results section. | + +--------+ + + + | PHOSPHORUS | Routin | 10/06/2015 | | Results for this | | | e | 4:03 AM | | procedure are in the | | | | PDT | | results section. | + +--------+ + + + | MAGNESIUM | Routin | 10/06/2015 | | Results for this | | | e | 4:03 AM | | procedure are in the | | | | PDT | | results section. | + +--------+ + + + | HEPATIC FUNCTION | Routin | 10/06/2015 | | Results for this | | PANEL | e | 4:03 AM | | procedure are in the | | | | PDT | | results section. | + +--------+ + + + | BASIC METABOLIC | Routin | 10/06/2015 | | Results for this | | PANEL | e | 4:03 AM | | procedure are in the | | | | PDT | | results section. | + +--------+ + + + | MISC LAB REFERRAL | Routin | 10/06/2015 | | Results for this | | | e | 2:17 AM | | procedure are in the | | | | PDT | | results section. | + +--------+ + + + | SODIUM, URINE, | Routin | 10/06/2015 | | Results for this | | RANDOM | e | 2:17 AM | | procedure are in the | | | | PDT | | results section. | + +--------+ + + + | OSMOLALITY, URINE | Routin | 10/06/2015 | | Results for this | | | e | 2:17 AM | | procedure are in the | | | | PDT | | results section. | + +--------+ + + + | CHLORIDE, URINE, | Routin | 10/06/2015 | | Results for this | | RANDOM | e | 2:17 AM | | procedure are in the | | | | PDT | | results section. | + +--------+ + + + | MISC LAB REFERRAL | Routin | 10/05/2015 | | Results for this | | | e | 10:59 PM | | procedure are in the | | | | PDT | | results section. | + +--------+ + + + | SODIUM | Routin | 10/05/2015 | | Results for this | | | e | 10:59 PM | | procedure are in the | | | | PDT | | results section. | + +--------+ + + + | OSMOLALITY, SERUM | Routin | 10/05/2015 | | Results for this | | | e | 10:59 PM | | procedure are in the | | | | PDT | | results section. | + +--------+ + + + | LACTATE | Routin | 10/05/2015 | | Results for this | | DEHYDROGENASE | e | 10:59 PM | | procedure are in the | | | | PDT | | results section. | + +--------+ + + + | CT CHEST ABDOMEN | Routin | 10/05/2015 | | Results for this | | PELVIS WO CONTRAST | e | 6:57 PM | | procedure are in the | | | | PDT | | results section. | + +--------+ + + + | CT HEAD WO CONTRAST | Routin | 10/05/2015 | | Results for this | | | e | 6:57 PM | | procedure are in the | | | | PDT | | results section. | + +--------+ + + + | SODIUM | Routin | 10/05/2015 | | Results for this | | | e | 5:20 PM | | procedure are in the | | | | PDT | | results section. | + +--------+ + + + | LACTIC ACID | Routin | 10/05/2015 | | Results for this | | | e | 5:20 PM | | procedure are in the | | | | PDT | | results section. | + +--------+ + + + | PROTIME INR | Routin | 10/05/2015 | | Results for this | | | e | 12:38 PM | | procedure are in the | | | | PDT | | results section. | + +--------+ + + + | SODIUM | Routin | 10/05/2015 | | Results for this | | | e | 12:38 PM | | procedure are in the | | | | PDT | | results section. | + +--------+ + + + | URIC ACID | Routin | 10/05/2015 | | Results for this | | | e | 11:05 AM | | procedure are in the | | | | PDT | | results section. | + +--------+ + + + | XR CHEST 1 VIEW | Routin | 10/05/2015 | | Results for this | | | e | 10:10 AM | | procedure are in the | | | | PDT | | results section. | + +--------+ + + + | EXTERNAL LAB: CBC | Routin | 10/05/2015 | | Results for this | | | e | 4:19 AM | | procedure are in the | | | | PDT | | results section. | + +--------+ + + + | PROTIME INR | Routin | 10/05/2015 | | Results for this | | | e | 4:19 AM | | procedure are in the | | | | PDT | | results section. | + +--------+ + + + | PHOSPHORUS | Routin | 10/05/2015 | | Results for this | | | e | 4:19 AM | | procedure are in the | | | | PDT | | results section. | + +--------+ + + + | MAGNESIUM | Routin | 10/05/2015 | | Results for this | | | e | 4:19 AM | | procedure are in the | | | | PDT | | results section. | + +--------+ + + + | LACTATE | Routin | 10/05/2015 | | Results for this | | DEHYDROGENASE | e | 4:19 AM | | procedure are in the | | | | PDT | | results section. | + +--------+ + + + | HEPATIC FUNCTION | Routin | 10/05/2015 | | Results for this | | PANEL | e | 4:19 AM | | procedure are in the | | | | PDT | | results section. | + +--------+ + + + | BASIC METABOLIC | Routin | 10/05/2015 | | Results for this | | PANEL | e | 4:19 AM | | procedure are in the | | | | PDT | | results section. | + +--------+ + + + | URINALYSIS WITH | Routin | 10/04/2015 | | Results for this | | MICROSCOPIC IF | e | 3:32 PM | | procedure are in the | | INDICATED | | PDT | | results section. | + +--------+ + + + | C3 AND C4 | Routin | 10/04/2015 | | Results for this | | | e | 3:32 PM | | procedure are in the | | | | PDT | | results section. | + +--------+ + + + | URINALYSIS, | Routin | 10/04/2015 | | Results for this | | MICROSCOPIC ONLY | e | 3:32 PM | | procedure are in the | | | | PDT | | results section. | + +--------+ + + + | EOSINOPHIL SMEAR, | Routin | 10/04/2015 | | Results for this | | URINE | e | 3:32 PM | | procedure are in the | | | | PDT | | results section. | + +--------+ + + + | ANTISTREPTOLYSIN O, | Routin | 10/04/2015 | | Results for this | | QUANT | e | 3:32 PM | | procedure are in the | | | | PDT | | results section. | + +--------+ + + + | CULTURE, URINE | Routin | 10/04/2015 | | Results for this | | | e | 3:32 PM | | procedure are in the | | | | PDT | | results section. | + +--------+ + + + | SODIUM | Routin | 10/04/2015 | | Results for this | | | e | 3:32 PM | | procedure are in the | | | | PDT | | results section. | + +--------+ + + + | EXTERNAL LAB: DEON | Routin | 10/04/2015 | | Results for this | | | e | 4:40 AM | | procedure are in the | | | | PDT | | results section. | + +--------+ + + + | PROTIME INR | Routin | 10/04/2015 | | Results for this | | | e | 4:40 AM | | procedure are in the | | | | PDT | | results section. | + +--------+ + + + | PHOSPHORUS | Routin | 10/04/2015 | | Results for this | | | e | 4:40 AM | | procedure are in the | | | | PDT | | results section. | + +--------+ + + + | MAGNESIUM | Routin | 10/04/2015 | | Results for this | | | e | 4:40 AM | | procedure are in the | | | | PDT | | results section. | + +--------+ + + + | VANCOMYCIN, TROUGH | Routin | 10/04/2015 | | Results for this | | | e | 4:40 AM | | procedure are in the | | | | PDT | | results section. | + +--------+ + + + | HEPATIC FUNCTION | Routin | 10/04/2015 | | Results for this | | PANEL | e | 4:40 AM | | procedure are in the | | | | PDT | | results section. | + +--------+ + + + | BASIC METABOLIC | Routin | 10/04/2015 | | Results for this | | PANEL | e | 4:40 AM | | procedure are in the | | | | PDT | | results section. | + +--------+ + + + | SODIUM | Routin | 10/04/2015 | | Results for this | | | e | 12:34 AM | | procedure are in the | | | | PDT | | results section. | + +--------+ + + + | OSMOLALITY, URINE | Routin | 10/03/2015 | | Results for this | | | e | 8:58 PM | | procedure are in the | | | | PDT | | results section. | + +--------+ + + + | MISC LAB REFERRAL | Routin | 10/03/2015 | | Results for this | | | e | 8:57 PM | | procedure are in the | | | | PDT | | results section. | + +--------+ + + + | SODIUM | Routin | 10/03/2015 | | Results for this | | | e | 8:41 PM | | procedure are in the | | | | PDT | | results section. | + +--------+ + + + | POC GLUCOSE | Routin | 10/03/2015 | | Results for this | | | e | 4:35 PM | | procedure are in the | | | | PDT | | results section. | + +--------+ + + + | ACTH | Routin | 10/03/2015 | | Results for this | | | e | 3:50 PM | | procedure are in the | | | | PDT | | results section. | + +--------+ + + + | SODIUM | Routin | 10/03/2015 | | Results for this | | | e | 3:50 PM | | procedure are in the | | | | PDT | | results section. | + +--------+ + + + | SODIUM | Routin | 10/03/2015 | | Results for this | | | e | 12:43 PM | | procedure are in the | | | | PDT | | results section. | + +--------+ + + + | VANCOMYCIN, TROUGH | Routin | 10/03/2015 | | Results for this | | | e | 12:43 PM | | procedure are in the | | | | PDT | | results section. | + +--------+ + + + | HIV RNA, | Routin | 10/03/2015 | | Results for this | | QUANTITATIVE, PCR | e | 12:38 PM | | procedure are in the | | | | PDT | | results section. | + +--------+ + + + | POC GLUCOSE | Routin | 10/03/2015 | | Results for this | | | e | 11:17 AM | | procedure are in the | | | | PDT | | results section. | + +--------+ + + + | POC GLUCOSE | Routin | 10/03/2015 | | Results for this | | | e | 9:37 AM | | procedure are in the | | | | PDT | | results section. | + +--------+ + + + | POC GLUCOSE | Routin | 10/03/2015 | | Results for this | | | e | 8:01 AM | | procedure are in the | | | | PDT | | results section. | + +--------+ + + + | SODIUM | Routin | 10/03/2015 | | Results for this | | | e | 7:58 AM | | procedure are in the | | | | PDT | | results section. | + +--------+ + + + | POC GLUCOSE | Routin | 10/03/2015 | | Results for this | | | e | 5:51 AM | | procedure are in the | | | | PDT | | results section. | + +--------+ + + + | POC GLUCOSE | Routin | 10/03/2015 | | Results for this | | | e | 4:52 AM | | procedure are in the | | | | PDT | | results section. | + +--------+ + + + | EXTERNAL LAB: CBC | Routin | 10/03/2015 | | Results for this | | | e | 3:45 AM | | procedure are in the | | | | PDT | | results section. | + +--------+ + + + | CORTISOL, PM | Routin | 10/03/2015 | | Results for this | | | e | 3:45 AM | | procedure are in the | | | | PDT | | results section. | + +--------+ + + + | PROTIME INR | Routin | 10/03/2015 | | Results for this | | | e | 3:45 AM | | procedure are in the | | | | PDT | | results section. | + +--------+ + + + | TSH | Routin | 10/03/2015 | | Results for this | | | e | 3:45 AM | | procedure are in the | | | | PDT | | results section. | + +--------+ + + + | PHOSPHORUS | Routin | 10/03/2015 | | Results for this | | | e | 3:45 AM | | procedure are in the | | | | PDT | | results section. | + +--------+ + + + | MAGNESIUM | Routin | 10/03/2015 | | Results for this | | | e | 3:45 AM | | procedure are in the | | | | PDT | | results section. | + +--------+ + + + | HEMOGLOBIN A1C | Routin | 10/03/2015 | | Results for this | | | e | 3:45 AM | | procedure are in the | | | | PDT | | results section. | + +--------+ + + + | HEPATIC FUNCTION | Routin | 10/03/2015 | | Results for this | | PANEL | e | 3:45 AM | | procedure are in the | | | | PDT | | results section. | + +--------+ + + + | BASIC METABOLIC | Routin | 10/03/2015 | | Results for this | | PANEL | e | 3:45 AM | | procedure are in the | | | | PDT | | results section. | + +--------+ + + + | POC GLUCOSE | Routin | 10/03/2015 | | Results for this | | | e | 3:43 AM | | procedure are in the | | | | PDT | | results section. | + +--------+ + + + | POC GLUCOSE | Routin | 10/03/2015 | | Results for this | | | e | 2:43 AM | | procedure are in the | | | | PDT | | results section. | + +--------+ + + + | SODIUM | Routin | 10/03/2015 | | Results for this | | | e | 12:39 AM | | procedure are in the | | | | PDT | | results section. | + +--------+ + + + | POC GLUCOSE | Routin | 10/03/2015 | | Results for this | | | e | 12:32 AM | | procedure are in the | | | | PDT | | results section. | + +--------+ + + + | POC GLUCOSE | Routin | 10/02/2015 | | Results for this | | | e | 10:23 PM | | procedure are in the | | | | PDT | | results section. | + +--------+ + + + | POC GLUCOSE | Routin | 10/02/2015 | | Results for this | | | e | 9:17 PM | | procedure are in the | | | | PDT | | results section. | + +--------+ + + + | SODIUM | Routin | 10/02/2015 | | Results for this | | | e | 8:08 PM | | procedure are in the | | | | PDT | | results section. | + +--------+ + + + | POC GLUCOSE | Routin | 10/02/2015 | | Results for this | | | e | 8:07 PM | | procedure are in the | | | | PDT | | results section. | + +--------+ + + + | POC GLUCOSE | Routin | 10/02/2015 | | Results for this | | | e | 7:33 PM | | procedure are in the | | | | PDT | | results section. | + +--------+ + + + | POC GLUCOSE | Routin | 10/02/2015 | | Results for this | | | e | 6:20 PM | | procedure are in the | | | | PDT | | results section. | + +--------+ + + + | POC GLUCOSE | Routin | 10/02/2015 | | Results for this | | | e | 5:10 PM | | procedure are in the | | | | PDT | | results section. | + +--------+ + + + | SODIUM | Routin | 10/02/2015 | | Results for this | | | e | 4:14 PM | | procedure are in the | | | | PDT | | results section. | + +--------+ + + + | POC GLUCOSE | Routin | 10/02/2015 | | Results for this | | | e | 4:11 PM | | procedure are in the | | | | PDT | | results section. | + +--------+ + + + | POC GLUCOSE | Routin | 10/02/2015 | | Results for this | | | e | 3:06 PM | | procedure are in the | | | | PDT | | results section. | + +--------+ + + + | SODIUM | Routin | 10/02/2015 | | Results for this | | | e | 2:05 PM | | procedure are in the | | | | PDT | | results section. | + +--------+ + + + | POC GLUCOSE | Routin | 10/02/2015 | | Results for this | | | e | 1:56 PM | | procedure are in the | | | | PDT | | results section. | + +--------+ + + + | POC GLUCOSE | Routin | 10/02/2015 | | Results for this | | | e | 1:05 PM | | procedure are in the | | | | PDT | | results section. | + +--------+ + + + | HEPATITIS PANEL, | Routin | 10/02/2015 | | Results for this | | ACUTE | e | 12:01 PM | | procedure are in the | | | | PDT | | results section. | + +--------+ + + + | SODIUM | Routin | 10/02/2015 | | Results for this | | | e | 12:01 PM | | procedure are in the | | | | PDT | | results section. | + +--------+ + + + | POC GLUCOSE | Routin | 10/02/2015 | | Results for this | | | e | 11:59 AM | | procedure are in the | | | | PDT | | results section. | + +--------+ + + + | POC GLUCOSE | Routin | 10/02/2015 | | Results for this | | | e | 11:19 AM | | procedure are in the | | | | PDT | | results section. | + +--------+ + + + | HIV 1 SCREEN, RAPID | Routin | 10/02/2015 | | Results for this | | | e | 10:36 AM | | procedure are in the | | | | PDT | | results section. | + +--------+ + + + | SODIUM | Routin | 10/02/2015 | | Results for this | | | e | 10:36 AM | | procedure are in the | | | | PDT | | results section. | + +--------+ + + + | POC GLUCOSE | Routin | 10/02/2015 | | Results for this | | | e | 10:10 AM | | procedure are in the | | | | PDT | | results section. | + +--------+ + + + | SODIUM | Routin | 10/02/2015 | | Results for this | | | e | 7:59 AM | | procedure are in the | | | | PDT | | results section. | + +--------+ + + + | ECHO COMPLETE | Routin | 10/02/2015 | | Results for this | | | e | 7:30 AM | | procedure are in the | | | | PDT | | results section. | + +--------+ + + + | POC GLUCOSE | Routin | 10/02/2015 | | Results for this | | | e | 6:12 AM | | procedure are in the | | | | PDT | | results section. | + +--------+ + + + | SODIUM | Routin | 10/02/2015 | | Results for this | | | e | 6:08 AM | | procedure are in the | | | | PDT | | results section. | + +--------+ + + + | XR CHEST 1 VIEW | Routin | 10/02/2015 | | Results for this | | | e | 5:28 AM | | procedure are in the | | | | PDT | | results section. | + +--------+ + + + | EXTERNAL LAB: CBC | Routin | 10/02/2015 | | Results for this | | | e | 3:30 AM | | procedure are in the | | | | PDT | | results section. | + +--------+ + + + | PROCALCITONIN, SERUM | Routin | 10/02/2015 | | Results for this | | | e | 3:30 AM | | procedure are in the | | | | PDT | | results section. | + +--------+ + + + | PROTIME INR | Routin | 10/02/2015 | | Results for this | | | e | 3:30 AM | | procedure are in the | | | | PDT | | results section. | + +--------+ + + + | PHOSPHORUS | Routin | 10/02/2015 | | Results for this | | | e | 3:30 AM | | procedure are in the | | | | PDT | | results section. | + +--------+ + + + | MAGNESIUM | Routin | 10/02/2015 | | Results for this | | | e | 3:30 AM | | procedure are in the | | | | PDT | | results section. | + +--------+ + + + | HEPATIC FUNCTION | Routin | 10/02/2015 | | Results for this | | PANEL | e | 3:30 AM | | procedure are in the | | | | PDT | | results section. | + +--------+ + + + | BASIC METABOLIC | Routin | 10/02/2015 | | Results for this | | PANEL | e | 3:30 AM | | procedure are in the | | | | PDT | | results section. | + +--------+ + + + | MRI LUMBAR SPINE WO | Routin | 10/02/2015 | | Results for this | | CONTRAST | e | 3:06 AM | | procedure are in the | | | | PDT | | results section. | + +--------+ + + + | MRI THORACIC SPINE | Routin | 10/02/2015 | | Results for this | | WO CONTRAST | e | 2:46 AM | | procedure are in the | | | | PDT | | results section. | + +--------+ + + + | MRI CERVICAL SPINE | Routin | 10/02/2015 | | Results for this | | WO CONTRAST | e | 2:31 AM | | procedure are in the | | | | PDT | | results section. | + +--------+ + + + | MRI BRAIN WO | Routin | 10/02/2015 | | Results for this | | CONTRAST | e | 2:31 AM | | procedure are in the | | | | PDT | | results section. | + +--------+ + + + | SODIUM | Routin | 10/01/2015 | | Results for this | | | e | 10:54 PM | | procedure are in the | | | | PDT | | results section. | + +--------+ + + + | XR CHEST 1 VIEW | Routin | 10/01/2015 | | Results for this | | | e | 10:48 PM | | procedure are in the | | | | PDT | | results section. | + +--------+ + + + | SODIUM | Routin | 10/01/2015 | | Results for this | | | e | 9:05 PM | | procedure are in the | | | | PDT | | results section. | + +--------+ + + + | GRAM STAIN, REFLEX | Timed | 10/01/2015 | | Results for this | | SPUTUM CULTURE | | 7:44 PM | | procedure are in the | | | | PDT | | results section. | + +--------+ + + + | XR CHEST 1 VIEW | Routin | 10/01/2015 | | Results for this | | | e | 7:42 PM | | procedure are in the | | | | PDT | | results section. | + +--------+ + + + | CULTURE, BLOOD, 2ND | Timed | 10/01/2015 | | Results for this | | SPECIMEN (NON-ORD) | | 7:41 PM | | procedure are in the | | | | PDT | | results section. | + +--------+ + + + | MISC LAB REFERRAL | Routin | 10/01/2015 | | Results for this | | | e | 7:38 PM | | procedure are in the | | | | PDT | | results section. | + +--------+ + + + | OSMOLALITY, URINE | Routin | 10/01/2015 | | Results for this | | | e | 7:38 PM | | procedure are in the | | | | PDT | | results section. | + +--------+ + + + | CULTURE, BLOOD | Timed | 10/01/2015 | | Results for this | | | | 7:37 PM | | procedure are in the | | | | PDT | | results section. | + +--------+ + + + | CALCIUM, IONIZED | Routin | 10/01/2015 | | Results for this | | | e | 7:36 PM | | procedure are in the | | | | PDT | | results section. | + +--------+ + + + | EXTERNAL LAB: CBC | Routin | 10/01/2015 | | Results for this | | | e | 7:35 PM | | procedure are in the | | | | PDT | | results section. | + +--------+ + + + | MRSA NAAT | Routin | 10/01/2015 | | Results for this | | | e | 7:35 PM | | procedure are in the | | | | PDT | | results section. | + +--------+ + + + | MISC LAB REFERRAL | Routin | 10/01/2015 | | Results for this | | | e | 7:35 PM | | procedure are in the | | | | PDT | | results section. | + +--------+ + + + | PTT | Routin | 10/01/2015 | | Results for this | | | e | 7:35 PM | | procedure are in the | | | | PDT | | results section. | + +--------+ + + + | PROTIME INR | Routin | 10/01/2015 | | Results for this | | | e | 7:35 PM | | procedure are in the | | | | PDT | | results section. | + +--------+ + + + | OSMOLALITY, SERUM | Routin | 10/01/2015 | | Results for this | | | e | 7:35 PM | | procedure are in the | | | | PDT | | results section. | + +--------+ + + + | COMPREHENSIVE | Routin | 10/01/2015 | | Results for this | | METABOLIC PANEL | e | 7:35 PM | | procedure are in the | | | | PDT | | results section. | + +--------+ + + + | POC GLUCOSE | Routin | 10/01/2015 | | Results for this | | | e | 7:33 PM | | procedure are in the | | | | PDT | | results section. | + +--------+ + + + | POC CG 4, ISTAT | Routin | 10/01/2015 | | Results for this | | ARTERIAL | e | 7:28 PM | | procedure are in the | | | | PDT | | results section. | + +--------+ + + + | CT CHEST W CONTRAST | Routin | 10/01/2015 | | Results for this | | | e | 6:48 PM | | procedure are in the | | | | PDT | | results section. | + +--------+ + + + | CT CERVICAL SPINE WO | Routin | 10/01/2015 | | Results for this | | CONTRAST | e | 5:29 AM | | procedure are in the | | | | PDT | | results section. | + +--------+ + + + | CT HEAD WO CONTRAST | Routin | 10/01/2015 | | Results for this | | | e | 5:29 AM | | procedure are in the | | | | PDT | | results section. | + +--------+ + + + | XR CERVICAL SPINE 2 | Routin | 10/01/2015 | | Results for this | | OR 3 VIEWS | e | 5:29 AM | | procedure are in the | | | | PDT | | results section. | + +--------+ + + + | XR CHEST 2 VIEWS | Routin | 10/01/2015 | | Results for this | | | e | 5:29 AM | | procedure are in the | | | | PDT | | results section. | + +--------+ + + + documented in this encounter Results Echo Limited (11/11/2015 1:17 PM PDT) + + | Specimen | + + | | + + + + + | Impressions | Performed At | + + + | 1. Resting tachycardia (HR>100bpm). 2. A limited 2-dimensional | | | transthoracic echocardiogram with limited spectral and color flow | | | Doppler was performed. 3. This was a technically adequate study. 4. | | | Overall left ventricular systolic function is normal with, an EF | | | between 65 - 70 %. 5. The left ventricle cavity size is normal. 6. | | | There is mild concentric left ventricular hypertrophy. 7. The right | | | ventricle is normal in size. 8. The aortic valve is trileaflet, and | | | appears anatomically normal. No aortic stenosis or regurgitation. 9. | | | Normal appearing mitral valve. 10. There is trace mitral | | | regurgitation. 11. Severe tricuspid regurgitation present. 12. | | | Large, mobile vegetation attached to the septal tricuspid valve | | | leaflet. 13. Pulmonic valve appears structurally normal. 14. There | | | is no pericardial effusion. 15. The IVC was not well visualized. | | + + + + + + | Narrative | Performed At | + + + | Patient Name: YANG RIDLEY Date of : 1985 | | | Performing Physician: Kitty Leger MD | | | | | | INDICATIONS f/u endocarditis CONCLUSIONS | | | 1. Resting tachycardia (HR>100bpm). 2. A limited | | | 2-dimensional transthoracic echocardiogram with limited spectral and | | | color flow Doppler was performed. 3. This was a technically adequate | | | study. 4. Overall left ventricular systolic function is normal with, | | | an EF between 65 - 70 %. 5. The left ventricle cavity size is normal. | | | 6. There is mild concentric left ventricular hypertrophy. 7. The | | | right ventricle is normal in size. 8. The aortic valve is trileaflet, | | | and appears anatomically normal. No aortic stenosis or regurgitation. | | | 9. Normal appearing mitral valve. 10. There is trace mitral | | | regurgitation. 11. Severe tricuspid regurgitation present. 12. | | | Large, mobile vegetation attached to the septal tricuspid valve | | | leaflet. 13. Pulmonic valve appears structurally normal. 14. There | | | is no pericardial effusion. 15. The IVC was not well visualized. | | | FINDINGS -------- ECG rhythm: Resting tachycardia (HR>100bpm). | | | Study: A limited 2-dimensional transthoracic echocardiogram with | | | limited spectral and color flow Doppler was performed. Study: This | | | was a technically adequate study. Left Ventricle: Overall left | | | ventricular systolic function is normal with, an EF between 65 - 70 %. | | | Left Ventricle: The left ventricle cavity size is normal. Left | | | Ventricle: There is mild concentric left ventricular hypertrophy. | | | Right Ventricle: The right ventricle is normal in size. Aortic Valve: | | | The aortic valve is trileaflet, and appears anatomically normal. No | | | aortic stenosis or regurgitation. Mitral Valve: Normal appearing | | | mitral valve. Mitral Valve: There is trace mitral regurgitation. | | | Tricuspid Valve: Severe tricuspid regurgitation present. Tricuspid | | | Valve: Large, mobile vegetation attached to the septal tricuspid valve | | | leaflet. Pulmonic Valve: Pulmonic valve appears structurally normal. | | | Pericardium: There is no pericardial effusion. IVC/Hepatic Veins: | | | The IVC was not well visualized. MEASUREMENTS | | | EDV(Teich): 104.70 ml IVSd: 1.10 cm LVIDd: 4.74 cm LVPWd: | | | 1.11 cm %FS: 31.17 % EF(Teich): 58.88 % ESV(Teich): | | | 43.05 ml IVSs: 1.27 cm LVIDs: 3.26 cm LVPWs: 1.64 cm | | | SV(Teich): 61.65 ml TR maxP.68 mmHg TR Vmax: 3.22 m/s | | | Under Trimmer: CM Authenticated by: Jarred Arnett MD Report | | | Date/Time: 11-11-2015 17:42:18 | | + + + + + | Procedure Note | + + | Erasmo Payne Conversion - 11/01/2018 7:23 PM PDT Patient Name: Kim RIDLEY of | | : 1985 Performing Physician: Kitty Leger | | INDICATIONS f | | /u endocarditis CONCLUSIONS 1. Resting tachycardia (HR>100bpm).2. A limited | | 2-dimensional transthoracic echocardiogram with limited spectral and color flow Doppler | | was performed.3. This was a technically adequate study.4. Overall left ventricular | | systolic function is normal with, an EF between 65 - 70 %.5. The left ventricle cavity | | size is normal.6. There is mild concentric left ventricular hypertrophy.7. The right | | ventricle is normal in size.8. The aortic valve is trileaflet, and appears anatomically | | normal. No aortic stenosis or regurgitation.9. Normal appearing mitral valve.10. There | | is trace mitral regurgitation.11. Severe tricuspid regurgitation present.12. Large, | | mobile vegetation attached to the septal tricuspid valve leaflet.13. Pulmonic valve | | appears structurally normal.14. There is no pericardial effusion.15. The IVC was not | | well visualized. FINDINGS--------ECG rhythm: Resting tachycardia (HR>100bpm).Study: A | | limited 2-dimensional transthoracic echocardiogram with limited spectral and color flow | | Doppler was performed.Study: This was a technically adequate study.Left Ventricle: | | Overall left ventricular systolic function is normal with, an EF between 65 - 70 %.Left | | Ventricle: The left ventricle cavity size is normal.Left Ventricle: There is mild | | concentric left ventricular hypertrophy.Right Ventricle: The right ventricle is normal | | in size.Aortic Valve: The aortic valve is trileaflet, and appears anatomically normal. | | No aortic stenosis or regurgitation.Mitral Valve: Normal appearing mitral valve.Mitral | | Valve: There is trace mitral regurgitation.Tricuspid Valve: Severe tricuspid | | regurgitation present.Tricuspid Valve: Large, mobile vegetation attached to the septal | | tricuspid valve leaflet.Pulmonic Valve: Pulmonic valve appears structurally | | normal.Pericardium: There is no pericardial effusion.IVC/Hepatic Veins: The IVC was not | | well visualized. MEASUREMENTS EDV(Teich): 104.70 mlIVSd: 1.10 cmLVIDd: | | 4.74 cmLVPWd: 1.11 cm%FS: 31.17 %EF(Teich): 58.88 %ESV(Teich): 43.05 mlIVSs: | | 1.27 cmLVIDs: 3.26 cmLVPWs: 1.64 cmSV(Teich): 61.65 mlTR maxP.68 mmHgTR | | Vmax: 3.22 m/s Under Trimmer: CMAuthenticated by: Jarred BETHEAdarren Date/Time: | | 11-11-2015 17:42:18 IMPRESSION: 1. Resting tachycardia (HR>100bpm).2. A limited | | 2-dimensional transthoracic echocardiogram with limited spectral and color flow Doppler | | was performed.3. This was a technically adequate study.4. Overall left ventricular | | systolic function is normal with, an EF between 65 - 70 %.5. The left ventricle cavity | | size is normal.6. There is mild concentric left ventricular hypertrophy.7. The right | | ventricle is normal in size.8. The aortic valve is trileaflet, and appears anatomically | | normal. No aortic stenosis or regurgitation.9. Normal appearing mitral valve.10. There | | is trace mitral regurgitation.11. Severe tricuspid regurgitation present.12. Large, | | mobile vegetation attached to the septal tricuspid valve leaflet.13. Pulmonic valve | | appears structurally normal.14. There is no pericardial effusion.15. The IVC was not | | well visualized. | |Mitral Valve: Normal appearing mitral valve. | |Mitral Valve: There is trace mitral regurgitation. | |Tricuspid Valve: Severe tricuspid regurgitation present. | |Tricuspid Valve: Large, mobile vegetation attached to the septal tricuspid valve leaflet. | |Pulmonic Valve: Pulmonic valve appears structurally normal. | |Pericardium: There is no pericardial effusion. | |IVC/Hepatic Veins: The IVC was not well visualized. | | | |MEASUREMENTS | | | |EDV(Teich): 104.70 ml | |IVSd: 1.10 cm | |LVIDd: 4.74 cm | |LVPWd: 1.11 cm | |%FS: 31.17 % | |EF(Teich): 58.88 % | |ESV(Teich): 43.05 ml | |IVSs: 1.27 cm | |LVIDs: 3.26 cm | |LVPWs: 1.64 cm | |SV(Teich): 61.65 ml | |TR maxP.68 mmHg | |TR Vmax: 3.22 m/s | | | |Under Trimmer: CM | |Authenticated by: Jarred Arnett MD | |Report Date/Time: 11-11-2015 17:42:18 | | | |IMPRESSION: | |1. Resting tachycardia (HR>100bpm). | |2. A limited 2-dimensional transthoracic echocardiogram with limited spectral and color rayna w Doppler was performed. | |3. This was a technically adequate study. | |4. Overall left ventricular systolic function is normal with, an EF between 65 - 70 %. | |5. The left ventricle cavity size is normal. | |6. There is mild concentric left ventricular hypertrophy. | |7. The right ventricle is normal in size. | |8. The aortic valve is trileaflet, and appears anatomically normal. No aortic stenosis or r egurgitation. | |9. Normal appearing mitral valve. | |10. There is trace mitral regurgitation. | |11. Severe tricuspid regurgitation present. | |12. Large, mobile vegetation attached to the septal tricuspid valve leaflet. | |13. Pulmonic valve appears structurally normal. | |14. There is no pericardial effusion. | |15. The IVC was not well visualized. | + + Sedimentation rate, automated (11/09/2015 5:16 AM PDT) + + + + + + | Component | Value | Ref Range | Performed | Pathologist | | | | | At | Signature | + + + + + + | Sed Rate | 79 (H)Comment: Testing | 0 - 15 mm/Hr | EXTERNAL | | | | performed at [facility], [address] | | LAB | | | | [address], | | | | | | [place] [address] | | | | + + + + + + + + | Specimen | + + | Blood specimen | | (specimen) | + + + +---------+ + + | Performing | Address | City/State/Zipcode | Phone Number | | Organization | | | | + +---------+ + + | EXTERNAL LAB | | | | + +---------+ + + External Lab: CBC (11/09/2015 5:16 AM PDT) + + + + + + | Component | Value | Ref Range | Performed | Pathologist | | | | | At | Signature | + + + + + + | WBC | 13.43 (H)Comment: | 3.80 - 11.00 | EXTERNAL | | | | Testing performed at | K/uL | LAB | | | | [facility], [address] | | | | | | [place] | | | | | | [address] | | | | + + + + + + | Non- | 2.63 (L)Comment: Testing | 4.20 - 5.70 | EXTERNAL | | | Red Blood | performed at [facility], [address] | [address] | LAB | | | Cells | [address], | | | | | Counted | [place] [address] | | | | + + + + + + | Hemoglobin | 7.5 (L)Comment: Testing | 13.2 - 17.0 | EXTERNAL | | | | performed at [facility], [address] | g/dL | LAB | | | | [address], | | | | | | [place] [address] | | | | + + + + + + | Hematocrit, | 23.4 (L)Comment: Testing | 39.0 - 50.0 % | EXTERNAL | | | POC | performed at [facility], [address] | | LAB | | | | [address], | | | | | | [place] [address] | | | | + + + + + + | MCV | 89.0Comment: Testing | 80.0 - 100.0 fl | EXTERNAL | | | | performed at [facility], [address] | | LAB | | | | [address], | | | | | | [place] [address] | | | | + + + + + + | MCH | 28.7Comment: Testing | 27.0 - 34.0 pg | EXTERNAL | | | | performed at [facility], [address] | | LAB | | | | [address], | | | | | | [place] [address] | | | | + + + + + + | MCHC | 32.2Comment: Testing | 32.0 - 35.5 | EXTERNAL | | | | performed at [facility], [address] | g/dL | LAB | | | | [address], | | | | | | [place] [address] | | | | + + + + + + | RDW-CV | 55.6 (H)Comment: Testing | 37 - 53 fl | EXTERNAL | | | | performed at [facility], [address] | | LAB | | | | [address], | | | | | | [place] [address] | | | | + + + + + + | Platelet | 460 (H)Comment: Testing | 150 - 400 K/uL | EXTERNAL | | | Count | performed at [facility], [address] | | LAB | | | Plasma | [address], | | | | | | [place] [address] | | | | + + + + + + | MPV | 7.0Comment: Testing | fl | EXTERNAL | | | | performed at [facility], [address] | | LAB | | | | [address], | | | | | | [place] [address] | | | | + + + + + + | Differentia | AUTOMATEDComment: | | EXTERNAL | | | l Type | Testing performed at | | LAB | | | | [facility], [address] | | | | | | [place] | | | | | | [address] | | | | + + + + + + | % Segmented | 81.08Comment: Testing | % | EXTERNAL | | | | performed at [facility], [address] | | LAB | | | Neutrophils | [address], | | | | | | [place] [address] | | | | + + + + + + | % | 8.87Comment: Testing | % | EXTERNAL | | | Lymphocytes | performed at [facility], [address] | | LAB | | | | [address], | | | | | | [place] [address] | | | | + + + + + + | % Monocytes | 6.02Comment: Testing | % | EXTERNAL | | | | performed at [facility], [address] | | LAB | | | | [address], | | | | | | [place] [address] | | | | + + + + + + | % | 3.06Comment: Testing | % | EXTERNAL | | | Eosinophils | performed at [facility], [address] | | LAB | | | | [address], | | | | | | [place] [address] | | | | + + + + + + | % Basophils | 0.97Comment: Testing | % | EXTERNAL | | | | performed at [facility], [address] | | LAB | | | | [address], | | | | | | [place] [address] | | | | + + + + + + | Absolute | 10.89 (H)Comment: | 1.90 - 7.40 | EXTERNAL | | | Segmented | Testing performed at | K/uL | LAB | | | Neutrophils | [facility], [address] | | | | | | [place] | | | | | | [address] | | | | + + + + + + | Absolute | 1.19Comment: Testing | 1.00 - 3.90 | EXTERNAL | | | Lymphocytes | performed at [facility], [address] | K/uL | LAB | | | | [address], | | | | | | [place] [address] | | | | + + + + + + | Absolute | 0.81 (H)Comment: Testing | 0.00 - 0.80 | EXTERNAL | | | Monocytes | performed at [facility], [address] | [address] | LAB | | | | [address], | | | | | | [place] [address] | | | | + + + + + + | Absolute | 0.41Comment: Testing | 0.00 - 0.50 | EXTERNAL | | | Eosinophils | performed at [facility], [address] | K/uL | LAB | | | | [address], | | | | | | [place] [address] | | | | + + + + + + | Absolute | 0.13 (H)Comment: Testing | 0.00 - 0.10 | EXTERNAL | | | Basophils | performed at [facility], [address] | [address] | LAB | | | | [address], | | | | | | [place] [address] | | | | + + + + + + + + | Specimen | + + | Blood specimen | | (specimen) | + + + +---------+ + + | Performing | Address | City/State/Zipcode | Phone Number | | Organization | | | | + +---------+ + + | EXTERNAL LAB | | | | + +---------+ + + C-Reactive Protein (11/09/2015 5:16 AM PDT) + + + + + + | Component | Value | Ref Range | Performed | Pathologist | | | | | At | Signature | + + + + + + | CRP | 1.9 (H)Comment: Testing | mg/dL | EXTERNAL | | | | performed at [facility], [address] | | LAB | | | | [address], | | | | | | [place] [address] | | | | + + + + + + + + | Specimen | + + | Blood specimen | | (specimen) | + + + +---------+ + + | Performing | Address | City/State/Zipcode | Phone Number | | Organization | | | | + +---------+ + + | EXTERNAL LAB | | | | + +---------+ + + Basic Metabolic Panel (11/09/2015 5:16 AM PDT) + + + + + + | Component | Value | Ref Range | Performed | Pathologist | | | | | At | Signature | + + + + + + | Na | 140Comment: Testing | 135 - 145 | EXTERNAL | | | | performed at [facility], [address] | mmol/L | LAB | | | | [address], | | | | | | [place] [address] | | | | + + + + + + | K | 4.1Comment: Testing | 3.5 - 4.9 | EXTERNAL | | | | performed at [facility], [address] | mmol/L | LAB | | | | [address], | | | | | | [place] [address] | | | | + + + + + + | Cl | 105Comment: Testing | 99 - 109 mmol/L | EXTERNAL | | | | performed at [facility], [address] | | LAB | | | | [address], | | | | | | [place] [address] | | | | + + + + + + | CO2 | 27Comment: Testing | 23 - 32 mmol/L | EXTERNAL | | | | performed at [facility], [address] | | LAB | | | | [address], | | | | | | [place] [address] | | | | + + + + + + | Anion Gap | 12Comment: Testing | 5 - 20 mmol/L | EXTERNAL | | | | performed at [facility], [address] | | LAB | | | | [address], | | | | | | [place] [address] | | | | + + + + + + | Glucose, | 91Comment: Testing | 65 - 99 mg/dL | EXTERNAL | | | Fasting | performed at [facility], [address] | | LAB | | | | [address], | | | | | | [place] [address] | | | | + + + + + + | BUN | 7 (L)Comment: Testing | 8 - 25 mg/dL | EXTERNAL | | | | performed at [facility], [address] | | LAB | | | | [address], | | | | | | [place] [address] | | | | + + + + + + | Creatinine | 0.7Comment: Testing | 0.70 - 1.30 | EXTERNAL | | | | performed at [facility], [address] | mg/dL | LAB | | | | [address], | | | | | | [place] [address] | | | | + + + + + + | BUN/Creatin | 10Comment: Testing | | EXTERNAL | | | ine Ratio | performed at [facility], [address] | | LAB | | | | [address], | | | | | | [place] [address] | | | | + + + + + + | Calcium | 8.8Comment: Testing | 8.5 - 10.5 | EXTERNAL | | | | performed at [facility], [address] | mg/dL | LAB | | | | [address], | | | | | | [place] [address] | | | | + + + + + + | Estimated | >60Comment: GFR <60: | mL/min/1.73m2 | EXTERNAL | | | GFR | CHRONIC KIDNEY DISEASE, | | LAB | | | | IF FOUND OVER A 3 MONTH | | | | | | PERIOD.GFR <15: KIDNEY | | | | | | FAILURE.FOR | | | | | | AMERICANS, MULTIPLY THE | | | | | | CALCULATED GFR BY | | | | | | 1.210.Testing performed | | | | | | at [facility], [address] | | | | | | [address], | | | | | | [place] [address] | | | | + + + + + + + + | Specimen | + + | Blood specimen | | (specimen) | + + + +---------+ + + | Performing | Address | City/State/Zipcode | Phone Number | | Organization | | | | + +---------+ + + | EXTERNAL LAB | | | | + +---------+ + + External Lab: CBC (11/05/2015 6:05 AM PDT) + + + + + + | Component | Value | Ref Range | Performed | Pathologist | | | | | At | Signature | + + + + + + | WBC | 11.76 (H)Comment: | 3.80 - 11.00 | EXTERNAL | | | | Testing performed at | K/uL | LAB | | | | [facility], [address] [facility] | | | | | | [place] | | | | | | [address] | | | | + + + + + + | Non- | 2.68 (L)Comment: Testing | 4.20 - 5.70 | EXTERNAL | | | Red Blood | performed at [facility], [address] | M/[address]L | LAB | | | Cells | [address], | | | | | Counted | [place] [address] | | | | + + + + + + | Hemoglobin | 7.6 (L)Comment: Testing | 13.2 - 17.0 | EXTERNAL | | | | performed at [facility], [address] | g/dL | LAB | | | | [address], | | | | | | [place] [address] | | | | + + + + + + | Hematocrit, | 23.6 (L)Comment: Testing | 39.0 - 50.0 % | EXTERNAL | | | POC | performed at [facility], [address] | | LAB | | | | [address], | | | | | | [place] [address] | | | | + + + + + + | MCV | 87.9Comment: Testing | 80.0 - 100.0 fl | EXTERNAL | | | | performed at [facility], [address] | | LAB | | | | [address], | | | | | | [place] [address] | | | | + + + + + + | MCH | 28.5Comment: Testing | 27.0 - 34.0 pg | EXTERNAL | | | | performed at [facility], [address] | | LAB | | | | [address], | | | | | | [place] [address] | | | | + + + + + + | MCHC | 32.4Comment: Testing | 32.0 - 35.5 | EXTERNAL | | | | performed at [facility], [address] | g/dL | LAB | | | | [address], | | | | | | [place] [address] | | | | + + + + + + | RDW-CV | 51.6Comment: Testing | 37 - 53 fl | EXTERNAL | | | | performed at [facility], [address] | | LAB | | | | [address], | | | | | | [place] [address] | | | | + + + + + + | Platelet | 521 (H)Comment: Testing | 150 - 400 K/uL | EXTERNAL | | | Count | performed at [facility], [address] | | LAB | | | Plasma | [address], | | | | | | [place] [address] | | | | + + + + + + | MPV | 6.8Comment: Testing | fl | EXTERNAL | | | | performed at [facility], [address] | | LAB | | | | [address], | | | | | | [place], [place] [address] | | | | + + + + + + | Differentia | MANUALComment: Testing | | EXTERNAL | | | l Type | performed at [facility], [address] | | LAB | | | | [address], | | | | | | [place], [place] [address] | | | | + + + + + + | Segmented | 69Comment: Testing | % | EXTERNAL | | | Neutrophils | performed at [facility], [address] | | LAB | | | Manual | [address], | | | | | | [place], [place] [address] | | | | + + + + + + | % Bands | 3Comment: Testing | % | EXTERNAL | | | | performed at [facility], [address] | | LAB | | | | [address], | | | | | | [place], [place] [address] | | | | + + + + + + | Lymphocytes | 15Comment: Testing | % | EXTERNAL | | | Manual | performed at [facility], [address] | | LAB | | | | [address], | | | | | | [place] [address] | | | | + + + + + + | Monocytes | 4Comment: Testing | % | EXTERNAL | | | Manual | performed at [facility], [address] | | LAB | | | | [address], | | | | | | [place] [address] | | | | + + + + + + | Eosinophils | 9Comment: Testing | % | EXTERNAL | | | Manual | performed at [facility], [address] | | LAB | | | | [address], | | | | | | [place] [address] | | | | + + + + + + | Absolute | 8.12 (H)Comment: Testing | 1.90 - 7.40 | EXTERNAL | | | Neutrophils | performed at [facility], [address] | [address]L | LAB | | | | [address], | | | | | | [place] [address] | | | | + + + + + + | Bands | 0.35 (H)Comment: Testing | 0.00 - 0.20 | EXTERNAL | | | Manual | performed at [facility], [address] | [address] | LAB | | | | [address], | | | | | | [place] [address] | | | | + + + + + + | Absolute | 1.76Comment: Testing | 1.00 - 3.90 | EXTERNAL | | | Lymphocytes | performed at [facility], [address] | K/uL | LAB | | | | [address], | | | | | | [place] [address] | | | | + + + + + + | Absolute | 0.47Comment: Testing | 0.00 - 0.80 | EXTERNAL | | | Monocytes | performed at [facility], [address] | K/uL | LAB | | | | [address], | | | | | | [place] [address] | | | | + + + + + + | Absolute | 1.06 (H)Comment: Testing | 0.00 - 0.50 | EXTERNAL | | | Eosinophils | performed at [facility], [address] | [address] | LAB | | | | [address], | | | | | | [place] [address] | | | | + + + + + + | Platelet | INCREASEDComment: | | EXTERNAL | | | Estimate | Testing performed at | | LAB | | | | [facility], [address] | | | | | | [place] | | | | | | [address] | | | | + + + + + + | RBC | RBC AND PLT MORPHOLOGY | | EXTERNAL | | | Morphology | APPEAR NORMALComment: | | LAB | | | | Testing performed at | | | | | | [facility], [address] | | | | | | [place] | | | | | | [address] | | | | + + + + + + + + | Specimen | + + | Blood specimen | | (specimen) | + + + +---------+ + + | Performing | Address | City/State/Zipcode | Phone Number | | Organization | | | | + +---------+ + + | EXTERNAL LAB | | | | + +---------+ + + Basic Metabolic Panel (11/05/2015 6:05 AM PDT) + + + + + + | Component | Value | Ref Range | Performed | Pathologist | | | | | At | Signature | + + + + + + | Na | 141Comment: Testing | 135 - 145 | EXTERNAL | | | | performed at [facility], [address] | mmol/L | LAB | | | | [address], | | | | | | [place] [address] | | | | + + + + + + | K | 4.3Comment: Testing | 3.5 - 4.9 | EXTERNAL | | | | performed at [facility], [address] | mmol/L | LAB | | | | [address], | | | | | | [place] [address] | | | | + + + + + + | Cl | 106Comment: Testing | 99 - 109 mmol/L | EXTERNAL | | | | performed at [facility], [address] | | LAB | | | | [address], | | | | | | [place] [address] | | | | + + + + + + | CO2 | 29Comment: Testing | 23 - 32 mmol/L | EXTERNAL | | | | performed at [facility], [address] | | LAB | | | | [address], | | | | | | [place] [address] | | | | + + + + + + | Anion Gap | 10Comment: Testing | 5 - 20 mmol/L | EXTERNAL | | | | performed at [facility], [address] | | LAB | | | | [address], | | | | | | [place] [address] | | | | + + + + + + | Glucose, | 82Comment: Testing | 65 - 99 mg/dL | EXTERNAL | | | Fasting | performed at [facility], [address] | | LAB | | | | [address], | | | | | | [place] [address] | | | | + + + + + + | BUN | 11Comment: Testing | 8 - 25 mg/dL | EXTERNAL | | | | performed at [facility], [address] | | LAB | | | | [address], | | | | | | [place] [address] | | | | + + + + + + | Creatinine | 0.7Comment: Testing | 0.70 - 1.30 | EXTERNAL | | | | performed at [facility], [address] | mg/dL | LAB | | | | [address], | | | | | | [place] [address] | | | | + + + + + + | BUN/Creatin | 16Comment: Testing | | EXTERNAL | | | ine Ratio | performed at [facility], [address] | | LAB | | | | [address], | | | | | | [place] [address] | | | | + + + + + + | Calcium | 8.7Comment: Testing | 8.5 - 10.5 | EXTERNAL | | | | performed at [facility], [address] | mg/dL | LAB | | | | [address], | | | | | | [place] [address] | | | | + + + + + + | Estimated | >60Comment: GFR <60: | mL/min/1.73m2 | EXTERNAL | | | GFR | CHRONIC KIDNEY DISEASE, | | LAB | | | | IF FOUND OVER A 3 MONTH | | | | | | PERIOD.GFR <15: KIDNEY | | | | | | FAILURE.FOR | | | | | | AMERICANS, MULTIPLY THE | | | | | | CALCULATED GFR BY | | | | | | 1.210.Testing performed | | | | | | at [facility], [address] | | | | | | [address], | | | | | | [place] [address] | | | | + + + + + + + + | Specimen | + + | Blood specimen | | (specimen) | + + + +---------+ + + | Performing | Address | City/State/Zipcode | Phone Number | | Organization | | | | + +---------+ + + | EXTERNAL LAB | | | | + +---------+ + + External Lab: CBC (11/04/2015 4:51 AM PDT) + + + + + + | Component | Value | Ref Range | Performed | Pathologist | | | | | At | Signature | + + + + + + | WBC | 10.73Comment: Testing | 3.80 - 11.00 | EXTERNAL | | | | performed at [facility], [address] | K/uL | LAB | | | | [address], | | | | | | [place] [address] | | | | + + + + + + | Non- | 2.74 (L)Comment: Testing | 4.20 - 5.70 | EXTERNAL | | | Red Blood | performed at [facility], [address] | M/uL | LAB | | | Cells | [address], | | | | | Counted | [place] [address] | | | | + + + + + + | Hemoglobin | 8.0 (L)Comment: Testing | 13.2 - 17.0 | EXTERNAL | | | | performed at [facility], [address] | g/dL | LAB | | | | [address], | | | | | | [place] [address] | | | | + + + + + + | Hematocrit, | 24.0 (L)Comment: Testing | 39.0 - 50.0 % | EXTERNAL | | | POC | performed at [facility], [address] | | LAB | | | | [address], | | | | | | [place] [address] | | | | + + + + + + | MCV | 87.9Comment: Testing | 80.0 - 100.0 fl | EXTERNAL | | | | performed at [facility], [address] | | LAB | | | | [address], | | | | | | [place] [address] | | | | + + + + + + | MCH | 29.4Comment: Testing | 27.0 - 34.0 pg | EXTERNAL | | | | performed at [facility], [address] | | LAB | | | | [address], | | | | | | [place] [address] | | | | + + + + + + | MCHC | 33.4Comment: Testing | 32.0 - 35.5 | EXTERNAL | | | | performed at [facility], [address] | g/dL | LAB | | | | [address], | | | | | | [place] [address] | | | | + + + + + + | RDW-CV | 52.1Comment: Testing | 37 - 53 fl | EXTERNAL | | | | performed at [facility], [address] | | LAB | | | | [address], | | | | | | [place] [address] | | | | + + + + + + | Platelet | 532 (H)Comment: Testing | 150 - 400 K/uL | EXTERNAL | | | Count | performed at [facility], [address] | | LAB | | | Plasma | [address], | | | | | | [place] [address] | | | | + + + + + + | MPV | 6.8Comment: Testing | fl | EXTERNAL | | | | performed at [facility], [address] | | LAB | | | | [address], | | | | | | [place] [address] | | | | + + + + + + | Differentia | AUTOMATEDComment: | | EXTERNAL | | | l Type | Testing performed at | | LAB | | | | [facility], [address] | | | | | | [place] | | | | | | [address] | | | | + + + + + + | % Segmented | 68.90Comment: Testing | % | EXTERNAL | | | | performed at [facility], [address] | | LAB | | | Neutrophils | [address], | | | | | | [place] [address] | | | | + + + + + + | % | 12.03Comment: Testing | % | EXTERNAL | | | Lymphocytes | performed at [facility], [address] | | LAB | | | | [address], | | | | | | [place] [address] | | | | + + + + + + | % Monocytes | 8.87Comment: Testing | % | EXTERNAL | | | | performed at [facility], [address] | | LAB | | | | [address], | | | | | | [place] [address] | | | | + + + + + + | % | 8.63Comment: Testing | % | EXTERNAL | | | Eosinophils | performed at [facility], [address] | | LAB | | | | [address], | | | | | | [place] [address] | | | | + + + + + + | % Basophils | 1.57Comment: Testing | % | EXTERNAL | | | | performed at [facility], [address] | | LAB | | | | [address], | | | | | | [place] [address] | | | | + + + + + + | Absolute | 7.39Comment: Testing | 1.90 - 7.40 | EXTERNAL | | | Segmented | performed at [facility], [address] | K/uL | LAB | | | Neutrophils | [address], | | | | | | [place] [address] | | | | + + + + + + | Absolute | 1.29Comment: Testing | 1.00 - 3.90 | EXTERNAL | | | Lymphocytes | performed at [facility], [address] | K/uL | LAB | | | | [address], | | | | | | [place] [address] | | | | + + + + + + | Absolute | 0.95 (H)Comment: Testing | 0.00 - 0.80 | EXTERNAL | | | Monocytes | performed at [facility], [address] | [address] | | | | [address], | | | | | | [place] [address] | | | | + + + + + + | Absolute | 0.93 (H)Comment: Testing | 0.00 - 0.50 | EXTERNAL | | | Eosinophils | performed at [facility], [address] | LAB | | | | [address], | | | | | | [place] [address] | | | | + + + + + + | Absolute | 0.17 (H)Comment: Testing | 0.00 - 0.10 | EXTERNAL | | | Basophils | performed at [facility], [address] | LAB | | | | [address], | | | | | | [place] [address] | | | | + + + + + + + + | Specimen | + + | Blood specimen | | (specimen) | + + + +---------+ + + | Performing | Address | City/State/Zipcode | Phone Number | | Organization | | | | + +---------+ + + | EXTERNAL LAB | | | | + +---------+ + + Basic Metabolic Panel (11/04/2015 4:51 AM PDT) + + + + + + | Component | Value | Ref Range | Performed | Pathologist | | | | | At | Signature | + + + + + + | Na | 142Comment: Testing | 135 - 145 | EXTERNAL | | | | performed at [facility], [address] | mmol/L | LAB | | | | [address], | | | | | | [place] [address] | | | | + + + + + + | K | 4.0Comment: Testing | 3.5 - 4.9 | EXTERNAL | | | | performed at [facility], [address] | mmol/L | LAB | | | | [address], | | | | | | [place] [address] | | | | + + + + + + | Cl | 105Comment: Testing | 99 - 109 mmol/L | EXTERNAL | | | | performed at [facility], [address] | | LAB | | | | [address], | | | | | | [place] [address] | | | | + + + + + + | CO2 | 30Comment: Testing | 23 - 32 mmol/L | EXTERNAL | | | | performed at [facility], [address] | | LAB | | | | [address], | | | | | | [place] [address] | | | | + + + + + + | Anion Gap | 11Comment: Testing | 5 - 20 mmol/L | EXTERNAL | | | | performed at [facility], [address] | | LAB | | | | [address], | | | | | | [place] [address] | | | | + + + + + + | Glucose, | 83Comment: Testing | 65 - 99 mg/dL | EXTERNAL | | | Fasting | performed at [facility], [address] | | LAB | | | | [address], | | | | | | [place] [address] | | | | + + + + + + | BUN | 13Comment: Testing | 8 - 25 mg/dL | EXTERNAL | | | | performed at [facility], [address] | | LAB | | | | [address], | | | | | | [place] [address] | | | | + + + + + + | Creatinine | 0.9Comment: Testing | 0.70 - 1.30 | EXTERNAL | | | | performed at [facility], [address] | mg/dL | LAB | | | | [address], | | | | | | [place] [address] | | | | + + + + + + | BUN/Creatin | 14Comment: Testing | | EXTERNAL | | | ine Ratio | performed at [facility], [address] | | LAB | | | | [address], | | | | | | [place] [address] | | | | + + + + + + | Calcium | 8.1 (L)Comment: Testing | 8.5 - 10.5 | EXTERNAL | | | | performed at [facility], [address] | mg/dL | LAB | | | | [address] [address], | | | | | | [place] [address] | | | | + + + + + + | Estimated | >60Comment: GFR <60: | mL/min/1.73m2 | EXTERNAL | | | GFR | CHRONIC KIDNEY DISEASE, | | LAB | | | | IF FOUND OVER A 3 MONTH | | | | | | PERIOD.GFR <15: KIDNEY | | | | | | FAILURE.FOR | | | | | | AMERICANS, MULTIPLY THE | | | | | | CALCULATED GFR BY | | | | | | 1.210.Testing performed | | | | | | at [facility], [address] | | | | | | [address], | | | | | | [place] [address] | | | | + + + + + + + + | Specimen | + + | Blood specimen | | (specimen) | + + + +---------+ + + | Performing | Address | City/State/Zipcode | Phone Number | | Organization | | | | + +---------+ + + | EXTERNAL LAB | | | | + +---------+ + + Vancomycin, Trough (11/03/2015 10:11 AM PDT) + + + + + + | Component | Value | Ref Range | Performed | Pathologist | | | | | At | Signature | + + + + + + | Vancomycin | 6.2 (L)Comment: 15 to 20 | 10 - 20 ug/mL | EXTERNAL | | | Trough | ug/mL for meningitis, | | LAB | | | | osteomyelitis, | | | | | | endocarditis, sepsis, or | | | | | | healthcare associated | | | | | | pneumonia, or an SHAYY | | | | | | equal to or greater than | | | | | | 1.0 ug/mLTesting | | | | | | performed at [facility];[address] | | | | | | [address];[place], [place] | | | | | | [address] | | | | + + + + + + + + | Specimen | + + | Blood specimen | | (specimen) | + + + +---------+ + + | Performing | Address | City/State/Zipcode | Phone Number | | Organization | | | | + +---------+ + + | EXTERNAL LAB | | | | + +---------+ + + Type and Screen (11/02/2015 5:46 AM PDT) + + + + + + | Component | Value | Ref Range | Performed | Pathologist | | | | | At | Signature | + + + + + + | ABO Rh | O POSITIVE | | EXTERNAL | | | | | | LAB | | + + + + + + | ABO Rh | Testing performed at | | EXTERNAL | | | | [facility];[address] | | LAB | | | | [address];[place] [address] | | | | + + + + + + | Antibody | NOT DONE | | EXTERNAL | | | Screen | | | LAB | | + + + + + + | Antibody | Testing performed at | | EXTERNAL | | | Screen | [facility];[address] | | LAB | | | | [address];[place] [address] | | | | + + + + + + | BB BAND | [id number] | | EXTERNAL | | | | | | LAB | | + + + + + + | BB BAND | Testing performed at | | EXTERNAL | | | | [facility];[address] | | LAB | | | | Blvd;[place] [address] | | | | + + + + + + | TUBE | NEGATIVE | | EXTERNAL | | | ANTIBODY | | | LAB | | | SCREEN | | | | | + + + + + + | TUBE | Testing performed at | | EXTERNAL | | | ANTIBODY | [facility];[address] | | LAB | | | SCREEN | Blvd;[place] [address] | | | | + + + + + + + + | Specimen | + + | Blood specimen | | (specimen) | + + + +---------+ + + | Performing | Address | City/State/Zipcode | Phone Number | | Organization | | | | + +---------+ + + | EXTERNAL LAB | | | | + +---------+ + + Sedimentation rate, automated (11/02/2015 5:44 AM PDT) + + + + + + | Component | Value | Ref Range | Performed | Pathologist | | | | | At | Signature | + + + + + + | Sed Rate | 38 (H)Comment: Testing | 0 - 15 mm/Hr | EXTERNAL | | | | performed at [facility], [address] | | LAB | | | | [address], | | | | | | [place] [address] | | | | + + + + + + + + | Specimen | + + | Blood specimen | | (specimen) | + + + +---------+ + + | Performing | Address | City/State/Zipcode | Phone Number | | Organization | | | | + +---------+ + + | EXTERNAL LAB | | | | + +---------+ + + External Lab: CBC (11/02/2015 5:44 AM PDT) + + + + + + | Component | Value | Ref Range | Performed | Pathologist | | | | | At | Signature | + + + + + + | WBC | 12.90 (H)Comment: | 3.80 - 11.00 | EXTERNAL | | | | Testing performed at | K/uL | LAB | | | | [facility], [address] | | | | | | [place] | | | | | | [address] | | | | + + + + + + | Non- | 2.57 (L)Comment: Testing | 4.20 - 5.70 | EXTERNAL | | | Red Blood | performed at [facility], [address] | [address] | LAB | | | Cells | [address], | | | | | Counted | [place] [address] | | | | + + + + + + | Hemoglobin | 7.2 (L)Comment: Testing | 13.2 - 17.0 | EXTERNAL | | | | performed at [facility], [address] | g/dL | LAB | | | | [address], | | | | | | [place] [address] | | | | + + + + + + | Hematocrit, | 22.7 (L)Comment: Testing | 39.0 - 50.0 % | EXTERNAL | | | POC | performed at [facility], [address] | | LAB | | | | [address], | | | | | | [place] [address] | | | | + + + + + + | MCV | 88.5Comment: Testing | 80.0 - 100.0 fl | EXTERNAL | | | | performed at [facility], [address] | | LAB | | | | [address], | | | | | | [place] [address] | | | | + + + + + + | MCH | 28.1Comment: Testing | 27.0 - 34.0 pg | EXTERNAL | | | | performed at [facility], [address] | | LAB | | | | [address], | | | | | | [place] [address] | | | | + + + + + + | MCHC | 31.7 (L)Comment: Testing | 32.0 - 35.5 | EXTERNAL | | | | performed at [facility], [address] | g/dL | LAB | | | | [address], | | | | | | [place] [address] | | | | + + + + + + | RDW-CV | 50.8Comment: Testing | 37 - 53 fl | EXTERNAL | | | | performed at [facility], [address] | | LAB | | | | [address], | | | | | | [place] [address] | | | | + + + + + + | Platelet | 519 (H)Comment: Testing | 150 - 400 K/uL | EXTERNAL | | | Count | performed at [facility], [address] | | LAB | | | Plasma | [address], | | | | | | [place] [address] | | | | + + + + + + | MPV | 6.6Comment: Testing | fl | EXTERNAL | | | | performed at [facility], [address] | | LAB | | | | [address], | | | | | | [place] [address] | | | | + + + + + + | Differentia | AUTOMATEDComment: | | EXTERNAL | | | l Type | Testing performed at | | LAB | | | | [facility], [address] | | | | | | [place] | | | | | | [address] | | | | + + + + + + | % Segmented | 71.91Comment: Testing | % | EXTERNAL | | | | performed at [facility], [address] | | LAB | | | Neutrophils | [address], | | | | | | [place] [address] | | | | + + + + + + | % | 12.10Comment: Testing | % | EXTERNAL | | | Lymphocytes | performed at [facility], [address] | | LAB | | | | [address], | | | | | | [place] [address] | | | | + + + + + + | % Monocytes | 8.20Comment: Testing | % | EXTERNAL | | | | performed at [facility], [address] | | LAB | | | | [address], | | | | | | [place] [address] | | | | + + + + + + | % | 6.51Comment: Testing | % | EXTERNAL | | | Eosinophils | performed at [facility], [address] | | LAB | | | | [address], | | | | | | [place] [address] | | | | + + + + + + | % Basophils | 1.28Comment: Testing | % | EXTERNAL | | | | performed at [facility], [address] | | LAB | | | | [address], | | | | | | [place] [address] | | | | + + + + + + | Absolute | 9.28 (H)Comment: Testing | 1.90 - 7.40 | EXTERNAL | | | Segmented | performed at [facility], [address] | K/uL | LAB | | | Neutrophils | [address], | | | | | | [place], [place] [address] | | | | + + + + + + | Absolute | 1.56Comment: Testing | 1.00 - 3.90 | EXTERNAL | | | Lymphocytes | performed at [facility], [address] | K/uL | LAB | | | | [address], | | | | | | [place] [address] | | | | + + + + + + | Absolute | 1.06 (H)Comment: Testing | 0.00 - 0.80 | EXTERNAL | | | Monocytes | performed at [facility], [address] | K/[address] | LAB | | | | [address], | | | | | | [place] [address] | | | | + + + + + + | Absolute | 0.84 (H)Comment: Testing | 0.00 - 0.50 | EXTERNAL | | | Eosinophils | performed at [facility], [address] | [address] | LAB | | | | [address], | | | | | | [place] [address] | | | | + + + + + + | Absolute | 0.17 (H)Comment: Testing | 0.00 - 0.10 | EXTERNAL | | | Basophils | performed at [facility], [address] | [address] | LAB | | | | [address], | | | | | | [place] [address] | | | | + + + + + + + + | Specimen | + + | Blood specimen | | (specimen) | + + + +---------+ + + | Performing | Address | City/State/Zipcode | Phone Number | | Organization | | | | + +---------+ + + | EXTERNAL LAB | | | | + +---------+ + + C-Reactive Protein (11/02/2015 5:44 AM PDT) + + + + + + | Component | Value | Ref Range | Performed | Pathologist | | | | | At | Signature | + + + + + + | CRP | 7.2 (H)Comment: Testing | mg/dL | EXTERNAL | | | | performed at [facility];[address] | | LAB | | | | [address];[place], [place] | | | | | | [address] | | | | + + + + + + + + | Specimen | + + | Blood specimen | | (specimen) | + + + +---------+ + + | Performing | Address | City/State/Zipcode | Phone Number | | Organization | | | | + +---------+ + + | EXTERNAL LAB | | | | + +---------+ + + Phosphorus (11/02/2015 5:44 AM PDT) + + + + + + | Component | Value | Ref Range | Performed | Pathologist | | | | | At | Signature | + + + + + + | PHOSPHORUS | 4.7Comment: Testing | 2.3 - 4.8 mg/dL | EXTERNAL | | | | performed at [facility];[address] | | LAB | | | | [address];[place] | | | | | | [address] | | | | + + + + + + + + | Specimen | + + | Blood specimen | | (specimen) | + + + +---------+ + + | Performing | Address | City/State/Zipcode | Phone Number | | Organization | | | | + +---------+ + + | EXTERNAL LAB | | | | + +---------+ + + Magnesium (11/02/2015 5:44 AM PDT) + + + + + + | Component | Value | Ref Range | Performed | Pathologist | | | | | At | Signature | + + + + + + | Magnesium | 1.8Comment: Testing | 1.7 - 2.4 mg/dL | EXTERNAL | | | | performed at [facility];[address] | | LAB | | | | [address];[place], [place] | | | | | | [address] | | | | + + + + + + + + | Specimen | + + | Blood specimen | | (specimen) | + + + +---------+ + + | Performing | Address | City/State/Zipcode | Phone Number | | Organization | | | | + +---------+ + + | EXTERNAL LAB | | | | + +---------+ + + Vancomycin, Trough (11/02/2015 5:44 AM PDT) + + + + + + | Component | Value | Ref Range | Performed | Pathologist | | | | | At | Signature | + + + + + + | Vancomycin | 26.6 ()Comment: 15 to | 10 - 20 ug/mL | EXTERNAL | | | Trough | 20 ug/mL for meningitis, | | LAB | | | | osteomyelitis, | | | | | | endocarditis, sepsis, or | | | | | | healthcare associated | | | | | | pneumonia, or an SHAYY | | | | | | equal to or greater than | | | | | | 1.0 ug/mLCALLED TO | | | | | | PRAVEEN Willams ON 3OP AT 0622 | | | | | | BY TRREAD BACK RESULTS | | | | | | VERIFIEDTesting | | | | | | performed at [facility] | | | | | | [address];[place], [place] | | | | | | [address] | | | | + + + + + + + + | Specimen | + + | Blood specimen | | (specimen) | + + + +---------+ + + | Performing | Address | City/State/Zipcode | Phone Number | | Organization | | | | + +---------+ + + | EXTERNAL LAB | | | | + +---------+ + + Basic Metabolic Panel (11/02/2015 5:44 AM PDT) + + + + + + | Component | Value | Ref Range | Performed | Pathologist | | | | | At | Signature | + + + + + + | Na | 140Comment: Testing | 135 - 145 | EXTERNAL | | | | performed at [facility];[address] | mmol/L | LAB | | | | [address];[place] | | | | | | [address] | | | | + + + + + + | K | 4.0Comment: Testing | 3.5 - 4.9 | EXTERNAL | | | | performed at [facility];[address] | mmol/L | LAB | | | | [address];[place] | | | | | | [address] | | | | + + + + + + | Cl | 105Comment: Testing | 99 - 109 mmol/L | EXTERNAL | | | | performed at [facility];[address] | | LAB | | | | [address];[place] | | | | | | [address] | | | | + + + + + + | CO2 | 27Comment: Testing | 23 - 32 mmol/L | EXTERNAL | | | | performed at [facility];[address] | | LAB | | | | [address];[place] | | | | | | [address] | | | | + + + + + + | Anion Gap | 12Comment: Testing | 5 - 20 mmol/L | EXTERNAL | | | | performed at [facility];[address] | | LAB | | | | [address];[place] | | | | | | [address] | | | | + + + + + + | Glucose, | 89Comment: Testing | 65 - 99 mg/dL | EXTERNAL | | | Fasting | performed at [facility];[address] | | LAB | | | | [address];[place] | | | | | | [address] | | | | + + + + + + | BUN | 10Comment: Testing | 8 - 25 mg/dL | EXTERNAL | | | | performed at [facility];[address] | | LAB | | | | [address];[place] | | | | | | [address] | | | | + + + + + + | Creatinine | 1.1Comment: Testing | 0.70 - 1.30 | EXTERNAL | | | | performed at [facility];[address] | mg/dL | LAB | | | | [address];[place] | | | | | | [address] | | | | + + + + + + | BUN/Creatin | 9Comment: Testing | | EXTERNAL | | | ine Ratio | performed at [facility];[address] | | LAB | | | | [address];[place] | | | | | | [address] | | | | + + + + + + | Calcium | 8.3 (L)Comment: Testing | 8.5 - 10.5 | EXTERNAL | | | | performed at [facility];[address] | mg/dL | LAB | | | | [address];[place] | | | | | | [address] | | | | + + + + + + | Estimated | >60Comment: GFR <60: | mL/min/1.73m2 | EXTERNAL | | | GFR | CHRONIC KIDNEY DISEASE, | | LAB | | | | IF FOUND OVER A 3 MONTH | | | | | | PERIOD.GFR <15: KIDNEY | | | | | | FAILURE.FOR | | | | | | AMERICANS, MULTIPLY THE | | | | | | CALCULATED GFR BY | | | | | | 1.210.Testing performed | | | | | | at [facility];[address] | | | | | | [address];[place] [address] | | | | + + + + + + + + | Specimen | + + | Blood specimen | | (specimen) | + + + +---------+ + + | Performing | Address | City/State/Zipcode | Phone Number | | Organization | | | | + +---------+ + + | EXTERNAL LAB | | | | + +---------+ + + External Lab: DEON (11/01/2015 5:16 AM PDT) + + + + + + | Component | Value | Ref Range | Performed | Pathologist | | | | | At | Signature | + + + + + + | WBC | 13.09 (H)Comment: | 3.80 - 11.00 | EXTERNAL | | | | Testing performed at | K/uL | LAB | | | | [facility], [address] | | | | | | [place] | | | | | | [address] | | | | + + + + + + | Non- | 2.43 (L)Comment: Testing | 4.20 - 5.70 | EXTERNAL | | | Red Blood | performed at [facility], [address] | M/uL | LAB | | | Cells | [address], | | | | | Counted | [place] [address] | | | | + + + + + + | Hemoglobin | 6.9 (LL)Comment: RESULT | 13.2 - 17.0 | EXTERNAL | | | | READ BACK BY: Carolina BainOP | g/dL | LAB | | | | AT 0630 ON 11/01/2015 | | | | | | TH Testing performed at | | | | | | [facility], [address] | | | | | | [place] | | | | | | [address] | | | | + + + + + + | Hematocrit, | 21.5 (L)Comment: Testing | 39.0 - 50.0 % | EXTERNAL | | | POC | performed at [facility], [address] | | LAB | | | | [address], | | | | | | [place] [address] | | | | + + + + + + | MCV | 88.4Comment: Testing | 80.0 - 100.0 fl | EXTERNAL | | | | performed at [facility], [address] | | LAB | | | | [address], | | | | | | [place] [address] | | | | + + + + + + | MCH | 28.2Comment: Testing | 27.0 - 34.0 pg | EXTERNAL | | | | performed at [facility], [address] | | LAB | | | | [address], | | | | | | [place] [address] | | | | + + + + + + | MCHC | 31.9 (L)Comment: Testing | 32.0 - 35.5 | EXTERNAL | | | | performed at [facility], [address] | g/dL | LAB | | | | [address], | | | | | | [place] [address] | | | | + + + + + + | RDW-CV | 51.2Comment: Testing | 37 - 53 fl | EXTERNAL | | | | performed at [facility], [address] | | LAB | | | | [address], | | | | | | [place] [address] | | | | + + + + + + | Platelet | 452 (H)Comment: Testing | 150 - 400 K/uL | EXTERNAL | | | Count | performed at [facility], [address] | | LAB | | | Plasma | [address], | | | | | | [place] [address] | | | | + + + + + + | MPV | 6.7Comment: Testing | fl | EXTERNAL | | | | performed at [facility], [address] | | LAB | | | | [address], | | | | | | [place] [address] | | | | + + + + + + | Differentia | AUTOMATEDComment: | | EXTERNAL | | | l Type | Testing performed at | | LAB | | | | [facility], [address] | | | | | | [place] | | | | | | [address] | | | | + + + + + + | % Segmented | 74.36Comment: Testing | % | EXTERNAL | | | | performed at [facility], [address] | | LAB | | | Neutrophils | [address], | | | | | | [place] [address] | | | | + + + + + + | % | 9.93Comment: Testing | % | EXTERNAL | | | Lymphocytes | performed at [facility], [address] | | LAB | | | | [address], | | | | | | [place] [address] | | | | + + + + + + | % Monocytes | 7.87Comment: Testing | % | EXTERNAL | | | | performed at [facility], [address] | | LAB | | | | [address], | | | | | | [place] [address] | | | | + + + + + + | % | 6.71Comment: Testing | % | EXTERNAL | | | Eosinophils | performed at [facility], [address] | | LAB | | | | [address], | | | | | | [place] [address] | | | | + + + + + + | % Basophils | 1.13Comment: Testing | % | EXTERNAL | | | | performed at [facility], [address] | | LAB | | | | [address], | | | | | | [place] [address] | | | | + + + + + + | Absolute | 9.74 (H)Comment: Testing | 1.90 - 7.40 | EXTERNAL | | | Segmented | performed at [facility], [address] | K/uL | LAB | | | Neutrophils | [address], | | | | | | [place] [address] | | | | + + + + + + | Absolute | 1.30Comment: Testing | 1.00 - 3.90 | EXTERNAL | | | Lymphocytes | performed at [facility], [address] | K/uL | LAB | | | | [address], | | | | | | [place] [address] | | | | + + + + + + | Absolute | 1.03 (H)Comment: Testing | 0.00 - 0.80 | EXTERNAL | | | Monocytes | performed at [facility], [address] | K/uL | LAB | | | | [address], | | | | | | [place] [address] | | | | + + + + + + | Absolute | 0.88 (H)Comment: Testing | 0.00 - 0.50 | EXTERNAL | | | Eosinophils | performed at [facility], [address] | K/uL | LAB | | | | [address], | | | | | | [place] [address] | | | | + + + + + + | Absolute | 0.15 (H)Comment: Testing | 0.00 - 0.10 | EXTERNAL | | | Basophils | performed at [facility], [address] | K/uL | LAB | | | | [address], | | | | | | [place] [address] | | | | + + + + + + + + | Specimen | + + | Blood specimen | | (specimen) | + + + +---------+ + + | Performing | Address | City/State/Zipcode | Phone Number | | Organization | | | | + +---------+ + + | EXTERNAL LAB | | | | + +---------+ + + Phosphorus (11/01/2015 5:16 AM PDT) + + + + + + | Component | Value | Ref Range | Performed | Pathologist | | | | | At | Signature | + + + + + + | PHOSPHORUS | 3.5Comment: Testing | 2.3 - 4.8 mg/dL | EXTERNAL | | | | performed at [facility] | | LAB | | | | [address];[place] | | | | | | [address] | | | | + + + + + + + + | Specimen | + + | Blood specimen | | (specimen) | + + + +---------+ + + | Performing | Address | City/State/Zipcode | Phone Number | | Organization | | | | + +---------+ + + | EXTERNAL LAB | | | | + +---------+ + + Magnesium (11/01/2015 5:16 AM PDT) + + + + + + | Component | Value | Ref Range | Performed | Pathologist | | | | | At | Signature | + + + + + + | Magnesium | 1.5 (L)Comment: Testing | 1.7 - 2.4 mg/dL | EXTERNAL | | | | performed at [facility];[address] | | LAB | | | | [address];[place], [place] | | | | | | [address] | | | | + + + + + + + + | Specimen | + + | Blood specimen | | (specimen) | + + + +---------+ + + | Performing | Address | City/State/Zipcode | Phone Number | | Organization | | | | + +---------+ + + | EXTERNAL LAB | | | | + +---------+ + + Vancomycin Level (11/01/2015 5:16 AM PDT) + + + + + + | Component | Value | Ref Range | Performed | Pathologist | | | | | At | Signature | + + + + + + | Vancomycin | 17.99Comment: Testing | ug/mL | EXTERNAL | | | Random | performed at [facility];[address] | | LAB | | | | [address];[place], [place] | | | | | | [address] | | | | + + + + + + + + | Specimen | + + | Blood specimen | | (specimen) | + + + +---------+ + + | Performing | Address | City/State/Zipcode | Phone Number | | Organization | | | | + +---------+ + + | EXTERNAL LAB | | | | + +---------+ + + Basic Metabolic Panel (11/01/2015 5:16 AM PDT) + + + + + + | Component | Value | Ref Range | Performed | Pathologist | | | | | At | Signature | + + + + + + | Na | 141Comment: Testing | 135 - 145 | EXTERNAL | | | | performed at [facility];[address] | mmol/L | LAB | | | | [address];[place] | | | | | | [address] | | | | + + + + + + | K | 4.1Comment: Testing | 3.5 - 4.9 | EXTERNAL | | | | performed at [facility];[address] | mmol/L | LAB | | | | [address];[place] | | | | | | [address] | | | | + + + + + + | Cl | 103Comment: Testing | 99 - 109 mmol/L | EXTERNAL | | | | performed at [facility];[address] | | LAB | | | | [address];[place] | | | | | | [address] | | | | + + + + + + | CO2 | 28Comment: Testing | 23 - 32 mmol/L | EXTERNAL | | | | performed at [facility];[address] | | LAB | | | | [address];[place] | | | | | | [address] | | | | + + + + + + | Anion Gap | 14Comment: Testing | 5 - 20 mmol/L | EXTERNAL | | | | performed at [facility];[address] | | LAB | | | | [address];[place] | | | | | | [address] | | | | + + + + + + | Glucose, | 111 (H)Comment: Testing | 65 - 99 mg/dL | EXTERNAL | | | Fasting | performed at [facility];[address] | | LAB | | | | [address];[place] | | | | | | [address] | | | | + + + + + + | BUN | 9Comment: Testing | 8 - 25 mg/dL | EXTERNAL | | | | performed at [facility];[address] | | LAB | | | | [address];[place] | | | | | | [address] | | | | + + + + + + | Creatinine | 0.96Comment: Testing | 0.70 - 1.30 | EXTERNAL | | | | performed at [facility];[address] | mg/dL | LAB | | | | [address];[place] | | | | | | [address] | | | | + + + + + + | BUN/Creatin | 9Comment: Testing | | EXTERNAL | | | ine Ratio | performed at [facility];[address] | | LAB | | | | [address];[place] | | | | | | [address] | | | | + + + + + + | Calcium | 7.6 (L)Comment: Testing | 8.5 - 10.5 | EXTERNAL | | | | performed at [facility];[address] | mg/dL | LAB | | | | [address];[place] | | | | | | [address] | | | | + + + + + + | Estimated | >60Comment: GFR <60: | mL/min/1.73m2 | EXTERNAL | | | GFR | CHRONIC KIDNEY DISEASE, | | LAB | | | | IF FOUND OVER A 3 MONTH | | | | | | PERIOD.GFR <15: KIDNEY | | | | | | FAILURE.FOR | | | | | | AMERICANS, MULTIPLY THE | | | | | | CALCULATED GFR BY | | | | | | 1.210.Testing performed | | | | | | at [facility];[address] | | | | | | [place] [address] | | | | + + + + + + + + | Specimen | + + | Blood specimen | | (specimen) | + + + +---------+ + + | Performing | Address | City/State/Zipcode | Phone Number | | Organization | | | | + +---------+ + + | EXTERNAL LAB | | | | + +---------+ + + Vancomycin, Trough (10/31/2015 5:09 PM PDT) + + + + + + | Component | Value | Ref Range | Performed | Pathologist | | | | | At | Signature | + + + + + + | Vancomycin | 35.1 ()Comment: 15 to | 10 - 20 ug/mL | EXTERNAL | | | Trough | 20 ug/mL for meningitis, | | LAB | | | | osteomyelitis, | | | | | | endocarditis, sepsis, or | | | | | | healthcare associated | | | | | | pneumonia, or an SHAYY | | | | | | equal to or greater than | | | | | | 1.0 ug/mLCALLED NURSING | | | | | | UNITRESULT READ BACK | | | | | | BY:CAROLYN/KATIE Norman AT | | | | | | 17:39, ON 10/31/15, BY | | | | | | MYVTesting performed at | | | | | | [facility];[address] [place] [address] | | | | | | [facility];[place] [address] | | | | + + + + + + + + | Specimen | + + | Blood specimen | | (specimen) | + + + +---------+ + + | Performing | Address | City/State/Zipcode | Phone Number | | Organization | | | | + +---------+ + + | EXTERNAL LAB | | | | + +---------+ + + External Lab: CBC (10/31/2015 7:22 AM PDT) + + + + + + | Component | Value | Ref Range | Performed | Pathologist | | | | | At | Signature | + + + + + + | WBC | 18.77 (H)Comment: | 3.80 - 11.00 | EXTERNAL | | | | Testing performed at | K/uL | LAB | | | | TC, [address] [facility] | | | | | | [place] | | | | | | [address] | | | | + + + + + + | Non- | 2.71 (L)Comment: Testing | 4.20 - 5.70 | EXTERNAL | | | Red Blood | performed at [facility], [address] | M/uL | LAB | | | Cells | [address] [place], | | | | | Counted | [place] [address] | | | | + + + + + + | Hemoglobin | 7.6 (L)Comment: Testing | 13.2 - 17.0 | EXTERNAL | | | | performed at [facility], [address] | g/dL | LAB | | | | [address], | | | | | | [place] [id number] | | | | + + + + + + | Hematocrit, | 24.0 (L)Comment: Testing | 39.0 - 50.0 % | EXTERNAL | | | POC | performed at [facility], [address] | | LAB | | | | [address], | | | | | | [place] [address] | | | | + + + + + + | MCV | 88.6Comment: Testing | 80.0 - 100.0 fl | EXTERNAL | | | | performed at [facility], [address] | | LAB | | | [address], | | | | | | [place] [address] | | | | + + + + + + | MCH | 28.0Comment: Testing | 27.0 - 34.0 pg | EXTERNAL | | | | performed at [facility], [address] | | LAB | | | | [address], | | | | | | [place] [address] | | | | + + + + + + | MCHC | 31.6 (L)Comment: Testing | 32.0 - 35.5 | EXTERNAL | | | | performed at [facility], [address] | g/dL | LAB | | | | [address], | | | | | | [place] [address] | | | | + + + + + + | RDW-CV | 49.4Comment: Testing | 37 - 53 fl | EXTERNAL | | | | performed at [facility], [address] | | LAB | | | | [address], | | | | | | [place] [address] | | | | + + + + + + | Platelet | 498 (H)Comment: Testing | 150 - 400 K/uL | EXTERNAL | | | Count | performed at [facility], [address] | | LAB | | | Plasma | [address], | | | | | | [place] [address] | | | | + + + + + + | MPV | 6.8Comment: Testing | fl | EXTERNAL | | | | performed at [facility], [address] | | LAB | | | | [address], | | | | | | [place] [address] | | | | + + + + + + | Differentia | AUTOMATEDComment: | | EXTERNAL | | | l Type | Testing performed at | | LAB | | | | [facility], [address] | | | | | | [address], [place] | | | | | | [address] | | | | + + + + + + | % Segmented | 82.92Comment: Testing | % | EXTERNAL | | | | performed at [facility], [address] | | LAB | | | Neutrophils | [address], | | | | | | [place], [place] [address] | | | | + + + + + + | % | 5.21Comment: Testing | % | EXTERNAL | | | Lymphocytes | performed at [facility], [address] | | LAB | | | | [address], | | | | | | [place], [place] [address] | | | | + + + + + + | % Monocytes | 7.16Comment: Testing | % | EXTERNAL | | | | performed at [facility], [address] | | LAB | | | | [address], | | | | | | [place] [address] | | | | + + + + + + | % | 3.78Comment: Testing | % | EXTERNAL | | | Eosinophils | performed at [facility], [address] | | LAB | | | | [address], | | | | | | [place] [address] | | | | + + + + + + | % Basophils | 0.93Comment: Testing | % | EXTERNAL | | | | performed at [facility], [address] | | LAB | | | | [address], | | | | | | [place] [address] | | | | + + + + + + | Absolute | 15.57 (H)Comment: | 1.90 - 7.40 | EXTERNAL | | | Segmented | Testing performed at | K/uL | LAB | | | Neutrophils | [facility], [address] | | | | | | [place] | | | | | | [address] | | | | + + + + + + | Absolute | 0.98 (L)Comment: Testing | 1.00 - 3.90 | EXTERNAL | | | Lymphocytes | performed at [facility], [address] | [address]/uL | LAB | | | | [address], | | | | | | [place] [address] | | | | + + + + + + | Absolute | 1.34 (H)Comment: Testing | 0.00 - 0.80 | EXTERNAL | | | Monocytes | performed at [facility], [address] | K/uL | LAB | | | | [address], | | | | | | [place] [address] | | | | + + + + + + | Absolute | 0.71 (H)Comment: Testing | 0.00 - 0.50 | EXTERNAL | | | Eosinophils | performed at [facility], [address] | K/uL | LAB | | | | [address], | | | | | | [place] [address] | | | | + + + + + + | Absolute | 0.18 (H)Comment: Testing | 0.00 - 0.10 | EXTERNAL | | | Basophils | performed at [facility], [address] | K/uL | LAB | | | | [address], | | | | | | [place] [address] | | | | + + + + + + + + | Specimen | + + | Blood specimen | | (specimen) | + + + +---------+ + + | Performing | Address | City/State/Zipcode | Phone Number | | Organization | | | | + +---------+ + + | EXTERNAL LAB | | | | + +---------+ + + Phosphorus (10/31/2015 7:22 AM PDT) + + + + + + | Component | Value | Ref Range | Performed | Pathologist | | | | | At | Signature | + + + + + + | PHOSPHORUS | 3.3Comment: Testing | 2.3 - 4.8 mg/dL | EXTERNAL | | | | performed at [facility], [address] | | LAB | | | | [address], | | | | | | [place] [address] | | | | + + + + + + + + | Specimen | + + | Blood specimen | | (specimen) | + + + +---------+ + + | Performing | Address | City/State/Zipcode | Phone Number | | Organization | | | | + +---------+ + + | EXTERNAL LAB | | | | + +---------+ + + Magnesium (10/31/2015 7:22 AM PDT) + + + + + + | Component | Value | Ref Range | Performed | Pathologist | | | | | At | Signature | + + + + + + | Magnesium | 1.4 (L)Comment: Testing | 1.7 - 2.4 mg/dL | EXTERNAL | | | | performed at [facility], [address] | | LAB | | | | [address], | | | | | | [place] [address] | | | | + + + + + + + + | Specimen | + + | Blood specimen | | (specimen) | + + + +---------+ + + | Performing | Address | City/State/Zipcode | Phone Number | | Organization | | | | + +---------+ + + | EXTERNAL LAB | | | | + +---------+ + + Comprehensive Metabolic Panel (10/31/2015 7:22 AM PDT) + + + + + + | Component | Value | Ref Range | Performed | Pathologist | | | | | At | Signature | + + + + + + | Na | 143Comment: Testing | 135 - 145 | EXTERNAL | | | | performed at [facility], [address] | mmol/L | LAB | | | | [address], | | | | | | [place] [address] | | | | + + + + + + | K | 4.1Comment: Testing | 3.5 - 4.9 | EXTERNAL | | | | performed at [facility], [address] | mmol/L | LAB | | | | [address], | | | | | | [place] [address] | | | | + + + + + + | Cl | 107Comment: Testing | 99 - 109 mmol/L | EXTERNAL | | | | performed at [facility], [address] | | LAB | | | | [address], | | | | | | [place] [address] | | | | + + + + + + | CO2 | 29Comment: Testing | 23 - 32 mmol/L | EXTERNAL | | | | performed at [facility], [address] | | LAB | | | | [address], | | | | | | [place] [address] | | | | + + + + + + | Anion Gap | 11Comment: Testing | 5 - 20 mmol/L | EXTERNAL | | | | performed at [facility], [address] | | LAB | | | | [address], | | | | | | [place] [address] | | | | + + + + + + | Glucose, | 91Comment: Testing | 65 - 99 mg/dL | EXTERNAL | | | Fasting | performed at [facility], [address] | | LAB | | | | [address], | | | | | | [place] [address] | | | | + + + + + + | BUN | 11Comment: Testing | 8 - 25 mg/dL | EXTERNAL | | | | performed at [facility], [address] | | LAB | | | | [address], | | | | | | [place] [address] | | | | + + + + + + | Creatinine | 1.0Comment: Testing | 0.70 - 1.30 | EXTERNAL | | | | performed at [facility], [address] | mg/dL | LAB | | | | [address], | | | | | | [place] [address] | | | | + + + + + + | BUN/Creatin | 11Comment: Testing | | EXTERNAL | | | ine Ratio | performed at [facility], [address] | | LAB | | | | [address], | | | | | | [place] [address] | | | | + + + + + + | Calcium | 8.2 (L)Comment: Testing | 8.5 - 10.5 | EXTERNAL | | | | performed at [facility], [address] | mg/dL | LAB | | | | [address], | | | | | | [place] [address] | | | | + + + + + + | Protein, | 6.7Comment: Testing | 6.3 - 8.2 g/dL | EXTERNAL | | | Total | performed at [facility], [address] | | LAB | | | [address], | | | | | | [place] [address] | | | | + + + + + + | Albumin | 1.5 (L)Comment: Testing | 3.6 - 5.0 g/dL | EXTERNAL | | | | performed at [facility], [address] | | LAB | | | | [address], | | | | | | [place] [address] | | | | + + + + + + | Globulin | 5.2 (H)Comment: Testing | 1.3 - 4.9 g/dL | EXTERNAL | | | | performed at [facility], [address] | | LAB | | | | [address], | | | | | | [place] [address] | | | | + + + + + + | A/G Ratio | 0.3 (L)Comment: Testing | 1.0 - 2.4 | EXTERNAL | | | | performed at [facility], [address] | | LAB | | | | [address], | | | | | | [place] [address] | | | | + + + + + + | Bilirubin | 0.9Comment: Testing | 0.1 - 1.5 mg/dL | EXTERNAL | | | Total | performed at [facility], [address] | | LAB | | | | [address], | | | | | | [place], [place] [address] | | | | + + + + + + | ALP, | 71Comment: Testing | 35 - 115 U/L | EXTERNAL | | | External | performed at [facility], [address] | | LAB | | | | [address], | | | | | | [place] [address] | | | | + + + + + + | AST | 15Comment: Testing | 10 - 45 U/L | EXTERNAL | | | | performed at [facility], [address] | | LAB | | | | [address], | | | | | | [place] [address] | | | | + + + + + + | ALT | 20Comment: Testing | 10 - 65 U/L | EXTERNAL | | | | performed at [facility], [address] | | LAB | | | | [address], | | | | | | [place] [address] | | | | + + + + + + | Estimated | >60Comment: GFR <60: | mL/min/1.73m2 | EXTERNAL | | | GFR | CHRONIC KIDNEY DISEASE, | | LAB | | | | IF FOUND OVER A 3 MONTH | | | | | | PERIOD.GFR <15: KIDNEY | | | | | | FAILURE.FOR | | | | | | AMERICANS, MULTIPLY THE | | | | | | CALCULATED GFR BY | | | | | | 1.210.Testing performed | | | | | | at [facility], [address] | | | | | | [address], | | | | | | [place] [address] | | | | + + + + + + + + | Specimen | + + | Blood specimen | | (specimen) | + + + +---------+ + + | Performing | Address | City/State/Zipcode | Phone Number | | Organization | | | | + +---------+ + + | EXTERNAL LAB | | | | + +---------+ + + Culture, Urine (10/30/2015 4:53 PM PDT) + + | Specimen | + + | | + + + + + | Narrative | Performed At | + + + | Specimen Description URINE, COLLECTION NOT | EXTERNAL LAB | | GIVEN CULTURE <10,000 CFU/ML | | | GRAM NEGATIVE | | | RODS NO FURTHER | | | WORKUP | | + + + + +---------+ + + | Performing | Address | City/State/Zipcode | Phone Number | | Organization | | | | + +---------+ + + | EXTERNAL LAB | | | | + +---------+ + + HISTORICAL MICROBIOLOGY RESULT (10/30/2015 4:43 PM PDT) + + | Specimen | + + | | + + + + + | Narrative | Performed At | + + + | Specimen Description CATHETER TIP CULTURE | EXTERNAL LAB | | NO GROWTH 2 DAYS | | + + + + +---------+ + + | Performing | Address | City/State/Zipcode | Phone Number | | Organization | | | | + +---------+ + + | EXTERNAL LAB | | | | + +---------+ + + Culture, Blood, 2nd Specimen (10/30/2015 4:34 PM PDT) + + | Specimen | + + | Blood specimen | | (specimen) | + + + + + | Narrative | Performed At | + + + | Specimen Description BLOOD, PERIPHERAL DRAW | EXTERNAL LAB | | SPECIAL REQUESTS RAC CULTURE | | | NO GROWTH 6 DAYS | | + + + + +---------+ + + | Performing | Address | City/State/Zipcode | Phone Number | | Organization | | | | + +---------+ + + | EXTERNAL LAB | | | | + +---------+ + + Lactic Acid (10/30/2015 4:34 PM PDT) + + + + + + | Component | Value | Ref Range | Performed | Pathologist | | | | | At | Signature | + + + + + + | Lactate | 1.5Comment: Testing | 0.4 - 2.0 | EXTERNAL | | | | performed at [facility];[address] | mmol/L | LAB | | | | [address];[place] | | | | | | [address] | | | | + + + + + + + + | Specimen | + + | Blood specimen | | (specimen) | + + + +---------+ + + | Performing | Address | City/State/Zipcode | Phone Number | | Organization | | | | + +---------+ + + | EXTERNAL LAB | | | | + +---------+ + + pH, venous (10/30/2015 4:34 PM PDT) + + + + + + | Component | Value | Ref Range | Performed | Pathologist | | | | | At | Signature | + + + + + + | pH, Bld | 7.448Comment: Testing | 7.300 - 7.450 | EXTERNAL | | | | performed at [facility];[address] | | LAB | | | [address];[place], [place] | | | | | | [address] | | | | + + + + + + + + | Specimen | + + | Blood specimen | | (specimen) | + + + +---------+ + + | Performing | Address | City/State/Zipcode | Phone Number | | Organization | | | | + +---------+ + + | EXTERNAL LAB | | | | + +---------+ + + Culture, Blood (10/30/2015 4:21 PM PDT) + + | Specimen | + + | Blood specimen | | (specimen) | + + + + + | Narrative | Performed At | + + + | Specimen Description BLOOD, LINE DRAW SPECIAL | EXTERNAL LAB | | REQUESTS PICC CULTURE | | | NO GROWTH 6 DAYS | | + + + + +---------+ + + | Performing | Address | City/State/Zipcode | Phone Number | | Organization | | | | + +---------+ + + | EXTERNAL LAB | | | | + +---------+ + + XR Chest 1 Vw (10/30/2015 4:16 PM PDT) + + | Specimen | + + | | + + + + + | Impressions | Performed At | + + + | Left PICC tip in expected position. Bilateral nodularity | | | consistent with septic emboli and multifocal infection. | | | | | + + + + + + | Narrative | Performed At | + + + | YANG RIDLEY 1985 30 years XR CHEST 1 VIEW 10/30/2015 4:16 | | | PM INDICATION: Shortness of breath COMPARISON: October 25, 2015 | | | TECHNIQUE: Chest 1 view, AP view of the chest FINDINGS: Left | | | PICC tip in the mid superior vena cava. Bilateral multiple lung | | | nodules, similar to the prior examination consistent with septic | | | emboli. Small right pleural effusion. No pneumothorax. Upper | | | mediastinal contours and heart size are normal. No acute osseous | | | abnormality. | | + + + + + | Procedure Note | + + | Elmer, Rad Conversion - 11/01/2018 7:23 PM PDT YANG RIDLEY1985 30 yearsXR CHEST 1 | | VIEW10/30/2015 4:16 PM INDICATION: Shortness of breath COMPARISON: October 25, 2015 | | TECHNIQUE: Chest 1 view, AP view of the chest FINDINGS:Left PICC tip in the mid superior | | vena cava. Bilateral multiple lung nodules, similar to the prior examination consistent | | with septic emboli. Small right pleural effusion. No pneumothorax. Upper mediastinal | | contours and heart size are normal. No acute osseous abnormality. IMPRESSION: Left PICC | | tip in expected position. Bilateral nodularity consistent with septic emboli and | | multifocal infection. | |COMPARISON: October 25, 2015 | | | |TECHNIQUE: Chest 1 view, AP view of the chest | | | |FINDINGS: | |Left PICC tip in the mid superior vena cava. | | | |Bilateral multiple lung nodules, similar to the prior examination consistent with septic em boli. | | | |Small right pleural effusion. No pneumothorax. | | | |Upper mediastinal contours and heart size are normal. | | | |No acute osseous abnormality. | | | |IMPRESSION: | | | |Left PICC tip in expected position. Bilateral nodularity consistent with septic emboli and multifocal infection. | | | | | + + Urinalysis, Reflex Microscopic and/or Culture (10/30/2015 3:55 PM PDT) + + + + + + | Component | Value | Ref Range | Performed | Pathologist | | | | | At | Signature | + + + + + + | Color | YELLOWComment: Testing | | EXTERNAL | | | | performed at [facility];[address] | | LAB | | | | [address];[place], [place] | | | | | | [address] | | | | + + + + + + | Clarity, | HAZYComment: Testing | | EXTERNAL | | | Urine | performed at [facility];[address] | | LAB | | | [address];[place] | | | | | | [address] | | | | + + + + + + | Specific | 1.008Comment: Testing | 1.002 - 1.030 | EXTERNAL | | | [place], | performed at [facility];[address] | | LAB | | | Urine | [address];[place] | | | | | | [address] | | | | + + + + + + | Leukocyte | NEGATIVEComment: Testing | | EXTERNAL | | | Esterase, | performed at [facility];[address] | | LAB | | | Urine | [address];[place] | | | | | | [address] | | | | + + + + + + | Nitrite, | NEGATIVEComment: Testing | | EXTERNAL | | | Urine | performed at [facility];[address] | | LAB | | | | [address];[place] | | | | | | [address] | | | | + + + + + + | Urobilinoge | NORMALComment: Testing | mg/dL | EXTERNAL | | | n, Urine | performed at [facility];[address] | | LAB | | | | [address];[place] | | | | | | [address] | | | | + + + + + + | Protein, | NEGATIVEComment: Testing | mg/dL | EXTERNAL | | | Urine | performed at [facility];[address] | | LAB | | | [address];[place] | | | | | | [address] | | | | + + + + + + | pH, Urine | 8.0Comment: Testing | 5.0 - 8.0 | EXTERNAL | | | | performed at [facility];[address] | | LAB | | | | [address];[place] | | | | | | [address] | | | | + + + + + + | Blood, | LARGE (A)Comment: | | EXTERNAL | | | Urine | Testing performed at | | LAB | | | | [facility];[address];[place] [address] | | | | + + + + + + | Ketones | NEGATIVEComment: Testing | mg/dL | EXTERNAL | | | | performed at [facility];[address] | | LAB | | | | [address];[place] | | | | | | [address] | | | | + + + + + + | Bilirubin, | NEGATIVEComment: Testing | | EXTERNAL | | | Urine | performed at [facility];[address] | | LAB | | | | [address];[place] | | | | | | [address] | | | | + + + + + + | Glucose, | NEGATIVEComment: Testing | mg/dL | EXTERNAL | | | Urine | performed at [facility];[address] | | LAB | | | | [address];[place] | | | | | | [address] | | | | + + + + + + | WBC, UA | 6-10Comment: Testing | 0 - 5 /hpf | EXTERNAL | | | | performed at [facility];[address] | | LAB | | | | [address];[place] | | | | | | [address] | | | | + + + + + + | RBC, UA | 26-49Comment: Testing | 0 - 2 /hpf | EXTERNAL | | | | performed at [facility];[address] | | LAB | | | | [address];[place] | | | | | | [address] | | | | + + + + + + | Bacteria, | 1+ (A)Comment: Testing | | EXTERNAL | | | UA | performed at [facility];[address] | | LAB | | | | [address];[place] | | | | | | [address] | | | | + + + + + + | Epithelial | NONE SEENComment: | /lpf | EXTERNAL | | | Cells | Testing performed at | | LAB | | | | [facility];[address];[place] [address] | | | | + + + + + + | Mucus, | 1+Comment: Testing | | EXTERNAL | | | Urine | performed at [facility];[address] | | LAB | | | | [address];[place] | | | | | | [address] | | | | + + + + + + + + | Specimen | + + | | + + + +---------+ + + | Performing | Address | City/State/Zipcode | Phone Number | | Organization | | | | + +---------+ + + | EXTERNAL LAB | | | | + +---------+ + + External Lab: CBC (10/30/2015 4:22 AM PDT) + + + + + + | Component | Value | Ref Range | Performed | Pathologist | | | | | At | Signature | + + + + + + | WBC | 10.81Comment: Testing | 3.80 - 11.00 | EXTERNAL | | | | performed at [facility], [address] | K/uL | LAB | | | | [address], | | | | | | [place] [address] | | | | + + + + + + | Non- | 2.73 (L)Comment: Testing | 4.20 - 5.70 | EXTERNAL | | | Red Blood | performed at [facility], [address] | M/uL | LAB | | | Cells | [address], | | | | | Counted | [place] [address] | | | | + + + + + + | Hemoglobin | 7.8 (L)Comment: Testing | 13.2 - 17.0 | EXTERNAL | | | | performed at [facility], [address] | g/dL | LAB | | | | [address], | | | | | | [place] [address] | | | | + + + + + + | Hematocrit, | 23.9 (L)Comment: Testing | 39.0 - 50.0 % | EXTERNAL | | | POC | performed at [facility], [address] | | LAB | | | | [address], | | | | | | [place] [address] | | | | + + + + + + | MCV | 87.6Comment: Testing | 80.0 - 100.0 fl | EXTERNAL | | | | performed at [facility], [address] | | LAB | | | | [address], | | | | | | [place] [address] | | | | + + + + + + | MCH | 28.4Comment: Testing | 27.0 - 34.0 pg | EXTERNAL | | | | performed at [facility], [address] | | LAB | | | | [address], | | | | | | [place] [address] | | | | + + + + + + | MCHC | 32.5Comment: Testing | 32.0 - 35.5 | EXTERNAL | | | | performed at [facility], [address] | g/dL | LAB | | | | [address], | | | | | | [place] [address] | | | | + + + + + + | RDW-CV | 49.0Comment: Testing | 37 - 53 fl | EXTERNAL | | | | performed at [facility], [address] | | LAB | | | [address], | | | | | | [place] [address] | | | | + + + + + + | Platelet | 411 (H)Comment: Testing | 150 - 400 K/uL | EXTERNAL | | | Count | performed at [facility], [address] | | LAB | | | Plasma | [address], | | | | | | [place] [address] | | | | + + + + + + | MPV | 6.8Comment: Testing | fl | EXTERNAL | | | | performed at [facility], [address] | | LAB | | | | [address], | | | | | | [place] [address] | | | | + + + + + + | Differentia | AUTOMATEDComment: | | EXTERNAL | | | l Type | Testing performed at | | LAB | | | | [facility], [address] | | | | | | [place] | | | | | | [address] | | | | + + + + + + | % Segmented | 71.77Comment: Testing | % | EXTERNAL | | | | performed at [facility], [address] | | LAB | | | Neutrophils | [address], | | | | | | [place] [address] | | | | + + + + + + | % | 14.08Comment: Testing | % | EXTERNAL | | | Lymphocytes | performed at [facility], [address] | | LAB | | | | [address], | | | | | | [place] [address] | | | | + + + + + + | % Monocytes | 8.89Comment: Testing | % | EXTERNAL | | | | performed at [facility], [address] | | LAB | | | | [address], | | | | | | [place] [address] | | | | + + + + + + | % | 4.62Comment: Testing | % | EXTERNAL | | | Eosinophils | performed at [facility], [address] | | LAB | | | | [address], | | | | | | [place] [address] | | | | + + + + + + | % Basophils | 0.64Comment: Testing | % | EXTERNAL | | | | performed at [facility], [address] | | LAB | | | | [address], | | | | | | [place] [address] | | | | + + + + + + | Absolute | 7.76 (H)Comment: Testing | 1.90 - 7.40 | EXTERNAL | | | Segmented | performed at [facility], [address] | K/uL | LAB | | | Neutrophils | [address], | | | | | | [place] [address] | | | | + + + + + + | Absolute | 1.52Comment: Testing | 1.00 - 3.90 | EXTERNAL | | | Lymphocytes | performed at [facility], [address] | K/uL | LAB | | | | [address], | | | | | | [place] [address] | | | | + + + + + + | Absolute | 0.96 (H)Comment: Testing | 0.00 - 0.80 | EXTERNAL | | | Monocytes | performed at [facility], [address] | K/uL | LAB | | | | [address], | | | | | | [place] [address] | | | | + + + + + + | Absolute | 0.50Comment: Testing | 0.00 - 0.50 | EXTERNAL | | | Eosinophils | performed at [facility], [address] | K/uL | LAB | | | | [address], | | | | | | [place] [address] | | | | + + + + + + | Absolute | 0.07Comment: Testing | 0.00 - 0.10 | EXTERNAL | | | Basophils | performed at [facility], [address] | K[address]L | LAB | | | | [address], | | | | | | [place] [address] | | | | + + + + + + + + | Specimen | + + | Blood specimen | | (specimen) | + + + +---------+ + + | Performing | Address | City/State/Zipcode | Phone Number | | Organization | | | | + +---------+ + + | EXTERNAL LAB | | | | + +---------+ + + Phosphorus (10/30/2015 4:22 AM PDT) + + + + + + | Component | Value | Ref Range | Performed | Pathologist | | | | | At | Signature | + + + + + + | PHOSPHORUS | 3.3Comment: Testing | 2.3 - 4.8 mg/dL | EXTERNAL | | | | performed at [facility], [address] | | LAB | | | | [address], | | | | | | [place] [address] | | | | + + + + + + + + | Specimen | + + | Blood specimen | | (specimen) | + + + +---------+ + + | Performing | Address | City/State/Zipcode | Phone Number | | Organization | | | | + +---------+ + + | EXTERNAL LAB | | | | + +---------+ + + Magnesium (10/30/2015 4:22 AM PDT) + + + + + + | Component | Value | Ref Range | Performed | Pathologist | | | | | At | Signature | + + + + + + | Magnesium | 1.5 (L)Comment: Testing | 1.7 - 2.4 mg/dL | EXTERNAL | | | | performed at [facility], [address] | | LAB | | | | [address], | | | | | | [place] [address] | | | | + + + + + + + + | Specimen | + + | Blood specimen | | (specimen) | + + + +---------+ + + | Performing | Address | City/State/Zipcode | Phone Number | | Organization | | | | + +---------+ + + | EXTERNAL LAB | | | | + +---------+ + + Basic Metabolic Panel (10/30/2015 4:22 AM PDT) + + + + + + | Component | Value | Ref Range | Performed | Pathologist | | | | | At | Signature | + + + + + + | Na | 140Comment: Testing | 135 - 145 | EXTERNAL | | | | performed at [facility], [address] | mmol/L | LAB | | | | [address], | | | | | | [place] [address] | | | | + + + + + + | K | 3.9Comment: Testing | 3.5 - 4.9 | EXTERNAL | | | | performed at [facility], [address] | mmol/L | LAB | | | | [address], | | | | | | [place] [address] | | | | + + + + + + | Cl | 104Comment: Testing | 99 - 109 mmol/L | EXTERNAL | | | | performed at [facility], [address] | | LAB | | | | [address], | | | | | | [place] [address] | | | | + + + + + + | CO2 | 30Comment: Testing | 23 - 32 mmol/L | EXTERNAL | | | | performed at [facility], [address] | | LAB | | | | [address], | | | | | | [place] [address] | | | | + + + + + + | Anion Gap | 10Comment: Testing | 5 - 20 mmol/L | EXTERNAL | | | | performed at [facility], [address] | | LAB | | | | [address], | | | | | | [place] [address] | | | | + + + + + + | Glucose, | 92Comment: Testing | 65 - 99 mg/dL | EXTERNAL | | | Fasting | performed at [facility], [address] | | LAB | | | | [address], | | | | | | [place] [address] | | | | + + + + + + | BUN | 11Comment: Testing | 8 - 25 mg/dL | EXTERNAL | | | | performed at [facility], [address] | | LAB | | | | [address], | | | | | | [place] [address] | | | | + + + + + + | Creatinine | 1.0Comment: Testing | 0.70 - 1.30 | EXTERNAL | | | | performed at [facility], [address] | mg/dL | LAB | | | | [address], | | | | | | [place] [address] | | | | + + + + + + | BUN/Creatin | 11Comment: Testing | | EXTERNAL | | | ine Ratio | performed at [facility], [address] | | LAB | | | | [address], | | | | | | [place] [address] | | | | + + + + + + | Calcium | 7.9 (L)Comment: Testing | 8.5 - 10.5 | EXTERNAL | | | | performed at [facility], [address] | mg/dL | LAB | | | | [address], | | | | | | [place] [address] | | | | + + + + + + | Estimated | >60Comment: GFR <60: | mL/min/1.73m2 | EXTERNAL | | | GFR | CHRONIC KIDNEY DISEASE, | | LAB | | | | IF FOUND OVER A 3 MONTH | | | | | | PERIOD.GFR <15: KIDNEY | | | | | | FAILURE.FOR | | | | | | AMERICANS, MULTIPLY THE | | | | | | CALCULATED GFR BY | | | | | | 1.210.Testing performed | | | | | | at [facility], [address] | | | | | | [address], | | | | | | [place] [address] | | | | + + + + + + + + | Specimen | + + | Blood specimen | | (specimen) | + + + +---------+ + + | Performing | Address | City/State/Zipcode | Phone Number | | Organization | | | | + +---------+ + + | EXTERNAL LAB | | | | + +---------+ + + External Lab: CBC (10/29/2015 5:34 AM PDT) + + + + + + | Component | Value | Ref Range | Performed | Pathologist | | | | | At | Signature | + + + + + + | WBC | 10.91Comment: Testing | 3.80 - 11.00 | EXTERNAL | | | | performed at [facility], [address] | K/uL | LAB | | | | [address], | | | | | | [place] [address] | | | | + + + + + + | Non- | 2.93 (L)Comment: Testing | 4.20 - 5.70 | EXTERNAL | | | Red Blood | performed at [facility], [address] | M/uL | LAB | | | Cells | [address], | | | | | Counted | [place] [address] | | | | + + + + + + | Hemoglobin | 8.6 (L)Comment: Testing | 13.2 - 17.0 | EXTERNAL | | | | performed at [facility], [address] | g/dL | LAB | | | | [address], | | | | | | [place] [address] | | | | + + + + + + | Hematocrit, | 25.6 (L)Comment: Testing | 39.0 - 50.0 % | EXTERNAL | | | POC | performed at [facility], [address] | | LAB | | | | [address], | | | | | | [place] [address] | | | | + + + + + + | MCV | 87.4Comment: Testing | 80.0 - 100.0 fl | EXTERNAL | | | | performed at [facility], [address] | | LAB | | | [address], | | | | | | [place] [address] | | | | + + + + + + | MCH | 29.4Comment: Testing | 27.0 - 34.0 pg | EXTERNAL | | | | performed at [facility], [address] | | LAB | | | | [address], | | | | | | [place] [address] | | | | + + + + + + | MCHC | 33.6Comment: Testing | 32.0 - 35.5 | EXTERNAL | | | | performed at [facility], [address] | g/dL | LAB | | | | [address], | | | | | | [place] [address] | | | | + + + + + + | RDW-CV | 48.1Comment: Testing | 37 - 53 fl | EXTERNAL | | | | performed at [facility], [address] | | LAB | | | | [address], | | | | | | [place] [address] | | | | + + + + + + | Platelet | 450 (H)Comment: Testing | 150 - 400 K/uL | EXTERNAL | | | Count | performed at [facility], [address] | | LAB | | | Plasma | [address], | | | | | | [place] [address] | | | | + + + + + + | MPV | 6.9Comment: Testing | fl | EXTERNAL | | | | performed at [facility], [address] | | LAB | | | | [address], | | | | | | [place] [address] | | | | + + + + + + | Differentia | MANUALComment: Testing | | EXTERNAL | | | l Type | performed at [facility], [address] | | LAB | | | | [address], | | | | | | [place] [address] | | | | + + + + + + | Segmented | 82Comment: Testing | % | EXTERNAL | | | Neutrophils | performed at [facility], [address] | | LAB | | | Manual | [address], | | | | | | [place] [address] | | | | + + + + + + | Lymphocytes | 6Comment: Testing | % | EXTERNAL | | | Manual | performed at [facility], [address] | | LAB | | | | [address], | | | | | | [place] [address] | | | | + + + + + + | Monocytes | 7Comment: Testing | % | EXTERNAL | | | Manual | performed at [facility], [address] | | LAB | | | | [address], | | | | | | [place] [address] | | | | + + + + + + | Eosinophils | 5Comment: Testing | % | EXTERNAL | | | Manual | performed at [facility], [address] | | LAB | | | | [address], | | | | | | [place] [address] | | | | + + + + + + | Absolute | 8.95 (H)Comment: Testing | 1.90 - 7.40 | EXTERNAL | | | Neutrophils | performed at [facility], [address] | K/[address]L | LAB | | | | [address], | | | | | | [place] [address] | | | | + + + + + + | Absolute | 0.65 (L)Comment: Testing | 1.00 - 3.90 | EXTERNAL | | | Lymphocytes | performed at [facility], [address] | K/uL | LAB | | | | [address], | | | | | | [place] [address] | | | | + + + + + + | Absolute | 0.76Comment: Testing | 0.00 - 0.80 | EXTERNAL | | | Monocytes | performed at [facility], [address] | K/uL | LAB | | | | [address], | | | | | | [place] [address] | | | | + + + + + + | Absolute | 0.55 (H)Comment: Testing | 0.00 - 0.50 | EXTERNAL | | | Eosinophils | performed at [facility], [address] | [address] | LAB | | | | [address], | | | | | | [place] [address] | | | | + + + + + + | RBC | RBC AND PLT MORPHOLOGY | | EXTERNAL | | | Morphology | APPEAR NORMALComment: | | LAB | | | | Testing performed at | | | | | | [facility], [address] | | | | | | [place] | | | | | | [address] | | | | + + + + + + + + | Specimen | + + | Blood specimen | | (specimen) | + + + +---------+ + + | Performing | Address | City/State/Zipcode | Phone Number | | Organization | | | | + +---------+ + + | EXTERNAL LAB | | | | + +---------+ + + Phosphorus (10/29/2015 5:34 AM PDT) + + + + + + | Component | Value | Ref Range | Performed | Pathologist | | | | | At | Signature | + + + + + + | PHOSPHORUS | 3.8Comment: Testing | 2.3 - 4.8 mg/dL | EXTERNAL | | | | performed at [facility], [address] | | LAB | | | | [address], | | | | | | [place] [address] | | | | + + + + + + + + | Specimen | + + | Blood specimen | | (specimen) | + + + +---------+ + + | Performing | Address | City/State/Zipcode | Phone Number | | Organization | | | | + +---------+ + + | EXTERNAL LAB | | | | + +---------+ + + Magnesium (10/29/2015 5:34 AM PDT) + + + + + + | Component | Value | Ref Range | Performed | Pathologist | | | | | At | Signature | + + + + + + | Magnesium | 1.5 (L)Comment: Testing | 1.7 - 2.4 mg/dL | EXTERNAL | | | | performed at [facility], [address] | | LAB | | | | [address], | | | | | | [place] [address] | | | | + + + + + + + + | Specimen | + + | Blood specimen | | (specimen) | + + + +---------+ + + | Performing | Address | City/State/Zipcode | Phone Number | | Organization | | | | + +---------+ + + | EXTERNAL LAB | | | | + +---------+ + + Basic Metabolic Panel (10/29/2015 5:34 AM PDT) + + + + + + | Component | Value | Ref Range | Performed | Pathologist | | | | | At | Signature | + + + + + + | Na | 139Comment: Testing | 135 - 145 | EXTERNAL | | | | performed at [facility], [address] | mmol/L | LAB | | | | [address] | | | | | | [place] [address] | | | | + + + + + + | K | 3.4 (L)Comment: Testing | 3.5 - 4.9 | EXTERNAL | | | | performed at [facility], [address] | mmol/L | LAB | | | | [address], | | | | | | [place] [address] | | | | + + + + + + | Cl | 99Comment: Testing | 99 - 109 mmol/L | EXTERNAL | | | | performed at [facility], [address] | | LAB | | | | [address], | | | | | | [place] [address] | | | | + + + + + + | CO2 | 31Comment: Testing | 23 - 32 mmol/L | EXTERNAL | | | | performed at [facility], [address] | | LAB | | | | [address], | | | | | | [place] [address] | | | | + + + + + + | Anion Gap | 12Comment: Testing | 5 - 20 mmol/L | EXTERNAL | | | | performed at [facility], [address] | | LAB | | | | [address], | | | | | | [place] [address] | | | | + + + + + + | Glucose, | 85Comment: Testing | 65 - 99 mg/dL | EXTERNAL | | | Fasting | performed at [facility], [address] | | LAB | | | | [address], | | | | | | [place], [place] [address] | | | | + + + + + + | BUN | 15Comment: Testing | 8 - 25 mg/dL | EXTERNAL | | | | performed at [facility], [address] | | LAB | | | | [address], | | | | | | [place] [address] | | | | + + + + + + | Creatinine | 1.1Comment: Testing | 0.70 - 1.30 | EXTERNAL | | | | performed at [facility], [address] | mg/dL | LAB | | | | [address], | | | | | | [place] [address] | | | | + + + + + + | BUN/Creatin | 14Comment: Testing | | EXTERNAL | | | ine Ratio | performed at [facility], [address] | | LAB | | | | [facility], | | | | | | [place] [address] | | | | + + + + + + | Calcium | 8.2 (L)Comment: Testing | 8.5 - 10.5 | EXTERNAL | | | | performed at [facility], [address] | mg/dL | LAB | | | | [address], | | | | | | [place] [address] | | | | + + + + + + | Estimated | >60Comment: GFR <60: | mL/min/1.73m2 | EXTERNAL | | | GFR | CHRONIC KIDNEY DISEASE, | | LAB | | | | IF FOUND OVER A 3 MONTH | | | | | | PERIOD.GFR <15: KIDNEY | | | | | | FAILURE.FOR | | | | | | AMERICANS, MULTIPLY THE | | | | | | CALCULATED GFR BY | | | | | | 1.210.Testing performed | | | | | | at [facility], [address] | | | | | | [address], | | | | | | [place] [address] | | | | + + + + + + + + | Specimen | + + | Blood specimen | | (specimen) | + + + +---------+ + + | Performing | Address | City/State/Zipcode | Phone Number | | Organization | | | | + +---------+ + + | EXTERNAL LAB | | | | + +---------+ + + External Lab: DEON (10/28/2015 4:36 AM PDT) + + + + + + | Component | Value | Ref Range | Performed | Pathologist | | | | | At | Signature | + + + + + + | WBC | 12.48 (H)Comment: | 3.80 - 11.00 | EXTERNAL | | | | Testing performed at | K/uL | LAB | | | | [facility];[address];[place] [address] | | | | + + + + + + | Non- | 2.98 (L)Comment: Testing | 4.20 - 5.70 | EXTERNAL | | | Red Blood | performed at [facility];[address] | M/uL | LAB | | | Cells | [address];[place] | | | | | Counted | [id number] | | | | + + + + + + | Hemoglobin | 8.6 (L)Comment: Testing | 13.2 - 17.0 | EXTERNAL | | | | performed at [facility];[address] | g/dL | LAB | | | | [address];[place] | | | | | | [address] | | | | + + + + + + | Hematocrit, | 25.9 (L)Comment: Testing | 39.0 - 50.0 % | EXTERNAL | | | POC | performed at [facility];[address] | | LAB | | | | [address];[place] | | | | | | [address] | | | | + + + + + + | MCV | 86.7Comment: Testing | 80.0 - 100.0 fl | EXTERNAL | | | | performed at [facility];[address] | | LAB | | | | [address];[place] | | | | | | [address] | | | | + + + + + + | MCH | 28.9Comment: Testing | 27.0 - 34.0 pg | EXTERNAL | | | | performed at [facility];[address] | | LAB | | | | [address];[place] | | | | | | [address] | | | | + + + + + + | MCHC | 33.3Comment: Testing | 32.0 - 35.5 | EXTERNAL | | | | performed at [facility];[address] | g/dL | LAB | | | | [address];[place] | | | | | | [address] | | | | + + + + + + | RDW-CV | 47.7Comment: Testing | 37 - 53 fl | EXTERNAL | | | | performed at [facility];[address] | | LAB | | | | [address];[place] | | | | | | [address] | | | | + + + + + + | Platelet | 508 (H)Comment: Testing | 150 - 400 K/uL | EXTERNAL | | | Count | performed at [facility];[address] | | LAB | | | Plasma | [address];[place] | | | | | | [address] | | | | + + + + + + | MPV | 6.4Comment: Testing | fl | EXTERNAL | | | | performed at [facility];[address] | | LAB | | | | [address];[place] | | | | | | [address] | | | | + + + + + + | Differentia | AUTOMATEDComment: | | EXTERNAL | | | l Type | Testing performed at | | LAB | | | | [facility];[address];[place] [address] | | | | + + + + + + | % Segmented | 76.50Comment: Testing | % | EXTERNAL | | | | performed at [facility];[address] | | LAB | | | Neutrophils | [address];[place] | | | | | | [address] | | | | + + + + + + | % | 12.39Comment: Testing | % | EXTERNAL | | | Lymphocytes | performed at [facility];[address] | | LAB | | | | [address];[place] | | | | | | [address] | | | | + + + + + + | % Monocytes | 7.33Comment: Testing | % | EXTERNAL | | | | performed at [facility];[address] | | LAB | | | | [address];[place] | | | | | | [address] | | | | + + + + + + | % | 2.89Comment: Testing | % | EXTERNAL | | | Eosinophils | performed at [facility];[address] | | LAB | | | | [address];[place] | | | | | | [address] | | | | + + + + + + | % Basophils | 0.89Comment: Testing | % | EXTERNAL | | | | performed at [facility];[address] | | LAB | | | | [address];[place] | | | | | | [address] | | | | + + + + + + | Absolute | 9.55 (H)Comment: Testing | 1.90 - 7.40 | EXTERNAL | | | Segmented | performed at [facility];[address] | K[address]uL | LAB | | | Neutrophils | [address];[place] | | | | | | [address] | | | | + + + + + + | Absolute | 1.55Comment: Testing | 1.00 - 3.90 | EXTERNAL | | | Lymphocytes | performed at [facility];[address] | K/uL | LAB | | | | [address];[place] | | | | | | [address] | | | | + + + + + + | Absolute | 0.92 (H)Comment: Testing | 0.00 - 0.80 | EXTERNAL | | | Monocytes | performed at [facility];[address] | K/uL | LAB | | | | [address];[place] | | | | | | [address] | | | | + + + + + + | Absolute | 0.36Comment: Testing | 0.00 - 0.50 | EXTERNAL | | | Eosinophils | performed at [facility];[address] | K/uL | LAB | | | | [address];[place] | | | | | | [address] | | | | + + + + + + | Absolute | 0.11 (H)Comment: Testing | 0.00 - 0.10 | EXTERNAL | | | Basophils | performed at [facility];[address] | K/uL | LAB | | | | [address];[place] | | | | | | [address] | | | | + + + + + + + + | Specimen | + + | Blood specimen | | (specimen) | + + + +---------+ + + | Performing | Address | City/State/Zipcode | Phone Number | | Organization | | | | + +---------+ + + | EXTERNAL LAB | | | | + +---------+ + + Phosphorus (10/28/2015 4:36 AM PDT) + + + + + + | Component | Value | Ref Range | Performed | Pathologist | | | | | At | Signature | + + + + + + | PHOSPHORUS | 4.0Comment: Testing | 2.3 - 4.8 mg/dL | EXTERNAL | | | | performed at [facility];[address] | | LAB | | | | [address] [facility];[place], [place] | | | | | | [address] | | | | + + + + + + + + | Specimen | + + | Blood specimen | | (specimen) | + + + +---------+ + + | Performing | Address | City/State/Zipcode | Phone Number | | Organization | | | | + +---------+ + + | EXTERNAL LAB | | | | + +---------+ + + Magnesium (10/28/2015 4:36 AM PDT) + + + + + + | Component | Value | Ref Range | Performed | Pathologist | | | | | At | Signature | + + + + + + | Magnesium | 1.9Comment: Testing | 1.7 - 2.4 mg/dL | EXTERNAL | | | | performed at [facility];[address] | | LAB | | | | [address] [facility];[place], [place] | | | | | | [address] | | | | + + + + + + + + | Specimen | + + | Blood specimen | | (specimen) | + + + +---------+ + + | Performing | Address | City/State/Zipcode | Phone Number | | Organization | | | | + +---------+ + + | EXTERNAL LAB | | | | + +---------+ + + Basic Metabolic Panel (10/28/2015 4:36 AM PDT) + + + + + + | Component | Value | Ref Range | Performed | Pathologist | | | | | At | Signature | + + + + + + | Na | 137Comment: Testing | 135 - 145 | EXTERNAL | | | | performed at [facility];[address] | mmol/L | LAB | | | | [address];[place] | | | | | | [address] | | | | + + + + + + | K | 3.4 (L)Comment: Testing | 3.5 - 4.9 | EXTERNAL | | | | performed at [facility];[address] | mmol/L | LAB | | | | [address];[place] | | | | | | [address] | | | | + + + + + + | Cl | 98 (L)Comment: Testing | 99 - 109 mmol/L | EXTERNAL | | | | performed at [facility];[address] | | LAB | | | | [address];[place] | | | | | | [address] | | | | + + + + + + | CO2 | 32Comment: Testing | 23 - 32 mmol/L | EXTERNAL | | | | performed at [facility];[address] | | LAB | | | | [address];[place] | | | | | | [address] | | | | + + + + + + | Anion Gap | 10Comment: Testing | 5 - 20 mmol/L | EXTERNAL | | | | performed at [facility];[address] | | LAB | | | | [address];[place] | | | | | | [address] | | | | + + + + + + | Glucose, | 91Comment: Testing | 65 - 99 mg/dL | EXTERNAL | | | Fasting | performed at [facility];[address] | | LAB | | | | [address];[place] | | | | | | [address] | | | | + + + + + + | BUN | 21Comment: Testing | 8 - 25 mg/dL | EXTERNAL | | | | performed at [facility];[address] | | LAB | | | | [address];[place] | | | | | | [address] | | | | + + + + + + | Creatinine | 1.3Comment: Testing | 0.70 - 1.30 | EXTERNAL | | | | performed at [facility];[address] | mg/dL | LAB | | | | [address];[place] | | | | | | [address] | | | | + + + + + + | BUN/Creatin | 16Comment: Testing | | EXTERNAL | | | ine Ratio | performed at [facility];[address] | | LAB | | | | [address];[place] | | | | | | [address] | | | | + + + + + + | Calcium | 7.8 (L)Comment: Testing | 8.5 - 10.5 | EXTERNAL | | | | performed at [facility];[address] | mg/dL | LAB | | | | [address];[place] | | | | | | [address] | | | | + + + + + + | Estimated | >60Comment: GFR <60: | mL/min/1.73m2 | EXTERNAL | | | GFR | CHRONIC KIDNEY DISEASE, | | LAB | | | | IF FOUND OVER A 3 MONTH | | | | | | PERIOD.GFR <15: KIDNEY | | | | | | FAILURE.FOR | | | | | | AMERICANS, MULTIPLY THE | | | | | | CALCULATED GFR BY | | | | | | 1.210.Testing performed | | | | | | at [facility];[address] | | | | | | [facility];[place] [address] | | | | + + + + + + + + | Specimen | + + | Blood specimen | | (specimen) | + + + +---------+ + + | Performing | Address | City/State/Zipcode | Phone Number | | Organization | | | | + +---------+ + + | EXTERNAL LAB | | | | + +---------+ + + External Lab: CBC (10/27/2015 4:30 AM PDT) + + + + + + | Component | Value | Ref Range | Performed | Pathologist | | | | | At | Signature | + + + + + + | WBC | 10.91Comment: Testing | 3.80 - 11.00 | EXTERNAL | | | | performed at [facility];[address] | K/uL | LAB | | | | [address];[place] | | | | | | [address] | | | | + + + + + + | Non- | 2.87 (L)Comment: Testing | 4.20 - 5.70 | EXTERNAL | | | Red Blood | performed at [facility];[address] | M/uL | LAB | | | Cells | [address];[place] | | | | | Counted | [id number] | | | | + + + + + + | Hemoglobin | 8.4 (L)Comment: Testing | 13.2 - 17.0 | EXTERNAL | | | | performed at [facility];[address] | g/dL | LAB | | | | [address];[place] | | | | | | [address] | | | | + + + + + + | Hematocrit, | 25.0 (L)Comment: Testing | 39.0 - 50.0 % | EXTERNAL | | | POC | performed at [facility];[address] | | LAB | | | | [address];[place] | | | | | | [address] | | | | + + + + + + | MCV | 86.9Comment: Testing | 80.0 - 100.0 fl | EXTERNAL | | | | performed at [facility];[address] | | LAB | | | | [address];[place] | | | | | | [address] | | | | + + + + + + | MCH | 29.1Comment: Testing | 27.0 - 34.0 pg | EXTERNAL | | | | performed at [facility];[address] | | LAB | | | | [address];[place] | | | | | | [address] | | | | + + + + + + | MCHC | 33.5Comment: Testing | 32.0 - 35.5 | EXTERNAL | | | | performed at [facility];888 | g/dL | LAB | | | | [address];[place] | | | | | | [address] | | | | + + + + + + | RDW-CV | 49.0Comment: Testing | 37 - 53 fl | EXTERNAL | | | | performed at [facility];[address] | | LAB | | | | [address];[place] | | | | | | [address] | | | | + + + + + + | Platelet | 487 (H)Comment: Testing | 150 - 400 K/uL | EXTERNAL | | | Count | performed at [facility];[address] | | LAB | | | Plasma | [address];[place] | | | | | | [address] | | | | + + + + + + | MPV | 6.6Comment: Testing | fl | EXTERNAL | | | | performed at [facility];[address] | | LAB | | | | [address];[place] | | | | | | [address] | | | | + + + + + + | Differentia | AUTOMATEDComment: | | EXTERNAL | | | l Type | Testing performed at | | LAB | | | | [facility];[address];[place] [address] | | | | + + + + + + | % Segmented | 77.21Comment: Testing | % | EXTERNAL | | | | performed at [facility];[address] | | LAB | | | Neutrophils | [address];[place] | | | | | | [address] | | | | + + + + + + | % | 12.50Comment: Testing | % | EXTERNAL | | | Lymphocytes | performed at [facility];[address] | | LAB | | | | [address];[place] | | | | | | [address] | | | | + + + + + + | % Monocytes | 6.53Comment: Testing | % | EXTERNAL | | | | performed at [facility];[address] | | LAB | | | | [address];[place] | | | | | | [address] | | | | + + + + + + | % | 2.57Comment: Testing | % | EXTERNAL | | | Eosinophils | performed at [facility];[address] | | LAB | | | | [address];[place] | | | | | | [address] | | | | + + + + + + | % Basophils | 1.19Comment: Testing | % | EXTERNAL | | | | performed at [facility];[address] | | LAB | | | | [address];[place] | | | | | | [address] | | | | + + + + + + | Absolute | 8.42 (H)Comment: Testing | 1.90 - 7.40 | EXTERNAL | | | Segmented | performed at [facility];[address] | K/uL | LAB | | | Neutrophils | [address];[place] | | | | | | [address] | | | | + + + + + + | Absolute | 1.36Comment: Testing | 1.00 - 3.90 | EXTERNAL | | | Lymphocytes | performed at [facility];[address] | K/uL | LAB | | | | [address];[place] | | | | | | [address] | | | | + + + + + + | Absolute | 0.71Comment: Testing | 0.00 - 0.80 | EXTERNAL | | | Monocytes | performed at [facility];[address] | K/uL | LAB | | | | [address];[place] | | | | | | [address] | | | | + + + + + + | Absolute | 0.28Comment: Testing | 0.00 - 0.50 | EXTERNAL | | | Eosinophils | performed at [facility];[address] | K/uL | LAB | | | | [address];[place] | | | | | | [address] | | | | + + + + + + | Absolute | 0.13 (H)Comment: Testing | 0.00 - 0.10 | EXTERNAL | | | Basophils | performed at [facility];[address] | K/uL | LAB | | | | [address];[place] | | | | | | [address] | | | | + + + + + + + + | Specimen | + + | Blood specimen | | (specimen) | + + + +---------+ + + | Performing | Address | City/State/Zipcode | Phone Number | | Organization | | | | + +---------+ + + | EXTERNAL LAB | | | | + +---------+ + + Phosphorus (10/27/2015 4:30 AM PDT) + + + + + + | Component | Value | Ref Range | Performed | Pathologist | | | | | At | Signature | + + + + + + | PHOSPHORUS | 4.7Comment: Testing | 2.3 - 4.8 mg/dL | EXTERNAL | | | | performed at [facility];[address] | | LAB | | | | [address];[place] | | | | | | [address] | | | | + + + + + + + + | Specimen | + + | Blood specimen | | (specimen) | + + + +---------+ + + | Performing | Address | City/State/Zipcode | Phone Number | | Organization | | | | + +---------+ + + | EXTERNAL LAB | | | | + +---------+ + + Magnesium (10/27/2015 4:30 AM PDT) + + + + + + | Component | Value | Ref Range | Performed | Pathologist | | | | | At | Signature | + + + + + + | Magnesium | 1.5 (L)Comment: Testing | 1.7 - 2.4 mg/dL | EXTERNAL | | | | performed at [facility];[address] | | LAB | | | | [address];[place], [place] | | | | | | [address] | | | | + + + + + + + + | Specimen | + + | Blood specimen | | (specimen) | + + + +---------+ + + | Performing | Address | City/State/Zipcode | Phone Number | | Organization | | | | + +---------+ + + | EXTERNAL LAB | | | | + +---------+ + + Basic Metabolic Panel (10/27/2015 4:30 AM PDT) + + + + + + | Component | Value | Ref Range | Performed | Pathologist | | | | | At | Signature | + + + + + + | Na | 136Comment: Testing | 135 - 145 | EXTERNAL | | | | performed at [facility];888 | mmol/L | LAB | | | | [address];[place] | | | | | | [address] | | | | + + + + + + | K | 3.5Comment: Testing | 3.5 - 4.9 | EXTERNAL | | | | performed at [facility];888 | mmol/L | LAB | | | | [address];[place] | | | | | | [address] | | | | + + + + + + | Cl | 96 (L)Comment: Testing | 99 - 109 mmol/L | EXTERNAL | | | | performed at [facility];888 | | LAB | | | | [address];[place] | | | | | | [address] | | | | + + + + + + | CO2 | 32Comment: Testing | 23 - 32 mmol/L | EXTERNAL | | | | performed at [facility];[address] | | LAB | | | | [address];[place] | | | | | | [address] | | | | + + + + + + | Anion Gap | 11Comment: Testing | 5 - 20 mmol/L | EXTERNAL | | | | performed at [facility];[address] | | LAB | | | | [address];[place] | | | | | | [address] | | | | + + + + + + | Glucose, | 93Comment: Testing | 65 - 99 mg/dL | EXTERNAL | | | Fasting | performed at [facility];888 | | LAB | | | | [address];[place] | | | | | | [address] | | | | + + + + + + | BUN | 23Comment: Testing | 8 - 25 mg/dL | EXTERNAL | | | | performed at [facility];888 | | LAB | | | | [address];[place] | | | | | | [address] | | | | + + + + + + | Creatinine | 1.5 (H)Comment: Testing | 0.70 - 1.30 | EXTERNAL | | | | performed at [facility];888 | mg/dL | LAB | | | | [address];[place] | | | | | | [address] | | | | + + + + + + | BUN/Creatin | 15Comment: Testing | | EXTERNAL | | | ine Ratio | performed at [facility];[address] | | LAB | | | | [address];[place] | | | | | | [address] | | | | + + + + + + | Calcium | 7.7 (L)Comment: Testing | 8.5 - 10.5 | EXTERNAL | | | | performed at [facility];888 | mg/dL | LAB | | | | [address];[place], [place] | | | | | | [address] | | | | + + + + + + | Estimated | 58 (L)Comment: GFR <60: | mL/min/1.73m2 | EXTERNAL | | | GFR | CHRONIC KIDNEY DISEASE, | | LAB | | | | IF FOUND OVER A 3 MONTH | | | | | | PERIOD.GFR <15: KIDNEY | | | | | | FAILURE.FOR | | | | | | AMERICANS, MULTIPLY THE | | | | | | CALCULATED GFR BY | | | | | | 1.210.Testing performed | | | | | | at [facility];[address];[place] [address] | | | | + + + + + + + + | Specimen | + + | Blood specimen | | (specimen) | + + + +---------+ + + | Performing | Address | City/State/Zipcode | Phone Number | | Organization | | | | + +---------+ + + | EXTERNAL LAB | | | | + +---------+ + + Potassium (10/26/2015 12:58 PM PDT) + + + + + + | Component | Value | Ref Range | Performed | Pathologist | | | | | At | Signature | + + + + + + | K | 3.7Comment: Testing | 3.5 - 4.9 | EXTERNAL | | | | performed at [facility];888 | mmol/L | LAB | | | | [address];[place] | | | | | | [address] | | | | + + + + + + + + | Specimen | + + | Blood specimen | | (specimen) | + + + +---------+ + + | Performing | Address | City/State/Zipcode | Phone Number | | Organization | | | | + +---------+ + + | EXTERNAL LAB | | | | + +---------+ + + External Lab: CBC (10/26/2015 4:22 AM PDT) + + + + + + | Component | Value | Ref Range | Performed | Pathologist | | | | | At | Signature | + + + + + + | WBC | 9.21Comment: Testing | 3.80 - 11.00 | EXTERNAL | | | | performed at [facility];888 | K/uL | LAB | | | | [address];[place] | | | | | | [address] | | | | + + + + + + | Non- | 2.80 (L)Comment: Testing | 4.20 - 5.70 | EXTERNAL | | | Red Blood | performed at [facility];888 | M/uL | LAB | | | Cells | [address];[place] | | | | | Counted | [id number] | | | | + + + + + + | Hemoglobin | 8.0 (L)Comment: Testing | 13.2 - 17.0 | EXTERNAL | | | | performed at [facility];888 | g/dL | LAB | | | | [address];[place] | | | | | | [address] | | | | + + + + + + | Hematocrit, | 24.4 (L)Comment: Testing | 39.0 - 50.0 % | EXTERNAL | | | POC | performed at [facility];[address] | | LAB | | | | [address];[place] | | | | | | [address] | | | | + + + + + + | MCV | 87.2Comment: Testing | 80.0 - 100.0 fl | EXTERNAL | | | | performed at [facility];[address] | | LAB | | | | [address];[place] | | | | | | [address] | | | | + + + + + + | MCH | 28.6Comment: Testing | 27.0 - 34.0 pg | EXTERNAL | | | | performed at [facility];[address] | | LAB | | | | [address];[place] | | | | | | [address] | | | | + + + + + + | MCHC | 32.8Comment: Testing | 32.0 - 35.5 | EXTERNAL | | | | performed at [facility];888 | g/dL | LAB | | | | [address];[place] | | | | | | [address] | | | | + + + + + + | RDW-CV | 50.3Comment: Testing | 37 - 53 fl | EXTERNAL | | | | performed at [facility];[address] | | LAB | | | | [address];[place] | | | | | | [address] | | | | + + + + + + | Platelet | 508 (H)Comment: Testing | 150 - 400 K/uL | EXTERNAL | | | Count | performed at [facility];888 | | LAB | | | Plasma | [address];[place] | | | | | | [address] | | | | + + + + + + | MPV | 6.7Comment: Testing | fl | EXTERNAL | | | | performed at [facility];[address] | | LAB | | | | [address];[place] | | | | | | [address] | | | | + + + + + + | Differentia | AUTOMATEDComment: | | EXTERNAL | | | l Type | Testing performed at | | LAB | | | | [facility];[address];[place] [address] | | | | + + + + + + | % Segmented | 72.21Comment: Testing | % | EXTERNAL | | | | performed at [facility];888 | | LAB | | | Neutrophils | [address];[place] | | | | | | [address] | | | | + + + + + + | % | 16.43Comment: Testing | % | EXTERNAL | | | Lymphocytes | performed at [facility];[address] | | LAB | | | | [address];[place] | | | | | | [address] | | | | + + + + + + | % Monocytes | 8.86Comment: Testing | % | EXTERNAL | | | | performed at [facility];[address] | | LAB | | | | [address];[place] | | | | | | [address] | | | | + + + + + + | % | 1.13Comment: Testing | % | EXTERNAL | | | Eosinophils | performed at [facility];[address] | | LAB | | | | [address];[place] | | | | | | [address] | | | | + + + + + + | % Basophils | 1.37Comment: Testing | % | EXTERNAL | | | | performed at [facility];[address] | | LAB | | | | [address];[place] | | | | | | [address] | | | | + + + + + + | Absolute | 6.65Comment: Testing | 1.90 - 7.40 | EXTERNAL | | | Segmented | performed at [facility];888 | K/uL | LAB | | | Neutrophils | [address];[place] | | | | | | [address] | | | | + + + + + + | Absolute | 1.51Comment: Testing | 1.00 - 3.90 | EXTERNAL | | | Lymphocytes | performed at [facility];888 | K/uL | LAB | | | | [address];[place] | | | | | | [address] | | | | + + + + + + | Absolute | 0.82 (H)Comment: Testing | 0.00 - 0.80 | EXTERNAL | | | Monocytes | performed at [facility];888 | K/uL | LAB | | | | [address];[place] | | | | | | [address] | | | | + + + + + + | Absolute | 0.10Comment: Testing | 0.00 - 0.50 | EXTERNAL | | | Eosinophils | performed at [facility];888 | K/uL | LAB | | | | [address];[place] | | | | | | [address] | | | | + + + + + + | Absolute | 0.13 (H)Comment: Testing | 0.00 - 0.10 | EXTERNAL | | | Basophils | performed at [facility];888 | K/uL | LAB | | | | [address];[place], [place] | | | | | | [address] | | | | + + + + + + + + | Specimen | + + | Blood specimen | | (specimen) | + + + +---------+ + + | Performing | Address | City/State/Zipcode | Phone Number | | Organization | | | | + +---------+ + + | EXTERNAL LAB | | | | + +---------+ + + Phosphorus (10/26/2015 4:22 AM PDT) + + + + + + | Component | Value | Ref Range | Performed | Pathologist | | | | | At | Signature | + + + + + + | PHOSPHORUS | 4.4Comment: Testing | 2.3 - 4.8 mg/dL | EXTERNAL | | | | performed at [facility] | | LAB | | | | [address];[place] | | | | | | [address] | | | | + + + + + + + + | Specimen | + + | Blood specimen | | (specimen) | + + + +---------+ + + | Performing | Address | City/State/Zipcode | Phone Number | | Organization | | | | + +---------+ + + | EXTERNAL LAB | | | | + +---------+ + + Magnesium (10/26/2015 4:22 AM PDT) + + + + + + | Component | Value | Ref Range | Performed | Pathologist | | | | | At | Signature | + + + + + + | Magnesium | 1.7Comment: Testing | 1.7 - 2.4 mg/dL | EXTERNAL | | | | performed at [facility];8 | | LAB | | | | [facility], [place] | | | | | | [address] | | | | + + + + + + + + | Specimen | + + | Blood specimen | | (specimen) | + + + +---------+ + + | Performing | Address | City/State/Zipcode | Phone Number | | Organization | | | | + +---------+ + + | EXTERNAL LAB | | | | + +---------+ + + Basic Metabolic Panel (10/26/2015 4:22 AM PDT) + + + + + + | Component | Value | Ref Range | Performed | Pathologist | | | | | At | Signature | + + + + + + | Na | 138Comment: Testing | 135 - 145 | EXTERNAL | | | | performed at [facility];888 | mmol/L | LAB | | | | [address];[place] | | | | | | [address] | | | | + + + + + + | K | 3.4 (L)Comment: Testing | 3.5 - 4.9 | EXTERNAL | | | | performed at [facility];888 | mmol/L | LAB | | | | [address];[place] | | | | | | [address] | | | | + + + + + + | Cl | 101Comment: Testing | 99 - 109 mmol/L | EXTERNAL | | | | performed at [facility];[address] | | LAB | | | | [address];[place] | | | | | | [address] | | | | + + + + + + | CO2 | 30Comment: Testing | 23 - 32 mmol/L | EXTERNAL | | | | performed at [facility];[address] | | LAB | | | | [address];[place] | | | | | | [address] | | | | + + + + + + | Anion Gap | 11Comment: Testing | 5 - 20 mmol/L | EXTERNAL | | | | performed at [facility];[address] | | LAB | | | | [address];[place] | | | | | | [address] | | | | + + + + + + | Glucose, | 88Comment: Testing | 65 - 99 mg/dL | EXTERNAL | | | Fasting | performed at [facility];[address] | | LAB | | | | [address];[place] | | | | | | [address] | | | | + + + + + + | BUN | 21Comment: Testing | 8 - 25 mg/dL | EXTERNAL | | | | performed at [facility];[address] | | LAB | | | | [address];[place] | | | | | | [address] | | | | + + + + + + | Creatinine | 1.7 (H)Comment: Testing | 0.70 - 1.30 | EXTERNAL | | | | performed at [facility];888 | mg/dL | LAB | | | | [address];[place] | | | | | | [address] | | | | + + + + + + | BUN/Creatin | 12Comment: Testing | | EXTERNAL | | | ine Ratio | performed at [facility];[address] | | LAB | | | | [address];[place] | | | | | | [address] | | | | + + + + + + | Calcium | 7.5 (L)Comment: Testing | 8.5 - 10.5 | EXTERNAL | | | | performed at [facility];888 | mg/dL | LAB | | | | [address];[place] | | | | | | [address] | | | | + + + + + + | Estimated | 50 (L)Comment: GFR <60: | mL/min/1.73m2 | EXTERNAL | | | GFR | CHRONIC KIDNEY DISEASE, | | LAB | | | | IF FOUND OVER A 3 MONTH | | | | | | PERIOD.GFR <15: KIDNEY | | | | | | FAILURE.FOR | | | | | | AMERICANS, MULTIPLY THE | | | | | | CALCULATED GFR BY | | | | | | 1.210.Testing performed | | | | | | at [facility];[address];[place] [address] | | | | + + + + + + + + | Specimen | + + | Blood specimen | | (specimen) | + + + +---------+ + + | Performing | Address | City/State/Zipcode | Phone Number | | Organization | | | | + +---------+ + + | EXTERNAL LAB | | | | + +---------+ + + Potassium (10/25/2015 11:12 PM PDT) + + + + + + | Component | Value | Ref Range | Performed | Pathologist | | | | | At | Signature | + + + + + + | K | 3.6Comment: Testing | 3.5 - 4.9 | EXTERNAL | | | | performed at [facility];888 | mmol/L | LAB | | | | [facility], [place] | | | | | | [address] | | | | + + + + + + + + | Specimen | + + | Blood specimen | | (specimen) | + + + +---------+ + + | Performing | Address | City/State/Zipcode | Phone Number | | Organization | | | | + +---------+ + + | EXTERNAL LAB | | | | + +---------+ + + Phosphorus (10/25/2015 11:12 PM PDT) + + + + + + | Component | Value | Ref Range | Performed | Pathologist | | | | | At | Signature | + + + + + + | PHOSPHORUS | 3.6Comment: Testing | 2.3 - 4.8 mg/dL | EXTERNAL | | | | performed at [facility];[address] | | LAB | | | | [address];[place] | | | | | | [address] | | | | + + + + + + + + | Specimen | + + | Blood specimen | | (specimen) | + + + +---------+ + + | Performing | Address | City/State/Zipcode | Phone Number | | Organization | | | | + +---------+ + + | EXTERNAL LAB | | | | + +---------+ + + Magnesium (10/25/2015 11:12 PM PDT) + + + + + + | Component | Value | Ref Range | Performed | Pathologist | | | | | At | Signature | + + + + + + | Magnesium | 2.0Comment: Testing | 1.7 - 2.4 mg/dL | EXTERNAL | | | | performed at [facility];[address] | | LAB | | | | [address];[place] | | | | | | [address] | | | | + + + + + + + + | Specimen | + + | Blood specimen | | (specimen) | + + + +---------+ + + | Performing | Address | City/State/Zipcode | Phone Number | | Organization | | | | + +---------+ + + | EXTERNAL LAB | | | | + +---------+ + + Hemoglobin and Hematocrit (10/25/2015 2:15 PM PDT) + + + + + + | Component | Value | Ref Range | Performed | Pathologist | | | | | At | Signature | + + + + + + | Hemoglobin | 8.3 (L)Comment: Testing | 13.2 - 17.0 | EXTERNAL | | | | performed at [facility];888 | g/dL | LAB | | | | [address];[place] | | | | | | [address] | | | | + + + + + + | Hematocrit, | 25.6 (L)Comment: Testing | 39.0 - 50.0 % | EXTERNAL | | | POC | performed at [facility];[address] | | LAB | | | | [address];[place] | | | | | | [address] | | | | + + + + + + + + | Specimen | + + | | + + + +---------+ + + | Performing | Address | City/State/Zipcode | Phone Number | | Organization | | | | + +---------+ + + | EXTERNAL LAB | | | | + +---------+ + + Potassium (10/25/2015 2:15 PM PDT) + + + + + + | Component | Value | Ref Range | Performed | Pathologist | | | | | At | Signature | + + + + + + | K | 3.3 (L)Comment: Testing | 3.5 - 4.9 | EXTERNAL | | | | performed at [facility];888 | mmol/L | LAB | | | | [address];[place], [place] | | | | | | [address] | | | | + + + + + + + + | Specimen | + + | | + + + +---------+ + + | Performing | Address | City/State/Zipcode | Phone Number | | Organization | | | | + +---------+ + + | EXTERNAL LAB | | | | + +---------+ + + Phosphorus (10/25/2015 2:15 PM PDT) + + + + + + | Component | Value | Ref Range | Performed | Pathologist | | | | | At | Signature | + + + + + + | PHOSPHORUS | 4.1Comment: Testing | 2.3 - 4.8 mg/dL | EXTERNAL | | | | performed at [facility] | | LAB | | | | [address];[place] | | | | | | [address] | | | | + + + + + + + + | Specimen | + + | | + + + +---------+ + + | Performing | Address | City/State/Zipcode | Phone Number | | Organization | | | | + +---------+ + + | EXTERNAL LAB | | | | + +---------+ + + Magnesium (10/25/2015 2:15 PM PDT) + + + + + + | Component | Value | Ref Range | Performed | Pathologist | | | | | At | Signature | + + + + + + | Magnesium | 1.8Comment: Testing | 1.7 - 2.4 mg/dL | EXTERNAL | | | | performed at [facility];[address] | | LAB | | | | [address];[place], [place] | | | | | | [address] | | | | + + + + + + + + | Specimen | + + | | + + + +---------+ + + | Performing | Address | City/State/Zipcode | Phone Number | | Organization | | | | + +---------+ + + | EXTERNAL LAB | | | | + +---------+ + + External Lab: CBC (10/25/2015 3:03 AM PDT) + + + + + + | Component | Value | Ref Range | Performed | Pathologist | | | | | At | Signature | + + + + + + | WBC | 7.48Comment: Testing | 3.80 - 11.00 | EXTERNAL | | | | performed at [facility], [address] | K/uL | LAB | | | | [address], | | | | | | [place] [address] | | | | + + + + + + | Non- | 2.62 (L)Comment: Testing | 4.20 - 5.70 | EXTERNAL | | | Red Blood | performed at [facility], [address] | M/uL | LAB | | | Cells | [address], | | | | | Counted | [place] [address] | | | | + + + + + + | Hemoglobin | 7.4 (L)Comment: Testing | 13.2 - 17.0 | EXTERNAL | | | | performed at [facility], [address] | g/dL | LAB | | | | [address], | | | | | | [place] [address] | | | | + + + + + + | Hematocrit, | 22.8 (L)Comment: Testing | 39.0 - 50.0 % | EXTERNAL | | | POC | performed at [facility], [address] | | LAB | | | | [address], | | | | | | [place] [address] | | | | + + + + + + | MCV | 87.1Comment: Testing | 80.0 - 100.0 fl | EXTERNAL | | | | performed at [facility], [address] | | LAB | | | | [address], | | | | | | [place] [address] | | | | + + + + + + | MCH | 28.0Comment: Testing | 27.0 - 34.0 pg | EXTERNAL | | | | performed at [facility], [address] | | LAB | | | | [address], | | | | | | [place] [address] | | | | + + + + + + | MCHC | 32.2Comment: Testing | 32.0 - 35.5 | EXTERNAL | | | | performed at [facility], [address] | g/dL | LAB | | | | [address], | | | | | | [place] [address] | | | | + + + + + + | RDW-CV | 51.2Comment: Testing | 37 - 53 fl | EXTERNAL | | | | performed at [facility], [address] | | LAB | | | | [address], | | | | | | [place] [address] | | | | + + + + + + | Platelet | 501 (H)Comment: Testing | 150 - 400 K/uL | EXTERNAL | | | Count | performed at [facility], [address] | | LAB | | | Plasma | [address], | | | | | | [place] [address] | | | | + + + + + + | MPV | 7.0Comment: Testing | fl | EXTERNAL | | | | performed at [facility], [address] | | LAB | | | | [address], | | | | | | [place] [address] | | | | + + + + + + | Differentia | AUTOMATEDComment: | | EXTERNAL | | | l Type | Testing performed at | | LAB | | | | [facility], [address] | | | | | | [place] | | | | | | [address] | | | | + + + + + + | % Segmented | 76.45Comment: Testing | % | EXTERNAL | | | | performed at [facility], [address] | | LAB | | | Neutrophils | [address], | | | | | | [place] [address] | | | | + + + + + + | % | 11.49Comment: Testing | % | EXTERNAL | | | Lymphocytes | performed at [facility], [address] | | LAB | | | | [address], | | | | | | [place] [address] | | | | + + + + + + | % Monocytes | 8.30Comment: Testing | % | EXTERNAL | | | | performed at [facility], [address] | | LAB | | | | [address], | | | | | | [place] [address] | | | | + + + + + + | % | 2.35Comment: Testing | % | EXTERNAL | | | Eosinophils | performed at [facility], [address] | | LAB | | | | [address], | | | | | | [place] [address] | | | | + + + + + + | % Basophils | 1.41Comment: Testing | % | EXTERNAL | | | | performed at [facility], [address] | | LAB | | | | [address], | | | | | | [place] [address] | | | | + + + + + + | Absolute | 5.72Comment: Testing | 1.90 - 7.40 | EXTERNAL | | | Segmented | performed at [facility], [address] | K/uL | LAB | | | Neutrophils | [address], | | | | | | [place] [address] | | | | + + + + + + | Absolute | 0.86 (L)Comment: Testing | 1.00 - 3.90 | EXTERNAL | | | Lymphocytes | performed at [facility], [address] | K/uL | LAB | | | | [address], | | | | | | [place] [address] | | | | + + + + + + | Absolute | 0.62Comment: Testing | 0.00 - 0.80 | EXTERNAL | | | Monocytes | performed at [facility], [address] | K/uL | LAB | | | | [address], | | | | | | [place] [address] | | | | + + + + + + | Absolute | 0.18Comment: Testing | 0.00 - 0.50 | EXTERNAL | | | Eosinophils | performed at [facility], [address] | K/uL | LAB | | | | [address], | | | | | | [place] [address] | | | | + + + + + + | Absolute | 0.11 (H)Comment: Testing | 0.00 - 0.10 | EXTERNAL | | | Basophils | performed at [facility], [address] | K/uL | LAB | | | | [address], | | | | | | [place] [address] | | | | + + + + + + + + | Specimen | + + | Blood specimen | | (specimen) | + + + +---------+ + + | Performing | Address | City/State/Zipcode | Phone Number | | Organization | | | | + +---------+ + + | EXTERNAL LAB | | | | + +---------+ + + Phosphorus (10/25/2015 3:03 AM PDT) + + + + + + | Component | Value | Ref Range | Performed | Pathologist | | | | | At | Signature | + + + + + + | PHOSPHORUS | 4.4Comment: Testing | 2.3 - 4.8 mg/dL | EXTERNAL | | | | performed at [facility], [address] | | LAB | | | | [address], | | | | | | [place] [address] | | | | + + + + + + + + | Specimen | + + | Blood specimen | | (specimen) | + + + +---------+ + + | Performing | Address | City/State/Zipcode | Phone Number | | Organization | | | | + +---------+ + + | EXTERNAL LAB | | | | + +---------+ + + Magnesium (10/25/2015 3:03 AM PDT) + + + + + + | Component | Value | Ref Range | Performed | Pathologist | | | | | At | Signature | + + + + + + | Magnesium | 1.7Comment: Testing | 1.7 - 2.4 mg/dL | EXTERNAL | | | | performed at [facility], [address] | | LAB | | | | [address], | | | | | | [place] [address] | | | | + + + + + + + + | Specimen | + + | Blood specimen | | (specimen) | + + + +---------+ + + | Performing | Address | City/State/Zipcode | Phone Number | | Organization | | | | + +---------+ + + | EXTERNAL LAB | | | | + +---------+ + + Basic Metabolic Panel (10/25/2015 3:03 AM PDT) + + + + + + | Component | Value | Ref Range | Performed | Pathologist | | | | | At | Signature | + + + + + + | Na | 141Comment: Testing | 135 - 145 | EXTERNAL | | | | performed at [facility], [address] | mmol/L | LAB | | | | [address], | | | | | | [place] [address] | | | | + + + + + + | K | 3.3 (L)Comment: Testing | 3.5 - 4.9 | EXTERNAL | | | | performed at [facility], [address] | mmol/L | LAB | | | | [address], | | | | | | [place] [address] | | | | + + + + + + | Cl | 105Comment: Testing | 99 - 109 mmol/L | EXTERNAL | | | | performed at [facility], [address] | | LAB | | | | [address], | | | | | | [place] [address] | | | | + + + + + + | CO2 | 26Comment: Testing | 23 - 32 mmol/L | EXTERNAL | | | | performed at [facility], [address] | | LAB | | | | [address], | | | | | | [place] [address] | | | | + + + + + + | Anion Gap | 13Comment: Testing | 5 - 20 mmol/L | EXTERNAL | | | | performed at [facility], [address] | | LAB | | | | [address], | | | | | | [place] [address] | | | | + + + + + + | Glucose, | 106 (H)Comment: Testing | 65 - 99 mg/dL | EXTERNAL | | | Fasting | performed at [facility], [address] | | LAB | | | | [address], | | | | | | [place] [address] | | | | + + + + + + | BUN | 25Comment: Testing | 8 - 25 mg/dL | EXTERNAL | | | | performed at [facility], [address] | | LAB | | | | [address], | | | | | | [place] [address] | | | | + + + + + + | Creatinine | 2.0 (H)Comment: Testing | 0.70 - 1.30 | EXTERNAL | | | | performed at [facility], [address] | mg/dL | LAB | | | | [address], | | | | | | [place] [address] | | | | + + + + + + | BUN/Creatin | 13Comment: Testing | | EXTERNAL | | | ine Ratio | performed at [facility], [address] | | LAB | | | | [address], | | | | | | [place] [address] | | | | + + + + + + | Calcium | 7.1 (L)Comment: Testing | 8.5 - 10.5 | EXTERNAL | | | | performed at [facility], [address] | mg/dL | LAB | | | | [facility], | | | | | | [place] [address] | | | | + + + + + + | Estimated | 41 (L)Comment: GFR <60: | mL/min/1.73m2 | EXTERNAL | | | GFR | CHRONIC KIDNEY DISEASE, | | LAB | | | | IF FOUND OVER A 3 MONTH | | | | | | PERIOD.GFR <15: KIDNEY | | | | | | FAILURE.FOR | | | | | | AMERICANS, MULTIPLY THE | | | | | | CALCULATED GFR BY | | | | | | 1.210.Testing performed | | | | | | at [facility], [address] | | | | | | [facility], | | | | | | [place] [address] | | | | + + + + + + + + | Specimen | + + | Blood specimen | | (specimen) | + + + +---------+ + + | Performing | Address | City/State/Zipcode | Phone Number | | Organization | | | | + +---------+ + + | EXTERNAL LAB | | | | + +---------+ + + Potassium (10/24/2015 9:00 PM PDT) + + + + + + | Component | Value | Ref Range | Performed | Pathologist | | | | | At | Signature | + + + + + + | K | 2.7 (LL)Comment: CALLED | 3.5 - 4.9 | EXTERNAL | | | | RESULTSREAD BACK RESULTS | mmol/L | LAB | | | | VERIFIEDLENORA N/ICU | | | | | | AT [address] | | | | | | performed at [facility];[address] | | | | | | [address];[place] | | | | | | [address] | | | | + + + + + + + + | Specimen | + + | Blood specimen | | (specimen) | + + + +---------+ + + | Performing | Address | City/State/Zipcode | Phone Number | | Organization | | | | + +---------+ + + | EXTERNAL LAB | | | | + +---------+ + + Magnesium (10/24/2015 9:00 PM PDT) + + + + + + | Component | Value | Ref Range | Performed | Pathologist | | | | | At | Signature | + + + + + + | Magnesium | 1.5 (L)Comment: Testing | 1.7 - 2.4 mg/dL | EXTERNAL | | | | performed at [facility] | | LAB | | | | [address];[place], [place] | | | | | | [address] | | | | + + + + + + + + | Specimen | + + | Blood specimen | | (specimen) | + + + +---------+ + + | Performing | Address | City/State/Zipcode | Phone Number | | Organization | | | | + +---------+ + + | EXTERNAL LAB | | | | + +---------+ + + Potassium (10/24/2015 11:52 AM PDT) + + + + + + | Component | Value | Ref Range | Performed | Pathologist | | | | | At | Signature | + + + + + + | K | 3.0 (L)Comment: Testing | 3.5 - 4.9 | EXTERNAL | | | | performed at [facility];[address] | mmol/L | LAB | | | | [address];[place], [place] | | | | | | [address] | | | | + + + + + + + + | Specimen | + + | Blood specimen | | (specimen) | + + + +---------+ + + | Performing | Address | City/State/Zipcode | Phone Number | | Organization | | | | + +---------+ + + | EXTERNAL LAB | | | | + +---------+ + + Magnesium (10/24/2015 11:52 AM PDT) + + + + + + | Component | Value | Ref Range | Performed | Pathologist | | | | | At | Signature | + + + + + + | Magnesium | 1.7Comment: Testing | 1.7 - 2.4 mg/dL | EXTERNAL | | | | performed at [facility];[address] | | LAB | | | | [address];[place], [place] | | | | | | [address] | | | | + + + + + + + + | Specimen | + + | Blood specimen | | (specimen) | + + + +---------+ + + | Performing | Address | City/State/Zipcode | Phone Number | | Organization | | | | + +---------+ + + | EXTERNAL LAB | | | | + +---------+ + + XR Chest 1 Vw (10/24/2015 5:36 AM PDT) + + | Specimen | + + | | + + + + + | Impressions | Performed At | + + + | 1. Lines are unchanged in position. 2. Slight interval | | | worsening of right lower and mid lung airspace disease. | | | | | + + + + + + | Narrative | Performed At | + + + | YANG RIDLEY 1985 30 years XR CHEST 1 VIEW 10/24/2015 5:36 AM | | | INDICATION: Shortness of breath COMPARISON: 10/22/2015 and | | | prior exams dating back to 10/17/2015. TECHNIQUE: Chest 1 view, AP | | | view of the chest FINDINGS: Cardiomediastinal silhouette is | | | unchanged in appearance. Lines are unchanged in position. Slight | | | worsening of right lower and midlung airspace opacification. Bilateral | | | patchy airspace opacities are demonstrated again, right greater than | | | left. Small bilateral pleural effusions, unchanged. No pneumothorax | | | is evident. | | + + + + + | Procedure Note | + + | Elmer, Rad Conversion - 11/01/2018 7:23 PM PDT YANG ELDER1985 30 yearsXR CHEST 1 | | VIEW10/24/2015 5:36 AM INDICATION: Shortness of breath COMPARISON: 10/22/2015 and prior | | exams dating back to 10/17/2015. TECHNIQUE: Chest 1 view, AP view of the chest FINDINGS: | | Cardiomediastinal silhouette is unchanged in appearance. Lines are unchanged in | | position. Slight worsening of right lower and midlung airspace opacification. Bilateral | | patchy airspace opacities are demonstrated again, right greater than left. Small | | bilateral pleural effusions, unchanged. No pneumothorax is evident. IMPRESSION: 1. | | Lines are unchanged in position.2. Slight interval worsening of right lower and mid | | lung airspace disease. | | | |TECHNIQUE: Chest 1 view, AP view of the chest | | | |FINDINGS: Cardiomediastinal silhouette is unchanged in appearance. Lines are unchanged in position. Slight worsening of right lower and midlung airspace opacification. Bilateral patc hy airspace opacities are | |demonstrated again, right greater than left. | |Small bilateral pleural effusions, unchanged. No pneumothorax is evident. | | | |IMPRESSION: | |1. Lines are unchanged in position. | |2. Slight interval worsening of right lower and mid lung airspace disease. | | | | | + + External Lab: CBC (10/24/2015 3:12 AM PDT) + + + + + + | Component | Value | Ref Range | Performed | Pathologist | | | | | At | Signature | + + + + + + | WBC | 7.80Comment: Testing | 3.80 - 11.00 | EXTERNAL | | | | performed at [facility], [address] | K/uL | LAB | | | | [address], | | | | | | [place] [address] | | | | + + + + + + | Non- | 2.70 (L)Comment: Testing | 4.20 - 5.70 | EXTERNAL | | | Red Blood | performed at [facility], [address] | M/uL | LAB | | | Cells | [address], | | | | | Counted | [place] [address] | | | | + + + + + + | Hemoglobin | 7.7 (L)Comment: Testing | 13.2 - 17.0 | EXTERNAL | | | | performed at [facility], [address] | g/dL | LAB | | | | [address], | | | | | | [place] [address] | | | | + + + + + + | Hematocrit, | 23.5 (L)Comment: Testing | 39.0 - 50.0 % | EXTERNAL | | | POC | performed at [facility], [address] | | LAB | | | | [address], | | | | | | [place] [address] | | | | + + + + + + | MCV | 87.0Comment: Testing | 80.0 - 100.0 fl | EXTERNAL | | | | performed at [facility], [address] | | LAB | | | | [address], | | | | | | [place] [address] | | | | + + + + + + | MCH | 28.6Comment: Testing | 27.0 - 34.0 pg | EXTERNAL | | | | performed at [facility], [address] | | LAB | | | | [address], | | | | | | [place] [address] | | | | + + + + + + | MCHC | 32.9Comment: Testing | 32.0 - 35.5 | EXTERNAL | | | | performed at [facility], [address] | g/dL | LAB | | | | [address], | | | | | | [place] [address] | | | | + + + + + + | RDW-CV | 49.4Comment: Testing | 37 - 53 fl | EXTERNAL | | | | performed at [facility], [address] | | LAB | | | | [address], | | | | | | [place] [address] | | | | + + + + + + | Platelet | 517 (H)Comment: Testing | 150 - 400 K/uL | EXTERNAL | | | Count | performed at [facility], [address] | | LAB | | | Plasma | [address], | | | | | | [place] [address] | | | | + + + + + + | MPV | 6.9Comment: Testing | fl | EXTERNAL | | | | performed at [facility], [address] | | LAB | | | | [address], | | | | | | [place] [address] | | | | + + + + + + | Differentia | AUTOMATEDComment: | | EXTERNAL | | | l Type | Testing performed at | | LAB | | | | [facility], [address] | | | | | | [place] | | | | | | [address] | | | | + + + + + + | % Segmented | 73.19Comment: Testing | % | EXTERNAL | | | | performed at [facility], [address] | | LAB | | | Neutrophils | [address], | | | | | | [place] [address] | | | | + + + + + + | % | 11.60Comment: Testing | % | EXTERNAL | | | Lymphocytes | performed at [facility], [address] | | LAB | | | | [address], | | | | | | [place] [address] | | | | + + + + + + | % Monocytes | 8.77Comment: Testing | % | EXTERNAL | | | | performed at [facility], [address] | | LAB | | | | [address], | | | | | | [place] [address] | | | | + + + + + + | % | 5.44Comment: Testing | % | EXTERNAL | | | Eosinophils | performed at [facility], [address] | | LAB | | | | [address], | | | | | | [place] [address] | | | | + + + + + + | % Basophils | 1.00Comment: Testing | % | EXTERNAL | | | | performed at [facility], [address] | | LAB | | | | [address], | | | | | | [place] [address] | | | | + + + + + + | Absolute | 5.71Comment: Testing | 1.90 - 7.40 | EXTERNAL | | | Segmented | performed at [facility], [address] | K/uL | LAB | | | Neutrophils | [address], | | | | | | [place] [address] | | | | + + + + + + | Absolute | 0.91 (L)Comment: Testing | 1.00 - 3.90 | EXTERNAL | | | Lymphocytes | performed at [facility], [address] | K/uL | LAB | | | | [address], | | | | | | [place] [address] | | | | + + + + + + | Absolute | 0.68Comment: Testing | 0.00 - 0.80 | EXTERNAL | | | Monocytes | performed at [facility], [address] | K/uL | LAB | | | | [address], | | | | | | [place] [address] | | | | + + + + + + | Absolute | 0.42Comment: Testing | 0.00 - 0.50 | EXTERNAL | | | Eosinophils | performed at [facility], [address] | K/uL | LAB | | | | [address], | | | | | | [place] [address] | | | | + + + + + + | Absolute | 0.08Comment: Testing | 0.00 - 0.10 | EXTERNAL | | | Basophils | performed at [facility], [address] | K/uL | LAB | | | | [address], | | | | | | [place] [address] | | | | + + + + + + + + | Specimen | + + | Blood specimen | | (specimen) | + + + +---------+ + + | Performing | Address | City/State/Zipcode | Phone Number | | Organization | | | | + +---------+ + + | EXTERNAL LAB | | | | + +---------+ + + Phosphorus (10/24/2015 3:12 AM PDT) + + + + + + | Component | Value | Ref Range | Performed | Pathologist | | | | | At | Signature | + + + + + + | PHOSPHORUS | 4.9 (H)Comment: Testing | 2.3 - 4.8 mg/dL | EXTERNAL | | | | performed at [facility], [address] | | LAB | | | | [address], | | | | | | [place] [address] | | | | + + + + + + + + | Specimen | + + | Blood specimen | | (specimen) | + + + +---------+ + + | Performing | Address | City/State/Zipcode | Phone Number | | Organization | | | | + +---------+ + + | EXTERNAL LAB | | | | + +---------+ + + Magnesium (10/24/2015 3:12 AM PDT) + + + + + + | Component | Value | Ref Range | Performed | Pathologist | | | | | At | Signature | + + + + + + | Magnesium | 1.2 (L)Comment: Testing | 1.7 - 2.4 mg/dL | EXTERNAL | | | | performed at [facility], [address] | | LAB | | | | [address], | | | | | | [place] [address] | | | | + + + + + + + + | Specimen | + + | Blood specimen | | (specimen) | + + + +---------+ + + | Performing | Address | City/State/Zipcode | Phone Number | | Organization | | | | + +---------+ + + | EXTERNAL LAB | | | | + +---------+ + + Basic Metabolic Panel (10/24/2015 3:12 AM PDT) + + + + + + | Component | Value | Ref Range | Performed | Pathologist | | | | | At | Signature | + + + + + + | Na | 139Comment: Testing | 135 - 145 | EXTERNAL | | | | performed at [facility], [address] | mmol/L | LAB | | | | [address], | | | | | | [place] [address] | | | | + + + + + + | K | 2.7 (LL)Comment: RESULT | 3.5 - 4.9 | EXTERNAL | | | | READ BACK BY:Ericka BLANCA | mmol/L | LAB | | | | RN/ ICU/ [id number]/ [id number]/ | | | | | | JTMTesting performed at | | | | | | [facility], [address] | | | | | | [place] | | | | | | [address] | | | | + + + + + + | Cl | 103Comment: Testing | 99 - 109 mmol/L | EXTERNAL | | | | performed at [facility], [address] | | LAB | | | | [address], | | | | | | [place] [address] | | | | + + + + + + | CO2 | 25Comment: Testing | 23 - 32 mmol/L | EXTERNAL | | | | performed at [facility], [address] | | LAB | | | | [address], | | | | | | [place] [address] | | | | + + + + + + | Anion Gap | 14Comment: Testing | 5 - 20 mmol/L | EXTERNAL | | | | performed at [facility], [address] | | LAB | | | | [address], | | | | | | [place] [address] | | | | + + + + + + | Glucose, | 100 (H)Comment: Testing | 65 - 99 mg/dL | EXTERNAL | | | Fasting | performed at [facility], [address] | | LAB | | | | [address], | | | | | | [place] [address] | | | | + + + + + + | BUN | 30 (H)Comment: Testing | 8 - 25 mg/dL | EXTERNAL | | | | performed at [facility], [address] | | LAB | | | | [address], | | | | | | [place] [address] | | | | + + + + + + | Creatinine | 2.4 (H)Comment: Testing | 0.70 - 1.30 | EXTERNAL | | | | performed at [facility], [address] | mg/dL | LAB | | | | [address], | | | | | | [place] [address] | | | | + + + + + + | BUN/Creatin | 13Comment: Testing | | EXTERNAL | | | ine Ratio | performed at [facility], [address] | | LAB | | | | [address], | | | | | | [place] [address] | | | | + + + + + + | Calcium | 7.5 (L)Comment: Testing | 8.5 - 10.5 | EXTERNAL | | | | performed at [facility], [address] | mg/dL | LAB | | | | [address], | | | | | | [place] [address] | | | | + + + + + + | Estimated | 34 (L)Comment: GFR <60: | mL/min/1.73m2 | EXTERNAL | | | GFR | CHRONIC KIDNEY DISEASE, | | LAB | | | | IF FOUND OVER A 3 MONTH | | | | | | PERIOD.GFR <15: KIDNEY | | | | | | FAILURE.FOR | | | | | | AMERICANS, MULTIPLY THE | | | | | | CALCULATED GFR BY | | | | | | 1.210.Testing performed | | | | | | at [facility], [address] | | | | | | [address], | | | | | | [place] [address] | | | | + + + + + + + + | Specimen | + + | Blood specimen | | (specimen) | + + + +---------+ + + | Performing | Address | City/State/Zipcode | Phone Number | | Organization | | | | + +---------+ + + | EXTERNAL LAB | | | | + +---------+ + + External Lab: CBC (10/23/2015 3:24 AM PDT) + + + + + + | Component | Value | Ref Range | Performed | Pathologist | | | | | At | Signature | + + + + + + | WBC | 7.93Comment: Testing | 3.80 - 11.00 | EXTERNAL | | | | performed at [facility], [address] | K/uL | LAB | | | | [address], | | | | | | [place] [address] | | | | + + + + + + | Non- | 2.66 (L)Comment: Testing | 4.20 - 5.70 | EXTERNAL | | | Red Blood | performed at [facility], [address] | M/uL | LAB | | | Cells | [address], | | | | | Counted | [place] [address] | | | | + + + + + + | Hemoglobin | 7.8 (L)Comment: Testing | 13.2 - 17.0 | EXTERNAL | | | | performed at [facility], [address] | g/dL | LAB | | | | [address], | | | | | | [place] [address] | | | | + + + + + + | Hematocrit, | 23.4 (L)Comment: Testing | 39.0 - 50.0 % | EXTERNAL | | | POC | performed at [facility], [address] | | LAB | | | | [address], | | | | | | [place] [address] | | | | + + + + + + | MCV | 87.9Comment: Testing | 80.0 - 100.0 fl | EXTERNAL | | | | performed at [facility], [address] | | LAB | | | | [address], | | | | | | [place] [address] | | | | + + + + + + | MCH | 29.2Comment: Testing | 27.0 - 34.0 pg | EXTERNAL | | | | performed at [facility], [address] | | LAB | | | | [address], | | | | | | [place] [address] | | | | + + + + + + | MCHC | 33.2Comment: Testing | 32.0 - 35.5 | EXTERNAL | | | | performed at [facility], [address] | g/dL | LAB | | | | [address], | | | | | | [place] [address] | | | | + + + + + + | RDW-CV | 50.8Comment: Testing | 37 - 53 fl | EXTERNAL | | | | performed at [facility], [address] | | LAB | | | | [address], | | | | | | [place] [address] | | | | + + + + + + | Platelet | 457 (H)Comment: Testing | 150 - 400 K/uL | EXTERNAL | | | Count | performed at [facility], [address] | | LAB | | | Plasma | [address], | | | | | | [place] [address] | | | | + + + + + + | MPV | 7.3Comment: Testing | fl | EXTERNAL | | | | performed at [facility], [address] | | LAB | | | | [address], | | | | | | [place] [address] | | | | + + + + + + | Differentia | AUTOMATEDComment: | | EXTERNAL | | | l Type | Testing performed at | | LAB | | | | [facility], [address] | | | | | | [place] | | | | | | [address] | | | | + + + + + + | % Segmented | 75.48Comment: Testing | % | EXTERNAL | | | | performed at [facility], [address] | | LAB | | | Neutrophils | [address], | | | | | | [place] [address] | | | | + + + + + + | % | 10.36Comment: Testing | % | EXTERNAL | | | Lymphocytes | performed at [facility], [address] | | LAB | | | | [address], | | | | | | [place] [address] | | | | + + + + + + | % Monocytes | 8.45Comment: Testing | % | EXTERNAL | | | | performed at [facility], [address] | | LAB | | | | [address], | | | | | | [place] [address] | | | | + + + + + + | % | 4.27Comment: Testing | % | EXTERNAL | | | Eosinophils | performed at [facility], [address] | | LAB | | | | [address], | | | | | | [place] [address] | | | | + + + + + + | % Basophils | 1.44Comment: Testing | % | EXTERNAL | | | | performed at [facility], [address] | | LAB | | | | [address], | | | | | | [place] [address] | | | | + + + + + + | Absolute | 5.99Comment: Testing | 1.90 - 7.40 | EXTERNAL | | | Segmented | performed at [facility], [address] | K/uL | LAB | | | Neutrophils | [address], | | | | | | [place] [address] | | | | + + + + + + | Absolute | 0.82 (L)Comment: Testing | 1.00 - 3.90 | EXTERNAL | | | Lymphocytes | performed at [facility], [address] | K/uL | LAB | | | | [address], | | | | | | [place] [address] | | | | + + + + + + | Absolute | 0.67Comment: Testing | 0.00 - 0.80 | EXTERNAL | | | Monocytes | performed at [facility], [address] | K/uL | LAB | | | | [address], | | | | | | [place] [address] | | | | + + + + + + | Absolute | 0.34Comment: Testing | 0.00 - 0.50 | EXTERNAL | | | Eosinophils | performed at [facility], [address] | K/uL | LAB | | | | [address], | | | | | | [place] [address] | | | | + + + + + + | Absolute | 0.12 (H)Comment: Testing | 0.00 - 0.10 | EXTERNAL | | | Basophils | performed at [facility], [address] | K/uL | LAB | | | | [address], | | | | | | [place] [address] | | | | + + + + + + + + | Specimen | + + | Blood specimen | | (specimen) | + + + +---------+ + + | Performing | Address | City/State/Zipcode | Phone Number | | Organization | | | | + +---------+ + + | EXTERNAL LAB | | | | + +---------+ + + Phosphorus (10/23/2015 3:24 AM PDT) + + + + + + | Component | Value | Ref Range | Performed | Pathologist | | | | | At | Signature | + + + + + + | PHOSPHORUS | 4.8Comment: Testing | 2.3 - 4.8 mg/dL | EXTERNAL | | | | performed at [facility], [address] | | LAB | | | | [address], | | | | | | [place] [address] | | | | + + + + + + + + | Specimen | + + | Blood specimen | | (specimen) | + + + +---------+ + + | Performing | Address | City/State/Zipcode | Phone Number | | Organization | | | | + +---------+ + + | EXTERNAL LAB | | | | + +---------+ + + Magnesium (10/23/2015 3:24 AM PDT) + + + + + + | Component | Value | Ref Range | Performed | Pathologist | | | | | At | Signature | + + + + + + | Magnesium | 1.5 (L)Comment: Testing | 1.7 - 2.4 mg/dL | EXTERNAL | | | | performed at [facility], [address] | | LAB | | | | [address], | | | | | | [place] [address] | | | | + + + + + + + + | Specimen | + + | Blood specimen | | (specimen) | + + + +---------+ + + | Performing | Address | City/State/Zipcode | Phone Number | | Organization | | | | + +---------+ + + | EXTERNAL LAB | | | | + +---------+ + + Basic Metabolic Panel (10/23/2015 3:24 AM PDT) + + + + + + | Component | Value | Ref Range | Performed | Pathologist | | | | | At | Signature | + + + + + + | Na | 141Comment: Testing | 135 - 145 | EXTERNAL | | | | performed at [facility], [address] | mmol/L | LAB | | | | [address], | | | | | | [place] [address] | | | | + + + + + + | K | 3.1 (L)Comment: Testing | 3.5 - 4.9 | EXTERNAL | | | | performed at [facility], [address] | mmol/L | LAB | | | | [address], | | | | | | [place] [address] | | | | + + + + + + | Cl | 107Comment: Testing | 99 - 109 mmol/L | EXTERNAL | | | | performed at [facility], [address] | | LAB | | | | [address], | | | | | | [place] [address] | | | | + + + + + + | CO2 | 22 (L)Comment: Testing | 23 - 32 mmol/L | EXTERNAL | | | | performed at [facility], [address] | | LAB | | | | [address], | | | | | | [place] [address] | | | | + + + + + + | Anion Gap | 15Comment: Testing | 5 - 20 mmol/L | EXTERNAL | | | | performed at [facility], [address] | | LAB | | | | [address], | | | | | | [place] [address] | | | | + + + + + + | Glucose, | 110 (H)Comment: Testing | 65 - 99 mg/dL | EXTERNAL | | | Fasting | performed at [facility], [address] | | LAB | | | | [address], | | | | | | [place] [address] | | | | + + + + + + | BUN | 30 (H)Comment: Testing | 8 - 25 mg/dL | EXTERNAL | | | | performed at [facility], [address] | | LAB | | | | [address], | | | | | | [place] [address] | | | | + + + + + + | Creatinine | 2.6 (H)Comment: Testing | 0.70 - 1.30 | EXTERNAL | | | | performed at [facility], [address] | mg/dL | LAB | | | | [address], | | | | | | [place] [address] | | | | + + + + + + | BUN/Creatin | 12Comment: Testing | | EXTERNAL | | | ine Ratio | performed at [facility], [address] | | LAB | | | | [address], | | | | | | [place] [address] | | | | + + + + + + | Calcium | 7.7 (L)Comment: Testing | 8.5 - 10.5 | EXTERNAL | | | | performed at [facility], [address] | mg/dL | LAB | | | | [address], | | | | | | [place] [address] | | | | + + + + + + | Estimated | 31 (L)Comment: GFR <60: | mL/min/1.73m2 | EXTERNAL | | | GFR | CHRONIC KIDNEY DISEASE, | | LAB | | | | IF FOUND OVER A 3 MONTH | | | | | | PERIOD.GFR <15: KIDNEY | | | | | | FAILURE.FOR | | | | | | AMERICANS, MULTIPLY THE | | | | | | CALCULATED GFR BY | | | | | | 1.210.Testing performed | | | | | | at [facility], [address] | | | | | | [address], | | | | | | [place] [address] | | | | + + + + + + + + | Specimen | + + | Blood specimen | | (specimen) | + + + +---------+ + + | Performing | Address | City/State/Zipcode | Phone Number | | Organization | | | | + +---------+ + + | EXTERNAL LAB | | | | + +---------+ + + XR Chest 1 Vw (10/22/2015 5:26 AM PDT) + + | Specimen | + + | | + + + + + | Impressions | Performed At | + + + | 1. Changes to the tubes and lines, as above. No evidence of a | | | pneumothorax. 2. Patchy bilateral infiltrates, mildly progressive | | | on the right. 3. Unchanged small bilateral pleural effusions. | | | | | + + + + + + | Narrative | Performed At | + + + | [facility]RE[facility] CHEST 1 VIEW 10/22/2015 5:26 AM HISTORY: | | | Respiratory failure. TECHNIQUE: One view of the chest | | | FINDINGS: Compared with 10/19/2015. Endotracheal and nasogastric tubes | | | have been removed. A new right IJ central venous catheter has been | | | placed with the tip at the cavoatrial junction. A new left PICC has | | | been placed and its tip in the right atrium. No evidence of a | | | pneumothorax. There are persistent small bilateral pleural effusions. | | | There are persistent bilateral patchy infiltrates, mildly progressive | | | in the right midlung. | | + + + + + | Procedure Note | + + | Elmer, Rad Conversion - 11/01/2018 7:23 PM PDT [facility] CHEST 1 VIEW10/22/2015 | | 5:26 AM HISTORY:Respiratory failure. TECHNIQUE:One view of the chest FINDINGS:Compared | | with 10/19/2015. Endotracheal and nasogastric tubes have been removed. A new right IJ | | central venous catheter has been placed with the tip at the cavoatrial junction. A new | | left PICC has been placed and its tip in the right atrium. No evidence of a | | pneumothorax. There are persistent small bilateral pleural effusions. There are | | persistent bilateral patchy infiltrates, mildly progressive in the right midlung. | | IMPRESSION: 1. Changes to the tubes and lines, as above. No evidence of a | | pneumothorax.2. Patchy bilateral infiltrates, mildly progressive on the right.3. | | Unchanged small bilateral pleural effusions. | |Compared with 10/19/2015. Endotracheal and nasogastric tubes have been removed. A new right I J central venous catheter has been placed with the tip at the cavoatrial junction. A new lef t PICC has been placed and its | |tip in the right atrium. No evidence of | |a pneumothorax. There are persistent small bilateral pleural effusions. There are persisten t bilateral patchy infiltrates, mildly progressive in the right midlung. | | | |IMPRESSION: | |1. Changes to the tubes and lines, as above. No evidence of a pneumothorax. | |2. Patchy bilateral infiltrates, mildly progressive on the right. | |3. Unchanged small bilateral pleural effusions. | | | | | + + Sedimentation rate, automated (10/22/2015 4:04 AM PDT) + + + + + + | Component | Value | Ref Range | Performed | Pathologist | | | | | At | Signature | + + + + + + | Sed Rate | 35 (H)Comment: Testing | 0 - 15 mm/Hr | EXTERNAL | | | | performed at [facility], [address] | LAB | | | | [address], | | | | | | [place] [address] | | | | + + + + + + + + | Specimen | + + | Blood specimen | | (specimen) | + + + +---------+ + + | Performing | Address | City/State/Zipcode | Phone Number | | Organization | | | | + +---------+ + + | EXTERNAL LAB | | | | + +---------+ + + External Lab: CBC (10/22/2015 4:04 AM PDT) + + + + + + | Component | Value | Ref Range | Performed | Pathologist | | | | | At | Signature | + + + + + + | WBC | 9.29Comment: Testing | 3.80 - 11.00 | EXTERNAL | | | | performed at [facility], [address] | K/uL | LAB | | | | [address], | | | | | | [place] [address] | | | | + + + + + + | Non- | 2.85 (L)Comment: Testing | 4.20 - 5.70 | EXTERNAL | | | Red Blood | performed at [facility], [address] | [address]/uL | LAB | | | Cells | [address], | | | | | Counted | [place] [address] | | | | + + + + + + | Hemoglobin | 8.3 (L)Comment: Testing | 13.2 - 17.0 | EXTERNAL | | | | performed at [facility], [address] | g/dL | LAB | | | | [address], | | | | | | [place] [address] | | | | + + + + + + | Hematocrit, | 25.4 (L)Comment: Testing | 39.0 - 50.0 % | EXTERNAL | | | POC | performed at [facility], [address] | | LAB | | | | [address], | | | | | | [place] [address] | | | | + + + + + + | MCV | 88.9Comment: Testing | 80.0 - 100.0 fl | EXTERNAL | | | | performed at [facility], [address] | | LAB | | | | [address], | | | | | | [place] [address] | | | | + + + + + + | MCH | 29.2Comment: Testing | 27.0 - 34.0 pg | EXTERNAL | | | | performed at [facility], [address] | | LAB | | | | [address], | | | | | | [place] [address] | | | | + + + + + + | MCHC | 32.8Comment: Testing | 32.0 - 35.5 | EXTERNAL | | | | performed at [facility], [address] | g/dL | LAB | | | | [address], | | | | | | [place] [address] | | | | + + + + + + | RDW-CV | 51.6Comment: Testing | 37 - 53 fl | EXTERNAL | | | | performed at [facility], [address] | | LAB | | | | [address], | | | | | | [place] [address] | | | | + + + + + + | Platelet | 407 (H)Comment: Testing | 150 - 400 K/uL | EXTERNAL | | | Count | performed at [facility], [address] | | LAB | | | Plasma | [address], | | | | | | [place] [address] | | | | + + + + + + | MPV | 7.4Comment: Testing | fl | EXTERNAL | | | | performed at [facility], [address] | | LAB | | | | [address], | | | | | | [place] [address] | | | | + + + + + + | Differentia | AUTOMATEDComment: | | EXTERNAL | | | l Type | Testing performed at | | LAB | | | | [facility], [address] | | | | | | [place] | | | | | | [address] | | | | + + + + + + | % Segmented | 79.82Comment: Testing | % | EXTERNAL | | | | performed at [facility], [address] | | LAB | | | Neutrophils | [address], | | | | | | [place] [address] | | | | + + + + + + | % | 7.96Comment: Testing | % | EXTERNAL | | | Lymphocytes | performed at [facility], [address] | | LAB | | | | [address], | | | | | | [place] [address] | | | | + + + + + + | % Monocytes | 7.61Comment: Testing | % | EXTERNAL | | | | performed at [facility], [address] | | LAB | | | | [address], | | | | | | [place] [address] | | | | + + + + + + | % | 3.76Comment: Testing | % | EXTERNAL | | | Eosinophils | performed at [facility], [address] | | LAB | | | | [address], | | | | | | [place] [address] | | | | + + + + + + | % Basophils | 0.85Comment: Testing | % | EXTERNAL | | | | performed at [facility], [address] | | LAB | | | | [address], | | | | | | [place] [address] | | | | + + + + + + | Absolute | 7.42 (H)Comment: Testing | 1.90 - 7.40 | EXTERNAL | | | Segmented | performed at [facility], [address] | [address]/u[address] | LAB | | | Neutrophils | [address], | | | | | | [place] [address] | | | | + + + + + + | Absolute | 0.74 (L)Comment: Testing | 1.00 - 3.90 | EXTERNAL | | | Lymphocytes | performed at [facility], [address] | K/uL | LAB | | | | [address], | | | | | | [place] [address] | | | | + + + + + + | Absolute | 0.71Comment: Testing | 0.00 - 0.80 | EXTERNAL | | | Monocytes | performed at [facility], [address] | K/uL | LAB | | | | [address], | | | | | | [place] [address] | | | | + + + + + + | Absolute | 0.35Comment: Testing | 0.00 - 0.50 | EXTERNAL | | | Eosinophils | performed at [facility], [address] | K/uL | LAB | | | | [address], | | | | | | [place] [address] | | | | + + + + + + | Absolute | 0.08Comment: Testing | 0.00 - 0.10 | EXTERNAL | | | Basophils | performed at [facility], [address] | K/uL | LAB | | | | [address], | | | | | | [place] [address] | | | | + + + + + + + + | Specimen | + + | Blood specimen | | (specimen) | + + + +---------+ + + | Performing | Address | City/State/Zipcode | Phone Number | | Organization | | | | + +---------+ + + | EXTERNAL LAB | | | | + +---------+ + + C-Reactive Protein (10/22/2015 4:04 AM PDT) + + + + + + | Component | Value | Ref Range | Performed | Pathologist | | | | | At | Signature | + + + + + + | CRP | 12.5 (H)Comment: Testing | mg/dL | EXTERNAL | | | | performed at [facility], [address] | | LAB | | | | [address], | | | | | | [place] [address] | | | | + + + + + + + + | Specimen | + + | Blood specimen | | (specimen) | + + + +---------+ + + | Performing | Address | City/State/Zipcode | Phone Number | | Organization | | | | + +---------+ + + | EXTERNAL LAB | | | | + +---------+ + + Phosphorus (10/22/2015 4:04 AM PDT) + + + + + + | Component | Value | Ref Range | Performed | Pathologist | | | | | At | Signature | + + + + + + | PHOSPHORUS | 4.2Comment: Testing | 2.3 - 4.8 mg/dL | EXTERNAL | | | | performed at [facility], [address] | | LAB | | | | [address], | | | | | | [place] [address] | | | | + + + + + + + + | Specimen | + + | Blood specimen | | (specimen) | + + + +---------+ + + | Performing | Address | City/State/Zipcode | Phone Number | | Organization | | | | + +---------+ + + | EXTERNAL LAB | | | | + +---------+ + + Magnesium (10/22/2015 4:04 AM PDT) + + + + + + | Component | Value | Ref Range | Performed | Pathologist | | | | | At | Signature | + + + + + + | Magnesium | 1.7Comment: Testing | 1.7 - 2.4 mg/dL | EXTERNAL | | | | performed at [facility], [address] | | LAB | | | | [address], | | | | | | [place] [address] | | | | + + + + + + + + | Specimen | + + | Blood specimen | | (specimen) | + + + +---------+ + + | Performing | Address | City/State/Zipcode | Phone Number | | Organization | | | | + +---------+ + + | EXTERNAL LAB | | | | + +---------+ + + Hepatic Function Panel (10/22/2015 4:04 AM PDT) + + + + + + | Component | Value | Ref Range | Performed | Pathologist | | | | | At | Signature | + + + + + + | Protein, | 5.8 (L)Comment: Testing | 6.3 - 8.2 g/dL | EXTERNAL | | | Total | performed at [facility], [address] | | LAB | | | | [address], | | | | | | [place] [address] | | | | + + + + + + | Albumin | 1.2 (L)Comment: Testing | 3.6 - 5.0 g/dL | EXTERNAL | | | | performed at [facility], [address] | | LAB | | | | [address], | | | | | | [place] [address] | | | | + + + + + + | Bilirubin | 1.5Comment: Testing | 0.1 - 1.5 mg/dL | EXTERNAL | | | Total | performed at [facility], [address] | | LAB | | | | [address], | | | | | | [place] [address] | | | | + + + + + + | Bilirubin | 0.4 (H)Comment: Testing | 0.0 - 0.3 mg/dL | EXTERNAL | | | Direct | performed at [facility], [address] | | LAB | | | | [address], | | | | | | [place] [address] | | | | + + + + + + | ALP, | 67Comment: Testing | 35 - 115 U/L | EXTERNAL | | | External | performed at [facility], [address] | | LAB | | | | [address], | | | | | | [place] [address] | | | | + + + + + + | AST | 22Comment: Testing | 10 - 45 U/L | EXTERNAL | | | | performed at [facility], [address] | | LAB | | | | [address], | | | | | | [place] [address] | | | | + + + + + + | ALT | 18Comment: Testing | 10 - 65 U/L | EXTERNAL | | | | performed at [facility], [address] | | LAB | | | | [address], | | | | | | [place] [address] | | | | + + + + + + + + | Specimen | + + | | + + + +---------+ + + | Performing | Address | City/State/Zipcode | Phone Number | | Organization | | | | + +---------+ + + | EXTERNAL LAB | | | | + +---------+ + + Basic Metabolic Panel (10/22/2015 4:04 AM PDT) + + + + + + | Component | Value | Ref Range | Performed | Pathologist | | | | | At | Signature | + + + + + + | Na | 140Comment: Testing | 135 - 145 | EXTERNAL | | | | performed at [facility], [address] | mmol/L | LAB | | | | [address], | | | | | | [place] [address] | | | | + + + + + + | K | 3.5Comment: Testing | 3.5 - 4.9 | EXTERNAL | | | | performed at [facility], [address] | mmol/L | LAB | | | | [address], | | | | | | [place] [address] | | | | + + + + + + | Cl | 106Comment: Testing | 99 - 109 mmol/L | EXTERNAL | | | | performed at [facility], [address] | | LAB | | | [address], | | | | | | [place] [address] | | | | + + + + + + | CO2 | 20 (L)Comment: Testing | 23 - 32 mmol/L | EXTERNAL | | | | performed at [facility], [address] | | LAB | | | | [address], | | | | | | [place] [address] | | | | + + + + + + | Anion Gap | 18Comment: Testing | 5 - 20 mmol/L | EXTERNAL | | | | performed at [facility], [address] | | LAB | | | | [address], | | | | | | [place] [address] | | | | + + + + + + | Glucose, | 91Comment: Testing | 65 - 99 mg/dL | EXTERNAL | | | Fasting | performed at [facility], [address] | | LAB | | | | [address], | | | | | | [place] [address] | | | | + + + + + + | BUN | 24Comment: Testing | 8 - 25 mg/dL | EXTERNAL | | | | performed at [facility], [address] | | LAB | | | | [address], | | | | | | [place] [address] | | | | + + + + + + | Creatinine | 2.1 (H)Comment: Testing | 0.70 - 1.30 | EXTERNAL | | | | performed at [facility], [address] | mg/dL | LAB | | | | [address], | | | | | | [place] [address] | | | | + + + + + + | BUN/Creatin | 11Comment: Testing | | EXTERNAL | | | ine Ratio | performed at [facility], [address] | | LAB | | | | [address], | | | | | | [place] [address] | | | | + + + + + + | Calcium | 7.7 (L)Comment: Testing | 8.5 - 10.5 | EXTERNAL | | | | performed at [facility], [address] | mg/dL | LAB | | | | [address], | | | | | | [place] [address] | | | | + + + + + + | Estimated | 39 (L)Comment: GFR <60: | mL/min/1.73m2 | EXTERNAL | | | GFR | CHRONIC KIDNEY DISEASE, | | LAB | | | | IF FOUND OVER A 3 MONTH | | | | | | PERIOD.GFR <15: KIDNEY | | | | | | FAILURE.FOR | | | | | | AMERICANS, MULTIPLY THE | | | | | | CALCULATED GFR BY | | | | | | 1.210.Testing performed | | | | | | at [facility], [address] | | | | | | [address], | | | | | | [place] [address] | | | | + + + + + + + + | Specimen | + + | Blood specimen | | (specimen) | + + + +---------+ + + | Performing | Address | City/State/Zipcode | Phone Number | | Organization | | | | + +---------+ + + | EXTERNAL LAB | | | | + +---------+ + + IR Placement Tunneled CV Cath (10/21/2015 5:48 PM PDT) + + | Specimen | + + | | + + + + + | Impressions | Performed At | + + + | Uneventful placement of a 14.5 Luxembourger, 23 cm tip-to-cuff length, | | | Palindrome tunneled hemodialysis catheter as described above. | | | | | + + + + + + | Narrative | Performed At | + + + | CLINICAL DATA: 30-year-old man with renal failure. Patient needs | | | long-term hemodialysis catheter. PROCEDURES PERFORMED: 1. IR | | | DIALYSIS TUNNELED CATHETER INSERTION 2. RIGHT-SIDED CATHETER REMOVAL | | | HEEL CUTTER: Femi Vaughan MD CONSENT: The risks, benefits and | | | alternatives of the procedure were discussed with the patient's | | | sister. Signed consent was given as witnessed by nursing staff. | | | SEDATION: Moderate conscious sedation was administered during the | | | procedure by the physician and nursing staff with continuous | | | hemodynamic monitoring throughout the procedure. ANTIBIOTIC | | | PROPHYLAXIS: none CONTRAST: none FLUOROSCOPY TIME: minimal | | | TECHNIQUE: The right neck and upper chest were prepped and draped in | | | sterile fashion. Local anesthesia administered with 1% lidocaine. | | | Under ultrasound guidance, the right internal jugular vein was | | | accessed with a 21-gauge micropuncture needle. A single spot | | | sonographic image was obtained and stored for documentation. A | | | guidewire was advanced centrally and a measurement taken for tunneled | | | hemodialysis catheter length. Next, a guidewire was then advanced into | | | the IVC. A subcutaneous tunnel was then created from an | | | infraclavicular location within the right upper anterior chest. A 14.5 | | | Luxembourger, 23 cm tip-to-cuff length, Palindrome tunneled hemodialysis | | | catheter was then advanced from the subcutaneous tunnel entry site to | | | the venotomy with the aid of a metal tunneler. Over a guidewire, | | | serial dilatation of the venotomy was performed. The hemodialysis | | | catheter was then delivered centrally with the aid of a peel-away | | | sheath. Final fluoroscopic spot image was obtained confirming | | | catheter tip positioned within the mid right atrium. The venotomy | | | was then closed with a combination of 4-0 subcuticular Vicryl suture | | | and Dermabond. The catheter was secured the patient's skin. Both | | | lumens demonstrate good bidirectional flow. Both catheter lumens were | | | then locked with heparin. Patient tolerated procedure well. No | | | immediate complications. RIGHT-SIDED CATHETER REMOVAL: The skin | | | surrounding the existing right-sided temporary hemodialysis catheter | | | was prepped and draped in sterile fashion. Local anesthesia | | | administered with 1% lidocaine. The sutures were cut and the temporary | | | hemodialysis catheter was removed in its entirety. The venotomy | | | site was closed using purse string suture. FINDINGS: Ultrasound | | | evaluation demonstrates a patent right internal jugular vein. | | | Final fluoroscopic spot image demonstrates the right-sided tunneled | | | hemodialysis catheter positioned with the tip in the mid right atrium. | | | EBL: Minimal. COMPLICATIONS: None. | | + + + + + | Procedure Note | + + | Erasmo Payne Conversion - 11/01/2018 7:23 PM PDT CLINICAL DATA: 30-year-old man with | | renal failure. Patient needs long-term hemodialysis catheter. PROCEDURES PERFORMED:1. IR | | DIALYSIS TUNNELED CATHETER INSERTION2. RIGHT-SIDED CATHETER REMOVAL HEEL CUTTER: Femi Diez | | MD Alexus CONSENT: The risks, benefits and alternatives of the procedure were discussed | | with the patient's sister. Signed consent was given as witnessed by nursing staff. | | SEDATION: Moderate conscious sedation was administered during the procedure by the | | physician and nursing staff with continuous hemodynamic monitoring throughout the | | procedure. ANTIBIOTIC PROPHYLAXIS: none CONTRAST: none FLUOROSCOPY TIME: minimal | | TECHNIQUE:The right neck and upper chest were prepped and draped in sterile fashion. | | Local anesthesia administered with 1% lidocaine. Under ultrasound guidance, the right | | internal jugular vein was accessed with a 21-gauge micropuncture needle. A single spot | | sonographic image was obtained and stored for documentation. A guidewire was advanced | | centrally and a measurement taken for tunneled hemodialysis catheter length. Next, a | | guidewire was then advanced into the IVC. A subcutaneous tunnel was then created from an | | infraclavicular location within the right upper anterior chest. A 14.5 Luxembourger, 23 cm | | tip-to-cuff length, Palindrome tunneled hemodialysis catheter was then advanced from the | | subcutaneous tunnel entry site to the venotomy with the aid of a metal tunneler. Over a | | guidewire, serial dilatation of the venotomy was performed. The hemodialysis catheter | | was then delivered centrally with the aid of a peel-away sheath. Final fluoroscopic spot | | image was obtained confirming catheter tip positioned within the mid right atrium. The | | venotomy was then closed with a combination of 4-0 subcuticular Vicryl suture and | | Dermabond. The catheter was secured the patient's skin. Both lumens demonstrate good | | bidirectional flow. Both catheter lumens were then locked with heparin. Patient | | tolerated procedure well. No immediate complications. RIGHT-SIDED CATHETER REMOVAL:The | | skin surrounding the existing right-sided temporary hemodialysis catheter was prepped | | and draped in sterile fashion. Local anesthesia administered with 1% lidocaine. The | | sutures were cut and the temporary hemodialysis catheter was removed in its entirety. | | The venotomy site was closed using purse string suture. FINDINGS:Ultrasound evaluation | | demonstrates a patent right internal jugular vein. Final fluoroscopic spot image | | demonstrates the right-sided tunneled hemodialysis catheter positioned with the tip in | | the mid right atrium. EBL: Minimal. COMPLICATIONS: None. IMPRESSION: Uneventful | | placement of a 14.5 Luxembourger, 23 cm tip-to-cuff length, Palindrome tunneled hemodialysis | | catheter as described above. | |The venotomy was then closed with a combination of 4-0 subcuticular Vicryl suture and [place] smith. | | | |The catheter was secured the patient's skin. Both lumens demonstrate good bidirectional rayna w. Both catheter lumens were then locked with heparin. | | | |Patient tolerated procedure well. No immediate complications. | | | |RIGHT-SIDED CATHETER REMOVAL: | |The skin surrounding the existing right-sided temporary hemodialysis catheter was prepped a nd draped in sterile fashion. Local anesthesia administered with 1% lidocaine. The sutures w ere cut and the temporary hemodialysis catheter was removed in its | |entirety. The venotomy site was closed using purse string suture. | | | |FINDINGS: | |Ultrasound evaluation demonstrates a patent right internal jugular vein. | | | |Final fluoroscopic spot image demonstrates the right-sided tunneled hemodialysis catheter p ositioned with the tip in the mid right atrium. | | | |EBL: Minimal. | | | |COMPLICATIONS: None. | | | |IMPRESSION: | |Uneventful placement of a 14.5 Luxembourger, 23 cm tip-to-cuff length, Palindrome tunneled hemodi alysis catheter as described above. | | | | | + + Type and Screen (10/21/2015 8:09 AM PDT) + + + + + + | Component | Value | Ref Range | Performed | Pathologist | | | | | At | Signature | + + + + + + | ABO Rh | O POSITIVE | | EXTERNAL | | | | | | LAB | | + + + + + + | Antibody | NEGATIVE | | EXTERNAL | | | Screen | | | LAB | | + + + + + + | BB BAND | [id number] | | EXTERNAL | | | | | | LAB | | + + + + + + | UNIT NUMBER | [id number] | | EXTERNAL | | | | | | LAB | | + + + + + + | UNIT NUMBER | Testing performed at | | EXTERNAL | | | | [facility];[address] | | LAB | | | [address];[place] [address] | | | | + + + + + + | Product | LEUKODEPLETED PCTesting | | EXTERNAL | | | Code | performed at [facility];[address] | | LAB | | | [address];[place] | | | | | | [address] | | | | + + + + + + | Unit | 00Testing performed at | | EXTERNAL | | | Division | [facility];[address] | | LAB | | | | [address];[place] [address] | | | | + + + + + + | Unit Status | ISSUED,FINALTesting | | EXTERNAL | | | | performed at [facility];[address] | | LAB | | | [address];[place] | | | | | | [address] | | | | + + + + + + | Transfusion | OK TO TRANSFUSETesting | | EXTERNAL | | | Status | performed at [facility];[address] | | LAB | | | [address];[place] | | | | | | [address] | | | | + + + + + + | CROSSMATCH | COMPATIBLETesting | | EXTERNAL | | | RESULT | performed at [facility];[address] | | LAB | | | [address];[place] | | | | | | [address] | | | | + + + + + + + + | Specimen | + + | Blood specimen | | (specimen) | + + + +---------+ + + | Performing | Address | City/State/Zipcode | Phone Number | | Organization | | | | + +---------+ + + | EXTERNAL LAB | | | | + +---------+ + + External Lab: CBC (10/21/2015 3:58 AM PDT) + + + + + + | Component | Value | Ref Range | Performed | Pathologist | | | | | At | Signature | + + + + + + | WBC | 7.96Comment: Testing | 3.80 - 11.00 | EXTERNAL | | | | performed at [facility], [address] | K/uL | LAB | | | | [address], | | | | | | [place] [address] | | | | + + + + + + | Non- | 2.40 (L)Comment: Testing | 4.20 - 5.70 | EXTERNAL | | | Red Blood | performed at [facility], [address] | M/uL | LAB | | | Cells | [address] [facility] [address], | | | | | Counted | [place] [address] | | | | + + + + + + | Hemoglobin | 6.9 (LL)Comment: RESULT | 13.2 - 17.0 | EXTERNAL | | | | READ BACK BY: LEE CHARLTON | g/dL | LAB | | | | ICU AT 0532 ON | | | | | | 10/21/2015 TH Testing | | | | | | performed at [facility], [address] | | | | | | [facility] [address], | | | | | | [place] [address] | | | | + + + + + + | Hematocrit, | 21.3 (L)Comment: Testing | 39.0 - 50.0 % | EXTERNAL | | | POC | performed at [facility], [address] | | LAB | | | | [address], | | | | | | [place] [address] | | | | + + + + + + | MCV | 89.1Comment: Testing | 80.0 - 100.0 fl | EXTERNAL | | | | performed at [facility], [address] | | LAB | | | | [address], | | | | | | [place] [address] | | | | + + + + + + | MCH | 28.8Comment: Testing | 27.0 - 34.0 pg | EXTERNAL | | | | performed at [facility], [address] | | LAB | | | | [address], | | | | | | [place] [address] | | | | + + + + + + | MCHC | 32.3Comment: Testing | 32.0 - 35.5 | EXTERNAL | | | | performed at [facility], [address] | g/dL | LAB | | | | [address], | | | | | | [place] [address] | | | | + + + + + + | RDW-CV | 53.4 (H)Comment: Testing | 37 - 53 fl | EXTERNAL | | | | performed at [facility], [address] | | LAB | | | | [address], | | | | | | [place] [address] | | | | + + + + + + | Platelet | 323Comment: Testing | 150 - 400 K/uL | EXTERNAL | | | Count | performed at [facility], [address] | | LAB | | | Plasma | [address], | | | | | | [place] [address] | | | | + + + + + + | MPV | 7.5Comment: Testing | fl | EXTERNAL | | | | performed at [facility], [address] | | LAB | | | | [address], | | | | | | [place] [address] | | | | + + + + + + | Differentia | AUTOMATEDComment: | | EXTERNAL | | | l Type | Testing performed at | | LAB | | | | [facility], [address] | | | | | | [place] | | | | | | [address] | | | | + + + + + + | % Segmented | 75.08Comment: Testing | % | EXTERNAL | | | | performed at [facility], [address] | | LAB | | | Neutrophils | [address], | | | | | | [place] [address] | | | | + + + + + + | % | 9.68Comment: Testing | % | EXTERNAL | | | Lymphocytes | performed at [facility], [address] | | LAB | | | | [address], | | | | | | [place] [address] | | | | + + + + + + | % Monocytes | 9.34Comment: Testing | % | EXTERNAL | | | | performed at [facility], [address] | | LAB | | | | [address], | | | | | | [place] [address] | | | | + + + + + + | % | 5.10Comment: Testing | % | EXTERNAL | | | Eosinophils | performed at [facility], [address] | | LAB | | | | [address], | | | | | | [place] [address] | | | | + + + + + + | % Basophils | 0.80Comment: Testing | % | EXTERNAL | | | | performed at [facility], [address] | | LAB | | | | [address], | | | | | | [place] [address] | | | | + + + + + + | Absolute | 5.97Comment: Testing | 1.90 - 7.40 | EXTERNAL | | | Segmented | performed at [facility], [address] | K/uL | LAB | | | Neutrophils | [address], | | | | | | [place] [address] | | | | + + + + + + | Absolute | 0.77 (L)Comment: Testing | 1.00 - 3.90 | EXTERNAL | | | Lymphocytes | performed at [facility], [address] | [address] | LAB | | | | [address], | | | | | | [place] [address] | | | | + + + + + + | Absolute | 0.74Comment: Testing | 0.00 - 0.80 | EXTERNAL | | | Monocytes | performed at [facility], [address] | K[address] | LAB | | | | [address], | | | | | | [place] [address] | | | | + + + + + + | Absolute | 0.41Comment: Testing | 0.00 - 0.50 | EXTERNAL | | | Eosinophils | performed at [facility], [address] | [address] | LAB | | | | [address], | | | | | | [place] [address] | | | | + + + + + + | Absolute | 0.06Comment: Testing | 0.00 - 0.10 | EXTERNAL | | | Basophils | performed at [facility], [address] | K/uL | LAB | | | | [address], | | | | | | [place] [address] | | | | + + + + + + + + | Specimen | + + | Blood specimen | | (specimen) | + + + +---------+ + + | Performing | Address | City/State/Zipcode | Phone Number | | Organization | | | | + +---------+ + + | EXTERNAL LAB | | | | + +---------+ + + Triglycerides (10/21/2015 3:58 AM PDT) + + + + + + | Component | Value | Ref Range | Performed | Pathologist | | | | | At | Signature | + + + + + + | Triglycerid | 251 (H)Comment: Testing | mg/dL | EXTERNAL | | | es | performed at [facility], [address] | | LAB | | | | [address], | | | | | | [place] [address] | | | | + + + + + + + + | Specimen | + + | Blood specimen | | (specimen) | + + + +---------+ + + | Performing | Address | City/State/Zipcode | Phone Number | | Organization | | | | + +---------+ + + | EXTERNAL LAB | | | | + +---------+ + + Phosphorus (10/21/2015 3:58 AM PDT) + + + + + + | Component | Value | Ref Range | Performed | Pathologist | | | | | At | Signature | + + + + + + | PHOSPHORUS | 7.7 (H)Comment: Testing | 2.3 - 4.8 mg/dL | EXTERNAL | | | | performed at [facility], [address] | | LAB | | | | [address], | | | | | | [place] [address] | | | | + + + + + + + + | Specimen | + + | Blood specimen | | (specimen) | + + + +---------+ + + | Performing | Address | City/State/Zipcode | Phone Number | | Organization | | | | + +---------+ + + | EXTERNAL LAB | | | | + +---------+ + + Magnesium (10/21/2015 3:58 AM PDT) + + + + + + | Component | Value | Ref Range | Performed | Pathologist | | | | | At | Signature | + + + + + + | Magnesium | 1.8Comment: Testing | 1.7 - 2.4 mg/dL | EXTERNAL | | | | performed at [facility], [address] | | LAB | | | | [address], | | | | | | [place] [address] | | | | + + + + + + + + | Specimen | + + | Blood specimen | | (specimen) | + + + +---------+ + + | Performing | Address | City/State/Zipcode | Phone Number | | Organization | | | | + +---------+ + + | EXTERNAL LAB | | | | + +---------+ + + Hepatic Function Panel (10/21/2015 3:58 AM PDT) + + + + + + | Component | Value | Ref Range | Performed | Pathologist | | | | | At | Signature | + + + + + + | Protein, | 5.7 (L)Comment: Testing | 6.3 - 8.2 g/dL | EXTERNAL | | | Total | performed at [facility], [address] | | LAB | | | | [address], | | | | | | [place] [address] | | | | + + + + + + | Albumin | 1.2 (L)Comment: Testing | 3.6 - 5.0 g/dL | EXTERNAL | | | | performed at [facility], [address] | | LAB | | | | [address], | | | | | | [place] [address] | | | | + + + + + + | Bilirubin | 1.7 (H)Comment: Testing | 0.1 - 1.5 mg/dL | EXTERNAL | | | Total | performed at [facility], [address] | | LAB | | | | [address], | | | | | | [place] [address] | | | | + + + + + + | Bilirubin | 0.5 (H)Comment: Testing | 0.0 - 0.3 mg/dL | EXTERNAL | | | Direct | performed at [facility], [address] | | LAB | | | | [address], | | | | | | [place] [address] | | | | + + + + + + | ALP, | 66Comment: Testing | 35 - 115 U/L | EXTERNAL | | | External | performed at [facility], [address] | | LAB | | | | [address], | | | | | | [place] [address] | | | | + + + + + + | AST | 20Comment: Testing | 10 - 45 U/L | EXTERNAL | | | | performed at [facility], [address] | | LAB | | | | [address], | | | | | | [place] [address] | | | | + + + + + + | ALT | 20Comment: Testing | 10 - 65 U/L | EXTERNAL | | | | performed at [facility], [address] | | LAB | | | | [address], | | | | | | [place] [address] | | | | + + + + + + + + | Specimen | + + | | + + + +---------+ + + | Performing | Address | City/State/Zipcode | Phone Number | | Organization | | | | + +---------+ + + | EXTERNAL LAB | | | | + +---------+ + + Basic Metabolic Panel (10/21/2015 3:58 AM PDT) + + + + + + | Component | Value | Ref Range | Performed | Pathologist | | | | | At | Signature | + + + + + + | Na | 137Comment: Testing | 135 - 145 | EXTERNAL | | | | performed at [facility], [address] | mmol/L | LAB | | | | [address], | | | | | | [place] [address] | | | | + + + + + + | K | 3.6Comment: Testing | 3.5 - 4.9 | EXTERNAL | | | | performed at [facility], [address] | mmol/L | LAB | | | | [address], | | | | | | [place] [address] | | | | + + + + + + | Cl | 102Comment: Testing | 99 - 109 mmol/L | EXTERNAL | | | | performed at [facility], [address] | | LAB | | | | [address], | | | | | | [place] [address] | | | | + + + + + + | CO2 | 20 (L)Comment: Testing | 23 - 32 mmol/L | EXTERNAL | | | | performed at [facility], [address] | | LAB | | | | [address], | | | | | | [place] [address] | | | | + + + + + + | Anion Gap | 19Comment: Testing | 5 - 20 mmol/L | EXTERNAL | | | | performed at [facility], [address] | | LAB | | | | [address], | | | | | | [place] [address] | | | | + + + + + + | Glucose, | 104 (H)Comment: Testing | 65 - 99 mg/dL | EXTERNAL | | | Fasting | performed at [facility], [address] | | LAB | | | | [address], | | | | | | [place] [address] | | | | + + + + + + | BUN | 38 (H)Comment: Testing | 8 - 25 mg/dL | EXTERNAL | | | | performed at [facility], [address] | | LAB | | | | [address], | | | | | | [place] [address] | | | | + + + + + + | Creatinine | 3.0 (H)Comment: Testing | 0.70 - 1.30 | EXTERNAL | | | | performed at [facility], [address] | mg/dL | LAB | | | | [address], | | | | | | [place] [address] | | | | + + + + + + | BUN/Creatin | 13Comment: Testing | | EXTERNAL | | | ine Ratio | performed at [facility], [address] | | LAB | | | | [address], | | | | | | [place] [address] | | | | + + + + + + | Calcium | 7.6 (L)Comment: Testing | 8.5 - 10.5 | EXTERNAL | | | | performed at [facility], [address] | mg/dL | LAB | | | | [address], | | | | | | [place] [address] | | | | + + + + + + | Estimated | 26 (L)Comment: GFR <60: | mL/min/1.73m2 | EXTERNAL | | | GFR | CHRONIC KIDNEY DISEASE, | | LAB | | | | IF FOUND OVER A 3 MONTH | | | | | | PERIOD.GFR <15: KIDNEY | | | | | | FAILURE.FOR | | | | | | AMERICANS, MULTIPLY THE | | | | | | CALCULATED GFR BY | | | | | | 1.210.Testing performed | | | | | | at [facility], [address] | | | | | | [address], | | | | | | [place] [address] | | | | + + + + + + + + | Specimen | + + | Blood specimen | | (specimen) | + + + +---------+ + + | Performing | Address | City/State/Zipcode | Phone Number | | Organization | | | | + +---------+ + + | EXTERNAL LAB | | | | + +---------+ + + CT Guided Biopsy Renal (10/20/2015 2:23 PM PDT) + + | Specimen | + + | | + + + + + | Impressions | Performed At | + + + | 1. Successful biopsy of the inferior pole of the left kidney. No | | | complications. Electronically signed by Charles Lima MD on | | | 10/20/2015 4:34 PM | | + + + + + + | Narrative | Performed At | + + + | HISTORY: Multidrug abuse, with septic cardiac valve, septicemia, | | | multiorgan failure, now improving, but with persistent anuria. | | | COMPARISON: CT abdomen and pelvis 10/19/15. TECHNIQUE: Consent | | | was obtained over the phone from the patient's sister Carly Carter. | | | Intended biopsy of the inferior pole of the LEFT kidney with possible | | | complications of postbiopsy bleeding, infection, with rare incidence | | | of arteriovenous fistula were described over the phone. Informed | | | consent was obtained, verified over the phone by the attending nurse. | | | The area was marked prior to initiation of procedure. FINDINGS: | | | Patient was placed [id number] on the CT table. Sedation was | | | provided by anesthesia. Skin over the inferior pole of the left kidney | | | was marked, prepped, draped in usual sterile fashion. Skin, | | | subcutaneous, and deep tissues were anesthetized using 1% lidocaine | | | buffered with bicarbonate. Under sterile CT guidance, a 17-gauge | | | introducer was advanced into the inferior pole of the left kidney. 4 | | | cores measuring 2.2 cm in length, 18-gauge were obtained, and reviewed | | | real-time by Dr. Smith, and deemed adequate. Initial minimal oozing | | | from the hub of the needle ceased. Surgicel slurry was injected | | | through the hub of the needle as a precaution. Needle was removed. | | | Postbiopsy images are unremarkable. | | + + + + + | Procedure Note | + + | Elmer, Rad Conversion - 11/01/2018 7:23 PM PDT HISTORY:Multidrug abuse, with septic | | cardiac valve, septicemia, multiorgan failure, now improving, but with persistent | | anuria. COMPARISON:CT abdomen and pelvis 10/19/15. TECHNIQUE:Consent was obtained over | | the phone from the patient's sister Carly Carter. Intended biopsy of the inferior pole of | | the LEFT kidney with possible complications of postbiopsy bleeding, infection, with | | rare incidence of arteriovenous fistula were described over the phone. Informed consent | | was obtained, verified over the phone by the attending nurse. The area was marked prior | | to initiation of procedure. FINDINGS:Patient was placed [id number] on the CT table. | | Sedation was provided by anesthesia. Skin over the inferior pole of the left kidney was | | marked, prepped, draped in usual sterile fashion. Skin, subcutaneous, and deep tissues | | were anesthetized using 1% lidocaine buffered with bicarbonate. Under sterile CT | | guidance, a 17-gauge introducer was advanced into the inferior pole of the left kidney. | | 4 cores measuring 2.2 cm in length, 18-gauge were obtained, and reviewed real-time by | | Dr. Smith, and deemed adequate. Initial minimal oozing from the hub of the needle | | ceased. Surgicel slurry was injected through the hub of the needle as a precaution. | | Needle was removed. Postbiopsy images are unremarkable. IMPRESSION: 1. Successful | | biopsy of the inferior pole of the left kidney. No complications. | | | |IMPRESSION: | |1. Successful biopsy of the inferior pole of the left kidney. No complications. | | | | | + + External Lab: DEON (10/20/2015 4:58 AM PDT) + + + + + + | Component | Value | Ref Range | Performed | Pathologist | | | | | At | Signature | + + + + + + | WBC | 10.26Comment: Testing | 3.80 - 11.00 | EXTERNAL | | | | performed at [facility], [address] | K[address]L | LAB | | | | [address], | | | | | | [place] [address] | | | | + + + + + + | Non- | 2.68 (L)Comment: Testing | 4.20 - 5.70 | EXTERNAL | | | Red Blood | performed at [facility], [address] | [address] | LAB | | | Cells | [address], | | | | | Counted | [place] [address] | | | | + + + + + + | Hemoglobin | 7.8 (L)Comment: Testing | 13.2 - 17.0 | EXTERNAL | | | | performed at [facility], [address] | g/dL | LAB | | | | [address], | | | | | | [place] [address] | | | | + + + + + + | Hematocrit, | 23.7 (L)Comment: Testing | 39.0 - 50.0 % | EXTERNAL | | | POC | performed at [facility], [address] | | LAB | | | | [address], | | | | | | [place] [address] | | | | + + + + + + | MCV | 88.4Comment: Testing | 80.0 - 100.0 fl | EXTERNAL | | | | performed at [facility], [address] | | LAB | | | | [address], | | | | | | [place] [address] | | | | + + + + + + | MCH | 29.1Comment: Testing | 27.0 - 34.0 pg | EXTERNAL | | | | performed at [facility], [address] | | LAB | | | | [address], | | | | | | [place] [address] | | | | + + + + + + | MCHC | 32.9Comment: Testing | 32.0 - 35.5 | EXTERNAL | | | | performed at [facility], [address] | g/dL | LAB | | | | [address], | | | | | | [place], [place] [address] | | | | + + + + + + | RDW-CV | 54.3 (H)Comment: Testing | 37 - 53 fl | EXTERNAL | | | | performed at [facility], [address] | | LAB | | | | [address], | | | | | | [place] [address] | | | | + + + + + + | Platelet | 291Comment: Testing | 150 - 400 K/uL | EXTERNAL | | | Count | performed at [facility], [address] | | LAB | | | Plasma | [address], | | | | | | [place] [address] | | | | + + + + + + | MPV | 7.9Comment: Testing | fl | EXTERNAL | | | | performed at [facility], [address] | | LAB | | | | [address], | | | | | | [place] [address] | | | | + + + + + + | Differentia | AUTOMATEDComment: | | EXTERNAL | | | l Type | Testing performed at | | LAB | | | | [facility], [address] | | | | | | [place] | | | | | | [address] | | | | + + + + + + | % Segmented | 82.36Comment: Testing | % | EXTERNAL | | | | performed at [facility], [address] | | LAB | | | Neutrophils | [address], | | | | | | [place] [address] | | | | + + + + + + | % | 6.24Comment: Testing | % | EXTERNAL | | | Lymphocytes | performed at [facility], [address] | | LAB | | | | [address], | | | | | | [place] [address] | | | | + + + + + + | % Monocytes | 7.58Comment: Testing | % | EXTERNAL | | | | performed at [facility], [address] | | LAB | | | | [address], | | | | | | [place] [address] | | | | + + + + + + | % | 3.13Comment: Testing | % | EXTERNAL | | | Eosinophils | performed at [facility], [address] | | LAB | | | | [address], | | | | | | [place] [address] | | | | + + + + + + | % Basophils | 0.69Comment: Testing | % | EXTERNAL | | | | performed at [facility], [address] | | LAB | | | | [address], | | | | | | [place] [address] | | | | + + + + + + | Absolute | 8.45 (H)Comment: Testing | 1.90 - 7.40 | EXTERNAL | | | Segmented | performed at [facility], [address] | K/uL | LAB | | | Neutrophils | [address], | | | | | | [place] [address] | | | | + + + + + + | Absolute | 0.64 (L)Comment: Testing | 1.00 - 3.90 | EXTERNAL | | | Lymphocytes | performed at [facility], [address] | [address] | LAB | | | | [address], | | | | | | [place] [address] | | | | + + + + + + | Absolute | 0.78Comment: Testing | 0.00 - 0.80 | EXTERNAL | | | Monocytes | performed at [facility], [address] | K/uL | LAB | | | | [address], | | | | | | [place] [address] | | | | + + + + + + | Absolute | 0.32Comment: Testing | 0.00 - 0.50 | EXTERNAL | | | Eosinophils | performed at [facility], [address] | K/uL | LAB | | | | [address], | | | | | | [place] [address] | | | | + + + + + + | Absolute | 0.07Comment: Testing | 0.00 - 0.10 | EXTERNAL | | | Basophils | performed at [facility], [address] | K/uL | LAB | | | | [address], | | | | | | [place] [address] | | | | + + + + + + + + | Specimen | + + | Blood specimen | | (specimen) | + + + +---------+ + + | Performing | Address | City/State/Zipcode | Phone Number | | Organization | | | | + +---------+ + + | EXTERNAL LAB | | | | + +---------+ + + Phosphorus (10/20/2015 4:58 AM PDT) + + + + + + | Component | Value | Ref Range | Performed | Pathologist | | | | | At | Signature | + + + + + + | PHOSPHORUS | 5.1 (H)Comment: Testing | 2.3 - 4.8 mg/dL | EXTERNAL | | | | performed at [facility], [address] | | LAB | | | | [address], | | | | | | [place] [address] | | | | + + + + + + + + | Specimen | + + | Blood specimen | | (specimen) | + + + +---------+ + + | Performing | Address | City/State/Zipcode | Phone Number | | Organization | | | | + +---------+ + + | EXTERNAL LAB | | | | + +---------+ + + Magnesium (10/20/2015 4:58 AM PDT) + + + + + + | Component | Value | Ref Range | Performed | Pathologist | | | | | At | Signature | + + + + + + | Magnesium | 2.0Comment: Testing | 1.7 - 2.4 mg/dL | EXTERNAL | | | | performed at [facility], [address] | | LAB | | | | [address], | | | | | | [place] [address] | | | | + + + + + + + + | Specimen | + + | Blood specimen | | (specimen) | + + + +---------+ + + | Performing | Address | City/State/Zipcode | Phone Number | | Organization | | | | + +---------+ + + | EXTERNAL LAB | | | | + +---------+ + + Hepatic Function Panel (10/20/2015 4:58 AM PDT) + + + + + + | Component | Value | Ref Range | Performed | Pathologist | | | | | At | Signature | + + + + + + | Protein, | 5.8 (L)Comment: Testing | 6.3 - 8.2 g/dL | EXTERNAL | | | Total | performed at [facility], [address] | | LAB | | | | [address], | | | | | | [place] [address] | | | | + + + + + + | Albumin | 1.3 (L)Comment: Testing | 3.6 - 5.0 g/dL | EXTERNAL | | | | performed at [facility], [address] | | LAB | | | | [address], | | | | | | [place] [address] | | | | + + + + + + | Bilirubin | 1.3Comment: Testing | 0.1 - 1.5 mg/dL | EXTERNAL | | | Total | performed at [facility], [address] | | LAB | | | | [address], | | | | | | [place] [address] | | | | + + + + + + | Bilirubin | 0.4 (H)Comment: Testing | 0.0 - 0.3 mg/dL | EXTERNAL | | | Direct | performed at [facility], [address] | | LAB | | | | [address], | | | | | | [place] [address] | | | | + + + + + + | ALP, | 72Comment: Testing | 35 - 115 U/L | EXTERNAL | | | External | performed at [facility], [address] | | LAB | | | | [address], | | | | | | [place] [address] | | | | + + + + + + | AST | 24Comment: Testing | 10 - 45 U/L | EXTERNAL | | | | performed at [facility], [address] | | LAB | | | | [address], | | | | | | [place] [address] | | | | + + + + + + | ALT | 20Comment: Testing | 10 - 65 U/L | EXTERNAL | | | | performed at [facility], [address] | | LAB | | | | [address], | | | | | | [place] [address] | | | | + + + + + + + + | Specimen | + + | | + + + +---------+ + + | Performing | Address | City/State/Zipcode | Phone Number | | Organization | | | | + +---------+ + + | EXTERNAL LAB | | | | + +---------+ + + Basic Metabolic Panel (10/20/2015 4:58 AM PDT) + + + + + + | Component | Value | Ref Range | Performed | Pathologist | | | | | At | Signature | + + + + + + | Na | 137Comment: Testing | 135 - 145 | EXTERNAL | | | | performed at [facility], [address] | mmol/L | LAB | | | | [address], | | | | | | [place] [address] | | | | + + + + + + | K | 3.5Comment: Testing | 3.5 - 4.9 | EXTERNAL | | | | performed at [facility], [address] | mmol/L | LAB | | | | [address], | | | | | | [place] [address] | | | | + + + + + + | Cl | 102Comment: Testing | 99 - 109 mmol/L | EXTERNAL | | | | performed at [facility], [address] | | LAB | | | | [address], | | | | | | [place] [address] | | | | + + + + + + | CO2 | 19 (L)Comment: Testing | 23 - 32 mmol/L | EXTERNAL | | | | performed at [facility], [address] | | LAB | | | | [address], | | | | | | [place] [address] | | | | + + + + + + | Anion Gap | 20Comment: Testing | 5 - 20 mmol/L | EXTERNAL | | | | performed at [facility], [address] | | LAB | | | | [address], | | | | | | [place] [address] | | | | + + + + + + | Glucose, | 85Comment: Testing | 65 - 99 mg/dL | EXTERNAL | | | Fasting | performed at [facility], [address] | | LAB | | | | [address], | | | | | | [place] [address] | | | | + + + + + + | BUN | 25Comment: Testing | 8 - 25 mg/dL | EXTERNAL | | | | performed at [facility], [address] | | LAB | | | | [address], | | | | | | [place] [address] | | | | + + + + + + | Creatinine | 2.5 (H)Comment: Testing | 0.70 - 1.30 | EXTERNAL | | | | performed at [facility], [address] | mg/dL | LAB | | | | [address], | | | | | | [place] [address] | | | | + + + + + + | BUN/Creatin | 10Comment: Testing | | EXTERNAL | | | ine Ratio | performed at [facility], [address] | | LAB | | | | [address], | | | | | | [place] [address] | | | | + + + + + + | Calcium | 7.5 (L)Comment: Testing | 8.5 - 10.5 | EXTERNAL | | | | performed at [facility], [address] | mg/dL | LAB | | | | [address], | | | | | | [place] [address] | | | | + + + + + + | Estimated | 32 (L)Comment: GFR <60: | mL/min/1.73m2 | EXTERNAL | | | GFR | CHRONIC KIDNEY DISEASE, | | LAB | | | | IF FOUND OVER A 3 MONTH | | | | | | PERIOD.GFR <15: KIDNEY | | | | | | FAILURE.FOR | | | | | | AMERICANS, MULTIPLY THE | | | | | | CALCULATED GFR BY | | | | | | 1.210.Testing performed | | | | | | at [facility], [address] | | | | | | [address], | | | | | | [place] [address] | | | | + + + + + + + + | Specimen | + + | Blood specimen | | (specimen) | + + + +---------+ + + | Performing | Address | City/State/Zipcode | Phone Number | | Organization | | | | + +---------+ + + | EXTERNAL LAB | | | | + +---------+ + + POC Glucose (10/20/2015 4:51 AM PDT) + + + + + + | Component | Value | Ref Range | Performed | Pathologist | | | | | At | Signature | + + + + + + | Glucose, | 97Comment: Testing | 65 - 99 mg/dL | EXTERNAL | | | Fingerstick | performed at [facility];[address] | | LAB | | | | [address];[place] | | | | | | [address] | | | | + + + + + + + + | Specimen | + + | | + + + +---------+ + + | Performing | Address | City/State/Zipcode | Phone Number | | Organization | | | | + +---------+ + + | EXTERNAL LAB | | | | + +---------+ + + Tissue Request For Pathology (10/20/2015 12:00 AM PDT) + + | Specimen | + + | Soft tissue sample | | (specimen) | + + + + + | Narrative | Performed At | + + + | THIS IS AN ADDENDUM REPORT SPECIMEN(S): A KIDNEY BIOPSY | EXTERNAL LAB | | SPECIMEN SOURCE: A. KIDNEY BIOPSY CLINICAL HISTORY: 10/20/2015. | | | Heroin/meth abuse with septic valve, replacement, sepsis, multi-organ | | | failure, improving, but persistent anuria. The patient is a | | | 30-year-old male with history significant for multiple substance | | | abuse, including heroin, methamphetamine, and tobacco. He presented | | | with a 7-day history of progressive weakness, lethargy, and | | | generalized pain, along with ankle and right knee swelling. His | | | girlfriend noted that he appeared to be hallucinating the day prior to | | | admission. In the ED he was noted to have a positive Kernig's sign | | | and had point tenderness in the region of cervical spine. A lumbar | | | puncture was performed and he was started on IV antibiotics. CT of the | | | head and C-spine x-ray were performed. An MRI was attempted, but the | | | patient decompensated and required intubation for respiratory failure | | | and airway protection. Laboratory values include a serum creatinine | | | of 2.48, a BUN of 81, WBC 19.9, Hb 11.6, total bilirubin of 3.6, AST | | | 188, ALT 155, and normal CSF. FINAL PATHOLOGIC DIAGNOSIS: Kidney, | | | core biopsy: - Acute tubular injury. - Less than 5% | | | interstitial fibrosis. COMMENT: Electron microscopy is pending at | | | the time of this report. Those results will be forwarded in an | | | addendum as soon as they are available. Guy Swanson MD | | | TECHNICAL NOTE: This case was seen and processed at [facility] | | | [facility] in [place], [place]. (Report # [id number]). GROSS | | | DESCRIPTION: The specimen labeled and designated "Elder, left kidney | | | lower pole" is received in formalin, Uri, glutaraldehyde and consists | | | of several hernández-pink soft tissue cores. A portion of the specimen is | | | sent for EM and IF and the remainder of the specimen is submitted in | | | "A1" for light microscopy. The kidney biopsy was performed by the | | | radiologist. The pathologist - Dr. Chris Smith, performed a | | | consultation during the biopsy procedure on this case. "Received | | | fresh are 4 cores of tissue. The tissue is examined under a dissecting | | | microscope for the presence of glomeruli. The results are | | | communicated to the physician performing the biopsy". - | | | Intraoperative Findings (adequacy assessment): Pass # 1 | | | | | | Very few Glomeruli Pass # 2 | | | | | | Some Glomeruli, Appears Adequate Pass # 3 | | | | | | Some Glomeruli, Appears Adequate Pass # 4 | | | | | | Many Glomeruli BES MICROSCOPIC EXAMINATION: Multiple core | | | segments of renal tissue are examined in serial sections using PAS, | | | Trichrome, and Lima methenamine silver in addition to HE stains. The | | | tissue is approximately 40% cortex and 60 medulla. A total of five | | | glomeruli are present, one is globally sclerotic. The patient's | | | glomeruli show a normal cellularity and microarchitecture. There is no | | | endocapillary proliferation or membranoproliferative features. There | | | is no necrosis or crescents. On Lima stain, the capillary basement | | | membranes appear smooth, with no spikes, fenestrations, or double | | | contours. Scattered degenerating cell tubular casts are seen. The | | | remaining tubular epithelial cells show reparative features with | | | disruption of the brush borders and occasional mitotic figures. The | | | interstitium is edematous. There is no significant tubular atrophy, | | | but there is mild focal interstitial widening that appears to be due | | | to fibrosis, in addition to edema. There is minimal patchy chronic | | | inflammation associated with areas of fibrosis. Intralobular arteries | | | and smaller arterial branches, as well as arterioles are | | | unremarkable. There are not changes of acute endothelial injury, | | | thrombosis, or vasculitis. A few clusters of lymphocytes and plasma | | | cells are noted within the medulla. No red blood cells or inflammatory | | | cell casts or myoglobin is found. IMMUNOFLUORESCENCE MICROSCOPY: | | | The specimen for immunofluorescence is adequate. It consists of a | | | single core segment of renal cortical tissue. A total of five | | | glomeruli are present, all patent. Sections are stained by direct | | | immunofluorescence for IgG, IgM, C3, C1q, fibrinogen, albumin, and | | | kappa and lambda light chain. In these stains we find only trace | | | mesangial fluorescence for C3. There is no pattern of | | | immunofluorescence to suggest immunoglobulin, light chain, or | | | compliment deposition in glomeruli or other structures. No thrombi or | | | necrosis is found on the fibrinogen stain. PERFORMING LABORATORY: | | | Professional interpretation and technical preparation was performed by | | | [facility], [facility], [address] [place] [address]., | | | [place] [address] ([employer]ir[employer] Clerk: Chris Smith M.D.; | | | [facility]#: [id number]). REASON FOR ADDENDUM: To add results of [facility] | | | Electron Microscopy Electron Microscopy Diagnoses: - Nonspecific | | | ultrastructural glomerular changes with mesangial expansion, mild | | | ischemic wrinkling. - Single epimembranous hump-like deposit. | | | Guy Swanson M.D. DISCUSSION: One micron survey sections | | | are obtained from a single plastic embedded tissue block and stained | | | with Burton's stain. The tissue is renal cortex. Two glomeruli | | | are present. One appears partially sclerotic. These are further | | | sectioned for ultrastructural examination. On electron microscopy, | | | the mesangial areas are expanded and contain a few irregular densities | | | of uncertain significance. Capillary basement membranes appear | | | wrinkled. The capillary basement membranes are of normal thickness. | | | There is segmental effacement of visceral epithelial foot processes | | | over approximately 30% of the capillary surfaces. The fenestrated | | | endothelium appears to be largely intact, with no evidence of acute | | | endothelial injury or capillary proliferation. A single | | | epimembranous hump-like deposit is noted. No subendothelial | | | deposits are seen. Diagnostician: Chris Smith MD Pathologist | | | Electronically Signed 10/30/2015 | | + + + + +---------+ + + | Performing | Address | City/State/Zipcode | Phone Number | | Organization | | | | + +---------+ + + | EXTERNAL LAB | | | | + +---------+ + + Triglycerides (10/19/2015 8:34 PM PDT) + + + + + + | Component | Value | Ref Range | Performed | Pathologist | | | | | At | Signature | + + + + + + | Triglycerid | 438 (H)Comment: Testing | mg/dL | EXTERNAL | | | es | performed at [address], [address] | | LAB | | | | [address], | | | | | | [place] [address] | | | | + + + + + + + + | Specimen | + + | Blood specimen | | (specimen) | + + + +---------+ + + | Performing | Address | City/State/Zipcode | Phone Number | | Organization | | | | + +---------+ + + | EXTERNAL LAB | | | | + +---------+ + + Lipase (10/19/2015 8:34 PM PDT) + + + + + + | Component | Value | Ref Range | Performed | Pathologist | | | | | At | Signature | + + + + + + | Lipase | 142Comment: Testing | 73 - 393 U/L | EXTERNAL | | | | performed at [facility];[address] | | LAB | | | | [address] [facility];[place], [place] | | | | | | [address] | | | | + + + + + + + + | Specimen | + + | Blood specimen | | (specimen) | + + + +---------+ + + | Performing | Address | City/State/Zipcode | Phone Number | | Organization | | | | + +---------+ + + | EXTERNAL LAB | | | | + +---------+ + + Amylase (10/19/2015 8:34 PM PDT) + + + + + + | Component | Value | Ref Range | Performed | Pathologist | | | | | At | Signature | + + + + + + | Amylase | 51Comment: Testing | 25 - 115 U/L | EXTERNAL | | | | performed at [facility];[address] | | LAB | | | | [address];[place], [place] | | | | | | [address] | | | | + + + + + + + + | Specimen | + + | Blood specimen | | (specimen) | + + + +---------+ + + | Performing | Address | City/State/Zipcode | Phone Number | | Organization | | | | + +---------+ + + | EXTERNAL LAB | | | | + +---------+ + + XR Abdomen AP (10/19/2015 6:17 PM PDT) + + | Specimen | + + | | + + + + + | Impressions | Performed At | + + + | 1. Orogastric tube terminates in the stomach. Electronically | | | signed by Jet Melo MD on 10/19/2015 6:20 PM | | + + + + + + | Narrative | Performed At | + + + | YANG RIDLEY 1985 XR ABDOMEN 1 VIEW 10/19/2015 6:17 PM | | | INDICATION: Orogastric tube placement COMPARISON: CT, 10/19/2015 | | | TECHNIQUE: Abdominal series, 1 view, single AP view of the abdomen | | | FINDINGS: The tip of an orogastric tube terminates in the stomach. | | | Blunting of the right lateral costophrenic angle is consistent with | | | pleural fluid. Nodular opacities are seen in the lower lung | | | bilaterally. | | + + + + + | Procedure Note | + + | Elmer, Rad Conversion - 11/01/2018 7:23 PM PDT YANG RIDLEY1985XR ABDOMEN 1 | | VIEW10/19/2015 6:17 PM INDICATION: Orogastric tube placement COMPARISON: CT, 10/19/2015 | | TECHNIQUE: Abdominal series, 1 view, single AP view of the abdomen FINDINGS: The tip of | | an orogastric tube terminates in the stomach. Blunting of the right lateral | | costophrenic angle is consistent with pleural fluid. Nodular opacities are seen in the | | lower lung bilaterally. IMPRESSION: 1. Orogastric tube terminates in the stomach. | | | |COMPARISON: CT, 10/19/2015 | | | |TECHNIQUE: Abdominal series, 1 view, single AP view of the abdomen | | | |FINDINGS: The tip of an orogastric tube terminates in the stomach. Blunting of the right lateral costophrenic angle is consistent with pleural fluid. Nodular opacities are seen in t he lower lung bilaterally. | | | |IMPRESSION: | |1. Orogastric tube terminates in the stomach. | | | | | + + ECHO Transesophageal (ANITA) (10/19/2015 1:55 PM PDT) + + | Specimen | + + | | + + + + + | Impressions | Performed At | + + + | 1. Overall left ventricular systolic function is normal with, an EF | | | between 65 - 70 %. 2. Severe tricuspid regurgitation present. 3. | | | Large, mobile vegetation attached to the septal tricuspid valve | | | leaflet. | | + + + + + + | Narrative | Performed At | + + + | Patient Name: YANG RIDLEY Date of : 1985 | | | Performing Physician: Danyel Kimble MD | | | | | | INDICATIONS R/O PARAVALVULAR ABCESS CONCLUSIONS | | | 1. Overall left ventricular systolic function is normal | | | with, an EF between 65 - 70 %. 2. Severe tricuspid regurgitation | | | present. 3. Large, mobile vegetation attached to the septal tricuspid | | | valve leaflet. FINDINGS -------- Procedure: Transesophageal | | | echocardiogram with spectral and color flow Doppler was performed. | | | Procedure: ANITA was done atthe bedside in the fasting state. Informed | | | consent was obtained from family (patient was intubated and sedated) | | | after benefits and risks of the procedure were discussed including but | | | not limited to the potential for esophageal puncture and . | | | After conscious sedation, the transesophageal probe was advanced and | | | placed in the esophagus and multiple projections of the | | | cardiovascular structures were acquired and recorded. This was | | | followed by advancement of the probe into the stomach for | | | transgastric imaging. Finally, interrogation of the descending aorta | | | and arch was performed. The probe was removed. The patient | | | tolerated the procedure well. There were no immediate | | | complications. 2 D, pulsed and continuous wave form and color | | | images were interpreted in real time. Medications: 3 mg of Versed and | | | Medications: 100 mcg of Fentanyl was given intraveonously for | | | conscious sedation. Study quality: This was a technically adequate | | | study. Left Ventricle: The left ventricle size is normal. Left | | | Ventricle: Left Ventricle: Overall left ventricular systolic function | | | is normal with, an EF between 65 - 70 %. Left Atrium: The left | | | atrial size is normal. Left Atrium: Normal left atrial appendage | | | without evidence for thrombi. Right Ventricle: The right ventricle is | | | normal in size measuring < 33 mm. Right Atrium: The right atrial | | | size is normal. Interatrial Septum: No shunt seen with color Doppler. | | | Interatrial Septum: No shunt seen with bubble study. Aortic Valve: | | | The aortic valve is trileaflet, and appears structurally normal. No | | | aortic stenosis or regurgitation. Aortic Valve: No vegetation | | | visualized. Mitral Valve: The mitral valve is normal. Mitral Valve: | | | Mild mitral regurgitation is present. Mitral Valve: No vegetation | | | visualized. Tricuspid Valve: Severe tricuspid regurgitation present. | | | Tricuspid Valve: The right ventricular systolic pressure, as measured | | | by Doppler, is 38.97mmHg. Tricuspid Valve: Large, mobile vegetation | | | attached to the septal tricuspid valve leaflet. Pulmonic Valve: The | | | pulmonic valve is normal. Aorta: Ascending aorta, aortic arch and | | | descending thoracic aorta are of normal caliber with no significant | | | atherosclerotic disease. Pulmonary Artery: The pulmonic artery is | | | normal. Pulmonary Veins: All pulmonary veins appear normal. | | | Pulmonary Veins: The flow patterns, measured by Doppler, appear | | | normal. Pericardium: There is no pericardial effusion. | | | MEASUREMENTS RAP: 10 mmHg RVSP: 38.96 mmHg TR | | | maxP.96 mmHg TR Vmax: 2.69 m/s Under Trimmer: [id number] | | | Authenticated by: Danyel Kimble MD Report Date/Time: 10-20-2015 | | | 13:07:19 | | + + + + + | Procedure Note | + + | Erasmo Payne Conversion - 11/01/2018 7:23 PM PDT Patient Name: Kim RIDLEY of | | : 1985 Performing Physician: Danyel Kimble | | INDICATIONS R | | /O PARAVALVULAR ABCESS CONCLUSIONS 1. Overall left ventricular systolic | | function is normal with, an EF between 65 - 70 %.2. Severe tricuspid regurgitation | | present.3. Large, mobile vegetation attached to the septal tricuspid valve leaflet. | | FINDINGS--------Procedure: Transesophageal echocardiogram with spectral and color flow | | Doppler was performed.Procedure: ANITA was done atthe bedside in the fasting state. | | Informed consent was obtained from family (patient was intubated and sedated) after | | benefits and risks of the procedure were discussed including but not limited to the | | potential for esophageal puncture and . After conscious sedation, the | | transesophageal probe was advanced and placed in the esophagus and multiple projections | | of the cardiovascular structures were acquired and recorded. This was followed by | | advancement of the probe into the stomach for transgastric imaging. Finally, | | interrogation of the descending aorta and arch was performed. The probe was removed. | | The patient tolerated the procedure well. There were no immediate complications. 2 | | D, pulsed and continuous wave form and color images were interpreted in real | | time.Medications: 3 mg of Versed andMedications: 100 mcg of Fentanyl was given | | intraveonously for conscious sedation.Study quality: This was a technically adequate | | study.Left Ventricle: The left ventricle size is normal.Left Ventricle:Left Ventricle: | | Overall left ventricular systolic function is normal with, an EF between 65 - 70 %.Left | | Atrium: The left atrial size is normal.Left Atrium: Normal left atrial appendage without | | evidence for thrombi.Right Ventricle: The right ventricle is normal in size measuring < | | 33 mm.Right Atrium: The right atrial size is normal.Interatrial Septum: No shunt seen | | with color Doppler.Interatrial Septum: No shunt seen with bubble study.Aortic Valve: The | | aortic valve is trileaflet, and appears structurally normal. No aortic stenosis or | | regurgitation.Aortic Valve: No vegetation visualized.Mitral Valve: The mitral valve is | | normal.Mitral Valve: Mild mitral regurgitation is present.Mitral Valve: No vegetation | | visualized.Tricuspid Valve: Severe tricuspid regurgitation present.Tricuspid Valve: The | | right ventricular systolic pressure, as measured by Doppler, is 38.97mmHg.Tricuspid | | Valve: Large, mobile vegetation attached to the septal tricuspid valve leaflet.Pulmonic | | Valve: The pulmonic valve is normal.Aorta: Ascending aorta, aortic arch and descending | | thoracic aorta are of normal caliber with no significant atherosclerotic | | disease.Pulmonary Artery: The pulmonic artery is normal.Pulmonary Veins: All pulmonary | | veins appear normal.Pulmonary Veins: The flow patterns, measured by Doppler, appear | | normal.Pericardium: There is no pericardial effusion. MEASUREMENTS RAP: 10 | | mmHgRVSP: 38.96 mmHgTR maxP.96 mmHgTR Vmax: 2.69 m/s Under Trimmer: | | KVWAuthenticated by: Danyel Kimble MDRepdarren Date/Time: 10-20-2015 13:07:19 IMPRESSION: | | 1. Overall left ventricular systolic function is normal with, an EF between 65 - 70 %.2. | | Severe tricuspid regurgitation present.3. Large, mobile vegetation attached to the | | septal tricuspid valve leaflet. | |Aortic Valve: No vegetation visualized. | |Mitral Valve: The mitral valve is normal. | |Mitral Valve: Mild mitral regurgitation is present. | |Mitral Valve: No vegetation visualized. | |Tricuspid Valve: Severe tricuspid regurgitation present. | |Tricuspid Valve: The right ventricular systolic pressure, as measured by Doppler, is 38.97m mHg. | |Tricuspid Valve: Large, mobile vegetation attached to the septal tricuspid valve leaflet. | |Pulmonic Valve: The pulmonic valve is normal. | |Aorta: Ascending aorta, aortic arch and descending thoracic aorta are of normal caliber wit h no significant atherosclerotic disease. | |Pulmonary Artery: The pulmonic artery is normal. | |Pulmonary Veins: All pulmonary veins appear normal. | |Pulmonary Veins: The flow patterns, measured by Doppler, appear normal. | |Pericardium: There is no pericardial effusion. | | | |MEASUREMENTS | | | |RAP: 10 mmHg | |RVSP: 38.96 mmHg | |TR maxP.96 mmHg | |TR Vmax: 2.69 m/s | | | |Under Trimmer: KVW | |Authenticated by: Danyel Kimble MD | |Report Date/Time: 10-20-2015 13:07:19 | | | |IMPRESSION: | |1. Overall left ventricular systolic function is normal with, an EF between 65 - 70 %. | |2. Severe tricuspid regurgitation present. | |3. Large, mobile vegetation attached to the septal tricuspid valve leaflet. | + + Lactic Acid (10/19/2015 1:02 PM PDT) + + + + + + | Component | Value | Ref Range | Performed | Pathologist | | | | | At | Signature | + + + + + + | Lactate | 0.4Comment: Testing | 0.4 - 2.0 | EXTERNAL | | | | performed at [facility];[address] | mmol/L | LAB | | | | [address];[place], [place] | | | | | | [address] | | | | + + + + + + + + | Specimen | + + | Blood specimen | | (specimen) | + + + +---------+ + + | Performing | Address | City/State/Zipcode | Phone Number | | Organization | | | | + +---------+ + + | EXTERNAL LAB | | | | + +---------+ + + HISTORICAL MICROBIOLOGY RESULT (10/19/2015 9:30 AM PDT) + + | Specimen | + + | | + + + + + | Narrative | Performed At | + + + | Specimen Description CATHETER TIP CULTURE | EXTERNAL LAB | | NO GROWTH 2 DAYS | | + + + + +---------+ + + | Performing | Address | City/State/Zipcode | Phone Number | | Organization | | | | + +---------+ + + | EXTERNAL LAB | | | | + +---------+ + + Lactic Acid (10/19/2015 8:38 AM PDT) + + + + + + | Component | Value | Ref Range | Performed | Pathologist | | | | | At | Signature | + + + + + + | Lactate | 0.3 (L)Comment: Testing | 0.4 - 2.0 | EXTERNAL | | | | performed at [facility];[address] | mmol/L | LAB | | | | [address];[place] | | | | | | [address] | | | | + + + + + + + + | Specimen | + + | Blood specimen | | (specimen) | + + + +---------+ + + | Performing | Address | City/State/Zipcode | Phone Number | | Organization | | | | + +---------+ + + | EXTERNAL LAB | | | | + +---------+ + + XR Chest 1 Vw (10/19/2015 6:59 AM PDT) + + | Specimen | + + | | + + + + + | Impressions | Performed At | + + + | 1. Slight increase in size of the small right pleural effusion | | | with fluid tracking in the fissure. Otherwise stable chest. | | | | | + + + + + + | Narrative | Performed At | + + + | YANG FERREIRA CHEST 1 VIEW 10/19/2015 6:59 AM HISTORY: Line | | | placement. TECHNIQUE: One view of the chest FINDINGS: | | | Compared with 10/17/2015. Endotracheal tube tip is 7 cm above the | | | heidi. Nasogastric tube tip in the stomach. Central lines are | | | unchanged in positions. There are persistent small bilateral pleural | | | effusions, slightly increased on the right was fluid in the fissure. | | | Heart size is normal. There are persistent mild to moderate patchy | | | bilateral infiltrates or edema with little significant change. | | + + + + + | Procedure Note | + + | Elmer, Rad Conversion - 11/01/2018 7:23 PM PDT YANG RIDLEYXR CHEST 1 VIEW10/19/2015 | | 6:59 AM HISTORY:Line placement. TECHNIQUE:One view of the chest FINDINGS:Compared with | | 10/17/2015. Endotracheal tube tip is 7 cm above the heidi. Nasogastric tube tip in the | | stomach. Central lines are unchanged in positions. There are persistent small bilateral | | pleural effusions, slightly increased on the right was fluid in the fissure. Heart size | | is normal. There are persistent mild to moderate patchy bilateral infiltrates or edema | | with little significant change. IMPRESSION: 1. Slight increase in size of the small | | right pleural effusion with fluid tracking in the fissure. Otherwise stable chest. | | | | | |FINDINGS: | |Compared with 10/17/2015. Endotracheal tube tip is 7 cm above the heidi. Nasogastric tube t ip in the stomach. Central lines are unchanged in positions. There are persistent small bila teral pleural effusions, | |slightly increased on the right was fluid in | |the fissure. Heart size is normal. There are persistent mild to moderate patchy bilateral i nfiltrates or edema with little significant change. | | | |IMPRESSION: | |1. Slight increase in size of the small right pleural effusion with fluid tracking in the fissure. Otherwise stable chest. | | | | | + + PTT (10/19/2015 5:17 AM PDT) + + + + + + | Component | Value | Ref Range | Performed | Pathologist | | | | | At | Signature | + + + + + + | aPTT, | 27Comment: Testing | 23 - 32 seconds | EXTERNAL | | | Patient | performed at [facility];[address] | | LAB | | | | [address] [facility];[place], [place] | | | | | | [address] | | | | + + + + + + + + | Specimen | + + | Blood specimen | | (specimen) | + + + +---------+ + + | Performing | Address | City/State/Zipcode | Phone Number | | Organization | | | | + +---------+ + + | EXTERNAL LAB | | | | + +---------+ + + Protime INR (10/19/2015 5:17 AM PDT) + + + + + + | Component | Value | Ref Range | Performed | Pathologist | | | | | At | Signature | + + + + + + | INR | 1.1Comment: REFERENCE | | EXTERNAL | | | | RANGE:0.9 - 1.2 | | LAB | | | | NON-ANTICOAGULATED2.0 | | | | | | - 3.0 ALL OTHER | | | | | | THERAPEUTIC | | | | | | INDICATIONS2.5 - 3.5 | | | | | | MECHANICAL HEART VALVES, | | | | | | RECURRENT OR SYSTEMIC | | | | | | EMBOLISMTesting | | | | | | performed at [facility];[address] | | | | | | [address];[place], [place] | | | | | | [address] | | | | + + + + + + + + | Specimen | + + | Blood specimen | | (specimen) | + + + +---------+ + + | Performing | Address | City/State/Zipcode | Phone Number | | Organization | | | | + +---------+ + + | EXTERNAL LAB | | | | + +---------+ + + Lactic Acid (10/19/2015 4:54 AM PDT) + + + + + + | Component | Value | Ref Range | Performed | Pathologist | | | | | At | Signature | + + + + + + | Lactate | 0.3 (L)Comment: Testing | 0.4 - 2.0 | EXTERNAL | | | | performed at [facility];[address] | mmol/L | LAB | | | | [address];[place] | | | | | | [address] | | | | + + + + + + + + | Specimen | + + | Blood specimen | | (specimen) | + + + +---------+ + + | Performing | Address | City/State/Zipcode | Phone Number | | Organization | | | | + +---------+ + + | EXTERNAL LAB | | | | + +---------+ + + HISTORICAL LAB PANEL RESULT (10/19/2015 4:52 AM PDT) + + + + + + | Component | Value | Ref Range | Performed | Pathologist | | | | | At | Signature | + + + + + + | WBC | 9.56Comment: Testing | 3.80 - 11.00 | EXTERNAL | | | | performed at [facility];[address] | K/uL | LAB | | | | [address];[place] | | | | | | [address] | | | | + + + + + + | Non- | 2.73 (L)Comment: Testing | 4.20 - 5.70 | EXTERNAL | | | Red Blood | performed at [facility];[address] | M/uL | LAB | | | Cells | [address];[place] | | | | | Counted | [id number] | | | | + + + + + + | Hemoglobin | 8.0 (L)Comment: Testing | 13.2 - 17.0 | EXTERNAL | | | | performed at [facility];[address] | g/dL | LAB | | | | [address];[place] | | | | | | [address] | | | | + + + + + + | Hematocrit, | 24.3 (L)Comment: Testing | 39.0 - 50.0 % | EXTERNAL | | | POC | performed at [facility];[address] | | LAB | | | | [address];[place] | | | | | | [address] | | | | + + + + + + | MCV | 88.9Comment: Testing | 80.0 - 100.0 fl | EXTERNAL | | | | performed at [facility];[address] | | LAB | | | | [address];[place] | | | | | | [address] | | | | + + + + + + | MCH | 29.2Comment: Testing | 27.0 - 34.0 pg | EXTERNAL | | | | performed at [facility];[address] | | LAB | | | | [address];[place] | | | | | | [address] | | | | + + + + + + | MCHC | 32.8Comment: Testing | 32.0 - 35.5 | EXTERNAL | | | | performed at [facility];[address] | g/dL | LAB | | | | [address];[place] | | | | | | [address] | | | | + + + + + + | RDW-CV | 55.1 (H)Comment: Testing | 37 - 53 fl | EXTERNAL | | | | performed at [facility];[address] | | LAB | | | | [address];[place] | | | | | | [address] | | | | + + + + + + | Platelet | 224Comment: Testing | 150 - 400 K/uL | EXTERNAL | | | Count | performed at [facility];[address] | | LAB | | | Plasma | [address];[place] | | | | | | [address] | | | | + + + + + + | MPV | 7.7Comment: Testing | fl | EXTERNAL | | | | performed at [facility];[address] | | LAB | | | | [address];[place] | | | | | | [address] | | | | + + + + + + | Differentia | AUTOMATEDComment: | | EXTERNAL | | | l Type | Testing performed at | | LAB | | | | [facility];[address];[place] [address] | | | | + + + + + + | % Segmented | 81.80Comment: Testing | % | EXTERNAL | | | | performed at [facility];[address] | | LAB | | | Neutrophils | [address];[place] | | | | | | [address] | | | | + + + + + + | % | 6.61Comment: Testing | % | EXTERNAL | | | Lymphocytes | performed at [facility];[address] | | LAB | | | | [address];[place] | | | | | | [address] | | | | + + + + + + | % Monocytes | 6.45Comment: Testing | % | EXTERNAL | | | | performed at [facility];[address] | | LAB | | | | [address];[place] | | | | | | [address] | | | | + + + + + + | % | 4.41Comment: Testing | % | EXTERNAL | | | Eosinophils | performed at [facility];[address] | | LAB | | | | [address];[place] | | | | | | [address] | | | | + + + + + + | % Basophils | 0.73Comment: Testing | % | EXTERNAL | | | | performed at [facility];[address] | | LAB | | | | [address];[place] | | | | | | [address] | | | | + + + + + + | Absolute | 7.82 (H)Comment: Testing | 1.90 - 7.40 | EXTERNAL | | | Segmented | performed at [facility];[address] | K/uL | LAB | | | Neutrophils | [address];[place] | | | | | | [address] | | | | + + + + + + | Absolute | 0.63 (L)Comment: Testing | 1.00 - 3.90 | EXTERNAL | | | Lymphocytes | performed at [facility];[address] | K/uL | LAB | | | | [address];[place] | | | | | | [address] | | | | + + + + + + | Absolute | 0.62Comment: Testing | 0.00 - 0.80 | EXTERNAL | | | Monocytes | performed at [facility];[address] | K/uL | LAB | | | | [address];[place] | | | | | | [address] | | | | + + + + + + | Absolute | 0.42Comment: Testing | 0.00 - 0.50 | EXTERNAL | | | Eosinophils | performed at [facility];[address] | K/uL | LAB | | | | [address];[place] | | | | | | [address] | | | | + + + + + + | Absolute | 0.07Comment: Testing | 0.00 - 0.10 | EXTERNAL | | | Basophils | performed at [facility];[address] | K/uL | LAB | | | | [address];[place] | | | | | | [address] | | | | + + + + + + | Na | 131 (L)Comment: Testing | 135 - 145 | EXTERNAL | | | | performed at [facility];888 | mmol/L | LAB | | | | [address];[place] | | | | | | [address] | | | | + + + + + + | K | 3.3 (L)Comment: Testing | 3.5 - 4.9 | EXTERNAL | | | | performed at [facility];888 | mmol/L | LAB | | | | [address];[place] | | | | | | [address] | | | | + + + + + + | Cl | 98 (L)Comment: Testing | 99 - 109 mmol/L | EXTERNAL | | | | performed at [facility];888 | | LAB | | | | [address];[place] | | | | | | [address] | | | | + + + + + + | CO2 | 18 (L)Comment: Testing | 23 - 32 mmol/L | EXTERNAL | | | | performed at [facility];888 | | LAB | | | | [address];[place] | | | | | | [address] | | | | + + + + + + | Anion Gap | 19Comment: Testing | 5 - 20 mmol/L | EXTERNAL | | | | performed at [facility];[address] | | LAB | | | | [address];[place] | | | | | | [address] | | | | + + + + + + | Glucose, | 92Comment: Testing | 65 - 99 mg/dL | EXTERNAL | | | Fasting | performed at [facility];[address] | | LAB | | | | [address];[place] | | | | | | [address] | | | | + + + + + + | BUN | 58 (H)Comment: Testing | 8 - 25 mg/dL | EXTERNAL | | | | performed at [facility];888 | | LAB | | | | [address];[place] | | | | | | [address] | | | | + + + + + + | Creatinine | 4.1 (H)Comment: Testing | 0.70 - 1.30 | EXTERNAL | | | | performed at [facility];888 | mg/dL | LAB | | | | [address];[place] | | | | | | [address] | | | | + + + + + + | BUN/Creatin | 14Comment: Testing | | EXTERNAL | | | ine Ratio | performed at [facility];888 | | LAB | | | | [address];[place] | | | | | | [address] | | | | + + + + + + | Calcium | 7.4 (L)Comment: Testing | 8.5 - 10.5 | EXTERNAL | | | | performed at [facility];888 | mg/dL | LAB | | | | [address];[place] | | | | | | [address] | | | | + + + + + + | Protein, | 5.9 (L)Comment: Testing | 6.3 - 8.2 g/dL | EXTERNAL | | | Total | performed at [facility];[address] | | LAB | | | | [address];[place] | | | | | | [address] | | | | + + + + + + | Albumin | 1.3 (L)Comment: Testing | 3.6 - 5.0 g/dL | EXTERNAL | | | | performed at [facility];[address] | | LAB | | | | [address];[place] | | | | | | [address] | | | | + + + + + + | Globulin | 4.6Comment: Testing | 1.3 - 4.9 g/dL | EXTERNAL | | | | performed at [facility];[address] | | LAB | | | | [address];[place] | | | | | | [address] | | | | + + + + + + | A/G Ratio | 0.3 (L)Comment: Testing | 1.0 - 2.4 | EXTERNAL | | | | performed at [facility];[address] | | LAB | | | | [address];[place] | | | | | | [address] | | | | + + + + + + | Bilirubin | 1.7 (H)Comment: Testing | 0.1 - 1.5 mg/dL | EXTERNAL | | | Total | performed at [facility];[address] | | LAB | | | | [address];[place] | | | | | | [address] | | | | + + + + + + | ALP, | 73Comment: Testing | 35 - 115 U/L | EXTERNAL | | | External | performed at [facility];[address] | | LAB | | | | [address];[place] | | | | | | [address] | | | | + + + + + + | AST | 29Comment: Testing | 10 - 45 U/L | EXTERNAL | | | | performed at [facility];[address] | | LAB | | | | [address];[place] | | | | | | [address] | | | | + + + + + + | ALT | 22Comment: Testing | 10 - 65 U/L | EXTERNAL | | | | performed at [facility];[address] | | LAB | | | | [address];[place] | | | | | | [address] | | | | + + + + + + | Estimated | 18 (L)Comment: GFR <60: | mL/min/1.73m2 | EXTERNAL | | | GFR | CHRONIC KIDNEY DISEASE, | | LAB | | | | IF FOUND OVER A 3 MONTH | | | | | | PERIOD.GFR <15: KIDNEY | | | | | | FAILURE.FOR | | | | | | AMERICANS, MULTIPLY THE | | | | | | CALCULATED GFR BY | | | | | | 1.210.Testing performed | | | | | | at [facility];[address];[place] [address] | | | | + + + + + + | CK, Total | 19 (L)Comment: Testing | 55 - 400 U/L | EXTERNAL | | | | performed at [facility];888 | | LAB | | | | [address];[place] | | | | | | [address] | | | | + + + + + + | Troponin I, | 0.064Comment: 0.00 to | 0.00 - 0.10 | EXTERNAL | | | Qual | 0.10 CONSISTENT WITH | ng/mL | LAB | | | | NORMAL POPULATION0.11 to | | | | | | 0.60 CONSISTENT WITH | | | | | | INCREASED RISK FOR | | | | | | ADVERSE OUTCOMES> 0.60 | | | | | | CONSISTENT | | | | | | WITH WHO CRITERIA FOR | | | | | | ACUTE NE Testing | | | | | | performed at [facility];[address] | | | | | | [address];[place], [place] | | | | | | [address] | | | | + + + + + + | Protime | DUPLICATE ORDER | seconds | EXTERNAL | | | | | | LAB | | + + + + + + | INR | DUPLICATE ORDER | | EXTERNAL | | | | | | LAB | | + + + + + + | aPTT, | DUPLICATE ORDER | 23 - 32 seconds | EXTERNAL | | | Patient | | | LAB | | + + + + + + | CK-MB | <0.5 (L)Comment: Testing | 0.5 - 3.6 ng/mL | EXTERNAL | | | | performed at [facility];[address] | | LAB | | | | [address];[place] | | | | | | [address] | | | | + + + + + + | CK-MB Index | UNABLE TO | | EXTERNAL | | | | CALCULATEComment: | | LAB | | | | Testing performed at | | | | | | [facility];[address];[place] [address] | | | | + + + + + + + + | Specimen | + + | | + + + +---------+ + + | Performing | Address | City/State/Zipcode | Phone Number | | Organization | | | | + +---------+ + + | EXTERNAL LAB | | | | + +---------+ + + Phosphorus (10/19/2015 4:52 AM PDT) + + + + + + | Component | Value | Ref Range | Performed | Pathologist | | | | | At | Signature | + + + + + + | PHOSPHORUS | 7.1 (H)Comment: Testing | 2.3 - 4.8 mg/dL | EXTERNAL | | | | performed at [facility];[address] | | LAB | | | | [address];[place], [place] | | | | | | [address] | | | | + + + + + + + + | Specimen | + + | Blood specimen | | (specimen) | + + + +---------+ + + | Performing | Address | City/State/Zipcode | Phone Number | | Organization | | | | + +---------+ + + | EXTERNAL LAB | | | | + +---------+ + + Magnesium (10/19/2015 4:52 AM PDT) + + + + + + | Component | Value | Ref Range | Performed | Pathologist | | | | | At | Signature | + + + + + + | Magnesium | 2.0Comment: Testing | 1.7 - 2.4 mg/dL | EXTERNAL | | | | performed at [facility];[address] | | LAB | | | | [address];[place], [place] | | | | | | [address] | | | | + + + + + + + + | Specimen | + + | Blood specimen | | (specimen) | + + + +---------+ + + | Performing | Address | City/State/Zipcode | Phone Number | | Organization | | | | + +---------+ + + | EXTERNAL LAB | | | | + +---------+ + + ECG 12 lead (10/19/2015 4:38 AM PDT) + + + + + + | Component | Value | Ref Range | Performed | Pathologist | | | | | At | Signature | + + + + + + | DIAGNOSIS: | Normal sinus | | EXTERNAL | | | | rhythmNonspecific ST | | LAB | | | | and/or T wave | | | | | | abnormalitiesBorderline | | | | | | ECGWhen compared with | | | | | | ECG of 11-OCT-2015 | | | | | | 06:38,T wave inversion | | | | | | no longer evident in | | | | | | Inferior leadsConfirmed | | | | | | by CANDACE FRY ([id number]) | | | | | | on 10/19/2015 7:53:08 AM | | | | + + + + + + + + | Specimen | + + | | + + + + + | Narrative | Performed At | + + + | Historically converted procedure from [facility] environment | EXTERNAL LAB | + + + + +---------+ + + | Performing | Address | City/State/Zipcode | Phone Number | | Organization | | | | + +---------+ + + | EXTERNAL LAB | | | | + +---------+ + + CT Abdomen Pelvis wo Contrast (10/19/2015 3:41 AM PDT) + + | Specimen | + + | | + + + + + | Impressions | Performed At | + + + | 1. Long segment of wall thickening involving the mid to distal | | | ileum and right colon. This can be seen with infectious, inflammatory, | | | or ischemic enteritis. 2. Mild diffuse mesenteric edema and free | | | fluid. This is likely mostly secondary to patient's underlying severe | | | anasarca. 3. Decreasing pleural effusions and evidence of septic | | | pulmonary emboli and at the lung bases. [facility] Electronically | | | signed by Abran Calderon MD on Oct 19 2015 4:13AM Referring | | | Provider Line: [phone] ID: [id number] | | + + + + + + | Narrative | Performed At | + + + | EXAM: CT ABDOMEN AND PELVIS EXAM DATE: 10/19/2015 03:42 AM. | | | CLINICAL HISTORY: Septic emboli, abdominal distention and pain | | | COMPARISONS: 10/05/2015. TECHNIQUE: Routine axial helical CT | | | imaging was performed through the abdomen and pelvis with oral but | | | without IV contrast. Reconstructions: Coronal and sagittal. In | | | accordance with CT protocol optimization, one or more of the following | | | dose reduction techniques were utilized for this exam: automated | | | exposure control, adjustment of mA and/or KV based on patient size, or | | | use of iterative reconstructive technique. FINDINGS: Lung Bases: | | | Decreasing loculated pleural effusions and multifocal airspace | | | opacities again noted, consistent with septic emboli. Noncontrast | | | abdominal organs: Grossly stable and unremarkable noncontrast | | | appearance to the liver, gallbladder, pancreas, adrenals, kidneys, and | | | spleen. Peritoneal Cavity: Long segment of wall thickening | | | involving the mid to distal ileum and right colon. Mild diffuse | | | mesenteric edema and free fluid. No gross free air. No obstruction. | | | Pelvic Organs: No bladder stones or wall thickening. Noncontrast | | | images of the visualized pelvic organs are unremarkable. | | | Vasculature: Unremarkable. Other: Severe generalized anasarca. | | + + + + + | Procedure Note | + + | Elmer, Rad Conversion - 11/01/2018 7:23 PM PDT EXAM:CT ABDOMEN AND PELVIS EXAM DATE: | | 10/19/2015 03:42 AM. CLINICAL HISTORY: Septic emboli, abdominal distention and pain | | COMPARISONS: 10/05/2015. TECHNIQUE: Routine axial helical CT imaging was performed | | through the abdomen and pelvis with oral but without IV contrast. Reconstructions: | | Coronal and sagittal. In accordance with CT protocol optimization, one or more of the | | following dose reduction techniques were utilized for this exam: automated exposure | | control, adjustment of mA and/or KV based on patient size, or use of iterative | | reconstructive technique. FINDINGS:Lung Bases: Decreasing loculated pleural effusions | | and multifocal airspace opacities again noted, consistent with septic emboli. | | Noncontrast abdominal organs: Grossly stable and unremarkable noncontrast appearance to | | the liver, gallbladder, pancreas, adrenals, kidneys, and spleen. Peritoneal Cavity: Long | | segment of wall thickening involving the mid to distal ileum and right colon. Mild | | diffuse mesenteric edema and free fluid. No gross free air. No obstruction. Pelvic | | Organs: No bladder stones or wall thickening. Noncontrast images of the visualized | | pelvic organs are unremarkable. Vasculature: Unremarkable. Other: Severe generalized | | anasarca. IMPRESSION: 1. Long segment of wall thickening involving the mid to distal | | ileum and right colon. This can be seen with infectious, inflammatory, or ischemic | | enteritis.2. Mild diffuse mesenteric edema and free fluid. This is likely mostly | | secondary to patient's underlying severe anasarca.3. Decreasing pleural effusions and | | evidence of septic pulmonary emboli and at the lung bases. RADIA Electronically signed | | by Abran Calderon MD on Oct 19 2015 4:13AM Referring Provider Line: [phone] | | ID: [id number] | |Vasculature: Unremarkable. | | | |Other: Severe generalized anasarca. | | | |IMPRESSION: | | | |1. Long segment of wall thickening involving the mid to distal ileum and right colon. This can be seen with infectious, inflammatory, or ischemic enteritis. | |2. Mild diffuse mesenteric edema and free fluid. This is likely mostly secondary to patient 's underlying severe anasarca. | |3. Decreasing pleural effusions and evidence of septic pulmonary emboli and at the lung bas es. | | | |[facility] | | | | Electronically signed by Abran Calderon MD on Oct 19 2015 4:13AM Referring Provider Sushma e: [phone] ID: [id number] | + + Culture, Blood, 2nd Specimen (10/18/2015 10:21 AM PDT) + + | Specimen | + + | Blood specimen | | (specimen) | + + + + + | Narrative | Performed At | + + + | Specimen Description BLOOD, PERIPHERAL DRAW | EXTERNAL LAB | | CULTURE NO GROWTH 6 DAYS | | + + + + +---------+ + + | Performing | Address | City/State/Zipcode | Phone Number | | Organization | | | | + +---------+ + + | EXTERNAL LAB | | | | + +---------+ + + ECHO Complete (10/18/2015 9:07 AM PDT) + + | Specimen | + + | | + + + + + | Impressions | Performed At | + + + | 1. Possible mobile vegetation attached to the posterior mitral valve | | | leaflet. This is a new finding vs prior Echo. Discussed with ICU | | | physician. 2. Moderate, mobile vegetation attached to the septal | | | tricuspid valve leaflet. 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 Possible mobile | | | vegetation attached to the posterior mitral valve leaflet. This is a | | | new finding vs prior Echo. Discussed with ICU physician. 2. Moderate, | | | mobile vegetation attached to the septal tricuspid valve leaflet. | | | FINDINGS -------- ECG rhythm: Resting tachycardia (HR>100bpm). | | | Study: A 2-dimensional transthoracic echocardiogram with m-mode, | | | spectral and color flow Doppler was perfomed. Study: This was a | | | technically adequate study. Left Ventricle: Overall left ventricular | | | systolic function is normal with, an EF between 60 - 65 %. Left | | | Ventricle: The left ventricle cavity size is normal. Left Ventricle: | | | Left ventricular wall thickness is normal. Left Ventricle: No | | | regional wall motion abnormalities. Left Ventricle: The diastolic | | | filling pattern is normal for the age of the patient. Right | | | Ventricle: The right ventricle is mildly enlarged measuring between | | | 3.4 - 3.7 cm. Right Ventricle: The right ventricular systolic | | | function is normal. Left Atrium: The left atrium is normal in size. | | | Right Atrium: The right atrium is normal in size. Aortic Valve: The | | | aortic valve is trileaflet, and appears anatomically normal. No aortic | | | stenosis or regurgitation. Mitral Valve: The mitral valve is normal. | | | Mitral Valve: There is trace mitral regurgitation. Mitral Valve: | | | Large, mobile vegetation attached to the posterior mitral valve | | | leaflet. Tricuspid Valve: The tricuspid valve appears structurally | | | normal. Tricuspid Valve: Mild tricuspid regurgitation present. | | | Tricuspid Valve: The right ventricular systolic pressure (pulmonary | | | artery systolic pressure), as measured by Doppler, is 52.24mmHg. | | | Moderate, mobile vegetation is visualized on the septal leaflet of the | | | tricuspid valve. Tricuspid Valve: Moderate, mobile vegetation | | | attached to the septal tricuspid valve leaflet. Pulmonic Valve: The | | | pulmonic valve is normal. Pulmonic Valve: Trace pulmonic | | | regurgitation. Pericardium: There is no pericardial effusion. | | | IVC/Hepatic Veins: The IVC is normal size (1.5-2.5cm) and collapses | | | <50% with sniff, consistent with central venous pressures of | | | 10-15mmHg. Aorta: The aortic root, ascending aorta and aortic arch | | | are normal. MEASUREMENTS Ao asc: 2.90 cm Ao | | | Diam: 3.13 cm IVC: 1.68 cm LA Diam: 2.82 cm LA Major: | | | 3.88 cm EDV(Teich): 86.49 ml IVSd: 1.06 cm LVIDd: 4.37 cm | | | LVPWd: 1.07 cm LVOT Diam: 2.28 cm %FS: 40.18 % EF(Teich): | | | 71.10 % ESV(Teich): 24.99 ml IVSs: 1.42 cm LVIDs: 2.61 | | | cm LVPWs: 1.69 cm SV(Teich): 61.49 ml RA Major: 3.61 cm | | | RVIDd: 3.49 cm LAESV(A-L): 40.93 ml LAESV Index (A-L): | | | 22.74 ml/m2 LAAs A2C: 9.60 cm2 LAESV MOD A2C: 19.81 ml LALs | | | A2C: 3.33 cm LAAs A4C: 16.73 cm2 LAESV MOD A4C: 52.07 ml | | | LALs A4C: 4.18 cm HR: 105.73 BPM AV maxP.75 mmHg AV | | | meanP.76 mmHg AV Vmax: 1.19 m/s AV Vmean: 0.93 m/s AV | | | VTI: 20.05 cm MAGUI Vmax: 2.13 cm2 MAGUI (VTI): 2.13 cm2 AVAI | | | Vmax: 0.00 cm2/m2 AVAI (VTI): 0.00 cm2/m2 LVCI Dopp: 2.40 | | | l/minm2 LVCO Dopp: 4.32 l/min HR: 100.81 BPM LVOT maxPG: | | | 1.56 mmHg LVOT meanP.04 mmHg LVSI Dopp: 23.84 ml/m2 LVSV | | | Dopp: 42.91 ml LVOT Vmax: 0.62 m/s LVOT Vmean: 0.47 m/s | | | LVOT VTI: 10.45 cm MV A Jazlyn: 0.76 m/s MV DecT: 195.04 ms | | | MV E Jazlyn: 0.93 m/s MV E/A Ratio: 1.21 E/E' Av.53 E' | | | Av.20 m/s E/E' Lat: 4.07 E/E' Sept: 5.10 E' Lat: | | | 0.22 m/s E' Sept: 0.18 m/s P Vein D: 0.24 m/s P Vein S/D | | | Ratio: 2.65 P Vein S: 0.64 m/s HR: 102 BPM PV maxPG: | | | 2.57 mmHg PV meanP.30 mmHg PV Vmax: 0.80 m/s PV Vmean: | | | 0.53 m/s PV VTI: 13.82 cm PV maxP.32 mmHg PV Vmax: | | | 1.03 m/s RAP: 10 mmHg RVSP: 52.24 mmHg TR maxP.24 | | | mmHg TR Vmax: 3.24 m/s Under Trimmer: Authenticated by: | | | Alan Villanueva MD Report Date/Time: 10-18-2015 11:41:53 | | + + + + + | Procedure Note | + + | Erasmo Payen Conversion - 11/01/2018 7:23 PM PDT Patient Name: Kim RIDLEY of | | : 1985 Performing Physician: Alan Villanueva | | ------REPORT | | ADDENDED------INDICATIONS F/U Tricuspid Endocarditis CONCLUSIONS 1. | | Possible mobile vegetation attached to the posterior mitral valve leaflet. This is a new | | finding vs prior Echo. Discussed with ICU physician.2. Moderate, mobile vegetation | | attached to the septal tricuspid valve leaflet. FINDINGS--------ECG rhythm: Resting | | tachycardia (HR>100bpm).Study: A 2-dimensional transthoracic echocardiogram with m-mode, | | spectral and color flow Doppler was perfomed.Study: This was a technically adequate | | study.Left Ventricle: Overall left ventricular systolic function is normal with, an EF | | between 60 - 65 %.Left Ventricle: The left ventricle cavity size is normal.Left | | Ventricle: Left ventricular wall thickness is normal.Left Ventricle: No regional wall | | motion abnormalities.Left Ventricle: The diastolic filling pattern is normal for the age | | of the patient.Right Ventricle: The right ventricle is mildly enlarged measuring | | between 3.4 - 3.7 cm.Right Ventricle: The right ventricular systolic function is | | normal.Left Atrium: The left atrium is normal in size.Right Atrium: The right atrium is | | normal in size.Aortic Valve: The aortic valve is trileaflet, and appears anatomically | | normal. No aortic stenosis or regurgitation.Mitral Valve: The mitral valve is | | normal.Mitral Valve: There is trace mitral regurgitation.Mitral Valve: Large, mobile | | vegetation attached to the posterior mitral valve leaflet.Tricuspid Valve: The tricuspid | | valve appears structurally normal.Tricuspid Valve: Mild tricuspid regurgitation | | present.Tricuspid Valve: The right ventricular systolic pressure (pulmonary artery | | systolic pressure), as measured by Doppler, is 52.24mmHg. Moderate, mobile vegetation is | | visualized on the septal leaflet of the tricuspid valve.Tricuspid Valve: Moderate, | | mobile vegetation attached to the septal tricuspid valve leaflet.Pulmonic Valve: The | | pulmonic valve is normal.Pulmonic Valve: Trace pulmonic regurgitation.Pericardium: | | There is no pericardial effusion.IVC/Hepatic Veins: The IVC is normal size (1.5-2.5cm) | | and collapses <50% with sniff, consistent with central venous pressures of | | 10-15mmHg.Aorta: The aortic root, ascending aorta and aortic arch are normal. | | MEASUREMENTS Ao asc: 2.90 cmAo Diam: 3.13 cmIVC: 1.68 cmLA Diam: | | 2.82 cmLA Major: 3.88 cmEDV(Teich): 86.49 mlIVSd: 1.06 cmLVIDd: 4.37 cmLVPWd: | | 1.07 cmLVOT Diam: 2.28 cm%FS: 40.18 %EF(Teich): 71.10 %ESV(Teich): 24.99 mlIVSs: | | 1.42 cmLVIDs: 2.61 cmLVPWs: 1.69 cmSV(Teich): 61.49 mlRA Major: 3.61 cmRVIDd: | | 3.49 cmLAESV(A-L): 40.93 mlLAESV Index (A-L): 22.74 ml/m2LAAs A2C: 9.60 | | [id number] MOD A2C: 19.81 mlLALs A2C: 3.33 cmLAAs A4C: 16.73 [id number] MOD A4C: | | 52.07 mlLALs A4C: 4.18 cmHR: 105.73 BPMAV maxP.75 mmHgAV meanP.76 mmHgAV | | Vmax: 1.19 m/Sofiya Vmean: 0.93 m/Sofiya VTI: 20.05 cmAVA Vmax: 2.13 cm2AVA (VTI): | | 2.13 [id number] Vmax: 0.00 cm2/m2AVAI (VTI): 0.00 cm2/m2LVCI Dopp: 2.40 l/udow3BYFT | | Dopp: 4.32 l/minHR: 100.81 BPMLVOT maxP.56 mmHgLVOT meanP.04 mmHgLVSI | | Dopp: 23.84 ml/m2LVSV Dopp: 42.91 mlLVOT Vmax: 0.62 m/sLVOT Vmean: 0.47 m/sLVOT | | VTI: 10.45 cmMV A Jazlyn: 0.76 m/sMV DecT: 195.04 msMV E Jazlyn: 0.93 m/sMV E/A Ratio: | | 1.21E/E' Av.53E' Av.20 m/sE/E' Lat: 4.07E/E' Sept: 5.10E' Lat: 0.22 | | m/sE' Sept: 0.18 m/sP Vein D: 0.24 m/sP Vein S/D Ratio: 2.65P Vein S: 0.64 | | m/sHR: 102 BPMPV maxP.57 mmHgPV meanP.30 mmHgPV Vmax: 0.80 m/sPV Vmean: | | 0.53 m/sPV VTI: 13.82 cmPV maxP.32 mmHgPV Vmax: 1.03 m/sRAP: 10 mmHgRVSP: | | 52.24 mmHgTR maxP.24 mmHgTR Vmax: 3.24 m/s Under Trimmer: JRAuthenticated by: | | Alan Villanueva MDReport Date/Time: 10-18-2015 11:41:53 IMPRESSION: 1. Possible | | mobile vegetation attached to the posterior mitral valve leaflet. This is a new finding | | vs prior Echo. Discussed with ICU physician.2. Moderate, mobile vegetation attached to | | the septal tricuspid valve leaflet. | |Ao Diam: 3.13 cm | |IVC: 1.68 cm | |LA Diam: 2.82 cm | |LA Major: 3.88 cm | |EDV(Teich): 86.49 ml | |IVSd: 1.06 cm | |LVIDd: 4.37 cm | |LVPWd: 1.07 cm | |LVOT Diam: 2.28 cm | |%FS: 40.18 % | |EF(Teich): 71.10 % | |ESV(Teich): 24.99 ml | |IVSs: 1.42 cm | |LVIDs: 2.61 cm | |LVPWs: 1.69 cm | |SV(Teich): 61.49 ml | |RA Major: 3.61 cm | |RVIDd: 3.49 cm | |LAESV(A-L): 40.93 ml | |LAESV Index (A-L): 22.74 ml/m2 | |LAAs A2C: 9.60 cm2 | |LAESV MOD A2C: 19.81 ml | |LALs A2C: 3.33 cm | |LAAs A4C: 16.73 cm2 | |LAESV MOD A4C: 52.07 ml | |LALs A4C: 4.18 cm | |HR: 105.73 BPM | |AV maxP.75 mmHg | |AV meanP.76 mmHg | |AV Vmax: 1.19 m/s | |AV Vmean: 0.93 m/s | |AV VTI: 20.05 cm | |MAGUI Vmax: 2.13 cm2 | |MAGUI (VTI): 2.13 cm2 | |AVAI Vmax: 0.00 cm2/m2 | |AVAI (VTI): 0.00 cm2/m2 | |LVCI Dopp: 2.40 l/minm2 | |LVCO Dopp: 4.32 l/min | |HR: 100.81 BPM | |LVOT maxP.56 mmHg | |LVOT meanP.04 mmHg | |LVSI Dopp: 23.84 ml/m2 | |LVSV Dopp: 42.91 ml | |LVOT Vmax: 0.62 m/s | |LVOT Vmean: 0.47 m/s | |LVOT VTI: 10.45 cm | |MV A Jazlyn: 0.76 m/s | |MV DecT: 195.04 ms | |MV E Jazlyn: 0.93 m/s | |MV E/A Ratio: 1.21 | |E/E' Av.53 | |E' Av.20 m/s | |E/E' Lat: 4.07 | |E/E' Sept: 5.10 | |E' Lat: 0.22 m/s | |E' Sept: 0.18 m/s | |P Vein D: 0.24 m/s | |P Vein S/D Ratio: 2.65 | |P Vein S: 0.64 m/s | |HR: 102 BPM | |PV maxP.57 mmHg | |PV meanP.30 mmHg | |PV Vmax: 0.80 m/s | |PV Vmean: 0.53 m/s | |PV VTI: 13.82 cm | |PV maxP.32 mmHg | |PV Vmax: 1.03 m/s | |RAP: 10 mmHg | |RVSP: 52.24 mmHg | |TR maxP.24 mmHg | |TR Vmax: 3.24 m/s | | | |Under Trimmer: | |Authenticated by: Alan Villanueva MD | |Report Date/Time: 10-18-2015 11:41:53 | | | |IMPRESSION: | |1. Possible mobile vegetation attached to the posterior mitral valve leaflet. This is a new finding vs prior Echo. Discussed with ICU physician. | |2. Moderate, mobile vegetation attached to the septal tricuspid valve leaflet. | + + Culture, Blood (10/18/2015 8:00 AM PDT) + + | Specimen | + + | Blood specimen | | (specimen) | + + + + + | Narrative | Performed At | + + + | Specimen Description BLOOD SPECIAL | EXTERNAL LAB | | REQUESTS LINE DRAW CULTURE | | | NO GROWTH 6 DAYS | | + + + + +---------+ + + | Performing | Address | City/State/Zipcode | Phone Number | | Organization | | | | + +---------+ + + | EXTERNAL LAB | | | | + +---------+ + + XR Abdomen AP (10/18/2015 6:04 AM PDT) + + | Specimen | + + | | + + + + + | Impressions | Performed At | + + + | 1. Nonspecific nonobstructed bowel gas pattern. 2. | | | Nasogastric tube, as above. | | + + + + + + | Narrative | Performed At | + + + | [facility] XR ABDOMEN 1 VIEW 10/18/2015 6:04 AM HISTORY: | | | Abdominal pain. TECHNIQUE: Supine views of the abdomen, numbering | | | two. COMPARISON: Abdominal radiograph October 11, 2015. | | | FINDINGS: No free intraperitoneal air seen. A nasogastric tube is | | | identified, the tip overlying the gastric body. Some gas is seen | | | within a nondistended bowel loop in the mid lower abdomen. A small | | | amount of gas seen within nondistended small bowel in the mid lower | | | abdomen. No pathologic calcifications are observed. | | + + + + + | Procedure Note | + + | Elmer, Rad Conversion - 11/01/2018 7:23 PM PDT YANG RIDLEYJHON ABDOMEN 1 VIEW10/18/2015 | | 6:04 AM HISTORY:Abdominal pain. TECHNIQUE:Supine views of the abdomen, numbering two. | | COMPARISON:Abdominal radiograph October 11, 2015. FINDINGS:No free intraperitoneal air | | seen. A nasogastric tube is identified, the tip overlying the gastric body. Some gas is | | seen within a nondistended bowel loop in the mid lower abdomen. A small amount of gas | | seen within nondistended small bowel in the mid lower abdomen. No pathologic | | calcifications are observed. IMPRESSION: 1. Nonspecific nonobstructed bowel gas | | pattern. 2. Nasogastric tube, as above. Electronically signed by Grady Kumar MD on | | 10/18/2015 7:43 AM | | | |COMPARISON: | |Abdominal radiograph October 11, 2015. | | | |FINDINGS: | |No free intraperitoneal air seen. A nasogastric tube is identified, the tip overlying the g astric body. Some gas is seen within a nondistended bowel loop in the mid lower abdomen. A s mall amount of gas seen within nondistended small bowel in the mid | |lower abdomen. No pathologic calcifications are observed. | | | | | | | |IMPRESSION: | |1. Nonspecific nonobstructed bowel gas pattern. | | | |2. Nasogastric tube, as above. | | | | | + + External Lab: DEON (10/18/2015 5:11 AM PDT) + + + + + + | Component | Value | Ref Range | Performed | Pathologist | | | | | At | Signature | + + + + + + | WBC | 11.38 (H)Comment: | 3.80 - 11.00 | EXTERNAL | | | | Testing performed at | K/uL | LAB | | | | [facility];[address];[place] [address] | | | | + + + + + + | Non- | 2.91 (L)Comment: Testing | 4.20 - 5.70 | EXTERNAL | | | Red Blood | performed at [facility];[address] | M/uL | LAB | | | Cells | [address];[place] | | | | | Counted | [id number] | | | | + + + + + + | Hemoglobin | 8.3 (L)Comment: Testing | 13.2 - 17.0 | EXTERNAL | | | | performed at [facility];888 | g/dL | LAB | | | | [address];[place] | | | | | | [address] | | | | + + + + + + | Hematocrit, | 25.7 (L)Comment: Testing | 39.0 - 50.0 % | EXTERNAL | | | POC | performed at [facility];[address] | | LAB | | | | [address];[place] | | | | | | [address] | | | | + + + + + + | MCV | 88.3Comment: Testing | 80.0 - 100.0 fl | EXTERNAL | | | | performed at [facility];[address] | | LAB | | | [address];[place] | | | | | | [address] | | | | + + + + + + | MCH | 28.7Comment: Testing | 27.0 - 34.0 pg | EXTERNAL | | | | performed at [facility];[address] | | LAB | | | [address];[place] | | | | | | [address] | | | | + + + + + + | MCHC | 32.5Comment: Testing | 32.0 - 35.5 | EXTERNAL | | | | performed at [facility];888 | g/dL | LAB | | | | [address];[place] | | | | | | [address] | | | | + + + + + + | RDW-CV | 52.5Comment: Testing | 37 - 53 fl | EXTERNAL | | | | performed at [facility];[address] | | LAB | | | [address];[place] | | | | | | [address] | | | | + + + + + + | Platelet | 204Comment: Testing | 150 - 400 K/uL | EXTERNAL | | | Count | performed at [facility];[address] | | LAB | | | Plasma | [address];[place] | | | | | | [address] | | | | + + + + + + | MPV | 7.8Comment: Testing | fl | EXTERNAL | | | | performed at [facility];[address] | | LAB | | | [address];[place] | | | | | | [address] | | | | + + + + + + | Differentia | AUTOMATEDComment: | | EXTERNAL | | | l Type | Testing performed at | | LAB | | | | [facility];[address];[place] [address] | | | | + + + + + + | % Segmented | 87.02Comment: Testing | % | EXTERNAL | | | | performed at [facility];[address] | | LAB | | | Neutrophils | [address];[place] | | | | | | [address] | | | | + + + + + + | % | 4.44Comment: Testing | % | EXTERNAL | | | Lymphocytes | performed at [facility];[address] | | LAB | | | [address];[place] | | | | | | [address] | | | | + + + + + + | % Monocytes | 5.61Comment: Testing | % | EXTERNAL | | | | performed at [facility];[address] | | LAB | | | | [address];[place] | | | | | | [address] | | | | + + + + + + | % | 1.97Comment: Testing | % | EXTERNAL | | | Eosinophils | performed at [facility];[address] | | LAB | | | | [address];[place] | | | | | | [address] | | | | + + + + + + | % Basophils | 0.96Comment: Testing | % | EXTERNAL | | | | performed at [facility];[address] | | LAB | | | | [address];[place] | | | | | | [address] | | | | + + + + + + | Absolute | 9.90 (H)Comment: Testing | 1.90 - 7.40 | EXTERNAL | | | Segmented | performed at [facility];[address] | K/uL | LAB | | | Neutrophils | [address];[place] | | | | | | [address] | | | | + + + + + + | Absolute | 0.51 (L)Comment: Testing | 1.00 - 3.90 | EXTERNAL | | | Lymphocytes | performed at [facility];[address] | K/uL | LAB | | | | [address];[place] | | | | | | [address] | | | | + + + + + + | Absolute | 0.64Comment: Testing | 0.00 - 0.80 | EXTERNAL | | | Monocytes | performed at [facility];[address] | K/uL | LAB | | | | [address];[place] | | | | | | [address] | | | | + + + + + + | Absolute | 0.22Comment: Testing | 0.00 - 0.50 | EXTERNAL | | | Eosinophils | performed at [facility];[address] | K/uL | LAB | | | | [address];[place] | | | | | | [address] | | | | + + + + + + | Absolute | 0.11 (H)Comment: Testing | 0.00 - 0.10 | EXTERNAL | | | Basophils | performed at [facility];[address] | K/uL | LAB | | | | [address];[place] | | | | | | [address] | | | | + + + + + + | RBC | NORMAL PLT MORPHComment: | | EXTERNAL | | | Morphology | 1+ANISO1+POIKTesting | | LAB | | | | performed at [facility];[address] | | | | | [address];[place] | | | | | | [address] | | | | | |POIK | | | | | |Testing performed at [facility];[address];[place] [address] | | | | | | | | | | + + + + + + | Platelet | ADEQUATEComment: Testing | | EXTERNAL | | | Estimate | performed at [facility];[address] | | LAB | | | | [address];[place] | | | | | | [address] | | | | + + + + + + | Differentia | SLIDE SCANNED, AGREES | | EXTERNAL | | | l Comments | WITH AUTOMATED | | LAB | | | | RESULTS.Comment: Testing | | | | | | performed at [facility];[address] | | | | | | [address];[place] | | | | | | [address] | | | | + + + + + + + + | Specimen | + + | Blood specimen | | (specimen) | + + + +---------+ + + | Performing | Address | City/State/Zipcode | Phone Number | | Organization | | | | + +---------+ + + | EXTERNAL LAB | | | | + +---------+ + + Phosphorus (10/18/2015 5:11 AM PDT) + + + + + + | Component | Value | Ref Range | Performed | Pathologist | | | | | At | Signature | + + + + + + | PHOSPHORUS | 5.5 (H)Comment: Testing | 2.3 - 4.8 mg/dL | EXTERNAL | | | | performed at [facility];[address] | | LAB | | | | [address];[place] | | | | | | [address] | | | | + + + + + + + + | Specimen | + + | Blood specimen | | (specimen) | + + + +---------+ + + | Performing | Address | City/State/Zipcode | Phone Number | | Organization | | | | + +---------+ + + | EXTERNAL LAB | | | | + +---------+ + + Magnesium (10/18/2015 5:11 AM PDT) + + + + + + | Component | Value | Ref Range | Performed | Pathologist | | | | | At | Signature | + + + + + + | Magnesium | 2.0Comment: Testing | 1.7 - 2.4 mg/dL | EXTERNAL | | | | performed at [facility] | | LAB | | | | [address];[place] | | | | | | [address] | | | | + + + + + + + + | Specimen | + + | Blood specimen | | (specimen) | + + + +---------+ + + | Performing | Address | City/State/Zipcode | Phone Number | | Organization | | | | + +---------+ + + | EXTERNAL LAB | | | | + +---------+ + + Hepatic Function Panel (10/18/2015 5:11 AM PDT) + + + + + + | Component | Value | Ref Range | Performed | Pathologist | | | | | At | Signature | + + + + + + | Protein, | 5.9 (L)Comment: Testing | 6.3 - 8.2 g/dL | EXTERNAL | | | Total | performed at [facility];[address] | | LAB | | | [address];[place] | | | | | | [address] | | | | + + + + + + | Albumin | 1.4 (L)Comment: Testing | 3.6 - 5.0 g/dL | EXTERNAL | | | | performed at [facility];[address] | | LAB | | | [address];[place] | | | | | | [address] | | | | + + + + + + | Bilirubin | 2.1 (H)Comment: Testing | 0.1 - 1.5 mg/dL | EXTERNAL | | | Total | performed at [facility];[address] | | LAB | | | [address];[place] | | | | | | [address] | | | | + + + + + + | Bilirubin | 0.6 (H)Comment: Testing | 0.0 - 0.3 mg/dL | EXTERNAL | | | Direct | performed at [facility];[address] | | LAB | | | [address];[place] | | | | | | [address] | | | | + + + + + + | ALP, | 80Comment: Testing | 35 - 115 U/L | EXTERNAL | | | External | performed at [facility];[address] | | LAB | | | [address];[place] | | | | | | [address] | | | | + + + + + + | AST | 26Comment: Testing | 10 - 45 U/L | EXTERNAL | | | | performed at [facility];[address] | | LAB | | | | [address];[place] | | | | | | [address] | | | | + + + + + + | ALT | 17Comment: Testing | 10 - 65 U/L | EXTERNAL | | | | performed at [facility];[address] | | LAB | | | [address];[place] | | | | | | [address] | | | | + + + + + + + + | Specimen | + + | | + + + +---------+ + + | Performing | Address | City/State/Zipcode | Phone Number | | Organization | | | | + +---------+ + + | EXTERNAL LAB | | | | + +---------+ + + Basic Metabolic Panel (10/18/2015 5:11 AM PDT) + + + + + + | Component | Value | Ref Range | Performed | Pathologist | | | | | At | Signature | + + + + + + | Na | 133 (L)Comment: Testing | 135 - 145 | EXTERNAL | | | | performed at [facility];888 | mmol/L | LAB | | | | [address];[place] | | | | | | [address] | | | | + + + + + + | K | 3.6Comment: Testing | 3.5 - 4.9 | EXTERNAL | | | | performed at [facility];888 | mmol/L | LAB | | | | [address];[place] | | | | | | [address] | | | | + + + + + + | Cl | 100Comment: Testing | 99 - 109 mmol/L | EXTERNAL | | | | performed at [facility];[address] | | LAB | | | | [address];[place] | | | | | | [address] | | | | + + + + + + | CO2 | 20 (L)Comment: Testing | 23 - 32 mmol/L | EXTERNAL | | | | performed at [facility];[address] | | LAB | | | | [address];[place] | | | | | | [address] | | | | + + + + + + | Anion Gap | 16Comment: Testing | 5 - 20 mmol/L | EXTERNAL | | | | performed at [facility];[address] | | LAB | | | | [address];[place] | | | | | | [address] | | | | + + + + + + | Glucose, | 111 (H)Comment: Testing | 65 - 99 mg/dL | EXTERNAL | | | Fasting | performed at [facility];[address] | | LAB | | | | [address];[place] | | | | | | [address] | | | | + + + + + + | BUN | 47 (H)Comment: Testing | 8 - 25 mg/dL | EXTERNAL | | | | performed at [facility];[address] | | LAB | | | | [address];[place] | | | | | | [address] | | | | + + + + + + | Creatinine | 3.6 (H)Comment: Testing | 0.70 - 1.30 | EXTERNAL | | | | performed at [facility];888 | mg/dL | LAB | | | | [address];[place] | | | | | | [address] | | | | + + + + + + | BUN/Creatin | 13Comment: Testing | | EXTERNAL | | | ine Ratio | performed at [facility];[address] | | LAB | | | | [address];[place] | | | | | | [address] | | | | + + + + + + | Calcium | 7.6 (L)Comment: Testing | 8.5 - 10.5 | EXTERNAL | | | | performed at [facility];888 | mg/dL | LAB | | | | [address];[place] | | | | | | [address] | | | | + + + + + + | Estimated | 21 (L)Comment: GFR <60: | mL/min/1.73m2 | EXTERNAL | | | GFR | CHRONIC KIDNEY DISEASE, | | LAB | | | | IF FOUND OVER A 3 MONTH | | | | | | PERIOD.GFR <15: KIDNEY | | | | | | FAILURE.FOR | | | | | | AMERICANS, MULTIPLY THE | | | | | | CALCULATED GFR BY | | | | | | 1.210.Testing performed | | | | | | at [facility];[address];[place] [address] | | | | + + + + + + + + | Specimen | + + | Blood specimen | | (specimen) | + + + +---------+ + + | Performing | Address | City/State/Zipcode | Phone Number | | Organization | | | | + +---------+ + + | EXTERNAL LAB | | | | + +---------+ + + Lactate Dehydrogenase (10/17/2015 10:13 AM PDT) + + + + + + | Component | Value | Ref Range | Performed | Pathologist | | | | | At | Signature | + + + + + + | LDH TOTAL | 266 (H)Comment: Testing | 115 - 225 U/L | EXTERNAL | | | | performed at [facility], [address] | | LAB | | | | [address], | | | | | | [place] [address] | | | | + + + + + + + + | Specimen | + + | Blood specimen | | (specimen) | + + + +---------+ + + | Performing | Address | City/State/Zipcode | Phone Number | | Organization | | | | + +---------+ + + | EXTERNAL LAB | | | | + +---------+ + + Haptoglobin (10/17/2015 10:13 AM PDT) + + + + + + | Component | Value | Ref Range | Performed | Pathologist | | | | | At | Signature | + + + + + + | Haptoglobin | 201Comment: Testing | 40 - 240 mg/dL | EXTERNAL | | | | performed at [facility], [address] | | LAB | | | | [address] | | | | | | [place] [address] | | | | + + + + + + + + | Specimen | + + | Blood specimen | | (specimen) | + + + +---------+ + + | Performing | Address | City/State/Zipcode | Phone Number | | Organization | | | | + +---------+ + + | EXTERNAL LAB | | | | + +---------+ + + Bilirubin, Direct (10/17/2015 10:13 AM PDT) + + + + + + | Component | Value | Ref Range | Performed | Pathologist | | | | | At | Signature | + + + + + + | Bilirubin | 0.5 (H)Comment: Testing | 0.0 - 0.3 mg/dL | EXTERNAL | | | Direct | performed at [facility], [address] | | LAB | | | | [address], | | | | | | [place] [address] | | | | + + + + + + + + | Specimen | + + | Blood specimen | | (specimen) | + + + +---------+ + + | Performing | Address | City/State/Zipcode | Phone Number | | Organization | | | | + +---------+ + + | EXTERNAL LAB | | | | + +---------+ + + Bilirubin, total (10/17/2015 10:13 AM PDT) + + + + + + | Component | Value | Ref Range | Performed | Pathologist | | | | | At | Signature | + + + + + + | Bilirubin | 1.7 (H)Comment: Testing | 0.1 - 1.5 mg/dL | EXTERNAL | | | Total | performed at [facility], [address] | | LAB | | | | [address], | | | | | | [place] [address] | | | | + + + + + + + + | Specimen | + + | Blood specimen | | (specimen) | + + + +---------+ + + | Performing | Address | City/State/Zipcode | Phone Number | | Organization | | | | + +---------+ + + | EXTERNAL LAB | | | | + +---------+ + + Retic Count (10/17/2015 10:02 AM PDT) + + + + + + | Component | Value | Ref Range | Performed | Pathologist | | | | | At | Signature | + + + + + + | % | 7.8 (H)Comment: Testing | 0.4 - 2.7 % | EXTERNAL | | | Reticulocyt | performed at [facility], [address] | | LAB | | | e Count | [facility], | | | | | | [place] [address] | | | | + + + + + + + + | Specimen | + + | | + + + +---------+ + + | Performing | Address | City/State/Zipcode | Phone Number | | Organization | | | | + +---------+ + + | EXTERNAL LAB | | | | + +---------+ + + External Lab: CBC (10/17/2015 10:02 AM PDT) + + + + + + | Component | Value | Ref Range | Performed | Pathologist | | | | | At | Signature | + + + + + + | WBC | 12.06 (H)Comment: | 3.80 - 11.00 | EXTERNAL | | | | Testing performed at | K/uL | LAB | | | | [facility], [address] [facility] | | | | | | [place] | | | | | | [address] | | | | + + + + + + | Non- | 3.12 (L)Comment: Testing | 4.20 - 5.70 | EXTERNAL | | | Red Blood | performed at [facility], [address] | [address]/uL | LAB | | | Cells | [address] [facility] [address], | | | | | Counted | [place] [address] | | | | + + + + + + | Hemoglobin | 8.9 (L)Comment: Testing | 13.2 - 17.0 | EXTERNAL | | | | performed at [facility], [address] | g/dL | LAB | | | | [address], | | | | | | [place] [address] | | | | + + + + + + | Hematocrit, | 27.7 (L)Comment: Testing | 39.0 - 50.0 % | EXTERNAL | | | POC | performed at [facility], [address] | | LAB | | | | [address], | | | | | | [place] [address] | | | | + + + + + + | MCV | 88.8Comment: Testing | 80.0 - 100.0 fl | EXTERNAL | | | | performed at [facility], [address] | | LAB | | | | [address], | | | | | | [place] [address] | | | | + + + + + + | MCH | 28.6Comment: Testing | 27.0 - 34.0 pg | EXTERNAL | | | | performed at [facility], [address] | | LAB | | | | [address], | | | | | | [place] [address] | | | | + + + + + + | MCHC | 32.2Comment: Testing | 32.0 - 35.5 | EXTERNAL | | | | performed at [facility], [address] | g/dL | LAB | | | | [address], | | | | | | [place] [address] | | | | + + + + + + | RDW-CV | 48.6Comment: Testing | 37 - 53 fl | EXTERNAL | | | | performed at [facility], [address] | | LAB | | | | [address], | | | | | | [place] [address] | | | | + + + + + + | Platelet | 203Comment: Testing | 150 - 400 K/uL | EXTERNAL | | | Count | performed at [facility], [address] | | LAB | | | Plasma | [address], | | | | | | [place], [place] [address] | | | | + + + + + + | MPV | 8.4Comment: Testing | fl | EXTERNAL | | | | performed at [facility], [address] | | LAB | | | | [address], | | | | | | [place], [place] [address] | | | | + + + + + + | Differentia | MANUALComment: Testing | | EXTERNAL | | | l Type | performed at [facility], [address] | | LAB | | | | [address], | | | | | | [place], [place] [address] | | | | + + + + + + | Segmented | 86Comment: Testing | % | EXTERNAL | | | Neutrophils | performed at [facility], [address] | | LAB | | | Manual | [address], | | | | | | [place] [address] | | | | + + + + + + | % Bands | 2Comment: Testing | % | EXTERNAL | | | | performed at [facility], [address] | | LAB | | | | [address], | | | | | | [place] [address] | | | | + + + + + + | Lymphocytes | 7Comment: Testing | % | EXTERNAL | | | Manual | performed at [facility], [address] | | LAB | | | | [address], | | | | | | [place] [address] | | | | + + + + + + | Monocytes | 4Comment: Testing | % | EXTERNAL | | | Manual | performed at [facility], [address] | | LAB | | | | [address], | | | | | | [place] [address] | | | | + + + + + + | Eosinophils | 1Comment: Testing | % | EXTERNAL | | | Manual | performed at [facility], [address] | | LAB | | | | [address], | | | | | | [place] [address] | | | | + + + + + + | Absolute | 10.38 (H)Comment: | 1.90 - 7.40 | EXTERNAL | | | Neutrophils | Testing performed at | K/uL | LAB | | | | [facility], [address] [facility] | | | | | | [place] | | | | | | [address] | | | | + + + + + + | Bands | 0.24 (H)Comment: Testing | 0.00 - 0.20 | EXTERNAL | | | Manual | performed at [facility], [address] | K/uL | LAB | | | | [address], | | | | | | [place] [address] | | | | + + + + + + | Absolute | 0.84 (L)Comment: Testing | 1.00 - 3.90 | EXTERNAL | | | Lymphocytes | performed at [facility], [address] | K/uL | LAB | | | | [address], | | | | | | [place] [address] | | | | + + + + + + | Absolute | 0.48Comment: Testing | 0.00 - 0.80 | EXTERNAL | | | Monocytes | performed at [facility], [address] | K/uL | LAB | | | | [address], | | | | | | [place] [address] | | | | + + + + + + | Absolute | 0.12Comment: Testing | 0.00 - 0.50 | EXTERNAL | | | Eosinophils | performed at [facility], [address] | K/uL | LAB | | | | [address], | | | | | | [place] [address] | | | | + + + + + + | RBC | 1+Comment: ANISONORMAL | | EXTERNAL | | | Morphology | PLT MORPHTesting | | LAB | | | | performed at [facility], [address] | | | | | | [address], | | | | | | [place] [address] | | | | | | | | | | + + + + + + + + | Specimen | + + | Blood specimen | | (specimen) | + + + +---------+ + + | Performing | Address | City/State/Zipcode | Phone Number | | Organization | | | | + +---------+ + + | EXTERNAL LAB | | | | + +---------+ + + XR Chest 1 Vw (10/17/2015 5:29 AM PDT) + + | Specimen | + + | | + + + + + | Impressions | Performed At | + + + | 1. Stable support equipment 2. Stable patchy and nodular | | | inflammatory infiltrates throughout all lung barry, with stable | | | bibasilar pleural effusions | | + + + + + + | Narrative | Performed At | + + + | History: 30 years old Male with respiratory failure, pain. Sepsis. | | | Technique: Portable AP upright radiographic examination of the | | | chest, obtained at 5:02 on 17 October 2015. Prior study for | | | comparison -- 5:07. 14 October 2015. Findings: Cardiomediastinum | | | stable mediastinum without cardiomegaly. Support equipment | | | endotracheal tube, right IJ catheter, enteric tube-stable and in | | | radiographically appropriate distributions. EKG leads and support | | | tubing noted also. PICC line, unchanged Lungs are stably | | | hypoinflated with bilateral small pleural effusions. Patchy and | | | nodular infiltrative disease throughout all lung distributions, not | | | convincingly changed. Bones and soft tissues stable. | | + + + + + | Procedure Note | + + | Elmer, Rad Conversion - 11/01/2018 7:23 PM PDT History: 30 years old Male with | | respiratory failure, pain. Sepsis. Technique: Portable AP upright radiographic | | examination of the chest, obtained at 5:02 on 17 October 2015. Prior study for comparison | | -- 5:07. 14 October 2015. Findings: Cardiomediastinum stable mediastinum without | | cardiomegaly. Support equipment endotracheal tube, right IJ catheter, enteric | | tube-stable and in radiographically appropriate distributions. EKG leads and support | | tubing noted also. PICC line, unchanged Lungs are stably hypoinflated with bilateral | | small pleural effusions. Patchy and nodular infiltrative disease throughout all lung | | distributions, not convincingly changed. Bones and soft tissues stable. IMPRESSION: 1. | | Stable support equipment 2. Stable patchy and nodular inflammatory infiltrates | | throughout all lung barry, with stable bibasilar pleural effusions Electronically | | signed by Boogie Emery MD on 10/17/2015 7:15 AM | |Bones and soft tissues stable. | | | |IMPRESSION: | | | |1. Stable support equipment | | | |2. Stable patchy and nodular inflammatory infiltrates throughout all lung barry, with stab le bibasilar pleural effusions | | | | | + + External Lab: CBC (10/17/2015 3:35 AM PDT) + + +---- + + + | Component | Value | Ref Range | Performed | Pathologist | | | | | At | Signature | + + +---- + + + | WBC | 10.13Comment: Testing | 3.8 0 - 11.00 | EXTERNAL | | | | performed at [facility], [address] | K/[address] L | LAB | | | | [address] [place], | | | | | | [place] [id number] | | | | + + +---- + + + | Non- | 2.10 (L)Comment: Testing | 4.2 0 - 5.70 | EXTERNAL | | | Red Blood | performed at [facility], [address] | M/[address] | LAB | | | Cells | [address], | | | | | Counted | [place] [id number] | | | | + + +---- + + + | Hemoglobin | 6.1 (LL)Comment: RESULT | 13. 2 - 17.0 | EXTERNAL | | | | READ BACK BY: JORDAN | g/lenin L | LAB | | | | FLOOR SUPERVISOR AT 0509 ON | | | | | | 10/17/2015 TH Testing | | | | | | performed at [facility], [address] | | | | | | [facility] | | | | | | [place] [id number] | | | | + + +---- + + + | Hematocrit, | 19.0 (LL)Comment: RESULT | 39. 0 - 50.0 % | EXTERNAL | | | POC | READ BACK BY: | | LAB | | | | JORDAN [facility] ICU AT | | | | | | 0509 ON 10/17/2015 TH | | | | | | Testing performed at | | | | | | [facility], [address] [facility] | | | | | | [place] | | | | | | [address] | | | | + + +---- + + + | MCV | 90.3Comment: Testing | 80. 0 - 100.0 fl | EXTERNAL | | | | performed at [facility], [address] | | LAB | | | | [address], | | | | | | [place] [address] | | | | + + +---- + + + | MCH | 29.1Comment: Testing | 27. 0 - 34.0 pg | EXTERNAL | | | | performed at [facility], [address] | | LAB | | | | [address], | | | | | | [place] [address] | | | | + + +---- + + + | MCHC | 32.3Comment: Testing | 32. 0 - 35.5 | EXTERNAL | | | | performed at [facility], [address] | g/d L | LAB | | | | [address], | | | | | | [place] [address] | | | | + + +---- + + + | RDW-CV | 55.1 (H)Comment: Testing | 37 - 53 fl | EXTERNAL | | | | performed at [facility], [address] | | LAB | | | | [address], | | | | | | [place] [address] | | | | + + +---- + + + | Platelet | 186Comment: Testing | 150 - 400 K/uL | EXTERNAL | | | Count | performed at [facility], [address] | | LAB | | | Plasma | [address], | | | | | | [place] [address] | | | | + + +---- + + + | MPV | 8.3Comment: Testing | fl | EXTERNAL | | | | performed at [facility], [address] | | LAB | | | | [facility] [address], | | | | | | [place] [address] | | | | + + +---- + + + | Differentia | AUTOMATEDComment: | | EXTERNAL | | | l Type | Testing performed at | | LAB | | | | [facility], [address] | | | | | | [place] | | | | | | [address] | | | | + + +---- + + + | % Segmented | 84.33Comment: Testing | % | EXTERNAL | | | | performed at [facility], [address] | | LAB | | | Neutrophils | [address], | | | | | | [place] [address] | | | | + + +---- + + + | % | 6.71Comment: Testing | % | EXTERNAL | | | Lymphocytes | performed at [facility], [address] | | LAB | | | | [address], | | | | | | [place] [address] | | | | + + +---- + + + | % Monocytes | 6.21Comment: Testing | % | EXTERNAL | | | | performed at [facility], [address] | | LAB | | | | [address], | | | | | | [place] [address] | | | | + + +---- + + + | % | 2.22Comment: Testing | % | EXTERNAL | | | Eosinophils | performed at [facility], [address] | | LAB | | | | [address], | | | | | | [place] [address] | | | | + + +---- + + + | % Basophils | 0.53Comment: Testing | % | EXTERNAL | | | | performed at [facility], [address] | | LAB | | | | [address], | | | | | | [place] [address] | | | | + + +---- + + + | Absolute | 8.54 (H)Comment: Testing | 1.9 0 - 7.40 | EXTERNAL | | | Segmented | performed at [facility], [address] | [address] | LAB | | | Neutrophils | [address], | | | | | | [place] [address] | | | | + + +---- + + + | Absolute | 0.68 (L)Comment: Testing | 1.0 0 - 3.90 | EXTERNAL | | | Lymphocytes | performed at [facility], [address] | K/[address] | LAB | | | | [address], | | | | | | [place] [address] | | | | + + +---- + + + | Absolute | 0.63Comment: Testing | 0.0 0 - 0.80 | EXTERNAL | | | Monocytes | performed at [facility], [address] | K/u L | LAB | | | | [address], | | | | | | [place] [address] | | | | + + +---- + + + | Absolute | 0.22Comment: Testing | 0.0 0 - 0.50 | EXTERNAL | | | Eosinophils | performed at [facility], [address] | K/u L | LAB | | | | [address], | | | | | | [place] [address] | | | | + + +---- + + + | Absolute | 0.05Comment: Testing | 0.0 0 - 0.10 | EXTERNAL | | | Basophils | performed at [facility], [address] | K/u L | LAB | | | | [address], | | | | | | [place] [address] | | | | + + +---- + + + | RBC | NORMAL PLT MORPHComment: | | EXTERNAL | | | Morphology | 1+ANISO1+HYPOTesting | | LAB | | | | performed at [facility], [address] | | | | | | [facility], | | | | | | [place] [address] | | | | | |HYPO | | | | | |Testing performed at [facility], [address] [facility], [place] [address] | | | | | | | | | | + + +---- + + + + + | Specimen | + + | Blood specimen | | (specimen) | + + + +---------+ + + | Performing | Address | City/State/Zipcode | Phone Number | | Organization | | | | + +---------+ + + | EXTERNAL LAB | | | | + +---------+ + + Phosphorus (10/17/2015 3:35 AM PDT) + + + + + + | Component | Value | Ref Range | Performed | Pathologist | | | | | At | Signature | + + + + + + | PHOSPHORUS | 5.7 (H)Comment: Testing | 2.3 - 4.8 mg/dL | EXTERNAL | | | | performed at [facility], [address] | | LAB | | | | [address], | | | | | | [place] [address] | | | | + + + + + + + + | Specimen | + + | Blood specimen | | (specimen) | + + + +---------+ + + | Performing | Address | City/State/Zipcode | Phone Number | | Organization | | | | + +---------+ + + | EXTERNAL LAB | | | | + +---------+ + + Magnesium (10/17/2015 3:35 AM PDT) + + + + + + | Component | Value | Ref Range | Performed | Pathologist | | | | | At | Signature | + + + + + + | Magnesium | 2.1Comment: Testing | 1.7 - 2.4 mg/dL | EXTERNAL | | | | performed at [facility], [address] | | LAB | | | | [address], | | | | | | [place] [address] | | | | + + + + + + + + | Specimen | + + | Blood specimen | | (specimen) | + + + +---------+ + + | Performing | Address | City/State/Zipcode | Phone Number | | Organization | | | | + +---------+ + + | EXTERNAL LAB | | | | + +---------+ + + Hepatic Function Panel (10/17/2015 3:35 AM PDT) + + + + + + | Component | Value | Ref Range | Performed | Pathologist | | | | | At | Signature | + + + + + + | Protein, | 5.7 (L)Comment: Testing | 6.3 - 8.2 g/dL | EXTERNAL | | | Total | performed at [facility], [address] | | LAB | | | | [address], | | | | | | [place] [address] | | | | + + + + + + | Albumin | 1.4 (L)Comment: Testing | 3.6 - 5.0 g/dL | EXTERNAL | | | | performed at [facility], [address] | | LAB | | | | [address], | | | | | | [place] [address] | | | | + + + + + + | Bilirubin | 2.0 (H)Comment: Testing | 0.1 - 1.5 mg/dL | EXTERNAL | | | Total | performed at [facility], [address] | | LAB | | | | [address], | | | | | | [place] [address] | | | | + + + + + + | Bilirubin | 0.5 (H)Comment: Testing | 0.0 - 0.3 mg/dL | EXTERNAL | | | Direct | performed at [facility], [address] | | LAB | | | | [address], | | | | | | [place] [address] | | | | + + + + + + | ALP, | 69Comment: Testing | 35 - 115 U/L | EXTERNAL | | | External | performed at [facility], [address] | | LAB | | | | [address], | | | | | | [place] [address] | | | | + + + + + + | AST | 21Comment: Testing | 10 - 45 U/L | EXTERNAL | | | | performed at [facility], [address] | | LAB | | | | [address], | | | | | | [place] [address] | | | | + + + + + + | ALT | 16Comment: Testing | 10 - 65 U/L | EXTERNAL | | | | performed at [facility], [address] | | LAB | | | | [address], | | | | | | [place] [address] | | | | + + + + + + + + | Specimen | + + | | + + + +---------+ + + | Performing | Address | City/State/Zipcode | Phone Number | | Organization | | | | + +---------+ + + | EXTERNAL LAB | | | | + +---------+ + + Basic Metabolic Panel (10/17/2015 3:35 AM PDT) + + + + + + | Component | Value | Ref Range | Performed | Pathologist | | | | | At | Signature | + + + + + + | Na | 135Comment: Testing | 135 - 145 | EXTERNAL | | | | performed at [facility], [address] | mmol/L | LAB | | | | [address], | | | | | | [place] [address] | | | | + + + + + + | K | 3.8Comment: Testing | 3.5 - 4.9 | EXTERNAL | | | | performed at [facility], [address] | mmol/L | LAB | | | | [address], | | | | | | [place] [address] | | | | + + + + + + | Cl | 101Comment: Testing | 99 - 109 mmol/L | EXTERNAL | | | | performed at [facility], [address] | | LAB | | | | [address], | | | | | | [place] [address] | | | | + + + + + + | CO2 | 19 (L)Comment: Testing | 23 - 32 mmol/L | EXTERNAL | | | | performed at [facility], [address] | | LAB | | | | [address], | | | | | | [place] [address] | | | | + + + + + + | Anion Gap | 19Comment: Testing | 5 - 20 mmol/L | EXTERNAL | | | | performed at [facility], [address] | | LAB | | | | [address], | | | | | | [place] [address] | | | | + + + + + + | Glucose, | 104 (H)Comment: Testing | 65 - 99 mg/dL | EXTERNAL | | | Fasting | performed at [facility], [address] | | LAB | | | | [address], | | | | | | [place] [address] | | | | + + + + + + | BUN | 73 (H)Comment: Testing | 8 - 25 mg/dL | EXTERNAL | | | | performed at [facility], [address] | | LAB | | | | [address], | | | | | | [place] [address] | | | | + + + + + + | Creatinine | 4.7 (H)Comment: Testing | 0.70 - 1.30 | EXTERNAL | | | | performed at [facility], [address] | mg/dL | LAB | | | | [address], | | | | | | [place] [address] | | | | + + + + + + | BUN/Creatin | 16Comment: Testing | | EXTERNAL | | | ine Ratio | performed at [facility], [address] | | LAB | | | | [address], | | | | | | [place] [address] | | | | + + + + + + | Calcium | 7.6 (L)Comment: Testing | 8.5 - 10.5 | EXTERNAL | | | | performed at [facility], [address] | mg/dL | LAB | | | | [address], | | | | | | [place] [address] | | | | + + + + + + | Estimated | 15 (L)Comment: GFR <60: | mL/min/1.73m2 | EXTERNAL | | | GFR | CHRONIC KIDNEY DISEASE, | | LAB | | | | IF FOUND OVER A 3 MONTH | | | | | | PERIOD.GFR <15: KIDNEY | | | | | | FAILURE.FOR | | | | | | AMERICANS, MULTIPLY THE | | | | | | CALCULATED GFR BY | | | | | | 1.210.Testing performed | | | | | | at [facility], [address] | | | | | | [address], | | | | | | [place] [address] | | | | + + + + + + + + | Specimen | + + | Blood specimen | | (specimen) | + + + +---------+ + + | Performing | Address | City/State/Zipcode | Phone Number | | Organization | | | | + +---------+ + + | EXTERNAL LAB | | | | + +---------+ + + External Lab: CBC (10/16/2015 3:28 AM PDT) + + + + + + | Component | Value | Ref Range | Performed | Pathologist | | | | | At | Signature | + + + + + + | WBC | 13.71 (H)Comment: | 3.80 - 11.00 | EXTERNAL | | | | Testing performed at | K/uL | LAB | | | | [facility], [address] [facility] | | | | | | [address], [place], [place] | | | | | | [address] | | | | + + + + + + | Non- | 2.39 (L)Comment: Testing | 4.20 - 5.70 | EXTERNAL | | | Red Blood | performed at [facility], [address] | [address]/uL | LAB | | | Cells | [address], | | | | | Counted | [place] [address] | | | | + + + + + + | Hemoglobin | 6.9 (LL)Comment: RESULT | 13.2 - 17.0 | EXTERNAL | | | | READ BACK BY: [facility] | g/dL | LAB | | | | ICU AT 0517 ON | | | | | | 10/16/2015 ICU TH | | | | | | Testing performed at | | | | | | [facility], [address] | | | | | | [place] | | | | | | [address] | | | | + + + + + + | Hematocrit, | 21.5 (L)Comment: Testing | 39.0 - 50.0 % | EXTERNAL | | | POC | performed at [facility], [address] | | LAB | | | | [address], | | | | | | [place] [address] | | | | + + + + + + | MCV | 89.7Comment: Testing | 80.0 - 100.0 fl | EXTERNAL | | | | performed at [facility], [address] | | LAB | | | | [address], | | | | | | [place] [address] | | | | + + + + + + | MCH | 28.9Comment: Testing | 27.0 - 34.0 pg | EXTERNAL | | | | performed at [facility], [address] | | LAB | | | | [address], | | | | | | [place] [address] | | | | + + + + + + | MCHC | 32.2Comment: Testing | 32.0 - 35.5 | EXTERNAL | | | | performed at [facility], [address] | g/dL | LAB | | | | [address], | | | | | | [place] [address] | | | | + + + + + + | RDW-CV | 51.6Comment: Testing | 37 - 53 fl | EXTERNAL | | | | performed at [facility], [address] | | LAB | | | | [address], | | | | | | [place], [place] [address] | | | | + + + + + + | Platelet | 164Comment: Testing | 150 - 400 K/uL | EXTERNAL | | | Count | performed at [facility], [address] | | LAB | | | Plasma | [address], | | | | | | [place], [place] [address] | | | | + + + + + + | MPV | 8.8Comment: Testing | fl | EXTERNAL | | | | performed at [facility], [address] | | LAB | | | | [address], | | | | | | [place] [address] | | | | + + + + + + | Differentia | MANUALComment: Testing | | EXTERNAL | | | l Type | performed at [facility], [address] | | LAB | | | | [address], | | | | | | [place] [address] | | | | + + + + + + | Segmented | 86Comment: Testing | % | EXTERNAL | | | Neutrophils | performed at [facility], [address] | | LAB | | | Manual | [address], | | | | | | [place] [address] | | | | + + + + + + | % Bands | 4Comment: Testing | % | EXTERNAL | | | | performed at [facility], [address] | | LAB | | | | [address], | | | | | | [place] [address] | | | | + + + + + + | Lymphocytes | 2Comment: Testing | % | EXTERNAL | | | Manual | performed at [facility], [address] | | LAB | | | | [address], | | | | | | [place] [address] | | | | + + + + + + | Monocytes | 7Comment: Testing | % | EXTERNAL | | | Manual | performed at [facility], [address] | | LAB | | | [address], | | | | | | [place] [address] | | | | + + + + + + | Eosinophils | 1Comment: Testing | % | EXTERNAL | | | Manual | performed at [facility], [address] | | LAB | | | | [address], | | | | | | [place] [address] | | | | + + + + + + | Absolute | 11.79 (H)Comment: | 1.90 - 7.40 | EXTERNAL | | | Neutrophils | Testing performed at | K/uL | LAB | | | | [facility], [address] | | | | | | [place] | | | | | | [address] | | | | + + + + + + | Bands | 0.55 (H)Comment: Testing | 0.00 - 0.20 | EXTERNAL | | | Manual | performed at [facility], [address] | [address] | LAB | | | | [address], | | | | | | [place] [address] | | | | + + + + + + | Absolute | 0.27 (L)Comment: Testing | 1.00 - 3.90 | EXTERNAL | | | Lymphocytes | performed at [facility], [address] | [address] | LAB | | | | [address], | | | | | | [place] [address] | | | | + + + + + + | Absolute | 0.96 (H)Comment: Testing | 0.00 - 0.80 | EXTERNAL | | | Monocytes | performed at [facility], [address] | [address] | LAB | | | | [address], | | | | | | [place] [address] | | | | + + + + + + | Absolute | 0.14Comment: Testing | 0.00 - 0.50 | EXTERNAL | | | Eosinophils | performed at [facility], [address] | [address] | LAB | | | | [address], | | | | | | [place] [address] | | | | + + + + + + | RBC | 1+Comment: ANISONORMAL | | EXTERNAL | | | Morphology | PLT MORPHTesting | | LAB | | | | performed at [facility], [address] | | | | | | [address], | | | | | | [place] [address] | | | | | | | | | | + + + + + + + + | Specimen | + + | Blood specimen | | (specimen) | + + + +---------+ + + | Performing | Address | City/State/Zipcode | Phone Number | | Organization | | | | + +---------+ + + | EXTERNAL LAB | | | | + +---------+ + + Phosphorus (10/16/2015 3:28 AM PDT) + + + + + + | Component | Value | Ref Range | Performed | Pathologist | | | | | At | Signature | + + + + + + | PHOSPHORUS | 3.6Comment: Testing | 2.3 - 4.8 mg/dL | EXTERNAL | | | | performed at [facility], [address] | | LAB | | | | [address], | | | | | | [place] [address] | | | | + + + + + + + + | Specimen | + + | Blood specimen | | (specimen) | + + + +---------+ + + | Performing | Address | City/State/Zipcode | Phone Number | | Organization | | | | + +---------+ + + | EXTERNAL LAB | | | | + +---------+ + + Magnesium (10/16/2015 3:28 AM PDT) + + + + + + | Component | Value | Ref Range | Performed | Pathologist | | | | | At | Signature | + + + + + + | Magnesium | 2.1Comment: Testing | 1.7 - 2.4 mg/dL | EXTERNAL | | | | performed at [facility], [address] | | LAB | | | | [address], | | | | | | [place] [address] | | | | + + + + + + + + | Specimen | + + | Blood specimen | | (specimen) | + + + +---------+ + + | Performing | Address | City/State/Zipcode | Phone Number | | Organization | | | | + +---------+ + + | EXTERNAL LAB | | | | + +---------+ + + Hepatic Function Panel (10/16/2015 3:28 AM PDT) + + + + + + | Component | Value | Ref Range | Performed | Pathologist | | | | | At | Signature | + + + + + + | Protein, | 5.9 (L)Comment: Testing | 6.3 - 8.2 g/dL | EXTERNAL | | | Total | performed at [facility], [address] | | LAB | | | | [address], | | | | | | [place] [address] | | | | + + + + + + | Albumin | 1.5 (L)Comment: Testing | 3.6 - 5.0 g/dL | EXTERNAL | | | | performed at [facility], [address] | | LAB | | | [address], | | | | | | [place] [address] | | | | + + + + + + | Bilirubin | 1.9 (H)Comment: Testing | 0.1 - 1.5 mg/dL | EXTERNAL | | | Total | performed at [facility], [address] | | LAB | | | | [address], | | | | | | [place] [address] | | | | + + + + + + | Bilirubin | 0.5 (H)Comment: Testing | 0.0 - 0.3 mg/dL | EXTERNAL | | | Direct | performed at [facility], [address] | | LAB | | | | [address], | | | | | | [place] [address] | | | | + + + + + + | ALP, | 72Comment: Testing | 35 - 115 U/L | EXTERNAL | | | External | performed at [facility], [address] | | LAB | | | | [address], | | | | | | [place] [address] | | | | + + + + + + | AST | 25Comment: Testing | 10 - 45 U/L | EXTERNAL | | | | performed at [facility], [address] | | LAB | | | | [address], | | | | | | [place] [address] | | | | + + + + + + | ALT | 18Comment: Testing | 10 - 65 U/L | EXTERNAL | | | | performed at [facility], [address] | | LAB | | | | [address], | | | | | | [place] [address] | | | | + + + + + + + + | Specimen | + + | | + + + +---------+ + + | Performing | Address | City/State/Zipcode | Phone Number | | Organization | | | | + +---------+ + + | EXTERNAL LAB | | | | + +---------+ + + Basic Metabolic Panel (10/16/2015 3:28 AM PDT) + + + + + + | Component | Value | Ref Range | Performed | Pathologist | | | | | At | Signature | + + + + + + | Na | 136Comment: Testing | 135 - 145 | EXTERNAL | | | | performed at [facility], [address] | mmol/L | LAB | | | | [address], | | | | | | [place] [address] | | | | + + + + + + | K | 4.0Comment: Testing | 3.5 - 4.9 | EXTERNAL | | | | performed at [facility], [address] | mmol/L | LAB | | | | [address], | | | | | | [place] [address] | | | | + + + + + + | Cl | 101Comment: Testing | 99 - 109 mmol/L | EXTERNAL | | | | performed at [facility], [address] | | LAB | | | | [address], | | | | | | [place] [address] | | | | + + + + + + | CO2 | 23Comment: Testing | 23 - 32 mmol/L | EXTERNAL | | | | performed at [facility], [address] | | LAB | | | | [address], | | | | | | [place] [address] | | | | + + + + + + | Anion Gap | 16Comment: Testing | 5 - 20 mmol/L | EXTERNAL | | | | performed at [facility], [address] | | LAB | | | | [address], | | | | | | [place] [address] | | | | + + + + + + | Glucose, | 100 (H)Comment: Testing | 65 - 99 mg/dL | EXTERNAL | | | Fasting | performed at [facility], [address] | | LAB | | | | [address], | | | | | | [place] [address] | | | | + + + + + + | BUN | 54 (H)Comment: Testing | 8 - 25 mg/dL | EXTERNAL | | | | performed at [facility], [address] | | LAB | | | | [address], | | | | | | [place] [address] | | | | + + + + + + | Creatinine | 3.9 (H)Comment: Testing | 0.70 - 1.30 | EXTERNAL | | | | performed at [facility], [address] | mg/dL | LAB | | | | [address], | | | | | | [place] [address] | | | | + + + + + + | BUN/Creatin | 14Comment: Testing | | EXTERNAL | | | ine Ratio | performed at [facility], [address] | | LAB | | | | [address], | | | | | | [place] [address] | | | | + + + + + + | Calcium | 7.6 (L)Comment: Testing | 8.5 - 10.5 | EXTERNAL | | | | performed at [facility], [address] | mg/dL | LAB | | | | [address], | | | | | | [place] [address] | | | | + + + + + + | Estimated | 19 (L)Comment: GFR <60: | mL/min/1.73m2 | EXTERNAL | | | GFR | CHRONIC KIDNEY DISEASE, | | LAB | | | | IF FOUND OVER A 3 MONTH | | | | | | PERIOD.GFR <15: KIDNEY | | | | | | FAILURE.FOR | | | | | | AMERICANS, MULTIPLY THE | | | | | | CALCULATED GFR BY | | | | | | 1.210.Testing performed | | | | | | at [facility], [address] | | | | | | [address], | | | | | | [place] [address] | | | | + + + + + + + + | Specimen | + + | Blood specimen | | (specimen) | + + + +---------+ + + | Performing | Address | City/State/Zipcode | Phone Number | | Organization | | | | + +---------+ + + | EXTERNAL LAB | | | | + +---------+ + + External Lab: CBC (10/15/2015 5:47 AM PDT) + + + + + + | Component | Value | Ref Range | Performed | Pathologist | | | | | At | Signature | + + + + + + | WBC | 17.10 (H)Comment: | 3.80 - 11.00 | EXTERNAL | | | | Testing performed at | K/uL | LAB | | | | [facility];[address] | | | | | | [address];[place] [address] | | | | + + + + + + | Non- | 2.38 (L)Comment: Testing | 4.20 - 5.70 | EXTERNAL | | | Red Blood | performed at [facility];[address] | M/uL | LAB | | | Cells | [address];[place] | | | | | Counted | [id number] | | | | + + + + + + | Hemoglobin | 6.9 (LL)Comment: CALLED | 13.2 - 17.0 | EXTERNAL | | | | NURSING UNITREAD BACK | g/dL | LAB | | | | RESULTS VERIFIEDJACKIE | | | | | | IN ICU AT 0606 BY | | | | | | TDTesting performed at | | | | | | [facility];[address];[place] [address] | | | | + + + + + + | Hematocrit, | 20.8 (LL)Comment: CALLED | 39.0 - 50.0 % | EXTERNAL | | | POC | NURSING UNITREAD BACK | | LAB | | | | RESULTS VERIFIEDJACKIE | | | | | | IN ICU AT 0606 BY | | | | | | TDTesting performed at | | | | | | [facility];[address];[place] [address] | | | | + + + + + + | MCV | 87.5Comment: Testing | 80.0 - 100.0 fl | EXTERNAL | | | | performed at [facility];[address] | | LAB | | | | [address];[place] | | | | | | [address] | | | | + + + + + + | MCH | 29.0Comment: Testing | 27.0 - 34.0 pg | EXTERNAL | | | | performed at [facility];[address] | | LAB | | | | [address];[place] | | | | | | [address] | | | | + + + + + + | MCHC | 33.2Comment: Testing | 32.0 - 35.5 | EXTERNAL | | | | performed at [facility];888 | g/dL | LAB | | | | [address];[place] | | | | | | [address] | | | | + + + + + + | RDW-CV | 50.3Comment: Testing | 37 - 53 fl | EXTERNAL | | | | performed at [facility];[address] | | LAB | | | | [address];[place] | | | | | | [address] | | | | + + + + + + | Platelet | 156Comment: Testing | 150 - 400 K/uL | EXTERNAL | | | Count | performed at [facility];[address] | | LAB | | | Plasma | [address];[place] | | | | | | [address] | | | | + + + + + + | MPV | 7.9Comment: Testing | fl | EXTERNAL | | | | performed at [facility];[address] | | LAB | | | | [address];[place] | | | | | | [address] | | | | + + + + + + | Differentia | MANUALComment: Testing | | EXTERNAL | | | l Type | performed at [facility];[address] | | LAB | | | | [address];[place] | | | | | | [address] | | | | + + + + + + | Segmented | 87Comment: Testing | % | EXTERNAL | | | Neutrophils | performed at [facility];[address] | | LAB | | | Manual | [address];[place] | | | | | | [address] | | | | + + + + + + | % Bands | 1Comment: Testing | % | EXTERNAL | | | | performed at [facility];[address] | | LAB | | | | [address];[place] | | | | | | [address] | | | | + + + + + + | Lymphocytes | 8Comment: Testing | % | EXTERNAL | | | Manual | performed at [facility];[address] | | LAB | | | | [address];[place] | | | | | | [address] | | | | + + + + + + | Monocytes | 2Comment: Testing | % | EXTERNAL | | | Manual | performed at [facility];[address] | | LAB | | | | [address];[place] | | | | | | [address] | | | | + + + + + + | Eosinophils | 2Comment: Testing | % | EXTERNAL | | | Manual | performed at [facility];[address] | | LAB | | | | [address];[place] | | | | | | [address] | | | | + + + + + + | Absolute | 14.88 (H)Comment: | 1.90 - 7.40 | EXTERNAL | | | Neutrophils | Testing performed at | K/uL | LAB | | | | [facility];[address];[place] [address] | | | | + + + + + + | Bands | 0.17Comment: Testing | 0.00 - 0.20 | EXTERNAL | | | Manual | performed at [facility];[address] | K/uL | LAB | | | | [address];[place] | | | | | | [address] | | | | + + + + + + | Absolute | 1.37Comment: Testing | 1.00 - 3.90 | EXTERNAL | | | Lymphocytes | performed at [facility];[address] | K/uL | LAB | | | | [address];[place] | | | | | | [address] | | | | + + + + + + | Absolute | 0.34Comment: Testing | 0.00 - 0.80 | EXTERNAL | | | Monocytes | performed at [facility];[address] | K/uL | LAB | | | | [address];[place] | | | | | | [address] | | | | + + + + + + | Absolute | 0.34Comment: Testing | 0.00 - 0.50 | EXTERNAL | | | Eosinophils | performed at [facility];[address] | K/uL | LAB | | | | [address];[place] | | | | | | [address] | | | | + + + + + + | Platelet | ADEQUATEComment: Testing | | EXTERNAL | | | Estimate | performed at [facility];[address] | | LAB | | | [address];[place] | | | | | | [address] | | | | + + + + + + | RBC | RBC AND PLT MORPHOLOGY | | EXTERNAL | | | Morphology | APPEAR NORMALComment: | | LAB | | | | Testing performed at | | | | | | [facility];[address];[place] [address] | | | | + + + + + + + + | Specimen | + + | | + + + +---------+ + + | Performing | Address | City/State/Zipcode | Phone Number | | Organization | | | | + +---------+ + + | EXTERNAL LAB | | | | + +---------+ + + Procalcitonin (10/15/2015 3:57 AM PDT) + + + + + + | Component | Value | Ref Range | Performed | Pathologist | | | | | At | Signature | + + + + + + | PROCALCITON | 5.29 (H)Comment: | ng/mL | EXTERNAL | | | IN | INTERPRETIVE | | LAB | | | | INFORMATION: | | | | | | PROCALCITONIN PCT <= | | | | | | 0.5 ng/mL: Low risk | | | | | | for progression to | | | | | | severe systemic | | | | | | bacterial infection | | | | | | (severe sepsis/septic | | | | | | shock). Does not | | | | | | exclude an infection, | | | | | | because localized | | | | | | infections may be | | | | | | associated with such low | | | | | | levels. If PCT is | | | | | | measured very early | | | | | | after bacterial | | | | | | challenge (usually <6 | | | | | | hours), results may | | | | | | still be low and | | | | | | should re-assess PCT | | | | | | 6-24 hours later. PCT | | | | | | >0.5 and <= 2 ng/mL: | | | | | | Moderate risk for | | | | | | progression to severe | | | | | | systemic infection | | | | | | (severe sepsis/septic | | | | | | shock). Other | | | | | | conditions are known | | | | | | to elevate PCT, patient | | | | | | should be closely | | | | | | monitored both | | | | | | clinically and by | | | | | | re-assessing PCT | | | | | | within 6-24 hours. PCT > | | | | | | 2 ng/mL: High | | | | | | likelihood for | | | | | | progression to severe | | | | | | systemic bacterial | | | | | | infection (severe | | | | | | sepsis/septic shock). | | | | | | PCT >= 10 ng/mL: | | | | | | High likelihood of | | | | | | severe sepsis or septic | | | | | | shock.Testing performed | | | | | | at [facility];[address] [place] [address] | | | | | | [facility];[place] [address] | | | | + + + + + + + + | Specimen | + + | | + + + +---------+ + + | Performing | Address | City/State/Zipcode | Phone Number | | Organization | | | | + +---------+ + + | EXTERNAL LAB | | | | + +---------+ + + Protime INR (10/15/2015 3:57 AM PDT) + + + + + + | Component | Value | Ref Range | Performed | Pathologist | | | | | At | Signature | + + + + + + | INR | 1.1Comment: REFERENCE | | EXTERNAL | | | | RANGE:0.9 - 1.2 | | LAB | | | | NON-ANTICOAGULATED2.0 | | | | | | - 3.0 ALL OTHER | | | | | | THERAPEUTIC | | | | | | INDICATIONS2.5 - 3.5 | | | | | | MECHANICAL HEART VALVES, | | | | | | RECURRENT OR SYSTEMIC | | | | | | EMBOLISMTesting | | | | | | performed at [facility];[address] | | | | | | [address];[place], [place] | | | | | | [address] | | | | + + + + + + + + | Specimen | + + | Blood specimen | | (specimen) | + + + +---------+ + + | Performing | Address | City/State/Zipcode | Phone Number | | Organization | | | | + +---------+ + + | EXTERNAL LAB | | | | + +---------+ + + Phosphorus (10/15/2015 3:57 AM PDT) + + + + + + | Component | Value | Ref Range | Performed | Pathologist | | | | | At | Signature | + + + + + + | PHOSPHORUS | 3.5Comment: Testing | 2.3 - 4.8 mg/dL | EXTERNAL | | | | performed at [facility], [address] | | LAB | | | | [address], | | | | | | [place] [address] | | | | + + + + + + + + | Specimen | + + | Blood specimen | | (specimen) | + + + +---------+ + + | Performing | Address | City/State/Zipcode | Phone Number | | Organization | | | | + +---------+ + + | EXTERNAL LAB | | | | + +---------+ + + Magnesium (10/15/2015 3:57 AM PDT) + + + + + + | Component | Value | Ref Range | Performed | Pathologist | | | | | At | Signature | + + + + + + | Magnesium | 2.3Comment: Testing | 1.7 - 2.4 mg/dL | EXTERNAL | | | | performed at [facility], [address] | | LAB | | | | [address], | | | | | | [place] [address] | | | | + + + + + + + + | Specimen | + + | Blood specimen | | (specimen) | + + + +---------+ + + | Performing | Address | City/State/Zipcode | Phone Number | | Organization | | | | + +---------+ + + | EXTERNAL LAB | | | | + +---------+ + + Basic Metabolic Panel (10/15/2015 3:57 AM PDT) + + + + + + | Component | Value | Ref Range | Performed | Pathologist | | | | | At | Signature | + + + + + + | Na | 135Comment: Testing | 135 - 145 | EXTERNAL | | | | performed at [facility], [address] | mmol/L | LAB | | | | [address], | | | | | | [place] [address] | | | | + + + + + + | K | 3.5Comment: Testing | 3.5 - 4.9 | EXTERNAL | | | | performed at [facility], [address] | mmol/L | LAB | | | | [address], | | | | | | [place] [address] | | | | + + + + + + | Cl | 99Comment: Testing | 99 - 109 mmol/L | EXTERNAL | | | | performed at [facility], [address] | | LAB | | | | [address], | | | | | | [place] [address] | | | | + + + + + + | CO2 | 20 (L)Comment: Testing | 23 - 32 mmol/L | EXTERNAL | | | | performed at [facility], [address] | | LAB | | | | [address], | | | | | | [place] [address] | | | | + + + + + + | Anion Gap | 20Comment: Testing | 5 - 20 mmol/L | EXTERNAL | | | | performed at [facility], [address] | | LAB | | | | [address], | | | | | | [place] [address] | | | | + + + + + + | Glucose, | 149 (H)Comment: Testing | 65 - 99 mg/dL | EXTERNAL | | | Fasting | performed at [facility], [address] | | LAB | | | | [address], | | | | | | [place] [address] | | | | + + + + + + | BUN | 87 (H)Comment: Testing | 8 - 25 mg/dL | EXTERNAL | | | | performed at [facility], [address] | | LAB | | | | [address], | | | | | | [place] [address] | | | | + + + + + + | Creatinine | 5.7 (H)Comment: Testing | 0.70 - 1.30 | EXTERNAL | | | | performed at [facility], [address] | mg/dL | LAB | | | | [address], | | | | | | [place] [address] | | | | + + + + + + | BUN/Creatin | 15Comment: Testing | | EXTERNAL | | | ine Ratio | performed at [facility], [address] | | LAB | | | | [address], | | | | | | [place] [address] | | | | + + + + + + | Calcium | 6.8 (L)Comment: Testing | 8.5 - 10.5 | EXTERNAL | | | | performed at [facility], [address] | mg/dL | LAB | | | | [address], | | | | | | [place] [address] | | | | + + + + + + | Estimated | 12 (L)Comment: GFR <60: | mL/min/1.73m2 | EXTERNAL | | | GFR | CHRONIC KIDNEY DISEASE, | | LAB | | | | IF FOUND OVER A 3 MONTH | | | | | | PERIOD.GFR <15: KIDNEY | | | | | | FAILURE.FOR | | | | | | AMERICANS, MULTIPLY THE | | | | | | CALCULATED GFR BY | | | | | | 1.210.Testing performed | | | | | | at [facility], [address] | | | | | | [address], | | | | | | [place] [address] | | | | + + + + + + + + | Specimen | + + | Blood specimen | | (specimen) | + + + +---------+ + + | Performing | Address | City/State/Zipcode | Phone Number | | Organization | | | | + +---------+ + + | EXTERNAL LAB | | | | + +---------+ + + HISTORICAL MICROBIOLOGY RESULT (10/14/2015 5:37 PM PDT) + + | Specimen | + + | | + + + + + | Narrative | Performed At | + + + | GDH ANTIGEN NEGATIVE Testing | EXTERNAL LAB | | performed at [facility];[address] [place] [address];[place] [address] TOXIN A | | | NEGATIVE Testing performed at | | | [facility];[address] [place] [address];[place] [address] C DIFF INTERPRETATION | | | Negative for toxigenic C.difficile. Testing performed at | | | [facility];[address] [place] [address];[place] [address] | | + + + + +---------+ + + | Performing | Address | City/State/Zipcode | Phone Number | | Organization | | | | + +---------+ + + | EXTERNAL LAB | | | | + +---------+ + + CBC no Differential (10/14/2015 3:11 PM PDT) + + + + + + | Component | Value | Ref Range | Performed | Pathologist | | | | | At | Signature | + + + + + + | WBC | 18.25 (H)Comment: | 3.80 - 11.00 | EXTERNAL | | | | Testing performed at | K/uL | LAB | | | | [facility];[address];[place] [address] | | | | + + + + + + | Non- | 2.40 (L)Comment: Testing | 4.20 - 5.70 | EXTERNAL | | | Red Blood | performed at [facility];[address] | M/uL | LAB | | | Cells | [address];[place] | | | | | Counted | [id number] | | | | + + + + + + | Hemoglobin | 6.8 (LL)Comment: CALLED | 13.2 - 17.0 | EXTERNAL | | | | RESULTSREAD BACK RESULTS | g/dL | LAB | | | | MASTER/OSIEL Ragsdale AT | | | | | | 1544 BY SALTesting | | | | | | performed at [facility];[address] | | | | | [address];[place] | | | | | | [address] | | | | + + + + + + | Hematocrit, | 21.1 (L)Comment: Testing | 39.0 - 50.0 % | EXTERNAL | | | POC | performed at [facility];[address] | | LAB | | | [address];[place] | | | | | | [address] | | | | + + + + + + | MCV | 87.8Comment: Testing | 80.0 - 100.0 fl | EXTERNAL | | | | performed at [facility];[address] | | LAB | | | [address];[place] | | | | | | [address] | | | | + + + + + + | MCH | 28.2Comment: Testing | 27.0 - 34.0 pg | EXTERNAL | | | | performed at [facility];[address] | | LAB | | | [address];[place] | | | | | | [address] | | | | + + + + + + | MCHC | 32.2Comment: Testing | 32.0 - 35.5 | EXTERNAL | | | | performed at [facility];[address] | g/dL | LAB | | | | [address];[place] | | | | | | [address] | | | | + + + + + + | RDW-CV | 47.7Comment: Testing | 37 - 53 fl | EXTERNAL | | | | performed at [facility];[address] | | LAB | | | [address];[place] | | | | | | [address] | | | | + + + + + + | Platelet | 158Comment: Testing | 150 - 400 K/uL | EXTERNAL | | | Count | performed at [facility];[address] | | LAB | | | Plasma | [address];[place] | | | | | | [address] | | | | + + + + + + | MPV | 7.9Comment: Testing | fl | EXTERNAL | | | | performed at [facility];[address] | | LAB | | | [address];[place] | | | | | | [address] | | | | + + + + + + + + | Specimen | + + | | + + + +---------+ + + | Performing | Address | City/State/Zipcode | Phone Number | | Organization | | | | + +---------+ + + | EXTERNAL LAB | | | | + +---------+ + + Eosinophil Smear, Urine (10/14/2015 10:27 AM PDT) + + + + + + | Component | Value | Ref Range | Performed | Pathologist | | | | | At | Signature | + + + + + + | Eosinophils | NO EOSINOPHILS | % | EXTERNAL | | | , Urine | SEENComment: Testing | | LAB | | | | performed at [facility], [address] | | | | | | [address], | | | | | | [place] [address] | | | | + + + + + + + + | Specimen | + + | | + + + +---------+ + + | Performing | Address | City/State/Zipcode | Phone Number | | Organization | | | | + +---------+ + + | EXTERNAL LAB | | | | + +---------+ + + Sodium, Urine, Random (10/14/2015 10:27 AM PDT) + + + + + + | Component | Value | Ref Range | Performed | Pathologist | | | | | At | Signature | + + + + + + | Sodium, | 37 (L)Comment: Testing | 90 - 104 mmol/L | EXTERNAL | | | Urine | performed at [facility], [address] | | LAB | | | Random | [address], | | | | | | [place] [address] | | | | + + + + + + + + | Specimen | + + | Urine specimen | | (specimen) | + + + +---------+ + + | Performing | Address | City/State/Zipcode | Phone Number | | Organization | | | | + +---------+ + + | EXTERNAL LAB | | | | + +---------+ + + Protein, Urine, Random (10/14/2015 10:27 AM PDT) + + + + + + | Component | Value | Ref Range | Performed | Pathologist | | | | | At | Signature | + + + + + + | Protein, | 1,000Comment: Testing | mg/dL | EXTERNAL | | | Urine | performed at [facility], [address] | | LAB | | | | [address], | | | | | | [place] [address] | | | | + + + + + + + + | Specimen | + + | Urine specimen | | (specimen) | + + + +---------+ + + | Performing | Address | City/State/Zipcode | Phone Number | | Organization | | | | + +---------+ + + | EXTERNAL LAB | | | | + +---------+ + + Creatinine, Urine, Random (10/14/2015 10:27 AM PDT) + + + + + + | Component | Value | Ref Range | Performed | Pathologist | | | | | At | Signature | + + + + + + | Creatinine, | 112.0Comment: Testing | mg/dL | EXTERNAL | | | Urine | performed at [facility], [address] | | LAB | | | | [address], | | | | | | [place] [address] | | | | + + + + + + + + | Specimen | + + | Urine specimen | | (specimen) | + + + +---------+ + + | Performing | Address | City/State/Zipcode | Phone Number | | Organization | | | | + +---------+ + + | EXTERNAL LAB | | | | + +---------+ + + Urinalysis with Microscopic if Indicated (10/14/2015 10:27 AM PDT) + + + + + + | Component | Value | Ref Range | Performed | Pathologist | | | | | At | Signature | + + + + + + | Color | REDComment: Testing | | EXTERNAL | | | | performed at [facility];[address] | | LAB | | | | [address];[place] | | | | | | [address] | | | | + + + + + + | Clarity, | TURBIDComment: Testing | | EXTERNAL | | | Urine | performed at [facility];[address] | | LAB | | | | [address];[place] | | | | | | [address] | | | | + + + + + + | Specific | 1.030Comment: Testing | 1.002 - 1.030 | EXTERNAL | | | [place], | performed at [facility];[address] | | LAB | | | Urine | [address];[place] | | | | | | [address] | | | | + + + + + + | Leukocyte | MODERATE (A)Comment: | | EXTERNAL | | | Esterase, | Testing performed at | | LAB | | | Urine | [facility];[address];[place] [address] | | | | + + + + + + | Nitrite, | NEGATIVEComment: Testing | | EXTERNAL | | | Urine | performed at [facility];[address] | | LAB | | | [address];[place] | | | | | | [address] | | | | + + + + + + | Urobilinoge | NORMALComment: Testing | mg/dL | EXTERNAL | | | n, Urine | performed at [facility];[address] | | LAB | | | [address];[place] | | | | | | [address] | | | | + + + + + + | Protein, | 100 (A)Comment: Testing | mg/dL | EXTERNAL | | | Urine | performed at [facility];[address] | | LAB | | | [address];[place] | | | | | | [address] | | | | + + + + + + | pH, Urine | 5.0Comment: Testing | 5.0 - 8.0 | EXTERNAL | | | | performed at [facility];[address] | | LAB | | | [address];[place] | | | | | | [address] | | | | + + + + + + | Blood, | MODERATE (A)Comment: | | EXTERNAL | | | Urine | Testing performed at | | LAB | | | | [facility];[address];[place] [address] | | | | + + + + + + | Ketones | TRACE (A)Comment: | mg/dL | EXTERNAL | | | | Testing performed at | | LAB | | | | [facility];[address];[place] [address] | | | | + + + + + + | Bilirubin, | NEGATIVEComment: Testing | | EXTERNAL | | | Urine | performed at [facility];[address] | | LAB | | | [address];[place] | | | | | | [address] | | | | + + + + + + | Glucose, | 50 (A)Comment: Testing | mg/dL | EXTERNAL | | | Urine | performed at [facility];[address] | | LAB | | | [address];[place] | | | | | | [address] | | | | + + + + + + | WBC, UA | >100Comment: Testing | 0 - 5 /hpf | EXTERNAL | | | | performed at [facility];[address] | | LAB | | | [address];[place] | | | | | | [address] | | | | + + + + + + | RBC, UA | 50-100Comment: Testing | 0 - 2 /hpf | EXTERNAL | | | | performed at [facility];[address] | | LAB | | | [address];[place] | | | | | | [address] | | | | + + + + + + | Bacteria, | 2+ (A)Comment: Testing | | EXTERNAL | | | UA | performed at [facility];[address] | | LAB | | | [address];[place] | | | | | | [address] | | | | + + + + + + | Epithelial | NONE SEENComment: | /lpf | EXTERNAL | | | Cells | Testing performed at | | LAB | | | | [facility];[address];[place] [address] | | | | + + + + + + + + | Specimen | + + | Urine specimen | | (specimen) | + + + +---------+ + + | Performing | Address | City/State/Zipcode | Phone Number | | Organization | | | | + +---------+ + + | EXTERNAL LAB | | | | + +---------+ + + Type and Screen (10/14/2015 6:42 AM PDT) + + + + + + | Component | Value | Ref Range | Performed | Pathologist | | | | | At | Signature | + + + + + + | ABO Rh | O POSITIVE | | EXTERNAL | | | | | | LAB | | + + + + + + | Antibody | NEGATIVE | | EXTERNAL | | | Screen | | | LAB | | + + + + + + | BB BAND | [id number] | | EXTERNAL | | | | | | LAB | | + + + + + + | UNIT NUMBER | [id number] | | EXTERNAL | | | | | | LAB | | + + + + + + | Product | LEUKODEPLETED PC | | EXTERNAL | | | Code | | | LAB | | + + + + + + | Unit | 00 | | EXTERNAL | | | Division | | | LAB | | + + + + + + | Unit Status | ISSUED,FINAL | | EXTERNAL | | | | | | LAB | | + + + + + + | Transfusion | OK TO TRANSFUSE | | EXTERNAL | | | Status | | | LAB | | + + + + + + | CROSSMATCH | COMPATIBLE | | EXTERNAL | | | RESULT | | | LAB | | + + + + + + | UNIT NUMBER | [id number] | | EXTERNAL | | | | | | LAB | | + + + + + + | Product | LEUKODEPLETED PC | | EXTERNAL | | | Code | | | LAB | | + + + + + + | Unit | 00 | | EXTERNAL | | | Division | | | LAB | | + + + + + + | Unit Status | ISSUED,FINAL | | EXTERNAL | | | | | | LAB | | + + + + + + | Transfusion | OK TO TRANSFUSE | | EXTERNAL | | | Status | | | LAB | | + + + + + + | CROSSMATCH | COMPATIBLE | | EXTERNAL | | | RESULT | | | LAB | | + + + + + + | UNIT NUMBER | [id number] | | EXTERNAL | | | | | | LAB | | + + + + + + | UNIT NUMBER | Testing performed at | | EXTERNAL | | | | [facility];[address] | LAB | | | [address];[place] [address] | | | | + + + + + + | Product | LEUKODEPLETED PCTesting | | EXTERNAL | | | Code | performed at [facility];[address] | | LAB | | | [address];[place] | | | | | | [address] | | | | + + + + + + | Unit | 00Testing performed at | | EXTERNAL | | | Division | [facility];[address] | | LAB | | | [address];[place] [address] | | | | + + + + + + | Unit Status | ISSUED,FINALTesting | | EXTERNAL | | | | performed at [facility];[address] | | LAB | | | [address];[place] | | | | | | [address] | | | | + + + + + + | Transfusion | OK TO TRANSFUSETesting | | EXTERNAL | | | Status | performed at [facility];[address] | | LAB | | | [address];[place] | | | | | | [address] | | | | + + + + + + | CROSSMATCH | COMPATIBLETesting | | EXTERNAL | | | RESULT | performed at [facility];[address] | | LAB | | | [address];[place] | | | | | | [address] | | | | + + + + + + + + | Specimen | + + | Blood specimen | | (specimen) | + + + +---------+ + + | Performing | Address | City/State/Zipcode | Phone Number | | Organization | | | | + +---------+ + + | EXTERNAL LAB | | | | + +---------+ + + External Lab: CBC (10/14/2015 5:42 AM PDT) + + + + + + | Component | Value | Ref Range | Performed | Pathologist | | | | | At | Signature | + + + + + + | WBC | 19.40 (H)Comment: | 3.80 - 11.00 | EXTERNAL | | | | Testing performed at | K/uL | LAB | | | | [facility];[address];[place] [address] | | | | + + + + + + | Non- | 2.04 (L)Comment: Testing | 4.20 - 5.70 | EXTERNAL | | | Red Blood | performed at [facility];[address] | M/uL | LAB | | | Cells | [address];[place] | | | | | Counted | [address] | | | | + + + + + + | Hemoglobin | 5.8 (LL)Comment: CALLED | 13.2 - 17.0 | EXTERNAL | | | | NURSING SAUL MADRID | g/dL | LAB | | | | AT 0606 BY RHREAD BACK | | | | | | RESULTS VERIFIEDTesting | | | | | | performed at [facility];[address] | | | | | [address];[place] | | | | | | [address] | | | | + + + + + + | Hematocrit, | 17.9 (LL)Comment: CALLED | 39.0 - 50.0 % | EXTERNAL | | | POC | NURSING SAUL MADRID | | LAB | | | | 0606 BY RHREAD BACK | | | | | | RESULTS VERIFIEDTesting | | | | | | performed at [facility];[address] | | | | | | [address];[place] | | | | | | [address] | | | | + + + + + + | MCV | 87.6Comment: Testing | 80.0 - 100.0 fl | EXTERNAL | | | | performed at [facility];[address] | | LAB | | | | [address];[place] | | | | | | [address] | | | | + + + + + + | MCH | 28.2Comment: Testing | 27.0 - 34.0 pg | EXTERNAL | | | | performed at [facility];[address] | | LAB | | | | [address];[place] | | | | | | [address] | | | | + + + + + + | MCHC | 32.2Comment: Testing | 32.0 - 35.5 | EXTERNAL | | | | performed at [facility];[address] | g/dL | LAB | | | | [address];[place] | | | | | | [address] | | | | + + + + + + | RDW-CV | 53.8 (H)Comment: Testing | 37 - 53 fl | EXTERNAL | | | | performed at [facility];[address] | | LAB | | | [address];[place] | | | | | | [address] | | | | + + + + + + | Platelet | 157Comment: Testing | 150 - 400 K/uL | EXTERNAL | | | Count | performed at [facility];[address] | | LAB | | | Plasma | [address];[place] | | | | | | [address] | | | | + + + + + + | MPV | 8.6Comment: Testing | fl | EXTERNAL | | | | performed at [facility];[address] | | LAB | | | [address];[place] | | | | | | [address] | | | | + + + + + + | Differentia | AUTOMATEDComment: | | EXTERNAL | | | l Type | Testing performed at | | LAB | | | | [facility];[address];[place] [address] | | | | + + + + + + | % Segmented | 87.09Comment: Testing | % | EXTERNAL | | | | performed at [facility];[address] | | LAB | | | Neutrophils | [address];[place] | | | | | | [address] | | | | + + + + + + | % | 6.48Comment: Testing | % | EXTERNAL | | | Lymphocytes | performed at [facility];[address] | | LAB | | | | [address];[place] | | | | | | [address] | | | | + + + + + + | % Monocytes | 4.86Comment: Testing | % | EXTERNAL | | | | performed at [facility];[address] | | LAB | | | | [address];[place] | | | | | | [address] | | | | + + + + + + | % | 1.15Comment: Testing | % | EXTERNAL | | | Eosinophils | performed at [facility];[address] | | LAB | | | | [address];[place] | | | | | | [address] | | | | + + + + + + | % Basophils | 0.42Comment: Testing | % | EXTERNAL | | | | performed at [facility];[address] | | LAB | | | | [address];[place] | | | | | | [address] | | | | + + + + + + | Absolute | 16.89 (H)Comment: | 1.90 - 7.40 | EXTERNAL | | | Segmented | Testing performed at | K/uL | LAB | | | Neutrophils | [facility];[address];[place] [address] | | | | + + + + + + | Absolute | 1.26Comment: Testing | 1.00 - 3.90 | EXTERNAL | | | Lymphocytes | performed at [facility];[address] | K[address] | LAB | | | | [address];[place] | | | | | | [address] | | | | + + + + + + | Absolute | 0.94 (H)Comment: Testing | 0.00 - 0.80 | EXTERNAL | | | Monocytes | performed at [facility];[address] | [address] | LAB | | | | [address];[place] | | | | | | [address] | | | | + + + + + + | Absolute | 0.22Comment: Testing | 0.00 - 0.50 | EXTERNAL | | | Eosinophils | performed at [facility];[address] | K[address] | LAB | | | | [address];[place] | | | | | | [address] | | | | + + + + + + | Absolute | 0.08Comment: Testing | 0.00 - 0.10 | EXTERNAL | | | Basophils | performed at [facility];[address] | [address] | LAB | | | | [address];[place] | | | | | | [address] | | | | + + + + + + | RBC | NORMAL PLT MORPHComment: | | EXTERNAL | | | Morphology | 1+ANISOTesting | | LAB | | | | performed at [facility];[address] | | | | | | [address];[place] | | | | | | [address] | | | | | | | | | | + + + + + + | Platelet | ADEQUATEComment: Testing | | EXTERNAL | | | Estimate | performed at [facility];[address] | | LAB | | | | [address];[place] [place] | | | | | | [address] | | | | + + + + + + | Differentia | SLIDE SCANNED, AGREES | | EXTERNAL | | | l Comments | WITH AUTOMATED | | LAB | | | | RESULTS.Comment: Testing | | | | | | performed at [facility];[address] | | | | | | [address];[place], [place] | | | | | | [address] | | | | + + + + + + + + | Specimen | + + | Blood specimen | | (specimen) | + + + +---------+ + + | Performing | Address | City/State/Zipcode | Phone Number | | Organization | | | | + +---------+ + + | EXTERNAL LAB | | | | + +---------+ + + XR Chest 1 Vw (10/14/2015 5:20 AM PDT) + + | Specimen | + + | | + + + + + | Impressions | Performed At | + + + | 1. Unchanged appearance of bilateral airspace and nodular/cavity | | | opacities. 2. Unchanged at least small bilateral pleural effusions. | | | | | + + + + + + | Narrative | Performed At | + + + | YANG KEYANA 1985 30 years XR CHEST 1 VIEW 10/14/2015 5:20 | | | AM INDICATION: Respiratory failure TECHNIQUE: Frontal view | | | COMPARISON: Chest x-ray 10/13/2015 FINDINGS: Right-sided central | | | line, endotracheal tube, right-sided PICC line and NG tube appears | | | stable. Unchanged bilateral scattered mixed airspace and | | | nodular/cavity opacities. Cardiomediastinal silhouette appears stable. | | | Osseous structures appear unremarkable. Unchanged at least small | | | bilateral pleural effusions. | | + + + + + | Procedure Note | + + | Elmer, Rad Conversion - 11/01/2018 7:23 PM PDT YANG RIDLEY yearsXR CHEST 1 | | VIEW10/14/2015 5:20 AM INDICATION: Respiratory failure TECHNIQUE: Frontal view | | COMPARISON: Chest x-ray 10/13/2015 FINDINGS: Right-sided central line, endotracheal | | tube, right-sided PICC line and NG tube appears stable. Unchanged bilateral scattered | | mixed airspace and nodular/cavity opacities. Cardiomediastinal silhouette appears | | stable. Osseous structures appear unremarkable. Unchanged at least small bilateral | | pleural effusions. IMPRESSION: 1. Unchanged appearance of bilateral airspace and | | nodular/cavity opacities.2. Unchanged at least small bilateral pleural effusions. | | | | | |COMPARISON: Chest x-ray 10/13/2015 | | | |FINDINGS: Right-sided central line, endotracheal tube, right-sided PICC line and NG tube a ppears stable. Unchanged bilateral scattered mixed airspace and nodular/cavity opacities. Ca rdiomediastinal silhouette appears stable. Osseous structures appear | |unremarkable. Unchanged at least small bilateral pleural effusions. | | | |IMPRESSION: | |1. Unchanged appearance of bilateral airspace and nodular/cavity opacities. | |2. Unchanged at least small bilateral pleural effusions. | | | | | + + External Lab: DEON (10/14/2015 4:09 AM PDT) + + + + + + | Component | Value | Ref Range | Performed | Pathologist | | | | | At | Signature | + + + + + + | WBC | 17.44 (H)Comment: | 3.80 - 11.00 | EXTERNAL | | | | Testing performed at | K/uL | LAB | | | | [facility], [address] [facility] | | | | | | [place] | | | | | | [address] | | | | + + + + + + | Non- | 2.01 (L)Comment: Testing | 4.20 - 5.70 | EXTERNAL | | | Red Blood | performed at [facility], [address] | M/uL | LAB | | | Cells | [address], | | | | | Counted | [place] [address] | | | | + + + + + + | Hemoglobin | 5.8 (LL)Comment: RESULT | 13.2 - 17.0 | EXTERNAL | | | | READ BACK BY:MAUREEN | g/dL | LAB | | | | B/RN/ICU/OCTOBER 13, | | | | | | :23[facility] | | | | | performed at [facility], [address] | | | | | | [facility] [address], | | | | | | [place] [address] | | | | + + + + + + | Hematocrit, | 17.7 (LL)Comment: RESULT | 39.0 - 50.0 % | EXTERNAL | | | POC | READ BACK BY:MAUREEN | | LAB | | | | B/RN//OCTOBER 13, | | | | | | :23/[facility] | | | | | | performed at [facility], [address] | | | | | | [address], | | | | | | [place] [address] | | | | + + + + + + | MCV | 88.3Comment: Testing | 80.0 - 100.0 fl | EXTERNAL | | | | performed at [facility], [address] | | LAB | | | | [address], | | | | | | [place] [address] | | | | + + + + + + | MCH | 28.9Comment: Testing | 27.0 - 34.0 pg | EXTERNAL | | | | performed at [facility], [address] | | LAB | | | | [address], | | | | | | [place] [address] | | | | + + + + + + | MCHC | 32.7Comment: Testing | 32.0 - 35.5 | EXTERNAL | | | | performed at [facility], [address] | g/dL | LAB | | | | [address], | | | | | | [place] [address] | | | | + + + + + + | RDW-CV | 53.8 (H)Comment: Testing | 37 - 53 fl | EXTERNAL | | | | performed at [facility], [address] | | LAB | | | | [address], | | | | | | [place] [address] | | | | + + + + + + | Platelet | 158Comment: Testing | 150 - 400 K/uL | EXTERNAL | | | Count | performed at [facility], [address] | | LAB | | | Plasma | [address], | | | | | | [place] [address] | | | | + + + + + + | MPV | 8.6Comment: Testing | fl | EXTERNAL | | | | performed at [facility], [address] | | LAB | | | | [address], | | | | | | [place], [place] [address] | | | | + + + + + + | Differentia | MANUALComment: Testing | | EXTERNAL | | | l Type | performed at [facility], [address] | | LAB | | | | [address], | | | | | | [place], [place] [address] | | | | + + + + + + | Segmented | 82Comment: Testing | % | EXTERNAL | | | Neutrophils | performed at [facility], [address] | | LAB | | | Manual | [address], | | | | | | [place] [address] | | | | + + + + + + | % Bands | 2Comment: Testing | % | EXTERNAL | | | | performed at [facility], [address] | | LAB | | | | [address], | | | | | | [place] [address] | | | | + + + + + + | Lymphocytes | 6Comment: Testing | % | EXTERNAL | | | Manual | performed at [facility], [address] | | LAB | | | | [address], | | | | | | [place] [address] | | | | + + + + + + | Monocytes | 9Comment: Testing | % | EXTERNAL | | | Manual | performed at [facility], [address] | | LAB | | | | [address], | | | | | | [place] [address] | | | | + + + + + + | Eosinophils | 1Comment: Testing | % | EXTERNAL | | | Manual | performed at [facility], [address] | | LAB | | | | [address], | | | | | | [place] [address] | | | | + + + + + + | Absolute | 14.30 (H)Comment: | 1.90 - 7.40 | EXTERNAL | | | Neutrophils | Testing performed at | K/uL | LAB | | | | [facility], [address] [facility] | | | | | | [place] | | | | | | [address] | | | | + + + + + + | Bands | 0.35 (H)Comment: Testing | 0.00 - 0.20 | EXTERNAL | | | Manual | performed at [facility], [address] | K/uL | LAB | | | | [address], | | | | | | [place] [address] | | | | + + + + + + | Absolute | 1.05Comment: Testing | 1.00 - 3.90 | EXTERNAL | | | Lymphocytes | performed at [facility], [address] | K/uL | LAB | | | | [address], | | | | | | [place] [address] | | | | + + + + + + | Absolute | 1.57 (H)Comment: Testing | 0.00 - 0.80 | EXTERNAL | | | Monocytes | performed at [facility], [address] | K/uL | LAB | | | | [address], | | | | | | [place] [address] | | | | + + + + + + | Absolute | 0.17Comment: Testing | 0.00 - 0.50 | EXTERNAL | | | Eosinophils | performed at [facility], [address] | K/uL | LAB | | | | [address], | | | | | | [place] [address] | | | | + + + + + + | RBC | RBC AND PLT MORPHOLOGY | | EXTERNAL | | | Morphology | APPEAR NORMALComment: | | LAB | | | | Testing performed at | | | | | | [facility], [address] [facility] | | | | | | [place] | | | | | | [address] | | | | + + + + + + + + | Specimen | + + | Blood specimen | | (specimen) | + + + +---------+ + + | Performing | Address | City/State/Zipcode | Phone Number | | Organization | | | | + +---------+ + + | EXTERNAL LAB | | | | + +---------+ + + Phosphorus (10/14/2015 4:09 AM PDT) + + + + + + | Component | Value | Ref Range | Performed | Pathologist | | | | | At | Signature | + + + + + + | PHOSPHORUS | 3.4Comment: Testing | 2.3 - 4.8 mg/dL | EXTERNAL | | | | performed at [facility], [address] | | LAB | | | | [address], | | | | | | [place] [address] | | | | + + + + + + + + | Specimen | + + | Blood specimen | | (specimen) | + + + +---------+ + + | Performing | Address | City/State/Zipcode | Phone Number | | Organization | | | | + +---------+ + + | EXTERNAL LAB | | | | + +---------+ + + Magnesium (10/14/2015 4:09 AM PDT) + + + + + + | Component | Value | Ref Range | Performed | Pathologist | | | | | At | Signature | + + + + + + | Magnesium | 2.4Comment: Testing | 1.7 - 2.4 mg/dL | EXTERNAL | | | | performed at [facility], [address] | | LAB | | | | [address], | | | | | | [place] [address] | | | | + + + + + + + + | Specimen | + + | Blood specimen | | (specimen) | + + + +---------+ + + | Performing | Address | City/State/Zipcode | Phone Number | | Organization | | | | + +---------+ + + | EXTERNAL LAB | | | | + +---------+ + + Hepatic Function Panel (10/14/2015 4:09 AM PDT) + + + + + + | Component | Value | Ref Range | Performed | Pathologist | | | | | At | Signature | + + + + + + | Protein, | 5.9 (L)Comment: Testing | 6.3 - 8.2 g/dL | EXTERNAL | | | Total | performed at [facility], [address] | | LAB | | | | [address], | | | | | | [place] [address] | | | | + + + + + + | Albumin | 2.0 (L)Comment: Testing | 3.6 - 5.0 g/dL | EXTERNAL | | | | performed at [facility], [address] | | LAB | | | | [address], | | | | | | [place] [address] | | | | + + + + + + | Bilirubin | 2.7 (H)Comment: Testing | 0.1 - 1.5 mg/dL | EXTERNAL | | | Total | performed at [facility], [address] | | LAB | | | | [address], | | | | | | [place] [address] | | | | + + + + + + | Bilirubin | 0.8 (H)Comment: Testing | 0.0 - 0.3 mg/dL | EXTERNAL | | | Direct | performed at [facility], [address] | | LAB | | | | [address], | | | | | | [place] [address] | | | | + + + + + + | ALP, | 82Comment: Testing | 35 - 115 U/L | EXTERNAL | | | External | performed at [facility], [address] | | LAB | | | | [address], | | | | | | [place] [address] | | | | + + + + + + | AST | 33Comment: Testing | 10 - 45 U/L | EXTERNAL | | | | performed at [facility], [address] | | LAB | | | | [address], | | | | | | [place] [address] | | | | + + + + + + | ALT | 21Comment: Testing | 10 - 65 U/L | EXTERNAL | | | | performed at [facility], [address] | | LAB | | | | [address], | | | | | | [place] [address] | | | | + + + + + + + + | Specimen | + + | | + + + +---------+ + + | Performing | Address | City/State/Zipcode | Phone Number | | Organization | | | | + +---------+ + + | EXTERNAL LAB | | | | + +---------+ + + Basic Metabolic Panel (10/14/2015 4:09 AM PDT) + + + + + + | Component | Value | Ref Range | Performed | Pathologist | | | | | At | Signature | + + + + + + | Na | 134 (L)Comment: Testing | 135 - 145 | EXTERNAL | | | | performed at [facility], [address] | mmol/L | LAB | | | | [address], | | | | | | [place] [address] | | | | + + + + + + | K | 4.0Comment: Testing | 3.5 - 4.9 | EXTERNAL | | | | performed at [facility], [address] | mmol/L | LAB | | | | [address], | | | | | | [place] [address] | | | | + + + + + + | Cl | 97 (L)Comment: Testing | 99 - 109 mmol/L | EXTERNAL | | | | performed at [facility], [address] | | LAB | | | | [address], | | | | | | [place] [address] | | | | + + + + + + | CO2 | 25Comment: Testing | 23 - 32 mmol/L | EXTERNAL | | | | performed at [facility], [address] | | LAB | | | | [address], | | | | | | [place] [address] | | | | + + + + + + | Anion Gap | 16Comment: Testing | 5 - 20 mmol/L | EXTERNAL | | | | performed at [facility], [address] | | LAB | | | | [address], | | | | | | [place] [address] | | | | + + + + + + | Glucose, | 127 (H)Comment: Testing | 65 - 99 mg/dL | EXTERNAL | | | Fasting | performed at [facility], [address] | | LAB | | | | [address], | | | | | | [place] [address] | | | | + + + + + + | BUN | 67 (H)Comment: Testing | 8 - 25 mg/dL | EXTERNAL | | | | performed at [facility], [address] | | LAB | | | | [address], | | | | | | [place] [address] | | | | + + + + + + | Creatinine | 4.4 (H)Comment: Testing | 0.70 - 1.30 | EXTERNAL | | | | performed at [facility], [address] | mg/dL | LAB | | | | [address], | | | | | | [place] [address] | | | | + + + + + + | BUN/Creatin | 15Comment: Testing | | EXTERNAL | | | ine Ratio | performed at [facility], [address] | | LAB | | | | [address], | | | | | | [place] [address] | | | | + + + + + + | Calcium | 7.1 (L)Comment: Testing | 8.5 - 10.5 | EXTERNAL | | | | performed at [facility], [address] | mg/dL | LAB | | | | [address], | | | | | | [place] [address] | | | | + + + + + + | Estimated | 17 (L)Comment: GFR <60: | mL/min/1.73m2 | EXTERNAL | | | GFR | CHRONIC KIDNEY DISEASE, | | LAB | | | | IF FOUND OVER A 3 MONTH | | | | | | PERIOD.GFR <15: KIDNEY | | | | | | FAILURE.FOR | | | | | | AMERICANS, MULTIPLY THE | | | | | | CALCULATED GFR BY | | | | | | 1.210.Testing performed | | | | | | at [facility], [address] | | | | | | [address], | | | | | | [place] [address] | | | | + + + + + + + + | Specimen | + + | Blood specimen | | (specimen) | + + + +---------+ + + | Performing | Address | City/State/Zipcode | Phone Number | | Organization | | | | + +---------+ + + | EXTERNAL LAB | | | | + +---------+ + + Potassium (10/13/2015 6:13 PM PDT) + + + + + + | Component | Value | Ref Range | Performed | Pathologist | | | | | At | Signature | + + + + + + | K | 4.1Comment: Testing | 3.5 - 4.9 | EXTERNAL | | | | performed at [facility];[address] | mmol/L | LAB | | | | [facility];[place], [place] | | | | | | [address] | | | | + + + + + + + + | Specimen | + + | Blood specimen | | (specimen) | + + + +---------+ + + | Performing | Address | City/State/Zipcode | Phone Number | | Organization | | | | + +---------+ + + | EXTERNAL LAB | | | | + +---------+ + + XR Chest 1 Vw (10/13/2015 5:29 AM PDT) + + | Specimen | + + | | + + + + + | Impressions | Performed At | + + + | 1. Essentially unchanged bilateral airspace and nodular/cavitary | | | opacities. 2. Unchanged at least small bilateral pleural effusions. | | | | | + + + + + + | Narrative | Performed At | + + + | YANG RIDLEY 1985 30 years XR CHEST 1 VIEW 10/13/2015 5:29 | | | AM INDICATION: Tube/line position. TECHNIQUE: Frontal view | | | COMPARISON: Chest x-ray 10/12/2015 FINDINGS: Stable position of | | | endotracheal tube, NG tube, right-sided PICC line and right-sided | | | central line. Essentially unchanged bilateral airspace and | | | nodular/cavitary opacities. At least small bilateral pleural effusions | | | appear unchanged. Cardiomediastinal silhouette and osseous | | | structures appear unremarkable. | | + + + + + | Procedure Note | + + | Elmer, Erasmo Conversion - 11/01/2018 7:23 PM PDT YANG KEYANA1985 30 yearsXR CHEST 1 | | VIEW10/13/2015 5:29 AM INDICATION: Tube/line position. TECHNIQUE: Frontal view | | COMPARISON: Chest x-ray 10/12/2015 FINDINGS: Stable position of endotracheal tube, NG | | tube, right-sided PICC line and right-sided central line. Essentially unchanged | | bilateral airspace and nodular/cavitary opacities. At least small bilateral pleural | | effusions appear unchanged. Cardiomediastinal silhouette and osseous structures appear | | unremarkable. IMPRESSION: 1. Essentially unchanged bilateral airspace and | | nodular/cavitary opacities.2. Unchanged at least small bilateral pleural effusions. | | | | | |COMPARISON: Chest x-ray 10/12/2015 | | | |FINDINGS: Stable position of endotracheal tube, NG tube, right-sided PICC line and right-s ided central line. Essentially unchanged bilateral airspace and nodular/cavitary opacities. At least small bilateral pleural effusions appear unchanged. | |Cardiomediastinal silhouette and osseous structures appear unremarkable. | | | |IMPRESSION: | |1. Essentially unchanged bilateral airspace and nodular/cavitary opacities. | |2. Unchanged at least small bilateral pleural effusions. | | | | | + + Protime INR (10/13/2015 4:02 AM PDT) + + + + + + | Component | Value | Ref Range | Performed | Pathologist | | | | | At | Signature | + + + + + + | INR | 1.1Comment: REFERENCE | | EXTERNAL | | | | RANGE:0.9 - 1.2 | | LAB | | | | NON-ANTICOAGULATED2.0 | | | | | | - 3.0 ALL OTHER | | | | | | THERAPEUTIC | | | | | | INDICATIONS2.5 - 3.5 | | | | | | MECHANICAL HEART VALVES, | | | | | | RECURRENT OR SYSTEMIC | | | | | | EMBOLISMTesting | | | | | | performed at [facility] | | | | | | [facility];[place], [place] | | | | | | [address] | | | | + + + + + + + + | Specimen | + + | Blood specimen | | (specimen) | + + + +---------+ + + | Performing | Address | City/State/Zipcode | Phone Number | | Organization | | | | + +---------+ + + | EXTERNAL LAB | | | | + +---------+ + + External Lab: CBC (10/13/2015 4:02 AM PDT) + + +---- + + + | Component | Value | Ref Range | Performed | Pathologist | | | | | At | Signature | + + +---- + + + | WBC | 26.11 (H)Comment: | 3.8 0 - 11.00 | EXTERNAL | | | | Testing performed at | K/u L | LAB | | | | [facility], [address] | | | | | | [place] | | | | | | [address] | | | | + + +---- + + + | Non- | 2.62 (L)Comment: Testing | 4.2 0 - 5.70 | EXTERNAL | | | Red Blood | performed at [facility], [address] | M/u L | LAB | | | Cells | [address], | | | | | Counted | [place] [address] | | | | + + +---- + + + | Hemoglobin | 7.3 (L)Comment: Testing | 13. 2 - 17.0 | EXTERNAL | | | | performed at [facility], [address] | g/d L | LAB | | | | [address], | | | | | | [place] [address] | | | | + + +---- + + + | Hematocrit, | 22.7 (L)Comment: Testing | 39. 0 - 50.0 % | EXTERNAL | | | POC | performed at [facility], [address] | | LAB | | | | [address], | | | | | | [place] [address] | | | | + + +---- + + + | MCV | 86.5Comment: Testing | 80. 0 - 100.0 fl | EXTERNAL | | | | performed at [facility], [address] | | LAB | | | | [address], | | | | | | [place] [address] | | | | + + +---- + + + | MCH | 28.0Comment: Testing | 27. 0 - 34.0 pg | EXTERNAL | | | | performed at [facility], [address] | | LAB | | | [address], | | | | | | [place] [address] | | | | + + +---- + + + | MCHC | 32.4Comment: Testing | 32. 0 - 35.5 | EXTERNAL | | | | performed at [facility], [address] | g/d L | LAB | | | | [address], | | | | | | [place] [address] | | | | + + +---- + + + | RDW-CV | 51.2Comment: Testing | 37 - 53 fl | EXTERNAL | | | | performed at [facility], [address] | | LAB | | | | [address], | | | | | | [place] [address] | | | | + + +---- + + + | Platelet | 163Comment: Testing | 150 - 400 K/uL | EXTERNAL | | | Count | performed at [facility], [address] | | LAB | | | Plasma | [address], | | | | | | [place] [address] | | | | + + +---- + + + | MPV | 9.4Comment: Testing | fl | EXTERNAL | | | | performed at [facility], [address] | | LAB | | | | [address], | | | | | | [place] [address] | | | | + + +---- + + + | Differentia | MANUALComment: Testing | | EXTERNAL | | | l Type | performed at [facility], [address] | | LAB | | | | [address], | | | | | | [place] [address] | | | | + + +---- + + + | Segmented | 82Comment: Testing | % | EXTERNAL | | | Neutrophils | performed at [facility], [address] | | LAB | | | Manual | [address], | | | | | | [place] [address] | | | | + + +---- + + + | % Bands | 3Comment: Testing | % | EXTERNAL | | | | performed at [facility], [address] | | LAB | | | | [address], | | | | | | [place] [address] | | | | + + +---- + + + | % | 1Comment: Testing | % | EXTERNAL | | | Metamyelocy | performed at [facility], [address] | | LAB | | | [address] | [address], | | | | | | [place] [address] | | | | + + +---- + + + | Lymphocytes | 8Comment: Testing | % | EXTERNAL | | | Manual | performed at [facility], [address] | | LAB | | | | [address], | | | | | | [place] [address] | | | | + + +---- + + + | Monocytes | 6Comment: Testing | % | EXTERNAL | | | Manual | performed at [facility], [address] | | LAB | | | | [address], | | | | | | [place] [address] | | | | + + +---- + + + | Absolute | 21.41 (H)Comment: | 1.9 0 - 7.40 | EXTERNAL | | | Neutrophils | Testing performed at | K/u L | LAB | | | | [facility], [address] [facility] | | | | | | [place] | | | | | | [address] | | | | + + +---- + + + | Bands | 0.78 (H)Comment: Testing | 0.0 0 - 0.20 | EXTERNAL | | | Manual | performed at [facility], [address] | K/u L | LAB | | | | [address], | | | | | | [place] [address] | | | | + + +---- + + + | Absolute | 0.26 (H)Comment: Testing | K/u L | EXTERNAL | | | Metamyelocy | performed at [facility], [address] | | LAB | | | e[address] | [address], | | | | | | [place] [address] | | | | + + +---- + + + | Absolute | 2.09Comment: Testing | 1.0 0 - 3.90 | EXTERNAL | | | Lymphocytes | performed at [facility], [address] | K/u L | LAB | | | | [address], | | | | | | [place] [address] | | | | + + +---- + + + | Absolute | 1.57 (H)Comment: Testing | 0.0 0 - 0.80 | EXTERNAL | | | Monocytes | performed at [facility], [address] | K/u L | LAB | | | | [address], | | | | | | [place] [address] | | | | + + +---- + + + | RBC | 2+Comment: | | EXTERNAL | | | Morphology | ANISO1+POLY1+SCHISTOSNOR | | LAB | | | | MAL PLT MORPHTesting | | | | | | performed at [facility], [address] | | | | | | [facility], | | | | | | [place] [address] | | | | | |SCHISTOS | | | | | |NORMAL PLT MORPH | | | | | |Testing performed at [facility], [address] [facility], [place] [address] | | | | | | | | | | + + +---- + + + + + | Specimen | + + | Blood specimen | | (specimen) | + + + +---------+ + + | Performing | Address | City/State/Zipcode | Phone Number | | Organization | | | | + +---------+ + + | EXTERNAL LAB | | | | + +---------+ + + Phosphorus (10/13/2015 4:02 AM PDT) + + + + + + | Component | Value | Ref Range | Performed | Pathologist | | | | | At | Signature | + + + + + + | PHOSPHORUS | 6.2 (H)Comment: Testing | 2.3 - 4.8 mg/dL | EXTERNAL | | | | performed at [facility], [address] | | LAB | | | | [address], | | | | | | [place] [address] | | | | + + + + + + + + | Specimen | + + | Blood specimen | | (specimen) | + + + +---------+ + + | Performing | Address | City/State/Zipcode | Phone Number | | Organization | | | | + +---------+ + + | EXTERNAL LAB | | | | + +---------+ + + Magnesium (10/13/2015 4:02 AM PDT) + + + + + + | Component | Value | Ref Range | Performed | Pathologist | | | | | At | Signature | + + + + + + | Magnesium | 2.4Comment: Testing | 1.7 - 2.4 mg/dL | EXTERNAL | | | | performed at [facility], [address] | LAB | | | | [address], | | | | | | [place] [address] | | | | + + + + + + + + | Specimen | + + | Blood specimen | | (specimen) | + + + +---------+ + + | Performing | Address | City/State/Zipcode | Phone Number | | Organization | | | | + +---------+ + + | EXTERNAL LAB | | | | + +---------+ + + Hepatic Function Panel (10/13/2015 4:02 AM PDT) + + + + + + | Component | Value | Ref Range | Performed | Pathologist | | | | | At | Signature | + + + + + + | Protein, | 6.0 (L)Comment: Testing | 6.3 - 8.2 g/dL | EXTERNAL | | | Total | performed at [facility], [address] | | LAB | | | | [address], | | | | | | [place] [id number] | | | | + + + + + + | Albumin | 1.6 (L)Comment: Testing | 3.6 - 5.0 g/dL | EXTERNAL | | | | performed at [facility], [address] | | LAB | | | | [address], | | | | | | [place] [address] | | | | + + + + + + | Bilirubin | 3.2 (H)Comment: Testing | 0.1 - 1.5 mg/dL | EXTERNAL | | | Total | performed at [facility], [address] | | LAB | | | | [address], | | | | | | [place] [address] | | | | + + + + + + | Bilirubin | 0.9 (H)Comment: Testing | 0.0 - 0.3 mg/dL | EXTERNAL | | | Direct | performed at [facility], [address] | | LAB | | | | [address], | | | | | | [place] [address] | | | | + + + + + + | ALP, | 83Comment: Testing | 35 - 115 U/L | EXTERNAL | | | External | performed at [facility], [address] | | LAB | | | | [address], | | | | | | [place] [address] | | | | + + + + + + | AST | 37Comment: Testing | 10 - 45 U/L | EXTERNAL | | | | performed at [facility], [address] | | LAB | | | | [address], | | | | | | [place] [address] | | | | + + + + + + | ALT | 21Comment: Testing | 10 - 65 U/L | EXTERNAL | | | | performed at [facility], [address] | | LAB | | | | [address], | | | | | | [place] [address] | | | | + + + + + + + + | Specimen | + + | | + + + +---------+ + + | Performing | Address | City/State/Zipcode | Phone Number | | Organization | | | | + +---------+ + + | EXTERNAL LAB | | | | + +---------+ + + Basic Metabolic Panel (10/13/2015 4:02 AM PDT) + + + + + + | Component | Value | Ref Range | Performed | Pathologist | | | | | At | Signature | + + + + + + | Na | 132 (L)Comment: Testing | 135 - 145 | EXTERNAL | | | | performed at [facility], [address] | mmol/L | LAB | | | | [address], | | | | | | [place] [address] | | | | + + + + + + | K | 5.7 (H)Comment: Testing | 3.5 - 4.9 | EXTERNAL | | | | performed at [facility], [address] | mmol/L | LAB | | | | [address], | | | | | | [place] [address] | | | | + + + + + + | Cl | 96 (L)Comment: Testing | 99 - 109 mmol/L | EXTERNAL | | | | performed at [facility], [address] | | LAB | | | | [address], | | | | | | [place] [address] | | | | + + + + + + | CO2 | 22 (L)Comment: Testing | 23 - 32 mmol/L | EXTERNAL | | | | performed at [facility], [address] | | LAB | | | | [address], | | | | | | [place] [address] | | | | + + + + + + | Anion Gap | 20Comment: Testing | 5 - 20 mmol/L | EXTERNAL | | | | performed at [facility], [address] | | LAB | | | | [address], | | | | | | [place] [address] | | | | + + + + + + | Glucose, | 134 (H)Comment: Testing | 65 - 99 mg/dL | EXTERNAL | | | Fasting | performed at [facility], [address] | | LAB | | | | [address], | | | | | | [place] [address] | | | | + + + + + + | BUN | 72 (H)Comment: Testing | 8 - 25 mg/dL | EXTERNAL | | | | performed at [facility], [address] | | LAB | | | | [address], | | | | | | [place] [address] | | | | + + + + + + | Creatinine | 5.6 (H)Comment: Testing | 0.70 - 1.30 | EXTERNAL | | | | performed at [facility], [address] | mg/dL | LAB | | | | [address], | | | | | | [place] [address] | | | | + + + + + + | BUN/Creatin | 13Comment: Testing | | EXTERNAL | | | ine Ratio | performed at [facility], [address] | | LAB | | | | [address], | | | | | | [place] [address] | | | | + + + + + + | Calcium | 7.5 (L)Comment: Testing | 8.5 - 10.5 | EXTERNAL | | | | performed at [facility], [address] | mg/dL | LAB | | | | [address], | | | | | | [place] [address] | | | | + + + + + + | Estimated | 13 (L)Comment: GFR <60: | mL/min/1.73m2 | EXTERNAL | | | GFR | CHRONIC KIDNEY DISEASE, | | LAB | | | | IF FOUND OVER A 3 MONTH | | | | | | PERIOD.GFR <15: KIDNEY | | | | | | FAILURE.FOR | | | | | | AMERICANS, MULTIPLY THE | | | | | | CALCULATED GFR BY | | | | | | 1.210.Testing performed | | | | | | at [facility], [address] | | | | | | [address], | | | | | | [place] [address] | | | | + + + + + + + + | Specimen | + + | Blood specimen | | (specimen) | + + + +---------+ + + | Performing | Address | City/State/Zipcode | Phone Number | | Organization | | | | + +---------+ + + | EXTERNAL LAB | | | | + +---------+ + + XR Chest 1 Vw (10/12/2015 2:01 PM PDT) + + | Specimen | + + | | + + + + + | Impressions | Performed At | + + + | 1. Successful endotracheal intubation. 2. Persistent bilateral | | | pulmonary septic emboli. 3. Possible minimal bilateral pleural | | | effusions. Electronically signed by Dipak Aguilar MD on | | | 10/12/2015 2:08 PM | | + + + + + + | Narrative | Performed At | + + + | YANG RIDLEY XR CHEST 1 VIEW 10/12/2015 2:01 PM History: 30 | | | years. Male. Follow-up for respiratory failure and pulmonary | | | septic emboli. Technique: AP portable supine technique was | | | performed at 1357 hours. Comparison: 10/12/15 at 0513 hours | | | Findings: Persistent irregular nodular densities are noted | | | throughout both lung barry, consistent with healing pulmonary emboli. | | | Mild blunting of the costophrenic sulci is again noted | | | bilaterally. A new endotracheal tube is been placed with its tip | | | at T3-T4. A nasogastric catheter is in the body the stomach. A | | | persistent RIGHT internal jugular dialysis catheter is visualized with | | | its tip at the junction of the superior vena cava and RIGHT atrium. | | | A RIGHT brachial PICC line is visualized with this tip in the RIGHT | | | atrium. | | + + + + + | Procedure Note | + + | Elmer, Rad Conversion - 11/01/2018 7:23 PM PDT YANG CLARKE CHEST 1 VIEW10/12/2015 | | 2:01 PM History: 30 years. Male. Follow-up for respiratory failure and pulmonary | | septic emboli. Technique: AP portable supine technique was performed at 1357 | | hours.Comparison: 10/12/15 at 0513 hours Findings: Persistent irregular nodular | | densities are noted throughout both lung barry, consistent with healing pulmonary | | emboli. Mild blunting of the costophrenic sulci is again noted bilaterally. A new | | endotracheal tube is been placed with its tip at T3-T4. A nasogastric catheter is in | | the body the stomach. A persistent RIGHT internal jugular dialysis catheter is | | visualized with its tip at the junction of the superior vena cava and RIGHT atrium. A | | RIGHT brachial PICC line is visualized with this tip in the RIGHT atrium. IMPRESSION: 1. | | Successful endotracheal intubation.2. Persistent bilateral pulmonary septic | | emboli.3. Possible minimal bilateral pleural effusions. | |A new endotracheal tube is been placed with its tip at T3-T4. A nasogastric catheter is in the body the stomach. A persistent RIGHT internal jugular dialysis catheter is visualized with its tip at the junction of the superior vena cava and RIGHT | |atrium. A RIGHT brachial PICC line is visualized with this tip in the RIGHT atrium. | | | |IMPRESSION: | |1. Successful endotracheal intubation. | |2. Persistent bilateral pulmonary septic emboli. | |3. Possible minimal bilateral pleural effusions. | | | | | + + Allergen Chick Pea IgE (10/12/2015 11:41 AM PDT) + + | Specimen | + + | | + + + + + | Narrative | Performed At | + + + | Specimen Description MOUTH CULTURE | EXTERNAL LAB | | NO HERPES SIMPLEX VIRUS ISOLATED | | + + + + +---------+ + + | Performing | Address | City/State/Zipcode | Phone Number | | Organization | | | | + +---------+ + + | EXTERNAL LAB | | | | + +---------+ + + XR Chest 1 Vw (10/12/2015 5:25 AM PDT) + + | Specimen | + + | | + + + + + | Impressions | Performed At | + + + | 1. At least small bilateral pleural effusions. 2. Essentially | | | unchanged bilateral airspace and nodular/cavity opacities. | | | | | + + + + + + | Narrative | Performed At | + + + | YANG RIDLEY 1985 30 years XR CHEST 1 VIEW 10/12/2015 5:25 | | | AM INDICATION: Effusion TECHNIQUE: Frontal view | | | COMPARISON: Chest x-ray 10/11/2015 FINDINGS: Right-sided central | | | line and right-sided PICC line appears stable. At least small | | | bilateral pleural effusions seen. Diffuse bilateral mixed airspace and | | | nodular/cavitary opacities seen, essentially unchanged. | | | Cardiomediastinal silhouette appears stable. Osseous structures | | | appear unremarkable. | | + + + + + | Procedure Note | + + | Elmer, Rad Conversion - 11/01/2018 7:23 PM PDT YANG KEYANA1985 30 yearsXR CHEST 1 | | VIEW10/12/2015 5:25 AM INDICATION: Effusion TECHNIQUE: Frontal view COMPARISON: Chest | | x-ray 10/11/2015 FINDINGS: Right-sided central line and right-sided PICC line appears | | stable. At least small bilateral pleural effusions seen. Diffuse bilateral mixed | | airspace and nodular/cavitary opacities seen, essentially unchanged. Cardiomediastinal | | silhouette appears stable. Osseous structures appear unremarkable. IMPRESSION: 1. At | | least small bilateral pleural effusions.2. Essentially unchanged bilateral airspace and | | nodular/cavity opacities. | |TECHNIQUE: Frontal view | | | |COMPARISON: Chest x-ray 10/11/2015 | | | |FINDINGS: Right-sided central line and right-sided PICC line appears stable. At least smal l bilateral pleural effusions seen. Diffuse bilateral mixed airspace and nodular/cavitary op acities seen, essentially unchanged. Cardiomediastinal silhouette | |appears stable. Osseous structures appear unremarkable. | | | |IMPRESSION: | |1. At least small bilateral pleural effusions. | |2. Essentially unchanged bilateral airspace and nodular/cavity opacities. | | | | | + + PTT (10/12/2015 3:21 AM PDT) + + + + + + | Component | Value | Ref Range | Performed | Pathologist | | | | | At | Signature | + + + + + + | aPTT, | 32Comment: Testing | 23 - 32 seconds | EXTERNAL | | | Patient | performed at [facility];[address] | | LAB | | | | [address];[place] | | | | | | [address] | | | | + + + + + + + + | Specimen | + + | Blood specimen | | (specimen) | + + + +---------+ + + | Performing | Address | City/State/Zipcode | Phone Number | | Organization | | | | + +---------+ + + | EXTERNAL LAB | | | | + +---------+ + + Protime INR (10/12/2015 3:21 AM PDT) + + + + + + | Component | Value | Ref Range | Performed | Pathologist | | | | | At | Signature | + + + + + + | INR | 1.2Comment: REFERENCE | | EXTERNAL | | | | RANGE:0.9 - 1.2 | | LAB | | | | NON-ANTICOAGULATED2.0 | | | | | | - 3.0 ALL OTHER | | | | | | THERAPEUTIC | | | | | | INDICATIONS2.5 - 3.5 | | | | | | MECHANICAL HEART VALVES, | | | | | | RECURRENT OR SYSTEMIC | | | | | | EMBOLISMTesting | | | | | | performed at [facility] | | | | | | [facility];[place], [place] | | | | | | [address] | | | | + + + + + + + + | Specimen | + + | Blood specimen | | (specimen) | + + + +---------+ + + | Performing | Address | City/State/Zipcode | Phone Number | | Organization | | | | + +---------+ + + | EXTERNAL LAB | | | | + +---------+ + + External Lab: CBC (10/12/2015 3:21 AM PDT) + + + + + + | Component | Value | Ref Range | Performed | Pathologist | | | | | At | Signature | + + + + + + | WBC | 22.95 (H)Comment: | 3.80 - 11.00 | EXTERNAL | | | | Testing performed at | K/uL | LAB | | | | [facility], [address] [facility] | | | | | | [place] | | | | | | [address] | | | | + + + + + + | Non- | 2.63 (L)Comment: Testing | 4.20 - 5.70 | EXTERNAL | | | Red Blood | performed at [facility], [address] | [address]L | LAB | | | Cells | [address], | | | | | Counted | [place] [address] | | | | + + + + + + | Hemoglobin | 7.3 (L)Comment: Testing | 13.2 - 17.0 | EXTERNAL | | | | performed at [facility], [address] | g/dL | LAB | | | | [address], | | | | | | [place] [address] | | | | + + + + + + | Hematocrit, | 22.6 (L)Comment: Testing | 39.0 - 50.0 % | EXTERNAL | | | POC | performed at [facility], [address] | | LAB | | | | [address], | | | | | | [place] [address] | | | | + + + + + + | MCV | 85.8Comment: Testing | 80.0 - 100.0 fl | EXTERNAL | | | | performed at [facility], [address] | | LAB | | | | [address], | | | | | | [place] [address] | | | | + + + + + + | MCH | 27.7Comment: Testing | 27.0 - 34.0 pg | EXTERNAL | | | | performed at [facility], [address] | | LAB | | | | [address], | | | | | | [place] [address] | | | | + + + + + + | MCHC | 32.3Comment: Testing | 32.0 - 35.5 | EXTERNAL | | | | performed at [facility], [address] | g/dL | LAB | | | | [address], | | | | | | [place] [address] | | | | + + + + + + | RDW-CV | 50.3Comment: Testing | 37 - 53 fl | EXTERNAL | | | | performed at [facility], [address] | | LAB | | | | [address], | | | | | | [place] [address] | | | | + + + + + + | Platelet | 127 (L)Comment: Testing | 150 - 400 K/uL | EXTERNAL | | | Count | performed at [facility], [address] | | LAB | | | Plasma | [address], | | | | | | [place], [place] [address] | | | | + + + + + + | MPV | 8.8Comment: Testing | fl | EXTERNAL | | | | performed at [facility], [address] | | LAB | | | | [address], | | | | | | [place], [place] [address] | | | | + + + + + + | Differentia | MANUALComment: Testing | | EXTERNAL | | | l Type | performed at [facility], [address] | | LAB | | | | [address], | | | | | | [place], [place] [address] | | | | + + + + + + | Segmented | 87Comment: Testing | % | EXTERNAL | | | Neutrophils | performed at [facility], [address] | | LAB | | | Manual | [address], | | | | | | [place] [address] | | | | + + + + + + | % Bands | 2Comment: Testing | % | EXTERNAL | | | | performed at [facility], [address] | | LAB | | | | [address], | | | | | | [place] [address] | | | | + + + + + + | Lymphocytes | 9Comment: Testing | % | EXTERNAL | | | Manual | performed at [facility], [address] | | LAB | | | | [address], | | | | | | [place] [address] | | | | + + + + + + | Monocytes | 2Comment: Testing | % | EXTERNAL | | | Manual | performed at [facility], [address] | | LAB | | | | [address], | | | | | | [place] [address] | | | | + + + + + + | Absolute | 19.96 (H)Comment: | 1.90 - 7.40 | EXTERNAL | | | Neutrophils | Testing performed at | K/uL | LAB | | | | [facility], [address] [facility] | | | | | | [place] | | | | | | [address] | | | | + + + + + + | Bands | 0.46 (H)Comment: Testing | 0.00 - 0.20 | EXTERNAL | | | Manual | performed at [facility], [address] | [address] | LAB | | | | [address], | | | | | | [place] [address] | | | | + + + + + + | Absolute | 2.07Comment: Testing | 1.00 - 3.90 | EXTERNAL | | | Lymphocytes | performed at [facility], [address] | K/uL | LAB | | | | [address], | | | | | | [place] [address] | | | | + + + + + + | Absolute | 0.46Comment: Testing | 0.00 - 0.80 | EXTERNAL | | | Monocytes | performed at [facility], [address] | K/uL | LAB | | | | [facility] [address], | | | | | | [place] [address] | | | | + + + + + + | RBC | RBC AND PLT MORPHOLOGY | | EXTERNAL | | | Morphology | APPEAR NORMALComment: | | LAB | | | | Testing performed at | | | | | | [facility], [address] [facility] | | | | | | [place] | | | | | | [address] | | | | + + + + + + + + | Specimen | + + | Blood specimen | | (specimen) | + + + +---------+ + + | Performing | Address | City/State/Zipcode | Phone Number | | Organization | | | | + +---------+ + + | EXTERNAL LAB | | | | + +---------+ + + Phosphorus (10/12/2015 3:21 AM PDT) + + + + + + | Component | Value | Ref Range | Performed | Pathologist | | | | | At | Signature | + + + + + + | PHOSPHORUS | 3.6Comment: Testing | 2.3 - 4.8 mg/dL | EXTERNAL | | | | performed at [facility], [address] | | LAB | | | | [address], | | | | | | [place] [address] | | | | + + + + + + + + | Specimen | + + | Blood specimen | | (specimen) | + + + +---------+ + + | Performing | Address | City/State/Zipcode | Phone Number | | Organization | | | | + +---------+ + + | EXTERNAL LAB | | | | + +---------+ + + Magnesium (10/12/2015 3:21 AM PDT) + + + + + + | Component | Value | Ref Range | Performed | Pathologist | | | | | At | Signature | + + + + + + | Magnesium | 2.4Comment: Testing | 1.7 - 2.4 mg/dL | EXTERNAL | | | | performed at [facility], [address] | | LAB | | | | [address], | | | | | | [place] [address] | | | | + + + + + + + + | Specimen | + + | Blood specimen | | (specimen) | + + + +---------+ + + | Performing | Address | City/State/Zipcode | Phone Number | | Organization | | | | + +---------+ + + | EXTERNAL LAB | | | | + +---------+ + + Hepatic Function Panel (10/12/2015 3:21 AM PDT) + + + + + + | Component | Value | Ref Range | Performed | Pathologist | | | | | At | Signature | + + + + + + | Protein, | 5.8 (L)Comment: Testing | 6.3 - 8.2 g/dL | EXTERNAL | | | Total | performed at [facility], [address] | | LAB | | | | [address], | | | | | | [place] [address] | | | | + + + + + + | Albumin | 2.0 (L)Comment: Testing | 3.6 - 5.0 g/dL | EXTERNAL | | | | performed at [facility], [address] | | LAB | | | | [address], | | | | | | [place] [address] | | | | + + + + + + | Bilirubin | 4.4 (H)Comment: Testing | 0.1 - 1.5 mg/dL | EXTERNAL | | | Total | performed at [facility], [address] | | LAB | | | | [address], | | | | | | [place] [address] | | | | + + + + + + | Bilirubin | 1.7 (H)Comment: Testing | 0.0 - 0.3 mg/dL | EXTERNAL | | | Direct | performed at [facility], [address] | | LAB | | | | [address], | | | | | | [place] [address] | | | | + + + + + + | ALP, | 73Comment: Testing | 35 - 115 U/L | EXTERNAL | | | External | performed at [facility], [address] | | LAB | | | | [address], | | | | | | [place] [address] | | | | + + + + + + | AST | 33Comment: Testing | 10 - 45 U/L | EXTERNAL | | | | performed at [facility], [address] | | LAB | | | | [address], | | | | | | [place] [address] | | | | + + + + + + | ALT | 18Comment: Testing | 10 - 65 U/L | EXTERNAL | | | | performed at [facility], [address] | | LAB | | | | [address], | | | | | | [place] [address] | | | | + + + + + + + + | Specimen | + + | | + + + +---------+ + + | Performing | Address | City/State/Zipcode | Phone Number | | Organization | | | | + +---------+ + + | EXTERNAL LAB | | | | + +---------+ + + Basic Metabolic Panel (10/12/2015 3:21 AM PDT) + + + + + + | Component | Value | Ref Range | Performed | Pathologist | | | | | At | Signature | + + + + + + | Na | 134 (L)Comment: Testing | 135 - 145 | EXTERNAL | | | | performed at [facility], [address] | mmol/L | LAB | | | | [address], | | | | | | [place] [address] | | | | + + + + + + | K | 4.1Comment: Testing | 3.5 - 4.9 | EXTERNAL | | | | performed at [facility], [address] | mmol/L | LAB | | | | [address], | | | | | | [place] [address] | | | | + + + + + + | Cl | 98 (L)Comment: Testing | 99 - 109 mmol/L | EXTERNAL | | | | performed at [facility], [address] | | LAB | | | | [address], | | | | | | [place] [address] | | | | + + + + + + | CO2 | 26Comment: Testing | 23 - 32 mmol/L | EXTERNAL | | | | performed at [facility], [address] | | LAB | | | | [address], | | | | | | [place] [address] | | | | + + + + + + | Anion Gap | 14Comment: Testing | 5 - 20 mmol/L | EXTERNAL | | | | performed at [facility], [address] | | LAB | | | | [address], | | | | | | [place] [address] | | | | + + + + + + | Glucose, | 175 (H)Comment: Testing | 65 - 99 mg/dL | EXTERNAL | | | Fasting | performed at [facility], [address] | | LAB | | | | [address], | | | | | | [place] [address] | | | | + + + + + + | BUN | 43 (H)Comment: Testing | 8 - 25 mg/dL | EXTERNAL | | | | performed at [facility], [address] | | LAB | | | | [address], | | | | | | [place] [address] | | | | + + + + + + | Creatinine | 4.0 (H)Comment: Testing | 0.70 - 1.30 | EXTERNAL | | | | performed at [facility], [address] | mg/dL | LAB | | | | [address], | | | | | | [place] [address] | | | | + + + + + + | BUN/Creatin | 11Comment: Testing | | EXTERNAL | | | ine Ratio | performed at [facility], [address] | | LAB | | | | [address], | | | | | | [place] [address] | | | | + + + + + + | Calcium | 7.1 (L)Comment: Testing | 8.5 - 10.5 | EXTERNAL | | | | performed at [facility], [address] | mg/dL | LAB | | | | [address] [facility], | | | | | | [place] [address] | | | | + + + + + + | Estimated | 19 (L)Comment: GFR <60: | mL/min/1.73m2 | EXTERNAL | | | GFR | CHRONIC KIDNEY DISEASE, | | LAB | | | | IF FOUND OVER A 3 MONTH | | | | | | PERIOD.GFR <15: KIDNEY | | | | | | FAILURE.FOR | | | | | | AMERICANS, MULTIPLY THE | | | | | | CALCULATED GFR BY | | | | | | 1.210.Testing performed | | | | | | at [facility], [address] | | | | | | [address] [facility], | | | | | | [place] [address] | | | | + + + + + + + + | Specimen | + + | Blood specimen | | (specimen) | + + + +---------+ + + | Performing | Address | City/State/Zipcode | Phone Number | | Organization | | | | + +---------+ + + | EXTERNAL LAB | | | | + +---------+ + + PTT (10/11/2015 4:41 PM PDT) + + + + + + | Component | Value | Ref Range | Performed | Pathologist | | | | | At | Signature | + + + + + + | aPTT, | 43 (H)Comment: Testing | 23 - 32 seconds | EXTERNAL | | | Patient | performed at [facility];[address] | | LAB | | | | [address];[place] | | | | | | [address] | | | | + + + + + + + + | Specimen | + + | Blood specimen | | (specimen) | + + + +---------+ + + | Performing | Address | City/State/Zipcode | Phone Number | | Organization | | | | + +---------+ + + | EXTERNAL LAB | | | | + +---------+ + + Protime INR (10/11/2015 4:41 PM PDT) + + + + + + | Component | Value | Ref Range | Performed | Pathologist | | | | | At | Signature | + + + + + + | INR | 2.4Comment: REFERENCE | | EXTERNAL | | | | RANGE:0.9 - 1.2 | | LAB | | | | NON-ANTICOAGULATED2.0 | | | | | | - 3.0 ALL OTHER | | | | | | THERAPEUTIC | | | | | | INDICATIONS2.5 - 3.5 | | | | | | MECHANICAL HEART VALVES, | | | | | | RECURRENT OR SYSTEMIC | | | | | | EMBOLISMTesting | | | | | | performed at [facility];[address] | | | | | | [facility];[place], [place] | | | | | | [address] | | | | + + + + + + + + | Specimen | + + | Blood specimen | | (specimen) | + + + +---------+ + + | Performing | Address | City/State/Zipcode | Phone Number | | Organization | | | | + +---------+ + + | EXTERNAL LAB | | | | + +---------+ + + Fibrinogen (10/11/2015 4:41 PM PDT) + + + + + + | Component | Value | Ref Range | Performed | Pathologist | | | | | At | Signature | + + + + + + | Fibrinogen | 406Comment: Testing | 200 - 450 mg/dL | EXTERNAL | | | | performed at [facility];[address] | | LAB | | | | [address];[place] | | | | | | [address] | | | | + + + + + + + + | Specimen | + + | Blood specimen | | (specimen) | + + + +---------+ + + | Performing | Address | City/State/Zipcode | Phone Number | | Organization | | | | + +---------+ + + | EXTERNAL LAB | | | | + +---------+ + + External Lab: CBC (10/11/2015 4:41 PM PDT) + + + + + + | Component | Value | Ref Range | Performed | Pathologist | | | | | At | Signature | + + + + + + | WBC | 28.11 (H)Comment: | 3.80 - 11.00 | EXTERNAL | | | | Testing performed at | K/uL | LAB | | | | [facility];[address] | | | | | | [place] [address] | | | | + + + + + + | Non- | 2.92 (L)Comment: Testing | 4.20 - 5.70 | EXTERNAL | | | Red Blood | performed at [facility];[address] | M/uL | LAB | | | Cells | [address];[place] | | | | | Counted | [id number] | | | | + + + + + + | Hemoglobin | 7.9 (L)Comment: Testing | 13.2 - 17.0 | EXTERNAL | | | | performed at [facility];[address] | g/dL | LAB | | | | [address];[place] | | | | | | [address] | | | | + + + + + + | Hematocrit, | 24.7 (L)Comment: Testing | 39.0 - 50.0 % | EXTERNAL | | | POC | performed at [facility];[address] | | LAB | | | | [address];[place] | | | | | | [address] | | | | + + + + + + | MCV | 84.4Comment: Testing | 80.0 - 100.0 fl | EXTERNAL | | | | performed at [facility];[address] | | LAB | | | | [address];[place] | | | | | | [address] | | | | + + + + + + | MCH | 27.1Comment: Testing | 27.0 - 34.0 pg | EXTERNAL | | | | performed at [facility];[address] | | LAB | | | | [address];[place] | | | | | | [address] | | | | + + + + + + | MCHC | 32.1Comment: Testing | 32.0 - 35.5 | EXTERNAL | | | | performed at [facility];[address] | g/dL | LAB | | | | [address];[place] | | | | | | [address] | | | | + + + + + + | RDW-CV | 48.6Comment: Testing | 37 - 53 fl | EXTERNAL | | | | performed at [facility];[address] | | LAB | | | | [address];[place] | | | | | | [address] | | | | + + + + + + | Platelet | 149 (L)Comment: Testing | 150 - 400 K/uL | EXTERNAL | | | Count | performed at [facility];888 | | LAB | | | Plasma | [address];[place] | | | | | | [address] | | | | + + + + + + | MPV | 7.9Comment: Testing | fl | EXTERNAL | | | | performed at [facility];888 | | LAB | | | | [address];[place] | | | | | | [address] | | | | + + + + + + | Differentia | MANUALComment: Testing | | EXTERNAL | | | l Type | performed at [facility];888 | | LAB | | | | [address];[place] | | | | | | [address] | | | | + + + + + + | Segmented | 90Comment: Testing | % | EXTERNAL | | | Neutrophils | performed at [facility];888 | | LAB | | | Manual | [address];[place] | | | | | | [address] | | | | + + + + + + | % Bands | 3Comment: Testing | % | EXTERNAL | | | | performed at [facility];[address] | | LAB | | | | [address];[place] | | | | | | [address] | | | | + + + + + + | % | 1Comment: Testing | % | EXTERNAL | | | Metamyelocy | performed at [facility];888 | | LAB | | | ezio | [address];[place] | | | | | | [address] | | | | + + + + + + | Lymphocytes | 4Comment: Testing | % | EXTERNAL | | | Manual | performed at [facility];888 | | LAB | | | | [address];[place] | | | | | | [address] | | | | + + + + + + | Monocytes | 2Comment: Testing | % | EXTERNAL | | | Manual | performed at [facility];[address] | | LAB | | | | [address];[place] | | | | | | [address] | | | | + + + + + + | Absolute | 25.31 (H)Comment: | 1.90 - 7.40 | EXTERNAL | | | Neutrophils | Testing performed at | K/uL | LAB | | | | [facility];[address];[place] [address] | | | | + + + + + + | Bands | 0.84 (H)Comment: Testing | 0.00 - 0.20 | EXTERNAL | | | Manual | performed at [facility];[address] | K/uL | LAB | | | | [address];[place] | | | | | | [address] | | | | + + + + + + | Absolute | 0.28 (H)Comment: Testing | K/uL | EXTERNAL | | | Metamyelocy | performed at [facility];[address] | | LAB | | | ezio | [address];[place] | | | | | | [address] | | | | + + + + + + | Absolute | 1.12Comment: Testing | 1.00 - 3.90 | EXTERNAL | | | Lymphocytes | performed at [facility];[address] | K/uL | LAB | | | | [address];[place] | | | | | | [address] | | | | + + + + + + | Absolute | 0.56Comment: Testing | 0.00 - 0.80 | EXTERNAL | | | Monocytes | performed at [facility];[address] | K/uL | LAB | | | | [address];[place] | | | | | | [address] | | | | + + + + + + | RBC | 1+Comment: ANISONORMAL | | EXTERNAL | | | Morphology | PLT MORPHTesting | | LAB | | | | performed at [facility];[address] | | | | | | [address];[place], [place] | | | | | | [address] | | | | | | | | | | + + + + + + + + | Specimen | + + | Blood specimen | | (specimen) | + + + +---------+ + + | Performing | Address | City/State/Zipcode | Phone Number | | Organization | | | | + +---------+ + + | EXTERNAL LAB | | | | + +---------+ + + XR Chest 1 Vw (10/11/2015 11:53 AM PDT) + + | Specimen | + + | | + + + + + | Impressions | Performed At | + + + | Interval removal of left chest tube. No pneumothorax. Other | | | findings as above. Electronically signed by Shawn Gilmore MD on | | | 10/11/2015 12:05 PM | | + + + + + + | Narrative | Performed At | + + + | [birth year]ANG [birth year]LEY 1985 30 years XR CHEST 1 VIEW 10/11/2015 11:53 | | | AM INDICATION: Removal of chest tube. COMPARISON: October 10 | | | 2015 TECHNIQUE: Chest 1 view, AP view of the chest FINDINGS: | | | Interval removal of left chest tube. No pneumothorax. Bilateral | | | patchy consolidation and cavitary lesions consistent with septic | | | emboli/infection. Upper mediastinal contours are normal. Heart | | | size is unchanged. Right internal jugular central venous catheter tip | | | within the right atrium. No acute osseous abnormality. | | + + + + + | Procedure Note | + + | Elmer, Erasmo Conversion - 11/01/2018 7:23 PM PDT Y[place] RIDLEY1985 30 yearsXR CHEST 1 | | VIEW10/11/2015 11:53 AM INDICATION: Removal of chest tube. COMPARISON: October 11, 2015 | | TECHNIQUE: Chest 1 view, AP view of the chest FINDINGS: Interval removal of left chest | | tube. No pneumothorax. Bilateral patchy consolidation and cavitary lesions consistent | | with septic emboli/infection. Upper mediastinal contours are normal. Heart size is | | unchanged. Right internal jugular central venous catheter tip within the right atrium. | | No acute osseous abnormality. IMPRESSION: Interval removal of left chest tube. No | | pneumothorax. Other findings as above. Electronically signed by Shawn Gilmore MD on | | 10/11/2015 12:05 PM | | | |TECHNIQUE: Chest 1 view, AP view of the chest | | | |FINDINGS: | | | |Interval removal of left chest tube. No pneumothorax. | | | |Bilateral patchy consolidation and cavitary lesions consistent with septic emboli/infection . | | | |Upper mediastinal contours are normal. Heart size is unchanged. Right internal jugular cent ral venous catheter tip within the right atrium. | | | |No acute osseous abnormality. | | | |IMPRESSION: | | | |Interval removal of left chest tube. No pneumothorax. Other findings as above. | | | | | + + Protime INR (10/11/2015 8:53 AM PDT) + + + + + + | Component | Value | Ref Range | Performed | Pathologist | | | | | At | Signature | + + + + + + | INR | 2.1Comment: REFERENCE | | EXTERNAL | | | | RANGE:0.9 - 1.2 | | LAB | | | | NON-ANTICOAGULATED2.0 | | | | | | - 3.0 ALL OTHER | | | | | | THERAPEUTIC | | | | | | INDICATIONS2.5 - 3.5 | | | | | | MECHANICAL HEART VALVES, | | | | | | RECURRENT OR SYSTEMIC | | | | | | EMBOLISMTesting | | | | | | performed at [facility];[address] | | | | | | [address];[place], [place] | | | | | | [address] | | | | + + + + + + + + | Specimen | + + | Blood specimen | | (specimen) | + + + +---------+ + + | Performing | Address | City/State/Zipcode | Phone Number | | Organization | | | | + +---------+ + + | EXTERNAL LAB | | | | + +---------+ + + External Lab: CBC (10/11/2015 8:53 AM PDT) + + + + + + | Component | Value | Ref Range | Performed | Pathologist | | | | | At | Signature | + + + + + + | WBC | 30.41 ()Comment: | 3.80 - 11.00 | EXTERNAL | | | | CALLED NURSING UNITREAD | K/uL | LAB | | | | BACK RESULTS | | | | | | VERIFIEDJAMES Z IN ICU | | | | | | AT 0921 BY CRKTesting | | | | | | performed at [facility];[address] | | | | | | [address];[place], [place] | | | | | | [address] | | | | + + + + + + | Non- | 3.16 (L)Comment: Testing | 4.20 - 5.70 | EXTERNAL | | | Red Blood | performed at [facility];[address] | M/uL | LAB | | | Cells | [address];[place] | | | | | Counted | [id number] | | | | + + + + + + | Hemoglobin | 8.8 (L)Comment: Testing | 13.2 - 17.0 | EXTERNAL | | | | performed at [facility];[address] | g/dL | LAB | | | | [address];[place] | | | | | | [address] | | | | + + + + + + | Hematocrit, | 26.5 (L)Comment: Testing | 39.0 - 50.0 % | EXTERNAL | | | POC | performed at [facility];[address] | | LAB | | | | [address];[place] | | | | | | [address] | | | | + + + + + + | MCV | 83.9Comment: Testing | 80.0 - 100.0 fl | EXTERNAL | | | | performed at [facility];[address] | | LAB | | | [address];[place] | | | | | | [address] | | | | + + + + + + | MCH | 27.7Comment: Testing | 27.0 - 34.0 pg | EXTERNAL | | | | performed at [facility];[address] | | LAB | | | | [address];[place] | | | | | | [address] | | | | + + + + + + | MCHC | 33.0Comment: Testing | 32.0 - 35.5 | EXTERNAL | | | | performed at [facility];[address] | g/dL | LAB | | | | [address];[place] | | | | | | [address] | | | | + + + + + + | RDW-CV | 47.3Comment: Testing | 37 - 53 fl | EXTERNAL | | | | performed at [facility];[address] | | LAB | | | | [address];[place] | | | | | | [address] | | | | + + + + + + | Platelet | 169Comment: Testing | 150 - 400 K/uL | EXTERNAL | | | Count | performed at [facility];[address] | | LAB | | | Plasma | [address];[place] | | | | | | [address] | | | | + + + + + + | MPV | 8.0Comment: Testing | fl | EXTERNAL | | | | performed at [facility];[address] | | LAB | | | | [address];[place] | | | | | | [address] | | | | + + + + + + | Differentia | MANUALComment: Testing | | EXTERNAL | | | l Type | performed at [facility];[address] | | LAB | | | | [address];[place] | | | | | | [address] | | | | + + + + + + | Segmented | 82Comment: Testing | % | EXTERNAL | | | Neutrophils | performed at [facility];[address] | | LAB | | | Manual | [address];[place] | | | | | | [address] | | | | + + + + + + | % Bands | 5Comment: Testing | % | EXTERNAL | | | | performed at [facility];[address] | | LAB | | | | [address];[place] | | | | | | [address] | | | | + + + + + + | % | 1Comment: Testing | % | EXTERNAL | | | Metamyelocy | performed at [facility];[address] | | LAB | | | ezio | [address];[place] | | | | | | [address] | | | | + + + + + + | Lymphocytes | 10Comment: Testing | % | EXTERNAL | | | Manual | performed at [facility];[address] | | LAB | | | | [address];[place] | | | | | | [address] | | | | + + + + + + | Monocytes | 2Comment: Testing | % | EXTERNAL | | | Manual | performed at [facility];[address] | | LAB | | | | [address];[place] | | | | | | [address] | | | | + + + + + + | Absolute | 24.94 (H)Comment: | 1.90 - 7.40 | EXTERNAL | | | Neutrophils | Testing performed at | K/uL | LAB | | | | [facility];[address];[place] [address] | | | | + + + + + + | Bands | 1.52 (H)Comment: Testing | 0.00 - 0.20 | EXTERNAL | | | Manual | performed at [facility];[address] | K/uL | LAB | | | | [address];[place] | | | | | | [address] | | | | + + + + + + | Absolute | 0.30 (H)Comment: Testing | K/uL | EXTERNAL | | | Metamyelocy | performed at [facility];[address] | | LAB | | | [address] | [address];[place] | | | | | | [address] | | | | + + + + + + | Absolute | 3.04Comment: Testing | 1.00 - 3.90 | EXTERNAL | | | Lymphocytes | performed at [facility];[address] | K/uL | LAB | | | | [address];[place] | | | | | | [address] | | | | + + + + + + | Absolute | 0.61Comment: Testing | 0.00 - 0.80 | EXTERNAL | | | Monocytes | performed at [facility];[address] | K/uL | LAB | | | | [address];[place] | | | | | | [address] | | | | + + + + + + | RBC | RBC AND PLT MORPHOLOGY | | EXTERNAL | | | Morphology | APPEAR NORMALComment: | | LAB | | | | Testing performed at | | | | | | [facility];[address];[place] [address] | | | | + + + + + + + + | Specimen | + + | Blood specimen | | (specimen) | + + + +---------+ + + | Performing | Address | City/State/Zipcode | Phone Number | | Organization | | | | + +---------+ + + | EXTERNAL LAB | | | | + +---------+ + + ECG 12 lead (10/11/2015 6:38 AM PDT) + + + + + + | Component | Value | Ref Range | Performed | Pathologist | | | | | At | Signature | + + + + + + | DIAGNOSIS: | Sinus | | EXTERNAL | | | | tachycardiaNonspecific | | LAB | | | | ST and T wave | | | | | | abnormalityAbnormal | | | | | | ECGNo previous ECGs | | | | | | availableConfirmed by | | | | | | KWESI VILLANUEVA ([id number]) on | | | | | | 10/11/2015 9:18:17 PM | | | | + + + + + + + + | Specimen | + + | | + + + + + | Narrative | Performed At | + + + | Historically converted procedure from [facility] Epic environment | EXTERNAL LAB | + + + + +---------+ + + | Performing | Address | City/State/Zipcode | Phone Number | | Organization | | | | + +---------+ + + | EXTERNAL LAB | | | | + +---------+ + + XR Abdomen AP (10/11/2015 5:58 AM PDT) + + | Specimen | + + | | + + + + + | Impressions | Performed At | + + + | Nonspecific, nonobstructive bowel gas pattern. No acute osseous | | | abnormality. No pneumatosis. No portal venous gas. No evidence of | | | pneumoperitoneum. Electronically signed by Shawn Gilmore MD on | | | 10/11/2015 7:06 AM | | + + + + + + | Narrative | Performed At | + + + | YANG RIDLEY 1985 XR ABDOMEN 1 VIEW 10/11/2015 5:58 AM | | | INDICATION: Abdominal pain COMPARISON: None TECHNIQUE: | | | Abdominal series, 2 views. | | + + + + + | Procedure Note | + + | Elmer, Rad Conversion - 11/01/2018 7:23 PM PDT YANG ELDER1985XR ABDOMEN 1 | | VIEW10/11/2015 5:58 AM INDICATION: Abdominal pain COMPARISON: None TECHNIQUE: Abdominal | | series, 2 views. IMPRESSION: Nonspecific, nonobstructive bowel gas pattern. No acute | | osseous abnormality. No pneumatosis. No portal venous gas. No evidence of | | pneumoperitoneum. | |INDICATION: Abdominal pain | | | |COMPARISON: None | | | |TECHNIQUE: Abdominal series, 2 views. | | | |IMPRESSION: | | | |Nonspecific, nonobstructive bowel gas pattern. No acute osseous abnormality. No pneumatosis . No portal venous gas. No evidence of pneumoperitoneum. | | | | | + + XR Chest 1 Vw (10/11/2015 5:57 AM PDT) + + | Specimen | + + | | + + + + + | Impressions | Performed At | + + + | 1. Tubes and lines in expected position. 2. Bilateral patchy | | | consolidation and cavitary lesions consistent with septic | | | emboli/infection Electronically signed by Shawn Gilmore MD on | | | 10/11/2015 7:05 AM | | + + + + + + | Narrative | Performed At | + + + | YANG RIDLEY 1985 30 years XR CHEST 1 VIEW 10/11/2015 5:57 | | | AM INDICATION: Left pleural catheter. COMPARISON: October 09 | | | 2015 TECHNIQUE: Chest 1 view, AP view of the chest FINDINGS: | | | No pneumothorax. Patchy bilateral consolidation of the lungs | | | consistent with cavitary lesions/septic emboli is similar to the prior | | | exam. Left pleural catheter is in unchanged position overlying | | | the pleural space. No pneumothorax. Small bilateral pleural | | | effusions. Low lung volumes. Right PICC tip near the caval atrial | | | junction. Right internal jugular central venous catheter tip right | | | atrium. No acute osseous abnormality. | | + + + + + | Procedure Note | + + | Erasmo Payne Conversion - 11/01/2018 7:23 PM YNES RIDLEY1985 30 yearsXR CHEST 1 | | VIEW10/11/2015 5:57 AM INDICATION: Left pleural catheter. COMPARISON: October 10, 2015 | | TECHNIQUE: Chest 1 view, AP view of the chest FINDINGS:No pneumothorax. Patchy bilateral | | consolidation of the lungs consistent with cavitary lesions/septic emboli is similar to | | the prior exam. Left pleural catheter is in unchanged position overlying the pleural | | space. No pneumothorax. Small bilateral pleural effusions. Low lung volumes. Right PICC | | tip near the caval atrial junction. Right internal jugular central venous catheter tip | | right atrium. No acute osseous abnormality. IMPRESSION: 1. Tubes and lines in expected | | position.2. Bilateral patchy consolidation and cavitary lesions consistent with septic | | emboli/infection | |TECHNIQUE: Chest 1 view, AP view of the chest | | | |FINDINGS: | |No pneumothorax. Patchy bilateral consolidation of the lungs consistent with cavitary lesio ns/septic emboli is similar to the prior exam. | | | |Left pleural catheter is in unchanged position overlying the pleural space. | | | |No pneumothorax. Small bilateral pleural effusions. Low lung volumes. | | | |Right PICC tip near the caval atrial junction. Right internal jugular central venous cathet er tip right atrium. No acute osseous abnormality. | | | |IMPRESSION: | | | | | |1. Tubes and lines in expected position. | |2. Bilateral patchy consolidation and cavitary lesions consistent with septic emboli/infect ion | | | | | + + External Lab: CBC (10/11/2015 4:54 AM PDT) + + + + + + | Component | Value | Ref Range | Performed | Pathologist | | | | | At | Signature | + + + + + + | WBC | 26.55 (H)Comment: | 3.80 - 11.00 | EXTERNAL | | | | Testing performed at | K/uL | LAB | | | | [facility];[address];[place] [address] | | | | + + + + + + | Non- | 3.20 (L)Comment: Testing | 4.20 - 5.70 | EXTERNAL | | | Red Blood | performed at [facility];[address] | M/uL | LAB | | | Cells | [address];[place] | | | | | Counted | [id number] | | | | + + + + + + | Hemoglobin | 8.8 (L)Comment: Testing | 13.2 - 17.0 | EXTERNAL | | | | performed at [facility];[address] | g/dL | LAB | | | | [address];[place] | | | | | | [address] | | | | + + + + + + | Hematocrit, | 27.0 (L)Comment: Testing | 39.0 - 50.0 % | EXTERNAL | | | POC | performed at [facility];[address] | | LAB | | | | [address];[place] | | | | | | [address] | | | | + + + + + + | MCV | 84.4Comment: Testing | 80.0 - 100.0 fl | EXTERNAL | | | | performed at [facility];[address] | | LAB | | | | [address];[place] | | | | | | [address] | | | | + + + + + + | MCH | 27.3Comment: Testing | 27.0 - 34.0 pg | EXTERNAL | | | | performed at [facility];[address] | | LAB | | | | [address];[place] | | | | | | [address] | | | | + + + + + + | MCHC | 32.4Comment: Testing | 32.0 - 35.5 | EXTERNAL | | | | performed at [facility];[address] | g/dL | LAB | | | | [address];[place] | | | | | | [address] | | | | + + + + + + | RDW-CV | 48.1Comment: Testing | 37 - 53 fl | EXTERNAL | | | | performed at [facility];[address] | | LAB | | | | [address];[place] | | | | | | [address] | | | | + + + + + + | Platelet | 170Comment: Testing | 150 - 400 K/uL | EXTERNAL | | | Count | performed at [facility];[address] | | LAB | | | Plasma | [address];[place] | | | | | | [address] | | | | + + + + + + | MPV | 8.3Comment: Testing | fl | EXTERNAL | | | | performed at [facility];[address] | | LAB | | | | [address];[place] | | | | | | [address] | | | | + + + + + + | Differentia | MANUALComment: Testing | | EXTERNAL | | | l Type | performed at [facility];[address] | | LAB | | | | [address];[place] | | | | | | [address] | | | | + + + + + + | Segmented | 84Comment: Testing | % | EXTERNAL | | | Neutrophils | performed at [facility];[address] | | LAB | | | Manual | [address];[place] | | | | | | [address] | | | | + + + + + + | % Bands | 7Comment: Testing | % | EXTERNAL | | | | performed at [facility];[address] | | LAB | | | | [address];[place] | | | | | | [address] | | | | + + + + + + | % | 1Comment: Testing | % | EXTERNAL | | | Metamyelocy | performed at [facility];[address] | | LAB | | | ezio | [address];[place] | | | | | | [address] | | | | + + + + + + | Lymphocytes | 3Comment: Testing | % | EXTERNAL | | | Manual | performed at [facility];[address] | | LAB | | | | [address];[place] | | | | | | [address] | | | | + + + + + + | Monocytes | 5Comment: Testing | % | EXTERNAL | | | Manual | performed at [facility];[address] | | LAB | | | | [address];[place] | | | | | | [address] | | | | + + + + + + | Absolute | 22.29 (H)Comment: | 1.90 - 7.40 | EXTERNAL | | | Neutrophils | Testing performed at | K/uL | LAB | | | | [facility];[address];[place] [address] | | | | + + + + + + | Bands | 1.86 (H)Comment: Testing | 0.00 - 0.20 | EXTERNAL | | | Manual | performed at [facility];[address] | K/uL | LAB | | | | [address];[place] | | | | | | [address] | | | | + + + + + + | Absolute | 0.27 (H)Comment: Testing | K/uL | EXTERNAL | | | Metamyelocy | performed at [facility];[address] | | LAB | | | ezio | [address];[place] | | | | | | [address] | | | | + + + + + + | Absolute | 0.80 (L)Comment: Testing | 1.00 - 3.90 | EXTERNAL | | | Lymphocytes | performed at [facility];[address] | K/uL | LAB | | | | [address];[place] | | | | | | [address] | | | | + + + + + + | Absolute | 1.33 (H)Comment: Testing | 0.00 - 0.80 | EXTERNAL | | | Monocytes | performed at [facility];[address] | K/uL | LAB | | | | [address];[place] | | | | | | [address] | | | | + + + + + + | RBC | RBC AND PLT MORPHOLOGY | | EXTERNAL | | | Morphology | APPEAR NORMALComment: | | LAB | | | | Testing performed at | | | | | | [facility];[address];[place] [address] | | | | + + + + + + + + | Specimen | + + | Blood specimen | | (specimen) | + + + +---------+ + + | Performing | Address | City/State/Zipcode | Phone Number | | Organization | | | | + +---------+ + + | EXTERNAL LAB | | | | + +---------+ + + Phosphorus (10/11/2015 4:54 AM PDT) + + + + + + | Component | Value | Ref Range | Performed | Pathologist | | | | | At | Signature | + + + + + + | PHOSPHORUS | 5.3 (H)Comment: Testing | 2.3 - 4.8 mg/dL | EXTERNAL | | | | performed at [facility];[address] | | LAB | | | | [address];[place] | | | | | | [address] | | | | + + + + + + + + | Specimen | + + | Blood specimen | | (specimen) | + + + +---------+ + + | Performing | Address | City/State/Zipcode | Phone Number | | Organization | | | | + +---------+ + + | EXTERNAL LAB | | | | + +---------+ + + Magnesium (10/11/2015 4:54 AM PDT) + + + + + + | Component | Value | Ref Range | Performed | Pathologist | | | | | At | Signature | + + + + + + | Magnesium | 2.6 (H)Comment: SLT | 1.7 - 2.4 mg/dL | EXTERNAL | | | | HEMOLYSISTesting | | LAB | | | | performed at [facility];[address] | | | | | [address];[place], [place] | | | | | | [address] | | | | + + + + + + + + | Specimen | + + | Blood specimen | | (specimen) | + + + +---------+ + + | Performing | Address | City/State/Zipcode | Phone Number | | Organization | | | | + +---------+ + + | EXTERNAL LAB | | | | + +---------+ + + Hepatic Function Panel (10/11/2015 4:54 AM PDT) + + + + + + | Component | Value | Ref Range | Performed | Pathologist | | | | | At | Signature | + + + + + + | Protein, | 6.0 (L)Comment: Testing | 6.3 - 8.2 g/dL | EXTERNAL | | | Total | performed at [facility];[address] | | LAB | | | | [address];[place] | | | | | | [address] | | | | + + + + + + | Albumin | 1.6 (L)Comment: Testing | 3.6 - 5.0 g/dL | EXTERNAL | | | | performed at [facility];[address] | | LAB | | | | [address];[place] | | | | | | [address] | | | | + + + + + + | Bilirubin | 4.1 (H)Comment: Testing | 0.1 - 1.5 mg/dL | EXTERNAL | | | Total | performed at [facility];[address] | | LAB | | | | [address];[place] | | | | | | [address] | | | | + + + + + + | Bilirubin | 1.4 (H)Comment: Testing | 0.0 - 0.3 mg/dL | EXTERNAL | | | Direct | performed at [facility];[address] | | LAB | | | | [address];[place] | | | | | | [address] | | | | + + + + + + | ALP, | 72Comment: Testing | 35 - 115 U/L | EXTERNAL | | | External | performed at [facility];[address] | | LAB | | | | [address];[place] | | | | | | [address] | | | | + + + + + + | AST | 26Comment: SLT | 10 - 45 U/L | EXTERNAL | | | | HEMOLYSISTesting | | LAB | | | | performed at [facility];[address] | | | | | | [address];[place] | | | | | | [address] | | | | + + + + + + | ALT | 19Comment: Testing | 10 - 65 U/L | EXTERNAL | | | | performed at [facility];[address] | | LAB | | | | [address];[place], [place] | | | | | | [address] | | | | + + + + + + + + | Specimen | + + | | + + + +---------+ + + | Performing | Address | City/State/Zipcode | Phone Number | | Organization | | | | + +---------+ + + | EXTERNAL LAB | | | | + +---------+ + + Basic Metabolic Panel (10/11/2015 4:54 AM PDT) + + + + + + | Component | Value | Ref Range | Performed | Pathologist | | | | | At | Signature | + + + + + + | Na | 130 (L)Comment: Testing | 135 - 145 | EXTERNAL | | | | performed at [facility];[address] | mmol/L | LAB | | | | [address];[place] | | | | | | [address] | | | | + + + + + + | K | 4.4Comment: SLT | 3.5 - 4.9 | EXTERNAL | | | | HEMOLYSISTesting | mmol/L | LAB | | | | performed at [facility];[address] | | | | | | [address];[place] | | | | | | [address] | | | | + + + + + + | Cl | 95 (L)Comment: Testing | 99 - 109 mmol/L | EXTERNAL | | | | performed at [facility];[address] | | LAB | | | | [address];[place] | | | | | | [address] | | | | + + + + + + | CO2 | 27Comment: Testing | 23 - 32 mmol/L | EXTERNAL | | | | performed at [facility];[address] | | LAB | | | | [address];[place] | | | | | | [address] | | | | + + + + + + | Anion Gap | 12Comment: Testing | 5 - 20 mmol/L | EXTERNAL | | | | performed at [facility];[address] | | LAB | | | | [address];[place] | | | | | | [address] | | | | + + + + + + | Glucose, | 171 (H)Comment: Testing | 65 - 99 mg/dL | EXTERNAL | | | Fasting | performed at [facility];[address] | | LAB | | | | [address];[place] | | | | | | [address] | | | | + + + + + + | BUN | 46 (H)Comment: Testing | 8 - 25 mg/dL | EXTERNAL | | | | performed at [facility];[address] | | LAB | | | | [address];[place] | | | | | | [address] | | | | + + + + + + | Creatinine | 4.8 (H)Comment: Testing | 0.70 - 1.30 | EXTERNAL | | | | performed at [facility];888 | mg/dL | LAB | | | | [address];[place] | | | | | | [address] | | | | + + + + + + | BUN/Creatin | 10Comment: Testing | | EXTERNAL | | | ine Ratio | performed at [facility];[address] | | LAB | | | | [address];[place] | | | | | | [address] | | | | + + + + + + | Calcium | 7.1 (L)Comment: Testing | 8.5 - 10.5 | EXTERNAL | | | | performed at [facility];888 | mg/dL | LAB | | | | [address];[place] | | | | | | [address] | | | | + + + + + + | Estimated | 15 (L)Comment: GFR <60: | mL/min/1.73m2 | EXTERNAL | | | GFR | CHRONIC KIDNEY DISEASE, | | LAB | | | | IF FOUND OVER A 3 MONTH | | | | | | PERIOD.GFR <15: KIDNEY | | | | | | FAILURE.FOR | | | | | | AMERICANS, MULTIPLY THE | | | | | | CALCULATED GFR BY | | | | | | 1.210.Testing performed | | | | | | at [facility];[address];[place] [address] | | | | + + + + + + + + | Specimen | + + | Blood specimen | | (specimen) | + + + +---------+ + + | Performing | Address | City/State/Zipcode | Phone Number | | Organization | | | | + +---------+ + + | EXTERNAL LAB | | | | + +---------+ + + Potassium (10/10/2015 6:46 PM PDT) + + + + + + | Component | Value | Ref Range | Performed | Pathologist | | | | | At | Signature | + + + + + + | K | 4.4Comment: Testing | 3.5 - 4.9 | EXTERNAL | | | | performed at [facility];[address] | mmol/L | LAB | | | | [address];[place], [place] | | | | | | [address] | | | | + + + + + + + + | Specimen | + + | Blood specimen | | (specimen) | + + + +---------+ + + | Performing | Address | City/State/Zipcode | Phone Number | | Organization | | | | + +---------+ + + | EXTERNAL LAB | | | | + +---------+ + + Phosphorus (10/10/2015 6:46 PM PDT) + + + + + + | Component | Value | Ref Range | Performed | Pathologist | | | | | At | Signature | + + + + + + | PHOSPHORUS | 4.4Comment: Testing | 2.3 - 4.8 mg/dL | EXTERNAL | | | | performed at [facility];[address] | | LAB | | | | [address];[place], [place] | | | | | | [address] | | | | + + + + + + + + | Specimen | + + | Blood specimen | | (specimen) | + + + +---------+ + + | Performing | Address | City/State/Zipcode | Phone Number | | Organization | | | | + +---------+ + + | EXTERNAL LAB | | | | + +---------+ + + Magnesium (10/10/2015 6:46 PM PDT) + + + + + + | Component | Value | Ref Range | Performed | Pathologist | | | | | At | Signature | + + + + + + | Magnesium | 2.7 (H)Comment: Testing | 1.7 - 2.4 mg/dL | EXTERNAL | | | | performed at [facility] | | LAB | | | | [address];[place], [place] | | | | | | [address] | | | | + + + + + + + + | Specimen | + + | Blood specimen | | (specimen) | + + + +---------+ + + | Performing | Address | City/State/Zipcode | Phone Number | | Organization | | | | + +---------+ + + | EXTERNAL LAB | | | | + +---------+ + + XR Chest 1 Vw (10/10/2015 7:12 AM PDT) + + | Specimen | + + | | + + + + + | Impressions | Performed At | + + + | 1. Placement of a left-sided percutaneous pigtail catheter with | | | significant decrease in size of left pleural effusion, now small. | | | | | + + + + + + | Narrative | Performed At | + + + | YANG RIDLEY 1985 30 years XR CHEST 1 VIEW 10/10/2015 7:12 | | | AM INDICATION: Left chest tube placement. TECHNIQUE: Frontal | | | view. COMPARISON: Chest x-ray 10/09/2015. FINDINGS: Interval | | | placement of a percutaneous pigtail catheter over the left base | | | representing insignificant decrease in size of left pleural effusion, | | | now small. Unchanged small right pleural effusion seen. No | | | pneumothorax seen. Unchanged bilateral patchy airspace opacities | | | mixed with interstitial opacities, likely representing edema and/or | | | pneumonia. Right-sided central line and PICC line appears stable. | | | Cardiomediastinal silhouette and osseous structures appear | | | unremarkable. | | + + + + + | Procedure Note | + + | Elmer, Rad Conversion - 11/01/2018 7:23 PM PDT YANG ELDER yearsXR CHEST 1 | | VIEW10/10/2015 7:12 AM INDICATION: Left chest tube placement. TECHNIQUE: Frontal view. | | COMPARISON: Chest x-ray 10/09/2015. FINDINGS: Interval placement of a percutaneous | | pigtail catheter over the left base representing insignificant decrease in size of left | | pleural effusion, now small. Unchanged small right pleural effusion seen. No | | pneumothorax seen. Unchanged bilateral patchy airspace opacities mixed with interstitial | | opacities, likely representing edema and/or pneumonia. Right-sided central line and | | PICC line appears stable. Cardiomediastinal silhouette and osseous structures appear | | unremarkable. IMPRESSION: 1. Placement of a left-sided percutaneous pigtail catheter | | with significant decrease in size of left pleural effusion, now small. Electronically | | signed by Ramone Abarca MD on 10/10/2015 7:21 AM | | | |FINDINGS: Interval placement of a percutaneous pigtail catheter over the left base represe nting insignificant decrease in size of left pleural effusion, now small. Unchanged small ri ght pleural effusion seen. No pneumothorax seen. Unchanged bilateral | |patchy airspace opacities mixed with interstitial opacities, likely representing edema and/ or pneumonia. Right-sided central line and PICC line appears stable. Cardiomediastinal silho uette and osseous structures appear unremarkable. | | | |IMPRESSION: | |1. Placement of a left-sided percutaneous pigtail catheter with significant decrease in si ze of left pleural effusion, now small. | | | | | + + Culture, Body Fluid, Sterile, Smear, with Anaerobes (10/10/2015 6:18 AM PDT) + + | Specimen | + + | Body fluid sample | | (specimen) | + + + + + | Narrative | Performed At | + + + | Specimen Description PLEURAL FLUID GRAM STAIN | EXTERNAL LAB | | 1+ | | | WBC'S SEEN | | | NO ORGANISMS SEEN CULTURE | | | NO GROWTH 4 DAYS | | + + + + +---------+ + + | Performing | Address | City/State/Zipcode | Phone Number | | Organization | | | | + +---------+ + + | EXTERNAL LAB | | | | + +---------+ + + Cell Count, Body Fluid (10/10/2015 6:18 AM PDT) + + | Specimen | + + | Body fluid sample | | (specimen) | + + + + + | Narrative | Performed At | + + + | FLUID TYPE PLEURAL FLUID | EXTERNAL LAB | | Testing performed at [facility];[address];[place] [address] COLOR | | | RED Testing | | | performed at [facility]; [address];[place] [address] APPEARANCE | | | CLOUDY Testing performed at [facility];[address] | | | [address];[place] [address] RBC'S | | | 166509 Testing performed at [facility];[address] | [address];[place] [address] TOTAL NUCLEATED CELLS 3460 | | | Testing performed at [facility];[address];[place] [address] | | | NEUTROPHILS 91 Testing | | | performed at [facility]; [address];[place] [address] LYMPHOCYTES | | | 6 Testing performed at | | | [facility]; [address];[place] [address] MONOCYTES/MACROPHAGES | | | 3 Testing performed at [facility];[address];[place] [address] EOSINOPHILS | | | 0 Testing performed at [facility]; [address];[place], [place] | | | [address] Mesothelial Cells 0 | | | Testing performed at [facility]; [address];[place] [address] OTHER CELLS | | | 0 Testing performed | | | at [facility]; [address];[place] [address] CELLS COUNTED | | | 100 Testing performed at [facility]; [address];[place] [address] | | + + + + +---------+ + + | Performing | Address | City/State/Zipcode | Phone Number | | Organization | | | | + +---------+ + + | EXTERNAL LAB | | | | + +---------+ + + External Lab: Protein, Total (10/10/2015 6:18 AM PDT) + + | Specimen | + + | Body fluid sample | | (specimen) | + + + + + | Narrative | Performed At | + + + | FLUID TOTAL PROTEIN 4.2 This is | EXTERNAL LAB | | not a manufacturing maintenance manager validated sample type for this method. No reference | | | ranges have been established. Testing performed at [facility], [address] | | [place] [address] FLUID TP SOURCE | | | NOT GIVEN Testing performed at [facility], [address] | | | [place] [address] | | + + + + +---------+ + + | Performing | Address | City/State/Zipcode | Phone Number | | Organization | | | | + +---------+ + + | EXTERNAL LAB | | | | + +---------+ + + Lactate Dehydrogenase, Body Fluid (10/10/2015 6:18 AM PDT) + + | Specimen | + + | Body fluid sample | | (specimen) | + + + + + | Narrative | Performed At | + + + | FLUID LDH 731 This | EXTERNAL LAB | | is not a manufacturing maintenance manager validated sample type for this method. No | | | reference ranges have been established. Testing performed at [facility], | | | [address] [place] [address] | | + + + + +---------+ + + | Performing | Address | City/State/Zipcode | Phone Number | | Organization | | | | + +---------+ + + | EXTERNAL LAB | | | | + +---------+ + + Glucose, Body Fluid (10/10/2015 6:18 AM PDT) + + | Specimen | + + | Body fluid sample | | (specimen) | + + + + + | Narrative | Performed At | + + + | FLUID GLUCOSE 137 This is | EXTERNAL LAB | | not a manufacturing maintenance manager validated sample type for this method. No | | | reference ranges have been established. Testing performed at [facility], | | | [address] [place] [address] Glucose, Fluid Type | | | NOT GIVEN Testing performed at [facility], [address] | | | [place] [address] | | + + + + +---------+ + + | Performing | Address | City/State/Zipcode | Phone Number | | Organization | | | | + +---------+ + + | EXTERNAL LAB | | | | + +---------+ + + PH, Body Fluid (10/10/2015 6:18 AM PDT) + + | Specimen | + + | Body fluid sample | | (specimen) | + + + + + | Narrative | Performed At | + + + | FLUID PH 7.66 | EXTERNAL LAB | | Testing performed at [facility];[address];[place] [address] | | + + + + +---------+ + + | Performing | Address | City/State/Zipcode | Phone Number | | Organization | | | | + +---------+ + + | EXTERNAL LAB | | | | + +---------+ + + Retic Count (10/10/2015 5:30 AM PDT) + + + + + + | Component | Value | Ref Range | Performed | Pathologist | | | | | At | Signature | + + + + + + | % | 5.9 (H)Comment: Testing | 0.4 - 2.7 % | EXTERNAL | | | Reticulocyt | performed at [facility];[address] | | LAB | | | e Count | [address];[place], [place] | | | | | | [address] | | | | + + + + + + + + | Specimen | + + | Blood specimen | | (specimen) | + + + +---------+ + + | Performing | Address | City/State/Zipcode | Phone Number | | Organization | | | | + +---------+ + + | EXTERNAL LAB | | | | + +---------+ + + Bilirubin, Total and Direct (10/10/2015 5:30 AM PDT) + + + + + + | Component | Value | Ref Range | Performed | Pathologist | | | | | At | Signature | + + + + + + | Bilirubin | 5.8 (H)Comment: Testing | 0.1 - 1.5 mg/dL | EXTERNAL | | | Total | performed at [facility];[address] | | LAB | | | | [address];[place] | | | | | | [address] | | | | + + + + + + | Bilirubin | 2.6 (H)Comment: Testing | 0.0 - 0.3 mg/dL | EXTERNAL | | | Direct | performed at [facility];[address] | | LAB | | | | [address];[place] | | | | | | [address] | | | | + + + + + + + + | Specimen | + + | Blood specimen | | (specimen) | + + + +---------+ + + | Performing | Address | City/State/Zipcode | Phone Number | | Organization | | | | + +---------+ + + | EXTERNAL LAB | | | | + +---------+ + + Lactate Dehydrogenase (10/10/2015 5:30 AM PDT) + + + + + + | Component | Value | Ref Range | Performed | Pathologist | | | | | At | Signature | + + + + + + | LDH TOTAL | 299 (H)Comment: SLT | 115 - 225 U/L | EXTERNAL | | | | HEMOLYSISTesting | | LAB | | | | performed at [facility];[address] | | | | | | [address];[place], [place] | | | | | | [address] | | | | + + + + + + + + | Specimen | + + | Blood specimen | | (specimen) | + + + +---------+ + + | Performing | Address | City/State/Zipcode | Phone Number | | Organization | | | | + +---------+ + + | EXTERNAL LAB | | | | + +---------+ + + Haptoglobin (10/10/2015 5:30 AM PDT) + + + + + + | Component | Value | Ref Range | Performed | Pathologist | | | | | At | Signature | + + + + + + | Haptoglobin | 166Comment: Testing | 40 - 240 mg/dL | EXTERNAL | | | | performed at [facility], [address] | | LAB | | | | [address] | | | | | | [place] [address] | | | | + + + + + + + + | Specimen | + + | Blood specimen | | (specimen) | + + + +---------+ + + | Performing | Address | City/State/Zipcode | Phone Number | | Organization | | | | + +---------+ + + | EXTERNAL LAB | | | | + +---------+ + + External Lab: CBC (10/10/2015 4:43 AM PDT) + + + + + + | Component | Value | Ref Range | Performed | Pathologist | | | | | At | Signature | + + + + + + | WBC | 19.96 (H)Comment: | 3.80 - 11.00 | EXTERNAL | | | | Testing performed at | K/uL | LAB | | | | [facility];[address];[place] [address] | | | | + + + + + + | Non- | 2.45 (L)Comment: Testing | 4.20 - 5.70 | EXTERNAL | | | Red Blood | performed at [facility];[address] | M/uL | LAB | | | Cells | [address];[place] | | | | | Counted | [id number] | | | | + + + + + + | Hemoglobin | 6.8 (LL)Comment: CALLED | 13.2 - 17.0 | EXTERNAL | | | | NURSING AKIL MADRID | g/dL | LAB | | | | AT 0500 BY RHREAD BACK | | | | | | RESULTS VERIFIEDTesting | | | | | | performed at [facility];[address] | | | | | | [address];[place] | | | | | | [address] | | | | + + + + + + | Hematocrit, | 20.8 (LL)Comment: CALLED | 39.0 - 50.0 % | EXTERNAL | | | POC | AKIL GARCIA | | LAB | | | | AT 0500 BY RHREAD BACK | | | | | | RESULTS VERIFIEDTesting | | | | | | performed at [facility];[address] | | | | | | [address];[place] | | | | | | [address] | | | | + + + + + + | MCV | 84.7Comment: Testing | 80.0 - 100.0 fl | EXTERNAL | | | | performed at [facility];[address] | | LAB | | | | [address];[place] | | | | | | [address] | | | | + + + + + + | MCH | 27.5Comment: Testing | 27.0 - 34.0 pg | EXTERNAL | | | | performed at [facility];[address] | | LAB | | | | [address];[place] | | | | | | [address] | | | | + + + + + + | MCHC | 32.5Comment: Testing | 32.0 - 35.5 | EXTERNAL | | | | performed at [facility];[address] | g/dL | LAB | | | | [address];[place] | | | | | | [address] | | | | + + + + + + | RDW-CV | 45.9Comment: Testing | 37 - 53 fl | EXTERNAL | | | | performed at [facility];[address] | | LAB | | | | [address];[place] | | | | | | [address] | | | | + + + + + + | Platelet | 136 (L)Comment: Testing | 150 - 400 K/uL | EXTERNAL | | | Count | performed at [facility];[address] | | LAB | | | Plasma | [address];[place] | | | | | | [address] | | | | + + + + + + | MPV | 7.9Comment: Testing | fl | EXTERNAL | | | | performed at [facility];[address] | | LAB | | | | [address];[place] | | | | | | [address] | | | | + + + + + + | Differentia | MANUALComment: Testing | | EXTERNAL | | | l Type | performed at [facility];[address] | | LAB | | | | [address];[place] | | | | | | [address] | | | | + + + + + + | Segmented | 92Comment: Testing | % | EXTERNAL | | | Neutrophils | performed at [facility];[address] | | LAB | | | Manual | [address];[place] | | | | | | [address] | | | | + + + + + + | % Bands | 2Comment: Testing | % | EXTERNAL | | | | performed at [facility];[address] | | LAB | | | | [address];[place] | | | | | | [address] | | | | + + + + + + | Lymphocytes | 4Comment: Testing | % | EXTERNAL | | | Manual | performed at [facility];[address] | | LAB | | | | [address];[place] | | | | | | [address] | | | | + + + + + + | Monocytes | 2Comment: Testing | % | EXTERNAL | | | Manual | performed at [facility];[address] | | LAB | | | | [address];[place] | | | | | | [address] | | | | + + + + + + | Absolute | 18.36 (H)Comment: | 1.90 - 7.40 | EXTERNAL | | | Neutrophils | Testing performed at | K/uL | LAB | | | | [facility];[address];[place] [address] | | | | + + + + + + | Bands | 0.40 (H)Comment: Testing | 0.00 - 0.20 | EXTERNAL | | | Manual | performed at [facility];[address] | K/uL | LAB | | | | [address];[place] | | | | | | [address] | | | | + + + + + + | Absolute | 0.80 (L)Comment: Testing | 1.00 - 3.90 | EXTERNAL | | | Lymphocytes | performed at [facility];[address] | K/uL | LAB | | | | [address];[place] | | | | | | [address] | | | | + + + + + + | Absolute | 0.40Comment: Testing | 0.00 - 0.80 | EXTERNAL | | | Monocytes | performed at [facility];[address] | K/uL | LAB | | | | [address];[place] | | | | | | [address] | | | | + + + + + + | Platelet | ADEQUATEComment: Testing | | EXTERNAL | | | Estimate | performed at [facility];[address] | | LAB | | | | [address];[place] | | | | | | [address] | | | | + + + + + + | RBC | RBC AND PLT MORPHOLOGY | | EXTERNAL | | | Morphology | APPEAR NORMALComment: | | LAB | | | | Testing performed at | | | | | | [facility];[address];[place] [address] | | | | + + + + + + + + | Specimen | + + | Blood specimen | | (specimen) | + + + +---------+ + + | Performing | Address | City/State/Zipcode | Phone Number | | Organization | | | | + +---------+ + + | EXTERNAL LAB | | | | + +---------+ + + Phosphorus (10/10/2015 4:43 AM PDT) + + + + + + | Component | Value | Ref Range | Performed | Pathologist | | | | | At | Signature | + + + + + + | PHOSPHORUS | 6.2 (H)Comment: Testing | 2.3 - 4.8 mg/dL | EXTERNAL | | | | performed at [facility];[address] | | LAB | | | | [address];[place], [place] | | | | | | [address] | | | | + + + + + + + + | Specimen | + + | Blood specimen | | (specimen) | + + + +---------+ + + | Performing | Address | City/State/Zipcode | Phone Number | | Organization | | | | + +---------+ + + | EXTERNAL LAB | | | | + +---------+ + + Magnesium (10/10/2015 4:43 AM PDT) + + + + + + | Component | Value | Ref Range | Performed | Pathologist | | | | | At | Signature | + + + + + + | Magnesium | 2.6 (H)Comment: Testing | 1.7 - 2.4 mg/dL | EXTERNAL | | | | performed at [facility];[address] | | LAB | | | | [address];[place] | | | | | | [address] | | | | + + + + + + + + | Specimen | + + | Blood specimen | | (specimen) | + + + +---------+ + + | Performing | Address | City/State/Zipcode | Phone Number | | Organization | | | | + +---------+ + + | EXTERNAL LAB | | | | + +---------+ + + Hepatic Function Panel (10/10/2015 4:43 AM PDT) + + + + + + | Component | Value | Ref Range | Performed | Pathologist | | | | | At | Signature | + + + + + + | Protein, | 6.1 (L)Comment: Testing | 6.3 - 8.2 g/dL | EXTERNAL | | | Total | performed at [facility];[address] | | LAB | | | | [address];[place] | | | | | | [address] | | | | + + + + + + | Albumin | 1.7 (L)Comment: Testing | 3.6 - 5.0 g/dL | EXTERNAL | | | | performed at [facility];[address] | | LAB | | | | [address];[place] | | | | | | [address] | | | | + + + + + + | Bilirubin | 5.9 (H)Comment: Testing | 0.1 - 1.5 mg/dL | EXTERNAL | | | Total | performed at [facility];[address] | | LAB | | | | [address];[place] | | | | | | [address] | | | | + + + + + + | Bilirubin | 2.6 (H)Comment: Testing | 0.0 - 0.3 mg/dL | EXTERNAL | | | Direct | performed at [facility];[address] | | LAB | | | | [address];[place] | | | | | | [address] | | | | + + + + + + | ALP, | 74Comment: Testing | 35 - 115 U/L | EXTERNAL | | | External | performed at [facility];[address] | | LAB | | | | [address];[place] | | | | | | [address] | | | | + + + + + + | AST | 27Comment: Testing | 10 - 45 U/L | EXTERNAL | | | | performed at [facility];[address] | | LAB | | | | [address];[place] | | | | | | [address] | | | | + + + + + + | ALT | 19Comment: Testing | 10 - 65 U/L | EXTERNAL | | | | performed at [facility];[address] | | LAB | | | | [address];[place] | | | | | | [address] | | | | + + + + + + + + | Specimen | + + | | + + + +---------+ + + | Performing | Address | City/State/Zipcode | Phone Number | | Organization | | | | + +---------+ + + | EXTERNAL LAB | | | | + +---------+ + + Basic Metabolic Panel (10/10/2015 4:43 AM PDT) + + + + + + | Component | Value | Ref Range | Performed | Pathologist | | | | | At | Signature | + + + + + + | Na | 133 (L)Comment: Testing | 135 - 145 | EXTERNAL | | | | performed at [facility];[address] | mmol/L | LAB | | | | [address];[place] | | | | | | [address] | | | | + + + + + + | K | 4.4Comment: Testing | 3.5 - 4.9 | EXTERNAL | | | | performed at [facility];[address] | mmol/L | LAB | | | | [address];[place] | | | | | | [address] | | | | + + + + + + | Cl | 94 (L)Comment: Testing | 99 - 109 mmol/L | EXTERNAL | | | | performed at [facility];[address] | | LAB | | | | [address];[place] | | | | | | [address] | | | | + + + + + + | CO2 | 30Comment: Testing | 23 - 32 mmol/L | EXTERNAL | | | | performed at [facility];[address] | | LAB | | | | [address];[place] | | | | | | [address] | | | | + + + + + + | Anion Gap | 14Comment: Testing | 5 - 20 mmol/L | EXTERNAL | | | | performed at [facility];[address] | | LAB | | | | [address];[place] | | | | | | [address] | | | | + + + + + + | Glucose, | 172 (H)Comment: Testing | 65 - 99 mg/dL | EXTERNAL | | | Fasting | performed at [facility];[address] | | LAB | | | | [address];[place] | | | | | | [address] | | | | + + + + + + | BUN | 43 (H)Comment: Testing | 8 - 25 mg/dL | EXTERNAL | | | | performed at [facility];[address] | | LAB | | | | [address];[place] | | | | | | [address] | | | | + + + + + + | Creatinine | 4.6 (H)Comment: Testing | 0.70 - 1.30 | EXTERNAL | | | | performed at [facility];[address] | mg/dL | LAB | | | | [address];[place] | | | | | | [address] | | | | + + + + + + | BUN/Creatin | 9Comment: Testing | | EXTERNAL | | | ine Ratio | performed at [facility];[address] | | LAB | | | | [address];[place] | | | | | | [address] | | | | + + + + + + | Calcium | 6.7 (L)Comment: Testing | 8.5 - 10.5 | EXTERNAL | | | | performed at [facility];[address] | mg/dL | LAB | | | | [address];[place] | | | | | | [address] | | | | + + + + + + | Estimated | 16 (L)Comment: GFR <60: | mL/min/1.73m2 | EXTERNAL | | | GFR | CHRONIC KIDNEY DISEASE, | | LAB | | | | IF FOUND OVER A 3 MONTH | | | | | | PERIOD.GFR <15: KIDNEY | | | | | | FAILURE.FOR | | | | | | AMERICANS, MULTIPLY THE | | | | | | CALCULATED GFR BY | | | | | | 1.210.Testing performed | | | | | | at [facility];[address] | | | [address];[place] [address] | | | | + + + + + + + + | Specimen | + + | Blood specimen | | (specimen) | + + + +---------+ + + | Performing | Address | City/State/Zipcode | Phone Number | | Organization | | | | + +---------+ + + | EXTERNAL LAB | | | | + +---------+ + + CT Chest wo Contrast (10/09/2015 3:58 PM PDT) + + | Specimen | + + | | + + + + + | Impressions | Performed At | + + + | 1. Significant interval decrease in size of right pleural | | | effusion, now small. Moderate to large left pleural effusion appears | | | slightly decreased in size. Associated consolidative opacity seen | | | involving the lower lobes, likely representing pneumonia or | | | atelectasis. 2. Essentially unchanged appearance of numerous | | | bilateral cavitary lesions or airspace opacities 3. Wedge-shaped | | | hypodensity in the anterior spleen, suspicious for an infarct. | | | | | + + + + + + | Narrative | Performed At | + + + | [facility] CHEST WO CONTRAST HISTORY: Shortness of | | | breath. Pleural effusions. TECHNIQUE: CT examination of the chest | | | was performed without contrast. CT was performed with automated | | | exposure control and adjustment of the mA according to patient size. | | | COMPARISON: CT chest abdomen pelvis 10/05/2015 FINDINGS: | | | Significant interval decrease in size of right pleural effusion, now | | | small. Moderate to large left pleural effusion seen, slightly | | | decreased in size. Moderate amount of consolidative dependent airspace | | | opacities noted involving the lower lobes. In addition, | | | predominantly cavitary with few airspace opacities noted, with a | | | predominantly peripheral distribution. These appear essentially | | | unchanged. No pneumothorax. Interval placement of a dialysis | | | catheter the tip of which is located at the SVC/right atrial junction. | | | Right-sided PICC line tip is located in the lower SVC. No | | | cardiomegaly. Trace pericardial effusion. No definite enlarged | | | mediastinal or hilar lymph nodes by CT size criteria seen within | | | limits of unenhanced technique. Visualized thyroid appears | | | unremarkable. No acute or destructive osseous process seen. Visualized | | | unenhanced liver appears grossly unremarkable. Anterior spleen | | | demonstrates a wedge-shaped hypodensity seen on series 3, image 48 | | | measuring 4.4 cm x 1.7 cm in size, suspected to represent a splenic | | | infarct. This was not definitively seen on the prior examination. | | | | | + + + + -------+ | Procedure Note | + -------+ | Elmer, Rad Conversion - 11/01/2018 7:23 PM PDT YANG ELDERCT CHEST WO CONTRAST | | HISTORY:Shortness of breath. Pleural effusions. TECHNIQUE:CT examination of the chest | | was performed without contrast. CT was performed with automated exposure control and | | adjustment of the mA according to patient size. COMPARISON:CT chest abdomen pelvis | | 10/05/2015 FINDINGS:Significant interval decrease in size of right pleural effusion, now | | small. Moderate to large left pleural effusion seen, slightly decreased in size. | | Moderate amount of consolidative dependent airspace opacities noted involving the lower | | lobes. In addition, predominantly cavitary with few airspace opacities noted, with a | | predominantly peripheral distribution. These appear essentially unchanged. No | | pneumothorax. Interval placement of a dialysis catheter the tip of which is located at | | the SVC/right atrial junction. Right-sided PICC line tip is located in the lower SVC. No | | cardiomegaly. Trace pericardial effusion. No definite enlarged mediastinal or hilar | | lymph nodes by CT size criteria seen within limits of unenhanced technique. Visualized | | thyroid appears unremarkable. No acute or destructive osseous process seen. Visualized | | unenhanced liver appears grossly unremarkable. Anterior spleen demonstrates a | | wedge-shaped hypodensity seen on series 3, image 48 measuring 4.4 cm x 1.7 cm in size, | | suspected to represent a splenic infarct. This was not definitively seen on the prior | | examination. IMPRESSION: 1. Significant interval decrease in size of right pleural | | effusion, now small. Moderate to large left pleural effusion appears slightly decreased | | in size. Associated consolidative opacity seen involving the lower lobes, likely | | representing pneumonia or atelectasis.2. Essentially unchanged appearance of numerous | | bilateral cavitary lesions or airspace opacities3. Wedge-shaped hypodensity in the | | anterior spleen, suspicious for an infarct. Electronically signed by Ramone Abarca MD on | | 10/09/2015 4:42 PM | |atelectasis. | |2. Essentially unchanged appearance of numerous bilateral cavitary lesions or airspace opa cities | |3. Wedge-shaped hypodensity in the anterior spleen, suspicious for an infarct. | | | | | + -------+ Calcium, Ionized (10/09/2015 9:59 AM PDT) + + + + + + | Component | Value | Ref Range | Performed | Pathologist | | | | | At | Signature | + + + + + + | Calcium | 0.89 (L)Comment: Testing | 1.08 - 1.25 | EXTERNAL | | | (Calc) | performed at [facility];888 | mmol/L | LAB | | | | [address];[place], [place] | | | | | | [address] | | | | + + + + + + | pH, Bld | 7.439Comment: Testing | 7.300 - 7.450 | EXTERNAL | | | | performed at [facility];[address] | | LAB | | | | [address];[place], [place] | | | | | | [address] | | | | + + + + + + + + | Specimen | + + | Blood specimen | | (specimen) | + + + +---------+ + + | Performing | Address | City/State/Zipcode | Phone Number | | Organization | | | | + +---------+ + + | EXTERNAL LAB | | | | + +---------+ + + XR Chest 1 Vw (10/09/2015 7:56 AM PDT) + + | Specimen | + + | | + + + + + | Impressions | Performed At | + + + | 1. No significant change as compared with 10/08/15. 2. Moderate | | | LEFT and mild RIGHT pleural effusions. 3. Numerous nodular | | | densities throughout both lung barry representing normal pulmonary | | | septic emboli. 4. Persistent mild alveolar infiltrate of the LEFT | | | lung, unchanged. 5. Satisfactory position of life-support | | | catheters. Electronically signed by Dipak Aguilar MD on | | | 10/09/2015 8:07 AM | | + + + + + + | Narrative | Performed At | + + + | YANG RIDLEY XR CHEST 1 VIEW 10/09/2015 7:56 AM History: 30 | | | years. Male. Numerous septic pulmonary emboli identified on chest | | | CT 10/01/15. Bilateral pleural effusions. Follow-up exam. | | | Technique: AP portable upright technique was performed at 0755 hours. | | | Comparison: 10/08/15 Findings: A moderate LEFT pleural effusion | | | is again visualized with pleural density measuring approximately 16 | | | mm in thickness at the lateral midportion of the LEFT chest, | | | unchanged. Partial atelectasis of the LEFT lower lobe is due to | | | pleural effusion. A smaller RIGHT pleural effusion still present | | | with obscuration of the RIGHT hemidiaphragm. Mild atelectasis of | | | the RIGHT lower lobe is also present. Nodular densities with | | | central lucencies are again visualized throughout both lung barry, | | | consistent with numerous small pulmonary septic emboli. Mild | | | groundglass infiltrate is again visualized throughout the aerated | | | portion of the LEFT lung. The cardiac volume is normal. The | | | pulmonary vasculature is obscured. A persistent RIGHT internal | | | jugular dialysis catheter is visualized with its tip at the junction | | | of the superior vena cava and RIGHT atrium. A RIGHT brachial central | | | venous PICC line is present with the tip at the junction of the | | | superior vena cava and right atrium, in good position. | | + + + + + | Procedure Note | + + | Elmer, Rad Conversion - 11/01/2018 7:23 PM PDT YANG RIDLEYXR CHEST 1 VIEW10/09/2015 | | 7:56 AM History: 30 years. Male. Numerous septic pulmonary emboli identified on chest | | CT 10/01/15. Bilateral pleural effusions. Follow-up exam. Technique: AP portable | | upright technique was performed at 0755 hours.Comparison: 10/08/15 Findings: A moderate | | LEFT pleural effusion is again visualized with pleural density measuring approximately | | 16 mm in thickness at the lateral midportion of the LEFT chest, unchanged. Partial | | atelectasis of the LEFT lower lobe is due to pleural effusion. A smaller RIGHT pleural | | effusion still present with obscuration of the RIGHT hemidiaphragm. Mild atelectasis of | | the RIGHT lower lobe is also present. Nodular densities with central lucencies are | | again visualized throughout both lung barry, consistent with numerous small pulmonary | | septic emboli. Mild groundglass infiltrate is again visualized throughout the aerated | | portion of the LEFT lung. The cardiac volume is normal. The pulmonary vasculature is | | obscured. A persistent RIGHT internal jugular dialysis catheter is visualized with its | | tip at the junction of the superior vena cava and RIGHT atrium. A RIGHT brachial | | central venous PICC line is present with the tip at the junction of the superior vena | | cava and right atrium, in good position. IMPRESSION: 1. No significant change as | | compared with 10/08/15.2. Moderate LEFT and mild RIGHT pleural effusions.3. Numerous | | nodular densities throughout both lung barry representing normal pulmonary septic | | emboli.4. Persistent mild alveolar infiltrate of the LEFT lung, unchanged.5. | | Satisfactory position of life-support catheters. | | | |IMPRESSION: | |1. No significant change as compared with 10/08/15. | |2. Moderate LEFT and mild RIGHT pleural effusions. | |3. Numerous nodular densities throughout both lung barry representing normal pulmonary se ptic emboli. | |4. Persistent mild alveolar infiltrate of the LEFT lung, unchanged. | |5. Satisfactory position of life-support catheters. | | | | | + + External Lab: CBC (10/09/2015 3:26 AM PDT) + + +---- + + + | Component | Value | Ref Range | Performed | Pathologist | | | | | At | Signature | + + +---- + + + | WBC | 16.82 (H)Comment: | 3.8 0 - 11.00 | EXTERNAL | | | | Testing performed at | K/u L | LAB | | | | [facility], [address] | | | | | | [place] | | | | | | [address] | | | | + + +---- + + + | Non- | 2.70 (L)Comment: Testing | 4.2 0 - 5.70 | EXTERNAL | | | Red Blood | performed at [facility], [address] | M/u L | LAB | | | Cells | [address], | | | | | Counted | [place] [address] | | | | + + +---- + + + | Hemoglobin | 7.4 (L)Comment: Testing | 13. 2 - 17.0 | EXTERNAL | | | | performed at [facility], [address] | g/d L | LAB | | | | [address], | | | | | | [place] [address] | | | | + + +---- + + + | Hematocrit, | 22.4 (L)Comment: Testing | 39. 0 - 50.0 % | EXTERNAL | | | POC | performed at [facility], [address] | | LAB | | | | [address], | | | | | | [place] [address] | | | | + + +---- + + + | MCV | 82.9Comment: Testing | 80. 0 - 100.0 fl | EXTERNAL | | | | performed at [facility], [address] | | LAB | | | | [address], | | | | | | [place] [address] | | | | + + +---- + + + | MCH | 27.5Comment: Testing | 27. 0 - 34.0 pg | EXTERNAL | | | | performed at [facility], [address] | | BAO | | | | [address], | | | | | | [place] [address] | | | | + + +---- + + + | MCHC | 33.2Comment: Testing | 32. 0 - 35.5 | EXTERNAL | | | | performed at [facility], [address] | g/d L | LAB | | | | [address], | | | | | | [place] [address] | | | | + + +---- + + + | RDW-CV | 43.8Comment: Testing | 37 - 53 fl | EXTERNAL | | | | performed at [facility], [address] | | LAB | | | | [address], | | | | | | [place] [address] | | | | + + +---- + + + | Platelet | 207Comment: Testing | 150 - 400 K/uL | EXTERNAL | | | Count | performed at [facility], [address] | | LAB | | | Plasma | [address], | | | | | | [place] [address] | | | | + + +---- + + + | MPV | 7.9Comment: Testing | fl | EXTERNAL | | | | performed at [facility], [address] | | LAB | | | | [address], | | | | | | [place] [address] | | | | + + +---- + + + | Differentia | MANUALComment: Testing | | EXTERNAL | | | l Type | performed at [facility], [address] | | LAB | | | | [address], | | | | | | [place] [address] | | | | + + +---- + + + | Segmented | 83Comment: Testing | % | EXTERNAL | | | Neutrophils | performed at [facility], [address] | | LAB | | | Manual | [address], | | | | | | [place] [address] | | | | + + +---- + + + | % Bands | 5Comment: Testing | % | EXTERNAL | | | | performed at [facility], [address] | | LAB | | | | [address], | | | | | | [place] [address] | | | | + + +---- + + + | % | 1Comment: Testing | % | EXTERNAL | | | Metamyelocy | performed at [facility], [address] | | LAB | | | ezio | [address], | | | | | | [place] [address] | | | | + + +---- + + + | % | 1Comment: Testing | % | EXTERNAL | | | Myelocytes | performed at [facility], [address] | | LAB | | | | [address], | | | | | | [place] [address] | | | | + + +---- + + + | Lymphocytes | 7Comment: Testing | % | EXTERNAL | | | Manual | performed at [facility], [address] | | LAB | | | | [address], | | | | | | [place] [address] | | | | + + +---- + + + | Monocytes | 2Comment: Testing | % | EXTERNAL | | | Manual | performed at [facility], [address] | | LAB | | | | [address], | | | | | | [place] [address] | | | | + + +---- + + + | Eosinophils | 1Comment: Testing | % | EXTERNAL | | | Manual | performed at [facility], [address] | | LAB | | | | [address], | | | | | | [place] [address] | | | | + + +---- + + + | Absolute | 13.95 (H)Comment: | 1.9 0 - 7.40 | EXTERNAL | | | Neutrophils | Testing performed at | K/u L | LAB | | | | [facility], [address] | | | | | | [place] | | | | | | [address] | | | | + + +---- + + + | Bands | 0.84 (H)Comment: Testing | 0.0 0 - 0.20 | EXTERNAL | | | Manual | performed at [facility], [address] | K/u L | LAB | | | | [address], | | | | | | [place] [address] | | | | + + +---- + + + | Absolute | 0.17 (H)Comment: Testing | K/u L | EXTERNAL | | | Metamyelocy | performed at [facility], [address] | | LAB | | | ezio | [address], | | | | | | [place] [address] | | | | + + +---- + + + | Absolute | 0.17 (H)Comment: Testing | K/u L | EXTERNAL | | | Myelocytes | performed at [facility], [address] | | LAB | | | | [address], | | | | | | [place] [address] | | | | + + +---- + + + | Absolute | 1.18Comment: Testing | 1.0 0 - 3.90 | EXTERNAL | | | Lymphocytes | performed at [facility], [address] | K/u L | LAB | | | | [address], | | | | | | [place] [address] | | | | + + +---- + + + | Absolute | 0.34Comment: Testing | 0.0 0 - 0.80 | EXTERNAL | | | Monocytes | performed at [facility], [address] | K/u L | LAB | | | | [address], | | | | | | [place] [address] | | | | + + +---- + + + | Absolute | 0.17Comment: Testing | 0.0 0 - 0.50 | EXTERNAL | | | Eosinophils | performed at [facility], [address] | K/u L | LAB | | | | [address], | | | | | | [place] [address] | | | | + + +---- + + + | RBC | 1+Comment: | | EXTERNAL | | | Morphology | ANISO1+POLYNORMAL PLT | | LAB | | | | MORPHTesting performed | | | | | | at [facility], [address] | | | | | | [employer], | | | | | | [place] [address] | | | | | |Testing performed at [facility], [address] [place] [address] | | | | | | | | | | + + +---- + + + + + | Specimen | + + | Blood specimen | | (specimen) | + + + +---------+ + + | Performing | Address | City/State/Zipcode | Phone Number | | Organization | | | | + +---------+ + + | EXTERNAL LAB | | | | + +---------+ + + Phosphorus (10/09/2015 3:26 AM PDT) + + + + + + | Component | Value | Ref Range | Performed | Pathologist | | | | | At | Signature | + + + + + + | PHOSPHORUS | 6.5 (H)Comment: Testing | 2.3 - 4.8 mg/dL | EXTERNAL | | | | performed at [facility], [address] | | LAB | | | | [address], | | | | | | [place] [address] | | | | + + + + + + + + | Specimen | + + | Blood specimen | | (specimen) | + + + +---------+ + + | Performing | Address | City/State/Zipcode | Phone Number | | Organization | | | | + +---------+ + + | EXTERNAL LAB | | | | + +---------+ + + Magnesium (10/09/2015 3:26 AM PDT) + + + + + + | Component | Value | Ref Range | Performed | Pathologist | | | | | At | Signature | + + + + + + | Magnesium | 2.6 (H)Comment: Testing | 1.7 - 2.4 mg/dL | EXTERNAL | | | | performed at [facility], [address] | | LAB | | | | [address], | | | | | | [place] [address] | | | | + + + + + + + + | Specimen | + + | Blood specimen | | (specimen) | + + + +---------+ + + | Performing | Address | City/State/Zipcode | Phone Number | | Organization | | | | + +---------+ + + | EXTERNAL LAB | | | | + +---------+ + + Hepatic Function Panel (10/09/2015 3:26 AM PDT) + + + + + + | Component | Value | Ref Range | Performed | Pathologist | | | | | At | Signature | + + + + + + | Protein, | 5.8 (L)Comment: Testing | 6.3 - 8.2 g/dL | EXTERNAL | | | Total | performed at [facility], [address] | | LAB | | | | [address], | | | | | | [place] [address] | | | | + + + + + + | Albumin | 1.9 (L)Comment: Testing | 3.6 - 5.0 g/dL | EXTERNAL | | | | performed at [facility], [address] | | LAB | | | | [address], | | | | | | [place] [address] | | | | + + + + + + | Bilirubin | 5.4 (H)Comment: Testing | 0.1 - 1.5 mg/dL | EXTERNAL | | | Total | performed at [facility], [address] | | LAB | | | | [address], | | | | | | [place] [address] | | | | + + + + + + | Bilirubin | 2.6 (H)Comment: Testing | 0.0 - 0.3 mg/dL | EXTERNAL | | | Direct | performed at [facility], [address] | | LAB | | | | [address], | | | | | | [place] [address] | | | | + + + + + + | ALP, | 61Comment: Testing | 35 - 115 U/L | EXTERNAL | | | External | performed at [facility], [address] | | LAB | | | | [address], | | | | | | [place] [address] | | | | + + + + + + | AST | 25Comment: Testing | 10 - 45 U/L | EXTERNAL | | | | performed at [facility], [address] | | LAB | | | | [address], | | | | | | [place] [address] | | | | + + + + + + | ALT | 24Comment: Testing | 10 - 65 U/L | EXTERNAL | | | | performed at [facility], [address] | | LAB | | | | [address], | | | | | | [place] [address] | | | | + + + + + + + + | Specimen | + + | | + + + +---------+ + + | Performing | Address | City/State/Zipcode | Phone Number | | Organization | | | | + +---------+ + + | EXTERNAL LAB | | | | + +---------+ + + Basic Metabolic Panel (10/09/2015 3:26 AM PDT) + + + + + + | Component | Value | Ref Range | Performed | Pathologist | | | | | At | Signature | + + + + + + | Na | 132 (L)Comment: Testing | 135 - 145 | EXTERNAL | | | | performed at [facility], [address] | mmol/L | LAB | | | | [address], | | | | | | [place] [address] | | | | + + + + + + | K | 4.4Comment: Testing | 3.5 - 4.9 | EXTERNAL | | | | performed at [facility], [address] | mmol/L | LAB | | | | [address], | | | | | | [place] [address] | | | | + + + + + + | Cl | 94 (L)Comment: Testing | 99 - 109 mmol/L | EXTERNAL | | | | performed at [facility], [address] | | LAB | | | | [address], | | | | | | [place] [address] | | | | + + + + + + | CO2 | 27Comment: Testing | 23 - 32 mmol/L | EXTERNAL | | | | performed at [facility], [address] | | LAB | | | | [address], | | | | | | [place] [address] | | | | + + + + + + | Anion Gap | 15Comment: Testing | 5 - 20 mmol/L | EXTERNAL | | | | performed at [facility], [address] | | LAB | | | | [address], | | | | | | [place] [address] | | | | + + + + + + | Glucose, | 142 (H)Comment: Testing | 65 - 99 mg/dL | EXTERNAL | | | Fasting | performed at [facility], [address] | | LAB | | | | [address], | | | | | | [place] [address] | | | | + + + + + + | BUN | 51 (H)Comment: Testing | 8 - 25 mg/dL | EXTERNAL | | | | performed at [facility], [address] | | LAB | | | [address], | | | | | | [place] [address] | | | | + + + + + + | Creatinine | 4.3 (H)Comment: Testing | 0.70 - 1.30 | EXTERNAL | | | | performed at [facility], [address] | mg/dL | LAB | | | | [address], | | | | | | [place] [address] | | | | + + + + + + | BUN/Creatin | 12Comment: Testing | | EXTERNAL | | | ine Ratio | performed at [facility], [address] | | LAB | | | | [address], | | | | | | [place] [address] | | | | + + + + + + | Calcium | 6.7 (L)Comment: Testing | 8.5 - 10.5 | EXTERNAL | | | | performed at [facility], [address] | mg/dL | LAB | | | | [facility], | | | | | | [place] [address] | | | | + + + + + + | Estimated | 17 (L)Comment: GFR <60: | mL/min/1.73m2 | EXTERNAL | | | GFR | CHRONIC KIDNEY DISEASE, | | LAB | | | | IF FOUND OVER A 3 MONTH | | | | | | PERIOD.GFR <15: KIDNEY | | | | | | FAILURE.FOR | | | | | | AMERICANS, MULTIPLY THE | | | | | | CALCULATED GFR BY | | | | | | 1.210.Testing performed | | | | | | at [facility], [address] | | | | | | [facility], | | | | | | [place] [address] | | | | + + + + + + + + | Specimen | + + | Blood specimen | | (specimen) | + + + +---------+ + + | Performing | Address | City/State/Zipcode | Phone Number | | Organization | | | | + +---------+ + + | EXTERNAL LAB | | | | + +---------+ + + XR Chest 1 Vw (10/08/2015 5:03 AM PDT) + + | Specimen | + + | | + + + + + | Impressions | Performed At | + + + | 1. Progressive, moderate LEFT pleural effusion. 2. Stable, | | | small RIGHT pleural effusion. 3. Mildly progressive and moderate | | | alveolar infiltrates suggesting mild alveolar pulmonary edema. 4. | | | Persistent nodular densities throughout both lungs, representing | | | previously identified septic emboli. 5. Satisfactory position of | | | life-support catheters. | | + + + + + + | Narrative | Performed At | + + + | YANG RIDLEY XR CHEST 1 VIEW 10/08/2015 5:03 AM History: 30 | | | years. Male. Acute pulmonary septic emboli, follow-up. Renal | | | failure. Technique: AP portable upright technique was performed at | | | 0440 hours. Comparison: 10/06/15 Findings: A LEFT pleural | | | effusion is progressive, currently measuring 16 mm in thickness on the | | | lateral mid LEFT chest, previously measuring 8 mm. The LEFT | | | hemidiaphragm is obscured. A small RIGHT pleural effusion is still | | | present, unchanged. Ill-defined small nodules are again visualized | | | throughout both lung barry, remnants of previous septic emboli | | | visualized on CT of 10/01/15. No distinct cavitary disease at | | | present. Mildly increasing alveolar infiltrates are visualized in | | | both lungs, suggesting possible alveolar pulmonary edema. | | | Borderline cardiomegaly is present. A RIGHT internal jugular central | | | venous dialysis catheter is visualized with its tip at the junction | | | of the superior vena cava and RIGHT atrium. A RIGHT brachial central | | | venous PICC line is present with the tip at the junction of the | | | superior vena cava and right atrium, in good position. | | + + + + + | Procedure Note | + + | Elmer, Rad Conversion - 11/01/2018 7:23 PM PDT YANG RIDLEYXR CHEST 1 VIEW10/08/2015 | | 5:03 AM History: 30 years. Male. Acute pulmonary septic emboli, follow-up. Renal | | failure. Technique: AP portable upright technique was performed at 0440 | | hours.Comparison: 10/06/15 Findings: A LEFT pleural effusion is progressive, currently | | measuring 16 mm in thickness on the lateral mid LEFT chest, previously measuring 8 mm. | | The LEFT hemidiaphragm is obscured. A small RIGHT pleural effusion is still present, | | unchanged. Ill-defined small nodules are again visualized throughout both lung barry, | | remnants of previous septic emboli visualized on CT of 10/01/15. No distinct cavitary | | disease at present. Mildly increasing alveolar infiltrates are visualized in both | | lungs, suggesting possible alveolar pulmonary edema. Borderline cardiomegaly is present. | | A RIGHT internal jugular central venous dialysis catheter is visualized with its tip | | at the junction of the superior vena cava and RIGHT atrium. A RIGHT brachial central | | venous PICC line is present with the tip at the junction of the superior vena cava and | | right atrium, in good position. IMPRESSION: 1. Progressive, moderate LEFT pleural | | effusion.2. Stable, small RIGHT pleural effusion.3. Mildly progressive and moderate | | alveolar infiltrates suggesting mild alveolar pulmonary edema.4. Persistent nodular | | densities throughout both lungs, representing previously identified septic emboli.5. | | Satisfactory position of life-support catheters. | |2. Stable, small RIGHT pleural effusion. | |3. Mildly progressive and moderate alveolar infiltrates suggesting mild alveolar pulmonary edema. | |4. Persistent nodular densities throughout both lungs, representing previously identified septic emboli. | |5. Satisfactory position of life-support catheters. | | | | | + + Protime INR (10/08/2015 4:16 AM PDT) + + + + + + | Component | Value | Ref Range | Performed | Pathologist | | | | | At | Signature | + + + + + + | INR | 1.4Comment: REFERENCE | | EXTERNAL | | | | RANGE:0.9 - 1.2 | | LAB | | | | NON-ANTICOAGULATED2.0 | | | | | | - 3.0 ALL OTHER | | | | | | THERAPEUTIC | | | | | | INDICATIONS2.5 - 3.5 | | | | | | MECHANICAL HEART VALVES, | | | | | | RECURRENT OR SYSTEMIC | | | | | | EMBOLISMTesting | | | | | | performed at [facility];[address] | | | | | | [address];[place], [place] | | | | | | [address] | | | | + + + + + + + + | Specimen | + + | Blood specimen | | (specimen) | + + + +---------+ + + | Performing | Address | City/State/Zipcode | Phone Number | | Organization | | | | + +---------+ + + | EXTERNAL LAB | | | | + +---------+ + + External Lab: CBC (10/08/2015 4:16 AM PDT) + + + + + + | Component | Value | Ref Range | Performed | Pathologist | | | | | At | Signature | + + + + + + | WBC | 14.06 (H)Comment: | 3.80 - 11.00 | EXTERNAL | | | | Testing performed at | K/uL | LAB | | | | [facility], [address] | | | | | | [place] | | | | | | [address] | | | | + + + + + + | Non- | 2.73 (L)Comment: Testing | 4.20 - 5.70 | EXTERNAL | | | Red Blood | performed at [facility], [address] | M/uL | LAB | | | Cells | [address], | | | | | Counted | [place] [address] | | | | + + + + + + | Hemoglobin | 7.5 (L)Comment: Testing | 13.2 - 17.0 | EXTERNAL | | | | performed at [facility], [address] | g/dL | LAB | | | | [address], | | | | | | [place] [address] | | | | + + + + + + | Hematocrit, | 22.3 (L)Comment: Testing | 39.0 - 50.0 % | EXTERNAL | | | POC | performed at [facility], [address] | | LAB | | | | [address], | | | | | | [place] [address] | | | | + + + + + + | MCV | 81.9Comment: Testing | 80.0 - 100.0 fl | EXTERNAL | | | | performed at [facility], [address] | | LAB | | | | [address], | | | | | | [place] [address] | | | | + + + + + + | MCH | 27.7Comment: Testing | 27.0 - 34.0 pg | EXTERNAL | | | | performed at [facility], [address] | | LAB | | | | [address], | | | | | | [place] [address] | | | | + + + + + + | MCHC | 33.7Comment: Testing | 32.0 - 35.5 | EXTERNAL | | | | performed at [facility], [address] | g/dL | LAB | | | | [address], | | | | | | [place] [address] | | | | + + + + + + | RDW-CV | 44.2Comment: Testing | 37 - 53 fl | EXTERNAL | | | | performed at [facility], [address] | | LAB | | | | [address], | | | | | | [place], [place] [address] | | | | + + + + + + | Platelet | 191Comment: Testing | 150 - 400 K/uL | EXTERNAL | | | Count | performed at [facility], [address] | | LAB | | | Plasma | [address], | | | | | | [place], [place] [address] | | | | + + + + + + | MPV | 7.8Comment: Testing | fl | EXTERNAL | | | | performed at [facility], [address] | | LAB | | | | [address], | | | | | | [place], [place] [address] | | | | + + + + + + | Differentia | MANUALComment: Testing | | EXTERNAL | | | l Type | performed at [facility], [address] | | LAB | | | | [address], | | | | | | [place], [place] [address] | | | | + + + + + + | Segmented | 78Comment: Testing | % | EXTERNAL | | | Neutrophils | performed at [facility], [address] | | LAB | | | Manual | [address], | | | | | | [place] [address] | | | | + + + + + + | % Bands | 10Comment: Testing | % | EXTERNAL | | | | performed at [facility], [address] | | LAB | | | | [address], | | | | | | [place] [address] | | | | + + + + + + | % | 2Comment: Testing | % | EXTERNAL | | | Metamyelocy | performed at [facility], [address] | | LAB | | | ezio | [address], | | | | | | [place] [address] | | | | + + + + + + | Lymphocytes | 8Comment: Testing | % | EXTERNAL | | | Manual | performed at [facility], [address] | | LAB | | | | [address], | | | | | | [place] [address] | | | | + + + + + + | Monocytes | 2Comment: Testing | % | EXTERNAL | | | Manual | performed at [facility], [address] | | LAB | | | | [address], | | | | | | [place] [address] | | | | + + + + + + | Absolute | 10.97 (H)Comment: | 1.90 - 7.40 | EXTERNAL | | | Neutrophils | Testing performed at | K/uL | LAB | | | | [facility], [address] | | | | | | [place] | | | | | | [address] | | | | + + + + + + | Bands | 1.41 (H)Comment: Testing | 0.00 - 0.20 | EXTERNAL | | | Manual | performed at [facility], [address] | K/uL | LAB | | | | [address], | | | | | | [place], [place] [address] | | | | + + + + + + | Absolute | 0.28 (H)Comment: Testing | K/uL | EXTERNAL | | | Metamyelocy | performed at [facility], [address] | | LAB | | | [address] | [address], | | | | | | [place], [place] [address] | | | | + + + + + + | Absolute | 1.12Comment: Testing | 1.00 - 3.90 | EXTERNAL | | | Lymphocytes | performed at [facility], [address] | K/uL | LAB | | | | [address], | | | | | | [place] [address] | | | | + + + + + + | Absolute | 0.28Comment: Testing | 0.00 - 0.80 | EXTERNAL | | | Monocytes | performed at [facility], [address] | K/uL | LAB | | | | [address], | | | | | | [place] [address] | | | | + + + + + + | RBC | RBC AND PLT MORPHOLOGY | | EXTERNAL | | | Morphology | APPEAR NORMALComment: | | LAB | | | | Testing performed at | | | | | | [facility], [address] | | | | | | [place], [place] | | | | | | [address] | | | | + + + + + + + + | Specimen | + + | Blood specimen | | (specimen) | + + + +---------+ + + | Performing | Address | City/State/Zipcode | Phone Number | | Organization | | | | + +---------+ + + | EXTERNAL LAB | | | | + +---------+ + + Phosphorus (10/08/2015 4:16 AM PDT) + + + + + + | Component | Value | Ref Range | Performed | Pathologist | | | | | At | Signature | + + + + + + | PHOSPHORUS | 6.5 (H)Comment: Testing | 2.3 - 4.8 mg/dL | EXTERNAL | | | | performed at [facility], [address] | | LAB | | | | [address] [place], | | | | | | [place] [address] | | | | + + + + + + + + | Specimen | + + | Blood specimen | | (specimen) | + + + +---------+ + + | Performing | Address | City/State/Zipcode | Phone Number | | Organization | | | | + +---------+ + + | EXTERNAL LAB | | | | + +---------+ + + Magnesium (10/08/2015 4:16 AM PDT) + + + + + + | Component | Value | Ref Range | Performed | Pathologist | | | | | At | Signature | + + + + + + | Magnesium | 2.7 (H)Comment: Testing | 1.7 - 2.4 mg/dL | EXTERNAL | | | | performed at [facility], [address] | | LAB | | | | [address], | | | | | | [place] [address] | | | | + + + + + + + + | Specimen | + + | Blood specimen | | (specimen) | + + + +---------+ + + | Performing | Address | City/State/Zipcode | Phone Number | | Organization | | | | + +---------+ + + | EXTERNAL LAB | | | | + +---------+ + + Hepatic Function Panel (10/08/2015 4:16 AM PDT) + + + + + + | Component | Value | Ref Range | Performed | Pathologist | | | | | At | Signature | + + + + + + | Protein, | 5.4 (L)Comment: Testing | 6.3 - 8.2 g/dL | EXTERNAL | | | Total | performed at [facility], [address] | | LAB | | | | [address], | | | | | | [place] [address] | | | | + + + + + + | Albumin | 2.1 (L)Comment: Testing | 3.6 - 5.0 g/dL | EXTERNAL | | | | performed at [facility], [address] | | LAB | | | | [address], | | | | | | [place] [address] | | | | + + + + + + | Bilirubin | 5.8 (H)Comment: Testing | 0.1 - 1.5 mg/dL | EXTERNAL | | | Total | performed at [facility], [address] | | LAB | | | | [address], | | | | | | [place] [address] | | | | + + + + + + | Bilirubin | 3.0 (H)Comment: Testing | 0.0 - 0.3 mg/dL | EXTERNAL | | | Direct | performed at [facility], [address] | | LAB | | | | [address], | | | | | | [place] [address] | | | | + + + + + + | ALP, | 49Comment: Testing | 35 - 115 U/L | EXTERNAL | | | External | performed at [facility], [address] | | LAB | | | | [address], | | | | | | [place] [address] | | | | + + + + + + | AST | 27Comment: Testing | 10 - 45 U/L | EXTERNAL | | | | performed at [facility], [address] | | LAB | | | | [address], | | | | | | [place] [address] | | | | + + + + + + | ALT | 28Comment: Testing | 10 - 65 U/L | EXTERNAL | | | | performed at [facility], [address] | | LAB | | | | [address], | | | | | | [place] [address] | | | | + + + + + + + + | Specimen | + + | | + + + +---------+ + + | Performing | Address | City/State/Zipcode | Phone Number | | Organization | | | | + +---------+ + + | EXTERNAL LAB | | | | + +---------+ + + Basic Metabolic Panel (10/08/2015 4:16 AM PDT) + + + + + + | Component | Value | Ref Range | Performed | Pathologist | | | | | At | Signature | + + + + + + | Na | 131 (L)Comment: Testing | 135 - 145 | EXTERNAL | | | | performed at [facility], [address] | mmol/L | LAB | | | | [address], | | | | | | [place] [address] | | | | + + + + + + | K | 4.2Comment: Testing | 3.5 - 4.9 | EXTERNAL | | | | performed at [facility], [address] | mmol/L | LAB | | | | [address], | | | | | | [place] [address] | | | | + + + + + + | Cl | 93 (L)Comment: Testing | 99 - 109 mmol/L | EXTERNAL | | | | performed at [facility], [address] | | LAB | | | | [address], | | | | | | [place] [address] | | | | + + + + + + | CO2 | 24Comment: Testing | 23 - 32 mmol/L | EXTERNAL | | | | performed at [facility], [address] | | LAB | | | | [address], | | | | | | [place] [address] | | | | + + + + + + | Anion Gap | 18Comment: Testing | 5 - 20 mmol/L | EXTERNAL | | | | performed at [facility], [address] | | LAB | | | | [address], | | | | | | [place] [address] | | | | + + + + + + | Glucose, | 129 (H)Comment: Testing | 65 - 99 mg/dL | EXTERNAL | | | Fasting | performed at [facility], [address] | | LAB | | | | [address], | | | | | | [place] [address] | | | | + + + + + + | BUN | 58 (H)Comment: Testing | 8 - 25 mg/dL | EXTERNAL | | | | performed at [facility], [address] | | LAB | | | | [address], | | | | | | [place] [address] | | | | + + + + + + | Creatinine | 3.9 (H)Comment: Testing | 0.70 - 1.30 | EXTERNAL | | | | performed at [facility], [address] | mg/dL | LAB | | | | [address], | | | | | | [place] [address] | | | | + + + + + + | BUN/Creatin | 15Comment: Testing | | EXTERNAL | | | ine Ratio | performed at [facility], [address] | | LAB | | | | [address], | | | | | | [place] [address] | | | | + + + + + + | Calcium | 6.6 (L)Comment: Testing | 8.5 - 10.5 | EXTERNAL | | | | performed at [facility], [address] | mg/dL | LAB | | | | [address], | | | | | | [place] [address] | | | | + + + + + + | Estimated | 19 (L)Comment: GFR <60: | mL/min/1.73m2 | EXTERNAL | | | GFR | CHRONIC KIDNEY DISEASE, | | LAB | | | | IF FOUND OVER A 3 MONTH | | | | | | PERIOD.GFR <15: KIDNEY | | | | | | FAILURE.FOR | | | | | | AMERICANS, MULTIPLY THE | | | | | | CALCULATED GFR BY | | | | | | 1.210.Testing performed | | | | | | at [facility], [address] | | | | | | [address], | | | | | | [place] [address] | | | | + + + + + + + + | Specimen | + + | Blood specimen | | (specimen) | + + + +---------+ + + | Performing | Address | City/State/Zipcode | Phone Number | | Organization | | | | + +---------+ + + | EXTERNAL LAB | | | | + +---------+ + + Sodium (10/07/2015 6:25 PM PDT) + + + + + + | Component | Value | Ref Range | Performed | Pathologist | | | | | At | Signature | + + + + + + | Na | 131 (L)Comment: Testing | 135 - 145 | EXTERNAL | | | | performed at [facility];[address] | mmol/L | LAB | | | | [address];[place] | | | | | | [address] | | | | + + + + + + + + | Specimen | + + | Blood specimen | | (specimen) | + + + +---------+ + + | Performing | Address | City/State/Zipcode | Phone Number | | Organization | | | | + +---------+ + + | EXTERNAL LAB | | | | + +---------+ + + Hemoglobin and Hematocrit (10/07/2015 2:46 PM PDT) + + + + + + | Component | Value | Ref Range | Performed | Pathologist | | | | | At | Signature | + + + + + + | Hemoglobin | 7.6 (L)Comment: Testing | 13.2 - 17.0 | EXTERNAL | | | | performed at [facility];[address] | g/dL | LAB | | | | [address];[place] | | | | | | [address] | | | | + + + + + + | Hematocrit, | 22.2 (L)Comment: Testing | 39.0 - 50.0 % | EXTERNAL | | | POC | performed at [facility];[address] | | LAB | | | | [address];[place] | | | | | | [address] | | | | + + + + + + + + | Specimen | + + | | + + + +---------+ + + | Performing | Address | City/State/Zipcode | Phone Number | | Organization | | | | + +---------+ + + | EXTERNAL LAB | | | | + +---------+ + + Sodium (10/07/2015 2:46 PM PDT) + + + + + + | Component | Value | Ref Range | Performed | Pathologist | | | | | At | Signature | + + + + + + | Na | 129 (L)Comment: Testing | 135 - 145 | EXTERNAL | | | | performed at [facility];[address] | mmol/L | LAB | | | | [address];[place], [place] | | | | | | [address] | | | | + + + + + + + + | Specimen | + + | Blood specimen | | (specimen) | + + + +---------+ + + | Performing | Address | City/State/Zipcode | Phone Number | | Organization | | | | + +---------+ + + | EXTERNAL LAB | | | | + +---------+ + + ECHO Complete (10/07/2015 2:20 PM PDT) + + | Specimen | + + | | + + + + + | Impressions | Performed At | + + + | 1. There is mild pulmonary hypertension. 2. Moderate sized, mobile | | | vegetation attached to the septal tricuspid valve leaflet. | | + + + + + + | Narrative | Performed At | + + + | Patient Name: YANG RIDLEY Date of : 1985 | | | Performing Physician: Alan Villanueva | | | MD | | | ------REPORT ADDENDED------ INDICATIONS Infective | | | Endocarditis. CONCLUSIONS 1. There is mild pulmonary | | | hypertension. 2. Moderate sized, mobile vegetation attached to the | | | septal tricuspid valve leaflet. FINDINGS -------- ECG rhythm: | | | Sinus rhythm. Study: A 2-dimensional transthoracic echocardiogram | | | with m-mode, spectral and color flow Doppler was perfomed. Study: | | | This was a technically adequate study. Left Ventricle: Overall left | | | ventricular systolic function is normal with, an EF between 60 - 65 %. | | | Left Ventricle: Left Ventricle ejection fraction by m-mode measures | | | 82%. Left Ventricle: The left ventricle cavity size is normal. Left | | | Ventricle: Left ventricular wall thickness is normal. Right | | | Ventricle: The right ventricle is normal in size. Right Ventricle: | | | The right ventricular systolic function is normal. Left Atrium: The | | | left atrial size is normal Left Atrium: , and the LA measures 3.4cm. | | | Right Atrium: The right atrial size is normal Right Atrium: , and | | | the RA measures 3.0cm. Aortic Valve: The aortic valve is trileaflet | | | and appears structurally normal. Aortic Valve: There is no evidence | | | of aortic regurgitation. Aortic Valve: No aortic valve vegetation | | | seen. Mitral Valve: The mitral valve is normal. Mitral Valve: There | | | is trace mitral regurgitation. Tricuspid Valve: The tricuspid valve | | | appears structurally normal. Tricuspid Valve: Moderate tricuspid | | | regurgitation present. Tricuspid Valve: There is mild pulmonary | | | hypertension. Tricuspid Valve: The right ventricular systolic | | | pressure (pulmonary artery systolic pressure), as measured by Doppler, | | | is 39 + 10 = 49mmHg. Tricuspid Valve: Moderate, mobile vegetation | | | attached to the septal tricuspid valve leaflet. Pulmonic Valve: The | | | pulmonic valve is normal. Pericardium: There is no pericardial | | | effusion. Mass: No mass visualized Thrombus: No clot visualized | | | MEASUREMENTS LA Major: 3.48 cm LVOT Diam: 2.34 | | | cm RA Major: 3.02 cm RVIDd: 2.72 cm LVEF MOD A2C: 56.30 % | | | SV MOD A2C: 69.63 ml LVEF MOD A4C: 62.30 % SV MOD A4C: | | | 58.81 ml EF Biplane: 59.82 % LVEDV MOD BP: 112.36 ml LVESV | | | MOD BP: 45.14 ml LVEDV MOD A2C: 123.68 ml LVLd A2C: 8.94 cm | | | LVEDV MOD A4C: 94.39 ml LVLd A4C: 8.22 cm LVESV MOD A2C: | | | 54.04 ml LVLs A2C: 7.02 cm LVESV MOD A4C: 35.57 ml LVLs A4C: | | | 6.56 cm Ao Diam: 3.31 cm AV Cusp: 2.30 cm LA Diam: 3.41 | | | cm LA/Ao: 1.02 %FS: 51.30 % EDV(Teich): 135.42 ml | | | EF(Teich): 82.14 % ESV(Teich): 24.17 ml IVSd: 0.64 cm | | | IVSs: 1.19 cm LVIDd: 5.30 cm LVIDs: 2.58 cm LVPWd: 0.96 | | | cm LVPWs: 1.61 cm SV(Teich): 111.25 ml D-E Excursion: | | | 2.51 cm E-F [place]: 0.10 m/s EPSS: 0.08 cm HR: 83.23 BPM | | | AV maxP.59 mmHg AV meanP.49 mmHg AV Vmax: 1.07 m/s | | | AV Vmean: 0.74 m/s AV VTI: 17.42 cm MAGUI Vmax: 5.07 cm2 | | | MAGUI (VTI): 4.20 cm2 LVCI Dopp: 3.44 l/minm2 LVCO Dopp: 6.29 | | | l/min HR: 85.87 BPM LVOT maxP.30 mmHg LVOT meanPG: | | | 2.91 mmHg LVSI Dopp: 40.07 ml/m2 LVSV Dopp: 73.34 ml LVOT | | | Vmax: 1.25 m/s LVOT Vmean: 0.76 m/s LVOT VTI: 16.94 cm | | | MCO: 316.08 ms MV A Jazlyn: 0.43 m/s MV DecT: 160.01 ms MV E | | | Jazlyn: 0.71 m/s MV E/A Ratio: 1.64 MV PHT: 59.02 ms MVA By | | | PHT: 3.72 cm2 MV A Dur: 72.08 ms Septal e': 0.11 m/s | | | Septal E/e': 6.36 P Vein A: 0.28 m/s P Vein A Dur: 77.63 ms | | | P Vein D: 0.49 m/s P Vein S/D Ratio: 0.56 P Vein S: 0.27 | | | m/s HR: 78.40 BPM PV maxP.96 mmHg PV meanP.20 mmHg | | | PV Vmax: 1.11 m/s PV Vmean: 0.86 m/s PV VTI: 16.73 cm TR | | | maxP.13 mmHg TR Vmax: 3.12 m/s TV A Jazlyn: 0.57 m/s TV | | | Dec Kenton: 4.99 m/s2 TV Dec Time: 222.33 ms TV E Jazlyn: 1.11 | | | m/s TV E/A Ratio: 1.93 Under Trimmer: JESSICA Authenticated by: | | | Alan Villanueva MD Report Date/Time: 10-08-2015 08:29:23 | | + + + + + | Procedure Note | + + | Erasmo Payne Conversion - 11/01/2018 7:23 PM PDT Patient Name: Gwen RIDLEY | | : 1985 Performing Physician: Alan Villanueva | | ------REPORT | | ADDENDED------INDICATIONS Infective Endocarditis. CONCLUSIONS 1. | | There is mild pulmonary hypertension.2. Moderate sized, mobile vegetation attached to | | the septal tricuspid valve leaflet. FINDINGS--------ECG rhythm: Sinus rhythm.Study: A | | 2-dimensional transthoracic echocardiogram with m-mode, spectral and color flow Doppler | | was perfomed.Study: This was a technically adequate study.Left Ventricle: Overall left | | ventricular systolic function is normal with, an EF between 60 - 65 %.Left Ventricle: | | Left Ventricle ejection fraction by m-mode measures 82%.Left Ventricle: The left | | ventricle cavity size is normal.Left Ventricle: Left ventricular wall thickness is | | normal.Right Ventricle: The right ventricle is normal in size.Right Ventricle: The right | | ventricular systolic function is normal.Left Atrium: The left atrial size is normalLeft | | Atrium: , and the LA measures 3.4cm.Right Atrium: The right atrial size is normalRight | | Atrium: , and the RA measures 3.0cm.Aortic Valve: The aortic valve is trileaflet and | | appears structurally normal.Aortic Valve: There is no evidence of aortic | | regurgitation.Aortic Valve: No aortic valve vegetation seen.Mitral Valve: The mitral | | valve is normal.Mitral Valve: There is trace mitral regurgitation.Tricuspid Valve: The | | tricuspid valve appears structurally normal.Tricuspid Valve: Moderate tricuspid | | regurgitation present.Tricuspid Valve: There is mild pulmonary hypertension.Tricuspid | | Valve: The right ventricular systolic pressure (pulmonary artery systolic pressure), as | | measured by Doppler, is 39 + 10 = 49mmHg.Tricuspid Valve: Moderate, mobile vegetation | | attached to the septal tricuspid valve leaflet.Pulmonic Valve: The pulmonic valve is | | normal.Pericardium: There is no pericardial effusion.Mass: No mass visualizedThrombus: | | No clot visualized MEASUREMENTS LA Major: 3.48 cmLVOT Diam: 2.34 cmRA | | Major: 3.02 cmRVIDd: 2.72 cmLVEF MOD A2C: 56.30 %SV MOD A2C: 69.63 mlLVEF MOD | | A4C: 62.30 %SV MOD A4C: 58.81 mlEF Biplane: 59.82 %LVEDV MOD BP: 112.36 mlLVESV | | MOD BP: 45.14 mlLVEDV MOD A2C: 123.68 mlLVLd A2C: 8.94 cmLVEDV MOD A4C: 94.39 | | mlLVLd A4C: 8.22 cmLVESV MOD A2C: 54.04 mlLVLs A2C: 7.02 cmLVESV MOD A4C: 35.57 | | mlLVLs A4C: 6.56 cmAo Diam: 3.31 cmAV Cusp: 2.30 cmLA Diam: 3.41 cmLA/Ao: | | 1.02%FS: 51.30 %EDV(Teich): 135.42 mlEF(Teich): 82.14 %ESV(Teich): 24.17 mlIVSd: | | 0.64 cmIVSs: 1.19 cmLVIDd: 5.30 cmLVIDs: 2.58 cmLVPWd: 0.96 cmLVPWs: 1.61 | | cmSV(Teich): 111.25 mlD-E Excursion: 2.51 cmE-F [place]: 0.10 m/sEPSS: 0.08 cmHR: | | 83.23 BPMAV maxP.59 mmHgAV meanP.49 mmHgAV Vmax: 1.07 m/Sofiya Vmean: | | 0.74 m/Sofiya VTI: 17.42 cmAVA Vmax: 5.07 cm2AVA (VTI): 4.20 [id number] Dopp: 3.44 | | [id number] Dopp: 6.29 l/minHR: 85.87 BPMLVOT maxP.30 mmHgLVOT meanP.91 | | mmHgLVSI Dopp: 40.07 ml/m2LVSV Dopp: 73.34 mlLVOT Vmax: 1.25 m/sLVOT Vmean: 0.76 | | m/sLVOT VTI: 16.94 cmMCO: 316.08 msMV A Jazlyn: 0.43 m/sMV DecT: 160.01 msMV E | | Jazlyn: 0.71 m/sMV E/A Ratio: 1.64MV PHT: 59.02 msMVA By PHT: 3.72 cm2MV A Dur: | | 72.08 msSeptal e': 0.11 m/sSeptal E/e': 6.36P Vein A: 0.28 m/sP Vein A Dur: | | 77.63 msP Vein D: 0.49 m/sP Vein S/D Ratio: 0.56P Vein S: 0.27 m/sHR: 78.40 | | BPMPV maxP.96 mmHgPV meanP.20 mmHgPV Vmax: 1.11 m/sPV Vmean: 0.86 m/sPV | | VTI: 16.73 cmTR maxP.13 mmHgTR Vmax: 3.12 m/sTV A Jazlyn: 0.57 m/sTV Dec | | Kenton: 4.99 m/s2TV Dec Time: 222.33 msTV E Jazlyn: 1.11 m/sTV E/A Ratio: 1.93 | | Under Trimmer: MIKAuthenticated by: Alan Kennedyort Date/Time: 10-08-2015 | | 08:29:23 IMPRESSION: 1. There is mild pulmonary hypertension.2. Moderate sized, mobile | | vegetation attached to the septal tricuspid valve leaflet. | |Thrombus: No clot visualized | | | |MEASUREMENTS | | | |LA Major: 3.48 cm | |LVOT Diam: 2.34 cm | |RA Major: 3.02 cm | |RVIDd: 2.72 cm | |LVEF MOD A2C: 56.30 % | |SV MOD A2C: 69.63 ml | |LVEF MOD A4C: 62.30 % | |SV MOD A4C: 58.81 ml | |EF Biplane: 59.82 % | |LVEDV MOD BP: 112.36 ml | |LVESV MOD BP: 45.14 ml | |LVEDV MOD A2C: 123.68 ml | |LVLd A2C: 8.94 cm | |LVEDV MOD A4C: 94.39 ml | |LVLd A4C: 8.22 cm | |LVESV MOD A2C: 54.04 ml | |LVLs A2C: 7.02 cm | |LVESV MOD A4C: 35.57 ml | |LVLs A4C: 6.56 cm | |Ao Diam: 3.31 cm | |AV Cusp: 2.30 cm | |LA Diam: 3.41 cm | |LA/Ao: 1.02 | |%FS: 51.30 % | |EDV(Teich): 135.42 ml | |EF(Teich): 82.14 % | |ESV(Teich): 24.17 ml | |IVSd: 0.64 cm | |IVSs: 1.19 cm | |LVIDd: 5.30 cm | |LVIDs: 2.58 cm | |LVPWd: 0.96 cm | |LVPWs: 1.61 cm | |SV(Teich): 111.25 ml | |D-E Excursion: 2.51 cm | |E-F [place]: 0.10 m/s | |EPSS: 0.08 cm | |HR: 83.23 BPM | |AV maxP.59 mmHg | |AV meanP.49 mmHg | |AV Vmax: 1.07 m/s | |AV Vmean: 0.74 m/s | |AV VTI: 17.42 cm | |MAGUI Vmax: 5.07 cm2 | |MAGUI (VTI): 4.20 cm2 | |LVCI Dopp: 3.44 l/minm2 | |LVCO Dopp: 6.29 l/min | |HR: 85.87 BPM | |LVOT maxP.30 mmHg | |LVOT meanP.91 mmHg | |LVSI Dopp: 40.07 ml/m2 | |LVSV Dopp: 73.34 ml | |LVOT Vmax: 1.25 m/s | |LVOT Vmean: 0.76 m/s | |LVOT VTI: 16.94 cm | |MCO: 316.08 ms | |MV A Jazlyn: 0.43 m/s | |MV DecT: 160.01 ms | |MV E Jazlyn: 0.71 m/s | |MV E/A Ratio: 1.64 | |MV PHT: 59.02 ms | |MVA By PHT: 3.72 cm2 | |MV A Dur: 72.08 ms | |Septal e': 0.11 m/s | |Septal E/e': 6.36 | |P Vein A: 0.28 m/s | |P Vein A Dur: 77.63 ms | |P Vein D: 0.49 m/s | |P Vein S/D Ratio: 0.56 | |P Vein S: 0.27 m/s | |HR: 78.40 BPM | |PV maxP.96 mmHg | |PV meanP.20 mmHg | |PV Vmax: 1.11 m/s | |PV Vmean: 0.86 m/s | |PV VTI: 16.73 cm | |TR maxP.13 mmHg | |TR Vmax: 3.12 m/s | |TV A Jazlyn: 0.57 m/s | |TV Dec Kenton: 4.99 m/s2 | |TV Dec Time: 222.33 ms | |TV E Jazlyn: 1.11 m/s | |TV E/A Ratio: 1.93 | | | |Under Trimmer: JESSICA | |Authenticated by: Alan Villanueva MD | |Report Date/Time: 10-08-2015 08:29:23 | | | |IMPRESSION: | |1. There is mild pulmonary hypertension. | |2. Moderate sized, mobile vegetation attached to the septal tricuspid valve leaflet. | + + Sodium (10/07/2015 11:42 AM PDT) + + + + + + | Component | Value | Ref Range | Performed | Pathologist | | | | | At | Signature | + + + + + + | Na | 130 (L)Comment: Testing | 135 - 145 | EXTERNAL | | | | performed at [facility];888 | mmol/L | LAB | | | | [address];[place] | | | | | | [id number] | | | | + + + + + + + + | Specimen | + + | Blood specimen | | (specimen) | + + + +---------+ + + | Performing | Address | City/State/Zipcode | Phone Number | | Organization | | | | + +---------+ + + | EXTERNAL LAB | | | | + +---------+ + + Sodium (10/07/2015 6:49 AM PDT) + + + + + + | Component | Value | Ref Range | Performed | Pathologist | | | | | At | Signature | + + + + + + | Na | 127 (L)Comment: Testing | 135 - 145 | EXTERNAL | | | | performed at [facility] [place];888 | mmol/L | LAB | | | | [address];[place] | | | | | | [id number] | | | | + + + + + + + + | Specimen | + + | Blood specimen | | (specimen) | + + + +---------+ + + | Performing | Address | City/State/Zipcode | Phone Number | | Organization | | | | + +---------+ + + | EXTERNAL LAB | | | | + +---------+ + + Protime INR (10/07/2015 5:34 AM PDT) + + + + + + | Component | Value | Ref Range | Performed | Pathologist | | | | | At | Signature | + + + + + + | INR | 1.5Comment: REFERENCE | | EXTERNAL | | | | RANGE:0.9 - 1.2 | | LAB | | | | NON-ANTICOAGULATED2.0 | | | | | | - 3.0 ALL OTHER | | | | | | THERAPEUTIC | | | | | | INDICATIONS2.5 - 3.5 | | | | | | MECHANICAL HEART VALVES, | | | | | | RECURRENT OR SYSTEMIC | | | | | | EMBOLISMTesting | | | | | | performed at [facility] | | | | | | [facility];[place] | | | | | | [address] | | | | + + + + + + + + | Specimen | + + | | + + + +---------+ + + | Performing | Address | City/State/Zipcode | Phone Number | | Organization | | | | + +---------+ + + | EXTERNAL LAB | | | | + +---------+ + + External Lab: DEON (10/07/2015 5:34 AM PDT) + + + + + + | Component | Value | Ref Range | Performed | Pathologist | | | | | At | Signature | + + + + + + | WBC | 12.88 (H)Comment: | 3.80 - 11.00 | EXTERNAL | | | | Testing performed at | K/uL | LAB | | | | [facility];[address];[place] [address] | | | | + + + + + + | Non- | 1.93 (L)Comment: Testing | 4.20 - 5.70 | EXTERNAL | | | Red Blood | performed at [facility];[address] | M/uL | LAB | | | Cells | [address];[place] | | | | | Counted | [id number] | | | | + + + + + + | Hemoglobin | 5.3 (LL)Comment: RESULTS | 13.2 - 17.0 | EXTERNAL | | | | CALLED TO CARINE Phelps/LYNN | g/dL | LAB | | | | 0620T,HARRISREAD BACK | | | | | | RESULTS VERIFIEDTesting | | | | | | performed at [facility];[address] | | | | | | [address];[place] | | | | | | [address] | | | | + + + + + + | Hematocrit, | 15.1 (LL)Comment: | 39.0 - 50.0 % | EXTERNAL | | | POC | RESULTS CALLED TO CARINE | | LAB | | | | D/LYNN 0620T,RICARDO BACK | | | | | | RESULTS VERIFIEDTesting | | | | | | performed at [facility];[address] | | | | | | [address];[place] | | | | | | [address] | | | | + + + + + + | MCV | 78.4 (L)Comment: Testing | 80.0 - 100.0 fl | EXTERNAL | | | | performed at [facility];[address] | | LAB | | | | [address];[place] | | | | | | [address] | | | | + + + + + + | MCH | 27.4Comment: Testing | 27.0 - 34.0 pg | EXTERNAL | | | | performed at [facility];[address] | | LAB | | | | [address];[place] | | | | | | [address] | | | | + + + + + + | MCHC | 34.9Comment: Testing | 32.0 - 35.5 | EXTERNAL | | | | performed at [facility];888 | g/dL | LAB | | | | [address];[place] | | | | | | [address] | | | | + + + + + + | RDW-CV | 41.6Comment: Testing | 37 - 53 fl | EXTERNAL | | | | performed at [facility];[address] | | LAB | | | [address];[place] | | | | | | [address] | | | | + + + + + + | Platelet | 165Comment: Testing | 150 - 400 K/uL | EXTERNAL | | | Count | performed at [facility];[address] | | LAB | | | Plasma | [address];[place] | | | | | | [address] | | | | + + + + + + | MPV | 8.1Comment: Testing | fl | EXTERNAL | | | | performed at [facility];[address] | | LAB | | | [address];[place] | | | | | | [address] | | | | + + + + + + | Differentia | MANUALComment: Testing | | EXTERNAL | | | l Type | performed at [facility];[address] | | LAB | | | [address];[place] | | | | | | [address] | | | | + + + + + + | Segmented | 81Comment: Testing | % | EXTERNAL | | | Neutrophils | performed at [facility];[address] | | LAB | | | Manual | [address];[place] | | | | | | [address] | | | | + + + + + + | % Bands | 4Comment: Testing | % | EXTERNAL | | | | performed at [facility];[address] | | LAB | | | [address];[place] | | | | | | [address] | | | | + + + + + + | Lymphocytes | 10Comment: Testing | % | EXTERNAL | | | Manual | performed at [facility];[address] | | LAB | | | | [address];[place] | | | | | | [address] | | | | + + + + + + | Monocytes | 5Comment: Testing | % | EXTERNAL | | | Manual | performed at [facility];[address] | | LAB | | | [address];[place] | | | | | | [address] | | | | + + + + + + | Absolute | 10.43 (H)Comment: | 1.90 - 7.40 | EXTERNAL | | | Neutrophils | Testing performed at | K/uL | LAB | | | | [facility];[address];[place] [address] | | | | + + + + + + | Bands | 0.52 (H)Comment: Testing | 0.00 - 0.20 | EXTERNAL | | | Manual | performed at [facility];[address] | K/uL | LAB | | | | [address];[place] | | | | | | [address] | | | | + + + + + + | Absolute | 1.29Comment: Testing | 1.00 - 3.90 | EXTERNAL | | | Lymphocytes | performed at [facility];[address] | K/uL | LAB | | | | [address];[place] | | | | | | [address] | | | | + + + + + + | Absolute | 0.64Comment: Testing | 0.00 - 0.80 | EXTERNAL | | | Monocytes | performed at [facility];[address] | K/uL | LAB | | | | [address];[place] | | | | | | [address] | | | | + + + + + + | RBC | RBC AND PLT MORPHOLOGY | | EXTERNAL | | | Morphology | APPEAR NORMALComment: | | LAB | | | | Testing performed at | | | | | | [facility];[address];[place] [address] | | | | + + + + + + + + | Specimen | + + | | + + + +---------+ + + | Performing | Address | City/State/Zipcode | Phone Number | | Organization | | | | + +---------+ + + | EXTERNAL LAB | | | | + +---------+ + + Uric Acid (10/07/2015 5:34 AM PDT) + + + + + + | Component | Value | Ref Range | Performed | Pathologist | | | | | At | Signature | + + + + + + | Uric Acid | 9.7 (H)Comment: Testing | 3.2 - 8.6 mg/dL | EXTERNAL | | | | performed at [facility];[address] | | LAB | | | [address];[place], [place] | | | | | | [address] | | | | + + + + + + + + | Specimen | + + | | + + + +---------+ + + | Performing | Address | City/State/Zipcode | Phone Number | | Organization | | | | + +---------+ + + | EXTERNAL LAB | | | | + +---------+ + + Phosphorus (10/07/2015 5:34 AM PDT) + + + + + + | Component | Value | Ref Range | Performed | Pathologist | | | | | At | Signature | + + + + + + | PHOSPHORUS | 7.6 (H)Comment: Testing | 2.3 - 4.8 mg/dL | EXTERNAL | | | | performed at [facility] | | LAB | | | | [facility], [place] | | | | | | [address] | | | | + + + + + + + + | Specimen | + + | | + + + +---------+ + + | Performing | Address | City/State/Zipcode | Phone Number | | Organization | | | | + +---------+ + + | EXTERNAL LAB | | | | + +---------+ + + Hepatic Function Panel (10/07/2015 5:34 AM PDT) + + + + + + | Component | Value | Ref Range | Performed | Pathologist | | | | | At | Signature | + + + + + + | Protein, | 5.0 (L)Comment: Testing | 6.3 - 8.2 g/dL | EXTERNAL | | | Total | performed at [facility];[address] | | LAB | | | | [address];[place], [place] | | | | | | [address] | | | | + + + + + + | Albumin | 1.9 (L)Comment: Testing | 3.6 - 5.0 g/dL | EXTERNAL | | | | performed at [facility];[address] | | LAB | | | | [address];[place] | | | | | | [address] | | | | + + + + + + | Bilirubin | 6.0 (H)Comment: Testing | 0.1 - 1.5 mg/dL | EXTERNAL | | | Total | performed at [facility];[address] | | LAB | | | | [address];[place] | | | | | | [address] | | | | + + + + + + | Bilirubin | 3.1 (H)Comment: Testing | 0.0 - 0.3 mg/dL | EXTERNAL | | | Direct | performed at [facility];[address] | | LAB | | | [address];[place] | | | | | | [address] | | | | + + + + + + | ALP, | 49Comment: Testing | 35 - 115 U/L | EXTERNAL | | | External | performed at [facility];[address] | | LAB | | | [address];[place] | | | | | | [address] | | | | + + + + + + | AST | 32Comment: Testing | 10 - 45 U/L | EXTERNAL | | | | performed at [facility];[address] | | LAB | | | | [address];[place] | | | | | | [address] | | | | + + + + + + | ALT | 29Comment: Testing | 10 - 65 U/L | EXTERNAL | | | | performed at [facility];[address] | | LAB | | | [address];[place] | | | | | | [address] | | | | + + + + + + + + | Specimen | + + | | + + + +---------+ + + | Performing | Address | City/State/Zipcode | Phone Number | | Organization | | | | + +---------+ + + | EXTERNAL LAB | | | | + +---------+ + + Basic Metabolic Panel (10/07/2015 5:34 AM PDT) + + + + + + | Component | Value | Ref Range | Performed | Pathologist | | | | | At | Signature | + + + + + + | Na | 126 (L)Comment: Testing | 135 - 145 | EXTERNAL | | | | performed at [facility];[address] | mmol/L | LAB | | | | [address];[place] | | | | | | [address] | | | | + + + + + + | K | 4.8Comment: Testing | 3.5 - 4.9 | EXTERNAL | | | | performed at [facility];888 | mmol/L | LAB | | | | [address];[place] | | | | | | [address] | | | | + + + + + + | Cl | 89 (L)Comment: Testing | 99 - 109 mmol/L | EXTERNAL | | | | performed at [facility];[address] | | LAB | | | | [address];[place] | | | | | | [address] | | | | + + + + + + | CO2 | 22 (L)Comment: Testing | 23 - 32 mmol/L | EXTERNAL | | | | performed at [facility];[address] | | LAB | | | | [address];[place] | | | | | | [address] | | | | + + + + + + | Anion Gap | 18Comment: Testing | 5 - 20 mmol/L | EXTERNAL | | | | performed at [facility];[address] | | LAB | | | | [address];[place] | | | | | | [address] | | | | + + + + + + | Glucose, | 113 (H)Comment: Testing | 65 - 99 mg/dL | EXTERNAL | | | Fasting | performed at [facility];[address] | | LAB | | | | [address];[place] | | | | | | [address] | | | | + + + + + + | BUN | 77 (H)Comment: Testing | 8 - 25 mg/dL | EXTERNAL | | | | performed at [facility];[address] | | LAB | | | | [address];[place] | | | | | | [address] | | | | + + + + + + | Creatinine | 3.8 (H)Comment: Testing | 0.70 - 1.30 | EXTERNAL | | | | performed at [facility];888 | mg/dL | LAB | | | | [address];[place] | | | | | | [address] | | | | + + + + + + | BUN/Creatin | 20Comment: Testing | | EXTERNAL | | | ine Ratio | performed at [facility];[address] | | LAB | | | | [address];[place] | | | | | | [address] | | | | + + + + + + | Calcium | 6.4 (L)Comment: Testing | 8.5 - 10.5 | EXTERNAL | | | | performed at [facility];888 | mg/dL | LAB | | | | [address];[place] | | | | | | [address] | | | | + + + + + + | Estimated | 20 (L)Comment: GFR <60: | mL/min/1.73m2 | EXTERNAL | | | GFR | CHRONIC KIDNEY DISEASE, | | LAB | | | | IF FOUND OVER A 3 MONTH | | | | | | PERIOD.GFR <15: KIDNEY | | | | | | FAILURE.FOR | | | | | | AMERICANS, MULTIPLY THE | | | | | | CALCULATED GFR BY | | | | | | 1.210.Testing performed | | | | | | at [facility];[address];[place] [address] | | | | + + + + + + + + | Specimen | + + | | + + + +---------+ + + | Performing | Address | City/State/Zipcode | Phone Number | | Organization | | | | + +---------+ + + | EXTERNAL LAB | | | | + +---------+ + + Protime INR (10/07/2015 3:57 AM PDT) + + + + + + | Component | Value | Ref Range | Performed | Pathologist | | | | | At | Signature | + + + + + + | Protime | POOR QUALITY SPECIMEN | seconds | EXTERNAL | | | | FROM THE LINE DRAW, | | LAB | | | | CHARGES CREDITED, | | | | | | PATIENT REDRAWN.Comment: | | | | | | Testing performed at | | | | | | [facility];[address];[place] [address] | | | | + + + + + + | INR | POOR QUALITY SPECIMEN | | EXTERNAL | | | | FROM THE LINE DRAW, | | LAB | | | | CHARGES CREDITED, | | | | | | PATIENT REDRAWN.Comment: | | | | | | Testing performed at | | | | | | [facility];[address];[place], [place] | | | | | | [id number] ON 10/06 | | | | | | AT 0622: PREVIOUSLY | | | | | | REPORTED 1.5 | | | | | | REFERENCE RANGE: 0.9 | | | | | | 1.2 NON ANTICOAGULATED | | | | | | 2.0 3.0 ALL OTHER | | | | | | THERAPEUTIC INDICATIONS | | | | | | 2.5 3.5 MECHANICAL | | | | | | HEART VALVES, RECURRENT | | | | | | OR SYSTEMIC EMBOLISM | | | | + + + + + + + + | Specimen | + + | Blood specimen | | (specimen) | + + + +---------+ + + | Performing | Address | City/State/Zipcode | Phone Number | | Organization | | | | + +---------+ + + | EXTERNAL LAB | | | | + +---------+ + + Sodium (10/06/2015 10:15 PM PDT) + + + + + + | Component | Value | Ref Range | Performed | Pathologist | | | | | At | Signature | + + + + + + | Na | 126 (L)Comment: Testing | 135 - 145 | EXTERNAL | | | | performed at [facility];888 | mmol/L | LAB | | | | [address];[place] | | | | | | [address] | | | | + + + + + + + + | Specimen | + + | Blood specimen | | (specimen) | + + + +---------+ + + | Performing | Address | City/State/Zipcode | Phone Number | | Organization | | | | + +---------+ + + | EXTERNAL LAB | | | | + +---------+ + + Basic Metabolic Panel (10/06/2015 6:46 PM PDT) + + + + + + | Component | Value | Ref Range | Performed | Pathologist | | | | | At | Signature | + + + + + + | Na | 128 (L)Comment: Testing | 135 - 145 | EXTERNAL | | | | performed at [facility];888 | mmol/L | LAB | | | | [address];[place] | | | | | | [address] | | | | + + + + + + | K | 4.7Comment: Testing | 3.5 - 4.9 | EXTERNAL | | | | performed at [facility];888 | mmol/L | LAB | | | | [address];[place] | | | | | | [address] | | | | + + + + + + | Cl | 91 (L)Comment: Testing | 99 - 109 mmol/L | EXTERNAL | | | | performed at [facility];[address] | | LAB | | | | [address];[place] | | | | | | [address] | | | | + + + + + + | CO2 | 23Comment: Testing | 23 - 32 mmol/L | EXTERNAL | | | | performed at [facility];[address] | | LAB | | | | [address];[place] | | | | | | [address] | | | | + + + + + + | Anion Gap | 18Comment: Testing | 5 - 20 mmol/L | EXTERNAL | | | | performed at [facility];[address] | | LAB | | | | [address];[place] | | | | | | [address] | | | | + + + + + + | Glucose, | 92Comment: Testing | 65 - 99 mg/dL | EXTERNAL | | | Fasting | performed at [facility];[address] | | LAB | | | | [address];[place] | | | | | | [address] | | | | + + + + + + | BUN | 68 (H)Comment: Testing | 8 - 25 mg/dL | EXTERNAL | | | | performed at [facility];[address] | | LAB | | | | [address];[place] | | | | | | [address] | | | | + + + + + + | Creatinine | 2.9 (H)Comment: Testing | 0.70 - 1.30 | EXTERNAL | | | | performed at [facility];888 | mg/dL | LAB | | | | [address];[place] | | | | | | [address] | | | | + + + + + + | BUN/Creatin | 24Comment: Testing | | EXTERNAL | | | ine Ratio | performed at [facility];[address] | | LAB | | | [address];[place] | | | | | | [address] | | | | + + + + + + | Calcium | 6.4 (L)Comment: Testing | 8.5 - 10.5 | EXTERNAL | | | | performed at [facility];888 | mg/dL | LAB | | | | [address];[place] | | | | | | [address] | | | | + + + + + + | Estimated | 27 (L)Comment: GFR <60: | mL/min/1.73m2 | EXTERNAL | | | GFR | CHRONIC KIDNEY DISEASE, | | LAB | | | | IF FOUND OVER A 3 MONTH | | | | | | PERIOD.GFR <15: KIDNEY | | | | | | FAILURE.FOR | | | | | | AMERICANS, MULTIPLY THE | | | | | | CALCULATED GFR BY | | | | | | 1.210.Testing performed | | | | | | at [facility];[address] [place] [address] | | | | | | [facility];[place] [address] | | | | + + + + + + + + | Specimen | + + | Blood specimen | | (specimen) | + + + +---------+ + + | Performing | Address | City/State/Zipcode | Phone Number | | Organization | | | | + +---------+ + + | EXTERNAL LAB | | | | + +---------+ + + Sodium (10/06/2015 3:20 PM PDT) + + + + + + | Component | Value | Ref Range | Performed | Pathologist | | | | | At | Signature | + + + + + + | Na | 125 (L)Comment: Testing | 135 - 145 | EXTERNAL | | | | performed at [facility];888 | mmol/L | LAB | | | | [address];[place], [place] | | | | | | [address] | | | | + + + + + + + + | Specimen | + + | Blood specimen | | (specimen) | + + + +---------+ + + | Performing | Address | City/State/Zipcode | Phone Number | | Organization | | | | + +---------+ + + | EXTERNAL LAB | | | | + +---------+ + + Sodium (10/06/2015 11:09 AM PDT) + + + + + + | Component | Value | Ref Range | Performed | Pathologist | | | | | At | Signature | + + + + + + | Na | 121 (L)Comment: Testing | 135 - 145 | EXTERNAL | | | | performed at [facility];888 | mmol/L | LAB | | | | [address];[place] | | | | | | [address] | | | | + + + + + + + + | Specimen | + + | Blood specimen | | (specimen) | + + + +---------+ + + | Performing | Address | City/State/Zipcode | Phone Number | | Organization | | | | + +---------+ + + | EXTERNAL LAB | | | | + +---------+ + + Iron and Iron Binding Capacity (10/06/2015 10:18 AM PDT) + + + + + + | Component | Value | Ref Range | Performed | Pathologist | | | | | At | Signature | + + + + + + | Iron | 36 (L)Comment: Testing | 45 - 190 ug/dL | EXTERNAL | | | | performed at [facility], [address] | | LAB | | | [address], | | | | | | [place] [address] | | | | + + + + + + | TIBC | 85 (L)Comment: Testing | 250 - 450 ug/dL | EXTERNAL | | | | performed at [facility], [address] | | LAB | | | | [address], | | | | | | [place] [address] | | | | + + + + + + | Iron | 42Comment: Testing | 20 - 50 % | EXTERNAL | | | Saturation | performed at [facility], [address] | | LAB | | | | [address], | | | | | | [place] [address] | | | | + + + + + + + + | Specimen | + + | Blood specimen | | (specimen) | + + + +---------+ + + | Performing | Address | City/State/Zipcode | Phone Number | | Organization | | | | + +---------+ + + | EXTERNAL LAB | | | | + +---------+ + + Ferritin (10/06/2015 10:18 AM PDT) + + + + + + | Component | Value | Ref Range | Performed | Pathologist | | | | | At | Signature | + + + + + + | Ferritin, | 1,387 (H)Comment: | 11 - 450 ng/mL | EXTERNAL | | | External | Testing performed at | | LAB | | | | [facility], [address] | | | | | | [place] | | | | | | [address] | | | | + + + + + + + + | Specimen | + + | Blood specimen | | (specimen) | + + + +---------+ + + | Performing | Address | City/State/Zipcode | Phone Number | | Organization | | | | + +---------+ + + | EXTERNAL LAB | | | | + +---------+ + + XR Chest 1 Vw (10/06/2015 9:46 AM PDT) + + | Specimen | + + | | + + + + + | Impressions | Performed At | + + + | 1. Satisfactory RIGHT internal jugular dialysis catheter | | | placement. 2. Improving alveolar infiltrate in the LEFT lung. 3. | | | Persistent multiple bilateral septic emboli. 4. Persistent | | | bilateral small pleural effusions. | | + + + + + + | Narrative | Performed At | + + + | YANG RIDLEY XR CHEST 1 VIEW 10/06/2015 9:46 AM History: 30 | | | years. Male. New central venous line. Acute pulmonary septic | | | emboli. Technique: AP portable upright technique was performed at | | | 0940 hours. Comparison: 10/06/15, at 0537 hours Findings: A new | | | RIGHT internal jugular central venous dialysis catheter is visualized | | | with its tip at the junction of superior vena cava and RIGHT atrium. | | | Persistent RIGHT brachial PICC line is noted with its tip in the | | | proximal RIGHT atrium. No visible RIGHT pneumothorax. | | | Irregular pulmonary nodules are again visualized throughout both lung | | | barry, representing known pulmonary septic emboli. The | | | hemidiaphragms are obscured, due to small bilateral pleural effusions. | | | The cardiac volume is normal. Generalized alveolar infiltrate | | | visualized in the LEFT lung at 0537 hours today has partially cleared. | | | | | + + + + + | Procedure Note | + + | Elmer, Rad Conversion - 11/01/2018 7:23 PM PDT YANG RIDLEYXR CHEST 1 VIEW10/06/2015 | | 9:46 AM History: 30 years. Male. New central venous line. Acute pulmonary septic | | emboli. Technique: AP portable upright technique was performed at 0940 hours.Comparison: | | 10/06/15, at 0537 hours Findings: A new RIGHT internal jugular central venous dialysis | | catheter is visualized with its tip at the junction of superior vena cava and RIGHT | | atrium. Persistent RIGHT brachial PICC line is noted with its tip in the proximal RIGHT | | atrium. No visible RIGHT pneumothorax. Irregular pulmonary nodules are again | | visualized throughout both lung abrry, representing known pulmonary septic emboli. The | | hemidiaphragms are obscured, due to small bilateral pleural effusions. The cardiac | | volume is normal. Generalized alveolar infiltrate visualized in the LEFT lung at 0537 | | hours today has partially cleared. IMPRESSION: 1. Satisfactory RIGHT internal jugular | | dialysis catheter placement.2. Improving alveolar infiltrate in the LEFT lung.3. | | Persistent multiple bilateral septic emboli.4. Persistent bilateral small pleural | | effusions. | |Generalized alveolar infiltrate visualized in the LEFT lung at 0537 hours today has partial ly cleared. | | | |IMPRESSION: | |1. Satisfactory RIGHT internal jugular dialysis catheter placement. | |2. Improving alveolar infiltrate in the LEFT lung. | |3. Persistent multiple bilateral septic emboli. | |4. Persistent bilateral small pleural effusions. | | | | | + + Sodium (10/06/2015 8:19 AM PDT) + + + + + + | Component | Value | Ref Range | Performed | Pathologist | | | | | At | Signature | + + + + + + | Na | 121 (L)Comment: Testing | 135 - 145 | EXTERNAL | | | | performed at [facility];888 | mmol/L | LAB | | | | [address];[place], [place] | | | | | | [address] | | | | + + + + + + + + | Specimen | + + | Blood specimen | | (specimen) | + + + +---------+ + + | Performing | Address | City/State/Zipcode | Phone Number | | Organization | | | | + +---------+ + + | EXTERNAL LAB | | | | + +---------+ + + XR Chest 1 Vw (10/06/2015 5:54 AM PDT) + + | Specimen | + + | | + + + + + | Impressions | Performed At | + + + | 1. Increasing alveolar infiltrates in the LEFT lung and the RIGHT | | | lung base, suggesting pulmonary edema or pneumonia. 2. Small LEFT | | | pleural effusion. Possible small RIGHT pleural effusion. 3. | | | Persistent ill-defined cavitary nodules in both lung barry, | | | unchanged. 4. Incomplete inspiratory effort. Electronically | | | signed by Dipak Aguilar MD on 10/06/2015 8:27 AM | | + + + + + + | Narrative | Performed At | + + + | YANG RIDLEY XR CHEST 1 VIEW 10/06/2015 5:54 AM History: 30 | | | years. Male. Follow-up for septic pulmonary emboli and respiratory | | | failure. Technique: AP portable semierect technique was performed | | | at 0517 hours. Comparison: 10/05/15 Findings: Persistent | | | ill-defined nodular densities are visualized throughout both lung | | | barry, with central lucency and some, indicating cavitated septic | | | emboli, relatively unchanged. Generalized alveolar infiltrate is | | | visualized throughout the LEFT lung field, as well as the RIGHT lung | | | base, obscuring both hemidiaphragms and the heart borders, suggesting | | | small pleural effusions and/or pulmonary edema. Pleural density | | | measures approximately 10 mm in the peripheral mid LEFT chest | | | cavity. The cardiac volume is normal. A RIGHT brachial PICC line | | | is in good position. | | + + + + + | Procedure Note | + + | Elmer, Rad Conversion - 11/01/2018 7:23 PM PDT YANG CLARKE CHEST 1 VIEW10/06/2015 | | 5:54 AM History: 30 years. Male. Follow-up for septic pulmonary emboli and | | respiratory failure. Technique: AP portable semierect technique was performed at 0517 | | hours.Comparison: 10/05/15 Findings: Persistent ill-defined nodular densities are | | visualized throughout both lung barry, with central lucency and some, indicating | | cavitated septic emboli, relatively unchanged. Generalized alveolar infiltrate is | | visualized throughout the LEFT lung field, as well as the RIGHT lung base, obscuring | | both hemidiaphragms and the heart borders, suggesting small pleural effusions and/or | | pulmonary edema. Pleural density measures approximately 10 mm in the peripheral mid | | LEFT chest cavity. The cardiac volume is normal. A RIGHT brachial PICC line is in good | | position. IMPRESSION: 1. Increasing alveolar infiltrates in the LEFT lung and the | | RIGHT lung base, suggesting pulmonary edema or pneumonia.2. Small LEFT pleural | | effusion. Possible small RIGHT pleural effusion.3. Persistent ill-defined cavitary | | nodules in both lung barry, unchanged.4. Incomplete inspiratory effort. Electronically | | signed by Dipak Aguilar MD on 10/06/2015 8:27 AM | | | |IMPRESSION: | |1. Increasing alveolar infiltrates in the LEFT lung and the RIGHT lung base, suggesting p ulmonary edema or pneumonia. | |2. Small LEFT pleural effusion. Possible small RIGHT pleural effusion. | |3. Persistent ill-defined cavitary nodules in both lung barry, unchanged. | |4. Incomplete inspiratory effort. | | | | | + + Culture, Body Fluid, Sterile, Smear, with Anaerobes (10/06/2015 4:56 AM PDT) + + | Specimen | + + | Body fluid sample | | (specimen) | + + + + + | Narrative | Performed At | + + + | Specimen Description PLEURAL FLUID GRAM STAIN | EXTERNAL LAB | | 2+ | | | WBC'S SEEN | | | NO EPITHELIAL CELLS SEEN | | | NO ORGANISMS SEEN CULTURE | | | NO GROWTH 4 DAYS | | + + + + +---------+ + + | Performing | Address | City/State/Zipcode | Phone Number | | Organization | | | | + +---------+ + + | EXTERNAL LAB | | | | + +---------+ + + Cholesterol, Body Fluid (10/06/2015 4:48 AM PDT) + + | Specimen | + + | Body fluid sample | | (specimen) | + + + + + | Narrative | Performed At | + + + | FLUID CHOLESTEROL <50 This is | EXTERNAL LAB | | not a manufacturing maintenance manager validated sample type for this method. No reference | | | ranges have been established. Testing performed at [facility], [address] | | | [place] [address] | | + + + + +---------+ + + | Performing | Address | City/State/Zipcode | Phone Number | | Organization | | | | + +---------+ + + | EXTERNAL LAB | | | | + +---------+ + + Cell Count, Body Fluid (10/06/2015 4:48 AM PDT) + + | Specimen | + + | Body fluid sample | | (specimen) | + + + + + | Narrative | Performed At | + + + | FLUID TYPE PLEURAL FLUID | EXTERNAL LAB | | Testing performed at [facility];[address] [place] [address];[place] [address] COLOR | | | RED Testing | | | performed at [facility];[address] [place] [address];[place] [address] APPEARANCE | | | SLIGHTLY CLOUDY Testing performed at | | | [facility];[address] [place] [address];[place] [address] RBC'S | | | [id number] Testing performed at [facility];[address] [place] [address] | | | Bl;[place] [address] TOTAL NUCLEATED CELLS 3154 | | | Testing performed at [facility];[address] [place] [address];[place] [address] | | | NEUTROPHILS 77 Testing | | | performed at [facility];[address] [facility];[place] [address] LYMPHOCYTES | | | 21 Testing performed at | | | [facility];[address] [place] [address];[place] [address] MONOCYTES/MACROPHAGES | | | 2 Testing performed at [facility];[address] [place] [address] | | | Bl;[place] [address] CELLS COUNTED | | | 100 Testing performed at [facility];[address] [place] [address];[place], [place] | | | [address] | | + + + + +---------+ + + | Performing | Address | City/State/Zipcode | Phone Number | | Organization | | | | + +---------+ + + | EXTERNAL LAB | | | | + +---------+ + + External Lab: Protein, Total (10/06/2015 4:48 AM PDT) + + | Specimen | + + | Body fluid sample | | (specimen) | + + + + + | Narrative | Performed At | + + + | FLUID TOTAL PROTEIN 3.4 This is | EXTERNAL LAB | | not a manufacturing maintenance manager validated sample type for this method. No reference | | | ranges have been established. Testing performed at [facility], [address] | | | [place] [address] FLUID TP SOURCE | | | PLEURAL FLUID Testing performed at [facility];[address] | | | [facility];[place] [address] | | + + + + +---------+ + + | Performing | Address | City/State/Zipcode | Phone Number | | Organization | | | | + +---------+ + + | EXTERNAL LAB | | | | + +---------+ + + Lactate Dehydrogenase, Body Fluid (10/06/2015 4:48 AM PDT) + + | Specimen | + + | Body fluid sample | | (specimen) | + + + + + | Narrative | Performed At | + + + | FLUID LDH 788 This | EXTERNAL LAB | | is not a manufacturing maintenance manager validated sample type for this method. No | | | reference ranges have been established. Testing performed at [facility], | | | [address] [place] [address] | | + + + + +---------+ + + | Performing | Address | City/State/Zipcode | Phone Number | | Organization | | | | + +---------+ + + | EXTERNAL LAB | | | | + +---------+ + + Glucose, Body Fluid (10/06/2015 4:48 AM PDT) + + | Specimen | + + | Body fluid sample | | (specimen) | + + + + + | Narrative | Performed At | + + + | FLUID GLUCOSE 84 This | EXTERNAL LAB | | is not a manufacturing maintenance manager validated sample type for this method. No | | | reference ranges have been established. Testing performed at [facility], | | | [address] [place] [address] Glucose, Fluid Type | | | PLEURAL FLUID Testing performed at [facility];[address] | | | [facility];[place] [address] | | + + + + +---------+ + + | Performing | Address | City/State/Zipcode | Phone Number | | Organization | | | | + +---------+ + + | EXTERNAL LAB | | | | + +---------+ + + PH, Body Fluid (10/06/2015 4:48 AM PDT) + + | Specimen | + + | Body fluid sample | | (specimen) | + + + + + | Narrative | Performed At | + + + | FLUID PH 7.57 | EXTERNAL LAB | | Testing performed at [facility];[address] [facility];[place] [address] | | + + + + +---------+ + + | Performing | Address | City/State/Zipcode | Phone Number | | Organization | | | | + +---------+ + + | EXTERNAL LAB | | | | + +---------+ + + Protime INR (10/06/2015 4:03 AM PDT) + + + + + + | Component | Value | Ref Range | Performed | Pathologist | | | | | At | Signature | + + + + + + | INR | 1.6Comment: REFERENCE | | EXTERNAL | | | | RANGE:0.9 - 1.2 | | LAB | | | | NON-ANTICOAGULATED2.0 | | | | | | - 3.0 ALL OTHER | | | | | | THERAPEUTIC | | | | | | INDICATIONS2.5 - 3.5 | | | | | | MECHANICAL HEART VALVES, | | | | | | RECURRENT OR SYSTEMIC | | | | | | EMBOLISMTesting | | | | | | performed at [facility];[address] | | | | | [address];[place] | | | | | | [address] | | | | + + + + + + + + | Specimen | + + | Blood specimen | | (specimen) | + + + +---------+ + + | Performing | Address | City/State/Zipcode | Phone Number | | Organization | | | | + +---------+ + + | EXTERNAL LAB | | | | + +---------+ + + External Lab: CBC (10/06/2015 4:03 AM PDT) + + +---- + + + | Component | Value | Ref Range | Performed | Pathologist | | | | | At | Signature | + + +---- + + + | WBC | 20.97 (H)Comment: | 3.8 0 - 11.00 | EXTERNAL | | | | Testing performed at | K/u L | LAB | | | | [facility], [address] | | | | | | [place] | | | | | | [address] | | | | + + +---- + + + | Non- | 2.98 (L)Comment: Testing | 4.2 0 - 5.70 | EXTERNAL | | | Red Blood | performed at [facility], [address] | [address] | LAB | | | Cells | [address], | | | | | Counted | [place] [address] | | | | + + +---- + + + | Hemoglobin | 7.8 (L)Comment: Testing | 13. 2 - 17.0 | EXTERNAL | | | | performed at [facility], [address] | g/d L | LAB | | | | [address], | | | | | | [place] [address] | | | | + + +---- + + + | Hematocrit, | 23.8 (L)Comment: Testing | 39. 0 - 50.0 % | EXTERNAL | | | POC | performed at [facility], [address] | | LAB | | | | [address], | | | | | | [place] [address] | | | | + + +---- + + + | MCV | 79.9 (L)Comment: Testing | 80. 0 - 100.0 fl | EXTERNAL | | | | performed at [facility], [address] | | LAB | | | | [address], | | | | | | [place] [address] | | | | + + +---- + + + | MCH | 26.2 (L)Comment: Testing | 27. 0 - 34.0 pg | EXTERNAL | | | | performed at [facility], [address] | | LAB | | | | [address], | | | | | | [place] [address] | | | | + + +---- + + + | MCHC | 32.7Comment: Testing | 32. 0 - 35.5 | EXTERNAL | | | | performed at [facility], [address] | g/d L | LAB | | | | [address], | | | | | | [place] [address] | | | | + + +---- + + + | RDW-CV | 41.1Comment: Testing | 37 - 53 fl | EXTERNAL | | | | performed at [facility], [address] | | LAB | | | | [address], | | | | | | [place] [address] | | | | + + +---- + + + | Platelet | 118 (L)Comment: Testing | 150 - 400 K/uL | EXTERNAL | | | Count | performed at [facility], [address] | | LAB | | | Plasma | [address], | | | | | | [place] [address] | | | | + + +---- + + + | MPV | 8.9Comment: Testing | fl | EXTERNAL | | | | performed at [facility], [address] | | LAB | | | | [address], | | | | | | [place] [address] | | | | + + +---- + + + | Differentia | MANUALComment: Testing | | EXTERNAL | | | l Type | performed at [facility], [address] | | LAB | | | | [address], | | | | | | [place] [address] | | | | + + +---- + + + | Segmented | 91Comment: Testing | % | EXTERNAL | | | Neutrophils | performed at [facility], [address] | | LAB | | | Manual | [address], | | | | | | [place] [address] | | | | + + +---- + + + | % Bands | 4Comment: Testing | % | EXTERNAL | | | | performed at [facility], [address] | | LAB | | | | [address], | | | | | | [place] [address] | | | | + + +---- + + + | Lymphocytes | 1Comment: Testing | % | EXTERNAL | | | Manual | performed at [facility], [address] | | LAB | | | | [address], | | | | | | [place] [address] | | | | + + +---- + + + | Monocytes | 4Comment: Testing | % | EXTERNAL | | | Manual | performed at [facility], [address] | | LAB | | | | [address], | | | | | | [place] [address] | | | | + + +---- + + + | Absolute | 19.08 (H)Comment: | 1.9 0 - 7.40 | EXTERNAL | | | Neutrophils | Testing performed at | K/u L | LAB | | | | [facility], [address] [facility] | | | | | | [place] | | | | | | [address] | | | | + + +---- + + + | Bands | 0.84 (H)Comment: Testing | 0.0 0 - 0.20 | EXTERNAL | | | Manual | performed at [facility], [address] | K/[address] | LAB | | | | [address], | | | | | | [place] [address] | | | | + + +---- + + + | Absolute | 0.21 (L)Comment: Testing | 1.0 0 - 3.90 | EXTERNAL | | | Lymphocytes | performed at [facility], [address] | [address] | LAB | | | | [address], | | | | | | [place] [address] | | | | + + +---- + + + | Absolute | 0.84 (H)Comment: Testing | 0.0 0 - 0.80 | EXTERNAL | | | Monocytes | performed at [facility], [address] | K/[address] | LAB | | | | [address], | | | | | | [place] [address] | | | | + + +---- + + + | RBC | 1+Comment: | | EXTERNAL | | | Morphology | MICRO2+BURR2+TOXIC | | LAB | | | | GRANULATIONNORMAL PLT | | | | | | MORPHTesting performed | | | | | | at [facility], [address] | | | | | | [address], | | | | | | [place] [address] | | | | | |NORMAL PLT MORPH | | | | | |Testing performed at [facility], [address] [place] [address] | | | | | | | | | | + + +---- + + + + + | Specimen | + + | Blood specimen | | (specimen) | + + + +---------+ + + | Performing | Address | City/State/Zipcode | Phone Number | | Organization | | | | + +---------+ + + | EXTERNAL LAB | | | | + +---------+ + + Phosphorus (10/06/2015 4:03 AM PDT) + + + + + + | Component | Value | Ref Range | Performed | Pathologist | | | | | At | Signature | + + + + + + | PHOSPHORUS | 8.1 (H)Comment: SPECIMEN | 2.3 - 4.8 mg/dL | EXTERNAL | | | | SLIGHTLY | | LAB | | | | HEMOLYZEDTesting | | | | | | performed at [facility], [address] | | | | | | [address], | | | | | | [place] [address] | | | | + + + + + + + + | Specimen | + + | Blood specimen | | (specimen) | + + + +---------+ + + | Performing | Address | City/State/Zipcode | Phone Number | | Organization | | | | + +---------+ + + | EXTERNAL LAB | | | | + +---------+ + + Magnesium (10/06/2015 4:03 AM PDT) + + + + + + | Component | Value | Ref Range | Performed | Pathologist | | | | | At | Signature | + + + + + + | Magnesium | 3.1 (H)Comment: SPECIMEN | 1.7 - 2.4 mg/dL | EXTERNAL | | | | SLIGHTLY | | LAB | | | | HEMOLYZEDTesting | | | | | | performed at [facility], [address] | | | | | | [address], | | | | | | [place] [address] | | | | + + + + + + + + | Specimen | + + | Blood specimen | | (specimen) | + + + +---------+ + + | Performing | Address | City/State/Zipcode | Phone Number | | Organization | | | | + +---------+ + + | EXTERNAL LAB | | | | + +---------+ + + Hepatic Function Panel (10/06/2015 4:03 AM PDT) + + + + + + | Component | Value | Ref Range | Performed | Pathologist | | | | | At | Signature | + + + + + + | Protein, | 4.5 (L)Comment: Testing | 6.3 - 8.2 g/dL | EXTERNAL | | | Total | performed at [facility], [address] | | LAB | | | | [address], | | | | | | [place] [address] | | | | + + + + + + | Albumin | 1.6 (L)Comment: Testing | 3.6 - 5.0 g/dL | EXTERNAL | | | | performed at [facility], [address] | | LAB | | | | [address], | | | | | | [place] [address] | | | | + + + + + + | Bilirubin | 9.0 (H)Comment: SPECIMEN | 0.1 - 1.5 mg/dL | EXTERNAL | | | Total | SLIGHTLY | | LAB | | | | HEMOLYZEDICTERIC | | | | | | SPECIMENTesting | | | | | | performed at [facility], [address] | | | [address], | | | | | | [place] [address] | | | | + + + + + + | Bilirubin | 5.4 (H)Comment: SPECIMEN | 0.0 - 0.3 mg/dL | EXTERNAL | | | Direct | SLIGHTLY | | LAB | | | | HEMOLYZEDTesting | | | | | | performed at [facility], [address] | | | | | | [address], | | | | | | [place] [address] | | | | + + + + + + | ALP, | 55Comment: Testing | 35 - 115 U/L | EXTERNAL | | | External | performed at [facility], [address] | | LAB | | | | [address], | | | | | | [place] [address] | | | | + + + + + + | AST | 58 (H)Comment: SPECIMEN | 10 - 45 U/L | EXTERNAL | | | | SLIGHTLY | | LAB | | | | HEMOLYZEDTesting | | | | | | performed at [facility], [address] | | | | | | [address], | | | | | | [place] [address] | | | | + + + + + + | ALT | 47Comment: SPECIMEN | 10 - 65 U/L | EXTERNAL | | | | SLIGHTLY | | LAB | | | | HEMOLYZEDTesting | | | | | | performed at [facility], [address] | | | | | | [address], | | | | | | [place] [address] | | | | + + + + + + + + | Specimen | + + | | + + + +---------+ + + | Performing | Address | City/State/Zipcode | Phone Number | | Organization | | | | + +---------+ + + | EXTERNAL LAB | | | | + +---------+ + + Basic Metabolic Panel (10/06/2015 4:03 AM PDT) + + + + + + | Component | Value | Ref Range | Performed | Pathologist | | | | | At | Signature | + + + + + + | Na | 122 (L)Comment: Testing | 135 - 145 | EXTERNAL | | | | performed at [facility], [address] | mmol/L | LAB | | | | [address], | | | | | | [place] [address] | | | | + + + + + + | K | 5.5 (H)Comment: SPECIMEN | 3.5 - 4.9 | EXTERNAL | | | | SLIGHTLY | mmol/L | LAB | | | | HEMOLYZEDTesting | | | | | | performed at [facility], [address] | | | | | | [address], | | | | | | [place] [address] | | | | + + + + + + | Cl | 89 (L)Comment: Testing | 99 - 109 mmol/L | EXTERNAL | | | | performed at [facility], [address] | | LAB | | | | [address], | | | | | | [place] [address] | | | | + + + + + + | CO2 | 18 (L)Comment: Testing | 23 - 32 mmol/L | EXTERNAL | | | | performed at [facility], [address] | | LAB | | | | [address], | | | | | | [place] [address] | | | | + + + + + + | Anion Gap | 21 (H)Comment: Testing | 5 - 20 mmol/L | EXTERNAL | | | | performed at [facility], [address] | | LAB | | | | [address], | | | | | | [place] [address] | | | | + + + + + + | Glucose, | 102 (H)Comment: SPECIMEN | 65 - 99 mg/dL | EXTERNAL | | | Fasting | SLIGHTLY | | LAB | | | | HEMOLYZEDTesting | | | | | | performed at [facility], [address] | | | | | | [address], | | | | | | [place] [address] | | | | + + + + + + | BUN | 115 (H)Comment: Testing | 8 - 25 mg/dL | EXTERNAL | | | | performed at [facility], [address] | | LAB | | | | [address], | | | | | | [place] [address] | | | | + + + + + + | Creatinine | 3.9 (H)Comment: SPECIMEN | 0.70 - 1.30 | EXTERNAL | | | | SLIGHTLY | mg/dL | LAB | | | | HEMOLYZEDTesting | | | | | | performed at [facility], [address] | | | | | | [address], | | | | | | [place] [address] | | | | + + + + + + | BUN/Creatin | 29Comment: Testing | | EXTERNAL | | | ine Ratio | performed at [facility], [address] | | LAB | | | | [address], | | | | | | [place] [address] | | | | + + + + + + | Calcium | 6.4 (L)Comment: Testing | 8.5 - 10.5 | EXTERNAL | | | | performed at [facility], [address] | mg/dL | LAB | | | | [address], | | | | | | [place] [address] | | | | + + + + + + | Estimated | 19 (L)Comment: GFR <60: | mL/min/1.73m2 | EXTERNAL | | | GFR | CHRONIC KIDNEY DISEASE, | | LAB | | | | IF FOUND OVER A 3 MONTH | | | | | | PERIOD.GFR <15: KIDNEY | | | | | | FAILURE.FOR | | | | | | AMERICANS, MULTIPLY THE | | | | | | CALCULATED GFR BY | | | | | | 1.210.Testing performed | | | | | | at [facility], [address] | | | | | | [address], | | | | | | [place] [address] | | | | + + + + + + + + | Specimen | + + | Blood specimen | | (specimen) | + + + +---------+ + + | Performing | Address | City/State/Zipcode | Phone Number | | Organization | | | | + +---------+ + + | EXTERNAL LAB | | | | + +---------+ + + Misc Lab Referral (10/06/2015 2:17 AM PDT) + + + + + + | Component | Value | Ref Range | Performed | Pathologist | | | | | At | Signature | + + + + + + | TEST | OSMURComment: Testing | | EXTERNAL | | | INFORMATION | performed at [facility], [address] | | LAB | | | | [address], | | | | | | [place] [address] | | | | + + + + + + | Miscellaneo | SEE BELOWComment: | | EXTERNAL | | | us Lab Test | OSMOLALITY, URINE | | LAB | | | | RANDOMTEST | | | | | | RESULT/FLAG | | | | | | | | | | | | REFERENCE_RANGEOSMOLAL | | | | | | ITY, URINE RANDOM | | | | | | 266 | | | | | | MOSM/KG | | | | | | 50-1200Testing | | | | | | performed at [facility] | | | | | | [facility], | | | | | | [address] | | | | | | [address] | | | | + + + + + + + + | Specimen | + + | | + + + +---------+ + + | Performing | Address | City/State/Zipcode | Phone Number | | Organization | | | | + +---------+ + + | EXTERNAL LAB | | | | + +---------+ + + Sodium, Urine, Random (10/06/2015 2:17 AM PDT) + + + + + + | Component | Value | Ref Range | Performed | Pathologist | | | | | At | Signature | + + + + + + | Sodium, | 62 (L)Comment: Testing | 90 - 104 mmol/L | EXTERNAL | | | Urine | performed at [facility], [address] | | LAB | | | Random | [address], | | | | | | [place] [address] | | | | + + + + + + + + | Specimen | + + | Urine specimen | | (specimen) | + + + +---------+ + + | Performing | Address | City/State/Zipcode | Phone Number | | Organization | | | | + +---------+ + + | EXTERNAL LAB | | | | + +---------+ + + Osmolality, Urine (10/06/2015 2:17 AM PDT) + + + + + + | Component | Value | Ref Range | Performed | Pathologist | | | | | At | Signature | + + + + + + | OSMO URINE | Testing performed by | 50 - 1,200 | EXTERNAL | | | | [facility], [address], | mOsm/kg | LAB | | | | [address] [place] [id number]: | | | | | | Testing performed at | | | | | | [facility], [address] | | | | | | [place] | | | | | | [address] | | | | + + + + + + + + | Specimen | + + | Urine specimen | | (specimen) | + + + +---------+ + + | Performing | Address | City/State/Zipcode | Phone Number | | Organization | | | | + +---------+ + + | EXTERNAL LAB | | | | + +---------+ + + Chloride, Urine, Random (10/06/2015 2:17 AM PDT) + + + + + + | Component | Value | Ref Range | Performed | Pathologist | | | | | At | Signature | + + + + + + | Chloride | 77Comment: Testing | mmol/L | EXTERNAL | | | Urine | performed at [facility], [address] | | LAB | | | | [address], | | | | | | [place] [address] | | | | + + + + + + + + | Specimen | + + | Urine specimen | | (specimen) | + + + +---------+ + + | Performing | Address | City/State/Zipcode | Phone Number | | Organization | | | | + +---------+ + + | EXTERNAL LAB | | | | + +---------+ + + [facility] Lab Referral (10/05/2015 10:59 PM PDT) + + + + + + | Component | Value | Ref Range | Performed | Pathologist | | | | | At | Signature | + + + + + + | TEST | OSMComment: Testing | | EXTERNAL | | | INFORMATION | performed at [facility], [address] | | LAB | | | | [address], | | | | | | [place] [address] | | | | + + + + + + | Miscellaneo | OSMOLALITYComment: TEST | | EXTERNAL | | | us Lab Test | | | LAB | | | | RESULT/FLAG | | | | | | | | | | | | REFERENCE_RANGEOSMOLAL | | | | | | ITY 273 | | | | | | L MOSM/KG | | | | | | 275-295Testing performed | | | | | | at [facility] | | | | | | Center, [address], | | | | | | [place] [address] | | | | + + + + + + + + | Specimen | + + | | + + + +---------+ + + | Performing | Address | City/State/Zipcode | Phone Number | | Organization | | | | + +---------+ + + | EXTERNAL LAB | | | | + +---------+ + + Sodium (10/05/2015 10:59 PM PDT) + + + + + + | Component | Value | Ref Range | Performed | Pathologist | | | | | At | Signature | + + + + + + | Na | 119 (LL)Comment: NA | 135 - 145 | EXTERNAL | | | | PHONED TO LYNN HAM AT | mmol/L | LAB | | | | 0112 BY LJREAD BACK | | | | | | RESULTS VERIFIEDTesting | | | | | | performed at [facility];[address] | | | [address];[place], [place] | | | | | | [address] | | | | + + + + + + + + | Specimen | + + | Blood specimen | | (specimen) | + + + +---------+ + + | Performing | Address | City/State/Zipcode | Phone Number | | Organization | | | | + +---------+ + + | EXTERNAL LAB | | | | + +---------+ + + Osmolality, Serum (10/05/2015 10:59 PM PDT) + + + + + + | Component | Value | Ref Range | Performed | Pathologist | | | | | At | Signature | + + + + + + | Osmolality, | Testing performed by | 275 - 295 | EXTERNAL | | | Serum | [facility], [address], | mOsm/kg | LAB | | | | [place] [id number]: | | | | | | Testing performed at | | | | | | [facility], [address] [facility] | | | | | | [place], [place] | | | | | | [address] | | | | + + + + + + + + | Specimen | + + | Blood specimen | | (specimen) | + + + +---------+ + + | Performing | Address | City/State/Zipcode | Phone Number | | Organization | | | | + +---------+ + + | EXTERNAL LAB | | | | + +---------+ + + Lactate Dehydrogenase (10/05/2015 10:59 PM PDT) + + + + + + | Component | Value | Ref Range | Performed | Pathologist | | | | | At | Signature | + + + + + + | LDH TOTAL | 286 (H)Comment: SLT | 115 - 225 U/L | EXTERNAL | | | | HEMOLYSISTesting | | LAB | | | | performed at [facility];[address] | | | | | | [address];[place] | | | | | | [address] | | | | + + + + + + + + | Specimen | + + | Blood specimen | | (specimen) | + + + +---------+ + + | Performing | Address | City/State/Zipcode | Phone Number | | Organization | | | | + +---------+ + + | EXTERNAL LAB | | | | + +---------+ + + CT Chest Abdomen Pelvis wo Contrast (10/05/2015 6:57 PM PDT) + + | Specimen | + + | | + + + + + | Impressions | Performed At | + + + | 1. Bilateral cavitary lesions of the lungs consistent with | | | septic emboli. 2. Bilateral moderate sized pleural effusions with | | | adjacent basilar atelectasis. 3. Diffuse ascites. 4. Dilated and | | | thickened small bowel loops of the central abdomen, may represent | | | obstruction. Nonspecific enteritis is also possible including | | | inflammatory, infectious or ischemic etiologies. Electronically | | | signed by Shawn Gilmore MD on 10/05/2015 7:45 PM | | + + + + + + | Narrative | Performed At | + + + | [facility] [address] CHEST ABDOMEN PELVIS WO | | | CONTRAST 10/05/2015 6:57 PM HISTORY: Sepsis. 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 COMPARISON: October 01, 2015 TECHNIQUE: 5-mm axial | | | images were acquired through the chest, abdomen and pelvis. No | | | intravenous contrast was used. Automated exposure control done to | | | minimize dose. Oral Contrast: Readi-Cat FINDINGS: CHEST: | | | Thyroid gland is normal. No thyroid nodules. No supraclavicular | | | adenopathy. No axillary adenopathy. Bilateral moderate sized | | | pleural effusions. There is adjacent basilar compressive atelectasis. | | | Bilateral cavitary lesions of the lungs consistent with septic | | | emboli. Patchy groundglass opacity at the right lung base (), also | | | likely infection. ABDOMEN/PELVIS Liver, spleen, adrenal | | | glands, gallbladder, pancreas, stomach and duodenum are normal. | | | Patulous distal esophagus. No colonic wall thickening. No colonic | | | dilation. Dilated central small bowel loops with thickened hernandez | | | () (400 B/23) suggesting enteritis, however evaluation is limited | | | on this noncontrast exam. Ascites throughout the abdomen. Bladder | | | is decompressed with a Albarran catheter. No inguinal, pelvic or | | | retroperitoneal adenopathy. Kidneys are normal with no | | | hydronephrosis or hydroureter. No nephroureterolithiasis. Adrenal | | | glands are normal. Bone island of the left femoral head. No acute | | | osseous abnormality. Edema of the bilateral subcutaneous soft | | | tissues at the flanks. | | + + + + + | Procedure Note | + + | Elmer, Rad Conversion - 11/01/2018 7:23 PM PDT YANG ELDER1985 30 years MaleCT | | CHEST ABDOMEN PELVIS WO CONTRAST10/05/2015 6:57 PM HISTORY: Sepsis. Infectious | | endocarditis. COMPARISON: October 01, 2015 TECHNIQUE:5-mm axial images were acquired | | through the chest, abdomen and pelvis. No intravenous contrast was used. Automated | | exposure control done to minimize dose.Oral Contrast: Readi-Cat FINDINGS: CHEST: Thyroid | | gland is normal. No thyroid nodules. No supraclavicular adenopathy. No axillary | | adenopathy. Bilateral moderate sized pleural effusions. There is adjacent basilar | | compressive atelectasis. Bilateral cavitary lesions of the lungs consistent with septic | | emboli. Patchy groundglass opacity at the right lung base (2/31), also likely infection. | | ABDOMEN/PELVIS Liver, spleen, adrenal glands, gallbladder, pancreas, stomach and | | duodenum are normal. Patulous distal esophagus. No colonic wall thickening. No colonic | | dilation. Dilated central small bowel loops with thickened hernandez (2/86) (400 B/23) | | suggesting enteritis, however evaluation is limited on this noncontrast exam. Ascites | | throughout the abdomen. Bladder is decompressed with a Albarran catheter. No inguinal, | | pelvic or retroperitoneal adenopathy. Kidneys are normal with no hydronephrosis or | | hydroureter. No nephroureterolithiasis. Adrenal glands are normal. Bone island of the | | left femoral head. No acute osseous abnormality. Edema of the bilateral subcutaneous | | soft tissues at the flanks. IMPRESSION: 1. Bilateral cavitary lesions of the lungs | | consistent with septic emboli.2. Bilateral moderate sized pleural effusions with | | adjacent basilar atelectasis.3. Diffuse ascites.4. Dilated and thickened small bowel | | loops of the central abdomen, may represent obstruction. Nonspecific enteritis is also | | possible including inflammatory, infectious or ischemic etiologies. Electronically | | signed by Shawn Gilmore MD on 10/05/2015 7:45 PM | | | |ABDOMEN/PELVIS | | | |Liver, spleen, adrenal glands, gallbladder, pancreas, stomach and duodenum are normal. Patu lous distal esophagus. | | | |No colonic wall thickening. No colonic dilation. | | | |Dilated central small bowel loops with thickened hernandez (/86) (400 B/23) suggesting enterit is, however evaluation is limited on this noncontrast exam. | | | |Ascites throughout the abdomen. Bladder is decompressed with a Albarran catheter. | | | |No inguinal, pelvic or retroperitoneal adenopathy. | | | |Kidneys are normal with no hydronephrosis or hydroureter. No nephroureterolithiasis. Adrena l glands are normal. | | | |Bone island of the left femoral head. No acute osseous abnormality. | | | |Edema of the bilateral subcutaneous soft tissues at the flanks. | | | | | |IMPRESSION: | | | |1. Bilateral cavitary lesions of the lungs consistent with septic emboli. | |2. Bilateral moderate sized pleural effusions with adjacent basilar atelectasis. | |3. Diffuse ascites. | |4. Dilated and thickened small bowel loops of the central abdomen, may represent obstructi on. Nonspecific enteritis is also possible including inflammatory, infectious or ischemic et iologies. | | | | | + + CT Head wo Contrast (10/05/2015 6:57 PM PDT) + + | Specimen | + + | | + + + + + | Impressions | Performed At | + + + | 1. No acute intracranial hemorrhage, mass or infarct. | | | | | + + + + + + | Narrative | Performed At | + + + | HISTORY: Altered mental status. TECHNIQUE: 5-mm axial | | | noncontrast images were acquired from the foramen magnum through the | | | cranial vertex. Automated exposure control done to minimize dose. | | | COMPARISON: None. FINDINGS: No acute intracranial hemorrhage, | | | mass or infarct Basal cisterns are patent. The ventricles and | | | sulci are normal in size and configuration Orbits are normal. | | | Mastoids and paranasal sinuses are clear. | | + + + + + | Procedure Note | + + | Elmer, Rad Conversion - 11/01/2018 7:23 PM PDT HISTORY:Altered mental status. | | TECHNIQUE:5-mm axial noncontrast images were acquired from the foramen magnum through | | the cranial vertex. Automated exposure control done to minimize dose. COMPARISON:None. | | FINDINGS: No acute intracranial hemorrhage, mass or infarct Basal cisterns are patent. | | The ventricles and sulci are normal in size and configuration Orbits are normal. | | Mastoids and paranasal sinuses are clear. IMPRESSION: 1. No acute intracranial | | hemorrhage, mass or infarct. | | PM | | | |FINDINGS: | | | |No acute intracranial hemorrhage, mass or infarct | | | |Basal cisterns are patent. The ventricles and sulci are normal in size and configuration | | | |Orbits are normal. | | | |Mastoids and paranasal sinuses are clear. | | | | | |IMPRESSION: | | | |1. No acute intracranial hemorrhage, mass or infarct. | | | | | + + Sodium (10/05/2015 5:20 PM PDT) + + + + + + | Component | Value | Ref Range | Performed | Pathologist | | | | | At | Signature | + + + + + + | Na | 118 (LL)Comment: CALLED | 135 - 145 | EXTERNAL | | | | TO DR SY BY JR AT | mmol/L | LAB | | | | 1809, READ BACKTesting | | | | | | performed at [facility];[address] | | | | | | [address];[place], [place] | | | | | | [address] | | | | + + + + + + + + | Specimen | + + | Blood specimen | | (specimen) | + + + +---------+ + + | Performing | Address | City/State/Zipcode | Phone Number | | Organization | | | | + +---------+ + + | EXTERNAL LAB | | | | + +---------+ + + Lactic Acid (10/05/2015 5:20 PM PDT) + + + + + + | Component | Value | Ref Range | Performed | Pathologist | | | | | At | Signature | + + + + + + | Lactate | 1.3Comment: Testing | 0.4 - 2.0 | EXTERNAL | | | | performed at [facility];[address] | mmol/L | LAB | | | | [address];[place] | | | | | | [address] | | | | + + + + + + + + | Specimen | + + | Blood specimen | | (specimen) | + + + +---------+ + + | Performing | Address | City/State/Zipcode | Phone Number | | Organization | | | | + +---------+ + + | EXTERNAL LAB | | | | + +---------+ + + Protime INR (10/05/2015 12:38 PM PDT) + + + + + + | Component | Value | Ref Range | Performed | Pathologist | | | | | At | Signature | + + + + + + | INR | 1.5Comment: REFERENCE | | EXTERNAL | | | | RANGE:0.9 - 1.2 | | LAB | | | | NON-ANTICOAGULATED2.0 | | | | | | - 3.0 ALL OTHER | | | | | | THERAPEUTIC | | | | | | INDICATIONS2.5 - 3.5 | | | | | | MECHANICAL HEART VALVES, | | | | | | RECURRENT OR SYSTEMIC | | | | | | EMBOLISMTesting | | | | | | performed at [facility];[address] | | | | | | [address];[place], [place] | | | | | | [address] | | | | + + + + + + + + | Specimen | + + | | + + + +---------+ + + | Performing | Address | City/State/Zipcode | Phone Number | | Organization | | | | + +---------+ + + | EXTERNAL LAB | | | | + +---------+ + + Sodium (10/05/2015 12:38 PM PDT) + + + + + + | Component | Value | Ref Range | Performed | Pathologist | | | | | At | Signature | + + + + + + | Na | 117 (LL)Comment: CALLED | 135 - 145 | EXTERNAL | | | | NURSING UNITRESULT READ | mmol/L | LAB | | | | BACK BY:CAROLYN/RAHEEM Valles AT | | | | | | 13:20, ON 10/05/15, BY | | | | | | MYVTesting performed at | | | | | | [facility];[address];[place] [address] | | | | + + + + + + + + | Specimen | + + | Blood specimen | | (specimen) | + + + +---------+ + + | Performing | Address | City/State/Zipcode | Phone Number | | Organization | | | | + +---------+ + + | EXTERNAL LAB | | | | + +---------+ + + Uric Acid (10/05/2015 11:05 AM PDT) + + + + + + | Component | Value | Ref Range | Performed | Pathologist | | | | | At | Signature | + + + + + + | Uric Acid | 11.4 (H)Comment: Testing | 3.2 - 8.6 mg/dL | EXTERNAL | | | | performed at [facility];[address] | | LAB | | | | [address];[place] | | | | | | [address] | | | | + + + + + + + + | Specimen | + + | Blood specimen | | (specimen) | + + + +---------+ + + | Performing | Address | City/State/Zipcode | Phone Number | | Organization | | | | + +---------+ + + | EXTERNAL LAB | | | | + +---------+ + + XR Chest 1 Vw (10/05/2015 10:10 AM PDT) + + | Specimen | + + | | + + + + + | Impressions | Performed At | + + + | 1. Evolving multiple pulmonary septic emboli, with thinning hernandez | | | and gaseous content. 2. Progressive, small bilateral pleural | | | effusions with incomplete inspiratory effort. 3. Residual RIGHT | | | PICC line. Electronically signed by Dipak Aguilar MD on | | | 10/05/2015 11:39 AM | | + + + + + + | Narrative | Performed At | + + + | YANG RIDLEY XR CHEST 1 VIEW 10/05/2015 10:10 AM History: 30 | | | years. Male. Follow-up for numerous pulmonary septic emboli | | | visualized on CT of 10/01/15. Technique: AP portable upright | | | technique was performed at 0953 hours. Comparison: 10/02/15 | | | Findings: Previous endotracheal, nasogastric, and LEFT internal | | | jugular catheters have been removed. A peripherally inserted RIGHT | | | brachial central venous line is visualized with its tip at the | | | junction of the superior vena cava and RIGHT atrium. Irregular | | | ill-defined nodules are again visualized throughout both lungs. | | | Several of the nodules in the mid and upper RIGHT lung show thinning | | | hernandez, with gas content. Other nodules in the lower lungs | | | bilaterally remain uniformly water density. Small bilateral | | | pleural effusions have increased. Mild bilateral lower lobe | | | atelectasis is present. Inspiratory effort is suboptimal. The | | | cardiac volume, mediastinum and thoracic aorta are normal. The | | | pulmonary vasculature is normal. | | + + + + + | Procedure Note | + + | Elmer, Rad Conversion - 11/01/2018 7:23 PM PDT YANG RIDLEYXR CHEST 1 VIEW10/05/2015 | | 10:10 AM History: 30 years. Male. Follow-up for numerous pulmonary septic emboli | | visualized on CT of 10/01/15. Technique: AP portable upright technique was performed at | | 0953 hours.Comparison: 10/02/15 Findings: Previous endotracheal, nasogastric, and LEFT | | internal jugular catheters have been removed. A peripherally inserted RIGHT brachial | | central venous line is visualized with its tip at the junction of the superior vena cava | | and RIGHT atrium. Irregular ill-defined nodules are again visualized throughout both | | lungs. Several of the nodules in the mid and upper RIGHT lung show thinning hernandez, with | | gas content. Other nodules in the lower lungs bilaterally remain uniformly water | | density. Small bilateral pleural effusions have increased. Mild bilateral lower lobe | | atelectasis is present. Inspiratory effort is suboptimal. The cardiac volume, | | mediastinum and thoracic aorta are normal. The pulmonary vasculature is normal. | | IMPRESSION: 1. Evolving multiple pulmonary septic emboli, with thinning hernandez and | | gaseous content.2. Progressive, small bilateral pleural effusions with incomplete | | inspiratory effort.3. Residual RIGHT PICC line. | | | |IMPRESSION: | |1. Evolving multiple pulmonary septic emboli, with thinning hernandez and gaseous content. | |2. Progressive, small bilateral pleural effusions with incomplete inspiratory effort. | |3. Residual RIGHT PICC line. | | | | | + + Protime INR (10/05/2015 4:19 AM PDT) + + + + + + | Component | Value | Ref Range | Performed | Pathologist | | | | | At | Signature | + + + + + + | INR | NO CLOT DETECTEDComment: | | EXTERNAL | | | | REFERENCE RANGE:0.9 - | | LAB | | | | 1.2 | | | | | | NON-ANTICOAGULATED2.0 | | | | | | - 3.0 ALL OTHER | | | | | | THERAPEUTIC | | | | | | INDICATIONS2.5 - 3.5 | | | | | | MECHANICAL HEART VALVES, | | | | | | RECURRENT OR SYSTEMIC | | | | | | EMBOLISMTesting | | | | | | performed at [facility] | | | | | | [address];[place], [place] | | | | | | [address] | | | | + + + + + + + + | Specimen | + + | Blood specimen | | (specimen) | + + + +---------+ + + | Performing | Address | City/State/Zipcode | Phone Number | | Organization | | | | + +---------+ + + | EXTERNAL LAB | | | | + +---------+ + + External Lab: CBC (10/05/2015 4:19 AM PDT) + + + + + + | Component | Value | Ref Range | Performed | Pathologist | | | | | At | Signature | + + + + + + | WBC | 31.87 (HH)Comment: | 3.80 - 11.00 | EXTERNAL | | | | RESULT READ BACK BY: | Peter/Khushbu | LAB | | | | LANCE RN 3OP AT 0534 | | | | | | ON 10/05/2015 TH Testing | | | | | | performed at [facility], [address] | | | | | [address], | | | | | | [place] [address] | | | | + + + + + + | Non- | 3.99 (L)Comment: Testing | 4.20 - 5.70 | EXTERNAL | | | Red Blood | performed at [facility], [address] | M/uL | LAB | | | Cells | [address], | | | | | Counted | [place] [address] | | | | + + + + + + | Hemoglobin | 10.6 (L)Comment: Testing | 13.2 - 17.0 | EXTERNAL | | | | performed at [facility], [address] | g/dL | LAB | | | | [address], | | | | | | [place] [address] | | | | + + + + + + | Hematocrit, | 32.3 (L)Comment: Testing | 39.0 - 50.0 % | EXTERNAL | | | POC | performed at [facility], [address] | | LAB | | | | [address], | | | | | | [place] [address] | | | | + + + + + + | MCV | 80.9Comment: Testing | 80.0 - 100.0 fl | EXTERNAL | | | | performed at [facility], [address] | | LAB | | | | [address], | | | | | | [place] [address] | | | | + + + + + + | MCH | 26.7 (L)Comment: Testing | 27.0 - 34.0 pg | EXTERNAL | | | | performed at [facility], [address] | | LAB | | | | [address], | | | | | | [place] [address] | | | | + + + + + + | MCHC | 33.0Comment: Testing | 32.0 - 35.5 | EXTERNAL | | | | performed at [facility], [address] | g/dL | LAB | | | | [address], | | | | | | [place] [address] | | | | + + + + + + | RDW-CV | 41.6Comment: Testing | 37 - 53 fl | EXTERNAL | | | | performed at [facility], [address] | | LAB | | | | [address], | | | | | | [place] [address] | | | | + + + + + + | Platelet | 119 (L)Comment: Testing | 150 - 400 K/uL | EXTERNAL | | | Count | performed at [facility], [address] | | LAB | | | Plasma | [address], | | | | | | [place] [address] | | | | + + + + + + | MPV | 9.7Comment: Testing | fl | EXTERNAL | | | | performed at [facility], [address] | | LAB | | | | [address], | | | | | | [place] [address] | | | | + + + + + + | Differentia | MANUALComment: Testing | | EXTERNAL | | | l Type | performed at [facility], [address] | | LAB | | | | [address], | | | | | | [place] [address] | | | | + + + + + + | Segmented | 92Comment: Testing | % | EXTERNAL | | | Neutrophils | performed at [facility], [address] | | LAB | | | Manual | [address], | | | | | | [place] [address] | | | | + + + + + + | Lymphocytes | 6Comment: Testing | % | EXTERNAL | | | Manual | performed at [facility], [address] | | LAB | | | | [address], | | | | | | [place] [address] | | | | + + + + + + | Monocytes | 2Comment: Testing | % | EXTERNAL | | | Manual | performed at [facility], [address] | | LAB | | | | [address], | | | | | | [place] [address] | | | | + + + + + + | Absolute | 29.32 (H)Comment: | 1.90 - 7.40 | EXTERNAL | | | Neutrophils | Testing performed at | K/uL | LAB | | | | [facility], [address] | | | | | | [place] | | | | | | [address] | | | | + + + + + + | Absolute | 1.91Comment: Testing | 1.00 - 3.90 | EXTERNAL | | | Lymphocytes | performed at [facility], [address] | K/uL | LAB | | | | [address], | | | | | | [place] [address] | | | | + + + + + + | Absolute | 0.64Comment: Testing | 0.00 - 0.80 | EXTERNAL | | | Monocytes | performed at [facility], [address] | K/uL | LAB | | | | [address], | | | | | | [place] [address] | | | | + + + + + + | RBC | RBC AND PLT MORPHOLOGY | | EXTERNAL | | | Morphology | APPEAR NORMALComment: | | LAB | | | | Testing performed at | | | | | | [facility], [address] | | | | | | [place] | | | | | | [address] | | | | + + + + + + + + | Specimen | + + | Blood specimen | | (specimen) | + + + +---------+ + + | Performing | Address | City/State/Zipcode | Phone Number | | Organization | | | | + +---------+ + + | EXTERNAL LAB | | | | + +---------+ + + Phosphorus (10/05/2015 4:19 AM PDT) + + + + + + | Component | Value | Ref Range | Performed | Pathologist | | | | | At | Signature | + + + + + + | PHOSPHORUS | 5.1 (H)Comment: Testing | 2.3 - 4.8 mg/dL | EXTERNAL | | | | performed at [facility];[address] | | LAB | | | [address];[place], [place] | | | | | | [address] | | | | + + + + + + + + | Specimen | + + | Blood specimen | | (specimen) | + + + +---------+ + + | Performing | Address | City/State/Zipcode | Phone Number | | Organization | | | | + +---------+ + + | EXTERNAL LAB | | | | + +---------+ + + Magnesium (10/05/2015 4:19 AM PDT) + + + + + + | Component | Value | Ref Range | Performed | Pathologist | | | | | At | Signature | + + + + + + | Magnesium | 3.1 (H)Comment: Testing | 1.7 - 2.4 mg/dL | EXTERNAL | | | | performed at [facility];[address] | | LAB | | | | [address];[place], [place] | | | | | | [address] | | | | + + + + + + + + | Specimen | + + | Blood specimen | | (specimen) | + + + +---------+ + + | Performing | Address | City/State/Zipcode | Phone Number | | Organization | | | | + +---------+ + + | EXTERNAL LAB | | | | + +---------+ + + Lactate Dehydrogenase (10/05/2015 4:19 AM PDT) + + + + + + | Component | Value | Ref Range | Performed | Pathologist | | | | | At | Signature | + + + + + + | LDH TOTAL | 309 (H)Comment: SPECIMEN | 115 - 225 U/L | EXTERNAL | | | | SLIGHTLY | | LAB | | | | HEMOLYZEDTesting | | | | | | performed at [facility], [address] | | | | | | [address], | | | | | | [place] [address] | | | | + + + + + + + + | Specimen | + + | Blood specimen | | (specimen) | + + + +---------+ + + | Performing | Address | City/State/Zipcode | Phone Number | | Organization | | | | + +---------+ + + | EXTERNAL LAB | | | | + +---------+ + + Hepatic Function Panel (10/05/2015 4:19 AM PDT) + + + + + + | Component | Value | Ref Range | Performed | Pathologist | | | | | At | Signature | + + + + + + | Protein, | 5.1 (L)Comment: Testing | 6.3 - 8.2 g/dL | EXTERNAL | | | Total | performed at [facility];[address] | | LAB | | | | [address];[place] | | | | | | [address] | | | | + + + + + + | Albumin | 1.4 (L)Comment: Testing | 3.6 - 5.0 g/dL | EXTERNAL | | | | performed at [facility];[address] | | LAB | | | [address];[place] | | | | | | [address] | | | | + + + + + + | Bilirubin | 7.5 (H)Comment: Testing | 0.1 - 1.5 mg/dL | EXTERNAL | | | Total | performed at [facility];[address] | | LAB | | | | [address];[place] | | | | | | [address] | | | | + + + + + + | Bilirubin | 5.1 (H)Comment: Testing | 0.0 - 0.3 mg/dL | EXTERNAL | | | Direct | performed at [facility];[address] | | LAB | | | [address];[place] | | | | | | [address] | | | | + + + + + + | ALP, | 95Comment: Testing | 35 - 115 U/L | EXTERNAL | | | External | performed at [facility];[address] | | LAB | | | [address];[place] | | | | | | [address] | | | | + + + + + + | AST | 63 (H)Comment: Testing | 10 - 45 U/L | EXTERNAL | | | | performed at [facility];[address] | | LAB | | | [address];[place] | | | | | | [address] | | | | + + + + + + | ALT | 56Comment: Testing | 10 - 65 U/L | EXTERNAL | | | | performed at [facility];[address] | | LAB | | | | [address];[place] | | | | | | [address] | | | | + + + + + + + + | Specimen | + + | | + + + +---------+ + + | Performing | Address | City/State/Zipcode | Phone Number | | Organization | | | | + +---------+ + + | EXTERNAL LAB | | | | + +---------+ + + Basic Metabolic Panel (10/05/2015 4:19 AM PDT) + + + + + + | Component | Value | Ref Range | Performed | Pathologist | | | | | At | Signature | + + + + + + | Na | 122 (L)Comment: Testing | 135 - 145 | EXTERNAL | | | | performed at [facility];[address] | mmol/L | LAB | | | | [address];[place] | | | | | | [address] | | | | + + + + + + | K | 4.6Comment: Testing | 3.5 - 4.9 | EXTERNAL | | | | performed at [facility];[address] | mmol/L | LAB | | | | [address];[place] | | | | | | [address] | | | | + + + + + + | Cl | 89 (L)Comment: Testing | 99 - 109 mmol/L | EXTERNAL | | | | performed at [facility];[address] | | LAB | | | [address];[place] | | | | | | [address] | | | | + + + + + + | CO2 | 20 (L)Comment: Testing | 23 - 32 mmol/L | EXTERNAL | | | | performed at [facility];[address] | | LAB | | | [address];[place] | | | | | | [address] | | | | + + + + + + | Anion Gap | 17Comment: Testing | 5 - 20 mmol/L | EXTERNAL | | | | performed at [facility];[address] | | LAB | | | | [address];[place] | | | | | | [address] | | | | + + + + + + | Glucose, | 140 (H)Comment: Testing | 65 - 99 mg/dL | EXTERNAL | | | Fasting | performed at [facility];[address] | | LAB | | | | [address];[place] | | | | | | [address] | | | | + + + + + + | BUN | 97 (H)Comment: Testing | 8 - 25 mg/dL | EXTERNAL | | | | performed at [facility];[address] | | LAB | | | | [address];[place] | | | | | | [address] | | | | + + + + + + | Creatinine | 2.9 (H)Comment: Testing | 0.70 - 1.30 | EXTERNAL | | | | performed at [facility];[address] | mg/dL | LAB | | | | [address];[place] | | | | | | [address] | | | | + + + + + + | BUN/Creatin | 33Comment: Testing | | EXTERNAL | | | ine Ratio | performed at [facility];[address] | | LAB | | | [address];[place] | | | | | | [address] | | | | + + + + + + | Calcium | 6.3 (L)Comment: Testing | 8.5 - 10.5 | EXTERNAL | | | | performed at [facility];[address] | mg/dL | LAB | | | | [address];[place] | | | | | | [address] | | | | + + + + + + | Estimated | 27 (L)Comment: GFR <60: | mL/min/1.73m2 | EXTERNAL | | | GFR | CHRONIC KIDNEY DISEASE, | | LAB | | | | IF FOUND OVER A 3 MONTH | | | | | | PERIOD.GFR <15: KIDNEY | | | | | | FAILURE.FOR | | | | | | AMERICANS, MULTIPLY THE | | | | | | CALCULATED GFR BY | | | | | | 1.210.Testing performed | | | | | | at [facility];[address] [place] [address] | | | | | | [facility];[place] [address] | | | | + + + + + + + + | Specimen | + + | Blood specimen | | (specimen) | + + + +---------+ + + | Performing | Address | City/State/Zipcode | Phone Number | | Organization | | | | + +---------+ + + | EXTERNAL LAB | | | | + +---------+ + + Culture, Urine (10/04/2015 3:32 PM PDT) + + | Specimen | + + | | + + + + + | Narrative | Performed At | + + + | Specimen Description URINE, COLLECTION NOT | EXTERNAL LAB | | GIVEN CULTURE NO GROWTH | | | Testing performed | | | at [facility], [address] [place] [address] | | + + + + +---------+ + + | Performing | Address | City/State/Zipcode | Phone Number | | Organization | | | | + +---------+ + + | EXTERNAL LAB | | | | + +---------+ + + C3 and C4 (10/04/2015 3:32 PM PDT) + + + + + + | Component | Value | Ref Range | Performed | Pathologist | | | | | At | Signature | + + + + + + | C3 | 65 (L)Comment: Testing | 90 - 180 mg/dL | EXTERNAL | | | COMPLEMENT | performed at [facility], [address] | | LAB | | | | [address], | | | | | | [place] [address] | | | | + + + + + + | Complement | 10.8Comment: Testing | 10 - 40 mg/dL | EXTERNAL | | | Comp 4 | performed at [facility], [address] | | LAB | | | | [address], | | | | | | [place] [address] | | | | + + + + + + + + | Specimen | + + | Blood specimen | | (specimen) | + + + +---------+ + + | Performing | Address | City/State/Zipcode | Phone Number | | Organization | | | | + +---------+ + + | EXTERNAL LAB | | | | + +---------+ + + Eosinophil Smear, Urine (10/04/2015 3:32 PM PDT) + + + + + + | Component | Value | Ref Range | Performed | Pathologist | | | | | At | Signature | + + + + + + | Eosinophils | NO EOSINOPHILS | % | EXTERNAL | | | , Urine | SEENComment: Testing | | LAB | | | | performed at [facility], [address] | | | | | | [address], | | | | | | [place] [address] | | | | + + + + + + + + | Specimen | + + | | + + + +---------+ + + | Performing | Address | City/State/Zipcode | Phone Number | | Organization | | | | + +---------+ + + | EXTERNAL LAB | | | | + +---------+ + + Antistreptolysin O, Quant (10/04/2015 3:32 PM PDT) + + + + + + | Component | Value | Ref Range | Performed | Pathologist | | | | | At | Signature | + + + + + + | Anti | <50Comment: Testing | 0 - 250 IU/mL | EXTERNAL | | | Streptolysi | performed at [facility], [address] | | LAB | | | n O | [address], | | | | | | [place] [address] | | | | + + + + + + + + | Specimen | + + | Blood specimen | | (specimen) | + + + +---------+ + + | Performing | Address | City/State/Zipcode | Phone Number | | Organization | | | | + +---------+ + + | EXTERNAL LAB | | | | + +---------+ + + Urinalysis, Microscopic Only (10/04/2015 3:32 PM PDT) + + +---- --------+ + + | Component | Value | Ref Range | Performed | Pathologist | | | | | At | Signature | + + +---- --------+ + + | WBC, UA | 6-10Comment: Testing | 0 - 5 /hpf | EXTERNAL | | | | performed at [facility], [address] | | LAB | | | [address], | | | | | | [place] [address] | | | | + + +---- --------+ + + | RBC, UA | >100Comment: Testing | 0 - 2 /hpf | EXTERNAL | | | | performed at [facility], [address] | | LAB | | | | [address], | | | | | | [place] [address] | | | | + + +---- --------+ + + | Epithelial | 1-5Comment: Testing | /lp f | EXTERNAL | | | Cells | performed at [facility], [address] | | LAB | | | | [address], | | | | | | [place] [address] | | | | + + +---- --------+ + + | Bacteria, | NONE SEENComment: | | EXTERNAL | | | UA | Testing performed at | | LAB | | | | [facility], [address] [facility] | | | | | | [place] | | | | | | [address] | | | | + + +---- --------+ + + | CASTS | 1-5Comment: | /lp f | EXTERNAL | | | | HYALINE0-2COARSE | | LAB | | | | GRANULAR0-2RBC | | | | | | CASTSTesting performed | | | | | | at [facility], [address] | | | | | | [address], | | | | | | [place] [address] | | | | | |Testing performed at [facility], [address] [facility] [place] [address] | | | | | | | | | | + + +---- --------+ + + | Crystals | 1+Comment: URATESTesting | /hp f | EXTERNAL | | | | performed at [facility], [address] | | LAB | | | | [address], | | | | | | [place] [address] | | | | | | | | | | + + +---- --------+ + + | Urinalysis | CULTURE TO | | EXTERNAL | | | Comments | FOLLOWComment: Testing | | LAB | | | | performed at [facility], [address] | | | | | | [address], | | | | | | [place] [address] | | | | + + +---- --------+ + + + + | Specimen | + + | | + + + +---------+ + + | Performing | Address | City/State/Zipcode | Phone Number | | Organization | | | | + +---------+ + + | EXTERNAL LAB | | | | + +---------+ + + Urinalysis with Microscopic if Indicated (10/04/2015 3:32 PM PDT) + + + + + + | Component | Value | Ref Range | Performed | Pathologist | | | | | At | Signature | + + + + + + | Color | ORANGEComment: DIPSTICK | | EXTERNAL | | | | NOT REPORTED DUE TO | | LAB | | | | COLOR | | | | | | INTERFERENCETesting | | | | | | performed at [facility], [address] | | | | | | [address], | | | | | | [place] [address] | | | | + + + + + + + + | Specimen | + + | Urine specimen | | (specimen) | + + + +---------+ + + | Performing | Address | City/State/Zipcode | Phone Number | | Organization | | | | + +---------+ + + | EXTERNAL LAB | | | | + +---------+ + + Sodium (10/04/2015 3:32 PM PDT) + + + + + + | Component | Value | Ref Range | Performed | Pathologist | | | | | At | Signature | + + + + + + | Na | 124 (L)Comment: Testing | 135 - 145 | EXTERNAL | | | | performed at [facility];[address] | mmol/L | LAB | | | | [address];[place], [place] | | | | | | [address] | | | | + + + + + + + + | Specimen | + + | Blood specimen | | (specimen) | + + + +---------+ + + | Performing | Address | City/State/Zipcode | Phone Number | | Organization | | | | + +---------+ + + | EXTERNAL LAB | | | | + +---------+ + + Protime INR (10/04/2015 4:40 AM PDT) + + + + + + | Component | Value | Ref Range | Performed | Pathologist | | | | | At | Signature | + + + + + + | INR | NO CLOT DETECTEDComment: | | EXTERNAL | | | | REFERENCE RANGE:0.9 - | | LAB | | | | 1.2 | | | | | | NON-ANTICOAGULATED2.0 | | | | | | - 3.0 ALL OTHER | | | | | | THERAPEUTIC | | | | | | INDICATIONS2.5 - 3.5 | | | | | | MECHANICAL HEART VALVES, | | | | | | RECURRENT OR SYSTEMIC | | | | | | EMBOLISMTesting | | | | | | performed at [facility] | | | | | | [address];[place], [place] | | | | | | [address] | | | | + + + + + + + + | Specimen | + + | Blood specimen | | (specimen) | + + + +---------+ + + | Performing | Address | City/State/Zipcode | Phone Number | | Organization | | | | + +---------+ + + | EXTERNAL LAB | | | | + +---------+ + + External Lab: CBC (10/04/2015 4:40 AM PDT) + + + + + + | Component | Value | Ref Range | Performed | Pathologist | | | | | At | Signature | + + + + + + | WBC | 14.41 (H)Comment: | 3.80 - 11.00 | EXTERNAL | | | | Testing performed at | K/uL | LAB | | | | [facility], [address] | | | | | | [place] | | | | | | [address] | | | | + + + + + + | Non- | 3.39 (L)Comment: Testing | 4.20 - 5.70 | EXTERNAL | | | Red Blood | performed at [facility], [address] | M/uL | LAB | | | Cells | [address], | | | | | Counted | [place] [address] | | | | + + + + + + | Hemoglobin | 9.0 (L)Comment: Testing | 13.2 - 17.0 | EXTERNAL | | | | performed at [facility], [address] | g/dL | LAB | | | | [address], | | | | | | [place] [address] | | | | + + + + + + | Hematocrit, | 27.3 (L)Comment: Testing | 39.0 - 50.0 % | EXTERNAL | | | POC | performed at [facility], [address] | | LAB | | | | [address], | | | | | | [place] [address] | | | | + + + + + + | MCV | 80.5Comment: Testing | 80.0 - 100.0 fl | EXTERNAL | | | | performed at [facility], [address] | | LAB | | | | [place], | | | | | | [place] [address] | | | | + + + + + + | MCH | 26.6 (L)Comment: Testing | 27.0 - 34.0 pg | EXTERNAL | | | | performed at [facility], [address] | | LAB | | | | [address], | | | | | | [place] [address] | | | | + + + + + + | MCHC | 33.1Comment: Testing | 32.0 - 35.5 | EXTERNAL | | | | performed at [facility], [address] | g/dL | LAB | | | | [address], | | | | | | [place] [address] | | | | + + + + + + | RDW-CV | 40.3Comment: Testing | 37 - 53 fl | EXTERNAL | | | | performed at [facility], [address] | | LAB | | | | [address], | | | | | | [place] [address] | | | | + + + + + + | Platelet | 69 (L)Comment: Testing | 150 - 400 K/uL | EXTERNAL | | | Count | performed at [facility], [address] | | LAB | | | Plasma | [address], | | | | | | [place] [address] | | | | + + + + + + | MPV | 9.9Comment: Testing | fl | EXTERNAL | | | | performed at [facility], [address] | | LAB | | | | [address], | | | | | | [place] [address] | | | | + + + + + + | Differentia | MANUALComment: Testing | | EXTERNAL | | | l Type | performed at [facility], [address] | | LAB | | | | [address], | | | | | | [place] [address] | | | | + + + + + + | Segmented | 90Comment: Testing | % | EXTERNAL | | | Neutrophils | performed at [facility], [address] | | LAB | | | Manual | [place], | | | | | | [place] [address] | | | | + + + + + + | % Bands | 7Comment: Testing | % | EXTERNAL | | | | performed at [facility], [address] | | LAB | | | | [address], | | | | | | [place] [address] | | | | + + + + + + | Lymphocytes | 3Comment: Testing | % | EXTERNAL | | | Manual | performed at [facility], [address] | | LAB | | | | [address], | | | | | | [place] [address] | | | | + + + + + + | Absolute | 12.97 (H)Comment: | 1.90 - 7.40 | EXTERNAL | | | Neutrophils | Testing performed at | K/uL | LAB | | | | [facility], [address] [facility] | | | | | | [place] | | | | | | [address] | | | | + + + + + + | Bands | 1.01 (H)Comment: Testing | 0.00 - 0.20 | EXTERNAL | | | Manual | performed at [facility], [address] | K/uL | LAB | | | | [address], | | | | | | [place] [address] | | | | + + + + + + | Absolute | 0.43 (L)Comment: Testing | 1.00 - 3.90 | EXTERNAL | | | Lymphocytes | performed at [facility], [address] | K/uL | LAB | | | | [address], | | | | | | [place] [address] | | | | + + + + + + | RBC | RBC AND PLT MORPHOLOGY | | EXTERNAL | | | Morphology | APPEAR NORMALComment: | | LAB | | | | Testing performed at | | | | | | [facility], [address] | | | | | | [address], [place], [place] | | | | | | [address] | | | | + + + + + + + + | Specimen | + + | Blood specimen | | (specimen) | + + + +---------+ + + | Performing | Address | City/State/Zipcode | Phone Number | | Organization | | | | + +---------+ + + | EXTERNAL LAB | | | | + +---------+ + + Phosphorus (10/04/2015 4:40 AM PDT) + + + + + + | Component | Value | Ref Range | Performed | Pathologist | | | | | At | Signature | + + + + + + | PHOSPHORUS | 3.6Comment: Testing | 2.3 - 4.8 mg/dL | EXTERNAL | | | | performed at [facility];[address] | | LAB | | | | [address];[place], [place] | | | | | | [address] | | | | + + + + + + + + | Specimen | + + | Blood specimen | | (specimen) | + + + +---------+ + + | Performing | Address | City/State/Zipcode | Phone Number | | Organization | | | | + +---------+ + + | EXTERNAL LAB | | | | + +---------+ + + Magnesium (10/04/2015 4:40 AM PDT) + + + + + + | Component | Value | Ref Range | Performed | Pathologist | | | | | At | Signature | + + + + + + | Magnesium | 3.0 (H)Comment: Testing | 1.7 - 2.4 mg/dL | EXTERNAL | | | | performed at [facility];[address] | | LAB | | | | [address];[place], [place] | | | | | | [address] | | | | + + + + + + + + | Specimen | + + | Blood specimen | | (specimen) | + + + +---------+ + + | Performing | Address | City/State/Zipcode | Phone Number | | Organization | | | | + +---------+ + + | EXTERNAL LAB | | | | + +---------+ + + Vancomycin, Trough (10/04/2015 4:40 AM PDT) + + + + + + | Component | Value | Ref Range | Performed | Pathologist | | | | | At | Signature | + + + + + + | Vancomycin | 23.9 ()Comment: 15 to | 10 - 20 ug/mL | EXTERNAL | | | Trough | 20 ug/mL for meningitis, | | LAB | | | | osteomyelitis, | | | | | | endocarditis, sepsis, or | | | | | | healthcare associated | | | | | | pneumonia, or an SHAYY | | | | | | equal to or greater than | | | | | | 1.0 ug/mLCALLED NURSING | | | | | | MABEL PRITCHETT RN AT 0516 | | | | | | BY RHREAD BACK RESULTS | | | | | | VERIFIEDTesting | | | | | | performed at [facility];[address] | | | | | | [facility];[place], [place] | | | | | | [address] | | | | + + + + + + + + | Specimen | + + | Blood specimen | | (specimen) | + + + +---------+ + + | Performing | Address | City/State/Zipcode | Phone Number | | Organization | | | | + +---------+ + + | EXTERNAL LAB | | | | + +---------+ + + Hepatic Function Panel (10/04/2015 4:40 AM PDT) + + + + + + | Component | Value | Ref Range | Performed | Pathologist | | | | | At | Signature | + + + + + + | Protein, | 5.2 (L)Comment: Testing | 6.3 - 8.2 g/dL | EXTERNAL | | | Total | performed at [facility];[address] | | LAB | | | | [address];[place] | | | | | | [address] | | | | + + + + + + | Albumin | 1.4 (L)Comment: Testing | 3.6 - 5.0 g/dL | EXTERNAL | | | | performed at [facility];[address] | | LAB | | | | [address];[place] | | | | | | [address] | | | | + + + + + + | Bilirubin | 2.0 (H)Comment: Testing | 0.1 - 1.5 mg/dL | EXTERNAL | | | Total | performed at [facility];[address] | | LAB | | | | [address];[place] | | | | | | [address] | | | | + + + + + + | Bilirubin | 1.6 (H)Comment: Testing | 0.0 - 0.3 mg/dL | EXTERNAL | | | Direct | performed at [facility];[address] | | LAB | | | | [address];[place] | | | | | | [address] | | | | + + + + + + | ALP, | 105Comment: Testing | 35 - 115 U/L | EXTERNAL | | | External | performed at [facility];[address] | | LAB | | | | [address];[place] | | | | | | [address] | | | | + + + + + + | AST | 61 (H)Comment: Testing | 10 - 45 U/L | EXTERNAL | | | | performed at [facility];[address] | | LAB | | | | [address];[place] | | | | | | [address] | | | | + + + + + + | ALT | 63Comment: Testing | 10 - 65 U/L | EXTERNAL | | | | performed at [facility];[address] | | LAB | | | | [address];[place] | | | | | | [address] | | | | + + + + + + + + | Specimen | + + | | + + + +---------+ + + | Performing | Address | City/State/Zipcode | Phone Number | | Organization | | | | + +---------+ + + | EXTERNAL LAB | | | | + +---------+ + + Basic Metabolic Panel (10/04/2015 4:40 AM PDT) + + + + + + | Component | Value | Ref Range | Performed | Pathologist | | | | | At | Signature | + + + + + + | Na | 123 (L)Comment: Testing | 135 - 145 | EXTERNAL | | | | performed at [facility];[address] | mmol/L | LAB | | | | [address];[place] | | | | | | [address] | | | | + + + + + + | K | 3.9Comment: Testing | 3.5 - 4.9 | EXTERNAL | | | | performed at [facility];[address] | mmol/L | LAB | | | | [address];[place] | | | | | | [address] | | | | + + + + + + | Cl | 89 (L)Comment: Testing | 99 - 109 mmol/L | EXTERNAL | | | | performed at [facility];[address] | | LAB | | | | [address];[place] | | | | | | [address] | | | | + + + + + + | CO2 | 23Comment: Testing | 23 - 32 mmol/L | EXTERNAL | | | | performed at [facility];[address] | | LAB | | | | [address];[place] | | | | | | [address] | | | | + + + + + + | Anion Gap | 15Comment: Testing | 5 - 20 mmol/L | EXTERNAL | | | | performed at [facility];[address] | | LAB | | | | [address];[place] | | | | | | [address] | | | | + + + + + + | Glucose, | 115 (H)Comment: Testing | 65 - 99 mg/dL | EXTERNAL | | | Fasting | performed at [facility];[address] | | LAB | | | | [address];[place] | | | | | | [address] | | | | + + + + + + | BUN | 78 (H)Comment: Testing | 8 - 25 mg/dL | EXTERNAL | | | | performed at [facility];[address] | | LAB | | | | [address];[place] | | | | | | [address] | | | | + + + + + + | Creatinine | 1.6 (H)Comment: Testing | 0.70 - 1.30 | EXTERNAL | | | | performed at [facility];[address] | mg/dL | LAB | | | | [address];[place] | | | | | | [address] | | | | + + + + + + | BUN/Creatin | 49Comment: Testing | | EXTERNAL | | | ine Ratio | performed at [facility];[address] | | LAB | | | | [address];[place] | | | | | | [address] | | | | + + + + + + | Calcium | 6.7 (L)Comment: Testing | 8.5 - 10.5 | EXTERNAL | | | | performed at [facility];[address] | mg/dL | LAB | | | | [address];[place] | | | | | | [address] | | | | + + + + + + | Estimated | 54 (L)Comment: GFR <60: | mL/min/1.73m2 | EXTERNAL | | | GFR | CHRONIC KIDNEY DISEASE, | | LAB | | | | IF FOUND OVER A 3 MONTH | | | | | | PERIOD.GFR <15: KIDNEY | | | | | | FAILURE.FOR | | | | | | AMERICANS, MULTIPLY THE | | | | | | CALCULATED GFR BY | | | | | | 1.210.Testing performed | | | | | | at [facility];[address];[place] [address] | | | | + + + + + + + + | Specimen | + + | Blood specimen | | (specimen) | + + + +---------+ + + | Performing | Address | City/State/Zipcode | Phone Number | | Organization | | | | + +---------+ + + | EXTERNAL LAB | | | | + +---------+ + + Sodium (10/04/2015 12:34 AM PDT) + + + + + + | Component | Value | Ref Range | Performed | Pathologist | | | | | At | Signature | + + + + + + | Na | 122 (L)Comment: Testing | 135 - 145 | EXTERNAL | | | | performed at [facility];[address] | mmol/L | LAB | | | | [address];[place], [place] | | | | | | [address] | | | | + + + + + + + + | Specimen | + + | Blood specimen | | (specimen) | + + + +---------+ + + | Performing | Address | City/State/Zipcode | Phone Number | | Organization | | | | + +---------+ + + | EXTERNAL LAB | | | | + +---------+ + + Osmolality, Urine (10/03/2015 8:58 PM PDT) + + + + + + | Component | Value | Ref Range | Performed | Pathologist | | | | | At | Signature | + + + + + + | OSMO URINE | Testing performed by | 50 - 1,200 | EXTERNAL | | | | [facility], [address], | mOsm/kg | LAB | | | | [place] [address]: | | | | | | Testing performed at | | | | | | [facility], [address] | | | | | | [address] | | | | | | [address] | | | | + + + + + + + + | Specimen | + + | Urine specimen | | (specimen) | + + + +---------+ + + | Performing | Address | City/State/Zipcode | Phone Number | | Organization | | | | + +---------+ + + | EXTERNAL LAB | | | | + +---------+ + + [facility] Lab Referral (10/03/2015 8:57 PM PDT) + + + + + + | Component | Value | Ref Range | Performed | Pathologist | | | | | At | Signature | + + + + + + | TEST | OSMURComment: Testing | | EXTERNAL | | | INFORMATION | performed at [facility], [address] | | LAB | | | | [address], | | | | | | [place] [address] | | | | + + + + + + | Miscellaneo | SEE BELOWComment: | | EXTERNAL | | | us Lab Test | OSMOLALITY, URINE | | LAB | | | | RANDOMTEST | | | | | | RESULT/FLAG | | | | | | | | | | | | REFERENCE_RANGEOSMOLAL | | | | | | ITY, URINE RANDOM | | | | | | 369 | | | | | | MOSM/KG | | | | | | 50-1200Testing | | | | | | performed at [facility] | | | | | | [facility], | | | | | | [address] | | | | | | [address] | | | | + + + + + + + + | Specimen | + + | | + + + +---------+ + + | Performing | Address | City/State/Zipcode | Phone Number | | Organization | | | | + +---------+ + + | EXTERNAL LAB | | | | + +---------+ + + Sodium (10/03/2015 8:41 PM PDT) + + + + + + | Component | Value | Ref Range | Performed | Pathologist | | | | | At | Signature | + + + + + + | Na | 122 (L)Comment: Testing | 135 - 145 | EXTERNAL | | | | performed at [facility];[address] | mmol/L | LAB | | | | [address];[place], [place] | | | | | | [address] | | | | + + + + + + + + | Specimen | + + | Blood specimen | | (specimen) | + + + +---------+ + + | Performing | Address | City/State/Zipcode | Phone Number | | Organization | | | | + +---------+ + + | EXTERNAL LAB | | | | + +---------+ + + POC Glucose (10/03/2015 4:35 PM PDT) + + + + + + | Component | Value | Ref Range | Performed | Pathologist | | | | | At | Signature | + + + + + + | Glucose, | 125 (H)Comment: Testing | 65 - 99 mg/dL | EXTERNAL | | | Fingerstick | performed at [facility] | | LAB | | | | [address];[place], [place] | | | | | | [address] | | | | + + + + + + + + | Specimen | + + | | + + + +---------+ + + | Performing | Address | City/State/Zipcode | Phone Number | | Organization | | | | + +---------+ + + | EXTERNAL LAB | | | | + +---------+ + + Adrenocorticotropic Hormone (10/03/2015 3:50 PM PDT) + + + + + + | Component | Value | Ref Range | Performed | Pathologist | | | | | At | Signature | + + + + + + | CORTISOL, | 1,550Comment: Testing | | EXTERNAL | | | collection | performed at [facility];[address] | | LAB | | | time | [address];[place], [place] | | | | | | [address] | | | | + + + + + + | Cortisol, | 27.7Comment: | ug/dL | EXTERNAL | | | Total | Cortisol Baseline | | LAB | | | | AM Sample | | | | | | 4.3-22.4 | | | | | | PM Sample | | | | | | 3.0-16.0 Testing | | | | | | performed at [facility], [address] | | | | | | [place] [address], | | | | | | [place] [address] | | | | + + + + + + | CORTISOL, | 1,630Comment: Testing | | EXTERNAL | | | collection | performed at [facility];[address] | | LAB | | | time | [address];[place] | | | | | | [address] | | | | + + + + + + | Cortisol, | 35.1Comment: | ug/dL | EXTERNAL | | | Stim, | Normal peak serum | | LAB | | | Sample 2 | cortisol is GT 20 ug/dL, | | | | | | 30 to 60 | | | | | | minutes after 25 units | | | | | | cosyntropin IV.Testing | | | | | | performed at [facility], [address] | | | | [address], | | | | | | [place] [address] | | | | + + + + + + | CORTISOL, | 1,700Comment: Testing | | EXTERNAL | | | collection | performed at [facility];[address] | | LAB | | | time | [address];[place], [place] | | | | | | [address] | | | | + + + + + + | Cortisol, | 32.17Comment: | ug/dL | EXTERNAL | | | Stim, | Normal peak serum | | LAB | | | Sample 3 | cortisol is GT 20 ug/dL, | | | | | | 30 to 60 | | | | | | minutes after 25 units | | | | | | cosyntropin IV.Testing | | | | | | performed at [facility], [address] | | | | | | [facility] [address] [address] | | | | | | [place] [address] | | | | + + + + + + + + | Specimen | + + | Blood specimen | | (specimen) | + + + +---------+ + + | Performing | Address | City/State/Zipcode | Phone Number | | Organization | | | | + +---------+ + + | EXTERNAL LAB | | | | + +---------+ + + Sodium (10/03/2015 3:50 PM PDT) + + + + + + | Component | Value | Ref Range | Performed | Pathologist | | | | | At | Signature | + + + + + + | Na | 122 (L)Comment: Testing | 135 - 145 | EXTERNAL | | | | performed at [facility];888 | mmol/L | LAB | | | | [address];[place], [place] | | | | | | [address] | | | | + + + + + + + + | Specimen | + + | Blood specimen | | (specimen) | + + + +---------+ + + | Performing | Address | City/State/Zipcode | Phone Number | | Organization | | | | + +---------+ + + | EXTERNAL LAB | | | | + +---------+ + + Sodium (10/03/2015 12:43 PM PDT) + + + + + + | Component | Value | Ref Range | Performed | Pathologist | | | | | At | Signature | + + + + + + | Na | 120 (L)Comment: Testing | 135 - 145 | EXTERNAL | | | | performed at [facility];888 | mmol/L | LAB | | | | [address];[place] | | | | | | [address] | | | | + + + + + + + + | Specimen | + + | Blood specimen | | (specimen) | + + + +---------+ + + | Performing | Address | City/State/Zipcode | Phone Number | | Organization | | | | + +---------+ + + | EXTERNAL LAB | | | | + +---------+ + + Vancomycin, Trough (10/03/2015 12:43 PM PDT) + + + + + + | Component | Value | Ref Range | Performed | Pathologist | | | | | At | Signature | + + + + + + | Vancomycin | 14.8Comment: 15 to 20 | 10 - 20 ug/mL | EXTERNAL | | | Trough | ug/mL for meningitis, | | LAB | | | | osteomyelitis, | | | | | | endocarditis, sepsis, or | | | | | | healthcare associated | | | | | | pneumonia, or an SHAYY | | | | | | equal to or greater than | | | | | | 1.0 ug/mLTesting | | | | | | performed at [facility] | | | | | | [facility];[place], [place] | | | | | | [address] | | | | + + + + + + + + | Specimen | + + | Blood specimen | | (specimen) | + + + +---------+ + + | Performing | Address | City/State/Zipcode | Phone Number | | Organization | | | | + +---------+ + + | EXTERNAL LAB | | | | + +---------+ + + HIV RNA, quantitative, PCR (10/03/2015 12:38 PM PDT) + + + + + + | Component | Value | Ref Range | Performed | Pathologist | | | | | At | Signature | + + + + + + | HIV-1 VIRAL | NOT DETECTEDComment: | Log copies/mL | EXTERNAL | | | RESULT | Testing performed at | | LAB | | | (REF) | [facility], [address] | | | | | | [place] | | | | | | [address] | | | | + + + + + + | HIV-1 VIRAL | NOT DETECTEDComment: | Copies/mL | EXTERNAL | | | LOAD | Testing performed at | | LAB | | | RESULT | [facility], [address] | | | | | | [place] | | | | | | [address] | | | | + + + + + + | HIV-1 VIRAL | SEE BELOWComment: | | EXTERNAL | | | LOAD | REPORTABLE RANGE HIV-1 | | LAB | | | COMMENT | RNA 1.3 TO 7.0 LOG | | | | | | COPIES/ML (20 TO | | | | | | 10,000,000COPIES/ML.)THI | | | | | | S ASSAY WAS PERFORMED | | | | | | USING THE FDA APPROVED | | | | | | GRISELDA | | | | | | COBASAMPLIPREP/DAPHNE | | | | | | TAQMAN HIV 1 TEST.THIS | | | | | | TEST IS INTENDED FOR USE | | | | | | IN CONJUNCTION WITH | | | | | | OTHER LABORATORYMARKERS | | | | | | A PROGNOSTIC | | | | | | INDICATOR FOR PATIENTS | | | | | | WITH HIV 1 INFECTION.IT | | | | | | MAY ALSO BE USED TO AID | | | | | | IN THE ASSESSMENT OF | | | | | | VIRAL RESPONSE | | | | | | TOANTIRETROVIRAL | | | | | | TREATMENT MEASURED BY | | | | | | CHANGES IN PLASMA HIV 1 | | | | | | RNALEVELS. A THREE FOLD | | | | | | (0.5 LOG) CHANGE IN | | | | | | COPIES/MLS IS | | | | | | USUALLYCONSIDERED TO BE | | | | | | CLINICALLY | | | | | | SIGNIFICANT.Testing | | | | | | performed at [facility], [address] | | | | | [place] | | | | | | [place] [address] | | | | + + + + + + + + | Specimen | + + | | + + + +---------+ + + | Performing | Address | City/State/Zipcode | Phone Number | | Organization | | | | + +---------+ + + | EXTERNAL LAB | | | | + +---------+ + + POC Glucose (10/03/2015 11:17 AM PDT) + + + + + + | Component | Value | Ref Range | Performed | Pathologist | | | | | At | Signature | + + + + + + | Glucose, | 151 (H)Comment: Testing | 65 - 99 mg/dL | EXTERNAL | | | Fingerstick | performed at [facility];[address] | | LAB | | | | [address];[place] | | | | | | [address] | | | | + + + + + + + + | Specimen | + + | | + + + +---------+ + + | Performing | Address | City/State/Zipcode | Phone Number | | Organization | | | | + +---------+ + + | EXTERNAL LAB | | | | + +---------+ + + POC Glucose (10/03/2015 9:37 AM PDT) + + + + + + | Component | Value | Ref Range | Performed | Pathologist | | | | | At | Signature | + + + + + + | Glucose, | 100 (H)Comment: Testing | 65 - 99 mg/dL | EXTERNAL | | | Fingerstick | performed at [facility];[address] | | LAB | | | | [address];[place] | | | | | | [address] | | | | + + + + + + + + | Specimen | + + | | + + + +---------+ + + | Performing | Address | City/State/Zipcode | Phone Number | | Organization | | | | + +---------+ + + | EXTERNAL LAB | | | | + +---------+ + + POC Glucose (10/03/2015 8:01 AM PDT) + + + + + + | Component | Value | Ref Range | Performed | Pathologist | | | | | At | Signature | + + + + + + | Glucose, | 115 (H)Comment: Testing | 65 - 99 mg/dL | EXTERNAL | | | Fingerstick | performed at [facility];[address] | | LAB | | | | [address];[place], [place] | | | | | | [address] | | | | + + + + + + + + | Specimen | + + | | + + + +---------+ + + | Performing | Address | City/State/Zipcode | Phone Number | | Organization | | | | + +---------+ + + | EXTERNAL LAB | | | | + +---------+ + + Sodium (10/03/2015 7:58 AM PDT) + + + + + + | Component | Value | Ref Range | Performed | Pathologist | | | | | At | Signature | + + + + + + | Na | 122 (L)Comment: Testing | 135 - 145 | EXTERNAL | | | | performed at [facility];[address] | mmol/L | LAB | | | | [address];[place] | | | | | | [address] | | | | + + + + + + + + | Specimen | + + | Blood specimen | | (specimen) | + + + +---------+ + + | Performing | Address | City/State/Zipcode | Phone Number | | Organization | | | | + +---------+ + + | EXTERNAL LAB | | | | + +---------+ + + POC Glucose (10/03/2015 5:51 AM PDT) + + + + + + | Component | Value | Ref Range | Performed | Pathologist | | | | | At | Signature | + + + + + + | Glucose, | 105 (H)Comment: Testing | 65 - 99 mg/dL | EXTERNAL | | | Fingerstick | performed at [facility];[address] | | LAB | | | | [address];[place] | | | | | | [address] | | | | + + + + + + + + | Specimen | + + | | + + + +---------+ + + | Performing | Address | City/State/Zipcode | Phone Number | | Organization | | | | + +---------+ + + | EXTERNAL LAB | | | | + +---------+ + + POC Glucose (10/03/2015 4:52 AM PDT) + + + + + + | Component | Value | Ref Range | Performed | Pathologist | | | | | At | Signature | + + + + + + | Glucose, | 114 (H)Comment: Testing | 65 - 99 mg/dL | EXTERNAL | | | Fingerstick | performed at [facility];[address] | | LAB | | | | [address];[place], [place] | | | | | | [address] | | | | + + + + + + + + | Specimen | + + | | + + + +---------+ + + | Performing | Address | City/State/Zipcode | Phone Number | | Organization | | | | + +---------+ + + | EXTERNAL LAB | | | | + +---------+ + + Cortisol, PM (10/03/2015 3:45 AM PDT) + + + + + + | Component | Value | Ref Range | Performed | Pathologist | | | | | At | Signature | + + + + + + | CORTISOL, | 4.6Comment: Testing | 3.0 - 16.0 | EXTERNAL | | | PM | performed at [facility], [address] | ug/dL | LAB | | | | [address], | | | | | | [place] [address] | | | | + + + + + + + + | Specimen | + + | | + + + +---------+ + + | Performing | Address | City/State/Zipcode | Phone Number | | Organization | | | | + +---------+ + + | EXTERNAL LAB | | | | + +---------+ + + Protime INR (10/03/2015 3:45 AM PDT) + + + + + + | Component | Value | Ref Range | Performed | Pathologist | | | | | At | Signature | + + + + + + | INR | 1.5Comment: REFERENCE | | EXTERNAL | | | | RANGE:0.9 - 1.2 | | LAB | | | | NON-ANTICOAGULATED2.0 | | | | | | - 3.0 ALL OTHER | | | | | | THERAPEUTIC | | | | | | INDICATIONS2.5 - 3.5 | | | | | | MECHANICAL HEART VALVES, | | | | | | RECURRENT OR SYSTEMIC | | | | | | EMBOLISMTesting | | | | | | performed at [facility];[address] | | | | | | [address];[place], [place] | | | | | | [address] | | | | + + + + + + + + | Specimen | + + | Blood specimen | | (specimen) | + + + +---------+ + + | Performing | Address | City/State/Zipcode | Phone Number | | Organization | | | | + +---------+ + + | EXTERNAL LAB | | | | + +---------+ + + External Lab: CBC (10/03/2015 3:45 AM PDT) + + + + + + | Component | Value | Ref Range | Performed | Pathologist | | | | | At | Signature | + + + + + + | WBC | 14.88 (H)Comment: | 3.80 - 11.00 | EXTERNAL | | | | Testing performed at | K/uL | LAB | | | | [facility];[address];[place] [address] | | | | + + + + + + | Non- | 3.36 (L)Comment: Testing | 4.20 - 5.70 | EXTERNAL | | | Red Blood | performed at [facility];[address] | M/uL | LAB | | | Cells | [address];[place] | | | | | Counted | [id number] | | | | + + + + + + | Hemoglobin | 8.9 (L)Comment: Testing | 13.2 - 17.0 | EXTERNAL | | | | performed at [facility];[address] | g/dL | LAB | | | | [address];[place] | | | | | | [address] | | | | + + + + + + | Hematocrit, | 27.0 (L)Comment: Testing | 39.0 - 50.0 % | EXTERNAL | | | POC | performed at [facility];[address] | | LAB | | | | [address];[place] | | | | | | [address] | | | | + + + + + + | MCV | 80.6Comment: Testing | 80.0 - 100.0 fl | EXTERNAL | | | | performed at [facility];[address] | | LAB | | | | [address];[place] | | | | | | [address] | | | | + + + + + + | MCH | 26.6 (L)Comment: Testing | 27.0 - 34.0 pg | EXTERNAL | | | | performed at [facility];[address] | | LAB | | | | [address];[place] | | | | | | [address] | | | | + + + + + + | MCHC | 33.0Comment: Testing | 32.0 - 35.5 | EXTERNAL | | | | performed at [facility];[address] | g/dL | LAB | | | | [address];[place] | | | | | | [address] | | | | + + + + + + | RDW-CV | 38.1Comment: Testing | 37 - 53 fl | EXTERNAL | | | | performed at [facility];[address] | | LAB | | | | [address];[place] | | | | | | [address] | | | | + + + + + + | Platelet | 58 (L)Comment: Testing | 150 - 400 K/uL | EXTERNAL | | | Count | performed at [facility];[address] | | LAB | | | Plasma | [address];[place] | | | | | | [address] | | | | + + + + + + | MPV | 10.9Comment: Testing | fl | EXTERNAL | | | | performed at [facility];[address] | | LAB | | | | [address];[place] | | | | | | [address] | | | | + + + + + + | Differentia | MANUALComment: Testing | | EXTERNAL | | | l Type | performed at [facility];[address] | | LAB | | | | [address];[place] | | | | | | [address] | | | | + + + + + + | Segmented | 89Comment: Testing | % | EXTERNAL | | | Neutrophils | performed at [facility];[address] | | LAB | | | Manual | [address];[place] | | | | | | [address] | | | | + + + + + + | % Bands | 7Comment: Testing | % | EXTERNAL | | | | performed at [facility];[address] | | LAB | | | | [address];[place] | | | | | | [address] | | | | + + + + + + | Lymphocytes | 2Comment: Testing | % | EXTERNAL | | | Manual | performed at [facility];[address] | | LAB | | | | [address];[place] | | | | | | [address] | | | | + + + + + + | Monocytes | 2Comment: Testing | % | EXTERNAL | | | Manual | performed at [facility];[address] | | LAB | | | | [address];[place] | | | | | | [address] | | | | + + + + + + | Absolute | 13.24 (H)Comment: | 1.90 - 7.40 | EXTERNAL | | | Neutrophils | Testing performed at | K/uL | LAB | | | | [facility];[address];[place] [address] | | | | + + + + + + | Bands | 1.04 (H)Comment: Testing | 0.00 - 0.20 | EXTERNAL | | | Manual | performed at [facility];[address] | K/uL | LAB | | | | [address];[place] | | | | | | [address] | | | | + + + + + + | Absolute | 0.30 (L)Comment: Testing | 1.00 - 3.90 | EXTERNAL | | | Lymphocytes | performed at [facility];[address] | K/uL | LAB | | | | [address];[place] | | | | | | [address] | | | | + + + + + + | Absolute | 0.30Comment: Testing | 0.00 - 0.80 | EXTERNAL | | | Monocytes | performed at [facility];[address] | K/uL | LAB | | | | [address];[place] | | | | | | [address] | | | | + + + + + + | Platelet | DECREASEDComment: | | EXTERNAL | | | Estimate | Testing performed at | | LAB | | | | [facility];[address];[place] [address] | | | | + + + + + + | RBC | RBC AND PLT MORPHOLOGY | | EXTERNAL | | | Morphology | APPEAR NORMALComment: | | LAB | | | | Testing performed at | | | | | | [facility];[address] | | | | | | [facility];[place] [address] | | | | + + + + + + + + | Specimen | + + | Blood specimen | | (specimen) | + + + +---------+ + + | Performing | Address | City/State/Zipcode | Phone Number | | Organization | | | | + +---------+ + + | EXTERNAL LAB | | | | + +---------+ + + TSH (10/03/2015 3:45 AM PDT) + + + + + + | Component | Value | Ref Range | Performed | Pathologist | | | | | At | Signature | + + + + + + | TSH | 0.75Comment: Testing | 0.45 - 5.10 | EXTERNAL | | | | performed at [facility];[address] | uIU/mL | LAB | | | | [address];[place] | | | | | | [address] | | | | + + + + + + + + | Specimen | + + | | + + + +---------+ + + | Performing | Address | City/State/Zipcode | Phone Number | | Organization | | | | + +---------+ + + | EXTERNAL LAB | | | | + +---------+ + + Phosphorus (10/03/2015 3:45 AM PDT) + + + + + + | Component | Value | Ref Range | Performed | Pathologist | | | | | At | Signature | + + + + + + | PHOSPHORUS | 2.9Comment: Testing | 2.3 - 4.8 mg/dL | EXTERNAL | | | | performed at [facility];[address] | | LAB | | | | [address];[place], [place] | | | | | | [address] | | | | + + + + + + + + | Specimen | + + | Blood specimen | | (specimen) | + + + +---------+ + + | Performing | Address | City/State/Zipcode | Phone Number | | Organization | | | | + +---------+ + + | EXTERNAL LAB | | | | + +---------+ + + Magnesium (10/03/2015 3:45 AM PDT) + + + + + + | Component | Value | Ref Range | Performed | Pathologist | | | | | At | Signature | + + + + + + | Magnesium | 2.9 (H)Comment: Testing | 1.7 - 2.4 mg/dL | EXTERNAL | | | | performed at [facility] | | LAB | | | | [address];[place] | | | | | | [address] | | | | + + + + + + + + | Specimen | + + | Blood specimen | | (specimen) | + + + +---------+ + + | Performing | Address | City/State/Zipcode | Phone Number | | Organization | | | | + +---------+ + + | EXTERNAL LAB | | | | + +---------+ + + Hemoglobin A1C (10/03/2015 3:45 AM PDT) + + + + + + | Component | Value | Ref Range | Performed | Pathologist | | | | | At | Signature | + + + + + + | Hemoglobin | 5.8Comment: The [place] | 4.0 - 6.0 % | EXTERNAL | | | A1c | Diabetes Association | | LAB | | | | considers a hemoglobin | | | | | | A1c result of <7.0% to | | | | | | be the goal of diabetic | | | | | | therapy. When results | | | | | | are consistently >8.0%, | | | | | | the ADA suggests | | | | | | reevaluation of the | | | | | | treatment regimen. The | | | | | | testing method used is | | | | | | certified traceable to | | | | | | the Diabetes Control and | | | | | | Complications Trial | | | | | | reference method.Testing | | | | | | performed at [facility], [address] | | | | | | [place] [address] | | | | + + + + + + | Glycohemogl | 120Comment: The ADA | mg/dL | EXTERNAL | | | obin | considers an eAG result | | LAB | | | (GHb),Total | of LT 154 mg/dL to be | | | | | | the goal of diabetic | | | | | | therapy. Estimated | | | | | | Average Glucose | | | | | | calculated from | | | | | | hemoglobin A1c by use of | | | | | | the ADA recommended | | | | | | formula.Testing | | | | | | performed at [facility], [address] | | | | | | [address], | | | | | | [place] [address] | | | | + + + + + + + + | Specimen | + + | Blood specimen | | (specimen) | + + + +---------+ + + | Performing | Address | City/State/Zipcode | Phone Number | | Organization | | | | + +---------+ + + | EXTERNAL LAB | | | | + +---------+ + + Hepatic Function Panel (10/03/2015 3:45 AM PDT) + + + + + + | Component | Value | Ref Range | Performed | Pathologist | | | | | At | Signature | + + + + + + | Protein, | 5.3 (L)Comment: Testing | 6.3 - 8.2 g/dL | EXTERNAL | | | Total | performed at [facility];[address] | | LAB | | | | [address];[place] | | | | | | [address] | | | | + + + + + + | Albumin | 1.5 (L)Comment: Testing | 3.6 - 5.0 g/dL | EXTERNAL | | | | performed at [facility];[address] | | LAB | | | | [address];[place] | | | | | | [address] | | | | + + + + + + | Bilirubin | 1.8 (H)Comment: Testing | 0.1 - 1.5 mg/dL | EXTERNAL | | | Total | performed at [facility];[address] | | LAB | | | | [address];[place] | | | | | | [address] | | | | + + + + + + | Bilirubin | 1.4 (H)Comment: Testing | 0.0 - 0.3 mg/dL | EXTERNAL | | | Direct | performed at [facility];[address] | | LAB | | | | [address];[place] | | | | | | [address] | | | | + + + + + + | ALP, | 120 (H)Comment: Testing | 35 - 115 U/L | EXTERNAL | | | External | performed at [facility];[address] | | LAB | | | | [address];[place] | | | | | | [address] | | | | + + + + + + | AST | 64 (H)Comment: Testing | 10 - 45 U/L | EXTERNAL | | | | performed at [facility];[address] | | LAB | | | | [address];[place] | | | | | | [address] | | | | + + + + + + | ALT | 76 (H)Comment: Testing | 10 - 65 U/L | EXTERNAL | | | | performed at [facility];[address] | | LAB | | | | [address];[place], [place] | | | | | | [address] | | | | + + + + + + + + | Specimen | + + | | + + + +---------+ + + | Performing | Address | City/State/Zipcode | Phone Number | | Organization | | | | + +---------+ + + | EXTERNAL LAB | | | | + +---------+ + + Basic Metabolic Panel (10/03/2015 3:45 AM PDT) + + + + + + | Component | Value | Ref Range | Performed | Pathologist | | | | | At | Signature | + + + + + + | Na | 120 (L)Comment: Testing | 135 - 145 | EXTERNAL | | | | performed at [facility];[address] | mmol/L | LAB | | | | [address];[place] | | | | | | [address] | | | | + + + + + + | K | 4.0Comment: Testing | 3.5 - 4.9 | EXTERNAL | | | | performed at [facility];[address] | mmol/L | LAB | | | | [address];[place] | | | | | | [address] | | | | + + + + + + | Cl | 85 (L)Comment: Testing | 99 - 109 mmol/L | EXTERNAL | | | | performed at [facility];[address] | | LAB | | | | [address];[place] | | | | | | [address] | | | | + + + + + + | CO2 | 24Comment: Testing | 23 - 32 mmol/L | EXTERNAL | | | | performed at [facility];[address] | | LAB | | | | [address];[place] | | | | | | [address] | | | | + + + + + + | Anion Gap | 15Comment: Testing | 5 - 20 mmol/L | EXTERNAL | | | | performed at [facility];[address] | | LAB | | | | [address];[place] | | | | | | [address] | | | | + + + + + + | Glucose, | 91Comment: Testing | 65 - 99 mg/dL | EXTERNAL | | | Fasting | performed at [facility];[address] | | LAB | | | | [address];[place] | | | | | | [address] | | | | + + + + + + | BUN | 65 (H)Comment: Testing | 8 - 25 mg/dL | EXTERNAL | | | | performed at [facility];[address] | | LAB | | | | [address];[place] | | | | | | [address] | | | | + + + + + + | Creatinine | 1.2Comment: Testing | 0.70 - 1.30 | EXTERNAL | | | | performed at [facility];[address] | mg/dL | LAB | | | | [address];[place] | | | | | | [address] | | | | + + + + + + | BUN/Creatin | 54Comment: Testing | | EXTERNAL | | | ine Ratio | performed at [facility];[address] | | LAB | | | | [address];[place] | | | | | | [address] | | | | + + + + + + | Calcium | 6.5 (L)Comment: Testing | 8.5 - 10.5 | EXTERNAL | | | | performed at [facility];[address] | mg/dL | LAB | | | | [address];[place] | | | | | | [address] | | | | + + + + + + | Estimated | >60Comment: GFR <60: | mL/min/1.73m2 | EXTERNAL | | | GFR | CHRONIC KIDNEY DISEASE, | | LAB | | | | IF FOUND OVER A 3 MONTH | | | | | | PERIOD.GFR <15: KIDNEY | | | | | | FAILURE.FOR | | | | | | AMERICANS, MULTIPLY THE | | | | | | CALCULATED GFR BY | | | | | | 1.210.Testing performed | | | | | | at [facility];[address] [place] [address] | | | | | | [facility];[place] [address] | | | | + + + + + + + + | Specimen | + + | Blood specimen | | (specimen) | + + + +---------+ + + | Performing | Address | City/State/Zipcode | Phone Number | | Organization | | | | + +---------+ + + | EXTERNAL LAB | | | | + +---------+ + + POC Glucose (10/03/2015 3:43 AM PDT) + + + + + + | Component | Value | Ref Range | Performed | Pathologist | | | | | At | Signature | + + + + + + | Glucose, | 103 (H)Comment: Testing | 65 - 99 mg/dL | EXTERNAL | | | Fingerstick | performed at [facility];[address] | | LAB | | | | [address];[place], [place] | | | | | | [address] | | | | + + + + + + + + | Specimen | + + | | + + + +---------+ + + | Performing | Address | City/State/Zipcode | Phone Number | | Organization | | | | + +---------+ + + | EXTERNAL LAB | | | | + +---------+ + + POC Glucose (10/03/2015 2:43 AM PDT) + + + + + + | Component | Value | Ref Range | Performed | Pathologist | | | | | At | Signature | + + + + + + | Glucose, | 76Comment: Testing | 65 - 99 mg/dL | EXTERNAL | | | Fingerstick | performed at [facility];[address] | | LAB | | | | [address];[place], [place] | | | | | | [address] | | | | + + + + + + + + | Specimen | + + | | + + + +---------+ + + | Performing | Address | City/State/Zipcode | Phone Number | | Organization | | | | + +---------+ + + | EXTERNAL LAB | | | | + +---------+ + + Sodium (10/03/2015 12:39 AM PDT) + + + + + + | Component | Value | Ref Range | Performed | Pathologist | | | | | At | Signature | + + + + + + | Na | 121 (L)Comment: Testing | 135 - 145 | EXTERNAL | | | | performed at [facility];[address] | mmol/L | LAB | | | | [address];[place], [place] | | | | | | [address] | | | | + + + + + + + + | Specimen | + + | Blood specimen | | (specimen) | + + + +---------+ + + | Performing | Address | City/State/Zipcode | Phone Number | | Organization | | | | + +---------+ + + | EXTERNAL LAB | | | | + +---------+ + + POC Glucose (10/03/2015 12:32 AM PDT) + + + + + + | Component | Value | Ref Range | Performed | Pathologist | | | | | At | Signature | + + + + + + | Glucose, | 129 (H)Comment: Testing | 65 - 99 mg/dL | EXTERNAL | | | Fingerstick | performed at [facility];[address] | | LAB | | | | [address];[place], [place] | | | | | | [address] | | | | + + + + + + + + | Specimen | + + | | + + + +---------+ + + | Performing | Address | City/State/Zipcode | Phone Number | | Organization | | | | + +---------+ + + | EXTERNAL LAB | | | | + +---------+ + + POC Glucose (10/02/2015 10:23 PM PDT) + + + + + + | Component | Value | Ref Range | Performed | Pathologist | | | | | At | Signature | + + + + + + | Glucose, | 139 (H)Comment: Testing | 65 - 99 mg/dL | EXTERNAL | | | Fingerstick | performed at [facility];[address] | | LAB | | | | [address];[place], [place] | | | | | | [address] | | | | + + + + + + + + | Specimen | + + | | + + + +---------+ + + | Performing | Address | City/State/Zipcode | Phone Number | | Organization | | | | + +---------+ + + | EXTERNAL LAB | | | | + +---------+ + + POC Glucose (10/02/2015 9:17 PM PDT) + + + + + + | Component | Value | Ref Range | Performed | Pathologist | | | | | At | Signature | + + + + + + | Glucose, | 127 (H)Comment: Testing | 65 - 99 mg/dL | EXTERNAL | | | Fingerstick | performed at [facility];[address] | | LAB | | | | [address];[place] | | | | | | [address] | | | | + + + + + + + + | Specimen | + + | | + + + +---------+ + + | Performing | Address | City/State/Zipcode | Phone Number | | Organization | | | | + +---------+ + + | EXTERNAL LAB | | | | + +---------+ + + Sodium (10/02/2015 8:08 PM PDT) + + + + + + | Component | Value | Ref Range | Performed | Pathologist | | | | | At | Signature | + + + + + + | Na | 123 (L)Comment: Testing | 135 - 145 | EXTERNAL | | | | performed at [facility];888 | mmol/L | LAB | | | | Geraldine Pickard;[place], [place] | | | | | | [id number] | | | | + + + + + + + + | Specimen | + + | Blood specimen | | (specimen) | + + + +---------+ + + | Performing | Address | City/State/Zipcode | Phone Number | | Organization | | | | + +---------+ + + | EXTERNAL LAB | | | | + +---------+ + + POC Glucose (10/02/2015 8:07 PM PDT) + + + + + + | Component | Value | Ref Range | Performed | Pathologist | | | | | At | Signature | + + + + + + | Glucose, | 137 (H)Comment: Testing | 65 - 99 mg/dL | EXTERNAL | | | Fingerstick | performed at [facility];[address] | | LAB | | | | [address]ine Pick[address];[place] | | | | | | [address] | | | | + + + + + + + + | Specimen | + + | | + + + +---------+ + + | Performing | Address | City/State/Zipcode | Phone Number | | Organization | | | | + +---------+ + + | EXTERNAL LAB | | | | + +---------+ + + POC Glucose (10/02/2015 7:33 PM PDT) + + + + + + | Component | Value | Ref Range | Performed | Pathologist | | | | | At | Signature | + + + + + + | Glucose, | 93Comment: Testing | 65 - 99 mg/dL | EXTERNAL | | | Fingerstick | performed at [facility];[address] | | LAB | | | | [address];[place] | | | | | | [address] | | | | + + + + + + + + | Specimen | + + | | + + + +---------+ + + | Performing | Address | City/State/Zipcode | Phone Number | | Organization | | | | + +---------+ + + | EXTERNAL LAB | | | | + +---------+ + + POC Glucose (10/02/2015 6:20 PM PDT) + + + + + + | Component | Value | Ref Range | Performed | Pathologist | | | | | At | Signature | + + + + + + | Glucose, | 150 (H)Comment: Testing | 65 - 99 mg/dL | EXTERNAL | | | Fingerstick | performed at [facility];888 | | LAB | | | | [address];[place] | | | | | | [address] | | | | + + + + + + + + | Specimen | + + | | + + + +---------+ + + | Performing | Address | City/State/Zipcode | Phone Number | | Organization | | | | + +---------+ + + | EXTERNAL LAB | | | | + +---------+ + + POC Glucose (10/02/2015 5:10 PM PDT) + + + + + + | Component | Value | Ref Range | Performed | Pathologist | | | | | At | Signature | + + + + + + | Glucose, | 145 (H)Comment: Testing | 65 - 99 mg/dL | EXTERNAL | | | Fingerstick | performed at [facility];[address] | | LAB | | | | [address];[place] | | | | | | [address] | | | | + + + + + + + + | Specimen | + + | | + + + +---------+ + + | Performing | Address | City/State/Zipcode | Phone Number | | Organization | | | | + +---------+ + + | EXTERNAL LAB | | | | + +---------+ + + Sodium (10/02/2015 4:14 PM PDT) + + + + + + | Component | Value | Ref Range | Performed | Pathologist | | | | | At | Signature | + + + + + + | Na | 125 (L)Comment: Testing | 135 - 145 | EXTERNAL | | | | performed at [facility];888 | mmol/L | LAB | | | | [address];[place], [place] | | | | | | [address] | | | | + + + + + + + + | Specimen | + + | Blood specimen | | (specimen) | + + + +---------+ + + | Performing | Address | City/State/Zipcode | Phone Number | | Organization | | | | + +---------+ + + | EXTERNAL LAB | | | | + +---------+ + + POC Glucose (10/02/2015 4:11 PM PDT) + + + + + + | Component | Value | Ref Range | Performed | Pathologist | | | | | At | Signature | + + + + + + | Glucose, | 155 (H)Comment: Testing | 65 - 99 mg/dL | EXTERNAL | | | Fingerstick | performed at [facility];[address] | | LAB | | | | [address];[place], [place] | | | | | | [address] | | | | + + + + + + + + | Specimen | + + | | + + + +---------+ + + | Performing | Address | City/State/Zipcode | Phone Number | | Organization | | | | + +---------+ + + | EXTERNAL LAB | | | | + +---------+ + + POC Glucose (10/02/2015 3:06 PM PDT) + + + + + + | Component | Value | Ref Range | Performed | Pathologist | | | | | At | Signature | + + + + + + | Glucose, | 169 (H)Comment: Testing | 65 - 99 mg/dL | EXTERNAL | | | Fingerstick | performed at [facility];[address] | | LAB | | | | [address];[place] | | | | | | [address] | | | | + + + + + + + + | Specimen | + + | | + + + +---------+ + + | Performing | Address | City/State/Zipcode | Phone Number | | Organization | | | | + +---------+ + + | EXTERNAL LAB | | | | + +---------+ + + Sodium (10/02/2015 2:05 PM PDT) + + + + + + | Component | Value | Ref Range | Performed | Pathologist | | | | | At | Signature | + + + + + + | Na | 125 (L)Comment: Testing | 135 - 145 | EXTERNAL | | | | performed at [facility];888 | mmol/L | LAB | | | | [address];[place] | | | | | | [address] | | | | + + + + + + + + | Specimen | + + | Blood specimen | | (specimen) | + + + +---------+ + + | Performing | Address | City/State/Zipcode | Phone Number | | Organization | | | | + +---------+ + + | EXTERNAL LAB | | | | + +---------+ + + POC Glucose (10/02/2015 1:56 PM PDT) + + + + + + | Component | Value | Ref Range | Performed | Pathologist | | | | | At | Signature | + + + + + + | Glucose, | 162 (H)Comment: Testing | 65 - 99 mg/dL | EXTERNAL | | | Fingerstick | performed at [facility];[address] | | LAB | | | | [address];[place], [place] | | | | | | [address] | | | | + + + + + + + + | Specimen | + + | | + + + +---------+ + + | Performing | Address | City/State/Zipcode | Phone Number | | Organization | | | | + +---------+ + + | EXTERNAL LAB | | | | + +---------+ + + POC Glucose (10/02/2015 1:05 PM PDT) + + + + + + | Component | Value | Ref Range | Performed | Pathologist | | | | | At | Signature | + + + + + + | Glucose, | 191 (H)Comment: Testing | 65 - 99 mg/dL | EXTERNAL | | | Fingerstick | performed at [facility];8 | | LAB | | | | [address];[place] | | | | | | [address] | | | | + + + + + + + + | Specimen | + + | | + + + +---------+ + + | Performing | Address | City/State/Zipcode | Phone Number | | Organization | | | | + +---------+ + + | EXTERNAL LAB | | | | + +---------+ + + Hepatitis Panel, Acute (10/02/2015 12:01 PM PDT) + + + + + + | Component | Value | Ref Range | Performed | Pathologist | | | | | At | Signature | + + + + + + | HEP A IGM | NON REACTIVEComment: | | EXTERNAL | | | | Testing performed at | | LAB | | | | [facility], [address] | | | | | | [place] | | | | | | [address] | | | | + + + + + + | HEP B | NON REACTIVEComment: | | EXTERNAL | | | SURFACE | Testing performed at | | LAB | | | ANTIBODY | [facility], [address] | | | | | | [place] | | | | | | [address] | | | | + + + + + + | HEP B CORE | NON REACTIVEComment: | | EXTERNAL | | | IgM | Testing performed at | | LAB | | | | [facility], [address] | | | | | | [place] | | | | | | [address] | | | | + + + + + + | HCV Ab | NON REACTIVEComment: | | EXTERNAL | | | | Testing performed at | | LAB | | | | [facility], [address] | | | | | | [place] | | | | | | [address] | | | | + + + + + + | Hepatitis | No serologic evidence of | | EXTERNAL | | | Interp.: | HAV, HBV, or HCV | | LAB | | | | infection.Comment: | | | | | | Testing performed at | | | | | | [facility], [address] | | | | | | [place] | | | | | | [address] | | | | + + + + + + + + | Specimen | + + | | + + + +---------+ + + | Performing | Address | City/State/Zipcode | Phone Number | | Organization | | | | + +---------+ + + | EXTERNAL LAB | | | | + +---------+ + + Sodium (10/02/2015 12:01 PM PDT) + + + + + + | Component | Value | Ref Range | Performed | Pathologist | | | | | At | Signature | + + + + + + | Na | 125 (L)Comment: Testing | 135 - 145 | EXTERNAL | | | | performed at [facility];888 | mmol/L | LAB | | | | [address];[place], [place] | | | | | | [address] | | | | + + + + + + + + | Specimen | + + | Blood specimen | | (specimen) | + + + +---------+ + + | Performing | Address | City/State/Zipcode | Phone Number | | Organization | | | | + +---------+ + + | EXTERNAL LAB | | | | + +---------+ + + POC Glucose (10/02/2015 11:59 AM PDT) + + + + + + | Component | Value | Ref Range | Performed | Pathologist | | | | | At | Signature | + + + + + + | Glucose, | 205 (H)Comment: Testing | 65 - 99 mg/dL | EXTERNAL | | | Fingerstick | performed at [facility];[address] | | LAB | | | | [address];[place], [place] | | | | | | [address] | | | | + + + + + + + + | Specimen | + + | | + + + +---------+ + + | Performing | Address | City/State/Zipcode | Phone Number | | Organization | | | | + +---------+ + + | EXTERNAL LAB | | | | + +---------+ + + POC Glucose (10/02/2015 11:19 AM PDT) + + + + + + | Component | Value | Ref Range | Performed | Pathologist | | | | | At | Signature | + + + + + + | Glucose, | 196 (H)Comment: Testing | 65 - 99 mg/dL | EXTERNAL | | | Fingerstick | performed at [facility];[address] | | LAB | | | | [address];[place], [place] | | | | | | [address] | | | | + + + + + + + + | Specimen | + + | | + + + +---------+ + + | Performing | Address | City/State/Zipcode | Phone Number | | Organization | | | | + +---------+ + + | EXTERNAL LAB | | | | + +---------+ + + HIV 1 Screen, Rapid (10/02/2015 10:36 AM PDT) + + + + + + | Component | Value | Ref Range | Performed | Pathologist | | | | | At | Signature | + + + + + + | HIV 1 and 2 | NON REACTIVEComment: | | EXTERNAL | | | Ab, Rapid | Testing performed at | | LAB | | | | [facility];[address] | | | | | | [address];[place] [address] | | | | + + + + + + + + | Specimen | + + | | + + + +---------+ + + | Performing | Address | City/State/Zipcode | Phone Number | | Organization | | | | + +---------+ + + | EXTERNAL LAB | | | | + +---------+ + + Sodium (10/02/2015 10:36 AM PDT) + + + + + + | Component | Value | Ref Range | Performed | Pathologist | | | | | At | Signature | + + + + + + | Na | 124 (L)Comment: Testing | 135 - 145 | EXTERNAL | | | | performed at [facility];888 | mmol/L | LAB | | | | [address];[place], [place] | | | | | | [address] | | | | + + + + + + + + | Specimen | + + | Blood specimen | | (specimen) | + + + +---------+ + + | Performing | Address | City/State/Zipcode | Phone Number | | Organization | | | | + +---------+ + + | EXTERNAL LAB | | | | + +---------+ + + POC Glucose (10/02/2015 10:10 AM PDT) + + + + + + | Component | Value | Ref Range | Performed | Pathologist | | | | | At | Signature | + + + + + + | Glucose, | 235 (H)Comment: Testing | 65 - 99 mg/dL | EXTERNAL | | | Fingerstick | performed at [facility];[address] | | LAB | | | | [address];[place] | | | | | | [address] | | | | + + + + + + + + | Specimen | + + | | + + + +---------+ + + | Performing | Address | City/State/Zipcode | Phone Number | | Organization | | | | + +---------+ + + | EXTERNAL LAB | | | | + +---------+ + + Sodium (10/02/2015 7:59 AM PDT) + + + + + + | Component | Value | Ref Range | Performed | Pathologist | | | | | At | Signature | + + + + + + | Na | 125 (L)Comment: Testing | 135 - 145 | EXTERNAL | | | | performed at [facility];[address] | mmol/L | LAB | | | | [address];[place], [place] | | | | | | [address] | | | | + + + + + + + + | Specimen | + + | Blood specimen | | (specimen) | + + + +---------+ + + | Performing | Address | City/State/Zipcode | Phone Number | | Organization | | | | + +---------+ + + | EXTERNAL LAB | | | | + +---------+ + + ECHO Complete (10/02/2015 7:30 AM PDT) + + | Specimen | + + | | + + + + + | Impressions | Performed At | + + + | 1. LV size, wall thickness and systolic function are normal, with an | | | EF of 60%. 2. The diastolic filling pattern indicates impaired | | | relaxation consistent with mild dysfunction (Grade I). 3. The right | | | ventricle is mildly enlarged, but right ventricular systolic function | | | is normal. 4. Moderate tricuspid regurgitation present. 5. There is | | | moderate pulmonary hypertension. The right ventricular systolic | | | pressure (pulmonary artery systolic pressure), as measured by Doppler, | | | is 50.27mmHg. 6. Moderate sized, mobile vegetation attached to the | | | septal tricuspid valve leaflet. | | + + + + + + | Narrative | Performed At | + + + | Patient Name: YANG RIDLEY Date of : 1985 | | | Performing Physician: Quentin Darling | | | | | | INDICATIONS ENDOCARDITIS CONCLUSIONS | | | 1. LV size, wall thickness and systolic function are normal, with an | | | EF of 60%. 2. The diastolic filling pattern indicates impaired | | | relaxation consistent with mild dysfunction (Grade I). 3. The right | | | ventricle is mildly enlarged, but right ventricular systolic function | | | is normal. 4. Moderate tricuspid regurgitation present. 5. There is | | | moderate pulmonary hypertension. The right ventricular systolic | | | pressure (pulmonary artery systolic pressure), as measured by Doppler, | | | is 50.27mmHg. 6. Moderate sized, mobile vegetation attached to the | | | septal tricuspid valve leaflet. FINDINGS -------- ECG rhythm: | | | Sinus rhythm. Study: A 2-dimensional transthoracic echocardiogram | | | with m-mode, spectral and color flow Doppler was perfomed. Study: | | | This was a technically adequate study. Left Ventricle: LV size, wall | | | thickness and systolic function are normal, with an EF of 60%. Left | | | Ventricle: The diastolic filling pattern indicates impaired relaxation | | | consistent with mild dysfunction (Grade I). Right Ventricle: The | | | right ventricle is mildly enlarged measuring between 3.4 - 3.7 cm. | | | Right Ventricle: The right ventricular systolic function is normal. | | | Left Atrium: The left atrial size is normal. Right Atrium: The right | | | atrial size is normal. Aortic Valve: The aortic valve is trileaflet | | | and appears structurally normal. Aortic Valve: There is no evidence | | | of aortic regurgitation. Aortic Valve: There is no evidence of aortic | | | stenosis. 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 Mitral Valve: There is trace mitral regurgitation. | | | Mitral Valve: There is mild calcification of the anterior mitral valve | | | leaflet. Tricuspid Valve: The tricusip valve septal leaflet is | | | moderately thickened. Tricuspid Valve: Moderate tricuspid | | | regurgitation present. Tricuspid Valve: There is moderate pulmonary | | | hypertension. Tricuspid Valve: The right ventricular systolic | | | pressure (pulmonary artery systolic pressure), as measured by Doppler, | | | is 50.27mmHg. Tricuspid Valve: Moderate, mobile vegetation attached | | | to the anterior/septal tricuspid valve leaflets. Pulmonic Valve: | | | Trace pulmonic regurgitation. Pericardium: There is a very small, | | | generalized pericardial effusion present. A very small right | | | Pericardium: pleural effusion is seen. IVC/Hepatic Veins: The IVC is | | | normal size (1.5-2.5cm) and collapses >50% with sniff, consistent with | | | central venous pressures of 5-10mmHg. Aorta: The aortic root, | | | ascending aorta and aortic arch are normal. Mass: No mass visualized | | | Thrombus: No clot visualized Septum: No ASD observed. Septum: No | | | VSD observed. MEASUREMENTS Ao asc: 2.91 cm | | | IVC: 1.87 cm LA Major: 3.86 cm EDV(Teich): 85.37 ml IVSd: | | | 0.78 cm LVIDd: 4.35 cm LVPWd: 0.89 cm LVOT Diam: 2.18 | | | cm %FS: 30.17 % EF(Teich): 57.73 % ESV(Teich): 36.08 ml | | | IVSs: 1.07 cm LVIDs: 3.03 cm LVPWs: 1.63 cm SV(Teich): | | | 49.28 ml RA Major: 3.96 cm RVIDd: 3.06 cm LAESV(A-L): | | | 46.42 ml LAESV Index (A-L): 25.78 ml/m2 LAAs A2C: 17.27 cm2 | | | LAESV A-L A2C: 51.65 ml LAESV MOD A2C: 49.52 ml LALs A2C: | | | 4.90 cm LAAs A4C: 12.70 cm2 LAESV A-L A4C: 34.13 ml LAESV MOD | | | A4C: 29.30 ml LALs A4C: 4.01 cm Ao Diam: 3.24 cm AV Cusp: | | | 2.55 cm LA Diam: 3.34 cm LA/Ao: 1.02 %FS: 32.71 % | | | EDV(Teich): 101.55 ml EF(Teich): 61.13 % ESV(Teich): 39.47 | | | ml IVSd: 0.66 cm IVSs: 0.98 cm LVIDd: 4.68 cm LVIDs: | | | 3.15 cm LVPWd: 0.78 cm LVPWs: 1.61 cm SV(Teich): 62.08 ml | | | D-E Excursion: 2.58 cm E-F Kenton: 0.14 m/s EPSS: 0.06 cm | | | HR: 82.83 BPM AV maxP.35 mmHg AV meanP.23 mmHg AV | | | Vmax: 1.04 m/s AV Vmean: 0.69 m/s AV VTI: 21.52 cm MAGUI | | | Vmax: 3.17 cm2 MAGUI (VTI): 3.16 cm2 AVAI Vmax: 0.00 cm2/m2 | | | AVAI (VTI): 0.00 cm2/m2 LVCI Dopp: 3.25 l/minm2 LVCO Dopp: | | | 5.86 l/min HR: 86.12 BPM LVOT maxP.10 mmHg LVOT meanPG: | | | 1.67 mmHg LVSI Dopp: 37.82 ml/m2 LVSV Dopp: 68.08 ml LVOT | | | Vmax: 0.88 m/s LVOT Vmean: 0.60 m/s LVOT VTI: 18.11 cm MV | | | A Jazlyn: 0.69 m/s MV DecT: 140.76 ms MV E Jazlyn: 0.57 m/s MV | | | E/A Ratio: 0.83 E/E' Av.68 E' Av.15 m/s E/E' Lat: | | | 3.13 E/E' Sept: 4.46 E' Lat: 0.18 m/s E' Sept: 0.12 m/s | | | MV PHT: 38.97 ms MVA By PHT: 5.64 cm2 MV A Dur: 76.12 ms | | | MV maxP.52 mmHg MV meanP.40 mmHg MV Vmax: 0.79 m/s | | | MV Vmean: 0.56 m/s MV VTI: 15.90 cm MVA (VTI): 4.27 cm2 | | | P Vein A: 0.32 m/s P Vein A Dur: 143.02 ms P Vein D: 0.26 | | | m/s P Vein S/D Ratio: 1.25 P Vein S: 0.33 m/s PAEDP: 17.52 | | | mmHg PRend P.52 mmHg PRend Vmax: 1.37 m/s HR: 85.84 | | | BPM PV maxP.75 mmHg PV meanP.06 mmHg PV Vmax: 0.96 | | | m/s PV Vmean: 0.65 m/s PV VTI: 14.93 cm RAP: 10 mmHg | | | RVSP: 50.27 mmHg TR maxP.27 mmHg TR Vmax: 3.17 m/s TV | | | A Jazlyn: 0.82 m/s TV Dec Kenton: 4.67 m/s2 TV Dec Time: | | | 213.59 ms TV E Jazlyn: 0.99 m/s TV E/A Ratio: 1.21 | | | Under Trimmer: RENAN Authenticated by: Quentin Darling Report Date/Time: | | | 10-02-2015 15:22:10 | | + + + + + | Procedure Note | + + | Erasmo Payne Conversion - 11/01/2018 7:23 PM PDT Patient Name: Kim RIDLEY of | | : 1985 Performing Physician: Quentin Garsia | | [facility] INDICATIONS | | -ENDOCARDITIS CONCLUSIONS 1. LV size, wall thickness and systolic function are | | normal, with an EF of 60%.2. The diastolic filling pattern indicates impaired | | relaxation consistent with mild dysfunction (Grade I).3. The right ventricle is mildly | | enlarged, but right ventricular systolic function is normal.4. Moderate tricuspid | | regurgitation present.5. There is moderate pulmonary hypertension. The right | | ventricular systolic pressure (pulmonary artery systolic pressure), as measured by | | Doppler, is 50.27mmHg.6. Moderate sized, mobile vegetation attached to the septal | | tricuspid valve leaflet. FINDINGS--------ECG rhythm: Sinus rhythm.Study: A 2-dimensional | | transthoracic echocardiogram with m-mode, spectral and color flow Doppler was | | perfomed.Study: This was a technically adequate study.Left Ventricle: LV size, wall | | thickness and systolic function are normal, with an EF of 60%.Left Ventricle: The | | diastolic filling pattern indicates impaired relaxation consistent with mild dysfunction | | (Grade I).Right Ventricle: The right ventricle is mildly enlarged measuring between 3.4 | | - 3.7 cm.Right Ventricle: The right ventricular systolic function is normal.Left | | Atrium: The left atrial size is normal.Right Atrium: The right atrial size is | | normal.Aortic Valve: The aortic valve is trileaflet and appears structurally | | normal.Aortic Valve: There is no evidence of aortic regurgitation.Aortic Valve: There is | | no evidence of aortic stenosis.Mitral Valve: 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 | | degeneration.Mitral Valve: There is trace mitral regurgitation.Mitral Valve: There is | | mild calcification of the anterior mitral valve leaflet.Tricuspid Valve: The tricusip | | valve septal leaflet is moderately thickened.Tricuspid Valve: Moderate tricuspid | | regurgitation present.Tricuspid Valve: There is moderate pulmonary | | hypertension.Tricuspid Valve: The right ventricular systolic pressure (pulmonary artery | | systolic pressure), as measured by Doppler, is 50.27mmHg.Tricuspid Valve: Moderate, | | mobile vegetation attached to the anterior/septal tricuspid valve leaflets.Pulmonic | | Valve: Trace pulmonic regurgitation.Pericardium: There is a very small, generalized | | pericardial effusion present. A very small rightPericardium: pleural effusion is | | seen.IVC/Hepatic Veins: The IVC is normal size (1.5-2.5cm) and collapses >50% with | | sniff, consistent with central venous pressures of 5-10mmHg.Aorta: The aortic root, | | ascending aorta and aortic arch are normal.Mass: No mass visualizedThrombus: No clot | | visualizedSeptum: No ASD observed.Septum: No VSD observed. MEASUREMENTS Ao | | asc: 2.91 cmIVC: 1.87 cmLA Major: 3.86 cmEDV(Teich): 85.37 mlIVSd: 0.78 | | cmLVIDd: 4.35 cmLVPWd: 0.89 cmLVOT Diam: 2.18 cm%FS: 30.17 %EF(Teich): 57.73 | | %ESV(Teich): 36.08 mlIVSs: 1.07 cmLVIDs: 3.03 cmLVPWs: 1.63 cmSV(Teich): 49.28 | | mlRA Major: 3.96 cmRVIDd: 3.06 cmLAESV(A-L): 46.42 mlLAESV Index (A-L): 25.78 | | ml/m2LAAs A2C: 17.27 [id number] A-L A2C: 51.65 mlLAESV MOD A2C: 49.52 mlLALs A2C: | | 4.90 cmLAAs A4C: 12.70 [id number] A-L A4C: 34.13 mlLAESV MOD A4C: 29.30 mlLALs A4C: | | 4.01 cmAo Diam: 3.24 cmAV Cusp: 2.55 cmLA Diam: 3.34 cmLA/Ao: 1.02%FS: 32.71 | | %EDV(Teich): 101.55 mlEF(Teich): 61.13 %ESV(Teich): 39.47 mlIVSd: 0.66 cmIVSs: | | 0.98 cmLVIDd: 4.68 cmLVIDs: 3.15 cmLVPWd: 0.78 cmLVPWs: 1.61 cmSV(Teich): | | 62.08 mlD-E Excursion: 2.58 cmE-F Kenton: 0.14 m/sEPSS: 0.06 cmHR: 82.83 BPMAV | | maxP.35 mmHgAV meanP.23 mmHgAV Vmax: 1.04 m/Sofiya Vmean: 0.69 m/Sofiya VTI: | | 21.52 cmAVA Vmax: 3.17 cm2AVA (VTI): 3.16 [id number] Vmax: 0.00 cm2/m2AVAI (VTI): | | 0.00 cm2/m2LVCI Dopp: 3.25 l/jzvd3OTAL Dopp: 5.86 l/minHR: 86.12 BPMLVOT maxPG: | | 3.10 mmHgLVOT meanP.67 mmHgLVSI Dopp: 37.82 ml/m2LVSV Dopp: 68.08 mlLVOT Vmax: | | 0.88 m/sLVOT Vmean: 0.60 m/sLVOT VTI: 18.11 cmMV A Jazlyn: 0.69 m/sMV DecT: | | 140.76 msMV E Jazlyn: 0.57 m/sMV E/A Ratio: 0.83E/E' Av.68E' Av.15 m/sE/E' | | Lat: 3.13E/E' Sept: 4.46E' Lat: 0.18 m/sE' Sept: 0.12 m/sMV PHT: 38.97 msMVA | | By PHT: 5.64 cm2MV A Dur: 76.12 msMV maxP.52 mmHgMV meanP.40 mmHgMV | | Vmax: 0.79 m/sMV Vmean: 0.56 m/sMV VTI: 15.90 cmMVA (VTI): 4.27 cm2P Vein A: | | 0.32 m/sP Vein A Dur: 143.02 msP Vein D: 0.26 m/sP Vein S/D Ratio: 1.25P Vein S: | | 0.33 m/sPAEDP: 17.52 mmHgPRend P.52 mmHgPRend Vmax: 1.37 m/sHR: 85.84 BPMPV | | maxP.75 mmHgPV meanP.06 mmHgPV Vmax: 0.96 m/sPV Vmean: 0.65 m/sPV VTI: | | 14.93 cmRAP: 10 mmHgRVSP: 50.27 mmHgTR maxP.27 mmHgTR Vmax: 3.17 m/sTV A | | Jazlyn: 0.82 m/sTV Dec Kenton: 4.67 m/s2TV Dec Time: 213.59 msTV E Jazlyn: 0.99 m/sTV | | E/A Ratio: 1.21 Under Trimmer: Jalenticated by: Quentin Tian Date/Time: | | 10-02-2015 15:22:10 IMPRESSION: 1. LV size, wall thickness and systolic function are | | normal, with an EF of 60%.2. The diastolic filling pattern indicates impaired relaxation | | consistent with mild dysfunction (Grade I).3. The right ventricle is mildly enlarged, | | but right ventricular systolic function is normal.4. Moderate tricuspid regurgitation | | present.5. There is moderate pulmonary hypertension. The right ventricular systolic | | pressure (pulmonary artery systolic pressure), as measured by Doppler, is 50.27mmHg.6. | | Moderate sized, mobile vegetation attached to the septal tricuspid valve leaflet. | |IVSs: 1.07 cm | |LVIDs: 3.03 cm | |LVPWs: 1.63 cm | |SV(Teich): 49.28 ml | |RA Major: 3.96 cm | |RVIDd: 3.06 cm | |LAESV(A-L): 46.42 ml | |LAESV Index (A-L): 25.78 ml/m2 | |LAAs A2C: 17.27 cm2 | |LAESV A-L A2C: 51.65 ml | |LAESV MOD A2C: 49.52 ml | |LALs A2C: 4.90 cm | |LAAs A4C: 12.70 cm2 | |LAESV A-L A4C: 34.13 ml | |LAESV MOD A4C: 29.30 ml | |LALs A4C: 4.01 cm | |Ao Diam: 3.24 cm | |AV Cusp: 2.55 cm | |LA Diam: 3.34 cm | |LA/Ao: 1.02 | |%FS: 32.71 % | |EDV(Teich): 101.55 ml | |EF(Teich): 61.13 % | |ESV(Teich): 39.47 ml | |IVSd: 0.66 cm | |IVSs: 0.98 cm | |LVIDd: 4.68 cm | |LVIDs: 3.15 cm | |LVPWd: 0.78 cm | |LVPWs: 1.61 cm | |SV(Teich): 62.08 ml | |D-E Excursion: 2.58 cm | |E-F Kenton: 0.14 m/s | |EPSS: 0.06 cm | |HR: 82.83 BPM | |AV maxP.35 mmHg | |AV meanP.23 mmHg | |AV Vmax: 1.04 m/s | |AV Vmean: 0.69 m/s | |AV VTI: 21.52 cm | |MAGUI Vmax: 3.17 cm2 | |MAGUI (VTI): 3.16 cm2 | |AVAI Vmax: 0.00 cm2/m2 | |AVAI (VTI): 0.00 cm2/m2 | |LVCI Dopp: 3.25 l/minm2 | |LVCO Dopp: 5.86 l/min | |HR: 86.12 BPM | |LVOT maxP.10 mmHg | |LVOT meanP.67 mmHg | |LVSI Dopp: 37.82 ml/m2 | |LVSV Dopp: 68.08 ml | |LVOT Vmax: 0.88 m/s | |LVOT Vmean: 0.60 m/s | |LVOT VTI: 18.11 cm | |MV A Jazlyn: 0.69 m/s | |MV DecT: 140.76 ms | |MV E Jazlyn: 0.57 m/s | |MV E/A Ratio: 0.83 | |E/E' Av.68 | |E' Av.15 m/s | |E/E' Lat: 3.13 | |E/E' Sept: 4.46 | |E' Lat: 0.18 m/s | |E' Sept: 0.12 m/s | |MV PHT: 38.97 ms | |MVA By PHT: 5.64 cm2 | |MV A Dur: 76.12 ms | |MV maxP.52 mmHg | |MV meanP.40 mmHg | |MV Vmax: 0.79 m/s | |MV Vmean: 0.56 m/s | |MV VTI: 15.90 cm | |MVA (VTI): 4.27 cm2 | |P Vein A: 0.32 m/s | |P Vein A Dur: 143.02 ms | |P Vein D: 0.26 m/s | |P Vein S/D Ratio: 1.25 | |P Vein S: 0.33 m/s | |PAEDP: 17.52 mmHg | |PRend P.52 mmHg | |PRend Vmax: 1.37 m/s | |HR: 85.84 BPM | |PV maxP.75 mmHg | |PV meanP.06 mmHg | |PV Vmax: 0.96 m/s | |PV Vmean: 0.65 m/s | |PV VTI: 14.93 cm | |RAP: 10 mmHg | |RVSP: 50.27 mmHg | |TR maxP.27 mmHg | |TR Vmax: 3.17 m/s | |TV A Jazlyn: 0.82 m/s | |TV Dec Kenton: 4.67 m/s2 | |TV Dec Time: 213.59 ms | |TV E Jazlyn: 0.99 m/s | |TV E/A Ratio: 1.21 | | | |Under Trimmer: RENAN | |Authenticated by: Quentin Darling | |Report Date/Time: 10-02-2015 15:22:10 | | | |IMPRESSION: | |1. LV size, wall thickness and systolic function are normal, with an EF of 60%. | |2. The diastolic filling pattern indicates impaired relaxation consistent with mild dysfunc tion (Grade I). | |3. The right ventricle is mildly enlarged, but right ventricular systolic function is dorothy l. | |4. Moderate tricuspid regurgitation present. | |5. There is moderate pulmonary hypertension. The right ventricular systolic pressure (pul monary artery systolic pressure), as measured by Doppler, is 50.27mmHg. | |6. Moderate sized, mobile vegetation attached to the septal tricuspid valve leaflet. | + + POC Glucose (10/02/2015 6:12 AM PDT) + + + + + + | Component | Value | Ref Range | Performed | Pathologist | | | | | At | Signature | + + + + + + | Glucose, | 200 (H)Comment: Testing | 65 - 99 mg/dL | EXTERNAL | | | Fingerstick | performed at [facility];[address] | | LAB | | | | [address];[place], [place] | | | | | | [address] | | | | + + + + + + + + | Specimen | + + | | + + + +---------+ + + | Performing | Address | City/State/Zipcode | Phone Number | | Organization | | | | + +---------+ + + | EXTERNAL LAB | | | | + +---------+ + + Sodium (10/02/2015 6:08 AM PDT) + + + + + + | Component | Value | Ref Range | Performed | Pathologist | | | | | At | Signature | + + + + + + | Na | 126 (L)Comment: Testing | 135 - 145 | EXTERNAL | | | | performed at [facility], [address] | mmol/L | LAB | | | | [address], | | | | | | [place] [address] | | | | + + + + + + + + | Specimen | + + | Blood specimen | | (specimen) | + + + +---------+ + + | Performing | Address | City/State/Zipcode | Phone Number | | Organization | | | | + +---------+ + + | EXTERNAL LAB | | | | + +---------+ + + XR Chest 1 Vw (10/02/2015 5:28 AM PDT) + + | Specimen | + + | | + + + + + | Impressions | Performed At | + + + | 1. Stable positioning of support tubes and lines. 2. Unchanged | | | multifocal opacities with bilateral effusions. Imaging findings may | | | reflect stigmata of septic pulmonary embolus. Electronically | | | signed by Jet Melo MD on 10/02/2015 7:14 AM | | + + + + + + | Narrative | Performed At | + + + | YANG RIDLEY 1985 30 years XR CHEST 1 VIEW 10/02/2015 5:28 | | | AM INDICATION: Sepsis, tube and line positioning COMPARISON: | | | 10/01/2015 TECHNIQUE: Chest 1 view, AP view of the chest | | | FINDINGS: Support tubes and lines are stable. The cardiomediastinal | | | contours are within normal limits. There is no pneumothorax. Hazy | | | opacities are demonstrated throughout the lung bilaterally. Bilateral | | | small pleural effusions are unchanged. | | + + + + + | Procedure Note | + + | Elmer, Rad Conversion - 11/01/2018 7:23 PM PDT YANG RIDLEY1985 30 yearsXR CHEST 1 | | VIEW10/02/2015 5:28 AM INDICATION: Sepsis, tube and line positioning COMPARISON: | | 10/01/2015 TECHNIQUE: Chest 1 view, AP view of the chest FINDINGS: Support tubes and | | lines are stable. The cardiomediastinal contours are within normal limits. There is no | | pneumothorax. Hazy opacities are demonstrated throughout the lung bilaterally. Bilateral | | small pleural effusions are unchanged. IMPRESSION: 1. Stable positioning of support | | tubes and lines.2. Unchanged multifocal opacities with bilateral effusions. Imaging | | findings may reflect stigmata of septic pulmonary embolus. | | | |TECHNIQUE: Chest 1 view, AP view of the chest | | | |FINDINGS: Support tubes and lines are stable. The cardiomediastinal contours are within no rmal limits. There is no pneumothorax. Hazy opacities are demonstrated throughout the lung b ilaterally. Bilateral small pleural effusions are unchanged. | | | |IMPRESSION: | |1. Stable positioning of support tubes and lines. | |2. Unchanged multifocal opacities with bilateral effusions. Imaging findings may reflect s tigmata of septic pulmonary embolus. | | | | | + + Procalcitonin (10/02/2015 3:30 AM PDT) + + + + + + | Component | Value | Ref Range | Performed | Pathologist | | | | | At | Signature | + + + + + + | PROCALCITON | 24.77 (H)Comment: | ng/mL | EXTERNAL | | | IN | INTERPRETIVE | | LAB | | | | INFORMATION: | | | | | | PROCALCITONIN PCT <= | | | | | | 0.5 ng/mL: Low risk | | | | | | for progression to | | | | | | severe systemic | | | | | | bacterial infection | | | | | | (severe sepsis/septic | | | | | | shock). Does not | | | | | | exclude an infection, | | | | | | because localized | | | | | | infections may be | | | | | | associated with such low | | | | | | levels. If PCT is | | | | | | measured very early | | | | | | after bacterial | | | | | | challenge (usually <6 | | | | | | hours), results may | | | | | | still be low and | | | | | | should re-assess PCT | | | | | | 6-24 hours later. PCT | | | | | | >0.5 and <= 2 ng/mL: | | | | | | Moderate risk for | | | | | | progression to severe | | | | | | systemic infection | | | | | | (severe sepsis/septic | | | | | | shock). Other | | | | | | conditions are known | | | | | | to elevate PCT, patient | | | | | | should be closely | | | | | | monitored both | | | | | | clinically and by | | | | | | re-assessing PCT | | | | | | within 6-24 hours. PCT > | | | | | | 2 ng/mL: High | | | | | | likelihood for | | | | | | progression to severe | | | | | | systemic bacterial | | | | | | infection (severe | | | | | | sepsis/septic shock). | | | | | | PCT >= 10 ng/mL: | | | | | | High likelihood of | | | | | | severe sepsis or septic | | | | | | shock.Testing performed | | | | | | at [facility];[address] [place] [address] | | | | | | [facility];[place] [address] | | | | + + + + + + + + | Specimen | + + | | + + + +---------+ + + | Performing | Address | City/State/Zipcode | Phone Number | | Organization | | | | + +---------+ + + | EXTERNAL LAB | | | | + +---------+ + + Protime INR (10/02/2015 3:30 AM PDT) + + + + + + | Component | Value | Ref Range | Performed | Pathologist | | | | | At | Signature | + + + + + + | INR | 1.7Comment: REFERENCE | | EXTERNAL | | | | RANGE:0.9 - 1.2 | | LAB | | | | NON-ANTICOAGULATED2.0 | | | | | | - 3.0 ALL OTHER | | | | | | THERAPEUTIC | | | | | | INDICATIONS2.5 - 3.5 | | | | | | MECHANICAL HEART VALVES, | | | | | | RECURRENT OR SYSTEMIC | | | | | | EMBOLISMTesting | | | | | | performed at [facility] | | | | | | [address] [facility];[place], [place] | | | | | | [address] | | | | + + + + + + + + | Specimen | + + | Blood specimen | | (specimen) | + + + +---------+ + + | Performing | Address | City/State/Zipcode | Phone Number | | Organization | | | | + +---------+ + + | EXTERNAL LAB | | | | + +---------+ + + External Lab: CBC (10/02/2015 3:30 AM PDT) + + + + + + | Component | Value | Ref Range | Performed | Pathologist | | | | | At | Signature | + + + + + + | WBC | 12.62 (H)Comment: | 3.80 - 11.00 | EXTERNAL | | | | Testing performed at | K/uL | LAB | | | | [facility], [address] | | | | | | [place] | | | | | | [address] | | | | + + + + + + | Non- | 3.76 (L)Comment: Testing | 4.20 - 5.70 | EXTERNAL | | | Red Blood | performed at [facility], [address] | M/uL | LAB | | | Cells | [address], | | | | | Counted | [place] [address] | | | | + + + + + + | Hemoglobin | 10.1 (L)Comment: Testing | 13.2 - 17.0 | EXTERNAL | | | | performed at [facility], [address] | g/dL | LAB | | | | [address], | | | | | | [place] [address] | | | | + + + + + + | Hematocrit, | 31.0 (L)Comment: Testing | 39.0 - 50.0 % | EXTERNAL | | | POC | performed at [facility], [address] | | LAB | | | | [address], | | | | | | [place] [address] | | | | + + + + + + | MCV | 82.5Comment: Testing | 80.0 - 100.0 fl | EXTERNAL | | | | performed at [facility], [address] | | LAB | | | | [address], | | | | | | [place] [address] | | | | + + + + + + | MCH | 26.8 (L)Comment: Testing | 27.0 - 34.0 pg | EXTERNAL | | | | performed at [facility], [address] | | LAB | | | | [address], | | | | | | [place] [address] | | | | + + + + + + | MCHC | 32.4Comment: Testing | 32.0 - 35.5 | EXTERNAL | | | | performed at [facility], [address] | g/dL | LAB | | | | [address], | | | | | | [place] [address] | | | | + + + + + + | RDW-CV | 39.8Comment: Testing | 37 - 53 fl | EXTERNAL | | | | performed at [facility], [address] | | LAB | | | | [address], | | | | | | [place] [address] | | | | + + + + + + | Platelet | 35 (LL)Comment: RESULT | 150 - 400 K/uL | EXTERNAL | | | Count | READ BACK BY: ROSA MARIA | | LAB | | | Plasma | FLOOR SUPERVISOR AT 0436 ON | | | | | | 10/02/2015 Testing | | | | | | performed at [facility], [address] | | | | | | [address], | | | | | | [place] [address] | | | | + + + + + + | MPV | 10.6Comment: Testing | fl | EXTERNAL | | | | performed at [facility], [address] | | LAB | | | | [address], | | | | | | [place] [address] | | | | + + + + + + | Differentia | MANUALComment: Testing | | EXTERNAL | | | l Type | performed at [facility], [address] | | LAB | | | | [address], | | | | | | [place] [address] | | | | + + + + + + | Segmented | 89Comment: Testing | % | EXTERNAL | | | Neutrophils | performed at [facility], [address] | | LAB | | | Manual | [address], | | | | | | [place] [address] | | | | + + + + + + | Lymphocytes | 6Comment: Testing | % | EXTERNAL | | | Manual | performed at [facility], [address] | | LAB | | | | [address], | | | | | | [place] [address] | | | | + + + + + + | Monocytes | 5Comment: Testing | % | EXTERNAL | | | Manual | performed at [facility], [address] | | LAB | | | | [address], | | | | | | [place] [address] | | | | + + + + + + | Absolute | 11.23 (H)Comment: | 1.90 - 7.40 | EXTERNAL | | | Neutrophils | Testing performed at | K/uL | LAB | | | | [facility], [address] | | | | | | [place] | | | | | | [address] | | | | + + + + + + | Absolute | 0.76 (L)Comment: Testing | 1.00 - 3.90 | EXTERNAL | | | Lymphocytes | performed at [facility], [address] | K/uL | LAB | | | | [address], | | | | | | [place] [address] | | | | + + + + + + | Absolute | 0.63Comment: Testing | 0.00 - 0.80 | EXTERNAL | | | Monocytes | performed at [facility], [address] | K/uL | LAB | | | | [address], | | | | | | [place] [address] | | | | + + + + + + | RBC | RBC AND PLT MORPHOLOGY | | EXTERNAL | | | Morphology | APPEAR NORMALComment: | | LAB | | | | Testing performed at | | | | | | [facility], [address] [facility] | | | | | | [place], [place] | | | | | | [address] | | | | + + + + + + + + | Specimen | + + | Blood specimen | | (specimen) | + + + +---------+ + + | Performing | Address | City/State/Zipcode | Phone Number | | Organization | | | | + +---------+ + + | EXTERNAL LAB | | | | + +---------+ + + Phosphorus (10/02/2015 3:30 AM PDT) + + + + + + | Component | Value | Ref Range | Performed | Pathologist | | | | | At | Signature | + + + + + + | PHOSPHORUS | 5.9 (H)Comment: Testing | 2.3 - 4.8 mg/dL | EXTERNAL | | | | performed at [facility];[address] | | LAB | | | | [address];[place], [place] | | | | | | [address] | | | | + + + + + + + + | Specimen | + + | Blood specimen | | (specimen) | + + + +---------+ + + | Performing | Address | City/State/Zipcode | Phone Number | | Organization | | | | + +---------+ + + | EXTERNAL LAB | | | | + +---------+ + + Magnesium (10/02/2015 3:30 AM PDT) + + + + + + | Component | Value | Ref Range | Performed | Pathologist | | | | | At | Signature | + + + + + + | Magnesium | 3.1 (H)Comment: Testing | 1.7 - 2.4 mg/dL | EXTERNAL | | | | performed at [facility] | | LAB | | | | [address];[place] | | | | | | [address] | | | | + + + + + + + + | Specimen | + + | Blood specimen | | (specimen) | + + + +---------+ + + | Performing | Address | City/State/Zipcode | Phone Number | | Organization | | | | + +---------+ + + | EXTERNAL LAB | | | | + +---------+ + + Hepatic Function Panel (10/02/2015 3:30 AM PDT) + + + + + + | Component | Value | Ref Range | Performed | Pathologist | | | | | At | Signature | + + + + + + | Protein, | 5.9 (L)Comment: Testing | 6.3 - 8.2 g/dL | EXTERNAL | | | Total | performed at [facility];[address] | | LAB | | | | [address];[place] | | | | | | [address] | | | | + + + + + + | Albumin | 1.7 (L)Comment: Testing | 3.6 - 5.0 g/dL | EXTERNAL | | | | performed at [facility];[address] | | LAB | | | | [address];[place] | | | | | | [address] | | | | + + + + + + | Bilirubin | 3.4 (H)Comment: Testing | 0.1 - 1.5 mg/dL | EXTERNAL | | | Total | performed at [facility];[address] | | LAB | | | | [address];[place] | | | | | | [address] | | | | + + + + + + | Bilirubin | 2.8 (H)Comment: Testing | 0.0 - 0.3 mg/dL | EXTERNAL | | | Direct | performed at [facility];[address] | | LAB | | | | [address];[place] | | | | | | [address] | | | | + + + + + + | ALP, | 142 (H)Comment: Testing | 35 - 115 U/L | EXTERNAL | | | External | performed at [facility];[address] | | LAB | | | [address];[place] | | | | | | [address] | | | | + + + + + + | AST | 176 (H)Comment: Testing | 10 - 45 U/L | EXTERNAL | | | | performed at [facility];[address] | | LAB | | | | [address];[place] | | | | | | [address] | | | | + + + + + + | ALT | 133 (H)Comment: Testing | 10 - 65 U/L | EXTERNAL | | | | performed at [facility];[address] | | LAB | | | | [address];[place] | | | | | | [address] | | | | + + + + + + + + | Specimen | + + | | + + + +---------+ + + | Performing | Address | City/State/Zipcode | Phone Number | | Organization | | | | + +---------+ + + | EXTERNAL LAB | | | | + +---------+ + + Basic Metabolic Panel (10/02/2015 3:30 AM PDT) + + + + + + | Component | Value | Ref Range | Performed | Pathologist | | | | | At | Signature | + + + + + + | Na | 124 (L)Comment: Testing | 135 - 145 | EXTERNAL | | | | performed at [facility];[address] | mmol/L | LAB | | | | [address];[place] | | | | | | [address] | | | | + + + + + + | K | 4.0Comment: Testing | 3.5 - 4.9 | EXTERNAL | | | | performed at [facility];[address] | mmol/L | LAB | | | | [address];[place] | | | | | | [address] | | | | + + + + + + | Cl | 88 (L)Comment: Testing | 99 - 109 mmol/L | EXTERNAL | | | | performed at [facility];[address] | | LAB | | | | [address];[place] | | | | | | [address] | | | | + + + + + + | CO2 | 24Comment: Testing | 23 - 32 mmol/L | EXTERNAL | | | | performed at [facility];[address] | | LAB | | | | [address];[place] | | | | | | [address] | | | | + + + + + + | Anion Gap | 15Comment: Testing | 5 - 20 mmol/L | EXTERNAL | | | | performed at [facility];[address] | | LAB | | | | [address];[place] | | | | | | [address] | | | | + + + + + + | Glucose, | 143 (H)Comment: Testing | 65 - 99 mg/dL | EXTERNAL | | | Fasting | performed at [facility];[address] | | LAB | | | [address];[place] | | | | | | [address] | | | | + + + + + + | BUN | 70 (H)Comment: Testing | 8 - 25 mg/dL | EXTERNAL | | | | performed at [facility];[address] | | LAB | | | | [address];[place] | | | | | | [address] | | | | + + + + + + | Creatinine | 1.5 (H)Comment: Testing | 0.70 - 1.30 | EXTERNAL | | | | performed at [facility];[address] | mg/dL | LAB | | | | [address];[place] | | | | | | [address] | | | | + + + + + + | BUN/Creatin | 47Comment: Testing | | EXTERNAL | | | ine Ratio | performed at [facility];[address] | | LAB | | | | [address];[place] | | | | | | [address] | | | | + + + + + + | Calcium | 7.1 (L)Comment: Testing | 8.5 - 10.5 | EXTERNAL | | | | performed at [facility];[address] | mg/dL | LAB | | | | [address];[place] | | | | | | [address] | | | | + + + + + + | Estimated | 58 (L)Comment: GFR <60: | mL/min/1.73m2 | EXTERNAL | | | GFR | CHRONIC KIDNEY DISEASE, | | LAB | | | | IF FOUND OVER A 3 MONTH | | | | | | PERIOD.GFR <15: KIDNEY | | | | | | FAILURE.FOR | | | | | | AMERICANS, MULTIPLY THE | | | | | | CALCULATED GFR BY | | | | | | 1.210.Testing performed | | | | | | at [facility];[address] [place] [address] | | | | | | [facility];[place] [address] | | | | + + + + + + + + | Specimen | + + | Blood specimen | | (specimen) | + + + +---------+ + + | Performing | Address | City/State/Zipcode | Phone Number | | Organization | | | | + +---------+ + + | EXTERNAL LAB | | | | + +---------+ + + MRI Lumbar Spine wo Contrast (10/02/2015 3:06 AM PDT) + + | Specimen | + + | | + + + + + | Impressions | Performed At | + + + | Degenerative disk disease at L5-S1. No significant central canal | | | stenosis. Other disk spaces are unremarkable . Evaluation for | | | epidural abscess is limited without IV contrast. Bilateral | | | posterior paraspinal muscular edema , nonspecific. No fluid collection | | | amenable to drainage is identified. [facility] Electronically | | | signed by Maegan Maddox MD on Oct 02 2015 5:03AM Referring Provider | | | Line: [phone] ID: [id number] | | + + + + + + | Narrative | Performed At | + + + | EXAM: MRI LUMBAR SPINE WITHOUT CONTRAST EXAM DATE: 10/02/2015 | | | 03:07 AM. CLINICAL HISTORY: Back pain. Sepsis. Endocarditis. | | | COMPARISON: None. TECHNIQUE: Multiplanar, multisequence | | | T1-weighted and fluid-sensitive sequences of the lumbar spine from T12 | | | to S1 without contrast. Other: None. FINDINGS: Spinal Cord: The | | | conus terminates at L1. No signal abnormality in the visualized spinal | | | cord. Alignment: Normal. No scoliosis or spondylolisthesis. | | | Bone Marrow: Five hdv-rft-[id number] lumbar vertebral bodies are assumed. | | | No gross fractures or bone lesions. No bone marrow edema. Disk | | | Levels/Facets: T12-L1: Unremarkable. L1-L2: Unremarkable. | | | L2-L3: Unremarkable. L3-L4: Unremarkable. L4-L5: Unremarkable. | | | L5-S1: Mild to moderate disk space narrowing . Bulging disk | | | without significant appearing central stenosis. Mild bilateral | | | foraminal stenosis. Musculature: Roughly symmetric edema is | | | present in the posterior paraspinal musculature bilaterally from L2-L3 | | | through L5-S1, inclusive. No fluid collection amenable to drainage is | | | identified. Other: The visualized pelvic cavity is unremarkable. | | | | | + + + + + | Procedure Note | + + | Erasmo Payne Conversion - 11/01/2018 7:23 PM PDT EXAM:MRI LUMBAR SPINE WITHOUT CONTRAST | | EXAM DATE: 10/02/2015 03:07 AM. CLINICAL HISTORY: Back pain. Sepsis. Endocarditis. | | COMPARISON: None. TECHNIQUE: Multiplanar, multisequence T1-weighted and fluid-sensitive | | sequences of the lumbar spine from T12 to S1 without contrast. Other: None. | | FINDINGS:Spinal Cord: The conus terminates at L1. No signal abnormality in the | | visualized spinal cord. Alignment: Normal. No scoliosis or spondylolisthesis. Bone | | Marrow: Five qju-jtd-clwjolk lumbar vertebral bodies are assumed. No gross fractures or | | bone lesions. No bone marrow edema. Disk Levels/Facets:T12-L1: Unremarkable. L1-L2: | | Unremarkable. L2-L3: Unremarkable. L3-L4: Unremarkable. L4-L5: Unremarkable. L5-S1: Mild | | to moderate disk space narrowing . Bulging disk without significant appearing central | | stenosis. Mild bilateral foraminal stenosis. Musculature: Roughly symmetric edema is | | present in the posterior paraspinal musculature bilaterally from L2-L3 through L5-S1, | | inclusive. No fluid collection amenable to drainage is identified. Other: The visualized | | pelvic cavity is unremarkable. IMPRESSION: Degenerative disk disease at L5-S1. No | | significant central canal stenosis. Other disk spaces are unremarkable . Evaluation for | | epidural abscess is limited without IV contrast. Bilateral posterior paraspinal muscular | | edema , nonspecific. No fluid collection amenable to drainage is identified. [facility] | | Electronically signed by Maegan Maddox MD on Oct 02 2015 5:03AM Referring Provider Line: | | [phone] ID: [id number] | |T12-L1: Unremarkable. | | | |L1-L2: Unremarkable. | | | |L2-L3: Unremarkable. | | | |L3-L4: Unremarkable. | | | |L4-L5: Unremarkable. | | | |L5-S1: Mild to moderate disk space narrowing . Bulging disk without significant appearing c entral stenosis. Mild bilateral foraminal stenosis. | | | |Musculature: Roughly symmetric edema is present in the posterior paraspinal musculature jose aterally from L2-L3 through L5-S1, inclusive. No fluid collection amenable to drainage is id entified. | | | |Other: The visualized pelvic cavity is unremarkable. | | | |IMPRESSION: | | | |Degenerative disk disease at L5-S1. No significant central canal stenosis. Other disk space s are unremarkable . | | | |Evaluation for epidural abscess is limited without IV contrast. | | | |Bilateral posterior paraspinal muscular edema , nonspecific. No fluid collection amenable t o drainage is identified. | | | | | |[facility] | | | | Electronically signed by Maegan Maddox MD on Oct 02 2015 5:03AM Referring Provider Line: [phone] ID: [id number] | + + MRI Thoracic Spine wo Contrast (10/02/2015 2:46 AM PDT) + + | Specimen | + + | | + + + + + | Impressions | Performed At | + + + | No significant abnormality identified in the thoracic spine . | | | Evaluation for epidural abscess is limited without IV contrast. | | | Right-sided pleural effusion . Multiple cavitating lung nodules. This | | | is suboptimally imaged with this technique. Consider correlation with | | | CT. [facility] Electronically signed by Maegan Maddox MD on Oct 01 | | | 2015 5:00AM Referring Provider Line: [phone] ID: [id number] | | + + + + + + | Narrative | Performed At | + + + | EXAM: MRI THORACIC SPINE WITHOUT CONTRAST EXAM DATE: 10/02/2015 | | | 02:47 AM. CLINICAL HISTORY: Back pain. Endocarditis, sepsis . | | | COMPARISONS: None. TECHNIQUE: Multiplanar, multisequence | | | T1-weighted and fluid-sensitive sequences of the thoracic spine from | | | C7 to L1 without contrast. Other: None. FINDINGS: Spinal Cord: No | | | signal abnormality in the visualized spinal cord. Alignment: | | | Normal. No scoliosis or spondylolisthesis. Bone Marrow: No gross | | | fractures or bone lesion. No bone marrow edema. Disk | | | Levels/Facets: C7-T1: Unremarkable. T1-T2: Unremarkable. | | | T2-T3: Unremarkable. T3-T4: Unremarkable. T4-T5: Unremarkable. | | | T5-T6: Unremarkable. T6-T7: Unremarkable. T7-T8: | | | Unremarkable. T8-T9: Unremarkable. T9-T10: Unremarkable. | | | T10-T11: Unremarkable. T11-T12: Unremarkable. T12-L1: | | | Unremarkable. Musculature: Normal. No edema or fatty atrophy. | | | Other: Right-sided pleural effusion. Multiple pulmonary nodules are | | | seen, likely with cavitation . This is suboptimally imaged with this | | | technique. | | + + + + + | Procedure Note | + + | Erasmo Payne Conversion - 11/01/2018 7:23 PM PDT EXAM:MRI THORACIC SPINE WITHOUT | | CONTRAST EXAM DATE: 10/02/2015 02:47 AM. CLINICAL HISTORY: Back pain. Endocarditis, | | sepsis . COMPARISONS: None. TECHNIQUE: Multiplanar, multisequence T1-weighted and | | fluid-sensitive sequences of the thoracic spine from C7 to L1 without contrast. Other: | | None. FINDINGS:Spinal Cord: No signal abnormality in the visualized spinal cord. | | Alignment: Normal. No scoliosis or spondylolisthesis. Bone Marrow: No gross fractures or | | bone lesion. No bone marrow edema. Disk Levels/Facets:C7-T1: Unremarkable. T1-T2: | | Unremarkable. T2-T3: Unremarkable. T3-T4: Unremarkable. T4-T5: Unremarkable. T5-T6: | | Unremarkable. T6-T7: Unremarkable. T7-T8: Unremarkable. T8-T9: Unremarkable. T9-T10: | | Unremarkable. T10-T11: Unremarkable. T11-T12: Unremarkable. T12-L1: Unremarkable. | | Musculature: Normal. No edema or fatty atrophy. Other: Right-sided pleural effusion. | | Multiple pulmonary nodules are seen, likely with cavitation . This is suboptimally | | imaged with this technique. IMPRESSION: No significant abnormality identified in the | | thoracic spine . Evaluation for epidural abscess is limited without IV contrast. | | Right-sided pleural effusion . Multiple cavitating lung nodules. This is suboptimally | | imaged with this technique. Consider correlation with CT. RADIA Electronically signed | | by Maegan Maddox MD on Oct 02 2015 5:00AM Referring Provider Line: [phone] ID: | | [id number] | |Disk Levels/Facets: | |C7-T1: Unremarkable. | | | |T1-T2: Unremarkable. | | | |T2-T3: Unremarkable. | | | |T3-T4: Unremarkable. | | | |T4-T5: Unremarkable. | | | |T5-T6: Unremarkable. | | | |T6-T7: Unremarkable. | | | |T7-T8: Unremarkable. | | | |T8-T9: Unremarkable. | | | |T9-T10: Unremarkable. | | | |T10-T11: Unremarkable. | | | |T11-T12: Unremarkable. | | | |T12-L1: Unremarkable. | | | |Musculature: Normal. No edema or fatty atrophy. | | | |Other: Right-sided pleural effusion. Multiple pulmonary nodules are seen, likely with cavit ation . This is suboptimally imaged with this technique. | | | |IMPRESSION: | |No significant abnormality identified in the thoracic spine . Evaluation for epidural absce ss is limited without IV contrast. | | | |Right-sided pleural effusion . Multiple cavitating lung nodules. This is suboptimally image d with this technique. Consider correlation with CT. | | | |RADIA | | | | Electronically signed by Maegan Maddox MD on Oct 02 2015 5:00AM Referring Provider Line: [phone] ID: [id number] | + + MRI Cervical Spine wo Contrast (10/02/2015 2:31 AM PDT) + + | Specimen | + + | | + + + + + | Impressions | Performed At | + + + | No cord impingement or cord signal abnormality identified. No | | | findings suggesting diskitis or osteomyelitis. Prominence to the | | | epidural space in the upper cervical spine , potentially a prominent | | | epidural venous plexus. Evaluation for abscess is limited without IV | | | contrast. Followup suggested. RADIA Electronically signed by | | | Maegan Maddox MD on Oct 02 2015 5:45AM Referring Provider Line: | | | [phone] ID: [id number] | | + + + + + + | Narrative | Performed At | + + + | EXAM: MRI CERVICAL SPINE WITHOUT CONTRAST EXAM DATE: 10/02/2015 | | | 02:32 AM. CLINICAL HISTORY: Neck pain. Endocarditis. Sepsis. | | | COMPARISONS: CT cervical spine 10/01/2015. TECHNIQUE: Multiplanar, | | | multisequence T1-weighted and fluid-sensitive sequences of the | | | cervical spine without contrast. Other: None. FINDINGS: | | | Neurologic Structures: The visualized posterior fossa structures are | | | unremarkable. No signal abnormality in the visualized spinal cord. | | | Alignment: Mild levoscoliosis Bone Marrow: No gross fractures or | | | bone lesions. No marrow edema. Interspace Levels/Facets: C1-C2: | | | Unremarkable. C2-C3: Unremarkable. C3-C4: Unremarkable. | | | C4-C5: Unremarkable. C5-C6: Unremarkable. C6-C7: Unremarkable. | | | C7-T1: Unremarkable. Musculature: Normal. No edema or fatty | | | atrophy. Other: Patient is intubated. Roughly symmetric | | | prominence to the epidural space in the upper cervical spine, | | | maximally evident opposite C2 . Findings potentially represent | | | prominence to the epidural venous plexus in this region . There is no | | | impingement on the cervical cord. | | + + + + + | Procedure Note | + + | Elmer, Rad Conversion - 11/01/2018 7:23 PM PDT EXAM:MRI CERVICAL SPINE WITHOUT | | CONTRAST EXAM DATE: 10/02/2015 02:32 AM. CLINICAL HISTORY: Neck pain. Endocarditis. | | Sepsis. COMPARISONS: CT cervical spine 10/01/2015. TECHNIQUE: Multiplanar, multisequence | | T1-weighted and fluid-sensitive sequences of the cervical spine without contrast. | | Other: None. FINDINGS:Neurologic Structures: The visualized posterior fossa structures | | are unremarkable. No signal abnormality in the visualized spinal cord. Alignment: Mild | | levoscoliosis Bone Marrow: No gross fractures or bone lesions. No marrow edema. | | Interspace Levels/Facets:C1-C2: Unremarkable. C2-C3: Unremarkable. C3-C4: Unremarkable. | | C4-C5: Unremarkable. C5-C6: Unremarkable. C6-C7: Unremarkable. C7-T1: Unremarkable. | | Musculature: Normal. No edema or fatty atrophy. Other: Patient is intubated. Roughly | | symmetric prominence to the epidural space in the upper cervical spine, maximally | | evident opposite C2 . Findings potentially represent prominence to the epidural venous | | plexus in this region . There is no impingement on the cervical cord. IMPRESSION: No | | cord impingement or cord signal abnormality identified. No findings suggesting diskitis | | or osteomyelitis. Prominence to the epidural space in the upper cervical spine , | | potentially a prominent epidural venous plexus. Evaluation for abscess is limited | | without IV contrast. Followup suggested. RADIA Electronically signed by Maegan Maddox MD | | on Oct 02 2015 5:45AM Referring Provider Line: [phone] ID: [id number] | |Interspace Levels/Facets: | |C1-C2: Unremarkable. | | | |C2-C3: Unremarkable. | | | |C3-C4: Unremarkable. | | | |C4-C5: Unremarkable. | | | |C5-C6: Unremarkable. | | | |C6-C7: Unremarkable. | | | |C7-T1: Unremarkable. | | | |Musculature: Normal. No edema or fatty atrophy. | | | |Other: Patient is intubated. | | | |Roughly symmetric prominence to the epidural space in the upper cervical spine, maximally e vident opposite C2 . Findings potentially represent prominence to the epidural venous plexus in this region . There is no impingement on the cervical cord. | | | |IMPRESSION: | |No cord impingement or cord signal abnormality identified. No findings suggesting diskitis or osteomyelitis. Prominence to the epidural space in the upper cervical spine , potentially a prominent epidural venous plexus. | |Evaluation for abscess is limited | |without IV contrast. Followup suggested. | | | |RADIA | | | | Electronically signed by Maegan Maddox MD on Oct 02 2015 5:45AM Referring Provider Line: [phone] ID: [id number] | + + MRI Brain wo Contrast (10/02/2015 2:31 AM PDT) + + | Specimen | + + | | + + + + + | Impressions | Performed At | + + + | No acute or focal intracranial abnormality . No evidence of infarct | | | or hemorrhage. RADIA Electronically signed by Maegan Maddox, | | | on Oct 02 2015 4:49AM Referring Provider Line: [phone] | | | ID: [id number] | | + + + + + + | Narrative | Performed At | + + + | EXAM: MRI BRAIN WITHOUT CONTRAST EXAM DATE: 10/02/2015 02:32 AM. | | | CLINICAL HISTORY: Endocarditis. Sepsis . Encephalopathy, | | | intubated COMPARISON: Outside head CT 10/01/2015. TECHNIQUE: | | | Multiplanar, multisequence T1-weighted and fluid-sensitive MR | | | sequences of the brain were performed. Sequences optimized for routine | | | evaluation. Other: None. IV Contrast: None. FINDINGS: Brain | | | Volume: Normal for age. Parenchyma/Dura: No masses, infarcts, or | | | hemorrhage. No white matter lesions identified. | | | Ventricles/Cisterns: Normal. No hydrocephalus. Sinuses: No | | | significant abnormality Bones: Normal. Other: Expected flow | | | voids are identified. | | + + + + + | Procedure Note | + + | Elmer, Rad Conversion - 11/01/2018 7:23 PM PDT EXAM:MRI BRAIN WITHOUT CONTRAST EXAM | | DATE: 10/02/2015 02:32 AM. CLINICAL HISTORY: Endocarditis. Sepsis . Encephalopathy, | | intubated COMPARISON: Outside head CT 10/01/2015. TECHNIQUE: Multiplanar, multisequence | | T1-weighted and fluid-sensitive MR sequences of the brain were performed. Sequences | | optimized for routine evaluation. Other: None. IV Contrast: None. FINDINGS:Brain Volume: | | Normal for age. Parenchyma/Dura: No masses, infarcts, or hemorrhage. No white matter | | lesions identified. Ventricles/Cisterns: Normal. No hydrocephalus. Sinuses: No | | significant abnormality Bones: Normal. Other: Expected flow voids are identified. | | IMPRESSION: No acute or focal intracranial abnormality . No evidence of infarct or | | hemorrhage. RADIA Electronically signed by Maegan Maddox MD on Oct 02 2015 4:49AM | | Referring Provider Line: [phone] ID: [id number] | |FINDINGS: | |Brain Volume: Normal for age. | | | |Parenchyma/Dura: No masses, infarcts, or hemorrhage. No white matter lesions identified. | | | |Ventricles/Cisterns: Normal. No hydrocephalus. | | | |Sinuses: No significant abnormality | | | |Bones: Normal. | | | |Other: Expected flow voids are identified. | | | |IMPRESSION: | |No acute or focal intracranial abnormality . No evidence of infarct or hemorrhage. | | | |RADIA | | | | | | Electronically signed by Maegan Maddox MD on Oct 02 2015 4:49AM Referring Provider Line: [phone] ID: [id number] | + + Sodium (10/01/2015 10:54 PM PDT) + + + + + + | Component | Value | Ref Range | Performed | Pathologist | | | | | At | Signature | + + + + + + | Na | 122 (L)Comment: Testing | 135 - 145 | EXTERNAL | | | | performed at [facility];[address] | mmol/L | LAB | | | | [address];[place], [place] | | | | | | [address] | | | | + + + + + + + + | Specimen | + + | Blood specimen | | (specimen) | + + + +---------+ + + | Performing | Address | City/State/Zipcode | Phone Number | | Organization | | | | + +---------+ + + | EXTERNAL LAB | | | | + +---------+ + + XR Chest 1 Vw (10/01/2015 10:48 PM PDT) + + | Specimen | + + | | + + + + + | Impressions | Performed At | + + + | 1. Interval placement of a central venous catheter from the left | | | IJ route in good position with no pneumothorax to suggest complication | | | of the procedure. 2. Remainder the study is otherwise unchanged | | | compared to the prior examination. | | + + + + + + | Narrative | Performed At | + + + | YANG RIDLEY XR CHEST 1 VIEW 10/01/2015 10:48 PM History: 30 | | | years. Male. Critical care unit patient evaluate tubes and lines | | | and lungs. Technique: AP supine portable view of the chest at 2245 | | | hours. Compared to 1937 hours earlier today. Findings: The | | | endotracheal tube tip is just above the level of the heidi care | | | should be taken to avoid accidental advancement. Nasogastric tube | | | extends below the level of the diaphragm distal tip is not included on | | | the image. Central venous catheter entering from the left neck the | | | tip is at the atriocaval junction. No pneumothorax to suggest | | | complication of the procedure. Again noted are the patchy nodular | | | densities within the lungs and small bilateral effusion right greater | | | than left. | | + + + + + | Procedure Note | + + | Elmer, Rad Conversion - 11/01/2018 7:23 PM PDT YANG RIDLEYXR CHEST 1 VIEW10/01/2015 | | 10:48 PM History: 30 years. Male. Critical care unit patient evaluate tubes and lines | | and lungs. Technique: AP supine portable view of the chest at 2245 hours. Compared to | | 1937 hours earlier today. Findings: The endotracheal tube tip is just above the level of | | the heidi care should be taken to avoid accidental advancement. Nasogastric tube | | extends below the level of the diaphragm distal tip is not included on the image. | | Central venous catheter entering from the left neck the tip is at the atriocaval | | junction. No pneumothorax to suggest complication of the procedure. Again noted are the | | patchy nodular densities within the lungs and small bilateral effusion right greater | | than left. IMPRESSION: 1. Interval placement of a central venous catheter from the | | left IJ route in good position with no pneumothorax to suggest complication of the | | procedure.2. Remainder the study is otherwise unchanged compared to the prior | | examination. | |1. Interval placement of a central venous catheter from the left IJ route in good position with no pneumothorax to suggest complication of the procedure. | |2. Remainder the study is otherwise unchanged compared to the prior examination. | | | | | + + Sodium (10/01/2015 9:05 PM PDT) + + + + + + | Component | Value | Ref Range | Performed | Pathologist | | | | | At | Signature | + + + + + + | Na | 122 (L)Comment: Testing | 135 - 145 | EXTERNAL | | | | performed at [facility];[address] | mmol/L | LAB | | | | [address];[place] | | | | | | [address] | | | | + + + + + + + + | Specimen | + + | Blood specimen | | (specimen) | + + + +---------+ + + | Performing | Address | City/State/Zipcode | Phone Number | | Organization | | | | + +---------+ + + | EXTERNAL LAB | | | | + +---------+ + + Gram Stain, reflex Sputum Culture (10/01/2015 7:44 PM PDT) + + | Specimen | + + | Body fluid sample | | (specimen) | + + + + + | Narrative | Performed At | + + + | Specimen Description TRACHEAL ASPIRATE GRAM | EXTERNAL LAB | | STAIN GREATER THAN 10 WBCS/LPF | | | LESS THAN 10 | | | SEC/LPF 3+ | | | GRAM | | | POSITIVE COCCI 1+ | | | GRAM | | | POSITIVE RODS | | | Testing performed at [facility], [address] [place], [place] | | | [address] CULTURE 3+ | | | STAPHYLOCOCCUS | | | AUREUSAbnormal Suscepibility for - STAPHYLOCOCCUS AUREUS | | | Penicillin G RESISTANT Resistant | | | Clindamycin SUSCEPTIBLESensitive | | | Erythromycin SUSCEPTIBLESensitive | | | Gentamicin SUSCEPTIBLESensitive | | | Levofloxacin SUSCEPTIBLESensitive | | | Moxifloxacin SUSCEPTIBLESensitive Oxacillin | | | SUSCEPTIBLESensitive Tetracycline | | | SUSCEPTIBLESensitive Trimethoprim + | | | SulfamethoxazoleSUSCEPTIBLESensitive Vancomycin | | | SUSCEPTIBLESensitive | | + + + + +---------+ + + | Performing | Address | City/State/Zipcode | Phone Number | | Organization | | | | + +---------+ + + | EXTERNAL LAB | | | | + +---------+ + + XR Chest 1 Vw (10/01/2015 7:42 PM PDT) + + | Specimen | + + | | + + + + + | Impressions | Performed At | + + + | 1. Tubes and lines, as above. No pneumothorax. 2. Multifocal | | | bilateral nodular infiltrates, suggesting septic emboli. 3. Small | | | bilateral pleural effusions. | | + + + + + + | Narrative | Performed At | + + + | YANG RIDLEY XR CHEST 1 VIEW 10/01/2015 7:42 PM HISTORY: Line | | | placement. TECHNIQUE: One view of the chest FINDINGS: No | | | prior chest x-ray for comparison. Endotracheal tube tip is 2 cm above | | | the heidi. Nasogastric tube tip is in the stomach. Heart size is | | | normal. Small bilateral pleural effusions are present. There are | | | patchy bilateral nodular infiltrates, suggesting septic emboli. | | + + + + + | Procedure Note | + + | Elmer, Rad Conversion - 11/01/2018 7:23 PM PDT YANG RIDLEYXR CHEST 1 VIEW10/01/2015 | | 7:42 PM HISTORY:Line placement. TECHNIQUE:One view of the chest FINDINGS:No prior chest | | x-ray for comparison. Endotracheal tube tip is 2 cm above the heidi. Nasogastric tube | | tip is in the stomach. Heart size is normal. Small bilateral pleural effusions are | | present. There are patchy bilateral nodular infiltrates, suggesting septic emboli. | | IMPRESSION: 1. Tubes and lines, as above. No pneumothorax.2. Multifocal bilateral | | nodular infiltrates, suggesting septic emboli.3. Small bilateral pleural effusions. | | | |One view of the chest | | | |FINDINGS: | |No prior chest x-ray for comparison. Endotracheal tube tip is 2 cm above the heidi. Nasoga stric tube tip is in the stomach. Heart size is normal. Small bilateral pleural effusions ar e present. There are patchy bilateral | |nodular infiltrates, suggesting | |septic emboli. | | | |IMPRESSION: | |1. Tubes and lines, as above. No pneumothorax. | |2. Multifocal bilateral nodular infiltrates, suggesting septic emboli. | |3. Small bilateral pleural effusions. | | | | | + + Culture, Blood, 2nd Specimen (10/01/2015 7:41 PM PDT) + + | Specimen | + + | Blood specimen | | (specimen) | + + + + + | Narrative | Performed At | + + + | Specimen Description BLOOD, PERIPHERAL DRAW | EXTERNAL LAB | | SPECIAL REQUESTS RHAND | | | Testing performed at [facility];[address] | | | [facility];[place] [address] CULTURE | | | NO GROWTH 6 DAYS | | | Testing performed at [facility], [address] [facility], [place], | | | [place] [address] | | + + + + +---------+ + + | Performing | Address | City/State/Zipcode | Phone Number | | Organization | | | | + +---------+ + + | EXTERNAL LAB | | | | + +---------+ + + [facility] Lab Referral (10/01/2015 7:38 PM PDT) + + + + + + | Component | Value | Ref Range | Performed | Pathologist | | | | | At | Signature | + + + + + + | TEST | OSMURComment: Testing | | EXTERNAL | | | INFORMATION | performed at [facility], [address] | | LAB | | | | [address], | | | | | | [place] [address] | | | | + + + + + + | Miscellaneo | SEE BELOWComment: | | EXTERNAL | | | us Lab Test | OSMOLALITY, URINE | | LAB | | | | RANDOMTEST | | | | | | RESULT/FLAG | | | | | | | | | | | | REFERENCE_RANGEOSMOLAL | | | | | | ITY, URINE RANDOM | | | | | | 379 | | | | | | MOSM/KG | | | | | | 50-1200Testing | | | | | | performed at [facility] | | | | | | [facility], | | | | | | [address] [place] | | | | | | [address] | | | | + + + + + + + + | Specimen | + + | | + + + +---------+ + + | Performing | Address | City/State/Zipcode | Phone Number | | Organization | | | | + +---------+ + + | EXTERNAL LAB | | | | + +---------+ + + Osmolality, Urine (10/01/2015 7:38 PM PDT) + + + + + + | Component | Value | Ref Range | Performed | Pathologist | | | | | At | Signature | + + + + + + | OSMO URINE | Testing performed by | 50 - 1,200 | EXTERNAL | | | | [facility], [address], | mOsm/kg | LAB | | | | [place] [address]Nfvimeu: | | | | | | Testing performed at | | | | | | [facility], [address] [facility] | | | | | | [place], [place] | | | | | | [address] | | | | + + + + + + + + | Specimen | + + | Urine specimen | | (specimen) | + + + +---------+ + + | Performing | Address | City/State/Zipcode | Phone Number | | Organization | | | | + +---------+ + + | EXTERNAL LAB | | | | + +---------+ + + Culture, Blood (10/01/2015 7:37 PM PDT) + + | Specimen | + + | Blood specimen | | (specimen) | + + + + + | Narrative | Performed At | + + + | Specimen Description BLOOD, PERIPHERAL DRAW | EXTERNAL LAB | | SPECIAL REQUESTS LH | | | Testing performed at [facility];[address] | | | [facility];[place] [address] CULTURE | | | NO GROWTH 6 DAYS | | | Testing performed at [facility], [address] [facility], | | | [place] [address] | | + + + + +---------+ + + | Performing | Address | City/State/Zipcode | Phone Number | | Organization | | | | + +---------+ + + | EXTERNAL LAB | | | | + +---------+ + + Calcium, Ionized (10/01/2015 7:36 PM PDT) + + + + + + | Component | Value | Ref Range | Performed | Pathologist | | | | | At | Signature | + + + + + + | Calcium | 0.86 (L)Comment: Testing | 1.08 - 1.25 | EXTERNAL | | | (Calc) | performed at [facility];[address] | mmol/L | LAB | | | | [address];[place] | | | | | | [address] | | | | + + + + + + | pH, Bld | 7.452 (H)Comment: | 7.300 - 7.450 | EXTERNAL | | | | Testing performed at | | LAB | | | | [facility];[address] | | | | | | [facility];[place] [address] | | | | + + + + + + + + | Specimen | + + | Blood specimen | | (specimen) | + + + +---------+ + + | Performing | Address | City/State/Zipcode | Phone Number | | Organization | | | | + +---------+ + + | EXTERNAL LAB | | | | + +---------+ + + MRSA NAAT (10/01/2015 7:35 PM PDT) + + | Specimen | + + | | + + + + + | Narrative | Performed At | + + + | SOURCE NARES(NOSE) | EXTERNAL LAB | | Testing performed at [facility];[address] [place] [address];[place] [address] MRSA PCR | | | NEGATIVE Testing performed at | | | [address];[place] [address] | | + + + + +---------+ + + | Performing | Address | City/State/Zipcode | Phone Number | | Organization | | | | + +---------+ + + | EXTERNAL LAB | | | | + +---------+ + + Misc Lab Referral (10/01/2015 7:35 PM PDT) + + + + + + | Component | Value | Ref Range | Performed | Pathologist | | | | | At | Signature | + + + + + + | TEST | OSMComment: Testing | | EXTERNAL | | | INFORMATION | performed at [facility], [address] | | LAB | | | | [address], | | | | | | [place] [address] | | | | + + + + + + | Miscellaneo | OSMOLALITYComment: TEST | | EXTERNAL | | | us Lab Test | | | LAB | | | | RESULT/FLAG | | | | | | | | | | | | REFERENCE_RANGEOSMOLAL | | | | | | ITY 267 | | | | | | L MOSM/KG | | | | | | 275-295Testing performed | | | | | | at [facility] | | | | | | Center, [address], | | | | | | [place] [address] | | | | + + + + + + + + | Specimen | + + | | + + + +---------+ + + | Performing | Address | City/State/Zipcode | Phone Number | | Organization | | | | + +---------+ + + | EXTERNAL LAB | | | | + +---------+ + + PTT (10/01/2015 7:35 PM PDT) + + + + + + | Component | Value | Ref Range | Performed | Pathologist | | | | | At | Signature | + + + + + + | aPTT, | 39 (H)Comment: Testing | 23 - 32 seconds | EXTERNAL | | | Patient | performed at [facility];[address] | | LAB | | | | [address];[place] | | | | | | [address] | | | | + + + + + + + + | Specimen | + + | Blood specimen | | (specimen) | + + + +---------+ + + | Performing | Address | City/State/Zipcode | Phone Number | | Organization | | | | + +---------+ + + | EXTERNAL LAB | | | | + +---------+ + + Protime INR (10/01/2015 7:35 PM PDT) + + + + + + | Component | Value | Ref Range | Performed | Pathologist | | | | | At | Signature | + + + + + + | INR | 1.6Comment: REFERENCE | | EXTERNAL | | | | RANGE:0.9 - 1.2 | | LAB | | | | NON-ANTICOAGULATED2.0 | | | | | | - 3.0 ALL OTHER | | | | | | THERAPEUTIC | | | | | | INDICATIONS2.5 - 3.5 | | | | | | MECHANICAL HEART VALVES, | | | | | | RECURRENT OR SYSTEMIC | | | | | | EMBOLISMTesting | | | | | | performed at [facility] | | | | | | [facility];[place], [place] | | | | | | [address] | | | | + + + + + + + + | Specimen | + + | Blood specimen | | (specimen) | + + + +---------+ + + | Performing | Address | City/State/Zipcode | Phone Number | | Organization | | | | + +---------+ + + | EXTERNAL LAB | | | | + +---------+ + + External Lab: CBC (10/01/2015 7:35 PM PDT) + + + + + + | Component | Value | Ref Range | Performed | Pathologist | | | | | At | Signature | + + + + + + | WBC | 16.63 (H)Comment: | 3.80 - 11.00 | EXTERNAL | | | | Testing performed at | K/uL | LAB | | | | [facility];[address] | [address];[place] [address] | | | | + + + + + + | Non- | 3.59 (L)Comment: Testing | 4.20 - 5.70 | EXTERNAL | | | Red Blood | performed at [facility];[address] | M/uL | LAB | | | Cells | [address];[place] | | | | | Counted | [id number] | | | | + + + + + + | Hemoglobin | 9.4 (L)Comment: Testing | 13.2 - 17.0 | EXTERNAL | | | | performed at [facility];[address] | g/dL | LAB | | | | [address];[place] | | | | | | [address] | | | | + + + + + + | Hematocrit, | 29.1 (L)Comment: Testing | 39.0 - 50.0 % | EXTERNAL | | | POC | performed at [facility];[address] | | LAB | | | | [address];[place] | | | | | | [address] | | | | + + + + + + | MCV | 81.1Comment: Testing | 80.0 - 100.0 fl | EXTERNAL | | | | performed at [facility];[address] | | LAB | | | | [address];[place] | | | | | | [address] | | | | + + + + + + | MCH | 26.2 (L)Comment: Testing | 27.0 - 34.0 pg | EXTERNAL | | | | performed at [facility];[address] | | LAB | | | | [address];[place] | | | | | | [address] | | | | + + + + + + | MCHC | 32.3Comment: Testing | 32.0 - 35.5 | EXTERNAL | | | | performed at [facility];[address] | g/dL | LAB | | | | [address];[place] | | | | | | [address] | | | | + + + + + + | RDW-CV | 39.4Comment: Testing | 37 - 53 fl | EXTERNAL | | | | performed at [facility];[address] | | LAB | | | | [address];[place] | | | | | | [address] | | | | + + + + + + | Platelet | 43 (LL)Comment: CALLED | 150 - 400 K/uL | EXTERNAL | | | Count | NURSING UNITREAD BACK | | LAB | | | Plasma | RESULTS VERIFIEDKEVIN S | | | | | | AT JGRTesting | | | | | | performed at [facility];[address] | | | | | [address];[place] | | | | | | [address] | | | | + + + + + + | MPV | 10.1Comment: Testing | fl | EXTERNAL | | | | performed at [facility];[address] | | LAB | | | | [address];[place] | | | | | | [address] | | | | + + + + + + | Differentia | MANUALComment: Testing | | EXTERNAL | | | l Type | performed at [facility];[address] | | LAB | | | [address];[place] | | | | | | [address] | | | | + + + + + + | Segmented | 91Comment: Testing | % | EXTERNAL | | | Neutrophils | performed at [facility];[address] | | LAB | | | Manual | [address];[place] | | | | | | [address] | | | | + + + + + + | % Bands | 4Comment: Testing | % | EXTERNAL | | | | performed at [facility];[address] | | LAB | | | | [address];[place] | | | | | | [address] | | | | + + + + + + | Lymphocytes | 5Comment: Testing | % | EXTERNAL | | | Manual | performed at [facility];[address] | | LAB | | | | [address];[place] | | | | | | [address] | | | | + + + + + + | Absolute | 15.13 (H)Comment: | 1.90 - 7.40 | EXTERNAL | | | Neutrophils | Testing performed at | K/uL | LAB | | | | [facility];[address];[place] [address] | | | | + + + + + + | Bands | 0.67 (H)Comment: Testing | 0.00 - 0.20 | EXTERNAL | | | Manual | performed at [facility];[address] | [address] | LAB | | | | [address];[place] | | | | | | [address] | | | | + + + + + + | Absolute | 0.83 (L)Comment: Testing | 1.00 - 3.90 | EXTERNAL | | | Lymphocytes | performed at [facility];[address] | K[address] | LAB | | | | [address];[place] | | | | | | [address] | | | | + + + + + + | Platelet | DECREASEDComment: | | EXTERNAL | | | Estimate | Testing performed at | | LAB | | | | [facility];[address];[place] [address] | | | | + + + + + + | RBC | 1+Comment: HYPONORMAL | | EXTERNAL | | | Morphology | PLT MORPHTesting | | LAB | | | | performed at [facility];[address];[place] | | | | | | [address] | | | | | | | | | | + + + + + + + + | Specimen | + + | Blood specimen | | (specimen) | + + + +---------+ + + | Performing | Address | City/State/Zipcode | Phone Number | | Organization | | | | + +---------+ + + | EXTERNAL LAB | | | | + +---------+ + + Osmolality, Serum (10/01/2015 7:35 PM PDT) + + + + + + | Component | Value | Ref Range | Performed | Pathologist | | | | | At | Signature | + + + + + + | Osmolality, | Testing performed by | 275 - 295 | EXTERNAL | | | Serum | [facility], [address], | mOsm/kg | LAB | | | | Amparo [facility]CHELL [id number]: | | | | | | Testing performed at | | | | | | [facility], [address] [facility] | | | | | | [place] | | | | | | [address] | | | | + + + + + + + + | Specimen | + + | Blood specimen | | (specimen) | + + + +---------+ + + | Performing | Address | City/State/Zipcode | Phone Number | | Organization | | | | + +---------+ + + | EXTERNAL LAB | | | | + +---------+ + + Comprehensive Metabolic Panel (10/01/2015 7:35 PM PDT) + + + + + + | Component | Value | Ref Range | Performed | Pathologist | | | | | At | Signature | + + + + + + | Na | 120 (L)Comment: Testing | 135 - 145 | EXTERNAL | | | | performed at [facility];[address] | mmol/L | LAB | | | | [address];[place] | | | | | | [address] | | | | + + + + + + | K | 4.5Comment: Testing | 3.5 - 4.9 | EXTERNAL | | | | performed at [facility];[address] | mmol/L | LAB | | | | [address];[place] | | | | | | [address] | | | | + + + + + + | Cl | 87 (L)Comment: Testing | 99 - 109 mmol/L | EXTERNAL | | | | performed at [facility];[address] | | LAB | | | [address];[place] | | | | | | [address] | | | | + + + + + + | CO2 | 22 (L)Comment: Testing | 23 - 32 mmol/L | EXTERNAL | | | | performed at [facility];[address] | | LAB | | | | [address];[place] | | | | | | [address] | | | | + + + + + + | Anion Gap | 15Comment: Testing | 5 - 20 mmol/L | EXTERNAL | | | | performed at [facility];[address] | | LAB | | | [address];[place] | | | | | | [address] | | | | + + + + + + | Glucose, | 112 (H)Comment: Testing | 65 - 99 mg/dL | EXTERNAL | | | Fasting | performed at [facility];[address] | | LAB | | | [address];[place] | | | | | | [address] | | | | + + + + + + | BUN | 75 (H)Comment: Testing | 8 - 25 mg/dL | EXTERNAL | | | | performed at [facility];[address] | | LAB | | | [address];[place] | | | | | | [address] | | | | + + + + + + | Creatinine | 1.9 (H)Comment: Testing | 0.70 - 1.30 | EXTERNAL | | | | performed at [facility];[address] | mg/dL | LAB | | | | [address];[place] | | | | | | [address] | | | | + + + + + + | BUN/Creatin | 39Comment: Testing | | EXTERNAL | | | ine Ratio | performed at [facility];[address] | | LAB | | | | [address];[place] | | | | | | [address] | | | | + + + + + + | Calcium | 5.9 (LL)Comment: CALLED | 8.5 - 10.5 | EXTERNAL | | | | RESULTSREAD BACK RESULTS | mg/dL | LAB | | | | VERIFIEDKEVIN S/ICU AT | | | | | | 2030 BY MAHTesting | | | | | | performed at [facility];[address] | | | | | | [address];[place] | | | | | | [address] | | | | + + + + + + | Protein, | 5.1 (L)Comment: Testing | 6.3 - 8.2 g/dL | EXTERNAL | | | Total | performed at [facility];[address] | | LAB | | | [address];[place] | | | | | | [address] | | | | + + + + + + | Albumin | 1.5 (L)Comment: Testing | 3.6 - 5.0 g/dL | EXTERNAL | | | | performed at [facility];[address] | | LAB | | | [address];[place] | | | | | | [address] | | | | + + + + + + | Globulin | 3.6Comment: Testing | 1.3 - 4.9 g/dL | EXTERNAL | | | | performed at [facility];[address] | | LAB | | | [address];[place] | | | | | | [address] | | | | + + + + + + | A/G Ratio | 0.4 (L)Comment: Testing | 1.0 - 2.4 | EXTERNAL | | | | performed at [facility];[address] | | LAB | | | | [address];[place] | | | | | | [address] | | | | + + + + + + | Bilirubin | 3.4 (H)Comment: Testing | 0.1 - 1.5 mg/dL | EXTERNAL | | | Total | performed at [facility];[address] | | LAB | | | [address];[place] | | | | | | [address] | | | | + + + + + + | ALP, | 141 (H)Comment: Testing | 35 - 115 U/L | EXTERNAL | | | External | performed at [facility];[address] | | LAB | | | [address];[place] | | | | | | [address] | | | | + + + + + + | AST | 192 (H)Comment: Testing | 10 - 45 U/L | EXTERNAL | | | | performed at [facility];[address] | | LAB | | | [address];[place] | | | | | | [address] | | | | + + + + + + | ALT | 129 (H)Comment: Testing | 10 - 65 U/L | EXTERNAL | | | | performed at [facility];[address] | | LAB | | | | [address];[place], [place] | | | | | | [address] | | | | + + + + + + | Estimated | 44 (L)Comment: GFR <60: | mL/min/1.73m2 | EXTERNAL | | | GFR | CHRONIC KIDNEY DISEASE, | | LAB | | | | IF FOUND OVER A 3 MONTH | | | | | | PERIOD.GFR <15: KIDNEY | | | | | | FAILURE.FOR | | | | | | AMERICANS, MULTIPLY THE | | | | | | CALCULATED GFR BY | | | | | | 1.210.Testing performed | | | | | | at [facility];[address];[place] [address] | | | | + + + + + + + + | Specimen | + + | Blood specimen | | (specimen) | + + + +---------+ + + | Performing | Address | City/State/Zipcode | Phone Number | | Organization | | | | + +---------+ + + | EXTERNAL LAB | | | | + +---------+ + + POC Glucose (10/01/2015 7:33 PM PDT) + + + + + + | Component | Value | Ref Range | Performed | Pathologist | | | | | At | Signature | + + + + + + | Glucose, | 85Comment: Testing | 65 - 99 mg/dL | EXTERNAL | | | Fingerstick | performed at [facility];[address] | | LAB | | | | [address];[place] | | | | | | [address] | | | | + + + + + + + + | Specimen | + + | | + + + +---------+ + + | Performing | Address | City/State/Zipcode | Phone Number | | Organization | | | | + +---------+ + + | EXTERNAL LAB | | | | + +---------+ + + POC CG 4, ISTAT Arterial (10/01/2015 7:28 PM PDT) + + + + + + | Component | Value | Ref Range | Performed | Pathologist | | | | | At | Signature | + + + + + + | PH ART | 7.429Comment: Testing | 7.350 - 7.450 | EXTERNAL | | | | performed at [facility];[address] | | LAB | | | [address];[place] | | | | | | [address] | | | | + + + + + + | PCO2 ART | 34 (L)Comment: Testing | 35 - 45 mmHg | EXTERNAL | | | | performed at [facility];[address] | | LAB | | | [address];[place] | | | | | | [address] | | | | + + + + + + | PO2 ART | 230 (H)Comment: Testing | 80 - 105 mmHg | EXTERNAL | | | | performed at [facility];[address] | | LAB | | | [address];[place] | | | | | | [address] | | | | + + + + + + | Lactate, | 1.3 (H)Comment: Testing | 0.36 - 1.25 | EXTERNAL | | | Arterial | performed at [facility];[address] | mmol/L | LAB | | | | [address];[place] | | | | | | [address] | | | | + + + + + + | HCO3 ART | 22Comment: Testing | 22 - 26 mmol/L | EXTERNAL | | | | performed at [facility];[address] | | LAB | | | [address];[place] | | | | | | [address] | | | | + + + + + + | POC | 23Comment: Testing | 23 - 27 mEq/L | EXTERNAL | | | APPEARANCE | performed at [facility];[address] | | LAB | | | UA | [address];[place] | | | | | | [address] | | | | + + + + + + | Base | 2Comment: Testing | 0.0 - 2.0 | EXTERNAL | | | deficit | performed at [facility];[address] | mmol/L | LAB | | | | [address];[place] | | | | | | [address] | | | | + + + + + + | O2 SAT ART | 100 (H)Comment: Testing | 95 - 98 % | EXTERNAL | | | | performed at [facility];[address] | | LAB | | | [address];[place] | | | | | | [address] | | | | + + + + + + | FiO2, POC | 60Comment: Testing | % | EXTERNAL | | | | performed at [facility];[address] | | LAB | | | | [address];[place] | | | | | | [address] | | | | + + + + + + | Comment, | Tidal Volume = | | EXTERNAL | | | POC | 450Comment: Peep = | | LAB | | | | 14Resp Rate = 8Testing | | | | | | performed at [facility];[address] | | | | | | [address];[place] | | | | | | [address] | | | | + + + + + + + + | Specimen | + + | | + + + +---------+ + + | Performing | Address | City/State/Zipcode | Phone Number | | Organization | | | | + +---------+ + + | EXTERNAL LAB | | | | + +---------+ + + CT Chest w Contrast (10/01/2015 6:48 PM PDT) + + | Specimen | + + | | + + + + + | Narrative | Performed At | + + + | This is a non-reportable procedure without a radiologist report and | | | is used for image storage only | | + + + + + | Procedure Note | + + | Erasmo Payne - 11/01/2018 7:23 PM PDT This is a non-reportable procedure | | without a radiologist report and isused for image storage only | + + CT Cervical Spine wo Contrast (10/01/2015 5:29 AM PDT) + + | Specimen | + + | | + + + + + | Narrative | Performed At | + + + | This is a non-reportable procedure without a radiologist report and | | | is used for image storage only | | + + + + + | Procedure Note | + + | Erasmo Payne - 11/01/2018 7:23 PM PDT This is a non-reportable procedure | | without a radiologist report and isused for image storage only | + + CT Head wo Contrast (10/01/2015 5:29 AM PDT) + + | Specimen | + + | | + + + + + | Narrative | Performed At | + + + | This is a non-reportable procedure without a radiologist report and | | | is used for image storage only | | + + + + + | Procedure Note | + + | Erasmo Payne - 11/01/2018 7:23 PM PDT This is a non-reportable procedure | | without a radiologist report and isused for image storage only | + + XR Cervical Spine 2 or 3 Views (10/01/2015 5:29 AM PDT) + + | Specimen | + + | | + + + + + | Narrative | Performed At | + + + | This is a non-reportable procedure without a radiologist report and | | | is used for image storage only | | + + + + + | Procedure Note | + + | Erasmo Payne - 11/01/2018 7:23 PM PDT This is a non-reportable procedure | | without a radiologist report and isused for image storage only | + + XR Chest 2 Vws (10/01/2015 5:29 AM PDT) + + | Specimen | + + | | + + + + + | Narrative | Performed At | + + + | This is a non-reportable procedure without a radiologist report and | | | is used for image storage only | | + + + + + | Procedure Note | + + | Erasmo Payne - 11/01/2018 7:23 PM PDT This is a non-reportable procedure | | without a radiologist report and isused for image storage only | + + documented in this encounter Visit Diagnoses + + | Diagnosis | + + | Unknown cause of injury Unspecified accident | + + | Acute septic pulmonary embolism without acute cor pulmonale (HCC) | + + | Heroin abuse (HCC) | + + | Hyposmolality and/or hyponatremia | + + | Methamphetamine abuse (HCC) Nondependent amphetamine or related acting | | sympathomimetic abuse, unspecified | + + | Moderate protein-calorie malnutrition (HCC) Malnutrition of moderate degree | + + | Thrombocytopenia (HCC) Thrombocytopenia, unspecified | + + | Tobacco abuse Tobacco use disorder | + + | Toxic metabolic encephalopathy Reserved for inherently not codable concepts WITHOUT | | codable children | + + | Acute septic pulmonary embolism with acute cor pulmonale (HCC) | + + | Leukocytosis, unspecified type | + + | Sepsis, due to unspecified organism | + + | Hallucination, visual Psychophysical visual disturbances | + + | Pain Generalized pain | + + | Pleural effusion, right Unspecified pleural effusion | + + | Sepsis due to methicillin susceptible Staphylococcus aureus (HCC) Methicillin | | susceptible staphylococcus aureus septicemia | + + | MARCEL (acute kidney injury) (HCC) Acute kidney failure, unspecified | + + | Pleural effusion on left Unspecified pleural effusion | + + | Acute respiratory failure with hypoxia (HCC) Acute respiratory failure | + + | Acute bacterial endocarditis Acute and subacute bacterial endocarditis | + + documented in this encounter
--- OUTSIDE RECORDS SUMMARY | ~2019-09-28 | XMS | Clinical Summary ---
Demographics + + + | Address | [address] | | | [place] [address] | + + + | Home Phone | | + + + | Preferred Language | Unknown | + + + | Marital Status | Single | + + + | Catholic Affiliation | 1013 | + + + | Race | Unknown | + + + | Ethnic Group | Unknown | + + + Author + + + | Author | [facility] | | | and [place] | + + + | Organization | [facility] | | | [...] Team Providers + +------+ + | Care Eyedotter Name | Role | Phone | + +------+ + PCP | Unavailable | + +------+ + Allergies Not on File Medications Not on file Active Problems Not on file Immunizations + + + + | Name | Administration Dates | Next Due | + + + + | PNEUMOCOCCAL | 10/03/2015 | | | POLYSACCHARIDE | | | | 23-VALENT (PPSV23) | | | + + + + Family History + + +------+ + | Medical History | Relation | Name | Comments | + + +------+ + | Kidney disease | Neg Hx | | | + + +------+ + Social History + +-------+ +--------+------+ | Tobacco Use | Types | Packs/Day | Years | Date | | | | | Used | | + +-------+ +--------+------+ | Current Every Day | | | | | | Smoker | | | | | + +-------+ +--------+------+ + + + | Sex Assigned at | Date Recorded | | | | + + + | Not on file | | + + + Last Filed Vital Signs + + + + + | Vital Sign | Reading | Time Taken | Comments | + + + + + | Blood Pressure | 106/70 | 05/16/2016 8:41 AM | | | | | PST | | + + + + + | Pulse | 76 | 05/16/2016 8:41 AM | | | | | PST | | + + + + + | Temperature | 36.2 C (97.2 F) | 05/16/2016 8:41 AM | | | | | PST | | + + + + + [...] + + + + | Weight | 67.1 kg (148 lb) | 05/16/2016 8:41 AM | | | | | PST | | + + + + + | Height | 170.2 cm (5' 7") | 11/13/2015 7:56 AM | | | | | PDT | | + + + + + | Body Mass Index | 23.18 | 11/13/2015 7:56 AM | | | | | PDT | | + + + + + Plan of Treatment + + + + + | Health Maintenance | Due Date | Last | Comments | | | | Done | | + + + + + | Vaccine: | | 11/12/18 | | | Dtap/Tdap/Td (7 - | 8 | 98, | | | Tdap) | | 11/04/18 | | | | | 98, | | | | | 04/24/18 | | | | | 91, | | | | | Addition | | | | | al | | | | | history | | | | | exists | | + + + + + | Vaccine: Influenza | | | | | (#1) | 0 | | | + + + + + Results Not on filefrom Last 3 Months Advance Directives + + + + + | Type | Date Recorded | Patient | Explanation | | | | Collision Worker | | + + + + + | Power of | | | | | Casino Attendant | | | | + + + + + | Advance | | | | | Directive | | | | + + + + +
--- OUTSIDE RECORDS SUMMARY | ~2019-09-28 | XMS | Encounter Summary ---
Demographics + + + | Address | [address] | | | [place] [address] | + + + | Home Phone | | + + + | Preferred Language | Unknown | + + + | Marital Status | Single | + + + | Gnosticist Affiliation | [id number] | + + + | Race | Unknown | + + + | Ethnic Group | Unknown | + + + Author + + + | Author | [facility] | | | and [place] | + + + | Organization | [facility] | | | and [...] Team Providers + +------+ + | Care Tank Storage Supervisor Name | Role | Phone | + +------+ + PCP | Unavailable | + +------+ + Encounter Details +--------+ + + + + | Date | Type | Department | Care Team | Description | +--------+ + + + + | 05/24/ | Orders Only | [facility] | Dariana Caro | | | 2017 | | CONVERSION [address] | [address] | | | | | [address] | [address] | | | | | [address] [address] | [place] [address] [address] | | | | | [id number] | [phone] | | | | | [phone] | | | +--------+ + + + [...] + | ECHO INTERPRETATION | Routin | 05/24/2016 | | Results for this | | OF OUTSIDE FILMS | e | 2:53 PM | | procedure are in the | | | | PST | | results section. | + +--------+ + + + documented in this encounter Results ECHO Interpretation of Outside Films (05/24/2016 2:53 PM PST) + + | Specimen | + + | | + + + + + | Impressions | Performed At | + + + | 1. Overall left ventricular systolic function is normal with, an EF | | | between 60 - 65 %. 2. The right ventricle is mildly enlarged, but | | | right ventricular systolic function is normal. 3. Moderate tricuspid | | | regurgitation present. 4. There is mild pulmonary hypertension. The | | | right ventricular systolic pressure (pulmonary artery systolic | | | pressure), as measured by Doppler, is 41.1 mm Hg. 5. No vegetation | | | visualized. | | + + + + + + | Narrative | Performed At | + + + | Patient Name: YANG BURDEN Date of : 1985 | | | Performing Physician: ABDIAZIZ NGUYEN MD | | | | | | INDICATIONS F/U endocarditis CONCLUSIONS | | | 1. Overall left ventricular systolic function is normal | | | with, an EF between 60 - 65 %. 2. The right ventricle is mildly | | | enlarged, but right ventricular systolic function is normal. 3. | | | Moderate tricuspid regurgitation present. 4. There is mild pulmonary | | | hypertension. The right ventricular systolic pressure (pulmonary | | | artery systolic pressure), as measured by Doppler, is 41.1 mm Hg. 5. | | | No vegetation visualized. FINDINGS -------- ECG rhythm: Sinus | | | rhythm. Study: A 2-dimensional transthoracic echocardiogram with | | | m-mode, spectral and color flow Doppler with LV strain imaging was | | | perfomed at [facility]. Study: This was a technically good | | | study. Left Ventricle: Overall left ventricular systolic function is | | | normal with, an EF between 60 - 65 %. Left Ventricle: The left | | | ventricle cavity size is normal. Left Ventricle: Left ventricular | | | wall thickness is normal. Left Ventricle: No regional wall motion | | | abnormalities. Left Ventricle: The diastolic filling pattern is | | | normal for the age of the patient. Right Ventricle: The right | | | ventricle is mildly enlarged measuring between 3.4 - 3.7 cm. Right | | | Ventricle: The right ventricular systolic function is normal. Left | | | Atrium: The left atrium is normal in size. Right Atrium: The right | | | atrium is normal in size. Aortic Valve: The aortic valve is | | | trileaflet and appears structurally normal. Aortic Valve: There is no | | | evidence of aortic regurgitation. Aortic Valve: There is no evidence | | | of aortic stenosis. Mitral Valve: The mitral valve is normal. | | | Mitral Valve: There is trace mitral regurgitation. Tricuspid Valve: | | | The tricuspid valve appears structurally normal. Tricuspid Valve: | | | Moderate tricuspid regurgitation present. Tricuspid Valve: There is | | | mild pulmonary hypertension. Tricuspid Valve: The right ventricular | | | systolic pressure (pulmonary artery systolic pressure), as measured by | | | Doppler, is 41.13mmHg. Pulmonic Valve: The pulmonic valve is normal. | | | Pulmonic Valve: Trace pulmonic regurgitation. Pericardium: There | | | is no pericardial effusion. IVC/Hepatic Veins: The IVC is normal size | | | (1.5-2.5cm) and collapses >50% with sniff, consistent with central | | | venous pressures of 5-10mmHg. Aorta: The aortic root, ascending aorta | | | and aortic arch are normal. Pulmonary Artery: The pulmonary artery | | | is normal. Mass: No mass visualized Thrombus: No clot visualized | | | Thrombus: No vegetation visualized. Septum: No ASD observed. Septum: | | | No VSD observed. MEASUREMENTS Ao asc: 2.77 cm | | | Ao Diam: 3.31 cm Ao sinus: 3.[address] junct: 2.76 cm | | | IVC: 1.61 cm LA Diam: 3.19 cm LA Major: 3.63 cm | | | EDV(Teich): 95.03 ml IVSd: 0.71 cm LVIDd: 4.55 cm LVPWd: | | | 0.71 cm LVOT Area: 3.47 cm2 LVOT Diam: 2.10 cm %FS: | | | 35.71 % EF(Teich): 65.32 % ESV(Teich): 32.95 ml LVIDs: | | | 2.92 cm SV(Teich): 62.08 ml RA Major: 4.31 cm RV Major: | | | 7.41 cm RVIDd: 3.52 cm LVEF MOD A2C: 60.00 % SV MOD A2C: | | | 54.28 ml LVEF MOD A4C: 69.58 % SV MOD A4C: 55.18 ml EF | | | Biplane: 64.73 % LVEDV MOD BP: 85.03 ml LVESV MOD BP: 29.99 | | | ml LVEDV MOD A2C: 90.46 ml LVLd A2C: 8.17 cm LVEDV MOD A4C: | | | 79.30 ml LVLd A4C: 8.31 cm LVESV MOD A2C: 36.18 ml LVLs | | | A2C: 6.98 cm LVESV MOD A4C: 24.11 ml LVLs A4C: 6.64 cm | | | LAESV(A-L): 23.79 ml LAESV Index (A-L): 13.07 ml/m2 LAAs A2C: | | | 12.06 cm2 LAESV A-L A2C: 30.29 ml LALs A2C: 4.07 cm LAAs | | | A4C: 8.97 cm2 LAESV A-L A4C: 17.70 ml LALs A4C: 3.86 cm | | | RAAs: 13.45 cm2 RAESV A-L: 36.70 ml RAESV MOD: 34.87 ml | | | RALs: 4.18 cm Ao Diam: 3.13 cm LA Diam: 3.01 cm LA/Ao: | | | 0.96 TAPSE: 2.65 cm AV maxP.32 mmHg AV meanP.96 | | | mmHg AV Vmax: 1.15 m/s AV Vmean: 0.80 m/s AV VTI: 17.38 cm | | | MAGUI Vmax: 2.80 cm2 MAGUI (VTI): 3.20 cm2 AVAI Vmax: 0.00 | | | cm2/m2 AVAI (VTI): 0.00 cm2/m2 LVOT maxP.48 mmHg LVOT | | | meanP.83 mmHg LVSI Dopp: 30.63 ml/m2 LVSV Dopp: 55.74 | | | ml LVOT Vmax: 0.93 m/s LVOT Vmean: 0.63 m/s LVOT VTI: | | | 16.05 cm MV A Reid: 0.38 m/s MV DecT: 194.88 ms MV E Reid: | | | 0.74 m/s MV E/A Ratio: 1.90 MV PHT: 56.51 ms MVA By PHT: | | | 3.89 cm2 Septal e': 0.14 m/s Septal E/e': 5.08 Lateral e': | | | 0.14 m/s Lateral E/e': 5.12 RAP: 5 mmHg RVSP: 41.12 mmHg | | | TR maxP.12 mmHg TR Vmax: 3.00 m/s Fashion Artist: DBS | | | Authenticated by: ABDIAZIZ NGUYEN MD Report Date/Time: 05-24-2016 | | | 16:17:06 | | + + + + + | Procedure Note | + + | Erasmo Payne Conversion - 11/08/2018 7:43 PM PDT Patient Name: Kim BURDEN of | | : 1985 Performing Physician: ABDIAZIZ NGUYEN, | | MD INDICATIONS F | | /U endocarditis CONCLUSIONS 1. Overall left ventricular systolic function is | | normal with, an EF between 60 - 65 %.2. The right ventricle is mildly enlarged, but | | right ventricular systolic function is normal.3. Moderate tricuspid regurgitation | | present.4. There is mild pulmonary hypertension. The right ventricular systolic | | pressure (pulmonary artery systolic pressure), as measured by Doppler, is 41.1 mm Hg.5. | | No vegetation visualized. FINDINGS--------ECG rhythm: Sinus rhythm.Study: A | | 2-dimensional transthoracic echocardiogram with m-mode, spectral and color flow Doppler | | with LV strain imaging was perfomed at [facility].Study: This was a | | technically good study.Left Ventricle: Overall left ventricular systolic function is | | normal with, an EF between 60 - 65 %.Left Ventricle: The left ventricle cavity size is | | normal.Left Ventricle: Left ventricular wall thickness is normal.Left Ventricle: No | | regional wall motion abnormalities.Left Ventricle: The diastolic filling pattern is | | normal for the age of the patient.Right Ventricle: The right ventricle is mildly | | enlarged measuring between 3.4 - 3.7 cm.Right Ventricle: The right ventricular systolic | | function is normal.Left Atrium: The left atrium is normal in size.Right Atrium: The | | right atrium is normal in size.Aortic Valve: The aortic valve is trileaflet and appears | | structurally normal.Aortic Valve: There is no evidence of aortic regurgitation.Aortic | | Valve: There is no evidence of aortic stenosis.Mitral Valve: The mitral valve is | | normal.Mitral Valve: There is trace mitral regurgitation.Tricuspid Valve: The tricuspid | | valve appears structurally normal.Tricuspid Valve: Moderate tricuspid regurgitation | | present.Tricuspid Valve: There is mild pulmonary hypertension.Tricuspid Valve: The right | | ventricular systolic pressure (pulmonary artery systolic pressure), as measured by | | Doppler, is 41.13mmHg.Pulmonic Valve: The pulmonic valve is normal.Pulmonic Valve: Trace | | pulmonic regurgitation.Pericardium: There is no pericardial effusion.IVC/Hepatic | | Veins: The IVC is normal size (1.5-2.5cm) and collapses >50% with sniff, consistent with | | central venous pressures of 5-10mmHg.Aorta: The aortic root, ascending aorta and aortic | | arch are normal.Pulmonary Artery: The pulmonary artery is normal.Mass: No mass | | visualizedThrombus: No clot visualizedThrombus: No vegetation visualized.Septum: No ASD | | observed.Septum: No VSD observed. MEASUREMENTS Ao asc: 2.77 cmAo Diam: | | 3.31 cmAo sinus: 3.[address] junct: 2.76 cmIVC: 1.61 cmLA Diam: 3.19 cmLA | | Major: 3.63 cmEDV(Teich): 95.03 mlIVSd: 0.71 cmLVIDd: 4.55 cmLVPWd: 0.71 | | cmLVOT Area: 3.47 [id number] Diam: 2.10 cm%FS: 35.71 %EF(Teich): 65.32 %ESV(Teich): | | 32.95 mlLVIDs: 2.92 cmSV(Teich): 62.08 mlRA Major: 4.31 cmRV Major: 7.41 | | cmRVIDd: 3.52 cmLVEF MOD A2C: 60.00 %SV MOD A2C: 54.28 mlLVEF MOD A4C: 69.58 %SV | | MOD A4C: 55.18 mlEF Biplane: 64.73 %LVEDV MOD BP: 85.03 mlLVESV MOD BP: 29.99 | | mlLVEDV MOD A2C: 90.46 mlLVLd A2C: 8.17 cmLVEDV MOD A4C: 79.30 mlLVLd A4C: 8.31 | | cmLVESV MOD A2C: 36.18 mlLVLs A2C: 6.98 cmLVESV MOD A4C: 24.11 mlLVLs A4C: 6.64 | | cmLAESV(A-L): 23.79 mlLAESV Index (A-L): 13.07 ml/m2LAAs A2C: 12.06 [id number] A-L | | A2C: 30.29 mlLALs A2C: 4.07 cmLAAs A4C: 8.97 [id number] A-L A4C: 17.70 mlLALs A4C: | | 3.86 cmRAAs: 13.45 [id number] A-L: 36.70 mlRAESV MOD: 34.87 mlRALs: 4.18 cmAo | | Diam: 3.13 cmLA Diam: 3.01 cmLA/Ao: 0.96TAPSE: 2.65 cmAV maxP.32 mmHgAV | | meanP.96 mmHgAV Vmax: 1.15 m/Sofiya Vmean: 0.80 m/Sofiya VTI: 17.38 cmAVA Vmax: | | 2.80 cm2AVA (VTI): 3.20 [id number] Vmax: 0.00 cm2/m2AVAI (VTI): 0.00 cm2/m2LVOT | | maxP.48 mmHgLVOT meanP.83 mmHgLVSI Dopp: 30.63 ml/m2LVSV Dopp: 55.74 | | mlLVOT Vmax: 0.93 m/sLVOT Vmean: 0.63 m/sLVOT VTI: 16.05 cmMV A Reid: 0.38 m/sMV | | DecT: 194.88 msMV E Reid: 0.74 m/sMV E/A Ratio: 1.90MV PHT: 56.51 msMVA By PHT: | | 3.89 [id number] e': 0.14 m/sSeptal E/e': 5.08Lateral e': 0.14 m/sLateral E/e': | | 5.12RAP: 5 mmHgRVSP: 41.12 mmHgTR maxP.12 mmHgTR Vmax: 3.00 m/s | | Fashion Artist: DBSAuthenticated by: Ninoska CRAIG Date/Time: 05-24-2016 16:17:06 | | IMPRESSION: 1. Overall left ventricular systolic function is normal with, an EF between | | 60 - 65 %.2. The right ventricle is mildly enlarged, but right ventricular systolic | | function is normal.3. Moderate tricuspid regurgitation present.4. There is mild | | pulmonary hypertension. The right ventricular systolic pressure (pulmonary artery | | systolic pressure), as measured by Doppler, is 41.1 mm Hg.5. No vegetation visualized. | |Ao asc: 2.77 cm | |Ao Diam: 3.31 cm | |Ao sinus: 3.34 cm | |Ao st junct: 2.76 cm | |IVC: 1.61 cm | |LA Diam: 3.19 cm | |LA Major: 3.63 cm | |EDV(Teich): 95.03 ml | |IVSd: 0.71 cm | |LVIDd: 4.55 cm | |LVPWd: 0.71 cm | |LVOT Area: 3.47 cm2 | |LVOT Diam: 2.10 cm | |%FS: 35.71 % | |EF(Teich): 65.32 % | |ESV(Teich): 32.95 ml | |LVIDs: 2.92 cm | |SV(Teich): 62.08 ml | |RA Major: 4.31 cm | |RV Major: 7.41 cm | |RVIDd: 3.52 cm | |LVEF MOD A2C: 60.00 % | |SV MOD A2C: 54.28 ml | |LVEF MOD A4C: 69.58 % | |SV MOD A4C: 55.18 ml | |EF Biplane: 64.73 % | |LVEDV MOD BP: 85.03 ml | |LVESV MOD BP: 29.99 ml | |LVEDV MOD A2C: 90.46 ml | |LVLd A2C: 8.17 cm | |LVEDV MOD A4C: 79.30 ml | |LVLd A4C: 8.31 cm | |LVESV MOD A2C: 36.18 ml | |LVLs A2C: 6.98 cm | |LVESV MOD A4C: 24.11 ml | |LVLs A4C: 6.64 cm | |LAESV(A-L): 23.79 ml | |LAESV Index (A-L): 13.07 ml/m2 | |LAAs A2C: 12.06 cm2 | |LAESV A-L A2C: 30.29 ml | |LALs A2C: 4.07 cm | |LAAs A4C: 8.97 cm2 | |LAESV A-L A4C: 17.70 ml | |LALs A4C: 3.86 cm | |RAAs: 13.45 cm2 | |RAESV A-L: 36.70 ml | |RAESV MOD: 34.87 ml | |RALs: 4.18 cm | |Ao Diam: 3.13 cm | |LA Diam: 3.01 cm | |LA/Ao: 0.96 | |TAPSE: 2.65 cm | |AV maxP.32 mmHg | |AV meanP.96 mmHg | |AV Vmax: 1.15 m/s | |AV Vmean: 0.80 m/s | |AV VTI: 17.38 cm | |MAGUI Vmax: 2.80 cm2 | |MAGUI (VTI): 3.20 cm2 | |AVAI Vmax: 0.00 cm2/m2 | |AVAI (VTI): 0.00 cm2/m2 | |LVOT maxP.48 mmHg | |LVOT meanP.83 mmHg | |LVSI Dopp: 30.63 ml/m2 | |LVSV Dopp: 55.74 ml | |LVOT Vmax: 0.93 m/s | |LVOT Vmean: 0.63 m/s | |LVOT VTI: 16.05 cm | |MV A Reid: 0.38 m/s | |MV DecT: 194.88 ms | |MV E Reid: 0.74 m/s | |MV E/A Ratio: 1.90 | |MV PHT: 56.51 ms | |MVA By PHT: 3.89 cm2 | |Septal e': 0.14 m/s | |Septal E/e': 5.08 | |Lateral e': 0.14 m/s | |Lateral E/e': 5.12 | |RAP: 5 mmHg | |RVSP: 41.12 mmHg | |TR maxP.12 mmHg | |TR Vmax: 3.00 m/s | | | |Fashion Artist: DBS | |Authenticated by: ABDIAZIZ NGUYEN MD | |Report Date/Time: 05-24-2016 16:17:06 | | | |IMPRESSION: | |1. Overall left ventricular systolic function is normal with, an EF between 60 - 65 %. | |2. The right ventricle is mildly enlarged, but right ventricular systolic function is dorothy l. | |3. Moderate tricuspid regurgitation present. | |4. There is mild pulmonary hypertension. The right ventricular systolic pressure (pulmonar y artery systolic pressure), as measured by Doppler, is 41.1 mm Hg. | |5. No vegetation visualized. | + + documented in this encounter Visit Diagnoses Not on filedocumented in this encounter"
[~2019-09-28 15:25] MED LIST: CEFTRIAXONE2 G2 IM; HEPARIN 51 UNIT/1 M IV; IBUPROFEN600 MG PO; KEFLEX500 MG PO; LEVAQUIN500 MG PO; METOPROLOL TAR100 MG PO; NAFCILLIN2 GM/100 M IV; NAPROXEN500 MG PO; NICORETTE2 MG MM; OXACILLIN SODIUM2 GM INJ; SENNA-TIME S T1 EACH PO; SENOKOT8.6 MG PO; SEPTRA DS TABL1 EACH PO; SUBOXONE 8 MG-1 EAC1 SL; TOPROL XL100 MG PO; TRAMADOL HCL50 MG PO; TYLENOL325 MG PO; ZOFRAN4 MG PO
--- OUTSIDE RECORDS SUMMARY | 2019-09-28 15:28 | XMS ---
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 Jeanmarie has no Care Guidelines for this patient. ELiDLi VISIT COUNT (12 MO.) 1 SILVESTRE Perez TOTAL 1 NOTE: Visits indicate total known visits. ED/C VISIT TRACKING (12 MO.) 09/28/2019 15:25 SILVESTRE Silva OR TYPE: Emergency COMPLAINT: - FOOT PAIN INPATIENT VISIT TRACKING (12 MO.) No inpatient visits to display in this time frame [email or web address]
[2019-09-28] MEDS ORDERED: CLEOCIN HCL150 MG PO (15:47)
== END 2019-09-28 15:53 | disposition home or self-care (01) ==
LOC: ED 15:25
DX: L03.115 Cellulitis of right lower limb (principal); Z88.8 Allergy status to other drugs, medicaments and biological substances
CPT/HCPCS: 99283

== ENCOUNTER 2020-10-13 18:07 | Emergency (ER) | payer OTHER ==
[~2020-10-13] VITALS: Ht 175.3 cm; Wt 70.4 kg
[~2020-10-13 18:07] MED LIST changes: +CLEOCIN HCL150 MG PO
--- OUTSIDE RECORDS SUMMARY | 2020-10-13 18:10 | XMS ---
PreManage Notification: YANG RIDLEY Security Condominium Manager Events No recent Security Events currently on file CRITERIA MET - [facility] CARE PROVIDERS There are no care providers on record at this time. Jeanmarie has no Care Guidelines for this patient. Kaushik VISIT COUNT (12 MO.) 1 SILVESTRE Perez TOTAL 1 NOTE: Visits indicate total known visits. ED/C VISIT TRACKING (12 MO.) 10/13/2020 18:08 [place]IL[place]RE [place] TYPE: Emergency COMPLAINT: - COLD SYMPTOMS INPATIENT VISIT TRACKING (12 MO.) No inpatient visits to display in this time frame [email or web address]
== END 2020-10-13 22:29 | disposition home or self-care (01) ==
LOC: ED 18:07
DX: U07.1 COVID-19 (principal); Z88.8 Allergy status to other drugs, medicaments and biological substances
CPT/HCPCS: 99283; C9803; U0003

== ENCOUNTER 2022-06-03 16:44 | Emergency (ER) | payer OTHER ==
[~2022-06-03] VITALS: Ht 175.3 cm; Wt 70.4 kg
--- OUTSIDE RECORDS SUMMARY | 2022-06-03 16:46 | XMS ---
PreManage Notification: YANG RIDLEY Security Head Worker Events No recent Security Events currently on file CRITERIA MET - [facility] CARE PROVIDERS -, Susan- Dentist: Raschel Knitting Machine Operator [facility] PHONE: [phone] Jeanmarie has no Care Guidelines for this patient. E.DLi VISIT COUNT (12 MO.) 1 SILVESTRE Perez TOTAL 1 NOTE: Visits indicate total known visits. ED/UCC VISIT TRACKING (12 MO.) 06/03/2022 16:45 SIL[place]RE Silva [place] TYPE: Emergency COMPLAINT: - L THUMB LACERATION INPATIENT VISIT TRACKING (12 MO.) No inpatient visits to display in this time frame [email or web address]
== END 2022-06-03 20:08 | disposition home or self-care (01) ==
LOC: ED 16:44
DX: S61.012A Laceration without foreign body of left thumb without damage to nail, initial encounter (principal); Z88.6 Allergy status to analgesic agent; Z79.899 Other long term (current) drug therapy; W26.8XXA Contact with other sharp object(s), not elsewhere classified, initial encounter; Z23 Encounter for immunization
CPT/HCPCS: 12001; 90471; 90714; 99282-25